=== PATIENT | female | born 1970 | race Caucasian/White ===

== ENCOUNTER 2016-09-07 08:26 | Emergency (ER) | payer OTHER ==
[~2016-09-07] VITALS: Ht 149.9 cm; Wt 113.4 kg
[~2016-09-07 08:26] MED LIST changes: -CATHETER FLUSH 10 ML SYR IV PRN; -IOHEXOL 350 MG/ML 100 ML (OMNIPAQUE 350) VIAL IV ONE; -NS 100 ML (IVPB) BAG IV ONE; -PAMI30VI8 SQ; -PANT40TA2 PO; -PROM25TA14 PO
[2016-09-07] MEDS ORDERED: INSU100V6 SQ ×2 (08:50)
[2016-09-07] MEDS ORDERED: PAMI30VI8 SQ (08:50)
[2016-09-07 09:10] LABS: MEAN CORPUSCULAR HEMOGLOBIN 30 PG (25-34); MEAN CORPUSCULAR VOLUME 89 FL (80-99); RED BLOOD COUNT 5.19 10^6/uL (4.35-5.85); WHITE BLOOD COUNT 14.3 10^3/uL (4.3-11.0)
[2016-09-07 09:11] LABS: BASOPHILS % (AUTO) 0 % (0-10); EOSINOPHILS # (AUTO) 0.2 10^3/uL (0.0-0.3); EOSINOPHILS % (AUTO) 1 % (0-10); LYMPHOCYTES # (AUTO) 3.8 X 10^3 (1.0-4.0); LYMPHOCYTES % (AUTO) 27 % (12-44); MEAN CORPUSCULAR HGB CONC 34 G/DL (32-36); MEAN PLATELET VOLUME 10.8 FL (7.4-10.4); MONOCYTES # (AUTO) 0.7 X 10^3 (0.0-1.0); MONOCYTES % (AUTO) 5 % (0-12); NEUTROPHILS # (AUTO) 9.6 X 10^3 (1.8-7.8); NEUTROPHILS % (AUTO) 67 % (42-75); PLATELET COUNT 317 10^3/uL (130-400); RED CELL DISTRIBUTION WIDTH 14.2 % (10.0-14.5)
[2016-09-07 09:12] LABS: BAND NEUTROPHILS 2 %; BASOPHILS % (MANUAL) 0 %; EOSINOPHILS % (MANUAL) 0 %; LYMPHOCYTES % (MANUAL) 24 %; NEUTROPHILS % (MANUAL) 70 %; REACTIVE LYMPHOCYTES 1 %
--- NOTE | 2016-09-07 09:23 | Diagnostic Imaging Report ---
INDICATION: Chest pain, shortness of air. Compared 05/06/2016. FINDINGS: No focal consolidation, effusion, pneumothorax, or failure pattern. IMPRESSION: No acute-appearing abnormality. Dictated by: Dictated on workstation # [id number]
[2016-09-07 09:30] LABS: ALANINE AMINOTRANSFERASE 57 U/L (0-55); ALBUMIN 3.9 G/DL (3.2-4.5); ANION GAP 13 MMOL/L (5-14); ASPARTATE AMINO TRANSFERASE 39 U/L (5-34); BILIRUBIN,TOTAL 0.6 MG/DL (0.1-1.0); BLOOD UREA NITROGEN 7 MG/DL (7-18); BUN/CREATININE RATIO 10; CALCIUM 9.2 MG/DL (8.5-10.1); CARBON DIOXIDE 24 MMOL/L (21-32); CHLORIDE 99 MMOL/L (98-107); GFR ESTIMATED > 60; GLUCOSE 300 MG/DL (70-105); SODIUM 136 MMOL/L (135-145); TOTAL PROTEIN 6.8 G/DL (6.4-8.2)
[2016-09-07 09:36] LABS: TROPONIN I < 0.30 NG/ML (<0.30)
--- NOTE | 2016-09-07 11:09 | ED Chest Pain ---
General Chief Complaint: Chest Pain Stated Complaint: CHEST PAIN Nursing Triage Note: pt reports cp starting this am after having out patient ct with contrast. Nursing Sepsis Screen: No Definite Risk Source: patient Exam Limitations: no limitations History of Present Illness Time seen by provider: 11:03 Initial Comments The patient is a 45-year-old white female patient of Dr. Vences. She had a previously scheduled abdominal CT scan this morning. We are having difficulty getting a complete report as there is a PACS problem with the Internet today. As she completed the CT scan she began to complain of central chest pain. She states there is no past history of this. She weighs 250 pounds and is short period. There is a history of diabetes as well. She smoked formerly but quit about 2 and half years ago. She still has regular menstrual periods Timing/Duration: 1-3 hours Severity/Quality: mild Location: central Prior CP/Workup: no prior chest pain Associated Symptoms: abdominal pain Allergies and Home Medications Allergies Coded Allergies: fentanyl (Verified Allergy, Intermediate, HIVES, 07/15/15) ondansetron (Verified Allergy, Intermediate, HEADACHES, 07/15/15) Sulfa (Sulfonamide Antibiotics) (Unverified Allergy, Mild, rash, 09/09/09) doxycycline (Unverified Allergy, Mild, rash, 09/09/09) Penicillins (Unverified Adverse Reaction, Intermediate, hives, 11/05/12) Home Medications Bumetanide 1 Mg Tablet, 1 MG PO DAILY, (Reported) Insulin Glargine,Hum.rec.anlog 100 Unit/1 Ml Vial, 22 UNIT SQ DAILY, (Reported) Insulin Glargine,Hum.rec.anlog 100 Unit/1 Ml Vial, 35 UNIT SQ HS, (Reported) Insulin Lispro 100 Unit/1 Ml Cartridge, 10 UNIT SQ AC, (Reported) Metoprolol Succinate 100 Mg Tab.er.24h, 100 MG PO DAILY, (Reported) Spironolactone 50 Mg Tablet, 50 MG PO BID, (Reported) Review of Systems Constitutional: see HPI EENTM: No Symptoms Reported Respiratory: No Symptoms Reported Cardiovascular: See HPI, Chest Pain Gastrointestinal: Abdominal Pain Genitourinary: No Symptoms Reported Musculoskeletal: no symptoms reported Skin: no symptoms reported Psychiatric/Neurological: No Symptoms Reported Endocrine: No Symptoms Reported Hematologic/Lymphatic: No Symptoms Reported Past Rkhwhmy-Gbuxdd-Arbvho Hx Patient Social History Alcohol Use: Rarely Uses Recreational Drug Use: No Smoking Status: Former Smoker Type Used: Cigarettes Former Smoker/When Quit: Jul 20, 2014 Recent Foreign Travel: No Contact w/Someone Who Travel: No Recent Infectious Disease Expo: No Recent Hopitalizations: No Immunizations Up To Date Tetanus Booster (TDap): Unknown Date of Pneumonia Vaccine: Mar 23, 2016 Date of Influenza Vaccine: Apr 13, 2016 Seasonal Allergies Seasonal Allergies: No Surgeries HX Surgeries: Yes (LIPOMA FROM NECK) Surgeries: Section, Gallbladder, Tonsillectomy Respiratory Hx Respiratory Disorders: Yes (USES XOPENEX IF NEEDED-HASNT USED IN LAST COUPLE YEARS) Respiratory Disorders: Asthma, Sleep Apnea Cardiovascular Hx Cardiac Disorders: Yes (HX TACHYCARDIA) Cardiac Disorders: Hypertension Neurological Hx Neurological Disorders: Yes Neurological Disorders: Neuropathy Reproductive System Hx Reproductive Disorders: Yes Sexually Transmitted Disease: No HIV/AIDS: No Female Reproductive Disorders: Polycystic Ovarian Dis Genitourinary Hx Genitourinary Disorders: Yes Genitourinary Disorders: UTI-Chronic Gastrointestinal Hx Gastrointestinal Disorders: Yes Gastrointestinal Disorders: Ulcer Musculoskeletal Hx Musculoskeletal Disorders: Yes Musculoskeletal Disorders: Arthritis Endocrine Hx Endocrine Disorders: Yes Endocrine Disorders: Diabetes, Insulin dep HEENT HX ENT Disorders: Yes (GLASSES) Loss of Vision: Bilateral Hearing Impairment: Denies Cancer Hx Cancer: No Psychosocial Hx Psychiatric Problems: No Integumentary HX Skin/Integumentary Disorder: No Blood Transfusions Hx Blood Disorders: No Adverse Reaction to a Blood Tr: No Family Medical History Significant Family History: No Pertinent Family Hx Physical Exam Vital Signs Vital Sign - Last 12Hours 09/07/16 08:43 Temp 97.6 Pulse 99 Resp 18 B/P (MAP) 116/68 Pulse Ox 96 O2 Delivery Room Air Capillary Refill : Less Than 3 Seconds General Appearance: No Apparent Distress HEENT: Normal ENT Inspection Neck: Normal Inspection Respiratory: Chest Non Tender, Lungs Clear, Normal Breath Sounds, No Accessory Muscle Use, No Respiratory Distress Cardiovascular: Regular Rate, Rhythm, No Edema, No Gallop, No JVD, No Murmur, Normal Peripheral Pulses Gastrointestinal: Tenderness Extremity: Normal Capillary Refill, Normal Inspection, Normal Range of Motion, Non Tender, No Calf Tenderness, No Pedal Edema Neurologic/Psychiatric: Alert Skin: Normal Color Lymphatic: No Adenopathy Progress/Results/Core Measures Results/Orders Lab Results Laboratory Tests Test 09/07/16 08:41 Range/Units White Blood Count 14.3 H 4.3-11.0 10^3/uL Red Blood Count 5.19 4.35-5.85 10^6/uL Hemoglobin 15.5 11.5-16.0 G/DL Hematocrit 46 35-52 % Mean Corpuscular Volume 89 80-99 FL Mean Corpuscular Hemoglobin 30 25-34 PG Mean Corpuscular Hemoglobin Concent 34 32-36 G/DL Red Cell Distribution Width 14.2 10.0-14.5 % Platelet Count 317 130-400 10^3/uL Mean Platelet Volume 10.8 H 7.4-10.4 FL Neutrophils (%) (Auto) 67 42-75 % Lymphocytes (%) (Auto) 27 12-44 % Monocytes (%) (Auto) 5 0-12 % Eosinophils (%) (Auto) 1 0-10 % Basophils (%) (Auto) 0 0-10 % Neutrophils # (Auto) 9.6 H 1.8-7.8 X 10^3 Lymphocytes # (Auto) 3.8 1.0-4.0 X 10^3 Monocytes # (Auto) 0.7 0.0-1.0 X 10^3 Eosinophils # (Auto) 0.2 0.0-0.3 10^3/uL Basophils # (Auto) 0.0 0.0-0.1 10^3/uL Neutrophils % (Manual) 70 % Lymphocytes % (Manual) 24 % Monocytes % (Manual) 3 % Eosinophils % (Manual) 0 % Basophils % (Manual) 0 % Band Neutrophils 2 % Reactive Lymphocytes 1 % Toxic Granulation 1+ Blood Morphology Comment NORMAL Sodium Level 136 135-145 MMOL/L Potassium Level 4.0 3.6-5.0 MMOL/L Chloride Level 99 98-107 MMOL/L Carbon Dioxide Level 24 21-32 MMOL/L Anion Gap 13 5-14 MMOL/L Blood Urea Nitrogen 7 7-18 MG/DL Creatinine 0.70 0.60-1.30 MG/DL Estimat Glomerular Filtration Rate > 60 BUN/Creatinine Ratio 10 Glucose Level 300 H 70-105 MG/DL Calcium Level 9.2 8.5-10.1 MG/DL Total Bilirubin 0.6 0.1-1.0 MG/DL Aspartate Amino Transf (AST/SGOT) 39 H 5-34 U/L Alanine Aminotransferase (ALT/SGPT) 57 H 0-55 U/L Alkaline Phosphatase 121 40-136 U/L Troponin I < 0.30 <0.30 NG/ML Total Protein 6.8 6.4-8.2 G/DL Albumin 3.9 3.2-4.5 G/DL My Orders Orders - SHERI MONTERO MD Ekg Tracing (09/07/16 08:57) Cbc With Automated Diff (09/07/16 08:57) Comprehensive Metabolic Panel (09/07/16 08:57) Troponin I (09/07/16 08:57) Chest 1 View, Ap/Pa Only (09/07/16 08:57) Manual Differential (09/07/16 08:41) Vital Signs/I&O Vital Sign - Last 12Hours 09/07/16 09/07/16 08:43 08:47 Temp 97.6 Pulse 99 Resp 18 B/P (MAP) 116/68 Pulse Ox 96 O2 Delivery Room Air Room Air Blood Pressure Mean: 84 Departure Communication Progress Notes EKG shows possible left atrial enlargement but is otherwise normal. Laboratory shows a minimum elevation of her transaminases. Troponin was negative. A phone report of the dictation was read to us from [place]. The patient has a previous cholecystectomy with some generalized enlargement of liver consistent with fatty liver. There was a supra umbilical hernia with some abdominal contents in the hernia sac. Impression Impression: Primary Impression: chest pain not myocardial Additional Impression: preliminary evidence of fatty liver Disposition: HOME, SELF-CARE Condition: Stable/Unchanged Departure-Patient Inst. Decision time for Depature: 11:10 Referrals: BIBIANA HINDS MD (PCP/Family) Primary Care Physician Patient Instructions: Chest Pain That Is Not Caused by the Heart (DC) Add. Discharge Instructions: All discharge instructions reviewed with patient and/or family. Voiced understanding. See your provider for full discussion of the CT findings. SHERI MONTERO MD Sep 07, 2016 11:09
[2016-09-07 11:26] VITALS: BP 123/71
--- OUTSIDE RECORDS SUMMARY | 2016-09-10 08:31 | XMS REPORT | Continuity of Care Document ---
Author Author [facility] Organization [facility] Address Unknown Phone Unavailable Care Team Providers Care Associate Spa Director Name Role Phone SELINA MICHELLE Betty RIVER PP Insurance Providers Payer Name Policy Number Subscriber Name Relationship [facility] [id number] Teresa Guan 01 Self / Same As Patient Advance Directives Directive Response Recorded Date Advance Directives N 11/28/12 10:58pm Organ Donor N 11/28/12 10:58pm Problems No Known Problems or Medical conditions. Family History History Response Recorded Date/Time Hx Family Cancer N 11/05/12 8:44pm Hx Family Cardiac Disorders Y 11/05/12 8: 44pm Social History History Response Recorded Date/Time Alcohol Use Rarely Uses 11/28/12 10:58pm Recreational Drug Use N 11/28/12 10:58pm Allergies, Adverse Reactions, Alerts Allergen Type Severity Reaction Last Updated diphenhydramine HCl Adverse Reaction Intermediate unable to breathe 11/05/12 Penicillins Adverse Reaction Intermediate hives 11/05/12 Sulfa(Sulfonamide Antibiotics) Allergy Mild rash 09/09/09 doxycycline Allergy Mild rash 09/09/09 Medications Medication Dose Units Route Sig Qty Days Hydrocodone Bit/Acetaminophen (Hydrocodon-Acetaminophen 5-325) 1 Each PO Q4H PRN 10 Acetaminophen/Hydrocodone Bitart (Vicodin 5-500 Tablet) 1 - 2 Each PO Q4HR PRN 30 Acetaminophen/Hydrocodone Bitart (Vicodin 5-500 Tablet) 1 - 2 Each PO Q4HR PRN 20 Immunizations Name Given Type Date of Pneumonia Vaccine 06/18/09 H Response Recorded Date/Time Status not known Unknown Results No Known Relevant Diagnostic Tests, Laboratory Data and/or Discharge Summary. Procedures Procedure Code Date LAPAROSCOPIC CHOLECYSTECTOMY 51.23 Encounters Encounter Location Date/Time Departed Emergency Room [facility] 10:54pm Pre-registered Emergency Room [facility] 11/28/12 7:50pm Discharged Inpatient [facility] 8:13pm
--- OUTSIDE RECORDS SUMMARY | 2016-09-10 08:31 | XMS REPORT | Continuity of Care Document ---
Author Author [facility] Address Unknown Phone Unavailable Allergies Active Description Code Type Severity Reaction Onset Reported/Identified Relationship to Patient Clinical Status Yes Claritin Drug Allergy N/A N/A 2008 Yes codeine Drug Allergy N/A N/A 2008 Yes doxycycline Drug Allergy N/A N/A 2008 Yes emycin OA N/A N/A 2008 Yes Penicillins Drug Allergy N/A N/A 2008 Yes Zyrtec Drug Allergy N/A N/A 2008 Yes Claritin Drug Allergy 2008 Yes codeine Drug Allergy 2008 Yes doxycycline Drug Allergy 2008 Yes emycin OA Yes Penicillins Drug Allergy 2008 Yes sulfa drug Drug Allergy 2008 Yes Zyrtec Drug Allergy 2008 Yes doxycycline [id number] Drug Allergy Mild rash 09/09/2009 Yes Sulfa (Sulfonamide Antibiotics) [id number] Drug Allergy Mild rash 09/09/2009 Yes diphenhydramine HCl [id number] Drug Allergy Moderate unable to breat 11/05/2012 Yes Penicillins [id number] Drug Allergy Moderate hives 11/05/2012 Yes fentanyl [id number] Drug Allergy Moderate HIVES 07/15/2015 Yes ondansetron [id number] Drug Allergy Moderate HEADACHES 07/15/2015 Medications Problems Date Dx Coded Attending Type Code Diagnosis Diagnosed By 12/31/2007 704.1 excessive facial or body hair (hirsutism) 12/31/2007 ITZ LIMA DO 704.1 excessive facial or body hair (hirsutism) 12/31/2007 704.1 excessive facial or body hair (hirsutism) 12/31/2007 704.1 excessive facial or body hair (hirsutism) 12/31/2007 704.1 excessive facial or body hair (hirsutism) 12/31/2007 704.1 excessive facial or body hair (hirsutism) 12/31/2007 704.1 excessive facial or body hair (hirsutism) 12/31/2007 ITZ LIMA DO 704.1 excessive facial or body hair (hirsutism) 02/11/2008 599.0 Urinary Tract Infection 02/11/2008 788.1 Dysuria 02/11/2008 ITZ LIMA DO 599.0 Urinary Tract Infection 02/11/2008 ITZ LIMA DO 788.1 Dysuria 02/11/2008 599.0 Urinary Tract Infection 02/11/2008 788.1 Dysuria 02/11/2008 599.0 Urinary Tract Infection 02/11/2008 788.1 Dysuria 02/11/2008 599.0 Urinary Tract Infection 02/11/2008 788.1 Dysuria 02/11/2008 599.0 Urinary Tract Infection 02/11/2008 788.1 Dysuria 02/11/2008 599.0 Urinary Tract Infection 02/11/2008 788.1 Dysuria 02/11/2008 ITZ LIMA DO 599.0 Urinary Tract Infection 02/11/2008 ITZ LIMA DO 788.1 Dysuria 2008 493.00 EXTRINSIC ASTHMA UNSPECIFIED 2008 ITZ LIMA DO 493.00 EXTRINSIC ASTHMA UNSPECIFIED 2008 493.00 EXTRINSIC ASTHMA UNSPECIFIED 2008 493.00 EXTRINSIC ASTHMA UNSPECIFIED 2008 493.00 EXTRINSIC ASTHMA UNSPECIFIED 2008 493.00 EXTRINSIC ASTHMA UNSPECIFIED 2008 493.00 EXTRINSIC ASTHMA UNSPECIFIED 2008 ITZ LIMA DO 493.00 EXTRINSIC ASTHMA UNSPECIFIED 11/02/2008 465.9 Upper Respiratory Infection 11/02/2008 ITZ LIMA DO 465.9 Upper Respiratory Infection 11/02/2008 465.9 Upper Respiratory Infection 11/02/2008 465.9 Upper Respiratory Infection 11/02/2008 465.9 Upper Respiratory Infection 11/02/2008 465.9 Upper Respiratory Infection 11/02/2008 465.9 Upper Respiratory Infection 11/02/2008 ITZ LIMA DO 465.9 Upper Respiratory Infection 12/05/2008 251.1 HYPERINSULINISM (EXOGENOUS) 12/05/2008 783.1 Recent Weight Gain (___ Lbs) [reported] 12/05/2008 ITZ LIMA DO 251.1 HYPERINSULINISM (EXOGENOUS) 12/05/2008 ITZ LIMA DO 783.1 Recent Weight Gain (___ Lbs) [reported] 12/05/2008 251.1 HYPERINSULINISM (EXOGENOUS) 12/05/2008 783.1 Recent Weight Gain (___ Lbs) [reported] 12/05/2008 251.1 HYPERINSULINISM (EXOGENOUS) 12/05/2008 783.1 Recent Weight Gain (___ Lbs) [reported] 12/05/2008 251.1 HYPERINSULINISM (EXOGENOUS) 12/05/2008 783.1 Recent Weight Gain (___ Lbs) [reported] 12/05/2008 251.1 HYPERINSULINISM (EXOGENOUS) 12/05/2008 783.1 Recent Weight Gain (___ Lbs) [reported] 12/05/2008 251.1 HYPERINSULINISM (EXOGENOUS) 12/05/2008 783.1 Recent Weight Gain (___ Lbs) [reported] 12/05/2008 ITZ LIMA DO 251.1 HYPERINSULINISM (EXOGENOUS) 12/05/2008 ITZ LIMA DO 783.1 Recent Weight Gain (___ Lbs) [reported] 02/23/2009 V03.82 Pcv7 Pcv23, Streptococcus Pneumoniae [pneumococcus] 02/23/2009 ITZ LIMA DO V03.82 Pcv7 Pcv23, Streptococcus Pneumoniae [ pneumococcus] 02/23/2009 V03.82 Pcv7 Pcv23, Streptococcus Pneumoniae [pneumococcus] 02/23/2009 V03.82 Pcv7 Pcv23, Streptococcus Pneumoniae [pneumococcus] 02/23/2009 V03.82 Pcv7 Pcv23, Streptococcus Pneumoniae [pneumococcus] 02/23/2009 V03.82 Pcv7 Pcv23, Streptococcus Pneumoniae [pneumococcus] 02/23/2009 V03.82 Pcv7 Pcv23, Streptococcus Pneumoniae [pneumococcus] 02/23/2009 ITZ LIMA DO V03.82 Pcv7 Pcv23, Streptococcus Pneumoniae [ pneumococcus] 03/02/2009 724.1 Midback Pain 03/02/2009 ITZ LIMA DO 724.1 Midback Pain 03/02/2009 724.1 Midback Pain 03/02/2009 724.1 Midback Pain 03/02/2009 724.1 Midback Pain 03/02/2009 724.1 Midback Pain 03/02/2009 724.1 Midback Pain 03/02/2009 ITZ LIMA DO 724.1 Midback Pain 05/21/2009 786.2 Cough 05/21/2009 ITZ LIMA DO 786.2 Cough 05/21/2009 786.2 Cough 05/21/2009 786.2 Cough 05/21/2009 786.2 Cough 05/21/2009 786.2 Cough 05/21/2009 786.2 Cough 05/21/2009 ITZ LIMA DO 786.2 Cough 07/23/2009 724.2 Lower Back Pain 07/23/2009 959.19 Injury, Other And Unspecified, Other Sites Of Trunk 07/23/2009 ITZ LIMA DO 724.2 Lower Back Pain 07/23/2009 ITZ LIMA DO 959.19 Injury, Other And Unspecified, Other Sites Of Trunk 07/23/2009 724.2 Lower Back Pain 07/23/2009 959.19 Injury, Other And Unspecified, Other Sites Of Trunk 07/23/2009 724.2 Lower Back Pain 07/23/2009 959.19 Injury, Other And Unspecified, Other Sites Of Trunk 07/23/2009 724.2 Lower Back Pain 07/23/2009 959.19 Injury, Other And Unspecified, Other Sites Of Trunk 07/23/2009 724.2 Lower Back Pain 07/23/2009 959.19 Injury, Other And Unspecified, Other Sites Of Trunk 07/23/2009 724.2 Lower Back Pain 07/23/2009 959.19 Injury, Other And Unspecified, Other Sites Of Trunk 07/23/2009 ITZ LIMA DO 724.2 Lower Back Pain 07/23/2009 ITZ LIMA DO 959.19 Injury, Other And Unspecified, Other Sites Of Trunk 08/26/2009 787.02 Nausea Alone 08/26/2009 ITZ LIMA DO 787.02 Nausea Alone 08/26/2009 787.02 Nausea Alone 08/26/2009 787.02 Nausea Alone 08/26/2009 787.02 Nausea Alone 08/26/2009 787.02 Nausea Alone 08/26/2009 787.02 Nausea Alone 08/26/2009 LIMA KRISTIAN MORENOA K 787.02 Nausea Alone 09/11/2009 719.46 Pain In Joint, Lower Leg 09/11/2009 959.7 Injury, Other And Unspecified, Knee, Leg, Ankle, And Foot 09/11/2009 E987.9 Falling From Unspecified Site, Undetermined Whether Accidentally Or Purposely Inflicted 09/11/2009 ITZ LIMA DO 719.46 Pain In Joint, Lower Leg 09/11/2009 LIMA DOITZ K 959.7 Injury, Other And Unspecified, Knee, Leg, Ankle, And Foot 09/11/2009 LIMA KRISTIAN MORENOA Tova E987.9 Falling From Unspecified Site, Undetermined Whether Accidentally Or Purposely Inflicted 09/11/2009 719.46 Pain In Joint, Lower Leg 09/11/2009 959.7 Injury, Other And Unspecified, Knee, Leg, Ankle, And Foot 09/11/2009 E987.9 Falling From Unspecified Site, Undetermined Whether Accidentally Or Purposely Inflicted 09/11/2009 719.46 Pain In Joint, Lower Leg 09/11/2009 959.7 Injury, Other And Unspecified, Knee, Leg, Ankle, And Foot 09/11/2009 E987.9 Falling From Unspecified Site, Undetermined Whether Accidentally Or Purposely Inflicted 09/11/2009 719.46 Pain In Joint, Lower Leg 09/11/2009 959.7 Injury, Other And Unspecified, Knee, Leg, Ankle, And Foot 09/11/2009 E987.9 Falling From Unspecified Site, Undetermined Whether Accidentally Or Purposely Inflicted 09/11/2009 719.46 Pain In Joint, Lower Leg 09/11/2009 959.7 Injury, Other And Unspecified, Knee, Leg, Ankle, And Foot 09/11/2009 E987.9 Falling From Unspecified Site, Undetermined Whether Accidentally Or Purposely Inflicted 09/11/2009 719.46 Pain In Joint, Lower Leg 09/11/2009 959.7 Injury, Other And Unspecified, Knee, Leg, Ankle, And Foot 09/11/2009 E987.9 Falling From Unspecified Site, Undetermined Whether Accidentally Or Purposely Inflicted 09/11/2009 ITZ LIMA DO 719.46 Pain In Joint, Lower Leg 09/11/2009 ITZ LIMA DO 959.7 Injury, Other And Unspecified, Knee, Leg, Ankle, And Foot 09/11/2009 ITZ LIMA DO E987.9 Falling From Unspecified Site, Undetermined Whether Accidentally Or Purposely Inflicted 10/16/2009 278.00 OBESITY, UNSPECIFIED 10/16/2009 692.9 Contact Dermatitis And Other Eczema, Unspecified Cause 10/16/2009 ITZ LIMA DO 278.00 OBESITY, UNSPECIFIED 10/16/2009 ITZ LIMA DO 692.9 Contact Dermatitis And Other Eczema, Unspecified Cause 10/16/2009 278.00 OBESITY, UNSPECIFIED 10/16/2009 692.9 Contact Dermatitis And Other Eczema, Unspecified Cause 10/16/2009 278.00 OBESITY, UNSPECIFIED 10/16/2009 692.9 Contact Dermatitis And Other Eczema, Unspecified Cause 10/16/2009 278.00 OBESITY, UNSPECIFIED 10/16/2009 692.9 Contact Dermatitis And Other Eczema, Unspecified Cause 10/16/2009 278.00 OBESITY, UNSPECIFIED 10/16/2009 692.9 Contact Dermatitis And Other Eczema, Unspecified Cause 10/16/2009 278.00 OBESITY, UNSPECIFIED 10/16/2009 692.9 Contact Dermatitis And Other Eczema, Unspecified Cause 10/16/2009 ITZ LIMA DO 278.00 OBESITY, UNSPECIFIED 10/16/2009 ITZ LIMA DO 692.9 Contact Dermatitis And Other Eczema, Unspecified Cause 04/20/2011 305.1 NONDEPENDENT TOBACCO USE DISORDER 04/20/2011 V72.31 Agency Development Manager Exam, Routine 04/20/2011 V76.2 Cervical Cancer Screening (pap Smear) 04/20/2011 ITZ LIMA DO 305.1 NONDEPENDENT TOBACCO USE DISORDER 04/20/2011 ITZ LIMA DO V72.31 Agency Development Manager Exam, Routine 04/20/2011 ITZ LIMA DO V76.2 Cervical Cancer Screening (pap Smear) 04/20/2011 305.1 NONDEPENDENT TOBACCO USE DISORDER 04/20/2011 V72.31 Agency Development Manager Exam, Routine 04/20/2011 V76.2 Cervical Cancer Screening (pap Smear) 04/20/2011 305.1 NONDEPENDENT TOBACCO USE DISORDER 04/20/2011 V72.31 Agency Development Manager Exam, Routine 04/20/2011 V76.2 Cervical Cancer Screening (pap Smear) 04/20/2011 305.1 NONDEPENDENT TOBACCO USE DISORDER 04/20/2011 V72.31 Agency Development Manager Exam, Routine 04/20/2011 V76.2 Cervical Cancer Screening (pap Smear) 04/20/2011 305.1 NONDEPENDENT TOBACCO USE DISORDER 04/20/2011 V72.31 Agency Development Manager Exam, Routine 04/20/2011 V76.2 Cervical Cancer Screening (pap Smear) 04/20/2011 305.1 NONDEPENDENT TOBACCO USE DISORDER 04/20/2011 V72.31 Agency Development Manager Exam, Routine 04/20/2011 V76.2 Cervical Cancer Screening (pap Smear) 04/20/2011 ITZ LIMA DO 305.1 NONDEPENDENT TOBACCO USE DISORDER 04/20/2011 ITZ LIMA DO V72.31 Agency Development Manager Exam, Routine 04/20/2011 ITZ LIMA DO V76.2 Cervical Cancer Screening (pap Smear) 06/05/2011 847.9 Sprain/strain Back Unspec 06/05/2011 ITZ LIMA DO 847.9 Sprain/strain Back Unspec 06/05/2011 847.9 Sprain/strain Back Unspec 06/05/2011 847.9 Sprain/strain Back Unspec 06/05/2011 847.9 Sprain/strain Back Unspec 06/05/2011 847.9 Sprain/strain Back Unspec 06/05/2011 847.9 Sprain/strain Back Unspec 06/05/2011 ITZ LIMA DO 847.9 Sprain/strain Back Unspec 07/25/2011 381.81 Eustachian Tube Dysfunction 07/25/2011 780.79 Malaise And Fatigue 07/25/2011 ITZ LIMA DO 381.81 Eustachian Tube Dysfunction 07/25/2011 ITZ LIMA DO 780.79 Malaise And Fatigue 07/25/2011 381.81 Eustachian Tube Dysfunction 07/25/2011 780.79 Malaise And Fatigue 07/25/2011 381.81 Eustachian Tube Dysfunction 07/25/2011 780.79 Malaise And Fatigue 07/25/2011 381.81 Eustachian Tube Dysfunction 07/25/2011 780.79 Malaise And Fatigue 07/25/2011 381.81 Eustachian Tube Dysfunction 07/25/2011 780.79 Malaise And Fatigue 07/25/2011 381.81 Eustachian Tube Dysfunction 07/25/2011 780.79 Malaise And Fatigue 07/25/2011 ITZ LIMA DO 381.81 Eustachian Tube Dysfunction 07/25/2011 ITZ LIMA DO 780.79 Malaise And Fatigue 08/05/2011 288.60 Leukocytosis 08/05/2011 ITZ LIMA DO 288.60 Leukocytosis 08/05/2011 288.60 Leukocytosis 08/05/2011 288.60 Leukocytosis 08/05/2011 288.60 Leukocytosis 08/05/2011 288.60 Leukocytosis 08/05/2011 288.60 Leukocytosis 08/05/2011 ITZ LIMA DO 288.60 Leukocytosis 08/18/2011 487.1 Influenza 08/18/2011 786.2 Cough 08/18/2011 ITZ LIMA DO 487.1 Influenza 08/18/2011 ITZ LIMA DO 786.2 Cough 08/18/2011 487.1 Influenza 08/18/2011 786.2 Cough 08/18/2011 487.1 Influenza 08/18/2011 786.2 Cough 08/18/2011 487.1 Influenza 08/18/2011 786.2 Cough 08/18/2011 487.1 Influenza 08/18/2011 786.2 Cough 08/18/2011 487.1 Influenza 08/18/2011 786.2 Cough 08/18/2011 ITZ LIMA DO 487.1 Influenza 08/18/2011 ITZ LIMA DO 786.2 Cough 01/11/2012 256.4 POLYCYSTIC OVARIAN SYNDROME 01/11/2012 626.8 DYSFUNCTIONAL UTERINE BLEEDING 01/11/2012 ITZ LIMA DO 256.4 POLYCYSTIC OVARIAN SYNDROME 01/11/2012 ITZ LIMA DO 626.8 DYSFUNCTIONAL UTERINE BLEEDING 01/11/2012 256.4 POLYCYSTIC OVARIAN SYNDROME 01/11/2012 626.8 DYSFUNCTIONAL UTERINE BLEEDING 01/11/2012 256.4 POLYCYSTIC OVARIAN SYNDROME 01/11/2012 626.8 DYSFUNCTIONAL UTERINE BLEEDING 01/11/2012 256.4 POLYCYSTIC OVARIAN SYNDROME 01/11/2012 626.8 DYSFUNCTIONAL UTERINE BLEEDING 01/11/2012 256.4 POLYCYSTIC OVARIAN SYNDROME 01/11/2012 626.8 DYSFUNCTIONAL UTERINE BLEEDING 01/11/2012 256.4 POLYCYSTIC OVARIAN SYNDROME 01/11/2012 626.8 DYSFUNCTIONAL UTERINE BLEEDING 01/11/2012 ITZ LIMA DO 256.4 POLYCYSTIC OVARIAN SYNDROME 01/11/2012 ITZ LIMA DO 626.8 DYSFUNCTIONAL UTERINE BLEEDING 01/29/2012 626.4 IRREGULAR MENSTRUAL CYCLE 01/29/2012 724.5 BACKACHE UNSPECIFIED 01/29/2012 783.1 recent weight gain (___ lbs) [reported] 01/29/2012 V65.3 COUNSELING - DIETARY 01/29/2012 V65.42 COUNSELING - SMOKING CESSATION 01/29/2012 ITZ LIMA DO 626.4 IRREGULAR MENSTRUAL CYCLE 01/29/2012 ITZ LIMA DO 724.5 BACKACHE UNSPECIFIED 01/29/2012 ITZ LIMA DO 783.1 recent weight gain (___ lbs) [reported] 01/29/2012 ITZ LMIA DO V65.3 COUNSELING - DIETARY 01/29/2012 ITZ LIMA DO V65.42 COUNSELING - SMOKING CESSATION 01/29/2012 626.4 IRREGULAR MENSTRUAL CYCLE 01/29/2012 724.5 BACKACHE UNSPECIFIED 01/29/2012 783.1 recent weight gain (___ lbs) [reported] 01/29/2012 V65.3 COUNSELING - DIETARY 01/29/2012 V65.42 COUNSELING - SMOKING CESSATION 01/29/2012 626.4 IRREGULAR MENSTRUAL CYCLE 01/29/2012 724.5 BACKACHE UNSPECIFIED 01/29/2012 783.1 recent weight gain (___ lbs) [reported] 01/29/2012 V65.3 COUNSELING - DIETARY 01/29/2012 V65.42 COUNSELING - SMOKING CESSATION 01/29/2012 626.4 IRREGULAR MENSTRUAL CYCLE 01/29/2012 724.5 BACKACHE UNSPECIFIED 01/29/2012 783.1 recent weight gain (___ lbs) [reported] 01/29/2012 V65.3 COUNSELING - DIETARY 01/29/2012 V65.42 COUNSELING - SMOKING CESSATION 01/29/2012 626.4 IRREGULAR MENSTRUAL CYCLE 01/29/2012 724.5 BACKACHE UNSPECIFIED 01/29/2012 783.1 recent weight gain (___ lbs) [reported] 01/29/2012 V65.3 COUNSELING - DIETARY 01/29/2012 V65.42 COUNSELING - SMOKING CESSATION 01/29/2012 626.4 IRREGULAR MENSTRUAL CYCLE 01/29/2012 724.5 BACKACHE UNSPECIFIED 01/29/2012 783.1 recent weight gain (___ lbs) [reported] 01/29/2012 V65.3 COUNSELING - DIETARY 01/29/2012 V65.42 COUNSELING - SMOKING CESSATION 01/29/2012 LIMA DO ITZ K 626.4 IRREGULAR MENSTRUAL CYCLE 01/29/2012 LIMA DO ITZ K 724.5 BACKACHE UNSPECIFIED 01/29/2012 CLARENCE MORENO ITZ K 783.1 recent weight gain (___ lbs) [reported] 01/29/2012 LIMA DO ITZ K V65.3 COUNSELING - DIETARY 01/29/2012 LIMA DO ITZ K V65.42 COUNSELING - SMOKING CESSATION 06/10/2012 ITZ LIMA DO 719.47 PAIN IN JOINT INVOLVING ANKLE AND FOOT 06/10/2012 719.47 PAIN IN JOINT INVOLVING ANKLE AND FOOT 06/10/2012 719.47 PAIN IN JOINT INVOLVING ANKLE AND FOOT 06/10/2012 719.47 PAIN IN JOINT INVOLVING ANKLE AND FOOT 06/10/2012 719.47 PAIN IN JOINT INVOLVING ANKLE AND FOOT 06/10/2012 719.47 PAIN IN JOINT INVOLVING ANKLE AND FOOT 06/10/2012 LIMA DO ITZ K 719.47 PAIN IN JOINT INVOLVING ANKLE AND FOOT 07/22/2012 466.0 BRONCHITIS, ACUTE 07/22/2012 466.0 BRONCHITIS, ACUTE 07/22/2012 466.0 BRONCHITIS, ACUTE 07/22/2012 466.0 BRONCHITIS, ACUTE 07/22/2012 466.0 BRONCHITIS, ACUTE 07/22/2012 KRISTIAN LIMA DOA K 466.0 BRONCHITIS, ACUTE 11/08/2012 TASNEEM THOMASON, NICHOLAS Duncan Ot 278.01 MORBID OBESITY 11/08/2012 NICHOLSA BOATENG MD Ot 305.1 TOBACCO USE DISORDER 11/08/2012 NICHOLAS BOATENG MD Ot 575.11 CHRONIC CHOLECYSTITIS 11/08/2012 NICHOLAS BOATENG MD Ot 575.8 DIS OF GALLBLADDER NEC 11/08/2012 NICHOLAS BOATENG MD Ot V85.42 BODY MASS INDEX 45.0-49.9, ADULT 11/12/2012 786.07 WHEEZING 11/12/2012 786.07 WHEEZING 11/12/2012 786.07 WHEEZING 11/12/2012 786.07 WHEEZING 11/12/2012 CLARENCE MORENOITZ Tova 786.07 WHEEZING 11/29/2012 PRAKASH DEMARCO Ot 789.01 ABDOMINAL PAIN, RIGHT UPPER QUADRANT 11/29/2012 PRAKASH DEMARCO Ot V45.89 POSTSURGICAL STATES NEC 12/02/2012 575.11 CHOLECYSTITIS, CHRONIC 12/02/2012 575.11 CHOLECYSTITIS, CHRONIC 12/02/2012 ITZ LIMA DO K 575.11 CHOLECYSTITIS, CHRONIC 02/01/2013 KATHARINA MENDOZA DRY HOUSE TENDER Ot 327.23 OBSTRUCTIVE SLEEP APNEA (ADULT) ( PEDIATR 02/24/2013 OBI THOMASON, WILLY Castillo Ot 530.10 ESOPHAGITIS NOS 02/24/2013 OBI THOMASON, WILLY Castillo Ot 532.90 DUODENAL ULCER NOS 02/24/2013 OBI THOMASON, WILLY Castillo Ot 535.40 OTH SPECIFIED GASTRITIS,W/O MENTION OF H 05/17/2013 ITZ LIMA DO V04.81 FLU SHOT 07/14/2015 ARTHUR CAMPOSP Ot M25.562 08/19/2015 REDD THOMASON, YAA Marie Ot I10 08/19/2015 REDD THOMASON, YAA Marie Ot M22.42 08/19/2015 REDD THOMASON, YAA Marie Ot M23.312 08/19/2015 REDD THOMASON, YAA Marie Ot Z11.2 08/19/2015 REDD THOMASON, YAA Marie Ot Z79.899 09/19/2015 Ot G47.33 OBSTRUCTIVE SLEEP APNEA (ADULT) (PEDIATR 09/19/2015 Ot G47.61 PERIODIC LIMB MOVEMENT DISORDER 09/21/2015 Ot G47.33 09/21/2015 Ot G47.61 10/05/2015 REDD THOMASON, YAA Marie Ot I10 ESSENTIAL (PRIMARY) HYPERTENSION 10/05/2015 REDD THOMASON, YAA Marie Ot M22.42 CHONDROMALACIA PATELLAE, LEFT KNEE 10/05/2015 REDD THOMASON, YAA Marie Ot M23.312 OTH MENISCUS DERANG, ANT HORN OF MEDIAL 10/05/2015 YAA RAINEY MD Ot Z11.2 ENCOUNTER FOR SCREENING FOR OTHER BACTER 10/05/2015 YAA RAINEY MD Ot Z79.899 OTHER CLINICAL NURSING INSTRUCTOR (CURRENT) DRUG THERAPY 11/22/2015 Ot 256.4 POLYCYSTIC OVARIES 11/22/2015 Ot 626.8 MENSTRUAL DISORDER NEC 11/22/2015 Ot 845.09 SPRAIN OF ANKLE NEC 11/22/2015 Ot E000.8 OTHER EXTERNAL CAUSE STATUS 11/22/2015 Ot E928.9 ACCIDENT NOS 11/22/2015 ALEXANDRO MENDOZA DO Ot 787.3 FLATUL/ERUCTAT/GAS PAIN 11/22/2015 ALEXANDRO MENDOZA DO Ot 789.01 ABDOMINAL PAIN, RIGHT UPPER QUADRANT 11/22/2015 KATHARINA MENDOZA DRY HOUSE TENDER Ot 240.9 GOITER NOS 11/22/2015 KATHARINA MENDOZA DRY HOUSE TENDER Ot 256.4 POLYCYSTIC OVARIES 11/22/2015 KATHARINA MENDOZA DRY HOUSE TENDER Ot 268.9 VITAMIN D DEFICIENCY NOS 11/22/2015 KATHARINA MENDOZA DRY HOUSE TENDER Ot 626.0 ABSENCE OF MENSTRUATION 11/22/2015 KATHARINA MENDOZA DRY HOUSE TENDER Ot 704.1 HIRSUTISM 11/22/2015 KATHARINA MENDOZA DRY HOUSE TENDER Ot 719.40 JOINT PAIN-UNSPEC 11/22/2015 KATHARINA MENDOZA DRY HOUSE TENDER Ot 780.52 INSOMNIA, UNSPECIFIED 11/22/2015 KATHARINA MENDOZA DRY HOUSE TENDER Ot 782.3 EDEMA 11/22/2015 OBI THOMASON, WILLY Castillo Ot V72.84 EXAM PRE-OPERATIVE NOS 03/02/2016 FAHAD ALARCON TRAFFIC CIRCUIT ENGINEER Ot R22.32 LOCALIZED SWELLING, MASS AND LUMP, LEFT 03/15/2016 FAHAD ALARCON TRAFFIC CIRCUIT ENGINEER Ot R22.32 LOCALIZED SWELLING, MASS AND LUMP, LEFT 05/06/2016 JUWAN THOMASON, SANDRA Medina Ot E11.65 TYPE 2 DIABETES MELLITUS WITH HYPERGLYCE 05/06/2016 JUWAN THOMASON, SANDRA Medina Ot I10 ESSENTIAL (PRIMARY) HYPERTENSION 05/06/2016 JUWAN THOMASON, SANDRA Medina Ot R00.0 TACHYCARDIA, UNSPECIFIED 05/06/2016 JUWAN THOMASON, SANDRA Medina Ot Z79.4 CLINICAL NURSING INSTRUCTOR (CURRENT) USE OF INSULIN 05/06/2016 SANDRA ECHEVERRIA MD Ot Z87.891 PERSONAL HISTORY OF NICOTINE DEPENDENCE 05/06/2016 ARTHUR CAMPOS PERICO Ot M25.562 PAIN IN LEFT KNEE 05/06/2016 YAA RAINEY MD, Ot I10 ESSENTIAL (PRIMARY) HYPERTENSION 05/06/2016 YAA RAINEY MD Ot M22.42 CHONDROMALACIA PATELLAE, LEFT KNEE 05/06/2016 YAA RAINEY MD, Ot M23.312 OTH MENISCUS DERANG, ANT HORN OF MEDIAL 05/06/2016 YAA RAINEY MD Ot Z11.2 ENCOUNTER FOR SCREENING FOR OTHER BACTER 05/06/2016 AYA RAINEY MD, Ot Z79.899 OTHER CLINICAL NURSING INSTRUCTOR (CURRENT) DRUG THERAPY 05/06/2016 YAA RAINEY MD, Ot M23.8X2 OTHER INTERNAL DERANGEMENTS OF LEFT KNEE 05/06/2016 YAA RAINEY MD, Ot Z01.818 ENCOUNTER FOR OTHER PREPROCEDURAL EXAMIN 05/06/2016 FAHAD ALARCON APRN Ot R22.32 LOCALIZED SWELLING, MASS AND LUMP, LEFT 05/08/2016 SANDRA ECHEVERRIA MD Ot E11.65 TYPE 2 DIABETES MELLITUS WITH HYPERGLYCE 05/08/2016 SANDRA ECHEVERRIA MD Ot I10 ESSENTIAL (PRIMARY) HYPERTENSION 05/08/2016 SANDRA ECHEVERRIA MD Ot R00.0 TACHYCARDIA, UNSPECIFIED 05/08/2016 SANDRA ECHEVERRIA MD Ot Z79.4 CLINICAL NURSING INSTRUCTOR (CURRENT) USE OF INSULIN 05/08/2016 SANDRA ECHEVERRIA MD Ot Z87.891 PERSONAL HISTORY OF NICOTINE DEPENDENCE Procedures Code Description [place] [address] MRI EXTREMITY JOINT, LOWER LEFT, W/O CONTRAST 06/14/2012 51.23 11/07/2012 35177 XRAY CHEST 2 VIEW 11/12/2012 63556 CMP 11/19/2012 72880 LIPID PANEL 11/19 60907 A1C (RML) 2012 33485 TSH 11/19/2012 28836 CBC 11/19/2012 01692 PULMONARY FUNCTION TEST (IN-HOUSE) 11/19/2012 Willy Brown 12/20/2012 Encounters ACCT No. Visit Date/Time Discharge Status Pt. Type Provider Facility Loc./Unit Complaint [id number] 05/17/2013 12:57:00 05/17/2013 23: 59:59 CLS Outpatient ITZ LIMA DO [id number] 07/22/2012 14:11:00 07/22/2012 23: 59:59 CLS Outpatient [id number] 06/10/2012 11:54:00 06/10/2012 23: 59:59 CLS Outpatient ITZ LIMA DO [id number] 01/29/2012 14:35:00 01/29/2012 23:59 :59 CLS Outpatient [id number] 12/16/2012 17:14:00 Document Registration [id number] 12/02/2012 16:48:00 Document Registration [id number] 11/19/2012 17:41:00 Document Registration [id number] 11/12/2012 15:43:00 Document Registration
--- OUTSIDE RECORDS SUMMARY | 2016-09-10 08:32 | XMS REPORT | Continuity of Care Document ---
Author Author [facility] Organization [facility] Address Unknown Phone Unavailable Care Team Providers Care Shredding Floor Equipment Operator Name Role Phone MICHELLE MARKS Betty RIVER PP Insurance Providers Payer Name Policy Number Subscriber Name Relationship [facility] [id number] Teresa Guan 01 Self / Same As Patient Advance Directives Directive Response Recorded Date Advance Directives N 11/05/12 8:42pm Problems No Known Problems or Medical conditions. Family History History Response Recorded Date/Time Hx Family Cancer N 11/05/12 8:44pm Social History History Response Recorded Date/Time Alcohol Use Rarely Uses 11/05/12 8:41pm Recreational Drug Use N 11/05/12 8:41pm Allergies, Adverse Reactions, Alerts Allergen Type Severity Reaction Last Updated diphenhydramine HCl Adverse Reaction Intermediate unable to breathe 11/05/12 Penicillins Adverse Reaction Intermediate hives 11/05/12 Sulfa(Sulfonamide Antibiotics) Allergy Mild rash 09/09/09 doxycycline Allergy Mild rash 09/09/09 Medications Medication Dose Units Route Sig Qty Days Acetaminophen/Hydrocodone Bitart (Vicodin 5-500 Tablet) 1 - 2 Each PO Q4HR PRN 30 Acetaminophen/Hydrocodone Bitart (Vicodin 5-500 Tablet) 1 - 2 Each PO Q4HR PRN 20 Immunizations Name Given Type Date of Pneumonia Vaccine 10/16/10 H Response Recorded Date/Time Status not known Unknown Results Test Date Result Interp. Ref. Range Activated Partial Thromboplast Time November 05, 2012 2:10pm 36 SEC H 24-35 Alanine Aminotransferase (ALT/SGPT) November 05, 2012 2:10pm 70 U/L H 30-65 Albumin November 05, 2012 2:10pm 3.6 G/DL N 3.4-5.0 Alkaline Phosphatase November 05, 2012 2:10pm 105 U/L N 50-136 Amylase Level November 05, 2012 2:10pm 29 U/ L N 25-115 Aspartate Amino Transf (AST/SGOT) November 05, 2012 2:10pm 36 U/L N 15-37 BUN/Creatinine Ratio November 05, 2012 2:10pm 13 - Band Neutrophils November 05, 2012 2:10pm 1 % - Basophils # (Auto) November 05, 2012 2:10pm 0.1 10^3/uL N 0.0-0.1 Basophils % (Manual) November 05, 2012 2:10pm 0 % - Basophils (%) (Auto) November 05, 2012 2:10pm 0 % N 0-10 Blood Urea Nitrogen November 05, 2012 2:10pm 10 MG/DL N 7-18 C-Reactive Protein November 05, 2012 2:10pm 3.2 MG/DL H 0.2-0.9 Calcium Level November 05, 2012 2:10pm 8.9 MG /DL N 8.5-10.1 Carbon Dioxide Level November 05, 2012 2:10pm 32 MMOL/L N 21-32 Chloride Level November 05, 2012 2:10pm 102 MMOL/L N 101-110 Creatine Kinase MB November 05, 2012 2:10pm 0.2 NG/ML N 0.0-3.6 Creatinine November 05, 2012 2:10pm 0.8 MG/ DL N 0.6-1.3 D-Dimer November 05, 2012 2:10pm 0.33 UG/ML N 0.00-0.49 Eosinophils # (Auto) November 05, 2012 2:10pm 0.2 10^3/uL N 0.0-0.3 Eosinophils % (Manual) November 05, 2012 2:10pm 2 % - Eosinophils (%) (Auto) November 05, 2012 2:10pm 1 % N 0-10 Glucose Level November 05, 2012 2:10pm 112 MG /DL H 74-106 Hematocrit November 05, 2012 2:10pm 44 % N 35-52 Hemoglobin November 05, 2012 2:10pm 14.7 G/ DL N 11.5-16.0 Lipase November 05, 2012 2:10pm 111 U/L N 73-393 Lymphocytes # (Auto) November 05, 2012 2:10pm 3.6 X 10^3 N 1.0-4.0 Lymphocytes % (Manual) November 05, 2012 2:10pm 13 % - Lymphocytes (%) (Auto) November 05, 2012 2:10pm 22 % N 12-44 Magnesium Level November 05, 2012 2:10pm 1.8 MG/DL N 1.8-2.4 Mean Corpuscular Hemoglobin November 05, 2012 2:10pm 31 PG N 25-34 Mean Corpuscular Hemoglobin Concent November 05, 2012 2:10pm 34 G/DL N 32-36 Mean Corpuscular Volume November 05, 2012 2:10pm 91 FL N 80-99 Mean Platelet Volume November 05, 2012 2:10pm 10.4 FL N 7.4-10.4 Monocytes # (Auto) November 05, 2012 2:10pm 0.8 X 10^3 N 0.0-1.0 Monocytes % (Manual) November 05, 2012 2:10pm 2 % - Monocytes (%) (Auto) November 05, 2012 2:10pm 5 % N 0-12 Myoglobin November 05, 2012 2:10pm 22 UG/L N 10-92 Neutrophils # (Auto) November 05, 2012 2:10pm 11.4 X 10^3 H 1.8-7.8 Neutrophils % (Manual) November 05, 2012 2:10pm 82 % - Neutrophils (%) (Auto) November 05, 2012 2:10pm 71 % N 42-75 Platelet Count November 05, 2012 2:10pm 394 10^3/uL N 130-400 Potassium Level November 05, 2012 2:10pm 3.9 MMOL/L N 3.6-5.0 Prothrombin Time November 05, 2012 2:10pm 12.6 SEC N 12.2-14.7 Red Blood Count November 05, 2012 2:10pm 4.81 10^6/uL N 4.35-5.85 Red Cell Distribution Width November 05, 2012 2:10pm 13.6 % N 10.0-14.5 Sodium Level November 05, 2012 2:10pm 136 MMOL/L N 135-145 Total Bilirubin November 05, 2012 2:10pm 0.3 MG/DL N 0.0-1.0 Total Creatine Kinase November 05, 2012 2:10pm 68 U/L N 1-159 Total Protein November 05, 2012 2:10pm 7.3 G/ DL N 6.4-8.2 Troponin I November 05, 2012 2:10pm < 0.10 NG /ML 0.00-0.10 Urine Bacteria November 05, 2012 1:35pm NEGATIVE /HPF - Urine Bilirubin November 05, 2012 1:35pm NEGATIVE - Urine Casts November 05, 2012 1:35pm NONE / LPF - Urine Clarity November 05, 2012 1:35pm CLEAR - Urine Color November 05, 2012 1:35pm YELLOW - Urine Crystals November 05, 2012 1:35pm NONE /LPF - Urine Culture Indicated November 05, 2012 1:35pm NO - Urine Glucose (UA) November 05, 2012 1:35pm NEGATIVE - Urine Ketones November 05, 2012 1:35pm NEGATIVE - Urine Leukocyte Esterase November 05, 2012 1:35pm NEGATIVE - Urine Mucus November 05, 2012 1:35pm NEGATIVE /LPF - Urine Nitrite November 05, 2012 1:35pm NEGATIVE - Urine Protein November 05, 2012 1:35pm TRACE - Urine RBC November 05, 2012 1:35pm NONE /HPF - Urine Specific [place] November 05, 2012 1:35pm 1.020 - Urine Squamous Epithelial Cells November 05, 2012 1:35pm 5-10 /HPF - Urine Urobilinogen November 05, 2012 1:35pm NORMAL MG/DL - Urine WBC November 05, 2012 1:35pm NONE /HPF - Urine pH November 05, 2012 1:35pm 6 - White Blood Count November 05, 2012 2:10pm 16.0 10^3/uL H 4.3-11.0 Pro-B-Type Natriuretic Peptide November 05, 2012 2:10pm < 10.0 PG/ML -125 Estimat Glomerular Filtration Rate November 05, 2012 2:10pm > 60 - Blood Morphology Comment November 05, 2012 2:10pm NORMAL - Urine RBC (Auto) November 05, 2012 1:35pm NEGATIVE - INR Comment November 05, 2012 2:10pm 1.0 N 0.8-1.4 Encounters Encounter Location Date/Time Discharged Inpatient [facility] 8:13pm Departed Emergency Room [facility] 11/04 8:16pm
--- OUTSIDE RECORDS SUMMARY | 2016-09-10 08:32 | XMS REPORT | Continuity of Care Document ---
Author Author [facility] Organization [facility] Address Unknown Phone Unavailable Care Team Providers Care Skin Care Instructor Name Role Phone SELINA MICHELLE Betty RIVER PP Insurance Providers Payer Name Policy Number Subscriber Name Relationship [facility] [id number] Teresa Guan 01 Self / Same As [...] LAPAROSCOPIC CHOLECYSTECTOMY 51.23 Encounters Encounter Location Date/Time Registered Emergency Room [facility] 11/28/12 10:54pm Pre-registered Emergency Room [facility] 11/28/12 7:50pm Discharged Inpatient [facility] 8:13pm Departed Emergency Room [facility] 11/04 8:16pm
--- OUTSIDE RECORDS SUMMARY | 2016-09-10 08:32 | XMS REPORT ---
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 Name Role Phone ARTHUR CAMPOS CP Unavailable Allergies, Adverse Reactions, Alerts Substance Reaction Event Type Zofran Info Not Available Drug Allergy Sulfamethoxazole-Trimethoprim Info Not Available Drug Allergy Penicillin V Potassium Info Not Available Drug Allergy Fentanyl Info Not Available Drug Allergy Doxycycline Calcium Info Not Available Drug Allergy Problems Problem Type Condition Code Onset Dates Condition Status Problem Counseling on substance use and abuse V65.42 Active Problem Unspecified backache 724.5 Active Problem Irregular menstrual cycle 626.4 Active Problem Influenza with other respiratory manifestations 487.1 Active Problem Acute bronchitis 466.0 Active Problem Cough 786.2 Active Problem Abnormal weight gain 783.1 Active Problem Dietary surveillance and counseling V65.3 Active Problem Dysfunction of Eustachian tube 381.81 Active Problem Other malaise and fatigue 780.79 Active Assessment Left knee pain M25.562 Active Problem Need for prophylactic vaccination and inoculation, Influenza V04.81 Active Problem Other disorder of menstruation and other abnormal bleeding from female genital tract 626.8 Active Problem Pain in joint, ankle and foot 719.47 Active Problem Wheezing 786.07 Active Problem Leukocytosis, unspecified 288.60 Active Problem Polycystic ovaries 256.4 Active Problem Chronic cholecystitis 575.11 Active Medications Medication Code System Code Instructions Start Date End Date Status Dosage Spironolactone [facility] [address]-03 50 MG Orally Twice a day 1 tablet Metoprolol Tartrate [facility] [address]-84 25 MG Orally Twice a day 1 tablet Cyclobenzaprine HCl [facility] [address]-91 10 MG Orally Three times a day 1 tablet Procedures Procedure Coding System Code Date Office Visit, Est Pt., Level 3 CPT-4 25935 Jun 22, 2015 Vital Signs Date/Time: Jun 22, 2015 Temperature 99.0 F Weight 256.7 lbs Height 59 in BMI 51.84 Index Blood Pressure Diastolic 76 mmHg Blood Pressure Systolic 118 mmHg Cardiac Monitoring Heart Rate 88 bpm Results No Known Results Summary Purpose eClinicalWorks Submission
--- OUTSIDE RECORDS SUMMARY | 2016-09-10 08:33 | XMS REPORT | Continuity of Care Document ---
Author Author [facility] Organization [facility] Address Unknown Phone Unavailable Care Team Providers Care Visual C Developer Name Role Phone SELINAMICHELLE PP Insurance Providers Payer Name Policy Number Subscriber Name Relationship [facility] [id number] Teresa Guan 01 Self / Same As Patient Advance Directives Directive Response Recorded Date Advance Directives N 02/24/13 9:06am Health Care Power of Jack Prizer Y 02/24/13 9:06am Organ Donor N 02/24/13 9:06am Problems No Known Problems or Medical conditions. [...] 11/05/12 Penicillins Adverse Reaction Intermediate hives 11/05/12 Sulfa (Sulfonamide Antibiotics) Allergy Mild rash 09/09/09 doxycycline Allergy Mild rash 09/09/09 Medications Medication Dose Units Route Sig Qty Days Pantoprazole Sodium (Protonix) 1 Tab PO DAILY 30 [vit D50,000 q week] Spironolactone 50 Mg PO DAILY Metformin HCl (Metformin Er 500MG) 1 Each PO DAILY WITH MEAL Magnesium Oxide (Magnesium) 400 Mg PO DAILY Hydrocodone Bit/Acetaminophen (Hydrocodon-Acetaminophen 5-325) 1 Each PO Q4H PRN 10 Acetaminophen/Hydrocodone Bitart (Vicodin 5-500 Tablet) 1 - 2 Each PO Q4HR PRN 30 Acetaminophen/Hydrocodone Bitart (Vicodin 5-500 Tablet) 1 - 2 Each PO Q4HR PRN 20 Immunizations Name Given Type Date of Pneumonia Vaccine 02/24/09 H Date of Influenza Vaccine 03/26/12 H Response Recorded Date/Time Status not known Unknown Results Test Date Result Interp. Ref. Range 17-Hydroxyprogesterone January 04, 2013 11:14am 84 NG/DL - Activated Partial Thromboplast Time November 05, 2012 2:10pm 36 SEC H 24-35 Alanine Aminotransferase (ALT/SGPT) January 04, 2013 11:14am 45 U/L N 30-65 Albumin January 04, 2013 11:14am 3.4 G/DL N 3.4-5.0 Alkaline Phosphatase January 04, 2013 11:14am 104 U/L N 50-136 Amylase Level November 28, 2012 11:50pm 29 U /L N 25-115 Aspartate Amino Transf (AST/SGOT) January 04, 2013 11:14am 21 U/L N 15-37 BUN/Creatinine Ratio January 04, 2013 11:14am 13 - Band Neutrophils November 05, 2012 2:10pm 1 % - Basophils # (Auto) November 28, 2012 11:50pm 0.0 10^3/uL N 0.0-0.1 Basophils % (Manual) November 05, 2012 2:10pm 0 % - Basophils (%) (Auto) November 28, 2012 11:50pm 0 % N 0-10 Blood Urea Nitrogen January 04, 2013 11:14am 9 MG/DL N 7-18 C-Peptide January 04, 2013 11:14am 4.21 H NG/ML - C-Reactive Protein January 04, 2013 11:14am 3.6 MG/DL H 0.2-0.9 Calcium Level January 04, 2013 11:14am 8.9 MG/DL N 8.5-10.1 Carbon Dioxide Level January 04, 2013 11:14am 24 MMOL/L N 21-32 Chloride Level January 04, 2013 11:14am 103 MMOL/L N 101-110 Cholesterol Level January 04, 2013 11:14am 173 MG/DL N -200 Creatine Kinase MB November 05, 2012 2:10pm 0.2 NG/ML N 0.0-3.6 Creatinine January 04, 2013 11:14am 0.7 MG/ DL N 0.6-1.3 D-Dimer November 05, 2012 2:10pm 0.33 UG/ML N 0.00-0.49 Dehydroepiandrosterone Sulfate January 04, 2013 11:14am 90 UG/DL - Direct Bilirubin November 05, 2012 6:30pm 0.2 MG/DL N 0.0-0.30 Eosinophils # (Auto) November 28, 2012 11:50pm 0.2 10^3/uL N 0.0-0.3 Eosinophils % (Manual) November 05, 2012 2:10pm 2 % - Eosinophils (%) (Auto) November 28, 2012 11:50pm 2 % N 0-10 Follicle Stimulating Hormone January 04, 2013 11:14am 2.2 MIU/ML - Free Testosterone January 04, 2013 11:14am 2.5 PG/ML - Free Thyroxine January 04, 2013 11:14am 0.82 NG/DL N 0.59-1.17 Glucose Level January 04, 2013 11:14am 91 MG/DL N 74-106 HDL Cholesterol January 04, 2013 11:14am 37 MG/DL N 35-60 Hematocrit November 28, 2012 11:50pm 41 % N 35-52 Hemoglobin November 28, 2012 11:50pm 13.9 G/ DL N 11.5-16.0 Hemoglobin A1c January 04, 2013 11:14am 6.3 % H 4.5-6.2 Indirect Bilirubin November 05, 2012 6:30pm 0.1 MG/DL - Insulin Level January 04, 2013 11:14am 70.0 H mU/L - LDL Cholesterol January 04, 2013 11:14am 118 MG/DL N 0-129 Lipase November 28, 2012 11:50pm 99 U/L N 73-393 Luteinizing Hormone January 04, 2013 11:14am 5.3 MIU/ML - Lymphocytes # (Auto) November 28, 2012 11:50pm 3.4 X 10^3 N 1.0-4.0 Lymphocytes % (Manual) November 05, 2012 2:10pm 13 % - Lymphocytes (%) (Auto) November 28, 2012 11:50pm 25 % N 12-44 Magnesium Level January 04, 2013 11:14am 1.8 MG/DL N 1.8-2.4 Mean Corpuscular Hemoglobin November 28, 2012 11:50pm 30 PG N 25-34 Mean Corpuscular Hemoglobin Concent November 28, 2012 11:50pm 34 G/DL N 32-36 Mean Corpuscular Volume November 28, 2012 11:50pm 90 FL N 80-99 Mean Platelet Volume November 28, 2012 11:50pm 10.1 FL N 7.4-10.4 Monocytes # (Auto) November 28, 2012 11:50pm 0.9 X 10^3 N 0.0-1.0 Monocytes % (Manual) November 05, 2012 2:10pm 2 % - Monocytes (%) (Auto) November 28, 2012 11:50pm 7 % N 0-12 Myoglobin November 05, 2012 2:10pm 22 UG/L N 10-92 Neutrophils # (Auto) November 28, 2012 11:50pm 9.3 X 10^3 H 1.8-7.8 Neutrophils % (Manual) November 05, 2012 2:10pm 82 % - Neutrophils (%) (Auto) November 28, 2012 11:50pm 67 % N 42-75 Platelet Count November 28, 2012 11:50pm 368 10^3/uL N 130-400 Potassium Level January 04, 2013 11:14am 4.0 MMOL/L N 3.6-5.0 Prolactin January 04, 2013 11:14am 9.4 NG/ ML - Prothrombin Time November 05, 2012 2:10pm 12.6 SEC N 12.2-14.7 Red Blood Count November 28, 2012 11:50pm 4.58 10^6/uL N 4.35-5.85 Red Cell Distribution Width November 28, 2012 11:50pm 13.7 % N 10.0-14.5 Serum Test, Qualitative November 06, 2012 6:45am NEGATIVE - Sex Hormone Binding Globulin January 04, 2013 11:14am 44 NMOL/L - Sodium Level January 04, 2013 11:14am 137 MMOL/L N 135-145 Somatomedin-C January 04, 2013 11:14am 137 NG/ML - Thyroid Stimulating Hormone (TSH) January 04, 2013 11:14am 2.01 UIU/ML N 0.34-5.60 Total Bilirubin January 04, 2013 11:14am 0.4 MG/DL N 0.0-1.0 Total Creatine Kinase November 05, 2012 2:10pm 68 U/L N 1-159 Total Protein January 04, 2013 11:14am 7.1 G/DL N 6.4-8.2 Total Triiodothyronine January 04, 2013 11:14am 1.7 NG/ML - Triglycerides Level January 04, 2013 11:14am 92 MG/DL N 30.0-150.0 Troponin I November 05, 2012 6:30pm < 0.10 NG /ML 0.00-0.10 Uric Acid January 04, 2013 11:14am 3.6 MG/ DL N 2.6-7.2 Urine Bacteria November 28, 2012 11:16pm NEGATIVE /HPF - Urine Bilirubin November 28, 2012 11:16pm NEGATIVE - Urine Casts November 28, 2012 11:16pm NONE / LPF - Urine Clarity November 28, 2012 11:16pm CLEAR - Urine Color November 28, 2012 11:16pm YELLOW - Urine Crystals November 28, 2012 11:16pm NONE /LPF - Urine Culture Indicated November 28, 2012 11:16pm NO - Urine Glucose (UA) November 28, 2012 11:16pm NEGATIVE - Urine Ketones November 28, 2012 11:16pm NEGATIVE - Urine Leukocyte Esterase November 28, 2012 11:16pm NEGATIVE - Urine Mucus November 28, 2012 11:16pm NEGATIVE /LPF - Urine Nitrite November 28, 2012 11:16pm NEGATIVE - Urine Protein November 28, 2012 11:16pm NEGATIVE - Urine RBC November 28, 2012 11:16pm NONE / HPF - Urine Specific [place] November 28, 2012 11:16pm 1.005 L - Urine Squamous Epithelial Cells November 28, 2012 11:16pm 5-10 /HPF - Urine Urobilinogen November 28, 2012 11:16pm NORMAL MG/DL - Urine WBC November 28, 2012 11:16pm NONE / HPF - Urine pH November 28, 2012 11:16pm 7 - VLDL Cholesterol January 04, 2013 11:14am 18 MG/DL N 5-40 Vitamin B12 Level January 04, 2013 11:14am 466 PG/ML - Vitamin D 25-Hydroxy January 04, 2013 11:14am 16 L NG/ML - White Blood Count November 28, 2012 11:50pm 13.8 10^3/uL H 4.3-11.0 Pro-B-Type Natriuretic Peptide November 05, 2012 2:10pm < 10.0 PG/ML -125 Estimat Glomerular Filtration Rate January 04, 2013 11:14am > 60 - Blood Morphology Comment November 05, 2012 2:10pm NORMAL - Testosterone Level January 04, 2013 11:14am 26 NG/DL - Urine RBC (Auto) November 28, 2012 11:16pm NEGATIVE - % Free & Weakly Bound Testosterone January 04, 2013 11:14am SEE FOOTNOTE % - INR Comment November 05, 2012 2:10pm 1.0 N 0.8-1.4 Procedures Procedure Code Date LAPAROSCOPIC CHOLECYSTECTOMY 51.23 MRSA Screen 11/07/12 Encounters Encounter Location Date/Time Departed Emergency Room [facility] 10:54pm Pre-registered Emergency Room [facility] 11/28/12 7:50pm [facility]charged [facility]patient [facility] 8:13pm
[2016-10-02] MEDS ORDERED: PANT40TA2 PO (10:41)
== END 2016-09-07 11:26 | disposition home or self-care (01) ==
LOC: EDUNIT# 08:26 → ER 08:28
DX: R07.89 Other chest pain (principal); E11.9 Type 2 diabetes mellitus without complications; I10 Essential (primary) hypertension; K76.0 Fatty (change of) liver, not elsewhere classified; E66.9 Obesity, unspecified; Z87.891 Personal history of nicotine dependence
CPT/HCPCS: 71010; 80053; 84484; 85007; 93005

== ENCOUNTER → 2016-09-07 | Outpatient (CLI) | payer OTHER ==
[~2016-09-07] MED LIST: ACHD5005 PO; BUME1TAB4 PO; CATHETER FLUSH 10 ML SYR IV PRN; HYDR1TAB PO; IBUP-1773 PO; INSU100V6 SQ; IOHEXOL 350 MG/ML 100 ML (OMNIPAQUE 350) VIAL IV ONE; MAGN400C PO; METF500T8 PO; METO-274 PO; METO-333 PO; NS 100 ML (IVPB) BAG IV ONE; PAMI30VI8 SQ; PANT40TA2 PO; PNT40TEC PO; PROM25TA14 PO; SPIR50TA2 PO; SPIR50TA27 PO; [UNRECOGNIZED DRUG - OTHER]
[2016-09-07 07:46] LABS: BASOPHILS % (AUTO) 0 % (0-10); EOSINOPHILS # (AUTO) 0.2 10^3/uL (0.0-0.3); EOSINOPHILS % (AUTO) 1 % (0-10); LYMPHOCYTES # (AUTO) 3.8 X 10^3 (1.0-4.0); LYMPHOCYTES % (AUTO) 27 % (12-44); MEAN CORPUSCULAR HEMOGLOBIN 30 PG (25-34); MEAN CORPUSCULAR HGB CONC 34 G/DL (32-36); MEAN CORPUSCULAR VOLUME 89 FL (80-99); MEAN PLATELET VOLUME 10.8 FL (7.4-10.4); MONOCYTES # (AUTO) 0.7 X 10^3 (0.0-1.0); MONOCYTES % (AUTO) 5 % (0-12); NEUTROPHILS # (AUTO) 9.6 X 10^3 (1.8-7.8); NEUTROPHILS % (AUTO) 67 % (42-75); PLATELET COUNT 317 10^3/uL (130-400); RED BLOOD COUNT 5.19 10^6/uL (4.35-5.85); RED CELL DISTRIBUTION WIDTH 14.2 % (10.0-14.5); WHITE BLOOD COUNT 14.3 10^3/uL (4.3-11.0)
[2016-09-07 08:07] LABS: ALANINE AMINOTRANSFERASE 58 U/L (0-55); ALBUMIN 3.8 G/DL (3.2-4.5); AMYLASE 24 U/L (25-125); ANION GAP 13 MMOL/L (5-14); ASPARTATE AMINO TRANSFERASE 39 U/L (5-34); BILIRUBIN,TOTAL 0.5 MG/DL (0.1-1.0); BLOOD UREA NITROGEN 7 MG/DL (7-18); BUN/CREATININE RATIO 10; CALCIUM 9.7 MG/DL (8.5-10.1); CARBON DIOXIDE 23 MMOL/L (21-32); CHLORIDE 101 MMOL/L (98-107); CREATININE SERUM 0.71 MG/DL (0.60-1.30); GFR ESTIMATED > 60; GLUCOSE 336 MG/DL (70-105); LIPASE 16 U/L (8-78); POTASSIUM 4.1 MMOL/L (3.6-5.0); SODIUM 137 MMOL/L (135-145); TOTAL PROTEIN 6.7 G/DL (6.4-8.2)
[2016-09-07 08:37] LABS: BAND NEUTROPHILS 2 %; BASOPHILS % (MANUAL) 0 %; EOSINOPHILS % (MANUAL) 0 %; LYMPHOCYTES % (MANUAL) 24 %; NEUTROPHILS % (MANUAL) 70 %
[2016-09-07 08:38] LABS: ERYTHROCYTE SEDIMENTATION RATE 7 MM/HR (0-20); REACTIVE LYMPHOCYTES 1 %
[2016-09-07 08:50] LABS: BILIRUBIN,URINE NEGATIVE (NEGATIVE); KETONES,URINE NEGATIVE (NEGATIVE); LEUKOCYTE ESTERASE ,URINE NEGATIVE (NEGATIVE); NITRITE,URINE NEGATIVE (NEGATIVE); PH,URINE 6.5 (5-9); PROTEIN,URINE 3+ (NEGATIVE); UROBILINOGEN,URINE NORMAL (NORMAL)
--- NOTE | 2016-09-07 10:38 | Diagnostic Imaging Report ---
PROCEDURE: CT abdomen and pelvis with contrast. TECHNIQUE: Multiple contiguous axial images were obtained through the abdomen and pelvis after administration of intravenous contrast. INDICATION: Abdominal pain. TECHNIQUE: 100 MLO of Omnipaque 350 is administered intravenously. FINDINGS: There is minimal atelectasis seen in the left lung base. The liver demonstrates diffuse hepatic steatosis. The liver size is moderately enlarged. The spleen, adrenal glands, and the pancreas appear unremarkable. The kidneys have symmetric enhancement and contrast excretion. There is no hydronephrosis. The gallbladder is not seen, presumably surgically removed. Correlate with past surgical history. The abdominal aorta is normal in caliber. No para-aortic significantly enlarged lymph nodes. There is mild adenopathy however along the common hepatic artery measuring 1.3 cm. The urinary bladder appears unremarkable. The uterus and adnexa appear unremarkable. There is no bowel obstruction. The osseous structures appear grossly unremarkable. There is divarication of the recti with abdominal wall laxity and superimposed tiny fat-containing umbilical hernia. IMPRESSION: 1. Enlarged liver with fatty infiltration. 2. Nonspecific mild lymphadenopathy along the common hepatic artery. 3. Diastases recti with a superimposed small fat-containing umbilical hernia. Dictated by: Dictated on workstation # [id number]
== END ==
LOC: RAD 07:24
PROVIDERS: ATTEND Nurse Practitioner Family
DX: R16.0 Hepatomegaly, not elsewhere classified (principal); K76.0 Fatty (change of) liver, not elsewhere classified; R59.0 Localized enlarged lymph nodes; K42.9 Umbilical hernia without obstruction or gangrene
CPT/HCPCS: 36415; 74177; 80053; 81000; 82150; 83690; 85007; 85027; 85652; 86141; 87088

== ENCOUNTER 2016-09-28 05:48 | Outpatient (CLI) | payer OTHER ==
[~2016-09-28] VITALS: Ht 149.9 cm; Wt 113.4 kg
[~2016-09-28 05:48] MED LIST changes: +PAMI30VI8 SQ
[2016-09-28] MEDS ORDERED: PROM25TA14 PO (14:57)
[2016-10-02] MEDS ORDERED: PANT40TA2 PO (10:41)
== END 2016-09-28 15:15 ==
LOC: PREOP 05:48
PROVIDERS: ATTEND Surgery
DX: Z01.818 Encounter for other preprocedural examination (principal); K21.9 Gastro-esophageal reflux disease without esophagitis

== ENCOUNTER → 2016-10-02 | Day surgery (SDC) | payer OTHER ==
[~2016-10-02] VITALS: Ht 149.9 cm; Wt 113.4 kg
[~2016-10-02] MED LIST changes: +FLUMAZENIL (ROMAZICON) 0.1 MG/ML 5 ML VIAL INJ PRN; +HURRICAINE EXT TUBE (BENZOCAINE) ONE; +MIDAZOLAM 2 MG/2 ML (VERSED) VIAL ONE; +NALOXONE 0.4 MG/ML 1 ML (NARCAN) VIAL IVP PRN; +NS IV 500 ML 500 ML IV ONE; +NS IV 500 ML 500 ML ONE; +PANT40TA2 PO; +PROM25TA14 PO; +fentaNYL INJECTION 100 MCG/2 ML AMP IVP PRN; +fentaNYL INJECTION 100 MCG/2 ML AMP ONE
[2016-10-02] MEDS: MIDAZOLAM 2 MG/2 ML (VERSED) VIAL IVP PRN ×3 (10:15→10:25)
--- NOTE | 2016-10-02 10:23 | Conscious Sedation/ASA ---
Conscious Sedation Pre-Proced ASA Class: 2 Airway Mallampati Classification: ([place] appropriate class) I. II. III, IV Lungs Heart ASA score ASA 1: a normal healthy patient ASA 2: a patient with a mild systemic disease (mid diabetes, controlled hypertension, obesity ASA 3: a patient with a severe systemic disease that limits activity (angina , COPD, prior Myocardial infarction) ASA 4: a patient with an incapacitating disease that is a constant threat to life (CHF, renal failure) ASA 5: a moribund patient not expected to survive 24 hrs. (ruptured aneurysm) ASA 6: a declared brain patient whose organs are being harvested. For emergent operations, add the letter E after the classification Grade 1 Sedation Plan: Discussed options with patient/fam Note The patient is an appropriate candidate to undergo the planned procedure, sedation, and anesthesia. The patient immediately re-assessed prior to indication. MIGUEL CROCKER MD Oct 02, 2016 10:23 am
--- NOTE | 2016-10-02 10:39 | Endoscopy Procedure Report ---
Endoscopy Report Date: Oct 02, 2016 Preoperative Diagnosis: epigastric pain Study Performed: Upper Endoscopy Procedure Instrument: Endoscope Endo Procedure/Findings Findings 1.: Hiatal Hernia, Gastric Ulcer Recommendations: Recommendations: 1.: Prescription for Copy Copies To 1: BIBIANA HINDS MD, XAVIER M MD Oct 02, 2016 10:39 am
--- NOTE | 2016-10-02 10:42 | Discharge Inst-Simple/Standard ---
Discharge Inst-Standard Discharge Medications New, Converted or Re-Newed RX: RX on Chart Patient Instructions/Follow Up Plan of Care/Instructions/FU: follow-up with her primary physician Activity as Tolerated: Yes Discharge Diet: No Restrictions MIGUEL CROCKER MD Oct 02, 2016 10:42 am
[2016-10-02 10:55] VITALS: BP 164/90
[2016-10-02 11:25] VITALS: BP 129/83
[2016-10-02 11:54] VITALS: BP 131/83
[2016-10-02 12:03] VITALS: BP 131/83
--- NOTE | 2016-10-02 12:44 | OPERATIVE REPORT ---
PROCEDURE PHYSICIAN: MIGUEL CROCKER DATE OF PROCEDURE: 10/02/2016 PROCEDURE: Upper GI endoscopy with antral biopsy. SURGEON: Dr. Crocker. INDICATION FOR THE PROCEDURE: This lady came in for an upper endoscopy to evaluate ongoing epigastric pain. She was found to have peptic ulcers in the past. Informed consent was obtained after reviewing the procedure in detail. DESCRIPTION OF PROCEDURE: She was placed in left lateral decubitus position and her vital signs were monitored. Conscious sedation was achieved using Versed and fentanyl. The flexible gastroscope was introduced down the esophagus, past the stomach, into the proximal duodenum. FINDINGS: ESOPHAGUS: A short hiatal hernia with grade 2 esophagitis. STOMACH: A 2 mm erosion at the antrum. Biopsy for Helicobacter pylori was taken. DUODENUM: Changes of the early duodenitis were found along the first part. She tolerated the procedure well and was taken back to the nursing area in a stable condition. IMPRESSION: 1. Epigastric pain. 2. Esophagitis and an antral erosion. 3. Helicobacter status pending. Job ID: [id number] Dictated Date: 10/02/2016 10:34:26 Marketing Forecaster Date: 10/02/2016 12:39:49 / silvina REYNOSO
== END | disposition home or self-care (01) ==
LOC: ENDO 09:35
PROVIDERS: ATTEND Surgery
DX: K20.9 Esophagitis, unspecified (principal); K25.9 Gastric ulcer, unspecified as acute or chronic, without hemorrhage or perforation
CPT/HCPCS: 82962; 84703; 88305

== ENCOUNTER 2016-11-10 10:05 | Outpatient (RCR) | payer OTHER ==
[~2016-11-10 10:05] MED LIST changes: -FLUMAZENIL (ROMAZICON) 0.1 MG/ML 5 ML VIAL INJ PRN; -HURRICAINE EXT TUBE (BENZOCAINE) ONE; -MIDAZOLAM 2 MG/2 ML (VERSED) VIAL ONE; -NALOXONE 0.4 MG/ML 1 ML (NARCAN) VIAL IVP PRN; -NS IV 500 ML 500 ML IV ONE; -NS IV 500 ML 500 ML ONE; -fentaNYL INJECTION 100 MCG/2 ML AMP IVP PRN; -fentaNYL INJECTION 100 MCG/2 ML AMP ONE
== END 2017-02-08 | disposition home or self-care (01) ==
LOC: DSME 10:05
PROVIDERS: ATTEND Nurse Practitioner Family
DX: E11.65 Type 2 diabetes mellitus with hyperglycemia (principal)

== ENCOUNTER 2016-12-14 13:55 | Outpatient (RCR) | payer OTHER ==
[2016-12-14 10:25] LABS: BASOPHILS # (AUTO) 0.1 10^3/uL (0.0-0.1); BASOPHILS % (AUTO) 0 % (0-10); EOSINOPHILS # (AUTO) 0.2 10^3/uL (0.0-0.3); EOSINOPHILS % (AUTO) 1 % (0-10); LYMPHOCYTES # (AUTO) 3.5 X 10^3 (1.0-4.0); LYMPHOCYTES % (AUTO) 21 % (12-44); MEAN CORPUSCULAR HEMOGLOBIN 30 PG (25-34); MEAN CORPUSCULAR HGB CONC 34 G/DL (32-36); MEAN CORPUSCULAR VOLUME 90 FL (80-99); MEAN PLATELET VOLUME 10.5 FL (7.4-10.4); MONOCYTES # (AUTO) 0.6 X 10^3 (0.0-1.0); MONOCYTES % (AUTO) 4 % (0-12); NEUTROPHILS # (AUTO) 12.5 X 10^3 (1.8-7.8); NEUTROPHILS % (AUTO) 74 % (42-75); PLATELET COUNT 445 10^3/uL (130-400); RED CELL DISTRIBUTION WIDTH 14.5 % (10.0-14.5); WHITE BLOOD COUNT 16.8 10^3/uL (4.3-11.0)
[2016-12-14 11:18] LABS: ALANINE AMINOTRANSFERASE 58 U/L (0-55); ALBUMIN 4.1 GM/DL (3.2-4.5); ANION GAP 11 MMOL/L (5-14); ASPARTATE AMINO TRANSFERASE 48 U/L (5-34); BILIRUBIN,TOTAL 0.7 MG/DL (0.1-1.0); BLOOD UREA NITROGEN 9 MG/DL (7-18); BUN/CREATININE RATIO 14; CALCIUM 9.5 MG/DL (8.5-10.1); CARBON DIOXIDE 24 MMOL/L (21-32); CHLORIDE 102 MMOL/L (98-107); CREATININE SERUM 0.63 MG/DL (0.60-1.30); GFR ESTIMATED > 60; GLUCOSE 167 MG/DL (70-105); LACTATE DEHYDROGENASE 195 U/L (125-220); POTASSIUM 4.2 MMOL/L (3.6-5.0); SODIUM 137 MMOL/L (135-145); TOTAL PROTEIN 7.6 GM/DL (6.4-8.2)
[2016-12-14 15:32] LABS: RETICULOCYTE % 3.02 % (0.50-2.40)
[2016-12-14 16:50] LABS: %SAT TOTAL IRON BINDING CAPIC 15 % (15-50); TIBC 371 ug/dL (280-380)
[2016-12-15 09:15] LABS: UIBC 317 ug/dL
[2016-12-15 12:44] LABS: JAK2 MUTATION Not Detected
[2017-01-15 11:51] LABS: MP RPT # MP178513
== END 2017-03-14 | disposition home or self-care (01) ==
LOC: ONC 13:55
PROVIDERS: ATTEND Internal Medicine Hematology & Oncology
DX: D72.829 Elevated white blood cell count, unspecified (principal); R74.0 Nonspecific elevation of levels of transaminase and lactic acid dehydrogenase [LDH]; I10 Essential (primary) hypertension; E11.9 Type 2 diabetes mellitus without complications; K29.70 Gastritis, unspecified, without bleeding; M15.0 Primary generalized (osteo)arthritis; E28.2 Polycystic ovarian syndrome; Z79.4 Long term (current) use of insulin; Z79.899 Other long term (current) drug therapy
CPT/HCPCS: 36415; 80053; 81270; 82728; 83540; 83615; 85025; 85045; 88184; 88185; 99214

== ENCOUNTER → 2017-01-19 | Outpatient (CLI) | payer OTHER ==
--- NOTE | 2017-01-19 14:14 | Diagnostic Imaging Report ---
INDICATION: Menometrorrhagia. COMPARISON: None. DISCUSSION: Transabdominal and transvaginal sonographic evaluation of the pelvis was performed. The uterus is normal in echotexture and size measuring 7.5 x 4.4 x 4.2 cm. Normal endometrial thickness measuring 1.2 cm. Neither ovary was visualized. There is a simple appearing cystic focus within the right adnexa which measures 1.8 x 3.5 x 1.9 cm, possible paraovarian cyst. No solid adnexal mass identified. IMPRESSION: 1. Nonvisualization of the bilateral ovaries, possibly obscured by bowel. 2. Simple appearing cystic focus within the right adnexa is indeterminate though is statistically benign and could represent a paraovarian cyst. Dictated by: Dictated on workstation # [id number]
--- NOTE | 2017-01-22 18:38 | Diagnostic Imaging Report ---
Bilateral screening mammogram 2D views with tomosynthesis. The current study was also evaluated with a Computer Aided Detection (CAD) system. INDICATION: Screening. No current complaints stated on the questionnaire. COMPARISON: None. This is a baseline exam. FINDINGS: The breasts are composed of heterogeneously dense parenchyma which may decrease mammographic sensitivity. There are loosely clustered punctate calcifications seen in the upper aspect and central region of each breast. The symmetric nature of the calcifications is in favor of benign process. No mass or architectural distortion is seen. IMPRESSION: Somewhat symmetric punctate calcifications in the breasts with no suspicious focal cluster or mass seen. Annual screening mammograms recommended. ACR BI-RADS Category 2: Benign findings. Result letter will be mailed to the patient. Note: At least 10% of breast cancer is not imaged by mammography. Dictated by: Dictated on workstation # [id number]
== END ==
LOC: RAD 12:10
PROVIDERS: ATTEND Obstetrics & Gynecology
DX: R19.09 Other intra-abdominal and pelvic swelling, mass and lump (principal); Z12.31 Encounter for screening mammogram for malignant neoplasm of breast
CPT/HCPCS: 76830; 76856; 77067

== ENCOUNTER → 2017-02-11 | Outpatient (CLI) | payer OTHER ==
[~2017-02-11] MED LIST changes: -METO-274 PO; +METO-395 PO
--- NOTE | 2017-02-11 16:11 | Diagnostic Imaging Report ---
INDICATION: Left ankle pain for the past two weeks. EXAMINATION: Three views of the left ankle were obtained. FINDINGS: No fracture, dislocation or other acute bony abnormality. There are mild degenerative changes with mild hypertrophic spurring at the tips of the medial and lateral malleoli. The ankle joint is not widened. IMPRESSION: There are mild degenerative changes present. No acute abnormality is seen. Dictated by: Dictated on workstation # [id number]
== END ==
LOC: RAD 15:06
PROVIDERS: ATTEND Nurse Practitioner Family
DX: M25.572 Pain in left ankle and joints of left foot (principal)
CPT/HCPCS: 73610

== ENCOUNTER → 2017-06-14 | Outpatient (CLI) | payer OTHER ==
--- NOTE | 2017-06-14 16:23 | Diagnostic Imaging Report ---
PROCEDURE: MR imaging left lower extremity without contrast. TECHNIQUE: Multiplanar, multisequence non contrast enhanced MR imaging of the left lower extremity was accomplished. INDICATION: Heel pain that radiates into calf. COMPARISONS: MRI of the left ankle from 06/13/2012. FINDINGS: TENDONS: Distal Achilles has moderate thickening indicative of tendinopathy. There is low-grade partial-thickness tearing of the deep fibers of the distal Achilles immediately subjacent to the dorsal aspect of the calcaneal tuberosity. There is mild underlying subcortical bone marrow edema in the calcaneal tuberosity along with inflammation in the retrocalcaneal bursa. No retroachilles bursitis. The peroneal tendons are normal. The posterior tibialis, flexor hallucis longus and flexor digitorum longus tendons are normal. Anterior tibialis, extensor digitorum longus and extensor hallucis longus tendons are all normal where visualized. LIGAMENTS: The anterior and posterior distal tibiofibular ligaments are intact. The anterior talofibular ligament is poorly defined and mildly thickened indicative of remote tear with healing via scar formation. The calcaneofibular and posterior talofibular ligaments are intact. Medial deltoid ligamentous complex intact. BONES AND CARTILAGE: No osteochondral lesion of the talar dome. No fracture or stress fracture. The articular cartilage of the tibiotalar and posterior subtalar joints are normal. SOFT TISSUES: No evidence of plantar fasciitis. No abnormal soft tissue scar/fibrosis within the tarsal canal/sinus tarsi or tarsal tunnel. No ankle joint effusion. IMPRESSION: 1. Insertional tendinopathy of the distal Achilles with associated partial-thickness tearing of the deep insertional fibers. There is associated inflammation in the retrocalcaneal bursa as well as reactive edema in the dorsal aspect of the calcaneal tuberosity. 2. Remote injury to the anterior talofibular ligament which has healed via scar formation. No acute ligamentous abnormality. Dictated by: Dictated on workstation # [id number]
== END ==
LOC: RAD 13:38
PROVIDERS: ATTEND Nurse Practitioner Family
DX: M76.62 Achilles tendinitis, left leg (principal); M66.872 Spontaneous rupture of other tendons, left ankle and foot; M71.572 Other bursitis, not elsewhere classified, left ankle and foot; M89.8X7 Other specified disorders of bone, ankle and foot

== ENCOUNTER 2017-11-07 20:09 | Emergency (ER) | payer OTHER ==
[~2017-11-07] VITALS: Ht 149.9 cm; Wt 113.4 kg
--- OUTSIDE RECORDS SUMMARY | 2017-11-07 20:16 | XMS REPORT ---
Author Author ANCELMO CRAIG Organization [facility] Address [address] [place] [address] Care Team Providers Care Health And Safety Technician Name Role Phone ANCELMO CRAIG Unavailable PROBLEMS Type Condition ICD9-CM Code MPN70-IP Code Onset Dates Condition Status SNOMED Code Problem Other disorder of menstruation and other abnormal bleeding from female genital tract 626.8 Active 706255860 Problem Chronic cholecystitis 575.11 Active 43255952 Problem Irregular menstrual cycle 626.4 Active 62134999 Problem Other chronic pain G89.29 Active 49858632 Problem Polycystic ovaries 256.4 Active 87492369 Problem Acute bronchitis 466.0 Active 76832597 Problem Influenza with other respiratory manifestations 487.1 Active 5199933 Problem Leukocytosis, unspecified 288.60 Active 560196900 Problem Dysfunction of Eustachian tube 381.81 Active 27796877 Problem Dietary surveillance and counseling V65.3 Active 440905462 Problem Need for prophylactic vaccination and inoculation, Influenza V04.81 Active 908092200 Problem Counseling on substance use and abuse V65.42 Active 846355853 Problem Abnormal weight gain 783.1 Active 659616271 Problem Other malaise and fatigue 780.79 Active 273971435 Problem Cough 786.2 Active 93213769 Problem Pain in joint, ankle and foot 719.47 Active 872867709 Problem Wheezing 786.07 Active 32925182 Problem Unspecified backache 724.5 Active 874442252 ALLERGIES No Information ENCOUNTERS Encounter Location Date Diagnosis [facility] [id number] [address] Mar, Bronchitis J40 [facility] [id number] [address] Jan, [facility] [id number] [address] Jan, Left foot pain M79.672 ; Pain in left ankle and joints of left foot M25.572 and Other chronic pain G89.29 [facility] [id number] [address] Jun, Left knee pain M25.562 [facility] [address], [place] [address] Sep, [facility] [id number] [address] Sep, [facility] [address], [place] [address] Apr, [facility] [address], [place] [address] Apr, [facility] [address], [place] [address] Dec, [facility] [address], [place] [address] Dec, [facility] [address], [place] [address] Nov, [facility] [address], [place] [address] Nov, [facility] [address], [place] [address] October, [facility] [address], [place] [address] Jul, [facility] [address], [place] [address] Jul, [facility] [address], [place] [address] Jun, [facility] [address], [place] [address] Jun, [facility] [address] [id number] [address] Jun, [facility] [address] [id number] [place] [address] May, [facility] [place] [facility] [address] [id number] [place] [address] May, [facility] [address] [id number] [place] [address] May, [facility] [address] [id number] [place] [address] May, [facility] [address] [id number] [place] [address] May, [facility] [address] [id number] [place] [address] May, [facility] [address] [id number] [place] [address] Apr, [facility] [address] [id number] [place] [address] Apr, [facility] [address] [id number] [place] [address] Jan, [facility] [address] [id number] [place] [address] Dec, [facility] [place] [facility] [address] [id number] [place] [address] Dec, [facility] [address] [id number] [place] [address] Sep, [facility] [place] [facility] [address] [id number] [place] [address] Aug, [facility] [place] [facility] [address] [id number] [place] [address] Jul, [facility] [place] [facility] [address] [id number] [place] [address] Jul, [facility] [address] [id number] [place] [address] Jul, [facility] [place] [facility] [address] [id number] [place] [address] 20 Jul, 2011 [facility] [place] [facility] [address] [id number] [place] [address] 18 Jul, 2011 [facility] [place] [facility] [address] [id number] [place] [address] 17 Jul, 2011 [facility] [place] [facility] [address] [id number] [place] [address] 08 Jul, 2011 [facility] [place] [facility] [address] [id number] [place] [address] 07 Jul, 2011 [facility] [place] [facility] [address] [id number] [place] [address] 16 Jun, 2011 [facility] [place] [facility] [address] [id number] [place] [address] Jun, [facility] [place] [facility] [address] [id number] [place] [address] Jun, [facility] [place] [facility] [address] [facility] [id number] [place] [address] Jun, [facility] [place] [facility] [address] [id number] [place] [address] May, [facility] [place] [facility] [address] [id number] [place] [address] May, [facility] [place] [facility] [address] [id number] [place] [address] May, [facility] [place] [facility] [address] [facility] [id number] [place] [address] Apr, [facility] [place] [facility] [address] [id number] [place] [address] Nov, [facility] [place] [facility] [id number] [address] Aug, [facility] [address], [place] [address] May, [facility] [address], [place] [address] Feb, [facility] [address], [place] [address] Nov, [facility] [address] [address] October, [facility] [address] [address] October, IMMUNIZATIONS No Known Immunizations SOCIAL HISTORY Never Assessed REASON FOR VISIT XRay Results PLAN OF CARE VITAL SIGNS MEDICATIONS No Known Medications RESULTS No Results PROCEDURES No Known procedures INSTRUCTIONS MEDICATIONS ADMINISTERED No Known Medications MEDICAL (GENERAL) HISTORY Type Description Date Medical History PCOS (Polycystic Ovary Syndrome) Medical History asthma Surgical History cholecystectomy Surgical History left menicus repair 07/2015
--- OUTSIDE RECORDS SUMMARY | 2017-11-07 20:16 | XMS REPORT ---
Author Author ANCELMO CRAIG Organization [facility] Address [address] [place] [address] Care Team Providers Care Rolling Attendant Name Role Phone ANCELMO CRAIG Unavailable PROBLEMS Type Condition ICD9-CM Code HHG06-HC Code Onset Dates Condition Status SNOMED Code Problem Other disorder of menstruation and other abnormal bleeding from female genital tract 626.8 Active 990325458 Problem Chronic cholecystitis 575.11 Active 42800038 Problem Irregular menstrual cycle 626.4 Active 37770365 Problem Other chronic pain G89.29 Active 12124166 Problem Polycystic ovaries 256.4 Active 04030551 Problem Acute bronchitis 466.0 Active 63886955 Problem Influenza with other respiratory manifestations 487.1 Active 8827574 Problem Leukocytosis, unspecified 288.60 Active 719574384 Problem Dysfunction of Eustachian tube 381.81 Active 63412141 Problem Dietary surveillance and counseling V65.3 Active 109143661 Problem Need for prophylactic vaccination and inoculation, Influenza V04.81 Active 668600933 Problem Counseling on substance use and abuse V65.42 Active 156505701 Problem Abnormal weight gain 783.1 Active 110040303 Problem Other malaise and fatigue 780.79 Active 618624446 Problem Cough 786.2 Active 48951475 Problem Pain in joint, ankle and foot 719.47 Active 395369386 Problem Wheezing 786.07 Active 73220889 Problem Unspecified backache 724.5 Active 016641613 ALLERGIES Substance Reaction Event Type Date Status Zofran Unknown Drug Allergy Jan, Active Sulfamethoxazole-Trimethoprim Unknown Drug Allergy Jan, Active Penicillin V Potassium Unknown Drug Allergy Jan, Active Fentanyl Unknown Drug Allergy Jan, Active Doxycycline Calcium Unknown Drug Allergy Jan, Active ENCOUNTERS Encounter Location Date Diagnosis [facility] [address] [facility] [id number], [place] [address] Mar, Bronchitis J40 [facility] [address] [facility] [id number], [place] [address] Jan, [facility] [address], [place] [address] Jan, Left foot pain M79.672 ; Pain in left ankle and joints of left foot M25.572 and Other chronic pain G89.29 [facility] [address], [place] [address] Jun, Left knee pain M25.562 [facility] [address] [facility] [id number] [place] [address] Sep, [facility] [id number] [place] [address] Sep, [facility] [address], [place] [address] Apr, [facility] [address] [id number] [address] Apr, [facility] [address], [place] [address] Dec, [facility] [address], [place] [address] Dec, [facility] [address], [place] [address] Nov, [facility] [address], [place] [address] Nov, [facility] [id number], [place] [address] October, [facility] [address], [place] [address] Jul, [facility] [id number], [place] [address] Jul, [facility] [id number] [place] [address] Jun, [facility] [address] [id number] [place] [address] Jun, [facility] [place] [facility] [address] [id number] [place] [address] Jun, [facility] [address] [id number] [place] [address] May, [facility] [place] [facility] [address] [id number] [place] [address] May, [facility] [address] [id number] [place] [address] May, [facility] [place] [facility] [address] [id number] [place] [address] May, [facility] [address] [id number] [place] [address] May, [facility] [place] [facility] [address] [id number] [place] [address] May, [facility] [place] [facility] [address] [id number] [place] [address] Apr, [facility] [address] [id number] [place] [address] Apr, [facility] [place] [facility] [address] [id number] [place] [address] Jan, [facility] [place] [facility] [address] [id number] [place] [address] Dec, [facility] [place] [facility] [address] [id number] [place] [address] Dec, [facility] [place] [facility] [address] [id number] [place] [address] Sep, [facility] [place] [facility] [address] [id number] [place] [address] Aug, [facility] [place] [facility] [address] [id number] [place] [address] Jul, [facility] [place] [facility] [address] [id number] [place] [address] Jul, [facility] [place] [facility] [address] [id number] [place] [address] Jul, [facility] [place] [facility] [address] [id number] [place] [address] Jul, [facility] [place] [facility] [address] [id number] [place] [address] 18 Jul, 2011 [facility] [place] [facility] [address] [id number] [place] [address] 17 Jul, 2011 [facility] [place] [facility] [address] [id number] [place] [address] 08 Jul, 2011 [facility] [place] [facility] [address] [id number] [place] [address]- [address] 07 Jul, 2011 [facility] [place] [facility] [address] [id number] [place] [address] 16 Jun, 2011 [facility] [place] [facility] [address] [id number] [place] [address] 16 Jun, 2011 [facility] [place] [facility] [address] [id number] [place] [address] Jun, [facility] [place] [facility] [address] [id number] [place] [address] Jun, [facility] [place] [facility] [address] [id number] [place] [address] May, [facility] [place] [facility] [address] [id number] [place] [address] May, [facility] [place] [facility] [address] [id number] [place] [address] May, [facility] [place] [facility] [id number], [place] [address] Apr, [facility] [id number], [place] [address] Nov, [facility] [id number], [place] [address] Aug, [facility] [address], [place] [address] May, [facility] [address], [place] [address] Feb, [facility] [address], [place] [address] Nov, [facility] [address], [place] [address] October, [facility] [id number], [place] [address] October, IMMUNIZATIONS No Known Immunizations SOCIAL HISTORY Never Assessed REASON FOR VISIT hurt foot hurting for a few weeks- broke it about 4 years ago- yesterday and today pain is terrible when applying pressure Leroy PLAN OF CARE Activity Details Follow Up prn Reason: VITAL SIGNS Height 59 in 2017-02-11 Weight 231.6 lbs 2017-02-11 Temperature 97.9 degrees Fahrenheit 2017-02-11 Heart Rate 84 bpm 2017-02-11 Respiratory Rate 22 2017-02-11 BMI 46.77 kg/m2 2017-02-11 Blood pressure systolic 120 mmHg 2017-02-11 Blood pressure diastolic 72 mmHg 2017-02-11 MEDICATIONS Medication Instructions Dosage Frequency Start Date End Date Duration Status Metoprolol Tartrate 25 MG Orally Twice a day 1 tablet 12h Active Ibuprofen 200 MG Orally every 6 hrs 1 tablet with food or milk as needed 6h Active Spironolactone 50 MG Orally Twice a day 1 tablet 12h Active Toujeo SoloStar 300 UNIT/ML Active RESULTS Name Result Date Reference Range Xray : Ankle, Left, 3 views (IN HOUSE) PROCEDURES Procedure Date Ordered Result Body Site X-RAY EXAM OF ANKLE Feb 11, 2017 INSTRUCTIONS MEDICATIONS ADMINISTERED No Known Medications MEDICAL (GENERAL) HISTORY Type Description Date Medical History PCOS (Polycystic Ovary Syndrome) Medical History asthma Surgical History cholecystectomy Surgical History left menicus repair 07/2015
--- NOTE | 2017-11-07 20:19 | ED Lower Extremity ---
General Chief Complaint: Lower Extremity Stated Complaint: ANKLE INJ Source: patient Exam Limitations: no limitations History of Present Illness Date Seen by Provider: November 07, 2017 Time Seen by Provider: 20:18 Initial Comments to ER with reports of left ankle pain. She was at [employer] shopping in [employer] earlier this evening. She stepped off of a curb and upon stepping down and she felt a popping sensation and a men's pain in the back of her left ankle. She was unable towalk after that. Her drove her straight here. She states the pain radiates up the posterior aspect of the left calf. She does have a history of torn Achilles tendon in the past also states she was on Levaquin for a URI about one month ago. 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 Onset: just prior to arrival Severity: severe Pain/Injury Location: left ankle Modifying Factors: Worse With Movement Allergies and Home Medications Allergies Coded Allergies: fentanyl (Verified Allergy, Intermediate, HIVES, 09/28/16) ondansetron (Verified Allergy, Intermediate, HEADACHES, 09/28/16) Sulfa (Sulfonamide Antibiotics) (Unverified Allergy, Mild, rash, 09/28/16) doxycycline (Unverified Allergy, Mild, rash, 09/28/16) morphine (Verified Allergy, Unknown, HIVES, 10/02/16) Penicillins (Unverified Adverse Reaction, Intermediate, hives, 09/28/16) Home Medications Bumetanide 1 Mg Tablet, 1 MG PO PRN, (Reported) Hydrocodone/Acetaminophen 1 Each Tablet, 1 EACH PO Q4H PRN for PAIN-MODERATE TO SEVERE Prescribed by: ELVIRA PENA on 11/07/172050 Insulin Glargine,Hum.rec.anlog 100 Unit/1 Ml Vial, 22 UNIT SQ DAILY, (Reported) Insulin Glargine,Hum.rec.anlog 100 Unit/1 Ml Vial, 38 UNIT SQ HS, (Reported) Insulin Lispro 100 Unit/1 Ml Cartridge, 10 UNIT SQ AC, (Reported) Metoprolol Succinate 100 Mg Tab.er.24h, 100 MG PO DAILY, (Reported) Pantoprazole Sodium 40 Mg Tablet.dr, 40 MG PO DAILY Prescribed by: MIGUEL CROCKER on 10/02/16 1041 Promethazine HCl 25 Mg Tablet, 25 MG PO Q6H PRN for NAUSEA/VOMITING, (Reported) Patient Home Medication List Home Medication List Reviewed: Yes Constitutional: see HPI EENTM: see HPI Respiratory: no symptoms reported Cardiovascular: no symptoms reported Genitourinary: no symptoms reported Musculoskeletal: see HPI Skin: no symptoms reported Psychiatric/Neurological: No Symptoms Reported Past Cwtovod-Itdhiw-Lqhcxk Hx Patient Social History Alcohol Use: Denies Use Recreational Drug Use: No Smoking Status: Former Smoker Type Used: Cigarettes Former Smoker, Quit: Jun 30, 2014 Recent Foreign Travel: No Contact w/Someone Who Travel: No Recent Hopitalizations: No Immunizations Up To Date Tetanus Booster (TDap): Unknown Date of Pneumonia Vaccine: Apr 17, 2016 Date of Influenza Vaccine: Mar 27, 2016 Seasonal Allergies Seasonal Allergies: Yes Past Medical History Surgeries: Yes (LIPOMA FROM NECK, MENISCUS REPAIR) Section, Gallbladder, Tonsillectomy Respiratory: Yes (USES XOPENEX IF NEEDED-USED ONCE IN LAST YEAR) Asthma, Sleep Apnea Currently Using CPAP: Yes Cardiac: Yes (HX TACHYCARDIA) Hypertension Neurological: Yes Neuropathy Reproductive Disorders: No Female Reproductive Disorders: Polycystic Ovarian Dis Sexually Transmitted Disease: No HIV/AIDS: No Neurogenic Bladder Gastrointestinal: Yes Gastroesophageal Reflux, Ulcer Musculoskeletal: Yes Arthritis Endocrine: Yes Diabetes, Insulin dep Loss of Vision: Bilateral Hearing Impairment: Denies Cancer: No Psychosocial: No Integumentary: No Blood Disorders: No Adverse Reaction/Blood Tranf: No (N/A) Family Medical History No Pertinent Family Hx Physical Exam Vital Signs Vital Signs - First Documented 11/07/17 20:13 Temp 98.7 Pulse 122 Resp 18 B/P (MAP) 152/107 (122) Pulse Ox 96 Capillary Refill : General Appearance: WD/WN, no apparent distress HEENT: PERRL/EOMI, normal ENT inspection Neck: non-tender, full range of motion Cardiovascular: regular rate, rhythm, no murmur Respiratory: normal breath sounds, no respiratory distress Hips: bilateral hip non-tender, bilateral hip normal inspection, bilateral hip normal range of motion Legs: bilateral leg non-tender, bilateral leg normal inspection, bilateral leg normal range of motion Knees: bilateral knee non-tender, bilateral knee normal inspection, bilateral knee normal range of motion Ankles: left ankle pain, left ankle soft tissue tenderness, left ankle other ( tenderness to palpation over the Achilles tendon. No ecchymosis this time. No obvious swelling. No lateral or medial ankle pain.) Feet: bilateral foot non-tender, bilateral foot normal inspection, bilateral foot normal range of motion Neurologic/Psychiatric: alert, normal mood/affect, oriented x 3 Skin: normal color, warm/dry Comments Emery test positive on the left (no plantar flexion with squeezing of the calf) Progress/Results/Core Measures Results/Orders My Orders Orders - ELVIRA PENA APRN Ankle, Left, 3 Views (11/07/17 20:18) Rx-Hydrocodone/Apap 5-325 Mg (Rx-Vicodin (11/07/17 21:00) Vital Signs/I&O 11/07/17 20:13 Temp 98.7 Pulse 122 Resp 18 B/P (MAP) 152/107 (122) Pulse Ox 96 Diagnostic Imaging Diagonstic Imaging: Xray Comments NAME: TERESA GUAN [facility] REC#: [id number] PT STATUS: REG ER : 1970 PHYSICIAN: ELVIRA PENA APRN ADMIT DATE: 11/07/17/ER Draft Date of Exam:11/07/17 ANKLE, LEFT, 3 VIEWS INDICATION: Left ankle injury, pain, fall. COMPARISON: 02/11/2017. EXAMINATION: Three views of the left ankle were obtained. FINDINGS: No acute fracture or dislocation. Articular surfaces are stable. Achilles calcifications have developed. Calcaneal osteophytosis is present. There is no foreign body. IMPRESSION: No fracture or dislocation. Dictated on workstation # [id number] Dict: 11/07/172035 Trans: 11/07/172055 [facility] [id number] Interpreted by: DYLAN JACKSON Electronically signed by: Departure Communication (Admissions) she has formerly seen Dr. Shook and Dr. Rhodes and would like to follow up with one of them.walking boot applied. [place] wrap applied. Impression Primary Impression: Achilles tendon tear Disposition: HOME, SELF-CARE Condition: Stable Departure-Patient Inst. Decision time for Depature: 20:37 Referrals: BIBIANA HINDS MD (PCP/Family) Primary Care Physician YAA SHOOK MD Patient Instructions: Achilles Tendon Rupture (DC) Add. Discharge Instructions: 1. Wear the walking boot at all times when you're upright except when showering. Call orthopedic surgeon of your choosing tomorrow morning to make an appointment to be seen for further evaluation and treatment.All discharge instructions reviewed with patient and/or family. Voiced understanding. Scripts Hydrocodone/Acetaminophen ([place] 5-325 Tablet) 1 Each Tablet 1 EACH PO Q4H PRN for PAIN-MODERATE TO SEVERE, #20 TAB Prov: ELVIRA PENA APRN 11/07/17 Copy Copies To 1: BIBIANA HINDS MD, PETER J APRN November 07, 2017 20:19
--- OUTSIDE RECORDS SUMMARY | 2017-11-07 20:22 | XMS REPORT | CCD ---
Author Author [facility] Address [address] [place] [address] Phone Care Team Providers [employer] Name Role Phone PP Unavailable CCM Unavailable Summary Purpose Interface Exchange Insurance Providers Payer name Policy type / Coverage type Covered libertarian ID Effective Begin Date Effective End Date [facility] Commercial Insurance [id number] Unknown Unknown Family history Father Diagnosis Age At Onset Hypertension Unknown Arthritis Unknown Mother Diagnosis Age At Onset Arthritis Unknown Hyperlipidemia Unknown Daughter Diagnosis Age At Onset Asthma Unknown Social History Social History Element Codes Description Effective Dates Marital status Unknown Darin 08/03/2015 Number of children Unknown 1 08/03/[address]: 0581099 Quit less than 5 years ago 08/03/2015 Number of years using tobacco Unknown 20 - 30 08/03/2015 Alcohol history Unknown occasionally drinks alcohol 08/03/2015 Allergies, Adverse Reactions, Alerts Allergies, Adverse Reactions, Alerts data not found Past Medical History Illness Codes Condition Status Onset Date Resolved Date Other obesity due to excess calories ICD-9: 278.00 ICD-10: E66.09 Active 06/12/2016 Unknown Polycystic ovarian syndrome ICD-9: 256.4 ICD-10: E28.2 Active 08/31/2015 Unknown Candidiasis of vulva and vagina ICD-9: 112.1 ICD-10: B37.3 Active 09/05/2016 Unknown Dyspnea, unspecified ICD-9: 786.09 ICD-10: R06.00 Active 06/07/2017 Unknown Localized edema ICD-9 : 782.3 ICD-10: R60.0 Active 06/07/2017 Unknown Pain in left foot ICD- 9: 729.5 ICD-10: M79.672 Active 04/24/2017 Unknown Rash and other nonspecific skin eruption ICD-9: 782.1 ICD-10: R21 Active 06/07/2017 Unknown Low back pain ICD-9: 724.2 ICD-10: M54.5 Active 04/24/2017 Unknown Sacroiliitis, not elsewhere classified ICD-9: 720.2 ICD-10: M46.1 Active 04/24/2017 Unknown VACCIN FOR INFLUENZA ICD-9: V04.81 ICD-10: Z23 Active 03/29/2016 Unknown Acute suppurative otitis media without spontaneous rupture of ear drum, right ear ICD-9: 382.00 ICD-10: H66.001 Active 01/09/2017 Unknown Other allergic rhinitis ICD-9: 477.8 ICD-10: J30.89 Active 06/15/2016 Unknown Type 2 diabetes mellitus with hyperglycemia ICD-9: 250.02 ICD-10: E11.65 Active 06/12/2016 Unknown Umbilical hernia without obstruction or gangrene ICD-9: 553.1 ICD-10: K42.9 Active 09/12/2016 Unknown Epigastric pain ICD-9 : 789.06 ICD-10: R10.13 Active 09/05/2016 Unknown Acute laryngopharyngitis ICD-9: 465.0 ICD-10: J06.0 Active 06/15/2016 Unknown Type 2 diabetes mellitus without complications ICD-9: 250.00 ICD-10: E11.9 Active 05/04/2016 Unknown Encounter for immunization ICD-9: V05.9 ICD-10: Z23 Active 04/12/2016 Unknown Pain in right shoulder ICD-9: 719.41 ICD-10: M25.511 Active 04/09/2016 Unknown Other muscle spasm ICD -9: 728.85 ICD-10: M62.838 Active 04/05/2016 Unknown Acne vulgaris ICD-9: 706.1 ICD-10: L70.0 Active 03/07/2016 Unknown Acute bronchitis due to other specified organisms ICD-9: 466.0 ICD-10: J20.8 Active 03/07/2016 Unknown Morbid (severe) obesity due to excess calories ICD-9: 278.01 ICD-10: E66.01 Active 03/07/2016 Unknown Other acute sinusitis ICD-9: 461.8 ICD-10: J01.80 Active 03/07/2016 Unknown Localized enlarged lymph nodes ICD-9: 785.6 ICD-10: R59.0 Active 02/27/2016 Unknown Encounter for gynecological examination (general) (routine ) without abnormal findings ICD-9: V72.31 ICD-10: Z01.419 Active 12/22/2015 Unknown Excessive and frequent menstruation with irregular cycle ICD-9: 626.2 ICD-10: N92.1 Active 12/22/2015 Unknown Other insomnia ICD-9: 327.09 ICD-10: G47.09 Active 10/12/2015 Unknown Acute recurrent maxillary sinusitis ICD-9: 461.0 ICD-10: J01.01 Active 10/04/2015 Unknown Allergic rhinitis due to pollen ICD-9: 477.0 ICD-10: J30.1 Active 10/04/2015 Unknown Other abnormal glucose ICD-9: 790.29 ICD-10: R73.09 Active 08/31/2015 Unknown Other skin changes ICD -9: 709.8 ICD-10: R23.8 Active 08/31/2015 Unknown Essential (primary) hypertension ICD-9: 401.9 ICD-10: I10 Active 08/19/2015 Unknown Hypertension Unknown Active 08/03/2015 Unknown Obstructive sleep apnea (adult) (pediatric) ICD-9: 327.23 ICD-10: G47.33 Active 08/02/2015 Unknown Snoring ICD-9: 786.09 ICD-10: R06.83 Active 08/02/2015 Unknown Problems Condition Codes Effective Dates Condition Status Other obesity due to excess calories ICD-9: 278.00 ICD-10: E66.09 06/12/2016 Active Polycystic ovarian syndrome ICD-9: 256.4 ICD-10: E28.2 08/31/2015 Active Candidiasis of vulva and vagina ICD-9: 112.1 ICD-10: B37.3 09/05/2016 Active Dyspnea, unspecified ICD-9: 786.09 ICD-10: R06.00 06/07/2017 Active Localized edema ICD-9 : 782.3 ICD-10: R60.0 06/07/2017 Active Pain in left foot ICD- 9: 729.5 ICD-10: M79.672 04/24/2017 Active Rash and other nonspecific skin eruption ICD-9: 782.1 ICD-10: R21 06/07/2017 Active Low back pain ICD-9: 724.2 ICD-10: M54.5 04/24/2017 Active Sacroiliitis, not elsewhere classified ICD-9: 720.2 ICD-10: M46.1 04/24/2017 Active VACCIN FOR INFLUENZA ICD-9: V04.81 ICD-10: Z23 03/29/2016 Active Acute suppurative otitis media without spontaneous rupture of ear drum, right ear ICD-9: 382.00 ICD-10: H66.001 01/09/2017 Active Other allergic rhinitis ICD-9: 477.8 ICD-10: J30.89 06/15/2016 Active Type 2 diabetes mellitus with hyperglycemia ICD-9: 250.02 ICD-10: E11.65 06/12/2016 Active Umbilical hernia without obstruction or gangrene ICD-9: 553.1 ICD-10: K42.9 09/12/2016 Active Epigastric pain ICD-9 : 789.06 ICD-10: R10.13 09/05/2016 Active Acute laryngopharyngitis ICD-9: 465.0 ICD-10: J06.0 06/15/2016 Active Type 2 diabetes mellitus without complications ICD-9: 250.00 ICD-10: E11.9 05/04/2016 Active Encounter for immunization ICD-9: V05.9 ICD-10: Z23 04/12/2016 Active Pain in right shoulder ICD-9: 719.41 ICD-10: M25.511 04/09/2016 Active Other muscle spasm ICD -9: 728.85 ICD-10: M62.838 04/05/2016 Active Acne vulgaris ICD-9: 706.1 ICD-10: L70.0 03/07/2016 Active Acute bronchitis due to other specified organisms ICD-9: 466.0 ICD-10: J20.8 03/07/2016 Active Morbid (severe) obesity due to excess calories ICD-9: 278.01 ICD-10: E66.01 03/07/2016 Active Other acute sinusitis ICD-9: 461.8 ICD-10: J01.80 03/07/2016 Active Localized enlarged lymph nodes ICD-9: 785.6 ICD-10: R59.0 02/27/2016 Active Encounter for gynecological examination (general) (routine ) without abnormal findings ICD-9: V72.31 ICD-10: Z01.419 12/22/2015 Active Excessive and frequent menstruation with irregular cycle ICD-9: 626.2 ICD-10: N92.1 12/22/2015 Active Other insomnia ICD-9: 327.09 ICD-10: G47.09 10/12/2015 Active Acute recurrent maxillary sinusitis ICD-9: 461.0 ICD-10: J01.01 10/04/2015 Active Allergic rhinitis due to pollen ICD-9: 477.0 ICD-10: J30.1 10/04/2015 Active Other abnormal glucose ICD-9: 790.29 ICD-10: R73.09 08/31/2015 Active Other skin changes ICD -9: 709.8 ICD-10: R23.8 08/31/2015 Active Essential (primary) hypertension ICD-9: 401.9 ICD-10: I10 08/19/2015 Active Hypertension Unknown 08/03/2015 Active Obstructive sleep apnea (adult) (pediatric) ICD-9: 327.23 ICD-10: G47.33 08/02/2015 Active Snoring ICD-9: 786.09 ICD-10: R06.83 08/02/2015 Active Medications Medication Codes Instructions Start Date Stop Date Status Fill Instructions ibuprofen 800 mg tablet RxNorm: 171204 1 Tablet(s) PO TID 07/2702/21/2018 Active metoprolol succinate ER 100 mg tablet,extended release 24 hr RxNorm: 063822 TAKE ONE TABLET BY MOUTH ONCE DAILY 06/20/2017 No Stop Date Active alprazolam 0.5 mg tablet RxNorm: 995219 1 Tablet(s) PO Q8 as needed 06/20/2017 07/09/2017 Inactive Zithromax Z-Rashid 250 mg tablet RxNorm: 218724 1 Tablet(s) PO UD 06/15/2017 07/25/2017 Inactive Xopenex HFA 45 mcg/actuation aerosol inhaler RxNorm: 657739 INHALE ONE PUFF INTO LUNGS NEEDED 06/13/2017 07/14/2017 Inactive Xopenex 1.25 mg/3 mL solution for nebulization RxNorm: 043284 Milliliter(s) USE ONE VIAL IN NEBULIZER THREE TIMES DAILY 06/08/2017 No Stop Date Active Flovent HFA 44 mcg/actuation aerosol inhaler RxNorm: 587290 2 Puff(s) INH BID 06/08/2017 No Stop Date Active potassium chloride ER 10 mEq tablet,extended release RxNorm: 659386 1 Tablet(s) PO daily 06/08/2017 06/10/2017 Inactive Lasix 20 mg tablet RxNorm: 097592 1 Tablet(s) PO daily 201606/10/2017 Inactive Xopenex HFA 45 mcg/actuation aerosol inhaler RxNorm: 044740 INHALE ONE PUFF INTO LUNGS NEEDED 06/08/2017 06/12/2017 Inactive triamcinolone acetonide 0.025 % topical cream RxNorm: 4205338 1 Application TOP BID 06/07/2017 No Stop Date Active ibuprofen 800 mg tablet RxNorm: 855560 1 Tablet(s) PO TID 06/0707/06/2017 Inactive Diflucan 150 mg tablet RxNorm: 652417 TAKE ONE TABLET BY MOUTH ONCE DAILY FOR 7 DAYS THEN TAKE ONE TABLET BY MOUTH ONCE A WEEK 05/28/2017 No Stop Date Active cyclobenzaprine 5 mg tablet RxNorm: 207792 1/2 Tablet(s) PO TID as needed muscle spasms 05/28/2017 06/01/2017 Inactive bumetanide 1 mg tablet RxNorm: 739320 TAKE ONE TABLET BY MOUTH TWICE DAILY 05/25/2017 No Stop Date Active meloxicam 7.5 mg tablet RxNorm: 829641 1 Tablet(s) PO daily as needed 05/25/2017 07/23/2017 Inactive Xopenex 1.25 mg/3 mL solution for nebulization RxNorm: 899537 USE ONE VIAL IN NEBULIZER THREE TIMES DAILY 05/25/2017 Inactive Protonix 40 mg tablet,delayed release RxNorm: 795851 1 Tablet(s) PO daily 05/08/2017 11/03/2017 Active Protonix 40 mg tablet,delayed release RxNorm: 428807 1 Tablet(s) PO daily 05/04/2017 05/03/2017 Inactive Protonix 40 mg tablet,delayed release RxNorm: 602519 1 Tablet(s) PO daily 05/04/2017 05/07/2017 Inactive promethazine 25 mg tablet RxNorm: 228011 TAKE ONE TABLET BY MOUTH EVERY 6 TO 8 HOURS NEEDED 04/25/2017 No Stop Date Active meloxicam 7.5 mg tablet RxNorm: 877021 1 Tablet(s) PO daily as needed 04/25/2017 04/24/2017 Inactive meloxicam 7.5 mg tablet RxNorm: 793244 1 Tablet(s) PO daily as needed 04/25/2017 05/04/2017 Inactive Kenalog 40 mg/mL suspension for injection RxNorm: 0340939 1 Milliliter(s) Inj 04/24/2017 04/24/2017 Inactive cyclobenzaprine 5 mg tablet RxNorm: 761978 1/2 Tablet(s) PO TID as needed muscle spasms 04/24/2017 04/28/2017 Inactive Xopenex HFA 45 mcg/actuation aerosol inhaler RxNorm: 384234 INHALE ONE PUFF INTO LUNGS NEEDED 03/30/2017 04/14/2017 Inactive Humalog KwikPen 200 unit/mL (3 mL) subcutaneous RxNorm: 5503279 INJECT 35 UNITS SUBCUTANEOUSLY BEFORE MEAL(S) 03/30/2017 06/05/2017 Inactive promethazine 25 mg tablet RxNorm: 620771 Tablet(s) TAKE ONE TABLET BY MOUTH EVERY 6 TO 8 HOURS NEEDED 03/12/20172016 Inactive cyclobenzaprine 10 mg tablet RxNorm: 200155 TAKE ONE TABLET BY MOUTH ONCE DAILY NEEDED 03/06/2017 03/15/2017 Inactive lidocaine 5 % topical patch RxNorm: 7177400 USE ONE PATCH TOPICALLY DAILY. 12 HOURS ON AND THEN 12 HOURS OFF. 03/06/2017 03/15/2017 Inactive Humalog KwikPen 200 unit/mL (3 mL) subcutaneous RxNorm: 7420538 INJECT 35 UNITS SUBCUTANEOUSLY BEFORE MEAL(S) 02/20/2017 03/25/2017 Inactive promethazine 25 mg tablet RxNorm: 242684 Tablet(s) TAKE ONE TABLET BY MOUTH EVERY 6 TO 8 HOURS NEEDED 02/20/20172016 Inactive Xopenex HFA 45 mcg/actuation aerosol inhaler RxNorm: 963253 INHALE ONE PUFF INTO LUNGS NEEDED 02/20/2017 03/07/2017 Inactive bumetanide 1 mg tablet RxNorm: 818880 TAKE ONE TABLET BY MOUTH TWICE DAILY 02/15/2017 05/15/2017 Inactive bumetanide 1 mg tablet RxNorm: 011037 TAKE ONE TABLET BY MOUTH TWICE DAILY 01/15/2017 02/13/2017 Inactive metoprolol succinate ER 100 mg tablet,extended release 24 hr RxNorm: 170636 TAKE ONE TABLET BY MOUTH ONCE DAILY 01/11/2017 06/19/2017 Inactive Zithromax Z-Rashid 250 mg tablet RxNorm: 137865 1 Tablet(s) PO UD 01/09/2017 03/13/2017 Inactive meclizine 25 mg tablet RxNorm: 567481 1 Tablet(s) PO TID as needed 01/09/2017 01/18/2017 Inactive Kenalog 40 mg/mL suspension for injection RxNorm: 5090873 Milliliter(s) Inj 01/09/2017 01/09/2017 Inactive promethazine 25 mg tablet RxNorm: 254224 Tablet(s) TAKE ONE TABLET BY MOUTH EVERY 6 TO 8 HOURS NEEDED 12/29/20162016 Inactive Voltaren 1 % topical gel RxNorm: 993368 APPLY TOPICALLY TO AFFECTED AREA TWICE DAILY 12/25/2016 01/13/2017 Inactive cyclobenzaprine 10 mg tablet RxNorm: 294780 TAKE ONE TABLET BY MOUTH NEEDED 12/22/2016 12/31/2016 Inactive lidocaine 5 % topical patch RxNorm: 2649528 USE ONE PATCH TOPICALLY DAILY. 12 HOURS ON AND THEN 12 HOURS OFF. 12/22/2016 12/31/2016 Inactive hydrocodone 7.5 mg-acetaminophen 325 mg tablet RxNorm: 661175 1 Tablet(s) PO Q4H as needed 12/22/2016 01/20/2017 Inactive bumetanide 1 mg tablet RxNorm: 981987 TAKE ONE TABLET BY MOUTH TWICE DAILY 12/17/2016 01/14/2017 Inactive promethazine 25 mg tablet RxNorm: 418816 Tablet(s) TAKE ONE TABLET BY MOUTH EVERY 6 TO 8 HOURS NEEDED 11/16/20162016 Inactive spironolactone 50 mg tablet RxNorm: 418774 TAKE ONE TABLET BY MOUTH TWICE DAILY 11/15/2016 05/13/2017 Inactive Basaglar KwikPen 100 unit/mL (3 mL) subcutaneous RxNorm: 7424450 Unit(s) INJECT 35 UNITS IN THE MORNING AND 50 UNITS IN THE EVENING SUBCUTANEOUSLY 11/15/2016 03/14/2017 Inactive cyclobenzaprine 10 mg tablet RxNorm: 673781 TAKE ONE TABLET BY MOUTH NEEDED 11/15/2016 12/04/2016 Inactive lidocaine 5 % topical patch RxNorm: 8143748 1 Patch TOP daily . 12 HOURS ON, 12 HOURS OFF 11/15/2016 12/04/2016 Inactive lidocaine 4 % topical patch RxNorm: 4289846 1 Patch TOP on for 12 hours and off for 12 hours 11/14/2016 11/14/2016 Inactive promethazine 25 mg tablet RxNorm: 989082 TAKE ONE TABLET BY MOUTH EVERY 6 TO 8 HOURS NEEDED 11/14/2016 11/15/2016 Inactive Basaglar KwikPen 100 unit/mL (3 mL) subcutaneous RxNorm: 3029926 INJECT 35 UNITS IN THE MORNING AND 50 UNITS IN THE EVENING SUBCUTANEOUSLY 11/14/2016 Inactive cyclobenzaprine 10 mg tablet RxNorm: 603573 TAKE ONE TABLET BY MOUTH NEEDED 11/14/2016 11/14/2016 Inactive spironolactone 50 mg tablet RxNorm: 725059 TAKE ONE TABLET BY MOUTH TWICE DAILY 11/14/2016 11/14/2016 Inactive Diflucan 150 mg tablet RxNorm: 499102 1 Tablet(s) PO as needed prophylactic after sexual intercourse 10/30/2016 No Stop Date Active hydrocodone 7.5 mg-acetaminophen 325 mg tablet RxNorm: 065838 1 Tablet(s) PO Q4H as needed 10/30/2016 11/28/2016 Inactive clotrimazole 100 mg vaginal tablet RxNorm: 312967 1 Tablet(s) VAG QW 10/30/2016 11/28/2016 Inactive Humalog KwikPen 200 unit/mL (3 mL) subcutaneous RxNorm: 2351113 35 Unit(s) SQ AC 10/30/2016 02/19/2017 Inactive QS 30 day supply Bydureon 2 mg/0.65 mL subcutaneous pen injector RxNorm: 3913770 2 Milligram(s) SQ QW 10/30/2016 11/28/2016 Inactive Basaglar KwikPen 100 unit/mL (3 mL) subcutaneous RxNorm: 8656256 Unit(s) SQ 35 units in the morning and 50 units in the evening 10/30/2016 11/13/2016 Inactive QS 30 day supply cyclobenzaprine 10 mg tablet RxNorm: 964200 TAKE ONE TABLET BY MOUTH NEEDED 10/27/2016 11/05/2016 Inactive Diflucan 150 mg tablet RxNorm: 884539 1 Tablet(s) PO daily x 7 days then once a week 10/27/2016 10/29/2016 Inactive promethazine 25 mg tablet RxNorm: 176615 TAKE ONE TABLET BY MOUTH EVERY 6 TO 8 HOURS NEEDED 10/27/2016 11/10/2016 Inactive Diflucan 150 mg tablet RxNorm: 442045 1 Tablet(s) PO daily x 7 days then once a week 10/09/2016 10/15/2016 Inactive Diflucan 150 mg tablet RxNorm: 967889 1 Tablet(s) PO daily 10/201609/26/2016 Inactive Cipro 500 mg tablet RxNorm: 949580 1 Tablet(s) PO BID 201609/21/2016 Inactive Flagyl 500 mg tablet RxNorm: 703135 1 Tablet(s) PO TID 201609/21/2016 Inactive Diflucan 150 mg tablet RxNorm: 823043 1 Tablet(s) PO daily 09/12/2016 Inactive hydrocodone 7.5 mg-acetaminophen 325 mg tablet RxNorm: 653086 1 Tablet(s) PO Q4H as needed 07/12/2016 08/10/2016 Inactive Xopenex 1.25 mg/3 mL solution for nebulization RxNorm: 228241 3 Milliliter(s) INH TID 06/16/2016 05/24/2017 Inactive cefdinir 300 mg capsule RxNorm: 018138 1 Capsule(s) PO BID 06/25/2016 Inactive Mobic 7.5 mg tablet RxNorm: 676029 1 Tablet(s) PO daily 201506/25/2016 Inactive Levaquin 500 mg tablet RxNorm: 906715 1 Tablet(s) PO daily 06/22/2016 Inactive cyclobenzaprine 10 mg tablet RxNorm: 202925 1 Tablet(s) PO PRN as needed 06/14/2016 06/23/2016 Inactive promethazine 25 mg tablet RxNorm: 328734 TAKE ONE TABLET BY MOUTH EVERY 6 TO 8 HOURS NEEDED 06/14/2016 06/28/2016 Inactive Xopenex HFA 45 mcg/actuation aerosol inhaler RxNorm: 319001 1 Puff(s) INH PRN 06/14/2016 07/15/2016 Inactive pen needle, diabetic 32 gauge x 5/16" RxNorm: 1 use Miscellaneous AC & HS 06/13/2016 No Stop Date Active QS 30 day supply Humalog KwikPen 200 unit/mL (3 mL) subcutaneous RxNorm: 6393280 10 Unit(s) SQ AC 06/13/2016 10/29/2016 Inactive QS 30 day supply Basaglar KwikPen 100 unit/mL (3 mL) subcutaneous RxNorm: 0971186 22 units in the morning and 35 in the evening. Unit(s) SQ 06/13/2016 10/29/2016 Inactive QS 30 day supply Tivorbex 20 mg capsule RxNorm: 5833592 1 Capsule(s) PO TID as needed 06/13/2016 06/13/2016 Inactive metoprolol succinate ER 100 mg tablet,extended release 24 hr RxNorm: 629321 TAKE ONE TABLET BY MOUTH ONCE DAILY 06/13/2016 10/10/2016 Inactive hydrocodone 7.5 mg-acetaminophen 325 mg tablet RxNorm: 558961 1 Tablet(s) PO Q4H as needed 06/13/2016 07/11/2016 Inactive Voltaren 1 % topical gel RxNorm: 578413 APPLY TOPICALLY TO AFFECTED AREA TWICE DAILY 05/30/2016 07/08/2016 Inactive alprazolam 0.5 mg tablet RxNorm: 284344 1 Tablet(s) PO Q8 as needed 05/19/2016 No Stop Date Active cyclobenzaprine 10 mg tablet RxNorm: 685222 1 Tablet(s) PO PRN as needed 05/19/2016 05/28/2016 Inactive bumetanide 1 mg tablet RxNorm: 712749 TAKE ONE TABLET BY MOUTH TWICE DAILY 05/19/2016 06/17/2016 Inactive Sprintec (28) 0.25 mg-35 mcg tablet RxNorm: 490166 1 Tablet(s) PO UD 05/08/2016 No Stop Date Active Lantus Solostar 100 unit/mL (3 mL) subcutaneous insulin pen RxNorm: 009624 Unit( s) SQ UD 15units qam 30 units qhs 05/08/2016 No Stop Date Active Humalog KwikPen 200 unit/mL (3 mL) subcutaneous RxNorm: 9534339 10 Unit(s) SQ AC 05/08/2016 06/12/2016 Inactive bumetanide 1 mg tablet RxNorm: 606682 TAKE ONE TABLET BY MOUTH TWICE DAILY 04/28/2016 05/18/2016 Inactive Voltaren 1 % topical gel RxNorm: 868865 1 Application TOP BID 04/28/2016 05/07/2016 Inactive cyclobenzaprine 10 mg tablet RxNorm: 092670 1 Tablet(s) PO PRN as needed 04/28/2016 05/07/2016 Inactive hydrocodone 7.5 mg-acetaminophen 325 mg tablet RxNorm: 489460 1 Tablet(s) PO Q4H as needed 04/18/2016 05/16/2016 Inactive Lantus Solostar 100 unit/mL (3 mL) subcutaneous insulin pen RxNorm: 183848 Unit( s) SQ UD 10 units QHS x5 days, if sugars are over 200 increase to 15 units x 5 days, if sugars over 200 increase to 20 units. 04/14/2016 05/07/2016 Inactive lidocaine 4 % topical patch RxNorm: 0625868 1 Patch TOP on for 12 hours and off for 12 hours 04/13/2016 11/13/2016 Inactive Voltaren 1 % topical gel RxNorm: 687715 1 Application TOP BID 04/10/2016 04/27/2016 Inactive metformin ER 500 mg 24 hr tablet,extended release RxNorm: 607084 1 Tablet(s) PO daily 04/06/2016 05/05/2016 Inactive Kenalog 40 mg/mL suspension for injection RxNorm: 8767379 1 Milliliter(s) Inj 04/06/2016 04/06/2016 Inactive cyclobenzaprine 10 mg tablet RxNorm: 083014 1 Tablet(s) PO PRN as needed 04/06/2016 04/27/2016 Inactive WelChol 3.75 gram oral powder packet RxNorm: 027961 1 packet PO daily 04/06/2016 07/04/2016 Inactive alprazolam 0.5 mg tablet RxNorm: 544018 1 Tablet(s) PO Q8 as needed 03/30/2016 06/19/2017 Inactive Levaquin 500 mg tablet RxNorm: 520063 1 Tablet(s) PO daily 04/05/2016 Inactive metoprolol succinate ER 100 mg tablet,extended release 24 hr RxNorm: 117344 TAKE ONE TABLET BY MOUTH ONCE DAILY 03/16/2016 06/12/2016 Inactive Levaquin 500 mg tablet RxNorm: 910890 1 Tablet(s) PO daily 03/14/2016 Inactive prednisone 20 mg tablet RxNorm: 760478 2 Tablet(s) PO daily 03/12/2016 Inactive Phenergan with Codeine Syrup RxNorm: 5-10 ML PO QID as needed cough 02/28/2016 No Stop Date Active Xopenex HFA 45 mcg/actuation aerosol inhaler RxNorm: 310148 1 Puff(s) INH PRN 02/28/2016 06/13/2016 Inactive Kenalog 40 mg/mL suspension for injection RxNorm: 8632352 1 Milliliter(s) Inj 02/28/2016 02/28/2016 Inactive Zithromax Z-Rashid 250 mg tablet RxNorm: 726549 1 Tablet(s) PO UD 02/28/2016 03/27/2016 Inactive alprazolam 0.5 mg tablet RxNorm: 114326 1 Tablet(s) PO Q8 as needed 02/24/2016 06/19/2017 Inactive glipizide 5 mg tablet RxNorm: 194331 1 Tablet(s) PO daily 201505/16/2016 Inactive Actos 15 mg tablet RxNorm: 697139 1 Tablet(s) PO daily 201502/16/2016 Inactive gabapentin 100 mg capsule RxNorm: 085082 1 Capsule(s) PO QHS 03/12/2016 Inactive gabapentin 100 mg capsule RxNorm: 639283 1 Capsule(s) PO QHS 01/12/2016 Inactive Bydureon 2 mg/0.65 mL subcutaneous pen injector RxNorm: 5925247 1 Milliliter(s) SQ QW 01/12/2016 01/11/2016 Inactive Bydureon 2 mg/0.65 mL subcutaneous pen injector RxNorm: 3313713 2/0.65ml Milligram (s) SQ QW 01/12/2016 05/16/2016 Inactive Bydureon 2 mg/0.65 mL subcutaneous pen injector RxNorm: 8572584 1 Milliliter(s) SQ QW 01/12/2016 01/11/2016 Inactive bumetanide 1 mg tablet RxNorm: 930696 TAKE ONE TABLET BY MOUTH TWICE DAILY 01/10/2016 04/08/2016 Inactive promethazine 25 mg tablet RxNorm: 387802 Tablet(s) Tablet(s) 1 Tablet(s) PO Q6-8H as needed 12/16/2015 04/13/2016 Inactive promethazine 25 mg tablet RxNorm: 450367 Tablet(s) 1 Tablet(s) PO Q6-8H as needed 12/10/2015 12/15/2015 Inactive Trulicity 0.75 mg/0.5 mL subcutaneous pen injector RxNorm: 7316679 INJECT ONE- HALF ML SUBCUTANEOUSLY ONCE A WEEK 12/10/2015 01/11/2016 Inactive glipizide 5 mg tablet RxNorm: 561961 1 Tablet(s) PO daily 201501/17/2016 Inactive bumetanide 1 mg tablet RxNorm: 062128 TAKE ONE TABLET BY MOUTH TWICE DAILY 12/10/2015 01/08/2016 Inactive promethazine 25 mg tablet RxNorm: 269334 Tablet(s) 1 Tablet(s) PO Q6-8H as needed 11/18/2015 12/09/2015 Inactive promethazine 25 mg tablet RxNorm: 075230 1 Tablet(s) PO Q6-8H as needed 11/16/2015 11/17/2015 Inactive glipizide 5 mg tablet RxNorm: 204178 1/2 Tablet(s) PO daily 12/15/2015 Inactive promethazine 25 mg tablet RxNorm: 962636 Tablet(s) 1 Tablet(s) PO Q6-8H as needed 11/11/2015 12/10/2015 Inactive metoprolol tartrate 50 mg tablet RxNorm: 570505 1 Tablet(s) PO BID 11/11/2015 02/08/2016 Inactive Trulicity 0.75 mg/0.5 mL subcutaneous pen injector RxNorm: 0513720 .5 Milliliter(s ) SQ QW 11/11/2015 01/11/2016 Inactive promethazine 25 mg tablet RxNorm: 291839 1 Tablet(s) PO Q6-8H as needed 10/28/2015 11/10/2015 Inactive nystatin 100,000 unit/gram topical cream RxNorm: 333639 1 Gram(s) TOP BID 10/27/2015 No Stop Date Active alprazolam 0.5 mg tablet RxNorm: 490630 1 Tablet(s) PO Q8 as needed 10/27/2015 03/29/2016 Inactive hydrocodone 7.5 mg-acetaminophen 325 mg tablet RxNorm: 124630 1 Tablet(s) PO Q4H as needed 10/27/2015 11/25/2015 Inactive Trulicity 0.75 mg/0.5 mL subcutaneous pen injector RxNorm: 7521479 .5 Milliliter(s ) SQ QW 10/27/2015 11/10/2015 Inactive glipizide 5 mg tablet RxNorm: 454564 1 Tablet(s) PO daily 201511/25/2015 Inactive hydrocodone 7.5 mg-acetaminophen 325 mg tablet RxNorm: 333129 1 Tablet(s) PO Q4H as needed 10/26/2015 10/26/2015 Inactive alprazolam 0.5 mg tablet RxNorm: 349872 1 Tablet(s) PO PRN as needed 10/26/2015 10/26/2015 Inactive promethazine 25 mg tablet RxNorm: 862729 1 Tablet(s) PO Q6-8H as needed 10/26/2015 11/15/2015 Inactive glipizide 5 mg tablet RxNorm: 134693 1/2 Tablet(s) PO daily 10/26/2015 Inactive cefdinir 300 mg capsule RxNorm: 925879 1 Capsule(s) PO BID 10/14/2015 Inactive prednisone 20 mg tablet RxNorm: 655723 2 Tablet(s) PO daily 10/09/2015 Inactive Diflucan 150 mg tablet RxNorm: 825454 1 Tablet(s) PO daily 10/11/2015 Inactive Invokamet 50 mg-500 mg tablet RxNorm: 9154255 1 Tablet(s) PO daily 10/05/2015 11/03/2015 Inactive alprazolam 0.5 mg tablet RxNorm: 700363 1 Tablet(s) PO PRN as needed 10/01/2015 02/23/2016 Inactive promethazine 25 mg tablet RxNorm: 980883 1 Tablet(s) PO Q6-8H as needed 09/30/2015 10/25/2015 Inactive bumetanide 1 mg tablet RxNorm: 861384 TAKE ONE TABLET BY MOUTH TWICE DAILY 09/30/2015 10/29/2015 Inactive bumetanide 1 mg tablet RxNorm: 897980 TAKE ONE TABLET BY MOUTH TWICE DAILY 09/20/2015 12/18/2015 Inactive bumetanide 1 mg tablet RxNorm: 254450 1 Tablet(s) PO BID 201510/19/2015 Inactive metoprolol succinate ER 100 mg tablet,extended release 24 hr RxNorm: 700787 1 Tablet(s) PO daily 09/16/2015 03/13/2016 Inactive spironolactone 50 mg tablet RxNorm: 785857 1 Tablet(s) PO BID 09/16/2015 03/13/2016 Inactive alprazolam 0.5 mg tablet RxNorm: 025910 1 Tablet(s) PO PRN as needed 09/16/2015 10/25/2015 Inactive hydrocodone 7.5 mg-acetaminophen 325 mg tablet RxNorm: 469571 1 Tablet(s) PO Q4H as needed 09/16/2015 10/25/2015 Inactive Invokamet 50 mg-1,000 mg tablet RxNorm: 5906663 1 Tablet(s) PO daily 09/06/2015 09/05/2015 Inactive Invokamet 50 mg-1,000 mg tablet RxNorm: 5724539 1 Tablet(s) PO daily 09/06/2015 12/04/2015 Inactive promethazine 25 mg tablet RxNorm: 770092 TAKE ONE TABLET BY MOUTH EVERY 6 TO 8 HOURS NEEDED 09/01/2015 09/16/2015 Inactive promethazine 25 mg tablet RxNorm: 242859 1 Tablet(s) PO Q6-8H as needed 08/27/2015 09/25/2015 Inactive metoprolol succinate ER 100 mg tablet,extended release 24 hr RxNorm: 262403 1 Tablet(s) PO daily 08/20/2015 09/15/2015 Inactive bumetanide 1 mg tablet RxNorm: 519965 1 Tablet(s) PO BID 201509/18/2015 Inactive Bumex 1 mg tablet RxNorm: 554930 1 Tablet(s) PO BID 201511/15/2015 Inactive Kenalog 40 mg/mL suspension for injection RxNorm: 9449226 Milliliter(s) Inj 08/20/2015 08/20/2015 Inactive bumetanide 1 mg tablet RxNorm: 788453 1 Tablet(s) PO BID 201508/19/2015 Inactive Levaquin 500 mg tablet RxNorm: 981389 1 Tablet(s) PO daily 09/201508/26/2015 Inactive promethazine 25 mg tablet RxNorm: 949023 1 Tablet(s) PO Q6-8H as needed 08/06/2015 08/26/2015 Inactive metformin 500 mg tablet RxNorm: 963010 Tablet(s) PO 500mg in the morning and 1000mg at night No Start Date 09/16/2015 Inactive Lantus Solostar 100 unit/mL (3 mL) subcutaneous insulin pen RxNorm: 657872 Unit( s) SQ UD 10 units QHS x 5 days, if blood sugars are above 200 increase to 15 units x 5 days, if still 200 increase to 20 units. No Start Date 04/13/2016 Inactive alprazolam 0.5 mg tablet RxNorm: 645651 1 Tablet(s) PO PRN as needed No Start Date 09/15/2015 Inactive cyclobenzaprine 10 mg tablet RxNorm: 599948 1 Tablet(s) PO PRN as needed No Start Date 04/05/2016 Inactive lidocaine 4 % topical patch RxNorm: 5366345 1 Patch TOP on for 12 hours and off for 12 hours No Start Date 04/12/2016 Inactive metoprolol tartrate 50 mg tablet RxNorm: 692884 1 Tablet(s) PO BID No Start Date 11/10/2015 Inactive spironolactone 50 mg tablet RxNorm: 413508 1 Tablet(s) PO BID No Start Date 09/15/2015 Inactive hydrocodone 7.5 mg-acetaminophen 325 mg tablet RxNorm: 635522 1 Tablet(s) PO Q4H as needed No Start Date 09/15/2015 Inactive promethazine 25 mg tablet RxNorm: 499282 1 Tablet(s) PO PRN as needed No Start Date 08/05/2015 Inactive Medication Administered Medication Codes Instructions Start Date Status Kenalog 40 mg/mL suspension for injection RxNorm: 1688451 1Milliliter 04/24/2017 No longer Active Kenalog 40 mg/mL suspension for injection RxNorm: 5791382 Milliliter 01/09/2017 No longer Active Kenalog 40 mg/mL suspension for injection RxNorm: 3675108 1Milliliter 04/06/2016 No longer Active Kenalog 40 mg/mL suspension for injection RxNorm: 7281485 1Milliliter 02/28/2016 No longer Active Kenalog 40 mg/mL suspension for injection RxNorm: 9626603 Milliliter 08/20/2015 No longer Active Immunizations Vaccine Codes Date Status Influenza CVX: 141 04/24/2017 completed Pneumococcal (Adult) CVX: 33 04/13/2016 completed Influenza CVX: 141 03/30/2016 completed Assessments Condition Codes Effective Dates Polycystic ovarian syndrome ICD-10: E28.2 ICD-9: 256.4 06/13/2017 Other obesity due to excess calories ICD-10: E66.09 ICD-9: 278.00 06/13/2017 Candidiasis of vulva and vagina ICD-10: B37.3 ICD-9: 112.1 06/07/2017 Dyspnea, unspecified ICD-10: R06.00 ICD-9: 786.09 06/07/2017 Pain in left foot ICD-10: M79.672 ICD-9: 729.5 06/07/2017 Localized edema ICD-10: R60.0 ICD-9: 782.3 06/07/2017 Rash and other nonspecific skin eruption ICD-10: R21 ICD-9: 782.1 06/07/2017 Sacroiliitis, not elsewhere classified ICD-10: M46.1 ICD-9: 720.2 04/24/2017 VACCIN FOR INFLUENZA ICD-10: Z23 ICD-9: V04.81 04/24/2017 Low back pain ICD-10: M54.5 ICD-9: 724.2 04/24/2017 Other allergic rhinitis ICD-10: J30.89 ICD-9: 477.8 01/09/2017 Acute suppurative otitis media without spontaneous rupture of ear drum, right ear ICD-10: H66.001 ICD-9: 382.00 01/09/2017 Type 2 diabetes mellitus with hyperglycemia ICD-10: E11.65 ICD-9: 250.02 10/30/2016 Umbilical hernia without obstruction or gangrene ICD-10: K42.9 ICD-9: 553.1 09/12/2016 Epigastric pain ICD-10: R10.13 ICD-9: 789.06 09/05/2016 Acute laryngopharyngitis ICD-10: J06.0 ICD-9: 465.0 06/16/2016 Type 2 diabetes mellitus without complications ICD-10: E11.9 ICD-9: 250.00 05/05/2016 Encounter for immunization ICD-10: Z23 ICD-9: V05.9 04/13/2016 Pain in right shoulder ICD-10: M25.511 ICD-9: 719.41 04/10/2016 Other muscle spasm ICD-10: M62.838 ICD-9: 728.85 04/06/2016 Acne vulgaris ICD-10: L70.0 ICD-9: 706.1 03/08/2016 Morbid (severe) obesity due to excess calories ICD-10: E66.01 ICD-9: 278.01 03/08/2016 Acute bronchitis due to other specified organisms ICD-10: J20.8 ICD-9: 466.0 03/08/2016 Other acute sinusitis ICD-10: J01.80 ICD-9: 461.8 03/08/2016 Localized enlarged lymph nodes ICD-10: R59.0 ICD-9: 785.6 02/28/2016 Encounter for gynecological examination (general) (routine) without abnormal findings ICD-10: Z01.419 ICD-9: V72.31 12/23/2015 Excessive and frequent menstruation with irregular cycle ICD -10: N92.1 ICD-9: 626.2 12/23/2015 Other insomnia ICD-10: G47.09 ICD-9: 327.09 10/13/2015 Allergic rhinitis due to pollen ICD-10: J30.1 ICD-9: 477.0 10/05/2015 Acute recurrent maxillary sinusitis ICD-10: J01.01 ICD-9: 461.0 10/05/2015 Other skin changes ICD-10: R23.8 ICD-9: 709.8 09/01/2015 Other abnormal glucose ICD-10: R73.09 ICD-9: 790.29 09/01/2015 Essential (primary) hypertension ICD-10: I10 ICD-9: 401.9 08/20/2015 Snoring ICD-10: R06.83 ICD-9: 786.09 08/03/2015 Obstructive sleep apnea (adult) (pediatric) ICD-10: G47.33 ICD-9: 327.23 08/03/2015 Reason For Visit Reason For Visit Effective Dates Notes shortness of breath 06/07/2017 rash vaccination against influenza 04/24/2017 headache 01/09/2017 vaginal discharge 10/30/2016 vaginal discharge 10/09/2016 abdominal pain 09/12/2016 flank pain 09/05/2016 sinus congestion 06/16/2016 diabetes mellitus 06/13/2016 diabetes mellitus 05/19/2016 Hospital Follow Up 05/08/2016 diabetes mellitus 05/05/2016 shoulder pain 04/10/2016 shoulder pain 04/06/2016 vaccination against influenza 03/30/2016 sinus congestion 03/08/2016 sinus congestion 02/28/2016 diabetes mellitus 01/18/2016 well woman exam (40-65 years) 12/23/2015 diabetes mellitus 12/16/2015 diabetes mellitus 11/11/2015 diabetes mellitus 10/27/2015 diabetes mellitus 10/13/2015 cough 10/05/2015 mole check 09/01/2015 cough 08/20/2015 shortness of breath 08/03/2015 Results Observation Observation Code Item Item Code Result Date Cbc With Differential Ord2 WBC 14.30 K/ul 06/13/2017 Cbc With Differential Ord2 RBC 5.06 M/ul 06/13/2017 Cbc With Differential Ord2 HGB 15.3 g/dl 06/13/2017 Cbc With Differential Ord2 Neut% 71.3 % 06/13/2017 Cbc With Differential Ord2 HCT 46.6 % 06/13/2017 Cbc With Differential Ord2 MCV 92.1 fl 06/13/2017 Cbc With Differential Ord2 Lymph% 22.4 % 06/13/2017 Cbc With Differential Ord2 MCH 30.2 pg 06/13/2017 Cbc With Differential Ord2 [place]% 4.9 % 06/13/2017 Cbc With Differential Ord2 MCHC 32.8 pg 06/13/2017 Cbc With Differential Ord2 Eos% 1.0 % 06/13/2017 Cbc With Differential Ord2 PLT 392 K/ul 06/13/2017 Cbc With Differential Ord2 Baso% 0.4 % 06/13/2017 Cbc With Differential Ord2 RDW 14.4 % 06/13/2017 Cbc With Differential Ord2 Neut ABS# 10.18 K/ul 06/13/2017 Cbc With Differential Ord2 Lymph ABS# 3.21 K/ul 06/13/2017 Cbc With Differential Ord2 [place] ABS# 0.7 K/ul 06/13/2017 Cbc With Differential Ord2 Eos ABS# 0.2 K/ul 06/13/2017 Cbc With Differential Ord2 Baso ABS# 0.1 K/ul 06/13/2017 Comp Metabolic Ynp553 NA 139 mEq/L 06/13/2017 Comp Metabolic Woq585 K 4.4 mEq/L 06/13/2017 Comp Metabolic Lad286 CL 100 mEq/L 06/13/2017 Comp Metabolic Pci516 CO2 29.0 mEq/L 06/13/2017 Comp Metabolic Kfj877 ANION GAP 14 06/13/2017 Comp Metabolic Dby173 GLUCOSE 257 mg/dL 06/13/2017 Comp Metabolic Dxx542 Creat 0.5 mg/dL 06/13/2017 Comp Metabolic Qnu809 eGFR 145 ml/min/1.73m2 06/13/2017 Comp Metabolic Igu105 BUN 13 mg/dL 06/13/2017 Comp Metabolic Wxv727 B/C Ratio 26.5 Ratio 06/13/2017 Comp Metabolic Jpg230 CALCIUM 9.7 mg/dL 06/13/2017 Comp Metabolic Mds116 ALK PHOS 98 U/L 06/13/2017 Comp Metabolic Lou707 AST(SGOT) 30 U/L 06/13/2017 Comp Metabolic Hlc603 ALT(SGPT) 43 U/L 06/13/2017 Comp Metabolic Gjk404 BILI T 0.5 mg/dL 06/13/2017 Comp Metabolic Icz149 ALBUMIN 4.0 g/dL 06/13/2017 Comp Metabolic Rgi020 TPRO 6.4 g/dL 06/13/2017 Comp Metabolic Gnp108 GLOB 2.4 g/dL 06/13/2017 Comp Metabolic Qdv706 A/G Ratio 1.7 Ratio 06/13/2017 Comp Metabolic Lgj319 Osmo 286 mOsmo 06/13/2017 Lipid Ord30 CHOL 219 mg/dL 06/13/2017 Lipid Ord30 HDL 40.0 mg/dl 06/13/2017 Lipid Ord30 TRIG 200 mg/dL 06/13/2017 Lipid Ord30 LDL 139 mg/dL 06/13/2017 Lipid Ord30 C/HDL 5.5 Ratio 06/13/2017 Tsh Ord6 hTSH II 1.50 uIU/mL 06/13/2017 %Hba1C Enb922 % HbA1c 47763-7 8.8 % 06/13/2017 %Hba1C Tdw467 Gluc Ave 206 mg/dL 06/13/2017 Comp Metabolic Rur762 NA 136 mEq/L 2016 Comp Metabolic Fns173 K 4.1 mEq/L 2016 Comp Metabolic Erg268 CL 96 mEq/L 2016 Comp Metabolic Mik338 CO2 29.0 mEq/L 2016 Comp Metabolic Txu726 ANION GAP 15 2016 Comp Metabolic Gtj864 GLUCOSE 291 mg/dL 2016 Comp Metabolic Jgm190 Creat 0.4 mg/dL 2016 Comp Metabolic Mdy252 eGFR 165 ml/min/1.73m2 2016 Comp Metabolic Osl884 BUN 11 mg/dL 2016 Comp Metabolic Jmg794 B/C Ratio 25.0 Ratio 2016 Comp Metabolic Gsv471 CALCIUM 9.4 mg/dL 2016 Comp Metabolic Spx034 ALK PHOS 111 U/L 2016 Comp Metabolic Kwb089 AST(SGOT) 46 U/L 2016 Comp Metabolic Eqb664 ALT(SGPT) 60 U/L 2016 Comp Metabolic Hdp295 BILI T 0.4 mg/dL 2016 Comp Metabolic Ugv193 ALBUMIN 4.0 g/dL 2016 Comp Metabolic Srx642 TPRO 6.5 g/dL 2016 Comp Metabolic Phu404 GLOB 2.6 g/dL 2016 Comp Metabolic Vqm832 A/G Ratio 1.5 Ratio 2016 Comp Metabolic Rxi913 Osmo 282 mOsmo 2016 %Hba1C Ufs412 % HbA1c 13709-1 11.1 % 2016 %Hba1C Wwi962 Gluc Ave 272 mg/dL 2016 C-Reactive Protein Qnt Crqnt CRP 4.7 mg/dl 2016 Cbc With Differential Ord2 WBC 14.64 K/ul 2016 Cbc With Differential Ord2 RBC 4.95 M/ul 2016 Cbc With Differential Ord2 HGB 15.1 g/dl 2016 Cbc With Differential Ord2 HCT 46.2 % 2016 Cbc With Differential Ord2 Neut% 69.6 % 2016 Cbc With Differential Ord2 Lymph% 24.1 % 2016 Cbc With Differential Ord2 MCV 93.3 fl 2016 Cbc With Differential Ord2 [place]% 4.7 % 2016 Cbc With Differential Ord2 MCH 30.5 pg 2016 Cbc With Differential Ord2 MCHC 32.7 pg 2016 Cbc With Differential Ord2 Eos% 1.1 % 2016 Cbc With Differential Ord2 PLT 357 K/ul 2016 Cbc With Differential Ord2 Baso% 0.5 % 2016 Cbc With Differential Ord2 RDW 14.2 % 2016 Cbc With Differential Ord2 Neut ABS# 10.18 K/ul 2016 Cbc With Differential Ord2 Lymph ABS# 3.53 K/ul 2016 Cbc With Differential Ord2 [place] ABS# 0.7 K/ul 2016 Cbc With Differential Ord2 Eos ABS# 0.2 K/ul 2016 Cbc With Differential Ord2 Baso ABS# 0.1 K/ul 2016 Lipid Ord30 CHOL 228 mg/dL 05/05/2016 Lipid Ord30 HDL 42.0 mg/dl 05/05/2016 Lipid Ord30 TRIG 168 mg/dL 05/05/2016 Lipid Ord30 LDL 152 mg/dL 05/05/2016 Lipid Ord30 C/HDL 5.4 Ratio 05/05/2016 Comp Metabolic Bts988 NA 135 mEq/L 05/05/2016 Comp Metabolic Fgl279 K 4.1 mEq/L 05/05/2016 Comp Metabolic Wxo292 CL 99 mEq/L 05/05/2016 Comp Metabolic Nor828 CO2 29.0 mEq/L 05/05/2016 Comp Metabolic Szw380 ANION GAP 11 05/05/2016 Comp Metabolic Ish169 GLUCOSE 229 mg/dL 05/05/2016 Comp Metabolic Qiy167 Creat 0.5 mg/dL 05/05/2016 Comp Metabolic Jwd721 eGFR 150 ml/min/1.73m2 05/05/2016 Comp Metabolic Sog864 BUN 14 mg/dL 05/05/2016 Comp Metabolic Kxm683 B/C Ratio 29.2 Ratio 05/05/2016 Comp Metabolic Van419 CALCIUM 9.1 mg/dL 05/05/2016 Comp Metabolic Wlz104 ALK PHOS 112 U/L 05/05/2016 Comp Metabolic Dvv864 AST(SGOT) 59 U/L 05/05/2016 Comp Metabolic Nnk501 ALT(SGPT) 63 U/L 05/05/2016 Comp Metabolic Wsj922 BILI T 0.7 mg/dL 05/05/2016 Comp Metabolic Dzg445 ALBUMIN 3.8 g/dL 05/05/2016 Comp Metabolic Yso592 TPRO 6.5 g/dL 05/05/2016 Comp Metabolic Cta957 GLOB 2.7 g/dL 05/05/2016 Comp Metabolic Ure389 A/G Ratio 1.4 Ratio 05/05/2016 Comp Metabolic Zoy607 Osmo 278 mOsmo 05/05/2016 Cbc With Differential Ord2 WBC 16.31 K/ul 05/05/2016 Cbc With Differential Ord2 RBC 5.03 M/ul 05/05/2016 Cbc With Differential Ord2 HGB 15.2 g/dl 05/05/2016 Cbc With Differential Ord2 Neut% 72.1 % 05/05/2016 Cbc With Differential Ord2 HCT 45.9 % 05/05/2016 Cbc With Differential Ord2 Lymph% 22.0 % 05/05/2016 Cbc With Differential Ord2 MCV 91.3 fl 05/05/2016 Cbc With Differential Ord2 [place]% 4.4 % 05/05/2016 Cbc With Differential Ord2 MCH 30.2 pg 05/05/2016 Cbc With Differential Ord2 MCHC 33.1 pg 05/05/2016 Cbc With Differential Ord2 Eos% 0.9 % 05/05/2016 Cbc With Differential Ord2 Baso% 0.6 % 05/05/2016 Cbc With Differential Ord2 PLT 387 K/ul 05/05/2016 Cbc With Differential Ord2 Neut ABS# 11.77 K/ul 05/05/2016 Cbc With Differential Ord2 RDW 14.8 % 05/05/2016 Cbc With Differential Ord2 Lymph ABS# 3.59 K/ul 05/05/2016 Cbc With Differential Ord2 [place] ABS# 0.7 K/ul 05/05/2016 Cbc With Differential Ord2 Eos ABS# 0.1 K/ul 05/05/2016 Cbc With Differential Ord2 Baso ABS# 0.1 K/ul 05/05/2016 %Hba1C Syx617 % HbA1c 73792-9 10.4 % 05/05/2016 %Hba1C Stc623 Gluc Ave 252 mg/dL 05/05/2016 Hcg Beta Subunit Qual Serum 642644 B-HCG QUALITATIVE NEGATIVE 12/27/2015 GC/CHL PRB 3875646 Chl trach DNA Negative 12/25/2015 GC/CHL PRB 9289959 GC PROBE Negative 12/25/2015 Cbc With Differential/Platelet 30156 WBC 16.67 thou/uL 2015 Cbc With Differential/Platelet 14069 RBC 5.11 mil/uL 2015 Cbc With Differential/Platelet 89475 HEMOGLOBIN 14.8 g/dL 12/17/2015 Cbc With Differential/Platelet 12041 HEMATOCRIT 48.7 % 06/2015 Cbc With Differential/Platelet 59986 MCV 95.4 fL 12/17/2015 Cbc With Differential/Platelet 29232 MCH 29.0 pg 12/17/2015 Cbc With Differential/Platelet 26721 MCHC 30.4 g/dL 2015 Cbc With Differential/Platelet 39876 RDW- CV 14.6 % 12/17/2015 Cbc With Differential/Platelet 07892 PLATELET COUNT 471 thou/uL 12/17/2015 Cbc With Differential/Platelet 01022 NEUTROPHIL % 71.3 % Cbc With Differential/Platelet 72251 LYMPHOCYTE % 22.4 % Cbc With Differential/Platelet 16650 MONOCYTE % 4.8 % 12/16 Cbc With Differential/Platelet 79802 EOS % 0.7 % 12/17/2015 Cbc With Differential/Platelet 11928 BASO % 0.7 % 2015 Cbc With Differential/Platelet 11243 NEUTROPHIL ABS # 11.89 thou/uL 12/17/2015 Cbc With Differential/Platelet 24553 LYMPH ABS # 3.73 thou/uL 12/17/2015 Cbc With Differential/Platelet 47727 MONOCYTE ABS # 0.80 thou/uL 12/17/2015 Cbc With Differential/Platelet 53308 EOS ABS # 0.12 thou/uL 06/2015 Cbc With Differential/Platelet 73624 BASO ABS # 0.12 thou/uL 12/17/2015 Comp. Metabolic Panel (14) 36168 GLUCOSE 136 mg/dL 12/17/2015 Comp. Metabolic Panel (14) 05966 BUN 9 mg/dL 12/17/2015 Comp. Metabolic Panel (14) 63043 CREATININE 0.67 mg/dL 12/17/2015 Comp. Metabolic Panel (14) 89783 SODIUM 136 mmol/L 12/17/2015 Comp. Metabolic Panel (14) 21694 POTASSIUM 4.4 mmol/L 12/17/2015 Comp. Metabolic Panel (14) 81264 CHLORIDE 95 mmol/L 06/2015 Comp. Metabolic Panel (14) 76143 CARBON DIOXIDE 28 mmol/L 06/2015 Comp. Metabolic Panel (14) 13654 CALCIUM 10.1 mg/dL 2015 Comp. Metabolic Panel (14) 99418 TOTAL PROTEIN 7.0 g/dL 12/16 Comp. Metabolic Panel (14) 11639 ALBUMIN 4.5 g/dL 12/17/2015 Comp. Metabolic Panel (14) 60897 ALKALINE PHOSPHATASE 87 U/L 12/17/2015 Comp. Metabolic Panel (14) 60145 TOTAL BILIRUBIN 0.5 mg/dL Comp. Metabolic Panel (14) 40885 SGOT ( AST) 38 U/L 2015 Comp. Metabolic Panel (14) 13372 SGPT ( ALT) 41 U/L 2015 Comp. Metabolic Panel (14) 38903 eGFR (mL /min/1.73m2) >60 06/2015 Comp. Metabolic Panel (14) 81878 12/17/2015 Cbc With Differential/Platelet WBC 17.26 thou/uL 11/13/2015 Cbc With Differential/Platelet RBC 5.43 mil/uL 11/13/2015 Cbc With Differential/Platelet HEMOGLOBIN 16.2 g/dL 11/13/2015 Cbc With Differential/Platelet HEMATOCRIT 53.4 % Cbc With Differential/Platelet MCV 98.3 fL 11/13/2015 Cbc With Differential/Platelet MCH 29.8 pg 11/13/2015 Cbc With Differential/Platelet MCHC 30.4 g/dL 11/13/2015 Cbc With Differential/Platelet RDW-CV 15.2 % 11/13/2015 Cbc With Differential/Platelet PLATELET COUNT 453 thou/uL Cbc With Differential/Platelet NEUTROPHIL % 74.1 % Cbc With Differential/Platelet LYMPHOCYTE % 19.3 % Cbc With Differential/Platelet MONOCYTE % 4.9 % 11/13/2015 Cbc With Differential/Platelet EOS % 0.7 % 11/13/2015 Cbc With Differential/Platelet BASO % 1.1 % 11/13/2015 Cbc With Differential/Platelet NEUTROPHIL ABS # 12.79 thou/uL 11/13/2015 Cbc With Differential/Platelet LYMPH ABS # 3.33 thou/uL Cbc With Differential/Platelet MONOCYTE ABS # 0.85 thou/uL Cbc With Differential/Platelet EOS ABS # 0.12 thou/uL 2015 Cbc With Differential/Platelet BASO ABS # 0.19 thou/uL 2015 Comp. Metabolic Panel (14) GLUCOSE 126 mg/dL 11/13/2015 Comp. Metabolic Panel (14) BUN 10 mg/dL 11/13/2015 Comp. Metabolic Panel (14) CREATININE 0.62 mg/dL 11/13/2015 Comp. Metabolic Panel (14) SODIUM 138 mmol/L 11/13/2015 Comp. Metabolic Panel (14) POTASSIUM 4.3 mmol/L 11/13/2015 Comp. Metabolic Panel (14) CHLORIDE 95 mmol/L 11/13/2015 Comp. Metabolic Panel (14) CARBON DIOXIDE 30 mmol/L Comp. Metabolic Panel (14) CALCIUM 10.5 mg/dL 11/13/2015 Comp. Metabolic Panel (14) TOTAL PROTEIN 7.0 g/dL 11/12 Comp. Metabolic Panel (14) ALBUMIN 4.5 g/dL 11/13/2015 Comp. Metabolic Panel (14) ALKALINE PHOSPHATASE 93 U/L Comp. Metabolic Panel (14) TOTAL BILIRUBIN 0.4 mg/dL Comp. Metabolic Panel (14) SGOT (AST) 51 U/L 11/13/2015 Comp. Metabolic Panel (14) SGPT (ALT) 52 U/L 11/13/2015 Comp. Metabolic Panel (14) eGFR (mL/min/ 1.73m2) >60 2015 Comp. Metabolic Panel (14) 11/13/2015 Hgb A1C With Eag Estimation GLYCOHEMOGLOBIN A1C 08486-5 8.1 % 11/13/2015 Hgb A1C With Eag Estimation ESTIMATED AVG GLUCOSE 186 mg/dL 11/13/2015 Comp. Metabolic Panel (14) 67523 GLUCOSE 84 mg/dL 09/11/2015 Comp. Metabolic Panel (14) 53053 BUN 11 mg/dL 09/11/2015 Comp. Metabolic Panel (14) 98587 CREATININE 0.56 mg/dL 09/11/2015 Comp. Metabolic Panel (14) 93007 SODIUM 142 mmol/L 09/11/2015 Comp. Metabolic Panel (14) 83311 POTASSIUM 4.3 mmol/L 09/11/2015 Comp. Metabolic Panel (14) 44258 CHLORIDE 98 mmol/L Comp. Metabolic Panel (14) 43637 CARBON DIOXIDE 27 mmol/L Comp. Metabolic Panel (14) 54936 CALCIUM 10.1 mg/dL 2015 Comp. Metabolic Panel (14) 75829 TOTAL PROTEIN 7.2 g/dL 09/10 Comp. Metabolic Panel (14) 44798 ALBUMIN 4.7 g/dL 09/11/2015 Comp. Metabolic Panel (14) 73075 ALKALINE PHOSPHATASE 109 U/L 09/11/2015 Comp. Metabolic Panel (14) 07414 TOTAL BILIRUBIN 0.3 mg/dL Comp. Metabolic Panel (14) 62254 SGOT ( AST) 53 U/L 2015 Comp. Metabolic Panel (14) 37628 SGPT ( ALT) 53 U/L 2015 Comp. Metabolic Panel (14) 60690 eGFR (mL /min/1.73m2) >60 Comp. Metabolic Panel (14) 17622 09/11/2015 Lipid Panel 16481 CHOLESTEROL 193 mg/dL 08/11/2015 Lipid Panel 16709 TRIGLYCERIDES 192 mg/dL 08/11/2015 Lipid Panel 47576 HDL 38 mg/dL 08/11/2015 Lipid Panel 94040 CHOLESTEROL/HDL 5.08 08/11/2015 Lipid Panel 20227 LDL (CALCULATED) 117 mg/dL 08/11/2015 Lipid Panel 42391 LDL/HDL 3.08 08/11/2015 Lipid Panel 89249 PHENOTYPE TYPE IV BORDERLINE 08/11/2015 Tsh 473331 TSH 3.220 uIU/mL 08/11/2015 Cbc With Differential/Platelet 91102 WBC 11.76 thou/uL 2015 Cbc With Differential/Platelet 82046 RBC 4.98 mil/uL 2015 Cbc With Differential/Platelet 10062 HEMOGLOBIN 14.2 g/dL 08/11/2015 Cbc With Differential/Platelet 11803 HEMATOCRIT 46.7 % Cbc With Differential/Platelet 05897 MCV 93.8 fL 08/11/2015 Cbc With Differential/Platelet 49093 MCH 28.5 pg 08/11/2015 Cbc With Differential/Platelet 89367 MCHC 30.4 g/dL 2015 Cbc With Differential/Platelet 78607 RDW- CV 14.3 % 08/11/2015 Cbc With Differential/Platelet 71810 PLATELET COUNT 382 thou/uL 08/11/2015 Cbc With Differential/Platelet 08182 NEUTROPHIL % 67.3 % Cbc With Differential/Platelet 14037 LYMPHOCYTE % 24.0 % Cbc With Differential/Platelet 29939 MONOCYTE % 6.0 % 08/11 Cbc With Differential/Platelet 70838 EOS % 1.6 % 08/11/2015 Cbc With Differential/Platelet 59925 BASO % 1.0 % 2015 Cbc With Differential/Platelet 69071 NEUTROPHIL ABS # 7.91 thou/uL 08/11/2015 Cbc With Differential/Platelet 00244 LYMPH ABS # 2.82 thou/uL 08/11/2015 Cbc With Differential/Platelet 96393 MONOCYTE ABS # 0.71 thou/uL 08/11/2015 Cbc With Differential/Platelet 36695 EOS ABS # 0.19 thou/uL Cbc With Differential/Platelet 81861 BASO ABS # 0.12 thou/uL 08/11/2015 Comp. Metabolic Panel (14) 57109 GLUCOSE 183 mg/dL 08/11/2015 Comp. Metabolic Panel (14) 19722 BUN 10 mg/dL 08/11/2015 Comp. Metabolic Panel (14) 89641 CREATININE 0.46 mg/dL 08/11/2015 Comp. Metabolic Panel (14) 09036 SODIUM 138 mmol/L 08/11/2015 Comp. Metabolic Panel (14) 95316 POTASSIUM 4.0 mmol/L 08/11/2015 Comp. Metabolic Panel (14) 27883 CHLORIDE 98 mmol/L Comp. Metabolic Panel (14) 01615 CARBON DIOXIDE 29 mmol/L Comp. Metabolic Panel (14) 39851 CALCIUM 9.4 mg/dL 08/11/2015 Comp. Metabolic Panel (14) 58393 TOTAL PROTEIN 6.8 g/dL 08/11 Comp. Metabolic Panel (14) 84840 ALBUMIN 4.4 g/dL 08/11/2015 Comp. Metabolic Panel (14) 56254 ALKALINE PHOSPHATASE 118 U/L 08/11/2015 Comp. Metabolic Panel (14) 91467 TOTAL BILIRUBIN <0.3 mg/dL 08/11/2015 Comp. Metabolic Panel (14) 99547 SGOT ( AST) 41 U/L 2015 Comp. Metabolic Panel (14) 22517 SGPT ( ALT) 55 U/L 2015 Comp. Metabolic Panel (14) 94673 eGFR (mL /min/1.73m2) >60 Comp. Metabolic Panel (14) 01403 08/11/2015 Review of Systems System Result Effective Dates Constitutional No recent illness 2016 Constitutional No chills 06/07/2017 Constitutional No diaphoresis 06/07/2017 Constitutional No fever 06/07/2017 Eyes No eye erythema 06/07/2017 Ears/Nose/Throat/Neck nasal allergies Ears/Nose/Throat/Neck nasal discharge Cardiovascular No chest pain/pressure Respiratory No cough 06/07/2017 Respiratory dyspnea on exertion 2016 Gastrointestinal No abdominal pain 2016 Musculoskeletal joint complaint 2016 Dermatologic rash 06/07/2017 Neurologic No alteration of consciousness 06/07/2017 Neurologic No mental status change 2016 Constitutional No recent illness 2016 Constitutional No chills 04/24/2017 Constitutional No fever 04/24/2017 Eyes No eye erythema 04/24/2017 Ears/Nose/Throat/Neck No nasal discharge 04/24/2017 Cardiovascular No chest pain/pressure 12/2016 Cardiovascular No dyspnea 04/24/2017 Respiratory No cough 04/24/2017 Respiratory No dyspnea 04/24/2017 Musculoskeletal joint complaint 2016 Neurologic No alteration of consciousness 04/24/2017 Neurologic No mental status change 2016 Constitutional recent illness 01/09/2017 Constitutional No chills 01/09/2017 Constitutional fatigue 01/09/2017 Constitutional No fever 01/09/2017 Eyes No eye erythema 01/09/2017 Constitutional weight loss 01/09/2017 Ears/Nose/Throat/Neck nasal discharge Ears/Nose/Throat/Neck nasal allergies Ears/Nose/Throat/Neck dizziness 2016 Ears/Nose/Throat/Neck otalgia 01/09/2017 Ears/Nose/Throat/Neck postnasal drip Ears/Nose/Throat/Neck sore throat 2016 Cardiovascular No chest pain/pressure Cardiovascular No dyspnea 01/09/2017 Respiratory cough 01/09/2017 Respiratory No dyspnea 01/09/2017 Gastrointestinal No abdominal pain 2016 Gastrointestinal No constipation 2016 Gastrointestinal No diarrhea 01/09/2017 Gastrointestinal No vomiting 01/09/2017 Gastrointestinal nausea 01/09/2017 Musculoskeletal No joint complaint 2016 Dermatologic No rash 01/09/2017 Neurologic No alteration of consciousness 01/09/2017 Neurologic No mental status change 2016 Constitutional recent illness 10/30/2016 Constitutional No chills 10/30/2016 Constitutional No diaphoresis 10/30/2016 Constitutional No fever 10/30/2016 Eyes No eye erythema 10/30/2016 Ears/Nose/Throat/Neck No nasal allergies 10/30/2016 Ears/Nose/Throat/Neck No nasal discharge 10/30/2016 Cardiovascular No chest pain/pressure Respiratory No cough 10/30/2016 Respiratory No dyspnea 10/30/2016 Gastrointestinal No abdominal pain 2016 Genitourinary/Nephrology dysuria 2016 Neurologic No alteration of consciousness 10/30/2016 Neurologic No mental status change 2016 Endocrine diabetes mellitus type 2 2016 Constitutional recent illness 10/09/2016 Constitutional No chills 10/09/2016 Constitutional No diaphoresis 10/09/2016 Constitutional No fever 10/09/2016 Eyes No eye erythema 10/09/2016 Ears/Nose/Throat/Neck No nasal allergies 10/09/2016 Ears/Nose/Throat/Neck No nasal discharge 10/09/2016 Cardiovascular No chest pain/pressure Respiratory No cough 10/09/2016 Respiratory No dyspnea 10/09/2016 Gastrointestinal No abdominal pain 2016 Genitourinary/Nephrology dysuria 2016 Neurologic No alteration of consciousness 10/09/2016 Neurologic No mental status change 2016 Endocrine diabetes mellitus type 2 2016 Constitutional recent illness 09/12/2016 Constitutional obesity 09/12/2016 Constitutional No chills 09/12/2016 Constitutional fatigue 09/12/2016 Constitutional No fever 09/12/2016 Constitutional malaise 09/12/2016 Eyes No eye erythema 09/12/2016 Ears/Nose/Throat/Neck No nasal allergies 09/12/2016 Ears/Nose/Throat/Neck No nasal discharge 09/12/2016 Cardiovascular No chest pain/pressure Respiratory No cough 09/12/2016 Respiratory No dyspnea 09/12/2016 Gastrointestinal abdominal pain 2016 Gastrointestinal No constipation 2016 Gastrointestinal No diarrhea 09/12/2016 Gastrointestinal gastroesophageal reflux 09/12/2016 Gastrointestinal No nausea 09/12/2016 Gastrointestinal No vomiting 09/12/2016 Genitourinary/Nephrology vaginal discharge 09/12/2016 Dermatologic No rash 09/12/2016 Neurologic No alteration of consciousness 09/12/2016 Neurologic No mental status change 2016 Constitutional recent illness 09/05/2016 Constitutional No fever 09/05/2016 Constitutional No chills 09/05/2016 Eyes No eye erythema 09/05/2016 Constitutional malaise 09/05/2016 Constitutional fatigue 09/05/2016 Constitutional obesity 09/05/2016 Ears/Nose/Throat/Neck No nasal allergies 09/05/2016 Ears/Nose/Throat/Neck No nasal discharge 09/05/2016 Cardiovascular No chest pain/pressure Respiratory No cough 09/05/2016 Respiratory No dyspnea 09/05/2016 Gastrointestinal abdominal pain 2016 Gastrointestinal No constipation 2016 Gastrointestinal No diarrhea 09/05/2016 Gastrointestinal No vomiting 09/05/2016 Gastrointestinal No nausea 09/05/2016 Gastrointestinal gastroesophageal reflux 09/05/2016 Genitourinary/Nephrology vaginal discharge 09/05/2016 Dermatologic No rash 09/05/2016 Neurologic No alteration of consciousness 09/05/2016 Neurologic No mental status change 2016 Constitutional recent illness 06/16/2016 Constitutional chills 06/16/2016 Constitutional No diaphoresis 06/16/2016 Constitutional fever 06/16/2016 Eyes No eye erythema 06/16/2016 Ears/Nose/Throat/Neck nasal allergies Ears/Nose/Throat/Neck nasal discharge Ears/Nose/Throat/Neck postnasal drip Ears/Nose/Throat/Neck sinus congestion Ears/Nose/Throat/Neck sore throat 2015 Cardiovascular No chest pain/pressure Cardiovascular No dyspnea 06/16/2016 Respiratory No chest congestion 2015 Respiratory cough 06/16/2016 Respiratory No dyspnea 06/16/2016 Dermatologic No rash 06/16/2016 Neurologic No alteration of consciousness 06/16/2016 Neurologic No mental status change 2015 Ears/Nose/Throat/Neck otalgia 06/16/2016 Respiratory dyspnea on exertion 2015 Constitutional No recent illness 2015 Constitutional obesity 06/13/2016 Constitutional No fever 06/13/2016 Eyes No eye erythema 06/13/2016 Ears/Nose/Throat/Neck No nasal allergies 06/13/2016 Ears/Nose/Throat/Neck No nasal discharge 06/13/2016 Cardiovascular No chest pain/pressure Respiratory No cough 06/13/2016 Neurologic No alteration of consciousness 06/13/2016 Neurologic No mental status change 2015 Constitutional No recent illness 2015 Constitutional obesity 05/19/2016 Constitutional No fever 05/19/2016 Eyes No eye erythema 05/19/2016 Ears/Nose/Throat/Neck No nasal allergies 05/19/2016 Ears/Nose/Throat/Neck No nasal discharge 05/19/2016 Cardiovascular No chest pain/pressure 07/2015 Respiratory No cough 05/19/2016 Neurologic No alteration of consciousness 05/19/2016 Neurologic No mental status change 2015 Constitutional No recent illness 2015 Constitutional obesity 05/08/2016 Constitutional No fever 05/08/2016 Eyes No eye erythema 05/08/2016 Ears/Nose/Throat/Neck No nasal allergies 05/08/2016 Ears/Nose/Throat/Neck No nasal discharge 05/08/2016 Cardiovascular No chest pain/pressure Respiratory No cough 05/08/2016 Neurologic No alteration of consciousness 05/08/2016 Neurologic No mental status change 2015 Gastrointestinal No abdominal pain 2015 Constitutional No recent illness 2015 Constitutional obesity 05/05/2016 Constitutional No fever 05/05/2016 Eyes No eye erythema 05/05/2016 Ears/Nose/Throat/Neck No nasal allergies 05/05/2016 Ears/Nose/Throat/Neck No nasal discharge 05/05/2016 Cardiovascular No chest pain/pressure Respiratory No cough 05/05/2016 Gastrointestinal No abdominal pain 2015 Neurologic No alteration of consciousness 05/05/2016 Neurologic No mental status change 2015 Constitutional No recent illness 2015 Constitutional obesity 04/10/2016 Ears/Nose/Throat/Neck No nasal allergies 04/10/2016 Ears/Nose/Throat/Neck No nasal discharge 04/10/2016 Cardiovascular No chest pain/pressure Cardiovascular No dyspnea 04/10/2016 Respiratory No cough 04/10/2016 Dermatologic No rash 04/10/2016 Dermatologic No sores 04/10/2016 Neurologic No alteration of consciousness 04/10/2016 Neurologic No mental status change 2015 Constitutional No fever 04/10/2016 Eyes No eye erythema 04/10/2016 Musculoskeletal shoulder pain 04/10/2016 Constitutional No recent illness 2015 Constitutional obesity 04/06/2016 Ears/Nose/Throat/Neck No nasal allergies 04/06/2016 Ears/Nose/Throat/Neck No nasal discharge 04/06/2016 Cardiovascular No chest pain/pressure Cardiovascular No dyspnea 04/06/2016 Respiratory No cough 04/06/2016 Dermatologic No rash 04/06/2016 Neurologic No alteration of consciousness 04/06/2016 Neurologic No mental status change 2015 Constitutional No fever 04/06/2016 Eyes No eye erythema 04/06/2016 Musculoskeletal joint complaint 2015 Constitutional recent illness 03/08/2016 Constitutional obesity 03/08/2016 Constitutional malaise 03/08/2016 Eyes No eye erythema 03/08/2016 Ears/Nose/Throat/Neck nasal allergies Ears/Nose/Throat/Neck nasal discharge Ears/Nose/Throat/Neck postnasal drip Ears/Nose/Throat/Neck sinus congestion Cardiovascular No chest pain/pressure Respiratory No chest congestion 2015 Respiratory cough 03/08/2016 Respiratory dyspnea on exertion 2015 Musculoskeletal No joint complaint 2015 Dermatologic No rash 03/08/2016 Neurologic No alteration of consciousness 03/08/2016 Neurologic No mental status change 2015 Constitutional fever 03/08/2016 Respiratory wheezing 03/08/2016 Dermatologic skin lesion 03/08/2016 Constitutional No recent illness 2015 Constitutional No diaphoresis 02/28/2016 Constitutional fever 02/28/2016 Ears/Nose/Throat/Neck nasal allergies 05/2016 Ears/Nose/Throat/Neck nasal discharge 05/2016 Ears/Nose/Throat/Neck postnasal drip 05/2016 Ears/Nose/Throat/Neck sinus congestion Cardiovascular No chest pain/pressure 05/2016 Respiratory cough 02/28/2016 Dermatologic No rash 02/28/2016 Neurologic No alteration of consciousness 02/28/2016 Constitutional obesity 02/28/2016 Constitutional chills 02/28/2016 Constitutional malaise 02/28/2016 Eyes No eye erythema 02/28/2016 Respiratory No chest congestion 2015 Respiratory dyspnea on exertion 2015 Musculoskeletal No joint complaint 2015 Neurologic No mental status change 2015 Constitutional No recent illness 2015 Constitutional obesity 01/18/2016 Constitutional No fever 01/18/2016 Eyes No eye erythema 01/18/2016 Ears/Nose/Throat/Neck No nasal allergies 01/18/2016 Ears/Nose/Throat/Neck No nasal discharge 01/18/2016 Cardiovascular No chest pain/pressure 07/2015 Respiratory No cough 01/18/2016 Gastrointestinal No constipation 2015 Gastrointestinal No diarrhea 01/18/2016 Musculoskeletal No joint complaint 2015 Dermatologic No rash 01/18/2016 Neurologic No alteration of consciousness 01/18/2016 Neurologic No mental status change 2015 Cardiovascular No dyspnea 01/18/2016 Dermatologic No sores 01/18/2016 Constitutional No recent illness 2015 Constitutional obesity 12/23/2015 Constitutional No fever 12/23/2015 Eyes No eye erythema 12/23/2015 Ears/Nose/Throat/Neck No nasal allergies 12/23/2015 Ears/Nose/Throat/Neck No nasal discharge 12/23/2015 Cardiovascular No chest pain/pressure 12/2015 Respiratory No chest congestion 2015 Respiratory No cough 12/23/2015 Gastrointestinal No constipation 2015 Gastrointestinal No diarrhea 12/23/2015 Musculoskeletal No joint complaint 2015 Dermatologic No rash 12/23/2015 Neurologic No alteration of consciousness 12/23/2015 Neurologic No mental status change 2015 Psychiatric No anxiety 12/23/2015 Psychiatric No depression 12/23/2015 Gastrointestinal No vomiting 12/23/2015 Constitutional No recent illness 2015 Constitutional obesity 12/16/2015 Constitutional No fever 12/16/2015 Eyes No eye erythema 12/16/2015 Ears/Nose/Throat/Neck No nasal allergies 12/16/2015 Ears/Nose/Throat/Neck No nasal discharge 12/16/2015 Cardiovascular No chest pain/pressure Respiratory No chest congestion 2015 Respiratory No cough 12/16/2015 Gastrointestinal No constipation 2015 Gastrointestinal No diarrhea 12/16/2015 Musculoskeletal No joint complaint 2015 Dermatologic No rash 12/16/2015 Neurologic No alteration of consciousness 12/16/2015 Neurologic No mental status change 2015 Psychiatric No anxiety 12/16/2015 Psychiatric No depression 12/16/2015 Constitutional No recent illness 2015 Constitutional obesity 11/11/2015 Constitutional No chills 11/11/2015 Constitutional No diaphoresis 11/11/2015 Constitutional No fever 11/11/2015 Eyes No eye erythema 11/11/2015 Ears/Nose/Throat/Neck No nasal allergies 11/11/2015 Ears/Nose/Throat/Neck No nasal discharge 11/11/2015 Cardiovascular No chest pain/pressure Respiratory No chest congestion 2015 Respiratory No cough 11/11/2015 Gastrointestinal No constipation 2015 Gastrointestinal No diarrhea 11/11/2015 Gastrointestinal No vomiting 11/11/2015 Musculoskeletal No joint complaint 2015 Dermatologic No rash 11/11/2015 Neurologic No alteration of consciousness 11/11/2015 Neurologic No mental status change 2015 Endocrine diabetes mellitus type 2 2015 Constitutional No malaise 11/11/2015 Ears/Nose/Throat/Neck No postnasal drip 11/11/2015 Gastrointestinal No abdominal pain 2015 Psychiatric No anxiety 11/11/2015 Psychiatric No depression 11/11/2015 Constitutional No recent illness 2015 Constitutional obesity 10/27/2015 Constitutional No chills 10/27/2015 Constitutional No diaphoresis 10/27/2015 Constitutional No fever 10/27/2015 Constitutional No insomnia 10/27/2015 Eyes No eye erythema 10/27/2015 Ears/Nose/Throat/Neck No nasal allergies 10/27/2015 Ears/Nose/Throat/Neck No nasal discharge 10/27/2015 Ears/Nose/Throat/Neck No sinus congestion 10/27/2015 Cardiovascular No chest pain/pressure 04/2016 Respiratory No productive sputum 2015 Respiratory No chest congestion 2015 Respiratory No cough 10/27/2015 Gastrointestinal No constipation 2015 Gastrointestinal No diarrhea 10/27/2015 Gastrointestinal No nausea 10/27/2015 Gastrointestinal No vomiting 10/27/2015 Genitourinary/Nephrology No dysuria 10/26 Musculoskeletal No joint complaint 2015 Dermatologic No rash 10/27/2015 Neurologic No alteration of consciousness 10/27/2015 Neurologic No mental status change 2015 Endocrine diabetes mellitus type 2 2015 Constitutional No recent illness 2015 Constitutional obesity 10/13/2015 Constitutional No chills 10/13/2015 Constitutional No diaphoresis 10/13/2015 Constitutional No fever 10/13/2015 Constitutional No insomnia 10/13/2015 Eyes No eye erythema 10/13/2015 Ears/Nose/Throat/Neck No dizziness 2015 Cardiovascular No chest pain/pressure Respiratory No productive sputum 2015 Respiratory No chest congestion 2015 Respiratory No cough 10/13/2015 Gastrointestinal No constipation 2015 Gastrointestinal No diarrhea 10/13/2015 Gastrointestinal No nausea 10/13/2015 Gastrointestinal No vomiting 10/13/2015 Genitourinary/Nephrology No dysuria 10/12 Musculoskeletal No joint complaint 2015 Dermatologic No rash 10/13/2015 Neurologic No alteration of consciousness 10/13/2015 Neurologic No mental status change 2015 Ears/Nose/Throat/Neck No nasal allergies 10/13/2015 Ears/Nose/Throat/Neck No nasal discharge 10/13/2015 Ears/Nose/Throat/Neck No sinus congestion 10/13/2015 Endocrine diabetes mellitus type 2 2015 Constitutional obesity 10/05/2015 Constitutional No chills 10/05/2015 Constitutional No diaphoresis 10/05/2015 Constitutional No fever 10/05/2015 Constitutional No insomnia 10/05/2015 Ears/Nose/Throat/Neck No dizziness 2015 Ears/Nose/Throat/Neck headache 2015 Ears/Nose/Throat/Neck nasal allergies Ears/Nose/Throat/Neck nasal discharge Ears/Nose/Throat/Neck postnasal drip Ears/Nose/Throat/Neck sinus congestion Cardiovascular No chest pain/pressure Cardiovascular dyspnea 10/05/2015 Cardiovascular No fatigue 10/05/2015 Respiratory productive sputum 10/05/2015 Respiratory chest congestion 10/05/2015 Respiratory cough 10/05/2015 Gastrointestinal No constipation 2015 Gastrointestinal No nausea 10/05/2015 Gastrointestinal No vomiting 10/05/2015 Genitourinary/Nephrology No dysuria 10/04 Dermatologic No rash 10/05/2015 Neurologic No alteration of consciousness 10/05/2015 Constitutional recent illness 10/05/2015 Eyes No eye erythema 10/05/2015 Ears/Nose/Throat/Neck sore throat 2015 Gastrointestinal No diarrhea 10/05/2015 Musculoskeletal No joint complaint 2015 Neurologic No mental status change 2015 Constitutional No night sweats 2015 Constitutional No recent illness 2015 Constitutional obesity 09/01/2015 Constitutional No chills 09/01/2015 Constitutional No diaphoresis 09/01/2015 Constitutional No fever 09/01/2015 Constitutional No insomnia 09/01/2015 Eyes No photophobia 09/01/2015 Ears/Nose/Throat/Neck No dizziness 2015 Ears/Nose/Throat/Neck No headache 2015 Ears/Nose/Throat/Neck No nasal allergies 09/01/2015 Ears/Nose/Throat/Neck No nasal discharge 09/01/2015 Ears/Nose/Throat/Neck No postnasal drip 09/01/2015 Ears/Nose/Throat/Neck No sinus congestion 09/01/2015 Cardiovascular No chest pain/pressure Cardiovascular dyspnea 09/01/2015 Cardiovascular No fatigue 09/01/2015 Respiratory No productive sputum 2015 Respiratory No chest congestion 2015 Respiratory No cough 09/01/2015 Gastrointestinal No constipation 2015 Gastrointestinal No gastroesophageal reflux 09/01/2015 Gastrointestinal No nausea 09/01/2015 Gastrointestinal No vomiting 09/01/2015 Genitourinary/Nephrology No dysuria 08/31 Musculoskeletal No stiffness 09/01/2015 Musculoskeletal No myalgias 09/01/2015 Dermatologic No rash 09/01/2015 Neurologic No alteration of consciousness 09/01/2015 Gastrointestinal diarrhea 09/01/2015 Neurologic No mental status change 2015 Constitutional fever 08/20/2015 Constitutional No night sweats 2015 Constitutional No recent illness 2015 Constitutional obesity 08/20/2015 Constitutional chills 08/20/2015 Constitutional No diaphoresis 08/20/2015 Constitutional No insomnia 08/20/2015 Eyes No photophobia 08/20/2015 Ears/Nose/Throat/Neck No dizziness 2015 Ears/Nose/Throat/Neck headache 2015 Ears/Nose/Throat/Neck nasal allergies 09/2015 Ears/Nose/Throat/Neck nasal discharge 09/2015 Ears/Nose/Throat/Neck postnasal drip 09/2015 Ears/Nose/Throat/Neck sinus congestion Cardiovascular No chest pain/pressure 09/2015 Cardiovascular dyspnea 08/20/2015 Cardiovascular No fatigue 08/20/2015 Respiratory productive sputum 08/20/2015 Respiratory chest congestion 08/20/2015 Respiratory chest tightness 08/20/2015 Respiratory cough 08/20/2015 Gastrointestinal No constipation 2015 Gastrointestinal diarrhea 08/20/2015 Gastrointestinal No gastroesophageal reflux 08/20/2015 Gastrointestinal No nausea 08/20/2015 Gastrointestinal No vomiting 08/20/2015 Genitourinary/Nephrology No dysuria 08/19 Musculoskeletal No stiffness 08/20/2015 Musculoskeletal No myalgias 08/20/2015 Dermatologic No rash 08/20/2015 Neurologic No alteration of consciousness 08/20/2015 Neurologic No dizziness 08/20/2015 Neurologic No syncope 08/20/2015 Constitutional No night sweats 2015 Constitutional No recent illness 2015 Constitutional obesity 08/03/2015 Constitutional weight gain 08/03/2015 Constitutional No chills 08/03/2015 Constitutional No diaphoresis 08/03/2015 Constitutional No fever 08/03/2015 Constitutional No insomnia 08/03/2015 Eyes No photophobia 08/03/2015 Ears/Nose/Throat/Neck No dental pain Ears/Nose/Throat/Neck No dizziness 2015 Ears/Nose/Throat/Neck No dysphagia 2015 Ears/Nose/Throat/Neck No headache 2015 Ears/Nose/Throat/Neck No hearing loss Ears/Nose/Throat/Neck No nasal allergies 08/03/2015 Ears/Nose/Throat/Neck No nasal discharge 08/03/2015 Ears/Nose/Throat/Neck No postnasal drip 08/03/2015 Ears/Nose/Throat/Neck No sinus congestion 08/03/2015 Ears/Nose/Throat/Neck No sore throat Cardiovascular No arrhythmia 08/03/2015 Cardiovascular No chest pain/pressure Cardiovascular dyspnea 08/03/2015 Cardiovascular edema 08/03/2015 Cardiovascular No fatigue 08/03/2015 Respiratory No productive sputum 2015 Respiratory No chest tightness 2015 Respiratory No cough 08/03/2015 Respiratory snoring 08/03/2015 Respiratory No wheezing 08/03/2015 Respiratory No chest congestion 2015 Gastrointestinal No hemorrhoids 2015 Gastrointestinal No abdominal pain 2015 Gastrointestinal No constipation 2015 Gastrointestinal No diarrhea 08/03/2015 Gastrointestinal No gastroesophageal reflux 08/03/2015 Gastrointestinal No melena 08/03/2015 Gastrointestinal No nausea 08/03/2015 Gastrointestinal No vomiting 08/03/2015 Genitourinary/Nephrology No dysuria 08/03 Genitourinary/Nephrology No nocturia Genitourinary/Nephrology No urinary incontinence 08/03/2015 Musculoskeletal No stiffness 08/03/2015 Musculoskeletal No muscle weakness 2015 Musculoskeletal No myalgias 08/03/2015 Dermatologic No rash 08/03/2015 Neurologic No dizziness 08/03/2015 Neurologic No headache 08/03/2015 Neurologic No neck pain 08/03/2015 Neurologic No syncope 08/03/2015 Neurologic No alteration of consciousness 08/03/2015 Physical Exam Exam Name System Name Item Name Status Result Effective Dates Notes Full Exam - Orthopedics Constitutional general appearance Overall: well nourished 06/07/2017 None Full Exam - Orthopedics Constitutional general appearance Overall: well developed 06/07/2017 None Full Exam - Orthopedics Constitutional general appearance Overall: in no acute distress 06/07/2017 None Full Exam - Orthopedics Eyes conjunctiva/ eyelids Overall: conjunctiva clear 06/07/2017 None Full Exam - Orthopedics Eyes conjunctiva/ eyelids Overall: cornea clear 06/07/2017 None Full Exam - Orthopedics Eyes conjunctiva/ eyelids Overall: eyelids normal 06/07/2017 None Full Exam - Orthopedics Ears/Nose/Throat otoscopic exam Overall: external auditory canals clear 06/07/2017 None Full Exam - Orthopedics Ears/Nose/Throat otoscopic exam Overall: tympanic membranes clear 06/07/2017 None Full Exam - Orthopedics Ears/Nose/Throat lips/teeth/gingiva Overall: benign lips 06/07/2017 None Full Exam - Orthopedics Ears/Nose/Throat oral cavity/pharynx/larynx Overall: oral mucosa clear 06/07/2017 None Full Exam - Orthopedics Ears/Nose/Throat oral cavity/pharynx/larynx Overall: oropharyngeal mucosa clear 06/07/2017 None Full Exam - Orthopedics Respiratory respiratory effort/rhythm Overall: no retractions 06/07/2017 None Full Exam - Orthopedics Respiratory respiratory effort/rhythm Overall: normal rate 06/07/2017 None Full Exam - Orthopedics Respiratory auscultation Diffuse: diminished 06/07/2017 None Full Exam - Orthopedics MS: left lower extremity insp & palp - LLE Ankle: tender 06/07/2017 None Full Exam - Orthopedics MS: left lower extremity insp & palp - LLE Rearfoot: tenderness at Achilles tendon insertion 06/07/2017 None Full Exam - Orthopedics Integument insp & palp - trunk Shoulder inspection: rash 06/07/2017 None Full Exam - Orthopedics Psychiatric orientation/consciousness Overall: oriented to person, place and time 06/07/2017 None Full Exam - Orthopedics Psychiatric mood and affect Overall: normal mood and affect 06/07/2017 None Full Exam - Orthopedics Psychiatric appearance Overall: well-groomed, good eye contact 06/07/2017 None Full Exam - Orthopedics Constitutional general appearance Overall: well nourished 04/24/2017 None Full Exam - Orthopedics Constitutional general appearance Overall: well developed 04/24/2017 None Full Exam - Orthopedics Constitutional general appearance Overall: in no acute distress 04/24/2017 None Full Exam - Orthopedics Eyes conjunctiva/ eyelids Overall: conjunctiva clear 04/24/2017 None Full Exam - Orthopedics Eyes conjunctiva/ eyelids Overall: eyelids normal 04/24/2017 None Full Exam - Orthopedics Ears/Nose/Throat lips/teeth/gingiva Overall: benign lips 04/24/2017 None Full Exam - Orthopedics Ears/Nose/Throat oral cavity/pharynx/larynx Overall: oral mucosa clear 04/24/2017 None Full Exam - Orthopedics Respiratory respiratory effort/rhythm Overall: no retractions 04/24/2017 None Full Exam - Orthopedics Respiratory respiratory effort/rhythm Overall: normal rate 04/24/2017 None Full Exam - Orthopedics Psychiatric orientation/consciousness Overall: oriented to person, place and time 04/24/2017 None Full Exam - Orthopedics Psychiatric mood and affect Overall: normal mood and affect 04/24/2017 None Full Exam - Orthopedics Psychiatric appearance Overall: well-groomed, good eye contact 04/24/2017 None Full Exam - Orthopedics MS: spine/rib/pelvis insp & palp - S/R/P Sacroiliac palpation: left sacroiliac joint tenderness 04/24/2017 None Full Exam - Orthopedics MS: spine/rib/pelvis insp & palp - S/R/P Sacroiliac palpation: right sacroiliac joint tenderness 04/24/2017 None Full Exam - Orthopedics MS: left lower extremity insp & palp - LLE Rearfoot: normal appearance 04/24/2017 None Full Exam - Orthopedics MS: left lower extremity insp & palp - LLE Rearfoot: pain on palpation 04/24/2017 None Full Exam - ENT Constitutional general appearance Overall: well nourished 01/09/2017 None Full Exam - ENT Constitutional general appearance Overall: well developed 01/09/2017 None Full Exam - ENT Constitutional general appearance Overall: in no acute distress 01/09/2017 None Full Exam - ENT Ears/Nose/Throat otoscopic exam Overall: external auditory canals normal 01/09/2017 None Full Exam - ENT Ears/Nose/Throat otoscopic exam Left tympanic membrane: erythematous 01/09/2017 mild Full Exam - ENT Ears/Nose/Throat otoscopic exam Right tympanic membrane: erythematous 01/09/2017 None Full Exam - ENT Ears/Nose/Throat lips/ teeth/gingiva Overall: benign lips 01/09/2017 None Full Exam - ENT Ears/Nose/Throat oropharynx Overall: oral mucosa clear 01/09/2017 None Full Exam - ENT Ears/Nose/Throat oropharynx Posterior Pharynx: clear post nasal drainage 01/09/2017 None Full Exam - ENT Ears/Nose/Throat oropharynx Posterior Pharynx: erythema 01/09/2017 None Full Exam - ENT Respiratory auscultation Overall: breath sounds clear bilaterally 01/09/2017 None Full Exam - ENT Respiratory auscultation Diffuse: diminished None Full Exam - ENT Respiratory inspection Overall: no retractions 01/09/2017 None Full Exam - ENT Respiratory inspection Overall: normal rate None Full Exam - ENT Cardiovascular auscultation of heart Overall: regular rate 01/09/2017 None Full Exam - ENT Cardiovascular auscultation of heart Overall: normal heart sounds 01/09/2017 None Full Exam - ENT Lymphatic palpation of lymph nodes Overall: anterior cervical chain benign 01/09/2017 None Full Exam - ENT Lymphatic palpation of lymph nodes Overall: posterior cervical chain benign 01/09/2017 None Full Exam - ENT Musculoskeletal head and neck Overall: head atraumatic 01/09/2017 None Full Exam - ENT Neurologic mood and affect Overall: normal mood 01/09/2017 None Full Exam - ENT Neurologic mood and affect Overall: normal affect 01/09/2017 None Full Exam - ENT Neurologic orientation Overall: oriented to person, place and time 01/09/2017 None Full Exam - General 1994 Constitutional general appearance Overall: well developed 10/30/2016 None Full Exam - General 1994 Constitutional general appearance Overall: in no acute distress 10/30/2016 None Full Exam - General 1994 Constitutional general appearance Overall: well nourished 10/30/2016 None Full Exam - General 1994 Eyes conjunctiva /eyelids Overall: conjunctiva clear 10/30/2016 None Full Exam - General 1994 Eyes conjunctiva /eyelids Overall: eyelids normal 10/30/2016 None Full Exam - General 1994 Respiratory auscultation Overall: breath sounds clear bilaterally 10/30/2016 None Full Exam - General 1994 Respiratory respiratory effort/rhythm Overall: no retractions 10/30/2016 None Full Exam - General 1994 Respiratory respiratory effort/rhythm Overall: normal rate 10/30/2016 None Full Exam - General 1994 Cardiovascular auscultation of heart Overall: regular rate 10/30/2016 None Full Exam - General 1994 Cardiovascular auscultation of heart Overall: normal heart sounds 10/30/2016 None Full Exam - General 1994 Neurologic cranial nerves Overall: crainial nerves 2 - 12 grossly intact 10/30/2016 None Full Exam - General 1994 Psychiatric orientation/consciousness Overall: oriented to person, place and time 10/30/2016 None Full Exam - General 1994 Psychiatric mood and affect Overall: normal mood and affect 10/30/2016 None Full Exam - General 1994 Constitutional general appearance Overall: well developed 10/09/2016 None Full Exam - General 1994 Constitutional general appearance Overall: in no acute distress 10/09/2016 None Full Exam - General 1994 Constitutional general appearance Overall: well nourished 10/09/2016 None Full Exam - General 1994 Eyes conjunctiva /eyelids Overall: conjunctiva clear 10/09/2016 None Full Exam - General 1994 Eyes conjunctiva /eyelids Overall: eyelids normal 10/09/2016 None Full Exam - General 1994 Respiratory auscultation Overall: breath sounds clear bilaterally 10/09/2016 None Full Exam - General 1994 Respiratory respiratory effort/rhythm Overall: no retractions 10/09/2016 None Full Exam - General 1994 Respiratory respiratory effort/rhythm Overall: normal rate 10/09/2016 None Full Exam - General 1994 Cardiovascular auscultation of heart Overall: regular rate 10/09/2016 None Full Exam - General 1994 Cardiovascular auscultation of heart Overall: normal heart sounds 10/09/2016 None Full Exam - General 1994 Neurologic cranial nerves Overall: crainial nerves 2 - 12 grossly intact 10/09/2016 None Full Exam - General 1994 Psychiatric orientation/consciousness Overall: oriented to person, place and time 10/09/2016 None Full Exam - General 1994 Psychiatric mood and affect Overall: normal mood and affect 10/09/2016 None Full Exam - General 1994 Constitutional general appearance Overall: well developed 09/12/2016 None Full Exam - General 1994 Constitutional general appearance Nourishment: obese 09/12/2016 None Full Exam - General 1994 Eyes conjunctiva /eyelids Overall: conjunctiva clear 09/12/2016 None Full Exam - General 1994 Ears/Nose/Throat lips/teeth/gingiva Overall: benign lips 09/12/2016 None Full Exam - General 1994 Ears/Nose/Throat oral cavity/pharynx/larynx Overall: oral mucosa clear 09/12/2016 None Full Exam - General 1994 Respiratory auscultation Overall: breath sounds clear bilaterally 09/12/2016 None Full Exam - General 1994 Respiratory auscultation Diffuse: diminished 09/12/2016 None Full Exam - General 1994 Respiratory respiratory effort/rhythm Overall: no retractions 09/12/2016 None Full Exam - General 1994 Respiratory respiratory effort/rhythm Overall: normal rate 09/12/2016 None Full Exam - General 1994 Cardiovascular auscultation of heart Overall: regular rate 09/12/2016 None Full Exam - General 1994 Cardiovascular auscultation of heart Overall: normal heart sounds 09/12/2016 None Full Exam - General 1994 Abdomen abdominal exam Overall: normal bowel sounds 09/12/2016 None Full Exam - General 1994 Abdomen abdominal exam Contour: protuberant 09/12/2016 Diastasis Recti Full Exam - General 1994 Abdomen abdominal exam Epigastric: tender to palpation 09/12/2016 None Full Exam - General 1994 Abdomen abdominal exam Epigastric: dull pain 09/12/2016 None Full Exam - General 1994 Abdomen abdominal exam Epigastric: sharp pain 09/12/2016 None Full Exam - General 1994 Abdomen abdominal exam Periumbilical: tender to palpation 09/12/2016 None Full Exam - General 1994 Abdomen abdominal exam Periumbilical: dull pain 09/12/2016 None Full Exam - General 1994 Neurologic cranial nerves Overall: crainial nerves 2 - 12 grossly intact 09/12/2016 None Full Exam - General 1994 Psychiatric orientation/consciousness Overall: oriented to person, place and time 09/12/2016 None Full Exam - General 1994 Psychiatric mood and affect Overall: normal mood and affect 09/12/2016 None Full Exam - General 1994 Psychiatric appearance Overall: well-groomed, good eye contact 09/12/2016 None Full Exam - General 1994 Constitutional general appearance Overall: well developed 09/05/2016 None Full Exam - General 1994 Constitutional general appearance Evidence of Distress: mild distress 09/05/2016 None Full Exam - General 1994 Constitutional general appearance Evidence of Distress: in distress secondary to pain 09/05/2016 None Full Exam - General 1994 Constitutional general appearance Nourishment: obese 09/05/2016 None Full Exam - General 1994 Eyes conjunctiva /eyelids Overall: conjunctiva clear 09/05/2016 None Full Exam - General 1994 Ears/Nose/Throat lips/teeth/gingiva Overall: benign lips 09/05/2016 None Full Exam - General 1994 Ears/Nose/Throat oral cavity/pharynx/larynx Overall: oral mucosa clear 09/05/2016 None Full Exam - General 1994 Respiratory auscultation Overall: breath sounds clear bilaterally 09/05/2016 None Full Exam - General 1994 Respiratory auscultation Diffuse: diminished 09/05/2016 None Full Exam - General 1994 Respiratory respiratory effort/rhythm Overall: no retractions 09/05/2016 None Full Exam - General 1994 Respiratory respiratory effort/rhythm Overall: normal rate 09/05/2016 None Full Exam - General 1994 Cardiovascular auscultation of heart Overall: regular rate 09/05/2016 None Full Exam - General 1994 Cardiovascular auscultation of heart Overall: normal heart sounds 09/05/2016 None Full Exam - General 1994 Abdomen abdominal exam Overall: normal bowel sounds 09/05/2016 None Full Exam - General 1994 Abdomen abdominal exam Epigastric: tender to palpation 09/05/2016 None Full Exam - General 1994 Abdomen abdominal exam Epigastric: sharp pain 09/05/2016 None Full Exam - General 1994 Abdomen abdominal exam Epigastric: dull pain 09/05/2016 None Full Exam - General 1994 Abdomen abdominal exam Periumbilical: tender to palpation 09/05/2016 None Full Exam - General 1994 Abdomen abdominal exam Periumbilical: dull pain 09/05/2016 None Full Exam - General 1994 Neurologic cranial nerves Overall: crainial nerves 2 - 12 grossly intact 09/05/2016 None Full Exam - General 1994 Psychiatric orientation/consciousness Overall: oriented to person, place and time 09/05/2016 None Full Exam - General 1994 Psychiatric mood and affect Overall: normal mood and affect 09/05/2016 None Full Exam - General 1994 Psychiatric mood and affect Mood: flat 09/05/2016 None Full Exam - General 1994 Psychiatric appearance Overall: well-groomed, good eye contact 09/05/2016 None Full Exam - General 1994 Abdomen abdominal exam Contour: protuberant 09/05/2016 Diastasis Recti Full Exam - ENT Constitutional general appearance Overall: well nourished 06/16/2016 None Full Exam - ENT Constitutional general appearance Overall: well developed 06/16/2016 None Full Exam - ENT Constitutional general appearance Overall: in no acute distress 06/16/2016 None Full Exam - ENT Ears/Nose/Throat otoscopic exam Overall: external auditory canals normal 06/16/2016 None Full Exam - ENT Ears/Nose/Throat otoscopic exam Right tympanic membrane: air-fluid level 06/16/2016 None Full Exam - ENT Ears/Nose/Throat lips/ teeth/gingiva Overall: benign lips 06/16/2016 None Full Exam - ENT Ears/Nose/Throat oropharynx Overall: oral mucosa clear 06/16/2016 None Full Exam - ENT Ears/Nose/Throat oropharynx Posterior Pharynx: clear post nasal drainage 06/16/2016 None Full Exam - ENT Ears/Nose/Throat oropharynx Posterior Pharynx: erythema 06/16/2016 None Full Exam - ENT Respiratory inspection Overall: no retractions 06/16/2016 None Full Exam - ENT Respiratory inspection Overall: normal rate None Full Exam - ENT Cardiovascular auscultation of heart Rate: normal rate 06/16/2016 None Full Exam - ENT Cardiovascular auscultation of heart Rhythm: regular rhythm 06/16/2016 None Full Exam - ENT Lymphatic palpation of lymph nodes Overall: anterior cervical chain benign 06/16/2016 None Full Exam - ENT Lymphatic palpation of lymph nodes Overall: posterior cervical chain benign 06/16/2016 None Full Exam - ENT Neurologic mood and affect Overall: normal mood 06/16/2016 None Full Exam - ENT Neurologic mood and affect Overall: normal affect 06/16/2016 None Full Exam - ENT Neurologic orientation Overall: oriented to person, place and time 06/16/2016 None Full Exam - ENT Ears/Nose/Throat otoscopic exam Left tympanic membrane: erythematous 06/16/2016 None Full Exam - ENT Ears/Nose/Throat otoscopic exam Left tympanic membrane: bulging 06/16/2016 None Full Exam - ENT Respiratory auscultation Diffuse: diminished None Full Exam - ENT Respiratory auscultation Right lower lung field: expiratory wheezes 06/16/2016 None Full Exam - General 1994 Constitutional general appearance Overall: well developed 06/13/2016 None Full Exam - General 1994 Constitutional general appearance Overall: in no acute distress 06/13/2016 None Full Exam - General 1994 Constitutional general appearance Overall: well nourished 06/13/2016 None Full Exam - General 1994 Eyes conjunctiva /eyelids Overall: conjunctiva clear 06/13/2016 None Full Exam - General 1994 Eyes conjunctiva /eyelids Overall: cornea clear 06/13/2016 None Full Exam - General 1994 Eyes conjunctiva /eyelids Overall: eyelids normal 06/13/2016 None Full Exam - General 1994 Ears/Nose/Throat lips/teeth/gingiva Overall: benign lips 06/13/2016 None Full Exam - General 1994 Ears/Nose/Throat lips/teeth/gingiva Overall: normal dentition 06/13/2016 None Full Exam - General 1994 Ears/Nose/Throat oral cavity/pharynx/larynx Overall: oral mucosa clear 06/13/2016 None Full Exam - General 1994 Respiratory respiratory effort/rhythm Overall: no retractions 06/13/2016 None Full Exam - General 1994 Respiratory respiratory effort/rhythm Overall: normal rate 06/13/2016 None Full Exam - General 1994 Musculoskeletal gait and station Overall: normal gait 06/13/2016 None Full Exam - General 1994 Musculoskeletal gait and station Overall: normal station 06/13/2016 None Full Exam - General 1994 Musculoskeletal head and neck Overall: head atraumatic 06/13/2016 None Full Exam - General 1994 Neurologic cranial nerves Overall: crainial nerves 2 - 12 grossly intact 06/13/2016 None Full Exam - General 1994 Psychiatric orientation/consciousness Overall: oriented to person, place and time 06/13/2016 None Full Exam - General 1994 Psychiatric mood and affect Overall: normal mood and affect 06/13/2016 None Full Exam - General 1994 Psychiatric appearance Overall: well-groomed, good eye contact 06/13/2016 None Full Exam - General 1994 Constitutional general appearance Overall: well developed 05/19/2016 None Full Exam - General 1994 Constitutional general appearance Overall: in no acute distress 05/19/2016 None Full Exam - General 1994 Constitutional general appearance Overall: well nourished 05/19/2016 None Full Exam - General 1994 Eyes conjunctiva /eyelids Overall: conjunctiva clear 05/19/2016 None Full Exam - General 1994 Eyes conjunctiva /eyelids Overall: cornea clear 05/19/2016 None Full Exam - General 1994 Eyes conjunctiva /eyelids Overall: eyelids normal 05/19/2016 None Full Exam - General 1994 Ears/Nose/Throat lips/teeth/gingiva Overall: benign lips 05/19/2016 None Full Exam - General 1994 Ears/Nose/Throat lips/teeth/gingiva Overall: normal dentition 05/19/2016 None Full Exam - General 1994 Ears/Nose/Throat oral cavity/pharynx/larynx Overall: oral mucosa clear 05/19/2016 None Full Exam - General 1994 Respiratory respiratory effort/rhythm Overall: no retractions 05/19/2016 None Full Exam - General 1994 Respiratory respiratory effort/rhythm Overall: normal rate 05/19/2016 None Full Exam - General 1994 Musculoskeletal gait and station Overall: normal gait 05/19/2016 None Full Exam - General 1994 Musculoskeletal gait and station Overall: normal station 05/19/2016 None Full Exam - General 1994 Integument inspection of skin Overall: no rash, lesions 05/19/2016 None Full Exam - General 1994 Neurologic cranial nerves Overall: crainial nerves 2 - 12 grossly intact 05/19/2016 None Full Exam - General 1994 Psychiatric orientation/consciousness Overall: oriented to person, place and time 05/19/2016 None Full Exam - General 1994 Psychiatric mood and affect Overall: normal mood and affect 05/19/2016 None Full Exam - General 1994 Psychiatric appearance Overall: well-groomed, good eye contact 05/19/2016 None Full Exam - General 1994 Musculoskeletal head and neck Overall: head atraumatic 05/19/2016 None Full Exam - General 1994 Constitutional general appearance Overall: well developed 05/08/2016 None Full Exam - General 1994 Constitutional general appearance Overall: in no acute distress 05/08/2016 None Full Exam - General 1994 Constitutional general appearance Overall: well nourished 05/08/2016 None Full Exam - General 1994 Eyes conjunctiva /eyelids Overall: conjunctiva clear 05/08/2016 None Full Exam - General 1994 Eyes conjunctiva /eyelids Overall: cornea clear 05/08/2016 None Full Exam - General 1994 Eyes conjunctiva /eyelids Overall: eyelids normal 05/08/2016 None Full Exam - General 1994 Ears/Nose/Throat lips/teeth/gingiva Overall: benign lips 05/08/2016 None Full Exam - General 1994 Ears/Nose/Throat lips/teeth/gingiva Overall: normal dentition 05/08/2016 None Full Exam - General 1994 Ears/Nose/Throat oral cavity/pharynx/larynx Overall: oral mucosa clear 05/08/2016 None Full Exam - General 1994 Respiratory respiratory effort/rhythm Overall: no retractions 05/08/2016 None Full Exam - General 1994 Respiratory respiratory effort/rhythm Overall: normal rate 05/08/2016 None Full Exam - General 1994 Musculoskeletal gait and station Overall: normal gait 05/08/2016 None Full Exam - General 1994 Musculoskeletal gait and station Overall: normal station 05/08/2016 None Full Exam - General 1994 Musculoskeletal head and neck Overall: head atraumatic 05/08/2016 None Full Exam - General 1994 Neurologic cranial nerves Overall: crainial nerves 2 - 12 grossly intact 05/08/2016 None Full Exam - General 1994 Psychiatric orientation/consciousness Overall: oriented to person, place and time 05/08/2016 None Full Exam - General 1994 Psychiatric mood and affect Overall: normal mood and affect 05/08/2016 None Full Exam - General 1994 Psychiatric appearance Overall: well-groomed, good eye contact 05/08/2016 None Full Exam - General 1994 Eyes pupils and irises Overall: pupils equal, round, reactive to light and accomodation 05/08/2016 None Full Exam - General 1994 Integument inspection of skin Overall: few scattered moles, no gross abnormalities 05/08/2016 None Full Exam - General 1994 Constitutional general appearance Overall: well developed 05/05/2016 None Full Exam - General 1994 Constitutional general appearance Overall: in no acute distress 05/05/2016 None Full Exam - General 1994 Constitutional general appearance Overall: well nourished 05/05/2016 None Full Exam - General 1994 Eyes conjunctiva /eyelids Overall: conjunctiva clear 05/05/2016 None Full Exam - General 1994 Eyes conjunctiva /eyelids Overall: eyelids normal 05/05/2016 None Full Exam - General 1994 Ears/Nose/Throat lips/teeth/gingiva Overall: benign lips 05/05/2016 None Full Exam - General 1994 Ears/Nose/Throat lips/teeth/gingiva Overall: normal dentition 05/05/2016 None Full Exam - General 1994 Ears/Nose/Throat oral cavity/pharynx/larynx Overall: oral mucosa clear 05/05/2016 None Full Exam - General 1994 Respiratory respiratory effort/rhythm Overall: no retractions 05/05/2016 None Full Exam - General 1994 Respiratory respiratory effort/rhythm Overall: normal rate 05/05/2016 None Full Exam - General 1994 Musculoskeletal gait and station Overall: normal gait 05/05/2016 None Full Exam - General 1994 Musculoskeletal gait and station Overall: normal station 05/05/2016 None Full Exam - General 1994 Musculoskeletal head and neck Overall: head atraumatic 05/05/2016 None Full Exam - General 1994 Integument inspection of skin Overall: few scattered moles, no gross abnormalities 05/05/2016 None Full Exam - General 1994 Neurologic cranial nerves Overall: crainial nerves 2 - 12 grossly intact 05/05/2016 None Full Exam - General 1994 Psychiatric orientation/consciousness Overall: oriented to person, place and time 05/05/2016 None Full Exam - General 1994 Psychiatric mood and affect Overall: normal mood and affect 05/05/2016 None Full Exam - General 1994 Psychiatric appearance Overall: well-groomed, good eye contact 05/05/2016 None Full Exam - General 1994 Neurologic gait Overall: no ataxia, no unsteadiness 05/05/2016 None Full Exam - General 1994 Constitutional general appearance Overall: well developed 04/10/2016 None Full Exam - General 1994 Constitutional general appearance Overall: in no acute distress 04/10/2016 None Full Exam - General 1994 Constitutional general appearance Overall: well nourished 04/10/2016 None Full Exam - General 1994 Eyes conjunctiva /eyelids Overall: conjunctiva clear 04/10/2016 None Full Exam - General 1994 Eyes conjunctiva /eyelids Overall: cornea clear 04/10/2016 None Full Exam - General 1994 Eyes conjunctiva /eyelids Overall: eyelids normal 04/10/2016 None Full Exam - General 1994 Ears/Nose/Throat lips/teeth/gingiva Overall: benign lips 04/10/2016 None Full Exam - General 1994 Ears/Nose/Throat lips/teeth/gingiva Overall: normal dentition 04/10/2016 None Full Exam - General 1994 Ears/Nose/Throat oral cavity/pharynx/larynx Overall: oral mucosa clear 04/10/2016 None Full Exam - General 1994 Respiratory respiratory effort/rhythm Overall: no retractions 04/10/2016 None Full Exam - General 1994 Respiratory respiratory effort/rhythm Overall: normal rate 04/10/2016 None Full Exam - General 1994 Musculoskeletal gait and station Overall: normal gait 04/10/2016 None Full Exam - General 1994 Musculoskeletal gait and station Overall: normal station 04/10/2016 None Full Exam - General 1994 Integument inspection of skin Overall: no rash, lesions 04/10/2016 None Full Exam - General 1994 Neurologic cranial nerves Overall: crainial nerves 2 - 12 grossly intact 04/10/2016 None Full Exam - General 1994 Psychiatric orientation/consciousness Overall: oriented to person, place and time 04/10/2016 None Full Exam - General 1994 Psychiatric mood and affect Overall: normal mood and affect 04/10/2016 None Full Exam - General 1994 Psychiatric appearance Overall: well-groomed, good eye contact 04/10/2016 None Full Exam - General 1994 Musculoskeletal upper extremity ROM - shoulder: pain with abduction 04/10/2016 None Full Exam - General 1994 Musculoskeletal upper extremity ROM - shoulder: pain with adduction 04/10/2016 None Full Exam - General 1994 Constitutional general appearance Overall: well developed 04/06/2016 None Full Exam - General 1994 Constitutional general appearance Overall: in no acute distress 04/06/2016 None Full Exam - General 1994 Constitutional general appearance Overall: well nourished 04/06/2016 None Full Exam - General 1994 Eyes conjunctiva /eyelids Overall: conjunctiva clear 04/06/2016 None Full Exam - General 1994 Eyes conjunctiva /eyelids Overall: eyelids normal 04/06/2016 None Full Exam - General 1994 Ears/Nose/Throat lips/teeth/gingiva Overall: benign lips 04/06/2016 None Full Exam - General 1994 Respiratory respiratory effort/rhythm Overall: no retractions 04/06/2016 None Full Exam - General 1994 Respiratory respiratory effort/rhythm Overall: normal rate 04/06/2016 None Full Exam - General 1994 Musculoskeletal gait and station Overall: normal gait 04/06/2016 None Full Exam - General 1994 Musculoskeletal gait and station Overall: normal station 04/06/2016 None Full Exam - General 1994 Neurologic cranial nerves Overall: crainial nerves 2 - 12 grossly intact 04/06/2016 None Full Exam - General 1994 Psychiatric orientation/consciousness Overall: oriented to person, place and time 04/06/2016 None Full Exam - General 1994 Psychiatric mood and affect Overall: normal mood and affect 04/06/2016 None Full Exam - General 1994 Psychiatric appearance Overall: well-groomed, good eye contact 04/06/2016 None Full Exam - General 1994 Musculoskeletal upper extremity Palpation - shoulder: tenderness @ subacromial space 04/06/2016 None Full Exam - General 1994 Musculoskeletal upper extremity Palpation - shoulder: tenderness @ bicipital groove 04/06/2016 None Full Exam - General 1994 Musculoskeletal upper extremity ROM - shoulder: pain with abduction 04/06/2016 None Full Exam - General 1994 Musculoskeletal upper extremity ROM - shoulder: pain with adduction 04/06/2016 None Full Exam - General 1994 Musculoskeletal upper extremity Muscle Strength/Tone - shoulder: spastic 04/06/2016 None Full Exam - General 1994 Constitutional general appearance Overall: well developed 03/08/2016 None Full Exam - General 1994 Constitutional general appearance Overall: in no acute distress 03/08/2016 None Full Exam - General 1994 Constitutional general appearance Overall: well nourished 03/08/2016 None Full Exam - General 1994 Eyes conjunctiva /eyelids Overall: conjunctiva clear 03/08/2016 None Full Exam - General 1994 Eyes conjunctiva /eyelids Overall: cornea clear 03/08/2016 None Full Exam - General 1994 Eyes conjunctiva /eyelids Overall: eyelids normal 03/08/2016 None Full Exam - General 1994 Ears/Nose/Throat otoscopic exam Overall: external auditory canals clear 03/08/2016 None Full Exam - General 1994 Ears/Nose/Throat otoscopic exam Tympanic membrane: air- fluid level 03/08/2016 None Full Exam - General 1994 Ears/Nose/Throat internal nose Drainage: clear 03/08/2016 None Full Exam - General 1994 Ears/Nose/Throat internal nose Sinus tenderness: left maxillary 03/08/2016 None Full Exam - General 1994 Ears/Nose/Throat internal nose Sinus tenderness: right maxillary 03/08/2016 None Full Exam - General 1994 Ears/Nose/Throat lips/teeth/gingiva Overall: benign lips 03/08/2016 None Full Exam - General 1994 Ears/Nose/Throat lips/teeth/gingiva Overall: normal dentition 03/08/2016 None Full Exam - General 1994 Ears/Nose/Throat oral cavity/pharynx/larynx Overall: oral mucosa clear 03/08/2016 None Full Exam - General 1994 Ears/Nose/Throat oral cavity/pharynx/larynx Overall: no masses 03/08/2016 None Full Exam - General 1994 Ears/Nose/Throat oral cavity/pharynx/larynx Posterior Pharynx: clear post nasal drainage 03/08/2016 None Full Exam - General 1994 Respiratory auscultation Diffuse: diminished 03/08/2016 None Full Exam - General 1994 Respiratory respiratory effort/rhythm Overall: no retractions 03/08/2016 None Full Exam - General 1994 Respiratory respiratory effort/rhythm Overall: normal rate 03/08/2016 None Full Exam - General 1994 Cardiovascular extremities Overall: no clubbing 03/08/2016 None Full Exam - General 1994 Cardiovascular auscultation of heart Overall: regular rate 03/08/2016 None Full Exam - General 1994 Cardiovascular auscultation of heart Overall: normal heart sounds 03/08/2016 None Full Exam - General 1994 Musculoskeletal gait and station Overall: normal gait 03/08/2016 None Full Exam - General 1994 Musculoskeletal gait and station Overall: normal station 03/08/2016 None Full Exam - General 1994 Neurologic cranial nerves Overall: crainial nerves 2 - 12 grossly intact 03/08/2016 None Full Exam - General 1994 Psychiatric orientation/consciousness Overall: oriented to person, place and time 03/08/2016 None Full Exam - General 1994 Psychiatric mood and affect Overall: normal mood and affect 03/08/2016 None Full Exam - General 1994 Psychiatric appearance Overall: well-groomed, good eye contact 03/08/2016 None Full Exam - General 1994 Respiratory auscultation Lower lung field: expiratory wheezes 03/08/2016 None Full Exam - General 1994 Integument inspection of skin Location: abdomen 03/08/2016 left lower abd - open comedo - removed pt tolerated well. Full Exam - General 1994 Constitutional general appearance Overall: well developed 02/28/2016 None Full Exam - General 1994 Constitutional general appearance Overall: in no acute distress 02/28/2016 None Full Exam - General 1994 Constitutional general appearance Overall: well nourished 02/28/2016 None Full Exam - General 1994 Eyes conjunctiva /eyelids Overall: conjunctiva clear 02/28/2016 None Full Exam - General 1994 Eyes conjunctiva /eyelids Overall: cornea clear 02/28/2016 None Full Exam - General 1994 Eyes conjunctiva /eyelids Overall: eyelids normal 02/28/2016 None Full Exam - General 1994 Ears/Nose/Throat otoscopic exam Overall: external auditory canals clear 02/28/2016 None Full Exam - General 1994 Ears/Nose/Throat internal nose Drainage: clear 02/28/2016 None Full Exam - General 1994 Ears/Nose/Throat internal nose Sinus tenderness: left maxillary 02/28/2016 None Full Exam - General 1994 Ears/Nose/Throat internal nose Sinus tenderness: right maxillary 02/28/2016 None Full Exam - General 1994 Ears/Nose/Throat lips/teeth/gingiva Overall: benign lips 02/28/2016 None Full Exam - General 1994 Ears/Nose/Throat lips/teeth/gingiva Overall: normal dentition 02/28/2016 None Full Exam - General 1994 Ears/Nose/Throat oral cavity/pharynx/larynx Overall: oral mucosa clear 02/28/2016 None Full Exam - General 1994 Ears/Nose/Throat oral cavity/pharynx/larynx Overall: no masses 02/28/2016 None Full Exam - General 1994 Ears/Nose/Throat oral cavity/pharynx/larynx Posterior Pharynx: clear post nasal drainage 02/28/2016 None Full Exam - General 1994 Respiratory auscultation Diffuse: diminished 02/28/2016 None Full Exam - General 1994 Respiratory respiratory effort/rhythm Overall: no retractions 02/28/2016 None Full Exam - General 1994 Respiratory respiratory effort/rhythm Overall: normal rate 02/28/2016 None Full Exam - General 1994 Cardiovascular extremities Overall: no clubbing 02/28/2016 None Full Exam - General 1994 Cardiovascular auscultation of heart Overall: regular rate 02/28/2016 None Full Exam - General 1994 Cardiovascular auscultation of heart Overall: normal heart sounds 02/28/2016 None Full Exam - General 1994 Lymphatic neck nodes Overall: anterior cervical chain benign 02/28/2016 None Full Exam - General 1994 Lymphatic neck nodes Overall: posterior cervical chain benign 02/28/2016 None Full Exam - General 1994 Musculoskeletal gait and station Overall: normal gait 02/28/2016 None Full Exam - General 1994 Musculoskeletal gait and station Overall: normal station 02/28/2016 None Full Exam - General 1994 Neurologic cranial nerves Overall: crainial nerves 2 - 12 grossly intact 02/28/2016 None Full Exam - General 1994 Psychiatric orientation/consciousness Overall: oriented to person, place and time 02/28/2016 None Full Exam - General 1994 Psychiatric mood and affect Overall: normal mood and affect 02/28/2016 None Full Exam - General 1994 Psychiatric appearance Overall: well-groomed, good eye contact 02/28/2016 None Full Exam - General 1994 Psychiatric speech Overall: normal quality, no aphasia 02/28/2016 None Full Exam - General 1994 Ears/Nose/Throat otoscopic exam Tympanic membrane: air- fluid level 02/28/2016 None Full Exam - General 1994 Lymphatic axilla /arm nodes Axillary: Left number of palpable nodes: 1 02/28/2016 in the left upper, inner arm Full Exam - General 1994 Lymphatic axilla /arm nodes Axillary: Left size (cm): 1 - 1.5cm 02/28/2016 None Full Exam - General 1994 Lymphatic axilla /arm nodes Axillary: tender 02/28/2016 None Full Exam - General 1994 Lymphatic axilla /arm nodes Axillary: firm 02/28/2016 None Full Exam - General 1994 Constitutional general appearance Overall: well developed 01/18/2016 None Full Exam - General 1994 Constitutional general appearance Overall: in no acute distress 01/18/2016 None Full Exam - General 1994 Constitutional general appearance Overall: well nourished 01/18/2016 None Full Exam - General 1994 Eyes conjunctiva /eyelids Overall: conjunctiva clear 01/18/2016 None Full Exam - General 1994 Eyes conjunctiva /eyelids Overall: cornea clear 01/18/2016 None Full Exam - General 1994 Eyes conjunctiva /eyelids Overall: eyelids normal 01/18/2016 None Full Exam - General 1994 Ears/Nose/Throat lips/teeth/gingiva Overall: benign lips 01/18/2016 None Full Exam - General 1994 Ears/Nose/Throat lips/teeth/gingiva Overall: normal dentition 01/18/2016 None Full Exam - General 1994 Ears/Nose/Throat oral cavity/pharynx/larynx Overall: oral mucosa clear 01/18/2016 None Full Exam - General 1994 Respiratory respiratory effort/rhythm Overall: no retractions 01/18/2016 None Full Exam - General 1994 Respiratory respiratory effort/rhythm Overall: normal rate 01/18/2016 None Full Exam - General 1994 Musculoskeletal gait and station Overall: normal gait 01/18/2016 None Full Exam - General 1994 Musculoskeletal gait and station Overall: normal station 01/18/2016 None Full Exam - General 1994 Integument inspection of skin Overall: no rash, lesions 01/18/2016 None Full Exam - General 1994 Neurologic cranial nerves Overall: crainial nerves 2 - 12 grossly intact 01/18/2016 None Full Exam - General 1994 Psychiatric orientation/consciousness Overall: oriented to person, place and time 01/18/2016 None Full Exam - General 1994 Psychiatric mood and affect Overall: normal mood and affect 01/18/2016 None Full Exam - General 1994 Psychiatric appearance Overall: well-groomed, good eye contact 01/18/2016 None Full Exam - General 1994 Psychiatric speech Overall: normal quality, no aphasia 01/18/2016 None Full Exam - General 1994 Psychiatric speech Overall: normal quality, quantity, rate 01/18/2016 None Full Exam - General 1994 Constitutional general appearance Overall: well developed 12/23/2015 None Full Exam - General 1994 Constitutional general appearance Overall: in no acute distress 12/23/2015 None Full Exam - General 1994 Constitutional general appearance Overall: well nourished 12/23/2015 None Full Exam - General 1994 Eyes conjunctiva /eyelids Overall: conjunctiva clear 12/23/2015 None Full Exam - General 1994 Eyes conjunctiva /eyelids Overall: cornea clear 12/23/2015 None Full Exam - General 1994 Eyes conjunctiva /eyelids Overall: eyelids normal 12/23/2015 None Full Exam - General 1994 Ears/Nose/Throat lips/teeth/gingiva Overall: benign lips 12/23/2015 None Full Exam - General 1994 Ears/Nose/Throat lips/teeth/gingiva Overall: normal dentition 12/23/2015 None Full Exam - General 1994 Ears/Nose/Throat oral cavity/pharynx/larynx Overall: oral mucosa clear 12/23/2015 None Full Exam - General 1994 Respiratory respiratory effort/rhythm Overall: no retractions 12/23/2015 None Full Exam - General 1994 Respiratory respiratory effort/rhythm Overall: normal rate 12/23/2015 None Full Exam - General 1994 Musculoskeletal gait and station Overall: normal gait 12/23/2015 None Full Exam - General 1994 Musculoskeletal gait and station Overall: normal station 12/23/2015 None Full Exam - General 1994 Integument inspection of skin Overall: no rash, lesions 12/23/2015 None Full Exam - General 1994 Neurologic cranial nerves Overall: crainial nerves 2 - 12 grossly intact 12/23/2015 None Full Exam - General 1994 Psychiatric orientation/consciousness Overall: oriented to person, place and time 12/23/2015 None Full Exam - General 1994 Psychiatric mood and affect Overall: normal mood and affect 12/23/2015 None Full Exam - General 1994 Psychiatric appearance Overall: well-groomed, good eye contact 12/23/2015 None Full Exam - General 1994 Psychiatric speech Overall: normal quality, no aphasia 12/23/2015 None Full Exam - General 1994 Psychiatric speech Overall: normal quality, quantity, rate 12/23/2015 None Full Exam - General 1994 Chest/Breast breast and axillae palpation Overall: breasts non-tender 12/23/2015 None Full Exam - General 1994 Chest/Breast breast and axillae palpation Overall: no nipple discharge 12/23/2015 None Full Exam - General 1994 Chest/Breast breast and axillae palpation Overall: axillae non-tender 12/23/2015 None Full Exam - General 1994 Chest/Breast breast/chest inspection Overall: breasts to symmetric and without lesions 12/23/2015 None Full Exam - General 1994 Chest/Breast breast/chest inspection Overall: normal chest shape 12/23/2015 None Full Exam - General 1994 Genitourinary uterus Overall: normal size 12/23/2015 None Full Exam - General 1994 Genitourinary cervix Inspection: normal os 12/23/2015 None Full Exam - General 1994 Genitourinary cervix Inspection: no lesions 12/23/2015 None Full Exam - General 1994 Genitourinary labia and vagina Overall: normal hair distribution 12/23/2015 None Full Exam - General 1994 Genitourinary labia and vagina Overall: no lesions 12/23/2015 None Full Exam - General 1994 Genitourinary adnexa/parametria Overall: no tenderness 12/23/2015 None Full Exam - General 1994 Genitourinary urethra Overall: no masses 12/23/2015 None Full Exam - General 1994 Genitourinary cervix Motion tenderness: not present 12/23/2015 None Full Exam - General 1994 Constitutional general appearance Overall: well developed 12/16/2015 None Full Exam - General 1994 Constitutional general appearance Overall: in no acute distress 12/16/2015 None Full Exam - General 1994 Constitutional general appearance Overall: well nourished 12/16/2015 None Full Exam - General 1994 Eyes conjunctiva /eyelids Overall: conjunctiva clear 12/16/2015 None Full Exam - General 1994 Eyes conjunctiva /eyelids Overall: cornea clear 12/16/2015 None Full Exam - General 1994 Eyes conjunctiva /eyelids Overall: eyelids normal 12/16/2015 None Full Exam - General 1994 Ears/Nose/Throat lips/teeth/gingiva Overall: benign lips 12/16/2015 None Full Exam - General 1994 Ears/Nose/Throat lips/teeth/gingiva Overall: normal dentition 12/16/2015 None Full Exam - General 1994 Ears/Nose/Throat oral cavity/pharynx/larynx Overall: oral mucosa clear 12/16/2015 None Full Exam - General 1994 Respiratory respiratory effort/rhythm Overall: no retractions 12/16/2015 None Full Exam - General 1994 Respiratory respiratory effort/rhythm Overall: normal rate 12/16/2015 None Full Exam - General 1994 Musculoskeletal gait and station Overall: normal gait 12/16/2015 None Full Exam - General 1994 Musculoskeletal gait and station Overall: normal station 12/16/2015 None Full Exam - General 1994 Integument inspection of skin Overall: no rash, lesions 12/16/2015 None Full Exam - General 1994 Neurologic cranial nerves Overall: crainial nerves 2 - 12 grossly intact 12/16/2015 None Full Exam - General 1994 Psychiatric orientation/consciousness Overall: oriented to person, place and time 12/16/2015 None Full Exam - General 1994 Psychiatric mood and affect Overall: normal mood and affect 12/16/2015 None Full Exam - General 1994 Psychiatric appearance Overall: well-groomed, good eye contact 12/16/2015 None Full Exam - General 1994 Psychiatric speech Overall: normal quality, no aphasia 12/16/2015 None Full Exam - General 1994 Psychiatric speech Overall: normal quality, quantity, rate 12/16/2015 None Full Exam - General 1994 Constitutional general appearance Overall: well developed 11/11/2015 None Full Exam - General 1994 Constitutional general appearance Overall: in no acute distress 11/11/2015 None Full Exam - General 1994 Constitutional general appearance Overall: well nourished 11/11/2015 None Full Exam - General 1994 Eyes conjunctiva /eyelids Overall: conjunctiva clear 11/11/2015 None Full Exam - General 1994 Eyes conjunctiva /eyelids Overall: cornea clear 11/11/2015 None Full Exam - General 1994 Eyes conjunctiva /eyelids Overall: eyelids normal 11/11/2015 None Full Exam - General 1994 Ears/Nose/Throat lips/teeth/gingiva Overall: benign lips 11/11/2015 None Full Exam - General 1994 Ears/Nose/Throat lips/teeth/gingiva Overall: normal dentition 11/11/2015 None Full Exam - General 1994 Ears/Nose/Throat oral cavity/pharynx/larynx Overall: oral mucosa clear 11/11/2015 None Full Exam - General 1994 Respiratory respiratory effort/rhythm Overall: no retractions 11/11/2015 None Full Exam - General 1994 Respiratory respiratory effort/rhythm Overall: normal rate 11/11/2015 None Full Exam - General 1994 Musculoskeletal gait and station Overall: normal gait 11/11/2015 None Full Exam - General 1994 Musculoskeletal gait and station Overall: normal station 11/11/2015 None Full Exam - General 1994 Neurologic cranial nerves Overall: crainial nerves 2 - 12 grossly intact 11/11/2015 None Full Exam - General 1994 Psychiatric orientation/consciousness Overall: oriented to person, place and time 11/11/2015 None Full Exam - General 1994 Psychiatric mood and affect Overall: normal mood and affect 11/11/2015 None Full Exam - General 1994 Psychiatric appearance Overall: well-groomed, good eye contact 11/11/2015 None Full Exam - General 1994 Integument inspection of skin Overall: no rash, lesions 11/11/2015 None Full Exam - General 1994 Psychiatric speech Overall: normal quality, no aphasia 11/11/2015 None Full Exam - General 1994 Psychiatric speech Overall: normal quality, quantity, rate 11/11/2015 None Full Exam - General 1994 Constitutional general appearance Overall: well developed 10/27/2015 None Full Exam - General 1994 Constitutional general appearance Overall: in no acute distress 10/27/2015 None Full Exam - General 1994 Constitutional general appearance Overall: well nourished 10/27/2015 None Full Exam - General 1994 Eyes conjunctiva /eyelids Overall: conjunctiva clear 10/27/2015 None Full Exam - General 1994 Eyes conjunctiva /eyelids Overall: cornea clear 10/27/2015 None Full Exam - General 1994 Eyes conjunctiva /eyelids Overall: eyelids normal 10/27/2015 None Full Exam - General 1994 Eyes pupils and irises Overall: pupils equal, round, reactive to light and accomodation 10/27/2015 None Full Exam - General 1994 Ears/Nose/Throat lips/teeth/gingiva Overall: benign lips 10/27/2015 None Full Exam - General 1994 Ears/Nose/Throat lips/teeth/gingiva Overall: normal dentition 10/27/2015 None Full Exam - General 1994 Respiratory respiratory effort/rhythm Overall: no retractions 10/27/2015 None Full Exam - General 1994 Respiratory respiratory effort/rhythm Overall: normal rate 10/27/2015 None Full Exam - General 1994 Cardiovascular extremities Overall: no clubbing 10/27/2015 None Full Exam - General 1994 Musculoskeletal gait and station Overall: normal gait 10/27/2015 None Full Exam - General 1994 Musculoskeletal gait and station Overall: normal station 10/27/2015 None Full Exam - General 1994 Neurologic cranial nerves Overall: crainial nerves 2 - 12 grossly intact 10/27/2015 None Full Exam - General 1994 Psychiatric orientation/consciousness Overall: oriented to person, place and time 10/27/2015 None Full Exam - General 1994 Psychiatric mood and affect Overall: normal mood and affect 10/27/2015 None Full Exam - General 1994 Psychiatric appearance Overall: well-groomed, good eye contact 10/27/2015 None Full Exam - General 1994 Ears/Nose/Throat oral cavity/pharynx/larynx Overall: oral mucosa clear 10/27/2015 None Full Exam - General 1994 Integument inspection of skin Overall: few scattered moles, no gross abnormalities 10/27/2015 None Full Exam - General 1994 Integument inspection of skin Location: right foot 10/27/2015 None Full Exam - General 1994 Integument inspection of skin Consistency: dry 10/27/2015 cracked Full Exam - General 1994 Constitutional general appearance Overall: well developed 10/13/2015 None Full Exam - General 1994 Constitutional general appearance Overall: in no acute distress 10/13/2015 None Full Exam - General 1994 Constitutional general appearance Overall: well nourished 10/13/2015 None Full Exam - General 1994 Eyes conjunctiva /eyelids Overall: conjunctiva clear 10/13/2015 None Full Exam - General 1994 Eyes conjunctiva /eyelids Overall: cornea clear 10/13/2015 None Full Exam - General 1994 Eyes conjunctiva /eyelids Overall: eyelids normal 10/13/2015 None Full Exam - General 1994 Eyes pupils and irises Overall: pupils equal, round, reactive to light and accomodation 10/13/2015 None Full Exam - General 1994 Ears/Nose/Throat lips/teeth/gingiva Overall: benign lips 10/13/2015 None Full Exam - General 1994 Ears/Nose/Throat lips/teeth/gingiva Overall: normal dentition 10/13/2015 None Full Exam - General 1994 Respiratory respiratory effort/rhythm Overall: no retractions 10/13/2015 None Full Exam - General 1994 Respiratory respiratory effort/rhythm Overall: normal rate 10/13/2015 None Full Exam - General 1994 Cardiovascular extremities Overall: no clubbing 10/13/2015 None Full Exam - General 1994 Musculoskeletal gait and station Overall: normal gait 10/13/2015 None Full Exam - General 1994 Musculoskeletal gait and station Overall: normal station 10/13/2015 None Full Exam - General 1994 Integument inspection of skin Overall: no rash, lesions 10/13/2015 None Full Exam - General 1994 Neurologic cranial nerves Overall: crainial nerves 2 - 12 grossly intact 10/13/2015 None Full Exam - General 1994 Psychiatric orientation/consciousness Overall: oriented to person, place and time 10/13/2015 None Full Exam - General 1994 Psychiatric mood and affect Overall: normal mood and affect 10/13/2015 None Full Exam - General 1994 Psychiatric appearance Overall: well-groomed, good eye contact 10/13/2015 None Full Exam - General 1994 Psychiatric speech Overall: normal quality, no aphasia 10/13/2015 None Full Exam - General 1994 Constitutional general appearance Overall: well developed 10/05/2015 None Full Exam - General 1994 Constitutional general appearance Overall: in no acute distress 10/05/2015 None Full Exam - General 1994 Constitutional general appearance Overall: well nourished 10/05/2015 None Full Exam - General 1994 Eyes conjunctiva /eyelids Overall: conjunctiva clear 10/05/2015 None Full Exam - General 1994 Eyes conjunctiva /eyelids Overall: cornea clear 10/05/2015 None Full Exam - General 1994 Eyes conjunctiva /eyelids Overall: eyelids normal 10/05/2015 None Full Exam - General 1994 Eyes pupils and irises Overall: pupils equal, round, reactive to light and accomodation 10/05/2015 None Full Exam - General 1994 Ears/Nose/Throat otoscopic exam Overall: external auditory canals clear 10/05/2015 None Full Exam - General 1994 Ears/Nose/Throat otoscopic exam Tympanic membrane: air- fluid level 10/05/2015 None Full Exam - General 1994 Ears/Nose/Throat internal nose Drainage: clear 10/05/2015 None Full Exam - General 1994 Ears/Nose/Throat internal nose Sinus tenderness: left maxillary 10/05/2015 None Full Exam - General 1994 Ears/Nose/Throat internal nose Sinus tenderness: right maxillary 10/05/2015 None Full Exam - General 1994 Ears/Nose/Throat lips/teeth/gingiva Overall: benign lips 10/05/2015 None Full Exam - General 1994 Ears/Nose/Throat lips/teeth/gingiva Overall: normal dentition 10/05/2015 None Full Exam - General 1994 Ears/Nose/Throat oral cavity/pharynx/larynx Overall: oral mucosa clear 10/05/2015 None Full Exam - General 1994 Ears/Nose/Throat oral cavity/pharynx/larynx Posterior Pharynx: clear post nasal drainage 10/05/2015 None Full Exam - General 1994 Respiratory auscultation Diffuse: diminished 10/05/2015 None Full Exam - General 1994 Respiratory respiratory effort/rhythm Overall: no retractions 10/05/2015 None Full Exam - General 1994 Respiratory respiratory effort/rhythm Overall: normal rate 10/05/2015 None Full Exam - General 1994 Cardiovascular extremities Overall: no clubbing 10/05/2015 None Full Exam - General 1994 Cardiovascular auscultation of heart Overall: regular rate 10/05/2015 None Full Exam - General 1994 Cardiovascular auscultation of heart Overall: normal heart sounds 10/05/2015 None Full Exam - General 1994 Lymphatic neck nodes Overall: anterior cervical chain benign 10/05/2015 None Full Exam - General 1994 Lymphatic neck nodes Overall: posterior cervical chain benign 10/05/2015 None Full Exam - General 1994 Musculoskeletal gait and station Overall: normal gait 10/05/2015 None Full Exam - General 1994 Musculoskeletal gait and station Overall: normal station 10/05/2015 None Full Exam - General 1994 Integument inspection of skin Overall: no rash, lesions 10/05/2015 None Full Exam - General 1994 Neurologic cranial nerves Overall: crainial nerves 2 - 12 grossly intact 10/05/2015 None Full Exam - General 1994 Psychiatric orientation/consciousness Overall: oriented to person, place and time 10/05/2015 None Full Exam - General 1994 Psychiatric mood and affect Overall: normal mood and affect 10/05/2015 None Full Exam - General 1994 Psychiatric appearance Overall: well-groomed, good eye contact 10/05/2015 None Full Exam - General 1994 Psychiatric speech Overall: normal quality, no aphasia 10/05/2015 None Full Exam - General 1994 Ears/Nose/Throat otoscopic exam Tympanic membrane: erythematous 10/05/2015 None Full Exam - General 1994 Constitutional general appearance Overall: well developed 09/01/2015 None Full Exam - General 1994 Constitutional general appearance Overall: in no acute distress 09/01/2015 None Full Exam - General 1994 Constitutional general appearance Overall: well nourished 09/01/2015 None Full Exam - General 1994 Eyes conjunctiva /eyelids Overall: conjunctiva clear 09/01/2015 None Full Exam - General 1994 Eyes conjunctiva /eyelids Overall: cornea clear 09/01/2015 None Full Exam - General 1994 Eyes conjunctiva /eyelids Overall: eyelids normal 09/01/2015 None Full Exam - General 1994 Eyes pupils and irises Overall: pupils equal, round, reactive to light and accomodation 09/01/2015 None Full Exam - General 1994 Ears/Nose/Throat lips/teeth/gingiva Overall: benign lips 09/01/2015 None Full Exam - General 1994 Ears/Nose/Throat lips/teeth/gingiva Overall: normal dentition 09/01/2015 None Full Exam - General 1994 Respiratory respiratory effort/rhythm Overall: no retractions 09/01/2015 None Full Exam - General 1994 Respiratory respiratory effort/rhythm Overall: normal rate 09/01/2015 None Full Exam - General 1994 Cardiovascular extremities Overall: no clubbing 09/01/2015 None Full Exam - General 1994 Cardiovascular auscultation of heart Overall: regular rate 09/01/2015 None Full Exam - General 1994 Cardiovascular auscultation of heart Overall: normal heart sounds 09/01/2015 None Full Exam - General 1994 Abdomen abdominal exam Overall: no tenderness 09/01/2015 None Full Exam - General 1994 Abdomen abdominal exam Overall: normal bowel sounds 09/01/2015 None Full Exam - General 1994 Musculoskeletal gait and station Overall: normal gait 09/01/2015 None Full Exam - General 1994 Musculoskeletal gait and station Overall: normal station 09/01/2015 None Full Exam - General 1994 Neurologic cranial nerves Overall: crainial nerves 2 - 12 grossly intact 09/01/2015 None Full Exam - General 1994 Psychiatric orientation/consciousness Overall: oriented to person, place and time 09/01/2015 None Full Exam - General 1994 Psychiatric mood and affect Overall: normal mood and affect 09/01/2015 None Full Exam - General 1994 Psychiatric appearance Overall: well-groomed, good eye contact 09/01/2015 None Full Exam - General 1994 Psychiatric speech Overall: normal quality, no aphasia 09/01/2015 None Full Exam - General 1994 Respiratory auscultation Diffuse: diminished 09/01/2015 None Full Exam - General 1994 Integument inspection of skin Location: right leg 09/01/2015 lateral thigh - dark purple area approximately 1/2 cm in size, pt states that it is getting bigger and darker. Full Exam - General 1994 Integument inspection of skin Location: left axilla 09/01/2015 Brown, rough area Full Exam - General 1994 Integument inspection of skin Location: right axilla 09/01/2015 Brown, rough area Full Exam - General 1994 Constitutional general appearance Overall: well developed 08/20/2015 None Full Exam - General 1994 Constitutional general appearance Overall: in no acute distress 08/20/2015 None Full Exam - General 1994 Constitutional general appearance Overall: well nourished 08/20/2015 None Full Exam - General 1994 Eyes conjunctiva /eyelids Overall: conjunctiva clear 08/20/2015 None Full Exam - General 1994 Eyes conjunctiva /eyelids Overall: cornea clear 08/20/2015 None Full Exam - General 1994 Eyes conjunctiva /eyelids Overall: eyelids normal 08/20/2015 None Full Exam - General 1994 Eyes pupils and irises Overall: pupils equal, round, reactive to light and accomodation 08/20/2015 None Full Exam - General 1994 Ears/Nose/Throat otoscopic exam Overall: external auditory canals clear 08/20/2015 None Full Exam - General 1994 Ears/Nose/Throat otoscopic exam Overall: tympanic membranes clear 08/20/2015 None Full Exam - General 1994 Ears/Nose/Throat lips/teeth/gingiva Overall: benign lips 08/20/2015 None Full Exam - General 1994 Ears/Nose/Throat lips/teeth/gingiva Overall: normal dentition 08/20/2015 None Full Exam - General 1994 Ears/Nose/Throat oral cavity/pharynx/larynx Overall: oral mucosa clear 08/20/2015 None Full Exam - General 1994 Ears/Nose/Throat oral cavity/pharynx/larynx Overall: no masses 08/20/2015 None Full Exam - General 1994 Respiratory respiratory effort/rhythm Overall: no retractions 08/20/2015 None Full Exam - General 1994 Respiratory respiratory effort/rhythm Overall: normal rate 08/20/2015 None Full Exam - General 1994 Cardiovascular extremities Overall: no clubbing 08/20/2015 None Full Exam - General 1994 Cardiovascular auscultation of heart Overall: regular rate 08/20/2015 None Full Exam - General 1994 Cardiovascular auscultation of heart Overall: normal heart sounds 08/20/2015 None Full Exam - General 1994 Abdomen abdominal exam Overall: no tenderness 08/20/2015 None Full Exam - General 1994 Abdomen abdominal exam Overall: normal bowel sounds 08/20/2015 None Full Exam - General 1994 Lymphatic neck nodes Overall: anterior cervical chain benign 08/20/2015 None Full Exam - General 1994 Lymphatic neck nodes Overall: posterior cervical chain benign 08/20/2015 None Full Exam - General 1994 Musculoskeletal gait and station Overall: normal gait 08/20/2015 None Full Exam - General 1994 Musculoskeletal gait and station Overall: normal station 08/20/2015 None Full Exam - General 1994 Integument inspection of skin Overall: few scattered moles, no gross abnormalities 08/20/2015 None Full Exam - General 1994 Integument inspection of skin Overall: no rash, lesions 08/20/2015 None Full Exam - General 1994 Neurologic cranial nerves Overall: crainial nerves 2 - 12 grossly intact 08/20/2015 None Full Exam - General 1994 Psychiatric orientation/consciousness Overall: oriented to person, place and time 08/20/2015 None Full Exam - General 1994 Psychiatric mood and affect Overall: normal mood and affect 08/20/2015 None Full Exam - General 1994 Psychiatric appearance Overall: well-groomed, good eye contact 08/20/2015 None Full Exam - General 1994 Psychiatric speech Overall: normal quality, no aphasia 08/20/2015 None Full Exam - General 1994 Ears/Nose/Throat internal nose Sinus tenderness: right maxillary 08/20/2015 None Full Exam - General 1994 Ears/Nose/Throat internal nose Sinus tenderness: left maxillary 08/20/2015 None Full Exam - General 1994 Ears/Nose/Throat internal nose Drainage: clear 08/20/2015 None Full Exam - General 1994 Ears/Nose/Throat otoscopic exam Tympanic membrane: air- fluid level 08/20/2015 None Full Exam - General 1994 Ears/Nose/Throat oral cavity/pharynx/larynx Posterior Pharynx: clear post nasal drainage 08/20/2015 None Full Exam - General 1994 Respiratory auscultation Diffuse: diminished 08/20/2015 None Full Exam - General 1994 Constitutional general appearance Overall: well developed 08/03/2015 None Full Exam - General 1994 Constitutional general appearance Overall: in no acute distress 08/03/2015 None Full Exam - General 1994 Constitutional general appearance Overall: well nourished 08/03/2015 None Full Exam - General 1994 Eyes pupils and irises Overall: pupils equal, round, reactive to light and accomodation 08/03/2015 None Full Exam - General 1994 Eyes conjunctiva /eyelids Overall: conjunctiva clear 08/03/2015 None Full Exam - General 1994 Eyes conjunctiva /eyelids Overall: cornea clear 08/03/2015 None Full Exam - General 1994 Eyes conjunctiva /eyelids Overall: eyelids normal 08/03/2015 None Full Exam - General 1994 Ears/Nose/Throat otoscopic exam Overall: external auditory canals clear 08/03/2015 None Full Exam - General 1994 Ears/Nose/Throat otoscopic exam Overall: tympanic membranes clear 08/03/2015 None Full Exam - General 1994 Ears/Nose/Throat lips/teeth/gingiva Overall: benign lips 08/03/2015 None Full Exam - General 1994 Ears/Nose/Throat lips/teeth/gingiva Overall: normal dentition 08/03/2015 None Full Exam - General 1994 Ears/Nose/Throat oral cavity/pharynx/larynx Overall: oral mucosa clear 08/03/2015 None Full Exam - General 1994 Ears/Nose/Throat oral cavity/pharynx/larynx Overall: oropharyngeal mucosa clear 08/03/2015 None Full Exam - General 1994 Ears/Nose/Throat oral cavity/pharynx/larynx Overall: no masses 08/03/2015 None Full Exam - General 1994 Respiratory auscultation Overall: breath sounds clear bilaterally 08/03/2015 None Full Exam - General 1994 Respiratory respiratory effort/rhythm Overall: no retractions 08/03/2015 None Full Exam - General 1994 Respiratory respiratory effort/rhythm Overall: normal rate 08/03/2015 None Full Exam - General 1994 Cardiovascular extremities Overall: no clubbing 08/03/2015 None Full Exam - General 1994 Cardiovascular auscultation of heart Overall: regular rate 08/03/2015 None Full Exam - General 1994 Cardiovascular auscultation of heart Overall: normal heart sounds 08/03/2015 None Full Exam - General 1994 Abdomen abdominal exam Overall: no tenderness 08/03/2015 None Full Exam - General 1994 Abdomen abdominal exam Overall: normal bowel sounds 08/03/2015 None Full Exam - General 1994 Lymphatic neck nodes Overall: anterior cervical chain benign 08/03/2015 None Full Exam - General 1994 Lymphatic neck nodes Overall: posterior cervical chain benign 08/03/2015 None Full Exam - General 1994 Musculoskeletal gait and station Overall: normal gait 08/03/2015 None Full Exam - General 1994 Musculoskeletal gait and station Overall: normal station 08/03/2015 None Full Exam - General 1994 Integument inspection of skin Overall: few scattered moles, no gross abnormalities 08/03/2015 None Full Exam - General 1994 Integument inspection of skin Overall: no rash, lesions 08/03/2015 None Full Exam - General 1994 Neurologic cranial nerves Overall: crainial nerves 2 - 12 grossly intact 08/03/2015 None Full Exam - General 1994 Psychiatric orientation/consciousness Overall: oriented to person, place and time 08/03/2015 None Full Exam - General 1994 Psychiatric mood and affect Overall: normal mood and affect 08/03/2015 None Full Exam - General 1994 Psychiatric appearance Overall: well-groomed, good eye contact 08/03/2015 None Full Exam - General 1994 Psychiatric speech Overall: normal quality, no aphasia 08/03/2015 None Full Exam - General 1994 Cardiovascular extremities Edema present: pitting 08/03/2015 None Full Exam - General 1994 Cardiovascular extremities Edema present: severity 1+ - 4 +: trace to 1+ 08/03/2015 None Procedures Procedure Codes Date IMMUNIZATION ADMIN CPT -4: 03251 04/24/2017 FLU VAC NO PRSV 4 PRECIOUS 3 YRS+ CPT-4: 32333 04/24/2017 DRAIN/INJECT JOINT/BURSA CPT-4: 32637 04/24/2017 TRIAMCINOLONE ACET INJ NOS CPT-4: J3301 04/24/2017 THER/PROPH/DIAG INJ SC/IM CPT-4: 46236 01/09/2017 TRIAMCINOLONE ACET INJ NOS CPT-4: J3301 01/09/2017 THER/PROPH/DIAG INJ SC/IM CPT-4: 89229 04/13/2016 Pneumococcal Polysaccharide Vaccine, 23-Valent, Ad CPT-4: 07789 04/13/2016 INJECT TRIGGER POINTS 3/> CPT-4: 33032 04/06/2016 TRIAMCINOLONE ACET INJ NOS CPT-4: J3301 04/06/2016 IMMUNIZATION ADMIN CPT -4: 66197 03/30/2016 IIV4 FLU VACC NO PRESERV ID SNOMED CT: [id number] CPT-4: 35979 03/30/2016 TRIAMCINOLONE ACET INJ NOS CPT-4: J3301 02/28/2016 THER/PROPH/DIAG INJ SC/IM CPT-4: 08389 02/28/2016 TRIAMCINOLONE ACET INJ NOS CPT-4: J3301 08/20/2015 Vital Signs Date Vital 06/07/2017 Blood Pressure 1: 132/74 Code : 8480-6 Heart Rate 1: 99 bpm Height: 4'11" SpO2: 95% 04/24/2017 Blood Pressure 1: 132/8096 Code: 8480-6 BMI: 47.7 Code: 40086-5 Heart Rate 1: 96 bpm Height: 4'11" Weight: 236 lbs 01/09/2017 Blood Pressure 1: 122/74 Code : 8480-6 BMI: 46.0 Code : 04358-4 Heart Rate 1 : 114 bpm Height: 4'11 " SpO2: 98% Temperature: 37.1 (C) / 98.7 (F) Weight: 228 lbs 10/30/2016 Blood Pressure 1: 124/78 Code : 8480-6 BMI: 49.1 Code : 72073-4 Heart Rate 1 : 90 bpm Height: 4'11" SpO2: 97% Weight: 243 lbs 10/09/2016 Blood Pressure 1: 124/80 Code : 8480-6 BMI: 49.3 Code : 98989-6 Heart Rate 1 : 91 bpm Height: 4'11" SpO2: 98% Weight: 244 lbs 09/12/2016 Blood Pressure 1: 128/80 Code : 8480-6 BMI: 49.1 Code : 98932-2 Heart Rate 1 : 94 bpm Height: 4'11" SpO2: 95% Weight: 243 lbs 09/05/2016 Blood Pressure 1: 118/74 Code : 8480-6 BMI: 49.1 Code : 76571-5 Heart Rate 1 : 100 bpm Height: 4'11 " SpO2: 97% Weight: 243 lbs 06/16/2016 Blood Pressure 1: 120/62 Code : 8480-6 BMI: 49.1 Code : 04824-0 Heart Rate 1 : 100 bpm Height: 4'11 " SpO2: 96% Temperature: 36.7 (C) / 98.0 (F) Weight: 243 lbs 06/13/2016 Blood Pressure 1: 120/70 Code : 8480-6 Heart Rate 1: 117 bpm SpO2: 97% 05/19/2016 Blood Pressure 1: 130/64 Code : 8480-6 BMI: 49.1 Code : 95891-5 Heart Rate 1 : 101 bpm Height: 4'11 " SpO2: 96% Weight: 243 lbs 05/08/2016 Blood Pressure 1: 128/76 Code : 8480-6 Heart Rate 1: 119 bpm Height: SpO2: 97% Weight: 05/05/2016 Blood Pressure 1: 124/76 Code : 8480-6 BMI: 49.1 Code : 53018-1 Heart Rate 1 : 75 bpm Height: 4'11" SpO2: 99% Weight: 243 lbs 04/10/2016 Blood Pressure 1: 140/80 Code : 8480-6 BMI: 49.7 Code : 62802-0 Heart Rate 1 : 88 bpm Height: 4'11" SpO2: 95% Weight: 246 lbs 04/06/2016 Blood Pressure 1: 134/82 Code : 8480-6 BMI: 75.1 Code : 21708-2 Heart Rate 1 : 72 bpm Height: 4' SpO2: 96% Weight: 246 lbs 03/08/2016 Blood Pressure 1: 126/72 Code : 8480-6 BMI: 49.7 Code : 76293-4 Heart Rate 1 : 89 bpm Height: 4'11" SpO2: 97% Weight: 246 lbs 02/28/2016 Blood Pressure 1: 124/68 Code : 8480-6 BMI: 49.7 Code : 63747-0 Heart Rate 1 : 89 bpm Height: 4'11" SpO2: 96% Weight: 246 lbs 01/18/2016 Blood Pressure 1: 142/78 Code : 8480-6 BMI: 48.9 Code : 66110-2 Heart Rate 1 : 97 bpm Height: 4'11" SpO2: 97% Weight: 242 lbs 12/23/2015 Blood Pressure 1: 124/74 Code : 8480-6 BMI: 48.9 Code : 65218-2 Heart Rate 1 : 106 bpm Height: 4'11 " SpO2: 96% Weight: 242 lbs 12/16/2015 Blood Pressure 1: 116/82 Code : 8480-6 BMI: 48.3 Code : 37772-3 Heart Rate 1 : 111 bpm Height: 4'11 " SpO2: 97% Weight: 239 lbs 11/11/2015 Blood Pressure 1: 130/80 Code : 8480-6 BMI: 49.7 Code : 90629-1 Heart Rate 1 : 105 bpm Height: 4'11 " SpO2: 96% Weight: 246 lbs 10/27/2015 Blood Pressure 1: 122/70 Code : 8480-6 BMI: 49.5 Code : 84441-6 Heart Rate 1 : 107 bpm Height: 4'11 " SpO2: 96% Weight: 245 lbs 10/13/2015 Blood Pressure 1: 140/82 Code : 8480-6 BMI: 50.9 Code : 36417-3 Heart Rate 1 : 111 bpm Height: 4'11 " SpO2: 96% Weight: 252 lbs 10/05/2015 Blood Pressure 1: 118/70 Code : 8480-6 BMI: 51.1 Code : 13729-1 Heart Rate 1 : 120 bpm Height: 4'11 " SpO2: 97% Weight: 253 lbs 09/01/2015 Blood Pressure 1: 132/82 Code : 8480-6 BMI: 50.1 Code : 43511-3 Heart Rate 1 : 110 bpm Height: 4'11 " SpO2: 96% Weight: 248 lbs 08/20/2015 Blood Pressure 1: 132/78 Code : 8480-6 BMI: 51.7 Code : 37981-1 Heart Rate 1 : 100 bpm Height: 4'11 " Weight: 256 lbs 08/03/2015 Blood Pressure 1: 148/92 Code : 8480-6 BMI: 52.1 Code : 55817-5 Heart Rate 1 : 100 bpm Height: 4'11 " SpO2: 97% Weight: 258 lbs Functional Status No Functional Status data History of Present Illness Symptom Name Status Result Effective Date Notes shortness of breath Quality breathlessness 06/07/2017 None shortness of breath Quality chest tightness 06/07/2017 None shortness of breath Onset and Resolution sudden in onset 06/07/2017 None shortness of breath Onset of Symptom 2 weeks ago 06/07/2017 None knee pain Location on the left 06/07/2017 None knee pain Quality constant 06/07/2017 None foot pain Onset and Resolution ongoing 06/07/2017 None rash Location-Major on the upper body 06/07/2017 None back pain Location lumbar-sacral spine 04/24/2017 None back pain Quality acute 04/24/2017 None back pain Onset and Resolution sudden in onset 04/24/2017 None back pain Onset of Symptom 2 weeks ago 04/24/2017 None back pain Limitation on Activities moderately limits activities 04/24/2017 None back pain Pertinent Findings Denies fever 04/24/2017 None back pain Pertinent Findings Denies chills 04/24/2017 None foot pain Location on the left 04/24/2017 None foot pain Location in the hindfoot region 04/24/2017 None foot pain Location achilles tendon 04/24/2017 None foot pain Location in the heel 04/24/2017 None foot pain Quality tingling 04/24/2017 None foot pain Quality tenderness 04/24/2017 None foot pain Quality acute 04/24/2017 None foot pain Quality throbbing 04/24/2017 None foot pain Quality intermittent 04/24/2017 None foot pain Pertinent Findings Denies decreased range of motion 04/24/2017 None headache Location diffusely 01/09/2017 None headache Quality constant 01/09/2017 None headache Onset and Resolution sudden in onset 01/09/2017 None headache Onset of Symptom 1 days ago 01/09/2017 None headache Alleviating Factors rest 01/09/2017 None headache Exacerbating Factors position change/leaning forward 01/09/2017 None headache Pertinent Findings blurred vision 01/09/2017 None headache Pertinent Findings lightheadedness 01/09/2017 None headache Pertinent Findings dizziness 01/09/2017 None earache Location right ear 01/09/2017 None earache Onset and Resolution sudden in onset 01/09/2017 None earache Onset of Symptom 1 days ago 01/09/2017 None vaginal discharge Quality white 10/30/2016 None vaginal discharge Quality thick 10/30/2016 None vaginal discharge Onset and Resolution sudden in onset 10/30/2016 None vaginal discharge Onset of Symptom 3 days ago 10/30/2016 None diabetes mellitus Quality chronic 10/30/2016 None diabetes mellitus Quality worsening 10/30/2016 None diabetes mellitus Test results fasting glucose >140 10/30/2016 None diabetes mellitus Blood glucose levels greater than 120 10/30/2016 None diabetes mellitus Pertinent Findings vaginitis 10/30/2016 None vaginal discharge Onset and Resolution sudden in onset 10/09/2016 None vaginal discharge Onset of Symptom 3 days ago 10/09/2016 None vaginal discharge Quality thick 10/09/2016 None vaginal discharge Quality white 10/09/2016 None abdominal pain Location in the epigastric area 09/12/2016 None abdominal pain Radiating the flank 09/12/2016 None abdominal pain Quality acute 09/12/2016 None abdominal pain Onset and Resolution ongoing 09/12/2016 None abdominal pain Pertinent Findings Denies vomiting 09/12/2016 None flank pain Location on both sides 09/05/2016 None flank pain Quality constant 09/05/2016 None flank pain Quality aching 09/05/2016 None flank pain Quality sharp 09/05/2016 None flank pain Quality stabbing 09/05/2016 None flank pain Onset of Symptom 6 weeks ago 09/05/2016 None vaginal discharge Quality foul-smelling 09/05/2016 None vaginal discharge Quality white 09/05/2016 None vaginal discharge Quality thick 09/05/2016 None vaginal discharge Onset and Resolution sudden in onset 09/05/2016 None vaginal discharge Onset of Symptom 2 weeks ago 09/05/2016 None sinus congestion Location on both sides 06/16/2016 None sinus congestion Quality fullness 06/16/2016 None sinus congestion Quality pressure 06/16/2016 None sinus congestion Quality pain 06/16/2016 None sinus congestion Onset and Resolution sudden in onset 06/16/2016 None sinus congestion Onset of Symptom 3 days ago 06/16/2016 None sinus congestion Frequency of Episodes daily 06/16/2016 None sinus congestion Pertinent Findings cough 06/16/2016 None sinus congestion Pertinent Findings hoarseness 06/16/2016 None sinus congestion Pertinent Findings fever 06/16/2016 None diabetes mellitus Test results fasting glucose >140 06/13/2016 None diabetes mellitus Blood glucose levels greater than 120 06/13/2016 None diabetes mellitus Glucose monitoring before meals 06/13/2016 None diabetes mellitus Glucose monitoring bedtime 06/13/2016 None diabetes mellitus Quality insulin dependent 05/19/2016 None diabetes mellitus Test results Pt checking blood glucose at home, see scanned readings 2015 None diabetes mellitus Glucose monitoring before meals 05/19/2016 None diabetes mellitus Glucose monitoring fasting 05/19/2016 None diabetes mellitus Glucose monitoring bedtime 05/19/2016 None Hospital Follow Up _ Other: elevated blood sugars 05/08/2016 None diabetes mellitus Quality insulin dependent 05/08/2016 None diabetes mellitus Test results fasting glucose >140 05/08/2016 None diabetes mellitus Quality insulin dependent 05/05/2016 None diabetes mellitus Test results Pt checking blood glucose at home, see scanned readings 2015 None diabetes mellitus Blood glucose levels greater than 120 05/05/2016 None diabetes mellitus Glucose monitoring twice daily 05/05/2016 None diabetes mellitus Nutrition regular diet 05/05/2016 None shoulder pain Quality aching 04/10/2016 None shoulder pain Quality constant 04/10/2016 None shoulder pain Quality sharp 04/10/2016 None shoulder pain Quality stabbing 04/10/2016 None shoulder pain Quality tenderness 04/10/2016 None shoulder pain Quality throbbing 04/10/2016 None shoulder pain Onset and Resolution sudden in onset 04/10/2016 None shoulder pain Onset of Symptom 4 days ago 04/10/2016 None shoulder pain Frequency of Episodes daily 04/10/2016 None shoulder pain Quality aching 04/06/2016 None shoulder pain Quality constant 04/06/2016 None shoulder pain Quality stabbing 04/06/2016 None shoulder pain Quality sharp 04/06/2016 None shoulder pain Quality tenderness 04/06/2016 None shoulder pain Quality throbbing 04/06/2016 None shoulder pain Onset and Resolution sudden in onset 04/06/2016 None shoulder pain Onset of Symptom 4 days ago 04/06/2016 None shoulder pain Frequency of Episodes daily 04/06/2016 None sinus congestion Location on both sides 03/08/2016 None sinus congestion Quality fullness 03/08/2016 None sinus congestion Quality pressure 03/08/2016 None sinus congestion Onset and Resolution sudden in onset 03/08/2016 None sinus congestion Onset of Symptom 3 days ago 03/08/2016 None sinus congestion Frequency of Episodes daily 03/08/2016 None sinus congestion Pertinent Findings cough 03/08/2016 None sinus congestion Pertinent Findings fever 03/08/2016 None sinus congestion Pertinent Findings hoarseness 03/08/2016 None skin lesion Quality firm 03/08/2016 None skin lesion Location left groin 03/08/2016 None sinus congestion Location on both sides 02/28/2016 None sinus congestion Quality fullness 02/28/2016 None sinus congestion Quality pressure 02/28/2016 None sinus congestion Onset and Resolution sudden in onset 02/28/2016 None sinus congestion Onset of Symptom 3 days ago 02/28/2016 None sinus congestion Frequency of Episodes daily 02/28/2016 None sinus congestion Pertinent Findings cough 02/28/2016 None sinus congestion Pertinent Findings fever 02/28/2016 None sinus congestion Pertinent Findings hoarseness 02/28/2016 None diabetes mellitus Quality non-insulin dependent 01/18/2016 None diabetes mellitus Quality chronic 01/18/2016 None diabetes mellitus Quality worsening 01/18/2016 None diabetes mellitus Severity moderate 01/18/2016 None diabetes mellitus Pertinent Findings Denies dyspnea 01/18/2016 None well woman exam (40-65 years) Pap Smear last normal performed on 2007- 12/23/2015 None well woman exam (40-65 years) Pap Smear normal results 12/23/2015 None well woman exam (40-65 years) Menstrual History irregular menses 12/23/2015 None well woman exam (40-65 years) Menstrual History last menstrual period 52-6_-__ 12/23/2015 None well woman exam (40-65 years) Menstrual History heavy flow 12/23/2015 None well woman exam (40-65 years) Control none 12/23/2015 None well woman exam (40-65 years) Nutrition and Exercise overweight 12/23/2015 None well woman exam (40-65 years) Nutrition and Exercise no exercise 12/23/2015 None well woman exam (40-65 years) Obstetrical History 1 full term 12/23/2015 None well woman exam (40-65 years) Obstetrical History 1 total pregnancies 12/23/2015 None diabetes mellitus Quality non-insulin dependent 12/16/2015 None diabetes mellitus Test results Pt checking blood glucose at home, see scanned readings 2015 None diabetes mellitus Glucose monitoring twice daily 12/16/2015 None diabetes mellitus Nutrition regular diet 12/16/2015 None diabetes mellitus Exercise minimal exercise 12/16/2015 None diabetes mellitus Quality non-insulin dependent 11/11/2015 None diabetes mellitus Quality non-insulin dependent 10/27/2015 None diabetes mellitus Glucose monitoring twice daily 10/27/2015 None diabetes mellitus Blood glucose levels greater than 120 10/27/2015 None diabetes mellitus Quality non-insulin dependent 10/13/2015 None diabetes mellitus Test results Pt checking blood glucose readings, did not bring results to clinic 10/13/2015 None diabetes mellitus Blood glucose levels greater than 120 10/13/2015 None diabetes mellitus Glucose monitoring twice daily 10/13/2015 None cough Location in the lung 10/05/2015 None cough Quality hacking 10/05/2015 None cough Quality productive 10/05/2015 None cough Onset and Resolution sudden in onset 10/05/2015 None cough Onset of Symptom 4 days ago 10/05/2015 None cough Limitation on Activities does not limit activities 10/05/2015 None cough Frequency of Episodes daily 10/05/2015 None cough Alleviating Factors inhaled medications 10/05/2015 None cough Pertinent Findings chest discomfort 10/05/2015 None cough Pertinent Findings hoarseness 10/05/2015 None cough Pertinent Findings nasal congestion 10/05/2015 None sinus congestion Onset and Resolution sudden in onset 10/05/2015 None sinus congestion Onset of Symptom 4 days ago 10/05/2015 None sinus congestion Pertinent Findings cough 10/05/2015 None sinus congestion Pertinent Findings fever 10/05/2015 None sinus congestion Pertinent Findings hoarseness 10/05/2015 None sinus congestion Location on both sides 10/05/2015 None sinus congestion Quality constant 10/05/2015 None sinus congestion Quality fullness 10/05/2015 None sinus congestion Quality pressure 10/05/2015 None sore throat Location on both sides 10/05/2015 None sore throat Quality aching 10/05/2015 None sore throat Quality dull 10/05/2015 None sore throat Quality constant 10/05/2015 None sore throat Quality scratchy 10/05/2015 None sore throat Onset and Resolution sudden in onset 10/05/2015 None sore throat Onset of Symptom 4 days ago 10/05/2015 None sore throat Limitation on Activities does not limit oral intake 10/05/2015 None sore throat Frequency of Episodes daily 10/05/2015 None sore throat Pertinent Findings cough 10/05/2015 None sore throat Pertinent Findings hoarseness 10/05/2015 None sore throat Pertinent Findings nasal congestion 10/05/2015 None earache Location both ears 10/05/2015 None earache Onset and Resolution sudden in onset 10/05/2015 None earache Onset of Symptom 4 days ago 10/05/2015 None fever Onset and Resolution sudden in onset 10/05/2015 None fever Onset of Symptom 4 days ago 10/05/2015 None fever Temperature 99 degrees 10/05/2015 None fever Frequency of Episodes daily 10/05/2015 None mole check Location-Extremities on the right leg 09/01/2015 None mole check Quality changing 09/01/2015 None mole check Color black 09/01/2015 None mole check Changing Moles changing color 09/01/2015 None mole check Onset and Resolution sudden in onset 09/01/2015 None mole check Onset of Symptom 2 days ago 09/01/2015 None mole check Pertinent Findings Denies itching 09/01/2015 None cough Location in the lung 08/20/2015 None cough Quality hacking 08/20/2015 None cough Quality productive 08/20/2015 None cough Onset and Resolution sudden in onset 08/20/2015 None cough Onset of Symptom 3 days ago 08/20/2015 None cough Frequency of Episodes daily 08/20/2015 None sinus congestion Location on both sides 08/20/2015 None sinus congestion Quality fullness 08/20/2015 None sinus congestion Quality pressure 08/20/2015 None sinus congestion Onset and Resolution sudden in onset 08/20/2015 None sore throat Location on both sides 08/20/2015 None sore throat Quality dull 08/20/2015 None sore throat Quality scratchy 08/20/2015 None sore throat Onset and Resolution sudden in onset 08/20/2015 None sore throat Onset of Symptom 3 days ago 08/20/2015 None sore throat Frequency of Episodes daily 08/20/2015 None earache Location both ears 08/20/2015 None earache Onset and Resolution gradual in onset 08/20/2015 None earache Onset of Symptom 3 days ago 08/20/2015 None chest congestion Onset and Resolution sudden in onset 08/20/2015 None chest congestion Onset of Symptom 3 days ago 08/20/2015 None shortness of breath Quality chest tightness 08/20/2015 None shortness of breath Quality breathlessness 08/20/2015 None shortness of breath Onset and Resolution sudden in onset 08/20/2015 None shortness of breath Onset of Symptom 3 days ago 08/20/2015 None shortness of breath Pertinent Findings chest discomfort 08/20/2015 None shortness of breath Pertinent Findings cough 08/20/2015 None shortness of breath Quality breathlessness 08/03/2015 None shortness of breath Quality labored breathing 08/03/2015 None shortness of breath Onset and Resolution ongoing 08/03/2015 None shortness of breath Onset of Symptom 1 years ago 08/03/2015 None shortness of breath Triggers activity 08/03/2015 None shortness of breath Triggers exercise 08/03/2015 None shortness of breath Alleviating Factors inhalers / nebulizer 08/03/2015 None shortness of breath Exacerbating Factors exertion 08/03/2015 None shortness of breath Alleviating Factors sitting down 08/03/2015 None shortness of breath Pertinent Findings chest discomfort 08/03/2015 None weight gain/obesity Location globally 08/03/2015 None weight gain/obesity Quality constant 08/03/2015 None weight gain/obesity Onset and Resolution gradual in onset 08/03/2015 None weight gain/obesity Onset of Symptom 1 years ago 08/03/2015 None weight gain/obesity Weight Status has gained 2 pounds in 3-6 weeks 08/03/2015 None weight gain/obesity Frequency of Episodes monthly 08/03/2015 None edema Onset and Resolution sudden in onset 08/03/2015 None edema Onset of Symptom 1 months ago 08/03/2015 None edema Location diffusely 08/03/2015 None edema Quality constant 08/03/2015 None edema Quality pitting 08/03/2015 None Advance Directives No Advance Directive data Encounters Encounter Performer Location Codes Date EST. PATIENT, LEVEL III Diagnosis: Pain in left foot[ICD10: M79.672] Diagnosis: Rash and other nonspecific skin eruption[ICD10: R21] Diagnosis: Candidiasis of vulva and vagina[ICD10: B37.3] Diagnosis: Localized edema[ICD10: R60.0] Diagnosis: Dyspnea, unspecified[ICD10: R06.00] Gloria Hess MD, [facility] CPT-4: 41147 06/07/2017 08110 EST. PATIENT, LEVEL III Diagnosis: Low back pain[ICD10: M54.5] Diagnosis: Sacroiliitis, not elsewhere classified[ICD10: M46.1] Diagnosis: Pain in left foot[ICD10: M79.672] Diagnosis: VACCIN FOR INFLUENZA[ICD10: Z23] Gloria Hess MD, [facility] CPT- 4: 86886 04/24/2017 62636 EST. PATIENT, LEVEL III Diagnosis: Acute suppurative otitis media without spontaneous rupture of ear drum, right ear[ICD10: H66.001] Diagnosis: Other allergic rhinitis[ICD10: J30.89] Gloria Hess MD, [facility] CPT-4: 88517 01/09/2017 70058 EST. PATIENT, LEVEL IV Diagnosis: Candidiasis of vulva and vagina[ICD10: B37.3] Diagnosis: Type 2 diabetes mellitus with hyperglycemia[ICD10: E11.65] Gloria Hess MD [facility] CPT-4: 66789 10/30/2016 50161 EST. PATIENT, LEVEL III Diagnosis: Candidiasis of vulva and vagina[ICD10: B37.3] Diagnosis: Type 2 diabetes mellitus with hyperglycemia[ICD10: E11.65] Gloria Hess MD, [facility] CPT-4: 04436 10/09/2016 97682 EST. PATIENT, LEVEL IV Diagnosis: Umbilical hernia without obstruction or gangrene[ICD10: K42.9] Gloria Hess MD [facility] CPT-4: 28701 09/12/2016 86100 EST. PATIENT, LEVEL III Diagnosis: Epigastric pain[ICD10: R10.13] Diagnosis: Candidiasis of vulva and vagina[ICD10: B37.3] Diagnosis: Type 2 diabetes mellitus with hyperglycemia[ICD10: E11.65] Gloria Hess MD, [facility] CPT-4: 95015 09/05/2016 09821 EST. PATIENT, LEVEL III Diagnosis: Acute laryngopharyngitis[ICD10: J06.0] Diagnosis: Other allergic rhinitis[ICD10: J30.89] Gloria Hess MD, [facility] CPT-4: 80978 06/16/2016 29290 EST. PATIENT, LEVEL III Diagnosis: Type 2 diabetes mellitus with hyperglycemia[ICD10: E11.65] Diagnosis: Other obesity due to excess calories[ICD10: E66.09] Gloria Hess MD, [facility] CPT-4: 23008 06/13/2016 91758 EST. PATIENT, LEVEL III Diagnosis: Type 2 diabetes mellitus with hyperglycemia[ICD10: E11.65] Diagnosis: Other obesity due to excess calories[ICD10: E66.09] Gloria Hess MD, [facility] CPT-4: 53914 05/19/2016 78430 EST. PATIENT, LEVEL III Diagnosis: Type 2 diabetes mellitus with hyperglycemia[ICD10: E11.65] Diagnosis: Other obesity due to excess calories[ICD10: E66.09] Gloria Hess MD [facility] CPT-4: 67960 05/08/2016 35334 EST. PATIENT, LEVEL III Diagnosis: Type 2 diabetes mellitus without complications[ICD10: E11.9] Gloria Hess MD [facility] CPT-4: 70379 05/05/2016 91058 EST. PATIENT, LEVEL III Diagnosis: Pain in right shoulder[ICD10: M25.511] Gloria Hess MD [facility] CPT-4: 71993 04/10/2016 78033 EST. PATIENT, LEVEL III Diagnosis: Pain in right shoulder[ICD10: M25.511] Diagnosis: Other muscle spasm[ICD10: M62.838] Diagnosis: Type 2 diabetes mellitus without complications[ICD10: E11.9] Gloria Hess MD [facility] CPT-4: 82117 04/06/2016 22774 EST. PATIENT, LEVEL IV Diagnosis: Acute bronchitis due to other specified organisms[ICD10: J20.8] Diagnosis: Other acute sinusitis[ICD10: J01.80] Diagnosis: Acne vulgaris[ICD10: L70.0] Diagnosis: Morbid (severe) obesity due to excess calories[ICD10: E66.01] Gloria Hess MD , [facility] CPT-4: 51375 03/08/2016 22639 EST. PATIENT, LEVEL IV Diagnosis: Other acute sinusitis[ICD10: J01.80] Diagnosis: Localized enlarged lymph nodes[ICD10: R59.0] Gloria Hess MD [facility] CPT-4: 09320 02/28/2016 29303 EST. PATIENT, LEVEL III Diagnosis: Type 2 diabetes mellitus without complications[ICD10: E11.9] Gloria Hess MD , [facility] CPT-4: 17943 01/18/2016 (08361) PREV VISIT EST AGE 40-64 Diagnosis: Encounter for gynecological examination (general) (routine) without abnormal findings[ICD10: Z01.419] Diagnosis: Excessive and frequent menstruation with irregular cycle[ICD10: N92.1 ] Gloria Hess MD, [facility] CPT-4: 58600 12/23/2015 00228 EST. PATIENT, LEVEL III Diagnosis: Type 2 diabetes mellitus without complications[ICD10: E11.9] Gloria Hess MD [facility] CPT-4: 44106 12/16/2015 62825 EST. PATIENT, LEVEL III Diagnosis: Type 2 diabetes mellitus without complications[ICD10: E11.9] Diagnosis: Other obesity due to excess calories[ICD10: E66.09] Gloria Hess MD, [facility] CPT-4: 25268 11/11/2015 89206 EST. PATIENT, LEVEL III Diagnosis: Type 2 diabetes mellitus without complications[ICD10: E11.9] Diagnosis: Other obesity due to excess calories[ICD10: E66.09] Gloria Hess MD, [facility] CPT-4: 63285 10/27/2015 77543 EST. PATIENT, LEVEL III Diagnosis: Type 2 diabetes mellitus without complications[ICD10: E11.9] Diagnosis: Other obesity due to excess calories[ICD10: E66.09] Diagnosis: Other insomnia[ICD10: G47.09] Gloria Hess MD, [facility] CPT-4 : 21037 10/13/2015 08306 EST. PATIENT, LEVEL IV Diagnosis: Acute recurrent maxillary sinusitis[ICD10: J01.01] Diagnosis: Allergic rhinitis due to pollen[ICD10: J30.1] Diagnosis: Other obesity due to excess calories[ICD10: E66.09] Gloria Hess MD, [facility] CPT-4: 77741 10/05/2015 23374 EST. PATIENT, LEVEL IV Diagnosis: Polycystic ovarian syndrome[ICD10: E28.2] Diagnosis: Other skin changes[ICD10: R23.8] Diagnosis: Other abnormal glucose[ICD10: R73.09] Gloria Hess MD, [facility] CPT-4: 17546 09/01/2015 41175 EST. PATIENT, LEVEL IV Diagnosis: Acute recurrent maxillary sinusitis[ICD10: J01.01] Diagnosis: Morbid (severe) obesity due to excess calories[ICD10: E66.01] Diagnosis: Essential (primary) hypertension[ICD10: I10] Diagnosis: Allergic rhinitis due to pollen[ICD10: J30.1] Gloria Hess MD, [facility] CPT-4: 42568 08/20/2015 (96631) OFFICE VISIT, NEW - LEVEL 4 Diagnosis: Essential (primary) hypertension[ICD10: I10] Diagnosis: Obstructive sleep apnea (adult) (pediatric)[ICD10: G47.33] Diagnosis: Other insomnia[ICD10: G47.09] Diagnosis: Snoring[ICD10: R06.83] Diagnosis: Morbid (severe) obesity due to excess calories[ICD10: E66.01] Gloria Hess MD , [facility] CPT-4: 99522 08/03/2015 Plan of Care Planned Activity Notes Codes Status Date Patient Education: Patient Medication Summary Completed 06/13/2017 Visit Plan: Rash - The patient was instructed to use the ointment as per RX. The patient is to call for any change in symptoms, increase in size of the lesion, increase in pain, worsening redness, warmth, discharge Edema/dyspnea - pt has been advised to elevate legs to prevent dependent edema, compression has been recommended to help to naturally decrease peripheral edema. Diuretic use has been discussed and pt has been instructed in appropriate use of such medication as necessary to further attempt to reduce peripheral edema. Left foot pain - ongoing - history of fracture - x-ray negative - will order MRI - pt is to to use RICE and NSAIDs PRN Yeast - will send RX 06/07/2017 Appointment: Gloria Scott WPtel[facility] [place] (15 min) Moderate 06/07/2017 Patient Education: Patient Medication Summary Completed 06/07/2017 Visit Plan: Low back pain- the patient was instructed in appropriate posture, need for weight loss to alleviate abdominal obesity that is worsening the patient's back pain.. The pt is to use prn antiinflammatories to manage acute pain. The patient is to call the office if the pain is worsening or does not improve. Left foot pain - pt is to use RICE - Rest, Ice, Compression, Elevation - will order MRI for ongoing foot pain. Joint Injection - Pt was given post - injection instructions. The pt has been advised to use anti-inflammatories post injection today, ice to the injected site, call if redness, warmth, or increased pain occurs at the site of injection. 04/24/2017 Appointment: Gloria Scott WPtel: [facility] [place] (30 min) Complex 04/24/2017 Patient Education: Patient Medication Summary Completed 04/24/2017 Appointment: Gloria Scott WPtel: [phone] [facility] (30 min) Complex 03/09/2017 Appointment: Gloria Scott WPtel: [phone] [facility] (30 min) Complex 02/13/2017 Visit Plan: Otitis Media - discussed the diagnosis with the patient, script sent electronically to the pharmacy for treatment of the infection. The disease course was discussed and the need to notify the clinic if symptoms do not improve or if they acutely worsen. Allergies - chronic - recommended pt to use allergy medication as prescribed. Pt has been counseled as to the appropriate use of the medication. Pt to call if allergy symptoms are not controlled with the medication. If using nasal spray, instructions as follows: Nasal spray- use twice daily, one spray per nostril twice daily, after 30 minutes, rinse out nose with saline spray.. Use opposite hand per nostril to spray in the nasal steroid allergy spray. 01/09/2017 Appointment: Gloria Scott WPtel: [phone] [facility] (10 min) Simple 01/09/2017 Patient Education: Patient Medication Summary Completed 01/09/2017 Patient Education: Obesity Completed 01/09/2017 Visit Plan: Vaginal candidiasis - will send RX - pt is to notify clinic if symptoms do not improve, if they worsen, or with any questions or concerns. Diabetes Mellitus - Uncontrolled - Will refer to sports official - I have recommended for the patient to have follow up labs prior to the next office visit. The patient has been instructed to continue with current medications as previously directed, continue with regular FSBS monitoring to assure continued control of diabetes. Pt to call for any acute concerns, complaints, or if the blood glucose readings are starting to become less controlled. I have recommended for the patient to follow more strictly to the diabetic diet as discussed in clinic to allow for greater blood glucose control. 10/30/2016 Patient Education: Patient Medication Summary Completed 10/30/2016 Patient Education: Obesity Completed 10/30/2016 Visit Plan: Vaginal candidiasis - will send RX - pt is to notify clinic if symptoms do not improve, if they worsen, or with any questions or concerns. Diabetes Mellitus - Uncontrolled - Will refer to sports official - I have recommended for the patient to have follow up labs prior to the next office visit. The patient has been instructed to continue with current medications as previously directed, continue with regular FSBS monitoring to assure continued control of diabetes. Pt to call for any acute concerns, complaints, or if the blood glucose readings are starting to become less controlled. I have recommended for the patient to follow more strictly to the diabetic diet as discussed in clinic to allow for greater blood glucose control. 10/09/2016 Appointment: Gloria Scott WPtel: [address] [facility] (30 min) Complex 10/09/2016 Patient Education: Patient Medication Summary Completed 10/09/2016 Patient Education: Obesity Completed 10/09/2016 Referral: Roni Roberts Referral Completed 09/18/2016 Care Plan: CT ABD & PELV W/CONTRAST LOINC : 56808-4 Pending 09/13/2016 Care Plan: Referral Order SNOMED-CT : 573928342 Pending 09/13/2016 Visit Plan: Ongoing abdominal pain/hernia - will send RX - will refer - pt is to notify clinic if symptoms do not improve, if they worsen, or with any questions or concerns. 09/12/2016 Appointment: Gloria Scott WPtel: [phone] [facility] (30 min) Complex 09/12/2016 Patient Education: Patient Medication Summary Completed 09/12/2016 Patient Education: Obesity Completed 09/12/2016 Care Plan: Referral Order SNOMED-CT : [id number] Pending 09/12/2016 Visit Plan: Ongoing abdominal/epigastric pain - pt states that it is getting increasingly worse - will check labs, order CT. Will refer to Dr. Roberts for possible EGD. Pt is to notify clinic if symptoms do not improve, if they worsen, or with any questions or concerns. Esophageal Reflux - the patient has been counseled against excessive intake of caffeine, spicy foods , peppermint, and cinnamon - all of which can exacerbate esophageal reflux. The patient is to take medications as prescribed and call the office if the symptoms are not improving. Vaginal yeast infection - will repeat diflucan - if symptoms do not improve, will do pelvic with wet prep. Diabetes Mellitus - Uncontrolled - per recent FSBS reports. I have recommended for the patient to have follow up labs prior to the next office visit. The patient has been instructed to continue with current medications as previously directed, continue with regular FSBS monitoring to assure continued control of diabetes. Pt to call for any acute concerns, complaints, or if the blood glucose readings are starting to become less controlled. I have recommended for the patient to follow more strictly to the diabetic diet as discussed in clinic to allow for greater blood glucose control. 09/05/2016 Appointment: Gloria Scott [facility]Ptel[facility] [phone] [facility] (30 min) Complex 09/05/2016 Patient Education: Patient Medication Summary Completed 09/05/2016 Visit Plan: URI - Pt advised to increase fluids, vitamin C. Discussed natural and expected course of this diagnosis and need to alert me if symptoms do not follow expected course, or if any worse. RX sent to patient' s pharmacy. Allergies - chronic - recommended pt to use allergy medication as prescribed. Pt has been counseled as to the appropriate use of the medication. Pt to call if allergy symptoms are not controlled with the medication. If using nasal spray, instructions as follows: Nasal spray- use twice daily, one spray per nostril twice daily, after 30 minutes, rinse out nose with saline spray.. Use opposite hand per nostril to spray in the nasal steroid allergy spray. 06/16/2016 Appointment: [facility]Ptel[facility] [phone] [facility] (10 min) Simple 06/16/2016 Patient Education: Patient Medication Summary Completed 06/16/2016 Patient Education: Obesity Completed 06/16/2016 Visit Plan: Diabetes Mellitus - Uncontrolled - per recent FSBS reports. I have recommended for the patient to have follow up labs prior to the next office visit. The patient has been instructed to continue with current medications as previously directed, continue with regular FSBS monitoring to assure continued control of diabetes. Pt to call for any acute concerns, complaints, or if the blood glucose readings are starting to become less controlled. I have recommended for the patient to follow more strictly to the diabetic diet as discussed in clinic to allow for greater blood glucose control. Obesity - chronic issue with this patient. The pt has been counseled about diet changes, calorie restriction, and need to exercise. Pt will RTC in one month for weight check. 06/13/2016 Appointment: Gloria Scott WPtel: [facility] (30 min) Complex 06/13/2016 Patient Education: Patient Medication Summary Completed 06/13/2016 Patient Education: Obesity Completed 06/13/2016 Appointment: Gloria Scott WPtel: [facility] (30 min) Complex 06/08/2016 Visit Plan: Diabetes Mellitus - Uncontrolled - per recent FSBS reports. I have recommended for the patient to have follow up labs prior to the next office visit. The patient has been instructed to continue with current medications as previously directed, continue with regular FSBS monitoring to assure continued control of diabetes. Pt to call for any acute concerns, complaints, or if the blood glucose readings are starting to become less controlled. I have recommended for the patient to follow more strictly to the diabetic diet as discussed in clinic to allow for greater blood glucose control. Obesity - chronic issue with this patient. The pt has been counseled about diet changes, calorie restriction, and need to exercise. Pt will RTC in one month for weight check. 05/19/2016 Appointment: Tamy Lugo WPtel: [phone] (30 min) Complex 05/19/2016 Patient Education: Patient Medication Summary Completed 05/19/2016 Patient Education: Obesity Completed 05/19/2016 Care Plan: BMI Above normal followup SELF-MGMT EDUC & TRAIN 1 PT Pending 2015 Visit Plan: Diabetes Mellitus - Uncontrolled - per recent FSBS reports. I have recommended for the patient to have follow up labs prior to the next office visit. The patient has been instructed to continue with current medications as previously directed, continue with regular FSBS monitoring to assure continued control of diabetes. Pt to call for any acute concerns, complaints, or if the blood glucose readings are starting to become less controlled. I have recommended for the patient to follow more strictly to the diabetic diet as discussed in clinic to allow for greater blood glucose control. Obesity - chronic issue with this patient. The pt has been counseled about diet changes, calorie restriction, and need to exercise. Pt will RTC in one month for weight check. 05/08/2016 Appointment: Gloria Scott WPtel: [facility] (15 min) Moderate 05/08/2016 Patient Education: Patient Medication Summary Completed 05/08/2016 Patient Education: Obesity Completed 05/08/2016 Visit Plan: Diabetes Mellitus - Uncontrolled - per recent FSBS reports. I have recommended for the patient to have follow up labs prior to the next office visit. The patient has been instructed to continue with current medications as previously directed, continue with regular FSBS monitoring to assure continued control of diabetes. Pt to call for any acute concerns, complaints, or if the blood glucose readings are starting to become less controlled. I have recommended for the patient to follow more strictly to the diabetic diet as discussed in clinic to allow for greater blood glucose control. Increase lantus to 25 units at night and 5 units in the morning. 05/05/2016 Appointment: Tamy Lugo WPtel: [phone] (15 min) Moderate 05/05/2016 Patient Education: Patient Medication Summary Completed 05/05/2016 Patient Education: Obesity Completed 05/05/2016 Care Plan: Comp Metabolic Pending 05/05/2016 Appointment: Jocelyn Hess WPtel: [facility] Surgical Procedure 04/17/2016 Appointment: Injection 04/13/2016 Patient Education: Patient Medication Summary Completed 04/13/2016 Visit Plan: Right shoulder pain - will refer to PT - The pt is to use prn antiinflammatories to manage acute pain. The patient is to call the office if the pain is worsening or does not improve. 04/10/2016 Appointment: Gloria Scott WPtel: [facility] (30 min) Complex 04/10/2016 Patient Education: Patient Medication Summary Completed 04/10/2016 Patient Education: Obesity Completed 04/10/2016 Visit Plan: Trigger Points - Injected trigger points today , pt given post-injection instructions, signs and symptoms for which to call the office. Pt to use heat to the muscles today, and take an anti-inflammatory today unless otherwise contraindicated by renal function or other disease process. Diabetes Mellitus - Uncontrolled - per recent FSBS reports. I have recommended for the patient to have follow up labs prior to the next office visit. The patient has been instructed to continue with current medications as previously directed, continue with regular FSBS monitoring to assure continued control of diabetes. Pt to call for any acute concerns, complaints, or if the blood glucose readings are starting to become less controlled. I have recommended for the patient to follow more strictly to the diabetic diet as discussed in clinic to allow for greater blood glucose control. 04/06/2016 Appointment: Gloria Scott WPtel: [facility] (15 min) Moderate 04/06/2016 Patient Education: Patient Medication Summary Completed 04/06/2016 Patient Education: Obesity Completed 04/06/2016 Appointment: Injection 03/30/2016 Patient Education: Patient Medication Summary Completed 03/30/2016 Visit Plan: Bronchitis - acute case of bronchitis identified. Pt has been given antibiotics, breathing treatments as appropriate, and pt has been instructed to call if symptoms are not improved, or if symptoms acutely worsen. Sinusitis - Pt has acute infection - pain in face, maxillary region, Pt informed to use decongestant, RX given to patient, sinus rinses also recommended. Call if symptoms do not show improvement. 03/08/2016 Patient Education: Patient Medication Summary Completed 03/08/2016 Patient Education: Obesity Completed 03/08/2016 Visit Plan: Sinusitis - Pt has acute infection - pain in face, maxillary region, Pt informed to use decongestant, RX given to patient, sinus rinses also recommended. Call if symptoms do not show improvement. Allergies - chronic - recommended pt to use allergy medication as prescribed. Pt has been counseled as to the appropriate use of the medication. Pt to call if allergy symptoms are not controlled with the medication. If using nasal spray , instructions as follows: Nasal spray- use twice daily, one spray per nostril twice daily, after 30 minutes, rinse out nose with saline spray.. Use opposite hand per nostril to spray in the nasal steroid allergy spray. Enlarged lymph node in the left arm - pt states it has been that way for the past 3 weeks - tender to palpation - approximately 1 - 1.5 cm to palpation - no skin changes, erythema, or edema noted - will order US 02/28/2016 [facility]ment[id number] ([facility] Complex 02/28/2016 Patient Education: Patient Medication Summary Completed 02/28/2016 Patient Education: Obesity Completed 02/28/2016 [facility]ment: [id number] ([facility] min) Moderate 01/31/2016 Visit Plan: Diabetes Mellitus - Uncontrolled - per recent FSBS reports. Pt recently switched to bydureon, states that it is not working - continue medication at this time - continue to monitor blood sugars - notify clinic if symptoms do improve or with any conerns. I have recommended for the patient to have follow up labs prior to the next office visit. The patient has been instructed to continue with current medications as previously directed, continue with regular FSBS monitoring to assure continued control of diabetes. Pt to call for any acute concerns, complaints, or if the blood glucose readings are starting to become less controlled. I have recommended for the patient to follow more strictly to the diabetic diet as discussed in clinic to allow for greater blood glucose control. 01/18/2016 Patient Education: Patient Medication Summary Completed 01/18/2016 Patient Education: Obesity Completed 01/18/2016 Care Plan: BMI Above normal followup SELF-MGMT EDUC & TRAIN 1 PT Pending 2015 Visit Plan: Well Adult Female - exam completed. Pap and gc/ chlamydia and breast exam completed. Pt will be called with results of her testing. She was advised to continue with yearly annual exams. Safe sex practices discussed during office visit today. Call if any abnormal gynecologic issues during the next year, otherwise, RTC yearly or prn. 12/23/2015 Visit Plan: Well Adult Female - exam completed. Pap and gc/ chlamydia and breast exam completed. Pt will be called with results of her testing. She was advised to continue with yearly annual exams. Safe sex practices discussed during office visit today. Call if any abnormal gynecologic issues during the next year, otherwise, RTC yearly or prn. 12/23/2015 [facility]ment: [id number] [facility] 12/23/2015 Patient Education: Patient Medication Summary Completed 12/23/2015 Care Plan: PAP Pending 12/23/2015 Visit Plan: Diabetes Mellitus - I have recommended for the patient to have follow up labs prior to the next office visit. The patient has been instructed to continue with current medications as previously directed, continue with regular FSBS monitoring to assure continued control of diabetes. Pt to call for any acute concerns, complaints, or if the blood glucose readings are starting to become less controlled. I have recommended for the patient to follow more strictly to the diabetic diet as discussed in clinic to allow for greater blood glucose control. Obesity - chronic issue with this patient. The pt has been counseled about diet changes, calorie restriction, and need to exercise. Pt will RTC in one month for weight check. 12/16/2015 Visit Plan: Diabetes Mellitus - I have recommended for the patient to have follow up labs prior to the next office visit. The patient has been instructed to continue with current medications as previously directed, continue with regular FSBS monitoring to assure continued control of diabetes. Pt to call for any acute concerns, complaints, or if the blood glucose readings are starting to become less controlled. I have recommended for the patient to follow more strictly to the diabetic diet as discussed in clinic to allow for greater blood glucose control. 12/16/2015 Patient Education: Patient Medication Summary Completed 12/16/2015 Patient Education: Obesity Completed 12/16/2015 Visit Plan: Diabetes Mellitus - Improved - The patient has been instructed to continue with current medications as previously directed, continue with regular FSBS monitoring to assure continued control of diabetes. Pt to call for any acute concerns, complaints, or if the blood glucose readings are starting to become less controlled. I have recommended for the patient to follow more strictly to the diabetic diet as discussed in clinic to allow for greater blood glucose control. Obesity - BMI 49 - The pt has been counseled about diet changes, calorie restriction, and need to exercise. Pt will RTC in one month for weight check. 11/11/2015 Patient Education: Patient Medication Summary Completed 11/11/2015 Patient Education: Obesity Completed 11/11/2015 Visit Plan: Diabetes Mellitus - Uncontrolled - I have recommended for the patient to have follow up labs prior to the next office visit. The patient has been instructed to continue with current medications as previously directed, continue with regular FSBS monitoring to assure continued control of diabetes. Pt to call for any acute concerns, complaints, or if the blood glucose readings are starting to become less controlled. I have recommended for the patient to follow more strictly to the diabetic diet as discussed in clinic to allow for greater blood glucose control. Obesity - BMI 49 - The pt has been counseled about diet changes, calorie restriction, and need to exercise. Pt will RTC in one month for weight check. 10/27/2015 Patient Education: Patient Medication Summary Completed 10/27/2015 Patient Education: Obesity Completed 10/27/2015 Care Plan: BMI Above normal followup SELF-MGMT EDUC & TRAIN 1 PT Pending 2015 Visit Plan: Diabetes Mellitus - Uncontrolled - I have recommended for the patient to have follow up labs prior to the next office visit. The patient has been instructed to continue with current medications as previously directed, continue with regular FSBS monitoring to assure continued control of diabetes. Pt to call for any acute concerns, complaints, or if the blood glucose readings are starting to become less controlled. I have recommended for the patient to follow more strictly to the diabetic diet as discussed in clinic to allow for greater blood glucose control. Insomnia - Pt has been advised to increase the light in the house during the day, and start dimming the lights during the evening hours. Pt has been advised to cut out caffeine after 5pm. Daytime napping worsens night time insomnia. Obesity - BMI 50 - The pt has been counseled about diet changes, calorie restriction, and need to exercise. Pt will RTC in one month for weight check. 10/13/2015 Patient Education: Patient Medication Summary Completed 10/13/2015 Patient Education: Obesity Completed 10/13/2015 Care Plan: BMI Above normal followup SELF-MGMT EDUC & TRAIN 1 PT Pending 2015 Care Plan: BMI Above normal followup SELF-MGMT EDUC & TRAIN 1 PT Pending 2015 Visit Plan: Sinusitis - Pt has acute infection - pain in face, maxillary region, Pt informed to use decongestant, RX given to patient, sinus rinses also recommended. Call if symptoms do not show improvement. Allergies - chronic - recommended pt to use allergy medication as prescribed. Pt has been counseled as to the appropriate use of the medication. Pt to call if allergy symptoms are not controlled with the medication. If using nasal spray , instructions as follows: Nasal spray- use twice daily, one spray per nostril twice daily, after 30 minutes, rinse out nose with saline spray.. Use opposite hand per nostril to spray in the nasal steroid allergy spray. Hypertension - well controlled - continue with current medications, continue with no added salt diet. Pt has been encouraged to exercise daily. The pt has been advised to call the office if there are any acute concerns about change in blood pressure readings at home. BMI 51 - The pt has been counseled about diet changes, calorie restriction, and need to exercise. Pt will RTC for weight check. Invokamet is causing stomach cramps and diarrhea - will decrease dose, pt is to notify clinic if symptoms do not improve, or with any concerns 10/05/2015 Patient Education: Patient Medication Summary Completed 10/05/2015 Patient Education: Obesity Completed 10/05/2015 Visit Plan: PCOS and skin changes - pt currently on Metformin, but states that it is causing some GI upset and diarrhea - will change to Invokamet, will refer to Dr. [facility]. Will have pt repeat her liver enzymes on 09/09/15. Will have pt recheck a Hgb A1C after 3 months of being on Invokamet. 09/01/2015 Appointment: (30 min) Complex 09/01/2015 Patient Education: Patient Medication Summary Completed 09/01/2015 Patient Education: Obesity Completed 09/01/2015 Visit Plan: Sinusitis - Pt has acute infection - pain in face, maxillary region, Pt informed to use decongestant, RX given to patient, sinus rinses also recommended. Call if symptoms do not show improvement. Allergies - chronic - recommended pt to use allergy medication as prescribed. Pt has been counseled as to the appropriate use of the medication. Pt to call if allergy symptoms are not controlled with the medication. If using nasal spray , instructions as follows: Nasal spray- use twice daily, one spray per nostril twice daily, after 30 minutes, rinse out nose with saline spray.. Use opposite hand per nostril to spray in the nasal steroid allergy spray. Hypertension - The patient has been counseled to cut back on salt in diet for a no added salt diet, low fat diet, start an exercise program with low weight bearing exercises and higher aerobic activity for heart health. The patient is to check blood pressure readings as an outpatient and either fax, call, or email the readings to the office next week for practitioner to review. The pt is to call for acute concerns. Obesity - chronic issue with this patient. The pt has been counseled about diet changes, calorie restriction, and need to exercise. Pt will RTC in one month for weight check. 08/20/2015 Appointment: (30 min) Complex 08/20/2015 Patient Education: Patient Medication Summary Completed 08/20/2015 Patient Education: Hypertension Completed 08/20/2015 Patient Education: Patient Medication Summary Completed 08/13/2015 Care Plan: %Hba1C ADD TO BLOOD IN THE LAB. [facility] : [id number] Pending 08/13/2015 Visit Plan: Hypertension - uncontrolled - the patient's medications have been modified as documented in the visit note. The patient has been counseled to cut back on salt in diet for a no added salt diet, low fat diet, start an exercise program with low weight bearing exercises and higher aerobic activity for heart health. The patient is to check blood pressure readings as an outpatient and either fax, call, or email the readings to the office next week for practitioner to review. The pt is to call for acute concerns. Obesity - chronic issue with this patient. The pt has been counseled about diet changes, calorie restriction, and need to exercise. Pt will RTC in one month for weight check. Sleep Apnea - will order sleep study. Edema - pt has been advised to elevate legs to prevent dependent edema, compression has been recommended to help to naturally decrease peripheral edema. Diuretic use has been discussed and pt has been instructed in appropriate use of such medication as necessary to further attempt to reduce peripheral edema. 08/03/2015 Appointment: New Patient 08/03/2015 Patient Education: Patient Medication Summary Completed 08/03/2015 Patient Education: Hypertension Completed 08/03/2015 Referral: Roni Roberts Referral Completed Referral: Roni Roberts Referral Initiated Instructions Comment . Diabetes Mellitus - Uncontrolled - per recent FSBS reports. Pt recently switched to bydureon, states that it is not working - continue medication at this time - continue to monitor blood sugars - notify clinic if symptoms do improve or with any conerns. I have recommended for the patient to have follow up labs prior to the next office visit. The patient has been instructed to continue with current medications as previously directed, continue with regular FSBS monitoring to assure continued control of diabetes. Pt to call for any acute concerns, complaints, or if the blood glucose readings are starting to become less controlled. I have recommended for the patient to follow more strictly to the diabetic diet as discussed in clinic to allow for greater blood glucose control. . URI - Pt advised to increase fluids, vitamin C. Discussed natural and expected course of this diagnosis and need to alert me if symptoms do not follow expected course, or if any worse. RX sent to patient's pharmacy. Allergies - chronic - recommended pt to use allergy medication as prescribed. Pt has been counseled as to the appropriate use of the medication. Pt to call if allergy symptoms are not controlled with the medication. If using nasal spray, instructions as follows: Nasal spray- use twice daily, one spray per nostril twice daily, after 30 minutes, rinse out nose with saline spray.. Use opposite hand per nostril to spray in the nasal steroid allergy spray. . Sinusitis - Pt has acute infection - pain in face, maxillary region, Pt informed to use decongestant, RX given to patient, sinus rinses also recommended. Call if symptoms do not show improvement. Allergies - chronic - recommended pt to use allergy medication as prescribed. Pt has been counseled as to the appropriate use of the medication. Pt to call if allergy symptoms are not controlled with the medication. If using nasal spray, instructions as follows: Nasal spray- use twice daily, one spray per nostril twice daily, after 30 minutes, rinse out nose with saline spray.. Use opposite hand per nostril to spray in the nasal steroid allergy spray. Hypertension - well controlled - continue with current medications, continue with no added salt diet. Pt has been encouraged to exercise daily. The pt has been advised to call the office if there are any acute concerns about change in blood pressure readings at home. BMI 51 - The pt has been counseled about diet changes, calorie restriction, and need to exercise. Pt will RTC for weight check. Invokamet is causing stomach cramps and diarrhea - will decrease dose, pt is to notify clinic if symptoms do not improve, or with any concerns . Sinusitis - Pt has acute infection - pain in face, maxillary region, Pt informed to use decongestant, RX given to patient, sinus rinses also recommended. Call if symptoms do not show improvement. Allergies - chronic - recommended pt to use allergy medication as prescribed. Pt has been counseled as to the appropriate use of the medication. Pt to call if allergy symptoms are not controlled with the medication. If using nasal spray, instructions as follows: Nasal spray- use twice daily, one spray per nostril twice daily, after 30 minutes, rinse out nose with saline spray.. Use opposite hand per nostril to spray in the nasal steroid allergy spray. Enlarged lymph node in the left arm - pt states it has been that way for the past 3 weeks - tender to palpation - approximately 1 - 1.5 cm to palpation - no skin changes, erythema, or edema noted - will order US . Ongoing abdominal/epigastric pain - pt states that it is getting increasingly worse - will check labs, order CT. Will refer to Dr. Roberts for possible EGD. Pt is to notify clinic if symptoms do not improve, if they worsen, or with any questions or concerns. Esophageal Reflux - the patient has been counseled against excessive intake of caffeine, spicy foods, peppermint, and cinnamon - all of which can exacerbate esophageal reflux. The patient is to take medications as prescribed and call the office if the symptoms are not improving. Vaginal yeast infection - will repeat diflucan - if symptoms do not improve, will do pelvic with wet prep. Diabetes Mellitus - Uncontrolled - per recent FSBS reports. I have recommended for the patient to have follow up labs prior to the next office visit. The patient has been instructed to continue with current medications as previously directed, continue with regular FSBS monitoring to assure continued control of diabetes. Pt to call for any acute concerns, complaints, or if the blood glucose readings are starting to become less controlled. I have recommended for the patient to follow more strictly to the diabetic diet as discussed in clinic to allow for greater blood glucose control. Pt has been advised to increase the light in the house during the day, and start dimming the lights during the evening hours. Pt has been advised to cut out caffeine after 5pm. Daytime napping worsens night time insomnia. . Diabetes Mellitus - Uncontrolled - I have recommended for the patient to have follow up labs prior to the next office visit. The patient has been instructed to continue with current medications as previously directed, continue with regular FSBS monitoring to assure continued control of diabetes. Pt to call for any acute concerns, complaints, or if the blood glucose readings are starting to become less controlled. I have recommended for the patient to follow more strictly to the diabetic diet as discussed in clinic to allow for greater blood glucose control. Insomnia - Pt has been advised to increase the light in the house during the day , and start dimming the lights during the evening hours. Pt has been advised to cut out caffeine after 5pm. Daytime napping worsens night time insomnia. Obesity - BMI 50 - The pt has been counseled about diet changes, calorie restriction, and need to exercise. Pt will RTC in one month for weight check. MRI - left foot - ongoing history of fx - raymundo if needed steroid cream rash flovent and xopenex - lungs lasix 20mg daily x 3 days and potassium 10 meq daily x 3 YURI hose Gladys over the counter . Rash - The patient was instructed to use the ointment as per RX. The patient is to call for any change in symptoms, increase in size of the lesion, increase in pain, worsening redness, warmth, discharge Edema/dyspnea - pt has been advised to elevate legs to prevent dependent edema, compression has been recommended to help to naturally decrease peripheral edema. Diuretic use has been discussed and pt has been instructed in appropriate use of such medication as necessary to further attempt to reduce peripheral edema. Left foot pain - ongoing - history of fracture - x-ray negative - will order MRI - pt is to to use RICE and NSAIDs PRN Yeast - will send RX Will check fasting labs, will send for extrended release metoprolol and bumex as needed. Will schedule sleep study. Compression stockings during the day and elevated feet while sitting. cut back on salt in diet for a no added salt diet, low fat diet, start an exercise program with low weight bearing exercises and higher aerobic activity for heart health. . Hypertension - uncontrolled - the patient's medications have been modified as documented in the visit note. The patient has been counseled to cut back on salt in diet for a no added salt diet, low fat diet, start an exercise program with low weight bearing exercises and higher aerobic activity for heart health. The patient is to check blood pressure readings as an outpatient and either fax , call, or email the readings to the office next week for practitioner to review. The pt is to call for acute concerns. Obesity - chronic issue with this patient. The pt has been counseled about diet changes, calorie restriction, and need to exercise. Pt will RTC in one month for weight check. Sleep Apnea - will order sleep study. Edema - pt has been advised to elevate legs to prevent dependent edema, compression has been recommended to help to naturally decrease peripheral edema. Diuretic use has been discussed and pt has been instructed in appropriate use of such medication as necessary to further attempt to reduce peripheral edema. . Vaginal candidiasis - will send RX - pt is to notify clinic if symptoms do not improve, if they worsen, or with any questions or concerns. Diabetes Mellitus - Uncontrolled - Will refer to sports official - I have recommended for the patient to have follow up labs prior to the next office visit. The patient has been instructed to continue with current medications as previously directed, continue with regular FSBS monitoring to assure continued control of diabetes. Pt to call for any acute concerns, complaints, or if the blood glucose readings are starting to become less controlled. I have recommended for the patient to follow more strictly to the diabetic diet as discussed in clinic to allow for greater blood glucose control. . Diabetes Mellitus - Improved - The patient has been instructed to continue with current medications as previously directed, continue with regular FSBS monitoring to assure continued control of diabetes. Pt to call for any acute concerns, complaints, or if the blood glucose readings are starting to become less controlled. I have recommended for the patient to follow more strictly to the diabetic diet as discussed in clinic to allow for greater blood glucose control. Obesity - BMI 49 - The pt has been counseled about diet changes, calorie restriction, and need to exercise. Pt will RTC in one month for weight check. . Diabetes Mellitus - I have recommended for the patient to have follow up labs prior to the next office visit. The patient has been instructed to continue with current medications as previously directed, continue with regular FSBS monitoring to assure continued control of diabetes. Pt to call for any acute concerns, complaints, or if the blood glucose readings are starting to become less controlled. I have recommended for the patient to follow more strictly to the diabetic diet as discussed in clinic to allow for greater blood glucose control. Obesity - chronic issue with this patient. The pt has been counseled about diet changes, calorie restriction, and need to exercise. Pt will RTC in one month for weight check. . Diabetes Mellitus - I have recommended for the patient to have follow up labs prior to the next office visit. The patient has been instructed to continue with current medications as previously directed, continue with regular FSBS monitoring to assure continued control of diabetes. Pt to call for any acute concerns, complaints, or if the blood glucose readings are starting to become less controlled. I have recommended for the patient to follow more strictly to the diabetic diet as discussed in clinic to allow for greater blood glucose control. . Vaginal candidiasis - will send RX - pt is to notify clinic if symptoms do not improve, if they worsen, or with any questions or concerns. Diabetes Mellitus - Uncontrolled - Will refer to sports official - I have recommended for the patient to have follow up labs prior to the next office visit. The patient has been instructed to continue with current medications as previously directed, continue with regular FSBS monitoring to assure continued control of diabetes. Pt to call for any acute concerns, complaints, or if the blood glucose readings are starting to become less controlled. I have recommended for the patient to follow more strictly to the diabetic diet as discussed in clinic to allow for greater blood glucose control. . Diabetes Mellitus - Uncontrolled - per recent FSBS reports. I have recommended for the patient to have follow up labs prior to the next office visit. The patient has been instructed to continue with current medications as previously directed, continue with regular FSBS monitoring to assure continued control of diabetes. Pt to call for any acute concerns, complaints, or if the blood glucose readings are starting to become less controlled. I have recommended for the patient to follow more strictly to the diabetic diet as discussed in clinic to allow for greater blood glucose control. Obesity - chronic issue with this patient. The pt has been counseled about diet changes, calorie restriction, and need to exercise. Pt will RTC in one month for weight check. . Sinusitis - Pt has acute infection - pain in face, maxillary region, Pt informed to use decongestant, RX given to patient, sinus rinses also recommended. Call if symptoms do not show improvement. Allergies - chronic - recommended pt to use allergy medication as prescribed. Pt has been counseled as to the appropriate use of the medication. Pt to call if allergy symptoms are not controlled with the medication. If using nasal spray, instructions as follows: Nasal spray- use twice daily, one spray per nostril twice daily, after 30 minutes, rinse out nose with saline spray.. Use opposite hand per nostril to spray in the nasal steroid allergy spray. Hypertension - The patient has been counseled to cut back on salt in diet for a no added salt diet, low fat diet, start an exercise program with low weight bearing exercises and higher aerobic activity for heart health. The patient is to check blood pressure readings as an outpatient and either fax , call, or email the readings to the office next week for practitioner to review. The pt is to call for acute concerns. Obesity - chronic issue with this patient. The pt has been counseled about diet changes, calorie restriction, and need to exercise. Pt will RTC in one month for weight check. . Right shoulder pain - will refer to PT - The pt is to use prn antiinflammatories to manage acute pain. The patient is to call the office if the pain is worsening or does not improve. . Diabetes Mellitus - Uncontrolled - per recent FSBS reports. I have recommended for the patient to have follow up labs prior to the next office visit. The patient has been instructed to continue with current medications as previously directed, continue with regular FSBS monitoring to assure continued control of diabetes. Pt to call for any acute concerns, complaints, or if the blood glucose readings are starting to become less controlled. I have recommended for the patient to follow more strictly to the diabetic diet as discussed in clinic to allow for greater blood glucose control. Obesity - chronic issue with this patient. The pt has been counseled about diet changes, calorie restriction, and need to exercise. Pt will RTC in one month for weight check. . PCOS and skin changes - pt currently on Metformin, but states that it is causing some GI upset and diarrhea - will change to Invokamet , will refer to Dr. [facility]. Will have pt repeat her liver enzymes on 09/09/15. Will have pt recheck a Hgb A1C after 3 months of being on Invokamet. . Diabetes Mellitus - Uncontrolled - per recent FSBS reports. I have recommended for the patient to have follow up labs prior to the next office visit. The patient has been instructed to continue with current medications as previously directed, continue with regular FSBS monitoring to assure continued control of diabetes. Pt to call for any acute concerns, complaints, or if the blood glucose readings are starting to become less controlled. I have recommended for the patient to follow more strictly to the diabetic diet as discussed in clinic to allow for greater blood glucose control. Increase lantus to 25 units at night and 5 units in the morning. . Diabetes Mellitus - Uncontrolled - I have recommended for the patient to have follow up labs prior to the next office visit. The patient has been instructed to continue with current medications as previously directed, continue with regular FSBS monitoring to assure continued control of diabetes. Pt to call for any acute concerns, complaints, or if the blood glucose readings are starting to become less controlled. I have recommended for the patient to follow more strictly to the diabetic diet as discussed in clinic to allow for greater blood glucose control. Obesity - BMI 49 - The pt has been counseled about diet changes, calorie restriction, and need to exercise. Pt will RTC in one month for weight check. . Diabetes Mellitus - Uncontrolled - per recent FSBS reports. I have recommended for the patient to have follow up labs prior to the next office visit. The patient has been instructed to continue with current medications as previously directed, continue with regular FSBS monitoring to assure continued control of diabetes. Pt to call for any acute concerns, complaints, or if the blood glucose readings are starting to become less controlled. I have recommended for the patient to follow more strictly to the diabetic diet as discussed in clinic to allow for greater blood glucose control. Obesity - chronic issue with this patient. The pt has been counseled about diet changes, calorie restriction, and need to exercise. Pt will RTC in one month for weight check. . Well Adult Female - exam completed. Pap and gc/ chlamydia and breast exam completed. Pt will be called with results of her testing. She was advised to continue with yearly annual exams. Safe sex practices discussed during office visit today. Call if any abnormal gynecologic issues during the next year, otherwise, RTC yearly or prn. . Well Adult Female - exam completed. Pap and gc/ chlamydia and breast exam completed. Pt will be called with results of her testing. She was advised to continue with yearly annual exams. Safe sex practices discussed during office visit today. Call if any abnormal gynecologic issues during the next year, otherwise, RTC yearly or prn. . Ongoing abdominal pain/hernia - will send RX - will refer - pt is to notify clinic if symptoms do not improve, if they worsen, or with any questions or concerns. Continue ibuprofen 600mg - 800mg 3 times a day kellie wrap to the ankle - will order MRI Shots for SI Joints today - if not improvement let me know and I will send some prednisone. . Low back pain- the patient was instructed in appropriate posture, need for weight loss to alleviate abdominal obesity that is worsening the patient's back pain.. The pt is to use prn antiinflammatories to manage acute pain. The patient is to call the office if the pain is worsening or does not improve. Left foot pain - pt is to use RICE - Rest, Ice, Compression, Elevation - will order MRI for ongoing foot pain. Joint Injection - Pt was given post - injection instructions. The pt has been advised to use anti-inflammatories post injection today, ice to the injected site, call if redness, warmth, or increased pain occurs at the site of injection. . Trigger Points - Injected trigger points today, pt given post-injection instructions, signs and symptoms for which to call the office. Pt to use heat to the muscles today, and take an anti-inflammatory today unless otherwise contraindicated by renal function or other disease process. Diabetes Mellitus - Uncontrolled - per recent FSBS reports. I have recommended for the patient to have follow up labs prior to the next office visit. The patient has been instructed to continue with current medications as previously directed, continue with regular FSBS monitoring to assure continued control of diabetes. Pt to call for any acute concerns, complaints, or if the blood glucose readings are starting to become less controlled. I have recommended for the patient to follow more strictly to the diabetic diet as discussed in clinic to allow for greater blood glucose control. . Otitis Media - discussed the diagnosis with the patient, script sent electronically to the pharmacy for treatment of the infection. The disease course was discussed and the need to notify the clinic if symptoms do not improve or if they acutely worsen. Allergies - chronic - recommended pt to use allergy medication as prescribed. Pt has been counseled as to the appropriate use of the medication. Pt to call if allergy symptoms are not controlled with the medication. If using nasal spray, instructions as follows: Nasal spray- use twice daily, one spray per nostril twice daily, after 30 minutes, rinse out nose with saline spray.. Use opposite hand per nostril to spray in the nasal steroid allergy spray. . Bronchitis - acute case of bronchitis identified. Pt has been given antibiotics, breathing treatments as appropriate, and pt has been instructed to call if symptoms are not improved, or if symptoms acutely worsen. Sinusitis - Pt has acute infection - pain in face, maxillary region, Pt informed to use decongestant, RX given to patient, sinus rinses also recommended. Call if symptoms do not show improvement.
--- OUTSIDE RECORDS SUMMARY | 2017-11-07 20:24 | XMS REPORT | Continuity of Care Document ---
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 APRN Ot K42.9 UMBILICAL HERNIA WITHOUT OBSTRUCTION OR 07/27/2017 FAHAD ALARCON APRN Ot K76.0 FATTY (CHANGE OF) LIVER, NOT ELSEWHERE C 07/27/2017 FAHAD ALARCON APRN Ot R16.0 HEPATOMEGALY, NOT ELSEWHERE CLASSIFIED 07/27/2017 FAHAD ALARCON APRN Ot R59.0 LOCALIZED ENLARGED LYMPH NODES 07/27/2017 WILLY CROCKER MD Ot K20.9 ESOPHAGITIS, UNSPECIFIED 07/27/2017 WILLY CROCKER MD, Ot K25.9 GASTRIC ULCER, UNSP ACUTE OR CHRONIC, 07/27/2017 CHIDI OROZCO DO Ot R19.09 OTHER INTRA-ABDOMINAL AND PELVIC SWELLIN 07/27/2017 CHIDI OROZCO DO Ot Z12.31 ENCNTR SCREEN MAMMOGRAM FOR MALIGNANT NE 07/27/2017 FAHAD ALARCON APRN Ot E11.65 TYPE 2 DIABETES MELLITUS WITH HYPERGLYCE 07/27/2017 ANCELMO CRAIG APRN Ot M25.572 PAIN IN LEFT ANKLE AND JOINTS OF LEFT FO 07/27/2017 CARLA GIORDANO Ot D72.829 ELEVATED WHITE BLOOD CELL COUNT, UNSPECI 07/27/2017 CARLA GIORDANO Ot E11.9 TYPE 2 DIABETES MELLITUS WITHOUT COMPLIC 07/27/2017 CARLA GIORDANO Ot E28.2 POLYCYSTIC OVARIAN SYNDROME 07/27/2017 CARLA GIORDANO Ot I10 ESSENTIAL (PRIMARY) HYPERTENSION 07/27/2017 CARLA GIORDANO Ot K29.70 GASTRITIS, UNSPECIFIED, WITHOUT BLEEDING 07/27/2017 CARLA GIORDANO Ot M15.0 PRIMARY GENERALIZED (OSTEO)ARTHRITIS 07/27/2017 CARLA GIORDANO Ot R74.0 NONSPEC ELEV OF LEVELS OF TRANSAMNS LA 07/27/2017 CARLA GIORDANO Ot Z79.4 VARITYPE OPERATOR (CURRENT) USE OF INSULIN 07/27/2017 CARLA GIORDANO Dell Ot Z79.899 OTHER VARITYPE OPERATOR (CURRENT) DRUG THERAPY 07/27/2017 FAHAD ALARCON APRN Ot M66.872 SPONTANEOUS RUPTURE OF OTHER TENDONS, LE 07/27/2017 FAHAD ALARCON APRN Ot M71.572 OTH BURSITIS, NOT ELSEWHERE CLASSIFIED, 07/27/2017 FAHAD ALARCON APRN Ot M76.62 ACHILLES TENDINITIS, LEFT LEG 07/27/2017 FAHAD ALARCON APRN Ot M89.8X7 OTHER SPECIFIED DISORDERS OF BONE, ANKLE 08/23/2017 Ot 845.09 SPRAIN OF ANKLE NEC 08/23/2017 Ot E000.8 OTHER EXTERNAL CAUSE STATUS 08/23/2017 Ot E928.9 ACCIDENT NOS 08/23/2017 ALEXANDRO MENDOZA DO Ot 787.3 FLATUL/ERUCTAT/GAS PAIN 08/23/2017 ALEXANDRO MENDOZA DO Ot 789.01 ABDOMINAL PAIN, RIGHT UPPER QUADRANT 08/23/2017 KATHARINA MENDOZA [employer] Ot 240.9 GOITER NOS 08/23/2017 KATHARINA MENDOZA [employer] Ot 256.4 POLYCYSTIC OVARIES 08/23/2017 KATHARINA MENDOZA [employer] Ot 268.9 VITAMIN D DEFICIENCY NOS 08/23/2017 KATHARINA MENDOZA [employer] Ot 626.0 ABSENCE OF MENSTRUATION 08/23/2017 KATHARINA MENDOZA [employer] Ot 704.1 HIRSUTISM 08/23/2017 KATHARINA MENDOZA [employer] Ot 719.40 JOINT PAIN-UNSPEC 08/23/2017 KATHARINA MENDOZA [employer] Ot 780.52 INSOMNIA, UNSPECIFIED 08/23/2017 KATHARINA MENDOZA [employer] Ot 782.3 EDEMA 08/23/2017 OBI THOMASON, WILLY Castillo Ot V72.84 EXAM PRE-OPERATIVE NOS Procedures Code [place] [address] MRI EXTREMITY JOINT, LOWER LEFT, W/O CONTRAST 06/14/2012 51.23 LAPAROSCOPIC CHOLECYSTECTOMY 11/07/2012 04602 XRAY CHEST 2 VIEW 11/12/2012 56771 CMP 11/19/2012 17387 LIPID PANEL 11/19/2012 52080 A1C (RML) 11/19/2012 43855 TSH 11/19/2012 87735 CBC 11/19/2012 98011 PULMONARY FUNCTION TEST (IN- HOUSE) 11/19/2012 Willy Brown 12/20/2012 Results Test Result Range Capillary blood glucose measurement by glucometer (mass/volume) - 05/06/16 14: 20 Capillary blood glucose measurement by glucometer (mass/volume) 427 mg/dL 70-110 Complete blood count (CBC) with automated white blood cell (WBC) differential - 05/06/16 14:36 Blood leukocytes automated count (number/volume) 12.2 10*3/uL 4.3-11.0 Blood erythrocytes automated count (number/volume) 4.81 10*6/uL 4.35-5.85 Venous blood hemoglobin measurement (mass/volume) 14.5 g/dL 11.5-16.0 Blood hematocrit (volume fraction) 43 % 35-52 Automated erythrocyte mean corpuscular volume 90 [foz_us] 80-99 Automated erythrocyte mean corpuscular hemoglobin (mass per erythrocyte) 30 pg 25-34 Automated erythrocyte mean corpuscular hemoglobin concentration measurement ( mass/volume) 33 g/dL 32-36 Automated erythrocyte distribution width ratio 13.9 % 10.0-14.5 Automated blood platelet count (count/volume) 322 10*3/uL 130-400 Automated blood platelet mean volume measurement 11.0 [foz_us] 7.4-10.4 Automated blood neutrophils/100 leukocytes 73 % 42-75 Automated blood lymphocytes/100 leukocytes 22 % 12-44 Blood monocytes/100 leukocytes 4 % 0-12 Automated blood eosinophils/100 leukocytes 1 % 0-10 Automated blood basophils/100 leukocytes 0 % 0-10 Blood neutrophils automated count (number/volume) 8.9 10*3 1.8-7.8 Blood lymphocytes automated count (number/volume) 2.6 10*3 1.0-4.0 Blood monocytes automated count (number/volume) 0.5 10*3 0.0-1.0 Automated eosinophil count 0.1 10*3/uL 0.0-0.3 Automated blood basophil count (count/volume) 0.0 10*3/uL 0.0-0.1 Complete urinalysis with reflex to culture - 05/06/16 14:36 Urine color determination RED NRG Urine clarity determination VERY CLOUDY NRG Urine pH measurement by test strip 6 5-9 Specific gravity of urine by test strip 1.010 1.016- 1.022 Urine protein assay by test strip, semi-quantitative 2+ NEGATIVE Urine glucose detection by automated test strip 4+ NEGATIVE Erythrocytes detection in urine sediment by light microscopy 5+ NEGATIVE Urine ketones detection by automated test strip NEGATIVE NEGATIVE Urine nitrite detection by test strip NEGATIVE NEGATIVE Urine total bilirubin detection by test strip NEGATIVE NEGATIVE Urine urobilinogen measurement by automated test strip (mass/volume) NORMAL NORMAL Urine leukocyte esterase detection by dipstick 1+ NEGATIVE Automated urine sediment erythrocyte count by microscopy (number/high power field) > [HPF] NRG Automated urine sediment leukocyte count by microscopy (number/high power field ) RARE NRG Bacteria detection in urine sediment by light microscopy NEGATIVE NRG Squamous epithelial cells detection in urine sediment by light microscopy 0-2 NRG Crystals detection in urine sediment by light microscopy NONE NRG Casts detection in urine sediment by light microscopy NONE NRG Mucus detection in urine sediment by light microscopy NEGATIVE NRG Complete urinalysis with reflex to culture NO NRG Whole blood basic metabolic panel - 05/06/16 14:36 Serum or plasma sodium measurement (moles/volume) 136 mmol/L 135-145 Serum or plasma potassium measurement (moles/volume) 3.8 mmol/L 3.6-5.0 Serum or plasma chloride measurement (moles/volume) 98 mmol/L 98-107 Carbon dioxide 25 mmol/L 21-32 Serum or plasma anion gap determination (moles/volume) 13 mmol/L 5-14 Serum or plasma urea nitrogen measurement (mass/volume) 10 mg/dL 7-18 Serum or plasma creatinine measurement (mass/volume) 0.78 mg/dL 0.60-1.30 Serum or plasma urea nitrogen/creatinine mass ratio 13 NRG Serum or plasma creatinine measurement with calculation of estimated glomerular filtration rate > NRG Serum or plasma glucose measurement (mass/volume) 521 mg/dL 70-105 Serum or plasma calcium measurement (mass/volume) 9.2 mg/dL 8.5-10.1 Capillary blood glucose measurement by glucometer (mass/volume) - 05/06/16 16: 30 Capillary blood glucose measurement by glucometer (mass/volume) 322 mg/dL 70-110 Blood CBC with ordered manual differential panel - 09/07/16 07:42 Blood leukocytes automated count (number/volume) 14.3 10*3/uL 4.3-11.0 Blood erythrocytes automated count (number/volume) 5.19 10*6/uL 4.35-5.85 Venous blood hemoglobin measurement (mass/volume) 15.5 g/dL 11.5-16.0 Blood hematocrit (volume fraction) 46 % 35-52 Automated erythrocyte mean corpuscular volume 89 [foz_us] 80-99 Automated erythrocyte mean corpuscular hemoglobin (mass per erythrocyte) 30 pg 25-34 Automated erythrocyte mean corpuscular hemoglobin concentration measurement ( mass/volume) 34 g/dL 32-36 Automated erythrocyte distribution width ratio 14.2 % 10.0-14.5 Automated blood platelet count (count/volume) 317 10*3/uL 130-400 Automated blood platelet mean volume measurement 10.8 [foz_us] 7.4-10.4 Automated blood neutrophils/100 leukocytes 67 % 42-75 Automated blood lymphocytes/100 leukocytes 27 % 12-44 Blood monocytes/100 leukocytes 3 % NRG Automated blood eosinophils/100 leukocytes 1 % 0-10 Automated blood basophils/100 leukocytes 0 % 0-10 Blood neutrophils automated count (number/volume) 9.6 10*3 1.8-7.8 Blood lymphocytes automated count (number/volume) 3.8 10*3 1.0-4.0 Blood monocytes automated count (number/volume) 0.7 10*3 0.0-1.0 Automated eosinophil count 0.2 10*3/uL 0.0-0.3 Automated blood basophil count (count/volume) 0.0 10*3/uL 0.0-0.1 Manual blood segmented neutrophils/100 leukocytes 70 % NRG Blood band neutrophils/100 leukocytes 2 % NRG Manual blood lymphocytes/100 leukocytes 24 % NRG Manual eosinophils/100 leukocytes in nose 0 % NRG Manual blood basophils/100 leukocytes 0 % NRG Blood lymphocytes variant/100 leukocytes 1 % NRG Blood toxic granules detection by light microscopy 1+ NRG Comprehensive metabolic panel - 09/07/16 07:42 Serum or plasma sodium measurement (moles/volume) 137 mmol/L 135-145 Serum or plasma potassium measurement (moles/volume) 4.1 mmol/L 3.6-5.0 Serum or plasma chloride measurement (moles/volume) 101 mmol/L 98-107 Carbon dioxide 23 mmol/L 21-32 Serum or plasma anion gap determination (moles/volume) 13 mmol/L 5-14 Serum or plasma urea nitrogen measurement (mass/volume) 7 mg/dL 7-18 Serum or plasma creatinine measurement (mass/volume) 0.71 mg/dL 0.60-1.30 Serum or plasma urea nitrogen/creatinine mass ratio 10 NRG Serum or plasma creatinine measurement with calculation of estimated glomerular filtration rate > NRG Serum or plasma glucose measurement (mass/volume) 336 mg/dL 70-105 Serum or plasma calcium measurement (mass/volume) 9.7 mg/dL 8.5-10.1 Serum or plasma total bilirubin measurement (mass/volume) 0.5 mg/dL 0.1-1.0 Serum or plasma alkaline phosphatase measurement (enzymatic activity/volume) 120 U/L 40-136 Serum or plasma aspartate aminotransferase measurement (enzymatic activity/ volume) 39 U/L 5-34 Serum or plasma alanine aminotransferase measurement (enzymatic activity/volume ) 58 U/L 0-55 Serum or plasma protein measurement (mass/volume) 6.7 g/dL 6.4-8.2 Serum or plasma albumin measurement (mass/volume) 3.8 g/dL 3.2-4.5 Serum or plasma amylase measurement (enzymatic activity/volume) - 09/07/16 07: 42 Serum or plasma amylase measurement (enzymatic activity/volume) 24 U /L 25-125 Lipase - 09/07/16 07:42 Lipase 16 U/L 8-78 Serum or plasma C reactive protein measurement (mass/volume) - 09/07/16 07:42 Serum or plasma C reactive protein measurement (mass/volume) 4.00 mg /dL 0.00-0.50 Erythrocyte sedimentation rate by westergren method - 09/07/16 07:42 Erythrocyte sedimentation rate by westergren method 7 mm 0-20 Complete blood count (CBC) with automated white blood cell (WBC) differential - 09/07/16 08:41 Blood leukocytes automated count (number/volume) 14.3 10*3/uL 4.3-11.0 Blood erythrocytes automated count (number/volume) 5.19 10*6/uL 4.35-5.85 Venous blood hemoglobin measurement (mass/volume) 15.5 g/dL 11.5-16.0 Blood hematocrit (volume fraction) 46 % 35-52 Automated erythrocyte mean corpuscular volume 89 [foz_us] 80-99 Automated erythrocyte mean corpuscular hemoglobin (mass per erythrocyte) 30 pg 25-34 Automated erythrocyte mean corpuscular hemoglobin concentration measurement ( mass/volume) 34 g/dL 32-36 Automated erythrocyte distribution width ratio 14.2 % 10.0-14.5 Automated blood platelet count (count/volume) 317 10*3/uL 130-400 Automated blood platelet mean volume measurement 10.8 [foz_us] 7.4-10.4 Automated blood neutrophils/100 leukocytes 67 % 42-75 Automated blood lymphocytes/100 leukocytes 27 % 12-44 Blood monocytes/100 leukocytes 5 % 0-12 Automated blood eosinophils/100 leukocytes 1 % 0-10 Automated blood basophils/100 leukocytes 0 % 0-10 Blood neutrophils automated count (number/volume) 9.6 10*3 1.8-7.8 Blood lymphocytes automated count (number/volume) 3.8 10*3 1.0-4.0 Blood monocytes automated count (number/volume) 0.7 10*3 0.0-1.0 Automated eosinophil count 0.2 10*3/uL 0.0-0.3 Automated blood basophil count (count/volume) 0.0 10*3/uL 0.0-0.1 Blood manual differential performed detection - 09/07/16 08:41 Blood monocytes/100 leukocytes 3 % NRG Manual blood segmented neutrophils/100 leukocytes 70 % NRG Blood band neutrophils/100 leukocytes 2 % NRG Manual blood lymphocytes/100 leukocytes 24 % NRG Manual eosinophils/100 leukocytes in nose 0 % NRG Manual blood basophils/100 leukocytes 0 % NRG Blood lymphocytes variant/100 leukocytes 1 % NRG Blood erythrocyte morphology finding identification NORMAL NRG Blood toxic granules detection by light microscopy 1+ NRG Complete urinalysis with reflex to culture - 09/07/16 08:41 Urine color determination YELLOW NRG Urine clarity determination CLEAR NRG Urine pH measurement by test strip 6.5 5-9 Specific gravity of urine by test strip 1.015 1.016- 1.022 Urine protein assay by test strip, semi-quantitative 3+ NEGATIVE Urine glucose detection by automated test strip 4+ NEGATIVE Erythrocytes detection in urine sediment by light microscopy 1+ NEGATIVE Urine ketones detection by automated test strip NEGATIVE NEGATIVE Urine nitrite detection by test strip NEGATIVE NEGATIVE Urine total bilirubin detection by test strip NEGATIVE NEGATIVE Urine urobilinogen measurement by automated test strip (mass/volume) NORMAL NORMAL Urine leukocyte esterase detection by dipstick NEGATIVE NEGATIVE Automated urine sediment erythrocyte count by microscopy (number/high power field) [HPF] NRG Automated urine sediment leukocyte count by microscopy (number/high power field ) NONE NRG Bacteria detection in urine sediment by light microscopy NEGATIVE NRG Squamous epithelial cells detection in urine sediment by light microscopy 2-5 NRG Crystals detection in urine sediment by light microscopy NONE NRG Casts detection in urine sediment by light microscopy NONE NRG Mucus detection in urine sediment by light microscopy NEGATIVE NRG Complete urinalysis with reflex to culture NO NRG Comprehensive metabolic panel - 09/07/16 08:41 Serum or plasma sodium measurement (moles/volume) 136 mmol/L 135-145 Serum or plasma potassium measurement (moles/volume) 4.0 mmol/L 3.6-5.0 Serum or plasma chloride measurement (moles/volume) 99 mmol/L 98-107 Carbon dioxide 24 mmol/L 21-32 Serum or plasma anion gap determination (moles/volume) 13 mmol/L 5-14 Serum or plasma urea nitrogen measurement (mass/volume) 7 mg/dL 7-18 Serum or plasma creatinine measurement (mass/volume) 0.70 mg/dL 0.60-1.30 Serum or plasma urea nitrogen/creatinine mass ratio 10 NRG Serum or plasma creatinine measurement with calculation of estimated glomerular filtration rate > NRG Serum or plasma glucose measurement (mass/volume) 300 mg/dL 70-105 Serum or plasma calcium measurement (mass/volume) 9.2 mg/dL 8.5-10.1 Serum or plasma total bilirubin measurement (mass/volume) 0.6 mg/dL 0.1-1.0 Serum or plasma alkaline phosphatase measurement (enzymatic activity/volume) 121 U/L 40-136 Serum or plasma aspartate aminotransferase measurement (enzymatic activity/ volume) 39 U/L 5-34 Serum or plasma alanine aminotransferase measurement (enzymatic activity/volume ) 57 U/L 0-55 Serum or plasma protein measurement (mass/volume) 6.8 g/dL 6.4-8.2 Serum or plasma albumin measurement (mass/volume) 3.9 g/dL 3.2-4.5 Serum or plasma troponin i.cardiac measurement (mass/volume) - 09/07/16 08:41 Serum or plasma troponin i.cardiac measurement (mass/volume) < ng/ mL <0.30 Bacterial urine culture - 09/07/16 08:41 Bacterial urine culture FOOTNOTE NRG Urine beta human chorionic gonadotropin (hCG) measurement - 10/02/16 09:41 Urine beta human chorionic gonadotropin (hCG) measurement NEGATIVE NEGATIVE Capillary blood glucose measurement by glucometer (mass/volume) - 10/02/16 10: 02 Capillary blood glucose measurement by glucometer (mass/volume) 245 mg/dL 70-110 Encounters ACCT No. Visit Date/Time Discharge Status Pt. Type Provider Facility Loc./Unit Complaint [id number] 05/17/2013 12:57:00 05/17/2013 23:59:59 CLS Outpatient ITZ LIMA DO [id number] 07/22/2012 14:11:00 07/22/2012 23:59:59 CLS Outpatient [id number] 06/10/2012 11:54:00 06/10/2012 23:59:59 CLS Outpatient ITZ LIMA DO [id number] 01/29/2012 14:35:00 01/29/2012 23:59:59 CLS Outpatient [id number] 12/16/2012 17:14:00 Document Registration [id number] 12/02/2012 16:48:00 Document Registration [id number] 11/19/2012 17:41:00 Document Registration [id number] 11/12/2012 15:43:00 Document Registration [id number] 05/03/2017 09:45:35 05/03/2017 23:59:59 CLS Outpatient [id number] 03/26/2017 19:20:00 03/26/2017 23:59:59 CLS Outpatient MICHELLE MARKS APRN [facility] [id number] 06/14/2017 13:38:00 06/14/2017 23:59:59 CLS Outpatient FAHAD ALARCON APRN [facility] RAD LT FOOT PAIN [id number] 03/15/2017 00:29:00 03/15/2017 23:59:59 CLS Preadmit CARLA GIORDANO [facility] ONC [id number] 12/14/2016 13:55:00 03/14/2017 00:01:00 DIS Outpatient CARLA GIORDANO [facility] ONC [id number] 02/11/2017 15:06:00 02/11/2017 23:59:59 CLS Outpatient ANCELMO CRAIG [employer] [facility] RAD M79.672 [id number] 02/09/2017 10:00:00 02/09/2017 23:59:59 CLS Preadmit FAHAD ALARCON APRN [facility] DSME DM2 [id number] 11/10/2016 10:05:00 02/08/2017 00:01:00 DIS Outpatient FAHAD ALARCON APRN [facility] DSME DM2 [id number] 01/19/2017 12:10:00 01/19/2017 23:59:59 CLS Outpatient CHIDI OROZCO DO [facility] RAD SCREENING Z12.31, MENORRHAGIA N92.0 [id number] 10/02/2016 09:35:00 10/02/2016 23:59:59 CLS Outpatient WILLY CROCKER MD [facility] ENDO HISTORY OF ULCERS/ REFLUX [id number] 09/28/2016 05:48:00 09/28/2016 15:15:00 DIS Outpatient WILLY CROCKER MD [facility] PREOP EGD [id number] 09/07/2016 07:24:00 09/07/2016 23:59:59 CLS Outpatient FAHAD ALARCON APRN [facility] RAD ABDOMINAL PAIN, EPIGASTRIC PAIN [id number] 09/07/2016 08:28:00 09/07/2016 11:26:00 DIS Emergency KYLAH THOMASON, SHERI Bernardo [facility] ER CHEST PAIN [id number] 05/06/2016 14:00:00 05/06/2016 17:02:00 DIS Emergency SANDRA ECHEVERRIA MD [facility] ER ELEVATED BLOOD SUGAR [id number] 03/04/2016 13:33:00 03/04/2016 23:59:59 CLS Outpatient JILLIANTOÑA LugoRA Kaufman [employer] [facility] QUICK COUGH [id number] 03/02/2016 13:10:00 03/02/2016 23:59:59 CLS Outpatient FAHAD ALARCON VICKI [facility] RAD L ARM NODULE [id number] 07/21/2015 06:03:00 07/21/2015 23:59:59 CLS Outpatient YAA RAINEY MD [facility] SDC LEFT TORN MEDIAL MENISCUS [id number] 07/15/2015 15:01:00 07/15/2015 23:59:59 CLS Outpatient YAA RAINEY MD [facility] PREOP LEFT TORN MEDIAL MENISCUS [id number] 06/29/2015 08:57:00 06/29/2015 23:59:59 CLS Outpatient HELENJerzy ARTHUR Bertrand [employer] [facility] RAD LEFT KNEE PAIN [id number] 05/13/2013 13:58:00 05/13/2013 23:59:59 CLS Outpatient SISSY RODRIGUEZ [employer] [facility] QUICK FEVER/SOA [id number] 02/24/2013 08:06:00 02/24/2013 11:20:00 DIS Outpatient WILLY CROCKER MD [facility] SDC UPPER GASTRIC PAIN [id number] 02/20/2013 07:13:00 02/20/2013 23:59:59 CLS Outpatient WILLY CROCKER MD [facility] PREOP UPPER GASTRIC PAIN [id number] 01/31/2013 20:10:00 02/01/2013 07:20:00 DIS Outpatient KATHARINA MENDOZAP [facility] SLEEP SNORING,CHOKING, ABN LIMB MOVEMENT,EXCESSIVE DAYTIM [id number] 01/10/2013 08:53:00 01/10/2013 23:59:59 CLS Outpatient ALEXANDRO MENDOZA DO [facility] RAD RUQ PAIN,BLOATING [id number] 01/04/2013 10:30:00 01/04/2013 23:59:59 CLS Outpatient KATHARINA MENDOZAP [facility] LAB PCOS, JOINT PAIN, INSOMNIA, VITAMIN DEFICIENCY [id number] 11/28/2012 22:54:00 11/29/2012 02:09:00 DIS Emergency PRAKASH DEMARCO [facility] ER ABD PAIN [id number] 11/28/2012 19:36:00 11/28/2012 23:59:59 CLS Emergency [id number] 11/06/2012 20:13:00 11/08/2012 11:07:00 DIS Inpatient NICHOLAS BOATENG MD [facility] SURGICAL INTRACTABLE RUQ PAIN ,LEUKOCYTOSIS [id number] 07/27/2017 08:55:00 Document Registration [id number] 07/27/2017 08:54:00 Document Registration [id number] 09/18/2015 21:54:00 Document Registration [id number] 07/15/2015 15:08:00 Document Registration [id number] 06/13/2012 14:25:00 Document Registration [id number] 01/15/2012 10:30:00 Document Registration [id number] 09/09/2009 20:16:00 Document Registration
[2017-11-07] MEDS ORDERED: HYDR-757 PO (20:51)
--- NOTE | 2017-11-07 20:56 | Diagnostic Imaging Report ---
INDICATION: Left ankle injury, pain, fall. COMPARISON: 02/11/2017. EXAMINATION: Three views of the left ankle were obtained. FINDINGS: No acute fracture or dislocation. Articular surfaces are stable. Achilles calcifications have developed. Calcaneal osteophytosis is present. There is no foreign body. IMPRESSION: No fracture or dislocation. Dictated by: Dictated on workstation # [id number]
[2017-11-07] MEDS ORDERED: RX-HYDROCODONE/APAP 5/325 MG #4 TAB PK PO PRN (21:00)
[2017-11-07 21:10] VITALS: BP 127/82
== END 2017-11-07 21:10 | disposition home or self-care (01) ==
LOC: EDUNIT# 20:09 → ER 20:10
DX: S93.402A Sprain of unspecified ligament of left ankle, initial encounter (principal); J45.909 Unspecified asthma, uncomplicated; G47.30 Sleep apnea, unspecified; I10 Essential (primary) hypertension; E11.40 Type 2 diabetes mellitus with diabetic neuropathy, unspecified; K21.9 Gastro-esophageal reflux disease without esophagitis; Z87.448 Personal history of other diseases of urinary system; Z88.8 Allergy status to other drugs, medicaments and biological substances; Z87.19 Personal history of other diseases of the digestive system; Z88.5 Allergy status to narcotic agent; Z88.0 Allergy status to penicillin; Z88.1 Allergy status to other antibiotic agents; Z79.4 Long term (current) use of insulin; Z87.59 Personal history of other complications of pregnancy, childbirth and the puerperium; Z90.89 Acquired absence of other organs; Z87.891 Personal history of nicotine dependence; Z88.2 Allergy status to sulfonamides; X50.0XXA Overexertion from strenuous movement or load, initial encounter
CPT/HCPCS: 73610

== ENCOUNTER 2017-11-09 05:33 | Outpatient (CLI) | payer OTHER ==
[~2017-11-09] VITALS: Ht 149.9 cm; Wt 113.4 kg
[~2017-11-09 05:33] MED LIST changes: +HYDR-757 PO
[2017-11-09] MEDS ORDERED: INSU300I SQ (09:27)
== END 2017-11-09 10:43 ==
LOC: PREOP 05:33
PROVIDERS: ATTEND Orthopaedic Surgery
DX: Z01.818 Encounter for other preprocedural examination (principal)

== ENCOUNTER 2017-11-14 07:58 | Day surgery (SDC) | payer OTHER ==
--- NOTE | 2017-11-08 18:35 | HISTORY AND PHYSICAL ---
DATE OF SERVICE: 11/14/2017 ADMISSION HISTORY AND PHYSICAL FOR OUTPATIENT SURGERY DATE OF ADMISSION: 11/14/2017. HISTORY OF PRESENT ILLNESS: The patient is a 47-year-old female who injured her left ankle when she stepped out of the car. Her foot caught and she sustained an eccentric plantarflexion injury. She felt and heard a pop. 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 She was felt to have an Achilles disruption. Because of this, it was recommended the patient undergo operative fixation. REVIEW OF SYSTEMS: No chest pain, no shortness of breath, no dysuria. PAST MEDICAL HISTORY: Hypertension, diabetes, sleep apnea. PAST SURGICAL HISTORY: Lipoma excision, tonsillectomy, cholecystectomy, , left knee arthroscopy. SOCIAL HISTORY: The patient denies alcohol or tobacco use. FAMILY HISTORY: Significant for hyperlipidemia. PRIMARY CARE PROVIDER: Dr. Hess. MEDICATIONS: Metoprolol and hydrocodone. ALLERGIES: DOXYCYCLINE, PENICILLIN, SULFA, ZOFRAN AND FENTANYL. PHYSICAL EXAMINATION: GENERAL: The patient is well developed, well nourished, no acute distress. HEENT: Normocephalic, atraumatic. Pupils are equal, round and reactive to light. Oropharynx is clear. NECK: Supple, no lymphadenopathy. LUNGS: Clear to auscultation bilaterally. HEART: Regular rate and rhythm. ABDOMEN: Soft, nontender, nondistended. EXTREMITIES: The left ankle demonstrates ecchymosis posteriorly. She has a palpable gap just proximal to her calcaneal tuberosity with Emery squeeze test. No plantarflexion is elicited. She has inability to plantarflex ankle actively. IMPRESSION: Avulsion, Achilles disruption, left. PLAN: Left Achilles repair. The risks, benefits, options, ramifications and recovery were discussed at length with the patient. She understands and wishes to proceed. Job ID: [id number] DocumentID: [id number] Dictated Date: 11/08/2017 13:30:00 Administrative Representative Date: 11/08/2017 14:08:23 Dictated By: YAA RAINEY MD
[~2017-11-14] VITALS: Ht 149.9 cm; Wt 113.4 kg
[~2017-11-14 07:58] MED LIST changes: +INSU300I SQ
--- OUTSIDE RECORDS SUMMARY | 2017-11-14 08:09 | XMS REPORT | Continuity of Care Document ---
Author Author [facility] Address Unknown Phone Unavailable Allergies Active Description [...] Zyrtec Drug Allergy 2008 Yes diphenhydramine HCl [id number] Drug Allergy Moderate unable to breat 11/05/2012 Yes fentanyl [id number] Drug Allergy Moderate HIVES 09/28/2016 Yes ondansetron [id number] Drug Allergy Moderate HEADACHES 09/28/2016 Yes Penicillins [id number] Drug Allergy Moderate hives 09/28/2016 Yes doxycycline [id number] Drug Allergy Mild rash 09/28/2016 Yes Sulfa (Sulfonamide Antibiotics) [id number] Drug Allergy Mild rash 2016 Yes morphine [id number] Drug Allergy Unknown HIVES 10/02/2016 Medications There [...] 305.1 NONDEPENDENT TOBACCO USE DISORDER 04/20/2011 V72.31 Oil Distributor Exam, Routine 04/20/2011 V76.2 Cervical Cancer Screening (pap Smear) 04/20/2011 ITZ LIMA DO 305.1 NONDEPENDENT TOBACCO USE DISORDER 04/20/2011 ITZ LIMA DO V72.31 Oil Distributor Exam, Routine 04/20/2011 ITZ LIMA DO V76.2 Cervical Cancer Screening (pap Smear) 04/20/2011 305.1 NONDEPENDENT TOBACCO USE DISORDER 04/20/2011 V72.31 Oil Distributor Exam, Routine 04/20/2011 V76.2 Cervical Cancer Screening (pap Smear) 04/20/2011 305.1 NONDEPENDENT TOBACCO USE DISORDER 04/20/2011 V72.31 Oil Distributor Exam, Routine 04/20/2011 V76.2 Cervical Cancer Screening (pap Smear) 04/20/2011 305.1 NONDEPENDENT TOBACCO USE DISORDER 04/20/2011 V72.31 Oil Distributor Exam, Routine 04/20/2011 V76.2 Cervical Cancer Screening (pap Smear) 04/20/2011 305.1 NONDEPENDENT TOBACCO USE DISORDER 04/20/2011 V72.31 Oil Distributor Exam, Routine 04/20/2011 V76.2 Cervical Cancer Screening (pap Smear) 04/20/2011 305.1 NONDEPENDENT TOBACCO USE DISORDER 04/20/2011 V72.31 Oil Distributor Exam, Routine 04/20/2011 V76.2 Cervical Cancer Screening (pap Smear) 04/20/2011 ITZ LIMA DO 305.1 NONDEPENDENT TOBACCO USE DISORDER 04/20/2011 ITZ LIMA DO V72.31 Oil Distributor Exam, Routine 04/20/2011 ITZ LIMA DO V76.2 [...] DO V65.42 COUNSELING - SMOKING CESSATION 06/10/2012 TIZ LIMA DO 719.47 PAIN IN JOINT INVOLVING ANKLE AND FOOT 06/10/2012 719.47 PAIN IN JOINT INVOLVING ANKLE AND FOOT 06/10/2012 719.47 PAIN IN JOINT INVOLVING ANKLE AND FOOT 06/10/2012 719.47 PAIN IN JOINT INVOLVING ANKLE AND FOOT 06/10/2012 719.47 PAIN IN JOINT INVOLVING ANKLE AND FOOT 06/10/2012 719.47 PAIN IN JOINT INVOLVING ANKLE AND FOOT 06/10/2012 ITZ LIMA DO 719.47 PAIN IN [...] DO 575.11 CHOLECYSTITIS, CHRONIC 02/01/2013 KATHARINA MENDOZA MANAGER ENVIRONMENTAL HEALTH AND SAFETY Ot 327.23 OBSTRUCTIVE SLEEP APNEA (ADULT) (PEDIATR 02/24/2013 OBI THOMASON, WILLY Castillo Ot 530.10 ESOPHAGITIS NOS 02/24/2013 OBI THOMASON, WILLY Castillo Ot 532.90 DUODENAL ULCER NOS 02/24/2013 OBI THOMASON, WILLY Castillo Ot 535.40 OTH SPECIFIED GASTRITIS,W/O MENTION OF H 05/17/2013 ITZ LIMA DO V04.81 FLU SHOT 07/14/2015 ARTHUR CAMPOS MANAGER ENVIRONMENTAL HEALTH AND SAFETY Ot M25.562 08/19/2015 REDD THOMASON, YAA Marie [...] 10/05/2015 YAA RAINEY MD Ot Z79.899 OTHER RAKE OPERATOR (CURRENT) DRUG THERAPY 11/22/2015 Ot 256.4 POLYCYSTIC OVARIES 11/22/2015 Ot 626.8 MENSTRUAL DISORDER NEC 11/22/2015 Ot 845.09 SPRAIN OF ANKLE NEC 11/22/2015 Ot E000.8 OTHER EXTERNAL CAUSE STATUS 11/22/2015 Ot E928.9 ACCIDENT NOS 11/22/2015 ALEXANDRO MENDOZA DO Ot 787.3 FLATUL/ERUCTAT/GAS PAIN 11/22/2015 ALEXANDRO MENDOZA DO Ot 789.01 ABDOMINAL PAIN, RIGHT UPPER QUADRANT 11/22/2015 KAHTARINA MENDOZA MANAGER ENVIRONMENTAL HEALTH AND SAFETY Ot 240.9 GOITER NOS 11/22/2015 KATHARINA MENDOZA MANAGER ENVIRONMENTAL HEALTH AND SAFETY Ot 256.4 POLYCYSTIC OVARIES 11/22/2015 KATHARINA MENDOZA MANAGER ENVIRONMENTAL HEALTH AND SAFETY Ot 268.9 VITAMIN D DEFICIENCY NOS 11/22/2015 KATHARINA MENDOZA MANAGER ENVIRONMENTAL HEALTH AND SAFETY Ot 626.0 ABSENCE OF MENSTRUATION 11/22/2015 KATHARINA MENDOZA MANAGER ENVIRONMENTAL HEALTH AND SAFETY Ot 704.1 HIRSUTISM 11/22/2015 KATHARINA MENDOZA MANAGER ENVIRONMENTAL HEALTH AND SAFETY Ot 719.40 JOINT PAIN-UNSPEC 11/22/2015 KATHARINA MENDOZA MANAGER ENVIRONMENTAL HEALTH AND SAFETY Ot 780.52 INSOMNIA, UNSPECIFIED 11/22/2015 KATHARINA MENDOZA MANAGER ENVIRONMENTAL HEALTH AND SAFETY Ot 782.3 EDEMA 11/22/2015 OBI THOMASON, WILLY Castillo Ot V72.84 EXAM PRE-OPERATIVE NOS 03/02/2016 FAHAD ALARCON APRN Ot R22.32 LOCALIZED SWELLING, MASS AND LUMP, LEFT 03/15/2016 FAHAD ALARCON HAND WASHER Ot R22.32 LOCALIZED SWELLING, MASS AND LUMP, LEFT 05/06/2016 SANDRA ECHEVERRIA MD Ot E11.65 TYPE 2 DIABETES MELLITUS WITH HYPERGLYCE 05/06/2016 SANDRA ECHEVERRIA MD Ot I10 ESSENTIAL (PRIMARY) HYPERTENSION 05/06/2016 SANDRA ECHEVERRIA MD Ot R00.0 TACHYCARDIA, UNSPECIFIED 05/06/2016 SANDRA ECHEVERRIA MD Ot Z79.4 ASSISTED (CURRENT) USE OF INSULIN 05/06/2016 SANDRA ECHEVERRIA MD Ot Z87.891 PERSONAL HISTORY OF NICOTINE DEPENDENCE 05/06/2016 MADARTHUR Bertrand MANAGER ENVIRONMENTAL HEALTH AND SAFETY Ot M25.562 PAIN IN LEFT KNEE 05/06/2016 YAA RAINEY MD Ot I10 ESSENTIAL (PRIMARY) HYPERTENSION 05/06/2016 YAA RAINEY MD Ot M22.42 CHONDROMALACIA PATELLAE, LEFT KNEE 05/06/2016 YAA RAINEY MD Ot M23.312 OTH MENISCUS DERANG, ANT HORN OF MEDIAL 05/06/2016 YAA RAINEY MD Ot Z11.2 ENCOUNTER FOR SCREENING FOR OTHER BACTER 05/06/2016 YAA RAINEY MD Ot Z79.899 OTHER RAKE OPERATOR (CURRENT) DRUG THERAPY 05/06/2016 YAA RAINEY MD Ot M23.8X2 OTHER INTERNAL DERANGEMENTS OF LEFT KNEE 05/06/2016 YAA RAINEY MD Ot Z01.818 ENCOUNTER FOR OTHER PREPROCEDURAL EXAMIN 05/06/2016 FAHAD ALARCON HAND WASHER Ot R22.32 LOCALIZED SWELLING, MASS AND LUMP, LEFT 05/08/2016 SANDRA ECHEVERRIA MD Ot E11.65 TYPE 2 DIABETES MELLITUS WITH HYPERGLYCE 05/08/2016 SANDRA ECHEVERRIA MD Ot I10 ESSENTIAL (PRIMARY) HYPERTENSION 05/08/2016 SANDRA ECHEVERRIA MD Ot R00.0 TACHYCARDIA, UNSPECIFIED 05/08/2016 SANDRA ECHEVERRIA MD Ot Z79.4 ASSISTED (CURRENT) USE OF INSULIN 05/08/2016 SANDRA ECHEVERRIA MD Ot Z87.891 PERSONAL HISTORY OF NICOTINE DEPENDENCE 09/07/2016 ARTHUR CAMPOS MANAGER ENVIRONMENTAL HEALTH AND SAFETY Ot M25.562 PAIN IN LEFT KNEE 09/07/2016 [...] HERNIA WITHOUT OBSTRUCTION OR 09/07/2016 FAHAD ALARCON HAND WASHER Ot K76.0 FATTY (CHANGE OF) LIVER, NOT [...] ACUTE OR CHRONIC, 11/14/2016 DORIAN, FAHAD M HAND WASHER Ot E11.65 TYPE 2 DIABETES MELLITUS WITH [...] TRANSAMNS LA 01/03/2017 CARLA GIORDANO Ot Z79.4 RAKE OPERATOR (CURRENT) USE OF INSULIN 01/03/2017 CARLA GIORDANO N Ot Z79.899 OTHER ASSISTED (CURRENT) DRUG THERAPY 02/07/2017 CHIDI OROZCO DO Ot R19.09 OTHER INTRA-ABDOMINAL AND PELVIC SWELLIN 02/07/2017 CHIDI OROZCO DO Ot Z12.31 ENCNTR SCREEN MAMMOGRAM FOR MALIGNANT NE 02/08/2017 FAHAD ALARCON HAND WASHER Ot E11.65 TYPE 2 DIABETES MELLITUS WITH HYPERGLYCE 02/12/2017 ANCELMO CRAIG HAND WASHER Ot M25.572 PAIN IN LEFT ANKLE AND JOINTS OF LEFT FO 02/28/2017 ANCELMO CRAIG HAND WASHER Ot M25.572 PAIN IN LEFT ANKLE AND [...] TRANSAMNS LA 03/14/2017 CARLA GIORDANO Ot Z79.4 RAKE OPERATOR (CURRENT) USE OF INSULIN 03/14/2017 CARLA GIORDANO Ot Z79.899 OTHER RAKE OPERATOR (CURRENT) DRUG THERAPY 06/14/2017 ARTHUR CAPMOSP Ot M25.562 PAIN IN LEFT KNEE 06/14/2017 [...] 06/14/2017 CARLA GIORDANO Dell Ot Z79.899 OTHER RAKE OPERATOR (CURRENT) DRUG THERAPY 06/27/2017 FAHAD ALARCON [...] PAIN, RIGHT UPPER QUADRANT 07/27/2017 KATHARINA MENDOZA MANAGER ENVIRONMENTAL HEALTH AND SAFETY Ot 240.9 GOITER NOS 07/27/2017 KATHARINA MENDOZA MANAGER ENVIRONMENTAL HEALTH AND SAFETY Ot 256.4 POLYCYSTIC OVARIES 07/27/2017 KATHARINA MENDOZA MANAGER ENVIRONMENTAL HEALTH AND SAFETY Ot 268.9 VITAMIN D DEFICIENCY NOS 07/27/2017 KATHARINA MENDOZA MANAGER ENVIRONMENTAL HEALTH AND SAFETY Ot 626.0 ABSENCE OF MENSTRUATION 07/27/2017 KATHARINA MENDOZA MANAGER ENVIRONMENTAL HEALTH AND SAFETY Ot 704.1 HIRSUTISM 07/27/2017 KATHARINA MENDOZA MANAGER ENVIRONMENTAL HEALTH AND SAFETY Ot 719.40 JOINT PAIN-UNSPEC 07/27/2017 KATHARINA MENDOZA MANAGER ENVIRONMENTAL HEALTH AND SAFETY Ot 780.52 INSOMNIA, UNSPECIFIED 07/27/2017 KATHARINA MENDOZA MANAGER ENVIRONMENTAL HEALTH AND SAFETY Ot 782.3 EDEMA 07/27/2017 OBI THOMASON, WILLY Castillo Ot V72.84 EXAM PRE-OPERATIVE NOS 07/27/2017 ARTHUR CAMPOS MANAGER ENVIRONMENTAL HEALTH AND SAFETY Ot M25.562 PAIN IN LEFT KNEE 07/27/2017 [...] GIORDANO Ot E28.2 POLYCYSTIC OVARIAN SYNDROME 07/27/2017 CALRA GIORDANO Ot I10 ESSENTIAL (PRIMARY) HYPERTENSION 07/27/2017 CARLA GIORDANO Ot K29.70 GASTRITIS, UNSPECIFIED, WITHOUT BLEEDING 07/27/2017 CARLA GIORDANO Ot M15.0 PRIMARY GENERALIZED (OSTEO)ARTHRITIS 07/27/2017 CARLA GIORDANO Ot R74.0 NONSPEC ELEV OF LEVELS OF TRANSAMNS LA 07/27/2017 CARLA GIORDANO Ot Z79.4 RAKE OPERATOR (CURRENT) USE OF INSULIN 07/27/2017 CARLA [...] TRANSAMNS LA 07/27/2017 CARLA GIORDANO Ot Z79.4 RAKE OPERATOR (CURRENT) USE OF INSULIN 07/27/2017 CARLA GIORDANO Dell Ot Z79.899 OTHER RAKE OPERATOR (CURRENT) DRUG THERAPY 07/27/2017 FAHAD ALARCON [...] PAIN, RIGHT UPPER QUADRANT 08/23/2017 KATHARINA MENDOZA MANAGER ENVIRONMENTAL HEALTH AND SAFETY Ot 240.9 GOITER NOS 08/23/2017 KATHARINA MENDOZA MANAGER ENVIRONMENTAL HEALTH AND SAFETY Ot 256.4 POLYCYSTIC OVARIES 08/23/2017 KATHARINA MENDOZA MANAGER ENVIRONMENTAL HEALTH AND SAFETY Ot 268.9 VITAMIN D DEFICIENCY NOS 08/23/2017 KATHARINA MENDOZA MANAGER ENVIRONMENTAL HEALTH AND SAFETY Ot 626.0 ABSENCE OF MENSTRUATION 08/23/2017 KATHARINA MENDOZA MANAGER ENVIRONMENTAL HEALTH AND SAFETY Ot 704.1 HIRSUTISM 08/23/2017 KATHARINA MENDOZA MANAGER ENVIRONMENTAL HEALTH AND SAFETY Ot 719.40 JOINT PAIN-UNSPEC 08/23/2017 KATHARINA MENDOZA MANAGER ENVIRONMENTAL HEALTH AND SAFETY Ot 780.52 INSOMNIA, UNSPECIFIED 08/23/2017 KATHARINA MENDOZA MANAGER ENVIRONMENTAL HEALTH AND SAFETY Ot 782.3 EDEMA 08/23/2017 OBI THOMASON, WILLY Castillo Ot V72.84 EXAM PRE-OPERATIVE NOS 11/07/2017 ARTHUR CAMPOS PERICO Ot M25.562 PAIN IN LEFT KNEE 11/07/2017 YAA RAINEY MD Ot I10 ESSENTIAL (PRIMARY) HYPERTENSION 11/07/2017 YAA RAINEY MD Ot M22.42 CHONDROMALACIA PATELLAE, LEFT KNEE 11/07/2017 YAA RAINEY MD Ot M23.312 OTH MENISCUS DERANG, ANT HORN OF MEDIAL 11/07/2017 YAA RAINEY MD Ot Z11.2 ENCOUNTER FOR SCREENING FOR OTHER BACTER 11/07/2017 YAA RAINEY MD Ot Z79.899 OTHER ASSISTED (CURRENT) DRUG THERAPY 11/07/2017 YAA RAINEY MD, Ot M23.8X2 OTHER INTERNAL DERANGEMENTS OF LEFT KNEE 11/07/2017 YAA RAINEY MD Ot Z01.818 ENCOUNTER FOR OTHER PREPROCEDURAL EXAMIN 11/07/2017 FAHAD ALARCON APRN Ot R22.32 LOCALIZED SWELLING, MASS AND LUMP, LEFT 11/07/2017 FAHAD ALARCON APRN Ot K42.9 UMBILICAL HERNIA WITHOUT OBSTRUCTION OR 11/07/2017 FAHAD ALARCON APRN Ot K76.0 FATTY (CHANGE OF) LIVER, NOT ELSEWHERE C 11/07/2017 FAHAD ALARCON APRN Ot R16.0 HEPATOMEGALY, NOT ELSEWHERE CLASSIFIED 11/07/2017 FAHAD ALARCON APRN Ot R59.0 LOCALIZED ENLARGED LYMPH NODES 11/07/2017 OBI THOMASON, WILLY Castillo Ot K20.9 ESOPHAGITIS, UNSPECIFIED 11/07/2017 OBI THOMASON, WILLY Castillo Ot K25.9 GASTRIC ULCER, UNSP ACUTE OR CHRONIC, 11/07/2017 CHIDI OROZCO DO Ot R19.09 OTHER INTRA-ABDOMINAL AND PELVIC SWELLIN 11/07/2017 CHIDI OROZCO DO Ot Z12.31 ENCNTR SCREEN MAMMOGRAM FOR MALIGNANT NE 11/07/2017 FAHAD ALARCON APRN Ot E11.65 TYPE 2 DIABETES MELLITUS WITH HYPERGLYCE 11/07/2017 ANCELMO CRAIG APRN Ot M25.572 PAIN IN LEFT ANKLE AND JOINTS OF LEFT FO 11/07/2017 CARLA GIORDANO Ot D72.829 ELEVATED WHITE BLOOD CELL COUNT, UNSPECI 11/07/2017 CARLA GIORDANO Ot E11.9 TYPE 2 DIABETES MELLITUS WITHOUT COMPLIC 11/07/2017 PASQUALE CARLA Sharpe Ot E28.2 POLYCYSTIC OVARIAN SYNDROME 11/07/2017 PASQUALE, CARLA Sharpe Ot I10 ESSENTIAL (PRIMARY) HYPERTENSION 11/07/2017 PASQUALE, CARLA Sharpe Ot K29.70 GASTRITIS, UNSPECIFIED, WITHOUT BLEEDING 11/07/2017 PASQUALE JUVENALNAHOMI Dell Ot M15.0 PRIMARY GENERALIZED (OSTEO)ARTHRITIS 11/07/2017 PASQUALE JUVENALNAHOMI Dell Ot R74.0 NONSPEC ELEV OF LEVELS OF TRANSAMNS LA 11/07/2017 PASQUALE JUVENALNAHOMI Dell Ot Z79.4 ASSISTED (CURRENT) USE OF INSULIN 11/07/2017 PASQUALE, CARLA Sharpe Ot Z79.899 OTHER RAKE OPERATOR (CURRENT) DRUG THERAPY 11/07/2017 FAHAD ALARCON APRN Ot M66.872 SPONTANEOUS RUPTURE OF OTHER TENDONS, LE 11/07/2017 FAHAD ALARCON APRN Ot M71.572 OTH BURSITIS, NOT ELSEWHERE CLASSIFIED, 11/07/2017 FAHAD ALARCON APRN Ot M76.62 ACHILLES TENDINITIS, LEFT LEG 11/07/2017 FAHAD ALARCON APRN Ot M89.8X7 OTHER SPECIFIED DISORDERS OF BONE, ANKLE 11/07/2017 ANDRES ARTHURBetty RIVER Ot M25.562 PAIN IN LEFT KNEE 11/07/2017 YAA RAINEY MD Ot I10 ESSENTIAL (PRIMARY) HYPERTENSION 11/07/2017 YAA RAINEY MD Ot M22.42 CHONDROMALACIA PATELLAE, LEFT KNEE 11/07/2017 YAA RAINEY MD Ot M23.312 OTH MENISCUS DERANG, ANT HORN OF MEDIAL 11/07/2017 YAA RAINEY MD Ot Z11.2 ENCOUNTER FOR SCREENING FOR OTHER BACTER 11/07/2017 YAA RAINEY MD Ot Z79.899 OTHER RAKE OPERATOR (CURRENT) DRUG THERAPY 11/07/2017 YAA RAINEY MD Ot M23.8X2 OTHER INTERNAL DERANGEMENTS OF LEFT KNEE 11/07/2017 YAA RAINEY MD Ot Z01.818 ENCOUNTER FOR OTHER PREPROCEDURAL EXAMIN 11/07/2017 FAHAD ALARCON APRN Ot R22.32 LOCALIZED SWELLING, MASS AND LUMP, LEFT 11/07/2017 FAHAD ALARCON APRN Ot K42.9 UMBILICAL HERNIA WITHOUT OBSTRUCTION OR 11/07/2017 FAHAD ALARCON APRN Ot K76.0 FATTY (CHANGE OF) LIVER, NOT ELSEWHERE C 11/07/2017 FAHAD ALARCON APRN Ot R16.0 HEPATOMEGALY, NOT ELSEWHERE CLASSIFIED 11/07/2017 FAHAD ALARCON APRN Ot R59.0 LOCALIZED ENLARGED LYMPH NODES 11/07/2017 OBI THOMASON, WILLY Castillo Ot K20.9 ESOPHAGITIS, UNSPECIFIED 11/07/2017 OBI THOMASON, WILLY Castillo Ot K25.9 GASTRIC ULCER, UNSP ACUTE OR CHRONIC, 11/07/2017 CHIDI OROZCO DO Ot R19.09 OTHER INTRA-ABDOMINAL AND PELVIC SWELLIN 11/07/2017 CHIDI OROZCO DO Ot Z12.31 ENCNTR SCREEN MAMMOGRAM FOR MALIGNANT NE 11/07/2017 FAHAD ALARCON APRN Ot E11.65 TYPE 2 DIABETES MELLITUS WITH HYPERGLYCE 11/07/2017 ANCELMO CRAIG HAND WASHER Ot M25.572 PAIN IN LEFT ANKLE AND JOINTS OF LEFT FO 11/07/2017 CARLA GIORDANO Ot D72.829 ELEVATED WHITE BLOOD CELL COUNT, UNSPECI 11/07/2017 CARLA GIORDANO Ot E11.9 TYPE 2 DIABETES MELLITUS WITHOUT COMPLIC 11/07/2017 CARLA GIORDANO Ot E28.2 POLYCYSTIC OVARIAN SYNDROME 11/07/2017 CARLA GIORDANO Ot I10 ESSENTIAL (PRIMARY) HYPERTENSION 11/07/2017 CARLA GIORDANO Ot K29.70 GASTRITIS, UNSPECIFIED, WITHOUT BLEEDING 11/07/2017 CARLA GIORDANO Ot M15.0 PRIMARY GENERALIZED (OSTEO)ARTHRITIS 11/07/2017 CARLA GIORDANO Ot R74.0 NONSPEC ELEV OF LEVELS OF TRANSAMNS LA 11/07/2017 CARLA GIORDANO Ot Z79.4 ASSISTED (CURRENT) USE OF INSULIN 11/07/2017 CARLA GIORDANO Ot Z79.899 OTHER RAKE OPERATOR (CURRENT) DRUG THERAPY 11/07/2017 FAHAD ALARCON APRN Ot M66.872 SPONTANEOUS RUPTURE OF OTHER TENDONS, LE 11/07/2017 FAHAD ALARCON APRN Ot M71.572 OTH BURSITIS, NOT ELSEWHERE CLASSIFIED, 11/07/2017 FAHAD ALARCON APRN Ot M76.62 ACHILLES TENDINITIS, LEFT LEG 11/07/2017 FAHAD ALARCON APRN Ot M89.8X7 OTHER SPECIFIED DISORDERS OF BONE, ANKLE Procedures Code Description [place] [address] MRI EXTREMITY JOINT, LOWER LEFT, W/O CONTRAST 06/14/2012 51.23 LAPAROSCOPIC CHOLECYSTECTOMY 11/07/2012 02081 XRAY CHEST 2 VIEW 11/12/2012 42786 CMP 11/19/2012 81180 LIPID PANEL 11/19/2012 52846 A1C (RML) 11/19/2012 78239 TSH 11/19/2012 84112 CBC 11/19/2012 27682 PULMONARY FUNCTION TEST (IN- HOUSE) 11/19/2012 Willy [...] Manual eosinophils/100 leukocytes in nose 0 % [facility] Manual blood basophils/100 leukocytes 0 % [facility] Blood lymphocytes variant/100 leukocytes 1 % [facility] Blood toxic granules detection by light microscopy 1+ [facility] Comprehensive metabolic panel - 09/07/16 07:42 Serum [...] Status Pt. Type Provider Facility Loc./Unit Complaint [id number] 05/17/2013 12:57:00 05/17/2013 23:59:59 CLS Outpatient ITZ LIMA DO [id number] 07/22/2012 14:11:00 07/22/2012 23:59:59 CLS Outpatient [id number] 06/10/2012 11:54:00 06/10/2012 23:59:59 CLS Outpatient ITZ LIMA DO [id number] 01/29/2012 14:35:00 01/29/2012 23:59:59 CLS Outpatient [id number] 12/16/2012 17:14:00 Document Registration [id number] 12/02/2012 16:48:00 Document Registration [id number] 11/19/2012 17:41:00 Document Registration [id number] 11/12/2012 15:43:00 Document Registration [id number] 05/03/2017 09:45:35 05/03/2017 23:59:59 CLS Outpatient [id number] 03/26/2017 19:20:00 03/26/2017 23:59:59 CLS Outpatient MICHELLE MARKS APRN [facility] [id number] 11/07/2017 20:10:00 11/07/2017 21:10:00 DIS Emergency ELVIRA PENA APRN [facility] ER ANKLE INJ [id number] 06/14/2017 13:38:00 06/14/2017 23:59:59 CLS Outpatient FAHAD ALARCON HAND WASHER [facility] RAD LT FOOT PAIN [id number] 03/15/2017 00:29:00 03/15/2017 23:59:59 CLS Preadmit CARLA GIORDANO N [facility] ONC [id number] 12/14/2016 13:55:00 03/14/2017 00:01:00 DIS Outpatient CARLA GIORDANO [facility] ONC [id number] 02/11/2017 15:06:00 02/11/2017 23:59:59 CLS Outpatient ANCELMO CRAIG HAND WASHER [facility] RAD M79.672 [id number] 02/09/2017 10:00:00 02/09/2017 23:59:59 CLS Preadmit FAHAD ALARCON HAND WASHER [facility] DSME DM2 [id number] 11/10/2016 10:05:00 02/08/2017 00:01:00 DIS Outpatient FAHAD ALARCON HAND WASHER [facility] DSME DM2 [id number] 01/19/2017 12:10:00 01/19/2017 23:59:59 CLS Outpatient CHIDI OROZCO DO [facility] RAD SCREENING Z12.31, MENORRHAGIA N92.0 [id number] 10/02/2016 09:35:00 10/02/2016 23:59:59 CLS Outpatient WILLY CROCKER MD [facility] ENDO HISTORY OF ULCERS/ REFLUX [id number] 09/28/2016 05:48:00 09/28/2016 15:15:00 DIS Outpatient WILLY CROCKER MD [facility] PREOP EGD [id number] 09/07/2016 07:24:00 09/07/2016 23:59:59 CLS Outpatient FAHAD ALARCON HAND WASHER [facility] RAD ABDOMINAL PAIN, EPIGASTRIC PAIN [id number] 09/07/2016 08:28:00 09/07/2016 11:26:00 DIS Emergency KYLAH THOMASON, SHERI Bernardo [facility] ER CHEST PAIN [id number] 05/06/2016 14:00:00 05/06/2016 17:02:00 DIS Emergency JUWAN THOMASON, SANDRA Medina [facility] ER ELEVATED BLOOD SUGAR [id number] 03/04/2016 13:33:00 03/04/2016 23:59:59 CLS Outpatient PORSCHE GARCIA MANAGER ENVIRONMENTAL HEALTH AND SAFETY [facility] QUICK COUGH [id number] 03/02/2016 13:10:00 03/02/2016 23:59:59 CLS Outpatient FAHAD ALARCON HAND WASHER [facility] RAD L ARM NODULE [id number] 07/21/2015 06:03:00 07/21/2015 23:59:59 CLS Outpatient YAA RAINEY MD [facility] SDC LEFT TORN MEDIAL MENISCUS [id number] 07/15/2015 15:01:00 07/15/2015 23:59:59 CLS Outpatient YAA RAINEY MD [facility] PREOP LEFT TORN MEDIAL MENISCUS [id number] 06/29/2015 08:57:00 06/29/2015 23:59:59 CLS Outpatient ARTHUR CAMPOS MANAGER ENVIRONMENTAL HEALTH AND SAFETY [facility] RAD LEFT KNEE PAIN [id number] 05/13/2013 13:58:00 05/13/2013 23:59:59 CLS Outpatient SISSY RODRIGUEZ MANAGER ENVIRONMENTAL HEALTH AND SAFETY [facility] QUICK FEVER/SOA [id number] 02/24/2013 08:06:00 02/24/2013 11:20:00 DIS Outpatient WILLY CROCKER MD [facility] SDC UPPER GASTRIC PAIN [id number] 02/20/2013 07:13:00 02/20/2013 23:59:59 CLS Outpatient WILLY CROCKER MD [facility] PREOP UPPER GASTRIC PAIN [id number] 01/31/2013 20:10:00 02/01/2013 07:20:00 DIS Outpatient KATHARINA MENDOZA MANAGER ENVIRONMENTAL HEALTH AND SAFETY [facility] SLEEP SNORING,CHOKING, ABN LIMB MOVEMENT,EXCESSIVE DAYTIM [id number] 01/10/2013 08:53:00 01/10/2013 23:59:59 CLS Outpatient ALEXANDRO MENDOZA DO [facility] RAD RUQ PAIN,BLOATING [id number] 01/04/2013 10:30:00 01/04/2013 23:59:59 CLS Outpatient KATHARINA MENDOZA [facility] LAB PCOS, JOINT PAIN, INSOMNIA, VITAMIN DEFICIENCY [id number] 11/28/2012 22:54:00 11/29/2012 02:09:00 DIS Emergency PRAKASH DEMARCO [facility] ER ABD PAIN [id number] 11/28/2012 19:36:00 11/28/2012 23:59:59 CLS Emergency [id number] 11/06/2012 20:13:00 11/08/2012 11:07:00 DIS Inpatient TASNEEM THOMASON, NICHOLAS Duncan [facility] SURGICAL INTRACTABLE RUQ PAIN ,LEUKOCYTOSIS [id number] 07/27/2017 08:55:00 Document Registration [id number] 07/27/2017 08:54:00 Document Registration [id number] 09/18/2015 21:54:00 Document Registration [id number] 07/15/2015 15:08:00 Document Registration [id number] 06/13/2012 14:25:00 Document Registration [id number] 01/15/2012 10:30:00 Document Registration [id number] 09/09/2009 20:16:00 Document Registration
[2017-11-14 08:20] VITALS: BP 122/68
--- NOTE | 2017-11-14 08:20 | Progress Note-Pre Operative ---
Pre-Operative Progress Note H&P Reviewed The H&P was reviewed, patient examined and no changes noted. Date Seen by Provider: November 14, 2017 Time Seen by Provider: 08:20 Date H&P Reviewed: November 14, 2017 Time H&P Reviewed: 08:20 Pre-Operative Diagnosis: left Britney's tendon tear YAA RAINEY MD November 14, 2017 08:20
--- NOTE | 2017-11-14 08:21 | Progress Note-Post Operative ---
Post-Operative Progess Note Surgeon (s)/Propellant Charge Loader (s) Surgeon YAA RAINEY MD Propellant Charge Loader: Sincere Mc Pre-Operative Diagnosis left Muse's tendon tear Post-Operative Diagnosis left Achilles tendon tear Procedure & Operative Findings Date of Procedure 11/14/17 Procedure Performed/Findings left Achilles tendon repair Anesthesia Type GETA Estimated Blood Loss Estimated blood loss (mL): minimal Specimens/Packing Specimens Removed none Packing: none YAA RAINEY MD November 14, 2017 08:21
[2017-11-14] MEDS ORDERED: BUPIVACAINE 0.5% 30 ML (SENSORCAINE) VIAL ONE (08:24)
[2017-11-14] MEDS ORDERED: oxyCODONE/APAP 5/325MG (PERCOCET 5) TABLET PO PRN (08:30)
[2017-11-14] MEDS ORDERED: CLINDAMYCIN 600 MG/50 ML IVPB 50 ML IV ONE ×2 (08:30→08:45)
[2017-11-14] MEDS ORDERED: DEXMEDETOMIDINE 200 MCG/2 ML (PRECEDEX) VIAL IV ONE (08:32)
[2017-11-14] MEDS ORDERED: MIDAZOLAM 2 MG/2 ML (VERSED) VIAL ONE (08:37)
[2017-11-14] MEDS ORDERED: inSUlin (REGULAR) HUMAN 1 UNIT/0.01 ML (CHARGE PER UNIT) IV ONE (08:45)
[2017-11-14] MEDS ORDERED: LACTATED RINGERS 1,000 ML IV PRN (08:45)
[2017-11-14] MEDS ORDERED: inSUlin (REGULAR) HUMAN 1 UNIT/0.01 ML (CHARGE PER UNIT) ONE (09:14)
[2017-11-14] MEDS ORDERED: SEVOFLURANE (ULTANE) 15 ML INHAL SOLN ONE ×5 (09:53→10:49)
[2017-11-14] MEDS ORDERED: proPOfol 200 MG/20 ML (DIPRIVAN) VIAL IV ONE (09:53)
[2017-11-14] MEDS ORDERED: ROCURONIUM 10 MG/ML 5 ML SYRINGE IV ONE (09:54)
[2017-11-14] MEDS ORDERED: GLYCOPYRROLATE 0.2 MG/ML (ROBINUL) 2 ML VIAL ONE (09:58)
[2017-11-14] MEDS ORDERED: NEOSTIGMINE 1 MG/ML 5 ML SYRINGE ONE (09:58)
[2017-11-14] MEDS ORDERED: SUFentanil CITRATE INJ 50MCG/ML 1ML AMP IV ONE (10:00)
--- NOTE | 2017-11-14 10:51 | Progress Note-Pre Operative ---
Pre-Operative Progress Note H&P Reviewed The H&P was reviewed, patient examined and no changes noted. Date Seen by Provider: November 14, 2017 Time Seen by Provider: 09:30 Date H&P Reviewed: November 14, 2017 Time H&P Reviewed: 08:20 Pre-Operative Diagnosis: left Achilles tear YAA RAINEY MD November 14, 2017 10:51
[2017-11-14] MEDS ORDERED: HYDROmorphone 1 MG/ML (DILAUDID) 1 ML SYRINGE ONE (11:11)
[2017-11-14] MEDS ORDERED: HYDROmorphone 1 MG/ML (DILAUDID) 1 ML SYRINGE IV PRN (11:15)
[2017-11-14] MEDS ORDERED: PROMETHAZINE INJ 25 MG/ML (PHENERGAN) AMP IVP PRN (11:15)
[2017-11-14] MEDS ORDERED: PHENYLEPHRINE 100 MCG/ML 10 ML (ANESTHESIA) SYR ONE (11:23)
[2017-11-14 12:00] VITALS: BP 110/60
[2017-11-14 12:30] VITALS: BP 107/62
--- NOTE | 2017-11-14 12:40 | Anesthesia-General Post-Op ---
General Patient Condition Mental Status/LOC: Same as Preop Cardiovascular: Satisfactory Nausea/Vomiting: Absent Respiratory: Satisfactory Pain: Controlled Complications: Absent Post Op Complications Complications None Follow Up Care/Instructions Patient Instructions None needed. Anesthesia/Patient Condition Patient Condition Patient is doing well, no complaints, stable vital signs, no apparent adverse anesthesia problems. No complications reported per nursing. D/C home per [facility] Criteria: Yes RUCHI ARRIOLA CRNA November 14, 2017 12:39
[2017-11-14 13:00] VITALS: BP 103/54
[2017-11-14] MEDS ORDERED: HYDROmorphone (DILAUDID) 4 MG TAB PO ONE ×2 (13:15→14:00)
--- NOTE | 2017-11-14 13:20 | Physical Therapy Ortho Eval ---
PT Orthopedic Evaluation Type of Surgery left achilles tendon repair Prior Level of Function Current Living Status: Spouse Locomotion (Upon Admit): Crutches Established Durable Medical Eq: Crutches Subjective Subjective Patient in bed pre tx, agrees to PT, has 9.5/10 pain in the left foot, nurse aware and she has given her pain meds. Entry Into Home: Stairs Without Railing Steps Into Home: 3 Motor Control Motor Control: Motor Control WNL ROM Patient has full ROM and the left knee, ankle is in a cast but she can move her toes. Strength NT Transfer Transfers (B, C, W/C) (FIM): 4 Gait Gait Assistive Device: Crutches Left Lower Extremity: Left Weight Bearing Status LLE: Touch Toe Bearing Gait (FIM): 2 Distance: 50' Gait Level of Assist: 4 Summary/Comments Patient ambulated 50' with CGA using axillary crutches. She had unsteady moments but no kvng LOB or assistance needed from therapist to maintain her balance. Patient also went up and down 1 step using crutches with CGA and cues for foot placement. Treatment Rendered Treatment: Therapeutic Exercises, Gait Train, Step Train Exercise Instruction: Quad Sets, Heel Slides LAQ Assessment/Goals Goal Time Frame: 1 Visit Plan Treatment Plan: Discharge PT/Family Agrees to Plan: Yes Time Time In: 1155 Time Out: 1210 Total Billed Treatment Time: 15 Billed Treatment Time 1 visit EVL 15' Yes PT/OT Therapy GCodes Therapy Functional Limitation: Physical Therapy Test(s)/Tool used to determine: Level of Assistance Scale Functional Limitation-Current Charge Code: MOBCUR Modifier: CI Functional Limitation-Goal Charge Code: MOBGOAL Modifier: CI Functional Limitation-D/C Charge Codes: MOBDC Modifier: CI DALY MORGAN PT November 14, 2017 13:20
[2017-11-14] MEDS ORDERED: OXYC-471 PO (13:39)
[2017-11-14 14:00] VITALS: BP 100/57
[2017-11-14 14:25] VITALS: BP 100/57
--- NOTE | 2017-11-14 17:38 | OPERATIVE REPORT ---
DATE OF SERVICE: 11/14/2017 PREOPERATIVE DIAGNOSIS: Left Achilles tendon tear. POSTOPERATIVE DIAGNOSIS: Left Achilles tendon tear. PROCEDURE: Left Achilles tendon repair. SURGEON: Yaa Shook MD ASSOCIATE PROFESSOR OF SOCIOLOGY: PERICO Rivera, who assisted throughout the procedure and closed the incisions. ANESTHESIA: General endotracheal by Dr. Meredith TOURNIQUET TIME: Approximately 48 minutes at 300 mmHg. ESTIMATED BLOOD LOSS: Minimal. DRAINS: None. COMPLICATIONS: None. POSTOPERATIVE PLAN: Protected ambulation for six to eight weeks. The patient transferred to the recovery room awake in stable condition. STATEMENT OF MEDICAL NECESSITY: The patient is a 47-year-old female who injured her left Achilles last week she was stepped out of the car and felt and heard a pop. Radiographs revealed an avulsion of the Sussy's deformity. She had a palpable defect in her distal Achilles and with a Emery squeeze test. No plantar flexion was noted. She had no active plantar flexion either. Due to the fact, this appeared to be an avulsion. It was recommended that the patient undergo operative fixation. The patient was counseled due to her comorbidities and she was at risk of wound problems. DESCRIPTION OF PROCEDURE: After risks and benefits of procedure were discussed and questions were answered and informed consent was signed and placed on chart. The operative site was confirmed in the preoperative holding area initialed by the surgeon. The patient was then transferred to the operating room and after adequate levels of general endotracheal anesthetic were obtained, a timeout was called confirming the operative site. The patient was then carefully placed in the prone position, being careful to pad all bony prominences. The left lower extremity was then prepped and draped in the usual sterile fashion. A longitudinal incision was made just lateral to the Achilles tendon and soft tissues were developed in full thickness fashion. The Achilles was avulsed from the Sussy's deformity. The Sussy's was excised with a rongeur. Bleeding bony bed was prepared and the [employer] SpeedBridge System was used. Two screws were placed proximally and two distally in standard fashion with an excellent repair obtained. No undue tension was noted at the repair site. This was reinforced with the sutures in which the tendon proximally was grabbed in simple fashion and tied down distally. The ankle was taken through a range of motion. The repair was found to be very stable with no laxity noted at the repair site. The wound was copiously irrigated. A 2-0 Vicryl was used to reapproximate subcutaneous tissue and skin was closed with 4-0 nylon vertical mattress interrupted fashion. Incision was infiltrated with plain Marcaine. A soft dressing and posterior splint were applied and the patient was transferred to the recovery room awake in stable condition. Job ID: [id number] DocumentID: [id number] Dictated Date: 11/14/2017 10:50:53 Manager [employer]itness Date: 11/14/2017 17:37:55 Dictated By: YAA SHOOK MD
== END 2017-11-14 14:25 | disposition home or self-care (01) ==
LOC: SDC 07:58
PROVIDERS: ATTEND Orthopaedic Surgery
DX: S86.012A Strain of left Achilles tendon, initial encounter (principal); V48.4XXA Person boarding or alighting a car injured in noncollision transport accident, initial encounter; I10 Essential (primary) hypertension; E11.9 Type 2 diabetes mellitus without complications; G47.30 Sleep apnea, unspecified; Z79.899 Other long term (current) drug therapy; Z88.0 Allergy status to penicillin; Z88.1 Allergy status to other antibiotic agents; Z88.2 Allergy status to sulfonamides; Z88.8 Allergy status to other drugs, medicaments and biological substances
CPT/HCPCS: 82962; 84703; 87081

== ENCOUNTER → 2017-11-26 | Outpatient (CLI) | payer OTHER ==
[~2017-11-26] MED LIST changes: +OXYC-471 PO
--- NOTE | 2017-11-26 18:28 | Diagnostic Imaging Report ---
INDICATION: Fall. Pain. COMPARISON: None. FINDINGS: Three views of the sacrum/coccyx are obtained. No acute fracture, malalignment or osseous destructive process is seen. IMPRESSION: No acute abnormalities demonstrated. Dictated by: Dictated on workstation # [id number]
== END ==
LOC: RAD 18:02
PROVIDERS: ATTEND Family Medicine
DX: M53.3 Sacrococcygeal disorders, not elsewhere classified (principal); W19.XXXA Unspecified fall, initial encounter
CPT/HCPCS: 72220

== ENCOUNTER → 2018-03-25 | Outpatient (CLI) | payer OTHER ==
[~2018-03-25] MED LIST changes: +HYDR-4226 PO; -HYDR-757 PO; -SPIR50TA2 PO; +SPIR50TA4 PO
--- NOTE | 2018-03-25 16:57 | Diagnostic Imaging Report ---
Indication: Chest pain and dyspnea PA and lateral views of the chest are obtained with comparison made study of 09/07/2016. FINDINGS: Heart size and pulmonary vascularity are within normal limits, and the lungs are clear, bilaterally. IMPRESSION: Unremarkable chest. Dictated by: Dictated on workstation # [id number]
== END ==
LOC: RAD 16:40
PROVIDERS: ATTEND Nurse Practitioner Family
DX: R05 Cough (principal); R06.00 Dyspnea, unspecified; R07.9 Chest pain, unspecified
CPT/HCPCS: 71046

== ENCOUNTER 2018-07-11 05:31 | Outpatient (CLI) | payer OTHER ==
[~2018-07-11] VITALS: Ht 149.9 cm; Wt 95.7 kg
[2018-07-11] MEDS ORDERED: PANT40TA2 PO (10:05)
[2018-07-11] MEDS ORDERED: PROM25TA14 PO (10:05)
[2018-07-11] MEDS ORDERED: METO-395 PO (10:06)
== END 2018-07-11 10:25 | disposition home or self-care (01) ==
LOC: PREOP 05:31
PROVIDERS: ATTEND Surgery
DX: Z01.818 Encounter for other preprocedural examination (principal)

== ENCOUNTER 2018-07-15 10:35 | Day surgery (SDC) | payer OTHER ==
[~2018-07-15] VITALS: Ht 149.9 cm; Wt 95.7 kg
[2018-07-15] MEDS ORDERED: BUP/EPI 0.5% 1:200,000 (SENSORCAINE) 30 ML VIAL ONE (10:43)
--- OUTSIDE RECORDS SUMMARY | 2018-07-15 10:45 | XMS REPORT | CCD ---
Author Author Gloria Scott MD, [facility] Address [address] [place] [address] Phone Care Team Providers Care Information Tech Name Role Phone PP Unavailable CCM Unavailable Summary Purpose Interface Exchange Insurance Providers Payer name Policy type / Coverage type Covered green party ID Effective Begin Date Effective End Date [facility] Commercial Insurance [id number] Unknown Unknown Family history Father Diagnosis Age At Onset Hypertension Unknown Arthritis Unknown Mother Diagnosis Age At Onset Arthritis Unknown Hyperlipidemia Unknown Daughter Diagnosis Age At Onset Asthma Unknown Social History Social History Element Codes Description Effective Dates Marital status Unknown Darin 08/03/2015 Number of children Unknown 1 08/03/[address]: 2090877 Quit less than 5 years ago 08/03/2015 Number of years using tobacco Unknown - 08/03/2015 Alcohol history Unknown occasionally drinks alcohol 08/03/2015 Allergies, Adverse Reactions, Alerts Substance Reaction Codes Entered Date Inactivated Date Status Fentanyl RxNorm: 4337 12/23/2015 No Inactive Date Active CEPHALOSPORINS Unknown 06/16/2016 No Inactive Date Active MORPHINE AND RELATED Unknown 12/23/2015 No Inactive Date Active PENICILLINS Unknown 08/03/2015 No Inactive Date Active SULFA(SULFONAMIDE ANTIBIOTICS) Unknown 08/03/2015 No Inactive Date Active TETRACYCLINE ANALOGUES Unknown 08/20/2015 No Inactive Date Active Past Medical History Illness Codes Condition Status Onset Date Resolved Date Cellulitis of right axilla ICD-9: 682.3 ICD-10: L03.111 Active 06/05/2018 Unknown Diarrhea, unspecified ICD-9: 787.91 ICD-10: R19.7 Active 06/28/2018 Unknown Type 2 diabetes mellitus with hyperglycemia ICD-9: 250.02 ICD-10: E11.65 Active 06/12/2016 Unknown Cough ICD-9: 786.2 ICD-10: R05 Active 03/07/2018 Unknown Gastro-esophageal reflux disease without esophagitis ICD-9: 530.81 ICD-10: K21.9 Active 03/26/2018 Unknown Other allergic rhinitis ICD-9: 477.8 ICD-10: J30.89 Active 06/15/2016 Unknown Diabetes Unknown Active 03/14/2018 Unknown Encounter for immunization ICD-9: V04.81 ICD-10: Z23 Active 03/29/2016 Unknown Essential (primary) hypertension ICD-9: 401.9 ICD-10: I10 Active 08/19/2015 Unknown Obstructive sleep apnea (adult) (pediatric) ICD-9: 327.23 ICD-10: G47.33 Active 08/02/2015 Unknown Other hypertrophic disorders of the skin ICD-9: 701.9 ICD-10: L91.8 Active 03/14/2018 Unknown Other obesity due to excess calories ICD-9: 278.00 ICD-10: E66.09 Active 06/12/2016 Unknown Type 2 diabetes mellitus without complications ICD-9: 250.00 ICD-10: E11.9 Active 05/04/2016 Unknown Acute bronchitis due to other specified organisms ICD-9: 466.0 ICD-10: J20.8 Active 03/07/2016 Unknown Acute laryngopharyngitis ICD-9: 465.0 ICD-10: J06.0 Active 06/15/2016 Unknown Candidiasis of vulva and vagina ICD-9: 112.1 ICD-10: B37.3 Active 09/05/2016 Unknown Rash and other nonspecific skin eruption ICD-9: 782.1 ICD-10: R21 Active 06/07/2017 Unknown Low back pain ICD-9: 724.2 ICD-10: M54.5 Active 04/24/2017 Unknown Sacrococcygeal disorders, not elsewhere classified ICD-9: 724.79 ICD-10: M53.3 Active 11/23/2017 Unknown Polycystic ovarian syndrome ICD-9: 256.4 ICD-10: E28.2 Active 08/31/2015 Unknown Dyspnea, unspecified ICD-9: 786.09 ICD-10: R06.00 Active 06/07/2017 Unknown Localized edema ICD-9 : 782.3 ICD-10: R60.0 Active 06/07/2017 Unknown Pain in left foot ICD- 9: 729.5 ICD-10: M79.672 Active 04/24/2017 Unknown Sacroiliitis, not elsewhere classified ICD-9: 720.2 ICD-10: M46.1 Active 04/24/2017 Unknown Acute suppurative otitis media without spontaneous rupture of ear drum, right ear ICD-9: 382.00 ICD-10: H66.001 Active 01/09/2017 Unknown Umbilical hernia without obstruction or gangrene ICD-9: 553.1 ICD-10: K42.9 Active 09/12/2016 Unknown Epigastric pain ICD-9 : 789.06 ICD-10: R10.13 Active 09/05/2016 Unknown Encounter for immunization ICD-9: V05.9 ICD-10: Z23 Active 04/12/2016 Unknown Pain in right shoulder ICD-9: 719.41 ICD-10: M25.511 Active 04/09/2016 Unknown Other muscle spasm ICD -9: 728.85 ICD-10: M62.838 Active 04/05/2016 Unknown Acne vulgaris ICD-9: 706.1 ICD-10: L70.0 Active 03/07/2016 Unknown Morbid (severe) obesity due [...] -9: 709.8 ICD-10: R23.8 Active 08/31/2015 Unknown Hypertension Unknown Active 08/03/2015 Unknown Snoring ICD-9: 786.09 ICD-10: R06.83 Active 08/02/2015 Unknown Problems Condition Codes Effective Dates Condition Status Cellulitis of right axilla ICD-9: 682.3 ICD-10: L03.111 06/05/2018 Active Diarrhea, unspecified ICD-9: 787.91 ICD-10: R19.7 06/28/2018 Active Type 2 diabetes mellitus with hyperglycemia ICD-9: 250.02 ICD-10: E11.65 06/12/2016 Active Cough ICD-9: 786.2 ICD-10: R05 03/07/2018 Active Gastro-esophageal reflux disease without esophagitis ICD-9: 530.81 ICD-10: K21.9 03/26/2018 Active Other allergic rhinitis ICD-9: 477.8 ICD-10: J30.89 06/15/2016 Active Diabetes Unknown 03/14/2018 Active Encounter for immunization ICD-9: V04.81 ICD-10: Z23 03/29/2016 Active Essential (primary) hypertension ICD-9: 401.9 ICD-10: I10 08/19/2015 Active Obstructive sleep apnea (adult) (pediatric) ICD-9: 327.23 ICD-10: G47.33 08/02/2015 Active Other hypertrophic disorders of the skin ICD-9: 701.9 ICD-10: L91.8 03/14/2018 Active Other obesity due to excess calories ICD-9: 278.00 ICD-10: E66.09 06/12/2016 Active Type 2 diabetes mellitus without complications ICD-9: 250.00 ICD-10: E11.9 05/04/2016 Active Acute bronchitis due to other specified organisms ICD-9: 466.0 ICD-10: J20.8 03/07/2016 Active Acute laryngopharyngitis ICD-9: 465.0 ICD-10: J06.0 06/15/2016 Active Candidiasis of vulva and vagina ICD-9: 112.1 ICD-10: B37.3 09/05/2016 Active Rash and other nonspecific skin eruption ICD-9: 782.1 ICD-10: R21 06/07/2017 Active Low back pain ICD-9: 724.2 ICD-10: M54.5 04/24/2017 Active Sacrococcygeal disorders, not elsewhere classified ICD-9: 724.79 ICD-10: M53.3 11/23/2017 Active Polycystic ovarian syndrome ICD-9: 256.4 ICD-10: E28.2 08/31/2015 Active Dyspnea, unspecified ICD-9: 786.09 ICD-10: R06.00 06/07/2017 Active Localized edema ICD-9 : 782.3 ICD-10: R60.0 06/07/2017 Active Pain in left foot ICD- 9: 729.5 ICD-10: M79.672 04/24/2017 Active Sacroiliitis, not elsewhere classified ICD-9: 720.2 ICD-10: M46.1 04/24/2017 Active Acute suppurative otitis media without spontaneous rupture of ear drum, right ear ICD-9: 382.00 ICD-10: H66.001 01/09/2017 Active Umbilical hernia without obstruction or gangrene ICD-9: 553.1 ICD-10: K42.9 09/12/2016 Active Epigastric pain ICD-9 : 789.06 ICD-10: R10.13 09/05/2016 Active Encounter for immunization ICD-9: V05.9 ICD-10: Z23 04/12/2016 Active Pain in right shoulder ICD-9: 719.41 ICD-10: M25.511 04/09/2016 Active Other muscle spasm ICD -9: 728.85 ICD-10: M62.838 04/05/2016 Active Acne vulgaris ICD-9: 706.1 ICD-10: L70.0 03/07/2016 Active Morbid (severe) obesity due to [...] ICD -9: 709.8 ICD-10: R23.8 08/31/2015 Active Hypertension Unknown 08/03/2015 Active Snoring ICD-9: 786.09 ICD-10: R06.83 08/02/2015 Active Medications Medication Codes Instructions Start Date Stop Date Status Fill Instructions promethazine 25 mg tablet RxNorm: 472422 TABLET(S) TAKE ONE TABLET BY MOUTH EVERY 6 TO 8 HOURS NEEDED 07/05/2018 No Stop Date Active hyoscyamine 0.125 mg sublingual tablet RxNorm: 8055682 1 Tablet(s) SL TID as needed diarrhea 06/28/2018 07/07/2018 Active mupirocin 2 % topical ointment RxNorm: 165810 1 Application TOP BID 06/17/2018 06/26/2018 Inactive mupirocin 2 % topical ointment RxNorm: 220592 1 Application TOP BID 06/05/2018 No Stop Date Active Keflex 500 mg capsule RxNorm: 297414 1 Capsule(s) PO TID 201706/11/2018 Inactive ceftriaxone 500 mg solution for injection RxNorm: 2549803 Inj 06/05/2018 06/05/2018 Inactive Diflucan 150 mg tablet RxNorm: 526368 1 Tablet(s) PO daily 07/02/2018 Inactive Protonix 40 mg tablet,delayed release RxNorm: 500178 1 Tablet(s) PO BID x 1 week then daily 03/26/2018 No Stop Date Active Phenergan with Codeine Syrup RxNorm: 5-10 ML PO QID as needed cough 03/19/2018 No Stop Date Active promethazine 25 mg tablet RxNorm: 935441 Tablet(s) TAKE ONE TABLET BY MOUTH EVERY 6 TO 8 HOURS NEEDED 03/15/20182018 Inactive Singulair 10 mg tablet RxNorm: 960438 1 Tablet(s) PO daily 04/12/2018 Inactive metoprolol succinate ER 100 mg tablet,extended release 24 hr RxNorm: 294223 1 Tablet(s) PO daily 03/07/2018 04/05/2018 Inactive Zithromax Z-Rashid 250 mg tablet RxNorm: 603275 1 Tablet(s) PO UD 03/07/2018 03/07/2018 Inactive prednisone 20 mg tablet RxNorm: 175868 2 Tablet(s) PO daily 03/11/2018 Inactive albuterol sulfate 2.5 mg/3 mL (0.083 %) solution for nebulization RxNorm: 377390 3 Milliliter(s) INH Q4-6H as needed dyspnea 02/19/2018 No Stop Date Active Diflucan 150 mg tablet RxNorm: 989744 Tablet(s) TAKE ONE TABLET BY MOUTH ONCE DAILY FOR 7 DAYS THEN TAKE ONE TABLET BY MOUTH ONCE A WEEK 06/04/2018 Inactive Levaquin 500 mg tablet RxNorm: 272861 1 Tablet(s) PO daily 09/201702/25/2018 Inactive prednisone 20 mg tablet RxNorm: 701726 2 Tablet(s) PO daily 09/201702/23/2018 Inactive Kenalog 40 mg/mL suspension for injection RxNorm: 0085040 15. Milliliter(s) Inj 02/19/2018 02/19/2018 Inactive hydrocodone 7.5 mg-acetaminophen 325 mg tablet RxNorm: 420566 1 Tablet(s) PO Q4H as needed 02/05/2018 03/06/2018 Inactive clindamycin HCl 300 mg capsule RxNorm: 646821 1 Capsule(s) PO TID 01/09/2018 01/15/2018 Inactive promethazine 25 mg tablet RxNorm: 102831 Tablet(s) TAKE ONE TABLET BY MOUTH EVERY 6 TO 8 HOURS NEEDED 01/08/20182017 Inactive Diflucan 150 mg tablet RxNorm: 501393 Tablet(s) TAKE ONE TABLET BY MOUTH ONCE DAILY FOR 7 DAYS THEN TAKE ONE TABLET BY MOUTH ONCE A WEEK 02/18/2018 Inactive Bactrim DS 800 mg-160 mg tablet RxNorm: 993727 1 Tablet(s) PO BID 01/08/2018 01/17/2018 Inactive prednisone 20 mg tablet RxNorm: 923863 2 Tablet(s) PO daily 01/201811/27/2017 Inactive Zithromax Z-Rashid 250 mg tablet RxNorm: 864031 1 Tablet(s) PO UD 09/05/2017 02/11/2018 Inactive Kenalog 40 mg/mL suspension for injection RxNorm: 6250931 Milliliter(s) Inj 09/05/2017 09/05/2017 Inactive prednisone 20 mg tablet RxNorm: 197502 2 Tablet(s) PO daily 09/09/2017 Inactive ibuprofen 800 mg tablet RxNorm: 706891 1 Tablet(s) PO TID 07/2702/21/2018 Inactive metoprolol succinate ER 100 mg tablet,extended release 24 hr RxNorm: 382970 TAKE ONE TABLET BY MOUTH ONCE DAILY 06/20/2017 No Stop Date Active alprazolam 0.5 mg tablet RxNorm: 338117 1 Tablet(s) PO Q8 as needed 06/20/2017 07/09/2017 Inactive Zithromax Z-Rashid 250 mg tablet RxNorm: 561925 1 Tablet(s) PO UD 06/15/2017 07/25/2017 Inactive Xopenex HFA 45 mcg/actuation aerosol inhaler RxNorm: 068883 INHALE ONE PUFF INTO LUNGS NEEDED 06/13/2017 07/14/2017 Inactive Xopenex 1.25 mg/3 mL solution for nebulization RxNorm: 703248 Milliliter(s) USE ONE VIAL IN NEBULIZER THREE TIMES DAILY 06/08/2017 No Stop Date Active Flovent HFA 44 mcg/actuation aerosol inhaler RxNorm: 733280 2 Puff(s) INH BID 06/08/2017 No Stop Date Active potassium chloride ER 10 mEq tablet,extended release RxNorm: 942598 1 Tablet(s) PO daily 06/08/2017 06/10/2017 Inactive Lasix 20 mg tablet RxNorm: 575866 1 Tablet(s) PO daily 201606/10/2017 Inactive Xopenex HFA 45 mcg/actuation aerosol inhaler RxNorm: 670326 INHALE ONE PUFF INTO LUNGS NEEDED 06/08/2017 06/12/2017 Inactive triamcinolone acetonide 0.025 % topical cream RxNorm: 9604376 1 Application TOP BID 06/07/2017 No Stop Date Active ibuprofen 800 mg tablet RxNorm: 712558 1 Tablet(s) PO TID 06/0707/06/2017 Inactive cyclobenzaprine 5 mg tablet RxNorm: 832898 1/2 Tablet(s) PO TID as needed muscle spasms 05/28/2017 06/01/2017 Inactive Diflucan 150 mg tablet RxNorm: 233279 TAKE ONE TABLET BY MOUTH ONCE DAILY FOR 7 DAYS THEN TAKE ONE TABLET BY MOUTH ONCE A WEEK 05/28/2017 01/07/2018 Inactive bumetanide 1 mg tablet RxNorm: 981781 TAKE ONE TABLET BY MOUTH TWICE DAILY 05/25/2017 No Stop Date Active meloxicam 7.5 mg tablet RxNorm: 847393 1 Tablet(s) PO daily as needed 05/25/2017 07/23/2017 Inactive Xopenex 1.25 mg/3 mL solution for nebulization RxNorm: 590455 USE ONE VIAL IN NEBULIZER THREE TIMES DAILY 05/25/2017 Inactive Protonix 40 mg tablet,delayed release RxNorm: 249007 1 Tablet(s) PO daily 05/08/2017 11/03/2017 Inactive Protonix 40 mg tablet,delayed release RxNorm: 582126 1 Tablet(s) PO daily 05/04/2017 05/03/2017 Inactive Protonix 40 mg tablet,delayed release RxNorm: 879328 1 Tablet(s) PO daily 05/04/2017 05/07/2017 Inactive meloxicam 7.5 mg tablet RxNorm: 462695 1 Tablet(s) PO daily as needed 04/25/2017 04/24/2017 Inactive meloxicam 7.5 mg tablet RxNorm: 673663 1 Tablet(s) PO daily as needed 04/25/2017 05/04/2017 Inactive promethazine 25 mg tablet RxNorm: 338156 TAKE ONE TABLET BY MOUTH EVERY 6 TO 8 HOURS NEEDED 04/25/2017 01/07/2018 Inactive Kenalog 40 mg/mL suspension for injection RxNorm: 0248850 1 Milliliter(s) Inj 04/24/2017 04/24/2017 Inactive cyclobenzaprine 5 mg tablet RxNorm: 313034 1/2 Tablet(s) PO TID as needed muscle spasms 04/24/2017 04/28/2017 Inactive Xopenex HFA 45 mcg/actuation aerosol inhaler RxNorm: 932005 INHALE ONE PUFF INTO LUNGS NEEDED 03/30/2017 04/14/2017 Inactive Humalog KwikPen 200 unit/mL (3 mL) subcutaneous RxNorm: 0766014 INJECT 35 UNITS SUBCUTANEOUSLY BEFORE MEAL(S) 03/30/2017 06/05/2017 Inactive promethazine 25 mg tablet RxNorm: 743005 Tablet(s) TAKE ONE TABLET BY MOUTH EVERY 6 TO 8 HOURS NEEDED 03/12/20172016 Inactive cyclobenzaprine 10 mg tablet RxNorm: 990783 TAKE ONE TABLET BY MOUTH ONCE DAILY NEEDED 03/06/2017 03/15/2017 Inactive lidocaine 5 % topical patch RxNorm: 9570311 USE ONE PATCH TOPICALLY DAILY. 12 HOURS ON AND THEN 12 HOURS OFF. 03/06/2017 03/15/2017 Inactive Humalog KwikPen 200 unit/mL (3 mL) subcutaneous RxNorm: 5877538 INJECT 35 UNITS SUBCUTANEOUSLY BEFORE MEAL(S) 02/20/2017 03/25/2017 Inactive promethazine 25 mg tablet RxNorm: 741395 Tablet(s) TAKE ONE TABLET BY MOUTH EVERY 6 TO 8 HOURS NEEDED 02/20/20172016 Inactive Xopenex HFA 45 mcg/actuation aerosol inhaler RxNorm: 698062 INHALE ONE PUFF INTO LUNGS NEEDED 02/20/2017 03/07/2017 Inactive bumetanide 1 mg tablet RxNorm: 140053 TAKE ONE TABLET BY MOUTH TWICE DAILY 02/15/2017 05/15/2017 Inactive bumetanide 1 mg tablet RxNorm: 839131 TAKE ONE TABLET BY MOUTH TWICE DAILY 01/15/2017 02/13/2017 Inactive metoprolol succinate ER 100 mg tablet,extended release 24 hr RxNorm: 219027 TAKE ONE TABLET BY MOUTH ONCE DAILY 01/11/2017 06/19/2017 Inactive Zithromax Z-Rashid 250 mg tablet RxNorm: 529451 1 Tablet(s) PO UD 01/09/2017 03/13/2017 Inactive meclizine 25 mg tablet RxNorm: 269628 1 Tablet(s) PO TID as needed 01/09/2017 01/18/2017 Inactive Kenalog 40 mg/mL suspension for injection RxNorm: 0923812 Milliliter(s) Inj 01/09/2017 01/09/2017 Inactive promethazine 25 mg tablet RxNorm: 347783 Tablet(s) TAKE ONE TABLET BY MOUTH EVERY 6 TO 8 HOURS NEEDED 12/29/20162016 Inactive Voltaren 1 % topical gel RxNorm: 715610 APPLY TOPICALLY TO AFFECTED AREA TWICE DAILY 12/25/2016 01/13/2017 Inactive cyclobenzaprine 10 mg tablet RxNorm: 752307 TAKE ONE TABLET BY MOUTH NEEDED 12/22/2016 12/31/2016 Inactive lidocaine 5 % topical patch RxNorm: 3090774 USE ONE PATCH TOPICALLY DAILY. 12 HOURS ON AND THEN 12 HOURS OFF. 12/22/2016 12/31/2016 Inactive hydrocodone 7.5 mg-acetaminophen 325 mg tablet RxNorm: 448711 1 Tablet(s) PO Q4H as needed 12/22/2016 01/20/2017 Inactive bumetanide 1 mg tablet RxNorm: 699551 TAKE ONE TABLET BY MOUTH TWICE DAILY 12/17/2016 01/14/2017 Inactive promethazine 25 mg tablet RxNorm: 673099 Tablet(s) TAKE ONE TABLET BY MOUTH EVERY 6 TO 8 HOURS NEEDED 11/16/20162016 Inactive spironolactone 50 mg tablet RxNorm: 780180 TAKE ONE TABLET BY MOUTH TWICE DAILY 11/15/2016 05/13/2017 Inactive Basaglar KwikPen 100 unit/mL (3 mL) subcutaneous RxNorm: 5694581 Unit(s) INJECT 35 UNITS IN THE MORNING AND 50 UNITS IN THE EVENING SUBCUTANEOUSLY 11/15/2016 03/14/2017 Inactive cyclobenzaprine 10 mg tablet RxNorm: 436478 TAKE ONE TABLET BY MOUTH NEEDED 11/15/2016 12/04/2016 Inactive lidocaine 5 % topical patch RxNorm: 3228369 1 Patch TOP daily . 12 HOURS ON, 12 HOURS OFF 11/15/2016 12/04/2016 Inactive lidocaine 4 % topical patch RxNorm: 2991034 1 Patch TOP on for 12 hours and off for 12 hours 11/14/2016 11/14/2016 Inactive promethazine 25 mg tablet RxNorm: 656255 TAKE ONE TABLET BY MOUTH EVERY 6 TO 8 HOURS NEEDED 11/14/2016 11/15/2016 Inactive Basaglar KwikPen 100 unit/mL (3 mL) subcutaneous RxNorm: 5525820 INJECT 35 UNITS IN THE MORNING AND 50 UNITS IN THE EVENING SUBCUTANEOUSLY 11/14/2016 Inactive cyclobenzaprine 10 mg tablet RxNorm: 560990 TAKE ONE TABLET BY MOUTH NEEDED 11/14/2016 11/14/2016 Inactive spironolactone 50 mg tablet RxNorm: 619665 TAKE ONE TABLET BY MOUTH TWICE DAILY 11/14/2016 11/14/2016 Inactive Diflucan 150 mg tablet RxNorm: 965331 1 Tablet(s) PO as needed prophylactic after sexual intercourse 10/30/2016 No Stop Date Active hydrocodone 7.5 mg-acetaminophen 325 mg tablet RxNorm: 330897 1 Tablet(s) PO Q4H as needed 10/30/2016 11/28/2016 Inactive clotrimazole 100 mg vaginal tablet RxNorm: 024111 1 Tablet(s) VAG QW 10/30/2016 11/28/2016 Inactive Humalog KwikPen 200 unit/mL (3 mL) subcutaneous RxNorm: 8508434 35 Unit(s) SQ AC 10/30/2016 02/19/2017 Inactive QS 30 day supply Bydureon 2 mg/0.65 mL subcutaneous pen injector RxNorm: 8290592 2 Milligram(s) SQ QW 10/30/2016 11/28/2016 Inactive Basaglar KwikPen 100 unit/mL (3 mL) subcutaneous RxNorm: 8098262 Unit(s) SQ 35 units in the morning and 50 units in the evening 10/30/2016 11/13/2016 Inactive QS 30 day supply cyclobenzaprine 10 mg tablet RxNorm: 634474 TAKE ONE TABLET BY MOUTH NEEDED 10/27/2016 11/05/2016 Inactive Diflucan 150 mg tablet RxNorm: 869204 1 Tablet(s) PO daily x 7 days then once a week 10/27/2016 10/29/2016 Inactive promethazine 25 mg tablet RxNorm: 235937 TAKE ONE TABLET BY MOUTH EVERY 6 TO 8 HOURS NEEDED 10/27/2016 11/10/2016 Inactive Diflucan 150 mg tablet RxNorm: 481359 1 Tablet(s) PO daily x 7 days then once a week 10/09/2016 10/15/2016 Inactive Diflucan 150 mg tablet RxNorm: 854715 1 Tablet(s) PO daily 10/201609/26/2016 Inactive Cipro 500 mg tablet RxNorm: 613464 1 Tablet(s) PO BID 201609/21/2016 Inactive Flagyl 500 mg tablet RxNorm: 125295 1 Tablet(s) PO TID 201609/21/2016 Inactive Diflucan 150 mg tablet RxNorm: 025121 1 Tablet(s) PO daily 09/12/2016 Inactive hydrocodone 7.5 mg-acetaminophen 325 mg tablet RxNorm: 644165 1 Tablet(s) PO Q4H as needed 07/12/2016 08/10/2016 Inactive Xopenex 1.25 mg/3 mL solution for nebulization RxNorm: 297376 3 Milliliter(s) INH TID 06/16/2016 05/24/2017 Inactive cefdinir 300 mg capsule RxNorm: 422767 1 Capsule(s) PO BID 06/25/2016 Inactive Mobic 7.5 mg tablet RxNorm: 319183 1 Tablet(s) PO daily 201506/25/2016 Inactive Levaquin 500 mg tablet RxNorm: 617865 1 Tablet(s) PO daily 06/22/2016 Inactive cyclobenzaprine 10 mg tablet RxNorm: 813555 1 Tablet(s) PO PRN as needed 06/14/2016 06/23/2016 Inactive promethazine 25 mg tablet RxNorm: 242890 TAKE ONE TABLET BY MOUTH EVERY 6 TO 8 HOURS NEEDED 06/14/2016 06/28/2016 Inactive Xopenex HFA 45 mcg/actuation aerosol inhaler RxNorm: 045146 1 Puff(s) INH PRN 06/14/2016 07/15/2016 Inactive pen needle, diabetic 32 gauge x 5/16" RxNorm: 1 use Miscellaneous AC & HS 06/13/2016 No Stop Date Active QS 30 day supply Humalog KwikPen 200 unit/mL (3 mL) subcutaneous RxNorm: 8124483 10 Unit(s) SQ AC 06/13/2016 10/29/2016 Inactive QS 30 day supply Basaglar KwikPen 100 unit/mL (3 mL) subcutaneous RxNorm: 4193736 22 units in the morning and 35 in the evening. Unit(s) SQ 06/13/2016 10/29/2016 Inactive QS 30 day supply Tivorbex 20 mg capsule RxNorm: 1255561 1 Capsule(s) PO TID as needed 06/13/2016 06/13/2016 Inactive metoprolol succinate ER 100 mg tablet,extended release 24 hr RxNorm: 799028 TAKE ONE TABLET BY MOUTH ONCE DAILY 06/13/2016 10/10/2016 Inactive hydrocodone 7.5 mg-acetaminophen 325 mg tablet RxNorm: 161305 1 Tablet(s) PO Q4H as needed 06/13/2016 07/11/2016 Inactive Voltaren 1 % topical gel RxNorm: 792600 APPLY TOPICALLY TO AFFECTED AREA TWICE DAILY 05/30/2016 07/08/2016 Inactive alprazolam 0.5 mg tablet RxNorm: 250712 1 Tablet(s) PO Q8 as needed 05/19/2016 No Stop Date Active cyclobenzaprine 10 mg tablet RxNorm: 179047 1 Tablet(s) PO PRN as needed 05/19/2016 05/28/2016 Inactive bumetanide 1 mg tablet RxNorm: 159005 TAKE ONE TABLET BY MOUTH TWICE DAILY 05/19/2016 06/17/2016 Inactive Sprintec (28) 0.25 mg-35 mcg tablet RxNorm: 895520 1 Tablet(s) PO UD 05/08/2016 No Stop Date Active Lantus Solostar 100 unit/mL (3 mL) subcutaneous insulin pen RxNorm: 972594 Unit( s) SQ UD 15units qam 30 units qhs 05/08/2016 No Stop Date Active Humalog KwikPen 200 unit/mL (3 mL) subcutaneous RxNorm: 9509331 10 Unit(s) SQ AC 05/08/2016 06/12/2016 Inactive bumetanide 1 mg tablet RxNorm: 297254 TAKE ONE TABLET BY MOUTH TWICE DAILY 04/28/2016 05/18/2016 Inactive Voltaren 1 % topical gel RxNorm: 270681 1 Application TOP BID 04/28/2016 05/07/2016 Inactive cyclobenzaprine 10 mg tablet RxNorm: 055991 1 Tablet(s) PO PRN as needed 04/28/2016 05/07/2016 Inactive hydrocodone 7.5 mg-acetaminophen 325 mg tablet RxNorm: 935591 1 Tablet(s) PO Q4H as needed 04/18/2016 05/16/2016 Inactive Lantus Solostar 100 unit/mL (3 mL) subcutaneous insulin pen RxNorm: 633474 Unit( s) SQ UD 10 units QHS x5 days, if sugars are over 200 increase to 15 units x 5 days, if sugars over 200 increase to 20 units. 04/14/2016 05/07/2016 Inactive lidocaine 4 % topical patch RxNorm: 5181461 1 Patch TOP on for 12 hours and off for 12 hours 04/13/2016 11/13/2016 Inactive Voltaren 1 % topical gel RxNorm: 832742 1 Application TOP BID 04/10/2016 04/27/2016 Inactive metformin ER 500 mg 24 hr tablet,extended release RxNorm: 827475 1 Tablet(s) PO daily 04/06/2016 05/05/2016 Inactive Kenalog 40 mg/mL suspension for injection RxNorm: 3073210 1 Milliliter(s) Inj 04/06/2016 04/06/2016 Inactive cyclobenzaprine 10 mg tablet RxNorm: 849264 1 Tablet(s) PO PRN as needed 04/06/2016 04/27/2016 Inactive WelChol 3.75 gram oral powder packet RxNorm: 395163 1 packet PO daily 04/06/2016 07/04/2016 Inactive alprazolam 0.5 mg tablet RxNorm: 729928 1 Tablet(s) PO Q8 as needed 03/30/2016 06/19/2017 Inactive Levaquin 500 mg tablet RxNorm: 736096 1 Tablet(s) PO daily 04/05/2016 Inactive metoprolol succinate ER 100 mg tablet,extended release 24 hr RxNorm: 308892 TAKE ONE TABLET BY MOUTH ONCE DAILY 03/16/2016 06/12/2016 Inactive Levaquin 500 mg tablet RxNorm: 183062 1 Tablet(s) PO daily 03/14/2016 Inactive prednisone 20 mg tablet RxNorm: 242596 2 Tablet(s) PO daily 03/12/2016 Inactive Xopenex HFA 45 mcg/actuation aerosol inhaler RxNorm: 163668 1 Puff(s) INH PRN 02/28/2016 06/13/2016 Inactive Phenergan with Codeine Syrup RxNorm: 5-10 ML PO QID as needed cough 02/28/2016 03/18/2018 Inactive Kenalog 40 mg/mL suspension for injection RxNorm: 4195468 1 Milliliter(s) Inj 02/28/2016 02/28/2016 Inactive Zithromax Z-Rashid 250 mg tablet RxNorm: 910733 1 Tablet(s) PO UD 02/28/2016 03/27/2016 Inactive alprazolam 0.5 mg tablet RxNorm: 838750 1 Tablet(s) PO Q8 as needed 02/24/2016 06/19/2017 Inactive glipizide 5 mg tablet RxNorm: 484659 1 Tablet(s) PO daily 201505/16/2016 Inactive Actos 15 mg tablet RxNorm: 876033 1 Tablet(s) PO daily 201502/16/2016 Inactive gabapentin 100 mg capsule RxNorm: 375718 1 Capsule(s) PO QHS 03/12/2016 Inactive gabapentin 100 mg capsule RxNorm: 642732 1 Capsule(s) PO QHS 01/12/2016 Inactive Bydureon 2 mg/0.65 mL subcutaneous pen injector RxNorm: 3743195 1 Milliliter(s) SQ QW 01/12/2016 01/11/2016 Inactive Bydureon 2 mg/0.65 mL subcutaneous pen injector RxNorm: 3066627 2/0.65ml Milligram (s) SQ QW 01/12/2016 05/16/2016 Inactive Bydureon 2 mg/0.65 mL subcutaneous pen injector RxNorm: 0543123 1 Milliliter(s) SQ QW 01/12/2016 01/11/2016 Inactive bumetanide 1 mg tablet RxNorm: 998589 TAKE ONE TABLET BY MOUTH TWICE DAILY 01/10/2016 04/08/2016 Inactive promethazine 25 mg tablet RxNorm: 940761 Tablet(s) Tablet(s) 1 Tablet(s) PO Q6-8H as needed 12/16/2015 04/13/2016 Inactive promethazine 25 mg tablet RxNorm: 992568 Tablet(s) 1 Tablet(s) PO Q6-8H as needed 12/10/2015 12/15/2015 Inactive Trulicity 0.75 mg/0.5 mL subcutaneous pen injector RxNorm: 3055213 INJECT ONE- HALF ML SUBCUTANEOUSLY ONCE A WEEK 12/10/2015 01/11/2016 Inactive glipizide 5 mg tablet RxNorm: 834001 1 Tablet(s) PO daily 201501/17/2016 Inactive bumetanide 1 mg tablet RxNorm: 686894 TAKE ONE TABLET BY MOUTH TWICE DAILY 12/10/2015 01/08/2016 Inactive promethazine 25 mg tablet RxNorm: 484420 Tablet(s) 1 Tablet(s) PO Q6-8H as needed 11/18/2015 12/09/2015 Inactive promethazine 25 mg tablet RxNorm: 795737 1 Tablet(s) PO Q6-8H as needed 11/16/2015 11/17/2015 Inactive glipizide 5 mg tablet RxNorm: 561174 1/2 Tablet(s) PO daily 12/15/2015 Inactive promethazine 25 mg tablet RxNorm: 417516 Tablet(s) 1 Tablet(s) PO Q6-8H as needed 11/11/2015 12/10/2015 Inactive metoprolol tartrate 50 mg tablet RxNorm: 142211 1 Tablet(s) PO BID 11/11/2015 02/08/2016 Inactive Trulicity 0.75 mg/0.5 mL subcutaneous pen injector RxNorm: 7973509 .5 Milliliter(s ) SQ QW 11/11/2015 01/11/2016 Inactive promethazine 25 mg tablet RxNorm: 396036 1 Tablet(s) PO Q6-8H as needed 10/28/2015 11/10/2015 Inactive nystatin 100,000 unit/gram topical cream RxNorm: 598954 1 Gram(s) TOP BID 10/27/2015 No Stop Date Active alprazolam 0.5 mg tablet RxNorm: 533225 1 Tablet(s) PO Q8 as needed 10/27/2015 03/29/2016 Inactive hydrocodone 7.5 mg-acetaminophen 325 mg tablet RxNorm: 797000 1 Tablet(s) PO Q4H as needed 10/27/2015 11/25/2015 Inactive Trulicity 0.75 mg/0.5 mL subcutaneous pen injector RxNorm: 9326223 .5 Milliliter(s ) SQ QW 10/27/2015 11/10/2015 Inactive glipizide 5 mg tablet RxNorm: 732573 1 Tablet(s) PO daily 201511/25/2015 Inactive hydrocodone 7.5 mg-acetaminophen 325 mg tablet RxNorm: 847639 1 Tablet(s) PO Q4H as needed 10/26/2015 10/26/2015 Inactive alprazolam 0.5 mg tablet RxNorm: 870473 1 Tablet(s) PO PRN as needed 10/26/2015 10/26/2015 Inactive promethazine 25 mg tablet RxNorm: 142803 1 Tablet(s) PO Q6-8H as needed 10/26/2015 11/15/2015 Inactive glipizide 5 mg tablet RxNorm: 234897 1/2 Tablet(s) PO daily 10/26/2015 Inactive cefdinir 300 mg capsule RxNorm: 188645 1 Capsule(s) PO BID 10/14/2015 Inactive prednisone 20 mg tablet RxNorm: 333897 2 Tablet(s) PO daily 10/09/2015 Inactive Diflucan 150 mg tablet RxNorm: 047427 1 Tablet(s) PO daily 10/11/2015 Inactive Invokamet 50 mg-500 mg tablet RxNorm: 9645592 1 Tablet(s) PO daily 10/05/2015 11/03/2015 Inactive alprazolam 0.5 mg tablet RxNorm: 183560 1 Tablet(s) PO PRN as needed 10/01/2015 02/23/2016 Inactive promethazine 25 mg tablet RxNorm: 468342 1 Tablet(s) PO Q6-8H as needed 09/30/2015 10/25/2015 Inactive bumetanide 1 mg tablet RxNorm: 512152 TAKE ONE TABLET BY MOUTH TWICE DAILY 09/30/2015 10/29/2015 Inactive bumetanide 1 mg tablet RxNorm: 089370 TAKE ONE TABLET BY MOUTH TWICE DAILY 09/20/2015 12/18/2015 Inactive bumetanide 1 mg tablet RxNorm: 053117 1 Tablet(s) PO BID 201510/19/2015 Inactive metoprolol succinate ER 100 mg tablet,extended release 24 hr RxNorm: 406401 1 Tablet(s) PO daily 09/16/2015 03/13/2016 Inactive spironolactone 50 mg tablet RxNorm: 746465 1 Tablet(s) PO BID 09/16/2015 03/13/2016 Inactive alprazolam 0.5 mg tablet RxNorm: 538232 1 Tablet(s) PO PRN as needed 09/16/2015 10/25/2015 Inactive hydrocodone 7.5 mg-acetaminophen 325 mg tablet RxNorm: 031536 1 Tablet(s) PO Q4H as needed 09/16/2015 10/25/2015 Inactive Invokamet 50 mg-1,000 mg tablet RxNorm: 3063998 1 Tablet(s) PO daily 09/06/2015 09/05/2015 Inactive Invokamet 50 mg-1,000 mg tablet RxNorm: 5451315 1 Tablet(s) PO daily 09/06/2015 12/04/2015 Inactive promethazine 25 mg tablet RxNorm: 317866 TAKE ONE TABLET BY MOUTH EVERY 6 TO 8 HOURS NEEDED 09/01/2015 09/16/2015 Inactive promethazine 25 mg tablet RxNorm: 198901 1 Tablet(s) PO Q6-8H as needed 08/27/2015 09/25/2015 Inactive metoprolol succinate ER 100 mg tablet,extended release 24 hr RxNorm: 752058 1 Tablet(s) PO daily 08/20/2015 09/15/2015 Inactive bumetanide 1 mg tablet RxNorm: 989059 1 Tablet(s) PO BID 201509/18/2015 Inactive Bumex 1 mg tablet RxNorm: 088072 1 Tablet(s) PO BID 201511/15/2015 Inactive Kenalog 40 mg/mL suspension for injection RxNorm: 2527831 Milliliter(s) Inj 08/20/2015 08/20/2015 Inactive bumetanide 1 mg tablet RxNorm: 778993 1 Tablet(s) PO BID 201508/19/2015 Inactive Levaquin 500 mg tablet RxNorm: 805285 1 Tablet(s) PO daily 09/201508/26/2015 Inactive promethazine 25 mg tablet RxNorm: 106406 1 Tablet(s) PO Q6-8H as needed 08/06/2015 08/26/2015 Inactive metformin 500 mg tablet RxNorm: 765859 Tablet(s) PO 500mg in the morning and 1000mg at night No Start Date 09/16/2015 Inactive Lantus Solostar 100 unit/mL (3 mL) subcutaneous insulin pen RxNorm: 963422 Unit( s) SQ UD 10 units QHS x 5 days, if blood sugars are above 200 increase to 15 units x 5 days, if still 200 increase to 20 units. No Start Date 04/13/2016 Inactive alprazolam 0.5 mg tablet RxNorm: 918627 1 Tablet(s) PO PRN as needed No Start Date 09/15/2015 Inactive cyclobenzaprine 10 mg tablet RxNorm: 505144 1 Tablet(s) PO PRN as needed No Start Date 04/05/2016 Inactive lidocaine 4 % topical patch RxNorm: 2011368 1 Patch TOP on for 12 hours and off for 12 hours No Start Date 04/12/2016 Inactive metoprolol tartrate 50 mg tablet RxNorm: 691919 1 Tablet(s) PO BID No Start Date 11/10/2015 Inactive spironolactone 50 mg tablet RxNorm: 594945 1 Tablet(s) PO BID No Start Date 09/15/2015 Inactive hydrocodone 7.5 mg-acetaminophen 325 mg tablet RxNorm: 332438 1 Tablet(s) PO Q4H as needed No Start Date 09/15/2015 Inactive promethazine 25 mg tablet RxNorm: 261107 1 Tablet(s) PO PRN as needed No Start Date 08/05/2015 Inactive Medication Administered Medication Codes Instructions Start Date Status ceftriaxone 500 mg solution for injection RxNorm: 3400439 06/05/2018 No longer Active Kenalog 40 mg/mL suspension for injection RxNorm: 9678737 15.Milliliter 02/19/2018 No longer Active Kenalog 40 mg/mL suspension for injection RxNorm: 3741764 Milliliter 09/05/2017 No longer Active Kenalog 40 mg/mL suspension for injection RxNorm: 1099897 1Milliliter 04/24/2017 No longer Active Kenalog 40 mg/mL suspension for injection RxNorm: 9875844 Milliliter 01/09/2017 No longer Active Kenalog 40 mg/mL suspension for injection RxNorm: 0803097 1Milliliter 04/06/2016 No longer Active Kenalog 40 mg/mL suspension for injection RxNorm: 0534400 1Milliliter 02/28/2016 No longer Active Kenalog 40 mg/mL suspension for injection RxNorm: 4189971 Milliliter 08/20/2015 No longer Active Immunizations Vaccine Codes Date Status Influenza CVX: 141 03/14/2018 completed Influenza CVX: 141 04/24/2017 completed Pneumococcal (Adult) CVX: 33 04/13/2016 completed Influenza CVX: 141 03/30/2016 completed Assessments Condition Codes Effective Dates Cellulitis of right axilla ICD-10: L03.111 ICD-9: 682.3 06/28/2018 Diarrhea, unspecified ICD-10: R19.7 ICD-9: 787.91 06/28/2018 Type 2 diabetes mellitus with hyperglycemia ICD-10: E11.65 ICD-9: 250.02 06/05/2018 Gastro-esophageal reflux disease without esophagitis ICD-10 : K21.9 ICD-9: 530.81 03/26/2018 Cough ICD-10: R05 ICD-9: 786.2 03/26/2018 Other allergic rhinitis ICD-10: J30.89 ICD-9: 477.8 03/26/2018 Other hypertrophic disorders of the skin ICD-10: L91.8 ICD-9: 701.9 03/14/2018 Encounter for immunization ICD-10: Z23 ICD-9: V04.81 03/14/2018 Acute laryngopharyngitis ICD-10: J06.0 ICD-9: 465.0 03/07/2018 Acute bronchitis due to other specified organisms ICD-10: J20.8 ICD-9: 466.0 02/19/2018 Rash and other nonspecific skin eruption ICD-10: R21 ICD-9: 782.1 01/08/2018 Candidiasis of vulva and vagina ICD-10: B37.3 ICD-9: 112.1 01/08/2018 Sacrococcygeal disorders, not elsewhere classified ICD-10: M53.3 ICD-9: 724.79 11/23/2017 Low back pain ICD-10: M54.5 ICD-9: 724.2 11/23/2017 Polycystic ovarian syndrome ICD-10: E28.2 ICD-9: 256.4 06/13/2017 Other obesity due to excess calories ICD-10: E66.09 ICD-9: 278.00 06/13/2017 Pain in left foot ICD-10: M79.672 ICD-9: 729.5 06/07/2017 Localized edema ICD-10: R60.0 ICD-9: 782.3 06/07/2017 Dyspnea, unspecified ICD-10: R06.00 ICD-9: 786.09 06/07/2017 Sacroiliitis, not elsewhere classified ICD-10: M46.1 ICD-9: 720.2 04/24/2017 Acute suppurative otitis media without spontaneous rupture of ear drum, right ear ICD-10: H66.001 ICD-9: 382.00 01/09/2017 Umbilical hernia without obstruction or gangrene ICD-10: K42.9 ICD-9: 553.1 09/12/2016 Epigastric pain ICD-10: R10.13 ICD-9: 789.06 09/05/2016 Type 2 diabetes mellitus without complications ICD-10: E11.9 ICD-9: 250.00 05/05/2016 Encounter for immunization ICD-10: Z23 ICD-9: V05.9 04/13/2016 Pain in right shoulder ICD-10: M25.511 ICD-9: 719.41 04/10/2016 Other muscle spasm ICD-10: M62.838 ICD-9: 728.85 04/06/2016 Other acute sinusitis ICD-10: J01.80 ICD-9: 461.8 03/08/2016 Acne vulgaris ICD-10: L70.0 ICD-9: 706.1 03/08/2016 Morbid (severe) obesity due to excess calories ICD-10: E66.01 ICD-9: 278.01 03/08/2016 Localized enlarged lymph nodes ICD-10: R59.0 ICD-9: 785.6 02/28/2016 Encounter for gynecological examination (general) (routine) without abnormal findings ICD-10: Z01.419 ICD-9: V72.31 12/23/2015 Excessive and frequent menstruation with irregular cycle ICD -10: N92.1 ICD-9: 626.2 12/23/2015 Other insomnia ICD-10: G47.09 ICD-9: 327.09 10/13/2015 Acute recurrent maxillary sinusitis ICD-10: J01.01 ICD-9: 461.0 10/05/2015 Allergic rhinitis due to pollen ICD-10: J30.1 ICD-9: 477.0 10/05/2015 Other abnormal glucose ICD-10: R73.09 ICD-9: 790.29 09/01/2015 Other skin changes ICD-10: R23.8 ICD-9: 709.8 09/01/2015 Essential (primary) hypertension ICD-10: I10 ICD-9: 401.9 08/20/2015 Snoring ICD-10: R06.83 ICD-9: 786.09 08/03/2015 Obstructive sleep apnea (adult) (pediatric) ICD-10: G47.33 ICD-9: 327.23 08/03/2015 Reason For Visit Reason For Visit Effective Dates Notes skin lesion 06/28/2018 skin lesion 06/17/2018 skin lesion 06/05/2018 chest congestion 03/26/2018 cough 03/14/2018 cough 03/07/2018 sinus congestion 02/19/2018 rash 01/08/2018 back pain 11/23/2017 sinus congestion 09/05/2017 shortness of breath 06/07/2017 rash vaccination against [...] Observation Code Item Item Code Result Date %Hba1C Esa415 % HbA1c 89294-4 8.4 % 06/06/2018 %Hba1C Kpt164 Gluc Ave 194 mg/dL 06/06/2018 %Hba1C Rds811 % HbA1c 68593-4 9.8 % 03/14/2018 %Hba1C Fac702 Gluc Ave 235 mg/dL 03/14/2018 Cbc With Differential Ord2 WBC 16.74 K/ul 03/14/2018 Cbc With Differential Ord2 RBC 5.27 M/ul 03/14/2018 Cbc With Differential Ord2 HGB 15.7 g/dl 03/14/2018 Cbc With Differential Ord2 Neut% 67.5 % 03/14/2018 Cbc With Differential Ord2 HCT 47.7 % 03/14/2018 Cbc With Differential Ord2 Lymph% 25.7 % 03/14/2018 Cbc With Differential Ord2 MCV 90.5 fl 03/14/2018 Cbc With Differential Ord2 [place]% 5.6 % 03/14/2018 Cbc With Differential Ord2 MCH 29.8 pg 03/14/2018 Cbc With Differential Ord2 Eos% 0.9 % 03/14/2018 Cbc With Differential Ord2 MCHC 32.9 pg 03/14/2018 Cbc With Differential Ord2 Baso% 0.3 % 03/14/2018 Cbc With Differential Ord2 PLT 479 K/ul 03/14/2018 Cbc With Differential Ord2 RDW 14.2 % 03/14/2018 Cbc With Differential Ord2 Neut ABS# 11.29 K/ul 03/14/2018 Cbc With Differential Ord2 Lymph ABS# 4.31 K/ul 03/14/2018 Cbc With Differential Ord2 [place] ABS# 0.9 K/ul 03/14/2018 Cbc With Differential Ord2 Eos ABS# 0.2 K/ul 03/14/2018 Cbc With Differential Ord2 Baso ABS# 0.1 K/ul 03/14/2018 Tsh Ord6 TSH (3rd IS) 1.09 uIU/mL 03/14/2018 Comp Metabolic Lgk153 NA 137 mEq/L 03/14/2018 Comp Metabolic Nlj945 K 4.6 mEq/L 03/14/2018 Comp Metabolic Cbn753 CL 100 mEq/L 03/14/2018 Comp Metabolic Rzo843 CO2 27.0 mEq/L 03/14/2018 Comp Metabolic Lmi959 ANION GAP 15 03/14/2018 Comp Metabolic Bkt928 GLUCOSE 144 mg/dL 03/14/2018 Comp Metabolic Ynh185 Creat 0.5 mg/dL 03/14/2018 Comp Metabolic Tjk126 eGFR 138 ml/min/1.73m2 03/14/2018 Comp Metabolic Moc711 BUN 9 mg/dL 03/14/2018 Comp Metabolic Evp848 B/C Ratio 17.6 Ratio 03/14/2018 Comp Metabolic Dwk826 CALCIUM 10.0 mg/dL 03/14/2018 Comp Metabolic Jdf670 ALK PHOS 102 U/L 03/14/2018 Comp Metabolic Fzz178 AST(SGOT) 31 U/L 03/14/2018 Comp Metabolic Exb454 ALT(SGPT) 41 U/L 03/14/2018 Comp Metabolic Sos657 BILI T 0.5 mg/dL 03/14/2018 Comp Metabolic Zun614 ALBUMIN 4.3 g/dL 03/14/2018 Comp Metabolic Cfs582 TPRO 6.8 g/dL 03/14/2018 Comp Metabolic Joh382 GLOB 2.5 g/dL 03/14/2018 Comp Metabolic Rsq469 A/G Ratio 1.8 Ratio 03/14/2018 Comp Metabolic Fvr269 Osmo 275 mOsmo 03/14/2018 Lipid Ord30 CHOL 233 mg/dL 03/14/2018 Lipid Ord30 HDL 38.0 mg/dl 03/14/2018 Lipid Ord30 TRIG 143 mg/dL 03/14/2018 Lipid Ord30 LDL 166 mg/dL 03/14/2018 Lipid Ord30 C/HDL 6.1 Ratio 03/14/2018 Comp Metabolic Qhs586 NA 139 mEq/L 06/13/2017 Comp Metabolic Rsi900 K 4.4 mEq/L 06/13/2017 Comp Metabolic Gis123 CL 100 mEq/L 06/13/2017 Comp Metabolic Hyf766 CO2 29.0 mEq/L 06/13/2017 Comp Metabolic Zwu869 ANION GAP 14 06/13/2017 Comp Metabolic Ozb664 GLUCOSE 257 mg/dL 06/13/2017 Comp Metabolic Lzo097 Creat 0.5 mg/dL 06/13/2017 Comp Metabolic Vny203 eGFR 145 ml/min/1.73m2 06/13/2017 Comp Metabolic Kik836 BUN 13 mg/dL 06/13/2017 Comp Metabolic Lek797 B/C Ratio 26.5 Ratio 06/13/2017 Comp Metabolic Ubh137 CALCIUM 9.7 mg/dL 06/13/2017 Comp Metabolic Inh072 ALK PHOS 98 U/L 06/13/2017 Comp Metabolic Wwj576 AST(SGOT) 30 U/L 06/13/2017 Comp Metabolic Pmi870 ALT(SGPT) 43 U/L 06/13/2017 Comp Metabolic Wve020 BILI T 0.5 mg/dL 06/13/2017 Comp Metabolic Qqb456 ALBUMIN 4.0 g/dL 06/13/2017 Comp Metabolic Ofj945 TPRO 6.4 g/dL 06/13/2017 Comp Metabolic Xhw611 GLOB 2.4 g/dL 06/13/2017 Comp Metabolic Std431 A/G Ratio 1.7 Ratio 06/13/2017 Comp Metabolic Gbh256 Osmo 286 mOsmo 06/13/2017 Lipid Ord30 CHOL 219 mg/dL 06/13/2017 Lipid Ord30 HDL 40.0 mg/dl 06/13/2017 Lipid Ord30 TRIG 200 mg/dL 06/13/2017 Lipid Ord30 LDL 139 mg/dL 06/13/2017 Lipid Ord30 C/HDL 5.5 Ratio 06/13/2017 Tsh Ord6 hTSH II 1.50 uIU/mL 06/13/2017 %Hba1C Lhr496 % HbA1c 88896-0 8.8 % 06/13/2017 %Hba1C Cmi356 Gluc Ave 206 mg/dL 06/13/2017 Cbc With Differential Ord2 WBC 14.30 K/ul 06/13/2017 Cbc With Differential Ord2 RBC 5.06 M/ul 06/13/2017 Cbc With Differential Ord2 HGB 15.3 g/dl 06/13/2017 Cbc With Differential Ord2 HCT 46.6 % 06/13/2017 Cbc With Differential Ord2 Neut% 71.3 % 06/13/2017 Cbc With Differential Ord2 MCV 92.1 fl 06/13/2017 Cbc With Differential Ord2 Lymph% 22.4 % 06/13/2017 Cbc With Differential Ord2 MCH 30.2 pg 06/13/2017 Cbc With Differential Ord2 [place]% 4.9 % 06/13/2017 Cbc With Differential Ord2 Eos% 1.0 % 06/13/2017 Cbc With Differential Ord2 MCHC 32.8 pg 06/13/2017 Cbc With Differential Ord2 PLT 392 K/ul 06/13/2017 Cbc With Differential Ord2 Baso% 0.4 % 06/13/2017 Cbc With Differential Ord2 Neut ABS# 10.18 K/ul 06/13/2017 Cbc With Differential Ord2 RDW 14.4 % 06/13/2017 Cbc With Differential Ord2 Lymph ABS# 3.21 K/ul 06/13/2017 Cbc With Differential Ord2 [place] ABS# 0.7 K/ul 06/13/2017 Cbc With Differential Ord2 Eos ABS# 0.2 K/ul 06/13/2017 Cbc With Differential Ord2 Baso ABS# 0.1 K/ul 06/13/2017 Cbc With Differential Ord2 WBC 14.64 K/ul 2016 Cbc With Differential Ord2 RBC 4.95 M/ul 2016 Cbc With Differential Ord2 HGB 15.1 g/dl 2016 Cbc With Differential Ord2 HCT 46.2 % 2016 Cbc With Differential Ord2 Neut% 69.6 % 2016 Cbc With Differential Ord2 Lymph% 24.1 % 2016 Cbc With Differential Ord2 MCV 93.3 fl 2016 Cbc With Differential Ord2 MCH 30.5 pg 2016 Cbc With Differential Ord2 [place]% 4.7 % 2016 Cbc With Differential Ord2 Eos% 1.1 % 2016 Cbc With Differential Ord2 MCHC 32.7 pg 2016 Cbc With Differential Ord2 Baso% 0.5 % 2016 Cbc With Differential Ord2 PLT 357 K/ul 2016 Cbc With Differential Ord2 RDW 14.2 % 2016 Cbc With Differential Ord2 Neut ABS# 10.18 K/ul 2016 Cbc With Differential Ord2 Lymph ABS# 3.53 K/ul 2016 Cbc With Differential Ord2 [place] ABS# 0.7 K/ul 2016 Cbc With Differential Ord2 Eos ABS# 0.2 K/ul 2016 Cbc With Differential Ord2 Baso ABS# 0.1 K/ul 2016 Comp Metabolic Ddl842 NA 136 mEq/L 2016 Comp Metabolic Uyi215 K 4.1 mEq/L 2016 Comp Metabolic Qvm235 CL 96 mEq/L 2016 Comp Metabolic Ycj093 CO2 29.0 mEq/L 2016 Comp Metabolic Xxo963 ANION GAP 15 2016 Comp Metabolic Bth463 GLUCOSE 291 mg/dL 2016 Comp Metabolic Kfr112 Creat 0.4 mg/dL 2016 Comp Metabolic Ixo051 eGFR 165 ml/min/1.73m2 2016 Comp Metabolic Rbu502 BUN 11 mg/dL 2016 Comp Metabolic Mla743 B/C Ratio 25.0 Ratio 2016 Comp Metabolic Hrx444 CALCIUM 9.4 mg/dL 2016 Comp Metabolic Wqq654 ALK PHOS 111 U/L 2016 Comp Metabolic Scz447 AST(SGOT) 46 U/L 2016 Comp Metabolic Arj241 ALT(SGPT) 60 U/L 2016 Comp Metabolic Euc639 BILI T 0.4 mg/dL 2016 Comp Metabolic Vyw788 ALBUMIN 4.0 g/dL 2016 Comp Metabolic Kuj712 TPRO 6.5 g/dL 2016 Comp Metabolic Vtr636 GLOB 2.6 g/dL 2016 Comp Metabolic Hlw480 A/G Ratio 1.5 Ratio 2016 Comp Metabolic Fww270 Osmo 282 mOsmo 2016 %Hba1C Sjt052 % HbA1c 35626-5 11.1 % 2016 %Hba1C Vkp295 Gluc Ave 272 mg/dL 2016 C-Reactive Protein Qnt Crqnt CRP 4.7 mg/dl 2016 Lipid Ord30 CHOL 228 mg/dL 05/05/2016 Lipid Ord30 HDL 42.0 mg/dl 05/05/2016 Lipid Ord30 TRIG 168 mg/dL 05/05/2016 Lipid Ord30 LDL 152 mg/dL 05/05/2016 Lipid Ord30 C/HDL 5.4 Ratio 05/05/2016 Comp Metabolic Zhh256 NA 135 mEq/L 05/05/2016 Comp Metabolic Ljv701 K 4.1 mEq/L 05/05/2016 Comp Metabolic Akp692 CL 99 mEq/L 05/05/2016 Comp Metabolic Dqf024 CO2 29.0 mEq/L 05/05/2016 Comp Metabolic Hsl559 ANION GAP 11 05/05/2016 Comp Metabolic Cqt242 GLUCOSE 229 mg/dL 05/05/2016 Comp Metabolic Vhh124 Creat 0.5 mg/dL 05/05/2016 Comp Metabolic Mfl031 eGFR 150 ml/min/1.73m2 05/05/2016 Comp Metabolic Gzs205 BUN 14 mg/dL 05/05/2016 Comp Metabolic Yqh699 B/C Ratio 29.2 Ratio 05/05/2016 Comp Metabolic Lfl670 CALCIUM 9.1 mg/dL 05/05/2016 Comp Metabolic Zop695 ALK PHOS 112 U/L 05/05/2016 Comp Metabolic Uih513 AST(SGOT) 59 U/L 05/05/2016 Comp Metabolic Ehm869 ALT(SGPT) 63 U/L 05/05/2016 Comp Metabolic Fmy643 BILI T 0.7 mg/dL 05/05/2016 Comp Metabolic Fjs764 ALBUMIN 3.8 g/dL 05/05/2016 Comp Metabolic Wvn223 TPRO 6.5 g/dL 05/05/2016 Comp Metabolic Nsm894 GLOB 2.7 g/dL 05/05/2016 Comp Metabolic Brt712 A/G Ratio 1.4 Ratio 05/05/2016 Comp Metabolic Ciw635 Osmo 278 mOsmo 05/05/2016 %Hba1C Mxw095 % HbA1c 67560-9 10.4 % 05/05/2016 %Hba1C Qzt218 Gluc Ave 252 mg/dL 05/05/2016 Cbc With Differential Ord2 WBC 16.31 K/ul 05/05/2016 Cbc With Differential Ord2 RBC 5.03 M/ul 05/05/2016 Cbc With Differential Ord2 HGB 15.2 g/dl 05/05/2016 Cbc With Differential Ord2 Neut% 72.1 % 05/05/2016 Cbc With Differential Ord2 HCT 45.9 % 05/05/2016 Cbc With Differential Ord2 MCV 91.3 fl 05/05/2016 Cbc With Differential Ord2 Lymph% 22.0 % 05/05/2016 Cbc With Differential Ord2 MCH 30.2 pg 05/05/2016 Cbc With Differential Ord2 [place]% 4.4 % 05/05/2016 Cbc With Differential Ord2 MCHC 33.1 pg 05/05/2016 Cbc With Differential Ord2 Eos% 0.9 % 05/05/2016 Cbc With Differential Ord2 PLT 387 K/ul 05/05/2016 Cbc With Differential Ord2 Baso% 0.6 % 05/05/2016 Cbc With Differential Ord2 Neut ABS# 11.77 K/ul 05/05/2016 Cbc With Differential Ord2 RDW 14.8 % 05/05/2016 Cbc With Differential Ord2 Lymph ABS# 3.59 K/ul 05/05/2016 Cbc With Differential Ord2 [place] ABS# 0.7 K/ul 05/05/2016 Cbc With Differential Ord2 Eos ABS# 0.1 K/ul 05/05/2016 Cbc With Differential Ord2 Baso ABS# 0.1 K/ul 05/05/2016 Hcg Beta Subunit Qual Serum 016670 B-HCG QUALITATIVE NEGATIVE 12/27/2015 GC/CHL PRB 5221243 Chl trach DNA Negative 12/25/2015 GC/CHL PRB 6591640 GC PROBE Negative 12/25/2015 Cbc With Differential/Platelet 56795 WBC 16.67 thou/uL 2015 Cbc With Differential/Platelet 20670 RBC 5.11 mil/uL 2015 Cbc With Differential/Platelet 44900 HEMOGLOBIN 14.8 g/dL 12/17/2015 Cbc With Differential/Platelet 93222 HEMATOCRIT 48.7 % 06/2015 Cbc With Differential/Platelet 41779 MCV 95.4 fL 12/17/2015 Cbc With Differential/Platelet 79848 MCH 29.0 pg 12/17/2015 Cbc With Differential/Platelet 80405 MCHC 30.4 g/dL 2015 Cbc With Differential/Platelet 18409 RDW- CV 14.6 % 12/17/2015 Cbc With Differential/Platelet 42876 PLATELET COUNT 471 thou/uL 12/17/2015 Cbc With Differential/Platelet 41649 NEUTROPHIL % 71.3 % Cbc With Differential/Platelet 80865 LYMPHOCYTE % 22.4 % Cbc With Differential/Platelet 09102 MONOCYTE % 4.8 % 12/16 Cbc With Differential/Platelet 24409 EOS % 0.7 % 12/17/2015 Cbc With Differential/Platelet 83766 BASO % 0.7 % 2015 Cbc With Differential/Platelet 15894 NEUTROPHIL ABS # 11.89 thou/uL 12/17/2015 Cbc With Differential/Platelet 30653 LYMPH ABS # 3.73 thou/uL 12/17/2015 Cbc With Differential/Platelet 23307 MONOCYTE ABS # 0.80 thou/uL 12/17/2015 Cbc With Differential/Platelet 41942 EOS ABS # 0.12 thou/uL 06/2015 Cbc With Differential/Platelet 75504 BASO ABS # 0.12 thou/uL 12/17/2015 Comp. Metabolic Panel (14) 09808 GLUCOSE 136 mg/dL 12/17/2015 Comp. Metabolic Panel (14) 38821 BUN 9 mg/dL 12/17/2015 Comp. Metabolic Panel (14) 73840 CREATININE 0.67 mg/dL 12/17/2015 Comp. Metabolic Panel (14) 05901 SODIUM 136 mmol/L 12/17/2015 Comp. Metabolic Panel (14) 37429 POTASSIUM 4.4 mmol/L 12/17/2015 Comp. Metabolic Panel (14) 26208 CHLORIDE 95 mmol/L 06/2015 Comp. Metabolic Panel (14) 71906 CARBON DIOXIDE 28 mmol/L 06/2015 Comp. Metabolic Panel (14) 80983 CALCIUM 10.1 mg/dL 2015 Comp. Metabolic Panel (14) 11906 TOTAL PROTEIN 7.0 g/dL 12/16 Comp. Metabolic Panel (14) 13359 ALBUMIN 4.5 g/dL 12/17/2015 Comp. Metabolic Panel (14) 64137 ALKALINE PHOSPHATASE 87 U/L 12/17/2015 Comp. Metabolic Panel (14) 30915 TOTAL BILIRUBIN 0.5 mg/dL Comp. Metabolic Panel (14) 37208 SGOT ( AST) 38 U/L 2015 Comp. Metabolic Panel (14) 14212 SGPT ( ALT) 41 U/L 2015 Comp. Metabolic Panel (14) 19631 eGFR (mL /min/1.73m2) >60 06/2015 Comp. Metabolic Panel (14) 04340 12/17/2015 Comp. Metabolic Panel (14) GLUCOSE 126 mg/dL [...] >60 2015 Comp. Metabolic Panel (14) 11/13/2015 Cbc With Differential/Platelet WBC 17.26 thou/uL 11/13/2015 [...] Differential/Platelet BASO ABS # 0.19 thou/uL 2015 Hgb A1C With Eag Estimation GLYCOHEMOGLOBIN A1C 90711-0 8.1 % 11/13/2015 Hgb A1C With Eag Estimation ESTIMATED AVG GLUCOSE 186 mg/dL 11/13/2015 Comp. Metabolic Panel (14) 27325 GLUCOSE 84 mg/dL 09/11/2015 Comp. Metabolic Panel (14) 07731 BUN 11 mg/dL 09/11/2015 Comp. Metabolic Panel (14) 58220 CREATININE 0.56 mg/dL 09/11/2015 Comp. Metabolic Panel (14) 46139 SODIUM 142 mmol/L 09/11/2015 Comp. Metabolic Panel (14) 29530 POTASSIUM 4.3 mmol/L 09/11/2015 Comp. Metabolic Panel (14) 93457 CHLORIDE 98 mmol/L Comp. Metabolic Panel (14) 89046 CARBON DIOXIDE 27 mmol/L Comp. Metabolic Panel (14) 95288 CALCIUM 10.1 mg/dL 2015 Comp. Metabolic Panel (14) 79993 TOTAL PROTEIN 7.2 g/dL 09/10 Comp. Metabolic Panel (14) 46471 ALBUMIN 4.7 g/dL 09/11/2015 Comp. Metabolic Panel (14) 10976 ALKALINE PHOSPHATASE 109 U/L 09/11/2015 Comp. Metabolic Panel (14) 66101 TOTAL BILIRUBIN 0.3 mg/dL Comp. Metabolic Panel (14) 58354 SGOT ( AST) 53 U/L 2015 Comp. Metabolic Panel (14) 23522 SGPT ( ALT) 53 U/L 2015 Comp. Metabolic Panel (14) 08661 eGFR (mL /min/1.73m2) >60 Comp. Metabolic Panel (14) 65449 09/11/2015 Cbc With Differential/Platelet 62713 WBC 11.76 thou/uL 2015 Cbc With Differential/Platelet 03076 RBC 4.98 mil/uL 2015 Cbc With Differential/Platelet 83941 HEMOGLOBIN 14.2 g/dL 08/11/2015 Cbc With Differential/Platelet 22113 HEMATOCRIT 46.7 % Cbc With Differential/Platelet 91104 MCV 93.8 fL 08/11/2015 Cbc With Differential/Platelet 61941 MCH 28.5 pg 08/11/2015 Cbc With Differential/Platelet 95827 MCHC 30.4 g/dL 2015 Cbc With Differential/Platelet 31006 RDW- CV 14.3 % 08/11/2015 Cbc With Differential/Platelet 11598 PLATELET COUNT 382 thou/uL 08/11/2015 Cbc With Differential/Platelet 60532 NEUTROPHIL % 67.3 % Cbc With Differential/Platelet 54930 LYMPHOCYTE % 24.0 % Cbc With Differential/Platelet 55165 MONOCYTE % 6.0 % 08/11 Cbc With Differential/Platelet 19214 EOS % 1.6 % 08/11/2015 Cbc With Differential/Platelet 60627 BASO % 1.0 % 2015 Cbc With Differential/Platelet 23751 NEUTROPHIL ABS # 7.91 thou/uL 08/11/2015 Cbc With Differential/Platelet 70362 LYMPH ABS # 2.82 thou/uL 08/11/2015 Cbc With Differential/Platelet 79715 MONOCYTE ABS # 0.71 thou/uL 08/11/2015 Cbc With Differential/Platelet 05079 EOS ABS # 0.19 thou/uL Cbc With Differential/Platelet 35831 BASO ABS # 0.12 thou/uL 08/11/2015 Tsh 539216 TSH 3.220 uIU/mL 08/11/2015 Lipid Panel 50889 CHOLESTEROL 193 mg/dL 08/11/2015 Lipid Panel 02047 TRIGLYCERIDES 192 mg/dL 08/11/2015 Lipid Panel 41543 HDL 38 mg/dL 08/11/2015 Lipid Panel 41411 CHOLESTEROL/HDL 5.08 08/11/2015 Lipid Panel 67456 LDL (CALCULATED) 117 mg/dL 08/11/2015 Lipid Panel 85839 LDL/HDL 3.08 08/11/2015 Lipid Panel 20462 PHENOTYPE TYPE IV BORDERLINE 08/11/2015 Comp. Metabolic Panel (14) 42184 GLUCOSE 183 mg/dL 08/11/2015 Comp. Metabolic Panel (14) 33772 BUN 10 mg/dL 08/11/2015 Comp. Metabolic Panel (14) 02038 CREATININE 0.46 mg/dL 08/11/2015 Comp. Metabolic Panel (14) 31560 SODIUM 138 mmol/L 08/11/2015 Comp. Metabolic Panel (14) 95240 POTASSIUM 4.0 mmol/L 08/11/2015 Comp. Metabolic Panel (14) 19770 CHLORIDE 98 mmol/L Comp. Metabolic Panel (14) 35617 CARBON DIOXIDE 29 mmol/L Comp. Metabolic Panel (14) 36630 CALCIUM 9.4 mg/dL 08/11/2015 Comp. Metabolic Panel (14) 88148 TOTAL PROTEIN 6.8 g/dL 08/11 Comp. Metabolic Panel (14) 24733 ALBUMIN 4.4 g/dL 08/11/2015 Comp. Metabolic Panel (14) 30442 ALKALINE PHOSPHATASE 118 U/L 08/11/2015 Comp. Metabolic Panel (14) 99756 TOTAL BILIRUBIN <0.3 mg/dL 08/11/2015 Comp. Metabolic Panel (14) 87077 SGOT ( AST) 41 U/L 2015 Comp. Metabolic Panel (14) 78207 SGPT ( ALT) 55 U/L 2015 Comp. Metabolic Panel (14) 35403 eGFR (mL /min/1.73m2) >60 Comp. Metabolic Panel (14) 19213 08/11/2015 Review of Systems System Result Effective Dates Constitutional No recent illness 2018 Constitutional No chills 06/28/2018 Constitutional No diaphoresis 06/28/2018 Constitutional No fever 06/28/2018 Eyes No eye erythema 06/28/2018 Ears/Nose/Throat/Neck No nasal discharge 06/28/2018 Cardiovascular No chest pain/pressure 04/2019 Respiratory No cough 06/28/2018 Gastrointestinal No abdominal pain 2018 Gastrointestinal No constipation 2018 Gastrointestinal diarrhea 06/28/2018 Gastrointestinal No vomiting 06/28/2018 Gastrointestinal No nausea 06/28/2018 Gastrointestinal No melena 06/28/2018 Gastrointestinal No hematochezia 2018 Gastrointestinal gas and bloating 2018 Musculoskeletal No joint complaint 2018 Dermatologic sores 06/28/2018 Neurologic No alteration of consciousness 06/28/2018 Neurologic No mental status change 2018 Constitutional No recent illness 2017 Constitutional No anorexia 06/17/2018 Constitutional No night sweats 2017 Constitutional No chills 06/17/2018 Constitutional No diaphoresis 06/17/2018 Constitutional fatigue 06/17/2018 Constitutional No fever 06/17/2018 Constitutional No insomnia 06/17/2018 Constitutional No malaise 06/17/2018 Constitutional No weight loss 06/17/2018 Constitutional No weight gain 06/17/2018 Constitutional No recent illness 2017 Constitutional No chills 06/05/2018 Constitutional No diaphoresis 06/05/2018 Constitutional No fever 06/05/2018 Eyes No eye erythema 06/05/2018 Ears/Nose/Throat/Neck No nasal discharge 06/05/2018 Cardiovascular No chest pain/pressure Respiratory No cough 06/05/2018 Neurologic No alteration of consciousness 06/05/2018 Neurologic No mental status change 2017 Dermatologic cyst 06/05/2018 Constitutional recent illness 03/26/2018 Constitutional No chills 03/26/2018 Constitutional No diaphoresis 03/26/2018 Constitutional No fever 03/26/2018 Eyes No eye erythema 03/26/2018 Ears/Nose/Throat/Neck nasal allergies 02/2018 Ears/Nose/Throat/Neck nasal discharge 02/2018 Ears/Nose/Throat/Neck No sore throat 02/2018 Ears/Nose/Throat/Neck No sinus congestion 03/26/2018 Ears/Nose/Throat/Neck postnasal drip 02/2018 Cardiovascular No chest pain/pressure 02/2018 Cardiovascular No dyspnea 03/26/2018 Respiratory cough 03/26/2018 Respiratory No chest congestion 2017 Gastrointestinal No abdominal pain 2017 Gastrointestinal No constipation 2017 Gastrointestinal No diarrhea 03/26/2018 Gastrointestinal gastroesophageal reflux 03/26/2018 Gastrointestinal No vomiting 03/26/2018 Gastrointestinal No nausea 03/26/2018 Gastrointestinal No melena 03/26/2018 Gastrointestinal No hematochezia 2017 Dermatologic No rash 03/26/2018 Neurologic No alteration of consciousness 03/26/2018 Neurologic No mental status change 2017 Constitutional recent illness 03/14/2018 Constitutional No chills 03/14/2018 Constitutional No diaphoresis 03/14/2018 Constitutional No fever 03/14/2018 Eyes No eye erythema 03/14/2018 Ears/Nose/Throat/Neck nasal discharge Ears/Nose/Throat/Neck nasal allergies Ears/Nose/Throat/Neck No sore throat Ears/Nose/Throat/Neck No sinus congestion 03/14/2018 Cardiovascular No chest pain/pressure Cardiovascular No dyspnea 03/14/2018 Respiratory cough 03/14/2018 Respiratory No chest congestion 2017 Respiratory No dyspnea 03/14/2018 Dermatologic acrochordon (skin tags) Neurologic No alteration of consciousness 03/14/2018 Neurologic No mental status change 2017 Constitutional recent illness 03/07/2018 Eyes No eye erythema 03/07/2018 Ears/Nose/Throat/Neck nasal allergies Ears/Nose/Throat/Neck nasal discharge Ears/Nose/Throat/Neck postnasal drip Ears/Nose/Throat/Neck sinus congestion Cardiovascular No chest pain/pressure Respiratory cough 03/07/2018 Respiratory dyspnea on exertion 2017 Respiratory No dyspnea 03/07/2018 Respiratory wheezing 03/07/2018 Gastrointestinal No abdominal pain 2017 Musculoskeletal No joint complaint 2017 Dermatologic No rash 03/07/2018 Neurologic No alteration of consciousness 03/07/2018 Neurologic No mental status change 2017 Constitutional No diaphoresis 03/07/2018 Constitutional No chills 03/07/2018 Constitutional No fever 03/07/2018 Respiratory No chest congestion 2017 Respiratory No productive sputum 2017 Constitutional recent illness 02/19/2018 Constitutional chills 02/19/2018 Constitutional fever 02/19/2018 Eyes No eye erythema 02/19/2018 Ears/Nose/Throat/Neck nasal allergies 09/2017 Ears/Nose/Throat/Neck nasal discharge 09/2017 Ears/Nose/Throat/Neck postnasal drip 09/2017 Ears/Nose/Throat/Neck sinus congestion Cardiovascular No chest pain/pressure 09/2017 Respiratory productive sputum 02/19/2018 Respiratory cough 02/19/2018 Respiratory wheezing 02/19/2018 Gastrointestinal No abdominal pain 2017 Musculoskeletal No joint complaint 2017 Dermatologic No rash 02/19/2018 Neurologic No alteration of consciousness 02/19/2018 Neurologic No mental status change 2017 Respiratory chest congestion 02/19/2018 Respiratory No dyspnea 02/19/2018 Respiratory dyspnea on exertion 2017 Constitutional No recent illness 2017 Constitutional No chills 01/08/2018 Constitutional No diaphoresis 01/08/2018 Constitutional No fever 01/08/2018 Eyes No eye erythema 01/08/2018 Ears/Nose/Throat/Neck No nasal discharge 01/08/2018 Ears/Nose/Throat/Neck No nasal allergies 01/08/2018 Cardiovascular No chest pain/pressure Respiratory No cough 01/08/2018 Respiratory No chest congestion 2017 Gastrointestinal No abdominal pain 2017 Genitourinary/Nephrology dysuria 2017 Genitourinary/Nephrology vaginal discharge 01/08/2018 Dermatologic rash 01/08/2018 Neurologic No alteration of consciousness 01/08/2018 Neurologic No mental status change 2017 Constitutional No recent illness 2017 Constitutional No chills 11/23/2017 Constitutional No fever 11/23/2017 Eyes No eye erythema 11/23/2017 Ears/Nose/Throat/Neck No nasal discharge 11/23/2017 Cardiovascular No chest pain/pressure 01/2018 Cardiovascular No dyspnea 11/23/2017 Respiratory No cough 11/23/2017 Respiratory No dyspnea 11/23/2017 Musculoskeletal joint complaint 2017 Neurologic No alteration of consciousness 11/23/2017 Neurologic No mental status change 2017 Constitutional recent illness 09/05/2017 Constitutional chills 09/05/2017 Constitutional No diaphoresis 09/05/2017 Constitutional fever 09/05/2017 Eyes No eye erythema 09/05/2017 Ears/Nose/Throat/Neck nasal allergies Ears/Nose/Throat/Neck nasal discharge Ears/Nose/Throat/Neck otalgia 09/05/2017 Ears/Nose/Throat/Neck postnasal drip Ears/Nose/Throat/Neck sinus congestion Ears/Nose/Throat/Neck sore throat 2017 Cardiovascular No chest pain/pressure Respiratory chest congestion 09/05/2017 Respiratory cough 09/05/2017 Respiratory dyspnea on exertion 2017 Respiratory No dyspnea 09/05/2017 Dermatologic No rash 09/05/2017 Neurologic No alteration of consciousness 09/05/2017 Neurologic No mental status change 2017 Constitutional No recent illness 2016 Constitutional No [...] Result Effective Dates Notes Full Exam - Dermatology Constitutional general appearance Overall: well nourished 06/28/2018 None Full Exam - Dermatology Constitutional general appearance Overall: well developed 06/28/2018 None Full Exam - Dermatology Constitutional general appearance Overall: in no acute distress 06/28/2018 None Full Exam - Dermatology Eyes conjunctiva/ eyelids Overall: clear conjunctiva bilaterally 06/28/2018 None Full Exam - Dermatology Eyes conjunctiva/ eyelids Overall: clear corneas 06/28/2018 None Full Exam - Dermatology Eyes conjunctiva/ eyelids Overall: normal eyelids 06/28/2018 None Full Exam - Dermatology Ears/Nose/Throat lips/teeth/gingiva Overall: benign lips 06/28/2018 None Full Exam - Dermatology Ears/Nose/Throat oropharynx Overall: clear oral mucosa 06/28/2018 None Full Exam - Dermatology Respiratory respiratory effort/rhythm Overall: no retractions 06/28/2018 None Full Exam - Dermatology Respiratory respiratory effort/rhythm Overall: normal rate 06/28/2018 None Full Exam - Dermatology Musculoskeletal head and neck Overall: head atraumatic 06/28/2018 None Full Exam - Dermatology Integument insp & palp - chest/axillae Lesion: cyst 06/28/2018 draining - minimal purulent drainage Full Exam - Dermatology Integument insp & palp - chest/axillae Location: on the right axilla 06/28/2018 None Full Exam - Dermatology Integument insp & palp - chest/axillae Color: erythematous 06/28/2018 None Full Exam - Dermatology Psychiatric orientation Overall: oriented to person, place and time 06/28/2018 None Full Exam - Dermatology Psychiatric mood and affect Overall: normal mood and affect 06/28/2018 None Full Exam - Dermatology Abdomen liver and spleen exam Overall: normal active bowel sounds 06/28/2018 None Full Exam - Dermatology Abdomen liver and spleen exam Overall: soft 06/28/2018 None Full Exam - Dermatology Constitutional general appearance Overall: well nourished 06/17/2018 None Full Exam - Dermatology Constitutional general appearance Overall: well developed 06/17/2018 None Full Exam - Dermatology Constitutional general appearance Overall: in no acute distress 06/17/2018 None Full Exam - Dermatology Eyes conjunctiva/ eyelids Overall: clear conjunctiva bilaterally 06/17/2018 None Full Exam - Dermatology Eyes conjunctiva/ eyelids Overall: clear corneas 06/17/2018 None Full Exam - Dermatology Eyes conjunctiva/ eyelids Overall: normal eyelids 06/17/2018 None Full Exam - Dermatology Ears/Nose/Throat lips/teeth/gingiva Overall: benign lips 06/17/2018 None Full Exam - Dermatology Ears/Nose/Throat oropharynx Overall: clear oral mucosa 06/17/2018 None Full Exam - Dermatology Respiratory respiratory effort/rhythm Overall: no retractions 06/17/2018 None Full Exam - Dermatology Respiratory respiratory effort/rhythm Overall: normal rate 06/17/2018 None Full Exam - Dermatology Musculoskeletal head and neck Overall: head atraumatic 06/17/2018 None Full Exam - Dermatology Integument insp & palp - chest/axillae Lesion: cyst 06/17/2018 draining - minimal purulent drainage --Improved and drainage has resolved Full Exam - Dermatology Integument insp & palp - chest/axillae Location: on the right axilla 06/17/2018 --Improved Full Exam - Dermatology Integument insp & palp - chest/axillae Color: erythematous 06/17/2018 --Improved Full Exam - Dermatology Psychiatric orientation Overall: oriented to person, place and time 06/17/2018 None Full Exam - Dermatology Psychiatric mood and affect Overall: normal mood and affect 06/17/2018 None Full Exam - Dermatology Constitutional general appearance Overall: well nourished 06/05/2018 None Full Exam - Dermatology Constitutional general appearance Overall: well developed 06/05/2018 None Full Exam - Dermatology Constitutional general appearance Overall: in no acute distress 06/05/2018 None Full Exam - Dermatology Eyes conjunctiva/ eyelids Overall: clear conjunctiva bilaterally 06/05/2018 None Full Exam - Dermatology Eyes conjunctiva/ eyelids Overall: clear corneas 06/05/2018 None Full Exam - Dermatology Eyes conjunctiva/ eyelids Overall: normal eyelids 06/05/2018 None Full Exam - Dermatology Ears/Nose/Throat lips/teeth/gingiva Overall: benign lips 06/05/2018 None Full Exam - Dermatology Ears/Nose/Throat oropharynx Overall: clear oral mucosa 06/05/2018 None Full Exam - Dermatology Respiratory respiratory effort/rhythm Overall: no retractions 06/05/2018 None Full Exam - Dermatology Respiratory respiratory effort/rhythm Overall: normal rate 06/05/2018 None Full Exam - Dermatology Musculoskeletal head and neck Overall: head atraumatic 06/05/2018 None Full Exam - Dermatology Psychiatric orientation Overall: oriented to person, place and time 06/05/2018 None Full Exam - Dermatology Psychiatric mood and affect Overall: normal mood and affect 06/05/2018 None Full Exam - Dermatology Integument insp & palp - chest/axillae Lesion: cyst 06/05/2018 draining - minimal purulent drainage Full Exam - Dermatology Integument insp & palp - chest/axillae Location: on the right axilla 06/05/2018 None Full Exam - Dermatology Integument insp & palp - chest/axillae Color: erythematous 06/05/2018 None Full Exam - General 1994 Constitutional general appearance Overall: well developed 03/26/2018 None Full Exam - General 1994 Constitutional general appearance Overall: in no acute distress 03/26/2018 None Full Exam - General 1994 Constitutional general appearance Overall: well nourished 03/26/2018 None Full Exam - General 1994 Eyes conjunctiva /eyelids Overall: conjunctiva clear 03/26/2018 None Full Exam - General 1994 Eyes conjunctiva /eyelids Overall: cornea clear 03/26/2018 None Full Exam - General 1994 Eyes conjunctiva /eyelids Overall: eyelids normal 03/26/2018 None Full Exam - General 1994 Ears/Nose/Throat otoscopic exam Overall: tympanic membranes clear 03/26/2018 None Full Exam - General 1994 Ears/Nose/Throat otoscopic exam Overall: external auditory canals clear 03/26/2018 None Full Exam - General 1994 Ears/Nose/Throat lips/teeth/gingiva Overall: benign lips 03/26/2018 None Full Exam - General 1994 Ears/Nose/Throat oral cavity/pharynx/larynx Overall: oral mucosa clear 03/26/2018 None Full Exam - General 1994 Respiratory respiratory effort/rhythm Overall: normal rate 03/26/2018 None Full Exam - General 1994 Respiratory respiratory effort/rhythm Overall: no retractions 03/26/2018 None Full Exam - General 1994 Respiratory auscultation Overall: breath sounds clear bilaterally 03/26/2018 None Full Exam - General 1994 Cardiovascular auscultation of heart Rate: tachycardia 03/26/2018 None Full Exam - General 1994 Cardiovascular auscultation of heart Rhythm: regular rhythm 03/26/2018 None Full Exam - General 1994 Abdomen abdominal exam Overall: normal bowel sounds 03/26/2018 None Full Exam - General 1994 Abdomen abdominal exam Epigastric: tender to palpation 03/26/2018 None Full Exam - General 1994 Abdomen abdominal exam Epigastric: dull pain 03/26/2018 None Full Exam - General 1994 Abdomen abdominal exam Epigastric: no guarding 03/26/2018 None Full Exam - General 1994 Abdomen abdominal exam Epigastric: no rebound tenderness 03/26/2018 None Full Exam - General 1994 Abdomen abdominal exam Epigastric: soft 03/26/2018 None Full Exam - General 1994 Musculoskeletal head and neck Overall: head atraumatic 03/26/2018 None Full Exam - General 1994 Musculoskeletal gait and station Overall: normal station 03/26/2018 None Full Exam - General 1994 Musculoskeletal gait and station Overall: normal gait 03/26/2018 None Full Exam - General 1994 Neurologic cranial nerves Overall: crainial nerves 2 - 12 grossly intact 03/26/2018 None Full Exam - General 1994 Psychiatric orientation/consciousness Overall: oriented to person, place and time 03/26/2018 None Full Exam - General 1994 Psychiatric mood and affect Overall: normal mood and affect 03/26/2018 None Full Exam - General 1994 Psychiatric appearance Overall: well-groomed, good eye contact 03/26/2018 None Full Exam - Dermatology Constitutional general appearance Overall: well nourished 03/14/2018 None Full Exam - Dermatology Constitutional general appearance Overall: well developed 03/14/2018 None Full Exam - Dermatology Constitutional general appearance Overall: in no acute distress 03/14/2018 None Full Exam - Dermatology Eyes conjunctiva/ eyelids Overall: normal eyelids 03/14/2018 None Full Exam - Dermatology Eyes conjunctiva/ eyelids Overall: clear corneas 03/14/2018 None Full Exam - Dermatology Eyes conjunctiva/ eyelids Overall: clear conjunctiva bilaterally 03/14/2018 None Full Exam - Dermatology Ears/Nose/Throat lips/teeth/gingiva Overall: benign lips 03/14/2018 None Full Exam - Dermatology Ears/Nose/Throat oropharynx Overall: clear oral mucosa 03/14/2018 None Full Exam - Dermatology Respiratory respiratory effort/rhythm Overall: normal rate 03/14/2018 None Full Exam - Dermatology Respiratory respiratory effort/rhythm Overall: no retractions 03/14/2018 None Full Exam - Dermatology Respiratory auscultation Diffuse: diminished 03/14/2018 None Full Exam - Dermatology Respiratory auscultation Overall: breath sounds clear bilaterally 03/14/2018 None Full Exam - Dermatology Musculoskeletal head and neck Overall: head atraumatic 03/14/2018 None Full Exam - Dermatology Musculoskeletal gait and station Overall: normal gait 03/14/2018 None Full Exam - Dermatology Musculoskeletal gait and station Overall: normal station 03/14/2018 None Full Exam - Dermatology Musculoskeletal spine, ribs and pelvis Overall: good posture 03/14/2018 None Full Exam - Dermatology Integument insp & palp - back Location: on the right lower back 03/14/2018 None Full Exam - Dermatology Integument insp & palp - back Lesion: papule 03/14/2018 skin tag Full Exam - Dermatology Integument insp & palp - left lower extremity Location: on the thigh 03/14/2018 None Full Exam - Dermatology Integument insp & palp - left lower extremity Lesion: papule 03/14/2018 skin tag Full Exam - Dermatology Integument insp & palp - left upper extremity Lesion: papule 03/14/2018 skin tag Full Exam - Dermatology Psychiatric orientation Overall: oriented to person, place and time 03/14/2018 None Full Exam - Dermatology Psychiatric mood and affect Overall: normal mood and affect 03/14/2018 None Full Exam - General 1994 Constitutional general appearance Overall: well developed 03/07/2018 None Full Exam - General 1994 Constitutional general appearance Overall: in no acute distress 03/07/2018 None Full Exam - General 1994 Constitutional general appearance Overall: well nourished 03/07/2018 None Full Exam - General 1994 Eyes conjunctiva /eyelids Overall: conjunctiva clear 03/07/2018 None Full Exam - General 1994 Eyes conjunctiva /eyelids Overall: eyelids normal 03/07/2018 None Full Exam - General 1994 Ears/Nose/Throat otoscopic exam Overall: external auditory canals clear 03/07/2018 None Full Exam - General 1994 Ears/Nose/Throat lips/teeth/gingiva Overall: benign lips 03/07/2018 None Full Exam - General 1994 Ears/Nose/Throat oral cavity/pharynx/larynx Overall: oral mucosa clear 03/07/2018 None Full Exam - General 1994 Ears/Nose/Throat oral cavity/pharynx/larynx Posterior Pharynx: clear post nasal drainage 03/07/2018 None Full Exam - General 1994 Respiratory auscultation Diffuse: diminished 03/07/2018 None Full Exam - General 1994 Respiratory auscultation Lower lung field: expiratory wheezes 03/07/2018 faint Full Exam - General 1994 Respiratory respiratory effort/rhythm Overall: no retractions 03/07/2018 None Full Exam - General 1994 Respiratory respiratory effort/rhythm Overall: normal rate 03/07/2018 None Full Exam - General 1994 Cardiovascular auscultation of heart Overall: normal heart sounds 03/07/2018 None Full Exam - General 1994 Lymphatic neck nodes Overall: anterior cervical chain benign 03/07/2018 None Full Exam - General 1994 Lymphatic neck nodes Overall: posterior cervical chain benign 03/07/2018 None Full Exam - General 1994 Neurologic cranial nerves Overall: crainial nerves 2 - 12 grossly intact 03/07/2018 None Full Exam - General 1994 Psychiatric orientation/consciousness Overall: oriented to person, place and time 03/07/2018 None Full Exam - General 1994 Psychiatric mood and affect Overall: normal mood and affect 03/07/2018 None Full Exam - General 1994 Eyes conjunctiva /eyelids Overall: cornea clear 03/07/2018 None Full Exam - General 1994 Ears/Nose/Throat otoscopic exam Overall: tympanic membranes clear 03/07/2018 None Full Exam - General 1994 Cardiovascular auscultation of heart Rate: tachycardia 03/07/2018 None Full Exam - General 1994 Constitutional general appearance Overall: well developed 02/19/2018 None Full Exam - General 1994 Constitutional general appearance Overall: in no acute distress 02/19/2018 None Full Exam - General 1994 Constitutional general appearance Overall: well nourished 02/19/2018 None Full Exam - General 1994 Eyes conjunctiva /eyelids Overall: conjunctiva clear 02/19/2018 None Full Exam - General 1994 Eyes conjunctiva /eyelids Overall: eyelids normal 02/19/2018 None Full Exam - General 1994 Ears/Nose/Throat otoscopic exam Overall: external auditory canals clear 02/19/2018 None Full Exam - General 1994 Ears/Nose/Throat otoscopic exam Tympanic membrane: air- fluid level 02/19/2018 None Full Exam - General 1995 Ears/Nose/Throat lips/teeth/gingiva Overall: benign lips 02/19/2018 None Full Exam - General 1995 Ears/Nose/Throat oral cavity/pharynx/larynx Overall: oral mucosa clear 02/19/2018 None Full Exam - General 1995 Ears/Nose/Throat oral cavity/pharynx/larynx Posterior Pharynx: clear post nasal drainage 02/19/2018 None Full Exam - General 1994 Respiratory auscultation Diffuse: diminished 02/19/2018 None Full Exam - General 1994 Respiratory auscultation Lower lung field: expiratory wheezes 02/19/2018 faint Full Exam - General 1994 Respiratory respiratory effort/rhythm Overall: no retractions 02/19/2018 None Full Exam - General 1994 Respiratory respiratory effort/rhythm Overall: normal rate 02/19/2018 None Full Exam - General 1994 Cardiovascular auscultation of heart Overall: regular rate 02/19/2018 None Full Exam - General 1994 Cardiovascular auscultation of heart Overall: normal heart sounds 02/19/2018 None Full Exam - General 1994 Lymphatic neck nodes Overall: anterior cervical chain benign 02/19/2018 None Full Exam - General 1994 Lymphatic neck nodes Overall: posterior cervical chain benign 02/19/2018 None Full Exam - General 1994 Integument inspection of skin Overall: few scattered moles, no gross abnormalities 02/19/2018 None Full Exam - General 1994 Neurologic cranial nerves Overall: crainial nerves 2 - 12 grossly intact 02/19/2018 None Full Exam - General 1994 Psychiatric orientation/consciousness Overall: oriented to person, place and time 02/19/2018 None Full Exam - General 1994 Psychiatric mood and affect Overall: normal mood and affect 02/19/2018 None Full Exam - General 1994 Constitutional general appearance Overall: well developed 01/08/2018 None Full Exam - General 1994 Constitutional general appearance Overall: in no acute distress 01/08/2018 None Full Exam - General 1994 Constitutional general appearance Overall: well nourished 01/08/2018 None Full Exam - General 1994 Eyes conjunctiva /eyelids Overall: conjunctiva clear 01/08/2018 None Full Exam - General 1994 Eyes conjunctiva /eyelids Overall: cornea clear 01/08/2018 None Full Exam - General 1994 Eyes conjunctiva /eyelids Overall: eyelids normal 01/08/2018 None Full Exam - General 1994 Ears/Nose/Throat lips/teeth/gingiva Overall: benign lips 01/08/2018 None Full Exam - General 1994 Ears/Nose/Throat oral cavity/pharynx/larynx Overall: oral mucosa clear 01/08/2018 None Full Exam - General 1994 Respiratory respiratory effort/rhythm Overall: normal rate 01/08/2018 None Full Exam - General 1994 Respiratory respiratory effort/rhythm Overall: no retractions 01/08/2018 None Full Exam - General 1994 Respiratory auscultation Overall: breath sounds clear bilaterally 01/08/2018 None Full Exam - General 1994 Cardiovascular auscultation of heart Overall: regular rate 01/08/2018 None Full Exam - General 1994 Cardiovascular auscultation of heart Overall: normal heart sounds 01/08/2018 None Full Exam - General 1994 Respiratory auscultation Diffuse: diminished 01/08/2018 None Full Exam - General 1994 Musculoskeletal head and neck Overall: head atraumatic 01/08/2018 None Full Exam - General 1994 Neurologic cranial nerves Overall: crainial nerves 2 - 12 grossly intact 01/08/2018 None Full Exam - General 1994 Psychiatric orientation/consciousness Overall: oriented to person, place and time 01/08/2018 None Full Exam - General 1994 Psychiatric mood and affect Overall: normal mood and affect 01/08/2018 None Full Exam - General 1994 Psychiatric appearance Overall: well-groomed, good eye contact 01/08/2018 None Full Exam - General 1994 Integument inspection of skin Location: left axilla 01/08/2018 None Full Exam - General 1994 Integument inspection of skin Location: right leg 01/08/2018 None Full Exam - General 1994 Integument inspection of skin Location: right axilla 01/08/2018 None Full Exam - General 1994 Integument inspection of skin Rash/Lesions: papule 01/08/2018 None Full Exam - General 1994 Integument inspection of skin Pigmentation: erythematous 01/08/2018 None Full Exam - Orthopedics Constitutional general appearance Overall: well nourished 11/23/2017 None Full Exam - Orthopedics Constitutional general appearance Overall: well developed 11/23/2017 None Full Exam - Orthopedics Constitutional general appearance Overall: in no acute distress 11/23/2017 None Full Exam - Orthopedics Eyes conjunctiva/ eyelids Overall: conjunctiva clear 11/23/2017 None Full Exam - Orthopedics Eyes conjunctiva/ eyelids Overall: eyelids normal 11/23/2017 None Full Exam - Orthopedics Ears/Nose/Throat lips/teeth/gingiva Overall: benign lips 11/23/2017 None Full Exam - Orthopedics Ears/Nose/Throat oral cavity/pharynx/larynx Overall: oral mucosa clear 11/23/2017 None Full Exam - Orthopedics Respiratory respiratory effort/rhythm Overall: no retractions 11/23/2017 None Full Exam - Orthopedics Respiratory respiratory effort/rhythm Overall: normal rate 11/23/2017 None Full Exam - Orthopedics Psychiatric orientation/consciousness Overall: oriented to person, place and time 11/23/2017 None Full Exam - Orthopedics Psychiatric mood and affect Overall: normal mood and affect 11/23/2017 None Full Exam - Orthopedics Psychiatric appearance Overall: well-groomed, good eye contact 11/23/2017 None Full Exam - Orthopedics MS: spine/rib/pelvis insp & palp - S/R/P Lumbar spine palpation: tender lumbar spinous processes 11/23/2017 None Full Exam - Orthopedics MS: left lower extremity insp & palp - LLE Lower leg: deformity 11/23/[address] Full Exam - ENT Constitutional general appearance Overall: well nourished 09/05/2017 None Full Exam - ENT Constitutional general appearance Overall: well developed 09/05/2017 None Full Exam - ENT Constitutional general appearance Overall: in no acute distress 09/05/2017 None Full Exam - ENT Ears/Nose/Throat otoscopic exam Overall: external auditory canals normal 09/05/2017 None Full Exam - ENT Ears/Nose/Throat otoscopic exam Left tympanic membrane: erythematous 09/05/2017 None Full Exam - ENT Ears/Nose/Throat otoscopic exam Right tympanic membrane: air-fluid level 09/05/2017 None Full Exam - ENT Ears/Nose/Throat lips/ teeth/gingiva Overall: benign lips 09/05/2017 None Full Exam - ENT Ears/Nose/Throat oropharynx Overall: oral mucosa clear 09/05/2017 None Full Exam - ENT Ears/Nose/Throat oropharynx Posterior Pharynx: clear post nasal drainage 09/05/2017 None Full Exam - ENT Ears/Nose/Throat oropharynx Posterior Pharynx: erythema 09/05/2017 None Full Exam - ENT Respiratory inspection Overall: no retractions 09/05/2017 None Full Exam - ENT Respiratory inspection Overall: normal rate None Full Exam - ENT Respiratory auscultation Diffuse: diminished None Full Exam - ENT Respiratory auscultation Right lower lung field: expiratory wheezes 09/05/2017 None Full Exam - ENT Cardiovascular auscultation of heart Rate: normal rate 09/05/2017 None Full Exam - ENT Cardiovascular auscultation of heart Rhythm: regular rhythm 09/05/2017 None Full Exam - ENT Lymphatic palpation of lymph nodes Overall: anterior cervical chain benign 09/05/2017 None Full Exam - ENT Lymphatic palpation of lymph nodes Overall: posterior cervical chain benign 09/05/2017 None Full Exam - ENT Neurologic mood and affect Overall: normal mood 09/05/2017 None Full Exam - ENT Neurologic mood and affect Overall: normal affect 09/05/2017 None Full Exam - ENT Neurologic orientation Overall: oriented to person, place and time 09/05/2017 None Full Exam - ENT Ears/Nose/Throat otoscopic exam Left tympanic membrane: air -fluid level 09/05/2017 None Full Exam - ENT Ears/Nose/Throat otoscopic exam Right tympanic membrane: erythematous 09/05/2017 mild Full Exam - ENT Musculoskeletal head and neck Overall: head atraumatic 09/05/2017 None Full Exam - Orthopedics Constitutional general [...] 1+ 08/03/2015 None Procedures Procedure Codes Date THER/PROPH/DIAG INJ SC/IM CPT-4: 52523 06/05/2018 ROCEPHIN, PER 250 MG CPT-4: J0696 06/05/2018 REMOVAL OF SKIN TAGS <W/15 CPT-4: 57460 03/14/2018 FLU VAC NO PRSV 4 PRECIOUS 3 YRS+ CPT-4: 06843 03/14/2018 IMMUNIZATION ADMIN CPT -4: 59894 03/14/2018 TRIAMCINOLONE ACET INJ NOS CPT-4: J3301 02/19/2018 THER/PROPH/DIAG INJ SC/IM CPT-4: 47299 02/19/2018 THER/PROPH/DIAG INJ SC/IM CPT-4: 36476 09/05/2017 TRIAMCINOLONE ACET INJ NOS CPT-4: J3301 09/05/2017 IMMUNIZATION ADMIN CPT -4: 31248 04/24/2017 FLU VAC NO PRSV 4 PRECIOUS 3 YRS+ CPT-4: 78171 04/24/2017 DRAIN/INJECT JOINT/BURSA CPT-4: 72614 04/24/2017 TRIAMCINOLONE ACET INJ NOS CPT-4: J3301 04/24/2017 THER/PROPH/DIAG INJ SC/IM CPT-4: 37270 01/09/2017 TRIAMCINOLONE ACET INJ NOS CPT-4: J3301 01/09/2017 THER/PROPH/DIAG INJ SC/IM CPT-4: 88205 04/13/2016 Pneumococcal Polysaccharide Vaccine, 23-Valent, Ad CPT-4: 13927 04/13/2016 INJECT TRIGGER POINTS 3/> CPT-4: 08815 04/06/2016 TRIAMCINOLONE ACET INJ NOS CPT-4: J3301 04/06/2016 IMMUNIZATION ADMIN CPT -4: 45208 03/30/2016 IIV4 FLU VACC NO PRESERV ID SNOMED CT: [id number] CPT-4: 66031 03/30/2016 TRIAMCINOLONE ACET INJ NOS CPT-4: J3301 02/28/2016 THER/PROPH/DIAG INJ SC/IM CPT-4: 14440 02/28/2016 TRIAMCINOLONE ACET INJ NOS CPT-4: J3301 08/20/2015 Vital Signs Date Vital 06/28/2018 Blood Pressure 1: 122/76 Code : 8480-6 Heart Rate 1: 107 bpm SpO2: 95% Weight: 214 lbs 06/17/2018 Blood Pressure 1: 128/74 Code : 8480-6 Heart Rate 1: 112 bpm Height: 4'11" SpO2: 97% Temperature: 36.9 (C) / 98.4 (F) Weight: 06/05/2018 Blood Pressure 1: 127/74 Code : 8480-6 BMI: 42.4 Code : 89448-4 Heart Rate 1 : 78 bpm Height: 4'11" SpO2: 97% Weight: 210 lbs 03/26/2018 Blood Pressure 1: 128/74 Code : 8480-6 BMI: 43.0 Code : 00642-2 Heart Rate 1 : 120 bpm Height: 4'11 " SpO2: 97% Weight: 213 lbs 03/14/2018 Blood Pressure 1: 120/74 Code : 8480-6 BMI: 43.0 Code : 16469-9 Heart Rate 1 : 114 bpm Height: 4'11 " SpO2: 95% Weight: 213 lbs 03/07/2018 Blood Pressure 1: 132/74 Code : 8480-6 BMI: 43.8 Code : 09115-3 Heart Rate 1 : 123 bpm Height: 4'11 " SpO2: 94% Weight: 217 lbs 02/19/2018 Blood Pressure 1: 140/76 Code : 8480-6 Heart Rate 1: 109 bpm Height: 4'11" SpO2: 94% Temperature: 36.9 (C) / 98.4 (F) Weight: 01/08/2018 Blood Pressure 1: 134/80 Code : 8480-6 Heart Rate 1: 107 bpm Height: SpO2: 98% Weight: 11/23/2017 Blood Pressure 1: 130/78 Code : 8480-6 Heart Rate 1: 90 bpm Height: SpO2: 98% Weight: 09/05/2017 Blood Pressure 1: 134/86 Code : 8480-6 BMI: 45.4 Code : 64093-9 Heart Rate 1 : 108 bpm Height: 4'11 " SpO2: 95% Weight: 225 lbs 06/07/2017 Blood Pressure 1: 13274 Code : 8480-6 Heart Rate 1: 99 bpm Height: 4'11" SpO2: 95% 04/24/2017 Blood Pressure 1: 132/8096 Code: 8480-6 BMI: 47.7 Code: 20923-4 Heart Rate 1: 96 bpm Height: 4'11" Weight: 236 lbs 01/09/2017 Blood Pressure 1: 12274 Code : 8480-6 BMI: 46.0 Code : 31304-3 Heart Rate 1 : 114 bpm Height: 4'11 " SpO2: 98% Temperature: 37.1 (C) / 98.7 (F) Weight: 228 lbs 10/30/2016 Blood Pressure 1: 124 Code : 8480-6 BMI: 49.1 Code : 12329-4 Heart Rate 1 : 90 bpm Height: 4'11" SpO2: 97% Weight: 243 lbs 10/09/2016 Blood Pressure 1: 12480 Code : 8480-6 BMI: 49.3 Code : 15894-2 Heart Rate 1 : 91 bpm Height: 4'11" SpO2: 98% Weight: 244 lbs 09/12/2016 Blood Pressure 1: 128/80 Code : 8480-6 BMI: 49.1 Code : 88406-6 Heart Rate 1 : 94 bpm Height: 4'11" SpO2: 95% Weight: 243 lbs 09/05/2016 Blood Pressure 1: 11874 Code : 8480-6 BMI: 49.1 Code : 64411-9 Heart Rate 1 : 100 bpm Height: 4'11 " SpO2: 97% Weight: 243 lbs 06/16/2016 Blood Pressure 1: 120/62 Code : 8480-6 BMI: 49.1 Code : 86470-4 Heart Rate 1 : 100 bpm Height: 4'11 " SpO2: 96% Temperature: 36.7 (C) / 98.0 (F) Weight: 243 lbs 06/13/2016 Blood Pressure 1: 120/70 Code : 8480-6 Heart Rate 1: 117 bpm SpO2: 97% 05/19/2016 Blood Pressure 1: 130/64 Code : 8480-6 BMI: 49.1 Code : 26433-4 Heart Rate 1 : 101 bpm Height: 4'11 " SpO2: 96% Weight: 243 lbs 05/08/2016 Blood Pressure 1: 128/76 Code : 8480-6 Heart Rate 1: 119 bpm Height: SpO2: 97% Weight: 05/05/2016 Blood Pressure 1: 124/76 Code : 8480-6 BMI: 49.1 Code : 34679-0 Heart Rate 1 : 75 bpm Height: 4'11" SpO2: 99% Weight: 243 lbs 04/10/2016 Blood Pressure 1: 140/80 Code : 8480-6 BMI: 49.7 Code : 47338-4 Heart Rate 1 : 88 bpm Height: 4'11" SpO2: 95% Weight: 246 lbs 04/06/2016 Blood Pressure 1: 134/82 Code : 8480-6 BMI: 75.1 Code : 33225-2 Heart Rate 1 : 72 bpm Height: 4' SpO2: 96% Weight: 246 lbs 03/08/2016 Blood Pressure 1: 126/72 Code : 8480-6 BMI: 49.7 Code : 88113-4 Heart Rate 1 : 89 bpm Height: 4'11" SpO2: 97% Weight: 246 lbs 02/28/2016 Blood Pressure 1: 124/68 Code : 8480-6 BMI: 49.7 Code : 09610-9 Heart Rate 1 : 89 bpm Height: 4'11" SpO2: 96% Weight: 246 lbs 01/18/2016 Blood Pressure 1: 142/78 Code : 8480-6 BMI: 48.9 Code : 08696-7 Heart Rate 1 : 97 bpm Height: 4'11" SpO2: 97% Weight: 242 lbs 12/23/2015 Blood Pressure 1: 124/74 Code : 8480-6 BMI: 48.9 Code : 36031-4 Heart Rate 1 : 106 bpm Height: 4'11 " SpO2: 96% Weight: 242 lbs 12/16/2015 Blood Pressure 1: 116/82 Code : 8480-6 BMI: 48.3 Code : 35979-9 Heart Rate 1 : 111 bpm Height: 4'11 " SpO2: 97% Weight: 239 lbs 11/11/2015 Blood Pressure 1: 130/80 Code : 8480-6 BMI: 49.7 Code : 50337-2 Heart Rate 1 : 105 bpm Height: 4'11 " SpO2: 96% Weight: 246 lbs 10/27/2015 Blood Pressure 1: 122/70 Code : 8480-6 BMI: 49.5 Code : 31632-1 Heart Rate 1 : 107 bpm Height: 4'11 " SpO2: 96% Weight: 245 lbs 10/13/2015 Blood Pressure 1: 140/82 Code : 8480-6 BMI: 50.9 Code : 56663-1 Heart Rate 1 : 111 bpm Height: 4'11 " SpO2: 96% Weight: 252 lbs 10/05/2015 Blood Pressure 1: 118/70 Code : 8480-6 BMI: 51.1 Code : 66310-7 Heart Rate 1 : 120 bpm Height: 4'11 " SpO2: 97% Weight: 253 lbs 09/01/2015 Blood Pressure 1: 132/82 Code : 8480-6 BMI: 50.1 Code : 99833-8 Heart Rate 1 : 110 bpm Height: 4'11 " SpO2: 96% Weight: 248 lbs 08/20/2015 Blood Pressure 1: 132/78 Code : 8480-6 BMI: 51.7 Code : 36458-3 Heart Rate 1 : 100 bpm Height: 4'11 " Weight: 256 lbs 08/03/2015 Blood Pressure 1: 148/92 Code : 8480-6 BMI: 52.1 Code : 60014-4 Heart Rate 1 : 100 bpm Height: 4'11 " SpO2: 97% Weight: 258 lbs Functional Status No Functional Status data History of Present Illness Symptom Name Status Result Effective Date Notes Quality acute 2018 None Quality improving 04/2019 None Location axilla 06/28 right Pertinent Findings fever 06/28/2018 None Onset and Resolution ongoing 06/28/2018 None Quality Denies chronic 06/28/2018 None Quality Denies intermittent 06/28/2018 None Quality Denies worsening 06/28/2018 None Onset and Resolution ongoing 06/28/2018 None Pertinent Findings Denies fever 06/28/2018 None Pertinent Findings weight loss 06/28/2018 None Pertinent Findings Denies dyspnea 06/28/2018 None Onset and Resolution sudden in onset 06/17/2018 None Onset of Symptom 2.5 weeks ago 06/17/2018 None Location axilla 06/17 right Quality acute 2017 None Quality improving None Pertinent Findings fever 06/17/2018 None Onset and Resolution sudden in onset 06/05/2018 None Onset of Symptom 1 weeks ago 06/05/2018 None Location axilla 06/05 right chest congestion Quality constant 03/26/2018 None chest congestion Quality thick secretions 03/26/2018 None chest congestion Onset and Resolution ongoing 03/26/2018 None chest congestion Pertinent Findings cough 03/26/2018 None chest congestion Pertinent Findings decreased energy 03/26/2018 None chest congestion Pertinent Findings sputum production 03/26/2018 None cough Location in the throat 03/14/2018 None cough Quality constant 03/14/2018 None cough Quality dry None cough Onset and Resolution ongoing 03/14/2018 None cough Frequency of Episodes daily 03/14/2018 None acrochordon (skin tags) Location in the left axilla 03/14/2018 None acrochordon (skin tags) Location on the left leg 03/14/2018 None acrochordon (skin tags) Location on the trunk 03/14/2018 None acrochordon (skin tags) Onset and Resolution ongoing 03/14/2018 None cough Quality constant 03/07/2018 None cough Quality dry None cough Onset and Resolution ongoing 03/07/2018 None cough Location in the throat 03/07/2018 None cough Onset of Symptom 3 weeks ago 03/07/2018 None cough Frequency of Episodes daily 03/07/2018 None sinus congestion Quality constant 02/19/2018 None sinus congestion Quality pressure 02/19/2018 None sinus congestion Quality fullness 02/19/2018 None sinus congestion Onset and Resolution sudden in onset 02/19/2018 None sinus congestion Onset of Symptom 4 days ago 02/19/2018 None sinus congestion Frequency of Episodes daily 02/19/2018 None sore throat Location diffusely 02/19/2018 None sore throat Quality aching 02/19/2018 None sore throat Quality constant 02/19/2018 None sore throat Quality burning 02/19/2018 None sore throat Onset and Resolution sudden in onset 02/19/2018 None sore throat Onset of Symptom 4 days ago 02/19/2018 None sore throat Frequency of Episodes daily 02/19/2018 None rash Location-Extremities in the left axilla 01/08/2018 None rash Location-Extremities in the right axilla 01/08/2018 None rash Location-Extremities on the right lower leg 01/08/2018 None rash Quality acute None rash Color erythematous 01/08/2018 None rash Pertinent Findings Denies pain 01/08/2018 None dysuria Quality acute 01/08/2018 None dysuria Onset and Resolution sudden in onset 01/08/2018 None dysuria Pertinent Findings Denies fever 01/08/2018 None back pain Location lumbar-sacral spine 11/23/2017 None back pain Quality acute 11/23/2017 None back pain Onset and Resolution ongoing 11/23/2017 None back pain Pertinent Findings Denies fever 11/23/2017 None back pain Pertinent Findings sleep disturbance 11/23/2017 None sinus congestion Location frontal sinuses 09/05/2017 None sinus congestion Quality constant 09/05/2017 None sinus congestion Quality fullness 09/05/2017 None sinus congestion Onset and Resolution sudden in onset 09/05/2017 None sinus congestion Onset of Symptom 4 days ago 09/05/2017 None sinus congestion Frequency of Episodes daily 09/05/2017 None sore throat Location diffusely 09/05/2017 None sore throat Quality aching 09/05/2017 None sore throat Quality constant 09/05/2017 None sore throat Quality scratchy 09/05/2017 None sore throat Onset and Resolution sudden in onset 09/05/2017 None sore throat Onset of Symptom 4 days ago 09/05/2017 None sore throat Frequency of Episodes daily 09/05/2017 None shortness of breath Quality breathlessness 06/07/2017 None [...] Codes Date EST. PATIENT, LEVEL III Diagnosis: Cellulitis of right axilla[ICD10: L03.111] Diagnosis: Diarrhea, unspecified[ICD10: R19.7] Gloria Hess MD, [facility] CPT-4: 05481 06/28/2018 03521) 23288 EST. PATIENT, LEVEL II Diagnosis: Cellulitis of right axilla[ICD10: L03.111] Tamy Hess MD, [facility] CPT-4: 85651 06/17/2018 35100 EST. PATIENT, LEVEL III Diagnosis: Cellulitis of right axilla[ICD10: L03.111] Diagnosis: Type 2 diabetes mellitus with hyperglycemia[ICD10: E11.65] Gloria Hess MD, [facility] CPT-4: 62724 06/05/2018 66184 EST. PATIENT, LEVEL III Diagnosis: Gastro-esophageal reflux disease without esophagitis[ICD10: K21.9] Diagnosis: Other allergic rhinitis[ICD10: J30.89] Diagnosis: Cough[ICD10: R05] Gloria Hess MD, [facility] CPT-4: 29023 03/26/2018 ([id number]) 06129 EST. PATIENT, LEVEL III Diagnosis: Cough[ICD10: R05] Gloria Hess MD, [facility] CPT-4: 87053 03/14/2018 92604 EST. PATIENT, LEVEL IV Diagnosis: Acute laryngopharyngitis[ICD10: J06.0] Diagnosis: Other allergic rhinitis[ICD10: J30.89] Diagnosis: Cough[ICD10: R05] Gloria Hess MD, [facility] CPT-4: 56520 03/07/2018 58935 EST. PATIENT, LEVEL IV Diagnosis: Acute bronchitis due to other specified organisms[ICD10: J20.8] Diagnosis: Acute laryngopharyngitis[ICD10: J06.0] Gloria Hess MD, [facility] CPT-4: 66625 02/19/2018 30082 EST. PATIENT, LEVEL IV Diagnosis: Candidiasis of vulva and vagina[ICD10: B37.3] Diagnosis: Rash and other nonspecific skin eruption[ICD10: R21] Gloria Hess MD, [facility] CPT-4: 74684 01/08/2018 43765 EST. PATIENT, LEVEL III Diagnosis: Sacrococcygeal disorders, not elsewhere classified[ICD10: M53.3] Diagnosis: Low back pain[ICD10: M54.5] Gloria Hess MD, [facility] CPT-4 : 22837 11/23/2017 94922 EST. PATIENT, LEVEL III Diagnosis: Acute laryngopharyngitis[ICD10: J06.0] Diagnosis: Other allergic rhinitis[ICD10: J30.89] Diagnosis: Acute bronchitis due to other specified organisms[ICD10: J20.8] Gloria Hess MD, [facility] CPT-4: 20254 09/05/2017 60679 EST. PATIENT, LEVEL III Diagnosis: Pain in left foot[ICD10: M79.672] Diagnosis: Rash and other nonspecific skin eruption[ICD10: R21] Diagnosis: Candidiasis of vulva and vagina[ICD10: B37.3] Diagnosis: Localized edema[ICD10: R60.0] Diagnosis: Dyspnea, unspecified[ICD10: R06.00] Gloria Hess MD, [facility] CPT-4: 35730 06/07/2017 43592 EST. PATIENT, LEVEL III Diagnosis: Low back pain[ICD10: M54.5] Diagnosis: Sacroiliitis, not elsewhere classified[ICD10: M46.1] Diagnosis: Pain in left foot[ICD10: M79.672] Diagnosis: VACCIN FOR INFLUENZA[ICD10: Z23] Gloria Hess MD, [facility] CPT- 4: 39103 04/24/2017 64563 EST. PATIENT, LEVEL III Diagnosis: Acute suppurative otitis media without spontaneous rupture of ear drum, right ear[ICD10: H66.001] Diagnosis: Other allergic rhinitis[ICD10: J30.89] Gloria Hess MD, [facility] CPT-4: 79478 01/09/2017 22860 EST. PATIENT, LEVEL IV Diagnosis: Candidiasis of vulva and vagina[ICD10: B37.3] Diagnosis: Type 2 diabetes mellitus with hyperglycemia[ICD10: E11.65] Gloria Hess MD, [facility] CPT-4: 18773 10/30/2016 36116 EST. PATIENT, LEVEL III Diagnosis: Candidiasis of vulva and vagina[ICD10: B37.3] Diagnosis: Type 2 diabetes mellitus with hyperglycemia[ICD10: E11.65] Gloria Hess MD, [facility] CPT-4: 00833 10/09/2016 71661 EST. PATIENT, LEVEL IV Diagnosis: Umbilical hernia without obstruction or gangrene[ICD10: K42.9] Gloria Hess MD, [facility] CPT-4: 77683 09/12/2016 14905 EST. PATIENT, LEVEL III Diagnosis: Epigastric pain[ICD10: R10.13] Diagnosis: Candidiasis of vulva and vagina[ICD10: B37.3] Diagnosis: Type 2 diabetes mellitus with hyperglycemia[ICD10: E11.65] Gloria Hess MD, [facility] CPT-4: 91021 09/05/2016 53140 EST. PATIENT, LEVEL III Diagnosis: Acute laryngopharyngitis[ICD10: J06.0] Diagnosis: Other allergic rhinitis[ICD10: J30.89] Gloria Hess MD, [facility] CPT-4: 64859 06/16/2016 67943 EST. PATIENT, LEVEL III Diagnosis: Type 2 diabetes mellitus with hyperglycemia[ICD10: E11.65] Diagnosis: Other obesity due to excess calories[ICD10: E66.09] Gloria Hess MD, [facility] CPT-4: 07971 06/13/2016 90323 EST. PATIENT, LEVEL III Diagnosis: Type 2 diabetes mellitus with hyperglycemia[ICD10: E11.65] Diagnosis: Other obesity due to excess calories[ICD10: E66.09] Gloria Hess MD, [facility] CPT-4: 42501 05/19/2016 44822 EST. PATIENT, LEVEL III Diagnosis: Type 2 diabetes mellitus with hyperglycemia[ICD10: E11.65] Diagnosis: Other obesity due to excess calories[ICD10: E66.09] Gloria Hess MD, [facility] CPT-4: 20325 05/08/2016 08091 EST. PATIENT, LEVEL III Diagnosis: Type 2 diabetes mellitus without complications[ICD10: E11.9] Gloria Hess MD , [facility] CPT-4: 20553 05/05/2016 65813 EST. PATIENT, LEVEL III Diagnosis: Pain in right shoulder[ICD10: M25.511] Gloria Hess MD, [facility] CPT-4: 44348 04/10/2016 24947 EST. PATIENT, LEVEL III Diagnosis: Pain in right shoulder[ICD10: M25.511] Diagnosis: Other muscle spasm[ICD10: M62.838] Diagnosis: Type 2 diabetes mellitus without complications[ICD10: E11.9] Gloria Hess MD , [facility] CPT-4: 22241 04/06/2016 45112 EST. PATIENT, LEVEL IV Diagnosis: Acute bronchitis due to other specified organisms[ICD10: J20.8] Diagnosis: Other acute sinusitis[ICD10: J01.80] Diagnosis: Acne vulgaris[ICD10: L70.0] Diagnosis: Morbid (severe) obesity due to excess calories[ICD10: E66.01] Gloria Hess MD , [facility] CPT-4: 22087 03/08/2016 29909 EST. PATIENT, LEVEL IV Diagnosis: Other acute sinusitis[ICD10: J01.80] Diagnosis: Localized enlarged lymph nodes[ICD10: R59.0] Gloria Hess MD, [facility] CPT-4: 64010 02/28/2016 21360 EST. PATIENT, LEVEL III Diagnosis: Type 2 diabetes mellitus without complications[ICD10: E11.9] Gloria Hess MD , [facility] CPT-4: 38429 01/18/2016 ([id number]) PREV VISIT EST AGE 40-64 Diagnosis: Encounter for gynecological examination (general) (routine) without abnormal findings[ICD10: Z01.419] Diagnosis: Excessive and frequent menstruation with irregular cycle[ICD10: N92.1 ] Gloria Hess MD, [facility] CPT-4: 30967 12/23/2015 39892 EST. PATIENT, LEVEL III Diagnosis: Type 2 diabetes mellitus without complications[ICD10: E11.9] Gloria Hess MD , [facility] CPT-4: 91993 12/16/2015 45673 EST. PATIENT, LEVEL III Diagnosis: Type 2 diabetes mellitus without complications[ICD10: E11.9] Diagnosis: Other obesity due to excess calories[ICD10: E66.09] Gloria Hess MD, [facility] CPT-4: 51665 11/11/2015 30901 EST. PATIENT, LEVEL III Diagnosis: Type 2 diabetes mellitus without complications[ICD10: E11.9] Diagnosis: Other obesity due to excess calories[ICD10: E66.09] Gloria Hess MD, [facility] CPT-4: 44219 10/27/2015 79445 EST. PATIENT, LEVEL III Diagnosis: Type 2 diabetes mellitus without complications[ICD10: E11.9] Diagnosis: Other obesity due to excess calories[ICD10: E66.09] Diagnosis: Other insomnia[ICD10: G47.09] Gloria Hess MD, [facility] CPT-4 : 94107 10/13/2015 89868 EST. PATIENT, LEVEL IV Diagnosis: Acute recurrent maxillary sinusitis[ICD10: J01.01] Diagnosis: Allergic rhinitis due to pollen[ICD10: J30.1] Diagnosis: Other obesity due to excess calories[ICD10: E66.09] Gloria Hess MD, [facility] CPT-4: 36980 10/05/2015 54891 EST. PATIENT, LEVEL IV Diagnosis: Polycystic ovarian syndrome[ICD10: E28.2] Diagnosis: Other skin changes[ICD10: R23.8] Diagnosis: Other abnormal glucose[ICD10: R73.09] Gloria Hess MD, [facility] CPT-4: 32416 09/01/2015 47634 EST. PATIENT, LEVEL IV Diagnosis: Acute recurrent maxillary sinusitis[ICD10: J01.01] Diagnosis: Morbid (severe) obesity due to excess calories[ICD10: E66.01] Diagnosis: Essential (primary) hypertension[ICD10: I10] Diagnosis: Allergic rhinitis due to pollen[ICD10: J30.1] [facility] CPT-4: 02966 08/20/2015 ([id number]) OFFICE VISIT, NEW - LEVEL 4 Diagnosis: Essential (primary) hypertension[ICD10: I10] Diagnosis: Obstructive sleep apnea (adult) (pediatric)[ICD10: G47.33] Diagnosis: Other insomnia[ICD10: G47.09] Diagnosis: Snoring[ICD10: R06.83] Diagnosis: Morbid (severe) obesity due to excess calories[ICD10: E66.01] Gloria Hess MD , [facility] CPT-4: 05705 08/03/2015 Plan of Care Planned Activity Notes Codes Status Date Referral: Roni Roberts pt will be notified by there office to schedule Initiated 07/03/2018 Care Plan: Referral Order SNOMED-CT : [id number] Pending 07/01/2018 Visit Plan: Abscess/Cellulitis - The patient was instructed in appropriate wound care. The patient was instructed to use the antibiotic ointment as per RX. The patient is to call for any change in symptoms , increase in size of the lesion, increase in pain, worsening redness, warmth, discharge. Diarrhea - Will send RX and refer for colonoscopy - recommended bland diet, low fat diet, start on probiotic, and rehydrate with gatorade-like product. Pt to call if feeling worse, diarrhea becomes bloody, or does not improve with above recommendations. Pt to call for acute worsening of stomach upset or stomach pain. 06/28/2018 Appointment: [phone] ([facility] Complex 06/28/2018 Patient Education: Patient Medication Summary Completed 06/28/2018 Visit Plan: Cellulitis-right cgbzrg-yxhdigkt-jzt bactroban ointment until healed completely-call with any concerns 06/17/2018 Appointment: Tamy Lugo WPtel: [phone] [place] (15 min) Moderate 06/17/2018 Patient Education: Patient Medication Summary Completed 06/17/2018 Visit Plan: Abscess/Cellulitis - The patient was instructed in appropriate wound care. The patient was instructed to use the antibiotic ointment as per RX. The patient is to call for any change in symptoms , increase in size of the lesion, increase in pain, worsening redness, warmth, discharge. 06/05/2018 Appointment: Gloria Scott WPtel: [address] [place], [place] [id number] (30 min) Complex 06/05/2018 Patient Education: Patient Medication Summary Completed 06/05/2018 Patient Education: Diabetes Completed 06/05/2018 Referral: Wilner [address] Referral Initiated 04/19/2018 Care Plan: Referral Order SNOMED-CT : [id number] Pending 03/27/2018 Visit Plan: Esophageal Reflux - the patient has been counseled against excessive intake of caffeine, spicy foods, peppermint, and cinnamon - all of which can exacerbate esophageal reflux. The patient is to take medications as prescribed and call the office if the symptoms are not improving. Allergies - chronic - recommended pt to [...] spray in the nasal steroid allergy spray. 03/26/2018 Appointment: Gloria Scott WPtel: [facility] [place] (15 min) Moderate 03/26/2018 Patient Education: Patient Medication Summary Completed 03/26/2018 Appointment: Gloria Scott WPtel: [address] [place], [place] [id number] [place] (15 min) Moderate 03/25/2018 Visit Plan: Skin tag removal - irritated skin tags identified - Consent signed and on the chart. Patient placed in appropriate position for lesion removal. The areas were prepped and draped. The lesions were infiltrated with 1% lidocaine WITH epinephrine. 1 ml of anesthetic agent utilized. 11 blade scalpel utilized to remove skin tags x 3 - Patient tolerated procedure well, minimal blood loss. Areas dressed wtih neosporin and bandaids. 03/14/2018 Visit Plan: Skin tag removal - irritated skin tags identified - Consent signed and on the chart. Patient placed in appropriate position for lesion removal. The areas were prepped and draped. The lesions were infiltrated with 1% lidocaine WITH epinephrine. 1 ml of anesthetic agent utilized. 11 blade scalpel utilized to remove skin tags x 3 - Patient tolerated procedure well, minimal blood loss. Areas dressed wtih neosporin and bandaids. 03/14/2018 Visit Plan: Cough - continue with singulair. Skin tag removal - irritated skin tags identified - Consent signed and on the chart. Patient placed in appropriate position for lesion removal. The areas were prepped and draped. The lesions were infiltrated with 1% lidocaine WITH epinephrine. 1 ml of anesthetic agent utilized. 11 blade scalpel utilized to remove skin tags x 3 - Patient tolerated procedure well, minimal blood loss. Areas dressed wtih neosporin and bandaids. 03/14/2018 Visit Plan: Skin tag removal - irritated skin tags identified - Consent signed and on the chart. Patient placed in appropriate position for lesion removal. The areas were prepped and draped. The lesions were infiltrated with 1% lidocaine WITH epinephrine. 1 ml of anesthetic agent utilized. 11 blade scalpel utilized to remove skin tags x 3 - Patient tolerated procedure well, minimal blood loss. Areas dressed wtih neosporin and bandaids. 03/14/2018 Appointment: Gloria Scott WPtel: [address] [place], [place] [id number] (15 min) Moderate 03/14/2018 Patient Education: Patient Medication Summary Completed 03/14/2018 Visit Plan: Allergies - chronic - recommended pt to [...] spray in the nasal steroid allergy spray. URI - Pt advised to increase fluids, vitamin C. Discussed natural and expected course of this diagnosis and need to alert me if symptoms do not follow expected course, or if any worse. RX sent to patient's pharmacy. tachycardia - pt has not been consistently taking her metoprolol - pt is to take her medication as directed and notify clinic if symptoms do not improve 03/07/2018 Appointment: Gloria Scott WPtel: [address] (15 min) Moderate 03/07/2018 Patient Education: Patient Medication Summary Completed 03/07/2018 Visit Plan: URI - Pt advised to increase fluids, vitamin C. Discussed natural and expected course of this diagnosis and need to alert me if symptoms do not follow expected course, or if any worse. RX sent to patient' s pharmacy. Bronchitis - acute case of bronchitis identified. Pt has been given antibiotics, breathing treatments as appropriate, and pt has been instructed to call if symptoms are not improved, or if symptoms acutely worsen. 02/19/2018 Appointment: Gloria Scott WPtel: [address] (15 min) Moderate 02/19/2018 Patient Education: Patient Medication Summary Completed 02/19/2018 Visit Plan: Vaginal candidiasis - will send RX - pt is to notify clinic if symptoms do not improve, if they worsen, or with any questions or concerns. Rash - will send for culture - The patient was instructed to use the antibiotic as per RX. The patient is to call for any change in symptoms, increase in size of the lesion, increase in pain, worsening redness, warmth, discharge. 01/08/2018 Appointment: Gloria Scott WPtel: 1015 [facility] (30 min) Complex 01/08/2018 Patient Education: Patient Medication Summary Completed 01/08/2018 Visit Plan: Low back pain - the patient was instructed in appropriate posture, need for weight loss to alleviate abdominal obesity that is worsening the patient's back pain.. The pt is to use prn antiinflammatories to manage acute pain. The patient is to call the office if the pain is worsening or does not improve. 11/23/2017 Patient Education: Patient Medication Summary Completed 11/23/2017 Visit Plan: URI - Pt advised to [...] spray in the nasal steroid allergy spray. Bronchitis - acute case of bronchitis identified. Pt has been given antibiotics , steroids as appropriate, and pt has been instructed to call if symptoms are not improved, or if symptoms acutely worsen. 09/05/2017 Appointment: Gloria Scott WPtel: 1015 [facility] (15 min) Moderate 09/05/2017 Patient Education: Patient Medication Summary Completed 09/05/2017 Patient Education: Patient Medication Summary Completed 06/13/2017 [...] send RX 06/07/2017 Appointment: Gloria Scott WPtel: [phone] [facility] (15 min) Moderate 06/07/2017 Patient Education: Patient [...] of injection. 04/24/2017 Appointment: Gloria Scott WPtel: [facility] [address] (30 min) Complex 04/24/2017 Patient Education: Patient Medication Summary Completed 04/24/2017 Appointment: Gloria Scott WPtel: [facility] [address] (30 min) Complex 03/09/2017 Appointment: Gloria Scott WPtel: [address] [place] [address] (30 min) Complex 02/13/2017 Visit Plan: Otitis [...] allergy spray. 01/09/2017 Appointment: Gloria Scott WPtel: [facility]6 [facility] (10 min) Simple 01/09/2017 Patient Education: Patient Medication Summary Completed 01/09/2017 Patient Education: Obesity Completed 01/09/2017 Visit Plan: Vaginal candidiasis - will send RX - pt is to notify clinic if symptoms do not improve, if they worsen, or with any questions or concerns. Diabetes Mellitus - Uncontrolled - Will refer to outboard system operator - I have recommended for the patient [...] Mellitus - Uncontrolled - Will refer to outboard system operator - I have recommended for the patient [...] glucose control. 10/09/2016 Appointment: Gloria Scott WPtel: [facility] ([facility] 10/09/2016 Patient Education: Patient Medication Summary Completed 10/09/2016 Patient Education: Obesity Completed 10/09/2016 Referral: Roni Roberts Referral Completed 09/18/2016 Care Plan: CT ABD & PELV W/CONTRAST LOINC : 30834-6 Pending 09/13/2016 Care Plan: Referral Order SNOMED-CT : [id number] Pending 09/13/2016 Visit Plan: Ongoing abdominal pain/hernia - will send RX - will refer - pt is to notify clinic if symptoms do not improve, if they worsen, or with any questions or concerns. 09/12/2016 Appointment: Gloria Scott [facility]Ptel[phone] [place] (30 min) Complex 09/12/2016 Patient Education: Patient Medication Summary Completed 09/12/2016 Patient Education: Obesity Completed 09/12/2016 Care Plan: Referral Order SNOMED-CT : [id number] Pending 09/12/2016 Visit Plan: Ongoing abdominal/epigastric pain [...] glucose control. 09/05/2016 Appointment: Gloria Scott WPtel: [address] [place], [place] [id number] (30 min) Complex 09/05/2016 Patient Education: Patient [...] allergy spray. 06/16/2016 Appointment: Gloria Scott WPtel: [facility] (10 min) Simple 06/16/2016 Patient Education: [...] weight check. 06/13/2016 Appointment: [facility]el[phone] ([facility] min) Complex 06/13/2016 Patient Education: Patient Medication Summary Completed 06/13/2016 Patient Education: Obesity Completed 06/13/2016 Appointment: [facility]Ptel[facility] [place] (30 min) Complex 06/08/2016 Visit Plan: Diabetes [...] weight check. 05/19/2016 Appointment: Tamy Lugo [facility]Ptel[id number] [place] (30 min) Complex 05/19/2016 Patient Education: Patient [...] weight check. 05/08/2016 Appointment: Gloria Scott WPtel: [phone] [facility] (15 min) Moderate 05/08/2016 Patient Education: Patient [...] the morning. 05/05/2016 Appointment: Tamy Lugo [facility]Ptel[phone] [place] (15 min) Moderate 05/05/2016 Patient Education: Patient Medication Summary Completed 05/05/2016 Patient Education: Obesity Completed 05/05/2016 Care Plan: Comp Metabolic Pending 05/05/2016 [facility]ment[phone] [place] [facility] 04/17/2016 Appointment: Injection 04/13/2016 Patient Education: Patient Medication Summary Completed 04/13/2016 Visit Plan: Right shoulder pain - will refer to PT - The pt is to use prn antiinflammatories to manage acute pain. The patient is to call the office if the pain is worsening or does not improve. 04/10/2016 Appointment: Gloria Scott WPtel: 1013 [facility] (30 min) Complex 04/10/2016 Patient Education: Patient [...] glucose control. 04/06/2016 Appointment: Gloria Scott WPtel: [phone] [facility] (15 min) Moderate 04/06/2016 Patient Education: Patient [...] order US 02/28/2016 Appointment: Gloria Scott [facility]Ptel[phone] (30 min) Complex 02/28/2016 Patient Education: Patient Medication Summary Completed 02/28/2016 Patient Education: Obesity Completed 02/28/2016 Appointment: Gloria Scott [facility]Ptel: [facility] [place] (15 min) Moderate 01/31/2016 Visit Plan: Diabetes [...] prn. 12/23/2015 Appointment: Gloria Scott [facility]Ptel[phone] [facility] 12/23/2015 Patient Education: Patient [...] %Hba1C ADD TO BLOOD IN THE LAB. [facility] : 27330-2 Pending 08/13/2015 Visit Plan: Hypertension - uncontrolled [...] 08/03/2015 Referral: Roni Roberts Referral Completed [facility] [place] Referral Initiated Referral: Roni Roberts Referral Initiated Referral: Roni Roberts Referral Initiated Instructions Comment . Vaginal candidiasis - will send RX - pt is to notify clinic if symptoms do not improve, if they worsen, or with any questions or concerns. Diabetes Mellitus - Uncontrolled - Will refer to outboard system operator - I have recommended for the patient [...] in the nasal steroid allergy spray. . Vaginal candidiasis - will send RX - pt is to notify clinic if symptoms do not improve, if they worsen, or with any questions or concerns. Diabetes Mellitus - Uncontrolled - Will refer to outboard system operator - I have recommended for the patient [...] RTC in one month for weight check. Rocephin shot today keflex to start tomorrow diflucan for 14 days will send damaso for a shot if needed will call cough syrup let me know if it is not getting better. Abscess/Cellulitis - The patient was instructed in appropriate wound care. The patient was instructed to use the antibiotic ointment as per RX. The patient is to call for any change in symptoms, increase in size of the lesion, increase in pain, worsening redness, warmth, discharge. . Esophageal Reflux - the patient has been counseled against excessive intake of caffeine, spicy foods, peppermint, and cinnamon - all of which can exacerbate esophageal reflux. The patient is to take medications as prescribed and call the office if the symptoms are not improving. Allergies - chronic - recommended pt to [...] in the nasal steroid allergy spray. . Diabetes Mellitus - Uncontrolled - per [...] in one month for weight check. . Otitis Media - discussed the diagnosis [...] in the nasal steroid allergy spray. . Abscess/Cellulitis - The patient was instructed in appropriate wound care. The patient was instructed to use the antibiotic ointment as per RX. The patient is to call for any change in symptoms, increase in size of the lesion, increase in pain, worsening redness, warmth, discharge. Diarrhea - Will send RX and refer for colonoscopy - recommended bland diet, low fat diet, start on probiotic, and rehydrate with gatorade-like product. Pt to call if feeling worse, diarrhea becomes bloody, or does not improve with above recommendations. Pt to call for acute worsening of stomach upset or stomach pain. . Diabetes Mellitus - Uncontrolled - per [...] worsen, or with any questions or concerns. Rash - will send for culture - The patient was instructed to use the antibiotic as per RX. The patient is to call for any change in symptoms, increase in size of the lesion, increase in pain, worsening redness, warmth, discharge. . PCOS and skin changes - pt currently on Metformin, but states that it is causing some GI upset and diarrhea - will change to Invokamet , will refer to Dr. [facility]. Will have pt repeat her liver enzymes on 09/09/15. Will have pt recheck a Hgb A1C after 3 months of being on Invokamet. . Bronchitis - acute case of bronchitis [...] Call if symptoms do not show improvement. . Diabetes Mellitus - Uncontrolled - per [...] in one month for weight check. . URI - Pt advised to increase [...] spray in the nasal steroid allergy spray. Bronchitis - acute case of bronchitis identified. Pt has been given antibiotics , steroids as appropriate, and pt has been instructed to call if symptoms are not improved, or if symptoms acutely worsen. . Diabetes Mellitus - Uncontrolled - per [...] RTC in one month for weight check. Will check fasting labs, will send for [...] further attempt to reduce peripheral edema. . Allergies - chronic - recommended pt to [...] spray in the nasal steroid allergy spray. URI - Pt advised to increase fluids, vitamin C. Discussed natural and expected course of this diagnosis and need to alert me if symptoms do not follow expected course, or if any worse. RX sent to patient's pharmacy. tachycardia - pt has not been consistently taking her metoprolol - pt is to take her medication as directed and notify clinic if symptoms do not improve MRI - left foot - ongoing history [...] NSAIDs PRN Yeast - will send RX Pt has been advised to increase the [...] in one month for weight check. . Ongoing abdominal pain/hernia - will send RX - will refer - pt is to notify clinic if symptoms do not improve, if they worsen, or with any questions or concerns. . Cellulitis-right kwqvgu-wtmuuzaa-qkz bactroban ointment until healed completely-call with any concerns . Sinusitis - Pt [...] edema noted - will order US . Sinusitis - Pt has acute infection [...] not improve, or with any concerns . Right shoulder pain - will refer to PT - The pt is to use prn antiinflammatories to manage acute pain. The patient is to call the office if the pain is worsening or does not improve. . Well Adult Female - exam completed. [...] otherwise, RTC yearly or prn. . Ongoing abdominal/epigastric pain - pt states [...] allow for greater blood glucose control. . Low back pain - the patient was instructed in appropriate posture, need for weight loss to alleviate abdominal obesity that is worsening the patient's back pain.. The pt is to use prn antiinflammatories to manage acute pain. The patient is to call the office if the pain is worsening or does not improve. Continue ibuprofen 600mg - 800mg 3 times [...] pain occurs at the site of injection. levaquin start today Kenalog shot today albuterol breathing treatments 3 times a day x 3 days, then twice a day x 3 days , then daily x 3 days. steroid taper to start tomorrow if you need it diflucan cough syrup as needed let me know if you are not getting better and will order a chest x-ray. . URI - Pt advised to increase fluids, vitamin C. Discussed natural and expected course of this diagnosis and need to alert me if symptoms do not follow expected course, or if any worse. RX sent to patient's pharmacy. Bronchitis - acute case of bronchitis identified. Pt has been given antibiotics , breathing treatments as appropriate, and pt has been instructed to call if symptoms are not improved, or if symptoms acutely worsen. . Skin tag removal - irritated skin tags identified - Consent signed and on the chart. Patient placed in appropriate position for lesion removal. The areas were prepped and draped. The lesions were infiltrated with 1% lidocaine WITH epinephrine. 1 ml of anesthetic agent utilized. 11 blade scalpel utilized to remove skin tags x 3 - Patient tolerated procedure well, minimal blood loss. Areas dressed wtih neosporin and bandaids. . Skin tag removal - irritated skin tags identified - Consent signed and on the chart. Patient placed in appropriate position for lesion removal. The areas were prepped and draped. The lesions were infiltrated with 1% lidocaine WITH epinephrine. 1 ml of anesthetic agent utilized. 11 blade scalpel utilized to remove skin tags x 3 - Patient tolerated procedure well, minimal blood loss. Areas dressed wtih neosporin and bandaids. . Cough - continue with singulair. Skin tag removal - irritated skin tags identified - Consent signed and on the chart. Patient placed in appropriate position for lesion removal. The areas were prepped and draped. The lesions were infiltrated with 1% lidocaine WITH epinephrine. 1 ml of anesthetic agent utilized. 11 blade scalpel utilized to remove skin tags x 3 - Patient tolerated procedure well, minimal blood loss. Areas dressed wtih neosporin and bandaids. . Trigger Points - Injected trigger points [...] allow for greater blood glucose control. . Skin tag removal - irritated skin tags identified - Consent signed and on the chart. Patient placed in appropriate position for lesion removal. The areas were prepped and draped. The lesions were infiltrated with 1% lidocaine WITH epinephrine. 1 ml of anesthetic agent utilized. 11 blade scalpel utilized to remove skin tags x 3 - Patient tolerated procedure well, minimal blood loss. Areas dressed wtih neosporin and bandaids.
--- OUTSIDE RECORDS SUMMARY | 2018-07-15 10:49 | XMS REPORT | CCD ---
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 Name Role Phone PP Unavailable CCM Unavailable Summary Purpose Interface Exchange Insurance Providers Payer name Policy type / Coverage type Covered green party ID Effective Begin Date Effective End Date [facility] Commercial Insurance [id number] Unknown Unknown Family history Father Diagnosis Age At Onset Hypertension Unknown Arthritis Unknown Mother Diagnosis Age At Onset Arthritis Unknown Hyperlipidemia Unknown Daughter Diagnosis Age At Onset Asthma Unknown Social History Social History Element Codes Description Effective Dates Marital status Unknown Darin 08/03/2015 Number of children Unknown 1 08/03/[address]: 5435369 Quit less than 5 years ago 08/03/2015 [...] Start Date Stop Date Status Fill Instructions hyoscyamine 0.125 mg sublingual tablet RxNorm: 2336757 1 Tablet(s) SL TID as needed diarrhea 06/28/2018 07/07/2018 Active mupirocin 2 % topical ointment RxNorm: 024081 1 Application TOP BID 06/17/2018 06/26/2018 Inactive Diflucan 150 mg tablet RxNorm: 179456 1 Tablet(s) PO daily 07/02/2018 Active mupirocin 2 % topical ointment RxNorm: 802993 1 Application TOP BID 06/05/2018 No Stop Date Active Keflex 500 mg capsule RxNorm: 317025 1 Capsule(s) PO TID 201706/11/2018 Inactive ceftriaxone 500 mg solution for injection RxNorm: 6121294 Inj 06/05/2018 06/05/2018 Inactive Protonix 40 mg tablet,delayed release RxNorm: 760014 1 Tablet(s) PO BID x 1 week then daily 03/26/2018 No Stop Date Active Phenergan with Codeine Syrup RxNorm: 5-10 ML PO QID as needed cough 03/19/2018 No Stop Date Active promethazine 25 mg tablet RxNorm: 438797 Tablet(s) TAKE ONE TABLET BY MOUTH EVERY 6 TO 8 HOURS NEEDED 03/15/2018 No Stop Date Active Singulair 10 mg tablet RxNorm: 793198 1 Tablet(s) PO daily 04/12/2018 Inactive metoprolol succinate ER 100 mg tablet,extended release 24 hr RxNorm: 020177 1 Tablet(s) PO daily 03/07/2018 04/05/2018 Inactive Zithromax Z-Rashid 250 mg tablet RxNorm: 400681 1 Tablet(s) PO UD 03/07/2018 03/07/2018 Inactive prednisone 20 mg tablet RxNorm: 038760 2 Tablet(s) PO daily 03/11/2018 Inactive albuterol sulfate 2.5 mg/3 mL (0.083 %) solution for nebulization RxNorm: 700383 3 Milliliter(s) INH Q4-6H as needed dyspnea 02/19/2018 No Stop Date Active Diflucan 150 mg tablet RxNorm: 485024 Tablet(s) TAKE ONE TABLET BY MOUTH ONCE DAILY FOR 7 DAYS THEN TAKE ONE TABLET BY MOUTH ONCE A WEEK 06/04/2018 Inactive Levaquin 500 mg tablet RxNorm: 725406 1 Tablet(s) PO daily 09/201702/25/2018 Inactive prednisone 20 mg tablet RxNorm: 491482 2 Tablet(s) PO daily 09/201702/23/2018 Inactive Kenalog 40 mg/mL suspension for injection RxNorm: 5730842 15. Milliliter(s) Inj 02/19/2018 02/19/2018 Inactive hydrocodone 7.5 mg-acetaminophen 325 mg tablet RxNorm: 515986 1 Tablet(s) PO Q4H as needed 02/05/2018 03/06/2018 Inactive clindamycin HCl 300 mg capsule RxNorm: 811338 1 Capsule(s) PO TID 01/09/2018 01/15/2018 Inactive promethazine 25 mg tablet RxNorm: 770971 Tablet(s) TAKE ONE TABLET BY MOUTH EVERY 6 TO 8 HOURS NEEDED 01/08/20182017 Inactive Diflucan 150 mg tablet RxNorm: 885179 Tablet(s) TAKE ONE TABLET BY MOUTH ONCE DAILY FOR 7 DAYS THEN TAKE ONE TABLET BY MOUTH ONCE A WEEK 02/18/2018 Inactive Bactrim DS 800 mg-160 mg tablet RxNorm: 316386 1 Tablet(s) PO BID 01/08/2018 01/17/2018 Inactive prednisone 20 mg tablet RxNorm: 432038 2 Tablet(s) PO daily 01/201811/27/2017 Inactive Zithromax Z-Rashid 250 mg tablet RxNorm: 205327 1 Tablet(s) PO UD 09/05/2017 02/11/2018 Inactive Kenalog 40 mg/mL suspension for injection RxNorm: 9102252 Milliliter(s) Inj 09/05/2017 09/05/2017 Inactive prednisone 20 mg tablet RxNorm: 335658 2 Tablet(s) PO daily 09/09/2017 Inactive ibuprofen 800 mg tablet RxNorm: 761501 1 Tablet(s) PO TID 07/2702/21/2018 Inactive metoprolol succinate ER 100 mg tablet,extended release 24 hr RxNorm: 274713 TAKE ONE TABLET BY MOUTH ONCE DAILY 06/20/2017 No Stop Date Active alprazolam 0.5 mg tablet RxNorm: 201395 1 Tablet(s) PO Q8 as needed 06/20/2017 07/09/2017 Inactive Zithromax Z-Rashid 250 mg tablet RxNorm: 480762 1 Tablet(s) PO UD 06/15/2017 07/25/2017 Inactive Xopenex HFA 45 mcg/actuation aerosol inhaler RxNorm: 615240 INHALE ONE PUFF INTO LUNGS NEEDED 06/13/2017 07/14/2017 Inactive Xopenex 1.25 mg/3 mL solution for nebulization RxNorm: 414961 Milliliter(s) USE ONE VIAL IN NEBULIZER THREE TIMES DAILY 06/08/2017 No Stop Date Active Flovent HFA 44 mcg/actuation aerosol inhaler RxNorm: 523765 2 Puff(s) INH BID 06/08/2017 No Stop Date Active potassium chloride ER 10 mEq tablet,extended release RxNorm: 902920 1 Tablet(s) PO daily 06/08/2017 06/10/2017 Inactive Lasix 20 mg tablet RxNorm: 765958 1 Tablet(s) PO daily 201606/10/2017 Inactive Xopenex HFA 45 mcg/actuation aerosol inhaler RxNorm: 752750 INHALE ONE PUFF INTO LUNGS NEEDED 06/08/2017 06/12/2017 Inactive triamcinolone acetonide 0.025 % topical cream RxNorm: 6161257 1 Application TOP BID 06/07/2017 No Stop Date Active ibuprofen 800 mg tablet RxNorm: 941930 1 Tablet(s) PO TID 06/0707/06/2017 Inactive cyclobenzaprine 5 mg tablet RxNorm: 974899 1/2 Tablet(s) PO TID as needed muscle spasms 05/28/2017 06/01/2017 Inactive Diflucan 150 mg tablet RxNorm: 094704 TAKE ONE TABLET BY MOUTH ONCE DAILY FOR 7 DAYS THEN TAKE ONE TABLET BY MOUTH ONCE A WEEK 05/28/2017 01/07/2018 Inactive bumetanide 1 mg tablet RxNorm: 454824 TAKE ONE TABLET BY MOUTH TWICE DAILY 05/25/2017 No Stop Date Active meloxicam 7.5 mg tablet RxNorm: 093360 1 Tablet(s) PO daily as needed 05/25/2017 07/23/2017 Inactive Xopenex 1.25 mg/3 mL solution for nebulization RxNorm: 372806 USE ONE VIAL IN NEBULIZER THREE TIMES DAILY 05/25/2017 Inactive Protonix 40 mg tablet,delayed release RxNorm: 641509 1 Tablet(s) PO daily 05/08/2017 11/03/2017 Inactive Protonix 40 mg tablet,delayed release RxNorm: 698739 1 Tablet(s) PO daily 05/04/2017 05/03/2017 Inactive Protonix 40 mg tablet,delayed release RxNorm: 756350 1 Tablet(s) PO daily 05/04/2017 05/07/2017 Inactive meloxicam 7.5 mg tablet RxNorm: 964377 1 Tablet(s) PO daily as needed 04/25/2017 04/24/2017 Inactive meloxicam 7.5 mg tablet RxNorm: 486188 1 Tablet(s) PO daily as needed 04/25/2017 05/04/2017 Inactive promethazine 25 mg tablet RxNorm: 819897 TAKE ONE TABLET BY MOUTH EVERY 6 TO 8 HOURS NEEDED 04/25/2017 01/07/2018 Inactive Kenalog 40 mg/mL suspension for injection RxNorm: 4857955 1 Milliliter(s) Inj 04/24/2017 04/24/2017 Inactive cyclobenzaprine 5 mg tablet RxNorm: 855084 1/2 Tablet(s) PO TID as needed muscle spasms 04/24/2017 04/28/2017 Inactive Xopenex HFA 45 mcg/actuation aerosol inhaler RxNorm: 065791 INHALE ONE PUFF INTO LUNGS NEEDED 03/30/2017 04/14/2017 Inactive Humalog KwikPen 200 unit/mL (3 mL) subcutaneous RxNorm: 4616190 INJECT 35 UNITS SUBCUTANEOUSLY BEFORE MEAL(S) 03/30/2017 06/05/2017 Inactive promethazine 25 mg tablet RxNorm: 463021 Tablet(s) TAKE ONE TABLET BY MOUTH EVERY 6 TO 8 HOURS NEEDED 03/12/20172016 Inactive cyclobenzaprine 10 mg tablet RxNorm: 238210 TAKE ONE TABLET BY MOUTH ONCE DAILY NEEDED 03/06/2017 03/15/2017 Inactive lidocaine 5 % topical patch RxNorm: 5850655 USE ONE PATCH TOPICALLY DAILY. 12 HOURS ON AND THEN 12 HOURS OFF. 03/06/2017 03/15/2017 Inactive Humalog KwikPen 200 unit/mL (3 mL) subcutaneous RxNorm: 6576759 INJECT 35 UNITS SUBCUTANEOUSLY BEFORE MEAL(S) 02/20/2017 03/25/2017 Inactive promethazine 25 mg tablet RxNorm: 215049 Tablet(s) TAKE ONE TABLET BY MOUTH EVERY 6 TO 8 HOURS NEEDED 02/20/20172016 Inactive Xopenex HFA 45 mcg/actuation aerosol inhaler RxNorm: 366546 INHALE ONE PUFF INTO LUNGS NEEDED 02/20/2017 03/07/2017 Inactive bumetanide 1 mg tablet RxNorm: 131572 TAKE ONE TABLET BY MOUTH TWICE DAILY 02/15/2017 05/15/2017 Inactive bumetanide 1 mg tablet RxNorm: 467419 TAKE ONE TABLET BY MOUTH TWICE DAILY 01/15/2017 02/13/2017 Inactive metoprolol succinate ER 100 mg tablet,extended release 24 hr RxNorm: 388781 TAKE ONE TABLET BY MOUTH ONCE DAILY 01/11/2017 06/19/2017 Inactive Zithromax Z-Rashid 250 mg tablet RxNorm: 172801 1 Tablet(s) PO UD 01/09/2017 03/13/2017 Inactive meclizine 25 mg tablet RxNorm: 785314 1 Tablet(s) PO TID as needed 01/09/2017 01/18/2017 Inactive Kenalog 40 mg/mL suspension for injection RxNorm: 9277744 Milliliter(s) Inj 01/09/2017 01/09/2017 Inactive promethazine 25 mg tablet RxNorm: 403836 Tablet(s) TAKE ONE TABLET BY MOUTH EVERY 6 TO 8 HOURS NEEDED 12/29/20162016 Inactive Voltaren 1 % topical gel RxNorm: 017474 APPLY TOPICALLY TO AFFECTED AREA TWICE DAILY 12/25/2016 01/13/2017 Inactive cyclobenzaprine 10 mg tablet RxNorm: 049156 TAKE ONE TABLET BY MOUTH NEEDED 12/22/2016 12/31/2016 Inactive lidocaine 5 % topical patch RxNorm: 9723744 USE ONE PATCH TOPICALLY DAILY. 12 HOURS ON AND THEN 12 HOURS OFF. 12/22/2016 12/31/2016 Inactive hydrocodone 7.5 mg-acetaminophen 325 mg tablet RxNorm: 224999 1 Tablet(s) PO Q4H as needed 12/22/2016 01/20/2017 Inactive bumetanide 1 mg tablet RxNorm: 857539 TAKE ONE TABLET BY MOUTH TWICE DAILY 12/17/2016 01/14/2017 Inactive promethazine 25 mg tablet RxNorm: 324584 Tablet(s) TAKE ONE TABLET BY MOUTH EVERY 6 TO 8 HOURS NEEDED 11/16/20162016 Inactive spironolactone 50 mg tablet RxNorm: 705330 TAKE ONE TABLET BY MOUTH TWICE DAILY 11/15/2016 05/13/2017 Inactive Basaglar KwikPen 100 unit/mL (3 mL) subcutaneous RxNorm: 9350390 Unit(s) INJECT 35 UNITS IN THE MORNING AND 50 UNITS IN THE EVENING SUBCUTANEOUSLY 11/15/2016 03/14/2017 Inactive cyclobenzaprine 10 mg tablet RxNorm: 561086 TAKE ONE TABLET BY MOUTH NEEDED 11/15/2016 12/04/2016 Inactive lidocaine 5 % topical patch RxNorm: 0007324 1 Patch TOP daily . 12 HOURS ON, 12 HOURS OFF 11/15/2016 12/04/2016 Inactive lidocaine 4 % topical patch RxNorm: 4188437 1 Patch TOP on for 12 hours and off for 12 hours 11/14/2016 11/14/2016 Inactive promethazine 25 mg tablet RxNorm: 882393 TAKE ONE TABLET BY MOUTH EVERY 6 TO 8 HOURS NEEDED 11/14/2016 11/15/2016 Inactive Basaglar KwikPen 100 unit/mL (3 mL) subcutaneous RxNorm: 8493473 INJECT 35 UNITS IN THE MORNING AND 50 UNITS IN THE EVENING SUBCUTANEOUSLY 11/14/2016 Inactive cyclobenzaprine 10 mg tablet RxNorm: 370184 TAKE ONE TABLET BY MOUTH NEEDED 11/14/2016 11/14/2016 Inactive spironolactone 50 mg tablet RxNorm: 898315 TAKE ONE TABLET BY MOUTH TWICE DAILY 11/14/2016 11/14/2016 Inactive Diflucan 150 mg tablet RxNorm: 823739 1 Tablet(s) PO as needed prophylactic after sexual intercourse 10/30/2016 No Stop Date Active hydrocodone 7.5 mg-acetaminophen 325 mg tablet RxNorm: 171547 1 Tablet(s) PO Q4H as needed 10/30/2016 11/28/2016 Inactive clotrimazole 100 mg vaginal tablet RxNorm: 484336 1 Tablet(s) VAG QW 10/30/2016 11/28/2016 Inactive Humalog KwikPen 200 unit/mL (3 mL) subcutaneous RxNorm: 4895258 35 Unit(s) SQ AC 10/30/2016 02/19/2017 Inactive QS 30 day supply Bydureon 2 mg/0.65 mL subcutaneous pen injector RxNorm: 3367028 2 Milligram(s) SQ QW 10/30/2016 11/28/2016 Inactive Basaglar KwikPen 100 unit/mL (3 mL) subcutaneous RxNorm: 2312451 Unit(s) SQ 35 units in the morning and 50 units in the evening 10/30/2016 11/13/2016 Inactive QS 30 day supply cyclobenzaprine 10 mg tablet RxNorm: 301254 TAKE ONE TABLET BY MOUTH NEEDED 10/27/2016 11/05/2016 Inactive Diflucan 150 mg tablet RxNorm: 800334 1 Tablet(s) PO daily x 7 days then once a week 10/27/2016 10/29/2016 Inactive promethazine 25 mg tablet RxNorm: 099101 TAKE ONE TABLET BY MOUTH EVERY 6 TO 8 HOURS NEEDED 10/27/2016 11/10/2016 Inactive Diflucan 150 mg tablet RxNorm: 171595 1 Tablet(s) PO daily x 7 days then once a week 10/09/2016 10/15/2016 Inactive Diflucan 150 mg tablet RxNorm: 201257 1 Tablet(s) PO daily 10/201609/26/2016 Inactive Cipro 500 mg tablet RxNorm: 856841 1 Tablet(s) PO BID 201609/21/2016 Inactive Flagyl 500 mg tablet RxNorm: 121678 1 Tablet(s) PO TID 201609/21/2016 Inactive Diflucan 150 mg tablet RxNorm: 392735 1 Tablet(s) PO daily 09/12/2016 Inactive hydrocodone 7.5 mg-acetaminophen 325 mg tablet RxNorm: 215485 1 Tablet(s) PO Q4H as needed 07/12/2016 08/10/2016 Inactive Xopenex 1.25 mg/3 mL solution for nebulization RxNorm: 102311 3 Milliliter(s) INH TID 06/16/2016 05/24/2017 Inactive cefdinir 300 mg capsule RxNorm: 447867 1 Capsule(s) PO BID 06/25/2016 Inactive Mobic 7.5 mg tablet RxNorm: 177608 1 Tablet(s) PO daily 201506/25/2016 Inactive Levaquin 500 mg tablet RxNorm: 700207 1 Tablet(s) PO daily 06/22/2016 Inactive cyclobenzaprine 10 mg tablet RxNorm: 651746 1 Tablet(s) PO PRN as needed 06/14/2016 06/23/2016 Inactive promethazine 25 mg tablet RxNorm: 690038 TAKE ONE TABLET BY MOUTH EVERY 6 TO 8 HOURS NEEDED 06/14/2016 06/28/2016 Inactive Xopenex HFA 45 mcg/actuation aerosol inhaler RxNorm: 873518 1 Puff(s) INH PRN 06/14/2016 07/15/2016 Inactive pen needle, diabetic 32 gauge x 5/16" RxNorm: 1 use Miscellaneous AC & HS 06/13/2016 No Stop Date Active QS 30 day supply Humalog KwikPen 200 unit/mL (3 mL) subcutaneous RxNorm: 4754456 10 Unit(s) SQ AC 06/13/2016 10/29/2016 Inactive QS 30 day supply Basaglar KwikPen 100 unit/mL (3 mL) subcutaneous RxNorm: 4924276 22 units in the morning and 35 in the evening. Unit(s) SQ 06/13/2016 10/29/2016 Inactive QS 30 day supply Tivorbex 20 mg capsule RxNorm: 8242406 1 Capsule(s) PO TID as needed 06/13/2016 06/13/2016 Inactive metoprolol succinate ER 100 mg tablet,extended release 24 hr RxNorm: 669800 TAKE ONE TABLET BY MOUTH ONCE DAILY 06/13/2016 10/10/2016 Inactive hydrocodone 7.5 mg-acetaminophen 325 mg tablet RxNorm: 658833 1 Tablet(s) PO Q4H as needed 06/13/2016 07/11/2016 Inactive Voltaren 1 % topical gel RxNorm: 098461 APPLY TOPICALLY TO AFFECTED AREA TWICE DAILY 05/30/2016 07/08/2016 Inactive alprazolam 0.5 mg tablet RxNorm: 364054 1 Tablet(s) PO Q8 as needed 05/19/2016 No Stop Date Active cyclobenzaprine 10 mg tablet RxNorm: 000497 1 Tablet(s) PO PRN as needed 05/19/2016 05/28/2016 Inactive bumetanide 1 mg tablet RxNorm: 287537 TAKE ONE TABLET BY MOUTH TWICE DAILY 05/19/2016 06/17/2016 Inactive Sprintec (28) 0.25 mg-35 mcg tablet RxNorm: 068592 1 Tablet(s) PO UD 05/08/2016 No Stop Date Active Lantus Solostar 100 unit/mL (3 mL) subcutaneous insulin pen RxNorm: 716543 Unit( s) SQ UD 15units qam 30 units qhs 05/08/2016 No Stop Date Active Humalog KwikPen 200 unit/mL (3 mL) subcutaneous RxNorm: 5507187 10 Unit(s) SQ AC 05/08/2016 06/12/2016 Inactive bumetanide 1 mg tablet RxNorm: 296920 TAKE ONE TABLET BY MOUTH TWICE DAILY 04/28/2016 05/18/2016 Inactive Voltaren 1 % topical gel RxNorm: 743718 1 Application TOP BID 04/28/2016 05/07/2016 Inactive cyclobenzaprine 10 mg tablet RxNorm: 669535 1 Tablet(s) PO PRN as needed 04/28/2016 05/07/2016 Inactive hydrocodone 7.5 mg-acetaminophen 325 mg tablet RxNorm: 998960 1 Tablet(s) PO Q4H as needed 04/18/2016 05/16/2016 Inactive Lantus Solostar 100 unit/mL (3 mL) subcutaneous insulin pen RxNorm: 582451 Unit( s) SQ UD 10 units QHS x5 days, if sugars are over 200 increase to 15 units x 5 days, if sugars over 200 increase to 20 units. 04/14/2016 05/07/2016 Inactive lidocaine 4 % topical patch RxNorm: 9797449 1 Patch TOP on for 12 hours and off for 12 hours 04/13/2016 11/13/2016 Inactive Voltaren 1 % topical gel RxNorm: 623806 1 Application TOP BID 04/10/2016 04/27/2016 Inactive metformin ER 500 mg 24 hr tablet,extended release RxNorm: 650632 1 Tablet(s) PO daily 04/06/2016 05/05/2016 Inactive Kenalog 40 mg/mL suspension for injection RxNorm: 3112815 1 Milliliter(s) Inj 04/06/2016 04/06/2016 Inactive cyclobenzaprine 10 mg tablet RxNorm: 849513 1 Tablet(s) PO PRN as needed 04/06/2016 04/27/2016 Inactive WelChol 3.75 gram oral powder packet RxNorm: 106714 1 packet PO daily 04/06/2016 07/04/2016 Inactive alprazolam 0.5 mg tablet RxNorm: 290927 1 Tablet(s) PO Q8 as needed 03/30/2016 06/19/2017 Inactive Levaquin 500 mg tablet RxNorm: 007579 1 Tablet(s) PO daily 04/05/2016 Inactive metoprolol succinate ER 100 mg tablet,extended release 24 hr RxNorm: 014788 TAKE ONE TABLET BY MOUTH ONCE DAILY 03/16/2016 06/12/2016 Inactive Levaquin 500 mg tablet RxNorm: 404481 1 Tablet(s) PO daily 03/14/2016 Inactive prednisone 20 mg tablet RxNorm: 143572 2 Tablet(s) PO daily 03/12/2016 Inactive Xopenex HFA 45 mcg/actuation aerosol inhaler RxNorm: 857382 1 Puff(s) INH PRN 02/28/2016 06/13/2016 Inactive Phenergan with Codeine Syrup RxNorm: 5-10 ML PO QID as needed cough 02/28/2016 03/18/2018 Inactive Kenalog 40 mg/mL suspension for injection RxNorm: 6695540 1 Milliliter(s) Inj 02/28/2016 02/28/2016 Inactive Zithromax Z-Rashid 250 mg tablet RxNorm: 526739 1 Tablet(s) PO UD 02/28/2016 03/27/2016 Inactive alprazolam 0.5 mg tablet RxNorm: 991244 1 Tablet(s) PO Q8 as needed 02/24/2016 06/19/2017 Inactive glipizide 5 mg tablet RxNorm: 107430 1 Tablet(s) PO daily 201505/16/2016 Inactive Actos 15 mg tablet RxNorm: 101763 1 Tablet(s) PO daily 201502/16/2016 Inactive gabapentin 100 mg capsule RxNorm: 374889 1 Capsule(s) PO QHS 03/12/2016 Inactive gabapentin 100 mg capsule RxNorm: 685298 1 Capsule(s) PO QHS 01/12/2016 Inactive Bydureon 2 mg/0.65 mL subcutaneous pen injector RxNorm: 3503020 1 Milliliter(s) SQ QW 01/12/2016 01/11/2016 Inactive Bydureon 2 mg/0.65 mL subcutaneous pen injector RxNorm: 8199571 2/0.65ml Milligram (s) SQ QW 01/12/2016 05/16/2016 Inactive Bydureon 2 mg/0.65 mL subcutaneous pen injector RxNorm: 0303345 1 Milliliter(s) SQ QW 01/12/2016 01/11/2016 Inactive bumetanide 1 mg tablet RxNorm: 806860 TAKE ONE TABLET BY MOUTH TWICE DAILY 01/10/2016 04/08/2016 Inactive promethazine 25 mg tablet RxNorm: 882985 Tablet(s) Tablet(s) 1 Tablet(s) PO Q6-8H as needed 12/16/2015 04/13/2016 Inactive promethazine 25 mg tablet RxNorm: 419670 Tablet(s) 1 Tablet(s) PO Q6-8H as needed 12/10/2015 12/15/2015 Inactive Trulicity 0.75 mg/0.5 mL subcutaneous pen injector RxNorm: 6862638 INJECT ONE- HALF ML SUBCUTANEOUSLY ONCE A WEEK 12/10/2015 01/11/2016 Inactive glipizide 5 mg tablet RxNorm: 725404 1 Tablet(s) PO daily 201501/17/2016 Inactive bumetanide 1 mg tablet RxNorm: 600136 TAKE ONE TABLET BY MOUTH TWICE DAILY 12/10/2015 01/08/2016 Inactive promethazine 25 mg tablet RxNorm: 469770 Tablet(s) 1 Tablet(s) PO Q6-8H as needed 11/18/2015 12/09/2015 Inactive promethazine 25 mg tablet RxNorm: 680294 1 Tablet(s) PO Q6-8H as needed 11/16/2015 11/17/2015 Inactive glipizide 5 mg tablet RxNorm: 017352 1/2 Tablet(s) PO daily 12/15/2015 Inactive promethazine 25 mg tablet RxNorm: 446044 Tablet(s) 1 Tablet(s) PO Q6-8H as needed 11/11/2015 12/10/2015 Inactive metoprolol tartrate 50 mg tablet RxNorm: 647456 1 Tablet(s) PO BID 11/11/2015 02/08/2016 Inactive Trulicity 0.75 mg/0.5 mL subcutaneous pen injector RxNorm: 8976132 .5 Milliliter(s ) SQ QW 11/11/2015 01/11/2016 Inactive promethazine 25 mg tablet RxNorm: 437227 1 Tablet(s) PO Q6-8H as needed 10/28/2015 11/10/2015 Inactive nystatin 100,000 unit/gram topical cream RxNorm: 335452 1 Gram(s) TOP BID 10/27/2015 No Stop Date Active alprazolam 0.5 mg tablet RxNorm: 363440 1 Tablet(s) PO Q8 as needed 10/27/2015 03/29/2016 Inactive hydrocodone 7.5 mg-acetaminophen 325 mg tablet RxNorm: 729309 1 Tablet(s) PO Q4H as needed 10/27/2015 11/25/2015 Inactive Trulicity 0.75 mg/0.5 mL subcutaneous pen injector RxNorm: 6097858 .5 Milliliter(s ) SQ QW 10/27/2015 11/10/2015 Inactive glipizide 5 mg tablet RxNorm: 764934 1 Tablet(s) PO daily 201511/25/2015 Inactive hydrocodone 7.5 mg-acetaminophen 325 mg tablet RxNorm: 706629 1 Tablet(s) PO Q4H as needed 10/26/2015 10/26/2015 Inactive alprazolam 0.5 mg tablet RxNorm: 585250 1 Tablet(s) PO PRN as needed 10/26/2015 10/26/2015 Inactive promethazine 25 mg tablet RxNorm: 801448 1 Tablet(s) PO Q6-8H as needed 10/26/2015 11/15/2015 Inactive glipizide 5 mg tablet RxNorm: 431401 1/2 Tablet(s) PO daily 10/26/2015 Inactive cefdinir 300 mg capsule RxNorm: 967733 1 Capsule(s) PO BID 10/14/2015 Inactive prednisone 20 mg tablet RxNorm: 535947 2 Tablet(s) PO daily 10/09/2015 Inactive Diflucan 150 mg tablet RxNorm: 116363 1 Tablet(s) PO daily 10/11/2015 Inactive Invokamet 50 mg-500 mg tablet RxNorm: 1054520 1 Tablet(s) PO daily 10/05/2015 11/03/2015 Inactive alprazolam 0.5 mg tablet RxNorm: 641902 1 Tablet(s) PO PRN as needed 10/01/2015 02/23/2016 Inactive promethazine 25 mg tablet RxNorm: 070105 1 Tablet(s) PO Q6-8H as needed 09/30/2015 10/25/2015 Inactive bumetanide 1 mg tablet RxNorm: 473235 TAKE ONE TABLET BY MOUTH TWICE DAILY 09/30/2015 10/29/2015 Inactive bumetanide 1 mg tablet RxNorm: 775998 TAKE ONE TABLET BY MOUTH TWICE DAILY 09/20/2015 12/18/2015 Inactive bumetanide 1 mg tablet RxNorm: 740464 1 Tablet(s) PO BID 201510/19/2015 Inactive metoprolol succinate ER 100 mg tablet,extended release 24 hr RxNorm: 678434 1 Tablet(s) PO daily 09/16/2015 03/13/2016 Inactive spironolactone 50 mg tablet RxNorm: 472697 1 Tablet(s) PO BID 09/16/2015 03/13/2016 Inactive alprazolam 0.5 mg tablet RxNorm: 868210 1 Tablet(s) PO PRN as needed 09/16/2015 10/25/2015 Inactive hydrocodone 7.5 mg-acetaminophen 325 mg tablet RxNorm: 086913 1 Tablet(s) PO Q4H as needed 09/16/2015 10/25/2015 Inactive Invokamet 50 mg-1,000 mg tablet RxNorm: 3383001 1 Tablet(s) PO daily 09/06/2015 09/05/2015 Inactive Invokamet 50 mg-1,000 mg tablet RxNorm: 3332221 1 Tablet(s) PO daily 09/06/2015 12/04/2015 Inactive promethazine 25 mg tablet RxNorm: 547955 TAKE ONE TABLET BY MOUTH EVERY 6 TO 8 HOURS NEEDED 09/01/2015 09/16/2015 Inactive promethazine 25 mg tablet RxNorm: 659521 1 Tablet(s) PO Q6-8H as needed 08/27/2015 09/25/2015 Inactive metoprolol succinate ER 100 mg tablet,extended release 24 hr RxNorm: 931009 1 Tablet(s) PO daily 08/20/2015 09/15/2015 Inactive bumetanide 1 mg tablet RxNorm: 775201 1 Tablet(s) PO BID 201509/18/2015 Inactive Bumex 1 mg tablet RxNorm: 141629 1 Tablet(s) PO BID 201511/15/2015 Inactive Kenalog 40 mg/mL suspension for injection RxNorm: 5054173 Milliliter(s) Inj 08/20/2015 08/20/2015 Inactive bumetanide 1 mg tablet RxNorm: 453609 1 Tablet(s) PO BID 201508/19/2015 Inactive Levaquin 500 mg tablet RxNorm: 606969 1 Tablet(s) PO daily 09/201508/26/2015 Inactive promethazine 25 mg tablet RxNorm: 745183 1 Tablet(s) PO Q6-8H as needed 08/06/2015 08/26/2015 Inactive metformin 500 mg tablet RxNorm: 778055 Tablet(s) PO 500mg in the morning and 1000mg at night No Start Date 09/16/2015 Inactive Lantus Solostar 100 unit/mL (3 mL) subcutaneous insulin pen RxNorm: 580239 Unit( s) SQ UD 10 units QHS x 5 days, if blood sugars are above 200 increase to 15 units x 5 days, if still 200 increase to 20 units. No Start Date 04/13/2016 Inactive alprazolam 0.5 mg tablet RxNorm: 368767 1 Tablet(s) PO PRN as needed No Start Date 09/15/2015 Inactive cyclobenzaprine 10 mg tablet RxNorm: 082795 1 Tablet(s) PO PRN as needed No Start Date 04/05/2016 Inactive lidocaine 4 % topical patch RxNorm: 7816420 1 Patch TOP on for 12 hours and off for 12 hours No Start Date 04/12/2016 Inactive metoprolol tartrate 50 mg tablet RxNorm: 532976 1 Tablet(s) PO BID No Start Date 11/10/2015 Inactive spironolactone 50 mg tablet RxNorm: 827614 1 Tablet(s) PO BID No Start Date 09/15/2015 Inactive hydrocodone 7.5 mg-acetaminophen 325 mg tablet RxNorm: 933771 1 Tablet(s) PO Q4H as needed No Start Date 09/15/2015 Inactive promethazine 25 mg tablet RxNorm: 022862 1 Tablet(s) PO PRN as needed No Start Date 08/05/2015 Inactive Medication Administered Medication Codes Instructions Start Date Status ceftriaxone 500 mg solution for injection RxNorm: 6814917 06/05/2018 No longer Active Kenalog 40 mg/mL suspension for injection RxNorm: 1873241 15.Milliliter 02/19/2018 No longer Active Kenalog 40 mg/mL suspension for injection RxNorm: 7876418 Milliliter 09/05/2017 No longer Active Kenalog 40 mg/mL suspension for injection RxNorm: 0631831 1Milliliter 04/24/2017 No longer Active Kenalog 40 mg/mL suspension for injection RxNorm: 6438652 Milliliter 01/09/2017 No longer Active Kenalog 40 mg/mL suspension for injection RxNorm: 6214431 1Milliliter 04/06/2016 No longer Active Kenalog 40 mg/mL suspension for injection RxNorm: 0959206 1Milliliter 02/28/2016 No longer Active Kenalog 40 mg/mL suspension for injection RxNorm: 5249123 Milliliter 08/20/2015 No longer Active Immunizations Vaccine [...] Code Item Item Code Result Date %Hba1C Qbh313 % HbA1c 24923-6 8.4 % 06/06/2018 %Hba1C Jgg533 Gluc Ave 194 mg/dL 06/06/2018 Lipid Ord30 CHOL 233 mg/dL 03/14/2018 Lipid Ord30 HDL 38.0 mg/dl 03/14/2018 Lipid Ord30 TRIG 143 mg/dL 03/14/2018 Lipid Ord30 LDL 166 mg/dL 03/14/2018 Lipid Ord30 C/HDL 6.1 Ratio 03/14/2018 %Hba1C Tua725 % HbA1c 52461-9 9.8 % 03/14/2018 %Hba1C Hej977 Gluc Ave 235 mg/dL 03/14/2018 Tsh Ord6 TSH (3rd IS) 1.09 uIU/mL 03/14/2018 Comp Metabolic Cyk651 NA 137 mEq/L 03/14/2018 Comp Metabolic Wsm236 K 4.6 mEq/L 03/14/2018 Comp Metabolic Axp691 CL 100 mEq/L 03/14/2018 Comp Metabolic Akw979 CO2 27.0 mEq/L 03/14/2018 Comp Metabolic Fte585 ANION GAP 15 03/14/2018 Comp Metabolic Twp056 GLUCOSE 144 mg/dL 03/14/2018 Comp Metabolic Fyt383 Creat 0.5 mg/dL 03/14/2018 Comp Metabolic Bfu395 eGFR 138 ml/min/1.73m2 03/14/2018 Comp Metabolic Vbh303 BUN 9 mg/dL 03/14/2018 Comp Metabolic Rin958 B/C Ratio 17.6 Ratio 03/14/2018 Comp Metabolic Btc680 CALCIUM 10.0 mg/dL 03/14/2018 Comp Metabolic Bqn598 ALK PHOS 102 U/L 03/14/2018 Comp Metabolic Hpz125 AST(SGOT) 31 U/L 03/14/2018 Comp Metabolic Ydz375 ALT(SGPT) 41 U/L 03/14/2018 Comp Metabolic Ona613 BILI T 0.5 mg/dL 03/14/2018 Comp Metabolic Ssi883 ALBUMIN 4.3 g/dL 03/14/2018 Comp Metabolic Mpm367 TPRO 6.8 g/dL 03/14/2018 Comp Metabolic Kim239 GLOB 2.5 g/dL 03/14/2018 Comp Metabolic Uzn681 A/G Ratio 1.8 Ratio 03/14/2018 Comp Metabolic Mof696 Osmo 275 mOsmo 03/14/2018 Cbc With Differential Ord2 WBC 16.74 K/ul 03/14/2018 Cbc With Differential Ord2 RBC 5.27 M/ul 03/14/2018 Cbc With Differential Ord2 HGB 15.7 g/dl 03/14/2018 Cbc With Differential Ord2 Neut% 67.5 % 03/14/2018 Cbc With Differential Ord2 HCT 47.7 % 03/14/2018 Cbc With Differential Ord2 Lymph% 25.7 % 03/14/2018 Cbc With Differential Ord2 MCV 90.5 fl 03/14/2018 Cbc With Differential Ord2 Dickinson% 5.6 % 03/14/2018 Cbc With Differential Ord2 MCH 29.8 pg 03/14/2018 Cbc With Differential Ord2 MCHC 32.9 pg 03/14/2018 Cbc With Differential Ord2 Eos% 0.9 % 03/14/2018 Cbc With Differential Ord2 Baso% 0.3 % 03/14/2018 Cbc With Differential Ord2 PLT 479 K/ul 03/14/2018 Cbc With Differential Ord2 Neut ABS# 11.29 K/ul 03/14/2018 Cbc With Differential Ord2 RDW 14.2 % 03/14/2018 Cbc With Differential Ord2 Lymph ABS# 4.31 K/ul 03/14/2018 Cbc With Differential Ord2 Dickinson ABS# 0.9 K/ul 03/14/2018 Cbc With Differential Ord2 Eos ABS# 0.2 K/ul 03/14/2018 Cbc With Differential Ord2 Baso ABS# 0.1 K/ul 03/14/2018 %Hba1C Vju108 % HbA1c 75099-0 8.8 % 06/13/2017 %Hba1C Lnw635 Gluc Ave 206 mg/dL 06/13/2017 Tsh Ord6 hTSH II 1.50 uIU/mL 06/13/2017 Cbc With Differential Ord2 WBC 14.30 K/ul 06/13/2017 Cbc With Differential Ord2 RBC 5.06 M/ul 06/13/2017 Cbc With Differential Ord2 HGB 15.3 g/dl 06/13/2017 Cbc With Differential Ord2 Neut% 71.3 % 06/13/2017 Cbc With Differential Ord2 HCT 46.6 % 06/13/2017 Cbc With Differential Ord2 Lymph% 22.4 % 06/13/2017 Cbc With Differential Ord2 MCV 92.1 fl 06/13/2017 Cbc With Differential Ord2 MCH 30.2 pg 06/13/2017 Cbc With Differential Ord2 Dickinson% 4.9 % 06/13/2017 Cbc With Differential Ord2 MCHC 32.8 pg 06/13/2017 Cbc With Differential Ord2 Eos% 1.0 % 06/13/2017 Cbc With Differential Ord2 Baso% 0.4 % 06/13/2017 Cbc With Differential Ord2 PLT 392 K/ul 06/13/2017 Cbc With Differential Ord2 RDW 14.4 % 06/13/2017 Cbc With Differential Ord2 Neut ABS# 10.18 K/ul 06/13/2017 Cbc With Differential Ord2 Lymph ABS# 3.21 K/ul 06/13/2017 Cbc With Differential Ord2 Dickinson ABS# 0.7 K/ul 06/13/2017 Cbc With Differential Ord2 Eos ABS# 0.2 K/ul 06/13/2017 Cbc With Differential Ord2 Baso ABS# 0.1 K/ul 06/13/2017 Lipid Ord30 CHOL 219 mg/dL 06/13/2017 Lipid Ord30 HDL 40.0 mg/dl 06/13/2017 Lipid Ord30 TRIG 200 mg/dL 06/13/2017 Lipid Ord30 LDL 139 mg/dL 06/13/2017 Lipid Ord30 C/HDL 5.5 Ratio 06/13/2017 Comp Metabolic Wdg710 NA 139 mEq/L 06/13/2017 Comp Metabolic Uog814 K 4.4 mEq/L 06/13/2017 Comp Metabolic Dwv382 CL 100 mEq/L 06/13/2017 Comp Metabolic Hyx033 CO2 29.0 mEq/L 06/13/2017 Comp Metabolic Ogg625 ANION GAP 14 06/13/2017 Comp Metabolic Tsd374 GLUCOSE 257 mg/dL 06/13/2017 Comp Metabolic Jvk046 Creat 0.5 mg/dL 06/13/2017 Comp Metabolic Chn084 eGFR 145 ml/min/1.73m2 06/13/2017 Comp Metabolic Mym101 BUN 13 mg/dL 06/13/2017 Comp Metabolic Boe690 B/C Ratio 26.5 Ratio 06/13/2017 Comp Metabolic Jqe297 CALCIUM 9.7 mg/dL 06/13/2017 Comp Metabolic Wdc444 ALK PHOS 98 U/L 06/13/2017 Comp Metabolic Zov447 AST(SGOT) 30 U/L 06/13/2017 Comp Metabolic Qch877 ALT(SGPT) 43 U/L 06/13/2017 Comp Metabolic Frn009 BILI T 0.5 mg/dL 06/13/2017 Comp Metabolic Pbu382 ALBUMIN 4.0 g/dL 06/13/2017 Comp Metabolic Rca697 TPRO 6.4 g/dL 06/13/2017 Comp Metabolic Lqm371 GLOB 2.4 g/dL 06/13/2017 Comp Metabolic Vqq804 A/G Ratio 1.7 Ratio 06/13/2017 Comp Metabolic Wzb079 Osmo 286 mOsmo 06/13/2017 %Hba1C Voa273 % HbA1c 94828-7 11.1 % 2016 %Hba1C Xrr897 Gluc Ave 272 mg/dL 2016 C-Reactive Protein Qnt Crqnt CRP 4.7 mg/dl 2016 Comp Metabolic Zil940 NA 136 mEq/L 2016 Comp Metabolic Occ530 K 4.1 mEq/L 2016 Comp Metabolic Bct359 CL 96 mEq/L 2016 Comp Metabolic Pnk252 CO2 29.0 mEq/L 2016 Comp Metabolic Hrj214 ANION GAP 15 2016 Comp Metabolic Zge784 GLUCOSE 291 mg/dL 2016 Comp Metabolic Ywj277 Creat 0.4 mg/dL 2016 Comp Metabolic Qgc809 eGFR 165 ml/min/1.73m2 2016 Comp Metabolic Sgl535 BUN 11 mg/dL 2016 Comp Metabolic Eja092 B/C Ratio 25.0 Ratio 2016 Comp Metabolic Qjj462 CALCIUM 9.4 mg/dL 2016 Comp Metabolic Gxg890 ALK PHOS 111 U/L 2016 Comp Metabolic Nfd762 AST(SGOT) 46 U/L 2016 Comp Metabolic Tlz005 ALT(SGPT) 60 U/L 2016 Comp Metabolic Xyu185 BILI T 0.4 mg/dL 2016 Comp Metabolic Cck749 ALBUMIN 4.0 g/dL 2016 Comp Metabolic Dib652 TPRO 6.5 g/dL 2016 Comp Metabolic Wgc301 GLOB 2.6 g/dL 2016 Comp Metabolic Wzz887 A/G Ratio 1.5 Ratio 2016 Comp Metabolic Eno905 Osmo 282 mOsmo 2016 Cbc With Differential Ord2 WBC 14.64 [...] 30.5 pg 2016 Cbc With Differential Ord2 Dickinson% 4.7 % 2016 Cbc With Differential Ord2 [...] 3.53 K/ul 2016 Cbc With Differential Ord2 Dickinson ABS# 0.7 K/ul 2016 Cbc With Differential Ord2 Eos ABS# 0.2 K/ul 2016 Cbc With Differential Ord2 Baso ABS# 0.1 K/ul 2016 Lipid Ord30 CHOL 228 mg/dL 05/05/2016 Lipid Ord30 HDL 42.0 mg/dl 05/05/2016 Lipid Ord30 TRIG 168 mg/dL 05/05/2016 Lipid Ord30 LDL 152 mg/dL 05/05/2016 Lipid Ord30 C/HDL 5.4 Ratio 05/05/2016 Comp Metabolic Rxj523 NA 135 mEq/L 05/05/2016 Comp Metabolic Yam976 K 4.1 mEq/L 05/05/2016 Comp Metabolic Scq516 CL 99 mEq/L 05/05/2016 Comp Metabolic Anm386 CO2 29.0 mEq/L 05/05/2016 Comp Metabolic Beu920 ANION GAP 11 05/05/2016 Comp Metabolic Dis062 GLUCOSE 229 mg/dL 05/05/2016 Comp Metabolic Lrb987 Creat 0.5 mg/dL 05/05/2016 Comp Metabolic Ftn609 eGFR 150 ml/min/1.73m2 05/05/2016 Comp Metabolic Mst493 BUN 14 mg/dL 05/05/2016 Comp Metabolic Rfm677 B/C Ratio 29.2 Ratio 05/05/2016 Comp Metabolic Fnf210 CALCIUM 9.1 mg/dL 05/05/2016 Comp Metabolic Xiu000 ALK PHOS 112 U/L 05/05/2016 Comp Metabolic Xyy366 AST(SGOT) 59 U/L 05/05/2016 Comp Metabolic Gph555 ALT(SGPT) 63 U/L 05/05/2016 Comp Metabolic Ruh407 BILI T 0.7 mg/dL 05/05/2016 Comp Metabolic Iau153 ALBUMIN 3.8 g/dL 05/05/2016 Comp Metabolic Tes407 TPRO 6.5 g/dL 05/05/2016 Comp Metabolic Zdg166 GLOB 2.7 g/dL 05/05/2016 Comp Metabolic Hzr207 A/G Ratio 1.4 Ratio 05/05/2016 Comp Metabolic Doz759 Osmo 278 mOsmo 05/05/2016 Cbc With Differential [...] 30.2 pg 05/05/2016 Cbc With Differential Ord2 Dickinson% 4.4 % 05/05/2016 Cbc With Differential Ord2 [...] 3.59 K/ul 05/05/2016 Cbc With Differential Ord2 Dickinson ABS# 0.7 K/ul 05/05/2016 Cbc With Differential Ord2 Eos ABS# 0.1 K/ul 05/05/2016 Cbc With Differential Ord2 Baso ABS# 0.1 K/ul 05/05/2016 %Hba1C Yjg035 % HbA1c 58428-7 10.4 % 05/05/2016 %Hba1C Rhz088 Gluc Ave 252 mg/dL 05/05/2016 Hcg Beta Subunit Qual Serum 141585 B-HCG QUALITATIVE NEGATIVE 12/27/2015 GC/CHL PRB 1690605 Chl trach DNA Negative 12/25/2015 GC/CHL PRB 7892229 GC PROBE Negative 12/25/2015 Comp. Metabolic Panel (14) 82792 GLUCOSE 136 mg/dL 12/17/2015 Comp. Metabolic Panel (14) 85596 BUN 9 mg/dL 12/17/2015 Comp. Metabolic Panel (14) 47607 CREATININE 0.67 mg/dL 12/17/2015 Comp. Metabolic Panel (14) 70716 SODIUM 136 mmol/L 12/17/2015 Comp. Metabolic Panel (14) 41040 POTASSIUM 4.4 mmol/L 12/17/2015 Comp. Metabolic Panel (14) 83931 CHLORIDE 95 mmol/L 06/2015 Comp. Metabolic Panel (14) 85747 CARBON DIOXIDE 28 mmol/L 06/2015 Comp. Metabolic Panel (14) 90863 CALCIUM 10.1 mg/dL 2015 Comp. Metabolic Panel (14) 66073 TOTAL PROTEIN 7.0 g/dL 12/16 Comp. Metabolic Panel (14) 14271 ALBUMIN 4.5 g/dL 12/17/2015 Comp. Metabolic Panel (14) 53463 ALKALINE PHOSPHATASE 87 U/L 12/17/2015 Comp. Metabolic Panel (14) 66642 TOTAL BILIRUBIN 0.5 mg/dL Comp. Metabolic Panel (14) 09128 SGOT ( AST) 38 U/L 2015 Comp. Metabolic Panel (14) 29658 SGPT ( ALT) 41 U/L 2015 Comp. Metabolic Panel (14) 69293 eGFR (mL /min/1.73m2) >60 06/2015 Comp. Metabolic Panel (14) 91732 12/17/2015 Cbc With Differential/Platelet 91228 WBC 16.67 thou/uL 2015 Cbc With Differential/Platelet 03520 RBC 5.11 mil/uL 2015 Cbc With Differential/Platelet 50360 HEMOGLOBIN 14.8 g/dL 12/17/2015 Cbc With Differential/Platelet 63097 HEMATOCRIT 48.7 % 06/2015 Cbc With Differential/Platelet 83873 MCV 95.4 fL 12/17/2015 Cbc With Differential/Platelet 89712 MCH 29.0 pg 12/17/2015 Cbc With Differential/Platelet 16507 MCHC 30.4 g/dL 2015 Cbc With Differential/Platelet 49330 RDW- CV 14.6 % 12/17/2015 Cbc With Differential/Platelet 02300 PLATELET COUNT 471 thou/uL 12/17/2015 Cbc With Differential/Platelet 29093 NEUTROPHIL % 71.3 % Cbc With Differential/Platelet 75902 LYMPHOCYTE % 22.4 % Cbc With Differential/Platelet 48820 MONOCYTE % 4.8 % 12/16 Cbc With Differential/Platelet 70017 EOS % 0.7 % 12/17/2015 Cbc With Differential/Platelet 24051 BASO % 0.7 % 2015 Cbc With Differential/Platelet 59924 NEUTROPHIL ABS # 11.89 thou/uL 12/17/2015 Cbc With Differential/Platelet 98457 LYMPH ABS # 3.73 thou/uL 12/17/2015 Cbc With Differential/Platelet 26070 MONOCYTE ABS # 0.80 thou/uL 12/17/2015 Cbc With Differential/Platelet 99061 EOS ABS # 0.12 thou/uL 06/2015 Cbc With Differential/Platelet 96248 BASO ABS # 0.12 thou/uL 12/17/2015 Comp. Metabolic Panel (14) GLUCOSE 126 [...] Hgb A1C With Eag Estimation GLYCOHEMOGLOBIN A1C 48527-3 8.1 % 11/13/2015 Hgb A1C With Eag Estimation ESTIMATED AVG GLUCOSE 186 mg/dL 11/13/2015 Comp. Metabolic Panel (14) 02860 GLUCOSE 84 mg/dL 09/11/2015 Comp. Metabolic Panel (14) 49371 BUN 11 mg/dL 09/11/2015 Comp. Metabolic Panel (14) 70939 CREATININE 0.56 mg/dL 09/11/2015 Comp. Metabolic Panel (14) 67683 SODIUM 142 mmol/L 09/11/2015 Comp. Metabolic Panel (14) 66430 POTASSIUM 4.3 mmol/L 09/11/2015 Comp. Metabolic Panel (14) 70876 CHLORIDE 98 mmol/L Comp. Metabolic Panel (14) 88867 CARBON DIOXIDE 27 mmol/L Comp. Metabolic Panel (14) 34256 CALCIUM 10.1 mg/dL 2015 Comp. Metabolic Panel (14) 10459 TOTAL PROTEIN 7.2 g/dL 09/10 Comp. Metabolic Panel (14) 92290 ALBUMIN 4.7 g/dL 09/11/2015 Comp. Metabolic Panel (14) 54498 ALKALINE PHOSPHATASE 109 U/L 09/11/2015 Comp. Metabolic Panel (14) 31338 TOTAL BILIRUBIN 0.3 mg/dL Comp. Metabolic Panel (14) 76827 SGOT ( AST) 53 U/L 2015 Comp. Metabolic Panel (14) 27662 SGPT ( ALT) 53 U/L 2015 Comp. Metabolic Panel (14) 12277 eGFR (mL /min/1.73m2) >60 Comp. Metabolic Panel (14) 58092 09/11/2015 Comp. Metabolic Panel (14) 92879 GLUCOSE 183 mg/dL 08/11/2015 Comp. Metabolic Panel (14) 33192 BUN 10 mg/dL 08/11/2015 Comp. Metabolic Panel (14) 95509 CREATININE 0.46 mg/dL 08/11/2015 Comp. Metabolic Panel (14) 67102 SODIUM 138 mmol/L 08/11/2015 Comp. Metabolic Panel (14) 66732 POTASSIUM 4.0 mmol/L 08/11/2015 Comp. Metabolic Panel (14) 32878 CHLORIDE 98 mmol/L Comp. Metabolic Panel (14) 95652 CARBON DIOXIDE 29 mmol/L Comp. Metabolic Panel (14) 14888 CALCIUM 9.4 mg/dL 08/11/2015 Comp. Metabolic Panel (14) 01962 TOTAL PROTEIN 6.8 g/dL 08/11 Comp. Metabolic Panel (14) 42780 ALBUMIN 4.4 g/dL 08/11/2015 Comp. Metabolic Panel (14) 34794 ALKALINE PHOSPHATASE 118 U/L 08/11/2015 Comp. Metabolic Panel (14) 27415 TOTAL BILIRUBIN <0.3 mg/dL 08/11/2015 Comp. Metabolic Panel (14) 92650 SGOT ( AST) 41 U/L 2015 Comp. Metabolic Panel (14) 55948 SGPT ( ALT) 55 U/L 2015 Comp. Metabolic Panel (14) 93086 eGFR (mL /min/1.73m2) >60 Comp. Metabolic Panel (14) 76982 08/11/2015 Cbc With Differential/Platelet 73101 WBC 11.76 thou/uL 2015 Cbc With Differential/Platelet 32670 RBC 4.98 mil/uL 2015 Cbc With Differential/Platelet 89746 HEMOGLOBIN 14.2 g/dL 08/11/2015 Cbc With Differential/Platelet 06989 HEMATOCRIT 46.7 % Cbc With Differential/Platelet 51384 MCV 93.8 fL 08/11/2015 Cbc With Differential/Platelet 92882 MCH 28.5 pg 08/11/2015 Cbc With Differential/Platelet 61062 MCHC 30.4 g/dL 2015 Cbc With Differential/Platelet 30439 RDW- CV 14.3 % 08/11/2015 Cbc With Differential/Platelet 70102 PLATELET COUNT 382 thou/uL 08/11/2015 Cbc With Differential/Platelet 64394 NEUTROPHIL % 67.3 % Cbc With Differential/Platelet 31181 LYMPHOCYTE % 24.0 % Cbc With Differential/Platelet 31783 MONOCYTE % 6.0 % 08/11 Cbc With Differential/Platelet 42355 EOS % 1.6 % 08/11/2015 Cbc With Differential/Platelet 52304 BASO % 1.0 % 2015 Cbc With Differential/Platelet 14388 NEUTROPHIL ABS # 7.91 thou/uL 08/11/2015 Cbc With Differential/Platelet 15485 LYMPH ABS # 2.82 thou/uL 08/11/2015 Cbc With Differential/Platelet 68308 MONOCYTE ABS # 0.71 thou/uL 08/11/2015 Cbc With Differential/Platelet 61612 EOS ABS # 0.19 thou/uL Cbc With Differential/Platelet 96492 BASO ABS # 0.12 thou/uL 08/11/2015 Tsh 548929 TSH 3.220 uIU/mL 08/11/2015 Lipid Panel 73563 CHOLESTEROL 193 mg/dL 08/11/2015 Lipid Panel 89318 TRIGLYCERIDES 192 mg/dL 08/11/2015 Lipid Panel 02500 HDL 38 mg/dL 08/11/2015 Lipid Panel 56130 CHOLESTEROL/HDL 5.08 08/11/2015 Lipid Panel 28781 LDL (CALCULATED) 117 mg/dL 08/11/2015 Lipid Panel 02006 LDL/HDL 3.08 08/11/2015 Lipid Panel 01462 PHENOTYPE TYPE IV BORDERLINE 08/11/2015 Review of Systems System Result Effective [...] level 02/19/2018 None Full Exam - General 1994 Ears/Nose/Throat lips/teeth/gingiva Overall: benign lips 02/19/2018 None Full Exam - General 1994 [...] Procedure Codes Date THER/PROPH/DIAG INJ SC/IM CPT-4: 82915 06/05/2018 ROCEPHIN, PER 250 MG CPT-4: J0696 06/05/2018 REMOVAL OF SKIN TAGS <W/15 CPT-4: 11313 03/14/2018 FLU VAC NO PRSV 4 PRECIOUS 3 YRS+ CPT-4: 57171 03/14/2018 IMMUNIZATION ADMIN CPT -4: 13575 03/14/2018 TRIAMCINOLONE ACET INJ NOS CPT-4: J3301 02/19/2018 THER/PROPH/DIAG INJ SC/IM CPT-4: 71973 02/19/2018 THER/PROPH/DIAG INJ SC/IM CPT-4: 57240 09/05/2017 TRIAMCINOLONE ACET INJ NOS CPT-4: J3301 09/05/2017 IMMUNIZATION ADMIN CPT -4: 99459 04/24/2017 FLU VAC NO PRSV 4 PRECIOUS 3 YRS+ CPT-4: 48494 04/24/2017 DRAIN/INJECT JOINT/BURSA CPT-4: 03346 04/24/2017 TRIAMCINOLONE ACET INJ NOS CPT-4: J3301 04/24/2017 THER/PROPH/DIAG INJ SC/IM CPT-4: 08140 01/09/2017 TRIAMCINOLONE ACET INJ NOS CPT-4: J3301 01/09/2017 THER/PROPH/DIAG INJ SC/IM CPT-4: 34116 04/13/2016 Pneumococcal Polysaccharide Vaccine, 23-Valent, Ad CPT-4: 74742 04/13/2016 INJECT TRIGGER POINTS 3/> CPT-4: 60120 04/06/2016 TRIAMCINOLONE ACET INJ NOS CPT-4: J3301 04/06/2016 IMMUNIZATION ADMIN CPT -4: 88415 03/30/2016 IIV4 FLU VACC NO PRESERV ID SNOMED CT: [id number] CPT-4: 05928 03/30/2016 TRIAMCINOLONE ACET INJ NOS CPT-4: J3301 02/28/2016 THER/PROPH/DIAG INJ SC/IM CPT-4: 48812 02/28/2016 TRIAMCINOLONE ACET INJ NOS CPT-4: J3301 [...] Code : 8480-6 BMI: 42.4 Code : 16984-3 Heart Rate 1 : 78 bpm Height: 4'11" SpO2: 97% Weight: 210 lbs 03/26/2018 Blood Pressure 1: 128/74 Code : 8480-6 BMI: 43.0 Code : 61593-4 Heart Rate 1 : 120 bpm Height: 4'11 " SpO2: 97% Weight: 213 lbs 03/14/2018 Blood Pressure 1: 120/74 Code : 8480-6 BMI: 43.0 Code : 58644-6 Heart Rate 1 : 114 bpm Height: 4'11 " SpO2: 95% Weight: 213 lbs 03/07/2018 Blood Pressure 1: 132/74 Code : 8480-6 BMI: 43.8 Code : 47607-4 Heart Rate 1 : 123 bpm Height: [...] Code : 8480-6 BMI: 45.4 Code : 49476-6 Heart Rate 1 : 108 bpm Height: 4'11 " SpO2: 95% Weight: 225 lbs 06/07/2017 Blood Pressure 1: 13274 Code : 8480-6 Heart Rate 1: 99 bpm Height: 4'11" SpO2: 95% 04/24/2017 Blood Pressure 1: 132/8096 Code: 8480-6 BMI: 47.7 Code: 89085-3 Heart Rate 1: 96 bpm Height: 4'11" Weight: 236 lbs 01/09/2017 Blood Pressure 1: 122/74 Code : 8480-6 BMI: 46.0 Code : 67384-3 Heart Rate 1 : 114 bpm Height: 4'11 " SpO2: 98% Temperature: 37.1 (C) / 98.7 (F) Weight: 228 lbs 10/30/2016 Blood Pressure 1: 124/78 Code : 8480-6 BMI: 49.1 Code : 82779-5 Heart Rate 1 : 90 bpm Height: 4'11" SpO2: 97% Weight: 243 lbs 10/09/2016 Blood Pressure 1: 12480 Code : 8480-6 BMI: 49.3 Code : 31887-2 Heart Rate 1 : 91 bpm Height: 4'11" SpO2: 98% Weight: 244 lbs 09/12/2016 Blood Pressure 1: 128/80 Code : 8480-6 BMI: 49.1 Code : 99763-3 Heart Rate 1 : 94 bpm Height: 4'11" SpO2: 95% Weight: 243 lbs 09/05/2016 Blood Pressure 1: 118/74 Code : 8480-6 BMI: 49.1 Code : 59204-6 Heart Rate 1 : 100 bpm Height: 4'11 " SpO2: 97% Weight: 243 lbs 06/16/2016 Blood Pressure 1: 120/62 Code : 8480-6 BMI: 49.1 Code : 75299-0 Heart Rate 1 : 100 bpm Height: 4'11 " SpO2: 96% Temperature: 36.7 (C) / 98.0 (F) Weight: 243 lbs 06/13/2016 Blood Pressure 1: 120/70 Code : 8480-6 Heart Rate 1: 117 bpm SpO2: 97% 05/19/2016 Blood Pressure 1: 130/64 Code : 8480-6 BMI: 49.1 Code : 17007-8 Heart Rate 1 : 101 bpm Height: 4'11 " SpO2: 96% Weight: 243 lbs 05/08/2016 Blood Pressure 1: 12876 Code : 8480-6 Heart Rate 1: 119 bpm Height: SpO2: 97% Weight: 05/05/2016 Blood Pressure 1: 12476 Code : 8480-6 BMI: 49.1 Code : 54519-0 Heart Rate 1 : 75 bpm Height: 4'11" SpO2: 99% Weight: 243 lbs 04/10/2016 Blood Pressure 1: 140/80 Code : 8480-6 BMI: 49.7 Code : 73895-1 Heart Rate 1 : 88 bpm Height: 4'11" SpO2: 95% Weight: 246 lbs 04/06/2016 Blood Pressure 1: 134/82 Code : 8480-6 BMI: 75.1 Code : 73558-1 Heart Rate 1 : 72 bpm Height: 4' SpO2: 96% Weight: 246 lbs 03/08/2016 Blood Pressure 1: 126/72 Code : 8480-6 BMI: 49.7 Code : 03310-8 Heart Rate 1 : 89 bpm Height: 4'11" SpO2: 97% Weight: 246 lbs 02/28/2016 Blood Pressure 1: 124/68 Code : 8480-6 BMI: 49.7 Code : 49038-1 Heart Rate 1 : 89 bpm Height: 4'11" SpO2: 96% Weight: 246 lbs 01/18/2016 Blood Pressure 1: 142/78 Code : 8480-6 BMI: 48.9 Code : 82585-9 Heart Rate 1 : 97 bpm Height: 4'11" SpO2: 97% Weight: 242 lbs 12/23/2015 Blood Pressure 1: 124/74 Code : 8480-6 BMI: 48.9 Code : 76697-2 Heart Rate 1 : 106 bpm Height: 4'11 " SpO2: 96% Weight: 242 lbs 12/16/2015 Blood Pressure 1: 116/82 Code : 8480-6 BMI: 48.3 Code : 41998-9 Heart Rate 1 : 111 bpm Height: 4'11 " SpO2: 97% Weight: 239 lbs 11/11/2015 Blood Pressure 1: 130/80 Code : 8480-6 BMI: 49.7 Code : 10922-1 Heart Rate 1 : 105 bpm Height: 4'11 " SpO2: 96% Weight: 246 lbs 10/27/2015 Blood Pressure 1: 122/70 Code : 8480-6 BMI: 49.5 Code : 64227-2 Heart Rate 1 : 107 bpm Height: 4'11 " SpO2: 96% Weight: 245 lbs 10/13/2015 Blood Pressure 1: 140/82 Code : 8480-6 BMI: 50.9 Code : 75566-7 Heart Rate 1 : 111 bpm Height: 4'11 " SpO2: 96% Weight: 252 lbs 10/05/2015 Blood Pressure 1: 118/70 Code : 8480-6 BMI: 51.1 Code : 47431-3 Heart Rate 1 : 120 bpm Height: 4'11 " SpO2: 97% Weight: 253 lbs 09/01/2015 Blood Pressure 1: 132/82 Code : 8480-6 BMI: 50.1 Code : 77906-7 Heart Rate 1 : 110 bpm Height: 4'11 " SpO2: 96% Weight: 248 lbs 08/20/2015 Blood Pressure 1: 132/78 Code : 8480-6 BMI: 51.7 Code : 20669-2 Heart Rate 1 : 100 bpm Height: 4'11 " Weight: 256 lbs 08/03/2015 Blood Pressure 1: 148/92 Code : 8480-6 BMI: 52.1 Code : 45923-1 Heart Rate 1 : 100 bpm Height: [...] Diagnosis: Diarrhea, unspecified[ICD10: R19.7] Gloria Hess MD, [facility] CPT-4: 88870 06/28/2018 ([id number]) 12655 EST. PATIENT, LEVEL II Diagnosis: Cellulitis of right axilla[ICD10: L03.111] Tamy Hess MD, [facility] CPT-4: 83828 06/17/2018 [id number] EST. PATIENT, LEVEL III Diagnosis: Cellulitis of right axilla[ICD10: L03.111] Diagnosis: Type 2 diabetes mellitus with hyperglycemia[ICD10: E11.65] Gloria Hess MD, [facility] CPT-4: 16044 06/05/2018 [id number] EST. PATIENT, LEVEL III Diagnosis: Gastro-esophageal reflux disease without esophagitis[ICD10: K21.9] Diagnosis: Other allergic rhinitis[ICD10: J30.89] Diagnosis: Cough[ICD10: R05] Gloria Hess MD, [facility] CPT-4: 61078 03/26/2018 ([id number]) 77317 EST. PATIENT, LEVEL III Diagnosis: Cough[ICD10: R05] Gloria Hess MD, [facility] CPT-4: 42091 03/14/2018 [id number] EST. PATIENT, LEVEL IV Diagnosis: Acute laryngopharyngitis[ICD10: J06.0] Diagnosis: Other allergic rhinitis[ICD10: J30.89] Diagnosis: Cough[ICD10: R05] Gloria Hess MD, [facility] CPT-4: 45331 03/07/2018 12483 EST. PATIENT, LEVEL IV Diagnosis: Acute bronchitis due to other specified organisms[ICD10: J20.8] Diagnosis: Acute laryngopharyngitis[ICD10: J06.0] Gloria Hess MD, [facility] CPT-4: 43653 02/19/2018 40030 EST. PATIENT, LEVEL IV Diagnosis: Candidiasis of vulva and vagina[ICD10: B37.3] Diagnosis: Rash and other nonspecific skin eruption[ICD10: R21] Gloria Hess MD, [facility] CPT-4: 23121 01/08/2018 91393 EST. PATIENT, LEVEL III Diagnosis: Sacrococcygeal disorders, not elsewhere classified[ICD10: M53.3] Diagnosis: Low back pain[ICD10: M54.5] Gloria Hess MD, [facility] CPT-4 : 33831 11/23/2017 52783 EST. PATIENT, LEVEL III Diagnosis: Acute laryngopharyngitis[ICD10: J06.0] Diagnosis: Other allergic rhinitis[ICD10: J30.89] Diagnosis: Acute bronchitis due to other specified organisms[ICD10: J20.8] Gloria Hess MD, [facility] CPT-4: 42413 09/05/2017 77553 EST. PATIENT, LEVEL III Diagnosis: Pain in left foot[ICD10: M79.672] Diagnosis: Rash and other nonspecific skin eruption[ICD10: R21] Diagnosis: Candidiasis of vulva and vagina[ICD10: B37.3] Diagnosis: Localized edema[ICD10: R60.0] Diagnosis: Dyspnea, unspecified[ICD10: R06.00] Gloria Hess MD, [facility] CPT-4: 52371 06/07/2017 11552 EST. PATIENT, LEVEL III Diagnosis: Low back pain[ICD10: M54.5] Diagnosis: Sacroiliitis, not elsewhere classified[ICD10: M46.1] Diagnosis: Pain in left foot[ICD10: M79.672] Diagnosis: VACCIN FOR INFLUENZA[ICD10: Z23] Gloria Hess MD, [facility] CPT- 4: 59195 04/24/2017 86411 EST. PATIENT, LEVEL III Diagnosis: Acute suppurative otitis media without spontaneous rupture of ear drum, right ear[ICD10: H66.001] Diagnosis: Other allergic rhinitis[ICD10: J30.89] Gloria Hess MD, [facility] CPT-4: 36040 01/09/2017 79387 EST. PATIENT, LEVEL IV Diagnosis: Candidiasis of vulva and vagina[ICD10: B37.3] Diagnosis: Type 2 diabetes mellitus with hyperglycemia[ICD10: E11.65] Gloria Hess MD, [facility] CPT-4: 31891 10/30/2016 23454 EST. PATIENT, LEVEL III Diagnosis: Candidiasis of vulva and vagina[ICD10: B37.3] Diagnosis: Type 2 diabetes mellitus with hyperglycemia[ICD10: E11.65] Gloria Hess MD, [facility] CPT-4: 98792 10/09/2016 80849 EST. PATIENT, LEVEL IV Diagnosis: Umbilical hernia without obstruction or gangrene[ICD10: K42.9] Gloria Hess MD, [facility] CPT-4: 49037 09/12/2016 25358 EST. PATIENT, LEVEL III Diagnosis: Epigastric pain[ICD10: R10.13] Diagnosis: Candidiasis of vulva and vagina[ICD10: B37.3] Diagnosis: Type 2 diabetes mellitus with hyperglycemia[ICD10: E11.65] Gloria Hess MD, [facility] CPT-4: 32940 09/05/2016 47494 EST. PATIENT, LEVEL III Diagnosis: Acute laryngopharyngitis[ICD10: J06.0] Diagnosis: Other allergic rhinitis[ICD10: J30.89] Gloria Hess MD, [facility] CPT-4: 33640 06/16/2016 53324 EST. PATIENT, LEVEL III Diagnosis: Type 2 diabetes mellitus with hyperglycemia[ICD10: E11.65] Diagnosis: Other obesity due to excess calories[ICD10: E66.09] Gloria Hess MD, [facility] CPT-4: 98994 06/13/2016 55420 EST. PATIENT, LEVEL III Diagnosis: Type 2 diabetes mellitus with hyperglycemia[ICD10: E11.65] Diagnosis: Other obesity due to excess calories[ICD10: E66.09] Gloria Hess MD, [facility] CPT-4: 29300 05/19/2016 90801 EST. PATIENT, LEVEL III Diagnosis: Type 2 diabetes mellitus with hyperglycemia[ICD10: E11.65] Diagnosis: Other obesity due to excess calories[ICD10: E66.09] Gloria Hess MD [facility] CPT-4: 44539 05/08/2016 11709 EST. PATIENT, LEVEL III Diagnosis: Type 2 diabetes mellitus without complications[ICD10: E11.9] Gloria Hess MD [facility] CPT-4: 84471 05/05/2016 98539 EST. PATIENT, LEVEL III Diagnosis: Pain in right shoulder[ICD10: M25.511] Gloria Hess MD [facility] CPT-4: 17170 04/10/2016 11381 EST. PATIENT, LEVEL III Diagnosis: Pain in right shoulder[ICD10: M25.511] Diagnosis: Other muscle spasm[ICD10: M62.838] Diagnosis: Type 2 diabetes mellitus without complications[ICD10: E11.9] Gloria Hess MD , [facility] CPT-4: 08865 04/06/2016 56539 EST. PATIENT, LEVEL IV Diagnosis: Acute bronchitis due to other specified organisms[ICD10: J20.8] Diagnosis: Other acute sinusitis[ICD10: J01.80] Diagnosis: Acne vulgaris[ICD10: L70.0] Diagnosis: Morbid (severe) obesity due to excess calories[ICD10: E66.01] Gloria Hess MD [facility] CPT-4: 21963 03/08/2016 02568 EST. PATIENT, LEVEL IV Diagnosis: Other acute sinusitis[ICD10: J01.80] Diagnosis: Localized enlarged lymph nodes[ICD10: R59.0] Gloria Hess MD, [facility] CPT-4: 01659 02/28/2016 38637 EST. PATIENT, LEVEL III Diagnosis: Type 2 diabetes mellitus without complications[ICD10: E11.9] Gloria Hess MD , [facility] CPT-4: 18234 01/18/2016 (24663) PREV VISIT EST AGE 40-64 Diagnosis: Encounter for gynecological examination (general) (routine) without abnormal findings[ICD10: Z01.419] Diagnosis: Excessive and frequent menstruation with irregular cycle[ICD10: N92.1 ] Gloria Hess MD, [facility] CPT-4: 53736 12/23/2015 42226 EST. PATIENT, LEVEL III Diagnosis: Type 2 diabetes mellitus without complications[ICD10: E11.9] Gloria Hess MD , [facility] CPT-4: 40244 12/16/2015 67745 EST. PATIENT, LEVEL III Diagnosis: Type 2 diabetes mellitus without complications[ICD10: E11.9] Diagnosis: Other obesity due to excess calories[ICD10: E66.09] Gloria Hess MD, [facility] CPT-4: 08172 11/11/2015 32083 EST. PATIENT, LEVEL III Diagnosis: Type 2 diabetes mellitus without complications[ICD10: E11.9] Diagnosis: Other obesity due to excess calories[ICD10: E66.09] Gloria Hess MD, [facility] CPT-4: 55846 10/27/2015 49086 EST. PATIENT, LEVEL III Diagnosis: Type 2 diabetes mellitus without complications[ICD10: E11.9] Diagnosis: Other obesity due to excess calories[ICD10: E66.09] Diagnosis: Other insomnia[ICD10: G47.09] Gloria Hess MD, [facility] CPT-4 : 23305 10/13/2015 16229 EST. PATIENT, LEVEL IV Diagnosis: Acute recurrent maxillary sinusitis[ICD10: J01.01] Diagnosis: Allergic rhinitis due to pollen[ICD10: J30.1] Diagnosis: Other obesity due to excess calories[ICD10: E66.09] Gloria Hess MD, [facility] CPT-4: 82456 10/05/2015 34421 EST. PATIENT, LEVEL IV Diagnosis: Polycystic ovarian syndrome[ICD10: E28.2] Diagnosis: Other skin changes[ICD10: R23.8] Diagnosis: Other abnormal glucose[ICD10: R73.09] Gloria Hess MD, [facility] CPT-4: 56004 09/01/2015 88628 EST. PATIENT, LEVEL IV Diagnosis: Acute recurrent maxillary sinusitis[ICD10: J01.01] Diagnosis: Morbid (severe) obesity due to excess calories[ICD10: E66.01] Diagnosis: Essential (primary) hypertension[ICD10: I10] Diagnosis: Allergic rhinitis due to pollen[ICD10: J30.1] [facility] CPT-4: 73880 08/20/2015 (25945) OFFICE VISIT, NEW - LEVEL 4 Diagnosis: Essential (primary) hypertension[ICD10: I10] Diagnosis: Obstructive sleep apnea (adult) (pediatric)[ICD10: G47.33] Diagnosis: Other insomnia[ICD10: G47.09] Diagnosis: Snoring[ICD10: R06.83] Diagnosis: Morbid (severe) obesity due to excess calories[ICD10: E66.01] [facility] CPT-4: 94036 08/03/2015 Plan of Care Planned Activity Notes Codes Status Date Care Plan: Referral Order SNOMED-CT : 921716846 Pending 07/01/2018 Visit Plan: Abscess/Cellulitis - The [...] stomach pain. 06/28/2018 Appointment: Gloria Scott WPtel[facility] ([facility] Complex 06/28/2018 Patient Education: Patient Medication Summary Completed 06/28/2018 Visit Plan: Cellulitis-right frpwkr-lehepant-esx bactroban ointment until healed completely-call with any concerns 06/17/2018 Appointment: Tamy Lugo WPtel: [phone] (15 min) Moderate 06/17/2018 Patient Education: Patient [...] warmth, discharge. 06/05/2018 Appointment: Gloria Scott WPtel: [address] [place], [place] [phone] (30 min) Complex 06/05/2018 Patient Education: Patient Medication Summary Completed 06/05/2018 Patient Education: Diabetes Completed 06/05/2018 Referral: [facility] [address] Referral Initiated 04/19/2018 Care Plan: Referral Order SNOMED-CT : [id number] Pending 03/27/2018 Visit Plan: Esophageal Reflux - [...] allergy spray. 03/26/2018 Appointment: Gloria Scott WPtel: [address] [place], [place] [phone] (15 min) Moderate 03/26/2018 Patient Education: Patient Medication Summary Completed 03/26/2018 Appointment: Gloria Scott WPtel: [address] [place], [place] [phone] (15 min) Moderate 03/25/2018 Visit Plan: Skin [...] and bandaids. 03/14/2018 Appointment: Gloria Scott WPtel: [address] [place], [place] [phone] (15 min) Moderate 03/14/2018 Patient Education: Patient [...] not improve 03/07/2018 Appointment: Gloria Scott WPtel: [facility] (15 min) Moderate 03/07/2018 Patient Education: [...] acutely worsen. 02/19/2018 Appointment: Gloria Scott WPtel: [facility] (15 min) Moderate 02/19/2018 Patient Education: [...] warmth, discharge. 01/08/2018 Appointment: Gloria Scott WPtel: [facility] (30 min) Complex 01/08/2018 Patient Education: Patient [...] acutely worsen. 09/05/2017 Appointment: Gloria Scott WPtel: [facility] (15 min) Moderate 09/05/2017 Patient Education: Patient [...] send RX 06/07/2017 Appointment: Gloria Scott WPtel: [facility]5 [facility] (15 min) Moderate 06/07/2017 Patient Education: [...] of injection. 04/24/2017 Appointment: Gloria Scott WPtel: [facility]5 [facility] (30 min) Complex 04/24/2017 Patient Education: Patient Medication Summary Completed 04/24/2017 Appointment: Gloria Scott WPtel: [address] [place], [place] [phone] (30 min) Complex 03/09/2017 Appointment: Gloria Scott WPtel: [facility]3 [facility] (30 min) Complex 02/13/2017 Visit Plan: Otitis [...] allergy spray. 01/09/2017 Appointment: Gloria Scott WPtel: [facility] (10 min) Simple 01/09/2017 Patient Education: Patient Medication Summary Completed 01/09/2017 Patient Education: Obesity Completed 01/09/2017 Visit Plan: Vaginal candidiasis - will send RX - pt is to notify clinic if symptoms do not improve, if they worsen, or with any questions or concerns. Diabetes Mellitus - Uncontrolled - Will refer to digital media representative - I have recommended for the patient [...] Mellitus - Uncontrolled - Will refer to digital media representative - I have recommended for the patient [...] control. 10/09/2016 Appointment: Gloria Scott [facility]Ptel[facility] [phone] [facility] (30 min) Complex 10/09/2016 Patient Education: Patient Medication Summary Completed 10/09/2016 Patient Education: Obesity Completed 10/09/2016 Referral: Roni Roberts Referral Completed 09/18/2016 Care Plan: CT ABD & PELV W/CONTRAST LOINC : 37015-4 Pending 09/13/2016 Care Plan: Referral Order SNOMED-CT : [id number] Pending 09/13/2016 Visit Plan: Ongoing abdominal pain/hernia - will send RX - will refer - pt is to notify clinic if symptoms do not improve, if they worsen, or with any questions or concerns. 09/12/2016 Appointment: Gloria Scott [facility]Ptel[facility] [phone] [facility] (30 min) Complex 09/12/2016 Patient Education: Patient Medication Summary Completed 09/12/2016 Patient Education: Obesity Completed 09/12/2016 Care Plan: Referral Order SNOMED-CT : [id number] Pending 09/12/2016 Visit Plan: Ongoing abdominal/epigastric pain [...] control. 09/05/2016 Appointment: Gloria Scott [facility]Ptel[facility] [phone] [facility] (30 min) Complex 09/05/2016 Patient Education: [...] spray. 06/16/2016 Appointment: Gloria [facility]Ptel[facility] [phone] [facility] (10 min) Simple 06/16/2016 Patient Education: [...] weight check. 06/13/2016 Appointment: Gloria Scott WPtel: [phone] [facility] [place] (30 min) Complex 06/13/2016 Patient Education: Patient Medication Summary Completed 06/13/2016 Patient Education: Obesity Completed 06/13/2016 Appointment: Gloria Scott WPtel: [phone] [facility] [place] (30 min) Complex 06/08/2016 Visit Plan: [...] weight check. 05/19/2016 Appointment: Tamy Lugo [facility]Ptel[facility] [phone] [phone] [place] (30 min) Complex 05/19/2016 Patient [...] weight check. 05/08/2016 Appointment: Gloria Scott WPtel: [facility]5 [facility]66[facility] (15 min) Moderate 05/08/2016 Patient Education: [...] the morning. 05/05/2016 Appointment: Tamy Lugo WPtel: [facility]5 [phone] [place] (15 min) Moderate 05/05/2016 Patient Education: Patient Medication Summary Completed 05/05/2016 Patient Education: Obesity Completed 05/05/2016 Care Plan: Comp Metabolic Pending 05/05/2016 Appointment: Jocelyn Hess WPtel: [facility] Surgical Procedure 04/17/2016 Appointment: Injection 04/13/2016 Patient Education: Patient Medication Summary Completed 04/13/2016 Visit Plan: Right shoulder pain - will refer to PT - The pt is to use prn antiinflammatories to manage acute pain. The patient is to call the office if the pain is worsening or does not improve. 04/10/2016 Appointment: Gloria Scott WPtel: [phone] [facility] (30 min) Complex 04/10/2016 Patient Education: Patient [...] control. 04/06/2016 Appointment: Gloria Scott WPtel[facility] [phone] [facility] (15 min) Moderate 04/06/2016 Patient Education: [...] [place] 02/28/2016 Appointment: Gloria Scott WPtel: [phone] [facility] [place] (30 min) Complex 02/28/2016 Patient Education: Patient Medication Summary Completed 02/28/2016 Patient Education: Obesity Completed 02/28/2016 Appointment: Gloria Scott WPtel: [phone] [facility] [place] (15 min) Moderate 01/31/2016 Visit [...] otherwise, RTC yearly or prn. 12/23/2015 Appointment: Tyler Gloria WPtel[facility] [phone] [facility] [facility] 12/23/2015 Patient Education: Patient [...] %Hba1C ADD TO BLOOD IN THE LAB. [facility] : 92723-8 Pending 08/13/2015 Visit Plan: Hypertension - uncontrolled [...] 08/03/2015 Referral: Roni Roberts Referral Com[facility] Ref[facility] Initiated Referral: Roni Roberts Referral Initiated Referral: Roni Roberts Referral Initiated Instructions Comment . Abscess/Cellulitis - The patient was instructed [...] worsening of stomach upset or stomach pain. Will check fasting labs, will send for [...] further attempt to reduce peripheral edema. . Diabetes Mellitus - Improved - The [...] in one month for weight check. . Esophageal Reflux - the patient has [...] in the nasal steroid allergy spray. . Cellulitis-right ozoxcd-pqscwype-wcj bactroban ointment until healed completely-call with any concerns . Right shoulder pain [...] in one month for weight check. . Vaginal candidiasis - will send RX - pt is to notify clinic if symptoms do not improve, if they worsen, or with any questions or concerns. Diabetes Mellitus - Uncontrolled - Will refer to digital media representative - I have recommended for the patient [...] allow for greater blood glucose control. . Allergies - chronic - recommended pt [...] NSAIDs PRN Yeast - will send RX . Diabetes Mellitus - I have recommended [...] in one month for weight check. . Vaginal candidiasis - will send RX - pt is to notify clinic if symptoms do not improve, if they worsen, or with any questions or concerns. Diabetes Mellitus - Uncontrolled - Will refer to digital media representative - I have recommended for the patient [...] allow for greater blood glucose control. . Ongoing abdominal pain/hernia - will send RX - will refer - pt is to notify clinic if symptoms do not improve, if they worsen, or with any questions or concerns. . Sinusitis - Pt has acute infection [...] not improve, or with any concerns . Well Adult Female - exam completed. [...] year, otherwise, RTC yearly or prn. . Diabetes Mellitus - Uncontrolled - per [...] allow for greater blood glucose control. . Ongoing abdominal/epigastric pain - pt states [...] loss. Areas dressed wtih neosporin and bandaids. Rocephin shot today keflex to start tomorrow diflucan for 14 days will send damaso for a shot if needed will call cough rogers let me know if it is not getting better. Abscess/Cellulitis - The patient was instructed in appropriate wound care. The patient was instructed to use the antibiotic ointment as per RX. The patient is to call for any change in symptoms, increase in size of the lesion, increase in pain, worsening redness, warmth, discharge. . Skin tag removal - irritated skin [...]
--- OUTSIDE RECORDS SUMMARY | 2018-07-15 10:54 | XMS REPORT | CCD ---
Author Author Gloria Scott MD, [facility] Address [address] [place] [address] Phone Care Team Providers Care Senior Manager Name Role Phone PP Unavailable CCM Unavailable Summary Purpose Interface Exchange Insurance Providers Payer name Policy type / Coverage type Covered libertarian ID Effective Begin Date Effective End Date [facility] Commercial Insurance [id number] Unknown Unknown Family history Father Diagnosis Age At Onset Hypertension Unknown Arthritis Unknown Mother Diagnosis Age At Onset Arthritis Unknown Hyperlipidemia Unknown Daughter Diagnosis Age At Onset Asthma Unknown Social History Social History Element Codes Description Effective Dates Marital status Unknown Darin 08/03/2015 Number of children Unknown 1 08/03/[address]: 8941729 Quit less than 5 years ago 08/03/2015 [...] ICD-9: 682.3 ICD-10: L03.111 Active 06/05/2018 Unknown Type 2 diabetes mellitus with hyperglycemia [...] axilla ICD-9: 682.3 ICD-10: L03.111 06/05/2018 Active Type 2 diabetes mellitus with hyperglycemia [...] Start Date Stop Date Status Fill Instructions mupirocin 2 % topical ointment RxNorm: 954381 1 Application TOP BID 06/17/2018 06/26/2018 Active Diflucan 150 mg tablet RxNorm: 498913 1 Tablet(s) PO daily 07/02/2018 Active mupirocin 2 % topical ointment RxNorm: 361907 1 Application TOP BID 06/05/2018 No Stop Date Active Keflex 500 mg capsule RxNorm: 328426 1 Capsule(s) PO TID 201706/11/2018 Inactive ceftriaxone 500 mg solution for injection RxNorm: 8719466 Inj 06/05/2018 06/05/2018 Inactive Protonix 40 mg tablet,delayed release RxNorm: 369407 1 Tablet(s) PO BID x 1 week then daily 03/26/2018 No Stop Date Active Phenergan with Codeine Syrup RxNorm: 5-10 ML PO QID as needed cough 03/19/2018 No Stop Date Active promethazine 25 mg tablet RxNorm: 367614 Tablet(s) TAKE ONE TABLET BY MOUTH EVERY 6 TO 8 HOURS NEEDED 03/15/2018 No Stop Date Active Singulair 10 mg tablet RxNorm: 232241 1 Tablet(s) PO daily 04/12/2018 Inactive metoprolol succinate ER 100 mg tablet,extended release 24 hr RxNorm: 675233 1 Tablet(s) PO daily 03/07/2018 04/05/2018 Inactive Zithromax Z-Rashid 250 mg tablet RxNorm: 546807 1 Tablet(s) PO UD 03/07/2018 03/07/2018 Inactive prednisone 20 mg tablet RxNorm: 640940 2 Tablet(s) PO daily 03/11/2018 Inactive albuterol sulfate 2.5 mg/3 mL (0.083 %) solution for nebulization RxNorm: 817203 3 Milliliter(s) INH Q4-6H as needed dyspnea 02/19/2018 No Stop Date Active Diflucan 150 mg tablet RxNorm: 953385 Tablet(s) TAKE ONE TABLET BY MOUTH ONCE DAILY FOR 7 DAYS THEN TAKE ONE TABLET BY MOUTH ONCE A WEEK 06/04/2018 Inactive Levaquin 500 mg tablet RxNorm: 270555 1 Tablet(s) PO daily 09/201702/25/2018 Inactive prednisone 20 mg tablet RxNorm: 418837 2 Tablet(s) PO daily 09/201702/23/2018 Inactive Kenalog 40 mg/mL suspension for injection RxNorm: 5663227 15. Milliliter(s) Inj 02/19/2018 02/19/2018 Inactive hydrocodone 7.5 mg-acetaminophen 325 mg tablet RxNorm: 940438 1 Tablet(s) PO Q4H as needed 02/05/2018 03/06/2018 Inactive clindamycin HCl 300 mg capsule RxNorm: 304245 1 Capsule(s) PO TID 01/09/2018 01/15/2018 Inactive promethazine 25 mg tablet RxNorm: 446380 Tablet(s) TAKE ONE TABLET BY MOUTH EVERY 6 TO 8 HOURS NEEDED 01/08/20182017 Inactive Diflucan 150 mg tablet RxNorm: 253285 Tablet(s) TAKE ONE TABLET BY MOUTH ONCE DAILY FOR 7 DAYS THEN TAKE ONE TABLET BY MOUTH ONCE A WEEK 02/18/2018 Inactive Bactrim DS 800 mg-160 mg tablet RxNorm: 344173 1 Tablet(s) PO BID 01/08/2018 01/17/2018 Inactive prednisone 20 mg tablet RxNorm: 917057 2 Tablet(s) PO daily 01/201811/27/2017 Inactive Zithromax Z-Rashid 250 mg tablet RxNorm: 993765 1 Tablet(s) PO UD 09/05/2017 02/11/2018 Inactive Kenalog 40 mg/mL suspension for injection RxNorm: 8628571 Milliliter(s) Inj 09/05/2017 09/05/2017 Inactive prednisone 20 mg tablet RxNorm: 843585 2 Tablet(s) PO daily 09/09/2017 Inactive ibuprofen 800 mg tablet RxNorm: 567365 1 Tablet(s) PO TID 07/2702/21/2018 Inactive metoprolol succinate ER 100 mg tablet,extended release 24 hr RxNorm: 604775 TAKE ONE TABLET BY MOUTH ONCE DAILY 06/20/2017 No Stop Date Active alprazolam 0.5 mg tablet RxNorm: 672802 1 Tablet(s) PO Q8 as needed 06/20/2017 07/09/2017 Inactive Zithromax Z-Rashid 250 mg tablet RxNorm: 340291 1 Tablet(s) PO UD 06/15/2017 07/25/2017 Inactive Xopenex HFA 45 mcg/actuation aerosol inhaler RxNorm: 660065 INHALE ONE PUFF INTO LUNGS NEEDED 06/13/2017 07/14/2017 Inactive Xopenex 1.25 mg/3 mL solution for nebulization RxNorm: 510063 Milliliter(s) USE ONE VIAL IN NEBULIZER THREE TIMES DAILY 06/08/2017 No Stop Date Active Flovent HFA 44 mcg/actuation aerosol inhaler RxNorm: 299948 2 Puff(s) INH BID 06/08/2017 No Stop Date Active potassium chloride ER 10 mEq tablet,extended release RxNorm: 392905 1 Tablet(s) PO daily 06/08/2017 06/10/2017 Inactive Lasix 20 mg tablet RxNorm: 141440 1 Tablet(s) PO daily 201606/10/2017 Inactive Xopenex HFA 45 mcg/actuation aerosol inhaler RxNorm: 082282 INHALE ONE PUFF INTO LUNGS NEEDED 06/08/2017 06/12/2017 Inactive triamcinolone acetonide 0.025 % topical cream RxNorm: 8631795 1 Application TOP BID 06/07/2017 No Stop Date Active ibuprofen 800 mg tablet RxNorm: 430388 1 Tablet(s) PO TID 06/0707/06/2017 Inactive cyclobenzaprine 5 mg tablet RxNorm: 223505 1/2 Tablet(s) PO TID as needed muscle spasms 05/28/2017 06/01/2017 Inactive Diflucan 150 mg tablet RxNorm: 113858 TAKE ONE TABLET BY MOUTH ONCE DAILY FOR 7 DAYS THEN TAKE ONE TABLET BY MOUTH ONCE A WEEK 05/28/2017 01/07/2018 Inactive bumetanide 1 mg tablet RxNorm: 532298 TAKE ONE TABLET BY MOUTH TWICE DAILY 05/25/2017 No Stop Date Active meloxicam 7.5 mg tablet RxNorm: 905870 1 Tablet(s) PO daily as needed 05/25/2017 07/23/2017 Inactive Xopenex 1.25 mg/3 mL solution for nebulization RxNorm: 535336 USE ONE VIAL IN NEBULIZER THREE TIMES DAILY 05/25/2017 Inactive Protonix 40 mg tablet,delayed release RxNorm: 510132 1 Tablet(s) PO daily 05/08/2017 11/03/2017 Inactive Protonix 40 mg tablet,delayed release RxNorm: 141417 1 Tablet(s) PO daily 05/04/2017 05/03/2017 Inactive Protonix 40 mg tablet,delayed release RxNorm: 681384 1 Tablet(s) PO daily 05/04/2017 05/07/2017 Inactive meloxicam 7.5 mg tablet RxNorm: 617860 1 Tablet(s) PO daily as needed 04/25/2017 04/24/2017 Inactive meloxicam 7.5 mg tablet RxNorm: 724639 1 Tablet(s) PO daily as needed 04/25/2017 05/04/2017 Inactive promethazine 25 mg tablet RxNorm: 910834 TAKE ONE TABLET BY MOUTH EVERY 6 TO 8 HOURS NEEDED 04/25/2017 01/07/2018 Inactive Kenalog 40 mg/mL suspension for injection RxNorm: 8999842 1 Milliliter(s) Inj 04/24/2017 04/24/2017 Inactive cyclobenzaprine 5 mg tablet RxNorm: 889608 1/2 Tablet(s) PO TID as needed muscle spasms 04/24/2017 04/28/2017 Inactive Xopenex HFA 45 mcg/actuation aerosol inhaler RxNorm: 094813 INHALE ONE PUFF INTO LUNGS NEEDED 03/30/2017 04/14/2017 Inactive Humalog KwikPen 200 unit/mL (3 mL) subcutaneous RxNorm: 4138950 INJECT 35 UNITS SUBCUTANEOUSLY BEFORE MEAL(S) 03/30/2017 06/05/2017 Inactive promethazine 25 mg tablet RxNorm: 780045 Tablet(s) TAKE ONE TABLET BY MOUTH EVERY 6 TO 8 HOURS NEEDED 03/12/20172016 Inactive cyclobenzaprine 10 mg tablet RxNorm: 426327 TAKE ONE TABLET BY MOUTH ONCE DAILY NEEDED 03/06/2017 03/15/2017 Inactive lidocaine 5 % topical patch RxNorm: 7265796 USE ONE PATCH TOPICALLY DAILY. 12 HOURS ON AND THEN 12 HOURS OFF. 03/06/2017 03/15/2017 Inactive Humalog KwikPen 200 unit/mL (3 mL) subcutaneous RxNorm: 1608007 INJECT 35 UNITS SUBCUTANEOUSLY BEFORE MEAL(S) 02/20/2017 03/25/2017 Inactive promethazine 25 mg tablet RxNorm: 482844 Tablet(s) TAKE ONE TABLET BY MOUTH EVERY 6 TO 8 HOURS NEEDED 02/20/20172016 Inactive Xopenex HFA 45 mcg/actuation aerosol inhaler RxNorm: 337850 INHALE ONE PUFF INTO LUNGS NEEDED 02/20/2017 03/07/2017 Inactive bumetanide 1 mg tablet RxNorm: 708004 TAKE ONE TABLET BY MOUTH TWICE DAILY 02/15/2017 05/15/2017 Inactive bumetanide 1 mg tablet RxNorm: 472348 TAKE ONE TABLET BY MOUTH TWICE DAILY 01/15/2017 02/13/2017 Inactive metoprolol succinate ER 100 mg tablet,extended release 24 hr RxNorm: 796626 TAKE ONE TABLET BY MOUTH ONCE DAILY 01/11/2017 06/19/2017 Inactive Zithromax Z-Rashid 250 mg tablet RxNorm: 325470 1 Tablet(s) PO UD 01/09/2017 03/13/2017 Inactive meclizine 25 mg tablet RxNorm: 468662 1 Tablet(s) PO TID as needed 01/09/2017 01/18/2017 Inactive Kenalog 40 mg/mL suspension for injection RxNorm: 9514988 Milliliter(s) Inj 01/09/2017 01/09/2017 Inactive promethazine 25 mg tablet RxNorm: 052696 Tablet(s) TAKE ONE TABLET BY MOUTH EVERY 6 TO 8 HOURS NEEDED 12/29/20162016 Inactive Voltaren 1 % topical gel RxNorm: 376464 APPLY TOPICALLY TO AFFECTED AREA TWICE DAILY 12/25/2016 01/13/2017 Inactive cyclobenzaprine 10 mg tablet RxNorm: 258338 TAKE ONE TABLET BY MOUTH NEEDED 12/22/2016 12/31/2016 Inactive lidocaine 5 % topical patch RxNorm: 1644807 USE ONE PATCH TOPICALLY DAILY. 12 HOURS ON AND THEN 12 HOURS OFF. 12/22/2016 12/31/2016 Inactive hydrocodone 7.5 mg-acetaminophen 325 mg tablet RxNorm: 242524 1 Tablet(s) PO Q4H as needed 12/22/2016 01/20/2017 Inactive bumetanide 1 mg tablet RxNorm: 569811 TAKE ONE TABLET BY MOUTH TWICE DAILY 12/17/2016 01/14/2017 Inactive promethazine 25 mg tablet RxNorm: 767994 Tablet(s) TAKE ONE TABLET BY MOUTH EVERY 6 TO 8 HOURS NEEDED 11/16/20162016 Inactive spironolactone 50 mg tablet RxNorm: 855785 TAKE ONE TABLET BY MOUTH TWICE DAILY 11/15/2016 05/13/2017 Inactive Basaglar KwikPen 100 unit/mL (3 mL) subcutaneous RxNorm: 8379061 Unit(s) INJECT 35 UNITS IN THE MORNING AND 50 UNITS IN THE EVENING SUBCUTANEOUSLY 11/15/2016 03/14/2017 Inactive cyclobenzaprine 10 mg tablet RxNorm: 513022 TAKE ONE TABLET BY MOUTH NEEDED 11/15/2016 12/04/2016 Inactive lidocaine 5 % topical patch RxNorm: 8182328 1 Patch TOP daily . 12 HOURS ON, 12 HOURS OFF 11/15/2016 12/04/2016 Inactive lidocaine 4 % topical patch RxNorm: 8725157 1 Patch TOP on for 12 hours and off for 12 hours 11/14/2016 11/14/2016 Inactive promethazine 25 mg tablet RxNorm: 599713 TAKE ONE TABLET BY MOUTH EVERY 6 TO 8 HOURS NEEDED 11/14/2016 11/15/2016 Inactive Basaglar KwikPen 100 unit/mL (3 mL) subcutaneous RxNorm: 2044292 INJECT 35 UNITS IN THE MORNING AND 50 UNITS IN THE EVENING SUBCUTANEOUSLY 11/14/2016 Inactive cyclobenzaprine 10 mg tablet RxNorm: 499338 TAKE ONE TABLET BY MOUTH NEEDED 11/14/2016 11/14/2016 Inactive spironolactone 50 mg tablet RxNorm: 963323 TAKE ONE TABLET BY MOUTH TWICE DAILY 11/14/2016 11/14/2016 Inactive Diflucan 150 mg tablet RxNorm: 582431 1 Tablet(s) PO as needed prophylactic after sexual intercourse 10/30/2016 No Stop Date Active hydrocodone 7.5 mg-acetaminophen 325 mg tablet RxNorm: 520343 1 Tablet(s) PO Q4H as needed 10/30/2016 11/28/2016 Inactive clotrimazole 100 mg vaginal tablet RxNorm: 811536 1 Tablet(s) VAG QW 10/30/2016 11/28/2016 Inactive Humalog KwikPen 200 unit/mL (3 mL) subcutaneous RxNorm: 6532154 35 Unit(s) SQ AC 10/30/2016 02/19/2017 Inactive QS 30 day supply Bydureon 2 mg/0.65 mL subcutaneous pen injector RxNorm: 4089213 2 Milligram(s) SQ QW 10/30/2016 11/28/2016 Inactive Basaglar KwikPen 100 unit/mL (3 mL) subcutaneous RxNorm: 0870846 Unit(s) SQ 35 units in the morning and 50 units in the evening 10/30/2016 11/13/2016 Inactive QS 30 day supply cyclobenzaprine 10 mg tablet RxNorm: 271958 TAKE ONE TABLET BY MOUTH NEEDED 10/27/2016 11/05/2016 Inactive Diflucan 150 mg tablet RxNorm: 027265 1 Tablet(s) PO daily x 7 days then once a week 10/27/2016 10/29/2016 Inactive promethazine 25 mg tablet RxNorm: 448582 TAKE ONE TABLET BY MOUTH EVERY 6 TO 8 HOURS NEEDED 10/27/2016 11/10/2016 Inactive Diflucan 150 mg tablet RxNorm: 081808 1 Tablet(s) PO daily x 7 days then once a week 10/09/2016 10/15/2016 Inactive Diflucan 150 mg tablet RxNorm: 324615 1 Tablet(s) PO daily 10/201609/26/2016 Inactive Cipro 500 mg tablet RxNorm: 819458 1 Tablet(s) PO BID 201609/21/2016 Inactive Flagyl 500 mg tablet RxNorm: 365828 1 Tablet(s) PO TID 201609/21/2016 Inactive Diflucan 150 mg tablet RxNorm: 005666 1 Tablet(s) PO daily 09/12/2016 Inactive hydrocodone 7.5 mg-acetaminophen 325 mg tablet RxNorm: 028594 1 Tablet(s) PO Q4H as needed 07/12/2016 08/10/2016 Inactive Xopenex 1.25 mg/3 mL solution for nebulization RxNorm: 408710 3 Milliliter(s) INH TID 06/16/2016 05/24/2017 Inactive cefdinir 300 mg capsule RxNorm: 208195 1 Capsule(s) PO BID 06/25/2016 Inactive Mobic 7.5 mg tablet RxNorm: 627577 1 Tablet(s) PO daily 201506/25/2016 Inactive Levaquin 500 mg tablet RxNorm: 722308 1 Tablet(s) PO daily 06/22/2016 Inactive cyclobenzaprine 10 mg tablet RxNorm: 744286 1 Tablet(s) PO PRN as needed 06/14/2016 06/23/2016 Inactive promethazine 25 mg tablet RxNorm: 102809 TAKE ONE TABLET BY MOUTH EVERY 6 TO 8 HOURS NEEDED 06/14/2016 06/28/2016 Inactive Xopenex HFA 45 mcg/actuation aerosol inhaler RxNorm: 188705 1 Puff(s) INH PRN 06/14/2016 07/15/2016 Inactive pen needle, diabetic 32 gauge x 5/16" RxNorm: 1 use Miscellaneous AC & HS 06/13/2016 No Stop Date Active QS 30 day supply Humalog KwikPen 200 unit/mL (3 mL) subcutaneous RxNorm: 0500329 10 Unit(s) SQ AC 06/13/2016 10/29/2016 Inactive QS 30 day supply Basaglar KwikPen 100 unit/mL (3 mL) subcutaneous RxNorm: 1298337 22 units in the morning and 35 in the evening. Unit(s) SQ 06/13/2016 10/29/2016 Inactive QS 30 day supply Tivorbex 20 mg capsule RxNorm: 6539963 1 Capsule(s) PO TID as needed 06/13/2016 06/13/2016 Inactive metoprolol succinate ER 100 mg tablet,extended release 24 hr RxNorm: 587287 TAKE ONE TABLET BY MOUTH ONCE DAILY 06/13/2016 10/10/2016 Inactive hydrocodone 7.5 mg-acetaminophen 325 mg tablet RxNorm: 667113 1 Tablet(s) PO Q4H as needed 06/13/2016 07/11/2016 Inactive Voltaren 1 % topical gel RxNorm: 773005 APPLY TOPICALLY TO AFFECTED AREA TWICE DAILY 05/30/2016 07/08/2016 Inactive alprazolam 0.5 mg tablet RxNorm: 106722 1 Tablet(s) PO Q8 as needed 05/19/2016 No Stop Date Active cyclobenzaprine 10 mg tablet RxNorm: 121219 1 Tablet(s) PO PRN as needed 05/19/2016 05/28/2016 Inactive bumetanide 1 mg tablet RxNorm: 174144 TAKE ONE TABLET BY MOUTH TWICE DAILY 05/19/2016 06/17/2016 Inactive Sprintec (28) 0.25 mg-35 mcg tablet RxNorm: 996815 1 Tablet(s) PO UD 05/08/2016 No Stop Date Active Lantus Solostar 100 unit/mL (3 mL) subcutaneous insulin pen RxNorm: 229623 Unit( s) SQ UD 15units qam 30 units qhs 05/08/2016 No Stop Date Active Humalog KwikPen 200 unit/mL (3 mL) subcutaneous RxNorm: 4537047 10 Unit(s) SQ AC 05/08/2016 06/12/2016 Inactive bumetanide 1 mg tablet RxNorm: 612273 TAKE ONE TABLET BY MOUTH TWICE DAILY 04/28/2016 05/18/2016 Inactive Voltaren 1 % topical gel RxNorm: 816824 1 Application TOP BID 04/28/2016 05/07/2016 Inactive cyclobenzaprine 10 mg tablet RxNorm: 010217 1 Tablet(s) PO PRN as needed 04/28/2016 05/07/2016 Inactive hydrocodone 7.5 mg-acetaminophen 325 mg tablet RxNorm: 236729 1 Tablet(s) PO Q4H as needed 04/18/2016 05/16/2016 Inactive Lantus Solostar 100 unit/mL (3 mL) subcutaneous insulin pen RxNorm: 707899 Unit( s) SQ UD 10 units QHS x5 days, if sugars are over 200 increase to 15 units x 5 days, if sugars over 200 increase to 20 units. 04/14/2016 05/07/2016 Inactive lidocaine 4 % topical patch RxNorm: 0532582 1 Patch TOP on for 12 hours and off for 12 hours 04/13/2016 11/13/2016 Inactive Voltaren 1 % topical gel RxNorm: 736610 1 Application TOP BID 04/10/2016 04/27/2016 Inactive metformin ER 500 mg 24 hr tablet,extended release RxNorm: 544556 1 Tablet(s) PO daily 04/06/2016 05/05/2016 Inactive Kenalog 40 mg/mL suspension for injection RxNorm: 9148731 1 Milliliter(s) Inj 04/06/2016 04/06/2016 Inactive cyclobenzaprine 10 mg tablet RxNorm: 134088 1 Tablet(s) PO PRN as needed 04/06/2016 04/27/2016 Inactive WelChol 3.75 gram oral powder packet RxNorm: 141584 1 packet PO daily 04/06/2016 07/04/2016 Inactive alprazolam 0.5 mg tablet RxNorm: 036978 1 Tablet(s) PO Q8 as needed 03/30/2016 06/19/2017 Inactive Levaquin 500 mg tablet RxNorm: 750433 1 Tablet(s) PO daily 04/05/2016 Inactive metoprolol succinate ER 100 mg tablet,extended release 24 hr RxNorm: 269519 TAKE ONE TABLET BY MOUTH ONCE DAILY 03/16/2016 06/12/2016 Inactive Levaquin 500 mg tablet RxNorm: 934447 1 Tablet(s) PO daily 03/14/2016 Inactive prednisone 20 mg tablet RxNorm: 124545 2 Tablet(s) PO daily 03/12/2016 Inactive Xopenex HFA 45 mcg/actuation aerosol inhaler RxNorm: 457517 1 Puff(s) INH PRN 02/28/2016 06/13/2016 Inactive Phenergan with Codeine Syrup RxNorm: 5-10 ML PO QID as needed cough 02/28/2016 03/18/2018 Inactive Kenalog 40 mg/mL suspension for injection RxNorm: 7810381 1 Milliliter(s) Inj 02/28/2016 02/28/2016 Inactive Zithromax Z-Rashid 250 mg tablet RxNorm: 458145 1 Tablet(s) PO UD 02/28/2016 03/27/2016 Inactive alprazolam 0.5 mg tablet RxNorm: 476646 1 Tablet(s) PO Q8 as needed 02/24/2016 06/19/2017 Inactive glipizide 5 mg tablet RxNorm: 785120 1 Tablet(s) PO daily 201505/16/2016 Inactive Actos 15 mg tablet RxNorm: 487547 1 Tablet(s) PO daily 201502/16/2016 Inactive gabapentin 100 mg capsule RxNorm: 872984 1 Capsule(s) PO QHS 03/12/2016 Inactive gabapentin 100 mg capsule RxNorm: 460547 1 Capsule(s) PO QHS 01/12/2016 Inactive Bydureon 2 mg/0.65 mL subcutaneous pen injector RxNorm: 2071973 1 Milliliter(s) SQ QW 01/12/2016 01/11/2016 Inactive Bydureon 2 mg/0.65 mL subcutaneous pen injector RxNorm: 4378685 2/0.65ml Milligram (s) SQ QW 01/12/2016 05/16/2016 Inactive Bydureon 2 mg/0.65 mL subcutaneous pen injector RxNorm: 1149281 1 Milliliter(s) SQ QW 01/12/2016 01/11/2016 Inactive bumetanide 1 mg tablet RxNorm: 446265 TAKE ONE TABLET BY MOUTH TWICE DAILY 01/10/2016 04/08/2016 Inactive promethazine 25 mg tablet RxNorm: 389698 Tablet(s) Tablet(s) 1 Tablet(s) PO Q6-8H as needed 12/16/2015 04/13/2016 Inactive promethazine 25 mg tablet RxNorm: 291133 Tablet(s) 1 Tablet(s) PO Q6-8H as needed 12/10/2015 12/15/2015 Inactive Trulicity 0.75 mg/0.5 mL subcutaneous pen injector RxNorm: 7517549 INJECT ONE- HALF ML SUBCUTANEOUSLY ONCE A WEEK 12/10/2015 01/11/2016 Inactive glipizide 5 mg tablet RxNorm: 663398 1 Tablet(s) PO daily 201501/17/2016 Inactive bumetanide 1 mg tablet RxNorm: 629103 TAKE ONE TABLET BY MOUTH TWICE DAILY 12/10/2015 01/08/2016 Inactive promethazine 25 mg tablet RxNorm: 721102 Tablet(s) 1 Tablet(s) PO Q6-8H as needed 11/18/2015 12/09/2015 Inactive promethazine 25 mg tablet RxNorm: 986315 1 Tablet(s) PO Q6-8H as needed 11/16/2015 11/17/2015 Inactive glipizide 5 mg tablet RxNorm: 049210 1/2 Tablet(s) PO daily 12/15/2015 Inactive promethazine 25 mg tablet RxNorm: 745189 Tablet(s) 1 Tablet(s) PO Q6-8H as needed 11/11/2015 12/10/2015 Inactive metoprolol tartrate 50 mg tablet RxNorm: 996848 1 Tablet(s) PO BID 11/11/2015 02/08/2016 Inactive Trulicity 0.75 mg/0.5 mL subcutaneous pen injector RxNorm: 0092127 .5 Milliliter(s ) SQ QW 11/11/2015 01/11/2016 Inactive promethazine 25 mg tablet RxNorm: 186871 1 Tablet(s) PO Q6-8H as needed 10/28/2015 11/10/2015 Inactive nystatin 100,000 unit/gram topical cream RxNorm: 691520 1 Gram(s) TOP BID 10/27/2015 No Stop Date Active alprazolam 0.5 mg tablet RxNorm: 827297 1 Tablet(s) PO Q8 as needed 10/27/2015 03/29/2016 Inactive hydrocodone 7.5 mg-acetaminophen 325 mg tablet RxNorm: 368934 1 Tablet(s) PO Q4H as needed 10/27/2015 11/25/2015 Inactive Trulicity 0.75 mg/0.5 mL subcutaneous pen injector RxNorm: 3118208 .5 Milliliter(s ) SQ QW 10/27/2015 11/10/2015 Inactive glipizide 5 mg tablet RxNorm: 651751 1 Tablet(s) PO daily 201511/25/2015 Inactive hydrocodone 7.5 mg-acetaminophen 325 mg tablet RxNorm: 464817 1 Tablet(s) PO Q4H as needed 10/26/2015 10/26/2015 Inactive alprazolam 0.5 mg tablet RxNorm: 006758 1 Tablet(s) PO PRN as needed 10/26/2015 10/26/2015 Inactive promethazine 25 mg tablet RxNorm: 696072 1 Tablet(s) PO Q6-8H as needed 10/26/2015 11/15/2015 Inactive glipizide 5 mg tablet RxNorm: 542271 1/2 Tablet(s) PO daily 10/26/2015 Inactive cefdinir 300 mg capsule RxNorm: 478270 1 Capsule(s) PO BID 10/14/2015 Inactive prednisone 20 mg tablet RxNorm: 217633 2 Tablet(s) PO daily 10/09/2015 Inactive Diflucan 150 mg tablet RxNorm: 340345 1 Tablet(s) PO daily 10/11/2015 Inactive Invokamet 50 mg-500 mg tablet RxNorm: 0060005 1 Tablet(s) PO daily 10/05/2015 11/03/2015 Inactive alprazolam 0.5 mg tablet RxNorm: 519520 1 Tablet(s) PO PRN as needed 10/01/2015 02/23/2016 Inactive promethazine 25 mg tablet RxNorm: 817728 1 Tablet(s) PO Q6-8H as needed 09/30/2015 10/25/2015 Inactive bumetanide 1 mg tablet RxNorm: 864184 TAKE ONE TABLET BY MOUTH TWICE DAILY 09/30/2015 10/29/2015 Inactive bumetanide 1 mg tablet RxNorm: 919592 TAKE ONE TABLET BY MOUTH TWICE DAILY 09/20/2015 12/18/2015 Inactive bumetanide 1 mg tablet RxNorm: 322965 1 Tablet(s) PO BID 201510/19/2015 Inactive metoprolol succinate ER 100 mg tablet,extended release 24 hr RxNorm: 944320 1 Tablet(s) PO daily 09/16/2015 03/13/2016 Inactive spironolactone 50 mg tablet RxNorm: 950650 1 Tablet(s) PO BID 09/16/2015 03/13/2016 Inactive alprazolam 0.5 mg tablet RxNorm: 819574 1 Tablet(s) PO PRN as needed 09/16/2015 10/25/2015 Inactive hydrocodone 7.5 mg-acetaminophen 325 mg tablet RxNorm: 851997 1 Tablet(s) PO Q4H as needed 09/16/2015 10/25/2015 Inactive Invokamet 50 mg-1,000 mg tablet RxNorm: 8157993 1 Tablet(s) PO daily 09/06/2015 09/05/2015 Inactive Invokamet 50 mg-1,000 mg tablet RxNorm: 9048574 1 Tablet(s) PO daily 09/06/2015 12/04/2015 Inactive promethazine 25 mg tablet RxNorm: 555264 TAKE ONE TABLET BY MOUTH EVERY 6 TO 8 HOURS NEEDED 09/01/2015 09/16/2015 Inactive promethazine 25 mg tablet RxNorm: 741314 1 Tablet(s) PO Q6-8H as needed 08/27/2015 09/25/2015 Inactive metoprolol succinate ER 100 mg tablet,extended release 24 hr RxNorm: 568088 1 Tablet(s) PO daily 08/20/2015 09/15/2015 Inactive bumetanide 1 mg tablet RxNorm: 777796 1 Tablet(s) PO BID 201509/18/2015 Inactive Bumex 1 mg tablet RxNorm: 942169 1 Tablet(s) PO BID 201511/15/2015 Inactive Kenalog 40 mg/mL suspension for injection RxNorm: 1054414 Milliliter(s) Inj 08/20/2015 08/20/2015 Inactive bumetanide 1 mg tablet RxNorm: 315420 1 Tablet(s) PO BID 201508/19/2015 Inactive Levaquin 500 mg tablet RxNorm: 728263 1 Tablet(s) PO daily 09/201508/26/2015 Inactive promethazine 25 mg tablet RxNorm: 775055 1 Tablet(s) PO Q6-8H as needed 08/06/2015 08/26/2015 Inactive metformin 500 mg tablet RxNorm: 083022 Tablet(s) PO 500mg in the morning and 1000mg at night No Start Date 09/16/2015 Inactive Lantus Solostar 100 unit/mL (3 mL) subcutaneous insulin pen RxNorm: 151902 Unit( s) SQ UD 10 units QHS x 5 days, if blood sugars are above 200 increase to 15 units x 5 days, if still 200 increase to 20 units. No Start Date 04/13/2016 Inactive alprazolam 0.5 mg tablet RxNorm: 881419 1 Tablet(s) PO PRN as needed No Start Date 09/15/2015 Inactive cyclobenzaprine 10 mg tablet RxNorm: 295679 1 Tablet(s) PO PRN as needed No Start Date 04/05/2016 Inactive lidocaine 4 % topical patch RxNorm: 6667929 1 Patch TOP on for 12 hours and off for 12 hours No Start Date 04/12/2016 Inactive metoprolol tartrate 50 mg tablet RxNorm: 664004 1 Tablet(s) PO BID No Start Date 11/10/2015 Inactive spironolactone 50 mg tablet RxNorm: 935182 1 Tablet(s) PO BID No Start Date 09/15/2015 Inactive hydrocodone 7.5 mg-acetaminophen 325 mg tablet RxNorm: 068218 1 Tablet(s) PO Q4H as needed No Start Date 09/15/2015 Inactive promethazine 25 mg tablet RxNorm: 030205 1 Tablet(s) PO PRN as needed No Start Date 08/05/2015 Inactive Medication Administered Medication Codes Instructions Start Date Status ceftriaxone 500 mg solution for injection RxNorm: 4895016 06/05/2018 No longer Active Kenalog 40 mg/mL suspension for injection RxNorm: 6190074 15.Milliliter 02/19/2018 No longer Active Kenalog 40 mg/mL suspension for injection RxNorm: 1408992 Milliliter 09/05/2017 No longer Active Kenalog 40 mg/mL suspension for injection RxNorm: 6931903 1Milliliter 04/24/2017 No longer Active Kenalog 40 mg/mL suspension for injection RxNorm: 3524009 Milliliter 01/09/2017 No longer Active Kenalog 40 mg/mL suspension for injection RxNorm: 7982483 1Milliliter 04/06/2016 No longer Active Kenalog 40 mg/mL suspension for injection RxNorm: 4378378 1Milliliter 02/28/2016 No longer Active Kenalog 40 mg/mL suspension for injection RxNorm: 0314312 Milliliter 08/20/2015 No longer Active Immunizations Vaccine Codes Date Status Influenza CVX: 141 03/14/2018 completed Influenza CVX: 141 04/24/2017 completed Pneumococcal (Adult) CVX: 33 04/13/2016 completed Influenza CVX: 141 03/30/2016 completed Assessments Condition Codes Effective Dates Cellulitis of right axilla ICD-10: L03.111 ICD-9: 682.3 06/17/2018 Type 2 diabetes mellitus with hyperglycemia ICD-10: [...] For Visit Effective Dates Notes skin lesion 06/17/2018 skin lesion 06/05/2018 chest [...] Code Item Item Code Result Date %Hba1C Krk653 % HbA1c 87003-2 8.4 % 06/06/2018 %Hba1C Qss209 Gluc Ave 194 mg/dL 06/06/2018 Lipid Ord30 CHOL 233 mg/dL 03/14/2018 Lipid Ord30 HDL 38.0 mg/dl 03/14/2018 Lipid Ord30 TRIG 143 mg/dL 03/14/2018 Lipid Ord30 LDL 166 mg/dL 03/14/2018 Lipid Ord30 C/HDL 6.1 Ratio 03/14/2018 %Hba1C Ank110 % HbA1c 17741-7 9.8 % 03/14/2018 %Hba1C Nea944 Gluc Ave 235 mg/dL 03/14/2018 Tsh Ord6 TSH (3rd IS) 1.09 uIU/mL 03/14/2018 Comp Metabolic Keq325 NA 137 mEq/L 03/14/2018 Comp Metabolic Drw804 K 4.6 mEq/L 03/14/2018 Comp Metabolic Bry898 CL 100 mEq/L 03/14/2018 Comp Metabolic Xaa989 CO2 27.0 mEq/L 03/14/2018 Comp Metabolic Mik198 ANION GAP 15 03/14/2018 Comp Metabolic Oex966 GLUCOSE 144 mg/dL 03/14/2018 Comp Metabolic Jeg893 Creat 0.5 mg/dL 03/14/2018 Comp Metabolic Rny768 eGFR 138 ml/min/1.73m2 03/14/2018 Comp Metabolic Eyy661 BUN 9 mg/dL 03/14/2018 Comp Metabolic Snq988 B/C Ratio 17.6 Ratio 03/14/2018 Comp Metabolic Jgx897 CALCIUM 10.0 mg/dL 03/14/2018 Comp Metabolic Wms489 ALK PHOS 102 U/L 03/14/2018 Comp Metabolic Kxb852 AST(SGOT) 31 U/L 03/14/2018 Comp Metabolic Rjd128 ALT(SGPT) 41 U/L 03/14/2018 Comp Metabolic Xrb019 BILI T 0.5 mg/dL 03/14/2018 Comp Metabolic Swa393 ALBUMIN 4.3 g/dL 03/14/2018 Comp Metabolic Gqz188 TPRO 6.8 g/dL 03/14/2018 Comp Metabolic Xjv105 GLOB 2.5 g/dL 03/14/2018 Comp Metabolic Irt826 A/G Ratio 1.8 Ratio 03/14/2018 Comp Metabolic Omz300 Osmo 275 mOsmo 03/14/2018 Cbc With Differential [...] 90.5 fl 03/14/2018 Cbc With Differential Ord2 Mcminn% 5.6 % 03/14/2018 Cbc With Differential Ord2 [...] 4.31 K/ul 03/14/2018 Cbc With Differential Ord2 Mcminn ABS# 0.9 K/ul 03/14/2018 Cbc With Differential Ord2 Eos ABS# 0.2 K/ul 03/14/2018 Cbc With Differential Ord2 Baso ABS# 0.1 K/ul 03/14/2018 %Hba1C Gqe158 % HbA1c 71485-0 8.8 % 06/13/2017 %Hba1C Zjc651 Gluc Ave 206 mg/dL 06/13/2017 Tsh Ord6 [...] 30.2 pg 06/13/2017 Cbc With Differential Ord2 Mcminn% 4.9 % 06/13/2017 Cbc With Differential Ord2 [...] 3.21 K/ul 06/13/2017 Cbc With Differential Ord2 Mcminn ABS# 0.7 K/ul 06/13/2017 Cbc With Differential Ord2 Eos ABS# 0.2 K/ul 06/13/2017 Cbc With Differential Ord2 Baso ABS# 0.1 K/ul 06/13/2017 Lipid Ord30 CHOL 219 mg/dL 06/13/2017 Lipid Ord30 HDL 40.0 mg/dl 06/13/2017 Lipid Ord30 TRIG 200 mg/dL 06/13/2017 Lipid Ord30 LDL 139 mg/dL 06/13/2017 Lipid Ord30 C/HDL 5.5 Ratio 06/13/2017 Comp Metabolic Wrq668 NA 139 mEq/L 06/13/2017 Comp Metabolic Bff414 K 4.4 mEq/L 06/13/2017 Comp Metabolic Pep600 CL 100 mEq/L 06/13/2017 Comp Metabolic Zvv359 CO2 29.0 mEq/L 06/13/2017 Comp Metabolic Wkz211 ANION GAP 14 06/13/2017 Comp Metabolic Rkc625 GLUCOSE 257 mg/dL 06/13/2017 Comp Metabolic Rvv118 Creat 0.5 mg/dL 06/13/2017 Comp Metabolic Bqm056 eGFR 145 ml/min/1.73m2 06/13/2017 Comp Metabolic Dol507 BUN 13 mg/dL 06/13/2017 Comp Metabolic Bmc066 B/C Ratio 26.5 Ratio 06/13/2017 Comp Metabolic Uxk645 CALCIUM 9.7 mg/dL 06/13/2017 Comp Metabolic Ysh995 ALK PHOS 98 U/L 06/13/2017 Comp Metabolic Iqj029 AST(SGOT) 30 U/L 06/13/2017 Comp Metabolic Rzl046 ALT(SGPT) 43 U/L 06/13/2017 Comp Metabolic Xct453 BILI T 0.5 mg/dL 06/13/2017 Comp Metabolic Ksi274 ALBUMIN 4.0 g/dL 06/13/2017 Comp Metabolic Utj380 TPRO 6.4 g/dL 06/13/2017 Comp Metabolic Ecz600 GLOB 2.4 g/dL 06/13/2017 Comp Metabolic Svk565 A/G Ratio 1.7 Ratio 06/13/2017 Comp Metabolic Epl327 Osmo 286 mOsmo 06/13/2017 %Hba1C Txa536 % HbA1c 70807-1 11.1 % 2016 %Hba1C Knb673 Gluc Ave 272 mg/dL 2016 C-Reactive Protein Qnt Crqnt CRP 4.7 mg/dl 2016 Comp Metabolic Czv253 NA 136 mEq/L 2016 Comp Metabolic Obj119 K 4.1 mEq/L 2016 Comp Metabolic Toh286 CL 96 mEq/L 2016 Comp Metabolic Psd423 CO2 29.0 mEq/L 2016 Comp Metabolic Wio475 ANION GAP 15 2016 Comp Metabolic Tej563 GLUCOSE 291 mg/dL 2016 Comp Metabolic Phw981 Creat 0.4 mg/dL 2016 Comp Metabolic Hua905 eGFR 165 ml/min/1.73m2 2016 Comp Metabolic Git827 BUN 11 mg/dL 2016 Comp Metabolic Gsf203 B/C Ratio 25.0 Ratio 2016 Comp Metabolic Ncx729 CALCIUM 9.4 mg/dL 2016 Comp Metabolic Zvl052 ALK PHOS 111 U/L 2016 Comp Metabolic Atb006 AST(SGOT) 46 U/L 2016 Comp Metabolic Rpc517 ALT(SGPT) 60 U/L 2016 Comp Metabolic Ajz233 BILI T 0.4 mg/dL 2016 Comp Metabolic Jkb791 ALBUMIN 4.0 g/dL 2016 Comp Metabolic Azx759 TPRO 6.5 g/dL 2016 Comp Metabolic Glt259 GLOB 2.6 g/dL 2016 Comp Metabolic Qam197 A/G Ratio 1.5 Ratio 2016 Comp Metabolic Coi430 Osmo 282 mOsmo 2016 Cbc With Differential [...] 30.5 pg 2016 Cbc With Differential Ord2 Mcminn% 4.7 % 2016 Cbc With Differential Ord2 [...] 3.53 K/ul 2016 Cbc With Differential Ord2 Mcminn ABS# 0.7 K/ul 2016 Cbc With Differential Ord2 Eos ABS# 0.2 K/ul 2016 Cbc With Differential Ord2 Baso ABS# 0.1 K/ul 2016 Lipid Ord30 CHOL 228 mg/dL 05/05/2016 Lipid Ord30 HDL 42.0 mg/dl 05/05/2016 Lipid Ord30 TRIG 168 mg/dL 05/05/2016 Lipid Ord30 LDL 152 mg/dL 05/05/2016 Lipid Ord30 C/HDL 5.4 Ratio 05/05/2016 Comp Metabolic Afa239 NA 135 mEq/L 05/05/2016 Comp Metabolic Vcw779 K 4.1 mEq/L 05/05/2016 Comp Metabolic Igi239 CL 99 mEq/L 05/05/2016 Comp Metabolic Xks464 CO2 29.0 mEq/L 05/05/2016 Comp Metabolic Gnk633 ANION GAP 11 05/05/2016 Comp Metabolic Zgw015 GLUCOSE 229 mg/dL 05/05/2016 Comp Metabolic Pgn869 Creat 0.5 mg/dL 05/05/2016 Comp Metabolic Fkr812 eGFR 150 ml/min/1.73m2 05/05/2016 Comp Metabolic Bwh096 BUN 14 mg/dL 05/05/2016 Comp Metabolic Cby241 B/C Ratio 29.2 Ratio 05/05/2016 Comp Metabolic Dig940 CALCIUM 9.1 mg/dL 05/05/2016 Comp Metabolic Fvp056 ALK PHOS 112 U/L 05/05/2016 Comp Metabolic Cuz854 AST(SGOT) 59 U/L 05/05/2016 Comp Metabolic Vnc914 ALT(SGPT) 63 U/L 05/05/2016 Comp Metabolic Aod205 BILI T 0.7 mg/dL 05/05/2016 Comp Metabolic Tla228 ALBUMIN 3.8 g/dL 05/05/2016 Comp Metabolic Lhm476 TPRO 6.5 g/dL 05/05/2016 Comp Metabolic Nqr347 GLOB 2.7 g/dL 05/05/2016 Comp Metabolic Feb822 A/G Ratio 1.4 Ratio 05/05/2016 Comp Metabolic Mws762 Osmo 278 mOsmo 05/05/2016 Cbc With Differential [...] 30.2 pg 05/05/2016 Cbc With Differential Ord2 Mcminn% 4.4 % 05/05/2016 Cbc With Differential Ord2 [...] 3.59 K/ul 05/05/2016 Cbc With Differential Ord2 Mcminn ABS# 0.7 K/ul 05/05/2016 Cbc With Differential Ord2 Eos ABS# 0.1 K/ul 05/05/2016 Cbc With Differential Ord2 Baso ABS# 0.1 K/ul 05/05/2016 %Hba1C Kdf743 % HbA1c 22969-1 10.4 % 05/05/2016 %Hba1C Rqu747 Gluc Ave 252 mg/dL 05/05/2016 Hcg Beta Subunit Qual Serum 664897 B-HCG QUALITATIVE NEGATIVE 12/27/2015 GC/CHL PRB 4185688 Chl trach DNA Negative 12/25/2015 GC/CHL PRB [id number] GC PROBE Negative 12/25/2015 Comp. Metabolic Panel (14) 26109 GLUCOSE 136 mg/dL 12/17/2015 Comp. Metabolic Panel (14) 27026 BUN 9 mg/dL 12/17/2015 Comp. Metabolic Panel (14) 99465 CREATININE 0.67 mg/dL 12/17/2015 Comp. Metabolic Panel (14) 51491 SODIUM 136 mmol/L 12/17/2015 Comp. Metabolic Panel (14) 25443 POTASSIUM 4.4 mmol/L 12/17/2015 Comp. Metabolic Panel (14) 71654 CHLORIDE 95 mmol/L 06/2015 Comp. Metabolic Panel (14) 90362 CARBON DIOXIDE 28 mmol/L 06/2015 Comp. Metabolic Panel (14) 94568 CALCIUM 10.1 mg/dL 2015 Comp. Metabolic Panel (14) 18991 TOTAL PROTEIN 7.0 g/dL 12/16 Comp. Metabolic Panel (14) 84899 ALBUMIN 4.5 g/dL 12/17/2015 Comp. Metabolic Panel (14) 22557 ALKALINE PHOSPHATASE 87 U/L 12/17/2015 Comp. Metabolic Panel (14) 78178 TOTAL BILIRUBIN 0.5 mg/dL Comp. Metabolic Panel (14) 21940 SGOT ( AST) 38 U/L 2015 Comp. Metabolic Panel (14) 82659 SGPT ( ALT) 41 U/L 2015 Comp. Metabolic Panel (14) 86374 eGFR (mL /min/1.73m2) >60 06/2015 Comp. Metabolic Panel (14) 29867 12/17/2015 Cbc With Differential/Platelet 97952 WBC 16.67 thou/uL 2015 Cbc With Differential/Platelet 33765 RBC 5.11 mil/uL 2015 Cbc With Differential/Platelet 68441 HEMOGLOBIN 14.8 g/dL 12/17/2015 Cbc With Differential/Platelet 88404 HEMATOCRIT 48.7 % 06/2015 Cbc With Differential/Platelet 72879 MCV 95.4 fL 12/17/2015 Cbc With Differential/Platelet 88862 MCH 29.0 pg 12/17/2015 Cbc With Differential/Platelet 32980 MCHC 30.4 g/dL 2015 Cbc With Differential/Platelet 03642 RDW- CV 14.6 % 12/17/2015 Cbc With Differential/Platelet 20269 PLATELET COUNT 471 thou/uL 12/17/2015 Cbc With Differential/Platelet 34837 NEUTROPHIL % 71.3 % Cbc With Differential/Platelet 72708 LYMPHOCYTE % 22.4 % Cbc With Differential/Platelet 76710 MONOCYTE % 4.8 % 12/16 Cbc With Differential/Platelet 92635 EOS % 0.7 % 12/17/2015 Cbc With Differential/Platelet 71844 BASO % 0.7 % 2015 Cbc With Differential/Platelet 54122 NEUTROPHIL ABS # 11.89 thou/uL 12/17/2015 Cbc With Differential/Platelet 04801 LYMPH ABS # 3.73 thou/uL 12/17/2015 Cbc With Differential/Platelet 35643 MONOCYTE ABS # 0.80 thou/uL 12/17/2015 Cbc With Differential/Platelet 36983 EOS ABS # 0.12 thou/uL 06/2015 Cbc With Differential/Platelet 28957 BASO ABS # 0.12 thou/uL 12/17/2015 Comp. [...] Hgb A1C With Eag Estimation GLYCOHEMOGLOBIN A1C 76928-0 8.1 % 11/13/2015 Hgb A1C With Eag Estimation ESTIMATED AVG GLUCOSE 186 mg/dL 11/13/2015 Comp. Metabolic Panel (14) 13376 GLUCOSE 84 mg/dL 09/11/2015 Comp. Metabolic Panel (14) 19630 BUN 11 mg/dL 09/11/2015 Comp. Metabolic Panel (14) 09458 CREATININE 0.56 mg/dL 09/11/2015 Comp. Metabolic Panel (14) 26610 SODIUM 142 mmol/L 09/11/2015 Comp. Metabolic Panel (14) 16831 POTASSIUM 4.3 mmol/L 09/11/2015 Comp. Metabolic Panel (14) 87269 CHLORIDE 98 mmol/L Comp. Metabolic Panel (14) 19634 CARBON DIOXIDE 27 mmol/L Comp. Metabolic Panel (14) 35581 CALCIUM 10.1 mg/dL 2015 Comp. Metabolic Panel (14) 00958 TOTAL PROTEIN 7.2 g/dL 09/10 Comp. Metabolic Panel (14) 28614 ALBUMIN 4.7 g/dL 09/11/2015 Comp. Metabolic Panel (14) 48776 ALKALINE PHOSPHATASE 109 U/L 09/11/2015 Comp. Metabolic Panel (14) 48544 TOTAL BILIRUBIN 0.3 mg/dL Comp. Metabolic Panel (14) 54863 SGOT ( AST) 53 U/L 2015 Comp. Metabolic Panel (14) 60203 SGPT ( ALT) 53 U/L 2015 Comp. Metabolic Panel (14) 73853 eGFR (mL /min/1.73m2) >60 Comp. Metabolic Panel (14) 93440 09/11/2015 Comp. Metabolic Panel (14) 67518 GLUCOSE 183 mg/dL 08/11/2015 Comp. Metabolic Panel (14) 51745 BUN 10 mg/dL 08/11/2015 Comp. Metabolic Panel (14) 81545 CREATININE 0.46 mg/dL 08/11/2015 Comp. Metabolic Panel (14) 10232 SODIUM 138 mmol/L 08/11/2015 Comp. Metabolic Panel (14) 05440 POTASSIUM 4.0 mmol/L 08/11/2015 Comp. Metabolic Panel (14) 52610 CHLORIDE 98 mmol/L Comp. Metabolic Panel (14) 57595 CARBON DIOXIDE 29 mmol/L Comp. Metabolic Panel (14) 78553 CALCIUM 9.4 mg/dL 08/11/2015 Comp. Metabolic Panel (14) 53659 TOTAL PROTEIN 6.8 g/dL 08/11 Comp. Metabolic Panel (14) 49857 ALBUMIN 4.4 g/dL 08/11/2015 Comp. Metabolic Panel (14) 64466 ALKALINE PHOSPHATASE 118 U/L 08/11/2015 Comp. Metabolic Panel (14) 66608 TOTAL BILIRUBIN <0.3 mg/dL 08/11/2015 Comp. Metabolic Panel (14) 47530 SGOT ( AST) 41 U/L 2015 Comp. Metabolic Panel (14) 16720 SGPT ( ALT) 55 U/L 2015 Comp. Metabolic Panel (14) 98249 eGFR (mL /min/1.73m2) >60 Comp. Metabolic Panel (14) 91751 08/11/2015 Cbc With Differential/Platelet 45127 WBC 11.76 thou/uL 2015 Cbc With Differential/Platelet 96040 RBC 4.98 mil/uL 2015 Cbc With Differential/Platelet 75927 HEMOGLOBIN 14.2 g/dL 08/11/2015 Cbc With Differential/Platelet 27685 HEMATOCRIT 46.7 % Cbc With Differential/Platelet 36959 MCV 93.8 fL 08/11/2015 Cbc With Differential/Platelet 66279 MCH 28.5 pg 08/11/2015 Cbc With Differential/Platelet 88061 MCHC 30.4 g/dL 2015 Cbc With Differential/Platelet 29072 RDW- CV 14.3 % 08/11/2015 Cbc With Differential/Platelet 22857 PLATELET COUNT 382 thou/uL 08/11/2015 Cbc With Differential/Platelet 10273 NEUTROPHIL % 67.3 % Cbc With Differential/Platelet 83520 LYMPHOCYTE % 24.0 % Cbc With Differential/Platelet 22724 MONOCYTE % 6.0 % 08/11 Cbc With Differential/Platelet 20444 EOS % 1.6 % 08/11/2015 Cbc With Differential/Platelet 19382 BASO % 1.0 % 2015 Cbc With Differential/Platelet 90168 NEUTROPHIL ABS # 7.91 thou/uL 08/11/2015 Cbc With Differential/Platelet 80456 LYMPH ABS # 2.82 thou/uL 08/11/2015 Cbc With Differential/Platelet 92771 MONOCYTE ABS # 0.71 thou/uL 08/11/2015 Cbc With Differential/Platelet 05227 EOS ABS # 0.19 thou/uL Cbc With Differential/Platelet 83229 BASO ABS # 0.12 thou/uL 08/11/2015 Tsh 744447 TSH 3.220 uIU/mL 08/11/2015 Lipid Panel 85723 CHOLESTEROL 193 mg/dL 08/11/2015 Lipid Panel 92720 TRIGLYCERIDES 192 mg/dL 08/11/2015 Lipid Panel 88186 HDL 38 mg/dL 08/11/2015 Lipid Panel 79853 CHOLESTEROL/HDL 5.08 08/11/2015 Lipid Panel 52535 LDL (CALCULATED) 117 mg/dL 08/11/2015 Lipid Panel 41809 LDL/HDL 3.08 08/11/2015 Lipid Panel 23486 PHENOTYPE TYPE IV BORDERLINE 08/11/2015 Review of Systems System Result Effective Dates Constitutional No recent illness 2017 Constitutional No [...] erythematous 06/05/2018 None Full Exam - General 1995 Constitutional general appearance Overall: well developed 03/26/2018 [...] clear 03/07/2018 None Full Exam - General 1995 Ears/Nose/Throat [...] clear 03/07/2018 None Full Exam - General 1995 Ears/Nose/Throat otoscopic exam Overall: tympanic membranes clear [...] normal 02/19/2018 None Full Exam - General 1995 Ears/Nose/Throat otoscopic exam Overall: external auditory canals [...] Procedure Codes Date THER/PROPH/DIAG INJ SC/IM CPT-4: 91783 06/05/2018 ROCEPHIN, PER 250 MG CPT-4: J0696 06/05/2018 REMOVAL OF SKIN TAGS <W/15 CPT-4: 45650 03/14/2018 FLU VAC NO PRSV 4 PRECIOUS 3 YRS+ CPT-4: 19743 03/14/2018 IMMUNIZATION ADMIN CPT -4: 15904 03/14/2018 TRIAMCINOLONE ACET INJ NOS CPT-4: J3301 02/19/2018 THER/PROPH/DIAG INJ SC/IM CPT-4: 21123 02/19/2018 THER/PROPH/DIAG INJ SC/IM CPT-4: 93335 09/05/2017 TRIAMCINOLONE ACET INJ NOS CPT-4: J3301 09/05/2017 IMMUNIZATION ADMIN CPT -4: 58704 04/24/2017 FLU VAC NO PRSV 4 PRECIOUS 3 YRS+ CPT-4: 73970 04/24/2017 DRAIN/INJECT JOINT/BURSA CPT-4: 72617 04/24/2017 TRIAMCINOLONE ACET INJ NOS CPT-4: J3301 04/24/2017 THER/PROPH/DIAG INJ SC/IM CPT-4: 03005 01/09/2017 TRIAMCINOLONE ACET INJ NOS CPT-4: J3301 01/09/2017 THER/PROPH/DIAG INJ SC/IM CPT-4: 88833 04/13/2016 Pneumococcal Polysaccharide Vaccine, 23-Valent, Ad CPT-4: 01585 04/13/2016 INJECT TRIGGER POINTS 3/> CPT-4: 79253 04/06/2016 TRIAMCINOLONE ACET INJ NOS CPT-4: J3301 04/06/2016 IMMUNIZATION ADMIN CPT -4: 33747 03/30/2016 IIV4 FLU VACC NO PRESERV ID SNOMED CT: [id number] CPT-4: 16386 03/30/2016 TRIAMCINOLONE ACET INJ NOS CPT-4: J3301 02/28/2016 THER/PROPH/DIAG INJ SC/IM CPT-4: 78954 02/28/2016 TRIAMCINOLONE ACET INJ NOS CPT-4: J3301 08/20/2015 Vital Signs Date Vital 06/17/2018 Blood Pressure 1: 128/74 Code : 8480-6 Heart Rate 1: 112 bpm Height: 4'11" SpO2: 97% Temperature: 36.9 (C) / 98.4 (F) Weight: 06/05/2018 Blood Pressure 1: 127 Code : 8480-6 BMI: 42.4 Code : 33862-6 Heart Rate 1 : 78 bpm Height: 4'11" SpO2: 97% Weight: 210 lbs 03/26/2018 Blood Pressure 1: 128 Code : 8480-6 BMI: 43.0 Code : 02781-9 Heart Rate 1 : 120 bpm Height: 4'11 " SpO2: 97% Weight: 213 lbs 03/14/2018 Blood Pressure 1: 120 Code : 8480-6 BMI: 43.0 Code : 84727-6 Heart Rate 1 : 114 bpm Height: 4'11 " SpO2: 95% Weight: 213 lbs 03/07/2018 Blood Pressure 1: 132 Code : 8480-6 BMI: 43.8 Code : 73495-0 Heart Rate 1 : 123 bpm Height: [...] Code : 8480-6 BMI: 45.4 Code : 79613-2 Heart Rate 1 : 108 bpm Height: 4'11 " SpO2: 95% Weight: 225 lbs 06/07/2017 Blood Pressure 1: 13274 Code : 8480-6 Heart Rate 1: 99 bpm Height: 4'11" SpO2: 95% 04/24/2017 Blood Pressure 1: 132/8096 Code: 8480-6 BMI: 47.7 Code: 81752-2 Heart Rate 1: 96 bpm Height: 4'11" Weight: 236 lbs 01/09/2017 Blood Pressure 1: 122/74 Code : 8480-6 BMI: 46.0 Code : 93996-5 Heart Rate 1 : 114 bpm Height: 4'11 " SpO2: 98% Temperature: 37.1 (C) / 98.7 (F) Weight: 228 lbs 10/30/2016 Blood Pressure 1: 124/ Code : 8480-6 BMI: 49.1 Code : 92587-0 Heart Rate 1 : 90 bpm Height: 4'11" SpO2: 97% Weight: 243 lbs 10/09/2016 Blood Pressure 1: 124 Code : 8480-6 BMI: 49.3 Code : 84804-5 Heart Rate 1 : 91 bpm Height: 4'11" SpO2: 98% Weight: 244 lbs 09/12/2016 Blood Pressure 1: 12880 Code : 8480-6 BMI: 49.1 Code : 21891-3 Heart Rate 1 : 94 bpm Height: 4'11" SpO2: 95% Weight: 243 lbs 09/05/2016 Blood Pressure 1: 11874 Code : 8480-6 BMI: 49.1 Code : 52871-1 Heart Rate 1 : 100 bpm Height: 4'11 " SpO2: 97% Weight: 243 lbs 06/16/2016 Blood Pressure 1: 120/62 Code : 8480-6 BMI: 49.1 Code : 16313-1 Heart Rate 1 : 100 bpm Height: 4'11 " SpO2: 96% Temperature: 36.7 (C) / 98.0 (F) Weight: 243 lbs 06/13/2016 Blood Pressure 1: 120/70 Code : 8480-6 Heart Rate 1: 117 bpm SpO2: 97% 05/19/2016 Blood Pressure 1: 130/64 Code : 8480-6 BMI: 49.1 Code : 70069-7 Heart Rate 1 : 101 bpm Height: 4'11 " SpO2: 96% Weight: 243 lbs 05/08/2016 Blood Pressure 1: 12876 Code : 8480-6 Heart Rate 1: 119 bpm Height: SpO2: 97% Weight: 05/05/2016 Blood Pressure 1: 124/76 Code : 8480-6 BMI: 49.1 Code : 25965-3 Heart Rate 1 : 75 bpm Height: 4'11" SpO2: 99% Weight: 243 lbs 04/10/2016 Blood Pressure 1: 140/80 Code : 8480-6 BMI: 49.7 Code : 32287-4 Heart Rate 1 : 88 bpm Height: 4'11" SpO2: 95% Weight: 246 lbs 04/06/2016 Blood Pressure 1: 134/82 Code : 8480-6 BMI: 75.1 Code : 58842-3 Heart Rate 1 : 72 bpm Height: 4' SpO2: 96% Weight: 246 lbs 03/08/2016 Blood Pressure 1: 126/72 Code : 8480-6 BMI: 49.7 Code : 55251-8 Heart Rate 1 : 89 bpm Height: 4'11" SpO2: 97% Weight: 246 lbs 02/28/2016 Blood Pressure 1: 124/68 Code : 8480-6 BMI: 49.7 Code : 56335-7 Heart Rate 1 : 89 bpm Height: 4'11" SpO2: 96% Weight: 246 lbs 01/18/2016 Blood Pressure 1: 142/78 Code : 8480-6 BMI: 48.9 Code : 20549-0 Heart Rate 1 : 97 bpm Height: 4'11" SpO2: 97% Weight: 242 lbs 12/23/2015 Blood Pressure 1: 124/74 Code : 8480-6 BMI: 48.9 Code : 59072-5 Heart Rate 1 : 106 bpm Height: 4'11 " SpO2: 96% Weight: 242 lbs 12/16/2015 Blood Pressure 1: 116/82 Code : 8480-6 BMI: 48.3 Code : 79890-5 Heart Rate 1 : 111 bpm Height: 4'11 " SpO2: 97% Weight: 239 lbs 11/11/2015 Blood Pressure 1: 130/80 Code : 8480-6 BMI: 49.7 Code : 20896-3 Heart Rate 1 : 105 bpm Height: 4'11 " SpO2: 96% Weight: 246 lbs 10/27/2015 Blood Pressure 1: 122/70 Code : 8480-6 BMI: 49.5 Code : 49161-4 Heart Rate 1 : 107 bpm Height: 4'11 " SpO2: 96% Weight: 245 lbs 10/13/2015 Blood Pressure 1: 140/82 Code : 8480-6 BMI: 50.9 Code : 38537-8 Heart Rate 1 : 111 bpm Height: 4'11 " SpO2: 96% Weight: 252 lbs 10/05/2015 Blood Pressure 1: 118/70 Code : 8480-6 BMI: 51.1 Code : 09863-4 Heart Rate 1 : 120 bpm Height: 4'11 " SpO2: 97% Weight: 253 lbs 09/01/2015 Blood Pressure 1: 132/82 Code : 8480-6 BMI: 50.1 Code : 14033-1 Heart Rate 1 : 110 bpm Height: 4'11 " SpO2: 96% Weight: 248 lbs 08/20/2015 Blood Pressure 1: 132/78 Code : 8480-6 BMI: 51.7 Code : 17921-8 Heart Rate 1 : 100 bpm Height: 4'11 " Weight: 256 lbs 08/03/2015 Blood Pressure 1: 148/92 Code : 8480-6 BMI: 52.1 Code : 93122-4 Heart Rate 1 : 100 bpm Height: 4'11 " SpO2: 97% Weight: 258 lbs Functional Status No Functional Status data History of Present Illness Symptom Name Status Result Effective Date Notes Onset and Resolution sudden in onset 06/17/2018 [...] data Encounters Encounter Performer Location Codes Date () 57049 EST. PATIENT, LEVEL II Diagnosis: Cellulitis of right axilla[ICD10: L03.111] Tamy Hess MD, [facility] CPT-4: 81819 06/17/2018 67637 EST. PATIENT, LEVEL III Diagnosis: Cellulitis of right axilla[ICD10: L03.111] Diagnosis: Type 2 diabetes mellitus with hyperglycemia[ICD10: E11.65] Gloria Hess MD, [facility] CPT-4: 37105 06/05/2018 [id number] EST. PATIENT, LEVEL III Diagnosis: Gastro-esophageal reflux disease without esophagitis[ICD10: K21.9] Diagnosis: Other allergic rhinitis[ICD10: J30.89] Diagnosis: Cough[ICD10: R05] Gloria Hess MD, [facility] CPT-4: 55624 03/26/2018 (15600) 05258 EST. PATIENT, LEVEL III Diagnosis: Cough[ICD10: R05] Gloria Hess MD, [facility] CPT-4: 41252 03/14/2018 [id number] EST. PATIENT, LEVEL IV Diagnosis: Acute laryngopharyngitis[ICD10: J06.0] Diagnosis: Other allergic rhinitis[ICD10: J30.89] Diagnosis: Cough[ICD10: R05] Gloria Hess MD, [facility] CPT-4: 60700 03/07/2018 [id number] EST. PATIENT, LEVEL IV Diagnosis: Acute bronchitis due to other specified organisms[ICD10: J20.8] Diagnosis: Acute laryngopharyngitis[ICD10: J06.0] Gloria Hess MD, [facility] CPT-4: 13872 02/19/2018 83877 EST. PATIENT, LEVEL IV Diagnosis: Candidiasis of vulva and vagina[ICD10: B37.3] Diagnosis: Rash and other nonspecific skin eruption[ICD10: R21] Gloria Hess MD, [facility] CPT-4: 75737 01/08/2018 64961 EST. PATIENT, LEVEL III Diagnosis: Sacrococcygeal disorders, not elsewhere classified[ICD10: M53.3] Diagnosis: Low back pain[ICD10: M54.5] Gloria Hess MD, [facility] CPT-4 : 33057 11/23/2017 82215 EST. PATIENT, LEVEL III Diagnosis: Acute laryngopharyngitis[ICD10: J06.0] Diagnosis: Other allergic rhinitis[ICD10: J30.89] Diagnosis: Acute bronchitis due to other specified organisms[ICD10: J20.8] Gloria Hess MD, [facility] CPT-4: 71750 09/05/2017 62219 EST. PATIENT, LEVEL III Diagnosis: Pain in left foot[ICD10: M79.672] Diagnosis: Rash and other nonspecific skin eruption[ICD10: R21] Diagnosis: Candidiasis of vulva and vagina[ICD10: B37.3] Diagnosis: Localized edema[ICD10: R60.0] Diagnosis: Dyspnea, unspecified[ICD10: R06.00] Gloria Hess MD, [facility] CPT-4: 30270 06/07/2017 72727 EST. PATIENT, LEVEL III Diagnosis: Low back pain[ICD10: M54.5] Diagnosis: Sacroiliitis, not elsewhere classified[ICD10: M46.1] Diagnosis: Pain in left foot[ICD10: M79.672] Diagnosis: VACCIN FOR INFLUENZA[ICD10: Z23] Gloria Hess MD, [facility] CPT- 4: 19534 04/24/2017 78923 EST. PATIENT, LEVEL III Diagnosis: Acute suppurative otitis media without spontaneous rupture of ear drum, right ear[ICD10: H66.001] Diagnosis: Other allergic rhinitis[ICD10: J30.89] Gloria Hess MD, [facility] CPT-4: 96773 01/09/2017 25204 EST. PATIENT, LEVEL IV Diagnosis: Candidiasis of vulva and vagina[ICD10: B37.3] Diagnosis: Type 2 diabetes mellitus with hyperglycemia[ICD10: E11.65] Gloria Hess MD, [facility] CPT-4: 03091 10/30/2016 06670 EST. PATIENT, LEVEL III Diagnosis: Candidiasis of vulva and vagina[ICD10: B37.3] Diagnosis: Type 2 diabetes mellitus with hyperglycemia[ICD10: E11.65] Gloria Hess MD, [facility] CPT-4: 40893 10/09/2016 50682 EST. PATIENT, LEVEL IV Diagnosis: Umbilical hernia without obstruction or gangrene[ICD10: K42.9] Gloria Hess MD, [facility] CPT-4: 06986 09/12/2016 36055 EST. PATIENT, LEVEL III Diagnosis: Epigastric pain[ICD10: R10.13] Diagnosis: Candidiasis of vulva and vagina[ICD10: B37.3] Diagnosis: Type 2 diabetes mellitus with hyperglycemia[ICD10: E11.65] Gloria Hess MD, [facility] CPT-4: 65594 09/05/2016 71742 EST. PATIENT, LEVEL III Diagnosis: Acute laryngopharyngitis[ICD10: J06.0] Diagnosis: Other allergic rhinitis[ICD10: J30.89] Gloria Hess MD, [facility] CPT-4: 76349 06/16/2016 70340 EST. PATIENT, LEVEL III Diagnosis: Type 2 diabetes mellitus with hyperglycemia[ICD10: E11.65] Diagnosis: Other obesity due to excess calories[ICD10: E66.09] Gloria Hess MD, [facility] CPT-4: 07650 06/13/2016 11445 EST. PATIENT, LEVEL III Diagnosis: Type 2 diabetes mellitus with hyperglycemia[ICD10: E11.65] Diagnosis: Other obesity due to excess calories[ICD10: E66.09] Gloria Hess MD, [facility] CPT-4: 84498 05/19/2016 86910 EST. PATIENT, LEVEL III Diagnosis: Type 2 diabetes mellitus with hyperglycemia[ICD10: E11.65] Diagnosis: Other obesity due to excess calories[ICD10: E66.09] Gloria Hess MD, [facility] CPT-4: 64436 05/08/2016 11278 EST. PATIENT, LEVEL III Diagnosis: Type 2 diabetes mellitus without complications[ICD10: E11.9] Gloria Hess MD , [facility] CPT-4: 36437 05/05/2016 87537 EST. PATIENT, LEVEL III Diagnosis: Pain in right shoulder[ICD10: M25.511] Gloria Hess MD, [facility] CPT-4: 71785 04/10/2016 82779 EST. PATIENT, LEVEL III Diagnosis: Pain in right shoulder[ICD10: M25.511] Diagnosis: Other muscle spasm[ICD10: M62.838] Diagnosis: Type 2 diabetes mellitus without complications[ICD10: E11.9] Gloria Hess MD , [facility] CPT-4: 21402 04/06/2016 [address]24 EST. PATIENT, LEVEL IV Diagnosis: Acute bronchitis due to other specified organisms[ICD10: J20.8] Diagnosis: Other acute sinusitis[ICD10: J01.80] Diagnosis: Acne vulgaris[ICD10: L70.0] Diagnosis: Morbid (severe) obesity due to excess calories[ICD10: E66.01] Gloria Hess MD , [facility] CPT-4: 97714 03/08/2016 02819 EST. PATIENT, LEVEL IV Diagnosis: Other acute sinusitis[ICD10: J01.80] Diagnosis: Localized enlarged lymph nodes[ICD10: R59.0] Gloria Hess MD, [facility] CPT-4: 53800 02/28/2016 07474 EST. PATIENT, LEVEL III Diagnosis: Type 2 diabetes mellitus without complications[ICD10: E11.9] Gloria Hess MD , [facility] CPT-4: 39201 01/18/2016 (25944) PREV VISIT EST AGE 40-64 Diagnosis: Encounter for gynecological examination (general) (routine) without abnormal findings[ICD10: Z01.419] Diagnosis: Excessive and frequent menstruation with irregular cycle[ICD10: N92.1 ] Gloria Hess MD, [facility] CPT-4: 00958 12/23/2015 46700 EST. PATIENT, LEVEL III Diagnosis: Type 2 diabetes mellitus without complications[ICD10: E11.9] Gloria Hess MD , [facility] CPT-4: 50129 12/16/2015 08760 EST. PATIENT, LEVEL III Diagnosis: Type 2 diabetes mellitus without complications[ICD10: E11.9] Diagnosis: Other obesity due to excess calories[ICD10: E66.09] Gloria Hess MD, [facility] CPT-4: 27996 11/11/2015 38151 EST. PATIENT, LEVEL III Diagnosis: Type 2 diabetes mellitus without complications[ICD10: E11.9] Diagnosis: Other obesity due to excess calories[ICD10: E66.09] Gloria Hess MD, [facility] CPT-4: 86744 10/27/2015 02460 EST. PATIENT, LEVEL III Diagnosis: Type 2 diabetes mellitus without complications[ICD10: E11.9] Diagnosis: Other obesity due to excess calories[ICD10: E66.09] Diagnosis: Other insomnia[ICD10: G47.09] Gloria Hess MD, [facility] CPT-4 : 51842 10/13/2015 96347 EST. PATIENT, LEVEL IV Diagnosis: Acute recurrent maxillary sinusitis[ICD10: J01.01] Diagnosis: Allergic rhinitis due to pollen[ICD10: J30.1] Diagnosis: Other obesity due to excess calories[ICD10: E66.09] Gloria Hess MD, [facility] CPT-4: 01354 10/05/2015 65060 EST. PATIENT, LEVEL IV Diagnosis: Polycystic ovarian syndrome[ICD10: E28.2] Diagnosis: Other skin changes[ICD10: R23.8] Diagnosis: Other abnormal glucose[ICD10: R73.09] Gloria Hess MD, [facility] CPT-4: 16434 09/01/2015 67334 EST. PATIENT, LEVEL IV Diagnosis: Acute recurrent maxillary sinusitis[ICD10: J01.01] Diagnosis: Morbid (severe) obesity due to excess calories[ICD10: E66.01] Diagnosis: Essential (primary) hypertension[ICD10: I10] Diagnosis: Allergic rhinitis due to pollen[ICD10: J30.1] [facility] CPT-4: 96490 08/20/2015 (35873) OFFICE VISIT, NEW - LEVEL 4 Diagnosis: Essential (primary) hypertension[ICD10: I10] Diagnosis: Obstructive sleep apnea (adult) (pediatric)[ICD10: G47.33] Diagnosis: Other insomnia[ICD10: G47.09] Diagnosis: Snoring[ICD10: R06.83] Diagnosis: Morbid (severe) obesity due to excess calories[ICD10: E66.01] Gloria Hess MD , [facility] CPT-4: 51773 08/03/2015 Plan of Care Planned Activity Notes Codes Status Date Visit Plan: Cellulitis-right pbztli-dwsncdtc-rec bactroban ointment until healed completely-call with any concerns 06/17/2018 Patient Education: Patient Medication Summary Completed 06/17/2018 Visit Plan: Abscess/Cellulitis - The patient was instructed in appropriate wound care. The patient was instructed to use the antibiotic ointment as per RX. The patient is to call for any change in symptoms , increase in size of the lesion, increase in pain, worsening redness, warmth, discharge. 06/05/2018 Appointment: Gloria Scott WPtel: [address] [place], [place] [phone] (30 min) [facility] 06/05/2018 Patient Education: Patient Medication Summary Completed 06/05/2018 Patient Education: Diabetes Completed 06/05/2018 [facility] [place] [facility] Referral Initiated 04/19/2018 Care Plan: Referral Order SNOMED-CT : [id number] Pending 03/27/2018 Visit Plan: Esophageal Reflux - [...] allergy spray. 03/26/2018 Appointment: Gloria Scott WPtel: [facility] (15 min) Moderate 03/26/2018 Patient Education: Patient Medication Summary Completed 03/26/2018 Appointment: Gloria Scott WPtel: [facility] [place] (15 min) Moderate 03/25/2018 Visit Plan: Skin [...] and bandaids. 03/14/2018 Appointment: Gloria Scott WPtel: [address] [place] [address] (15 min) Moderate 03/14/2018 Patient Education: Patient [...] not improve 03/07/2018 Appointment: Gloria Scott WPtel: [facility] (15 min) Moderate 03/07/2018 Patient Education: Patient [...] worsen. 02/19/2018 Appointment: Gloria Scott WPtel: [phone] [facility] [place] (15 min) Moderate 02/19/2018 Patient Education: Patient [...] discharge. 01/08/2018 Appointment: [facility] Scott [facility]el[facility] [phone] [facility] [place] (30 min) Complex 01/08/2018 Patient Education: Patient [...] worsen. 09/05/2017 Appointment: [facility] Scott [facility]Ptel[facility] [phone] [facility] [place] (15 min) Moderate 09/05/2017 Patient Education: Patient [...] send RX 06/07/2017 Appointment: Gloria Scott WPtel: [address] [place], [place] [phone] (15 min) Moderate 06/07/2017 Patient Education: Patient [...] of injection. 04/24/2017 Appointment: Gloria Scott WPtel: [facility] [place] [place] (30 min) Complex 04/24/2017 Patient Education: Patient Medication Summary Completed 04/24/2017 Appointment: Gloria Scott WPtel: [address] [place], [place] [id number] (30 min) Complex 03/09/2017 Appointment: Gloria Scott WPtel: [address] [place], [place] [phone] (30 min) Complex 02/13/2017 Visit Plan: Otitis [...] allergy spray. 01/09/2017 Appointment: Gloria Scott WPtel: [address] [place], [place] [id number] (10 min) Simple 01/09/2017 Patient Education: Patient Medication Summary Completed 01/09/2017 Patient Education: Obesity Completed 01/09/2017 Visit Plan: Vaginal candidiasis - will send RX - pt is to notify clinic if symptoms do not improve, if they worsen, or with any questions or concerns. Diabetes Mellitus - Uncontrolled - Will refer to radio dispatcher - I have recommended for the patient [...] Mellitus - Uncontrolled - Will refer to radio dispatcher - I have recommended for the patient [...] control. 10/09/2016 Appointment: Gloria Scott WPtel: [phone] [facility] (30 min) Complex 10/09/2016 Patient Education: Patient Medication Summary Completed 10/09/2016 Patient Education: Obesity Completed 10/09/2016 Referral: Roni Roberts Referral Completed 09/18/2016 Care Plan: CT ABD & PELV W/CONTRAST LOINC : 98083-0 Pending 09/13/2016 Care Plan: Referral Order SNOMED-CT : [id number] Pending 09/13/2016 Visit Plan: Ongoing abdominal pain/hernia - will send RX - will refer - pt is to notify clinic if symptoms do not improve, if they worsen, or with any questions or concerns. 09/12/2016 Appointment: Gloria Scott WPtel: [phone] [facility] (30 min) Complex 09/12/2016 Patient Education: Patient Medication Summary Completed 09/12/2016 Patient Education: Obesity Completed 09/12/2016 Care Plan: Referral Order SNOMED-CT : [id number] Pending 09/12/2016 Visit Plan: Ongoing abdominal/epigastric pain [...] control. 09/05/2016 Appointment: Gloria Scott WPtel: [phone] [facility] (30 min) Complex 09/05/2016 Patient Education: Patient [...] spray. 06/16/2016 Appointment: Gloria Scott WPtel: [phone] [facility] (10 min) Simple 06/16/2016 Patient Education: Patient [...] check. 06/13/2016 Appointment: Gloria Scott WPtel: [phone] [facility] (30 min) Complex 06/13/2016 Patient Education: Patient Medication Summary Completed 06/13/2016 Patient Education: Obesity Completed 06/13/2016 Appointment: Gloria Scott WPtel: [phone] [facility] [place] (30 min) Complex 06/08/2016 Visit Plan: [...] weight check. 05/19/2016 Appointment: Tamy Lugo WPtel: [phone] [phone] [place] (30 min) Complex 05/19/2016 Patient Education: [...] weight check. 05/08/2016 Appointment: Gloria Scott WPtel: [phone] [facility] [place] (15 min) Moderate 05/08/2016 Patient Education: Patient [...] the morning. 05/05/2016 Appointment: Tamy Lugo WPtel: [phone] [phone] [place] (15 min) Moderate 05/05/2016 Patient Education: Patient Medication Summary Completed 05/05/2016 Patient Education: Obesity Completed 05/05/2016 Care Plan: Comp Metabolic Pending 05/05/2016 Appointment: Jocelyn Hess WPtel: [facility] Surgical Procedure 04/17/2016 Appointment: Injection 04/13/2016 Patient Education: Patient Medication Summary Completed 04/13/2016 Visit Plan: Right shoulder pain - will refer to PT - The pt is to use prn antiinflammatories to manage acute pain. The patient is to call the office if the pain is worsening or does not improve. 04/10/2016 Appointment: Gloria Scott [facility]Ptel: [phone] [facility] [place] [place] (30 min) Complex 04/10/2016 Patient Education: Patient [...] control. 04/06/2016 Appointment: Gloria Scott [facility]Ptel: [phone] [facility] [place] (15 min) Moderate 04/06/2016 Patient Education: Patient [...] order [place] 02/28/2016 Appointment: Gloria Scott WPtel: [phone] [facility] [place] (30 min) Complex 02/28/2016 Patient Education: Patient Medication Summary Completed 02/28/2016 Patient Education: Obesity Completed 02/28/2016 Appointment: Gloria Scott WPtel: [phone] [facility] [place] (15 min) Moderate 01/31/2016 Visit Plan: Diabetes [...] or prn. 12/23/2015 Appointment: Gloria Scott WPtel: [phone] [facility] [place] [facility] 12/23/2015 Patient Education: Patient Medication [...] allow for greater blood glucose control. 12/16/2015 Visit Plan: Diabetes Mellitus - I [...] in one month for weight check. 12/16/2015 Patient Education: Patient Medication Summary Completed [...] ADD TO BLOOD IN THE LAB. [facility] : 85623-5 Pending 08/13/2015 Visit Plan: Hypertension - uncontrolled [...] Referral: Roni Roberts Referral Completed [facility] Referral Initiated Referral: Roni Roberts Referral Initiated [...] worsen. . Diabetes Mellitus - Uncontrolled - I [...] and 5 units in the morning. . Bronchitis - acute case of bronchitis [...] if symptoms do not show improvement. . PCOS and skin changes - pt currently on Metformin, but states that it is causing some GI upset and diarrhea - will change to Invokamet , will refer to Dr. [facility]. Will have pt repeat her liver enzymes on 3/24/16. Will have pt recheck a Hgb A1C after 3 months of being on Invokamet. . Vaginal candidiasis - will send RX [...] in pain, worsening redness, warmth, discharge. . Diabetes Mellitus - Uncontrolled - per [...] is worsening or does not improve. . Esophageal Reflux - the patient has [...] spray in the nasal steroid allergy spray. Rocephin shot today keflex to start tomorrow diflucan for 14 days will send kenalog for a shot if needed will call [...] in pain, worsening redness, warmth, discharge. . Sinusitis - Pt has acute infection [...] Mellitus - Uncontrolled - Will refer to radio dispatcher - I have recommended for the patient [...] steroid allergy spray. . Diabetes Mellitus - I have recommended [...] blood glucose control. . Diabetes Mellitus - I have recommended [...] for weight check. . Diabetes Mellitus - Improved - The [...] Mellitus - Uncontrolled - Will refer to radio dispatcher - I have recommended for the patient [...] to allow for greater blood glucose control. Will check fasting labs, will send for [...] with any questions or concerns. . Cellulitis-right dtsexd-phknrwss-jnz bactroban ointment until healed completely-call with any [...]
[2018-07-15 11:00] VITALS: BP 103/61
--- OUTSIDE RECORDS SUMMARY | 2018-07-15 11:00 | XMS REPORT | CCD ---
Author Author Gloria Scott MD, [facility] Address [address] [place] [address] Phone Care Team Providers Care Technology Infusion Specialist Name Role Phone PP Unavailable CCM Unavailable Summary Purpose Interface Exchange Insurance Providers Payer name Policy type / Coverage type Covered libertarian ID Effective Begin Date Effective End Date [facility] Commercial Insurance [id number] Unknown Unknown Family history Father Diagnosis Age At Onset Hypertension Unknown Arthritis Unknown Mother Diagnosis Age At Onset Arthritis Unknown Hyperlipidemia Unknown Daughter Diagnosis Age At Onset Asthma Unknown Social History Social History Element Codes Description Effective Dates Marital status Unknown Darin 08/03/2015 Number of children Unknown 1 08/03/[address]: 5077536 Quit less than 5 years ago 08/03/2015 [...] Start Date Stop Date Status Fill Instructions Keflex 500 mg capsule RxNorm: 863738 1 Capsule(s) PO TID 201706/11/2018 Active Diflucan 150 mg tablet RxNorm: 870469 1 Tablet(s) PO daily 07/02/2018 Active mupirocin 2 % topical ointment RxNorm: 758158 1 Application TOP BID 06/05/2018 No Stop Date Active ceftriaxone 500 mg solution for injection RxNorm: 0966160 Inj 06/05/2018 06/05/2018 Inactive Protonix 40 mg tablet,delayed release RxNorm: 263778 1 Tablet(s) PO BID x 1 week then daily 03/26/2018 No Stop Date Active Phenergan with Codeine Syrup RxNorm: 5-10 ML PO QID as needed cough 03/19/2018 No Stop Date Active promethazine 25 mg tablet RxNorm: 066154 Tablet(s) TAKE ONE TABLET BY MOUTH EVERY 6 TO 8 HOURS NEEDED 03/15/2018 No Stop Date Active Singulair 10 mg tablet RxNorm: 541608 1 Tablet(s) PO daily 04/12/2018 Inactive metoprolol succinate ER 100 mg tablet,extended release 24 hr RxNorm: 609611 1 Tablet(s) PO daily 03/07/2018 04/05/2018 Inactive Zithromax Z-Rashid 250 mg tablet RxNorm: 142440 1 Tablet(s) PO UD 03/07/2018 03/07/2018 Inactive prednisone 20 mg tablet RxNorm: 208349 2 Tablet(s) PO daily 03/11/2018 Inactive albuterol sulfate 2.5 mg/3 mL (0.083 %) solution for nebulization RxNorm: 941342 3 Milliliter(s) INH Q4-6H as needed dyspnea 02/19/2018 No Stop Date Active Diflucan 150 mg tablet RxNorm: 810632 Tablet(s) TAKE ONE TABLET BY MOUTH ONCE DAILY FOR 7 DAYS THEN TAKE ONE TABLET BY MOUTH ONCE A WEEK 06/04/2018 Inactive Levaquin 500 mg tablet RxNorm: 796977 1 Tablet(s) PO daily 09/201702/25/2018 Inactive prednisone 20 mg tablet RxNorm: 204884 2 Tablet(s) PO daily 09/201702/23/2018 Inactive Kenalog 40 mg/mL suspension for injection RxNorm: 5200160 15. Milliliter(s) Inj 02/19/2018 02/19/2018 Inactive hydrocodone 7.5 mg-acetaminophen 325 mg tablet RxNorm: 173864 1 Tablet(s) PO Q4H as needed 02/05/2018 03/06/2018 Inactive clindamycin HCl 300 mg capsule RxNorm: 466483 1 Capsule(s) PO TID 01/09/2018 01/15/2018 Inactive promethazine 25 mg tablet RxNorm: 315524 Tablet(s) TAKE ONE TABLET BY MOUTH EVERY 6 TO 8 HOURS NEEDED 01/08/20182017 Inactive Diflucan 150 mg tablet RxNorm: 117467 Tablet(s) TAKE ONE TABLET BY MOUTH ONCE DAILY FOR 7 DAYS THEN TAKE ONE TABLET BY MOUTH ONCE A WEEK 02/18/2018 Inactive Bactrim DS 800 mg-160 mg tablet RxNorm: 842493 1 Tablet(s) PO BID 01/08/2018 01/17/2018 Inactive prednisone 20 mg tablet RxNorm: 587210 2 Tablet(s) PO daily 01/201811/27/2017 Inactive Zithromax Z-Rashid 250 mg tablet RxNorm: 344936 1 Tablet(s) PO UD 09/05/2017 02/11/2018 Inactive Kenalog 40 mg/mL suspension for injection RxNorm: 7792129 Milliliter(s) Inj 09/05/2017 09/05/2017 Inactive prednisone 20 mg tablet RxNorm: 565034 2 Tablet(s) PO daily 09/09/2017 Inactive ibuprofen 800 mg tablet RxNorm: 240611 1 Tablet(s) PO TID 07/2702/21/2018 Inactive metoprolol succinate ER 100 mg tablet,extended release 24 hr RxNorm: 900847 TAKE ONE TABLET BY MOUTH ONCE DAILY 06/20/2017 No Stop Date Active alprazolam 0.5 mg tablet RxNorm: 878682 1 Tablet(s) PO Q8 as needed 06/20/2017 07/09/2017 Inactive Zithromax Z-Rashid 250 mg tablet RxNorm: 835448 1 Tablet(s) PO UD 06/15/2017 07/25/2017 Inactive Xopenex HFA 45 mcg/actuation aerosol inhaler RxNorm: 391347 INHALE ONE PUFF INTO LUNGS NEEDED 06/13/2017 07/14/2017 Inactive Xopenex 1.25 mg/3 mL solution for nebulization RxNorm: 772834 Milliliter(s) USE ONE VIAL IN NEBULIZER THREE TIMES DAILY 06/08/2017 No Stop Date Active Flovent HFA 44 mcg/actuation aerosol inhaler RxNorm: 968193 2 Puff(s) INH BID 06/08/2017 No Stop Date Active potassium chloride ER 10 mEq tablet,extended release RxNorm: 675148 1 Tablet(s) PO daily 06/08/2017 06/10/2017 Inactive Lasix 20 mg tablet RxNorm: 072583 1 Tablet(s) PO daily 201606/10/2017 Inactive Xopenex HFA 45 mcg/actuation aerosol inhaler RxNorm: 883909 INHALE ONE PUFF INTO LUNGS NEEDED 06/08/2017 06/12/2017 Inactive triamcinolone acetonide 0.025 % topical cream RxNorm: 9686144 1 Application TOP BID 06/07/2017 No Stop Date Active ibuprofen 800 mg tablet RxNorm: 143568 1 Tablet(s) PO TID 06/0707/06/2017 Inactive cyclobenzaprine 5 mg tablet RxNorm: 446573 1/2 Tablet(s) PO TID as needed muscle spasms 05/28/2017 06/01/2017 Inactive Diflucan 150 mg tablet RxNorm: 065437 TAKE ONE TABLET BY MOUTH ONCE DAILY FOR 7 DAYS THEN TAKE ONE TABLET BY MOUTH ONCE A WEEK 05/28/2017 01/07/2018 Inactive bumetanide 1 mg tablet RxNorm: 338153 TAKE ONE TABLET BY MOUTH TWICE DAILY 05/25/2017 No Stop Date Active meloxicam 7.5 mg tablet RxNorm: 139355 1 Tablet(s) PO daily as needed 05/25/2017 07/23/2017 Inactive Xopenex 1.25 mg/3 mL solution for nebulization RxNorm: 459087 USE ONE VIAL IN NEBULIZER THREE TIMES DAILY 05/25/2017 Inactive Protonix 40 mg tablet,delayed release RxNorm: 648975 1 Tablet(s) PO daily 05/08/2017 11/03/2017 Inactive Protonix 40 mg tablet,delayed release RxNorm: 749747 1 Tablet(s) PO daily 05/04/2017 05/03/2017 Inactive Protonix 40 mg tablet,delayed release RxNorm: 427586 1 Tablet(s) PO daily 05/04/2017 05/07/2017 Inactive meloxicam 7.5 mg tablet RxNorm: 420511 1 Tablet(s) PO daily as needed 04/25/2017 04/24/2017 Inactive meloxicam 7.5 mg tablet RxNorm: 438779 1 Tablet(s) PO daily as needed 04/25/2017 05/04/2017 Inactive promethazine 25 mg tablet RxNorm: 270525 TAKE ONE TABLET BY MOUTH EVERY 6 TO 8 HOURS NEEDED 04/25/2017 01/07/2018 Inactive Kenalog 40 mg/mL suspension for injection RxNorm: 4517862 1 Milliliter(s) Inj 04/24/2017 04/24/2017 Inactive cyclobenzaprine 5 mg tablet RxNorm: 543112 1/2 Tablet(s) PO TID as needed muscle spasms 04/24/2017 04/28/2017 Inactive Xopenex HFA 45 mcg/actuation aerosol inhaler RxNorm: 492443 INHALE ONE PUFF INTO LUNGS NEEDED 03/30/2017 04/14/2017 Inactive Humalog KwikPen 200 unit/mL (3 mL) subcutaneous RxNorm: 4638223 INJECT 35 UNITS SUBCUTANEOUSLY BEFORE MEAL(S) 03/30/2017 06/05/2017 Inactive promethazine 25 mg tablet RxNorm: 041009 Tablet(s) TAKE ONE TABLET BY MOUTH EVERY 6 TO 8 HOURS NEEDED 03/12/20172016 Inactive cyclobenzaprine 10 mg tablet RxNorm: 969996 TAKE ONE TABLET BY MOUTH ONCE DAILY NEEDED 03/06/2017 03/15/2017 Inactive lidocaine 5 % topical patch RxNorm: 8081857 USE ONE PATCH TOPICALLY DAILY. 12 HOURS ON AND THEN 12 HOURS OFF. 03/06/2017 03/15/2017 Inactive Humalog KwikPen 200 unit/mL (3 mL) subcutaneous RxNorm: 6061118 INJECT 35 UNITS SUBCUTANEOUSLY BEFORE MEAL(S) 02/20/2017 03/25/2017 Inactive promethazine 25 mg tablet RxNorm: 549341 Tablet(s) TAKE ONE TABLET BY MOUTH EVERY 6 TO 8 HOURS NEEDED 02/20/20172016 Inactive Xopenex HFA 45 mcg/actuation aerosol inhaler RxNorm: 906524 INHALE ONE PUFF INTO LUNGS NEEDED 02/20/2017 03/07/2017 Inactive bumetanide 1 mg tablet RxNorm: 708082 TAKE ONE TABLET BY MOUTH TWICE DAILY 02/15/2017 05/15/2017 Inactive bumetanide 1 mg tablet RxNorm: 821072 TAKE ONE TABLET BY MOUTH TWICE DAILY 01/15/2017 02/13/2017 Inactive metoprolol succinate ER 100 mg tablet,extended release 24 hr RxNorm: 588574 TAKE ONE TABLET BY MOUTH ONCE DAILY 01/11/2017 06/19/2017 Inactive Zithromax Z-Rashid 250 mg tablet RxNorm: 642383 1 Tablet(s) PO UD 01/09/2017 03/13/2017 Inactive meclizine 25 mg tablet RxNorm: 961136 1 Tablet(s) PO TID as needed 01/09/2017 01/18/2017 Inactive Kenalog 40 mg/mL suspension for injection RxNorm: 1852823 Milliliter(s) Inj 01/09/2017 01/09/2017 Inactive promethazine 25 mg tablet RxNorm: 703894 Tablet(s) TAKE ONE TABLET BY MOUTH EVERY 6 TO 8 HOURS NEEDED 12/29/20162016 Inactive Voltaren 1 % topical gel RxNorm: 353479 APPLY TOPICALLY TO AFFECTED AREA TWICE DAILY 12/25/2016 01/13/2017 Inactive cyclobenzaprine 10 mg tablet RxNorm: 195457 TAKE ONE TABLET BY MOUTH NEEDED 12/22/2016 12/31/2016 Inactive lidocaine 5 % topical patch RxNorm: 7335041 USE ONE PATCH TOPICALLY DAILY. 12 HOURS ON AND THEN 12 HOURS OFF. 12/22/2016 12/31/2016 Inactive hydrocodone 7.5 mg-acetaminophen 325 mg tablet RxNorm: 297160 1 Tablet(s) PO Q4H as needed 12/22/2016 01/20/2017 Inactive bumetanide 1 mg tablet RxNorm: 414387 TAKE ONE TABLET BY MOUTH TWICE DAILY 12/17/2016 01/14/2017 Inactive promethazine 25 mg tablet RxNorm: 222120 Tablet(s) TAKE ONE TABLET BY MOUTH EVERY 6 TO 8 HOURS NEEDED 11/16/20162016 Inactive spironolactone 50 mg tablet RxNorm: 079292 TAKE ONE TABLET BY MOUTH TWICE DAILY 11/15/2016 05/13/2017 Inactive Basaglar KwikPen 100 unit/mL (3 mL) subcutaneous RxNorm: 9892257 Unit(s) INJECT 35 UNITS IN THE MORNING AND 50 UNITS IN THE EVENING SUBCUTANEOUSLY 11/15/2016 03/14/2017 Inactive cyclobenzaprine 10 mg tablet RxNorm: 315557 TAKE ONE TABLET BY MOUTH NEEDED 11/15/2016 12/04/2016 Inactive lidocaine 5 % topical patch RxNorm: 9246106 1 Patch TOP daily . 12 HOURS ON, 12 HOURS OFF 11/15/2016 12/04/2016 Inactive lidocaine 4 % topical patch RxNorm: 9579421 1 Patch TOP on for 12 hours and off for 12 hours 11/14/2016 11/14/2016 Inactive promethazine 25 mg tablet RxNorm: 256878 TAKE ONE TABLET BY MOUTH EVERY 6 TO 8 HOURS NEEDED 11/14/2016 11/15/2016 Inactive Basaglar KwikPen 100 unit/mL (3 mL) subcutaneous RxNorm: 2858521 INJECT 35 UNITS IN THE MORNING AND 50 UNITS IN THE EVENING SUBCUTANEOUSLY 11/14/2016 Inactive cyclobenzaprine 10 mg tablet RxNorm: 007396 TAKE ONE TABLET BY MOUTH NEEDED 11/14/2016 11/14/2016 Inactive spironolactone 50 mg tablet RxNorm: 570197 TAKE ONE TABLET BY MOUTH TWICE DAILY 11/14/2016 11/14/2016 Inactive Diflucan 150 mg tablet RxNorm: 191566 1 Tablet(s) PO as needed prophylactic after sexual intercourse 10/30/2016 No Stop Date Active hydrocodone 7.5 mg-acetaminophen 325 mg tablet RxNorm: 641075 1 Tablet(s) PO Q4H as needed 10/30/2016 11/28/2016 Inactive clotrimazole 100 mg vaginal tablet RxNorm: 531244 1 Tablet(s) VAG QW 10/30/2016 11/28/2016 Inactive Humalog KwikPen 200 unit/mL (3 mL) subcutaneous RxNorm: 7831679 35 Unit(s) SQ AC 10/30/2016 02/19/2017 Inactive QS 30 day supply Bydureon 2 mg/0.65 mL subcutaneous pen injector RxNorm: 2424258 2 Milligram(s) SQ QW 10/30/2016 11/28/2016 Inactive Basaglar KwikPen 100 unit/mL (3 mL) subcutaneous RxNorm: 1909109 Unit(s) SQ 35 units in the morning and 50 units in the evening 10/30/2016 11/13/2016 Inactive QS 30 day supply cyclobenzaprine 10 mg tablet RxNorm: 240656 TAKE ONE TABLET BY MOUTH NEEDED 10/27/2016 11/05/2016 Inactive Diflucan 150 mg tablet RxNorm: 292095 1 Tablet(s) PO daily x 7 days then once a week 10/27/2016 10/29/2016 Inactive promethazine 25 mg tablet RxNorm: 384210 TAKE ONE TABLET BY MOUTH EVERY 6 TO 8 HOURS NEEDED 10/27/2016 11/10/2016 Inactive Diflucan 150 mg tablet RxNorm: 186893 1 Tablet(s) PO daily x 7 days then once a week 10/09/2016 10/15/2016 Inactive Diflucan 150 mg tablet RxNorm: 268470 1 Tablet(s) PO daily 10/201609/26/2016 Inactive Cipro 500 mg tablet RxNorm: 347447 1 Tablet(s) PO BID 201609/21/2016 Inactive Flagyl 500 mg tablet RxNorm: 796162 1 Tablet(s) PO TID 201609/21/2016 Inactive Diflucan 150 mg tablet RxNorm: 319792 1 Tablet(s) PO daily 09/12/2016 Inactive hydrocodone 7.5 mg-acetaminophen 325 mg tablet RxNorm: 275969 1 Tablet(s) PO Q4H as needed 07/12/2016 08/10/2016 Inactive Xopenex 1.25 mg/3 mL solution for nebulization RxNorm: 026925 3 Milliliter(s) INH TID 06/16/2016 05/24/2017 Inactive cefdinir 300 mg capsule RxNorm: 515602 1 Capsule(s) PO BID 06/25/2016 Inactive Mobic 7.5 mg tablet RxNorm: 063801 1 Tablet(s) PO daily 201506/25/2016 Inactive Levaquin 500 mg tablet RxNorm: 860861 1 Tablet(s) PO daily 06/22/2016 Inactive cyclobenzaprine 10 mg tablet RxNorm: 637517 1 Tablet(s) PO PRN as needed 06/14/2016 06/23/2016 Inactive promethazine 25 mg tablet RxNorm: 757913 TAKE ONE TABLET BY MOUTH EVERY 6 TO 8 HOURS NEEDED 06/14/2016 06/28/2016 Inactive Xopenex HFA 45 mcg/actuation aerosol inhaler RxNorm: 026874 1 Puff(s) INH PRN 06/14/2016 07/15/2016 Inactive pen needle, diabetic 32 gauge x 5/16" RxNorm: 1 use Miscellaneous AC & HS 06/13/2016 No Stop Date Active QS 30 day supply Humalog KwikPen 200 unit/mL (3 mL) subcutaneous RxNorm: 4761374 10 Unit(s) SQ AC 06/13/2016 10/29/2016 Inactive QS 30 day supply Basaglar KwikPen 100 unit/mL (3 mL) subcutaneous RxNorm: 7034553 22 units in the morning and 35 in the evening. Unit(s) SQ 06/13/2016 10/29/2016 Inactive QS 30 day supply Tivorbex 20 mg capsule RxNorm: 7103044 1 Capsule(s) PO TID as needed 06/13/2016 06/13/2016 Inactive metoprolol succinate ER 100 mg tablet,extended release 24 hr RxNorm: 306386 TAKE ONE TABLET BY MOUTH ONCE DAILY 06/13/2016 10/10/2016 Inactive hydrocodone 7.5 mg-acetaminophen 325 mg tablet RxNorm: 352329 1 Tablet(s) PO Q4H as needed 06/13/2016 07/11/2016 Inactive Voltaren 1 % topical gel RxNorm: 792810 APPLY TOPICALLY TO AFFECTED AREA TWICE DAILY 05/30/2016 07/08/2016 Inactive alprazolam 0.5 mg tablet RxNorm: 821223 1 Tablet(s) PO Q8 as needed 05/19/2016 No Stop Date Active cyclobenzaprine 10 mg tablet RxNorm: 840519 1 Tablet(s) PO PRN as needed 05/19/2016 05/28/2016 Inactive bumetanide 1 mg tablet RxNorm: 494134 TAKE ONE TABLET BY MOUTH TWICE DAILY 05/19/2016 06/17/2016 Inactive Sprintec (28) 0.25 mg-35 mcg tablet RxNorm: 603391 1 Tablet(s) PO UD 05/08/2016 No Stop Date Active Lantus Solostar 100 unit/mL (3 mL) subcutaneous insulin pen RxNorm: 564492 Unit( s) SQ UD 15units qam 30 units qhs 05/08/2016 No Stop Date Active Humalog KwikPen 200 unit/mL (3 mL) subcutaneous RxNorm: 7055809 10 Unit(s) SQ AC 05/08/2016 06/12/2016 Inactive bumetanide 1 mg tablet RxNorm: 275165 TAKE ONE TABLET BY MOUTH TWICE DAILY 04/28/2016 05/18/2016 Inactive Voltaren 1 % topical gel RxNorm: 349342 1 Application TOP BID 04/28/2016 05/07/2016 Inactive cyclobenzaprine 10 mg tablet RxNorm: 097864 1 Tablet(s) PO PRN as needed 04/28/2016 05/07/2016 Inactive hydrocodone 7.5 mg-acetaminophen 325 mg tablet RxNorm: 101459 1 Tablet(s) PO Q4H as needed 04/18/2016 05/16/2016 Inactive Lantus Solostar 100 unit/mL (3 mL) subcutaneous insulin pen RxNorm: 851740 Unit( s) SQ UD 10 units QHS x5 days, if sugars are over 200 increase to 15 units x 5 days, if sugars over 200 increase to 20 units. 04/14/2016 05/07/2016 Inactive lidocaine 4 % topical patch RxNorm: 0048411 1 Patch TOP on for 12 hours and off for 12 hours 04/13/2016 11/13/2016 Inactive Voltaren 1 % topical gel RxNorm: 161415 1 Application TOP BID 04/10/2016 04/27/2016 Inactive metformin ER 500 mg 24 hr tablet,extended release RxNorm: 652890 1 Tablet(s) PO daily 04/06/2016 05/05/2016 Inactive Kenalog 40 mg/mL suspension for injection RxNorm: 1602506 1 Milliliter(s) Inj 04/06/2016 04/06/2016 Inactive cyclobenzaprine 10 mg tablet RxNorm: 604954 1 Tablet(s) PO PRN as needed 04/06/2016 04/27/2016 Inactive WelChol 3.75 gram oral powder packet RxNorm: 697761 1 packet PO daily 04/06/2016 07/04/2016 Inactive alprazolam 0.5 mg tablet RxNorm: 375720 1 Tablet(s) PO Q8 as needed 03/30/2016 06/19/2017 Inactive Levaquin 500 mg tablet RxNorm: 187170 1 Tablet(s) PO daily 04/05/2016 Inactive metoprolol succinate ER 100 mg tablet,extended release 24 hr RxNorm: 114989 TAKE ONE TABLET BY MOUTH ONCE DAILY 03/16/2016 06/12/2016 Inactive Levaquin 500 mg tablet RxNorm: 913350 1 Tablet(s) PO daily 03/14/2016 Inactive prednisone 20 mg tablet RxNorm: 831957 2 Tablet(s) PO daily 03/12/2016 Inactive Xopenex HFA 45 mcg/actuation aerosol inhaler RxNorm: 567552 1 Puff(s) INH PRN 02/28/2016 06/13/2016 Inactive Phenergan with Codeine Syrup RxNorm: 5-10 ML PO QID as needed cough 02/28/2016 03/18/2018 Inactive Kenalog 40 mg/mL suspension for injection RxNorm: 3993042 1 Milliliter(s) Inj 02/28/2016 02/28/2016 Inactive Zithromax Z-Rashid 250 mg tablet RxNorm: 248004 1 Tablet(s) PO UD 02/28/2016 03/27/2016 Inactive alprazolam 0.5 mg tablet RxNorm: 907772 1 Tablet(s) PO Q8 as needed 02/24/2016 06/19/2017 Inactive glipizide 5 mg tablet RxNorm: 991073 1 Tablet(s) PO daily 201505/16/2016 Inactive Actos 15 mg tablet RxNorm: 132042 1 Tablet(s) PO daily 201502/16/2016 Inactive gabapentin 100 mg capsule RxNorm: 106143 1 Capsule(s) PO QHS 03/12/2016 Inactive gabapentin 100 mg capsule RxNorm: 574393 1 Capsule(s) PO QHS 01/12/2016 Inactive Bydureon 2 mg/0.65 mL subcutaneous pen injector RxNorm: 1322763 1 Milliliter(s) SQ QW 01/12/2016 01/11/2016 Inactive Bydureon 2 mg/0.65 mL subcutaneous pen injector RxNorm: 1077705 2/0.65ml Milligram (s) SQ QW 01/12/2016 05/16/2016 Inactive Bydureon 2 mg/0.65 mL subcutaneous pen injector RxNorm: 4274045 1 Milliliter(s) SQ QW 01/12/2016 01/11/2016 Inactive bumetanide 1 mg tablet RxNorm: 659586 TAKE ONE TABLET BY MOUTH TWICE DAILY 01/10/2016 04/08/2016 Inactive promethazine 25 mg tablet RxNorm: 228465 Tablet(s) Tablet(s) 1 Tablet(s) PO Q6-8H as needed 12/16/2015 04/13/2016 Inactive promethazine 25 mg tablet RxNorm: 199614 Tablet(s) 1 Tablet(s) PO Q6-8H as needed 12/10/2015 12/15/2015 Inactive Trulicity 0.75 mg/0.5 mL subcutaneous pen injector RxNorm: 4425058 INJECT ONE- HALF ML SUBCUTANEOUSLY ONCE A WEEK 12/10/2015 01/11/2016 Inactive glipizide 5 mg tablet RxNorm: 731342 1 Tablet(s) PO daily 201501/17/2016 Inactive bumetanide 1 mg tablet RxNorm: 429817 TAKE ONE TABLET BY MOUTH TWICE DAILY 12/10/2015 01/08/2016 Inactive promethazine 25 mg tablet RxNorm: 284812 Tablet(s) 1 Tablet(s) PO Q6-8H as needed 11/18/2015 12/09/2015 Inactive promethazine 25 mg tablet RxNorm: 528527 1 Tablet(s) PO Q6-8H as needed 11/16/2015 11/17/2015 Inactive glipizide 5 mg tablet RxNorm: 068988 1/2 Tablet(s) PO daily 12/15/2015 Inactive promethazine 25 mg tablet RxNorm: 284066 Tablet(s) 1 Tablet(s) PO Q6-8H as needed 11/11/2015 12/10/2015 Inactive metoprolol tartrate 50 mg tablet RxNorm: 208729 1 Tablet(s) PO BID 11/11/2015 02/08/2016 Inactive Trulicity 0.75 mg/0.5 mL subcutaneous pen injector RxNorm: 6904967 .5 Milliliter(s ) SQ QW 11/11/2015 01/11/2016 Inactive promethazine 25 mg tablet RxNorm: 632423 1 Tablet(s) PO Q6-8H as needed 10/28/2015 11/10/2015 Inactive nystatin 100,000 unit/gram topical cream RxNorm: 010019 1 Gram(s) TOP BID 10/27/2015 No Stop Date Active alprazolam 0.5 mg tablet RxNorm: 246636 1 Tablet(s) PO Q8 as needed 10/27/2015 03/29/2016 Inactive hydrocodone 7.5 mg-acetaminophen 325 mg tablet RxNorm: 083081 1 Tablet(s) PO Q4H as needed 10/27/2015 11/25/2015 Inactive Trulicity 0.75 mg/0.5 mL subcutaneous pen injector RxNorm: 8338427 .5 Milliliter(s ) SQ QW 10/27/2015 11/10/2015 Inactive glipizide 5 mg tablet RxNorm: 430905 1 Tablet(s) PO daily 201511/25/2015 Inactive hydrocodone 7.5 mg-acetaminophen 325 mg tablet RxNorm: 696512 1 Tablet(s) PO Q4H as needed 10/26/2015 10/26/2015 Inactive alprazolam 0.5 mg tablet RxNorm: 673766 1 Tablet(s) PO PRN as needed 10/26/2015 10/26/2015 Inactive promethazine 25 mg tablet RxNorm: 439739 1 Tablet(s) PO Q6-8H as needed 10/26/2015 11/15/2015 Inactive glipizide 5 mg tablet RxNorm: 540820 1/2 Tablet(s) PO daily 10/26/2015 Inactive cefdinir 300 mg capsule RxNorm: 762652 1 Capsule(s) PO BID 10/14/2015 Inactive prednisone 20 mg tablet RxNorm: 745809 2 Tablet(s) PO daily 10/09/2015 Inactive Diflucan 150 mg tablet RxNorm: 100186 1 Tablet(s) PO daily 10/11/2015 Inactive Invokamet 50 mg-500 mg tablet RxNorm: 5983868 1 Tablet(s) PO daily 10/05/2015 11/03/2015 Inactive alprazolam 0.5 mg tablet RxNorm: 653492 1 Tablet(s) PO PRN as needed 10/01/2015 02/23/2016 Inactive promethazine 25 mg tablet RxNorm: 820389 1 Tablet(s) PO Q6-8H as needed 09/30/2015 10/25/2015 Inactive bumetanide 1 mg tablet RxNorm: 918088 TAKE ONE TABLET BY MOUTH TWICE DAILY 09/30/2015 10/29/2015 Inactive bumetanide 1 mg tablet RxNorm: 450254 TAKE ONE TABLET BY MOUTH TWICE DAILY 09/20/2015 12/18/2015 Inactive bumetanide 1 mg tablet RxNorm: 180344 1 Tablet(s) PO BID 201510/19/2015 Inactive metoprolol succinate ER 100 mg tablet,extended release 24 hr RxNorm: 224271 1 Tablet(s) PO daily 09/16/2015 03/13/2016 Inactive spironolactone 50 mg tablet RxNorm: 001327 1 Tablet(s) PO BID 09/16/2015 03/13/2016 Inactive alprazolam 0.5 mg tablet RxNorm: 887407 1 Tablet(s) PO PRN as needed 09/16/2015 10/25/2015 Inactive hydrocodone 7.5 mg-acetaminophen 325 mg tablet RxNorm: 021579 1 Tablet(s) PO Q4H as needed 09/16/2015 10/25/2015 Inactive Invokamet 50 mg-1,000 mg tablet RxNorm: 5076826 1 Tablet(s) PO daily 09/06/2015 09/05/2015 Inactive Invokamet 50 mg-1,000 mg tablet RxNorm: 5036589 1 Tablet(s) PO daily 09/06/2015 12/04/2015 Inactive promethazine 25 mg tablet RxNorm: 002716 TAKE ONE TABLET BY MOUTH EVERY 6 TO 8 HOURS NEEDED 09/01/2015 09/16/2015 Inactive promethazine 25 mg tablet RxNorm: 851452 1 Tablet(s) PO Q6-8H as needed 08/27/2015 09/25/2015 Inactive metoprolol succinate ER 100 mg tablet,extended release 24 hr RxNorm: 749261 1 Tablet(s) PO daily 08/20/2015 09/15/2015 Inactive bumetanide 1 mg tablet RxNorm: 807727 1 Tablet(s) PO BID 201509/18/2015 Inactive Bumex 1 mg tablet RxNorm: 573614 1 Tablet(s) PO BID 201511/15/2015 Inactive Kenalog 40 mg/mL suspension for injection RxNorm: 9433219 Milliliter(s) Inj 08/20/2015 08/20/2015 Inactive bumetanide 1 mg tablet RxNorm: 348344 1 Tablet(s) PO BID 201508/19/2015 Inactive Levaquin 500 mg tablet RxNorm: 742792 1 Tablet(s) PO daily 09/201508/26/2015 Inactive promethazine 25 mg tablet RxNorm: 948923 1 Tablet(s) PO Q6-8H as needed 08/06/2015 08/26/2015 Inactive metformin 500 mg tablet RxNorm: 891020 Tablet(s) PO 500mg in the morning and 1000mg at night No Start Date 09/16/2015 Inactive Lantus Solostar 100 unit/mL (3 mL) subcutaneous insulin pen RxNorm: 819159 Unit( s) SQ UD 10 units QHS x 5 days, if blood sugars are above 200 increase to 15 units x 5 days, if still 200 increase to 20 units. No Start Date 04/13/2016 Inactive alprazolam 0.5 mg tablet RxNorm: 721034 1 Tablet(s) PO PRN as needed No Start Date 09/15/2015 Inactive cyclobenzaprine 10 mg tablet RxNorm: 475674 1 Tablet(s) PO PRN as needed No Start Date 04/05/2016 Inactive lidocaine 4 % topical patch RxNorm: 3089887 1 Patch TOP on for 12 hours and off for 12 hours No Start Date 04/12/2016 Inactive metoprolol tartrate 50 mg tablet RxNorm: 466067 1 Tablet(s) PO BID No Start Date 11/10/2015 Inactive spironolactone 50 mg tablet RxNorm: 311217 1 Tablet(s) PO BID No Start Date 09/15/2015 Inactive hydrocodone 7.5 mg-acetaminophen 325 mg tablet RxNorm: 399586 1 Tablet(s) PO Q4H as needed No Start Date 09/15/2015 Inactive promethazine 25 mg tablet RxNorm: 574205 1 Tablet(s) PO PRN as needed No Start Date 08/05/2015 Inactive Medication Administered Medication Codes Instructions Start Date Status ceftriaxone 500 mg solution for injection RxNorm: 8173319 06/05/2018 No longer Active Kenalog 40 mg/mL suspension for injection RxNorm: 1600980 15.Milliliter 02/19/2018 No longer Active Kenalog 40 mg/mL suspension for injection RxNorm: 7860496 Milliliter 09/05/2017 No longer Active Kenalog 40 mg/mL suspension for injection RxNorm: 5506943 1Milliliter 04/24/2017 No longer Active Kenalog 40 mg/mL suspension for injection RxNorm: 6261045 Milliliter 01/09/2017 No longer Active Kenalog 40 mg/mL suspension for injection RxNorm: 2772447 1Milliliter 04/06/2016 No longer Active Kenalog 40 mg/mL suspension for injection RxNorm: 8249327 1Milliliter 02/28/2016 No longer Active Kenalog 40 mg/mL suspension for injection RxNorm: 8744464 Milliliter 08/20/2015 No longer Active Immunizations Vaccine Codes Date Status Influenza CVX: 141 03/14/2018 completed Influenza CVX: 141 04/24/2017 completed Pneumococcal (Adult) CVX: 33 04/13/2016 completed Influenza CVX: 141 03/30/2016 completed Assessments Condition Codes Effective Dates Cellulitis of right axilla ICD-10: L03.111 ICD-9: 682.3 06/05/2018 Type 2 diabetes mellitus with hyperglycemia ICD-10: [...] For Visit Effective Dates Notes skin lesion 06/05/2018 chest congestion 03/26/2018 cough [...] Code Item Item Code Result Date %Hba1C Xpa574 % HbA1c 91630-5 8.4 % 06/06/2018 %Hba1C Gmy718 Gluc Ave 194 mg/dL 06/06/2018 Lipid Ord30 CHOL 233 mg/dL 03/14/2018 Lipid Ord30 HDL 38.0 mg/dl 03/14/2018 Lipid Ord30 TRIG 143 mg/dL 03/14/2018 Lipid Ord30 LDL 166 mg/dL 03/14/2018 Lipid Ord30 C/HDL 6.1 Ratio 03/14/2018 %Hba1C Fei133 % HbA1c 16096-1 9.8 % 03/14/2018 %Hba1C Izq589 Gluc Ave 235 mg/dL 03/14/2018 Tsh Ord6 TSH (3rd IS) 1.09 uIU/mL 03/14/2018 Comp Metabolic Qmm633 NA 137 mEq/L 03/14/2018 Comp Metabolic Sjd385 K 4.6 mEq/L 03/14/2018 Comp Metabolic Wge600 CL 100 mEq/L 03/14/2018 Comp Metabolic Dgy989 CO2 27.0 mEq/L 03/14/2018 Comp Metabolic Qry074 ANION GAP 15 03/14/2018 Comp Metabolic Qdf800 GLUCOSE 144 mg/dL 03/14/2018 Comp Metabolic Zle335 Creat 0.5 mg/dL 03/14/2018 Comp Metabolic Nkk699 eGFR 138 ml/min/1.73m2 03/14/2018 Comp Metabolic Lat299 BUN 9 mg/dL 03/14/2018 Comp Metabolic Jvl906 B/C Ratio 17.6 Ratio 03/14/2018 Comp Metabolic Mbg221 CALCIUM 10.0 mg/dL 03/14/2018 Comp Metabolic Aek204 ALK PHOS 102 U/L 03/14/2018 Comp Metabolic Tit876 AST(SGOT) 31 U/L 03/14/2018 Comp Metabolic Tcg990 ALT(SGPT) 41 U/L 03/14/2018 Comp Metabolic Uaw627 BILI T 0.5 mg/dL 03/14/2018 Comp Metabolic Wmf841 ALBUMIN 4.3 g/dL 03/14/2018 Comp Metabolic Bqh257 TPRO 6.8 g/dL 03/14/2018 Comp Metabolic Tcd273 GLOB 2.5 g/dL 03/14/2018 Comp Metabolic Vmi140 A/G Ratio 1.8 Ratio 03/14/2018 Comp Metabolic Dyb298 Osmo 275 mOsmo 03/14/2018 Cbc With Differential [...] 90.5 fl 03/14/2018 Cbc With Differential Ord2 [place]% 5.6 % 03/14/2018 Cbc With Differential Ord2 [...] 4.31 K/ul 03/14/2018 Cbc With Differential Ord2 [place] ABS# 0.9 K/ul 03/14/2018 Cbc With Differential Ord2 Eos ABS# 0.2 K/ul 03/14/2018 Cbc With Differential Ord2 Baso ABS# 0.1 K/ul 03/14/2018 %Hba1C Hhp054 % HbA1c 92118-4 8.8 % 06/13/2017 %Hba1C Flh862 Gluc Ave 206 mg/dL 06/13/2017 Tsh Ord6 [...] 30.2 pg 06/13/2017 Cbc With Differential Ord2 [place]% 4.9 % 06/13/2017 Cbc With Differential Ord2 [...] 3.21 K/ul 06/13/2017 Cbc With Differential Ord2 [place] ABS# 0.7 K/ul 06/13/2017 Cbc With Differential Ord2 Eos ABS# 0.2 K/ul 06/13/2017 Cbc With Differential Ord2 Baso ABS# 0.1 K/ul 06/13/2017 Lipid Ord30 CHOL 219 mg/dL 06/13/2017 Lipid Ord30 HDL 40.0 mg/dl 06/13/2017 Lipid Ord30 TRIG 200 mg/dL 06/13/2017 Lipid Ord30 LDL 139 mg/dL 06/13/2017 Lipid Ord30 C/HDL 5.5 Ratio 06/13/2017 Comp Metabolic Efa439 NA 139 mEq/L 06/13/2017 Comp Metabolic Rkw975 K 4.4 mEq/L 06/13/2017 Comp Metabolic Vis481 CL 100 mEq/L 06/13/2017 Comp Metabolic Zrj199 CO2 29.0 mEq/L 06/13/2017 Comp Metabolic Djg132 ANION GAP 14 06/13/2017 Comp Metabolic Baw620 GLUCOSE 257 mg/dL 06/13/2017 Comp Metabolic Bma597 Creat 0.5 mg/dL 06/13/2017 Comp Metabolic Ank673 eGFR 145 ml/min/1.73m2 06/13/2017 Comp Metabolic Lxu923 BUN 13 mg/dL 06/13/2017 Comp Metabolic Uhz788 B/C Ratio 26.5 Ratio 06/13/2017 Comp Metabolic Ohj610 CALCIUM 9.7 mg/dL 06/13/2017 Comp Metabolic Vzg067 ALK PHOS 98 U/L 06/13/2017 Comp Metabolic Ouv537 AST(SGOT) 30 U/L 06/13/2017 Comp Metabolic Czw750 ALT(SGPT) 43 U/L 06/13/2017 Comp Metabolic Fnv584 BILI T 0.5 mg/dL 06/13/2017 Comp Metabolic Tyg027 ALBUMIN 4.0 g/dL 06/13/2017 Comp Metabolic Hjw796 TPRO 6.4 g/dL 06/13/2017 Comp Metabolic Zyw249 GLOB 2.4 g/dL 06/13/2017 Comp Metabolic Hsy693 A/G Ratio 1.7 Ratio 06/13/2017 Comp Metabolic Tri754 Osmo 286 mOsmo 06/13/2017 %Hba1C Uvs799 % HbA1c 62350-3 11.1 % 2016 %Hba1C Inz510 Gluc Ave 272 mg/dL 2016 C-Reactive Protein Qnt Crqnt CRP 4.7 mg/dl 2016 Comp Metabolic Sai557 NA 136 mEq/L 2016 Comp Metabolic Bhb305 K 4.1 mEq/L 2016 Comp Metabolic Lqe191 CL 96 mEq/L 2016 Comp Metabolic Abh258 CO2 29.0 mEq/L 2016 Comp Metabolic Pkf798 ANION GAP 15 2016 Comp Metabolic Hic921 GLUCOSE 291 mg/dL 2016 Comp Metabolic Urh012 Creat 0.4 mg/dL 2016 Comp Metabolic Gcx008 eGFR 165 ml/min/1.73m2 2016 Comp Metabolic Iql082 BUN 11 mg/dL 2016 Comp Metabolic Gnl934 B/C Ratio 25.0 Ratio 2016 Comp Metabolic Pzr365 CALCIUM 9.4 mg/dL 2016 Comp Metabolic Cws751 ALK PHOS 111 U/L 2016 Comp Metabolic Ora393 AST(SGOT) 46 U/L 2016 Comp Metabolic Rwa250 ALT(SGPT) 60 U/L 2016 Comp Metabolic Tub651 BILI T 0.4 mg/dL 2016 Comp Metabolic Wgo954 ALBUMIN 4.0 g/dL 2016 Comp Metabolic Tuv108 TPRO 6.5 g/dL 2016 Comp Metabolic Tum826 GLOB 2.6 g/dL 2016 Comp Metabolic Olt109 A/G Ratio 1.5 Ratio 2016 Comp Metabolic Jxc977 Osmo 282 mOsmo 2016 Cbc With Differential [...] 30.5 pg 2016 Cbc With Differential Ord2 [place]% 4.7 % 2016 Cbc With Differential Ord2 [...] 3.53 K/ul 2016 Cbc With Differential Ord2 [place] ABS# 0.7 K/ul 2016 Cbc With Differential Ord2 Eos ABS# 0.2 K/ul 2016 Cbc With Differential Ord2 Baso ABS# 0.1 K/ul 2016 Lipid Ord30 CHOL 228 mg/dL 05/05/2016 Lipid Ord30 HDL 42.0 mg/dl 05/05/2016 Lipid Ord30 TRIG 168 mg/dL 05/05/2016 Lipid Ord30 LDL 152 mg/dL 05/05/2016 Lipid Ord30 C/HDL 5.4 Ratio 05/05/2016 Comp Metabolic Qwi895 NA 135 mEq/L 05/05/2016 Comp Metabolic Xdy362 K 4.1 mEq/L 05/05/2016 Comp Metabolic Xqs022 CL 99 mEq/L 05/05/2016 Comp Metabolic Bbz054 CO2 29.0 mEq/L 05/05/2016 Comp Metabolic Dun176 ANION GAP 11 05/05/2016 Comp Metabolic Fqx596 GLUCOSE 229 mg/dL 05/05/2016 Comp Metabolic Gkq256 Creat 0.5 mg/dL 05/05/2016 Comp Metabolic Pbg418 eGFR 150 ml/min/1.73m2 05/05/2016 Comp Metabolic Juv734 BUN 14 mg/dL 05/05/2016 Comp Metabolic Ncq110 B/C Ratio 29.2 Ratio 05/05/2016 Comp Metabolic Vye989 CALCIUM 9.1 mg/dL 05/05/2016 Comp Metabolic Obd740 ALK PHOS 112 U/L 05/05/2016 Comp Metabolic Tso554 AST(SGOT) 59 U/L 05/05/2016 Comp Metabolic Bri584 ALT(SGPT) 63 U/L 05/05/2016 Comp Metabolic Nwa243 BILI T 0.7 mg/dL 05/05/2016 Comp Metabolic Fei740 ALBUMIN 3.8 g/dL 05/05/2016 Comp Metabolic Qlq070 TPRO 6.5 g/dL 05/05/2016 Comp Metabolic Mtk817 GLOB 2.7 g/dL 05/05/2016 Comp Metabolic Eju372 A/G Ratio 1.4 Ratio 05/05/2016 Comp Metabolic Uoc017 Osmo 278 mOsmo 05/05/2016 Cbc With Differential [...] 30.2 pg 05/05/2016 Cbc With Differential Ord2 [place]% 4.4 % 05/05/2016 Cbc With Differential Ord2 [...] 3.59 K/ul 05/05/2016 Cbc With Differential Ord2 [place] ABS# 0.7 K/ul 05/05/2016 Cbc With Differential Ord2 Eos ABS# 0.1 K/ul 05/05/2016 Cbc With Differential Ord2 Baso ABS# 0.1 K/ul 05/05/2016 %Hba1C Jeb438 % HbA1c 34828-3 10.4 % 05/05/2016 %Hba1C Ecg022 Gluc Ave 252 mg/dL 05/05/2016 Hcg Beta Subunit Qual Serum 198980 B-HCG QUALITATIVE NEGATIVE 12/27/2015 GC/CHL PRB 0533150 Chl trach DNA Negative 12/25/2015 GC/CHL PRB 1247401 GC PROBE Negative 12/25/2015 Comp. Metabolic Panel (14) 34522 GLUCOSE 136 mg/dL 12/17/2015 Comp. Metabolic Panel (14) 34376 BUN 9 mg/dL 12/17/2015 Comp. Metabolic Panel (14) 52664 CREATININE 0.67 mg/dL 12/17/2015 Comp. Metabolic Panel (14) 39984 SODIUM 136 mmol/L 12/17/2015 Comp. Metabolic Panel (14) 59481 POTASSIUM 4.4 mmol/L 12/17/2015 Comp. Metabolic Panel (14) 32280 CHLORIDE 95 mmol/L 06/2015 Comp. Metabolic Panel (14) 93817 CARBON DIOXIDE 28 mmol/L 06/2015 Comp. Metabolic Panel (14) 15947 CALCIUM 10.1 mg/dL 2015 Comp. Metabolic Panel (14) 14916 TOTAL PROTEIN 7.0 g/dL 12/16 Comp. Metabolic Panel (14) 62176 ALBUMIN 4.5 g/dL 12/17/2015 Comp. Metabolic Panel (14) 96218 ALKALINE PHOSPHATASE 87 U/L 12/17/2015 Comp. Metabolic Panel (14) 16010 TOTAL BILIRUBIN 0.5 mg/dL Comp. Metabolic Panel (14) 73326 SGOT ( AST) 38 U/L 2015 Comp. Metabolic Panel (14) 08697 SGPT ( ALT) 41 U/L 2015 Comp. Metabolic Panel (14) 79918 eGFR (mL /min/1.73m2) >60 06/2015 Comp. Metabolic Panel (14) 09658 12/17/2015 Cbc With Differential/Platelet 81139 WBC 16.67 thou/uL 2015 Cbc With Differential/Platelet 09381 RBC 5.11 mil/uL 2015 Cbc With Differential/Platelet 40854 HEMOGLOBIN 14.8 g/dL 12/17/2015 Cbc With Differential/Platelet 04012 HEMATOCRIT 48.7 % 06/2015 Cbc With Differential/Platelet 81320 MCV 95.4 fL 12/17/2015 Cbc With Differential/Platelet 90838 MCH 29.0 pg 12/17/2015 Cbc With Differential/Platelet 00143 MCHC 30.4 g/dL 2015 Cbc With Differential/Platelet 32863 RDW- CV 14.6 % 12/17/2015 Cbc With Differential/Platelet 21760 PLATELET COUNT 471 thou/uL 12/17/2015 Cbc With Differential/Platelet 65562 NEUTROPHIL % 71.3 % Cbc With Differential/Platelet 39228 LYMPHOCYTE % 22.4 % Cbc With Differential/Platelet 56687 MONOCYTE % 4.8 % 12/16 Cbc With Differential/Platelet 96510 EOS % 0.7 % 12/17/2015 Cbc With Differential/Platelet 89180 BASO % 0.7 % 2015 Cbc With Differential/Platelet 43423 NEUTROPHIL ABS # 11.89 thou/uL 12/17/2015 Cbc With Differential/Platelet 85073 LYMPH ABS # 3.73 thou/uL 12/17/2015 Cbc With Differential/Platelet 05789 MONOCYTE ABS # 0.80 thou/uL 12/17/2015 Cbc With Differential/Platelet 77114 EOS ABS # 0.12 thou/uL 06/2015 Cbc With Differential/Platelet 68629 BASO ABS # 0.12 thou/uL 12/17/2015 Comp. [...] Hgb A1C With Eag Estimation GLYCOHEMOGLOBIN A1C 59812-6 8.1 % 11/13/2015 Hgb A1C With Eag Estimation ESTIMATED AVG GLUCOSE 186 mg/dL 11/13/2015 Comp. Metabolic Panel (14) 25715 GLUCOSE 84 mg/dL 09/11/2015 Comp. Metabolic Panel (14) 84389 BUN 11 mg/dL 09/11/2015 Comp. Metabolic Panel (14) 77357 CREATININE 0.56 mg/dL 09/11/2015 Comp. Metabolic Panel (14) 96398 SODIUM 142 mmol/L 09/11/2015 Comp. Metabolic Panel (14) 88463 POTASSIUM 4.3 mmol/L 09/11/2015 Comp. Metabolic Panel (14) 01401 CHLORIDE 98 mmol/L Comp. Metabolic Panel (14) 48744 CARBON DIOXIDE 27 mmol/L Comp. Metabolic Panel (14) 64835 CALCIUM 10.1 mg/dL 2015 Comp. Metabolic Panel (14) 42814 TOTAL PROTEIN 7.2 g/dL 09/10 Comp. Metabolic Panel (14) 42035 ALBUMIN 4.7 g/dL 09/11/2015 Comp. Metabolic Panel (14) 27033 ALKALINE PHOSPHATASE 109 U/L 09/11/2015 Comp. Metabolic Panel (14) 66565 TOTAL BILIRUBIN 0.3 mg/dL Comp. Metabolic Panel (14) 63317 SGOT ( AST) 53 U/L 2015 Comp. Metabolic Panel (14) 38357 SGPT ( ALT) 53 U/L 2015 Comp. Metabolic Panel (14) 28896 eGFR (mL /min/1.73m2) >60 Comp. Metabolic Panel (14) 42331 09/11/2015 Comp. Metabolic Panel (14) 62796 GLUCOSE 183 mg/dL 08/11/2015 Comp. Metabolic Panel (14) 38160 BUN 10 mg/dL 08/11/2015 Comp. Metabolic Panel (14) 64495 CREATININE 0.46 mg/dL 08/11/2015 Comp. Metabolic Panel (14) 22779 SODIUM 138 mmol/L 08/11/2015 Comp. Metabolic Panel (14) 83581 POTASSIUM 4.0 mmol/L 08/11/2015 Comp. Metabolic Panel (14) 72809 CHLORIDE 98 mmol/L Comp. Metabolic Panel (14) 94612 CARBON DIOXIDE 29 mmol/L Comp. Metabolic Panel (14) 74753 CALCIUM 9.4 mg/dL 08/11/2015 Comp. Metabolic Panel (14) 27180 TOTAL PROTEIN 6.8 g/dL 08/11 Comp. Metabolic Panel (14) 13662 ALBUMIN 4.4 g/dL 08/11/2015 Comp. Metabolic Panel (14) 68550 ALKALINE PHOSPHATASE 118 U/L 08/11/2015 Comp. Metabolic Panel (14) 47801 TOTAL BILIRUBIN <0.3 mg/dL 08/11/2015 Comp. Metabolic Panel (14) 93651 SGOT ( AST) 41 U/L 2015 Comp. Metabolic Panel (14) 21108 SGPT ( ALT) 55 U/L 2015 Comp. Metabolic Panel (14) 23489 eGFR (mL /min/1.73m2) >60 Comp. Metabolic Panel (14) 64265 08/11/2015 Cbc With Differential/Platelet 38355 WBC 11.76 thou/uL 2015 Cbc With Differential/Platelet 83176 RBC 4.98 mil/uL 2015 Cbc With Differential/Platelet 85754 HEMOGLOBIN 14.2 g/dL 08/11/2015 Cbc With Differential/Platelet 39388 HEMATOCRIT 46.7 % Cbc With Differential/Platelet 96476 MCV 93.8 fL 08/11/2015 Cbc With Differential/Platelet 58218 MCH 28.5 pg 08/11/2015 Cbc With Differential/Platelet 83212 MCHC 30.4 g/dL 2015 Cbc With Differential/Platelet 51811 RDW- CV 14.3 % 08/11/2015 Cbc With Differential/Platelet 57796 PLATELET COUNT 382 thou/uL 08/11/2015 Cbc With Differential/Platelet 00245 NEUTROPHIL % 67.3 % Cbc With Differential/Platelet 72094 LYMPHOCYTE % 24.0 % Cbc With Differential/Platelet 27074 MONOCYTE % 6.0 % 08/11 Cbc With Differential/Platelet 47505 EOS % 1.6 % 08/11/2015 Cbc With Differential/Platelet 10270 BASO % 1.0 % 2015 Cbc With Differential/Platelet 25371 NEUTROPHIL ABS # 7.91 thou/uL 08/11/2015 Cbc With Differential/Platelet 82620 LYMPH ABS # 2.82 thou/uL 08/11/2015 Cbc With Differential/Platelet 54870 MONOCYTE ABS # 0.71 thou/uL 08/11/2015 Cbc With Differential/Platelet 95408 EOS ABS # 0.19 thou/uL Cbc With Differential/Platelet 04482 BASO ABS # 0.12 thou/uL 08/11/2015 Tsh 238877 TSH 3.220 uIU/mL 08/11/2015 Lipid Panel 53617 CHOLESTEROL 193 mg/dL 08/11/2015 Lipid Panel 77334 TRIGLYCERIDES 192 mg/dL 08/11/2015 Lipid Panel 04145 HDL 38 mg/dL 08/11/2015 Lipid Panel 21534 CHOLESTEROL/HDL 5.08 08/11/2015 Lipid Panel 25216 LDL (CALCULATED) 117 mg/dL 08/11/2015 Lipid Panel 36884 LDL/HDL 3.08 08/11/2015 Lipid Panel 25572 PHENOTYPE TYPE IV BORDERLINE 08/11/2015 Review of [...] distress 03/07/2018 None Full Exam - General 1995 Constitutional general appearance Overall: well nourished 03/07/2018 [...] Procedure Codes Date THER/PROPH/DIAG INJ SC/IM CPT-4: 72271 06/05/2018 ROCEPHIN, PER 250 MG CPT-4: J0696 06/05/2018 REMOVAL OF SKIN TAGS <W/15 CPT-4: 09047 03/14/2018 FLU VAC NO PRSV 4 PRECIOUS 3 YRS+ CPT-4: 67708 03/14/2018 IMMUNIZATION ADMIN CPT -4: 13109 03/14/2018 TRIAMCINOLONE ACET INJ NOS CPT-4: J3301 02/19/2018 THER/PROPH/DIAG INJ SC/IM CPT-4: 69927 02/19/2018 THER/PROPH/DIAG INJ SC/IM CPT-4: 94085 09/05/2017 TRIAMCINOLONE ACET INJ NOS CPT-4: J3301 09/05/2017 IMMUNIZATION ADMIN CPT -4: 60861 04/24/2017 FLU VAC NO PRSV 4 PRECIOUS 3 YRS+ CPT-4: 28288 04/24/2017 DRAIN/INJECT JOINT/BURSA CPT-4: 16465 04/24/2017 TRIAMCINOLONE ACET INJ NOS CPT-4: J3301 04/24/2017 THER/PROPH/DIAG INJ SC/IM CPT-4: 50230 01/09/2017 TRIAMCINOLONE ACET INJ NOS CPT-4: J3301 01/09/2017 THER/PROPH/DIAG INJ SC/IM CPT-4: 27142 04/13/2016 Pneumococcal Polysaccharide Vaccine, 23-Valent, Ad CPT-4: 42285 04/13/2016 INJECT TRIGGER POINTS 3/> CPT-4: 02027 04/06/2016 TRIAMCINOLONE ACET INJ NOS CPT-4: J3301 04/06/2016 IMMUNIZATION ADMIN CPT -4: 67424 03/30/2016 IIV4 FLU VACC NO PRESERV ID SNOMED CT: [id number] CPT-4: 55336 03/30/2016 TRIAMCINOLONE ACET INJ NOS CPT-4: J3301 02/28/2016 THER/PROPH/DIAG INJ SC/IM CPT-4: 00341 02/28/2016 TRIAMCINOLONE ACET INJ NOS CPT-4: J3301 08/20/2015 Vital Signs Date Vital 06/05/2018 Blood Pressure 1: 127/74 Code : 8480-6 BMI: 42.4 Code : 47197-5 Heart Rate 1 : 78 bpm Height: 4'11" SpO2: 97% Weight: 210 lbs 03/26/2018 Blood Pressure 1: 128/74 Code : 8480-6 BMI: 43.0 Code : 24304-9 Heart Rate 1 : 120 bpm Height: 4'11 " SpO2: 97% Weight: 213 lbs 03/14/2018 Blood Pressure 1: 12074 Code : 8480-6 BMI: 43.0 Code : 50723-3 Heart Rate 1 : 114 bpm Height: 4'11 " SpO2: 95% Weight: 213 lbs 03/07/2018 Blood Pressure 1: 13274 Code : 8480-6 BMI: 43.8 Code : 58392-5 Heart Rate 1 : 123 bpm Height: [...] Code : 8480-6 BMI: 45.4 Code : 98858-1 Heart Rate 1 : 108 bpm Height: 4'11 " SpO2: 95% Weight: 225 lbs 06/07/2017 Blood Pressure 1: 13274 Code : 8480-6 Heart Rate 1: 99 bpm Height: 4'11" SpO2: 95% 04/24/2017 Blood Pressure 1: 132/8096 Code: 8480-6 BMI: 47.7 Code: 69829-5 Heart Rate 1: 96 bpm Height: 4'11" Weight: 236 lbs 01/09/2017 Blood Pressure 1: 122/74 Code : 8480-6 BMI: 46.0 Code : 26007-0 Heart Rate 1 : 114 bpm Height: 4'11 " SpO2: 98% Temperature: 37.1 (C) / 98.7 (F) Weight: 228 lbs 10/30/2016 Blood Pressure 1: 124/78 Code : 8480-6 BMI: 49.1 Code : 30560-0 Heart Rate 1 : 90 bpm Height: 4'11" SpO2: 97% Weight: 243 lbs 10/09/2016 Blood Pressure 1: 124/80 Code : 8480-6 BMI: 49.3 Code : 45449-5 Heart Rate 1 : 91 bpm Height: 4'11" SpO2: 98% Weight: 244 lbs 09/12/2016 Blood Pressure 1: 128/80 Code : 8480-6 BMI: 49.1 Code : 47693-1 Heart Rate 1 : 94 bpm Height: 4'11" SpO2: 95% Weight: 243 lbs 09/05/2016 Blood Pressure 1: 118/74 Code : 8480-6 BMI: 49.1 Code : 88729-9 Heart Rate 1 : 100 bpm Height: 4'11 " SpO2: 97% Weight: 243 lbs 06/16/2016 Blood Pressure 1: 120/62 Code : 8480-6 BMI: 49.1 Code : 91647-9 Heart Rate 1 : 100 bpm Height: 4'11 " SpO2: 96% Temperature: 36.7 (C) / 98.0 (F) Weight: 243 lbs 06/13/2016 Blood Pressure 1: 120/70 Code : 8480-6 Heart Rate 1: 117 bpm SpO2: 97% 05/19/2016 Blood Pressure 1: 130/64 Code : 8480-6 BMI: 49.1 Code : 43872-2 Heart Rate 1 : 101 bpm Height: 4'11 " SpO2: 96% Weight: 243 lbs 05/08/2016 Blood Pressure 1: 128/76 Code : 8480-6 Heart Rate 1: 119 bpm Height: SpO2: 97% Weight: 05/05/2016 Blood Pressure 1: 124/76 Code : 8480-6 BMI: 49.1 Code : 94553-2 Heart Rate 1 : 75 bpm Height: 4'11" SpO2: 99% Weight: 243 lbs 04/10/2016 Blood Pressure 1: 140/80 Code : 8480-6 BMI: 49.7 Code : 82303-1 Heart Rate 1 : 88 bpm Height: 4'11" SpO2: 95% Weight: 246 lbs 04/06/2016 Blood Pressure 1: 134/82 Code : 8480-6 BMI: 75.1 Code : 25270-6 Heart Rate 1 : 72 bpm Height: 4' SpO2: 96% Weight: 246 lbs 03/08/2016 Blood Pressure 1: 126/72 Code : 8480-6 BMI: 49.7 Code : 08978-1 Heart Rate 1 : 89 bpm Height: 4'11" SpO2: 97% Weight: 246 lbs 02/28/2016 Blood Pressure 1: 124/68 Code : 8480-6 BMI: 49.7 Code : 05696-5 Heart Rate 1 : 89 bpm Height: 4'11" SpO2: 96% Weight: 246 lbs 01/18/2016 Blood Pressure 1: 142/78 Code : 8480-6 BMI: 48.9 Code : 26620-0 Heart Rate 1 : 97 bpm Height: 4'11" SpO2: 97% Weight: 242 lbs 12/23/2015 Blood Pressure 1: 124/74 Code : 8480-6 BMI: 48.9 Code : 16076-4 Heart Rate 1 : 106 bpm Height: 4'11 " SpO2: 96% Weight: 242 lbs 12/16/2015 Blood Pressure 1: 116/82 Code : 8480-6 BMI: 48.3 Code : 98842-6 Heart Rate 1 : 111 bpm Height: 4'11 " SpO2: 97% Weight: 239 lbs 11/11/2015 Blood Pressure 1: 130/80 Code : 8480-6 BMI: 49.7 Code : 70856-5 Heart Rate 1 : 105 bpm Height: 4'11 " SpO2: 96% Weight: 246 lbs 10/27/2015 Blood Pressure 1: 122/70 Code : 8480-6 BMI: 49.5 Code : 93223-2 Heart Rate 1 : 107 bpm Height: 4'11 " SpO2: 96% Weight: 245 lbs 10/13/2015 Blood Pressure 1: 140/82 Code : 8480-6 BMI: 50.9 Code : 63668-3 Heart Rate 1 : 111 bpm Height: 4'11 " SpO2: 96% Weight: 252 lbs 10/05/2015 Blood Pressure 1: 118/70 Code : 8480-6 BMI: 51.1 Code : 83938-1 Heart Rate 1 : 120 bpm Height: 4'11 " SpO2: 97% Weight: 253 lbs 09/01/2015 Blood Pressure 1: 132/82 Code : 8480-6 BMI: 50.1 Code : 03350-7 Heart Rate 1 : 110 bpm Height: 4'11 " SpO2: 96% Weight: 248 lbs 08/20/2015 Blood Pressure 1: 132/78 Code : 8480-6 BMI: 51.7 Code : 93694-6 Heart Rate 1 : 100 bpm Height: 4'11 " Weight: 256 lbs 08/03/2015 Blood Pressure 1: 148/92 Code : 8480-6 BMI: 52.1 Code : 58704-7 Heart Rate 1 : 100 bpm Height: 4'11 " SpO2: 97% Weight: 258 lbs Functional Status No Functional Status data History of Present Illness Symptom Name Status Result Effective Date Notes Onset and Resolution sudden in onset 06/05/2018 [...] mellitus with hyperglycemia[ICD10: E11.65] Gloria Hess MD, [facility] CPT-4: 38188 06/05/2018 [id number] EST. PATIENT, LEVEL III Diagnosis: Gastro-esophageal reflux disease without esophagitis[ICD10: K21.9] Diagnosis: Other allergic rhinitis[ICD10: J30.89] Diagnosis: Cough[ICD10: R05] Gloria Hess MD, [facility] CPT-4: 36745 03/26/2018 [id number]) [id number] EST. PATIENT, LEVEL III Diagnosis: Cough[ICD10: R05] Gloria Hess MD, [facility] CPT-4: 02516 03/14/2018 [id number] EST. PATIENT, LEVEL IV Diagnosis: Acute laryngopharyngitis[ICD10: J06.0] Diagnosis: Other allergic rhinitis[ICD10: J30.89] Diagnosis: Cough[ICD10: R05] Gloria Hess MD, [facility] CPT-4: 04570 03/07/2018 [id number] EST. PATIENT, LEVEL IV Diagnosis: Acute bronchitis due to other specified organisms[ICD10: J20.8] Diagnosis: Acute laryngopharyngitis[ICD10: J06.0] Gloria Hess MD, [facility] CPT-4: 86611 02/19/2018 [id number] EST. PATIENT, LEVEL IV Diagnosis: Candidiasis of vulva and vagina[ICD10: B37.3] Diagnosis: Rash and other nonspecific skin eruption[ICD10: R21] Gloria Hess MD, [facility] CPT-4: 71032 01/08/2018 [id number] EST. PATIENT, LEVEL III Diagnosis: Sacrococcygeal disorders, not elsewhere classified[ICD10: M53.3] Diagnosis: Low back pain[ICD10: M54.5] Gloria Hess MD, [facility] CPT-4 : 68011 11/23/2017 [id number] EST. PATIENT, LEVEL III Diagnosis: Acute laryngopharyngitis[ICD10: J06.0] Diagnosis: Other allergic rhinitis[ICD10: J30.89] Diagnosis: Acute bronchitis due to other specified organisms[ICD10: J20.8] Gloria Hess MD, [facility] CPT-4: 07361 09/05/2017 [id number] EST. PATIENT, LEVEL III Diagnosis: Pain in left foot[ICD10: M79.672] Diagnosis: Rash and other nonspecific skin eruption[ICD10: R21] Diagnosis: Candidiasis of vulva and vagina[ICD10: B37.3] Diagnosis: Localized edema[ICD10: R60.0] Diagnosis: Dyspnea, unspecified[ICD10: R06.00] Gloria Hess MD, [facility] CPT-4: 27863 06/07/2017 [id number] EST. PATIENT, LEVEL III Diagnosis: Low back pain[ICD10: M54.5] Diagnosis: Sacroiliitis, not elsewhere classified[ICD10: M46.1] Diagnosis: Pain in left foot[ICD10: M79.672] Diagnosis: VACCIN FOR INFLUENZA[ICD10: Z23] Gloria Hess MD, [facility] CPT- 4: 02156 04/24/2017 74478 EST. PATIENT, LEVEL III Diagnosis: Acute suppurative otitis media without spontaneous rupture of ear drum, right ear[ICD10: H66.001] Diagnosis: Other allergic rhinitis[ICD10: J30.89] Gloria Hess MD, [facility] CPT-4: 06225 01/09/2017 [id number] EST. PATIENT, LEVEL IV Diagnosis: Candidiasis of vulva and vagina[ICD10: B37.3] Diagnosis: Type 2 diabetes mellitus with hyperglycemia[ICD10: E11.65] Gloria Hess MD, [facility] CPT-4: 15612 10/30/2016 [id number] EST. PATIENT, LEVEL III Diagnosis: Candidiasis of vulva and vagina[ICD10: B37.3] Diagnosis: Type 2 diabetes mellitus with hyperglycemia[ICD10: E11.65] Gloria Hess MD, [facility] CPT-4: 24826 10/09/2016 26481 EST. PATIENT, LEVEL IV Diagnosis: Umbilical hernia without obstruction or gangrene[ICD10: K42.9] Gloria Hess MD, [facility] CPT-4: 82806 09/12/2016 25859 EST. PATIENT, LEVEL III Diagnosis: Epigastric pain[ICD10: R10.13] Diagnosis: Candidiasis of vulva and vagina[ICD10: B37.3] Diagnosis: Type 2 diabetes mellitus with hyperglycemia[ICD10: E11.65] Gloria Hess MD, [facility] CPT-4: 82343 09/05/2016 63763 EST. PATIENT, LEVEL III Diagnosis: Acute laryngopharyngitis[ICD10: J06.0] Diagnosis: Other allergic rhinitis[ICD10: J30.89] Gloria Hess MD, [facility] CPT-4: 81263 06/16/2016 28949 EST. PATIENT, LEVEL III Diagnosis: Type 2 diabetes mellitus with hyperglycemia[ICD10: E11.65] Diagnosis: Other obesity due to excess calories[ICD10: E66.09] Gloria Hess MD, [facility] CPT-4: 99523 06/13/2016 76466 EST. PATIENT, LEVEL III Diagnosis: Type 2 diabetes mellitus with hyperglycemia[ICD10: E11.65] Diagnosis: Other obesity due to excess calories[ICD10: E66.09] Gloria Hess MD, [facility] CPT-4: 47825 05/19/2016 90369 EST. PATIENT, LEVEL III Diagnosis: Type 2 diabetes mellitus with hyperglycemia[ICD10: E11.65] Diagnosis: Other obesity due to excess calories[ICD10: E66.09] Gloria Hess MD, [facility] CPT-4: 37812 05/08/2016 76657 EST. PATIENT, LEVEL III Diagnosis: Type 2 diabetes mellitus without complications[ICD10: E11.9] Gloria Hess MD [facility] CPT-4: 07087 05/05/2016 97660 EST. PATIENT, LEVEL III Diagnosis: Pain in right shoulder[ICD10: M25.511] Gloria Hess MD [facility] CPT-4: 95855 04/10/2016 58734 EST. PATIENT, LEVEL III Diagnosis: Pain in right shoulder[ICD10: M25.511] Diagnosis: Other muscle spasm[ICD10: M62.838] Diagnosis: Type 2 diabetes mellitus without complications[ICD10: E11.9] Gloria Hess MD [facility] CPT-4: 77522 04/06/2016 12102 EST. PATIENT, LEVEL IV Diagnosis: Acute bronchitis due to other specified organisms[ICD10: J20.8] Diagnosis: Other acute sinusitis[ICD10: J01.80] Diagnosis: Acne vulgaris[ICD10: L70.0] Diagnosis: Morbid (severe) obesity due to excess calories[ICD10: E66.01] Gloria Hess MD , [facility] CPT-4: 24952 03/08/2016 62919 EST. PATIENT, LEVEL IV Diagnosis: Other acute sinusitis[ICD10: J01.80] Diagnosis: Localized enlarged lymph nodes[ICD10: R59.0] Gloria Hess MD, [facility] CPT-4: 15448 02/28/2016 65069 EST. PATIENT, LEVEL III Diagnosis: Type 2 diabetes mellitus without complications[ICD10: E11.9] Gloria Hess MD [facility] CPT-4: 75092 01/18/2016 ([id number]) PREV VISIT EST AGE 40-64 Diagnosis: Encounter for gynecological examination (general) (routine) without abnormal findings[ICD10: Z01.419] Diagnosis: Excessive and frequent menstruation with irregular cycle[ICD10: N92.1 ] Gloria Hess MD, [facility] CPT-4: 44946 12/23/2015 46167 EST. PATIENT, LEVEL III Diagnosis: Type 2 diabetes mellitus without complications[ICD10: E11.9] Gloria Hess MD [facility] CPT-4: 43087 12/16/2015 84251 EST. PATIENT, LEVEL III Diagnosis: Type 2 diabetes mellitus without complications[ICD10: E11.9] Diagnosis: Other obesity due to excess calories[ICD10: E66.09] Gloria Hess MD, [facility] CPT-4: 03849 11/11/2015 85674 EST. PATIENT, LEVEL III Diagnosis: Type 2 diabetes mellitus without complications[ICD10: E11.9] Diagnosis: Other obesity due to excess calories[ICD10: E66.09] Gloria Hess MD, [facility] CPT-4: 82487 10/27/2015 07810 EST. PATIENT, LEVEL III Diagnosis: Type 2 diabetes mellitus without complications[ICD10: E11.9] Diagnosis: Other obesity due to excess calories[ICD10: E66.09] Diagnosis: Other insomnia[ICD10: G47.09] Gloria Hess MD, [facility] CPT-4 : 09705 10/13/2015 65489 EST. PATIENT, LEVEL IV Diagnosis: Acute recurrent maxillary sinusitis[ICD10: J01.01] Diagnosis: Allergic rhinitis due to pollen[ICD10: J30.1] Diagnosis: Other obesity due to excess calories[ICD10: E66.09] Gloria Hess MD, [facility] CPT-4: 77122 10/05/2015 58387 EST. PATIENT, LEVEL IV Diagnosis: Polycystic ovarian syndrome[ICD10: E28.2] Diagnosis: Other skin changes[ICD10: R23.8] Diagnosis: Other abnormal glucose[ICD10: R73.09] Gloria Hess MD, [facility] CPT-4: 47434 09/01/2015 95843 EST. PATIENT, LEVEL IV Diagnosis: Acute recurrent maxillary sinusitis[ICD10: J01.01] Diagnosis: Morbid (severe) obesity due to excess calories[ICD10: E66.01] Diagnosis: Essential (primary) hypertension[ICD10: I10] Diagnosis: Allergic rhinitis due to pollen[ICD10: J30.1] Gloria Hess MD, [facility] CPT-4: 10876 08/20/2015 (06500) OFFICE VISIT, NEW - LEVEL 4 Diagnosis: Essential (primary) hypertension[ICD10: I10] Diagnosis: Obstructive sleep apnea (adult) (pediatric)[ICD10: G47.33] Diagnosis: Other insomnia[ICD10: G47.09] Diagnosis: Snoring[ICD10: R06.83] Diagnosis: Morbid (severe) obesity due to excess calories[ICD10: E66.01] Gloria Hess MD , [facility] CPT-4: 03250 08/03/2015 Plan of Care Planned Activity Notes Codes Status Date Visit Plan: Abscess/Cellulitis - The patient was instructed in appropriate wound care. The patient was instructed to use the antibiotic ointment as per RX. The patient is to call for any change in symptoms , increase in size of the lesion, increase in pain, worsening redness, warmth, discharge. 06/05/2018 Appointment: Gloria Scott WPtel: [address] [place], [place] [phone] (30 min) Complex 06/05/2018 Patient Education: Patient Medication Summary Completed 06/05/2018 Patient Education: Diabetes Completed 06/05/2018 Referral: Wilner [address] Referral Initiated 04/19/2018 Care Plan: Referral Order SNOMED-CT : [id number] Pending 03/27/2018 Visit Plan: Esophageal Reflux - [...] allergy spray. 03/26/2018 Appointment: Gloria Scott WPtel: [address] [place], [place] [phone] (15 min) Moderate 03/26/2018 Patient Education: Patient Medication Summary Completed 03/26/2018 Appointment: Gloria Scott WPtel: [address] [place], [place] [phone] (15 min) Moderate 03/25/2018 Visit Plan: Skin [...] and bandaids. 03/14/2018 Appointment: Gloria Scott WPtel: [address] [place], [place] [address] (15 min) Moderate 03/14/2018 Patient Education: Patient [...] improve 03/07/2018 Appointment: Gloria Scott WPtel: [phone] [facility]66[facility] (15 min) Moderate 03/07/2018 Patient [...] worsen. 02/19/2018 Appointment: Gloria Scott WPtel: [phone] [facility] (15 min) Moderate 02/19/2018 Patient Education: Patient [...] discharge. 01/08/2018 Appointment: Gloria Scott WPtel: [phone] [facility] (30 min) Complex 01/08/2018 Patient Education: [...] acutely worsen. 09/05/2017 Appointment: Gloria Scott WPtel: [facility]0 [facility]66[facility] (15 min) Moderate 09/05/2017 Patient Education: Patient [...] RX 06/07/2017 Appointment: Gloria Scott WPtel: [phone] [facility] [place] (15 min) Moderate 06/07/2017 Patient Education: [...] of injection. 04/24/2017 Appointment: Gloria Scott WPtel: [facility]9 [facility] (30 min) Complex 04/24/2017 Patient Education: Patient Medication Summary Completed 04/24/2017 Appointment: Gloria Scott WPtel: [facility]6 [facility] (30 min) Complex 03/09/2017 Appointment: Gloria Scott WPtel: [facility]2 [facility] (30 min) Complex 02/13/2017 Visit Plan: [...] allergy spray. 01/09/2017 Appointment: Gloria Scott WPtel: [facility]2 [facility] (10 min) Simple 01/09/2017 Patient Education: Patient Medication Summary Completed 01/09/2017 Patient Education: Obesity Completed 01/09/2017 Visit Plan: Vaginal candidiasis - will send RX - pt is to notify clinic if symptoms do not improve, if they worsen, or with any questions or concerns. Diabetes Mellitus - Uncontrolled - Will refer to batch analyst - I have recommended for the patient [...] Mellitus - Uncontrolled - Will refer to batch analyst - I have recommended for the patient [...] glucose control. 10/09/2016 Appointment: Gloria Scott WPtel: [facility] (30 min) Complex 10/09/2016 Patient Education: Patient Medication Summary Completed 10/09/2016 Patient Education: Obesity Completed 10/09/2016 Referral: Roni Roberts Referral Completed 09/18/2016 Care Plan: CT ABD & PELV W/CONTRAST LOINC : 54105-9 Pending 09/13/2016 Care Plan: Referral Order SNOMED-CT : [id number] Pending 09/13/2016 Visit Plan: Ongoing abdominal pain/hernia - will send RX - will refer - pt is to notify clinic if symptoms do not improve, if they worsen, or with any questions or concerns. 09/12/2016 Appointment: Gloria Scott [facility]Ptel: [phone] (30 min) Complex 09/12/2016 Patient Education: Patient Medication Summary Completed 09/12/2016 Patient Education: Obesity Completed 09/12/2016 Care Plan: Referral Order SNOMED-CT : [id number] Pending 09/12/2016 Visit Plan: Ongoing abdominal/epigastric pain [...] glucose control. 09/05/2016 Appointment: Gloria Scott WPtel: [address] [place], [place] [address] (30 min) Complex 09/05/2016 Patient Education: Patient [...] spray. 06/16/2016 Appointment: Gloria Scott WPtel: [phone] [facility] [place] (10 min) Simple 06/16/2016 Patient Education: Patient [...] check. 06/13/2016 Appointment: Gloria Scott WPtel: [phone] [facility] (30 min) Complex 06/13/2016 Patient Education: Patient Medication Summary Completed 06/13/2016 Patient Education: Obesity Completed 06/13/2016 Appointment: Gloria Scott WPtel: [phone] [facility] [place] (30 min) Complex 06/08/2016 Visit [...] check. 05/19/2016 Appointment: Tamy Lugo WPtel: [phone] [phone] [place] (30 min) Complex 05/19/2016 Patient Education: [...] weight check. 05/08/2016 Appointment: Gloria Scott WPtel: [facility] [place] (15 min) Moderate 05/08/2016 Patient Education: [...] the morning. 05/05/2016 Appointment: Tamy Lugo WPtel: [phone] [phone] [place] (15 min) Moderate 05/05/2016 Patient Education: Patient Medication Summary Completed 05/05/2016 Patient Education: Obesity Completed 05/05/2016 Care Plan: Comp Metabolic Pending 05/05/2016 Appointment: Jocelyn Hess WPtel: [facility]5 [facility] Surgical Procedure 04/17/2016 Appointment: Injection 04/13/2016 Patient Education: Patient Medication Summary Completed 04/13/2016 Visit Plan: Right shoulder pain - will refer to PT - The pt is to use prn antiinflammatories to manage acute pain. The patient is to call the office if the pain is worsening or does not improve. 04/10/2016 Appointment: Gloria Scott WPtel: [phone] [facility] (30 min) Complex 04/10/2016 Patient Education: [...] control. 04/06/2016 Appointment: [facility] Scott [facility]Ptel: [phone] (15 min) Moderate 04/06/2016 Patient Education: Patient [...] [place] 02/28/2016 Appointment: Gloria Scott WPtel: [phone] [facility] (30 min) Complex 02/28/2016 Patient Education: Patient Medication Summary Completed 02/28/2016 Patient Education: Obesity Completed 02/28/2016 Appointment: Gloria Scott WPtel: [phone] [facility] (15 min) Moderate 01/31/2016 Visit Plan: Diabetes [...] prn. 12/23/2015 Appointment: Gloria Scott WPtel: [phone] [facility] [facility] 12/23/2015 Patient Education: Patient Medication [...] %Hba1C ADD TO BLOOD IN THE LAB. [facility] : 47089-5 Pending 08/13/2015 Visit Plan: Hypertension - uncontrolled [...] Referral: Roni Roberts Referral Completed [facility] [place] Referral Initiated Referral: Roni Roberts Referral [...] check. . Diabetes Mellitus - Uncontrolled - I [...] tomorrow diflucan for 14 days will send [facility] for a shot if needed will call [...] Mellitus - Uncontrolled - Will refer to batch analyst - I have recommended for the patient [...] Mellitus - Uncontrolled - Will refer to batch analyst - I have recommended for the patient [...]
[2018-07-15] MEDS ORDERED: NS (IVPB) 250 ML ONE (11:01)
[2018-07-15] MEDS ORDERED: VANCOMYCIN 1000 MG/VIAL ONE (11:01)
--- OUTSIDE RECORDS SUMMARY | 2018-07-15 11:06 | XMS REPORT | CCD ---
Author Author Gloria Scott MD, [facility] Address [address] [place] [address] Phone Care Team Providers Care Dairy Specialist Name Role Phone PP Unavailable CCM Unavailable Summary Purpose Interface Exchange Insurance Providers Payer name Policy type / Coverage type Covered green party ID Effective Begin Date Effective End Date [facility] Commercial Insurance [id number] Unknown Unknown Family history Father Diagnosis Age At Onset Hypertension Unknown Arthritis Unknown Mother Diagnosis Age At Onset Arthritis Unknown Hyperlipidemia Unknown Daughter Diagnosis Age At Onset Asthma Unknown Social History Social History Element Codes Description Effective Dates Marital status Unknown Darin 08/03/2015 Number of children Unknown 1 08/03/[address]: 4800795 Quit less than 5 years ago 08/03/2015 [...] Fill Instructions Keflex 500 mg capsule RxNorm: 522504 1 Capsule(s) PO TID 201706/11/2018 Active Diflucan 150 mg tablet RxNorm: 422884 1 Tablet(s) PO daily 07/02/2018 Active mupirocin 2 % topical ointment RxNorm: 842466 1 Application TOP BID 06/05/2018 No Stop Date Active ceftriaxone 500 mg solution for injection RxNorm: 5803576 Inj 06/05/2018 06/05/2018 Inactive Protonix 40 mg tablet,delayed release RxNorm: 683606 1 Tablet(s) PO BID x 1 week then daily 03/26/2018 No Stop Date Active Phenergan with Codeine Syrup RxNorm: 5-10 ML PO QID as needed cough 03/19/2018 No Stop Date Active promethazine 25 mg tablet RxNorm: 729062 Tablet(s) TAKE ONE TABLET BY MOUTH EVERY 6 TO 8 HOURS NEEDED 03/15/2018 No Stop Date Active Singulair 10 mg tablet RxNorm: 673443 1 Tablet(s) PO daily 04/12/2018 Inactive metoprolol succinate ER 100 mg tablet,extended release 24 hr RxNorm: 309533 1 Tablet(s) PO daily 03/07/2018 04/05/2018 Inactive Zithromax Z-Rashid 250 mg tablet RxNorm: 195921 1 Tablet(s) PO UD 03/07/2018 03/07/2018 Inactive prednisone 20 mg tablet RxNorm: 652661 2 Tablet(s) PO daily 03/11/2018 Inactive albuterol sulfate 2.5 mg/3 mL (0.083 %) solution for nebulization RxNorm: 746621 3 Milliliter(s) INH Q4-6H as needed dyspnea 02/19/2018 No Stop Date Active Diflucan 150 mg tablet RxNorm: 308006 Tablet(s) TAKE ONE TABLET BY MOUTH ONCE DAILY FOR 7 DAYS THEN TAKE ONE TABLET BY MOUTH ONCE A WEEK 06/04/2018 Inactive Levaquin 500 mg tablet RxNorm: 489748 1 Tablet(s) PO daily 09/201702/25/2018 Inactive prednisone 20 mg tablet RxNorm: 015963 2 Tablet(s) PO daily 09/201702/23/2018 Inactive Kenalog 40 mg/mL suspension for injection RxNorm: 5879817 15. Milliliter(s) Inj 02/19/2018 02/19/2018 Inactive hydrocodone 7.5 mg-acetaminophen 325 mg tablet RxNorm: 614618 1 Tablet(s) PO Q4H as needed 02/05/2018 03/06/2018 Inactive clindamycin HCl 300 mg capsule RxNorm: 492086 1 Capsule(s) PO TID 01/09/2018 01/15/2018 Inactive promethazine 25 mg tablet RxNorm: 349838 Tablet(s) TAKE ONE TABLET BY MOUTH EVERY 6 TO 8 HOURS NEEDED 01/08/20182017 Inactive Diflucan 150 mg tablet RxNorm: 654237 Tablet(s) TAKE ONE TABLET BY MOUTH ONCE DAILY FOR 7 DAYS THEN TAKE ONE TABLET BY MOUTH ONCE A WEEK 02/18/2018 Inactive Bactrim DS 800 mg-160 mg tablet RxNorm: 167890 1 Tablet(s) PO BID 01/08/2018 01/17/2018 Inactive prednisone 20 mg tablet RxNorm: 689508 2 Tablet(s) PO daily 01/201811/27/2017 Inactive Zithromax Z-Rashid 250 mg tablet RxNorm: 899163 1 Tablet(s) PO UD 09/05/2017 02/11/2018 Inactive Kenalog 40 mg/mL suspension for injection RxNorm: 1322473 Milliliter(s) Inj 09/05/2017 09/05/2017 Inactive prednisone 20 mg tablet RxNorm: 835715 2 Tablet(s) PO daily 09/09/2017 Inactive ibuprofen 800 mg tablet RxNorm: 050630 1 Tablet(s) PO TID 07/2702/21/2018 Inactive metoprolol succinate ER 100 mg tablet,extended release 24 hr RxNorm: 327533 TAKE ONE TABLET BY MOUTH ONCE DAILY 06/20/2017 No Stop Date Active alprazolam 0.5 mg tablet RxNorm: 107488 1 Tablet(s) PO Q8 as needed 06/20/2017 07/09/2017 Inactive Zithromax Z-Rashid 250 mg tablet RxNorm: 127618 1 Tablet(s) PO UD 06/15/2017 07/25/2017 Inactive Xopenex HFA 45 mcg/actuation aerosol inhaler RxNorm: 120374 INHALE ONE PUFF INTO LUNGS NEEDED 06/13/2017 07/14/2017 Inactive Xopenex 1.25 mg/3 mL solution for nebulization RxNorm: 169618 Milliliter(s) USE ONE VIAL IN NEBULIZER THREE TIMES DAILY 06/08/2017 No Stop Date Active Flovent HFA 44 mcg/actuation aerosol inhaler RxNorm: 608719 2 Puff(s) INH BID 06/08/2017 No Stop Date Active potassium chloride ER 10 mEq tablet,extended release RxNorm: 516540 1 Tablet(s) PO daily 06/08/2017 06/10/2017 Inactive Lasix 20 mg tablet RxNorm: 391658 1 Tablet(s) PO daily 201606/10/2017 Inactive Xopenex HFA 45 mcg/actuation aerosol inhaler RxNorm: 049711 INHALE ONE PUFF INTO LUNGS NEEDED 06/08/2017 06/12/2017 Inactive triamcinolone acetonide 0.025 % topical cream RxNorm: 0499418 1 Application TOP BID 06/07/2017 No Stop Date Active ibuprofen 800 mg tablet RxNorm: 253526 1 Tablet(s) PO TID 06/0707/06/2017 Inactive cyclobenzaprine 5 mg tablet RxNorm: 992752 1/2 Tablet(s) PO TID as needed muscle spasms 05/28/2017 06/01/2017 Inactive Diflucan 150 mg tablet RxNorm: 091708 TAKE ONE TABLET BY MOUTH ONCE DAILY FOR 7 DAYS THEN TAKE ONE TABLET BY MOUTH ONCE A WEEK 05/28/2017 01/07/2018 Inactive bumetanide 1 mg tablet RxNorm: 315334 TAKE ONE TABLET BY MOUTH TWICE DAILY 05/25/2017 No Stop Date Active meloxicam 7.5 mg tablet RxNorm: 650036 1 Tablet(s) PO daily as needed 05/25/2017 07/23/2017 Inactive Xopenex 1.25 mg/3 mL solution for nebulization RxNorm: 292320 USE ONE VIAL IN NEBULIZER THREE TIMES DAILY 05/25/2017 Inactive Protonix 40 mg tablet,delayed release RxNorm: 574094 1 Tablet(s) PO daily 05/08/2017 11/03/2017 Inactive Protonix 40 mg tablet,delayed release RxNorm: 659810 1 Tablet(s) PO daily 05/04/2017 05/03/2017 Inactive Protonix 40 mg tablet,delayed release RxNorm: 652658 1 Tablet(s) PO daily 05/04/2017 05/07/2017 Inactive meloxicam 7.5 mg tablet RxNorm: 501653 1 Tablet(s) PO daily as needed 04/25/2017 04/24/2017 Inactive meloxicam 7.5 mg tablet RxNorm: 617608 1 Tablet(s) PO daily as needed 04/25/2017 05/04/2017 Inactive promethazine 25 mg tablet RxNorm: 636451 TAKE ONE TABLET BY MOUTH EVERY 6 TO 8 HOURS NEEDED 04/25/2017 01/07/2018 Inactive Kenalog 40 mg/mL suspension for injection RxNorm: 0618327 1 Milliliter(s) Inj 04/24/2017 04/24/2017 Inactive cyclobenzaprine 5 mg tablet RxNorm: 672435 1/2 Tablet(s) PO TID as needed muscle spasms 04/24/2017 04/28/2017 Inactive Xopenex HFA 45 mcg/actuation aerosol inhaler RxNorm: 664049 INHALE ONE PUFF INTO LUNGS NEEDED 03/30/2017 04/14/2017 Inactive Humalog KwikPen 200 unit/mL (3 mL) subcutaneous RxNorm: 6912389 INJECT 35 UNITS SUBCUTANEOUSLY BEFORE MEAL(S) 03/30/2017 06/05/2017 Inactive promethazine 25 mg tablet RxNorm: 047316 Tablet(s) TAKE ONE TABLET BY MOUTH EVERY 6 TO 8 HOURS NEEDED 03/12/20172016 Inactive cyclobenzaprine 10 mg tablet RxNorm: 768104 TAKE ONE TABLET BY MOUTH ONCE DAILY NEEDED 03/06/2017 03/15/2017 Inactive lidocaine 5 % topical patch RxNorm: 0278713 USE ONE PATCH TOPICALLY DAILY. 12 HOURS ON AND THEN 12 HOURS OFF. 03/06/2017 03/15/2017 Inactive Humalog KwikPen 200 unit/mL (3 mL) subcutaneous RxNorm: 9418428 INJECT 35 UNITS SUBCUTANEOUSLY BEFORE MEAL(S) 02/20/2017 03/25/2017 Inactive promethazine 25 mg tablet RxNorm: 299614 Tablet(s) TAKE ONE TABLET BY MOUTH EVERY 6 TO 8 HOURS NEEDED 02/20/20172016 Inactive Xopenex HFA 45 mcg/actuation aerosol inhaler RxNorm: 513370 INHALE ONE PUFF INTO LUNGS NEEDED 02/20/2017 03/07/2017 Inactive bumetanide 1 mg tablet RxNorm: 725641 TAKE ONE TABLET BY MOUTH TWICE DAILY 02/15/2017 05/15/2017 Inactive bumetanide 1 mg tablet RxNorm: 060461 TAKE ONE TABLET BY MOUTH TWICE DAILY 01/15/2017 02/13/2017 Inactive metoprolol succinate ER 100 mg tablet,extended release 24 hr RxNorm: 332568 TAKE ONE TABLET BY MOUTH ONCE DAILY 01/11/2017 06/19/2017 Inactive Zithromax Z-Rashid 250 mg tablet RxNorm: 525798 1 Tablet(s) PO UD 01/09/2017 03/13/2017 Inactive meclizine 25 mg tablet RxNorm: 800953 1 Tablet(s) PO TID as needed 01/09/2017 01/18/2017 Inactive Kenalog 40 mg/mL suspension for injection RxNorm: 4769487 Milliliter(s) Inj 01/09/2017 01/09/2017 Inactive promethazine 25 mg tablet RxNorm: 450411 Tablet(s) TAKE ONE TABLET BY MOUTH EVERY 6 TO 8 HOURS NEEDED 12/29/20162016 Inactive Voltaren 1 % topical gel RxNorm: 591458 APPLY TOPICALLY TO AFFECTED AREA TWICE DAILY 12/25/2016 01/13/2017 Inactive cyclobenzaprine 10 mg tablet RxNorm: 263743 TAKE ONE TABLET BY MOUTH NEEDED 12/22/2016 12/31/2016 Inactive lidocaine 5 % topical patch RxNorm: 0319907 USE ONE PATCH TOPICALLY DAILY. 12 HOURS ON AND THEN 12 HOURS OFF. 12/22/2016 12/31/2016 Inactive hydrocodone 7.5 mg-acetaminophen 325 mg tablet RxNorm: 298810 1 Tablet(s) PO Q4H as needed 12/22/2016 01/20/2017 Inactive bumetanide 1 mg tablet RxNorm: 697677 TAKE ONE TABLET BY MOUTH TWICE DAILY 12/17/2016 01/14/2017 Inactive promethazine 25 mg tablet RxNorm: 710203 Tablet(s) TAKE ONE TABLET BY MOUTH EVERY 6 TO 8 HOURS NEEDED 11/16/20162016 Inactive spironolactone 50 mg tablet RxNorm: 735539 TAKE ONE TABLET BY MOUTH TWICE DAILY 11/15/2016 05/13/2017 Inactive Basaglar KwikPen 100 unit/mL (3 mL) subcutaneous RxNorm: 4840753 Unit(s) INJECT 35 UNITS IN THE MORNING AND 50 UNITS IN THE EVENING SUBCUTANEOUSLY 11/15/2016 03/14/2017 Inactive cyclobenzaprine 10 mg tablet RxNorm: 318215 TAKE ONE TABLET BY MOUTH NEEDED 11/15/2016 12/04/2016 Inactive lidocaine 5 % topical patch RxNorm: 5378428 1 Patch TOP daily . 12 HOURS ON, 12 HOURS OFF 11/15/2016 12/04/2016 Inactive lidocaine 4 % topical patch RxNorm: 1570992 1 Patch TOP on for 12 hours and off for 12 hours 11/14/2016 11/14/2016 Inactive promethazine 25 mg tablet RxNorm: 034600 TAKE ONE TABLET BY MOUTH EVERY 6 TO 8 HOURS NEEDED 11/14/2016 11/15/2016 Inactive Basaglar KwikPen 100 unit/mL (3 mL) subcutaneous RxNorm: 0422994 INJECT 35 UNITS IN THE MORNING AND 50 UNITS IN THE EVENING SUBCUTANEOUSLY 11/14/2016 Inactive cyclobenzaprine 10 mg tablet RxNorm: 923758 TAKE ONE TABLET BY MOUTH NEEDED 11/14/2016 11/14/2016 Inactive spironolactone 50 mg tablet RxNorm: 404954 TAKE ONE TABLET BY MOUTH TWICE DAILY 11/14/2016 11/14/2016 Inactive Diflucan 150 mg tablet RxNorm: 343482 1 Tablet(s) PO as needed prophylactic after sexual intercourse 10/30/2016 No Stop Date Active hydrocodone 7.5 mg-acetaminophen 325 mg tablet RxNorm: 044563 1 Tablet(s) PO Q4H as needed 10/30/2016 11/28/2016 Inactive clotrimazole 100 mg vaginal tablet RxNorm: 296072 1 Tablet(s) VAG QW 10/30/2016 11/28/2016 Inactive Humalog KwikPen 200 unit/mL (3 mL) subcutaneous RxNorm: 9028667 35 Unit(s) SQ AC 10/30/2016 02/19/2017 Inactive QS 30 day supply Bydureon 2 mg/0.65 mL subcutaneous pen injector RxNorm: 8577756 2 Milligram(s) SQ QW 10/30/2016 11/28/2016 Inactive Basaglar KwikPen 100 unit/mL (3 mL) subcutaneous RxNorm: 8065074 Unit(s) SQ 35 units in the morning and 50 units in the evening 10/30/2016 11/13/2016 Inactive QS 30 day supply cyclobenzaprine 10 mg tablet RxNorm: 930417 TAKE ONE TABLET BY MOUTH NEEDED 10/27/2016 11/05/2016 Inactive Diflucan 150 mg tablet RxNorm: 121348 1 Tablet(s) PO daily x 7 days then once a week 10/27/2016 10/29/2016 Inactive promethazine 25 mg tablet RxNorm: 785535 TAKE ONE TABLET BY MOUTH EVERY 6 TO 8 HOURS NEEDED 10/27/2016 11/10/2016 Inactive Diflucan 150 mg tablet RxNorm: 098426 1 Tablet(s) PO daily x 7 days then once a week 10/09/2016 10/15/2016 Inactive Diflucan 150 mg tablet RxNorm: 686278 1 Tablet(s) PO daily 10/201609/26/2016 Inactive Cipro 500 mg tablet RxNorm: 254883 1 Tablet(s) PO BID 201609/21/2016 Inactive Flagyl 500 mg tablet RxNorm: 891976 1 Tablet(s) PO TID 201609/21/2016 Inactive Diflucan 150 mg tablet RxNorm: 558378 1 Tablet(s) PO daily 09/12/2016 Inactive hydrocodone 7.5 mg-acetaminophen 325 mg tablet RxNorm: 809253 1 Tablet(s) PO Q4H as needed 07/12/2016 08/10/2016 Inactive Xopenex 1.25 mg/3 mL solution for nebulization RxNorm: 303184 3 Milliliter(s) INH TID 06/16/2016 05/24/2017 Inactive cefdinir 300 mg capsule RxNorm: 130898 1 Capsule(s) PO BID 06/25/2016 Inactive Mobic 7.5 mg tablet RxNorm: 936610 1 Tablet(s) PO daily 201506/25/2016 Inactive Levaquin 500 mg tablet RxNorm: 691618 1 Tablet(s) PO daily 06/22/2016 Inactive cyclobenzaprine 10 mg tablet RxNorm: 275400 1 Tablet(s) PO PRN as needed 06/14/2016 06/23/2016 Inactive promethazine 25 mg tablet RxNorm: 447230 TAKE ONE TABLET BY MOUTH EVERY 6 TO 8 HOURS NEEDED 06/14/2016 06/28/2016 Inactive Xopenex HFA 45 mcg/actuation aerosol inhaler RxNorm: 976394 1 Puff(s) INH PRN 06/14/2016 07/15/2016 Inactive pen needle, diabetic 32 gauge x 5/16" RxNorm: 1 use Miscellaneous AC & HS 06/13/2016 No Stop Date Active QS 30 day supply Humalog KwikPen 200 unit/mL (3 mL) subcutaneous RxNorm: 2398902 10 Unit(s) SQ AC 06/13/2016 10/29/2016 Inactive QS 30 day supply Basaglar KwikPen 100 unit/mL (3 mL) subcutaneous RxNorm: 6765131 22 units in the morning and 35 in the evening. Unit(s) SQ 06/13/2016 10/29/2016 Inactive QS 30 day supply Tivorbex 20 mg capsule RxNorm: 1760832 1 Capsule(s) PO TID as needed 06/13/2016 06/13/2016 Inactive metoprolol succinate ER 100 mg tablet,extended release 24 hr RxNorm: 159530 TAKE ONE TABLET BY MOUTH ONCE DAILY 06/13/2016 10/10/2016 Inactive hydrocodone 7.5 mg-acetaminophen 325 mg tablet RxNorm: 452905 1 Tablet(s) PO Q4H as needed 06/13/2016 07/11/2016 Inactive Voltaren 1 % topical gel RxNorm: 940529 APPLY TOPICALLY TO AFFECTED AREA TWICE DAILY 05/30/2016 07/08/2016 Inactive alprazolam 0.5 mg tablet RxNorm: 233271 1 Tablet(s) PO Q8 as needed 05/19/2016 No Stop Date Active cyclobenzaprine 10 mg tablet RxNorm: 616215 1 Tablet(s) PO PRN as needed 05/19/2016 05/28/2016 Inactive bumetanide 1 mg tablet RxNorm: 563507 TAKE ONE TABLET BY MOUTH TWICE DAILY 05/19/2016 06/17/2016 Inactive Sprintec (28) 0.25 mg-35 mcg tablet RxNorm: 367616 1 Tablet(s) PO UD 05/08/2016 No Stop Date Active Lantus Solostar 100 unit/mL (3 mL) subcutaneous insulin pen RxNorm: 522270 Unit( s) SQ UD 15units qam 30 units qhs 05/08/2016 No Stop Date Active Humalog KwikPen 200 unit/mL (3 mL) subcutaneous RxNorm: 6056985 10 Unit(s) SQ AC 05/08/2016 06/12/2016 Inactive bumetanide 1 mg tablet RxNorm: 576288 TAKE ONE TABLET BY MOUTH TWICE DAILY 04/28/2016 05/18/2016 Inactive Voltaren 1 % topical gel RxNorm: 606748 1 Application TOP BID 04/28/2016 05/07/2016 Inactive cyclobenzaprine 10 mg tablet RxNorm: 888526 1 Tablet(s) PO PRN as needed 04/28/2016 05/07/2016 Inactive hydrocodone 7.5 mg-acetaminophen 325 mg tablet RxNorm: 045261 1 Tablet(s) PO Q4H as needed 04/18/2016 05/16/2016 Inactive Lantus Solostar 100 unit/mL (3 mL) subcutaneous insulin pen RxNorm: 750389 Unit( s) SQ UD 10 units QHS x5 days, if sugars are over 200 increase to 15 units x 5 days, if sugars over 200 increase to 20 units. 04/14/2016 05/07/2016 Inactive lidocaine 4 % topical patch RxNorm: 6082663 1 Patch TOP on for 12 hours and off for 12 hours 04/13/2016 11/13/2016 Inactive Voltaren 1 % topical gel RxNorm: 236244 1 Application TOP BID 04/10/2016 04/27/2016 Inactive metformin ER 500 mg 24 hr tablet,extended release RxNorm: 482485 1 Tablet(s) PO daily 04/06/2016 05/05/2016 Inactive Kenalog 40 mg/mL suspension for injection RxNorm: 3862593 1 Milliliter(s) Inj 04/06/2016 04/06/2016 Inactive cyclobenzaprine 10 mg tablet RxNorm: 258842 1 Tablet(s) PO PRN as needed 04/06/2016 04/27/2016 Inactive WelChol 3.75 gram oral powder packet RxNorm: 244557 1 packet PO daily 04/06/2016 07/04/2016 Inactive alprazolam 0.5 mg tablet RxNorm: 367905 1 Tablet(s) PO Q8 as needed 03/30/2016 06/19/2017 Inactive Levaquin 500 mg tablet RxNorm: 448279 1 Tablet(s) PO daily 04/05/2016 Inactive metoprolol succinate ER 100 mg tablet,extended release 24 hr RxNorm: 979097 TAKE ONE TABLET BY MOUTH ONCE DAILY 03/16/2016 06/12/2016 Inactive Levaquin 500 mg tablet RxNorm: 263202 1 Tablet(s) PO daily 03/14/2016 Inactive prednisone 20 mg tablet RxNorm: 892340 2 Tablet(s) PO daily 03/12/2016 Inactive Xopenex HFA 45 mcg/actuation aerosol inhaler RxNorm: 057516 1 Puff(s) INH PRN 02/28/2016 06/13/2016 Inactive Phenergan with Codeine Syrup RxNorm: 5-10 ML PO QID as needed cough 02/28/2016 03/18/2018 Inactive Kenalog 40 mg/mL suspension for injection RxNorm: 3320626 1 Milliliter(s) Inj 02/28/2016 02/28/2016 Inactive Zithromax Z-Rashid 250 mg tablet RxNorm: 929240 1 Tablet(s) PO UD 02/28/2016 03/27/2016 Inactive alprazolam 0.5 mg tablet RxNorm: 644342 1 Tablet(s) PO Q8 as needed 02/24/2016 06/19/2017 Inactive glipizide 5 mg tablet RxNorm: 980872 1 Tablet(s) PO daily 201505/16/2016 Inactive Actos 15 mg tablet RxNorm: 941519 1 Tablet(s) PO daily 201502/16/2016 Inactive gabapentin 100 mg capsule RxNorm: 148207 1 Capsule(s) PO QHS 03/12/2016 Inactive gabapentin 100 mg capsule RxNorm: 952576 1 Capsule(s) PO QHS 01/12/2016 Inactive Bydureon 2 mg/0.65 mL subcutaneous pen injector RxNorm: 8003601 1 Milliliter(s) SQ QW 01/12/2016 01/11/2016 Inactive Bydureon 2 mg/0.65 mL subcutaneous pen injector RxNorm: 3781075 2/0.65ml Milligram (s) SQ QW 01/12/2016 05/16/2016 Inactive Bydureon 2 mg/0.65 mL subcutaneous pen injector RxNorm: 2329562 1 Milliliter(s) SQ QW 01/12/2016 01/11/2016 Inactive bumetanide 1 mg tablet RxNorm: 935411 TAKE ONE TABLET BY MOUTH TWICE DAILY 01/10/2016 04/08/2016 Inactive promethazine 25 mg tablet RxNorm: 996737 Tablet(s) Tablet(s) 1 Tablet(s) PO Q6-8H as needed 12/16/2015 04/13/2016 Inactive promethazine 25 mg tablet RxNorm: 197716 Tablet(s) 1 Tablet(s) PO Q6-8H as needed 12/10/2015 12/15/2015 Inactive Trulicity 0.75 mg/0.5 mL subcutaneous pen injector RxNorm: 9058496 INJECT ONE- HALF ML SUBCUTANEOUSLY ONCE A WEEK 12/10/2015 01/11/2016 Inactive glipizide 5 mg tablet RxNorm: 358087 1 Tablet(s) PO daily 201501/17/2016 Inactive bumetanide 1 mg tablet RxNorm: 748922 TAKE ONE TABLET BY MOUTH TWICE DAILY 12/10/2015 01/08/2016 Inactive promethazine 25 mg tablet RxNorm: 648272 Tablet(s) 1 Tablet(s) PO Q6-8H as needed 11/18/2015 12/09/2015 Inactive promethazine 25 mg tablet RxNorm: 931886 1 Tablet(s) PO Q6-8H as needed 11/16/2015 11/17/2015 Inactive glipizide 5 mg tablet RxNorm: 403748 1/2 Tablet(s) PO daily 12/15/2015 Inactive promethazine 25 mg tablet RxNorm: 316155 Tablet(s) 1 Tablet(s) PO Q6-8H as needed 11/11/2015 12/10/2015 Inactive metoprolol tartrate 50 mg tablet RxNorm: 515550 1 Tablet(s) PO BID 11/11/2015 02/08/2016 Inactive Trulicity 0.75 mg/0.5 mL subcutaneous pen injector RxNorm: 2130540 .5 Milliliter(s ) SQ QW 11/11/2015 01/11/2016 Inactive promethazine 25 mg tablet RxNorm: 901312 1 Tablet(s) PO Q6-8H as needed 10/28/2015 11/10/2015 Inactive nystatin 100,000 unit/gram topical cream RxNorm: 228100 1 Gram(s) TOP BID 10/27/2015 No Stop Date Active alprazolam 0.5 mg tablet RxNorm: 753215 1 Tablet(s) PO Q8 as needed 10/27/2015 03/29/2016 Inactive hydrocodone 7.5 mg-acetaminophen 325 mg tablet RxNorm: 508574 1 Tablet(s) PO Q4H as needed 10/27/2015 11/25/2015 Inactive Trulicity 0.75 mg/0.5 mL subcutaneous pen injector RxNorm: 1544129 .5 Milliliter(s ) SQ QW 10/27/2015 11/10/2015 Inactive glipizide 5 mg tablet RxNorm: 815949 1 Tablet(s) PO daily 201511/25/2015 Inactive hydrocodone 7.5 mg-acetaminophen 325 mg tablet RxNorm: 276598 1 Tablet(s) PO Q4H as needed 10/26/2015 10/26/2015 Inactive alprazolam 0.5 mg tablet RxNorm: 835697 1 Tablet(s) PO PRN as needed 10/26/2015 10/26/2015 Inactive promethazine 25 mg tablet RxNorm: 750444 1 Tablet(s) PO Q6-8H as needed 10/26/2015 11/15/2015 Inactive glipizide 5 mg tablet RxNorm: 203348 1/2 Tablet(s) PO daily 10/26/2015 Inactive cefdinir 300 mg capsule RxNorm: 075841 1 Capsule(s) PO BID 10/14/2015 Inactive prednisone 20 mg tablet RxNorm: 606825 2 Tablet(s) PO daily 10/09/2015 Inactive Diflucan 150 mg tablet RxNorm: 487684 1 Tablet(s) PO daily 10/11/2015 Inactive Invokamet 50 mg-500 mg tablet RxNorm: 2906410 1 Tablet(s) PO daily 10/05/2015 11/03/2015 Inactive alprazolam 0.5 mg tablet RxNorm: 960386 1 Tablet(s) PO PRN as needed 10/01/2015 02/23/2016 Inactive promethazine 25 mg tablet RxNorm: 419630 1 Tablet(s) PO Q6-8H as needed 09/30/2015 10/25/2015 Inactive bumetanide 1 mg tablet RxNorm: 955288 TAKE ONE TABLET BY MOUTH TWICE DAILY 09/30/2015 10/29/2015 Inactive bumetanide 1 mg tablet RxNorm: 690543 TAKE ONE TABLET BY MOUTH TWICE DAILY 09/20/2015 12/18/2015 Inactive bumetanide 1 mg tablet RxNorm: 980990 1 Tablet(s) PO BID 201510/19/2015 Inactive metoprolol succinate ER 100 mg tablet,extended release 24 hr RxNorm: 377214 1 Tablet(s) PO daily 09/16/2015 03/13/2016 Inactive spironolactone 50 mg tablet RxNorm: 963158 1 Tablet(s) PO BID 09/16/2015 03/13/2016 Inactive alprazolam 0.5 mg tablet RxNorm: 157256 1 Tablet(s) PO PRN as needed 09/16/2015 10/25/2015 Inactive hydrocodone 7.5 mg-acetaminophen 325 mg tablet RxNorm: 702629 1 Tablet(s) PO Q4H as needed 09/16/2015 10/25/2015 Inactive Invokamet 50 mg-1,000 mg tablet RxNorm: 5227382 1 Tablet(s) PO daily 09/06/2015 09/05/2015 Inactive Invokamet 50 mg-1,000 mg tablet RxNorm: 6953600 1 Tablet(s) PO daily 09/06/2015 12/04/2015 Inactive promethazine 25 mg tablet RxNorm: 230813 TAKE ONE TABLET BY MOUTH EVERY 6 TO 8 HOURS NEEDED 09/01/2015 09/16/2015 Inactive promethazine 25 mg tablet RxNorm: 892909 1 Tablet(s) PO Q6-8H as needed 08/27/2015 09/25/2015 Inactive metoprolol succinate ER 100 mg tablet,extended release 24 hr RxNorm: 467002 1 Tablet(s) PO daily 08/20/2015 09/15/2015 Inactive bumetanide 1 mg tablet RxNorm: 408344 1 Tablet(s) PO BID 201509/18/2015 Inactive Bumex 1 mg tablet RxNorm: 866092 1 Tablet(s) PO BID 201511/15/2015 Inactive Kenalog 40 mg/mL suspension for injection RxNorm: 0052071 Milliliter(s) Inj 08/20/2015 08/20/2015 Inactive bumetanide 1 mg tablet RxNorm: 562467 1 Tablet(s) PO BID 201508/19/2015 Inactive Levaquin 500 mg tablet RxNorm: 249143 1 Tablet(s) PO daily 09/201508/26/2015 Inactive promethazine 25 mg tablet RxNorm: 701221 1 Tablet(s) PO Q6-8H as needed 08/06/2015 08/26/2015 Inactive metformin 500 mg tablet RxNorm: 517760 Tablet(s) PO 500mg in the morning and 1000mg at night No Start Date 09/16/2015 Inactive Lantus Solostar 100 unit/mL (3 mL) subcutaneous insulin pen RxNorm: 402567 Unit( s) SQ UD 10 units QHS x 5 days, if blood sugars are above 200 increase to 15 units x 5 days, if still 200 increase to 20 units. No Start Date 04/13/2016 Inactive alprazolam 0.5 mg tablet RxNorm: 542998 1 Tablet(s) PO PRN as needed No Start Date 09/15/2015 Inactive cyclobenzaprine 10 mg tablet RxNorm: 727712 1 Tablet(s) PO PRN as needed No Start Date 04/05/2016 Inactive lidocaine 4 % topical patch RxNorm: 5302741 1 Patch TOP on for 12 hours and off for 12 hours No Start Date 04/12/2016 Inactive metoprolol tartrate 50 mg tablet RxNorm: 877458 1 Tablet(s) PO BID No Start Date 11/10/2015 Inactive spironolactone 50 mg tablet RxNorm: 084436 1 Tablet(s) PO BID No Start Date 09/15/2015 Inactive hydrocodone 7.5 mg-acetaminophen 325 mg tablet RxNorm: 965968 1 Tablet(s) PO Q4H as needed No Start Date 09/15/2015 Inactive promethazine 25 mg tablet RxNorm: 729040 1 Tablet(s) PO PRN as needed No Start Date 08/05/2015 Inactive Medication Administered Medication Codes Instructions Start Date Status ceftriaxone 500 mg solution for injection RxNorm: 2549962 06/05/2018 No longer Active Kenalog 40 mg/mL suspension for injection RxNorm: 6377770 15.Milliliter 02/19/2018 No longer Active Kenalog 40 mg/mL suspension for injection RxNorm: 3290176 Milliliter 09/05/2017 No longer Active Kenalog 40 mg/mL suspension for injection RxNorm: 5103901 1Milliliter 04/24/2017 No longer Active Kenalog 40 mg/mL suspension for injection RxNorm: 8301758 Milliliter 01/09/2017 No longer Active Kenalog 40 mg/mL suspension for injection RxNorm: 5612438 1Milliliter 04/06/2016 No longer Active Kenalog 40 mg/mL suspension for injection RxNorm: 2443707 1Milliliter 02/28/2016 No longer Active Kenalog 40 mg/mL suspension for injection RxNorm: 6836135 Milliliter 08/20/2015 No longer Active Immunizations Vaccine [...] Code Item Item Code Result Date %Hba1C Fcj846 % HbA1c 35859-4 8.4 % 06/06/2018 %Hba1C [id number] Gluc Ave 194 mg/dL 06/06/2018 Lipid Ord30 CHOL 233 mg/dL 03/14/2018 Lipid Ord30 HDL 38.0 mg/dl 03/14/2018 Lipid Ord30 TRIG 143 mg/dL 03/14/2018 Lipid Ord30 LDL 166 mg/dL 03/14/2018 Lipid Ord30 C/HDL 6.1 Ratio 03/14/2018 %Hba1C Lzc057 % HbA1c 56449-8 9.8 % 03/14/2018 %Hba1C Qij489 Gluc Ave 235 mg/dL 03/14/2018 Tsh Ord6 TSH (3rd IS) 1.09 uIU/mL 03/14/2018 Comp Metabolic Pqe691 NA 137 mEq/L 03/14/2018 Comp Metabolic Nbg477 K 4.6 mEq/L 03/14/2018 Comp Metabolic Pxa634 CL 100 mEq/L 03/14/2018 Comp Metabolic Slp989 CO2 27.0 mEq/L 03/14/2018 Comp Metabolic Fol543 ANION GAP 15 03/14/2018 Comp Metabolic Tgw013 GLUCOSE 144 mg/dL 03/14/2018 Comp Metabolic Ipb544 Creat 0.5 mg/dL 03/14/2018 Comp Metabolic Mfy897 eGFR 138 ml/min/1.73m2 03/14/2018 Comp Metabolic Etn823 BUN 9 mg/dL 03/14/2018 Comp Metabolic Bec832 B/C Ratio 17.6 Ratio 03/14/2018 Comp Metabolic Qcf067 CALCIUM 10.0 mg/dL 03/14/2018 Comp Metabolic Ede732 ALK PHOS 102 U/L 03/14/2018 Comp Metabolic Nod977 AST(SGOT) 31 U/L 03/14/2018 Comp Metabolic Lxi624 ALT(SGPT) 41 U/L 03/14/2018 Comp Metabolic Nkf630 BILI T 0.5 mg/dL 03/14/2018 Comp Metabolic Grc795 ALBUMIN 4.3 g/dL 03/14/2018 Comp Metabolic Sqp607 TPRO 6.8 g/dL 03/14/2018 Comp Metabolic Jpv182 GLOB 2.5 g/dL 03/14/2018 Comp Metabolic Ygd710 A/G Ratio 1.8 Ratio 03/14/2018 Comp Metabolic Kbk043 Osmo 275 mOsmo 03/14/2018 Cbc With Differential [...] 90.5 fl 03/14/2018 Cbc With Differential Ord2 [place]% 5.6 % 03/14/2018 Cbc With Differential Ord2 [...] 4.31 K/ul 03/14/2018 Cbc With Differential Ord2 [place] ABS# 0.9 K/ul 03/14/2018 Cbc With Differential Ord2 E[place] ABS# 0.2 K/ul 03/14/2018 Cbc With Differential Ord2 Baso ABS# 0.1 K/ul 03/14/2018 %Hba1C Oon602 % HbA1c 41313-4 8.8 % 06/13/2017 %Hba1C Gao324 Gluc Ave 206 mg/dL 06/13/2017 Tsh Ord6 [...] 30.2 pg 06/13/2017 Cbc With Differential Ord2 [place]% 4.9 % 06/13/2017 Cbc With Differential Ord2 [...] 3.21 K/ul 06/13/2017 Cbc With Differential Ord2 [place] ABS# 0.7 K/ul 06/13/2017 Cbc With Differential Ord2 Eos ABS# 0.2 K/ul 06/13/2017 Cbc With Differential Ord2 Baso ABS# 0.1 K/ul 06/13/2017 Lipid Ord30 CHOL 219 mg/dL 06/13/2017 Lipid Ord30 HDL 40.0 mg/dl 06/13/2017 Lipid Ord30 TRIG 200 mg/dL 06/13/2017 Lipid Ord30 LDL 139 mg/dL 06/13/2017 Lipid Ord30 C/HDL 5.5 Ratio 06/13/2017 Comp Metabolic Okb642 NA 139 mEq/L 06/13/2017 Comp Metabolic Zyg045 K 4.4 mEq/L 06/13/2017 Comp Metabolic Kuk212 CL 100 mEq/L 06/13/2017 Comp Metabolic Zhx815 CO2 29.0 mEq/L 06/13/2017 Comp Metabolic Oyq716 ANION GAP 14 06/13/2017 Comp Metabolic Jbc149 GLUCOSE 257 mg/dL 06/13/2017 Comp Metabolic Zmf618 Creat 0.5 mg/dL 06/13/2017 Comp Metabolic Udm286 eGFR 145 ml/min/1.73m2 06/13/2017 Comp Metabolic Frz341 BUN 13 mg/dL 06/13/2017 Comp Metabolic Pdj061 B/C Ratio 26.5 Ratio 06/13/2017 Comp Metabolic Qfv381 CALCIUM 9.7 mg/dL 06/13/2017 Comp Metabolic Xnn695 ALK PHOS 98 U/L 06/13/2017 Comp Metabolic Npj756 AST(SGOT) 30 U/L 06/13/2017 Comp Metabolic Cmh933 ALT(SGPT) 43 U/L 06/13/2017 Comp Metabolic Crs124 BILI T 0.5 mg/dL 06/13/2017 Comp Metabolic Yov761 ALBUMIN 4.0 g/dL 06/13/2017 Comp Metabolic Eyw382 TPRO 6.4 g/dL 06/13/2017 Comp Metabolic Rnh602 GLOB 2.4 g/dL 06/13/2017 Comp Metabolic Uwu248 A/G Ratio 1.7 Ratio 06/13/2017 Comp Metabolic Gkg414 Osmo 286 mOsmo 06/13/2017 %Hba1C Oma193 % HbA1c 88948-1 11.1 % 2016 %Hba1C Otn683 Gluc Ave 272 mg/dL 2016 C-Reactive Protein Qnt Crqnt CRP 4.7 mg/dl 2016 Comp Metabolic Etd487 NA 136 mEq/L 2016 Comp Metabolic Ixw882 K 4.1 mEq/L 2016 Comp Metabolic Kie516 CL 96 mEq/L 2016 Comp Metabolic Ttj719 CO2 29.0 mEq/L 2016 Comp Metabolic Gcb383 ANION GAP 15 2016 Comp Metabolic Lev526 GLUCOSE 291 mg/dL 2016 Comp Metabolic Vke502 Creat 0.4 mg/dL 2016 Comp Metabolic Rzo076 eGFR 165 ml/min/1.73m2 2016 Comp Metabolic Tlv863 BUN 11 mg/dL 2016 Comp Metabolic Gfs742 B/C Ratio 25.0 Ratio 2016 Comp Metabolic Fvk075 CALCIUM 9.4 mg/dL 2016 Comp Metabolic Sxm160 ALK PHOS 111 U/L 2016 Comp Metabolic Mmd847 AST(SGOT) 46 U/L 2016 Comp Metabolic Wjf120 ALT(SGPT) 60 U/L 2016 Comp Metabolic Efy259 BILI T 0.4 mg/dL 2016 Comp Metabolic Shi848 ALBUMIN 4.0 g/dL 2016 Comp Metabolic Tzn709 TPRO 6.5 g/dL 2016 Comp Metabolic Lpp703 GLOB 2.6 g/dL 2016 Comp Metabolic Ftn841 A/G Ratio 1.5 Ratio 2016 Comp Metabolic Igy615 Osmo 282 mOsmo 2016 Cbc With Differential [...] 30.5 pg 2016 Cbc With Differential Ord2 [place]% 4.7 % 2016 Cbc With Differential Ord2 [...] 3.53 K/ul 2016 Cbc With Differential Ord2 [place] ABS# 0.7 K/ul 2016 Cbc With Differential Ord2 Eos ABS# 0.2 K/ul 2016 Cbc With Differential Ord2 Baso ABS# 0.1 K/ul 2016 Lipid Ord30 CHOL 228 mg/dL 05/05/2016 Lipid Ord30 HDL 42.0 mg/dl 05/05/2016 Lipid Ord30 TRIG 168 mg/dL 05/05/2016 Lipid Ord30 LDL 152 mg/dL 05/05/2016 Lipid Ord30 C/HDL 5.4 Ratio 05/05/2016 Comp Metabolic Udd196 NA 135 mEq/L 05/05/2016 Comp Metabolic Fxc458 K 4.1 mEq/L 05/05/2016 Comp Metabolic Osl800 CL 99 mEq/L 05/05/2016 Comp Metabolic Jut853 CO2 29.0 mEq/L 05/05/2016 Comp Metabolic Fpz088 ANION GAP 11 05/05/2016 Comp Metabolic Hte687 GLUCOSE 229 mg/dL 05/05/2016 Comp Metabolic Sml610 Creat 0.5 mg/dL 05/05/2016 Comp Metabolic Bvl032 eGFR 150 ml/min/1.73m2 05/05/2016 Comp Metabolic Vib672 BUN 14 mg/dL 05/05/2016 Comp Metabolic Olz911 B/C Ratio 29.2 Ratio 05/05/2016 Comp Metabolic Zfq032 CALCIUM 9.1 mg/dL 05/05/2016 Comp Metabolic Thd290 ALK PHOS 112 U/L 05/05/2016 Comp Metabolic Uhx847 AST(SGOT) 59 U/L 05/05/2016 Comp Metabolic Twi684 ALT(SGPT) 63 U/L 05/05/2016 Comp Metabolic Ojv612 BILI T 0.7 mg/dL 05/05/2016 Comp Metabolic Jab245 ALBUMIN 3.8 g/dL 05/05/2016 Comp Metabolic Rmc986 TPRO 6.5 g/dL 05/05/2016 Comp Metabolic Chl426 GLOB 2.7 g/dL 05/05/2016 Comp Metabolic Fwd429 A/G Ratio 1.4 Ratio 05/05/2016 Comp Metabolic Pff816 Osmo 278 mOsmo 05/05/2016 Cbc With Differential [...] 30.2 pg 05/05/2016 Cbc With Differential Ord2 [place]% 4.4 % 05/05/2016 Cbc With Differential Ord2 [...] 3.59 K/ul 05/05/2016 Cbc With Differential Ord2 [place] ABS# 0.7 K/ul 05/05/2016 Cbc With Differential Ord2 E[place] ABS# 0.1 K/ul 05/05/2016 Cbc With Differential Ord2 Baso ABS# 0.1 K/ul 05/05/2016 %Hba1C Rre921 % HbA1c 87810-5 10.4 % 05/05/2016 %Hba1C Nus119 Gluc Ave 252 mg/dL 05/05/2016 Hcg Beta Subunit Qual Serum 012134 B-HCG QUALITATIVE NEGATIVE 12/27/2015 GC/CHL PRB 7587751 Chl trach DNA Negative 12/25/2015 GC/CHL PRB 2207597 GC PROBE Negative 12/25/2015 Comp. Metabolic Panel (14) 97686 GLUCOSE 136 mg/dL 12/17/2015 Comp. Metabolic Panel (14) 86710 BUN 9 mg/dL 12/17/2015 Comp. Metabolic Panel (14) 97506 CREATININE 0.67 mg/dL 12/17/2015 Comp. Metabolic Panel (14) 09956 SODIUM 136 mmol/L 12/17/2015 Comp. Metabolic Panel (14) 26100 POTASSIUM 4.4 mmol/L 12/17/2015 Comp. Metabolic Panel (14) 81405 CHLORIDE 95 mmol/L 06/2015 Comp. Metabolic Panel (14) 80053 CARBON DIOXIDE 28 mmol/L 06/2015 Comp. Metabolic Panel (14) 36430 CALCIUM 10.1 mg/dL 2015 Comp. Metabolic Panel (14) 73559 TOTAL PROTEIN 7.0 g/dL 12/16 Comp. Metabolic Panel (14) 79353 ALBUMIN 4.5 g/dL 12/17/2015 Comp. Metabolic Panel (14) 64377 ALKALINE PHOSPHATASE 87 U/L 12/17/2015 Comp. Metabolic Panel (14) 78094 TOTAL BILIRUBIN 0.5 mg/dL Comp. Metabolic Panel (14) 08413 SGOT ( AST) 38 U/L 2015 Comp. Metabolic Panel (14) 81510 SGPT ( ALT) 41 U/L 2015 Comp. Metabolic Panel (14) 75151 eGFR (mL /min/1.73m2) >60 06/2015 Comp. Metabolic Panel (14) 00479 12/17/2015 Cbc With Differential/Platelet 44131 WBC 16.67 thou/uL 2015 Cbc With Differential/Platelet 50231 RBC 5.11 mil/uL 2015 Cbc With Differential/Platelet 45695 HEMOGLOBIN 14.8 g/dL 12/17/2015 Cbc With Differential/Platelet 94858 HEMATOCRIT 48.7 % 06/2015 Cbc With Differential/Platelet 95093 MCV 95.4 fL 12/17/2015 Cbc With Differential/Platelet 21778 MCH 29.0 pg 12/17/2015 Cbc With Differential/Platelet 04073 MCHC 30.4 g/dL 2015 Cbc With Differential/Platelet 54757 RDW- CV 14.6 % 12/17/2015 Cbc With Differential/Platelet 88586 PLATELET COUNT 471 thou/uL 12/17/2015 Cbc With Differential/Platelet 10501 NEUTROPHIL % 71.3 % Cbc With Differential/Platelet 32736 LYMPHOCYTE % 22.4 % Cbc With Differential/Platelet 89964 MONOCYTE % 4.8 % 12/16 Cbc With Differential/Platelet 49382 EOS % 0.7 % 12/17/2015 Cbc With Differential/Platelet 00733 BASO % 0.7 % 2015 Cbc With Differential/Platelet 04539 NEUTROPHIL ABS # 11.89 thou/uL 12/17/2015 Cbc With Differential/Platelet 46724 LYMPH ABS # 3.73 thou/uL 12/17/2015 Cbc With Differential/Platelet 50090 MONOCYTE ABS # 0.80 thou/uL 12/17/2015 Cbc With Differential/Platelet 03546 EOS ABS # 0.12 thou/uL 06/2015 Cbc With Differential/Platelet 88874 BASO ABS # 0.12 thou/uL 12/17/2015 Comp. [...] Hgb A1C With Eag Estimation GLYCOHEMOGLOBIN A1C 03265-6 8.1 % 11/13/2015 Hgb A1C With Eag Estimation ESTIMATED AVG GLUCOSE 186 mg/dL 11/13/2015 Comp. Metabolic Panel (14) 95249 GLUCOSE 84 mg/dL 09/11/2015 Comp. Metabolic Panel (14) 86153 BUN 11 mg/dL 09/11/2015 Comp. Metabolic Panel (14) 44844 CREATININE 0.56 mg/dL 09/11/2015 Comp. Metabolic Panel (14) 89402 SODIUM 142 mmol/L 09/11/2015 Comp. Metabolic Panel (14) 72310 POTASSIUM 4.3 mmol/L 09/11/2015 Comp. Metabolic Panel (14) 49645 CHLORIDE 98 mmol/L Comp. Metabolic Panel (14) 83810 CARBON DIOXIDE 27 mmol/L Comp. Metabolic Panel (14) 98673 CALCIUM 10.1 mg/dL 2015 Comp. Metabolic Panel (14) 84993 TOTAL PROTEIN 7.2 g/dL 09/10 Comp. Metabolic Panel (14) 95261 ALBUMIN 4.7 g/dL 09/11/2015 Comp. Metabolic Panel (14) 78136 ALKALINE PHOSPHATASE 109 U/L 09/11/2015 Comp. Metabolic Panel (14) 76746 TOTAL BILIRUBIN 0.3 mg/dL Comp. Metabolic Panel (14) 99039 SGOT ( AST) 53 U/L 2015 Comp. Metabolic Panel (14) 26919 SGPT ( ALT) 53 U/L 2015 Comp. Metabolic Panel (14) 21939 eGFR (mL /min/1.73m2) >60 Comp. Metabolic Panel (14) 61193 09/11/2015 Comp. Metabolic Panel (14) 73593 GLUCOSE 183 mg/dL 08/11/2015 Comp. Metabolic Panel (14) 73695 BUN 10 mg/dL 08/11/2015 Comp. Metabolic Panel (14) 68959 CREATININE 0.46 mg/dL 08/11/2015 Comp. Metabolic Panel (14) 58709 SODIUM 138 mmol/L 08/11/2015 Comp. Metabolic Panel (14) 27579 POTASSIUM 4.0 mmol/L 08/11/2015 Comp. Metabolic Panel (14) 27927 CHLORIDE 98 mmol/L Comp. Metabolic Panel (14) 12464 CARBON DIOXIDE 29 mmol/L Comp. Metabolic Panel (14) 89348 CALCIUM 9.4 mg/dL 08/11/2015 Comp. Metabolic Panel (14) 55161 TOTAL PROTEIN 6.8 g/dL 08/11 Comp. Metabolic Panel (14) 44658 ALBUMIN 4.4 g/dL 08/11/2015 Comp. Metabolic Panel (14) 07624 ALKALINE PHOSPHATASE 118 U/L 08/11/2015 Comp. Metabolic Panel (14) 43929 TOTAL BILIRUBIN <0.3 mg/dL 08/11/2015 Comp. Metabolic Panel (14) 33521 SGOT ( AST) 41 U/L 2015 Comp. Metabolic Panel (14) 35503 SGPT ( ALT) 55 U/L 2015 Comp. Metabolic Panel (14) 49907 eGFR (mL /min/1.73m2) >60 Comp. Metabolic Panel (14) 14493 08/11/2015 Cbc With Differential/Platelet 63436 WBC 11.76 thou/uL 2015 Cbc With Differential/Platelet 86567 RBC 4.98 mil/uL 2015 Cbc With Differential/Platelet 25257 HEMOGLOBIN 14.2 g/dL 08/11/2015 Cbc With Differential/Platelet 34380 HEMATOCRIT 46.7 % Cbc With Differential/Platelet 54563 MCV 93.8 fL 08/11/2015 Cbc With Differential/Platelet 39381 MCH 28.5 pg 08/11/2015 Cbc With Differential/Platelet 13474 MCHC 30.4 g/dL 2015 Cbc With Differential/Platelet 36614 RDW- CV 14.3 % 08/11/2015 Cbc With Differential/Platelet 63536 PLATELET COUNT 382 thou/uL 08/11/2015 Cbc With Differential/Platelet 25177 NEUTROPHIL % 67.3 % Cbc With Differential/Platelet 73106 LYMPHOCYTE % 24.0 % Cbc With Differential/Platelet 58322 MONOCYTE % 6.0 % 08/11 Cbc With Differential/Platelet 72682 EOS % 1.6 % 08/11/2015 Cbc With Differential/Platelet 52360 BASO % 1.0 % 2015 Cbc With Differential/Platelet 42713 NEUTROPHIL ABS # 7.91 thou/uL 08/11/2015 Cbc With Differential/Platelet 10826 LYMPH ABS # 2.82 thou/uL 08/11/2015 Cbc With Differential/Platelet 56640 MONOCYTE ABS # 0.71 thou/uL 08/11/2015 Cbc With Differential/Platelet 57181 EOS ABS # 0.19 thou/uL Cbc With Differential/Platelet 42677 BASO ABS # 0.12 thou/uL 08/11/2015 Tsh 694277 TSH 3.220 uIU/mL 08/11/2015 Lipid Panel 57490 CHOLESTEROL 193 mg/dL 08/11/2015 Lipid Panel 47146 TRIGLYCERIDES 192 mg/dL 08/11/2015 Lipid Panel 56824 HDL 38 mg/dL 08/11/2015 Lipid Panel 01988 CHOLESTEROL/HDL 5.08 08/11/2015 Lipid Panel 71285 LDL (CALCULATED) 117 mg/dL 08/11/2015 Lipid Panel 85422 LDL/HDL 3.08 08/11/2015 Lipid Panel 12165 PHENOTYPE TYPE IV BORDERLINE 08/11/2015 Review of [...] Procedure Codes Date THER/PROPH/DIAG INJ SC/IM CPT-4: 85307 06/05/2018 ROCEPHIN, PER 250 MG CPT-4: J0696 06/05/2018 REMOVAL OF SKIN TAGS <W/15 CPT-4: 55192 03/14/2018 FLU VAC NO PRSV 4 PRECIOUS 3 YRS+ CPT-4: 63951 03/14/2018 IMMUNIZATION ADMIN CPT -4: 93576 03/14/2018 TRIAMCINOLONE ACET INJ NOS CPT-4: J3301 02/19/2018 THER/PROPH/DIAG INJ SC/IM CPT-4: 91710 02/19/2018 THER/PROPH/DIAG INJ SC/IM CPT-4: 59697 09/05/2017 TRIAMCINOLONE ACET INJ NOS CPT-4: J3301 09/05/2017 IMMUNIZATION ADMIN CPT -4: 69440 04/24/2017 FLU VAC NO PRSV 4 PRECIOUS 3 YRS+ CPT-4: 16222 04/24/2017 DRAIN/INJECT JOINT/BURSA CPT-4: 62974 04/24/2017 TRIAMCINOLONE ACET INJ NOS CPT-4: J3301 04/24/2017 THER/PROPH/DIAG INJ SC/IM CPT-4: 41496 01/09/2017 TRIAMCINOLONE ACET INJ NOS CPT-4: J3301 01/09/2017 THER/PROPH/DIAG INJ SC/IM CPT-4: 63814 04/13/2016 Pneumococcal Polysaccharide Vaccine, 23-Valent, Ad CPT-4: 58991 04/13/2016 INJECT TRIGGER POINTS 3/> CPT-4: 53320 04/06/2016 TRIAMCINOLONE ACET INJ NOS CPT-4: J3301 04/06/2016 IMMUNIZATION ADMIN CPT -4: 29907 03/30/2016 IIV4 FLU VACC NO PRESERV ID SNOMED CT: [id number] CPT-4: 78875 03/30/2016 TRIAMCINOLONE ACET INJ NOS CPT-4: J3301 02/28/2016 THER/PROPH/DIAG INJ SC/IM CPT-4: 37317 02/28/2016 TRIAMCINOLONE ACET INJ NOS CPT-4: J3301 08/20/2015 Vital Signs Date Vital 06/05/2018 Blood Pressure 1: 127/74 Code : 8480-6 BMI: 42.4 Code : 06324-1 Heart Rate 1 : 78 bpm Height: 4'11" SpO2: 97% Weight: 210 lbs 03/26/2018 Blood Pressure 1: 128/74 Code : 8480-6 BMI: 43.0 Code : 32155-9 Heart Rate 1 : 120 bpm Height: 4'11 " SpO2: 97% Weight: 213 lbs 03/14/2018 Blood Pressure 1: 12074 Code : 8480-6 BMI: 43.0 Code : 29125-7 Heart Rate 1 : 114 bpm Height: 4'11 " SpO2: 95% Weight: 213 lbs 03/07/2018 Blood Pressure 1: 13274 Code : 8480-6 BMI: 43.8 Code : 90778-7 Heart Rate 1 : 123 bpm Height: [...] Code : 8480-6 BMI: 45.4 Code : 88014-4 Heart Rate 1 : 108 bpm Height: 4'11 " SpO2: 95% Weight: 225 lbs 06/07/2017 Blood Pressure 1: 13274 Code : 8480-6 Heart Rate 1: 99 bpm Height: 4'11" SpO2: 95% 04/24/2017 Blood Pressure 1: 132/8096 Code: 8480-6 BMI: 47.7 Code: 33219-4 Heart Rate 1: 96 bpm Height: 4'11" Weight: 236 lbs 01/09/2017 Blood Pressure 1: 122/74 Code : 8480-6 BMI: 46.0 Code : 91615-7 Heart Rate 1 : 114 bpm Height: 4'11 " SpO2: 98% Temperature: 37.1 (C) / 98.7 (F) Weight: 228 lbs 10/30/2016 Blood Pressure 1: 124/78 Code : 8480-6 BMI: 49.1 Code : 53023-7 Heart Rate 1 : 90 bpm Height: 4'11" SpO2: 97% Weight: 243 lbs 10/09/2016 Blood Pressure 1: 124/80 Code : 8480-6 BMI: 49.3 Code : 64970-3 Heart Rate 1 : 91 bpm Height: 4'11" SpO2: 98% Weight: 244 lbs 09/12/2016 Blood Pressure 1: 128/80 Code : 8480-6 BMI: 49.1 Code : 28352-1 Heart Rate 1 : 94 bpm Height: 4'11" SpO2: 95% Weight: 243 lbs 09/05/2016 Blood Pressure 1: 118/74 Code : 8480-6 BMI: 49.1 Code : 93062-0 Heart Rate 1 : 100 bpm Height: 4'11 " SpO2: 97% Weight: 243 lbs 06/16/2016 Blood Pressure 1: 120/62 Code : 8480-6 BMI: 49.1 Code : 42508-6 Heart Rate 1 : 100 bpm Height: 4'11 " SpO2: 96% Temperature: 36.7 (C) / 98.0 (F) Weight: 243 lbs 06/13/2016 Blood Pressure 1: 120/70 Code : 8480-6 Heart Rate 1: 117 bpm SpO2: 97% 05/19/2016 Blood Pressure 1: 130/64 Code : 8480-6 BMI: 49.1 Code : 55260-8 Heart Rate 1 : 101 bpm Height: 4'11 " SpO2: 96% Weight: 243 lbs 05/08/2016 Blood Pressure 1: 128/76 Code : 8480-6 Heart Rate 1: 119 bpm Height: SpO2: 97% Weight: 05/05/2016 Blood Pressure 1: 124/76 Code : 8480-6 BMI: 49.1 Code : 48861-8 Heart Rate 1 : 75 bpm Height: 4'11" SpO2: 99% Weight: 243 lbs 04/10/2016 Blood Pressure 1: 140/80 Code : 8480-6 BMI: 49.7 Code : 99530-0 Heart Rate 1 : 88 bpm Height: 4'11" SpO2: 95% Weight: 246 lbs 04/06/2016 Blood Pressure 1: 134/82 Code : 8480-6 BMI: 75.1 Code : 47647-7 Heart Rate 1 : 72 bpm Height: 4' SpO2: 96% Weight: 246 lbs 03/08/2016 Blood Pressure 1: 126/72 Code : 8480-6 BMI: 49.7 Code : 39348-7 Heart Rate 1 : 89 bpm Height: 4'11" SpO2: 97% Weight: 246 lbs 02/28/2016 Blood Pressure 1: 124/68 Code : 8480-6 BMI: 49.7 Code : 09402-3 Heart Rate 1 : 89 bpm Height: 4'11" SpO2: 96% Weight: 246 lbs 01/18/2016 Blood Pressure 1: 142/78 Code : 8480-6 BMI: 48.9 Code : 03060-0 Heart Rate 1 : 97 bpm Height: 4'11" SpO2: 97% Weight: 242 lbs 12/23/2015 Blood Pressure 1: 124/74 Code : 8480-6 BMI: 48.9 Code : 46262-9 Heart Rate 1 : 106 bpm Height: 4'11 " SpO2: 96% Weight: 242 lbs 12/16/2015 Blood Pressure 1: 116/82 Code : 8480-6 BMI: 48.3 Code : 96031-5 Heart Rate 1 : 111 bpm Height: 4'11 " SpO2: 97% Weight: 239 lbs 11/11/2015 Blood Pressure 1: 130/80 Code : 8480-6 BMI: 49.7 Code : 81649-8 Heart Rate 1 : 105 bpm Height: 4'11 " SpO2: 96% Weight: 246 lbs 10/27/2015 Blood Pressure 1: 122/70 Code : 8480-6 BMI: 49.5 Code : 75038-0 Heart Rate 1 : 107 bpm Height: 4'11 " SpO2: 96% Weight: 245 lbs 10/13/2015 Blood Pressure 1: 140/82 Code : 8480-6 BMI: 50.9 Code : 53947-9 Heart Rate 1 : 111 bpm Height: 4'11 " SpO2: 96% Weight: 252 lbs 10/05/2015 Blood Pressure 1: 118/70 Code : 8480-6 BMI: 51.1 Code : 75966-1 Heart Rate 1 : 120 bpm Height: 4'11 " SpO2: 97% Weight: 253 lbs 09/01/2015 Blood Pressure 1: 132/82 Code : 8480-6 BMI: 50.1 Code : 11391-0 Heart Rate 1 : 110 bpm Height: 4'11 " SpO2: 96% Weight: 248 lbs 08/20/2015 Blood Pressure 1: 132/78 Code : 8480-6 BMI: 51.7 Code : 50210-4 Heart Rate 1 : 100 bpm Height: 4'11 " Weight: 256 lbs 08/03/2015 Blood Pressure 1: 148/92 Code : 8480-6 BMI: 52.1 Code : 54563-3 Heart Rate 1 : 100 bpm Height: [...] mellitus with hyperglycemia[ICD10: E11.65] Gloria Hess MD, [facility] CPT-4: 72405 06/05/2018 99560 EST. PATIENT, LEVEL III Diagnosis: Gastro-esophageal reflux disease without esophagitis[ICD10: K21.9] Diagnosis: Other allergic rhinitis[ICD10: J30.89] Diagnosis: Cough[ICD10: R05] Gloria Hess MD, [facility] CPT-4: 77167 03/26/2018 ([id number]) 20251 EST. PATIENT, LEVEL III Diagnosis: Cough[ICD10: R05] Gloria Hess MD, [facility] CPT-4: 61592 03/14/2018 23207 EST. PATIENT, LEVEL IV Diagnosis: Acute laryngopharyngitis[ICD10: J06.0] Diagnosis: Other allergic rhinitis[ICD10: J30.89] Diagnosis: Cough[ICD10: R05] Gloria Hess MD, [facility] CPT-4: 65183 03/07/2018 51109 EST. PATIENT, LEVEL IV Diagnosis: Acute bronchitis due to other specified organisms[ICD10: J20.8] Diagnosis: Acute laryngopharyngitis[ICD10: J06.0] Gloria Hess MD, [facility] CPT-4: 82553 02/19/2018 92766 EST. PATIENT, LEVEL IV Diagnosis: Candidiasis of vulva and vagina[ICD10: B37.3] Diagnosis: Rash and other nonspecific skin eruption[ICD10: R21] Gloria Hess MD, [facility] CPT-4: 29195 01/08/2018 79129 EST. PATIENT, LEVEL III Diagnosis: Sacrococcygeal disorders, not elsewhere classified[ICD10: M53.3] Diagnosis: Low back pain[ICD10: M54.5] Gloria Hess MD, [facility] CPT-4 : 69470 11/23/2017 29972 EST. PATIENT, LEVEL III Diagnosis: Acute laryngopharyngitis[ICD10: J06.0] Diagnosis: Other allergic rhinitis[ICD10: J30.89] Diagnosis: Acute bronchitis due to other specified organisms[ICD10: J20.8] Gloria Hess MD, [facility] CPT-4: 94908 09/05/2017 23115 EST. PATIENT, LEVEL III Diagnosis: Pain in left foot[ICD10: M79.672] Diagnosis: Rash and other nonspecific skin eruption[ICD10: R21] Diagnosis: Candidiasis of vulva and vagina[ICD10: B37.3] Diagnosis: Localized edema[ICD10: R60.0] Diagnosis: Dyspnea, unspecified[ICD10: R06.00] Gloria Hess MD, [facility] CPT-4: 37626 06/07/2017 06877 EST. PATIENT, LEVEL III Diagnosis: Low back pain[ICD10: M54.5] Diagnosis: Sacroiliitis, not elsewhere classified[ICD10: M46.1] Diagnosis: Pain in left foot[ICD10: M79.672] Diagnosis: VACCIN FOR INFLUENZA[ICD10: Z23] Gloria Hess MD, [facility] CPT- 4: 87554 04/24/2017 68624 EST. PATIENT, LEVEL III Diagnosis: Acute suppurative otitis media without spontaneous rupture of ear drum, right ear[ICD10: H66.001] Diagnosis: Other allergic rhinitis[ICD10: J30.89] Gloria Hess MD, [facility] CPT-4: 50391 01/09/2017 66678 EST. PATIENT, LEVEL IV Diagnosis: Candidiasis of vulva and vagina[ICD10: B37.3] Diagnosis: Type 2 diabetes mellitus with hyperglycemia[ICD10: E11.65] Gloria Hess MD, [facility] CPT-4: 15762 10/30/2016 61182 EST. PATIENT, LEVEL III Diagnosis: Candidiasis of vulva and vagina[ICD10: B37.3] Diagnosis: Type 2 diabetes mellitus with hyperglycemia[ICD10: E11.65] Gloria Hess MD, [facility] CPT-4: 47283 10/09/2016 03330 EST. PATIENT, LEVEL IV Diagnosis: Umbilical hernia without obstruction or gangrene[ICD10: K42.9] Gloria Hess MD, [facility] CPT-4: 20178 09/12/2016 58547 EST. PATIENT, LEVEL III Diagnosis: Epigastric pain[ICD10: R10.13] Diagnosis: Candidiasis of vulva and vagina[ICD10: B37.3] Diagnosis: Type 2 diabetes mellitus with hyperglycemia[ICD10: E11.65] Gloria Hess MD, [facility] CPT-4: 43920 09/05/2016 92936 EST. PATIENT, LEVEL III Diagnosis: Acute laryngopharyngitis[ICD10: J06.0] Diagnosis: Other allergic rhinitis[ICD10: J30.89] Gloria Hess MD, [facility] CPT-4: 88682 06/16/2016 78076 EST. PATIENT, LEVEL III Diagnosis: Type 2 diabetes mellitus with hyperglycemia[ICD10: E11.65] Diagnosis: Other obesity due to excess calories[ICD10: E66.09] Gloria Hess MD, [facility] CPT-4: 81533 06/13/2016 84190 EST. PATIENT, LEVEL III Diagnosis: Type 2 diabetes mellitus with hyperglycemia[ICD10: E11.65] Diagnosis: Other obesity due to excess calories[ICD10: E66.09] Gloria Hess MD, [facility] CPT-4: 62491 05/19/2016 20203 EST. PATIENT, LEVEL III Diagnosis: Type 2 diabetes mellitus with hyperglycemia[ICD10: E11.65] Diagnosis: Other obesity due to excess calories[ICD10: E66.09] Gloria Hess MD, [facility] CPT-4: 13090 05/08/2016 50061 EST. PATIENT, LEVEL III Diagnosis: Type 2 diabetes mellitus without complications[ICD10: E11.9] Gloria Hess MD [facility] CPT-4: 36447 05/05/2016 83301 EST. PATIENT, LEVEL III Diagnosis: Pain in right shoulder[ICD10: M25.511] Gloria Hess MD [facility] CPT-4: 58048 04/10/2016 44337 EST. PATIENT, LEVEL III Diagnosis: Pain in right shoulder[ICD10: M25.511] Diagnosis: Other muscle spasm[ICD10: M62.838] Diagnosis: Type 2 diabetes mellitus without complications[ICD10: E11.9] Gloria Hess MD [facility] CPT-4: 95514 04/06/2016 84691 EST. PATIENT, LEVEL IV Diagnosis: Acute bronchitis due to other specified organisms[ICD10: J20.8] Diagnosis: Other acute sinusitis[ICD10: J01.80] Diagnosis: Acne vulgaris[ICD10: L70.0] Diagnosis: Morbid (severe) obesity due to excess calories[ICD10: E66.01] Gloria Hess MD , [facility] CPT-4: 70147 03/08/2016 16956 EST. PATIENT, LEVEL IV Diagnosis: Other acute sinusitis[ICD10: J01.80] Diagnosis: Localized enlarged lymph nodes[ICD10: R59.0] Gloria Hess MD, [facility] CPT-4: 05455 02/28/2016 32354 EST. PATIENT, LEVEL III Diagnosis: Type 2 diabetes mellitus without complications[ICD10: E11.9] Gloria Hess MD [facility] CPT-4: 98378 01/18/2016 (08625) PREV VISIT EST AGE 40-64 Diagnosis: Encounter for gynecological examination (general) (routine) without abnormal findings[ICD10: Z01.419] Diagnosis: Excessive and frequent menstruation with irregular cycle[ICD10: N92.1 ] Gloria Hess MD, [facility] CPT-4: 86620 12/23/2015 66411 EST. PATIENT, LEVEL III Diagnosis: Type 2 diabetes mellitus without complications[ICD10: E11.9] Gloria Hess MD [facility] CPT-4: 90960 12/16/2015 18363 EST. PATIENT, LEVEL III Diagnosis: Type 2 diabetes mellitus without complications[ICD10: E11.9] Diagnosis: Other obesity due to excess calories[ICD10: E66.09] Gloria Hess MD, [facility] CPT-4: 69705 11/11/2015 40379 EST. PATIENT, LEVEL III Diagnosis: Type 2 diabetes mellitus without complications[ICD10: E11.9] Diagnosis: Other obesity due to excess calories[ICD10: E66.09] Gloria Hess MD, [facility] CPT-4: 94456 10/27/2015 [id number] EST. PATIENT, LEVEL III Diagnosis: Type 2 diabetes mellitus without complications[ICD10: E11.9] Diagnosis: Other obesity due to excess calories[ICD10: E66.09] Diagnosis: Other insomnia[ICD10: G47.09] Gloria Hess MD, [facility] CPT-4 : 10639 10/13/2015 05925 EST. PATIENT, LEVEL IV Diagnosis: Acute recurrent maxillary sinusitis[ICD10: J01.01] Diagnosis: Allergic rhinitis due to pollen[ICD10: J30.1] Diagnosis: Other obesity due to excess calories[ICD10: E66.09] Gloria Hess MD, [facility] CPT-4: 30964 10/05/2015 60997 EST. PATIENT, LEVEL IV Diagnosis: Polycystic ovarian syndrome[ICD10: E28.2] Diagnosis: Other skin changes[ICD10: R23.8] Diagnosis: Other abnormal glucose[ICD10: R73.09] Gloria Hess MD, [facility] CPT-4: 48646 09/01/2015 18259 EST. PATIENT, LEVEL IV Diagnosis: Acute recurrent maxillary sinusitis[ICD10: J01.01] Diagnosis: Morbid (severe) obesity due to excess calories[ICD10: E66.01] Diagnosis: Essential (primary) hypertension[ICD10: I10] Diagnosis: Allergic rhinitis due to pollen[ICD10: J30.1] Gloria Hess MD, [facility] CPT-4: 19352 08/20/2015 ([id number]) OFFICE VISIT, NEW - LEVEL 4 Diagnosis: Essential (primary) hypertension[ICD10: I10] Diagnosis: Obstructive sleep apnea (adult) (pediatric)[ICD10: G47.33] Diagnosis: Other insomnia[ICD10: G47.09] Diagnosis: Snoring[ICD10: R06.83] Diagnosis: Morbid (severe) obesity due to excess calories[ICD10: E66.01] Gloria Hess MD , [facility] CPT-4: 06008 08/03/2015 Plan of Care Planned Activity Notes Codes Status Date Visit Plan: Abscess/Cellulitis - The patient was instructed in appropriate wound care. The patient was instructed to use the antibiotic ointment as per RX. The patient is to call for any change in symptoms , increase in size of the lesion, increase in pain, worsening redness, warmth, discharge. 06/05/2018 Appointment: Gloria Scott WPtel: [address] [place], [place] [phone] (30 min) Complex 06/05/2018 Patient Education: Patient Medication Summary Completed 06/05/2018 Patient Education: Diabetes Completed 06/05/2018 Referral: Wilner [address] Referral Initiated 04/19/2018 Care Plan: Referral Order SNOMED-CT : [id number] Pending 03/27/2018 Visit Plan: Esophageal Reflux - [...] allergy spray. 03/26/2018 Appointment: Gloria Scott WPtel: [address] [place], [place] [phone] (15 min) Moderate 03/26/2018 Patient Education: Patient Medication Summary Completed 03/26/2018 Appointment: Gloria Scott WPtel: [address] [place], [place] [phone] (15 min) Moderate 03/25/2018 Visit Plan: Skin [...] and bandaids. 03/14/2018 Appointment: Gloria Scott WPtel: [address] [place], [place] [id number] (15 min) Moderate 03/14/2018 Patient Education: Patient [...] improve 03/07/2018 Appointment: Gloria Scott WPtel: [phone] [facility]66[facility] (15 min) Moderate 03/07/2018 Patient Education: Patient [...] worsen. 02/19/2018 Appointment: Gloria Scott WPtel: [phone] [facility] (15 min) Moderate 02/19/2018 Patient Education: Patient [...] discharge. 01/08/2018 Appointment: Gloria Scott WPtel: [phone] [facility] (30 min) Complex 01/08/2018 Patient Education: Patient [...] acutely worsen. 09/05/2017 Appointment: Gloria Scott WPtel: [facility]66[facility] (15 min) Moderate 09/05/2017 Patient Education: [...] RX 06/07/2017 Appointment: Gloria Scott WPtel: [phone] [facility] [place] (15 min) Moderate 06/07/2017 Patient [...] of injection. 04/24/2017 Appointment: Gloria Scott WPtel: [facility]6 [facility] (30 min) Complex 04/24/2017 Patient Education: Patient Medication Summary Completed 04/24/2017 Appointment: Gloria Scott WPtel: [facility]4 [facility] (30 min) Complex 03/09/2017 Appointment: Gloria Scott WPtel: [facility] (30 min) Complex 02/13/2017 Visit Plan: [...] allergy spray. 01/09/2017 Appointment: Gloria Scott WPtel: [facility] (10 min) Simple 01/09/2017 Patient Education: Patient Medication Summary Completed 01/09/2017 Patient Education: Obesity Completed 01/09/2017 Visit Plan: Vaginal candidiasis - will send RX - pt is to notify clinic if symptoms do not improve, if they worsen, or with any questions or concerns. 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 10/09/2016 Appointment: Gloria Scott WPtel: [facility] (30 min) Complex 10/09/2016 Patient Education: Patient Medication Summary Completed 10/09/2016 Patient Education: Obesity Completed 10/09/2016 Referral: Roni Roberts Referral Completed 09/18/2016 Care Plan: CT ABD & PELV W/CONTRAST LOINC : 91629-5 Pending 09/13/2016 Care Plan: Referral Order SNOMED-CT : [id number] Pending 09/13/2016 Visit Plan: Ongoing abdominal pain/hernia - will send RX - will refer - pt is to notify clinic if symptoms do not improve, if they worsen, or with any questions or concerns. 09/12/2016 Appointment: Gloria Scott WPtel: [phone] [facility] (30 min) Complex 09/12/2016 Patient Education: Patient Medication Summary Completed 09/12/2016 Patient Education: Obesity Completed 09/12/2016 Care Plan: Referral Order SNOMED-CT : [id number] Pending 09/12/2016 Visit Plan: Ongoing abdominal/epigastric pain [...] glucose control. 09/05/2016 Appointment: Gloria Scott WPtel: [address] [place], [place] [phone] (30 min) Complex 09/05/2016 Patient Education: Patient [...] spray. 06/16/2016 Appointment: Gloria Scott WPtel: [phone] [facility] [place] (10 min) Simple 06/16/2016 Patient [...] check. 06/13/2016 Appointment: Gloria Scott WPtel: [phone] [facility] (30 min) Complex 06/13/2016 Patient Education: Patient Medication Summary Completed 06/13/2016 Patient Education: Obesity Completed 06/13/2016 Appointment: Gloria Scott WPtel: [phone] [facility] [place] (30 min) Complex 06/08/2016 Visit [...] check. 05/19/2016 Appointment: Tamy Lugo WPtel: [phone] [phone] [place] (30 min) Complex 05/19/2016 Patient [...] weight check. 05/08/2016 Appointment: Gloria Scott WPtel: [facility] [place] (15 min) Moderate 05/08/2016 Patient Education: [...] morning. 05/05/2016 Appointment: Tamy Lugo WPtel: [phone] [phone] [place] (15 min) Moderate 05/05/2016 Patient Education: Patient Medication Summary Completed 05/05/2016 Patient Education: Obesity Completed 05/05/2016 Care Plan: Comp Metabolic Pending 05/05/2016 Appointment: Jocelyn Hess WPtel: [facility]5 [facility] Surgical Procedure 04/17/2016 Appointment: Injection 04/13/2016 Patient Education: Patient Medication Summary Completed 04/13/2016 Visit Plan: Right shoulder pain - will refer to PT - The pt is to use prn antiinflammatories to manage acute pain. The patient is to call the office if the pain is worsening or does not improve. 04/10/2016 Appointment: Gloria Scott WPtel: [phone] [facility] (30 min) Complex 04/10/2016 Patient Education: [...] control. 04/06/2016 Appointment: Gloria Scott WPtel: [phone] [facility] (15 min) Moderate 04/06/2016 Patient Education: Patient [...] [place] 02/28/2016 Appointment: Gloria Scott WPtel: [phone] [facility] (30 min) Complex 02/28/2016 Patient Education: Patient Medication Summary Completed 02/28/2016 Patient Education: Obesity Completed 02/28/2016 Appointment: Gloria Scott WPtel: [phone] [facility] (15 min) Moderate 01/31/2016 Visit Plan: Diabetes [...] prn. 12/23/2015 Appointment: Gloria Scott WPtel: [phone] [facility] [facility] 12/23/2015 Patient Education: Patient Medication [...] %Hba1C ADD TO BLOOD IN THE LAB. [facility] : 68791-8 Pending 08/13/2015 Visit Plan: Hypertension - uncontrolled [...] Roni Roberts Referral Completed [facility] [place] Referral Initiated Referral: Roni Roberts Referral Initiated Instructions Comment . URI - Pt advised to increase [...] not improved, or if symptoms acutely worsen. Rocephin shot today keflex to start tomorrow [...] in pain, worsening redness, warmth, discharge. . Vaginal candidiasis - will send RX - pt is to notify clinic if symptoms do not improve, if they worsen, or with any questions or concerns. 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 Pt has been advised to increase the [...] PRN Yeast - will send RX . Allergies - chronic - recommended pt [...] notify clinic if symptoms do not improve Will check fasting labs, will send for [...] reduce peripheral edema. . Diabetes Mellitus - I have recommended [...] or with any questions or concerns. . 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 . Sinusitis - Pt has acute infection [...] not improve, or with any concerns . Esophageal Reflux - the patient has [...] in the nasal steroid allergy spray. . Well Adult Female - exam completed. [...] Areas dressed wtih neosporin and bandaids. . Bronchitis - acute case of bronchitis [...] if symptoms do not show improvement. . Skin tag removal - irritated skin [...]
[2018-07-15] MEDS ORDERED: LIDOCAINE PF 2% 5 ML (XYLOCAINE) VIAL ONE (11:10)
[2018-07-15] MEDS ORDERED: fentaNYL INJECTION 100 MCG/2 ML AMP ONE (11:10)
[2018-07-15] MEDS ORDERED: ONDANSETRON 4 MG/2 ML (SDV) Z0FRAN ONE (11:10)
[2018-07-15] MEDS ORDERED: MIDAZOLAM 2 MG/2 ML (VERSED) VIAL ONE (11:10)
[2018-07-15] MEDS ORDERED: proPOfol 200 MG/20 ML (DIPRIVAN) VIAL IV ONE (11:10)
[2018-07-15] MEDS ORDERED: SEVOFLURANE (ULTANE) 15 ML INHAL SOLN ONE (11:10)
--- OUTSIDE RECORDS SUMMARY | 2018-07-15 11:11 | XMS REPORT | CCD ---
Author Author [facility] Address [address] [place] [address] Phone Care Team Providers Care Relationship Counselor Name Role Phone PP Unavailable CCM Unavailable Summary Purpose Interface Exchange Insurance Providers Payer name Policy type / Coverage type Covered alliance party ID Effective Begin Date Effective End Date [facility] Commercial Insurance [id number] Unknown Unknown Family history Father Diagnosis Age At Onset Hypertension Unknown Arthritis Unknown Mother Diagnosis Age At Onset Arthritis Unknown Hyperlipidemia Unknown Daughter Diagnosis Age At Onset Asthma Unknown Social History Social History Element Codes Description Effective Dates Marital status Unknown Darin 08/03/2015 Number of children Unknown 1 08/03/[address]: 0696979 Quit less than 5 years ago 08/03/2015 [...] Codes Condition Status Onset Date Resolved Date Candidiasis of vulva and vagina ICD-9: 112.1 ICD-10: B37.3 Active 09/05/2016 Unknown Rash and other nonspecific skin eruption ICD-9: 782.1 ICD-10: R21 Active 06/07/2017 Unknown Low back pain ICD-9: 724.2 ICD-10: M54.5 Active 04/24/2017 Unknown Sacrococcygeal disorders, not elsewhere classified ICD-9: 724.79 ICD-10: M53.3 Active 11/23/2017 Unknown Acute bronchitis due to other specified organisms ICD-9: 466.0 ICD-10: J20.8 Active 03/07/2016 Unknown Acute laryngopharyngitis ICD-9: 465.0 ICD-10: J06.0 Active 06/15/2016 Unknown Other allergic rhinitis ICD-9: 477.8 ICD-10: J30.89 Active 06/15/2016 Unknown Other obesity due to excess calories [...] ICD-9: 382.00 ICD-10: H66.001 Active 01/09/2017 Unknown Type 2 diabetes mellitus with hyperglycemia ICD-9: 250.02 ICD-10: E11.65 Active 06/12/2016 Unknown Umbilical hernia without obstruction or gangrene ICD-9: 553.1 ICD-10: K42.9 Active 09/12/2016 Unknown Epigastric pain ICD-9 : 789.06 ICD-10: R10.13 Active 09/05/2016 Unknown Type 2 diabetes mellitus without complications [...] Problems Condition Codes Effective Dates Condition Status Candidiasis of vulva and vagina ICD-9: 112.1 ICD-10: B37.3 09/05/2016 Active Rash and other nonspecific skin eruption ICD-9: 782.1 ICD-10: R21 06/07/2017 Active Low back pain ICD-9: 724.2 ICD-10: M54.5 04/24/2017 Active Sacrococcygeal disorders, not elsewhere classified ICD-9: 724.79 ICD-10: M53.3 11/23/2017 Active Acute bronchitis due to other specified organisms ICD-9: 466.0 ICD-10: J20.8 03/07/2016 Active Acute laryngopharyngitis ICD-9: 465.0 ICD-10: J06.0 06/15/2016 Active Other allergic rhinitis ICD-9: 477.8 ICD-10: J30.89 06/15/2016 Active Other obesity due to excess calories [...] ear ICD-9: 382.00 ICD-10: H66.001 01/09/2017 Active Type 2 diabetes mellitus with hyperglycemia ICD-9: 250.02 ICD-10: E11.65 06/12/2016 Active Umbilical hernia without obstruction or gangrene ICD-9: 553.1 ICD-10: K42.9 09/12/2016 Active Epigastric pain ICD-9 : 789.06 ICD-10: R10.13 09/05/2016 Active Type 2 diabetes mellitus without complications [...] Start Date Stop Date Status Fill Instructions hydrocodone 7.5 mg-acetaminophen 325 mg tablet RxNorm: 586076 1 Tablet(s) PO Q4H as needed 02/05/2018 03/06/2018 Active clindamycin HCl 300 mg capsule RxNorm: 061296 1 Capsule(s) PO TID 01/09/2018 01/15/2018 Inactive promethazine 25 mg tablet RxNorm: 723688 Tablet(s) TAKE ONE TABLET BY MOUTH EVERY 6 TO 8 HOURS NEEDED 01/08/2018 No Stop Date Active Diflucan 150 mg tablet RxNorm: 878019 Tablet(s) TAKE ONE TABLET BY MOUTH ONCE DAILY FOR 7 DAYS THEN TAKE ONE TABLET BY MOUTH ONCE A WEEK No Stop Date Active Bactrim DS 800 mg-160 mg tablet RxNorm: 252562 1 Tablet(s) PO BID 01/08/2018 01/17/2018 Inactive prednisone 20 mg tablet RxNorm: 123055 2 Tablet(s) PO daily 01/201811/27/2017 Inactive Zithromax Z-Rashid 250 mg tablet RxNorm: 455669 1 Tablet(s) PO UD 09/05/2017 No Stop Date Active Kenalog 40 mg/mL suspension for injection RxNorm: 2570976 Milliliter(s) Inj 09/05/2017 09/05/2017 Inactive prednisone 20 mg tablet RxNorm: 404519 2 Tablet(s) PO daily 09/09/2017 Inactive ibuprofen 800 mg tablet RxNorm: 636210 1 Tablet(s) PO TID 07/2702/21/2018 Active metoprolol succinate ER 100 mg tablet,extended release 24 hr RxNorm: 697322 TAKE ONE TABLET BY MOUTH ONCE DAILY 06/20/2017 No Stop Date Active alprazolam 0.5 mg tablet RxNorm: 292145 1 Tablet(s) PO Q8 as needed 06/20/2017 07/09/2017 Inactive Zithromax Z-Rashid 250 mg tablet RxNorm: 306511 1 Tablet(s) PO UD 06/15/2017 07/25/2017 Inactive Xopenex HFA 45 mcg/actuation aerosol inhaler RxNorm: 078988 INHALE ONE PUFF INTO LUNGS NEEDED 06/13/2017 07/14/2017 Inactive Xopenex 1.25 mg/3 mL solution for nebulization RxNorm: 141988 Milliliter(s) USE ONE VIAL IN NEBULIZER THREE TIMES DAILY 06/08/2017 No Stop Date Active Flovent HFA 44 mcg/actuation aerosol inhaler RxNorm: 148203 2 Puff(s) INH BID 06/08/2017 No Stop Date Active potassium chloride ER 10 mEq tablet,extended release RxNorm: 235766 1 Tablet(s) PO daily 06/08/2017 06/10/2017 Inactive Lasix 20 mg tablet RxNorm: 048103 1 Tablet(s) PO daily 201606/10/2017 Inactive Xopenex HFA 45 mcg/actuation aerosol inhaler RxNorm: 189886 INHALE ONE PUFF INTO LUNGS NEEDED 06/08/2017 06/12/2017 Inactive triamcinolone acetonide 0.025 % topical cream RxNorm: 9785734 1 Application TOP BID 06/07/2017 No Stop Date Active ibuprofen 800 mg tablet RxNorm: 441402 1 Tablet(s) PO TID 06/0707/06/2017 Inactive cyclobenzaprine 5 mg tablet RxNorm: 827914 1/2 Tablet(s) PO TID as needed muscle spasms 05/28/2017 06/01/2017 Inactive Diflucan 150 mg tablet RxNorm: 542482 TAKE ONE TABLET BY MOUTH ONCE DAILY FOR 7 DAYS THEN TAKE ONE TABLET BY MOUTH ONCE A WEEK 05/28/2017 01/07/2018 Inactive bumetanide 1 mg tablet RxNorm: 864303 TAKE ONE TABLET BY MOUTH TWICE DAILY 05/25/2017 No Stop Date Active meloxicam 7.5 mg tablet RxNorm: 645725 1 Tablet(s) PO daily as needed 05/25/2017 07/23/2017 Inactive Xopenex 1.25 mg/3 mL solution for nebulization RxNorm: 195790 USE ONE VIAL IN NEBULIZER THREE TIMES DAILY 05/25/2017 Inactive Protonix 40 mg tablet,delayed release RxNorm: 284176 1 Tablet(s) PO daily 05/08/2017 11/03/2017 Inactive Protonix 40 mg tablet,delayed release RxNorm: 343556 1 Tablet(s) PO daily 05/04/2017 05/03/2017 Inactive Protonix 40 mg tablet,delayed release RxNorm: 174018 1 Tablet(s) PO daily 05/04/2017 05/07/2017 Inactive meloxicam 7.5 mg tablet RxNorm: 994909 1 Tablet(s) PO daily as needed 04/25/2017 04/24/2017 Inactive meloxicam 7.5 mg tablet RxNorm: 951884 1 Tablet(s) PO daily as needed 04/25/2017 05/04/2017 Inactive promethazine 25 mg tablet RxNorm: 773467 TAKE ONE TABLET BY MOUTH EVERY 6 TO 8 HOURS NEEDED 04/25/2017 01/07/2018 Inactive Kenalog 40 mg/mL suspension for injection RxNorm: 3914211 1 Milliliter(s) Inj 04/24/2017 04/24/2017 Inactive cyclobenzaprine 5 mg tablet RxNorm: 844083 1/2 Tablet(s) PO TID as needed muscle spasms 04/24/2017 04/28/2017 Inactive Xopenex HFA 45 mcg/actuation aerosol inhaler RxNorm: 892916 INHALE ONE PUFF INTO LUNGS NEEDED 03/30/2017 04/14/2017 Inactive Humalog KwikPen 200 unit/mL (3 mL) subcutaneous RxNorm: 2702234 INJECT 35 UNITS SUBCUTANEOUSLY BEFORE MEAL(S) 03/30/2017 06/05/2017 Inactive promethazine 25 mg tablet RxNorm: 751160 Tablet(s) TAKE ONE TABLET BY MOUTH EVERY 6 TO 8 HOURS NEEDED 03/12/20172016 Inactive cyclobenzaprine 10 mg tablet RxNorm: 097171 TAKE ONE TABLET BY MOUTH ONCE DAILY NEEDED 03/06/2017 03/15/2017 Inactive lidocaine 5 % topical patch RxNorm: 2212539 USE ONE PATCH TOPICALLY DAILY. 12 HOURS ON AND THEN 12 HOURS OFF. 03/06/2017 03/15/2017 Inactive Humalog KwikPen 200 unit/mL (3 mL) subcutaneous RxNorm: 4154679 INJECT 35 UNITS SUBCUTANEOUSLY BEFORE MEAL(S) 02/20/2017 03/25/2017 Inactive promethazine 25 mg tablet RxNorm: 649107 Tablet(s) TAKE ONE TABLET BY MOUTH EVERY 6 TO 8 HOURS NEEDED 02/20/20172016 Inactive Xopenex HFA 45 mcg/actuation aerosol inhaler RxNorm: 209010 INHALE ONE PUFF INTO LUNGS NEEDED 02/20/2017 03/07/2017 Inactive bumetanide 1 mg tablet RxNorm: 734409 TAKE ONE TABLET BY MOUTH TWICE DAILY 02/15/2017 05/15/2017 Inactive bumetanide 1 mg tablet RxNorm: 224766 TAKE ONE TABLET BY MOUTH TWICE DAILY 01/15/2017 02/13/2017 Inactive metoprolol succinate ER 100 mg tablet,extended release 24 hr RxNorm: 436579 TAKE ONE TABLET BY MOUTH ONCE DAILY 01/11/2017 06/19/2017 Inactive Zithromax Z-Rashid 250 mg tablet RxNorm: 637577 1 Tablet(s) PO UD 01/09/2017 03/13/2017 Inactive meclizine 25 mg tablet RxNorm: 432624 1 Tablet(s) PO TID as needed 01/09/2017 01/18/2017 Inactive Kenalog 40 mg/mL suspension for injection RxNorm: 7176942 Milliliter(s) Inj 01/09/2017 01/09/2017 Inactive promethazine 25 mg tablet RxNorm: 790427 Tablet(s) TAKE ONE TABLET BY MOUTH EVERY 6 TO 8 HOURS NEEDED 12/29/20162016 Inactive Voltaren 1 % topical gel RxNorm: 992150 APPLY TOPICALLY TO AFFECTED AREA TWICE DAILY 12/25/2016 01/13/2017 Inactive cyclobenzaprine 10 mg tablet RxNorm: 687225 TAKE ONE TABLET BY MOUTH NEEDED 12/22/2016 12/31/2016 Inactive lidocaine 5 % topical patch RxNorm: 6568606 USE ONE PATCH TOPICALLY DAILY. 12 HOURS ON AND THEN 12 HOURS OFF. 12/22/2016 12/31/2016 Inactive hydrocodone 7.5 mg-acetaminophen 325 mg tablet RxNorm: 442910 1 Tablet(s) PO Q4H as needed 12/22/2016 01/20/2017 Inactive bumetanide 1 mg tablet RxNorm: 795058 TAKE ONE TABLET BY MOUTH TWICE DAILY 12/17/2016 01/14/2017 Inactive promethazine 25 mg tablet RxNorm: 481741 Tablet(s) TAKE ONE TABLET BY MOUTH EVERY 6 TO 8 HOURS NEEDED 11/16/20162016 Inactive spironolactone 50 mg tablet RxNorm: 169895 TAKE ONE TABLET BY MOUTH TWICE DAILY 11/15/2016 05/13/2017 Inactive Basaglar KwikPen 100 unit/mL (3 mL) subcutaneous RxNorm: 7080091 Unit(s) INJECT 35 UNITS IN THE MORNING AND 50 UNITS IN THE EVENING SUBCUTANEOUSLY 11/15/2016 03/14/2017 Inactive cyclobenzaprine 10 mg tablet RxNorm: 837145 TAKE ONE TABLET BY MOUTH NEEDED 11/15/2016 12/04/2016 Inactive lidocaine 5 % topical patch RxNorm: 9035571 1 Patch TOP daily . 12 HOURS ON, 12 HOURS OFF 11/15/2016 12/04/2016 Inactive lidocaine 4 % topical patch RxNorm: 7675137 1 Patch TOP on for 12 hours and off for 12 hours 11/14/2016 11/14/2016 Inactive promethazine 25 mg tablet RxNorm: 341256 TAKE ONE TABLET BY MOUTH EVERY 6 TO 8 HOURS NEEDED 11/14/2016 11/15/2016 Inactive Basaglar KwikPen 100 unit/mL (3 mL) subcutaneous RxNorm: 1180868 INJECT 35 UNITS IN THE MORNING AND 50 UNITS IN THE EVENING SUBCUTANEOUSLY 11/14/2016 Inactive cyclobenzaprine 10 mg tablet RxNorm: 645827 TAKE ONE TABLET BY MOUTH NEEDED 11/14/2016 11/14/2016 Inactive spironolactone 50 mg tablet RxNorm: 015868 TAKE ONE TABLET BY MOUTH TWICE DAILY 11/14/2016 11/14/2016 Inactive Diflucan 150 mg tablet RxNorm: 061851 1 Tablet(s) PO as needed prophylactic after sexual intercourse 10/30/2016 No Stop Date Active hydrocodone 7.5 mg-acetaminophen 325 mg tablet RxNorm: 044262 1 Tablet(s) PO Q4H as needed 10/30/2016 11/28/2016 Inactive clotrimazole 100 mg vaginal tablet RxNorm: 560754 1 Tablet(s) VAG QW 10/30/2016 11/28/2016 Inactive Humalog KwikPen 200 unit/mL (3 mL) subcutaneous RxNorm: 5294774 35 Unit(s) SQ AC 10/30/2016 02/19/2017 Inactive QS 30 day supply Bydureon 2 mg/0.65 mL subcutaneous pen injector RxNorm: 1824643 2 Milligram(s) SQ QW 10/30/2016 11/28/2016 Inactive Basaglar KwikPen 100 unit/mL (3 mL) subcutaneous RxNorm: 8795459 Unit(s) SQ 35 units in the morning and 50 units in the evening 10/30/2016 11/13/2016 Inactive QS 30 day supply cyclobenzaprine 10 mg tablet RxNorm: 566795 TAKE ONE TABLET BY MOUTH NEEDED 10/27/2016 11/05/2016 Inactive Diflucan 150 mg tablet RxNorm: 254254 1 Tablet(s) PO daily x 7 days then once a week 10/27/2016 10/29/2016 Inactive promethazine 25 mg tablet RxNorm: 090581 TAKE ONE TABLET BY MOUTH EVERY 6 TO 8 HOURS NEEDED 10/27/2016 11/10/2016 Inactive Diflucan 150 mg tablet RxNorm: 825630 1 Tablet(s) PO daily x 7 days then once a week 10/09/2016 10/15/2016 Inactive Diflucan 150 mg tablet RxNorm: 655198 1 Tablet(s) PO daily 10/201609/26/2016 Inactive Cipro 500 mg tablet RxNorm: 083575 1 Tablet(s) PO BID 201609/21/2016 Inactive Flagyl 500 mg tablet RxNorm: 081013 1 Tablet(s) PO TID 201609/21/2016 Inactive Diflucan 150 mg tablet RxNorm: 975933 1 Tablet(s) PO daily 09/12/2016 Inactive hydrocodone 7.5 mg-acetaminophen 325 mg tablet RxNorm: 813130 1 Tablet(s) PO Q4H as needed 07/12/2016 08/10/2016 Inactive Xopenex 1.25 mg/3 mL solution for nebulization RxNorm: 044233 3 Milliliter(s) INH TID 06/16/2016 05/24/2017 Inactive cefdinir 300 mg capsule RxNorm: 616808 1 Capsule(s) PO BID 06/25/2016 Inactive Mobic 7.5 mg tablet RxNorm: 653961 1 Tablet(s) PO daily 201506/25/2016 Inactive Levaquin 500 mg tablet RxNorm: 466804 1 Tablet(s) PO daily 06/22/2016 Inactive cyclobenzaprine 10 mg tablet RxNorm: 209435 1 Tablet(s) PO PRN as needed 06/14/2016 06/23/2016 Inactive promethazine 25 mg tablet RxNorm: 418594 TAKE ONE TABLET BY MOUTH EVERY 6 TO 8 HOURS NEEDED 06/14/2016 06/28/2016 Inactive Xopenex HFA 45 mcg/actuation aerosol inhaler RxNorm: 479399 1 Puff(s) INH PRN 06/14/2016 07/15/2016 Inactive pen needle, diabetic 32 gauge x 5/16" RxNorm: 1 use Miscellaneous AC & HS 06/13/2016 No Stop Date Active QS 30 day supply Humalog KwikPen 200 unit/mL (3 mL) subcutaneous RxNorm: 5861174 10 Unit(s) SQ AC 06/13/2016 10/29/2016 Inactive QS 30 day supply Basaglar KwikPen 100 unit/mL (3 mL) subcutaneous RxNorm: 4630248 22 units in the morning and 35 in the evening. Unit(s) SQ 06/13/2016 10/29/2016 Inactive QS 30 day supply Tivorbex 20 mg capsule RxNorm: 3250625 1 Capsule(s) PO TID as needed 06/13/2016 06/13/2016 Inactive metoprolol succinate ER 100 mg tablet,extended release 24 hr RxNorm: 984132 TAKE ONE TABLET BY MOUTH ONCE DAILY 06/13/2016 10/10/2016 Inactive hydrocodone 7.5 mg-acetaminophen 325 mg tablet RxNorm: 542365 1 Tablet(s) PO Q4H as needed 06/13/2016 07/11/2016 Inactive Voltaren 1 % topical gel RxNorm: 466239 APPLY TOPICALLY TO AFFECTED AREA TWICE DAILY 05/30/2016 07/08/2016 Inactive alprazolam 0.5 mg tablet RxNorm: 708069 1 Tablet(s) PO Q8 as needed 05/19/2016 No Stop Date Active cyclobenzaprine 10 mg tablet RxNorm: 327787 1 Tablet(s) PO PRN as needed 05/19/2016 05/28/2016 Inactive bumetanide 1 mg tablet RxNorm: 779691 TAKE ONE TABLET BY MOUTH TWICE DAILY 05/19/2016 06/17/2016 Inactive Sprintec (28) 0.25 mg-35 mcg tablet RxNorm: 374930 1 Tablet(s) PO UD 05/08/2016 No Stop Date Active Lantus Solostar 100 unit/mL (3 mL) subcutaneous insulin pen RxNorm: 877224 Unit( s) SQ UD 15units qam 30 units qhs 05/08/2016 No Stop Date Active Humalog KwikPen 200 unit/mL (3 mL) subcutaneous RxNorm: 7363083 10 Unit(s) SQ AC 05/08/2016 06/12/2016 Inactive bumetanide 1 mg tablet RxNorm: 415747 TAKE ONE TABLET BY MOUTH TWICE DAILY 04/28/2016 05/18/2016 Inactive Voltaren 1 % topical gel RxNorm: 120012 1 Application TOP BID 04/28/2016 05/07/2016 Inactive cyclobenzaprine 10 mg tablet RxNorm: 992742 1 Tablet(s) PO PRN as needed 04/28/2016 05/07/2016 Inactive hydrocodone 7.5 mg-acetaminophen 325 mg tablet RxNorm: 324282 1 Tablet(s) PO Q4H as needed 04/18/2016 05/16/2016 Inactive Lantus Solostar 100 unit/mL (3 mL) subcutaneous insulin pen RxNorm: 993022 Unit( s) SQ UD 10 units QHS x5 days, if sugars are over 200 increase to 15 units x 5 days, if sugars over 200 increase to 20 units. 04/14/2016 05/07/2016 Inactive lidocaine 4 % topical patch RxNorm: 1293260 1 Patch TOP on for 12 hours and off for 12 hours 04/13/2016 11/13/2016 Inactive Voltaren 1 % topical gel RxNorm: 441784 1 Application TOP BID 04/10/2016 04/27/2016 Inactive metformin ER 500 mg 24 hr tablet,extended release RxNorm: 266983 1 Tablet(s) PO daily 04/06/2016 05/05/2016 Inactive Kenalog 40 mg/mL suspension for injection RxNorm: 9647541 1 Milliliter(s) Inj 04/06/2016 04/06/2016 Inactive cyclobenzaprine 10 mg tablet RxNorm: 465238 1 Tablet(s) PO PRN as needed 04/06/2016 04/27/2016 Inactive WelChol 3.75 gram oral powder packet RxNorm: 264505 1 packet PO daily 04/06/2016 07/04/2016 Inactive alprazolam 0.5 mg tablet RxNorm: 830305 1 Tablet(s) PO Q8 as needed 03/30/2016 06/19/2017 Inactive Levaquin 500 mg tablet RxNorm: 189232 1 Tablet(s) PO daily 04/05/2016 Inactive metoprolol succinate ER 100 mg tablet,extended release 24 hr RxNorm: 807661 TAKE ONE TABLET BY MOUTH ONCE DAILY 03/16/2016 06/12/2016 Inactive Levaquin 500 mg tablet RxNorm: 151643 1 Tablet(s) PO daily 03/14/2016 Inactive prednisone 20 mg tablet RxNorm: 929135 2 Tablet(s) PO daily 03/12/2016 Inactive Phenergan with Codeine Syrup RxNorm: 5-10 ML PO QID as needed cough 02/28/2016 No Stop Date Active Xopenex HFA 45 mcg/actuation aerosol inhaler RxNorm: 304222 1 Puff(s) INH PRN 02/28/2016 06/13/2016 Inactive Kenalog 40 mg/mL suspension for injection RxNorm: 5549662 1 Milliliter(s) Inj 02/28/2016 02/28/2016 Inactive Zithromax Z-Rashid 250 mg tablet RxNorm: 817587 1 Tablet(s) PO UD 02/28/2016 03/27/2016 Inactive alprazolam 0.5 mg tablet RxNorm: 430626 1 Tablet(s) PO Q8 as needed 02/24/2016 06/19/2017 Inactive glipizide 5 mg tablet RxNorm: 580262 1 Tablet(s) PO daily 201505/16/2016 Inactive Actos 15 mg tablet RxNorm: 973332 1 Tablet(s) PO daily 201502/16/2016 Inactive gabapentin 100 mg capsule RxNorm: 106874 1 Capsule(s) PO QHS 03/12/2016 Inactive gabapentin 100 mg capsule RxNorm: 719576 1 Capsule(s) PO QHS 01/12/2016 Inactive Bydureon 2 mg/0.65 mL subcutaneous pen injector RxNorm: 3275120 1 Milliliter(s) SQ QW 01/12/2016 01/11/2016 Inactive Bydureon 2 mg/0.65 mL subcutaneous pen injector RxNorm: 7231825 2/0.65ml Milligram (s) SQ QW 01/12/2016 05/16/2016 Inactive Bydureon 2 mg/0.65 mL subcutaneous pen injector RxNorm: 3407282 1 Milliliter(s) SQ QW 01/12/2016 01/11/2016 Inactive bumetanide 1 mg tablet RxNorm: 517468 TAKE ONE TABLET BY MOUTH TWICE DAILY 01/10/2016 04/08/2016 Inactive promethazine 25 mg tablet RxNorm: 848337 Tablet(s) Tablet(s) 1 Tablet(s) PO Q6-8H as needed 12/16/2015 04/13/2016 Inactive promethazine 25 mg tablet RxNorm: 978988 Tablet(s) 1 Tablet(s) PO Q6-8H as needed 12/10/2015 12/15/2015 Inactive Trulicity 0.75 mg/0.5 mL subcutaneous pen injector RxNorm: 8020827 INJECT ONE- HALF ML SUBCUTANEOUSLY ONCE A WEEK 12/10/2015 01/11/2016 Inactive glipizide 5 mg tablet RxNorm: 807571 1 Tablet(s) PO daily 201501/17/2016 Inactive bumetanide 1 mg tablet RxNorm: 834193 TAKE ONE TABLET BY MOUTH TWICE DAILY 12/10/2015 01/08/2016 Inactive promethazine 25 mg tablet RxNorm: 286394 Tablet(s) 1 Tablet(s) PO Q6-8H as needed 11/18/2015 12/09/2015 Inactive promethazine 25 mg tablet RxNorm: 586128 1 Tablet(s) PO Q6-8H as needed 11/16/2015 11/17/2015 Inactive glipizide 5 mg tablet RxNorm: 115624 1/2 Tablet(s) PO daily 12/15/2015 Inactive promethazine 25 mg tablet RxNorm: 259063 Tablet(s) 1 Tablet(s) PO Q6-8H as needed 11/11/2015 12/10/2015 Inactive metoprolol tartrate 50 mg tablet RxNorm: 410035 1 Tablet(s) PO BID 11/11/2015 02/08/2016 Inactive Trulicity 0.75 mg/0.5 mL subcutaneous pen injector RxNorm: 7280066 .5 Milliliter(s ) SQ QW 11/11/2015 01/11/2016 Inactive promethazine 25 mg tablet RxNorm: 637010 1 Tablet(s) PO Q6-8H as needed 10/28/2015 11/10/2015 Inactive nystatin 100,000 unit/gram topical cream RxNorm: 790757 1 Gram(s) TOP BID 10/27/2015 No Stop Date Active alprazolam 0.5 mg tablet RxNorm: 328268 1 Tablet(s) PO Q8 as needed 10/27/2015 03/29/2016 Inactive hydrocodone 7.5 mg-acetaminophen 325 mg tablet RxNorm: 997766 1 Tablet(s) PO Q4H as needed 10/27/2015 11/25/2015 Inactive Trulicity 0.75 mg/0.5 mL subcutaneous pen injector RxNorm: 8982738 .5 Milliliter(s ) SQ QW 10/27/2015 11/10/2015 Inactive glipizide 5 mg tablet RxNorm: 229921 1 Tablet(s) PO daily 201511/25/2015 Inactive hydrocodone 7.5 mg-acetaminophen 325 mg tablet RxNorm: 826354 1 Tablet(s) PO Q4H as needed 10/26/2015 10/26/2015 Inactive alprazolam 0.5 mg tablet RxNorm: 309182 1 Tablet(s) PO PRN as needed 10/26/2015 10/26/2015 Inactive promethazine 25 mg tablet RxNorm: 927825 1 Tablet(s) PO Q6-8H as needed 10/26/2015 11/15/2015 Inactive glipizide 5 mg tablet RxNorm: 385456 1/2 Tablet(s) PO daily 10/26/2015 Inactive cefdinir 300 mg capsule RxNorm: 841634 1 Capsule(s) PO BID 10/14/2015 Inactive prednisone 20 mg tablet RxNorm: 718299 2 Tablet(s) PO daily 10/09/2015 Inactive Diflucan 150 mg tablet RxNorm: 732671 1 Tablet(s) PO daily 10/11/2015 Inactive Invokamet 50 mg-500 mg tablet RxNorm: 4201679 1 Tablet(s) PO daily 10/05/2015 11/03/2015 Inactive alprazolam 0.5 mg tablet RxNorm: 426561 1 Tablet(s) PO PRN as needed 10/01/2015 02/23/2016 Inactive promethazine 25 mg tablet RxNorm: 699518 1 Tablet(s) PO Q6-8H as needed 09/30/2015 10/25/2015 Inactive bumetanide 1 mg tablet RxNorm: 177444 TAKE ONE TABLET BY MOUTH TWICE DAILY 09/30/2015 10/29/2015 Inactive bumetanide 1 mg tablet RxNorm: 706757 TAKE ONE TABLET BY MOUTH TWICE DAILY 09/20/2015 12/18/2015 Inactive bumetanide 1 mg tablet RxNorm: 103353 1 Tablet(s) PO BID 201510/19/2015 Inactive metoprolol succinate ER 100 mg tablet,extended release 24 hr RxNorm: 388756 1 Tablet(s) PO daily 09/16/2015 03/13/2016 Inactive spironolactone 50 mg tablet RxNorm: 712341 1 Tablet(s) PO BID 09/16/2015 03/13/2016 Inactive alprazolam 0.5 mg tablet RxNorm: 305996 1 Tablet(s) PO PRN as needed 09/16/2015 10/25/2015 Inactive hydrocodone 7.5 mg-acetaminophen 325 mg tablet RxNorm: 855085 1 Tablet(s) PO Q4H as needed 09/16/2015 10/25/2015 Inactive Invokamet 50 mg-1,000 mg tablet RxNorm: 3840600 1 Tablet(s) PO daily 09/06/2015 09/05/2015 Inactive Invokamet 50 mg-1,000 mg tablet RxNorm: 6906048 1 Tablet(s) PO daily 09/06/2015 12/04/2015 Inactive promethazine 25 mg tablet RxNorm: 106852 TAKE ONE TABLET BY MOUTH EVERY 6 TO 8 HOURS NEEDED 09/01/2015 09/16/2015 Inactive promethazine 25 mg tablet RxNorm: 001435 1 Tablet(s) PO Q6-8H as needed 08/27/2015 09/25/2015 Inactive metoprolol succinate ER 100 mg tablet,extended release 24 hr RxNorm: 850498 1 Tablet(s) PO daily 08/20/2015 09/15/2015 Inactive bumetanide 1 mg tablet RxNorm: 623211 1 Tablet(s) PO BID 201509/18/2015 Inactive Bumex 1 mg tablet RxNorm: 678407 1 Tablet(s) PO BID 201511/15/2015 Inactive Kenalog 40 mg/mL suspension for injection RxNorm: 2651923 Milliliter(s) Inj 08/20/2015 08/20/2015 Inactive bumetanide 1 mg tablet RxNorm: 460661 1 Tablet(s) PO BID 201508/19/2015 Inactive Levaquin 500 mg tablet RxNorm: 118881 1 Tablet(s) PO daily 09/201508/26/2015 Inactive promethazine 25 mg tablet RxNorm: 146490 1 Tablet(s) PO Q6-8H as needed 08/06/2015 08/26/2015 Inactive metformin 500 mg tablet RxNorm: 131315 Tablet(s) PO 500mg in the morning and 1000mg at night No Start Date 09/16/2015 Inactive Lantus Solostar 100 unit/mL (3 mL) subcutaneous insulin pen RxNorm: 190930 Unit( s) SQ UD 10 units QHS x 5 days, if blood sugars are above 200 increase to 15 units x 5 days, if still 200 increase to 20 units. No Start Date 04/13/2016 Inactive alprazolam 0.5 mg tablet RxNorm: 149350 1 Tablet(s) PO PRN as needed No Start Date 09/15/2015 Inactive cyclobenzaprine 10 mg tablet RxNorm: 162209 1 Tablet(s) PO PRN as needed No Start Date 04/05/2016 Inactive lidocaine 4 % topical patch RxNorm: 5041909 1 Patch TOP on for 12 hours and off for 12 hours No Start Date 04/12/2016 Inactive metoprolol tartrate 50 mg tablet RxNorm: 980816 1 Tablet(s) PO BID No Start Date 11/10/2015 Inactive spironolactone 50 mg tablet RxNorm: 894280 1 Tablet(s) PO BID No Start Date 09/15/2015 Inactive hydrocodone 7.5 mg-acetaminophen 325 mg tablet RxNorm: 102509 1 Tablet(s) PO Q4H as needed No Start Date 09/15/2015 Inactive promethazine 25 mg tablet RxNorm: 881793 1 Tablet(s) PO PRN as needed No Start Date 08/05/2015 Inactive Medication Administered Medication Codes Instructions Start Date Status Kenalog 40 mg/mL suspension for injection RxNorm: 8234905 Milliliter 09/05/2017 No longer Active Kenalog 40 mg/mL suspension for injection RxNorm: 5388121 1Milliliter 04/24/2017 No longer Active Kenalog 40 mg/mL suspension for injection RxNorm: 7988588 Milliliter 01/09/2017 No longer Active Kenalog 40 mg/mL suspension for injection RxNorm: 1231409 1Milliliter 04/06/2016 No longer Active Kenalog 40 mg/mL suspension for injection RxNorm: 9269339 1Milliliter 02/28/2016 No longer Active Kenalog 40 mg/mL suspension for injection RxNorm: 5715572 Milliliter 08/20/2015 No longer Active Immunizations Vaccine Codes Date Status Influenza CVX: 141 04/24/2017 completed Pneumococcal (Adult) CVX: 33 04/13/2016 completed Influenza CVX: 141 03/30/2016 completed Assessments Condition Codes Effective Dates Rash and other nonspecific skin eruption ICD-10: R21 ICD-9: 782.1 01/08/2018 Candidiasis of vulva and vagina ICD-10: B37.3 ICD-9: 112.1 01/08/2018 Sacrococcygeal disorders, not elsewhere classified ICD-10: M53.3 ICD-9: 724.79 11/23/2017 Low back pain ICD-10: M54.5 ICD-9: 724.2 11/23/2017 Other allergic rhinitis ICD-10: J30.89 ICD-9: 477.8 09/05/2017 Acute bronchitis due to other specified organisms ICD-10: J20.8 ICD-9: 466.0 09/05/2017 Acute laryngopharyngitis ICD-10: J06.0 ICD-9: 465.0 09/05/2017 Polycystic ovarian syndrome ICD-10: E28.2 ICD-9: 256.4 06/13/2017 Other obesity due to excess calories ICD-10: E66.09 ICD-9: 278.00 06/13/2017 Pain in left foot ICD-10: M79.672 ICD-9: 729.5 06/07/2017 Localized edema ICD-10: R60.0 ICD-9: 782.3 06/07/2017 Dyspnea, unspecified ICD-10: R06.00 ICD-9: 786.09 06/07/2017 Sacroiliitis, not elsewhere classified ICD-10: M46.1 ICD-9: 720.2 04/24/2017 VACCIN FOR INFLUENZA ICD-10: Z23 ICD-9: V04.81 04/24/2017 Acute suppurative otitis media without spontaneous [...] Visit Reason For Visit Effective Dates Notes rash 01/08/2018 back pain 11/23/2017 sinus congestion [...] Code Item Item Code Result Date %Hba1C Zxu385 % HbA1c 43217-5 8.8 % 06/13/2017 %Hba1C Zfv367 Gluc Ave 206 mg/dL 06/13/2017 Tsh Ord6 [...] 30.2 pg 06/13/2017 Cbc With Differential Ord2 Lander% 4.9 % 06/13/2017 Cbc With Differential Ord2 [...] 3.21 K/ul 06/13/2017 Cbc With Differential Ord2 [place] ABS# 0.7 K/ul 06/13/2017 Cbc With Differential Ord2 Eos ABS# 0.2 K/ul 06/13/2017 Cbc With Differential Ord2 Baso ABS# 0.1 K/ul 06/13/2017 Lipid Ord30 CHOL 219 mg/dL 06/13/2017 Lipid Ord30 HDL 40.0 mg/dl 06/13/2017 Lipid Ord30 TRIG 200 mg/dL 06/13/2017 Lipid Ord30 LDL 139 mg/dL 06/13/2017 Lipid Ord30 C/HDL 5.5 Ratio 06/13/2017 Comp Metabolic Npq957 NA 139 mEq/L 06/13/2017 Comp Metabolic Imx258 K 4.4 mEq/L 06/13/2017 Comp Metabolic Pug471 CL 100 mEq/L 06/13/2017 Comp Metabolic Yki151 CO2 29.0 mEq/L 06/13/2017 Comp Metabolic Fnf735 ANION GAP 14 06/13/2017 Comp Metabolic Nrm032 GLUCOSE 257 mg/dL 06/13/2017 Comp Metabolic Zjo110 Creat 0.5 mg/dL 06/13/2017 Comp Metabolic Xjp863 eGFR 145 ml/min/1.73m2 06/13/2017 Comp Metabolic Rij333 BUN 13 mg/dL 06/13/2017 Comp Metabolic Iuj288 B/C Ratio 26.5 Ratio 06/13/2017 Comp Metabolic Hfg903 CALCIUM 9.7 mg/dL 06/13/2017 Comp Metabolic Iaj194 ALK PHOS 98 U/L 06/13/2017 Comp Metabolic Tjb037 AST(SGOT) 30 U/L 06/13/2017 Comp Metabolic Uco721 ALT(SGPT) 43 U/L 06/13/2017 Comp Metabolic Zxt676 BILI T 0.5 mg/dL 06/13/2017 Comp Metabolic Ncm963 ALBUMIN 4.0 g/dL 06/13/2017 Comp Metabolic Idn256 TPRO 6.4 g/dL 06/13/2017 Comp Metabolic Evm104 GLOB 2.4 g/dL 06/13/2017 Comp Metabolic Lmm966 A/G Ratio 1.7 Ratio 06/13/2017 Comp Metabolic Uyg005 Osmo 286 mOsmo 06/13/2017 %Hba1C Sbw164 % HbA1c 58622-7 11.1 % 2016 %Hba1C Qhs133 Gluc Ave 272 mg/dL 2016 C-Reactive Protein Qnt Crqnt CRP 4.7 mg/dl 2016 Comp Metabolic Njg676 NA 136 mEq/L 2016 Comp Metabolic Pwc031 K 4.1 mEq/L 2016 Comp Metabolic Ull378 CL 96 mEq/L 2016 Comp Metabolic Irl537 CO2 29.0 mEq/L 2016 Comp Metabolic Yks727 ANION GAP 15 2016 Comp Metabolic Fus037 GLUCOSE 291 mg/dL 2016 Comp Metabolic Mma258 Creat 0.4 mg/dL 2016 Comp Metabolic Mdc929 eGFR 165 ml/min/1.73m2 2016 Comp Metabolic Hrg628 BUN 11 mg/dL 2016 Comp Metabolic Wsf474 B/C Ratio 25.0 Ratio 2016 Comp Metabolic Eim162 CALCIUM 9.4 mg/dL 2016 Comp Metabolic Cix082 ALK PHOS 111 U/L 2016 Comp Metabolic Kko052 AST(SGOT) 46 U/L 2016 Comp Metabolic Dxk767 ALT(SGPT) 60 U/L 2016 Comp Metabolic Els960 BILI T 0.4 mg/dL 2016 Comp Metabolic Bos106 ALBUMIN 4.0 g/dL 2016 Comp Metabolic Gmw520 TPRO 6.5 g/dL 2016 Comp Metabolic Awg076 GLOB 2.6 g/dL 2016 Comp Metabolic Vqm131 A/G Ratio 1.5 Ratio 2016 Comp Metabolic Aqc457 Osmo 282 mOsmo 2016 Cbc With Differential [...] 30.5 pg 2016 Cbc With Differential Ord2 Lander% 4.7 % 2016 Cbc With Differential Ord2 Eos% 1.1 % 2016 Cbc With Differential Ord2 MCHC 32.7 pg 2016 Cbc With Differential Ord2 PLT 357 K/ul 2016 Cbc With Differential Ord2 Baso% 0.5 % 2016 Cbc With Differential Ord2 RDW 14.2 % 2016 Cbc With Differential Ord2 Neut ABS# 10.18 K/ul 2016 Cbc With Differential Ord2 Lymph ABS# 3.53 K/ul 2016 Cbc With Differential Ord2 Lander ABS# 0.7 K/ul 2016 Cbc With Differential Ord2 Eos ABS# 0.2 K/ul 2016 Cbc With Differential Ord2 Baso ABS# 0.1 K/ul 2016 Lipid Ord30 CHOL 228 mg/dL 05/05/2016 Lipid Ord30 HDL 42.0 mg/dl 05/05/2016 Lipid Ord30 TRIG 168 mg/dL 05/05/2016 Lipid Ord30 LDL 152 mg/dL 05/05/2016 Lipid Ord30 C/HDL 5.4 Ratio 05/05/2016 Comp Metabolic Iro900 NA 135 mEq/L 05/05/2016 Comp Metabolic Jzk547 K 4.1 mEq/L 05/05/2016 Comp Metabolic Zjx782 CL 99 mEq/L 05/05/2016 Comp Metabolic Iaj832 CO2 29.0 mEq/L 05/05/2016 Comp Metabolic Uvu887 ANION GAP 11 05/05/2016 Comp Metabolic Sru297 GLUCOSE 229 mg/dL 05/05/2016 Comp Metabolic Ror557 Creat 0.5 mg/dL 05/05/2016 Comp Metabolic Yjl312 eGFR 150 ml/min/1.73m2 05/05/2016 Comp Metabolic Fxe563 BUN 14 mg/dL 05/05/2016 Comp Metabolic Uky656 B/C Ratio 29.2 Ratio 05/05/2016 Comp Metabolic Xpw843 CALCIUM 9.1 mg/dL 05/05/2016 Comp Metabolic Krt613 ALK PHOS 112 U/L 05/05/2016 Comp Metabolic Kgg490 AST(SGOT) 59 U/L 05/05/2016 Comp Metabolic Fqv717 ALT(SGPT) 63 U/L 05/05/2016 Comp Metabolic Hpt998 BILI T 0.7 mg/dL 05/05/2016 Comp Metabolic Cqa573 ALBUMIN 3.8 g/dL 05/05/2016 Comp Metabolic Sjm998 TPRO 6.5 g/dL 05/05/2016 Comp Metabolic Mbd347 GLOB 2.7 g/dL 05/05/2016 Comp Metabolic Xqx565 A/G Ratio 1.4 Ratio 05/05/2016 Comp Metabolic Bah539 Osmo 278 mOsmo 05/05/2016 Cbc With Differential [...] 91.3 fl 05/05/2016 Cbc With Differential Ord2 Lander% 4.4 % 05/05/2016 Cbc With Differential Ord2 MCH 30.2 pg 05/05/2016 Cbc With Differential Ord2 Eos% 0.9 % 05/05/2016 Cbc With Differential Ord2 MCHC 33.1 pg 05/05/2016 Cbc With Differential Ord2 PLT 387 K/ul 05/05/2016 Cbc With Differential Ord2 Baso% 0.6 % 05/05/2016 Cbc With Differential Ord2 RDW 14.8 % 05/05/2016 Cbc With Differential Ord2 Neut ABS# 11.77 K/ul 05/05/2016 Cbc With Differential Ord2 Lymph ABS# 3.59 K/ul 05/05/2016 Cbc With Differential Ord2 Lander ABS# 0.7 K/ul 05/05/2016 Cbc With Differential Ord2 Eos ABS# 0.1 K/ul 05/05/2016 Cbc With Differential Ord2 Baso ABS# 0.1 K/ul 05/05/2016 %Hba1C Rxw869 % HbA1c 95625-4 10.4 % 05/05/2016 %Hba1C Uyk223 Gluc Ave 252 mg/dL 05/05/2016 Hcg Beta Subunit Qual Serum 216917 B-HCG QUALITATIVE NEGATIVE 12/27/2015 GC/CHL PRB 5983745 Chl trach DNA Negative 12/25/2015 GC/CHL PRB 2289215 GC PROBE Negative 12/25/2015 Comp. Metabolic Panel (14) 46097 GLUCOSE 136 mg/dL 12/17/2015 Comp. Metabolic Panel (14) 06302 BUN 9 mg/dL 12/17/2015 Comp. Metabolic Panel (14) 80528 CREATININE 0.67 mg/dL 12/17/2015 Comp. Metabolic Panel (14) 91651 SODIUM 136 mmol/L 12/17/2015 Comp. Metabolic Panel (14) 30729 POTASSIUM 4.4 mmol/L 12/17/2015 Comp. Metabolic Panel (14) 30230 CHLORIDE 95 mmol/L 06/2015 Comp. Metabolic Panel (14) 85901 CARBON DIOXIDE 28 mmol/L 06/2015 Comp. Metabolic Panel (14) 51255 CALCIUM 10.1 mg/dL 2015 Comp. Metabolic Panel (14) 98527 TOTAL PROTEIN 7.0 g/dL 12/16 Comp. Metabolic Panel (14) 48160 ALBUMIN 4.5 g/dL 12/17/2015 Comp. Metabolic Panel (14) 12830 ALKALINE PHOSPHATASE 87 U/L 12/17/2015 Comp. Metabolic Panel (14) 85441 TOTAL BILIRUBIN 0.5 mg/dL Comp. Metabolic Panel (14) 38201 SGOT ( AST) 38 U/L 2015 Comp. Metabolic Panel (14) 89223 SGPT ( ALT) 41 U/L 2015 Comp. Metabolic Panel (14) 04240 eGFR (mL /min/1.73m2) >60 06/2015 Comp. Metabolic Panel (14) 53641 12/17/2015 Cbc With Differential/Platelet 90236 WBC 16.67 thou/uL 2015 Cbc With Differential/Platelet 96307 RBC 5.11 mil/uL 2015 Cbc With Differential/Platelet 51555 HEMOGLOBIN 14.8 g/dL 12/17/2015 Cbc With Differential/Platelet 90332 HEMATOCRIT 48.7 % 06/2015 Cbc With Differential/Platelet 07144 MCV 95.4 fL 12/17/2015 Cbc With Differential/Platelet 55889 MCH 29.0 pg 12/17/2015 Cbc With Differential/Platelet 02172 MCHC 30.4 g/dL 2015 Cbc With Differential/Platelet 98376 RDW- CV 14.6 % 12/17/2015 Cbc With Differential/Platelet 97490 PLATELET COUNT 471 thou/uL 12/17/2015 Cbc With Differential/Platelet 87543 NEUTROPHIL % 71.3 % Cbc With Differential/Platelet 61277 LYMPHOCYTE % 22.4 % Cbc With Differential/Platelet 66562 MONOCYTE % 4.8 % 12/16 Cbc With Differential/Platelet 94969 EOS % 0.7 % 12/17/2015 Cbc With Differential/Platelet 33644 BASO % 0.7 % 2015 Cbc With Differential/Platelet 52984 NEUTROPHIL ABS # 11.89 thou/uL 12/17/2015 Cbc With Differential/Platelet 18035 LYMPH ABS # 3.73 thou/uL 12/17/2015 Cbc With Differential/Platelet 70078 MONOCYTE ABS # 0.80 thou/uL 12/17/2015 Cbc With Differential/Platelet 65363 EOS ABS # 0.12 thou/uL 06/2015 Cbc With Differential/Platelet 39989 BASO ABS # 0.12 thou/uL 12/17/2015 Comp. [...] Hgb A1C With Eag Estimation GLYCOHEMOGLOBIN A1C 01710-9 8.1 % 11/13/2015 Hgb A1C With Eag Estimation ESTIMATED AVG GLUCOSE 186 mg/dL 11/13/2015 Comp. Metabolic Panel (14) 41361 GLUCOSE 84 mg/dL 09/11/2015 Comp. Metabolic Panel (14) 20679 BUN 11 mg/dL 09/11/2015 Comp. Metabolic Panel (14) 57088 CREATININE 0.56 mg/dL 09/11/2015 Comp. Metabolic Panel (14) 93022 SODIUM 142 mmol/L 09/11/2015 Comp. Metabolic Panel (14) 56153 POTASSIUM 4.3 mmol/L 09/11/2015 Comp. Metabolic Panel (14) 65858 CHLORIDE 98 mmol/L Comp. Metabolic Panel (14) 53577 CARBON DIOXIDE 27 mmol/L Comp. Metabolic Panel (14) 67650 CALCIUM 10.1 mg/dL 2015 Comp. Metabolic Panel (14) 57028 TOTAL PROTEIN 7.2 g/dL 09/10 Comp. Metabolic Panel (14) 79795 ALBUMIN 4.7 g/dL 09/11/2015 Comp. Metabolic Panel (14) 16305 ALKALINE PHOSPHATASE 109 U/L 09/11/2015 Comp. Metabolic Panel (14) 34729 TOTAL BILIRUBIN 0.3 mg/dL Comp. Metabolic Panel (14) 38873 SGOT ( AST) 53 U/L 2015 Comp. Metabolic Panel (14) 35257 SGPT ( ALT) 53 U/L 2015 Comp. Metabolic Panel (14) 67894 eGFR (mL /min/1.73m2) >60 Comp. Metabolic Panel (14) 69034 09/11/2015 Comp. Metabolic Panel (14) 29371 GLUCOSE 183 mg/dL 08/11/2015 Comp. Metabolic Panel (14) 55549 BUN 10 mg/dL 08/11/2015 Comp. Metabolic Panel (14) 09218 CREATININE 0.46 mg/dL 08/11/2015 Comp. Metabolic Panel (14) 80685 SODIUM 138 mmol/L 08/11/2015 Comp. Metabolic Panel (14) 33564 POTASSIUM 4.0 mmol/L 08/11/2015 Comp. Metabolic Panel (14) 25695 CHLORIDE 98 mmol/L Comp. Metabolic Panel (14) 82856 CARBON DIOXIDE 29 mmol/L Comp. Metabolic Panel (14) 83421 CALCIUM 9.4 mg/dL 08/11/2015 Comp. Metabolic Panel (14) 93458 TOTAL PROTEIN 6.8 g/dL 08/11 Comp. Metabolic Panel (14) 56331 ALBUMIN 4.4 g/dL 08/11/2015 Comp. Metabolic Panel (14) 70204 ALKALINE PHOSPHATASE 118 U/L 08/11/2015 Comp. Metabolic Panel (14) 44795 TOTAL BILIRUBIN <0.3 mg/dL 08/11/2015 Comp. Metabolic Panel (14) 00748 SGOT ( AST) 41 U/L 2015 Comp. Metabolic Panel (14) 33041 SGPT ( ALT) 55 U/L 2015 Comp. Metabolic Panel (14) 25791 eGFR (mL /min/1.73m2) >60 Comp. Metabolic Panel (14) 09802 08/11/2015 Cbc With Differential/Platelet 15087 WBC 11.76 thou/uL 2015 Cbc With Differential/Platelet 46455 RBC 4.98 mil/uL 2015 Cbc With Differential/Platelet 69888 HEMOGLOBIN 14.2 g/dL 08/11/2015 Cbc With Differential/Platelet 12745 HEMATOCRIT 46.7 % Cbc With Differential/Platelet 79656 MCV 93.8 fL 08/11/2015 Cbc With Differential/Platelet 02010 MCH 28.5 pg 08/11/2015 Cbc With Differential/Platelet 63485 MCHC 30.4 g/dL 2015 Cbc With Differential/Platelet 79973 RDW- CV 14.3 % 08/11/2015 Cbc With Differential/Platelet 92265 PLATELET COUNT 382 thou/uL 08/11/2015 Cbc With Differential/Platelet 38716 NEUTROPHIL % 67.3 % Cbc With Differential/Platelet 90008 LYMPHOCYTE % 24.0 % Cbc With Differential/Platelet 77600 MONOCYTE % 6.0 % 08/11 Cbc With Differential/Platelet 11393 EOS % 1.6 % 08/11/2015 Cbc With Differential/Platelet 52184 BASO % 1.0 % 2015 Cbc With Differential/Platelet 59255 NEUTROPHIL ABS # 7.91 thou/uL 08/11/2015 Cbc With Differential/Platelet 35842 LYMPH ABS # 2.82 thou/uL 08/11/2015 Cbc With Differential/Platelet 31403 MONOCYTE ABS # 0.71 thou/uL 08/11/2015 Cbc With Differential/Platelet 63773 EOS ABS # 0.19 thou/uL Cbc With Differential/Platelet 39738 BASO ABS # 0.12 thou/uL 08/11/2015 Tsh 834847 TSH 3.220 uIU/mL 08/11/2015 Lipid Panel 25258 CHOLESTEROL 193 mg/dL 08/11/2015 Lipid Panel 71613 TRIGLYCERIDES 192 mg/dL 08/11/2015 Lipid Panel 05899 HDL 38 mg/dL 08/11/2015 Lipid Panel 13739 CHOLESTEROL/HDL 5.08 08/11/2015 Lipid Panel 53692 LDL (CALCULATED) 117 mg/dL 08/11/2015 Lipid Panel 61336 LDL/HDL 3.08 08/11/2015 Lipid Panel 22076 PHENOTYPE TYPE IV BORDERLINE 08/11/2015 Review of [...] Result Effective Dates Notes Full Exam - General 1994 Constitutional general [...] Procedure Codes Date THER/PROPH/DIAG INJ SC/IM CPT-4: 66481 09/05/2017 TRIAMCINOLONE ACET INJ NOS CPT-4: J3301 09/05/2017 IMMUNIZATION ADMIN CPT -4: 35814 04/24/2017 FLU VAC NO PRSV 4 PRECIOUS 3 YRS+ CPT-4: 43274 04/24/2017 DRAIN/INJECT JOINT/BURSA CPT-4: 53660 04/24/2017 TRIAMCINOLONE ACET INJ NOS CPT-4: J3301 04/24/2017 THER/PROPH/DIAG INJ SC/IM CPT-4: 42769 01/09/2017 TRIAMCINOLONE ACET INJ NOS CPT-4: J3301 01/09/2017 THER/PROPH/DIAG INJ SC/IM CPT-4: 42497 04/13/2016 Pneumococcal Polysaccharide Vaccine, 23-Valent, Ad CPT-4: 31554 04/13/2016 INJECT TRIGGER POINTS 3/> CPT-4: 06952 04/06/2016 TRIAMCINOLONE ACET INJ NOS CPT-4: J3301 04/06/2016 IMMUNIZATION ADMIN CPT -4: 59091 03/30/2016 IIV4 FLU VACC NO PRESERV ID SNOMED CT: [id number] CPT-4: 57006 03/30/2016 TRIAMCINOLONE ACET INJ NOS CPT-4: J3301 02/28/2016 THER/PROPH/DIAG INJ SC/IM CPT-4: 49132 02/28/2016 TRIAMCINOLONE ACET INJ NOS CPT-4: J3301 08/20/2015 Vital Signs Date Vital 01/08/2018 Blood Pressure 1: 134/80 Code : 8480-6 Heart Rate 1: 107 bpm Height: SpO2: 98% Weight: 11/23/2017 Blood Pressure 1: 130/78 Code : 8480-6 Heart Rate 1: 90 bpm Height: SpO2: 98% Weight: 09/05/2017 Blood Pressure 1: 134/86 Code : 8480-6 BMI: 45.4 Code : 59614-8 Heart Rate 1 : 108 bpm Height: 4'11 " SpO2: 95% Weight: 225 lbs 06/07/2017 Blood Pressure 1: 132/74 Code : 8480-6 Heart Rate 1: 99 bpm Height: 4'11" SpO2: 95% 04/24/2017 Blood Pressure 1: 132/8096 Code: 8480-6 BMI: 47.7 Code: 05316-8 Heart Rate 1: 96 bpm Height: 4'11" Weight: 236 lbs 01/09/2017 Blood Pressure 1: 122/74 Code : 8480-6 BMI: 46.0 Code : 91598-0 Heart Rate 1 : 114 bpm Height: 4'11 " SpO2: 98% Temperature: 37.1 (C) / 98.7 (F) Weight: 228 lbs 10/30/2016 Blood Pressure 1: 124/78 Code : 8480-6 BMI: 49.1 Code : 43267-6 Heart Rate 1 : 90 bpm Height: 4'11" SpO2: 97% Weight: 243 lbs 10/09/2016 Blood Pressure 1: 124/80 Code : 8480-6 BMI: 49.3 Code : 78681-5 Heart Rate 1 : 91 bpm Height: 4'11" SpO2: 98% Weight: 244 lbs 09/12/2016 Blood Pressure 1: 128/80 Code : 8480-6 BMI: 49.1 Code : 10113-7 Heart Rate 1 : 94 bpm Height: 4'11" SpO2: 95% Weight: 243 lbs 09/05/2016 Blood Pressure 1: 118/74 Code : 8480-6 BMI: 49.1 Code : 96179-3 Heart Rate 1 : 100 bpm Height: 4'11 " SpO2: 97% Weight: 243 lbs 06/16/2016 Blood Pressure 1: 120/62 Code : 8480-6 BMI: 49.1 Code : 70057-8 Heart Rate 1 : 100 bpm Height: 4'11 " SpO2: 96% Temperature: 36.7 (C) / 98.0 (F) Weight: 243 lbs 06/13/2016 Blood Pressure 1: 120/70 Code : 8480-6 Heart Rate 1: 117 bpm SpO2: 97% 05/19/2016 Blood Pressure 1: 130/64 Code : 8480-6 BMI: 49.1 Code : 68373-2 Heart Rate 1 : 101 bpm Height: 4'11 " SpO2: 96% Weight: 243 lbs 05/08/2016 Blood Pressure 1: 128/76 Code : 8480-6 Heart Rate 1: 119 bpm Height: SpO2: 97% Weight: 05/05/2016 Blood Pressure 1: 124/76 Code : 8480-6 BMI: 49.1 Code : 45438-8 Heart Rate 1 : 75 bpm Height: 4'11" SpO2: 99% Weight: 243 lbs 04/10/2016 Blood Pressure 1: 140/80 Code : 8480-6 BMI: 49.7 Code : 24602-5 Heart Rate 1 : 88 bpm Height: 4'11" SpO2: 95% Weight: 246 lbs 04/06/2016 Blood Pressure 1: 134/82 Code : 8480-6 BMI: 75.1 Code : 92647-1 Heart Rate 1 : 72 bpm Height: 4' SpO2: 96% Weight: 246 lbs 03/08/2016 Blood Pressure 1: 126/72 Code : 8480-6 BMI: 49.7 Code : 59152-2 Heart Rate 1 : 89 bpm Height: 4'11" SpO2: 97% Weight: 246 lbs 02/28/2016 Blood Pressure 1: 124/68 Code : 8480-6 BMI: 49.7 Code : 39274-3 Heart Rate 1 : 89 bpm Height: 4'11" SpO2: 96% Weight: 246 lbs 01/18/2016 Blood Pressure 1: 142/78 Code : 8480-6 BMI: 48.9 Code : 52041-5 Heart Rate 1 : 97 bpm Height: 4'11" SpO2: 97% Weight: 242 lbs 12/23/2015 Blood Pressure 1: 124/74 Code : 8480-6 BMI: 48.9 Code : 23908-3 Heart Rate 1 : 106 bpm Height: 4'11 " SpO2: 96% Weight: 242 lbs 12/16/2015 Blood Pressure 1: 116/82 Code : 8480-6 BMI: 48.3 Code : 48108-9 Heart Rate 1 : 111 bpm Height: 4'11 " SpO2: 97% Weight: 239 lbs 11/11/2015 Blood Pressure 1: 130/80 Code : 8480-6 BMI: 49.7 Code : 62845-2 Heart Rate 1 : 105 bpm Height: 4'11 " SpO2: 96% Weight: 246 lbs 10/27/2015 Blood Pressure 1: 122/70 Code : 8480-6 BMI: 49.5 Code : 56220-1 Heart Rate 1 : 107 bpm Height: 4'11 " SpO2: 96% Weight: 245 lbs 10/13/2015 Blood Pressure 1: 140/82 Code : 8480-6 BMI: 50.9 Code : 18584-2 Heart Rate 1 : 111 bpm Height: 4'11 " SpO2: 96% Weight: 252 lbs 10/05/2015 Blood Pressure 1: 118/70 Code : 8480-6 BMI: 51.1 Code : 17421-8 Heart Rate 1 : 120 bpm Height: 4'11 " SpO2: 97% Weight: 253 lbs 09/01/2015 Blood Pressure 1: 132/82 Code : 8480-6 BMI: 50.1 Code : 76354-3 Heart Rate 1 : 110 bpm Height: 4'11 " SpO2: 96% Weight: 248 lbs 08/20/2015 Blood Pressure 1: 132/78 Code : 8480-6 BMI: 51.7 Code : 15078-9 Heart Rate 1 : 100 bpm Height: 4'11 " Weight: 256 lbs 08/03/2015 Blood Pressure 1: 148/92 Code : 8480-6 BMI: 52.1 Code : 52033-1 Heart Rate 1 : 100 bpm Height: 4'11 " SpO2: 97% Weight: 258 lbs Functional Status No Functional Status data History of Present Illness Symptom Name Status Result Effective Date Notes rash Location-Extremities in the left axilla 01/08/2018 [...] data Encounters Encounter Performer Location Codes Date 21499 EST. PATIENT, LEVEL IV Diagnosis: Candidiasis of vulva and vagina[ICD10: B37.3] Diagnosis: Rash and other nonspecific skin eruption[ICD10: R21] Gloria Hess MD, [facility] CPT-4: 14080 01/08/2018 98576 EST. PATIENT, LEVEL III Diagnosis: Sacrococcygeal disorders, not elsewhere classified[ICD10: M53.3] Diagnosis: Low back pain[ICD10: M54.5] Gloria Hess MD, [facility] CPT-4 : 65480 11/23/2017 62232 EST. PATIENT, LEVEL III Diagnosis: Acute laryngopharyngitis[ICD10: J06.0] Diagnosis: Other allergic rhinitis[ICD10: J30.89] Diagnosis: Acute bronchitis due to other specified organisms[ICD10: J20.8] Gloria Hess MD, [facility] CPT-4: 85926 09/05/2017 17796 EST. PATIENT, LEVEL III Diagnosis: Pain in left foot[ICD10: M79.672] Diagnosis: Rash and other nonspecific skin eruption[ICD10: R21] Diagnosis: Candidiasis of vulva and vagina[ICD10: B37.3] Diagnosis: Localized edema[ICD10: R60.0] Diagnosis: Dyspnea, unspecified[ICD10: R06.00] Gloria Hess MD, [facility] CPT-4: 82854 06/07/2017 31071 EST. PATIENT, LEVEL III Diagnosis: Low back pain[ICD10: M54.5] Diagnosis: Sacroiliitis, not elsewhere classified[ICD10: M46.1] Diagnosis: Pain in left foot[ICD10: M79.672] Diagnosis: VACCIN FOR INFLUENZA[ICD10: Z23] Gloria Hess MD, [facility] CPT- 4: 87782 04/24/2017 45031 EST. PATIENT, LEVEL III Diagnosis: Acute suppurative otitis media without spontaneous rupture of ear drum, right ear[ICD10: H66.001] Diagnosis: Other allergic rhinitis[ICD10: J30.89] Gloria Hess MD, [facility] CPT-4: 90397 01/09/2017 72713 EST. PATIENT, LEVEL IV Diagnosis: Candidiasis of vulva and vagina[ICD10: B37.3] Diagnosis: Type 2 diabetes mellitus with hyperglycemia[ICD10: E11.65] Gloria Hess MD, [facility] CPT-4: 25269 10/30/2016 63883 EST. PATIENT, LEVEL III Diagnosis: Candidiasis of vulva and vagina[ICD10: B37.3] Diagnosis: Type 2 diabetes mellitus with hyperglycemia[ICD10: E11.65] Gloria Hess MD, [facility] CPT-4: 08628 10/09/2016 23466 EST. PATIENT, LEVEL IV Diagnosis: Umbilical hernia without obstruction or gangrene[ICD10: K42.9] Gloria Hess MD, [facility] CPT-4: 69236 09/12/2016 50297 EST. PATIENT, LEVEL III Diagnosis: Epigastric pain[ICD10: R10.13] Diagnosis: Candidiasis of vulva and vagina[ICD10: B37.3] Diagnosis: Type 2 diabetes mellitus with hyperglycemia[ICD10: E11.65] Gloria Hess MD, [facility] CPT-4: 98513 09/05/2016 77724 EST. PATIENT, LEVEL III Diagnosis: Acute laryngopharyngitis[ICD10: J06.0] Diagnosis: Other allergic rhinitis[ICD10: J30.89] Gloria Hess MD, [facility] CPT-4: 67049 06/16/2016 33914 EST. PATIENT, LEVEL III Diagnosis: Type 2 diabetes mellitus with hyperglycemia[ICD10: E11.65] Diagnosis: Other obesity due to excess calories[ICD10: E66.09] Gloria Hess MD, [facility] CPT-4: 12939 06/13/2016 74363 EST. PATIENT, LEVEL III Diagnosis: Type 2 diabetes mellitus with hyperglycemia[ICD10: E11.65] Diagnosis: Other obesity due to excess calories[ICD10: E66.09] Gloria Hess MD, [facility] CPT-4: 22549 05/19/2016 47714 EST. PATIENT, LEVEL III Diagnosis: Type 2 diabetes mellitus with hyperglycemia[ICD10: E11.65] Diagnosis: Other obesity due to excess calories[ICD10: E66.09] Gloria Hess MD, [facility] CPT-4: 38059 05/08/2016 36252 EST. PATIENT, LEVEL III Diagnosis: Type 2 diabetes mellitus without complications[ICD10: E11.9] Gloria Hess MD , [facility] CPT-4: 86640 05/05/2016 30129 EST. PATIENT, LEVEL III Diagnosis: Pain in right shoulder[ICD10: M25.511] Gloria Hess MD, [facility] CPT-4: 44878 04/10/2016 11617 EST. PATIENT, LEVEL III Diagnosis: Pain in right shoulder[ICD10: M25.511] Diagnosis: Other muscle spasm[ICD10: M62.838] Diagnosis: Type 2 diabetes mellitus without complications[ICD10: E11.9] Gloria Hess MD , [facility] CPT-4: 72520 04/06/2016 69500 EST. PATIENT, LEVEL IV Diagnosis: Acute bronchitis due to other specified organisms[ICD10: J20.8] Diagnosis: Other acute sinusitis[ICD10: J01.80] Diagnosis: Acne vulgaris[ICD10: L70.0] Diagnosis: Morbid (severe) obesity due to excess calories[ICD10: E66.01] Gloria Hess MD , [facility] CPT-4: 20167 03/08/2016 97543 EST. PATIENT, LEVEL IV Diagnosis: Other acute sinusitis[ICD10: J01.80] Diagnosis: Localized enlarged lymph nodes[ICD10: R59.0] Gloria Hess MD, [facility] CPT-4: 51910 02/28/2016 [id number] EST. PATIENT, LEVEL III Diagnosis: Type 2 diabetes mellitus without complications[ICD10: E11.9] Gloria Hess MD , [facility] CPT-4: 80018 01/18/2016 ([id number]) PREV VISIT EST AGE 40-64 Diagnosis: Encounter for gynecological examination (general) (routine) without abnormal findings[ICD10: Z01.419] Diagnosis: Excessive and frequent menstruation with irregular cycle[ICD10: N92.1 ] Gloria Hess MD, [facility] CPT-4: 33223 12/23/2015 03466 EST. PATIENT, LEVEL III Diagnosis: Type 2 diabetes mellitus without complications[ICD10: E11.9] Gloria Hess MD , [facility] CPT-4: 95579 12/16/2015 95111 EST. PATIENT, LEVEL III Diagnosis: Type 2 diabetes mellitus without complications[ICD10: E11.9] Diagnosis: Other obesity due to excess calories[ICD10: E66.09] Gloria Hess MD, [facility] CPT-4: 10162 11/11/2015 [id number] EST. PATIENT, LEVEL III Diagnosis: Type 2 diabetes mellitus without complications[ICD10: E11.9] Diagnosis: Other obesity due to excess calories[ICD10: E66.09] Gloria Hess MD, [facility] CPT-4: 52247 10/27/2015 [id number] EST. PATIENT, LEVEL III Diagnosis: Type 2 diabetes mellitus without complications[ICD10: E11.9] Diagnosis: Other obesity due to excess calories[ICD10: E66.09] Diagnosis: Other insomnia[ICD10: G47.09] Gloria Hess MD, [facility] CPT-4 : 47468 10/13/2015 64495 EST. PATIENT, LEVEL IV Diagnosis: Acute recurrent maxillary sinusitis[ICD10: J01.01] Diagnosis: Allergic rhinitis due to pollen[ICD10: J30.1] Diagnosis: Other obesity due to excess calories[ICD10: E66.09] Gloria Hess MD, [facility] CPT-4: 53805 10/05/2015 [id number] EST. PATIENT, LEVEL IV Diagnosis: Polycystic ovarian syndrome[ICD10: E28.2] Diagnosis: Other skin changes[ICD10: R23.8] Diagnosis: Other abnormal glucose[ICD10: R73.09] Gloria Hess MD, [facility] CPT-4: 21690 09/01/2015 [id number] EST. PATIENT, LEVEL IV Diagnosis: Acute recurrent maxillary sinusitis[ICD10: J01.01] Diagnosis: Morbid (severe) obesity due to excess calories[ICD10: E66.01] Diagnosis: Essential (primary) hypertension[ICD10: I10] Diagnosis: Allergic rhinitis due to pollen[ICD10: J30.1] [facility] CPT-4: 93144 08/20/2015 ([id number]) OFFICE VISIT, NEW - LEVEL 4 Diagnosis: Essential (primary) hypertension[ICD10: I10] Diagnosis: Obstructive sleep apnea (adult) (pediatric)[ICD10: G47.33] Diagnosis: Other insomnia[ICD10: G47.09] Diagnosis: Snoring[ICD10: R06.83] Diagnosis: Morbid (severe) obesity due to excess calories[ICD10: E66.01] [facility] CPT-4: 08615 08/03/2015 Plan of Care Planned Activity Notes Codes Status Date Visit Plan: Vaginal candidiasis - will send [...] warmth, discharge. 01/08/2018 Appointment: Gloria Scott WPtel: [address] [place], [place] [id number] (30 min) Complex 01/08/2018 Patient Education: Patient [...] acutely worsen. 09/05/2017 Appointment: Gloria Scott WPtel: [facility]5 [facility] (15 min) [...] send RX 06/07/2017 Appointment: Gloria Scott WPtel: [facility]5 [facility] (15 min) Moderate 06/07/2017 Patient Education: [...] of injection. 04/24/2017 Appointment: Gloria Scott WPtel: [address] [place], [place] [phone] (30 min) Complex 04/24/2017 Patient Education: Patient Medication Summary Completed 04/24/2017 Appointment: Gloria Scott WPtel: [address] [place], [place] [phone] (30 min) Complex 03/09/2017 Appointment: Gloria Scott WPtel: [phone] [facility] (30 min) Complex 02/13/2017 Visit [...] allergy spray. 01/09/2017 Appointment: Gloria Scott WPtel: [facility]3 [facility] (10 min) Simple 01/09/2017 Patient Education: Patient Medication Summary Completed 01/09/2017 Patient Education: Obesity Completed 01/09/2017 Visit Plan: Vaginal candidiasis - will send RX - pt is to notify clinic if symptoms do not improve, if they worsen, or with any questions or concerns. Diabetes Mellitus - Uncontrolled - Will refer to policy intern - I have recommended for the patient [...] Mellitus - Uncontrolled - Will refer to policy intern - I have recommended for the patient [...] glucose control. 10/09/2016 Appointment: Gloria Scott WPtel: [phone] [facility] (30 min) Complex 10/09/2016 Patient Education: Patient Medication Summary Completed 10/09/2016 Patient Education: Obesity Completed 10/09/2016 Referral: Roni Roberts Referral Completed 09/18/2016 Care Plan: CT ABD & PELV W/CONTRAST LOINC : 77320-7 Pending 09/13/2016 Care Plan: Referral Order SNOMED-CT : [id number] Pending 09/13/2016 Visit Plan: Ongoing abdominal pain/hernia - will send RX - will refer - pt is to notify clinic if symptoms do not improve, if they worsen, or with any questions or concerns. 09/12/2016 Appointment: Gloria Scott WPtel: [phone] [facility] [place] (30 min) Complex 09/12/2016 Patient Education: Patient Medication Summary Completed 09/12/2016 Patient Education: Obesity Completed 09/12/2016 Care Plan: Referral Order SNOMED-CT : [id number] Pending 09/12/2016 Visit Plan: Ongoing abdominal/epigastric pain [...] control. 09/05/2016 [phone] ([facility] 09/05/2016 Patient Education: [...] spray. 06/16/2016 [phone] [place] (10 min) Simple 06/16/2016 Patient Education: [...] weight check. 06/13/2016 Appointment: Gloria Scott WPtel: [phone] [facility] (30 min) Complex 06/13/2016 Patient Education: Patient Medication Summary Completed 06/13/2016 Patient Education: Obesity Completed 06/13/2016 Appointment: Gloria Scott WPtel: [address] [facility] (30 min) Complex 06/08/2016 Visit Plan: Diabetes [...] check. 05/19/2016 [phone] [place] (30 min) Complex 05/19/2016 Patient [...] weight check. 05/08/2016 Appointment: Gloria Scott WPtel: [facility]8 [facility] (15 min) Moderate 05/08/2016 Patient Education: [...] the morning. 05/05/2016 Appointment: Tamy Lugo WPtel: [phone] (15 min) Moderate 05/05/2016 Patient Education: Patient Medication Summary Completed 05/05/2016 Patient Education: Obesity Completed 05/05/2016 Care Plan: Comp Metabolic Pending 05/05/2016 Appointment: Jocelyn Hess WPtel: [phone] [phone] Surgical Procedure 04/17/2016 Appointment: Injection 04/13/2016 Patient Education: Patient Medication Summary Completed 04/13/2016 Visit Plan: Right shoulder pain - will refer to PT - The pt is to use prn antiinflammatories to manage acute pain. The patient is to call the office if the pain is worsening or does not improve. 04/10/2016 Appointment: Gloria Scott WPtel: [facility]9 [facility] (30 min) Complex 04/10/2016 Patient Education: [...] glucose control. 04/06/2016 [facility]ment[phone] ([facility] min) Moderate 04/06/2016 Patient Education: [...] [place] 02/28/2016 [facility]ment: [phone] ([facility] min) Complex 02/28/2016 Patient Education: Patient Medication Summary Completed 02/28/2016 Patient Education: Obesity Completed 02/28/2016 [facility]ment: [phone] (15 min) Moderate 01/31/2016 Visit Plan: [...] or prn. 12/23/2015 [facility]ment: [phone] [facility] 12/23/2015 Patient Education: Patient [...] %Hba1C ADD TO BLOOD IN THE LAB. [facility] : 42016-2 Pending 08/13/2015 Visit Plan: Hypertension - uncontrolled [...] Referral: Roni Roberts Referral Initiated Instructions Comment MRI - left foot - ongoing history [...] Mellitus - Uncontrolled - Will refer to policy intern - I have recommended for the patient [...] and 5 units in the morning. . URI - Pt advised to increase [...] Mellitus - Uncontrolled - Will refer to policy intern - I have recommended for the patient [...] control. . Diabetes Mellitus - Uncontrolled - I [...]
[2018-07-15] MEDS ORDERED: MEPERIDINE (DEMEROL) INJ 50 MG/ML ONE (11:13)
--- NOTE | 2018-07-15 11:13 | Progress Note-Pre Operative ---
Pre-Operative Progress Note H&P Reviewed The H&P was reviewed, patient examined and no changes noted. Date Seen by Provider: Jul 09, 2018 Time Seen by Provider: 11:20 Date H&P Reviewed: Jul 15, 2018 Time H&P Reviewed: 11:12 Pre-Operative Diagnosis: sebaceous cyst right axilla. Nausea and weight loss. Chronic diarrhea MIGUEL CROCKER MD Jul 15, 2018 11:13
[2018-07-15] MEDS ORDERED: LACTATED RINGERS 1,000 ML IV PRN (11:17)
[2018-07-15] MEDS ORDERED: FAMOTIDINE 20MG/2ML IV (PEPCID) ONE (11:17)
--- OUTSIDE RECORDS SUMMARY | 2018-07-15 11:24 | XMS REPORT | Continuity of Care Document ---
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 RESTAURANT AREA MANAGER Ot R05 COUGH 04/10/2018 FAHAD ALARCON RESTAURANT AREA MANAGER Ot R06.00 DYSPNEA, UNSPECIFIED 04/10/2018 FAHAD ALARCON RESTAURANT AREA MANAGER Ot R07.9 CHEST PAIN, UNSPECIFIED 07/11/2018 FAHAD ALARCON RESTAURANT AREA MANAGER Ot E11.65 TYPE 2 DIABETES MELLITUS WITH HYPERGLYCE 07/11/2018 CARLA GIORDANO Ot D72.829 ELEVATED WHITE BLOOD CELL COUNT, UNSPECI 07/11/2018 CARLA GIORDANO Ot E11.9 TYPE 2 DIABETES MELLITUS WITHOUT COMPLIC 07/11/2018 CARLA GIORDANO Ot E28.2 POLYCYSTIC OVARIAN SYNDROME 07/11/2018 CARLA GIORDANO Ot I10 ESSENTIAL (PRIMARY) HYPERTENSION 07/11/2018 CARLA GIORDANO Ot K29.70 GASTRITIS, UNSPECIFIED, WITHOUT BLEEDING 07/11/2018 CARLA GIORDANO Ot M15.0 PRIMARY GENERALIZED (OSTEO)ARTHRITIS 07/11/2018 CARLA GIORDANO Ot R74.0 NONSPEC ELEV OF LEVELS OF TRANSAMNS LA 07/11/2018 PASQUALEJUVENAL JAMESNAHOMI Sharpe Ot Z79.4 HEAD OF RESEARCH & INSIGHTS (CURRENT) USE OF INSULIN 07/11/2018 CARLA GIORDANO Ot Z79.899 OTHER NURSING HOME (CURRENT) DRUG THERAPY 07/11/2018 OBI THOMASON, WILLY Castillo Ot Z01.818 ENCOUNTER FOR OTHER PREPROCEDURAL EXAMIN Procedures Code [place] [address] MRI EXTREMITY JOINT, LOWER LEFT, W/O CONTRAST 06/14/2012 51.23 LAPAROSCOPIC CHOLECYSTECTOMY 11/07/2012 84499 XRAY CHEST 2 VIEW 11/12/2012 24646 CMP 11/19/2012 74713 LIPID PANEL 11/19/2012 55375 A1C (RML) 11/19/2012 59300 TSH 11/19/2012 53988 CBC 11/19/2012 62145 PULMONARY FUNCTION TEST (IN- HOUSE) 11/19/2012 Willy [...] measurement by glucometer (mass/volume) 245 mg/dL 70-110 Urine beta human chorionic gonadotropin (hCG) measurement - 11/14/17 08:09 Urine beta human chorionic gonadotropin (hCG) measurement NEGATIVE NEGATIVE Methicillin resistant Staphylococcus aureus (MRSA) screening culture - 08:09 Methicillin resistant Staphylococcus aureus (MRSA) screening culture NEG NRG Capillary blood glucose measurement by glucometer (mass/volume) - 11/14/17 08: 24 Capillary blood glucose measurement by glucometer (mass/volume) 308 mg/dL 70-110 Capillary blood glucose measurement by glucometer (mass/volume) - 11/14/17 11: 13 Capillary blood glucose measurement by glucometer (mass/volume) 132 mg/dL 70-110 Encounters ACCT No. Visit Date/Time Discharge Status Pt. Type Provider Facility Loc./Unit Complaint [id number] 05/17/2013 12:57:00 05/17/2013 23:59:59 [facility] Outpatient ITZ LIMA DO [id number] 07/22/2012 14:11:00 07/22/2012 23:59:59 [facility] Outpatient [id number] 06/10/2012 11:54:00 06/10/2012 23:59:59 CLS Outpatient ITZ LIMA DO [id number] 01/29/2012 14:35:00 01/29/2012 23:59:59 CLS Outpatient [id number] 12/16/2012 17:14:00 Document Registration [id number] 12/02/2012 16:48:00 Document Registration [id number] 11/19/2012 17:41:00 Document Registration [id number] 11/12/2012 15:43:00 Document Registration [id number] 05/03/2017 09:45:35 05/03/2017 23:59:59 CLS Outpatient [id number] 03/26/2017 19:20:00 03/26/2017 23:59:59 CLS Outpatient MICHELLE MARKS APRN [facility] [id number] 07/11/2018 05:31:00 07/11/2018 10:25:00 DIS Outpatient WILLY CROCKER MD [facility] PREOP EXC. RT AXILLA CYST /EGD/COLO [id number] 03/25/2018 16:40:00 03/25/2018 23:59:59 CLS Outpatient FAHAD ALARCON APRN [facility] RAD COUGH [id number] 11/26/2017 18:02:00 11/26/2017 23:59:59 CLS Outpatient BIBIANA HINDS MD [facility] RAD TAILBONE PAIN;FALL [id number] 11/14/2017 07:58:00 11/14/2017 14:25:00 DIS Outpatient YAA RAINEY MD [facility] SDC LEFT TORN ACHILLES TENDON [id number] 11/09/2017 05:33:00 11/09/2017 10:43:00 DIS Outpatient YAA RAINEY MD [facility] PREOP LEFT ACHILLES TENDON REPAIR - PRONE [id number] 11/07/2017 20:10:00 11/07/2017 21:10:00 DIS Emergency ELVIRA PENA APRN [facility] ER ANKLE INJ [id number] 06/14/2017 13:38:00 06/14/2017 23:59:59 CLS Outpatient FAHAD ALARCON APRN [facility] RAD LT FOOT PAIN [id number] 03/15/2017 00:29:00 03/15/2017 23:59:59 CLS Preadmit CARLA GIORDANO [facility] ONC [id number] 12/14/2016 13:55:00 03/14/2017 00:01:00 DIS Outpatient CARLA GIORDANO [facility] ONC [id number] 02/11/2017 15:06:00 02/11/2017 23:59:59 CLS Outpatient ANCELMO CRAIG [employer]ANT ARE[employer] MANAGER [facility] RAD M79.672 [id number] 02/09/2017 10:00:00 02/09/2017 23:59:59 CLS Preadmit FAHAD ALARCON APRN [facility] DSME DM2 [id number] 11/10/2016 10:05:00 02/08/2017 00:01:00 DIS Outpatient FAHAD ALARCON APRN [facility] DSME DM2 [id number] 01/19/2017 12:10:00 01/19/2017 23:59:59 CLS Outpatient CHIDI OROZCO DO [facility] RAD SCREENING Z12.31, MENORRHAGIA N92.0 [id number] 10/02/2016 09:35:00 10/02/2016 23:59:59 CLS Outpatient WILLY CROCKER MD [facility] ENDO HISTORY OF ULCERS/ REFLUX [id number] 09/28/2016 05:48:00 09/28/2016 15:15:00 DIS Outpatient WILLY CROCKER MD [facility] PREOP EGD [id number] 09/07/2016 07:24:00 09/07/2016 23:59:59 CLS Outpatient FAHAD ALARCON APRN [facility] RAD ABDOMINAL PAIN, EPIGASTRIC PAIN [id number] 09/07/2016 08:28:00 09/07/2016 11:26:00 DIS Emergency KYLAH THOMASON, SHERI Bernardo [facility] ER CHEST PAIN [id number] 05/06/2016 14:00:00 05/06/2016 17:02:00 DIS Emergency JUWAN THOMASON, SANDRA Medina [facility] ER ELEVATED BLOOD SUGAR [id number] 03/04/2016 13:33:00 03/04/2016 23:59:59 CLS Outpatient PORSCHE GARCIA INSTRUCTIONAL TECHNOLOGIST [facility] QUICK COUGH [id number] 03/02/2016 13:10:00 03/02/2016 23:59:59 CLS Outpatient FAHAD ALARCON [employer] ARE[employer] MANAGER [facility] RAD L ARM NODULE [id number] 07/21/2015 06:03:00 07/21/2015 23:59:59 CLS Outpatient YAA RAINEY MD [facility] SDC LEFT TORN MEDIAL MENISCUS [id number] 07/15/2015 15:01:00 07/15/2015 23:59:59 CLS Outpatient YAA RAINEY MD [facility] PREOP LEFT TORN MEDIAL MENISCUS [id number] 06/29/2015 08:57:00 06/29/2015 23:59:59 CLS Outpatient ARTHUR CAMPOSP [facility] RAD LEFT KNEE PAIN [id number] 05/13/2013 13:58:00 05/13/2013 23:59:59 CLS Outpatient JENNIFERJOSEDI INSTRUCTIONAL TECHNOLOGIST [facility] QUICK FEVER/SOA [id number] 02/24/2013 08:06:00 02/24/2013 11:20:00 DIS Outpatient WILLY CROCKER MD [facility] SDC UPPER GASTRIC PAIN [id number] 02/20/2013 07:13:00 02/20/2013 23:59:59 CLS Outpatient WILLY CROCKER MD [facility] PREOP UPPER GASTRIC PAIN [id number] 01/31/2013 20:10:00 02/01/2013 07:20:00 DIS Outpatient KATHARINA MENDOZAP [facility] SLEEP SNORING,CHOKING, ABN LIMB MOVEMENT,EXCESSIVE DAYTIM [id number] 01/10/2013 08:53:00 01/10/2013 23:59:59 CLS Outpatient ALEXANDRO MENDOZA DO [facility] RAD RUQ PAIN,BLOATING [id number] 01/04/2013 10:30:00 01/04/2013 23:59:59 CLS Outpatient KATHARINA MENDOZAP [facility] LAB PCOS, JOINT PAIN, INSOMNIA, VITAMIN DEFICIENCY [id number] 11/28/2012 22:54:00 11/29/2012 02:09:00 DIS Emergency PRAKASH DEMARCO [facility] ER ABD PAIN [id number] 11/28/2012 19:36:00 11/28/2012 23:59:59 CLS Emergency [id number] 11/06/2012 20:13:00 11/08/2012 11:07:00 DIS Inpatient TASNEEM THOMASON, NICHOLAS Duncan [facility] SURGICAL INTRACTABLE RUQ PAIN ,LEUKOCYTOSIS [id number] 07/15/2018 12:00:00 PEN Yinka CROCKER MD, [facility] LOSS/NAUSEA/CHRONIC DIARRHEA/CYST [id number] 07/27/2017 08:55:00 Document Registration [id number] 07/27/2017 08:54:00 Document Registration [id number] 09/18/2015 21:54:00 Document Registration [id number] 07/15/2015 15:08:00 Document Registration [id number] 06/13/2012 14:25:00 Document Registration [id number] 01/15/2012 10:30:00 Document Registration [id number] 09/09/2009 20:16:00 Document Registration
[2018-07-15] MEDS ORDERED: VANCOMYCIN INJECTION 1,000 MG in NS (IVPB) 250 ML IV ONE (11:30)
[2018-07-15] MEDS ORDERED: FAMOTIDINE 20MG/2ML IV (PEPCID) IV ONE (12:45)
--- NOTE | 2018-07-15 12:45 | Operative Report ---
Operative Report Date of Procedure/Surgery Jul 15, 2018 Surgeon (s) MIGUEL CROCKER MD Account Representative (s): N/A Post-Operative Diagnosis hydradenitis right axilla Normal stomach and duodenum 4 mm polyp at the cecum Procedure Performed excision of hydradenitis right axilla Upper endoscopy with antral biopsy for H. pylori Colonoscopy to cecum Snare polypectomy Description of Procedure Anesthesia Type: General Estimated blood loss (mL): minimal Specimen(s) collected/removed hydradenitis right axilla. Antral mucosa for H. pylori. Cecal polyp Description of the Procedure Indication for the procedures: This lady presented with what appeared to be a sebaceous cyst involving the right axilla. She was offered excision under general anesthetic. During the same visit, she was offered an upper endoscopy regarding nausea and a previous history of peptic ulcers, along with colonoscopy , to investigate chronic diarrhea. She also reported a family history of colon cancer. Informed consent was obtained after reviewing the procedures in detail. Description of the procedures: Excision of hydradenitis right axilla: She was placed supine on the operative table and general anesthesia induced. Antibiotics were administered intravenously as prophylaxis against wound infection. Right axilla was prepared and draped in the usual sterile manner. Preemptive analgesia was established using 0.5 percent Marcaine with epinephrine. An elliptical incision about 3 cm in length by 1.5 cm in width was made and the area excised. It had an appearance of hydradenitis and sent for histologic examination. Hemostasis was achieved using cautery and the incision closed using 3-0 Vicryl for the subcutaneous tissue and a 4-0 Vicryl for skin, in a subcuticular fashion. Steri-Strips and a nonadherent dressing with applied. Upper endoscopy/antral biopsy: The flexible gastroscope was introduced down the esophagus, past the stomach, into the proximal duodenum. Findings: Esophagus: Normal Stomach and duodenum were normal as well. Due to previous gastric erosions, antral biopsy was repeated Colonoscopy/polypectomy: Digital rectal examination was unremarkable. The colonoscope was then introduced into the rectum and advanced all the way up to the cecum. The quality of bowel preparation was excellent. The scope was then withdrawn slowly and the mucosa examined in a systematic fashion. Finding on a 4 mm polyp at the cecum, that was snared and retrieved. She tolerated the procedure well and was taken back to the nursing area in a stable condition. Impression: Chronic diarrhea. Positive family history of colon cancer. 4 mm cecal polyp excised. Recommend repeating 2 years. Findings of the Procedure See op report Allergies and Home Medications Allergies Coded Allergies: fentanyl (Verified Allergy, Intermediate, HIVES, 07/11/18) ondansetron (Verified Allergy, Intermediate, HEADACHES, 07/11/18) Sulfa (Sulfonamide Antibiotics) (Unverified Allergy, Mild, rash, 07/11/18) doxycycline (Unverified Allergy, Mild, rash, 07/11/18) morphine (Verified Allergy, Unknown, HIVES, Pt has received Hydrocodone & Hydromorphone, 07/11/18) Penicillins (Unverified Adverse Reaction, Intermediate, hives, 07/11/18) Home Medications Metoprolol Succinate 100 Mg Tab.er.24h, 100 MG PO DAILY, (Reported) Pantoprazole Sodium 40 Mg Tablet.dr, 40 MG PO DAILY, (Reported) Promethazine HCl 25 Mg Tablet, 25 MG PO Q6H PRN for NAUSEA/VOMITING, (Reported) Patient Home Medication List Home Medication List Reviewed: Yes Copy Copies To 1: BIBIANA HINDS MD, XAVIER M MD Jul 15, 2018 12:45
[2018-07-15] MEDS ORDERED: TRAM50TA2 PO (12:47)
--- NOTE | 2018-07-15 12:48 | Discharge Inst-Simple/Standard ---
Discharge Inst-Standard Discharge Medications New, Converted or Re-Newed RX: RX on Chart Patient Instructions/Follow Up Plan of Care/Instructions/FU: dressings off in 48 hours. Repeat colonoscopy in 2 years. Follow up with her primary regarding management of diarrhea Activity as Tolerated: Yes Discharge Diet: No Restrictions MIGUEL CROCKER MD Jul 15, 2018 12:48
[2018-07-15] MEDS ORDERED: MEPERIDINE (DEMEROL) INJ 50 MG/ML IVP ONE (13:00)
--- NOTE | 2018-07-15 13:26 | Anesthesia-General Post-Op ---
General Patient Condition Mental Status/LOC: Same as Preop Cardiovascular: Satisfactory Nausea/Vomiting: Absent Respiratory: Satisfactory Pain: Controlled Complications: Absent Post Op Complications Complications None Follow Up Care/Instructions Patient Instructions None needed. Anesthesia/Patient Condition Patient Condition Patient is doing well, no complaints, stable vital signs, no apparent adverse anesthesia problems. No complications reported per nursing. D/C home per [facility] Criteria: Yes RUCHI ARRIOLA CRNA Jul 15, 2018 13:26
[2018-07-15] MEDS ORDERED: PROMETHAZINE INJ 25 MG/ML (PHENERGAN) AMP ONE (13:34)
[2018-07-15] MEDS ORDERED: PROMETHAZINE INJ 25 MG/ML (PHENERGAN) AMP IVP ONE (13:38)
[2018-07-15 13:55] VITALS: BP 121/77
[2018-07-15 14:25] VITALS: BP 120/69
== END 2018-07-15 14:48 | disposition home or self-care (01) ==
LOC: SDC 10:35
PROVIDERS: ATTEND Surgery
DX: L73.2 Hidradenitis suppurativa (principal); D12.0 Benign neoplasm of cecum; K52.9 Noninfective gastroenteritis and colitis, unspecified; K31.9 Disease of stomach and duodenum, unspecified; Z80.0 Family history of malignant neoplasm of digestive organs; Z88.5 Allergy status to narcotic agent; Z88.2 Allergy status to sulfonamides; Z88.0 Allergy status to penicillin; Z79.899 Other long term (current) drug therapy; Z87.11 Personal history of peptic ulcer disease; E11.9 Type 2 diabetes mellitus without complications; Z79.4 Long term (current) use of insulin; E28.2 Polycystic ovarian syndrome; Z87.891 Personal history of nicotine dependence; I10 Essential (primary) hypertension; J45.909 Unspecified asthma, uncomplicated; E66.01 Morbid (severe) obesity due to excess calories; K21.9 Gastro-esophageal reflux disease without esophagitis; Z68.41 Body mass index [BMI] 40.0-44.9, adult
CPT/HCPCS: 82962; 84703; 87081

== ENCOUNTER 2018-12-16 19:58 | Observation (INO) | payer OTHER ==
[~2018-12-16] VITALS: Ht 149.9 cm; Wt 94.6 kg
[~2018-12-16 19:58] MED LIST changes: +TRAM50TA2 PO
[2018-12-16] MEDS ORDERED: NS IV 1000 ML 1,000 ML IV SCH ×2 (20:23→21:22)
[2018-12-16 20:25] LABS: BILIRUBIN,URINE 3+ (NEGATIVE); CLARITY,URINE SL CLOUDY; COLOR,URINE DARK YELLOW; GLUCOSE, URINE (UA) NEGATIVE (NEGATIVE); KETONES,URINE 1+ (NEGATIVE); LEUKOCYTE ESTERASE ,URINE 3+ (NEGATIVE); NITRITE,URINE POSITIVE (NEGATIVE); PH,URINE 6.5 (5-9); PROTEIN,URINE 4+ (NEGATIVE); UROBILINOGEN,URINE 8 MG/DL (NORMAL)
[2018-12-16 20:27] LABS: BACTERIA,URINE TRACE /HPF; RBC,URINE >100 /HPF
[2018-12-16] MEDS ORDERED: KETOROLAC 30 MG/ML VIAL IVP STA (20:35)
[2018-12-16 20:43] LABS: BASOPHILS # (AUTO) 0.1 10^3/uL (0.0-0.1); BASOPHILS % (AUTO) 0 % (0-10); EOSINOPHILS # (AUTO) 0.1 10^3/uL (0.0-0.3); EOSINOPHILS % (AUTO) 1 % (0-10); HEMATOCRIT 45 % (35-52); HEMOGLOBIN 15.3 G/DL (11.5-16.0); LYMPHOCYTES # (AUTO) 3.8 X 10^3 (1.0-4.0); LYMPHOCYTES % (AUTO) 18 % (12-44); MEAN CORPUSCULAR HEMOGLOBIN 29 PG (25-34); MEAN CORPUSCULAR HGB CONC 34 G/DL (32-36); MEAN CORPUSCULAR VOLUME 86 FL (80-99); MEAN PLATELET VOLUME 10.3 FL (7.4-10.4); MONOCYTES # (AUTO) 0.9 X 10^3 (0.0-1.0); MONOCYTES % (AUTO) 4 % (0-12); NEUTROPHILS # (AUTO) 16.9 X 10^3 (1.8-7.8); NEUTROPHILS % (AUTO) 78 % (42-75); PLATELET COUNT 458 10^3/uL (130-400); WHITE BLOOD COUNT 21.9 10^3/uL (4.3-11.0)
[2018-12-16 20:54] LABS: ANISOCYTOSIS SLIGHT; BAND NEUTROPHILS 1 %; BASOPHILS % (MANUAL) 0 %; EOSINOPHILS % (MANUAL) 0 %; LYMPHOCYTES % (MANUAL) 11 %; MONOCYTES % (MANUAL) 1 %; NEUTROPHILS % (MANUAL) 82 %; REACTIVE LYMPHOCYTES 5 %
[2018-12-16 21:04] LABS: ALANINE AMINOTRANSFERASE 39 U/L (0-55); ALBUMIN 4.2 GM/DL (3.2-4.5); ALKALINE PHOSPHATASE 99 U/L (40-136); BILIRUBIN,TOTAL 0.7 MG/DL (0.1-1.0); BUN/CREATININE RATIO 10; CALCIUM 9.9 MG/DL (8.5-10.1); CARBON DIOXIDE 23 MMOL/L (21-32); CHLORIDE 101 MMOL/L (98-107); CREATININE SERUM 0.69 MG/DL (0.60-1.30); GFR ESTIMATED > 60; GLUCOSE 194 MG/DL (70-105); POTASSIUM 3.9 MMOL/L (3.6-5.0); SODIUM 138 MMOL/L (135-145); TOTAL PROTEIN 7.3 GM/DL (6.4-8.2)
--- NOTE | 2018-12-16 21:33 | ED GU-Female ---
General Chief Complaint: - Urinary Stated Complaint: ABD PAIN Nursing Triage Note: PT ARRIVES WITH C/O FREQUENCY, URGENCY OF URINE SINCE SUNDAY. PT STATES SUNDAY SHE BEGAN TAKING PYRIDIUM AND HAD DECREASE IN EATING AND DRINKING. PT DENIES N/V/D/FEVER. PT DENIES FLANK PAIN. PT STATES TODAY SHE WAS STARTED ON LEVAQUIN, MYRBETRIA AND "SOMETHING FOR BLADDER SPASMS" Nursing Sepsis Screen: No Definite Risk History of Present Illness Date Seen by Provider: Dec 16, 2018 Time Seen by Provider: 20:20 Initial Comments 48-year-old female presents for UTI symptoms. She was seen earlier today by VICKI Gonzalez Dr[facility]s office, started on Levaquin. She took the first dose at 1800. She has been taking Pyridum for 2 days and started on Myrbetria today. Is having significant bladder spasms and frequency with urination. She denies a recent UTI. Timing/Duration: getting worse Severity/Quality: moderate, burning, cramping Location: suprapubic Radiation: right flank, left flank Activities at Onset: none Associated Symptoms: abdominal pain, dysuria; No fever/chills, No loss of b ladder control, No lower back pain, No nausea/vomiting; polyuria, urinary frequency Allergies and Home Medications Allergies Coded Allergies: fentanyl (Verified Allergy, Intermediate, HIVES, 07/11/18) ondansetron (Verified Allergy, Intermediate, HEADACHES, 07/11/18) Sulfa (Sulfonamide Antibiotics) (Unverified Allergy, Mild, rash, 07/11/18) doxycycline (Unverified Allergy, Mild, rash, 07/11/18) morphine (Verified Allergy, Unknown, HIVES, Pt has received Hydrocodone & Hydromorphone, 07/11/18) Penicillins (Unverified Adverse Reaction, Intermediate, hives, 07/11/18) Home Medications Metoprolol Succinate 100 Mg Tab.er.24h, 100 MG PO DAILY, (Reported) Pantoprazole Sodium 40 Mg Tablet.dr, 40 MG PO DAILY, (Reported) Promethazine HCl 25 Mg Tablet, 25 MG PO Q6H PRN for NAUSEA/VOMITING, (Reported) Tramadol HCl 50 Mg Tablet, 50 MG PO Q12H Prescribed by: MIGUEL CROCKER on 07/15/18 1247 Patient Home Medication List Home Medication List Reviewed: Yes Review of Systems Review of Systems Constitutional: no symptoms reported Genitourinary: see HPI, burning, dysuria, frequency, flank pain, hematuria, pain, urgency All Other Systemes Reviewed Negative Unless Noted: Yes Past Vdmzdmy-Ucdfli-Gzlazv Hx Past Med/Social Hx: Reviewed Nursing Past Med/Soc Hx Patient Social History Alcohol Use: Denies Use Recreational Drug Use: No Smoking Status: Former Smoker Type Used: Cigarettes Former Smoker, Quit: Jun 30, 2014 Recent Foreign Travel: No Contact w/Someone Who Travel: No Recent Infectious Disease Expo: No Recent Hopitalizations: No Physical Abuse: No Sexual Abuse: No Mistreated: No Fear: No Immunizations Up To Date Tetanus Booster (TDap): Unknown Date of Pneumonia Vaccine: Apr 17, 2016 Date of Influenza Vaccine: Mar 25, 2018 Seasonal Allergies Seasonal Allergies: Yes Past Medical History Surgeries: Yes (LIPOMA FROM NECK, MENISCUS REPAIR, ACHILES TENDON) Section, Gallbladder, Tonsillectomy Respiratory: Yes (USES XOPENEX IF NEEDED-USED ONCE IN LAST YEAR) Asthma Currently Using CPAP: No Currently Using BIPAP: No Cardiac: Yes (HX TACHYCARDIA) Hypertension Neurological: No Neuropathy Reproductive Disorders: No Female Reproductive Disorders: Polycystic Ovarian Dis Sexually Transmitted Disease: No HIV/AIDS: No Genitourinary: No Neurogenic Bladder Gastrointestinal: Yes Gastroesophageal Reflux, Chronic Diarrhea, Ulcer Musculoskeletal: Yes Arthritis Endocrine: Yes (DIET CONTOLLED) Diabetes, Insulin dep HEENT: Yes (GLASSES) Loss of Vision: Bilateral Hearing Impairment: Denies Cancer: No Psychosocial: No Integumentary: No Blood Disorders: No Adverse Reaction/Blood Tranf: No (N/A) Family Medical History No Pertinent Family Hx Physical Exam Vital Signs Vital Signs - First Documented 12/16/18 20:19 Temp 97.7 Pulse 90 Resp 18 B/P (MAP) 157/108 (124) Capillary Refill : Less Than 3 Seconds Height, Weight, BMI Height: 4'11.00" Weight: 211lbs. 0.0oz. 95.440951ur; 42.6 BMI Method:Stated General Appearance: WD/WN, mild distress (secondary to pain) HEENT: PERRL/EOMI, normal ENT inspection, TMs normal, pharynx normal Neck: non-tender, full range of motion, supple, normal inspection Cardiovascular: normal peripheral pulses, regular rate, rhythm Respiratory: chest non-tender, lungs clear, normal breath sounds Gastrointestinal: normal bowel sounds, soft, no organomegaly, distended; No guarding, No rebound; tenderness (suprapubic) Back: normal inspection, no vertebral tenderness, CVA tenderness (R), CVA tenderness (L) Extremities: normal range of motion, non-tender, normal inspection, no pedal edema, no calf tenderness, normal capillary refill Neurologic/Psychiatric: no motor/sensory deficits, alert, normal mood/affect, oriented x 3 Skin: normal color, warm/dry Lymphatic: no adenopathy Focused Exam Lactate Level 12/16/18 21:22: Lactic Acid Level 1.53 Lactic Acid Level Laboratory Tests Test 12/16/18 21:22 Lactic Acid Level 1.53 MMOL/L (0.50-2.00) Progress/Results/Core Measures Suspected Sepsis Recent Fever Within 48 Hours: No Infection Criteria Present: Documented Infection New/Unexplained Altered Menta: Yes Sepsis Screen: No Definite Risk SIRS Temperature:97.7 Pulse: 90 Respiratory Rate: 18 Laboratory Tests 12/16/18 20:37: White Blood Count 21.9H Blood Pressure 157 /108 Mean: 124 12/16/18 21:22: Lactic Acid Level 1.53 Laboratory Tests 12/16/18 20:37: Creatinine 0.69, Platelet Count 458H, Total Bilirubin 0.7 Results/Orders Lab Results Laboratory Tests Test 12/16/18 20:12 12/16/18 20:37 12/16/18 21:22 Range/Units Urine Color DARK YELLOW Urine Clarity SL CLOUDY Urine pH 6.5 5-9 Urine Specific [place] 1.015 L 1.016-1.022 Urine Protein 4+ NEGATIVE Urine Glucose (UA) NEGATIVE NEGATIVE Urine Ketones 1+ H NEGATIVE Urine Nitrite POSITIVE H NEGATIVE Urine Bilirubin 3+ H NEGATIVE Urine Urobilinogen 8 H NORMAL MG/DL Urine Leukocyte Esterase 3+ H NEGATIVE Urine RBC (Auto) 5+ H NEGATIVE Urine RBC >100 H /HPF Urine WBC 5-10 H /HPF Urine Squamous Epithelial Cells 5-10 /HPF Urine Crystals NONE /LPF Urine Bacteria TRACE /HPF Urine Casts NONE /LPF Urine Mucus NEGATIVE /LPF Urine Culture Indicated YES White Blood Count 21.9 H 4.3-11.0 10^3/uL Red Blood Count 5.29 4.35-5.85 10^6/uL Hemoglobin 15.3 11.5-16.0 G/DL Hematocrit 45 35-52 % Mean Corpuscular Volume 86 80-99 FL Mean Corpuscular Hemoglobin 29 25-34 PG Mean Corpuscular Hemoglobin Concent 34 32-36 G/DL Red Cell Distribution Width 14.0 10.0-14.5 % Platelet Count 458 H 130-400 10^3/uL Mean Platelet Volume 10.3 7.4-10.4 FL Neutrophils (%) (Auto) 78 H 42-75 % Lymphocytes (%) (Auto) 18 12-44 % Monocytes (%) (Auto) 4 0-12 % Eosinophils (%) (Auto) 1 0-10 % Basophils (%) (Auto) 0 0-10 % Neutrophils # (Auto) 16.9 H 1.8-7.8 X 10^3 Lymphocytes # (Auto) 3.8 1.0-4.0 X 10^3 Monocytes # (Auto) 0.9 0.0-1.0 X 10^3 Eosinophils # (Auto) 0.1 0.0-0.3 10^3/uL Basophils # (Auto) 0.1 0.0-0.1 10^3/uL Neutrophils % (Manual) 82 % Lymphocytes % (Manual) 11 % Monocytes % (Manual) 1 % Eosinophils % (Manual) 0 % Basophils % (Manual) 0 % Band Neutrophils 1 % Reactive Lymphocytes 5 % Anisocytosis SLIGHT Sodium Level 138 135-145 MMOL/L Potassium Level 3.9 3.6-5.0 MMOL/L Chloride Level 101 98-107 MMOL/L Carbon Dioxide Level 23 21-32 MMOL/L Anion Gap 14 5-14 MMOL/L Blood Urea Nitrogen 7 7-18 MG/DL Creatinine 0.69 0.60-1.30 MG/DL Estimat Glomerular Filtration Rate > 60 BUN/Creatinine Ratio 10 Glucose Level 194 H 70-105 MG/DL Calcium Level 9.9 8.5-10.1 MG/DL Corrected Calcium 9.7 8.5-10.1 MG/DL Total Bilirubin 0.7 0.1-1.0 MG/DL Aspartate Amino Transf (AST/SGOT) 24 5-34 U/L Alanine Aminotransferase (ALT/SGPT) 39 0-55 U/L Alkaline Phosphatase 99 40-136 U/L Total Protein 7.3 6.4-8.2 GM/DL Albumin 4.2 3.2-4.5 GM/DL Lactic Acid Level 1.53 0.50-2.00 MMOL/L My Orders Orders - CASHANGEL Ua Culture If Indicated (12/16/18 20:02) Ed Iv/Invasive Line Start (12/16/18 20:23) Ns Iv 1000 Ml (Sodium Chloride 0.9%) (12/16/18 20:23) Cbc With Automated Diff (12/16/18 20:24) Comprehensive Metabolic Panel (12/16/18 20:25) Urine Culture (12/16/18 20:12) Ketorolac Injection (Toradol Injection) (12/16/18 20:35) Manual Differential (12/16/18 20:37) Blood Culture (12/16/18 21:11) Lactic Acid Analyzer (12/16/18 21:11) Ct Abd/Pelvis Wo(Kidney Stone) (12/16/18 21:18) Ed Iv/Invasive Line Start (12/16/18 21:22) Ns Iv 1000 Ml (Sodium Chloride 0.9%) (12/16/18 21:22) Vital Signs/I&O 12/16/18 20:19 Temp 97.7 Pulse 90 Resp 18 B/P (MAP) 157/108 (124) Capillary Refill : Less Than 3 Seconds Blood Pressure Mean: 124 Progress Note : Time: 20:20 Progress Note Patient seen and evaluated, will obtain UA, CBC and CMP. She does not meet sepsis criteria (hypertensive, afebrile, pulse 70s), will hydrate with 1 L normal saline IV. Toradol 30 mg IV for pain. 2100 WBC 21.9 significant UTI her UA. Patient reports her pain has improved, will obtain CT abdomen and pelvis. [address] HINDS per phone, agreed with admission for observation 2144 patient agreed with plans for admission, significant improvement since her Toradol and IV fluids. Labs and CT results reviewed with her. All questions answered. She is taking ice chips and water with no nausea or vomiting. Temperature 97.1. She has remained normotensive and pulse 70-90. Diagnostic Imaging Diagonstic Imaging: CT Plain Films/CT/US/NM/MRI: abdomen, pelvis Comments NAME: TERESA GUAN Jerzy [facility] REC#: [id number] PT STATUS: ADM Isidra : 1970 PHYSICIAN: ANGEL CASTREJON ADMIT DATE: 12/16/18/4TH Draft Date of Exam:12/16/18 CT ABD/PELVIS WO(KIDNEY STONE) PROCEDURE: CT urinary tract, rule out kidney stone. TECHNIQUE: Multiple contiguous axial images were obtained through the abdomen and pelvis without the use of intravenous contrast. Auto Exposure Controls were utilized during the CT exam to meet ALARA standards for radiation dose reduction. INDICATION: Bilateral abdominal pain. Correlation is made with prior CT from 09/07/2016. The lung bases are clear. The liver demonstrates diffuse low density consistent with hepatic steatosis. The liver is enlarged measuring 19.2 cm. No discrete liver mass is identified. Gallbladder appears to be surgically absent. There is no biliary duct dilatation. The pancreas and spleen are unremarkable. No adrenal mass is identified. No renal calculi or hydronephrosis is identified. No definite ureteral calculi are seen. Aorta is nonaneurysmal. Bowel loops are normal in caliber. There is no obstruction. No inflammatory changes are seen. There is no free fluid. The bladder and uterus are unremarkable. IMPRESSION: 1. Hepatomegaly and hepatic steatosis. 2. No evidence of urinary tract calculi or obstruction. No acute feature in the abdomen or pelvis is seen. Dictated on workstation # [id number] Dict: 12/16/182132 Trans: 12/16/182139 [facility] [id number] Interpreted by: GEENA ALY MD Electronically signed by: Reviewed: Reviewed by Me Departure Impression Primary Impression: UTI (urinary tract infection) Qualified Codes: N30.01 - Acute cystitis with hematuria Additional Impression: Pyelonephritis Disposition: ADMITTED INPATIENT Condition: Stable Admissions Decision to Admit Reason: Admit from ER (General) Decision to Admit/Date: Dec 16, 2018 Time/Decision to Admit Time: 21:30 Departure-Patient Inst. Referrals: BIBIANA HINDS MD (PCP) Primary Care Physician FAHAD ALARCON APRN (Family) Primary Care Physician Copy Copies To 1: BIBIANA HINDS MD, AMY ARNP Dec 16, 2018 21:33
--- NOTE | 2018-12-16 21:41 | Diagnostic Imaging Report ---
PROCEDURE: CT urinary tract, rule out kidney stone. TECHNIQUE: Multiple contiguous axial images were obtained through the abdomen and pelvis without the use of intravenous contrast. Auto Exposure Controls were utilized during the CT exam to meet ALARA standards for radiation dose reduction. INDICATION: Bilateral abdominal pain. Correlation is made with prior CT from 09/07/2016. The lung bases are clear. The liver demonstrates diffuse low density consistent with hepatic steatosis. The liver is enlarged measuring 19.2 cm. No discrete liver mass is identified. Gallbladder appears to be surgically absent. There is no biliary duct dilatation. The pancreas and spleen are unremarkable. No adrenal mass is identified. No renal calculi or hydronephrosis is identified. No definite ureteral calculi are seen. Aorta is nonaneurysmal. Bowel loops are normal in caliber. There is no obstruction. No inflammatory changes are seen. There is no free fluid. The bladder and uterus are unremarkable. IMPRESSION: 1. Hepatomegaly and hepatic steatosis. 2. No evidence of urinary tract calculi or obstruction. No acute feature in the abdomen or pelvis is seen. Dictated by: Dictated on workstation # [id number]
[2018-12-16 22:20] VITALS: BP 139/76
--- NOTE | 2018-12-16 22:20 | NUR ---
TERESA GUAN admitted to room 422-1, with an admitting diagnosis of uti, pylenophritis, on 12/16/18 from ER via , accompanied by ER Staff. TERESA GUAN introduced to surroundings, call light, bed controls, phone, TV, temperature control, lights, meal times, smoking policy, visitor policy, side rail policy, bathrooms and showers. Patient Rights given to patient in the handbook. TERESA GUAN verbalizes understanding that [facility] is not responsible for the loss or damage to any personal effects or valuables that are kept in the patients possession during their hospitalization.
[2018-12-16] MEDS ORDERED: ACETAMINOPHEN 325 MG TABLET PO PRN (23:15)
[2018-12-16] MEDS ORDERED: PROMETHAZINE INJ 25 MG/ML (PHENERGAN) AMP IV PRN (23:15)
[2018-12-16] MEDS ORDERED: PHENAZOPYRIDINE 100 MG (PYRIDIUM) TABLET PO PRN (23:15)
[2018-12-16] MEDS: NS IV 1000 ML 1,000 ML IV SCH (23:48)
[2018-12-17] VITALS: BP 131/82
--- OUTSIDE RECORDS SUMMARY | 2018-12-17 02:06 | XMS REPORT | Encounter Summary ---
Author [facility] Address Unknown Phone Unavailable Care Team Providers Care Publication Designer Name Role Phone Gloria Scott NP PCP Unavailable Reason for Visit * Reason Comments Skin Problem * Consult, Test & Treat (Routine) Referred By Contact Referred To Contact Status Reason Specialty Diagnoses / Procedures Jocelyn Hess MD [address] [place] [address] [facility] [address] [place] [id number] Authorized Dermatology Diagnoses hidrindenitis supperativa_[facility]-re cords P rocedures consult Encounter Details Care Team Description Date Type Department Anastasia Saeed MD [address] [place] [address] Tinea corporis (Primary Dx); Hidradenitis suppurativa; Inflamed epidermoid cyst of skin; Multiple benign nevi 10/09/2018 Office Visit [facility] [address] [id number] Social History Date Tobacco Use Types Packs/Day Years Used Former Smoker Smokeless Tobacco: Never Used Drinks/Week oz/Week Comments Alcohol Use Yes Sex Assigned at Date Recorded Not on file Industry Job Start Date Occupation Not on file Not on file Not on file Travel End Travel History Travel Start No recent travel history available. documented as of this encounter Last Filed Vital Signs Reading Time Taken Comments Vital Sign - - Blood Pressure - - Pulse - - Temperature - - Respiratory Rate - - Oxygen Saturation - - Inhaled Oxygen Concentration 92.5 kg (204 lb) 10/09/2018 11:34 AM CDT Weight 149.9 cm (4' 11") 10/09/2018 11:34 AM CDT Height 41.2 10/09/2018 11:34 AM CDT Body Mass Index documented in this encounter Patient Instructions * Patient Instructions* Anastasia Saeed MD - 10/09/2018 11:30 AM CDT Start Terbinafine 250mg daily for 2 weeks. You can stop after 1 week if cleared. Monitor extremely closely for low heart rate and low blood pressure. You can apply ketoconazole cream twice daily to small areas documented in this encounter Progress Notes * Jorge Boswell MD - 10/09/2018 11:30 AM CDT ATTESTATION I personally performed the gregory portions of the E/M visit, discussed case with re sident and concur with resident documentation of history, physical exam, assessm ent, and treatment plan unless otherwise noted. Staff name: Jorge Boswell MD Date: 10/09/2018 * Anastasia Saeed MD - 10/09/2018 11:30 AM CDT Date of Service: 10/09/2018 Subjective: Aleksandra Daniel is a 47 y.o. female. History of Present Illness New pt. Referred by Dr. Jocelyn Hess 1. Reported hx of hidradenitis with one "cyst" in R axilla - never had other red painful bumps on face, chest, armpits, breasts, groin, mahogany vate area in her entire life - Developed cyst in R axilla around - Cyst recurred a month later and PCP recommend that patient get cyst surgically removed - Surgeon told patient that it was HS - Not treating - History of tobacco use; has quit and restarted several times - most recently q uit 2 months ago 2. Dermatitis - Ongoing since fall 2017 - Worse around axilla, back and chest - Heat exacerbates rash - Has not been treating 3. Brown lesions on the head, trunk, arms and legs. - these have been present for many years. - No known exacerbating factor - none are itching, bleeding, or painful. - uses sunscreen of at least SPF 30 - there is history of blistering sunburns; no history of tanning bed use. 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 Negative for appetite change , fatigue and unexpected weight change. HENT: Positive for congestion. Negative for mouth sores and sore throat. Eyes: Positive for redness and itching. Negative for pain and visual disturbance . Respiratory: Positive for cough. Negative for shortness of breath. Cardiovascular: Positive for palpitations. Negative for leg swelling. Gastrointestinal: Positive for abdominal pain, diarrhea, nausea and vomiting. Ne gative for blood in stool. Endocrine: Negative. Genitourinary: Negative. Negative for difficulty urinating and hematuria. Musculoskeletal: Positive for arthralgias and myalgias. Skin: Positive for color change and rash. Negative for pallor and wound. Allergic/Immunologic: Negative. Neurological: Negative. Negative for dizziness and seizures. Hematological: Negative. Does not bruise/bleed easily. Psychiatric/Behavioral: Negative. Negative for confusion and dysphoric mood. Th e patient is not nervous/anxious. All other systems reviewed and are negative. Objective: ALPRAZolam (XANAX) 0.25 mg tablet TK 1 T PO D PRN HYDROcodone/acetaminophen (NORCO) 7.5/325 mg tablet ibuprofen (MOTRIN) 800 mg tablet metoprolol XL (TOPROL XL) 100 mg extended release tablet TK 1 T PO D pantoprazole DR (PROTONIX) 40 mg tablet promethazine (PHENERGAN) 25 mg tablet TK 1 T PO Q 6 TO 8 H PRN Vitals: 10/09/18 1134 Weight: 92.5 kg (204 lb) Height: 149.9 cm (59") Body mass index is 41.2 kg/m. Physical Exam Areas Examined (all normal unless noted below): Head/Face Neck Chest/breasts/axillae Back Abdomen R upper ext L upper ext Declined FBSE Pertinent findings include: Thick linear scar noted in R axilla Brown velvety plaques in bilateral axilla > neck Erythematous annular patches with peripheral scale around both axilla, upper marla k > chest and abdomen Multiple brown and valencia evenly pigmented macules are distributed over the head, n max, trunk, arms. All have symmetric similar dermascopic findings with primaril y pebbled and reticular patterns. Assessment and Plan: 1. Infected cyst/abscess > HS, R axilla - no e/o recurrence - Reviewed diagnosis and treatment options - Since patient had isolated lesion surgically excised, reviewed that this is li zoie curative treatment - If patient develops any new lesions, will treat accordingly 2. Tinea corporis - Positive RAIGNI scraping for hyphae done in clinic - Discussed that most effective treatment would be terbinafine, but patient is o n metoprolol which interacts with terbinafine (would increase concentration of m etoprolol) - Discussed options of trying topical therapy vs taking terbinafine with extreme ly close monitoring of heart rate and blood pressure while lowering dose of meto prolol vs discussing with grease maker head if they can decrease her metoprolol dose - Patient would like to try the terbinafine She just increased the dose of metroprolol XL from 50 to 100 mg PO daily for t ighter control of BP. - Reviewed that taking the terbinafine with metoprolol can cause low blood press ure, slowed heart rate, worsening fatigue; patient counseled that she needs to c losely monitor her blood pressure and heart rate while on this medication; rossyirais nt states that she understand risks and would like to proceed with lamisil - Start Rx terbinafine 250 mg daily for 2 weeks. Counseled that she can stop if cleared after a week Decrease metroprolol XL from 100 mg to 50 mg daily while on lamisil - Also given Rx ketoconazole 2% cream to use on small areas w/ recurrence - discussed dx, etiology, potential contagious nature and recurrence. 3. Multiple melanocytic nevi: -will cont to monitor. RTC in a few years or sooner prn documented in this encounter Miscellaneous Notes * Addendum Note - Jorge Boswell MD - 10/09/2018 11:30 AM CDT Addended by: JORGE BOSWELL on: 10/09/2018 12:45 PM Modules accepted: Level of Service documented in this encounter Plan of Treatment Not on filedocumented as of this encounter Visit Diagnoses Diagnosis Tinea corporis - Primary Dermatophytosis of the body Hidradenitis suppurativa Hidradenitis Inflamed epidermoid cyst of skin Sebaceous cyst Multiple benign nevi Benign neoplasm of skin, site unspecified documented in this encounter
--- OUTSIDE RECORDS SUMMARY | 2018-12-17 02:06 | XMS REPORT | Clinical Summary ---
Author Author [facility] Organization [facility] Address Unknown Phone Unavailable Care Team Providers Care Machine Package Sealer Name Role Phone Gloria Scott NP PCP Unavailable Source Comments Some departments are not documenting in the electronic medical record. If you d o not see the information that you expected, contact Release of Information in [facility] [place] Information Management department at [phone] for further assistan ce in locating additional records.[facility] Allergies Comments Active Allergy Reactions Severity Noted Date Loratadine COUGH Low 10/09/2018 Metformin DIARRHEA Low 10/09/2018 Penicillins HIVES, NAUSEA Medium 10/09/2018 ONLY Tetracycline ANAPHYLAXIS High 10/09/2018 Ondansetron HEADACHE Low 10/09/2018 Cetirizine COUGH Low 10/09/2018 Medications End Date Status Medication Sig Dispensed Refills Start Date Active ALPRAZolam (XANAX) 0.25 TK 1 T PO D 3 mg tablet PRN 9 Active promethazine (PHENERGAN) TK 1 T PO Q 6 0 25 mg tablet TO 8 H PRN [address] 0 (PROTONIX) 40 mg tablet 9 Active metoprolol XL (TOPROL XL) TK 1 T PO D 5 100 mg extended release 9 tablet Active ibuprofen (MOTRIN) 800 mg 0 tablet 9 Active HYDROcodone/acetaminophen 0 (NORCO) 7.5/325 mg tablet 9 Active ketoconazole (NIZORAL) 2 Apply 60 g 3 % topical topically to 9 creamIndications: Tinea affected area corporis twice daily. Active Problems Not on file Encounters Care Team Description Date Type Specialty Anastasia Saeed MD Tinea corporis (Primary Dx); Hidradenitis suppurativa; Inflamed epidermoid cyst of skin; Multiple benign nevi 10/09/2018 Office Visit Dermatology from Last 3 Months Family History Relation Name Status Comments Father Alive Mother Alive Social History Date Tobacco Use Types Packs/Day Years Used Former Smoker Smokeless Tobacco: Never Used Drinks/Week oz/Week Comments Alcohol Use Yes Sex Assigned at Date Recorded Not on file Industry Job Start Date Occupation Not on file Not on file Not on file Travel End Travel History Travel Start No recent travel history available. Last Filed Vital Signs Reading Time Taken Comments Vital Sign - - Blood Pressure - - Pulse - - Temperature - - Respiratory Rate - - Oxygen Saturation - - Inhaled Oxygen Concentration 92.5 kg (204 lb) 10/09/2018 11:34 AM CDT Weight 149.9 cm (4' 11") 10/09/2018 11:34 AM CDT Height 41.2 10/09/2018 11:34 AM CDT Body Mass Index Plan of Treatment Health Maintenance Due Date Last Done Comments PHYSICAL (COMPREHENSIVE) 11/01/1979 EXAM HIV SCREENING 11/01/1987 DTAP/TDAP VACCINES ( - 1990 Tdap) CERVICAL CANCER SCREENING 2002 BREAST CANCER SCREENING 2012 INFLUENZA VACCINE 03/18/2019 Results Not on filefrom Last 3 Months Insurance Type Payer Benefit Subscriber ID Effective Phone Address Plan / Dates Group Indemnity [facility] xxxxxxxxx 2017-P CHOICE/CHO resent ICE PLUS Advance Directives 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
--- OUTSIDE RECORDS SUMMARY | 2018-12-17 02:12 | XMS REPORT | CCD ---
Author [facility] Address [address] [place] [address] Phone Care Team Providers Care Program Officer Name Role Phone PP Unavailable CCM Unavailable Summary Purpose Interface Exchange Insurance Providers Payer name Policy type / Coverage type Covered republican ID Effective Begin Date Effective End Date [facility] Commercial Insurance [id number] Unknown Unknown Family history Father Diagnosis Age At Onset Hypertension Unknown Arthritis Unknown Mother Diagnosis Age At Onset Arthritis Unknown Hyperlipidemia Unknown Daughter Diagnosis Age At Onset Asthma Unknown Social History Social History Element Codes Description Effective Dates Marital status Unknown Darin 08/03/2015 Number of children Unknown 1 08/03/[address]: 5880387 Quit less than 5 years ago 08/03/2015 [...] Codes Condition Status Onset Date Resolved Date Dysuria ICD-9: 788.1 ICD-10: R30.0 Active 12/16/2018 Unknown Acute laryngopharyngitis ICD-9: 465.0 ICD-10: J06.0 Active 06/15/2016 Unknown Other allergic rhinitis ICD-9: 477.8 ICD-10: J30.89 Active 06/15/2016 Unknown Simple chronic bronchitis ICD-9: 491.0 ICD-10: J41.0 Active 11/18/2018 Unknown Essential (primary) hypertension ICD-9: 401.1 ICD-10: I10 Active 08/06/2018 Unknown Other fatigue ICD-9: 780.79 ICD-10: R53.83 Active 11/01/2018 Unknown Type 2 diabetes mellitus with hyperglycemia ICD-9: 250.02 ICD-10: E11.65 Active 06/12/2016 Unknown Hidradenitis suppurativa ICD-9: 705.83 ICD-10: L73.2 Active 07/22/2018 Unknown Encounter for other specified surgical aftercare ICD-9: V58.49 ICD-10: Z48.89 Active 07/18/2018 Unknown Cellulitis of right axilla ICD-9: 682.3 ICD-10: L03.111 Active 06/05/2018 Unknown Diarrhea, unspecified ICD- 9: 787.91 ICD-10: R19.7 Active 06/28/2018 Unknown Cough ICD-9: 786.2 ICD-10: R05 Active 03/07/2018 Unknown Gastro-esophageal reflux disease without esophagitis ICD-9: 530.81 ICD-10: K21.9 Active 03/26/2018 Unknown Diabetes Unknown Active 03/14/2018 Unknown Encounter [...] ICD-9: 466.0 ICD-10: J20.8 Active 03/07/2016 Unknown Candidiasis of vulva and vagina ICD-9: 112.1 ICD-10: B37.3 Active 09/05/2016 Unknown Rash and other nonspecific skin eruption ICD-9: 782.1 ICD-10: R21 Active 06/07/2017 Unknown Low back pain ICD-9: 724.2 ICD-10: M54.5 Active 04/24/2017 Unknown Sacrococcygeal disorders, not elsewhere classified ICD-9: 724.79 ICD-10: M53.3 Active 11/23/2017 Unknown Polycystic ovarian syndrome ICD-9: 256.4 ICD-10: E28.2 Active 08/31/2015 Unknown Dyspnea, unspecified ICD- 9: 786.09 ICD-10: R06.00 Active 06/07/2017 Unknown Localized edema ICD-9: 782.3 ICD-10: R60.0 Active 06/07/2017 Unknown Pain in left foot ICD-9: 729.5 ICD-10: M79.672 Active 04/24/2017 Unknown Sacroiliitis, not elsewhere classified ICD-9: 720.2 ICD-10: M46.1 Active 04/24/2017 Unknown Acute suppurative otitis media without spontaneous rupture of ear drum, right ear ICD-9: 382.00 ICD-10: H66.001 Active 01/09/2017 Unknown Umbilical hernia without obstruction or gangrene ICD-9: 553.1 ICD-10: K42.9 Active 09/12/2016 Unknown Epigastric pain ICD-9: 789.06 ICD-10: R10.13 Active 09/05/2016 Unknown Encounter for immunization ICD-9: V05.9 ICD-10: Z23 Active 04/12/2016 Unknown Pain in right shoulder ICD-9: 719.41 ICD-10: M25.511 Active 04/09/2016 Unknown Other muscle spasm ICD- 9: 728.85 ICD-10: M62.838 Active 04/05/2016 Unknown Acne vulgaris ICD-9: 706.1 ICD-10: L70.0 Active 03/07/2016 Unknown Morbid (severe) obesity due to excess calories ICD-9: 278.01 ICD-10: E66.01 Active 03/07/2016 Unknown Other acute sinusitis ICD- 9: 461.8 ICD-10: J01.80 Active 03/07/2016 Unknown Localized enlarged lymph nodes ICD-9: 785.6 ICD-10: R59.0 Active 02/27/2016 Unknown Encounter for gynecological examination (general) (routine) without abnormal findings ICD-9: V72.31 ICD-10: Z01.419 [...] R73.09 Active 08/31/2015 Unknown Other skin changes ICD- 9: 709.8 ICD-10: R23.8 Active 08/31/2015 Unknown Hypertension Unknown Active 08/03/2015 Unknown Snoring ICD-9: 786.09 ICD-10: R06.83 Active 08/02/2015 Unknown Problems Condition Codes Effective Dates Condition Status Dysuria ICD-9: 788.1 ICD-10: R30.0 12/16/2018 Active Acute laryngopharyngitis ICD-9: 465.0 ICD-10: J06.0 06/15/2016 Active Other allergic rhinitis ICD-9: 477.8 ICD-10: J30.89 06/15/2016 Active Simple chronic bronchitis ICD-9: 491.0 ICD-10: J41.0 11/18/2018 Active Essential (primary) hypertension ICD-9: 401.1 ICD-10: I10 08/06/2018 Active Other fatigue ICD-9: 780.79 ICD-10: R53.83 11/01/2018 Active Type 2 diabetes mellitus with hyperglycemia ICD-9: 250.02 ICD-10: E11.65 06/12/2016 Active Hidradenitis suppurativa ICD-9: 705.83 ICD-10: L73.2 07/22/2018 Active Encounter for other specified surgical aftercare ICD-9: V58.49 ICD-10: Z48.89 07/18/2018 Active Cellulitis of right axilla ICD-9: 682.3 ICD-10: L03.111 06/05/2018 Active Diarrhea, unspecified ICD- 9: 787.91 ICD-10: R19.7 06/28/2018 Active Cough ICD-9: 786.2 ICD-10: R05 03/07/2018 Active Gastro-esophageal reflux disease without esophagitis ICD-9: 530.81 ICD-10: K21.9 03/26/2018 Active Diabetes Unknown 03/14/2018 Active Encounter for [...] organisms ICD-9: 466.0 ICD-10: J20.8 03/07/2016 Active Candidiasis of vulva and vagina ICD-9: 112.1 ICD-10: B37.3 09/05/2016 Active Rash and other nonspecific skin eruption ICD-9: 782.1 ICD-10: R21 06/07/2017 Active Low back pain ICD-9: 724.2 ICD-10: M54.5 04/24/2017 Active Sacrococcygeal disorders, not elsewhere classified ICD-9: 724.79 ICD-10: M53.3 11/23/2017 Active Polycystic ovarian syndrome ICD-9: 256.4 ICD-10: E28.2 08/31/2015 Active Dyspnea, unspecified ICD- 9: 786.09 ICD-10: R06.00 06/07/2017 Active Localized edema ICD-9: 782.3 ICD-10: R60.0 06/07/2017 Active Pain in left foot ICD-9: 729.5 ICD-10: M79.672 04/24/2017 Active Sacroiliitis, not elsewhere classified ICD-9: 720.2 ICD-10: M46.1 04/24/2017 Active Acute suppurative otitis media without spontaneous rupture of ear drum, right ear ICD-9: 382.00 ICD-10: H66.001 01/09/2017 Active Umbilical hernia without obstruction or gangrene ICD-9: 553.1 ICD-10: K42.9 09/12/2016 Active Epigastric pain ICD-9: 789.06 ICD-10: R10.13 09/05/2016 Active Encounter for immunization ICD-9: V05.9 ICD-10: Z23 04/12/2016 Active Pain in right shoulder ICD-9: 719.41 ICD-10: M25.511 04/09/2016 Active Other muscle spasm ICD- 9: 728.85 ICD-10: M62.838 04/05/2016 Active Acne vulgaris ICD-9: 706.1 ICD-10: L70.0 03/07/2016 Active Morbid (severe) obesity due to excess calories ICD-9: 278.01 ICD-10: E66.01 03/07/2016 Active Other acute sinusitis ICD- 9: 461.8 ICD-10: J01.80 03/07/2016 Active Localized enlarged lymph nodes ICD-9: 785.6 ICD-10: R59.0 02/27/2016 Active Encounter for gynecological examination (general) (routine) without abnormal findings ICD-9: V72.31 ICD-10: Z01.419 12/22/2015 Active Excessive and frequent menstruation with irregular cycle ICD-9: 626.2 ICD-10: N92.1 12/22/2015 Active Other insomnia ICD-9: 327.09 ICD-10: G47.09 10/12/2015 Active Acute recurrent maxillary sinusitis ICD-9: 461.0 ICD-10: J01.01 10/04/2015 Active Allergic rhinitis due to pollen ICD-9: 477.0 ICD-10: J30.1 10/04/2015 Active Other abnormal glucose ICD-9: 790.29 ICD-10: R73.09 08/31/2015 Active Other skin changes ICD- 9: 709.8 ICD-10: R23.8 08/31/2015 Active Hypertension Unknown 08/03/2015 Active Snoring ICD-9: 786.09 ICD-10: R06.83 08/02/2015 Active Medications Medication Codes Instructions Start Date Stop Date Status Fill Instructions Levaquin 500 mg tablet RxNorm: 573467 1 Tablet(s) PO daily 12/16/2018 12/22/2018 Active Mucinex 600 mg tablet, extended release RxNorm: 888252 1 Tablet(s) PO BID 11/18/2018 12/17/2018 Active ibuprofen 800 mg tablet RxNorm: 187767 1 Tablet(s) PO TID as needed for pain 11/18/2018 12/17/2018 Active albuterol sulfate 2.5 mg/3 mL (0.083 %) solution for nebulization RxNorm: 049749 3 Milliliter(s) INH Q4-6H as needed dyspnea 11/18/2018 No Stop Date Active Xopenex 1.25 mg/3 mL solution for nebulization RxNorm: 475002 Milliliter(s) USE ONE VIAL IN NEBULIZER THREE TIMES DAILY 11/18/2018 No Stop Date Active Zithromax Z-Rashid 250 mg tablet RxNorm: 850472 1 Tablet(s) PO UD 11/01/2018 No Stop Date Active promethazine 25 mg tablet RxNorm: 131679 Tablet(s) TABLET(S) TAKE ONE TABLET BY MOUTH EVERY 6 TO 8 HOURS NEEDED 11/01/2018 No Stop Date Active Kenalog 40 mg/mL suspension for injection RxNorm: 6647800 Milliliter(s) Inj 11/01/2018 11/01/2018 Inactive prednisone 20 mg tablet RxNorm: 549514 2 Tablet(s) PO daily 11/01/2018 11/05/2018 Inactive ibuprofen 800 mg tablet RxNorm: 114198 1 Tablet(s) PO TID as needed for pain 09/05/2018 09/14/2018 Inactive Phenergan with Codeine Syrup RxNorm: 5-10 ML PO QID as needed cough 08/08/2018 No Stop Date Active alprazolam 0.25 mg tablet RxNorm: 980793 1 Tablet(s) PO daily as needed anxiety 08/08/2018 No Stop Date Active metoprolol succinate ER 100 mg tablet,extended release 24 hr RxNorm: 411782 Tablet(s) TAKE ONE TABLET BY MOUTH ONCE DAILY 08/06/2018 No Stop Date Active ibuprofen 800 mg tablet RxNorm: 743895 1 Tablet(s) PO TID as needed for pain 08/06/2018 08/15/2018 Inactive Zithromax Z-Rashid 250 mg tablet RxNorm: 458436 1 Tablet(s) PO UD 08/06/2018 09/04/2018 Inactive metoprolol succinate ER 50 mg tablet,extended release 24 hr RxNorm: 381880 1 Tablet(s) PO daily 08/06/2018 09/04/2018 Inactive Lyrica 100 mg capsule RxNorm: 782099 1 Capsule(s) PO TID 07/25/2018 10/16/2018 Inactive Lyrica 100 mg capsule RxNorm: 912544 1 Capsule(s) PO TID 07/25/2018 07/24/2018 Inactive mupirocin 2 % topical ointment RxNorm: 359509 1 Application TOP daily 07/22/2018 07/28/2018 Inactive ibuprofen 800 mg tablet RxNorm: 264047 1 Tablet(s) PO TID as needed for pain 07/22/2018 07/31/2018 Inactive hydrocodone 7.5 mg-acetaminophen 325 mg tablet RxNorm: 548717 1 Tablet(s) PO Q4H as needed 07/18/2018 08/16/2018 Inactive promethazine 25 mg tablet RxNorm: 469850 TABLET(S) TAKE ONE TABLET BY MOUTH EVERY 6 TO 8 HOURS NEEDED 07/05/2018 2018 Inactive hyoscyamine 0.125 mg sublingual tablet RxNorm: 8407216 1 Tablet(s) SL TID as needed diarrhea 06/28/2018 07/07/2018 Inactive mupirocin 2 % topical ointment RxNorm: 101391 1 Application TOP BID 06/17/2018 06/26/2018 Inactive mupirocin 2 % topical ointment RxNorm: 771490 1 Application TOP BID 06/05/2018 No Stop Date Active Keflex 500 mg capsule RxNorm: 431417 1 Capsule(s) PO TID 06/05/2018 06/11/2018 Inactive ceftriaxone 500 mg solution for injection RxNorm: 4737472 Inj 06/05/2018 06/05/2018 Inactive Diflucan 150 mg tablet RxNorm: 317444 1 Tablet(s) PO daily 06/05/2018 07/02/2018 Inactive Protonix 40 mg tablet,delayed release RxNorm: 628776 1 Tablet(s) PO BID x 1 week then daily 03/26/2018 No Stop Date Active Phenergan with Codeine Syrup RxNorm: 5-10 ML PO QID as needed cough 03/19/2018 08/07/2018 Inactive promethazine 25 mg tablet RxNorm: 196407 Tablet(s) TAKE ONE TABLET BY MOUTH EVERY 6 TO 8 HOURS NEEDED 03/15/2018 07/04/2018 Inactive Singulair 10 mg tablet RxNorm: 562101 1 Tablet(s) PO daily 03/14/2018 04/12/2018 Inactive metoprolol succinate ER 100 mg tablet,extended release 24 hr RxNorm: 344717 1 Tablet(s) PO daily 03/07/2018 04/05/2018 Inactive Zithromax Z-Rashid 250 mg tablet RxNorm: 661883 1 Tablet(s) PO UD 03/07/2018 03/07/2018 Inactive prednisone 20 mg tablet RxNorm: 374869 2 Tablet(s) PO daily 03/07/2018 03/11/2018 Inactive Diflucan 150 mg tablet RxNorm: 740293 Tablet(s) TAKE ONE TABLET BY MOUTH ONCE DAILY FOR 7 DAYS THEN TAKE ONE TABLET BY MOUTH ONCE A WEEK 02/19/2018 06/04/2018 Inactive Levaquin 500 mg tablet RxNorm: 392030 1 Tablet(s) PO daily 02/19/2018 02/25/2018 Inactive prednisone 20 mg tablet RxNorm: 519974 2 Tablet(s) PO daily 02/19/2018 02/23/2018 Inactive albuterol sulfate 2.5 mg/3 mL (0.083 %) solution for nebulization RxNorm: 747556 3 Milliliter(s) INH Q4-6H as needed dyspnea 02/19/2018 11/17/2018 Inactive Kenalog 40 mg/mL suspension for injection RxNorm: 8227333 15. Milliliter(s) Inj 02/19/2018 02/19/2018 Inactive hydrocodone 7.5 mg-acetaminophen 325 mg tablet RxNorm: 744376 1 Tablet(s) PO Q4H as needed 02/05/2018 03/06/2018 Inactive clindamycin HCl 300 mg capsule RxNorm: 123789 1 Capsule(s) PO TID 01/09/2018 01/15/2018 Inactive promethazine 25 mg tablet RxNorm: 927283 Tablet(s) TAKE ONE TABLET BY MOUTH EVERY 6 TO 8 HOURS NEEDED 01/08/2018 03/14/2018 Inactive Diflucan 150 mg tablet RxNorm: 399150 Tablet(s) TAKE ONE TABLET BY MOUTH ONCE DAILY FOR 7 DAYS THEN TAKE ONE TABLET BY MOUTH ONCE A WEEK 01/08/2018 02/18/2018 Inactive Bactrim DS 800 mg-160 mg tablet RxNorm: 214781 1 Tablet(s) PO BID 01/08/2018 01/17/2018 Inactive prednisone 20 mg tablet RxNorm: 335488 2 Tablet(s) PO daily 11/23/2017 11/27/2017 Inactive Zithromax Z-Rashid 250 mg tablet RxNorm: 624917 1 Tablet(s) PO UD 09/05/2017 02/11/2018 Inactive Kenalog 40 mg/mL suspension for injection RxNorm: 6089877 Milliliter(s) Inj 09/05/2017 09/05/2017 Inactive prednisone 20 mg tablet RxNorm: 319419 2 Tablet(s) PO daily 09/05/2017 09/09/2017 Inactive ibuprofen 800 mg tablet RxNorm: 906562 1 Tablet(s) PO TID 07/27/2017 02/21/2018 Inactive alprazolam 0.5 mg tablet RxNorm: 510911 1 Tablet(s) PO Q8 as needed 06/20/2017 07/09/2017 Inactive metoprolol succinate ER 100 mg tablet,extended release 24 hr RxNorm: 607852 TAKE ONE TABLET BY MOUTH ONCE DAILY 06/20/2017 08/05/2018 Inactive Zithromax Z-Rashid 250 mg tablet RxNorm: 400218 1 Tablet(s) PO UD 06/15/2017 07/25/2017 Inactive Xopenex HFA 45 mcg/actuation aerosol inhaler RxNorm: 613391 INHALE ONE PUFF INTO LUNGS NEEDED 06/13/2017 07/14/2017 Inactive Flovent HFA 44 mcg/actuation aerosol inhaler RxNorm: 515188 2 Puff(s) INH BID 06/08/2017 No Stop Date Active Xopenex 1.25 mg/3 mL solution for nebulization RxNorm: 827282 Milliliter(s) USE ONE VIAL IN NEBULIZER THREE TIMES DAILY 06/08/2017 11/17/2018 Inactive potassium chloride ER 10 mEq tablet,extended release RxNorm: 473231 1 Tablet(s) PO daily 06/08/2017 06/10/2017 Inactive Lasix 20 mg tablet RxNorm: 794647 1 Tablet(s) PO daily 06/08/2017 06/10/2017 Inactive Xopenex HFA 45 mcg/actuation aerosol inhaler RxNorm: 435193 INHALE ONE PUFF INTO LUNGS NEEDED 06/08/2017 06/12/2017 Inactive triamcinolone acetonide 0.025 % topical cream RxNorm: 8240246 1 Application TOP BID 06/07/2017 No Stop Date Active ibuprofen 800 mg tablet RxNorm: 842452 1 Tablet(s) PO TID 06/07/2017 07/06/2017 Inactive cyclobenzaprine 5 mg tablet RxNorm: 002116 1/2 Tablet(s) PO TID as needed muscle spasms 05/28/2017 06/01/2017 Inactive Diflucan 150 mg tablet RxNorm: 090264 TAKE ONE TABLET BY MOUTH ONCE DAILY FOR 7 DAYS THEN TAKE ONE TABLET BY MOUTH ONCE A WEEK 05/28/2017 01/07/2018 Inactive bumetanide 1 mg tablet RxNorm: 833779 TAKE ONE TABLET BY MOUTH TWICE DAILY 05/25/2017 No Stop Date Active meloxicam 7.5 mg tablet RxNorm: 115874 1 Tablet(s) PO daily as needed 05/25/2017 07/23/2017 Inactive Xopenex 1.25 mg/3 mL solution for nebulization RxNorm: 829622 USE ONE VIAL IN NEBULIZER THREE TIMES DAILY 05/25/2017 06/07/2017 Inactive Protonix 40 mg tablet,delayed release RxNorm: 718106 1 Tablet(s) PO daily 05/08/2017 11/03/2017 Inactive Protonix 40 mg tablet,delayed release RxNorm: 599682 1 Tablet(s) PO daily 05/04/2017 05/03/2017 Inactive Protonix 40 mg tablet,delayed release RxNorm: 486535 1 Tablet(s) PO daily 05/04/2017 05/07/2017 Inactive meloxicam 7.5 mg tablet RxNorm: 896706 1 Tablet(s) PO daily as needed 04/25/2017 04/24/2017 Inactive meloxicam 7.5 mg tablet RxNorm: 680341 1 Tablet(s) PO daily as needed 04/25/2017 05/04/2017 Inactive promethazine 25 mg tablet RxNorm: 238239 TAKE ONE TABLET BY MOUTH EVERY 6 TO 8 HOURS NEEDED 04/25/2017 01/07/2018 Inactive Kenalog 40 mg/mL suspension for injection RxNorm: 6172929 1 Milliliter(s) Inj 04/24/2017 04/24/2017 Inactive cyclobenzaprine 5 mg tablet RxNorm: 032138 1/2 Tablet(s) PO TID as needed muscle spasms 04/24/2017 04/28/2017 Inactive Xopenex HFA 45 mcg/actuation aerosol inhaler RxNorm: 634542 INHALE ONE PUFF INTO LUNGS NEEDED 03/30/2017 04/14/2017 Inactive Humalog KwikPen 200 unit/mL (3 mL) subcutaneous RxNorm: 8780197 INJECT 35 UNITS SUBCUTANEOUSLY BEFORE MEAL(S) 03/30/2017 06/05/2017 Inactive promethazine 25 mg tablet RxNorm: 566448 Tablet(s) TAKE ONE TABLET BY MOUTH EVERY 6 TO 8 HOURS NEEDED 03/12/2017 03/26/2017 Inactive cyclobenzaprine 10 mg tablet RxNorm: 033399 TAKE ONE TABLET BY MOUTH ONCE DAILY NEEDED 03/06/2017 03/15/2017 Inactive lidocaine 5 % topical patch RxNorm: 4047255 USE ONE PATCH TOPICALLY DAILY. 12 HOURS ON AND THEN 12 HOURS OFF. 03/06/2017 03/15/2017 Inactive Humalog KwikPen 200 unit/mL (3 mL) subcutaneous RxNorm: 4110085 INJECT 35 UNITS SUBCUTANEOUSLY BEFORE MEAL(S) 02/20/2017 03/25/2017 Inactive promethazine 25 mg tablet RxNorm: 430952 Tablet(s) TAKE ONE TABLET BY MOUTH EVERY 6 TO 8 HOURS NEEDED 02/20/2017 03/06/2017 Inactive Xopenex HFA 45 mcg/actuation aerosol inhaler RxNorm: 872656 INHALE ONE PUFF INTO LUNGS NEEDED 02/20/2017 03/07/2017 Inactive bumetanide 1 mg tablet RxNorm: 929708 TAKE ONE TABLET BY MOUTH TWICE DAILY 02/15/2017 05/15/2017 Inactive bumetanide 1 mg tablet RxNorm: 028209 TAKE ONE TABLET BY MOUTH TWICE DAILY 01/15/2017 02/13/2017 Inactive metoprolol succinate ER 100 mg tablet,extended release 24 hr RxNorm: 953142 TAKE ONE TABLET BY MOUTH ONCE DAILY 01/11/2017 06/19/2017 Inactive Zithromax Z-Rashid 250 mg tablet RxNorm: 508044 1 Tablet(s) PO UD 01/09/2017 03/13/2017 Inactive meclizine 25 mg tablet RxNorm: 320769 1 Tablet(s) PO TID as needed 01/09/2017 01/18/2017 Inactive Kenalog 40 mg/mL suspension for injection RxNorm: 8997886 Milliliter(s) Inj 01/09/2017 01/09/2017 Inactive promethazine 25 mg tablet RxNorm: 188584 Tablet(s) TAKE ONE TABLET BY MOUTH EVERY 6 TO 8 HOURS NEEDED 12/29/2016 01/12/2017 Inactive Voltaren 1 % topical gel RxNorm: 870400 APPLY TOPICALLY TO AFFECTED AREA TWICE DAILY 12/25/2016 01/13/2017 Inactive cyclobenzaprine 10 mg tablet RxNorm: 027194 TAKE ONE TABLET BY MOUTH NEEDED 12/22/2016 12/31/2016 Inactive lidocaine 5 % topical patch RxNorm: 8241118 USE ONE PATCH TOPICALLY DAILY. 12 HOURS ON AND THEN 12 HOURS OFF. 12/22/2016 12/31/2016 Inactive hydrocodone 7.5 mg-acetaminophen 325 mg tablet RxNorm: 830686 1 Tablet(s) PO Q4H as needed 12/22/2016 01/20/2017 Inactive bumetanide 1 mg tablet RxNorm: 669578 TAKE ONE TABLET BY MOUTH TWICE DAILY 12/17/2016 01/14/2017 Inactive promethazine 25 mg tablet RxNorm: 719328 Tablet(s) TAKE ONE TABLET BY MOUTH EVERY 6 TO 8 HOURS NEEDED 11/16/2016 12/15/2016 Inactive spironolactone 50 mg tablet RxNorm: 522012 TAKE ONE TABLET BY MOUTH TWICE DAILY 11/15/2016 05/13/2017 Inactive Basaglar KwikPen 100 unit/mL (3 mL) subcutaneous RxNorm: 8631463 Unit(s) INJECT 35 UNITS IN THE MORNING AND 50 UNITS IN THE EVENING SUBCUTANEOUSLY 11/15/2016 03/14/2017 Inactive cyclobenzaprine 10 mg tablet RxNorm: 509580 TAKE ONE TABLET BY MOUTH NEEDED 11/15/2016 12/04/2016 Inactive lidocaine 5 % topical patch RxNorm: 6420184 1 Patch TOP daily . 12 HOURS ON, 12 HOURS OFF 11/15/2016 12/04/2016 Inactive lidocaine 4 % topical patch RxNorm: 1428362 1 Patch TOP on for 12 hours and off for 12 hours 11/14/2016 11/14/2016 Inactive promethazine 25 mg tablet RxNorm: 311934 TAKE ONE TABLET BY MOUTH EVERY 6 TO 8 HOURS NEEDED 11/14/2016 11/15/2016 Inactive Basaglar KwikPen 100 unit/mL (3 mL) subcutaneous RxNorm: 9845138 INJECT 35 UNITS IN THE MORNING AND 50 UNITS IN THE EVENING SUBCUTANEOUSLY 11/14/2016 11/14/2016 Inactive cyclobenzaprine 10 mg tablet RxNorm: 941186 TAKE ONE TABLET BY MOUTH NEEDED 11/14/2016 11/14/2016 Inactive spironolactone 50 mg tablet RxNorm: 858045 TAKE ONE TABLET BY MOUTH TWICE DAILY 11/14/2016 11/14/2016 Inactive Diflucan 150 mg tablet RxNorm: 859881 1 Tablet(s) PO as needed prophylactic after sexual intercourse 10/30/2016 No Stop Date Active hydrocodone 7.5 mg-acetaminophen 325 mg tablet RxNorm: 627328 1 Tablet(s) PO Q4H as needed 10/30/2016 11/28/2016 Inactive clotrimazole 100 mg vaginal tablet RxNorm: 704366 1 Tablet(s) VAG QW 10/30/2016 11/28/2016 Inactive Humalog KwikPen 200 unit/mL (3 mL) subcutaneous RxNorm: 7101311 35 Unit(s) SQ AC 10/30/2016 02/19/2017 Inactive QS 30 day supply Bydureon 2 mg/0.65 mL subcutaneous pen injector RxNorm: 3678029 2 Milligram(s) SQ QW 10/30/2016 11/28/2016 Inactive Basaglar KwikPen 100 unit/mL (3 mL) subcutaneous RxNorm: 4956081 Unit(s) SQ 35 units in the morning and 50 units in the evening 10/30/2016 11/13/2016 Inactive QS 30 day supply cyclobenzaprine 10 mg tablet RxNorm: 678411 TAKE ONE TABLET BY MOUTH NEEDED 10/27/2016 11/05/2016 Inactive Diflucan 150 mg tablet RxNorm: 661662 1 Tablet(s) PO daily x 7 days then once a week 10/27/2016 10/29/2016 Inactive promethazine 25 mg tablet RxNorm: 776698 TAKE ONE TABLET BY MOUTH EVERY 6 TO 8 HOURS NEEDED 10/27/2016 11/10/2016 Inactive Diflucan 150 mg tablet RxNorm: 660048 1 Tablet(s) PO daily x 7 days then once a week 10/09/2016 10/15/2016 Inactive Diflucan 150 mg tablet RxNorm: 402684 1 Tablet(s) PO daily 09/20/2016 09/26/2016 Inactive Cipro 500 mg tablet RxNorm: 440664 1 Tablet(s) PO BID 09/12/2016 09/21/2016 Inactive Flagyl 500 mg tablet RxNorm: 260607 1 Tablet(s) PO TID 09/12/2016 09/21/2016 Inactive Diflucan 150 mg tablet RxNorm: 067031 1 Tablet(s) PO daily 09/06/2016 09/12/2016 Inactive hydrocodone 7.5 mg-acetaminophen 325 mg tablet RxNorm: 368638 1 Tablet(s) PO Q4H as needed 07/12/2016 08/10/2016 Inactive Xopenex 1.25 mg/3 mL solution for nebulization RxNorm: 426069 3 Milliliter(s) INH TID 06/16/2016 05/24/2017 Inactive cefdinir 300 mg capsule RxNorm: 916250 1 Capsule(s) PO BID 06/16/2016 06/25/2016 Inactive Mobic 7.5 mg tablet RxNorm: 162604 1 Tablet(s) PO daily 06/16/2016 06/25/2016 Inactive Levaquin 500 mg tablet RxNorm: 151348 1 Tablet(s) PO daily 06/16/2016 06/22/2016 Inactive cyclobenzaprine 10 mg tablet RxNorm: 054813 1 Tablet(s) PO PRN as needed 06/14/2016 06/23/2016 Inactive promethazine 25 mg tablet RxNorm: 202474 TAKE ONE TABLET BY MOUTH EVERY 6 TO 8 HOURS NEEDED 06/14/2016 06/28/2016 Inactive Xopenex HFA 45 mcg/actuation aerosol inhaler RxNorm: 495658 1 Puff(s) INH PRN 06/14/2016 07/15/2016 Inactive pen needle, diabetic 32 gauge x 5/16" RxNorm: 1 use Miscellaneous AC & HS 06/13/2016 No Stop Date Active QS 30 day supply Humalog KwikPen 200 unit/mL (3 mL) subcutaneous RxNorm: 4332339 10 Unit(s) SQ AC 06/13/2016 10/29/2016 Inactive QS 30 day supply Basaglar KwikPen 100 unit/mL (3 mL) subcutaneous RxNorm: 3796399 22 units in the morning and 35 in the evening. Unit(s) SQ 06/13/2016 10/29/2016 Inactive QS 30 day supply Tivorbex 20 mg capsule RxNorm: 4240608 1 Capsule(s) PO TID as needed 06/13/2016 06/13/2016 Inactive metoprolol succinate ER 100 mg tablet,extended release 24 hr RxNorm: 984250 TAKE ONE TABLET BY MOUTH ONCE DAILY 06/13/2016 10/10/2016 Inactive hydrocodone 7.5 mg-acetaminophen 325 mg tablet RxNorm: 861248 1 Tablet(s) PO Q4H as needed 06/13/2016 07/11/2016 Inactive Voltaren 1 % topical gel RxNorm: 940726 APPLY TOPICALLY TO AFFECTED AREA TWICE DAILY 05/30/2016 07/08/2016 Inactive cyclobenzaprine 10 mg tablet RxNorm: 410284 1 Tablet(s) PO PRN as needed 05/19/2016 05/28/2016 Inactive alprazolam 0.5 mg tablet RxNorm: 195700 1 Tablet(s) PO Q8 as needed 05/19/2016 07/23/2018 Inactive bumetanide 1 mg tablet RxNorm: 755227 TAKE ONE TABLET BY MOUTH TWICE DAILY 05/19/2016 06/17/2016 Inactive Sprintec (28) 0.25 mg-35 mcg tablet RxNorm: 485988 1 Tablet(s) PO UD 05/08/2016 No Stop Date Active Lantus Solostar 100 unit/mL (3 mL) subcutaneous insulin pen RxNorm: 901423 Unit(s) SQ UD 15units qam 30 units qhs 05/08/2016 No Stop Date Active Humalog KwikPen 200 unit/mL (3 mL) subcutaneous RxNorm: 0779115 10 Unit(s) SQ AC 05/08/2016 06/12/2016 Inactive bumetanide 1 mg tablet RxNorm: 973993 TAKE ONE TABLET BY MOUTH TWICE DAILY 04/28/2016 05/18/2016 Inactive Voltaren 1 % topical gel RxNorm: 417894 1 Application TOP BID 04/28/2016 05/07/2016 Inactive cyclobenzaprine 10 mg tablet RxNorm: 366904 1 Tablet(s) PO PRN as needed 04/28/2016 05/07/2016 Inactive hydrocodone 7.5 mg-acetaminophen 325 mg tablet RxNorm: 451669 1 Tablet(s) PO Q4H as needed 04/18/2016 05/16/2016 Inactive Lantus Solostar 100 unit/mL (3 mL) subcutaneous insulin pen RxNorm: 016641 Unit(s) SQ UD 10 units QHS x5 days, if sugars are over 200 increase to 15 units x 5 days, if sugars over 200 increase to 20 units. 04/14/2016 05/07/2016 Inactive lidocaine 4 % topical patch RxNorm: 8633290 1 Patch TOP on for 12 hours and off for 12 hours 04/13/2016 11/13/2016 Inactive Voltaren 1 % topical gel RxNorm: 990556 1 Application TOP BID 04/10/2016 04/27/2016 Inactive metformin ER 500 mg 24 hr tablet,extended release RxNorm: 483391 1 Tablet(s) PO daily 04/06/2016 05/05/2016 Inactive Kenalog 40 mg/mL suspension for injection RxNorm: 5144481 1 Milliliter(s) Inj 04/06/2016 04/06/2016 Inactive cyclobenzaprine 10 mg tablet RxNorm: 384146 1 Tablet(s) PO PRN as needed 04/06/2016 04/27/2016 Inactive WelChol 3.75 gram oral powder packet RxNorm: 936341 1 packet PO daily 04/06/2016 07/04/2016 Inactive alprazolam 0.5 mg tablet RxNorm: 116512 1 Tablet(s) PO Q8 as needed 03/30/2016 06/19/2017 Inactive Levaquin 500 mg tablet RxNorm: 850995 1 Tablet(s) PO daily 03/30/2016 04/05/2016 Inactive metoprolol succinate ER 100 mg tablet,extended release 24 hr RxNorm: 897683 TAKE ONE TABLET BY MOUTH ONCE DAILY 03/16/2016 06/12/2016 Inactive Levaquin 500 mg tablet RxNorm: 312365 1 Tablet(s) PO daily 03/08/2016 03/14/2016 Inactive prednisone 20 mg tablet RxNorm: 587804 2 Tablet(s) PO daily 03/08/2016 03/12/2016 Inactive Xopenex HFA 45 mcg/actuation aerosol inhaler RxNorm: 453392 1 Puff(s) INH PRN 02/28/2016 06/13/2016 Inactive Phenergan with Codeine Syrup RxNorm: 5-10 ML PO QID as needed cough 02/28/2016 03/18/2018 Inactive Kenalog 40 mg/mL suspension for injection RxNorm: 1502401 1 Milliliter(s) Inj 02/28/2016 02/28/2016 Inactive Zithromax Z-Rashid 250 mg tablet RxNorm: 892443 1 Tablet(s) PO UD 02/28/2016 03/27/2016 Inactive alprazolam 0.5 mg tablet RxNorm: 568561 1 Tablet(s) PO Q8 as needed 02/24/2016 06/19/2017 Inactive glipizide 5 mg tablet RxNorm: 161711 1 Tablet(s) PO daily 01/18/2016 05/16/2016 Inactive Actos 15 mg tablet RxNorm: 925087 1 Tablet(s) PO daily 01/18/2016 02/16/2016 Inactive gabapentin 100 mg capsule RxNorm: 541785 1 Capsule(s) PO QHS 01/13/2016 03/12/2016 Inactive gabapentin 100 mg capsule RxNorm: 080600 1 Capsule(s) PO QHS 01/13/2016 01/12/2016 Inactive Bydureon 2 mg/0.65 mL subcutaneous pen injector RxNorm: 3051753 1 Milliliter(s) SQ QW 01/12/2016 01/11/2016 Inactive Bydureon 2 mg/0.65 mL subcutaneous pen injector RxNorm: 1855997 2/0.65ml Milligram(s) SQ QW 01/12/2016 05/16/2016 Inactive Bydureon 2 mg/0.65 mL subcutaneous pen injector RxNorm: 7660371 1 Milliliter(s) SQ QW 01/12/2016 01/11/2016 Inactive bumetanide 1 mg tablet RxNorm: 055242 TAKE ONE TABLET BY MOUTH TWICE DAILY 01/10/2016 04/08/2016 Inactive promethazine 25 mg tablet RxNorm: 806156 Tablet(s) Tablet(s) 1 Tablet(s) PO Q6-8H as needed 12/16/2015 04/13/2016 Inactive promethazine 25 mg tablet RxNorm: 675922 Tablet(s) 1 Tablet(s) PO Q6-8H as needed 12/10/2015 12/15/2015 Inactive Trulicity 0.75 mg/0.5 mL subcutaneous pen injector RxNorm: 0161378 INJECT ONE-HALF ML SUBCUTANEOUSLY ONCE A WEEK 12/10/2015 01/11/2016 Inactive glipizide 5 mg tablet RxNorm: 754302 1 Tablet(s) PO daily 12/10/2015 01/17/2016 Inactive bumetanide 1 mg tablet RxNorm: 370817 TAKE ONE TABLET BY MOUTH TWICE DAILY 12/10/2015 01/08/2016 Inactive promethazine 25 mg tablet RxNorm: 929781 Tablet(s) 1 Tablet(s) PO Q6-8H as needed 11/18/2015 12/09/2015 Inactive promethazine 25 mg tablet RxNorm: 607873 1 Tablet(s) PO Q6-8H as needed 11/16/2015 11/17/2015 Inactive glipizide 5 mg tablet RxNorm: 847708 1/2 Tablet(s) PO daily 11/16/2015 12/15/2015 Inactive promethazine 25 mg tablet RxNorm: 067159 Tablet(s) 1 Tablet(s) PO Q6-8H as needed 11/11/2015 12/10/2015 Inactive Trulicity 0.75 mg/0.5 mL subcutaneous pen injector RxNorm: 9952762 .5 Milliliter(s) SQ QW 11/11/2015 01/11/2016 Inactive metoprolol tartrate 50 mg tablet RxNorm: 270718 1 Tablet(s) PO BID 11/11/2015 07/29/2018 Inactive promethazine 25 mg tablet RxNorm: 045242 1 Tablet(s) PO Q6-8H as needed 10/28/2015 11/10/2015 Inactive nystatin 100,000 unit/gram topical cream RxNorm: 847889 1 Gram(s) TOP BID 10/27/2015 No Stop Date Active alprazolam 0.5 mg tablet RxNorm: 935488 1 Tablet(s) PO Q8 as needed 10/27/2015 03/29/2016 Inactive hydrocodone 7.5 mg-acetaminophen 325 mg tablet RxNorm: 613822 1 Tablet(s) PO Q4H as needed 10/27/2015 11/25/2015 Inactive Trulicity 0.75 mg/0.5 mL subcutaneous pen injector RxNorm: 2047914 .5 Milliliter(s) SQ QW 10/27/2015 11/10/2015 Inactive glipizide 5 mg tablet RxNorm: 561725 1 Tablet(s) PO daily 10/27/2015 11/25/2015 Inactive hydrocodone 7.5 mg-acetaminophen 325 mg tablet RxNorm: 615594 1 Tablet(s) PO Q4H as needed 10/26/2015 10/26/2015 Inactive alprazolam 0.5 mg tablet RxNorm: 707352 1 Tablet(s) PO PRN as needed 10/26/2015 10/26/2015 Inactive promethazine 25 mg tablet RxNorm: 426645 1 Tablet(s) PO Q6-8H as needed 10/26/2015 11/15/2015 Inactive glipizide 5 mg tablet RxNorm: 091898 1/2 Tablet(s) PO daily 10/13/2015 10/26/2015 Inactive cefdinir 300 mg capsule RxNorm: 434942 1 Capsule(s) PO BID 10/05/2015 10/14/2015 Inactive prednisone 20 mg tablet RxNorm: 162999 2 Tablet(s) PO daily 10/05/2015 10/09/2015 Inactive Diflucan 150 mg tablet RxNorm: 463768 1 Tablet(s) PO daily 10/05/2015 10/11/2015 Inactive Invokamet 50 mg-500 mg tablet RxNorm: 2624440 1 Tablet(s) PO daily 10/05/2015 11/03/2015 Inactive alprazolam 0.5 mg tablet RxNorm: 867675 1 Tablet(s) PO PRN as needed 10/01/2015 02/23/2016 Inactive promethazine 25 mg tablet RxNorm: 222466 1 Tablet(s) PO Q6-8H as needed 09/30/2015 10/25/2015 Inactive bumetanide 1 mg tablet RxNorm: 150352 TAKE ONE TABLET BY MOUTH TWICE DAILY 09/30/2015 10/29/2015 Inactive bumetanide 1 mg tablet RxNorm: 009900 TAKE ONE TABLET BY MOUTH TWICE DAILY 09/20/2015 12/18/2015 Inactive bumetanide 1 mg tablet RxNorm: 524263 1 Tablet(s) PO BID 09/20/2015 10/19/2015 Inactive metoprolol succinate ER 100 mg tablet,extended release 24 hr RxNorm: 313509 1 Tablet(s) PO daily 09/16/2015 03/13/2016 Inactive spironolactone 50 mg tablet RxNorm: 112927 1 Tablet(s) PO BID 09/16/2015 03/13/2016 Inactive alprazolam 0.5 mg tablet RxNorm: 714110 1 Tablet(s) PO PRN as needed 09/16/2015 10/25/2015 Inactive hydrocodone 7.5 mg-acetaminophen 325 mg tablet RxNorm: 265119 1 Tablet(s) PO Q4H as needed 09/16/2015 10/25/2015 Inactive Invokamet 50 mg-1,000 mg tablet RxNorm: 5125908 1 Tablet(s) PO daily 09/06/2015 09/05/2015 Inactive Invokamet 50 mg-1,000 mg tablet RxNorm: 7886593 1 Tablet(s) PO daily 09/06/2015 12/04/2015 Inactive promethazine 25 mg tablet RxNorm: 664441 TAKE ONE TABLET BY MOUTH EVERY 6 TO 8 HOURS NEEDED 09/01/2015 09/16/2015 Inactive promethazine 25 mg tablet RxNorm: 156757 1 Tablet(s) PO Q6-8H as needed 08/27/2015 09/25/2015 Inactive metoprolol succinate ER 100 mg tablet,extended release 24 hr RxNorm: 586675 1 Tablet(s) PO daily 08/20/2015 09/15/2015 Inactive bumetanide 1 mg tablet RxNorm: 016761 1 Tablet(s) PO BID 08/20/2015 09/18/2015 Inactive Bumex 1 mg tablet RxNorm: 375764 1 Tablet(s) PO BID 08/20/2015 11/15/2015 Inactive Kenalog 40 mg/mL suspension for injection RxNorm: 8385317 Milliliter(s) Inj 08/20/2015 08/20/2015 Inactive bumetanide 1 mg tablet RxNorm: 203482 1 Tablet(s) PO BID 08/20/2015 08/19/2015 Inactive Levaquin 500 mg tablet RxNorm: 599808 1 Tablet(s) PO daily 08/20/2015 08/26/2015 Inactive promethazine 25 mg tablet RxNorm: 471740 1 Tablet(s) PO Q6-8H as needed 08/06/2015 08/26/2015 Inactive metformin 500 mg tablet RxNorm: 671445 Tablet(s) PO 500mg in the morning and 1000mg at night No Start Date 09/16/2015 Inactive alprazolam 0.25 mg tablet RxNorm: 541622 1 Tablet(s) PO daily as needed anxiety No Start Date 08/07/2018 Inactive Lantus Solostar 100 unit/mL (3 mL) subcutaneous insulin pen RxNorm: 007791 Unit(s) SQ UD 10 units QHS x 5 days, if blood sugars are above 200 increase to 15 units x 5 days, if still 200 increase to 20 units. No Start Date 04/13/2016 Inactive alprazolam 0.5 mg tablet RxNorm: 051948 1 Tablet(s) PO PRN as needed No Start Date 09/15/2015 Inactive cyclobenzaprine 10 mg tablet RxNorm: 140696 1 Tablet(s) PO PRN as needed No Start Date 04/05/2016 Inactive lidocaine 4 % topical patch RxNorm: 9749705 1 Patch TOP on for 12 hours and off for 12 hours No Start Date 04/12/2016 Inactive metoprolol tartrate 50 mg tablet RxNorm: 100315 1 Tablet(s) PO BID No Start Date 11/10/2015 Inactive spironolactone 50 mg tablet RxNorm: 281718 1 Tablet(s) PO BID No Start Date 09/15/2015 Inactive hydrocodone 7.5 mg-acetaminophen 325 mg tablet RxNorm: 221456 1 Tablet(s) PO Q4H as needed No Start Date 09/15/2015 Inactive promethazine 25 mg tablet RxNorm: 789473 1 Tablet(s) PO PRN as needed No Start Date 08/05/2015 Inactive Medication Administered Medication Codes Instructions Start Date Status Kenalog 40 mg/mL suspension for injection RxNorm: 2278017 Milliliter 11/01/2018 No longer Active ceftriaxone 500 mg solution for injection RxNorm: 3453314 06/05/2018 No longer Active Kenalog 40 mg/mL suspension for injection RxNorm: 0768257 15.Milliliter 02/19/2018 No longer Active Kenalog 40 mg/mL suspension for injection RxNorm: 0511865 Milliliter 09/05/2017 No longer Active Kenalog 40 mg/mL suspension for injection RxNorm: 6952591 1Milliliter 04/24/2017 No longer Active Kenalog 40 mg/mL suspension for injection RxNorm: 6330597 Milliliter 01/09/2017 No longer Active Kenalog 40 mg/mL suspension for injection RxNorm: 8422082 1Milliliter 04/06/2016 No longer Active Kenalog 40 mg/mL suspension for injection RxNorm: 8092944 1Milliliter 02/28/2016 No longer Active Kenalog 40 mg/mL suspension for injection RxNorm: 5603543 Milliliter 08/20/2015 No longer Active Immunizations Vaccine Codes Date Status Influenza CVX: 141 03/14/2018 completed Influenza CVX: 141 04/24/2017 completed Pneumococcal (Adult) CVX: 33 04/13/2016 completed Influenza CVX: 141 03/30/2016 completed Assessments Condition Codes Effective Dates Dysuria ICD-10: R30.0 ICD-9: 788.1 12/16/2018 Other allergic rhinitis ICD-10: J30.89 ICD-9: 477.8 11/18/2018 Simple chronic bronchitis ICD-10: J41.0 ICD-9: 491.0 11/18/2018 Acute laryngopharyngitis ICD-10: J06.0 ICD-9: 465.0 11/01/2018 Essential (primary) hypertension ICD-10: I10 ICD-9: 401.1 08/06/2018 Hidradenitis suppurativa ICD-10: L73.2 ICD-9: 705.83 07/22/2018 Encounter for other specified surgical aftercare ICD-10: Z48.89 ICD-9: V58.49 07/18/2018 Cellulitis of right axilla ICD-10: L03.111 ICD-9: 682.3 06/28/2018 Diarrhea, unspecified ICD-10: R19.7 ICD-9: 787.91 06/28/2018 Type 2 diabetes mellitus with hyperglycemia ICD-10: E11.65 ICD-9: 250.02 06/05/2018 Gastro-esophageal reflux disease without esophagitis ICD-10: K21.9 ICD-9: 530.81 03/26/2018 Cough ICD-10: R05 ICD-9: 786.2 03/26/2018 Other hypertrophic disorders of the skin ICD-10: L91.8 ICD-9: 701.9 03/14/2018 Encounter for immunization ICD-10: Z23 ICD-9: V04.81 03/14/2018 Acute bronchitis due to other specified organisms [...] Excessive and frequent menstruation with irregular cycle ICD- 10: N92.1 ICD-9: 626.2 12/23/2015 Other insomnia ICD-10: [...] Visit Reason For Visit Effective Dates Notes dysuria 12/16/2018 cough 11/18/2018 cough 11/01/2018 hypertension 08/06/2018 wound follow up 07/22/2018 Post-op wound 07/18/2018 skin lesion 06/28/2018 skin lesion 06/17/2018 skin [...] Code Item Item Code Result Date %Hba1C Kqn925 % HbA1c 47479- 6 8.4 % 06/06/2018 %Hba1C Mnv695 Gluc Ave 194 mg/dL 06/06/2018 Lipid Ord30 CHOL 233 mg/dL 03/14/2018 Lipid Ord30 HDL 38.0 mg/dl 03/14/2018 Lipid Ord30 TRIG 143 mg/dL 03/14/2018 Lipid Ord30 LDL 166 mg/dL 03/14/2018 Lipid Ord30 C/HDL 6.1 Ratio 03/14/2018 %Hba1C Owy635 % HbA1c 81333- 6 9.8 % 03/14/2018 %Hba1C Zsp580 Gluc Ave 235 mg/dL 03/14/2018 Tsh Ord6 TSH (3rd IS) 1.09 uIU/mL 03/14/2018 Comp Metabolic Mgl226 NA 137 mEq/L 03/14/2018 Comp Metabolic Okl558 K 4.6 mEq/L 03/14/2018 Comp Metabolic Lhv377 CL 100 mEq/L 03/14/2018 Comp Metabolic Fbh741 CO2 27.0 mEq/L 03/14/2018 Comp Metabolic Rdi620 ANION GAP 15 03/14/2018 Comp Metabolic Rvm063 GLUCOSE 144 mg/dL 03/14/2018 Comp Metabolic Ept755 Creat 0.5 mg/dL 03/14/2018 Comp Metabolic Vwg496 eGFR 138 ml/min/1.73m2 03/14/2018 Comp Metabolic Xgq300 BUN 9 mg/dL 03/14/2018 Comp Metabolic Qft446 B/C Ratio 17.6 Ratio 03/14/2018 Comp Metabolic Aap154 CALCIUM 10.0 mg/dL 03/14/2018 Comp Metabolic Its441 ALK PHOS 102 U/L 03/14/2018 Comp Metabolic Jrg332 AST(SGOT) 31 U/L 03/14/2018 Comp Metabolic Ejv969 ALT(SGPT) 41 U/L 03/14/2018 Comp Metabolic Zjm876 BILI T 0.5 mg/dL 03/14/2018 Comp Metabolic Xvr511 ALBUMIN 4.3 g/dL 03/14/2018 Comp Metabolic Kqv498 TPRO 6.8 g/dL 03/14/2018 Comp Metabolic Kng100 GLOB 2.5 g/dL 03/14/2018 Comp Metabolic Qpz164 A/G Ratio 1.8 Ratio 03/14/2018 Comp Metabolic Fna955 Osmo 275 mOsmo 03/14/2018 Cbc With Differential Ord2 WBC 16.74 K/ul 03/14/2018 Cbc With Differential Ord2 RBC 5.27 M/ul 03/14/2018 Cbc With Differential Ord2 HGB 15.7 g/dl 03/14/2018 Cbc With Differential Ord2 HCT 47.7 % 03/14/2018 Cbc With Differential Ord2 Neut% 67.5 % 03/14/2018 Cbc With Differential Ord2 MCV 90.5 fl 03/14/2018 Cbc With Differential Ord2 Lymph% 25.7 % 03/14/2018 Cbc With Differential Ord2 MCH 29.8 pg 03/14/2018 Cbc With Differential Ord2 Pershing% 5.6 % 03/14/2018 Cbc With Differential Ord2 MCHC 32.9 pg 03/14/2018 Cbc With Differential Ord2 Eos% 0.9 % 03/14/2018 Cbc With Differential Ord2 PLT 479 K/ul 03/14/2018 Cbc With Differential Ord2 Baso% 0.3 % 03/14/2018 Cbc With Differential Ord2 RDW 14.2 % 03/14/2018 Cbc With Differential Ord2 Neut ABS# 11.29 K/ul 03/14/2018 Cbc With Differential Ord2 Lymph ABS# 4.31 K/ul 03/14/2018 Cbc With Differential Ord2 [place] ABS# 0.9 K/ul 03/14/2018 Cbc With Differential Ord2 Eos ABS# 0.2 K/ul 03/14/2018 Cbc With Differential Ord2 Baso ABS# 0.1 K/ul 03/14/2018 %Hba1C Mhl891 % HbA1c 80834- 6 8.8 % 06/13/2017 %Hba1C Uzr444 Gluc Ave 206 mg/dL 06/13/2017 Tsh Ord6 [...] 30.2 pg 06/13/2017 Cbc With Differential Ord2 [place]% 4.9 % 06/13/2017 Cbc With Differential Ord2 [...] 3.21 K/ul 06/13/2017 Cbc With Differential Ord2 [place] ABS# 0.7 K/ul 06/13/2017 Cbc With Differential Ord2 Eos ABS# 0.2 K/ul 06/13/2017 Cbc With Differential Ord2 Baso ABS# 0.1 K/ul 06/13/2017 Lipid Ord30 CHOL 219 mg/dL 06/13/2017 Lipid Ord30 HDL 40.0 mg/dl 06/13/2017 Lipid Ord30 TRIG 200 mg/dL 06/13/2017 Lipid Ord30 LDL 139 mg/dL 06/13/2017 Lipid Ord30 C/HDL 5.5 Ratio 06/13/2017 Comp Metabolic Oyb351 NA 139 mEq/L 06/13/2017 Comp Metabolic Cke692 K 4.4 mEq/L 06/13/2017 Comp Metabolic Rgt077 CL 100 mEq/L 06/13/2017 Comp Metabolic Wzo477 CO2 29.0 mEq/L 06/13/2017 Comp Metabolic Yyr526 ANION GAP 14 06/13/2017 Comp Metabolic Ljd095 GLUCOSE 257 mg/dL 06/13/2017 Comp Metabolic Vkm595 Creat 0.5 mg/dL 06/13/2017 Comp Metabolic Sfz682 eGFR 145 ml/min/1.73m2 06/13/2017 Comp Metabolic Qug555 BUN 13 mg/dL 06/13/2017 Comp Metabolic Mrb680 B/C Ratio 26.5 Ratio 06/13/2017 Comp Metabolic Fgx150 CALCIUM 9.7 mg/dL 06/13/2017 Comp Metabolic Ayi077 ALK PHOS 98 U/L 06/13/2017 Comp Metabolic Elj460 AST(SGOT) 30 U/L 06/13/2017 Comp Metabolic Eqz092 ALT(SGPT) 43 U/L 06/13/2017 Comp Metabolic Nrv216 BILI T 0.5 mg/dL 06/13/2017 Comp Metabolic Zsb048 ALBUMIN 4.0 g/dL 06/13/2017 Comp Metabolic Rsl566 TPRO 6.4 g/dL 06/13/2017 Comp Metabolic Wio651 GLOB 2.4 g/dL 06/13/2017 Comp Metabolic Lla598 A/G Ratio 1.7 Ratio 06/13/2017 Comp Metabolic Xfq262 Osmo 286 mOsmo 06/13/2017 %Hba1C Kvs190 % HbA1c 06953- 6 11.1 % 2016 %Hba1C Qzv540 Gluc Ave 272 mg/dL 2016 C-Reactive Protein Qnt Crqnt CRP 4.7 mg/dl 2016 Comp Metabolic Qqs423 NA 136 mEq/L 2016 Comp Metabolic Uyq876 K 4.1 mEq/L 2016 Comp Metabolic Xsb052 CL 96 mEq/L 2016 Comp Metabolic Ncc972 CO2 29.0 mEq/L 2016 Comp Metabolic Txj264 ANION GAP 15 2016 Comp Metabolic Pwt398 GLUCOSE 291 mg/dL 2016 Comp Metabolic Whk304 Creat 0.4 mg/dL 2016 Comp Metabolic Ydq811 eGFR 165 ml/min/1.73m2 2016 Comp Metabolic Mhw461 BUN 11 mg/dL 2016 Comp Metabolic Xch581 B/C Ratio 25.0 Ratio 2016 Comp Metabolic Ehk252 CALCIUM 9.4 mg/dL 2016 Comp Metabolic Jgj613 ALK PHOS 111 U/L 2016 Comp Metabolic Mny264 AST(SGOT) 46 U/L 2016 Comp Metabolic Baz283 ALT(SGPT) 60 U/L 2016 Comp Metabolic Kaj279 BILI T 0.4 mg/dL 2016 Comp Metabolic Zxt648 ALBUMIN 4.0 g/dL 2016 Comp Metabolic Zff551 TPRO 6.5 g/dL 2016 Comp Metabolic Lfv165 GLOB 2.6 g/dL 2016 Comp Metabolic Whv834 A/G Ratio 1.5 Ratio 2016 Comp Metabolic Wha884 Osmo 282 mOsmo 2016 Cbc With Differential Ord2 WBC 14.64 K/ul 2016 Cbc With Differential Ord2 RBC 4.95 M/ul 2016 Cbc With Differential Ord2 HGB 15.1 g/dl 2016 Cbc With Differential Ord2 HCT 46.2 % 2016 Cbc With Differential Ord2 Neut% 69.6 % 2016 Cbc With Differential Ord2 MCV 93.3 fl 2016 Cbc With Differential Ord2 Lymph% 24.1 % 2016 Cbc With Differential Ord2 MCH 30.5 pg 2016 Cbc With Differential Ord2 Pershing% 4.7 % 2016 Cbc With Differential Ord2 MCHC [...] 3.53 K/ul 2016 Cbc With Differential Ord2 [place] ABS# 0.7 K/ul 2016 Cbc With Differential Ord2 Eos ABS# 0.2 K/ul 2016 Cbc With Differential Ord2 Baso ABS# 0.1 K/ul 2016 Lipid Ord30 CHOL 228 mg/dL 05/05/2016 Lipid Ord30 HDL 42.0 mg/dl 05/05/2016 Lipid Ord30 TRIG 168 mg/dL 05/05/2016 Lipid Ord30 LDL 152 mg/dL 05/05/2016 Lipid Ord30 C/HDL 5.4 Ratio 05/05/2016 Comp Metabolic Wnr374 NA 135 mEq/L 05/05/2016 Comp Metabolic Vvo536 K 4.1 mEq/L 05/05/2016 Comp Metabolic Rnf576 CL 99 mEq/L 05/05/2016 Comp Metabolic Gtv542 CO2 29.0 mEq/L 05/05/2016 Comp Metabolic Meo452 ANION GAP 11 05/05/2016 Comp Metabolic Okz199 GLUCOSE 229 mg/dL 05/05/2016 Comp Metabolic Vto203 Creat 0.5 mg/dL 05/05/2016 Comp Metabolic Ray981 eGFR 150 ml/min/1.73m2 05/05/2016 Comp Metabolic Awr940 BUN 14 mg/dL 05/05/2016 Comp Metabolic Mpe799 B/C Ratio 29.2 Ratio 05/05/2016 Comp Metabolic Gct473 CALCIUM 9.1 mg/dL 05/05/2016 Comp Metabolic Fxs561 ALK PHOS 112 U/L 05/05/2016 Comp Metabolic Ydv346 AST(SGOT) 59 U/L 05/05/2016 Comp Metabolic Zhq282 ALT(SGPT) 63 U/L 05/05/2016 Comp Metabolic Dnb176 BILI T 0.7 mg/dL 05/05/2016 Comp Metabolic Rpe612 ALBUMIN 3.8 g/dL 05/05/2016 Comp Metabolic Bov487 TPRO 6.5 g/dL 05/05/2016 Comp Metabolic Sxi546 GLOB 2.7 g/dL 05/05/2016 Comp Metabolic Hat241 A/G Ratio 1.4 Ratio 05/05/2016 Comp Metabolic Rzt285 Osmo 278 mOsmo 05/05/2016 Cbc With Differential Ord2 WBC 16.31 K/ul 05/05/2016 Cbc With Differential Ord2 RBC 5.03 M/ul 05/05/2016 Cbc With Differential Ord2 HGB 15.2 g/dl 05/05/2016 Cbc With Differential Ord2 HCT 45.9 % 05/05/2016 Cbc With Differential Ord2 Neut% 72.1 % 05/05/2016 Cbc With Differential Ord2 MCV 91.3 fl 05/05/2016 Cbc With Differential Ord2 Lymph% 22.0 % 05/05/2016 Cbc With Differential Ord2 MCH 30.2 pg 05/05/2016 Cbc With Differential Ord2 Pershing% 4.4 % 05/05/2016 Cbc With Differential Ord2 [...] 3.59 K/ul 05/05/2016 Cbc With Differential Ord2 [place] ABS# 0.7 K/ul 05/05/2016 Cbc With Differential Ord2 Eos ABS# 0.1 K/ul 05/05/2016 Cbc With Differential Ord2 Baso ABS# 0.1 K/ul 05/05/2016 %Hba1C Jwu403 % HbA1c 53471- 6 10.4 % 05/05/2016 %Hba1C Xnn719 Gluc Ave 252 mg/dL 05/05/2016 Hcg Beta Subunit Qual Serum 559736 B-HCG QUALITATIVE NEGATIVE 12/27/2015 GC/CHL PRB 2729110 Chl trach DNA Negative 12/25/2015 GC/CHL PRB 1535633 GC PROBE Negative 12/25/2015 Comp. Metabolic Panel (14) 07299 GLUCOSE 136 mg/dL 12/17/2015 Comp. Metabolic Panel (14) 58559 BUN 9 mg/dL 12/17/2015 Comp. Metabolic Panel (14) 36435 CREATININE 0.67 mg/dL 12/17/2015 Comp. Metabolic Panel (14) 51352 SODIUM 136 mmol/L 12/17/2015 Comp. Metabolic Panel (14) 59112 POTASSIUM 4.4 mmol/L 12/17/2015 Comp. Metabolic Panel (14) 91282 CHLORIDE 95 mmol/L 12/17/2015 Comp. Metabolic Panel (14) 73087 CARBON DIOXIDE 28 mmol/L 12/17/2015 Comp. Metabolic Panel (14) 63035 CALCIUM 10.1 mg/dL 12/17/2015 Comp. Metabolic Panel (14) 91683 TOTAL PROTEIN 7.0 g/dL 12/17/2015 Comp. Metabolic Panel (14) 01533 ALBUMIN 4.5 g/dL 12/17/2015 Comp. Metabolic Panel (14) 26798 ALKALINE PHOSPHATASE 87 U/L 12/17/2015 Comp. Metabolic Panel (14) 90375 TOTAL BILIRUBIN 0.5 mg/dL 12/17/2015 Comp. Metabolic Panel (14) 62706 SGOT (AST) 38 U/L 12/17/2015 Comp. Metabolic Panel (14) 00671 SGPT (ALT) 41 U/L 12/17/2015 Comp. Metabolic Panel (14) 44617 eGFR (mL/min/1.73m2) >60 12/17/2015 Comp. Metabolic Panel (14) 96915 12/17/2015 Cbc With Differential/Platelet 26015 WBC 16.67 thou/uL 12/17/2015 Cbc With Differential/Platelet 93536 RBC 5.11 mil/uL 12/17/2015 Cbc With Differential/Platelet 03018 HEMOGLOBIN 14.8 g/dL 12/17/2015 Cbc With Differential/Platelet 23739 HEMATOCRIT 48.7 % 12/17/2015 Cbc With Differential/Platelet 47410 MCV 95.4 fL 12/17/2015 Cbc With Differential/Platelet 88639 MCH 29.0 pg 12/17/2015 Cbc With Differential/Platelet 31746 MCHC 30.4 g/dL 12/17/2015 Cbc With Differential/Platelet 19384 RDW-CV 14.6 % 12/17/2015 Cbc With Differential/Platelet 09129 PLATELET COUNT 471 thou/uL 12/17/2015 Cbc With Differential/Platelet 56822 NEUTROPHIL % 71.3 % 12/17/2015 Cbc With Differential/Platelet 05554 LYMPHOCYTE % 22.4 % 12/17/2015 Cbc With Differential/Platelet 85680 MONOCYTE % 4.8 % 12/17/2015 Cbc With Differential/Platelet 21799 EOS % 0.7 % 12/17/2015 Cbc With Differential/Platelet 25717 BASO % 0.7 % 12/17/2015 Cbc With Differential/Platelet 01627 NEUTROPHIL ABS # 11.89 thou/uL 12/17/2015 Cbc With Differential/Platelet 58304 LYMPH ABS # 3.73 thou/uL 12/17/2015 Cbc With Differential/Platelet 79092 MONOCYTE ABS # 0.80 thou/uL 12/17/2015 Cbc With Differential/Platelet 69449 EOS ABS # 0.12 thou/uL 12/17/2015 Cbc With Differential/Platelet 96816 BASO ABS # 0.12 thou/uL 12/17/2015 Comp. Metabolic Panel (14) GLUCOSE 126 mg/dL 11/13/2015 Comp. Metabolic Panel (14) BUN 10 mg/dL 11/13/2015 Comp. Metabolic Panel (14) CREATININE 0.62 mg/dL 11/13/2015 Comp. Metabolic Panel (14) SODIUM 138 mmol/L 11/13/2015 Comp. Metabolic Panel (14) POTASSIUM 4.3 mmol/L 11/13/2015 Comp. Metabolic Panel (14) CHLORIDE 95 mmol/L 11/13/2015 Comp. Metabolic Panel (14) CARBON DIOXIDE 30 mmol/L 11/13/2015 Comp. Metabolic Panel (14) CALCIUM 10.5 mg/dL 11/13/2015 Comp. Metabolic Panel (14) TOTAL PROTEIN 7.0 g/dL 11/13/2015 Comp. Metabolic Panel (14) ALBUMIN 4.5 g/dL 11/13/2015 Comp. Metabolic Panel (14) ALKALINE PHOSPHATASE 93 U/L 11/13/2015 Comp. Metabolic Panel (14) TOTAL BILIRUBIN 0.4 mg/dL 11/13/2015 Comp. Metabolic Panel (14) SGOT (AST) 51 U/L 11/13/2015 Comp. Metabolic Panel (14) SGPT (ALT) 52 U/L 11/13/2015 Comp. Metabolic Panel (14) eGFR (mL/min/1.73m2) >60 11/13/2015 Comp. Metabolic Panel (14) 11/13/2015 Cbc With Differential/Platelet WBC 17.26 thou/uL 11/13/2015 Cbc With Differential/Platelet RBC 5.43 mil/uL 11/13/2015 Cbc With Differential/Platelet HEMOGLOBIN 16.2 g/dL 11/13/2015 Cbc With Differential/Platelet HEMATOCRIT 53.4 % 11/13/2015 Cbc With Differential/Platelet MCV 98.3 fL 11/13/2015 Cbc With Differential/Platelet MCH 29.8 pg 11/13/2015 Cbc With Differential/Platelet MCHC 30.4 g/dL 11/13/2015 Cbc With Differential/Platelet RDW-CV 15.2 % 11/13/2015 Cbc With Differential/Platelet PLATELET COUNT 453 thou/uL 11/13/2015 Cbc With Differential/Platelet NEUTROPHIL % 74.1 % 11/13/2015 Cbc With Differential/Platelet LYMPHOCYTE % 19.3 % 11/13/2015 Cbc With Differential/Platelet MONOCYTE % 4.9 % 11/13/2015 Cbc With Differential/Platelet EOS % 0.7 % 11/13/2015 Cbc With Differential/Platelet BASO % 1.1 % 11/13/2015 Cbc With Differential/Platelet NEUTROPHIL ABS # 12.79 thou/uL 11/13/2015 Cbc With Differential/Platelet LYMPH ABS # 3.33 thou/uL 11/13/2015 Cbc With Differential/Platelet MONOCYTE ABS # 0.85 thou/uL 11/13/2015 Cbc With Differential/Platelet EOS ABS # 0.12 thou/uL 11/13/2015 Cbc With Differential/Platelet BASO ABS # 0.19 thou/uL 11/13/2015 Hgb A1C With Eag Estimation GLYCOHEMOGLOBIN A1C 53632-9 8.1 % 11/13/2015 Hgb A1C With Eag Estimation ESTIMATED AVG GLUCOSE 186 mg/dL 11/13/2015 Comp. Metabolic Panel (14) 10513 GLUCOSE 84 mg/dL 09/11/2015 Comp. Metabolic Panel (14) 71723 BUN 11 mg/dL 09/11/2015 Comp. Metabolic Panel (14) 22260 CREATININE 0.56 mg/dL 09/11/2015 Comp. Metabolic Panel (14) 52558 SODIUM 142 mmol/L 09/11/2015 Comp. Metabolic Panel (14) 66532 POTASSIUM 4.3 mmol/L 09/11/2015 Comp. Metabolic Panel (14) 29547 CHLORIDE 98 mmol/L 09/11/2015 Comp. Metabolic Panel (14) 71647 CARBON DIOXIDE 27 mmol/L 09/11/2015 Comp. Metabolic Panel (14) 86176 CALCIUM 10.1 mg/dL 09/11/2015 Comp. Metabolic Panel (14) 03865 TOTAL PROTEIN 7.2 g/dL 09/11/2015 Comp. Metabolic Panel (14) 06499 ALBUMIN 4.7 g/dL 09/11/2015 Comp. Metabolic Panel (14) 91613 ALKALINE PHOSPHATASE 109 U/L 09/11/2015 Comp. Metabolic Panel (14) 67518 TOTAL BILIRUBIN 0.3 mg/dL 09/11/2015 Comp. Metabolic Panel (14) 94186 SGOT (AST) 53 U/L 09/11/2015 Comp. Metabolic Panel (14) 13120 SGPT (ALT) 53 U/L 09/11/2015 Comp. Metabolic Panel (14) 59013 eGFR (mL/min/1.73m2) >60 09/11/2015 Comp. Metabolic Panel (14) 32150 09/11/2015 Comp. Metabolic Panel (14) 34666 GLUCOSE 183 mg/dL 08/11/2015 Comp. Metabolic Panel (14) 68998 BUN 10 mg/dL 08/11/2015 Comp. Metabolic Panel (14) 49441 CREATININE 0.46 mg/dL 08/11/2015 Comp. Metabolic Panel (14) 37869 SODIUM 138 mmol/L 08/11/2015 Comp. Metabolic Panel (14) 23012 POTASSIUM 4.0 mmol/L 08/11/2015 Comp. Metabolic Panel (14) 92396 CHLORIDE 98 mmol/L 08/11/2015 Comp. Metabolic Panel (14) 09444 CARBON DIOXIDE 29 mmol/L 08/11/2015 Comp. Metabolic Panel (14) 16032 CALCIUM 9.4 mg/dL 08/11/2015 Comp. Metabolic Panel (14) 88157 TOTAL PROTEIN 6.8 g/dL 08/11/2015 Comp. Metabolic Panel (14) 69878 ALBUMIN 4.4 g/dL 08/11/2015 Comp. Metabolic Panel (14) 85453 ALKALINE PHOSPHATASE 118 U/L 08/11/2015 Comp. Metabolic Panel (14) 66045 TOTAL BILIRUBIN <0.3 mg/dL 08/11/2015 Comp. Metabolic Panel (14) 91965 SGOT (AST) 41 U/L 08/11/2015 Comp. Metabolic Panel (14) 98121 SGPT (ALT) 55 U/L 08/11/2015 Comp. Metabolic Panel (14) 16387 eGFR (mL/min/1.73m2) >60 08/11/2015 Comp. Metabolic Panel (14) 30150 08/11/2015 Cbc With Differential/Platelet 60980 WBC 11.76 thou/uL 08/11/2015 Cbc With Differential/Platelet 58816 RBC 4.98 mil/uL 08/11/2015 Cbc With Differential/Platelet 09772 HEMOGLOBIN 14.2 g/dL 08/11/2015 Cbc With Differential/Platelet 64362 HEMATOCRIT 46.7 % 08/11/2015 Cbc With Differential/Platelet 13326 MCV 93.8 fL 08/11/2015 Cbc With Differential/Platelet 98291 MCH 28.5 pg 08/11/2015 Cbc With Differential/Platelet 24037 MCHC 30.4 g/dL 08/11/2015 Cbc With Differential/Platelet 52463 RDW-CV 14.3 % 08/11/2015 Cbc With Differential/Platelet 25584 PLATELET COUNT 382 thou/uL 08/11/2015 Cbc With Differential/Platelet 07569 NEUTROPHIL % 67.3 % 08/11/2015 Cbc With Differential/Platelet 53827 LYMPHOCYTE % 24.0 % 08/11/2015 Cbc With Differential/Platelet 67055 MONOCYTE % 6.0 % 08/11/2015 Cbc With Differential/Platelet 34211 EOS % 1.6 % 08/11/2015 Cbc With Differential/Platelet 37096 BASO % 1.0 % 08/11/2015 Cbc With Differential/Platelet 22161 NEUTROPHIL ABS # 7.91 thou/uL 08/11/2015 Cbc With Differential/Platelet 30109 LYMPH ABS # 2.82 thou/uL 08/11/2015 Cbc With Differential/Platelet 79313 MONOCYTE ABS # 0.71 thou/uL 08/11/2015 Cbc With Differential/Platelet 73579 EOS ABS # 0.19 thou/uL 08/11/2015 Cbc With Differential/Platelet 11844 BASO ABS # 0.12 thou/uL 08/11/2015 Tsh [id number] TSH 3.220 uIU/mL 08/11/2015 Lipid Panel 60727 CHOLESTEROL 193 mg/dL 08/11/2015 Lipid Panel 17755 TRIGLYCERIDES 192 mg/dL 08/11/2015 Lipid Panel 92361 HDL 38 mg/dL 08/11/2015 Lipid Panel 15420 CHOLESTEROL/HDL 5.08 08/11/2015 Lipid Panel 12707 LDL (CALCULATED) 117 mg/dL 08/11/2015 Lipid Panel 12987 LDL/HDL 3.08 08/11/2015 Lipid Panel 49227 PHENOTYPE TYPE IV BORDERLINE 08/11/2015 Review of Systems System Result Effective Dates Constitutional No recent illness 12/16/2018 Constitutional No chills 12/16/2018 Constitutional No diaphoresis 12/16/2018 Constitutional No fever 12/16/2018 Eyes No eye erythema 12/16/2018 Ears/Nose/Throat/Neck No nasal discharge 12/16/2018 Cardiovascular No chest pain/pressure 12/16/2018 Respiratory No cough 12/16/2018 Gastrointestinal No abdominal pain 12/16/2018 Genitourinary/Nephrology dysuria 12/16/2018 Genitourinary/Nephrology urinary urgency 12/16/2018 Genitourinary/Nephrology urinary frequency 12/16/2018 Neurologic No alteration of consciousness 12/16/2018 Neurologic No mental status change 12/16/2018 Constitutional recent illness 11/18/2018 Constitutional No chills 11/18/2018 Constitutional No diaphoresis 11/18/2018 Constitutional No fever 11/18/2018 Eyes No eye erythema 11/18/2018 Ears/Nose/Throat/Neck nasal allergies 11/18/2018 Ears/Nose/Throat/Neck nasal discharge 11/18/2018 Ears/Nose/Throat/Neck postnasal drip 11/18/2018 Ears/Nose/Throat/Neck sinus congestion 11/18/2018 Ears/Nose/Throat/Neck sore throat 11/18/2018 Cardiovascular No chest pain/pressure 11/18/2018 Cardiovascular No dyspnea 11/18/2018 Respiratory No chest congestion 11/18/2018 Respiratory cough 11/18/2018 Respiratory No dyspnea 11/18/2018 Gastrointestinal No constipation 11/18/2018 Gastrointestinal No diarrhea 11/18/2018 Gastrointestinal No nausea 11/18/2018 Gastrointestinal No vomiting 11/18/2018 Dermatologic No rash 11/18/2018 Neurologic No alteration of consciousness 11/18/2018 Neurologic No mental status change 11/18/2018 Constitutional recent illness 11/01/2018 Constitutional No chills 11/01/2018 Constitutional No diaphoresis 11/01/2018 Constitutional No fever 11/01/2018 Eyes No eye erythema 11/01/2018 Ears/Nose/Throat/Neck nasal allergies 11/01/2018 Ears/Nose/Throat/Neck nasal discharge 11/01/2018 Ears/Nose/Throat/Neck postnasal drip 11/01/2018 Ears/Nose/Throat/Neck sinus congestion 11/01/2018 Ears/Nose/Throat/Neck sore throat 11/01/2018 Cardiovascular No chest pain/pressure 11/01/2018 Cardiovascular No dyspnea 11/01/2018 Respiratory No chest congestion 11/01/2018 Respiratory cough 11/01/2018 Respiratory No dyspnea 11/01/2018 Gastrointestinal No constipation 11/01/2018 Gastrointestinal No diarrhea 11/01/2018 Gastrointestinal No nausea 11/01/2018 Gastrointestinal No vomiting 11/01/2018 Dermatologic No rash 11/01/2018 Neurologic No alteration of consciousness 11/01/2018 Neurologic No mental status change 11/01/2018 Constitutional No recent illness 08/06/2018 Constitutional No chills 08/06/2018 Constitutional No diaphoresis 08/06/2018 Constitutional No fever 08/06/2018 Eyes No eye erythema 08/06/2018 Ears/Nose/Throat/Neck No nasal discharge 08/06/2018 Cardiovascular No chest pain/pressure 08/06/2018 Cardiovascular No dyspnea 08/06/2018 Respiratory No chest congestion 08/06/2018 Respiratory No cough 08/06/2018 Gastrointestinal No abdominal pain 08/06/2018 Neurologic No alteration of consciousness 08/06/2018 Neurologic No mental status change 08/06/2018 Cardiovascular hypertension 08/06/2018 Cardiovascular No palpitations 08/06/2018 Constitutional No recent illness 07/22/2018 Constitutional No chills 07/22/2018 Constitutional No diaphoresis 07/22/2018 Constitutional No fever 07/22/2018 Eyes No eye erythema 07/22/2018 Ears/Nose/Throat/Neck No nasal discharge 07/22/2018 Cardiovascular No chest pain/pressure 07/22/2018 Respiratory No cough 07/22/2018 Dermatologic sores 07/22/2018 Neurologic No alteration of consciousness 07/22/2018 Neurologic No mental status change 07/22/2018 Constitutional No recent illness 07/18/2018 Constitutional No chills 07/18/2018 Constitutional No diaphoresis 07/18/2018 Constitutional No fever 07/18/2018 Eyes No eye erythema 07/18/2018 Ears/Nose/Throat/Neck No nasal discharge 07/18/2018 Cardiovascular No chest pain/pressure 07/18/2018 Respiratory No cough 07/18/2018 Neurologic No alteration of consciousness 07/18/2018 Neurologic No mental status change 07/18/2018 Dermatologic sores 07/18/2018 Constitutional No recent illness 06/28/2018 Constitutional No chills 06/28/2018 Constitutional No diaphoresis 06/28/2018 Constitutional No fever 06/28/2018 Eyes No eye erythema 06/28/2018 Ears/Nose/Throat/Neck No nasal discharge 06/28/2018 Cardiovascular No chest pain/pressure 06/28/2018 Respiratory No cough 06/28/2018 Gastrointestinal No abdominal pain 06/28/2018 Gastrointestinal No constipation 06/28/2018 Gastrointestinal diarrhea 06/28/2018 Gastrointestinal No vomiting 06/28/2018 Gastrointestinal No nausea 06/28/2018 Gastrointestinal No melena 06/28/2018 Gastrointestinal No hematochezia 06/28/2018 Gastrointestinal gas and bloating 06/28/2018 Musculoskeletal No joint complaint 06/28/2018 Dermatologic sores 06/28/2018 Neurologic No alteration of consciousness 06/28/2018 Neurologic No mental status change 06/28/2018 Constitutional No recent illness 06/17/2018 Constitutional No anorexia 06/17/2018 Constitutional No night sweats 06/17/2018 Constitutional No chills 06/17/2018 Constitutional No diaphoresis 06/17/2018 Constitutional fatigue 06/17/2018 Constitutional No fever 06/17/2018 Constitutional No insomnia 06/17/2018 Constitutional No malaise 06/17/2018 Constitutional No weight loss 06/17/2018 Constitutional No weight gain 06/17/2018 Constitutional No recent illness 06/05/2018 Constitutional No chills 06/05/2018 Constitutional No diaphoresis 06/05/2018 Constitutional No fever 06/05/2018 Eyes No eye erythema 06/05/2018 Ears/Nose/Throat/Neck No nasal discharge 06/05/2018 Cardiovascular No chest pain/pressure 06/05/2018 Respiratory No cough 06/05/2018 Neurologic No alteration of consciousness 06/05/2018 Neurologic No mental status change 06/05/2018 Dermatologic cyst 06/05/2018 Constitutional recent illness 03/26/2018 Constitutional No chills 03/26/2018 Constitutional No diaphoresis 03/26/2018 Constitutional No fever 03/26/2018 Eyes No eye erythema 03/26/2018 Ears/Nose/Throat/Neck nasal allergies 03/26/2018 Ears/Nose/Throat/Neck nasal discharge 03/26/2018 Ears/Nose/Throat/Neck No sore throat 03/26/2018 Ears/Nose/Throat/Neck No sinus congestion 03/26/2018 Ears/Nose/Throat/Neck postnasal drip 03/26/2018 Cardiovascular No chest pain/pressure 03/26/2018 Cardiovascular No dyspnea 03/26/2018 Respiratory cough 03/26/2018 Respiratory No chest congestion 03/26/2018 Gastrointestinal No abdominal pain 03/26/2018 Gastrointestinal No constipation 03/26/2018 Gastrointestinal No diarrhea 03/26/2018 Gastrointestinal gastroesophageal reflux 03/26/2018 Gastrointestinal No vomiting 03/26/2018 Gastrointestinal No nausea 03/26/2018 Gastrointestinal No melena 03/26/2018 Gastrointestinal No hematochezia 03/26/2018 Dermatologic No rash 03/26/2018 Neurologic No alteration of consciousness 03/26/2018 Neurologic No mental status change 03/26/2018 Constitutional recent illness 03/14/2018 Constitutional No chills 03/14/2018 Constitutional No diaphoresis 03/14/2018 Constitutional No fever 03/14/2018 Eyes No eye erythema 03/14/2018 Ears/Nose/Throat/Neck nasal discharge 03/14/2018 Ears/Nose/Throat/Neck nasal allergies 03/14/2018 Ears/Nose/Throat/Neck No sore throat 03/14/2018 Ears/Nose/Throat/Neck No sinus congestion 03/14/2018 Cardiovascular No chest pain/pressure 03/14/2018 Cardiovascular No dyspnea 03/14/2018 Respiratory cough 03/14/2018 Respiratory No chest congestion 03/14/2018 Respiratory No dyspnea 03/14/2018 Dermatologic acrochordon (skin tags) 03/14/2018 Neurologic No alteration of consciousness 03/14/2018 Neurologic No mental status change 03/14/2018 Constitutional recent illness 03/07/2018 Eyes No eye erythema 03/07/2018 Ears/Nose/Throat/Neck nasal allergies 03/07/2018 Ears/Nose/Throat/Neck nasal discharge 03/07/2018 Ears/Nose/Throat/Neck postnasal drip 03/07/2018 Ears/Nose/Throat/Neck sinus congestion 03/07/2018 Cardiovascular No chest pain/pressure 03/07/2018 Respiratory cough 03/07/2018 Respiratory dyspnea on exertion 03/07/2018 Respiratory No dyspnea 03/07/2018 Respiratory wheezing 03/07/2018 Gastrointestinal No abdominal pain 03/07/2018 Musculoskeletal No joint complaint 03/07/2018 Dermatologic No rash 03/07/2018 Neurologic No alteration of consciousness 03/07/2018 Neurologic No mental status change 03/07/2018 Constitutional No diaphoresis 03/07/2018 Constitutional No chills 03/07/2018 Constitutional No fever 03/07/2018 Respiratory No chest congestion 03/07/2018 Respiratory No productive sputum 03/07/2018 Constitutional recent illness 02/19/2018 Constitutional chills 02/19/2018 Constitutional fever 02/19/2018 Eyes No eye erythema 02/19/2018 Ears/Nose/Throat/Neck nasal allergies 02/19/2018 Ears/Nose/Throat/Neck nasal discharge 02/19/2018 Ears/Nose/Throat/Neck postnasal drip 02/19/2018 Ears/Nose/Throat/Neck sinus congestion 02/19/2018 Cardiovascular No chest pain/pressure 02/19/2018 Respiratory productive sputum 02/19/2018 Respiratory cough 02/19/2018 Respiratory wheezing 02/19/2018 Gastrointestinal No abdominal pain 02/19/2018 Musculoskeletal No joint complaint 02/19/2018 Dermatologic No rash 02/19/2018 Neurologic No alteration of consciousness 02/19/2018 Neurologic No mental status change 02/19/2018 Respiratory chest congestion 02/19/2018 Respiratory No dyspnea 02/19/2018 Respiratory dyspnea on exertion 02/19/2018 Constitutional No recent illness 01/08/2018 Constitutional No chills 01/08/2018 Constitutional No diaphoresis 01/08/2018 Constitutional No fever 01/08/2018 Eyes No eye erythema 01/08/2018 Ears/Nose/Throat/Neck No nasal discharge 01/08/2018 Ears/Nose/Throat/Neck No nasal allergies 01/08/2018 Cardiovascular No chest pain/pressure 01/08/2018 Respiratory No cough 01/08/2018 Respiratory No chest congestion 01/08/2018 Gastrointestinal No abdominal pain 01/08/2018 Genitourinary/Nephrology dysuria 01/08/2018 Genitourinary/Nephrology vaginal discharge 01/08/2018 Dermatologic rash 01/08/2018 Neurologic No alteration of consciousness 01/08/2018 Neurologic No mental status change 01/08/2018 Constitutional No recent illness 11/23/2017 Constitutional No chills 11/23/2017 Constitutional No fever 11/23/2017 Eyes No eye erythema 11/23/2017 Ears/Nose/Throat/Neck No nasal discharge 11/23/2017 Cardiovascular No chest pain/pressure 11/23/2017 Cardiovascular No dyspnea 11/23/2017 Respiratory No cough 11/23/2017 Respiratory No dyspnea 11/23/2017 Musculoskeletal joint complaint 11/23/2017 Neurologic No alteration of consciousness 11/23/2017 Neurologic No mental status change 11/23/2017 Constitutional recent illness 09/05/2017 Constitutional chills 09/05/2017 Constitutional No diaphoresis 09/05/2017 Constitutional fever 09/05/2017 Eyes No eye erythema 09/05/2017 Ears/Nose/Throat/Neck nasal allergies 09/05/2017 Ears/Nose/Throat/Neck nasal discharge 09/05/2017 Ears/Nose/Throat/Neck otalgia 09/05/2017 Ears/Nose/Throat/Neck postnasal drip 09/05/2017 Ears/Nose/Throat/Neck sinus congestion 09/05/2017 Ears/Nose/Throat/Neck sore throat 09/05/2017 Cardiovascular No chest pain/pressure 09/05/2017 Respiratory chest congestion 09/05/2017 Respiratory cough 09/05/2017 Respiratory dyspnea on exertion 09/05/2017 Respiratory No dyspnea 09/05/2017 Dermatologic No rash 09/05/2017 Neurologic No alteration of consciousness 09/05/2017 Neurologic No mental status change 09/05/2017 Constitutional No recent illness 06/07/2017 Constitutional No chills 06/07/2017 Constitutional No diaphoresis 06/07/2017 Constitutional No fever 06/07/2017 Eyes No eye erythema 06/07/2017 Ears/Nose/Throat/Neck nasal allergies 06/07/2017 Ears/Nose/Throat/Neck nasal discharge 06/07/2017 Cardiovascular No chest pain/pressure 06/07/2017 Respiratory No cough 06/07/2017 Respiratory dyspnea on exertion 06/07/2017 Gastrointestinal No abdominal pain 06/07/2017 Musculoskeletal joint complaint 06/07/2017 Dermatologic rash 06/07/2017 Neurologic No alteration of consciousness 06/07/2017 Neurologic No mental status change 06/07/2017 Constitutional No recent illness 04/24/2017 Constitutional No chills 04/24/2017 Constitutional No fever 04/24/2017 Eyes No eye erythema 04/24/2017 Ears/Nose/Throat/Neck No nasal discharge 04/24/2017 Cardiovascular No chest pain/pressure 04/24/2017 Cardiovascular No dyspnea 04/24/2017 Respiratory No cough 04/24/2017 Respiratory No dyspnea 04/24/2017 Musculoskeletal joint complaint 04/24/2017 Neurologic No alteration of consciousness 04/24/2017 Neurologic No mental status change 04/24/2017 Constitutional recent illness 01/09/2017 Constitutional No chills 01/09/2017 Constitutional fatigue 01/09/2017 Constitutional No fever 01/09/2017 Eyes No eye erythema 01/09/2017 Constitutional weight loss 01/09/2017 Ears/Nose/Throat/Neck nasal discharge 01/09/2017 Ears/Nose/Throat/Neck nasal allergies 01/09/2017 Ears/Nose/Throat/Neck dizziness 01/09/2017 Ears/Nose/Throat/Neck otalgia 01/09/2017 Ears/Nose/Throat/Neck postnasal drip 01/09/2017 Ears/Nose/Throat/Neck sore throat 01/09/2017 Cardiovascular No chest pain/pressure 01/09/2017 Cardiovascular No dyspnea 01/09/2017 Respiratory cough 01/09/2017 Respiratory No dyspnea 01/09/2017 Gastrointestinal No abdominal pain 01/09/2017 Gastrointestinal No constipation 01/09/2017 Gastrointestinal No diarrhea 01/09/2017 Gastrointestinal No vomiting 01/09/2017 Gastrointestinal nausea 01/09/2017 Musculoskeletal No joint complaint 01/09/2017 Dermatologic No rash 01/09/2017 Neurologic No alteration of consciousness 01/09/2017 Neurologic No mental status change 01/09/2017 Constitutional recent illness 10/30/2016 Constitutional No chills 10/30/2016 Constitutional No diaphoresis 10/30/2016 Constitutional No fever 10/30/2016 Eyes No eye erythema 10/30/2016 Ears/Nose/Throat/Neck No nasal allergies 10/30/2016 Ears/Nose/Throat/Neck No nasal discharge 10/30/2016 Cardiovascular No chest pain/pressure 10/30/2016 Respiratory No cough 10/30/2016 Respiratory No dyspnea 10/30/2016 Gastrointestinal No abdominal pain 10/30/2016 Genitourinary/Nephrology dysuria 10/30/2016 Neurologic No alteration of consciousness 10/30/2016 Neurologic No mental status change 10/30/2016 Endocrine diabetes mellitus type 2 10/30/2016 Constitutional recent illness 10/09/2016 Constitutional No chills 10/09/2016 Constitutional No diaphoresis 10/09/2016 Constitutional No fever 10/09/2016 Eyes No eye erythema 10/09/2016 Ears/Nose/Throat/Neck No nasal allergies 10/09/2016 Ears/Nose/Throat/Neck No nasal discharge 10/09/2016 Cardiovascular No chest pain/pressure 10/09/2016 Respiratory No cough 10/09/2016 Respiratory No dyspnea 10/09/2016 Gastrointestinal No abdominal pain 10/09/2016 Genitourinary/Nephrology dysuria 10/09/2016 Neurologic No alteration of consciousness 10/09/2016 Neurologic No mental status change 10/09/2016 Endocrine diabetes mellitus type 2 10/09/2016 Constitutional recent illness 09/12/2016 Constitutional obesity 09/12/2016 Constitutional No chills 09/12/2016 Constitutional fatigue 09/12/2016 Constitutional No fever 09/12/2016 Constitutional malaise 09/12/2016 Eyes No eye erythema 09/12/2016 Ears/Nose/Throat/Neck No nasal allergies 09/12/2016 Ears/Nose/Throat/Neck No nasal discharge 09/12/2016 Cardiovascular No chest pain/pressure 09/12/2016 Respiratory No cough 09/12/2016 Respiratory No dyspnea 09/12/2016 Gastrointestinal abdominal pain 09/12/2016 Gastrointestinal No constipation 09/12/2016 Gastrointestinal No diarrhea 09/12/2016 Gastrointestinal gastroesophageal reflux 09/12/2016 Gastrointestinal No nausea 09/12/2016 Gastrointestinal No vomiting 09/12/2016 Genitourinary/Nephrology vaginal discharge 09/12/2016 Dermatologic No rash 09/12/2016 Neurologic No alteration of consciousness 09/12/2016 Neurologic No mental status change 09/12/2016 Constitutional recent illness 09/05/2016 Constitutional No fever 09/05/2016 Constitutional No chills 09/05/2016 Eyes No eye erythema 09/05/2016 Constitutional malaise 09/05/2016 Constitutional fatigue 09/05/2016 Constitutional obesity 09/05/2016 Ears/Nose/Throat/Neck No nasal allergies 09/05/2016 Ears/Nose/Throat/Neck No nasal discharge 09/05/2016 Cardiovascular No chest pain/pressure 09/05/2016 Respiratory No cough 09/05/2016 Respiratory No dyspnea 09/05/2016 Gastrointestinal abdominal pain 09/05/2016 Gastrointestinal No constipation 09/05/2016 Gastrointestinal No diarrhea 09/05/2016 Gastrointestinal No vomiting 09/05/2016 Gastrointestinal No nausea 09/05/2016 Gastrointestinal gastroesophageal reflux 09/05/2016 Genitourinary/Nephrology vaginal discharge 09/05/2016 Dermatologic No rash 09/05/2016 Neurologic No alteration of consciousness 09/05/2016 Neurologic No mental status change 09/05/2016 Constitutional recent illness 06/16/2016 Constitutional chills 06/16/2016 Constitutional No diaphoresis 06/16/2016 Constitutional fever 06/16/2016 Eyes No eye erythema 06/16/2016 Ears/Nose/Throat/Neck nasal allergies 06/16/2016 Ears/Nose/Throat/Neck nasal discharge 06/16/2016 Ears/Nose/Throat/Neck postnasal drip 06/16/2016 Ears/Nose/Throat/Neck sinus congestion 06/16/2016 Ears/Nose/Throat/Neck sore throat 06/16/2016 Cardiovascular No chest pain/pressure 06/16/2016 Cardiovascular No dyspnea 06/16/2016 Respiratory No chest congestion 06/16/2016 Respiratory cough 06/16/2016 Respiratory No dyspnea 06/16/2016 Dermatologic No rash 06/16/2016 Neurologic No alteration of consciousness 06/16/2016 Neurologic No mental status change 06/16/2016 Ears/Nose/Throat/Neck otalgia 06/16/2016 Respiratory dyspnea on exertion 06/16/2016 Constitutional No recent illness 06/13/2016 Constitutional obesity 06/13/2016 Constitutional No fever 06/13/2016 Eyes No eye erythema 06/13/2016 Ears/Nose/Throat/Neck No nasal allergies 06/13/2016 Ears/Nose/Throat/Neck No nasal discharge 06/13/2016 Cardiovascular No chest pain/pressure 06/13/2016 Respiratory No cough 06/13/2016 Neurologic No alteration of consciousness 06/13/2016 Neurologic No mental status change 06/13/2016 Constitutional No recent illness 05/19/2016 Constitutional obesity 05/19/2016 Constitutional No fever 05/19/2016 Eyes No eye erythema 05/19/2016 Ears/Nose/Throat/Neck No nasal allergies 05/19/2016 Ears/Nose/Throat/Neck No nasal discharge 05/19/2016 Cardiovascular No chest pain/pressure 05/19/2016 Respiratory No cough 05/19/2016 Neurologic No alteration of consciousness 05/19/2016 Neurologic No mental status change 05/19/2016 Constitutional No recent illness 05/08/2016 Constitutional obesity 05/08/2016 Constitutional No fever 05/08/2016 Eyes No eye erythema 05/08/2016 Ears/Nose/Throat/Neck No nasal allergies 05/08/2016 Ears/Nose/Throat/Neck No nasal discharge 05/08/2016 Cardiovascular No chest pain/pressure 05/08/2016 Respiratory No cough 05/08/2016 Neurologic No alteration of consciousness 05/08/2016 Neurologic No mental status change 05/08/2016 Gastrointestinal No abdominal pain 05/08/2016 Constitutional No recent illness 05/05/2016 Constitutional obesity 05/05/2016 Constitutional No fever 05/05/2016 Eyes No eye erythema 05/05/2016 Ears/Nose/Throat/Neck No nasal allergies 05/05/2016 Ears/Nose/Throat/Neck No nasal discharge 05/05/2016 Cardiovascular No chest pain/pressure 05/05/2016 Respiratory No cough 05/05/2016 Gastrointestinal No abdominal pain 05/05/2016 Neurologic No alteration of consciousness 05/05/2016 Neurologic No mental status change 05/05/2016 Constitutional No recent illness 04/10/2016 Constitutional obesity 04/10/2016 Ears/Nose/Throat/Neck No nasal allergies 04/10/2016 Ears/Nose/Throat/Neck No nasal discharge 04/10/2016 Cardiovascular No chest pain/pressure 04/10/2016 Cardiovascular No dyspnea 04/10/2016 Respiratory No cough 04/10/2016 Dermatologic No rash 04/10/2016 Dermatologic No sores 04/10/2016 Neurologic No alteration of consciousness 04/10/2016 Neurologic No mental status change 04/10/2016 Constitutional No fever 04/10/2016 Eyes No eye erythema 04/10/2016 Musculoskeletal shoulder pain 04/10/2016 Constitutional No recent illness 04/06/2016 Constitutional obesity 04/06/2016 Ears/Nose/Throat/Neck No nasal allergies 04/06/2016 Ears/Nose/Throat/Neck No nasal discharge 04/06/2016 Cardiovascular No chest pain/pressure 04/06/2016 Cardiovascular No dyspnea 04/06/2016 Respiratory No cough 04/06/2016 Dermatologic No rash 04/06/2016 Neurologic No alteration of consciousness 04/06/2016 Neurologic No mental status change 04/06/2016 Constitutional No fever 04/06/2016 Eyes No eye erythema 04/06/2016 Musculoskeletal joint complaint 04/06/2016 Constitutional recent illness 03/08/2016 Constitutional obesity 03/08/2016 Constitutional malaise 03/08/2016 Eyes No eye erythema 03/08/2016 Ears/Nose/Throat/Neck nasal allergies 03/08/2016 Ears/Nose/Throat/Neck nasal discharge 03/08/2016 Ears/Nose/Throat/Neck postnasal drip 03/08/2016 Ears/Nose/Throat/Neck sinus congestion 03/08/2016 Cardiovascular No chest pain/pressure 03/08/2016 Respiratory No chest congestion 03/08/2016 Respiratory cough 03/08/2016 Respiratory dyspnea on exertion 03/08/2016 Musculoskeletal No joint complaint 03/08/2016 Dermatologic No rash 03/08/2016 Neurologic No alteration of consciousness 03/08/2016 Neurologic No mental status change 03/08/2016 Constitutional fever 03/08/2016 Respiratory wheezing 03/08/2016 Dermatologic skin lesion 03/08/2016 Constitutional No recent illness 02/28/2016 Constitutional No diaphoresis 02/28/2016 Constitutional fever 02/28/2016 Ears/Nose/Throat/Neck nasal allergies 02/28/2016 Ears/Nose/Throat/Neck nasal discharge 02/28/2016 Ears/Nose/Throat/Neck postnasal drip 02/28/2016 Ears/Nose/Throat/Neck sinus congestion 02/28/2016 Cardiovascular No chest pain/pressure 02/28/2016 Respiratory cough 02/28/2016 Dermatologic No rash 02/28/2016 Neurologic No alteration of consciousness 02/28/2016 Constitutional obesity 02/28/2016 Constitutional chills 02/28/2016 Constitutional malaise 02/28/2016 Eyes No eye erythema 02/28/2016 Respiratory No chest congestion 02/28/2016 Respiratory dyspnea on exertion 02/28/2016 Musculoskeletal No joint complaint 02/28/2016 Neurologic No mental status change 02/28/2016 Constitutional No recent illness 01/18/2016 Constitutional obesity 01/18/2016 Constitutional No fever 01/18/2016 Eyes No eye erythema 01/18/2016 Ears/Nose/Throat/Neck No nasal allergies 01/18/2016 Ears/Nose/Throat/Neck No nasal discharge 01/18/2016 Cardiovascular No chest pain/pressure 01/18/2016 Respiratory No cough 01/18/2016 Gastrointestinal No constipation 01/18/2016 Gastrointestinal No diarrhea 01/18/2016 Musculoskeletal No joint complaint 01/18/2016 Dermatologic No rash 01/18/2016 Neurologic No alteration of consciousness 01/18/2016 Neurologic No mental status change 01/18/2016 Cardiovascular No dyspnea 01/18/2016 Dermatologic No sores 01/18/2016 Constitutional No recent illness 12/23/2015 Constitutional obesity 12/23/2015 Constitutional No fever 12/23/2015 Eyes No eye erythema 12/23/2015 Ears/Nose/Throat/Neck No nasal allergies 12/23/2015 Ears/Nose/Throat/Neck No nasal discharge 12/23/2015 Cardiovascular No chest pain/pressure 12/23/2015 Respiratory No chest congestion 12/23/2015 Respiratory No cough 12/23/2015 Gastrointestinal No constipation 12/23/2015 Gastrointestinal No diarrhea 12/23/2015 Musculoskeletal No joint complaint 12/23/2015 Dermatologic No rash 12/23/2015 Neurologic No alteration of consciousness 12/23/2015 Neurologic No mental status change 12/23/2015 Psychiatric No anxiety 12/23/2015 Psychiatric No depression 12/23/2015 Gastrointestinal No vomiting 12/23/2015 Constitutional No recent illness 12/16/2015 Constitutional obesity 12/16/2015 Constitutional No fever 12/16/2015 Eyes No eye erythema 12/16/2015 Ears/Nose/Throat/Neck No nasal allergies 12/16/2015 Ears/Nose/Throat/Neck No nasal discharge 12/16/2015 Cardiovascular No chest pain/pressure 12/16/2015 Respiratory No chest congestion 12/16/2015 Respiratory No cough 12/16/2015 Gastrointestinal No constipation 12/16/2015 Gastrointestinal No diarrhea 12/16/2015 Musculoskeletal No joint complaint 12/16/2015 Dermatologic No rash 12/16/2015 Neurologic No alteration of consciousness 12/16/2015 Neurologic No mental status change 12/16/2015 Psychiatric No anxiety 12/16/2015 Psychiatric No depression 12/16/2015 Constitutional No recent illness 11/11/2015 Constitutional obesity 11/11/2015 Constitutional No chills 11/11/2015 Constitutional No diaphoresis 11/11/2015 Constitutional No fever 11/11/2015 Eyes No eye erythema 11/11/2015 Ears/Nose/Throat/Neck No nasal allergies 11/11/2015 Ears/Nose/Throat/Neck No nasal discharge 11/11/2015 Cardiovascular No chest pain/pressure 11/11/2015 Respiratory No chest congestion 11/11/2015 Respiratory No cough 11/11/2015 Gastrointestinal No constipation 11/11/2015 Gastrointestinal No diarrhea 11/11/2015 Gastrointestinal No vomiting 11/11/2015 Musculoskeletal No joint complaint 11/11/2015 Dermatologic No rash 11/11/2015 Neurologic No alteration of consciousness 11/11/2015 Neurologic No mental status change 11/11/2015 Endocrine diabetes mellitus type 2 11/11/2015 Constitutional No malaise 11/11/2015 Ears/Nose/Throat/Neck No postnasal drip 11/11/2015 Gastrointestinal No abdominal pain 11/11/2015 Psychiatric No anxiety 11/11/2015 Psychiatric No depression 11/11/2015 Constitutional No recent illness 10/27/2015 Constitutional obesity 10/27/2015 Constitutional No chills 10/27/2015 Constitutional No diaphoresis 10/27/2015 Constitutional No fever 10/27/2015 Constitutional No insomnia 10/27/2015 Eyes No eye erythema 10/27/2015 Ears/Nose/Throat/Neck No nasal allergies 10/27/2015 Ears/Nose/Throat/Neck No nasal discharge 10/27/2015 Ears/Nose/Throat/Neck No sinus congestion 10/27/2015 Cardiovascular No chest pain/pressure 10/27/2015 Respiratory No productive sputum 10/27/2015 Respiratory No chest congestion 10/27/2015 Respiratory No cough 10/27/2015 Gastrointestinal No constipation 10/27/2015 Gastrointestinal No diarrhea 10/27/2015 Gastrointestinal No nausea 10/27/2015 Gastrointestinal No vomiting 10/27/2015 Genitourinary/Nephrology No dysuria 10/27/2015 Musculoskeletal No joint complaint 10/27/2015 Dermatologic No rash 10/27/2015 Neurologic No alteration of consciousness 10/27/2015 Neurologic No mental status change 10/27/2015 Endocrine diabetes mellitus type 2 10/27/2015 Constitutional No recent illness 10/13/2015 Constitutional obesity 10/13/2015 Constitutional No chills 10/13/2015 Constitutional No diaphoresis 10/13/2015 Constitutional No fever 10/13/2015 Constitutional No insomnia 10/13/2015 Eyes No eye erythema 10/13/2015 Ears/Nose/Throat/Neck No dizziness 10/13/2015 Cardiovascular No chest pain/pressure 10/13/2015 Respiratory No productive sputum 10/13/2015 Respiratory No chest congestion 10/13/2015 Respiratory No cough 10/13/2015 Gastrointestinal No constipation 10/13/2015 Gastrointestinal No diarrhea 10/13/2015 Gastrointestinal No nausea 10/13/2015 Gastrointestinal No vomiting 10/13/2015 Genitourinary/Nephrology No dysuria 10/13/2015 Musculoskeletal No joint complaint 10/13/2015 Dermatologic No rash 10/13/2015 Neurologic No alteration of consciousness 10/13/2015 Neurologic No mental status change 10/13/2015 Ears/Nose/Throat/Neck No nasal allergies 10/13/2015 Ears/Nose/Throat/Neck No nasal discharge 10/13/2015 Ears/Nose/Throat/Neck No sinus congestion 10/13/2015 Endocrine diabetes mellitus type 2 10/13/2015 Constitutional obesity 10/05/2015 Constitutional No chills 10/05/2015 Constitutional No diaphoresis 10/05/2015 Constitutional No fever 10/05/2015 Constitutional No insomnia 10/05/2015 Ears/Nose/Throat/Neck No dizziness 10/05/2015 Ears/Nose/Throat/Neck headache 10/05/2015 Ears/Nose/Throat/Neck nasal allergies 10/05/2015 Ears/Nose/Throat/Neck nasal discharge 10/05/2015 Ears/Nose/Throat/Neck postnasal drip 10/05/2015 Ears/Nose/Throat/Neck sinus congestion 10/05/2015 Cardiovascular No chest pain/pressure 10/05/2015 Cardiovascular dyspnea 10/05/2015 Cardiovascular No fatigue 10/05/2015 Respiratory productive sputum 10/05/2015 Respiratory chest congestion 10/05/2015 Respiratory cough 10/05/2015 Gastrointestinal No constipation 10/05/2015 Gastrointestinal No nausea 10/05/2015 Gastrointestinal No vomiting 10/05/2015 Genitourinary/Nephrology No dysuria 10/05/2015 Dermatologic No rash 10/05/2015 Neurologic No alteration of consciousness 10/05/2015 Constitutional recent illness 10/05/2015 Eyes No eye erythema 10/05/2015 Ears/Nose/Throat/Neck sore throat 10/05/2015 Gastrointestinal No diarrhea 10/05/2015 Musculoskeletal No joint complaint 10/05/2015 Neurologic No mental status change 10/05/2015 Constitutional No night sweats 09/01/2015 Constitutional No recent illness 09/01/2015 Constitutional obesity 09/01/2015 Constitutional No chills 09/01/2015 Constitutional No diaphoresis 09/01/2015 Constitutional No fever 09/01/2015 Constitutional No insomnia 09/01/2015 Eyes No photophobia 09/01/2015 Ears/Nose/Throat/Neck No dizziness 09/01/2015 Ears/Nose/Throat/Neck No headache 09/01/2015 Ears/Nose/Throat/Neck No nasal allergies 09/01/2015 Ears/Nose/Throat/Neck No nasal discharge 09/01/2015 Ears/Nose/Throat/Neck No postnasal drip 09/01/2015 Ears/Nose/Throat/Neck No sinus congestion 09/01/2015 Cardiovascular No chest pain/pressure 09/01/2015 Cardiovascular dyspnea 09/01/2015 Cardiovascular No fatigue 09/01/2015 Respiratory No productive sputum 09/01/2015 Respiratory No chest congestion 09/01/2015 Respiratory No cough 09/01/2015 Gastrointestinal No constipation 09/01/2015 Gastrointestinal No gastroesophageal reflux 09/01/2015 Gastrointestinal No nausea 09/01/2015 Gastrointestinal No vomiting 09/01/2015 Genitourinary/Nephrology No dysuria 09/01/2015 Musculoskeletal No stiffness 09/01/2015 Musculoskeletal No myalgias 09/01/2015 Dermatologic No rash 09/01/2015 Neurologic No alteration of consciousness 09/01/2015 Gastrointestinal diarrhea 09/01/2015 Neurologic No mental status change 09/01/2015 Constitutional fever 08/20/2015 Constitutional No night sweats 08/20/2015 Constitutional No recent illness 08/20/2015 Constitutional obesity 08/20/2015 Constitutional chills 08/20/2015 Constitutional No diaphoresis 08/20/2015 Constitutional No insomnia 08/20/2015 Eyes No photophobia 08/20/2015 Ears/Nose/Throat/Neck No dizziness 08/20/2015 Ears/Nose/Throat/Neck headache 08/20/2015 Ears/Nose/Throat/Neck nasal allergies 08/20/2015 Ears/Nose/Throat/Neck nasal discharge 08/20/2015 Ears/Nose/Throat/Neck postnasal drip 08/20/2015 Ears/Nose/Throat/Neck sinus congestion 08/20/2015 Cardiovascular No chest pain/pressure 08/20/2015 Cardiovascular dyspnea 08/20/2015 Cardiovascular No fatigue 08/20/2015 Respiratory productive sputum 08/20/2015 Respiratory chest congestion 08/20/2015 Respiratory chest tightness 08/20/2015 Respiratory cough 08/20/2015 Gastrointestinal No constipation 08/20/2015 Gastrointestinal diarrhea 08/20/2015 Gastrointestinal No gastroesophageal reflux 08/20/2015 Gastrointestinal No nausea 08/20/2015 Gastrointestinal No vomiting 08/20/2015 Genitourinary/Nephrology No dysuria 08/20/2015 Musculoskeletal No stiffness 08/20/2015 Musculoskeletal No myalgias 08/20/2015 Dermatologic No rash 08/20/2015 Neurologic No alteration of consciousness 08/20/2015 Neurologic No dizziness 08/20/2015 Neurologic No syncope 08/20/2015 Constitutional No night sweats 08/03/2015 Constitutional No recent illness 08/03/2015 Constitutional obesity 08/03/2015 Constitutional weight gain 08/03/2015 Constitutional No chills 08/03/2015 Constitutional No diaphoresis 08/03/2015 Constitutional No fever 08/03/2015 Constitutional No insomnia 08/03/2015 Eyes No photophobia 08/03/2015 Ears/Nose/Throat/Neck No dental pain 08/03/2015 Ears/Nose/Throat/Neck No dizziness 08/03/2015 Ears/Nose/Throat/Neck No dysphagia 08/03/2015 Ears/Nose/Throat/Neck No headache 08/03/2015 Ears/Nose/Throat/Neck No hearing loss 08/03/2015 Ears/Nose/Throat/Neck No nasal allergies 08/03/2015 Ears/Nose/Throat/Neck No nasal discharge 08/03/2015 Ears/Nose/Throat/Neck No postnasal drip 08/03/2015 Ears/Nose/Throat/Neck No sinus congestion 08/03/2015 Ears/Nose/Throat/Neck No sore throat 08/03/2015 Cardiovascular No arrhythmia 08/03/2015 Cardiovascular No chest pain/pressure 08/03/2015 Cardiovascular dyspnea 08/03/2015 Cardiovascular edema 08/03/2015 Cardiovascular No fatigue 08/03/2015 Respiratory No productive sputum 08/03/2015 Respiratory No chest tightness 08/03/2015 Respiratory No cough 08/03/2015 Respiratory snoring 08/03/2015 Respiratory No wheezing 08/03/2015 Respiratory No chest congestion 08/03/2015 Gastrointestinal No hemorrhoids 08/03/2015 Gastrointestinal No abdominal pain 08/03/2015 Gastrointestinal No constipation 08/03/2015 Gastrointestinal No diarrhea 08/03/2015 Gastrointestinal No gastroesophageal reflux 08/03/2015 Gastrointestinal No melena 08/03/2015 Gastrointestinal No nausea 08/03/2015 Gastrointestinal No vomiting 08/03/2015 Genitourinary/Nephrology No dysuria 08/03/2015 Genitourinary/Nephrology No nocturia 08/03/2015 Genitourinary/Nephrology No urinary incontinence 08/03/2015 Musculoskeletal No stiffness 08/03/2015 Musculoskeletal No muscle weakness 08/03/2015 Musculoskeletal No myalgias 08/03/2015 Dermatologic No rash 08/03/2015 Neurologic No dizziness 08/03/2015 Neurologic No headache 08/03/2015 Neurologic No neck pain 08/03/2015 Neurologic No syncope 08/03/2015 Neurologic No alteration of consciousness 08/03/2015 Physical Exam Exam Name System Name Item Name Status Result Effective Dates Notes Full Exam - General 1994 Constitutional general appearance Overall: well developed 12/16/2018 None Full Exam - General 1994 Constitutional general appearance Overall: in no acute distress 12/16/2018 None Full Exam - General 1994 Constitutional general appearance Overall: well nourished 12/16/2018 None Full Exam - General 1994 Eyes conjunctiva/eyelids Overall: conjunctiva clear 12/16/2018 None Full Exam - General 1994 Eyes conjunctiva/eyelids Overall: cornea clear 12/16/2018 None Full Exam - General 1994 Eyes conjunctiva/eyelids Overall: eyelids normal 12/16/2018 None Full Exam - General 1994 Ears/Nose/Throat lips/teeth/gingiva Overall: benign lips 12/16/2018 None Full Exam - General 1994 Ears/Nose/Throat oral cavity/pharynx/larynx Overall: oral mucosa clear 12/16/2018 None Full Exam - General 1994 Respiratory respiratory effort/rhythm Overall: no retractions 12/16/2018 None Full Exam - General 1994 Respiratory respiratory effort/rhythm Overall: normal rate 12/16/2018 None Full Exam - General 1994 Cardiovascular auscultation of heart Overall: regular rate 12/16/2018 None Full Exam - General 1994 Cardiovascular auscultation of heart Overall: normal heart sounds 12/16/2018 None Full Exam - General 1994 Musculoskeletal head and neck Overall: head atraumatic 12/16/2018 None Full Exam - General 1994 Neurologic cranial nerves Overall: crainial nerves 2 - 12 grossly intact 12/16/2018 None Full Exam - General 1994 Psychiatric orientation/consciousness Overall: oriented to person, place and time 12/16/2018 None Full Exam - General 1994 Psychiatric mood and affect Overall: normal mood and affect 12/16/2018 None Full Exam - ENT Constitutional general appearance Overall: well nourished 11/18/2018 None Full Exam - ENT Constitutional general appearance Overall: well developed 11/18/2018 None Full Exam - ENT Constitutional general appearance Overall: in no acute distress 11/18/2018 None Full Exam - ENT Ears/Nose/Throat otoscopic exam Overall: external auditory canals normal 11/18/2018 None Full Exam - ENT Ears/Nose/Throat otoscopic exam Left tympanic membrane: air-fluid level 11/18/2018 None Full Exam - ENT Ears/Nose/Throat otoscopic exam Right tympanic membrane: air-fluid level 11/18/2018 None Full Exam - ENT Ears/Nose/Throat lips/teeth/gingiva Overall: benign lips 11/18/2018 None Full Exam - ENT Ears/Nose/Throat oropharynx Overall: oral mucosa clear 11/18/2018 None Full Exam - ENT Ears/Nose/Throat oropharynx Posterior Pharynx: clear post nasal drainage 11/18/2018 None Full Exam - ENT Ears/Nose/Throat oropharynx Posterior Pharynx: erythema 11/18/2018 None Full Exam - ENT Respiratory inspection Overall: no retractions 11/18/2018 None Full Exam - ENT Respiratory inspection Overall: normal rate 11/18/2018 None Full Exam - ENT Respiratory auscultation Overall: breath sounds clear bilaterally 11/18/2018 None Full Exam - ENT Cardiovascular auscultation of heart Rate: normal rate 11/18/2018 None Full Exam - ENT Cardiovascular auscultation of heart Rhythm: regular rhythm 11/18/2018 None Full Exam - ENT Lymphatic palpation of lymph nodes Overall: anterior cervical chain benign 11/18/2018 None Full Exam - ENT Lymphatic palpation of lymph nodes Overall: posterior cervical chain benign 11/18/2018 None Full Exam - ENT Neurologic mood and affect Overall: normal mood 11/18/2018 None Full Exam - ENT Neurologic mood and affect Overall: normal affect 11/18/2018 None Full Exam - ENT Neurologic orientation Overall: oriented to person, place and time 11/18/2018 None Full Exam - ENT Constitutional general appearance Overall: well nourished 11/01/2018 None Full Exam - ENT Constitutional general appearance Overall: well developed 11/01/2018 None Full Exam - ENT Constitutional general appearance Overall: in no acute distress 11/01/2018 None Full Exam - ENT Ears/Nose/Throat otoscopic exam Overall: external auditory canals normal 11/01/2018 None Full Exam - ENT Ears/Nose/Throat otoscopic exam Left tympanic membrane: air-fluid level 11/01/2018 None Full Exam - ENT Ears/Nose/Throat otoscopic exam Right tympanic membrane: air-fluid level 11/01/2018 None Full Exam - ENT Ears/Nose/Throat lips/teeth/gingiva Overall: benign lips 11/01/2018 None Full Exam - ENT Ears/Nose/Throat oropharynx Overall: oral mucosa clear 11/01/2018 None Full Exam - ENT Ears/Nose/Throat oropharynx Posterior Pharynx: clear post nasal drainage 11/01/2018 None Full Exam - ENT Ears/Nose/Throat oropharynx Posterior Pharynx: erythema 11/01/2018 None Full Exam - ENT Respiratory inspection Overall: no retractions 11/01/2018 None Full Exam - ENT Respiratory inspection Overall: normal rate 11/01/2018 None Full Exam - ENT Respiratory auscultation Overall: breath sounds clear bilaterally 11/01/2018 None Full Exam - ENT Cardiovascular auscultation of heart Rate: normal rate 11/01/2018 None Full Exam - ENT Cardiovascular auscultation of heart Rhythm: regular rhythm 11/01/2018 None Full Exam - ENT Lymphatic palpation of lymph nodes Overall: anterior cervical chain benign 11/01/2018 None Full Exam - ENT Lymphatic palpation of lymph nodes Overall: posterior cervical chain benign 11/01/2018 None Full Exam - ENT Neurologic mood and affect Overall: normal mood 11/01/2018 None Full Exam - ENT Neurologic mood and affect Overall: normal affect 11/01/2018 None Full Exam - ENT Neurologic orientation Overall: oriented to person, place and time 11/01/2018 None Full Exam - General 1995 Constitutional general appearance Overall: well developed 08/06/2018 None Full Exam - General 1995 Constitutional general appearance Overall: in no acute distress 08/06/2018 None Full Exam - General 1994 Constitutional general appearance Overall: well nourished 08/06/2018 None Full Exam - General 1994 Eyes conjunctiva/eyelids Overall: conjunctiva clear 08/06/2018 None Full Exam - General 1994 Eyes conjunctiva/eyelids Overall: cornea clear 08/06/2018 None Full Exam - General 1994 Eyes conjunctiva/eyelids Overall: eyelids normal 08/06/2018 None Full Exam - General 1994 Ears/Nose/Throat lips/teeth/gingiva Overall: benign lips 08/06/2018 None Full Exam - General 1994 Ears/Nose/Throat oral cavity/pharynx/larynx Overall: oral mucosa clear 08/06/2018 None Full Exam - General 1995 Ears/Nose/Throat oral cavity/pharynx/larynx Overall: oropharyngeal mucosa clear 08/06/2018 None Full Exam - General 1994 Respiratory auscultation Overall: breath sounds clear bilaterally 08/06/2018 None Full Exam - General 1994 Respiratory respiratory effort/rhythm Overall: no retractions 08/06/2018 None Full Exam - General 1994 Respiratory respiratory effort/rhythm Overall: normal rate 08/06/2018 None Full Exam - General 1994 Cardiovascular auscultation of heart Overall: regular rate 08/06/2018 None Full Exam - General 1994 Cardiovascular auscultation of heart Overall: normal heart sounds 08/06/2018 None Full Exam - General 1994 Musculoskeletal head and neck Overall: head atraumatic 08/06/2018 None Full Exam - General 1994 Neurologic cranial nerves Overall: crainial nerves 2 - 12 grossly intact 08/06/2018 None Full Exam - General 1994 Psychiatric orientation/consciousness Overall: oriented to person, place and time 08/06/2018 None Full Exam - General 1994 Psychiatric mood and affect Overall: normal mood and affect 08/06/2018 None Full Exam - General 1994 Psychiatric appearance Overall: well-groomed, good eye contact 08/06/2018 None Full Exam - General 1994 Integument inspection of skin Location: right axilla 08/06/2018 healing surgical site Full Exam - Dermatology Constitutional general appearance Overall: well nourished 07/22/2018 None Full Exam - Dermatology Constitutional general appearance Overall: well developed 07/22/2018 None Full Exam - Dermatology Constitutional general appearance Overall: in no acute distress 07/22/2018 None Full Exam - Dermatology Eyes conjunctiva/eyelids Overall: clear conjunctiva bilaterally 07/22/2018 None Full Exam - Dermatology Eyes conjunctiva/eyelids Overall: clear corneas 07/22/2018 None Full Exam - Dermatology Eyes conjunctiva/eyelids Overall: normal eyelids 07/22/2018 None Full Exam - Dermatology Ears/Nose/Throat lips/teeth/gingiva Overall: benign lips 07/22/2018 None Full Exam - Dermatology Ears/Nose/Throat oropharynx Overall: clear oral mucosa 07/22/2018 None Full Exam - Dermatology Respiratory respiratory effort/rhythm Overall: no retractions 07/22/2018 None Full Exam - Dermatology Respiratory respiratory effort/rhythm Overall: normal rate 07/22/2018 None Full Exam - Dermatology Musculoskeletal head and neck Overall: head atraumatic 07/22/2018 None Full Exam - Dermatology Integument insp & palp - chest/axillae Location: on the right axilla 07/22/2018 incision - edges approximated, minimal drainage noted, no erythema or warmth Full Exam - Dermatology Psychiatric orientation Overall: oriented to person, place and time 07/22/2018 None Full Exam - Dermatology Psychiatric mood and affect Overall: normal mood and affect 07/22/2018 None Full Exam - Dermatology Constitutional general appearance Overall: well nourished 07/18/2018 None Full Exam - Dermatology Constitutional general appearance Overall: well developed 07/18/2018 None Full Exam - Dermatology Constitutional general appearance Overall: in no acute distress 07/18/2018 None Full Exam - Dermatology Eyes conjunctiva/eyelids Overall: clear conjunctiva bilaterally 07/18/2018 None Full Exam - Dermatology Eyes conjunctiva/eyelids Overall: clear corneas 07/18/2018 None Full Exam - Dermatology Eyes conjunctiva/eyelids Overall: normal eyelids 07/18/2018 None Full Exam - Dermatology Ears/Nose/Throat lips/teeth/gingiva Overall: benign lips 07/18/2018 None Full Exam - Dermatology Ears/Nose/Throat oropharynx Overall: clear oral mucosa 07/18/2018 None Full Exam - Dermatology Respiratory respiratory effort/rhythm Overall: no retractions 07/18/2018 None Full Exam - Dermatology Respiratory respiratory effort/rhythm Overall: normal rate 07/18/2018 None Full Exam - Dermatology Musculoskeletal head and neck Overall: head atraumatic 07/18/2018 None Full Exam - Dermatology Psychiatric orientation Overall: oriented to person, place and time 07/18/2018 None Full Exam - Dermatology Psychiatric mood and affect Overall: normal mood and affect 07/18/2018 None Full Exam - Dermatology Integument insp & palp - chest/axillae Location: on the right axilla 07/18/2018 incision - edges approximated, minimal drainage noted, no erythema or warmth Full Exam - Dermatology Constitutional general appearance Overall: well nourished 06/28/2018 None Full Exam - Dermatology Constitutional general appearance Overall: well developed 06/28/2018 None Full Exam - Dermatology Constitutional general appearance Overall: in no acute distress 06/28/2018 None Full Exam - Dermatology Eyes conjunctiva/eyelids Overall: clear conjunctiva bilaterally 06/28/2018 None Full Exam - Dermatology Eyes conjunctiva/eyelids Overall: clear corneas 06/28/2018 None Full Exam - Dermatology Eyes conjunctiva/eyelids Overall: normal eyelids 06/28/2018 None Full Exam [...] 06/17/2018 None Full Exam - Dermatology Eyes conjunctiva/eyelids Overall: clear conjunctiva bilaterally 06/17/2018 None Full Exam - Dermatology Eyes conjunctiva/eyelids Overall: clear corneas 06/17/2018 None Full Exam - Dermatology Eyes conjunctiva/eyelids Overall: normal eyelids 06/17/2018 None Full Exam [...] 06/05/2018 None Full Exam - Dermatology Eyes conjunctiva/eyelids Overall: clear conjunctiva bilaterally 06/05/2018 None Full Exam - Dermatology Eyes conjunctiva/eyelids Overall: clear corneas 06/05/2018 None Full Exam - Dermatology Eyes conjunctiva/eyelids Overall: normal eyelids 06/05/2018 None Full Exam [...] None Full Exam - General 1994 Eyes conjunctiva/eyelids Overall: conjunctiva clear 03/26/2018 None Full Exam - General 1994 Eyes conjunctiva/eyelids Overall: cornea clear 03/26/2018 None Full Exam - General 1994 Eyes conjunctiva/eyelids Overall: eyelids normal 03/26/2018 None Full Exam [...] 03/14/2018 None Full Exam - Dermatology Eyes conjunctiva/eyelids Overall: normal eyelids 03/14/2018 None Full Exam - Dermatology Eyes conjunctiva/eyelids Overall: clear corneas 03/14/2018 None Full Exam - Dermatology Eyes conjunctiva/eyelids Overall: clear conjunctiva bilaterally 03/14/2018 None Full [...] None Full Exam - General 1994 Eyes conjunctiva/eyelids Overall: conjunctiva clear 03/07/2018 None Full Exam - General 1994 Eyes conjunctiva/eyelids Overall: eyelids normal 03/07/2018 None Full Exam - General 1994 Ears/Nose/Throat otoscopic exam Overall: external auditory canals clear 03/07/2018 None Full Exam - General 1994 Ears/Nose/Throat lips/teeth/gingiva Overall: benign lips 03/07/2018 None Full Exam - General 1995 [...] None Full Exam - General 1994 Eyes conjunctiva/eyelids Overall: cornea clear 03/07/2018 None Full Exam [...] None Full Exam - General 1994 Eyes conjunctiva/eyelids Overall: conjunctiva clear 02/19/2018 None Full Exam - General 1994 Eyes conjunctiva/eyelids Overall: eyelids normal 02/19/2018 None Full Exam - General 1994 Ears/Nose/Throat otoscopic exam Overall: external auditory canals clear 02/19/2018 None Full Exam - General 1994 Ears/Nose/Throat otoscopic exam Tympanic membrane: air-fluid level 02/19/2018 None Full Exam - General [...] None Full Exam - General 1994 Eyes conjunctiva/eyelids Overall: conjunctiva clear 01/08/2018 None Full Exam - General 1994 Eyes conjunctiva/eyelids Overall: cornea clear 01/08/2018 None Full Exam - General 1994 Eyes conjunctiva/eyelids Overall: eyelids normal 01/08/2018 None Full Exam [...] 11/23/2017 None Full Exam - Orthopedics Eyes conjunctiva/eyelids Overall: conjunctiva clear 11/23/2017 None Full Exam - Orthopedics Eyes conjunctiva/eyelids Overall: eyelids normal 11/23/2017 None Full Exam [...] 09/05/2017 None Full Exam - ENT Ears/Nose/Throat lips/teeth/gingiva Overall: benign lips 09/05/2017 None Full Exam - ENT Ears/Nose/Throat oropharynx Overall: oral mucosa clear 09/05/2017 None Full Exam - ENT Ears/Nose/Throat oropharynx Posterior Pharynx: clear post nasal drainage 09/05/2017 None Full Exam - ENT Ears/Nose/Throat oropharynx Posterior Pharynx: erythema 09/05/2017 None Full Exam - ENT Respiratory inspection Overall: no retractions 09/05/2017 None Full Exam - ENT Respiratory inspection Overall: normal rate 09/05/2017 None Full Exam - ENT Respiratory auscultation Diffuse: diminished 09/05/2017 None Full Exam - ENT Respiratory auscultation [...] ENT Ears/Nose/Throat otoscopic exam Left tympanic membrane: air-fluid level 09/05/2017 None Full [...] 06/07/2017 None Full Exam - Orthopedics Eyes conjunctiva/eyelids Overall: conjunctiva clear 06/07/2017 None Full Exam - Orthopedics Eyes conjunctiva/eyelids Overall: cornea clear 06/07/2017 None Full Exam - Orthopedics Eyes conjunctiva/eyelids Overall: eyelids normal 06/07/2017 None Full Exam [...] 04/24/2017 None Full Exam - Orthopedics Eyes conjunctiva/eyelids Overall: conjunctiva clear 04/24/2017 None Full Exam - Orthopedics Eyes conjunctiva/eyelids Overall: eyelids normal 04/24/2017 None Full Exam [...] 01/09/2017 None Full Exam - ENT Ears/Nose/Throat lips/teeth/gingiva Overall: benign lips 01/09/2017 None Full Exam - ENT Ears/Nose/Throat oropharynx Overall: oral mucosa clear 01/09/2017 None Full Exam - ENT Ears/Nose/Throat oropharynx Posterior Pharynx: clear post nasal drainage 01/09/2017 None Full Exam - ENT Ears/Nose/Throat oropharynx Posterior Pharynx: erythema 01/09/2017 None Full Exam - ENT Respiratory auscultation Overall: breath sounds clear bilaterally 01/09/2017 None Full Exam - ENT Respiratory auscultation Diffuse: diminished 01/09/2017 None Full Exam - ENT Respiratory inspection Overall: no retractions 01/09/2017 None Full Exam - ENT Respiratory inspection Overall: normal rate 01/09/2017 None Full Exam - ENT [...] None Full Exam - General 1994 Eyes conjunctiva/eyelids Overall: conjunctiva clear 10/30/2016 None Full Exam - General 1994 Eyes conjunctiva/eyelids Overall: eyelids normal 10/30/2016 None Full Exam [...] None Full Exam - General 1994 Eyes conjunctiva/eyelids Overall: conjunctiva clear 10/09/2016 None Full Exam - General 1994 Eyes conjunctiva/eyelids Overall: eyelids normal 10/09/2016 None Full Exam [...] None Full Exam - General 1994 Eyes conjunctiva/eyelids Overall: conjunctiva clear 09/12/2016 None Full Exam [...] None Full Exam - General 1994 Eyes conjunctiva/eyelids Overall: conjunctiva clear 09/05/2016 None Full Exam [...] 06/16/2016 None Full Exam - ENT Ears/Nose/Throat lips/teeth/gingiva Overall: benign lips 06/16/2016 None Full Exam - ENT Ears/Nose/Throat oropharynx Overall: oral mucosa clear 06/16/2016 None Full Exam - ENT Ears/Nose/Throat oropharynx Posterior Pharynx: clear post nasal drainage 06/16/2016 None Full Exam - ENT Ears/Nose/Throat oropharynx Posterior Pharynx: erythema 06/16/2016 None Full Exam - ENT Respiratory inspection Overall: no retractions 06/16/2016 None Full Exam - ENT Respiratory inspection Overall: normal rate 06/16/2016 None Full Exam - [...] Exam - ENT Respiratory auscultation Diffuse: diminished 06/16/2016 None Full Exam - ENT Respiratory auscultation Right lower lung field: expiratory wheezes 06/16/2016 None Full Exam - General 1994 Constitutional general appearance Overall: well developed 06/13/2016 None Full Exam - General 1994 Constitutional general appearance Overall: in no acute distress 06/13/2016 None Full Exam - General 1994 Constitutional general appearance Overall: well nourished 06/13/2016 None Full Exam - General 1994 Eyes conjunctiva/eyelids Overall: conjunctiva clear 06/13/2016 None Full Exam - General 1994 Eyes conjunctiva/eyelids Overall: cornea clear 06/13/2016 None Full Exam - General 1994 Eyes conjunctiva/eyelids Overall: eyelids normal 06/13/2016 None Full Exam [...] None Full Exam - General 1994 Eyes conjunctiva/eyelids Overall: conjunctiva clear 05/19/2016 None Full Exam - General 1994 Eyes conjunctiva/eyelids Overall: cornea clear 05/19/2016 None Full Exam - General 1994 Eyes conjunctiva/eyelids Overall: eyelids normal 05/19/2016 None Full Exam [...] None Full Exam - General 1994 Eyes conjunctiva/eyelids Overall: conjunctiva clear 05/08/2016 None Full Exam - General 1994 Eyes conjunctiva/eyelids Overall: cornea clear 05/08/2016 None Full Exam - General 1994 Eyes conjunctiva/eyelids Overall: eyelids normal 05/08/2016 None Full Exam [...] None Full Exam - General 1994 Eyes conjunctiva/eyelids Overall: conjunctiva clear 05/05/2016 None Full Exam - General 1994 Eyes conjunctiva/eyelids Overall: eyelids normal 05/05/2016 None Full Exam [...] None Full Exam - General 1994 Eyes conjunctiva/eyelids Overall: conjunctiva clear 04/10/2016 None Full Exam - General 1994 Eyes conjunctiva/eyelids Overall: cornea clear 04/10/2016 None Full Exam - General 1994 Eyes conjunctiva/eyelids Overall: eyelids normal 04/10/2016 None Full Exam [...] None Full Exam - General 1994 Eyes conjunctiva/eyelids Overall: conjunctiva clear 04/06/2016 None Full Exam - General 1994 Eyes conjunctiva/eyelids Overall: eyelids normal 04/06/2016 None Full Exam [...] None Full Exam - General 1994 Eyes conjunctiva/eyelids Overall: conjunctiva clear 03/08/2016 None Full Exam - General 1994 Eyes conjunctiva/eyelids Overall: cornea clear 03/08/2016 None Full Exam - General 1994 Eyes conjunctiva/eyelids Overall: eyelids normal 03/08/2016 None Full Exam - General 1994 Ears/Nose/Throat otoscopic exam Overall: external auditory canals clear 03/08/2016 None Full Exam - General 1994 Ears/Nose/Throat otoscopic exam Tympanic membrane: air-fluid level 03/08/2016 None Full Exam - General [...] None Full Exam - General 1994 Eyes conjunctiva/eyelids Overall: conjunctiva clear 02/28/2016 None Full Exam - General 1994 Eyes conjunctiva/eyelids Overall: cornea clear 02/28/2016 None Full Exam - General 1994 Eyes conjunctiva/eyelids Overall: eyelids normal 02/28/2016 None Full Exam [...] General 1994 Ears/Nose/Throat otoscopic exam Tympanic membrane: air-fluid level 02/28/2016 None Full Exam - General 1994 Lymphatic axilla/arm nodes Axillary: Left number of palpable nodes: 1 02/28/2016 in the left upper, inner arm Full Exam - General 1994 Lymphatic axilla/arm nodes Axillary: Left size (cm): 1 - 1.5cm 02/28/2016 None Full Exam - General 1994 Lymphatic axilla/arm nodes Axillary: tender 02/28/2016 None Full Exam - General 1994 Lymphatic axilla/arm nodes Axillary: firm 02/28/2016 None Full Exam - General 1994 Constitutional general appearance Overall: well developed 01/18/2016 None Full Exam - General 1994 Constitutional general appearance Overall: in no acute distress 01/18/2016 None Full Exam - General 1994 Constitutional general appearance Overall: well nourished 01/18/2016 None Full Exam - General 1994 Eyes conjunctiva/eyelids Overall: conjunctiva clear 01/18/2016 None Full Exam - General 1994 Eyes conjunctiva/eyelids Overall: cornea clear 01/18/2016 None Full Exam - General 1994 Eyes conjunctiva/eyelids Overall: eyelids normal 01/18/2016 None Full Exam [...] None Full Exam - General 1994 Eyes conjunctiva/eyelids Overall: conjunctiva clear 12/23/2015 None Full Exam - General 1994 Eyes conjunctiva/eyelids Overall: cornea clear 12/23/2015 None Full Exam - General 1994 Eyes conjunctiva/eyelids Overall: eyelids normal 12/23/2015 None Full Exam [...] Chest/Breast breast and axillae palpation Overall: breasts non- tender 12/23/2015 None Full Exam - General 1994 Chest/Breast breast and axillae palpation Overall: no nipple discharge 12/23/2015 None Full Exam - General 1994 Chest/Breast breast and axillae palpation Overall: axillae non- tender 12/23/2015 None Full Exam - General 1994 [...] None Full Exam - General 1994 Eyes conjunctiva/eyelids Overall: conjunctiva clear 12/16/2015 None Full Exam - General 1994 Eyes conjunctiva/eyelids Overall: cornea clear 12/16/2015 None Full Exam - General 1994 Eyes conjunctiva/eyelids Overall: eyelids normal 12/16/2015 None Full Exam [...] None Full Exam - General 1994 Eyes conjunctiva/eyelids Overall: conjunctiva clear 11/11/2015 None Full Exam - General 1994 Eyes conjunctiva/eyelids Overall: cornea clear 11/11/2015 None Full Exam - General 1994 Eyes conjunctiva/eyelids Overall: eyelids normal 11/11/2015 None Full Exam [...] None Full Exam - General 1994 Eyes conjunctiva/eyelids Overall: conjunctiva clear 10/27/2015 None Full Exam - General 1994 Eyes conjunctiva/eyelids Overall: cornea clear 10/27/2015 None Full Exam - General 1994 Eyes conjunctiva/eyelids Overall: eyelids normal 10/27/2015 None Full Exam [...] None Full Exam - General 1994 Eyes conjunctiva/eyelids Overall: conjunctiva clear 10/13/2015 None Full Exam - General 1994 Eyes conjunctiva/eyelids Overall: cornea clear 10/13/2015 None Full Exam - General 1994 Eyes conjunctiva/eyelids Overall: eyelids normal 10/13/2015 None Full Exam [...] None Full Exam - General 1994 Eyes conjunctiva/eyelids Overall: conjunctiva clear 10/05/2015 None Full Exam - General 1994 Eyes conjunctiva/eyelids Overall: cornea clear 10/05/2015 None Full Exam - General 1994 Eyes conjunctiva/eyelids Overall: eyelids normal 10/05/2015 None Full Exam - General 1994 Eyes pupils and irises Overall: pupils equal, round, reactive to light and accomodation 10/05/2015 None Full Exam - General 1994 Ears/Nose/Throat otoscopic exam Overall: external auditory canals clear 10/05/2015 None Full Exam - General 1994 Ears/Nose/Throat otoscopic exam Tympanic membrane: air-fluid level 10/05/2015 None Full Exam - General [...] None Full Exam - General 1994 Eyes conjunctiva/eyelids Overall: conjunctiva clear 09/01/2015 None Full Exam - General 1994 Eyes conjunctiva/eyelids Overall: cornea clear 09/01/2015 None Full Exam - General 1994 Eyes conjunctiva/eyelids Overall: eyelids normal 09/01/2015 None Full Exam [...] None Full Exam - General 1994 Eyes conjunctiva/eyelids Overall: conjunctiva clear 08/20/2015 None Full Exam - General 1994 Eyes conjunctiva/eyelids Overall: cornea clear 08/20/2015 None Full Exam - General 1994 Eyes conjunctiva/eyelids Overall: eyelids normal 08/20/2015 None Full Exam [...] General 1994 Ears/Nose/Throat otoscopic exam Tympanic membrane: air-fluid level 08/20/2015 None Full Exam - General [...] None Full Exam - General 1994 Eyes conjunctiva/eyelids Overall: conjunctiva clear 08/03/2015 None Full Exam - General 1994 Eyes conjunctiva/eyelids Overall: cornea clear 08/03/2015 None Full Exam - General 1994 Eyes conjunctiva/eyelids Overall: eyelids normal 08/03/2015 None Full Exam [...] Cardiovascular extremities Edema present: severity 1+ - 4+: trace to 1+ 08/03/2015 None Procedures Procedure Codes Date THER/PROPH/DIAG INJ SC/IM CPT-4: 12629 11/01/2018 TRIAMCINOLONE ACET INJ NOS CPT-4: J3301 11/01/2018 THER/PROPH/DIAG INJ SC/IM CPT-4: 73042 06/05/2018 ROCEPHIN, PER 250 MG CPT- 4: J0696 06/05/2018 REMOVAL OF SKIN TAGS <W/15 CPT-4: 80385 03/14/2018 FLU VAC NO PRSV 4 PRECIOUS 3 YRS+ CPT-4: 63060 03/14/2018 IMMUNIZATION ADMIN CPT- 4: 89157 03/14/2018 TRIAMCINOLONE ACET INJ NOS CPT-4: J3301 02/19/2018 THER/PROPH/DIAG INJ SC/IM CPT-4: 91960 02/19/2018 THER/PROPH/DIAG INJ SC/IM CPT-4: 03168 09/05/2017 TRIAMCINOLONE ACET INJ NOS CPT-4: J3301 09/05/2017 IMMUNIZATION ADMIN CPT- 4: 69749 04/24/2017 FLU VAC NO PRSV 4 PRECIOUS 3 YRS+ CPT-4: 53174 04/24/2017 DRAIN/INJECT JOINT/BURSA CPT-4: 27263 04/24/2017 TRIAMCINOLONE ACET INJ NOS CPT-4: J3301 04/24/2017 THER/PROPH/DIAG INJ SC/IM CPT-4: 92163 01/09/2017 TRIAMCINOLONE ACET INJ NOS CPT-4: J3301 01/09/2017 THER/PROPH/DIAG INJ SC/IM CPT-4: 93107 04/13/2016 Pneumococcal Polysaccharide Vaccine, 23-Valent, Ad CPT-4: 26972 04/13/2016 INJECT TRIGGER POINTS 3/> CPT-4: 96182 04/06/2016 TRIAMCINOLONE ACET INJ NOS CPT-4: J3301 04/06/2016 IMMUNIZATION ADMIN CPT- 4: 07007 03/30/2016 IIV4 FLU VACC NO PRESERV ID SNOMED CT: [id number] CPT-4: 43253 03/30/2016 TRIAMCINOLONE ACET INJ NOS CPT-4: J3301 02/28/2016 THER/PROPH/DIAG INJ SC/IM CPT-4: 49574 02/28/2016 TRIAMCINOLONE ACET INJ NOS CPT-4: J3301 08/20/2015 Vital Signs Date Vital 12/16/2018 Blood Pressure 1: 136/74 Code: 8480-6 BMI: 41.4 Code: 07264-5 Heart Rate 1: 102 bpm Height: 4'11" SpO2: 95% Weight: 205 lbs 11/18/2018 Blood Pressure 1: 120/72 Code: 8480-6 BMI: 41.6 Code: 61381-0 Heart Rate 1: 97 bpm Height: 4'11" SpO2: 96% Weight: 206 lbs 11/01/2018 Blood Pressure 1: 134/70 Code: 8480-6 BMI: 43.0 Code: 11669-0 Heart Rate 1: 110 bpm Height: 4'11" SpO2: 97% Temperature: 37.3 (C) / 99.1 (F) Weight: 213 lbs 08/06/2018 Blood Pressure 1: 130/80 Code: 8480-6 BMI: 42.8 Code: 41369-0 Heart Rate 1: 110 bpm Height: 4'11" SpO2: 98% Weight: 212 lbs 07/22/2018 Blood Pressure 1: 140/78 Code: 8480-6 Heart Rate 1: 120 bpm Height: SpO2: 98% Weight: 07/18/2018 Blood Pressure 1: 136/74 Code: 8480-6 Heart Rate 1: 90 bpm Height: 4'11" SpO2: 98% Weight: 06/28/2018 Blood Pressure 1: 122/76 Code: 8480-6 Heart Rate 1: 107 bpm SpO2: 95% Weight: 214 lbs 06/17/2018 Blood Pressure 1: 12874 Code: 8480-6 Heart Rate 1: 112 bpm Height: 4'11" SpO2: 97% Temperature: 36.9 (C) / 98.4 (F) Weight: 06/05/2018 Blood Pressure 1: 12774 Code: 8480-6 BMI: 42.4 Code: 99611-6 Heart Rate 1: 78 bpm Height: 4'11" SpO2: 97% Weight: 210 lbs 03/26/2018 Blood Pressure 1: 128/74 Code: 8480-6 BMI: 43.0 Code: 60470-9 Heart Rate 1: 120 bpm Height: 4'11" SpO2: 97% Weight: 213 lbs 03/14/2018 Blood Pressure 1: 120/74 Code: 8480-6 BMI: 43.0 Code: 15810-1 Heart Rate 1: 114 bpm Height: 4'11" SpO2: 95% Weight: 213 lbs 03/07/2018 Blood Pressure 1: 132/74 Code: 8480-6 BMI: 43.8 Code: 78508-4 Heart Rate 1: 123 bpm Height: 4'11" SpO2: 94% Weight: 217 lbs 02/19/2018 Blood Pressure 1: 140/76 Code: 8480-6 Heart Rate 1: 109 bpm Height: 4'11" SpO2: 94% Temperature: 36.9 (C) / 98.4 (F) Weight: 01/08/2018 Blood Pressure 1: 134/80 Code: 8480-6 Heart Rate 1: 107 bpm Height: SpO2: 98% Weight: 11/23/2017 Blood Pressure 1: 130/78 Code: 8480-6 Heart Rate 1: 90 bpm Height: SpO2: 98% Weight: 09/05/2017 Blood Pressure 1: 134/86 Code: 8480-6 BMI: 45.4 Code: 76539-2 Heart Rate 1: 108 bpm Height: 4'11" SpO2: 95% Weight: 225 lbs 06/07/2017 Blood Pressure 1: 132/74 Code: 8480-6 Heart Rate 1: 99 bpm Height: 4'11" SpO2: 95% 04/24/2017 Blood Pressure 1: 1328096 Code: 8480-6 BMI: 47.7 Code: 68625-1 Heart Rate 1: 96 bpm Height: 4'11" Weight: 236 lbs 01/09/2017 Blood Pressure 1: 122/74 Code: 8480-6 BMI: 46.0 Code: 22063-4 Heart Rate 1: 114 bpm Height: 4'11" SpO2: 98% Temperature: 37.1 (C) / 98.7 (F) Weight: 228 lbs 10/30/2016 Blood Pressure 1: 124/78 Code: 8480-6 BMI: 49.1 Code: 51707-8 Heart Rate 1: 90 bpm Height: 4'11" SpO2: 97% Weight: 243 lbs 10/09/2016 Blood Pressure 1: 124/80 Code: 8480-6 BMI: 49.3 Code: 87710-8 Heart Rate 1: 91 bpm Height: 4'11" SpO2: 98% Weight: 244 lbs 09/12/2016 Blood Pressure 1: 128/80 Code: 8480-6 BMI: 49.1 Code: 96352-8 Heart Rate 1: 94 bpm Height: 4'11" SpO2: 95% Weight: 243 lbs 09/05/2016 Blood Pressure 1: 118/74 Code: 8480-6 BMI: 49.1 Code: 62237-0 Heart Rate 1: 100 bpm Height: 4'11" SpO2: 97% Weight: 243 lbs 06/16/2016 Blood Pressure 1: 120/62 Code: 8480-6 BMI: 49.1 Code: 54003-5 Heart Rate 1: 100 bpm Height: 4'11" SpO2: 96% Temperature: 36.7 (C) / 98.0 (F) Weight: 243 lbs 06/13/2016 Blood Pressure 1: 120/70 Code: 8480-6 Heart Rate 1: 117 bpm SpO2: 97% 05/19/2016 Blood Pressure 1: 130/64 Code: 8480-6 BMI: 49.1 Code: 39287-9 Heart Rate 1: 101 bpm Height: 4'11" SpO2: 96% Weight: 243 lbs 05/08/2016 Blood Pressure 1: 128/76 Code: 8480-6 Heart Rate 1: 119 bpm Height: SpO2: 97% Weight: 05/05/2016 Blood Pressure 1: 12476 Code: 8480-6 BMI: 49.1 Code: 48436-7 Heart Rate 1: 75 bpm Height: 4'11" SpO2: 99% Weight: 243 lbs 04/10/2016 Blood Pressure 1: 140/80 Code: 8480-6 BMI: 49.7 Code: 22676-2 Heart Rate 1: 88 bpm Height: 4'11" SpO2: 95% Weight: 246 lbs 04/06/2016 Blood Pressure 1: 134/82 Code: 8480-6 BMI: 75.1 Code: 81897-6 Heart Rate 1: 72 bpm Height: 4' SpO2: 96% Weight: 246 lbs 03/08/2016 Blood Pressure 1: 126/72 Code: 8480-6 BMI: 49.7 Code: 02044-5 Heart Rate 1: 89 bpm Height: 4'11" SpO2: 97% Weight: 246 lbs 02/28/2016 Blood Pressure 1: 124/68 Code: 8480-6 BMI: 49.7 Code: 52418-3 Heart Rate 1: 89 bpm Height: 4'11" SpO2: 96% Weight: 246 lbs 01/18/2016 Blood Pressure 1: 142/78 Code: 8480-6 BMI: 48.9 Code: 81344-2 Heart Rate 1: 97 bpm Height: 4'11" SpO2: 97% Weight: 242 lbs 12/23/2015 Blood Pressure 1: 124/74 Code: 8480-6 BMI: 48.9 Code: 24365-2 Heart Rate 1: 106 bpm Height: 4'11" SpO2: 96% Weight: 242 lbs 12/16/2015 Blood Pressure 1: 116/82 Code: 8480-6 BMI: 48.3 Code: 28922-0 Heart Rate 1: 111 bpm Height: 4'11" SpO2: 97% Weight: 239 lbs 11/11/2015 Blood Pressure 1: 130/80 Code: 8480-6 BMI: 49.7 Code: 76929-4 Heart Rate 1: 105 bpm Height: 4'11" SpO2: 96% Weight: 246 lbs 10/27/2015 Blood Pressure 1: 122/70 Code: 8480-6 BMI: 49.5 Code: 19189-2 Heart Rate 1: 107 bpm Height: 4'11" SpO2: 96% Weight: 245 lbs 10/13/2015 Blood Pressure 1: 140/82 Code: 8480-6 BMI: 50.9 Code: 69880-4 Heart Rate 1: 111 bpm Height: 4'11" SpO2: 96% Weight: 252 lbs 10/05/2015 Blood Pressure 1: 118/70 Code: 8480-6 BMI: 51.1 Code: 47665-5 Heart Rate 1: 120 bpm Height: 4'11" SpO2: 97% Weight: 253 lbs 09/01/2015 Blood Pressure 1: 132/82 Code: 8480-6 BMI: 50.1 Code: 32572-6 Heart Rate 1: 110 bpm Height: 4'11" SpO2: 96% Weight: 248 lbs 08/20/2015 Blood Pressure 1: 132/78 Code: 8480-6 BMI: 51.7 Code: 93319-9 Heart Rate 1: 100 bpm Height: 4'11" Weight: 256 lbs 08/03/2015 Blood Pressure 1: 148/92 Code: 8480-6 BMI: 52.1 Code: 69875-2 Heart Rate 1: 100 bpm Height: 4'11" SpO2: 97% Weight: 258 lbs Functional Status No Functional Status data History of Present Illness Symptom Name Status Result Effective Date Notes Quality burning 12/16/2018 None Quality aching 12/16/2018 None Quality constant 12/16/2018 None Onset and Resolution sudden in onset 12/16/2018 None Onset of Symptom 4 days ago 12/16/2018 None Location in the throat 11/18/2018 None Quality constant 11/18/2018 None Quality dry 11/18/2018 None Onset and Resolution gradual in onset 11/18/2018 None Onset of Symptom 2 weeks ago 11/18/2018 None Frequency of Episodes daily 11/18/2018 None Location diffusely 11/18/2018 None Quality aching 11/18/2018 None Quality constant 11/18/2018 None Onset and Resolution gradual in onset 11/18/2018 None Onset of Symptom 2 weeks ago 11/18/2018 None Frequency of Episodes daily 11/18/2018 None Location in the throat 11/01/2018 None Quality constant 11/01/2018 None Quality dry 11/01/2018 None Onset and Resolution gradual in onset 11/01/2018 None Onset of Symptom 2 weeks ago 11/01/2018 None Frequency of Episodes daily 11/01/2018 None Location diffusely 11/01/2018 None Quality aching 11/01/2018 None Quality constant 11/01/2018 None Onset and Resolution gradual in onset 11/01/2018 None Onset of Symptom 2 weeks ago 11/01/2018 None Frequency of Episodes daily 11/01/2018 None Quality acute 08/06/2018 None Quality intermittent 08/06/2018 None Onset and Resolution gradual in onset 08/06/2018 None Onset and Resolution ongoing 08/06/2018 None Pertinent Findings Denies dyspnea 08/06/2018 None Procedure Performed an excision of cyst 07/22/2018 None General Recovery well 07/22/2018 None Pertinent Findings pain 07/22/2018 None Pertinent Findings Denies fever 07/22/2018 None Pertinent Findings Denies hematoma 07/22/2018 None Pertinent Findings Denies excess swelling 07/22/2018 None Pertinent Findings Denies redness around the incision site 07/22/2018 None Procedure Performed an excision of _ 07/18/2018 cyst - right axilla General Recovery well 07/18/2018 None Pertinent Findings Denies fever 07/18/2018 None Pertinent Findings pain 07/18/2018 None Quality acute 06/28/2018 None Quality improving 06/28/2018 None Location axilla 06/28/2018 right Pertinent Findings fever 06/28/2018 None Onset [...] 2.5 weeks ago 06/17/2018 None Location axilla 06/17/2018 right Quality acute 06/17/2018 None Quality improving 06/17/2018 None Pertinent Findings fever 06/17/2018 None Onset and Resolution sudden in onset 06/05/2018 None Onset of Symptom 1 weeks ago 06/05/2018 None Location axilla 06/05/2018 right chest congestion Quality constant 03/26/2018 None chest congestion Quality thick secretions 03/26/2018 None chest congestion Onset and Resolution ongoing 03/26/2018 None chest congestion Pertinent Findings cough 03/26/2018 None chest congestion Pertinent Findings decreased energy 03/26/2018 None chest congestion Pertinent Findings sputum production 03/26/2018 None cough Location in the throat 03/14/2018 None cough Quality constant 03/14/2018 None cough Quality dry 03/14/2018 None cough Onset and Resolution ongoing 03/14/2018 None cough Frequency of Episodes daily 03/14/2018 None acrochordon (skin tags) Location in the left axilla 03/14/2018 None acrochordon (skin tags) Location on the left leg 03/14/2018 None acrochordon (skin tags) Location on the trunk 03/14/2018 None acrochordon (skin tags) Onset and Resolution ongoing 03/14/2018 None cough Quality constant 03/07/2018 None cough Quality dry 03/07/2018 None cough Onset and Resolution ongoing 03/07/2018 [...] lower leg 01/08/2018 None rash Quality acute 01/08/2018 None rash Color erythematous 01/08/2018 None rash [...] blood glucose at home, see scanned readings 05/19/2016 None diabetes mellitus Glucose monitoring before meals [...] blood glucose at home, see scanned readings 05/05/2016 None diabetes mellitus Blood glucose levels greater [...] blood glucose at home, see scanned readings 12/16/2015 None diabetes mellitus Glucose monitoring twice daily [...] Codes Date EST. PATIENT, LEVEL III Diagnosis: Dysuria[ICD10: R30.0] Gloria Hess MD, [facility] CPT-4: 80441 12/16/2018 92548 EST. PATIENT, LEVEL III Diagnosis: Other allergic rhinitis[ICD10: J30.89] Diagnosis: Simple chronic bronchitis[ICD10: J41.0] Gloria Hess MD, [facility] CPT-4: 62544 11/18/2018 13390 EST. PATIENT, LEVEL III Diagnosis: Acute laryngopharyngitis[ICD10: J06.0] Diagnosis: Other allergic rhinitis[ICD10: J30.89] Gloria Hess MD, [facility] CPT- 4: 00101 11/01/2018 30036 EST. PATIENT, LEVEL III Diagnosis: Essential (primary) hypertension[ICD10: I10] Gloria Hess MD, [facility] CPT-4: 92434 08/06/2018 80357 EST. PATIENT, LEVEL III Diagnosis: Hidradenitis suppurativa[ICD10: L73.2] Gloria Hess MD, [facility] CPT- 4: 45935 07/22/2018 [id number] EST. PATIENT, LEVEL III Diagnosis: Hidradenitis suppurativa[ICD10: L73.2] Diagnosis: Encounter for other specified surgical aftercare[ICD10: Z48.89] Gloria Hess MD, [facility] CPT-4: 31216 07/18/2018 60422 EST. PATIENT, LEVEL III Diagnosis: Cellulitis of right axilla[ICD10: L03.111] Diagnosis: Diarrhea, unspecified[ICD10: R19.7] Gloria Hess MD, [facility] CPT- 4: 65159 06/28/2018 ([id number]) 75295 EST. PATIENT, LEVEL II Diagnosis: Cellulitis of right axilla[ICD10: L03.111] Tamy Hess MD, [facility] CPT-4: 55760 06/17/2018 92843 EST. PATIENT, LEVEL III Diagnosis: Cellulitis of right axilla[ICD10: L03.111] Diagnosis: Type 2 diabetes mellitus with hyperglycemia[ICD10: E11.65] Gloria Hess MD, [facility] CPT-4: 90869 06/05/2018 42574 EST. PATIENT, LEVEL III Diagnosis: Gastro-esophageal reflux disease without esophagitis[ICD10: K21.9] Diagnosis: Other allergic rhinitis[ICD10: J30.89] Diagnosis: Cough[ICD10: R05] Gloria Hess MD, [facility] CPT-4: 32148 03/26/2018 ([id number]) 30130 EST. PATIENT, LEVEL III Diagnosis: Cough[ICD10: R05] Gloria Hess MD, [facility] CPT-4: 15112 03/14/2018 94096 EST. PATIENT, LEVEL IV Diagnosis: Acute laryngopharyngitis[ICD10: J06.0] Diagnosis: Other allergic rhinitis[ICD10: J30.89] Diagnosis: Cough[ICD10: R05] Gloria Hess MD, [facility] CPT-4: 77897 03/07/2018 35749 EST. PATIENT, LEVEL IV Diagnosis: Acute bronchitis due to other specified organisms[ICD10: J20.8] Diagnosis: Acute laryngopharyngitis[ICD10: J06.0] Gloria Hess MD, [facility] CPT- 4: 25865 02/19/2018 27564 EST. PATIENT, LEVEL IV Diagnosis: Candidiasis of vulva and vagina[ICD10: B37.3] Diagnosis: Rash and other nonspecific skin eruption[ICD10: R21] Gloria Hess MD, [facility] CPT-4: 30481 01/08/2018 45119 EST. PATIENT, LEVEL III Diagnosis: Sacrococcygeal disorders, not elsewhere classified[ICD10: M53.3] Diagnosis: Low back pain[ICD10: M54.5] Gloria Hess MD, [facility] CPT-4: 18788 11/23/2017 13167 EST. PATIENT, LEVEL III Diagnosis: Acute laryngopharyngitis[ICD10: J06.0] Diagnosis: Other allergic rhinitis[ICD10: J30.89] Diagnosis: Acute bronchitis due to other specified organisms[ICD10: J20.8] Gloria Hess MD, [facility] CPT-4: 14701 09/05/2017 33470 EST. PATIENT, LEVEL III Diagnosis: Pain in left foot[ICD10: M79.672] Diagnosis: Rash and other nonspecific skin eruption[ICD10: R21] Diagnosis: Candidiasis of vulva and vagina[ICD10: B37.3] Diagnosis: Localized edema[ICD10: R60.0] Diagnosis: Dyspnea, unspecified[ICD10: R06.00] Gloria Hess MD, [facility] CPT- 4: 40698 06/07/2017 22214 EST. PATIENT, LEVEL III Diagnosis: Low back pain[ICD10: M54.5] Diagnosis: Sacroiliitis, not elsewhere classified[ICD10: M46.1] Diagnosis: Pain in left foot[ICD10: M79.672] Diagnosis: VACCIN FOR INFLUENZA[ICD10: Z23] Gloria Hess MD, [facility] CPT-4: 97484 04/24/2017 31370 EST. PATIENT, LEVEL III Diagnosis: Acute suppurative otitis media without spontaneous rupture of ear drum, right ear[ICD10: H66.001] Diagnosis: Other allergic rhinitis[ICD10: J30.89] Gloria Hess MD, [facility] CPT- 4: 69878 01/09/2017 11459 EST. PATIENT, LEVEL IV Diagnosis: Candidiasis of vulva and vagina[ICD10: B37.3] Diagnosis: Type 2 diabetes mellitus with hyperglycemia[ICD10: E11.65] Gloria Hess MD [facility] CPT-4: 83546 10/30/2016 33148 EST. PATIENT, LEVEL III Diagnosis: Candidiasis of vulva and vagina[ICD10: B37.3] Diagnosis: Type 2 diabetes mellitus with hyperglycemia[ICD10: E11.65] Gloria Hess MD, [facility] CPT-4: 72168 10/09/2016 08474 EST. PATIENT, LEVEL IV Diagnosis: Umbilical hernia without obstruction or gangrene[ICD10: K42.9] Gloria Hess MD [facility] CPT-4: 60049 09/12/2016 21223 EST. PATIENT, LEVEL III Diagnosis: Epigastric pain[ICD10: R10.13] Diagnosis: Candidiasis of vulva and vagina[ICD10: B37.3] Diagnosis: Type 2 diabetes mellitus with hyperglycemia[ICD10: E11.65] Gloria Hess MD, [facility] CPT-4: 50714 09/05/2016 53382 EST. PATIENT, LEVEL III Diagnosis: Acute laryngopharyngitis[ICD10: J06.0] Diagnosis: Other allergic rhinitis[ICD10: J30.89] Gloria Hess MD, [facility] CPT- 4: 87508 06/16/2016 16334 EST. PATIENT, LEVEL III Diagnosis: Type 2 diabetes mellitus with hyperglycemia[ICD10: E11.65] Diagnosis: Other obesity due to excess calories[ICD10: E66.09] Gloria Hess MD, [facility] CPT-4: 70959 06/13/2016 13653 EST. PATIENT, LEVEL III Diagnosis: Type 2 diabetes mellitus with hyperglycemia[ICD10: E11.65] Diagnosis: Other obesity due to excess calories[ICD10: E66.09] Gloria Hess MD, [facility] CPT-4: 73978 05/19/2016 09264 EST. PATIENT, LEVEL III Diagnosis: Type 2 diabetes mellitus with hyperglycemia[ICD10: E11.65] Diagnosis: Other obesity due to excess calories[ICD10: E66.09] Gloria Hess MD, [facility] CPT-4: 67795 05/08/2016 32836 EST. PATIENT, LEVEL III Diagnosis: Type 2 diabetes mellitus without complications[ICD10: E11.9] Gloria Hess MD, [facility] CPT-4: 47204 05/05/2016 55724 EST. PATIENT, LEVEL III Diagnosis: Pain in right shoulder[ICD10: M25.511] Gloria Hess MD, [facility] CPT- 4: 40224 04/10/2016 17268 EST. PATIENT, LEVEL III Diagnosis: Pain in right shoulder[ICD10: M25.511] Diagnosis: Other muscle spasm[ICD10: M62.838] Diagnosis: Type 2 diabetes mellitus without complications[ICD10: E11.9] Gloria Hess MD, [facility] CPT-4: 06707 04/06/2016 11244 EST. PATIENT, LEVEL IV Diagnosis: Acute bronchitis due to other specified organisms[ICD10: J20.8] Diagnosis: Other acute sinusitis[ICD10: J01.80] Diagnosis: Acne vulgaris[ICD10: L70.0] Diagnosis: Morbid (severe) obesity due to excess calories[ICD10: E66.01] Gloria Hess MD, [facility] CPT-4: 13532 03/08/2016 82210 EST. PATIENT, LEVEL IV Diagnosis: Other acute sinusitis[ICD10: J01.80] Diagnosis: Localized enlarged lymph nodes[ICD10: R59.0] Gloria Hess MD, [facility] CPT-4: 83308 02/28/2016 39317 EST. PATIENT, LEVEL III Diagnosis: Type 2 diabetes mellitus without complications[ICD10: E11.9] Gloria Hess MD, [facility] CPT-4: 27491 01/18/2016 ([id number]) PREV VISIT EST AGE 40-64 Diagnosis: Encounter for gynecological examination (general) (routine) without abnormal findings[ICD10: Z01.419] Diagnosis: Excessive and frequent menstruation with irregular cycle[ICD10: N92.1] Gloria Hess MD, [facility] CPT-4: 27978 12/23/2015 08189 EST. PATIENT, LEVEL III Diagnosis: Type 2 diabetes mellitus without complications[ICD10: E11.9] Gloria Hess MD, [facility] CPT-4: 39535 12/16/2015 71662 EST. PATIENT, LEVEL III Diagnosis: Type 2 diabetes mellitus without complications[ICD10: E11.9] Diagnosis: Other obesity due to excess calories[ICD10: E66.09] Gloria Hess MD, [facility] CPT-4: 40179 11/11/2015 91490 EST. PATIENT, LEVEL III Diagnosis: Type 2 diabetes mellitus without complications[ICD10: E11.9] Diagnosis: Other obesity due to excess calories[ICD10: E66.09] Gloria Hess MD, [facility] CPT-4: 37082 10/27/2015 35913 EST. PATIENT, LEVEL III Diagnosis: Type 2 diabetes mellitus without complications[ICD10: E11.9] Diagnosis: Other obesity due to excess calories[ICD10: E66.09] Diagnosis: Other insomnia[ICD10: G47.09] Gloria Hess MD, [facility] CPT-4: 52457 10/13/2015 91632 EST. PATIENT, LEVEL IV Diagnosis: Acute recurrent maxillary sinusitis[ICD10: J01.01] Diagnosis: Allergic rhinitis due to pollen[ICD10: J30.1] Diagnosis: Other obesity due to excess calories[ICD10: E66.09] Gloria Hess MD, [facility] CPT-4: 85386 10/05/2015 97530 EST. PATIENT, LEVEL IV Diagnosis: Polycystic ovarian syndrome[ICD10: E28.2] Diagnosis: Other skin changes[ICD10: R23.8] Diagnosis: Other abnormal glucose[ICD10: R73.09] Gloria Hess MD, [facility] CPT- 4: 45634 09/01/2015 09220 EST. PATIENT, LEVEL IV Diagnosis: Acute recurrent maxillary sinusitis[ICD10: J01.01] Diagnosis: Morbid (severe) obesity due to excess calories[ICD10: E66.01] Diagnosis: Essential (primary) hypertension[ICD10: I10] Diagnosis: Allergic rhinitis due to pollen[ICD10: J30.1] Gloria Hess MD, [facility] CPT-4: 82404 08/20/2015 ([id number]) OFFICE VISIT, NEW - LEVEL 4 Diagnosis: Essential (primary) hypertension[ICD10: I10] Diagnosis: Obstructive sleep apnea (adult) (pediatric)[ICD10: G47.33] Diagnosis: Other insomnia[ICD10: G47.09] Diagnosis: Snoring[ICD10: R06.83] Diagnosis: Morbid (severe) obesity due to excess calories[ICD10: E66.01] Gloria Hess MD, [facility] CPT-4: 87492 08/03/2015 Plan of Care Planned Activity Notes Codes Status Date Visit Plan: UTI - pt with positive urinalysis - culture sent if appropriate. Antibiotic electronically prescribed to pt's pharmacy of choice. Pt to call if symptoms do not improve. 12/16/2018 Patient Education: Patient Medication Summary Completed 12/16/2018 Care Plan: Urine Culture Pending 12/16/2018 Visit Plan: URI - Pt advised to [...] spray in the nasal steroid allergy spray. 11/18/2018 Appointment[phone] [facility] ([facility] Complex 11/18/2018 Patient Education: Patient Medication Summary Completed 11/18/2018 Visit Plan: URI - Pt advised to [...] spray in the nasal steroid allergy spray. 11/01/2018 Appointment: Gloria Scott WPtel: [facility] ([facility] min) Complex 11/01/2018 Patient Education: Patient Medication Summary Completed 11/01/2018 Patient Education: Diabetes Completed 11/01/2018 Care Plan: Comp Metabolic Pending 11/01/2018 Care Plan: Cbc With Differential Pending 11/01/2018 Care Plan: %Hba1C LOINC : 07543-1 Pending 11/01/2018 Care Plan: Tsh Pending 11/01/2018 Visit Plan: Hypertension - uncontrolled - the [...] pt is to call for acute concerns. 08/06/2018 Appointment: [facility]el[facility] [phone] [facility] ([facility] min) Complex 08/06/2018 Patient Education: Patient Medication Summary Completed 08/06/2018 Visit Plan: incision - healing well - Wound Instructions - Pt was instructed to keep the wound clean, wash with antibacterial soap, use triple antibiotic ointment, call if redness, pustular drainage, or any other a cute concerns. Hidradenitis suppurativa - will refer to dermatology. 07/22/2018 Appointment: [facility]el[facility] [phone] [facility] ([facility] min) Complex 07/22/2018 Patient Education: Patient Medication Summary Completed 07/22/2018 Visit Plan: Hidradenitis suppurativa - post incision - wound healing well - continue to monitor Wound Instructions - Pt was instructed to keep the wound clean, wash with antibacterial soap, use triple antibiotic oi ntment, call if redness, pustular drainage, or any other acute concerns. 07/18/2018 Appointment: [facility]el[facility] [phone] [facility] ([facility] min) Complex 07/18/2018 Patient Education: Patient Medication Summary Completed 07/18/2018 Referral: Roni Roberts pt will be notified by there office to schedule Initiated 07/03/2018 Care Plan: Referral Order SNOMED-CT : [id number] Pending 07/01/2018 Visit Plan: Abscess/Cellulitis - The [...] stomach pain. 06/28/2018 Appointment: Gloria Scott WPtel: [address] [place] [address] (30 min) Complex 06/28/2018 Patient Education: Patient Medication Summary Completed 06/28/2018 Visit Plan: Cellulitis-right bswchz-sndcplmk-tyz bactroban ointment until healed completely-call with any concerns 06/17/2018 Appointment: Tamy Lugo WPtel: [facility]3 [phone] (15 min) Moderate 06/17/2018 Patient Education: Patient Medication Summary Completed 06/17/2018 Visit Plan: Abscess/Cellulitis - The patient was instructed in appropriate wound care. The patient was instructed to use the antibiotic ointment as per RX. The patient is to call for any change in symptoms, increase in size of the lesion, increase in pain, worsening redness, warmth, discharge. 06/05/2018 Appointment: Gloria Scott WPtel: [address] [place], [place] [id number] (30 min) Complex 06/05/2018 Patient Education: Patient Medication Summary Completed 06/05/2018 Patient Education: Diabetes Completed 06/05/2018 Referral: [facility] Referral Initiated 04/19/2018 Care Plan: Referral Order SNOMED-CT : [id number] Pending 03/27/2018 Visit Plan: Esophageal Reflux - the patient has been counseled against excessive intake of caffeine, spicy foods, peppermint, and cinnamon - all of which can exacerbate esophageal reflux. The patient is to take med ications as prescribed and call the office if [...] allergy spray. 03/26/2018 Appointment: [facility]el[facility] [phone] [facility] [place] (15 min) Moderate 03/26/2018 Patient Education: Patient Medication Summary Completed 03/26/2018 Appointment: [facility]el[facility] [phone] [facility] [place] (15 min) Moderate 03/25/2018 Visit Plan: [...] and bandaids. 03/14/2018 Appointment: Gloria Scott WPtel: [facility]5 [facility] (15 min) Moderate 03/14/2018 Patient Education: Patient [...] symptoms do not improve 03/07/2018 Appointment: Gloria Scotttel: [facility]5 [place] [id number] (15 min) Moderate 03/07/2018 Patient Education: [...] acutely worsen. 02/19/2018 Appointment: Gloria Scott WPtel: [facility]5 [facility] (15 min) Moderate 02/19/2018 Patient Education: Patient [...] worsening redness, warmth, discharge. 01/08/2018 Appointment: [facility] Scottl[facility] [address] [facility] (30 min) Complex 01/08/2018 Patient Education: Patient [...] bronchitis identified. Pt has been given antibiotics, steroids as appropriate, and pt has been instructed to call if symptoms are not improved, or if symptoms acutely worsen. 09/05/2017 Appointment: [facility]Ptel[facility] [phone] [facility] (15 min) Moderate 09/05/2017 Patient Education: Patient [...] send RX 06/07/2017 Appointment: Gloria Scott WPtel: [address] [place], [place] [phone] (15 min) Moderate 06/07/2017 Patient Education: Patient [...] The pt has been advised to use anti- inflammatories post injection today, ice to the injected site, call if redness, warmth, or increased pain occurs at the site of injection. 04/24/2017 Appointment: Gloria Scott WPtel: [address] [place], [place] [phone] (30 min) Complex 04/24/2017 Patient Education: Patient Medication Summary Completed 04/24/2017 Appointment: Gloria Scotttel: [address] [place], [place] [phone] (30 min) Complex 03/09/2017 Appointment: Gloria Scott WPtel: [address] [place], [place] [phone] (30 min) Complex 02/13/2017 Visit Plan: Otitis [...] allergy spray. 01/09/2017 Appointment: [facility]Ptel[facility] [phone] [facility] [place] (10 min) Simple 01/09/2017 Patient Education: Patient Medication Summary Completed 01/09/2017 Patient Education: Obesity Completed 01/09/2017 Visit Plan: Vaginal candidiasis - will send RX - pt is to notify clinic if symptoms do not improve, if they worsen, or with any questions or concerns. Diabetes Mellitus - Uncontrolled - Will refer to tax manager cpa - I have recommended for the patient [...] starting to become less controlled. I have recommend ed for the patient to follow more strictly [...] Mellitus - Uncontrolled - Will refer to tax manager cpa - I have recommended for the patient [...] starting to become less controlled. I have recommend ed for the patient to follow more strictly to the diabetic diet as discussed in clinic to allow for greater blood glucose control. 10/09/2016 Appointment: [facility]Ptel[facility] [phone] [facility] [place] (30 min) Complex 10/09/2016 Patient Education: Patient Medication Summary Completed 10/09/2016 Patient Education: Obesity Completed 10/09/2016 Referral: Roni Roberts Referral Completed 09/18/2016 Care Plan: CT ABD & PELV W/CONTRAST LOINC : 81521-1 Pending 09/13/2016 Care Plan: Referral Order SNOMED-CT : [id number] Pending 09/13/2016 Visit Plan: Ongoing abdominal pain/hernia - will send RX - will refer - pt is to notify clinic if symptoms do not improve, if they worsen, or with any questions or concerns. 09/12/2016 Appointment: Gloria Scott WPtel: [phone] [facility] (30 min) Complex 09/12/2016 Patient Education: Patient Medication Summary Completed 09/12/2016 Patient Education: Obesity Completed 09/12/2016 Care Plan: Referral Order SNOMED-CT : [id number] Pending 09/12/2016 Visit Plan: Ongoing abdominal/epigastric pain [...] control. 09/05/2016 Appointment: [facility]Ptel[facility] [phone] [facility] (30 min) Complex 09/05/2016 Patient Education: Patient [...] spray. 06/16/2016 Appointment: Gloria Scott WPtel: [phone] [facility] (10 min) Simple 06/16/2016 Patient Education: Patient [...] weight check. 06/13/2016 Appointment: Gloria Scott WPtel: [phone] [facility] (30 min) Complex 06/13/2016 Patient Education: Patient Medication Summary Completed 06/13/2016 Patient Education: Obesity Completed 06/13/2016 Appointment: Gloria Scott WPtel: [phone] [facility] (30 min) Complex 06/08/2016 Visit Plan: [...] check. 05/19/2016 Appointment: [facility]Ptel[facility] [phone] [phone] (30 min) Complex 05/19/2016 Patient Education: Patient Medication Summary Completed 05/19/2016 Patient Education: Obesity Completed 05/19/2016 Care Plan: BMI Above normal followup SELF-MGMT EDUC & TRAIN 1 PT Pending 05/19/2016 Visit Plan: Diabetes Mellitus - Uncontrolled - [...] check. 05/08/2016 Appointment: [facility]Ptel[facility] [phone] [facility] [place] (15 min) Moderate 05/08/2016 Patient Education: [...] morning. 05/05/2016 Appointment: Tamy Lugo WPtel: [phone] [phone] [place] (15 min) Moderate 05/05/2016 Patient Education: Patient Medication Summary Completed 05/05/2016 Patient Education: Obesity Completed 05/05/2016 Care Plan: Comp Metabolic Pending 05/05/2016 Appointment: Jocelyn Hess WPtel: [phone] [facility] Surgical Procedure 04/17/2016 Appointment: Injection 04/13/2016 Patient Education: Patient Medication Summary Completed 04/13/2016 Visit Plan: Right shoulder pain - will refer to PT - The pt is to use prn antiinflammatories to manage acute pain. The patient is to call the office if the pain is worsening or does not improve. 04/10/2016 Appointment: Gloria Scott WPtel: [phone] [facility] (30 min) Complex 04/10/2016 Patient Education: Patient Medication Summary Completed 04/10/2016 Patient Education: Obesity Completed 04/10/2016 Visit Plan: Trigger Points - Injected trigger points today, [...] control. 04/06/2016 Appointment: Gloria Scott WPtel: [phone] [facility] [place] (15 min) Moderate 04/06/2016 Patient Education: Patient [...] [place] 02/28/2016 Appointment: [facility]Ptel[phone] [facility] (30 min) Complex 02/28/2016 Patient Education: Patient Medication Summary Completed 02/28/2016 Patient Education: Obesity Completed 02/28/2016 Appointment: [facility]Ptel[facility] [phone] [facility] (15 min) Moderate 01/31/2016 Visit Plan: Diabetes [...] SELF-MGMT EDUC & TRAIN 1 PT Pending 01/09/2016 Visit Plan: Well Adult Female - exam completed. Pap and gc/chlamydia and breast exam completed. Pt will be called with results of her testing. She was advised to continue with yearly annual exams. Safe sex practices discussed during office visit today. Call if any abnormal gynecologic issues during the next year, otherwise, RTC yearly or prn. 12/23/2015 Visit Plan: Well Adult Female - exam completed. Pap and gc/chlamydia and breast exam completed. Pt will be called with results of her testing. She was advised to continue with yearly annual exams. Safe sex practices discussed during office visit today. Call if any abnormal gynecologic issues during the next year, otherwise, RTC yearly or prn. 12/23/2015 Appointment: Gloria Scott WPtel: [address] [place] [address] Well Woman 12/23/2015 Patient Education: Patient Medication [...] issue with this patient. The pt has bee n counseled about diet changes, calorie restriction, and [...] SELF-MGMT EDUC & TRAIN 1 PT Pending 10/27/2015 Visit Plan: Diabetes Mellitus - Uncontrolled - [...] SELF-MGMT EDUC & TRAIN 1 PT Pending 10/13/2015 Care Plan: BMI Above normal followup SELF-MGMT EDUC & TRAIN 1 PT Pending 10/06/2015 Visit Plan: Sinusitis - Pt has acute [...] ADD TO BLOOD IN THE LAB. [facility] : 42611-4 Pending 08/13/2015 Visit Plan: Hypertension - uncontrolled [...] Referral: Roni Roberts Referral Com[facility] [place] Ref[facility] Initiated Referral: Roni Roberts Referral [...] bronchitis identified. Pt has been given antibiotics, steroids as appropriate, and pt has been [...] to allow for greater blood glucose control. steroid shot today zpack prednisone 40mg daily x 5 days - start only if needed refill cough syrup - tell them to check the voicemail if no improvement will refill phenergan. URI - Pt advised to increase fluids, [...] of stomach upset or stomach pain. . Otitis Media - discussed the diagnosis [...] in the nasal steroid allergy spray. . Hypertension - uncontrolled - the patient's [...] pt is to call for acute concerns. . Diabetes Mellitus - Uncontrolled - per [...] for a shot if needed will call logan mccloud let me know if it is not [...] Mellitus - Uncontrolled - Will refer to tax manager cpa - I have recommended for the patient [...] Mellitus - Uncontrolled - Will refer to tax manager cpa - I have recommended for the patient [...] with any questions or concerns. . Cellulitis-right rspdst-tdhadend-wcd bactroban ointment until healed completely-call with any [...] Adult Female - exam completed. Pap and gc/chlamydia and breast exam completed. Pt will be called with results of her testing. She was advised to continue with yearly annual exams. Safe sex practices discussed during office visit today. Call if any abnormal gynecologic issues during the next year, otherwise, RTC yearly or prn. . Well Adult Female - exam completed. Pap and gc/chlamydia and breast exam completed. Pt will be called with results of her testing. She was advised to continue with yearly annual exams. Safe sex practices discussed during office visit today. Call if any abnormal gynecologic issues during the next year, otherwise, RTC yearly or prn. . UTI - pt with positive urinalysis - culture sent if appropriate. Antibiotic electronically prescribed to pt's pharmacy of choice. Pt to call if symptoms do not improve. . Ongoing abdominal/epigastric pain - pt states [...] days, then twice a day x 3 days, then daily x 3 days. steroid taper [...] improved, or if symptoms acutely worsen. . URI - Pt advised to increase [...] spray in the nasal steroid allergy spray. will send bactroban ointment - once a day, change dressing daily will send ibuprofen 800mg three times a day as needed for pain lyrica at night x 3 days will refer you to dermatology for hidradenitis suppurativa . incision - healing well - Wound Instructions - Pt was instructed to keep the wound clean, wash with antibacterial soap, use triple antibiotic ointment, call if redness, pustular drainage, or any other acute concerns. Hidradenitis suppurativa - will refer to dermatology. . Skin tag removal - irritated skin [...] - Injected trigger points today, pt given post- injection instructions, signs and symptoms for which to [...] allow for greater blood glucose control. . Hidradenitis suppurativa - post incision - wound healing well - continue to monitor Wound Instructions - Pt was instructed to keep the wound clean, wash with antibacterial soap, use triple antibiotic ointment, call if redness, pustular drainage, or any other acute concerns.
--- OUTSIDE RECORDS SUMMARY | 2018-12-17 02:23 | XMS REPORT | CCD ---
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 Name Role Phone PP Unavailable CCM Unavailable Summary Purpose Interface Exchange Insurance Providers Payer name Policy type / Coverage type Covered alliance party ID Effective Begin Date Effective End Date [facility] Commercial Insurance [id number] Unknown Unknown Family history Father Diagnosis Age At Onset Hypertension Unknown Arthritis Unknown Mother Diagnosis Age At Onset Arthritis Unknown Hyperlipidemia Unknown Daughter Diagnosis Age At Onset Asthma Unknown Social History Social History Element Codes Description Effective Dates Marital status Unknown Darin 08/03/2015 Number of children Unknown 1 08/03/[address]: 8135492 Quit less than 5 years ago 08/03/2015 [...] Codes Condition Status Onset Date Resolved Date Acute laryngopharyngitis ICD-9: 465.0 ICD-10: J06.0 Active [...] Problems Condition Codes Effective Dates Condition Status Acute laryngopharyngitis ICD-9: 465.0 ICD-10: J06.0 06/15/2016 [...] Start Date Stop Date Status Fill Instructions Mucinex 600 mg tablet, extended release RxNorm: 259825 1 Tablet(s) PO BID 11/18/2018 12/17/2018 Active ibuprofen 800 mg tablet RxNorm: 509005 1 Tablet(s) PO TID as needed for pain 11/18/2018 12/17/2018 Active albuterol sulfate 2.5 mg/3 mL (0.083 %) solution for nebulization RxNorm: 178510 3 Milliliter(s) INH Q4-6H as needed dyspnea 11/18/2018 No Stop Date Active Xopenex 1.25 mg/3 mL solution for nebulization RxNorm: 576065 Milliliter(s) USE ONE VIAL IN NEBULIZER THREE TIMES DAILY 11/18/2018 No Stop Date Active Zithromax Z-Rashid 250 mg tablet RxNorm: 334767 1 Tablet(s) PO UD 11/01/2018 No Stop Date Active promethazine 25 mg tablet RxNorm: 305515 Tablet(s) TABLET(S) TAKE ONE TABLET BY MOUTH EVERY 6 TO 8 HOURS NEEDED 11/01/2018 No Stop Date Active Kenalog 40 mg/mL suspension for injection RxNorm: 6573539 Milliliter(s) Inj 11/01/2018 11/01/2018 Inactive prednisone 20 mg tablet RxNorm: 829179 2 Tablet(s) PO daily 11/01/2018 11/05/2018 Inactive ibuprofen 800 mg tablet RxNorm: 533467 1 Tablet(s) PO TID as needed for pain 09/05/2018 09/14/2018 Inactive Phenergan with Codeine Syrup RxNorm: 5-10 ML PO QID as needed cough 08/08/2018 No Stop Date Active alprazolam 0.25 mg tablet RxNorm: 245819 1 Tablet(s) PO daily as needed anxiety 08/08/2018 No Stop Date Active metoprolol succinate ER 100 mg tablet,extended release 24 hr RxNorm: 555749 Tablet(s) TAKE ONE TABLET BY MOUTH ONCE DAILY 08/06/2018 No Stop Date Active ibuprofen 800 mg tablet RxNorm: 253588 1 Tablet(s) PO TID as needed for pain 08/06/2018 08/15/2018 Inactive Zithromax Z-Rashid 250 mg tablet RxNorm: 446797 1 Tablet(s) PO UD 08/06/2018 09/04/2018 Inactive metoprolol succinate ER 50 mg tablet,extended release 24 hr RxNorm: 598373 1 Tablet(s) PO daily 08/06/2018 09/04/2018 Inactive Lyrica 100 mg capsule RxNorm: 232572 1 Capsule(s) PO TID 07/25/2018 10/16/2018 Inactive Lyrica 100 mg capsule RxNorm: 799548 1 Capsule(s) PO TID 07/25/2018 07/24/2018 Inactive mupirocin 2 % topical ointment RxNorm: 693117 1 Application TOP daily 07/22/2018 07/28/2018 Inactive ibuprofen 800 mg tablet RxNorm: 222367 1 Tablet(s) PO TID as needed for pain 07/22/2018 07/31/2018 Inactive hydrocodone 7.5 mg-acetaminophen 325 mg tablet RxNorm: 055773 1 Tablet(s) PO Q4H as needed 07/18/2018 08/16/2018 Inactive promethazine 25 mg tablet RxNorm: 791074 TABLET(S) TAKE ONE TABLET BY MOUTH EVERY 6 TO 8 HOURS NEEDED 07/05/2018 2018 Inactive hyoscyamine 0.125 mg sublingual tablet RxNorm: 7785184 1 Tablet(s) SL TID as needed diarrhea 06/28/2018 07/07/2018 Inactive mupirocin 2 % topical ointment RxNorm: 685695 1 Application TOP BID 06/17/2018 06/26/2018 Inactive mupirocin 2 % topical ointment RxNorm: 228748 1 Application TOP BID 06/05/2018 No Stop Date Active Keflex 500 mg capsule RxNorm: 688707 1 Capsule(s) PO TID 06/05/2018 06/11/2018 Inactive ceftriaxone 500 mg solution for injection RxNorm: 0582829 Inj 06/05/2018 06/05/2018 Inactive Diflucan 150 mg tablet RxNorm: 940369 1 Tablet(s) PO daily 06/05/2018 07/02/2018 Inactive Protonix 40 mg tablet,delayed release RxNorm: 753877 1 Tablet(s) PO BID x 1 week then daily 03/26/2018 No Stop Date Active Phenergan with Codeine Syrup RxNorm: 5-10 ML PO QID as needed cough 03/19/2018 08/07/2018 Inactive promethazine 25 mg tablet RxNorm: 726526 Tablet(s) TAKE ONE TABLET BY MOUTH EVERY 6 TO 8 HOURS NEEDED 03/15/2018 07/04/2018 Inactive Singulair 10 mg tablet RxNorm: 357367 1 Tablet(s) PO daily 03/14/2018 04/12/2018 Inactive metoprolol succinate ER 100 mg tablet,extended release 24 hr RxNorm: 155647 1 Tablet(s) PO daily 03/07/2018 04/05/2018 Inactive Zithromax Z-Rashid 250 mg tablet RxNorm: 813823 1 Tablet(s) PO UD 03/07/2018 03/07/2018 Inactive prednisone 20 mg tablet RxNorm: 135997 2 Tablet(s) PO daily 03/07/2018 03/11/2018 Inactive Diflucan 150 mg tablet RxNorm: 670156 Tablet(s) TAKE ONE TABLET BY MOUTH ONCE DAILY FOR 7 DAYS THEN TAKE ONE TABLET BY MOUTH ONCE A WEEK 02/19/2018 06/04/2018 Inactive Levaquin 500 mg tablet RxNorm: 729522 1 Tablet(s) PO daily 02/19/2018 02/25/2018 Inactive prednisone 20 mg tablet RxNorm: 853314 2 Tablet(s) PO daily 02/19/2018 02/23/2018 Inactive albuterol sulfate 2.5 mg/3 mL (0.083 %) solution for nebulization RxNorm: 524344 3 Milliliter(s) INH Q4-6H as needed dyspnea 02/19/2018 11/17/2018 Inactive Kenalog 40 mg/mL suspension for injection RxNorm: 1666493 15. Milliliter(s) Inj 02/19/2018 02/19/2018 Inactive hydrocodone 7.5 mg-acetaminophen 325 mg tablet RxNorm: 815474 1 Tablet(s) PO Q4H as needed 02/05/2018 03/06/2018 Inactive clindamycin HCl 300 mg capsule RxNorm: 567297 1 Capsule(s) PO TID 01/09/2018 01/15/2018 Inactive promethazine 25 mg tablet RxNorm: 654158 Tablet(s) TAKE ONE TABLET BY MOUTH EVERY 6 TO 8 HOURS NEEDED 01/08/2018 03/14/2018 Inactive Diflucan 150 mg tablet RxNorm: 453691 Tablet(s) TAKE ONE TABLET BY MOUTH ONCE DAILY FOR 7 DAYS THEN TAKE ONE TABLET BY MOUTH ONCE A WEEK 01/08/2018 02/18/2018 Inactive Bactrim DS 800 mg-160 mg tablet RxNorm: 878010 1 Tablet(s) PO BID 01/08/2018 01/17/2018 Inactive prednisone 20 mg tablet RxNorm: 333784 2 Tablet(s) PO daily 11/23/2017 11/27/2017 Inactive Zithromax Z-Rashid 250 mg tablet RxNorm: 149935 1 Tablet(s) PO UD 09/05/2017 02/11/2018 Inactive Kenalog 40 mg/mL suspension for injection RxNorm: 1330611 Milliliter(s) Inj 09/05/2017 09/05/2017 Inactive prednisone 20 mg tablet RxNorm: 047810 2 Tablet(s) PO daily 09/05/2017 09/09/2017 Inactive ibuprofen 800 mg tablet RxNorm: 766803 1 Tablet(s) PO TID 07/27/2017 02/21/2018 Inactive alprazolam 0.5 mg tablet RxNorm: 496185 1 Tablet(s) PO Q8 as needed 06/20/2017 07/09/2017 Inactive metoprolol succinate ER 100 mg tablet,extended release 24 hr RxNorm: 577495 TAKE ONE TABLET BY MOUTH ONCE DAILY 06/20/2017 08/05/2018 Inactive Zithromax Z-Rashid 250 mg tablet RxNorm: 767202 1 Tablet(s) PO UD 06/15/2017 07/25/2017 Inactive Xopenex HFA 45 mcg/actuation aerosol inhaler RxNorm: 761547 INHALE ONE PUFF INTO LUNGS NEEDED 06/13/2017 07/14/2017 Inactive Flovent HFA 44 mcg/actuation aerosol inhaler RxNorm: 339706 2 Puff(s) INH BID 06/08/2017 No Stop Date Active Xopenex 1.25 mg/3 mL solution for nebulization RxNorm: 435134 Milliliter(s) USE ONE VIAL IN NEBULIZER THREE TIMES DAILY 06/08/2017 11/17/2018 Inactive potassium chloride ER 10 mEq tablet,extended release RxNorm: 494438 1 Tablet(s) PO daily 06/08/2017 06/10/2017 Inactive Lasix 20 mg tablet RxNorm: 576143 1 Tablet(s) PO daily 06/08/2017 06/10/2017 Inactive Xopenex HFA 45 mcg/actuation aerosol inhaler RxNorm: 104226 INHALE ONE PUFF INTO LUNGS NEEDED 06/08/2017 06/12/2017 Inactive triamcinolone acetonide 0.025 % topical cream RxNorm: 2046909 1 Application TOP BID 06/07/2017 No Stop Date Active ibuprofen 800 mg tablet RxNorm: 869238 1 Tablet(s) PO TID 06/07/2017 07/06/2017 Inactive cyclobenzaprine 5 mg tablet RxNorm: 723331 1/2 Tablet(s) PO TID as needed muscle spasms 05/28/2017 06/01/2017 Inactive Diflucan 150 mg tablet RxNorm: 862402 TAKE ONE TABLET BY MOUTH ONCE DAILY FOR 7 DAYS THEN TAKE ONE TABLET BY MOUTH ONCE A WEEK 05/28/2017 01/07/2018 Inactive bumetanide 1 mg tablet RxNorm: 541171 TAKE ONE TABLET BY MOUTH TWICE DAILY 05/25/2017 No Stop Date Active meloxicam 7.5 mg tablet RxNorm: 058457 1 Tablet(s) PO daily as needed 05/25/2017 07/23/2017 Inactive Xopenex 1.25 mg/3 mL solution for nebulization RxNorm: 656230 USE ONE VIAL IN NEBULIZER THREE TIMES DAILY 05/25/2017 06/07/2017 Inactive Protonix 40 mg tablet,delayed release RxNorm: 411428 1 Tablet(s) PO daily 05/08/2017 11/03/2017 Inactive Protonix 40 mg tablet,delayed release RxNorm: 827325 1 Tablet(s) PO daily 05/04/2017 05/03/2017 Inactive Protonix 40 mg tablet,delayed release RxNorm: 139974 1 Tablet(s) PO daily 05/04/2017 05/07/2017 Inactive meloxicam 7.5 mg tablet RxNorm: 375329 1 Tablet(s) PO daily as needed 04/25/2017 04/24/2017 Inactive meloxicam 7.5 mg tablet RxNorm: 240298 1 Tablet(s) PO daily as needed 04/25/2017 05/04/2017 Inactive promethazine 25 mg tablet RxNorm: 019707 TAKE ONE TABLET BY MOUTH EVERY 6 TO 8 HOURS NEEDED 04/25/2017 01/07/2018 Inactive Kenalog 40 mg/mL suspension for injection RxNorm: 9965241 1 Milliliter(s) Inj 04/24/2017 04/24/2017 Inactive cyclobenzaprine 5 mg tablet RxNorm: 470744 1/2 Tablet(s) PO TID as needed muscle spasms 04/24/2017 04/28/2017 Inactive Xopenex HFA 45 mcg/actuation aerosol inhaler RxNorm: 803316 INHALE ONE PUFF INTO LUNGS NEEDED 03/30/2017 04/14/2017 Inactive Humalog KwikPen 200 unit/mL (3 mL) subcutaneous RxNorm: 4825104 INJECT 35 UNITS SUBCUTANEOUSLY BEFORE MEAL(S) 03/30/2017 06/05/2017 Inactive promethazine 25 mg tablet RxNorm: 771970 Tablet(s) TAKE ONE TABLET BY MOUTH EVERY 6 TO 8 HOURS NEEDED 03/12/2017 03/26/2017 Inactive cyclobenzaprine 10 mg tablet RxNorm: 549477 TAKE ONE TABLET BY MOUTH ONCE DAILY NEEDED 03/06/2017 03/15/2017 Inactive lidocaine 5 % topical patch RxNorm: 4642125 USE ONE PATCH TOPICALLY DAILY. 12 HOURS ON AND THEN 12 HOURS OFF. 03/06/2017 03/15/2017 Inactive Humalog KwikPen 200 unit/mL (3 mL) subcutaneous RxNorm: 1835514 INJECT 35 UNITS SUBCUTANEOUSLY BEFORE MEAL(S) 02/20/2017 03/25/2017 Inactive promethazine 25 mg tablet RxNorm: 598052 Tablet(s) TAKE ONE TABLET BY MOUTH EVERY 6 TO 8 HOURS NEEDED 02/20/2017 03/06/2017 Inactive Xopenex HFA 45 mcg/actuation aerosol inhaler RxNorm: 412017 INHALE ONE PUFF INTO LUNGS NEEDED 02/20/2017 03/07/2017 Inactive bumetanide 1 mg tablet RxNorm: 519820 TAKE ONE TABLET BY MOUTH TWICE DAILY 02/15/2017 05/15/2017 Inactive bumetanide 1 mg tablet RxNorm: 428935 TAKE ONE TABLET BY MOUTH TWICE DAILY 01/15/2017 02/13/2017 Inactive metoprolol succinate ER 100 mg tablet,extended release 24 hr RxNorm: 702749 TAKE ONE TABLET BY MOUTH ONCE DAILY 01/11/2017 06/19/2017 Inactive Zithromax Z-Rashid 250 mg tablet RxNorm: 408008 1 Tablet(s) PO UD 01/09/2017 03/13/2017 Inactive meclizine 25 mg tablet RxNorm: 050664 1 Tablet(s) PO TID as needed 01/09/2017 01/18/2017 Inactive Kenalog 40 mg/mL suspension for injection RxNorm: 6874252 Milliliter(s) Inj 01/09/2017 01/09/2017 Inactive promethazine 25 mg tablet RxNorm: 409246 Tablet(s) TAKE ONE TABLET BY MOUTH EVERY 6 TO 8 HOURS NEEDED 12/29/2016 01/12/2017 Inactive Voltaren 1 % topical gel RxNorm: 882167 APPLY TOPICALLY TO AFFECTED AREA TWICE DAILY 12/25/2016 01/13/2017 Inactive cyclobenzaprine 10 mg tablet RxNorm: 432468 TAKE ONE TABLET BY MOUTH NEEDED 12/22/2016 12/31/2016 Inactive lidocaine 5 % topical patch RxNorm: 4807139 USE ONE PATCH TOPICALLY DAILY. 12 HOURS ON AND THEN 12 HOURS OFF. 12/22/2016 12/31/2016 Inactive hydrocodone 7.5 mg-acetaminophen 325 mg tablet RxNorm: 005854 1 Tablet(s) PO Q4H as needed 12/22/2016 01/20/2017 Inactive bumetanide 1 mg tablet RxNorm: 939770 TAKE ONE TABLET BY MOUTH TWICE DAILY 12/17/2016 01/14/2017 Inactive promethazine 25 mg tablet RxNorm: 589768 Tablet(s) TAKE ONE TABLET BY MOUTH EVERY 6 TO 8 HOURS NEEDED 11/16/2016 12/15/2016 Inactive spironolactone 50 mg tablet RxNorm: 796699 TAKE ONE TABLET BY MOUTH TWICE DAILY 11/15/2016 05/13/2017 Inactive Basaglar KwikPen 100 unit/mL (3 mL) subcutaneous RxNorm: 2492521 Unit(s) INJECT 35 UNITS IN THE MORNING AND 50 UNITS IN THE EVENING SUBCUTANEOUSLY 11/15/2016 03/14/2017 Inactive cyclobenzaprine 10 mg tablet RxNorm: 460338 TAKE ONE TABLET BY MOUTH NEEDED 11/15/2016 12/04/2016 Inactive lidocaine 5 % topical patch RxNorm: 3558820 1 Patch TOP daily . 12 HOURS ON, 12 HOURS OFF 11/15/2016 12/04/2016 Inactive lidocaine 4 % topical patch RxNorm: 9607636 1 Patch TOP on for 12 hours and off for 12 hours 11/14/2016 11/14/2016 Inactive promethazine 25 mg tablet RxNorm: 533108 TAKE ONE TABLET BY MOUTH EVERY 6 TO 8 HOURS NEEDED 11/14/2016 11/15/2016 Inactive Basaglar KwikPen 100 unit/mL (3 mL) subcutaneous RxNorm: 5915710 INJECT 35 UNITS IN THE MORNING AND 50 UNITS IN THE EVENING SUBCUTANEOUSLY 11/14/2016 11/14/2016 Inactive cyclobenzaprine 10 mg tablet RxNorm: 448645 TAKE ONE TABLET BY MOUTH NEEDED 11/14/2016 11/14/2016 Inactive spironolactone 50 mg tablet RxNorm: 861123 TAKE ONE TABLET BY MOUTH TWICE DAILY 11/14/2016 11/14/2016 Inactive Diflucan 150 mg tablet RxNorm: 827131 1 Tablet(s) PO as needed prophylactic after sexual intercourse 10/30/2016 No Stop Date Active hydrocodone 7.5 mg-acetaminophen 325 mg tablet RxNorm: 809674 1 Tablet(s) PO Q4H as needed 10/30/2016 11/28/2016 Inactive clotrimazole 100 mg vaginal tablet RxNorm: 767942 1 Tablet(s) VAG QW 10/30/2016 11/28/2016 Inactive Humalog KwikPen 200 unit/mL (3 mL) subcutaneous RxNorm: 5078443 35 Unit(s) SQ AC 10/30/2016 02/19/2017 Inactive QS 30 day supply Bydureon 2 mg/0.65 mL subcutaneous pen injector RxNorm: 4557124 2 Milligram(s) SQ QW 10/30/2016 11/28/2016 Inactive Basaglar KwikPen 100 unit/mL (3 mL) subcutaneous RxNorm: 5183589 Unit(s) SQ 35 units in the morning and 50 units in the evening 10/30/2016 11/13/2016 Inactive QS 30 day supply cyclobenzaprine 10 mg tablet RxNorm: 462820 TAKE ONE TABLET BY MOUTH NEEDED 10/27/2016 11/05/2016 Inactive Diflucan 150 mg tablet RxNorm: 527921 1 Tablet(s) PO daily x 7 days then once a week 10/27/2016 10/29/2016 Inactive promethazine 25 mg tablet RxNorm: 318316 TAKE ONE TABLET BY MOUTH EVERY 6 TO 8 HOURS NEEDED 10/27/2016 11/10/2016 Inactive Diflucan 150 mg tablet RxNorm: 638529 1 Tablet(s) PO daily x 7 days then once a week 10/09/2016 10/15/2016 Inactive Diflucan 150 mg tablet RxNorm: 844311 1 Tablet(s) PO daily 09/20/2016 09/26/2016 Inactive Cipro 500 mg tablet RxNorm: 596280 1 Tablet(s) PO BID 09/12/2016 09/21/2016 Inactive Flagyl 500 mg tablet RxNorm: 323990 1 Tablet(s) PO TID 09/12/2016 09/21/2016 Inactive Diflucan 150 mg tablet RxNorm: 811992 1 Tablet(s) PO daily 09/06/2016 09/12/2016 Inactive hydrocodone 7.5 mg-acetaminophen 325 mg tablet RxNorm: 030187 1 Tablet(s) PO Q4H as needed 07/12/2016 08/10/2016 Inactive Xopenex 1.25 mg/3 mL solution for nebulization RxNorm: 075674 3 Milliliter(s) INH TID 06/16/2016 05/24/2017 Inactive cefdinir 300 mg capsule RxNorm: 250945 1 Capsule(s) PO BID 06/16/2016 06/25/2016 Inactive Mobic 7.5 mg tablet RxNorm: 747490 1 Tablet(s) PO daily 06/16/2016 06/25/2016 Inactive Levaquin 500 mg tablet RxNorm: 860503 1 Tablet(s) PO daily 06/16/2016 06/22/2016 Inactive cyclobenzaprine 10 mg tablet RxNorm: 852718 1 Tablet(s) PO PRN as needed 06/14/2016 06/23/2016 Inactive promethazine 25 mg tablet RxNorm: 670279 TAKE ONE TABLET BY MOUTH EVERY 6 TO 8 HOURS NEEDED 06/14/2016 06/28/2016 Inactive Xopenex HFA 45 mcg/actuation aerosol inhaler RxNorm: 916172 1 Puff(s) INH PRN 06/14/2016 07/15/2016 Inactive pen needle, diabetic 32 gauge x 5/16" RxNorm: 1 use Miscellaneous AC & HS 06/13/2016 No Stop Date Active QS 30 day supply Humalog KwikPen 200 unit/mL (3 mL) subcutaneous RxNorm: 6694494 10 Unit(s) SQ AC 06/13/2016 10/29/2016 Inactive QS 30 day supply Basaglar KwikPen 100 unit/mL (3 mL) subcutaneous RxNorm: 7183770 22 units in the morning and 35 in the evening. Unit(s) SQ 06/13/2016 10/29/2016 Inactive QS 30 day supply Tivorbex 20 mg capsule RxNorm: 8981006 1 Capsule(s) PO TID as needed 06/13/2016 06/13/2016 Inactive metoprolol succinate ER 100 mg tablet,extended release 24 hr RxNorm: 546856 TAKE ONE TABLET BY MOUTH ONCE DAILY 06/13/2016 10/10/2016 Inactive hydrocodone 7.5 mg-acetaminophen 325 mg tablet RxNorm: 072826 1 Tablet(s) PO Q4H as needed 06/13/2016 07/11/2016 Inactive Voltaren 1 % topical gel RxNorm: 629454 APPLY TOPICALLY TO AFFECTED AREA TWICE DAILY 05/30/2016 07/08/2016 Inactive cyclobenzaprine 10 mg tablet RxNorm: 178147 1 Tablet(s) PO PRN as needed 05/19/2016 05/28/2016 Inactive alprazolam 0.5 mg tablet RxNorm: 886597 1 Tablet(s) PO Q8 as needed 05/19/2016 07/23/2018 Inactive bumetanide 1 mg tablet RxNorm: 874787 TAKE ONE TABLET BY MOUTH TWICE DAILY 05/19/2016 06/17/2016 Inactive Sprintec (28) 0.25 mg-35 mcg tablet RxNorm: 489557 1 Tablet(s) PO UD 05/08/2016 No Stop Date Active Lantus Solostar 100 unit/mL (3 mL) subcutaneous insulin pen RxNorm: 200325 Unit(s) SQ UD 15units qam 30 units qhs 05/08/2016 No Stop Date Active Humalog KwikPen 200 unit/mL (3 mL) subcutaneous RxNorm: 8955521 10 Unit(s) SQ AC 05/08/2016 06/12/2016 Inactive bumetanide 1 mg tablet RxNorm: 268748 TAKE ONE TABLET BY MOUTH TWICE DAILY 04/28/2016 05/18/2016 Inactive Voltaren 1 % topical gel RxNorm: 650873 1 Application TOP BID 04/28/2016 05/07/2016 Inactive cyclobenzaprine 10 mg tablet RxNorm: 391601 1 Tablet(s) PO PRN as needed 04/28/2016 05/07/2016 Inactive hydrocodone 7.5 mg-acetaminophen 325 mg tablet RxNorm: 377865 1 Tablet(s) PO Q4H as needed 04/18/2016 05/16/2016 Inactive Lantus Solostar 100 unit/mL (3 mL) subcutaneous insulin pen RxNorm: 574303 Unit(s) SQ UD 10 units QHS x5 days, if sugars are over 200 increase to 15 units x 5 days, if sugars over 200 increase to 20 units. 04/14/2016 05/07/2016 Inactive lidocaine 4 % topical patch RxNorm: 2072936 1 Patch TOP on for 12 hours and off for 12 hours 04/13/2016 11/13/2016 Inactive Voltaren 1 % topical gel RxNorm: 580237 1 Application TOP BID 04/10/2016 04/27/2016 Inactive metformin ER 500 mg 24 hr tablet,extended release RxNorm: 310428 1 Tablet(s) PO daily 04/06/2016 05/05/2016 Inactive Kenalog 40 mg/mL suspension for injection RxNorm: 7434626 1 Milliliter(s) Inj 04/06/2016 04/06/2016 Inactive cyclobenzaprine 10 mg tablet RxNorm: 309083 1 Tablet(s) PO PRN as needed 04/06/2016 04/27/2016 Inactive WelChol 3.75 gram oral powder packet RxNorm: 829249 1 packet PO daily 04/06/2016 07/04/2016 Inactive alprazolam 0.5 mg tablet RxNorm: 058474 1 Tablet(s) PO Q8 as needed 03/30/2016 06/19/2017 Inactive Levaquin 500 mg tablet RxNorm: 611397 1 Tablet(s) PO daily 03/30/2016 04/05/2016 Inactive metoprolol succinate ER 100 mg tablet,extended release 24 hr RxNorm: 694048 TAKE ONE TABLET BY MOUTH ONCE DAILY 03/16/2016 06/12/2016 Inactive Levaquin 500 mg tablet RxNorm: 186414 1 Tablet(s) PO daily 03/08/2016 03/14/2016 Inactive prednisone 20 mg tablet RxNorm: 050073 2 Tablet(s) PO daily 03/08/2016 03/12/2016 Inactive Xopenex HFA 45 mcg/actuation aerosol inhaler RxNorm: 505752 1 Puff(s) INH PRN 02/28/2016 06/13/2016 Inactive Phenergan with Codeine Syrup RxNorm: 5-10 ML PO QID as needed cough 02/28/2016 03/18/2018 Inactive Kenalog 40 mg/mL suspension for injection RxNorm: 8065211 1 Milliliter(s) Inj 02/28/2016 02/28/2016 Inactive Zithromax Z-Rashid 250 mg tablet RxNorm: 008154 1 Tablet(s) PO UD 02/28/2016 03/27/2016 Inactive alprazolam 0.5 mg tablet RxNorm: 277507 1 Tablet(s) PO Q8 as needed 02/24/2016 06/19/2017 Inactive glipizide 5 mg tablet RxNorm: 400917 1 Tablet(s) PO daily 01/18/2016 05/16/2016 Inactive Actos 15 mg tablet RxNorm: 146518 1 Tablet(s) PO daily 01/18/2016 02/16/2016 Inactive gabapentin 100 mg capsule RxNorm: 046891 1 Capsule(s) PO QHS 01/13/2016 03/12/2016 Inactive gabapentin 100 mg capsule RxNorm: 672285 1 Capsule(s) PO QHS 01/13/2016 01/12/2016 Inactive Bydureon 2 mg/0.65 mL subcutaneous pen injector RxNorm: 3388439 1 Milliliter(s) SQ QW 01/12/2016 01/11/2016 Inactive Bydureon 2 mg/0.65 mL subcutaneous pen injector RxNorm: 4352604 2/0.65ml Milligram(s) SQ QW 01/12/2016 05/16/2016 Inactive Bydureon 2 mg/0.65 mL subcutaneous pen injector RxNorm: 1239370 1 Milliliter(s) SQ QW 01/12/2016 01/11/2016 Inactive bumetanide 1 mg tablet RxNorm: 465577 TAKE ONE TABLET BY MOUTH TWICE DAILY 01/10/2016 04/08/2016 Inactive promethazine 25 mg tablet RxNorm: 740977 Tablet(s) Tablet(s) 1 Tablet(s) PO Q6-8H as needed 12/16/2015 04/13/2016 Inactive promethazine 25 mg tablet RxNorm: 107427 Tablet(s) 1 Tablet(s) PO Q6-8H as needed 12/10/2015 12/15/2015 Inactive Trulicity 0.75 mg/0.5 mL subcutaneous pen injector RxNorm: 1078389 INJECT ONE-HALF ML SUBCUTANEOUSLY ONCE A WEEK 12/10/2015 01/11/2016 Inactive glipizide 5 mg tablet RxNorm: 375478 1 Tablet(s) PO daily 12/10/2015 01/17/2016 Inactive bumetanide 1 mg tablet RxNorm: 931493 TAKE ONE TABLET BY MOUTH TWICE DAILY 12/10/2015 01/08/2016 Inactive promethazine 25 mg tablet RxNorm: 032586 Tablet(s) 1 Tablet(s) PO Q6-8H as needed 11/18/2015 12/09/2015 Inactive promethazine 25 mg tablet RxNorm: 054906 1 Tablet(s) PO Q6-8H as needed 11/16/2015 11/17/2015 Inactive glipizide 5 mg tablet RxNorm: 279615 1/2 Tablet(s) PO daily 11/16/2015 12/15/2015 Inactive promethazine 25 mg tablet RxNorm: 653035 Tablet(s) 1 Tablet(s) PO Q6-8H as needed 11/11/2015 12/10/2015 Inactive Trulicity 0.75 mg/0.5 mL subcutaneous pen injector RxNorm: 2235589 .5 Milliliter(s) SQ QW 11/11/2015 01/11/2016 Inactive metoprolol tartrate 50 mg tablet RxNorm: 024490 1 Tablet(s) PO BID 11/11/2015 07/29/2018 Inactive promethazine 25 mg tablet RxNorm: 213470 1 Tablet(s) PO Q6-8H as needed 10/28/2015 11/10/2015 Inactive nystatin 100,000 unit/gram topical cream RxNorm: 433358 1 Gram(s) TOP BID 10/27/2015 No Stop Date Active alprazolam 0.5 mg tablet RxNorm: 562969 1 Tablet(s) PO Q8 as needed 10/27/2015 03/29/2016 Inactive hydrocodone 7.5 mg-acetaminophen 325 mg tablet RxNorm: 285434 1 Tablet(s) PO Q4H as needed 10/27/2015 11/25/2015 Inactive Trulicity 0.75 mg/0.5 mL subcutaneous pen injector RxNorm: 7732692 .5 Milliliter(s) SQ QW 10/27/2015 11/10/2015 Inactive glipizide 5 mg tablet RxNorm: 259105 1 Tablet(s) PO daily 10/27/2015 11/25/2015 Inactive hydrocodone 7.5 mg-acetaminophen 325 mg tablet RxNorm: 218551 1 Tablet(s) PO Q4H as needed 10/26/2015 10/26/2015 Inactive alprazolam 0.5 mg tablet RxNorm: 750019 1 Tablet(s) PO PRN as needed 10/26/2015 10/26/2015 Inactive promethazine 25 mg tablet RxNorm: 701326 1 Tablet(s) PO Q6-8H as needed 10/26/2015 11/15/2015 Inactive glipizide 5 mg tablet RxNorm: 126178 1/2 Tablet(s) PO daily 10/13/2015 10/26/2015 Inactive cefdinir 300 mg capsule RxNorm: 609833 1 Capsule(s) PO BID 10/05/2015 10/14/2015 Inactive prednisone 20 mg tablet RxNorm: 390580 2 Tablet(s) PO daily 10/05/2015 10/09/2015 Inactive Diflucan 150 mg tablet RxNorm: 121926 1 Tablet(s) PO daily 10/05/2015 10/11/2015 Inactive Invokamet 50 mg-500 mg tablet RxNorm: 3327304 1 Tablet(s) PO daily 10/05/2015 11/03/2015 Inactive alprazolam 0.5 mg tablet RxNorm: 238114 1 Tablet(s) PO PRN as needed 10/01/2015 02/23/2016 Inactive promethazine 25 mg tablet RxNorm: 127564 1 Tablet(s) PO Q6-8H as needed 09/30/2015 10/25/2015 Inactive bumetanide 1 mg tablet RxNorm: 331125 TAKE ONE TABLET BY MOUTH TWICE DAILY 09/30/2015 10/29/2015 Inactive bumetanide 1 mg tablet RxNorm: 840665 TAKE ONE TABLET BY MOUTH TWICE DAILY 09/20/2015 12/18/2015 Inactive bumetanide 1 mg tablet RxNorm: 116572 1 Tablet(s) PO BID 09/20/2015 10/19/2015 Inactive metoprolol succinate ER 100 mg tablet,extended release 24 hr RxNorm: 069036 1 Tablet(s) PO daily 09/16/2015 03/13/2016 Inactive spironolactone 50 mg tablet RxNorm: 563304 1 Tablet(s) PO BID 09/16/2015 03/13/2016 Inactive alprazolam 0.5 mg tablet RxNorm: 618417 1 Tablet(s) PO PRN as needed 09/16/2015 10/25/2015 Inactive hydrocodone 7.5 mg-acetaminophen 325 mg tablet RxNorm: 726317 1 Tablet(s) PO Q4H as needed 09/16/2015 10/25/2015 Inactive Invokamet 50 mg-1,000 mg tablet RxNorm: 4930700 1 Tablet(s) PO daily 09/06/2015 09/05/2015 Inactive Invokamet 50 mg-1,000 mg tablet RxNorm: 4829947 1 Tablet(s) PO daily 09/06/2015 12/04/2015 Inactive promethazine 25 mg tablet RxNorm: 492075 TAKE ONE TABLET BY MOUTH EVERY 6 TO 8 HOURS NEEDED 09/01/2015 09/16/2015 Inactive promethazine 25 mg tablet RxNorm: 163024 1 Tablet(s) PO Q6-8H as needed 08/27/2015 09/25/2015 Inactive metoprolol succinate ER 100 mg tablet,extended release 24 hr RxNorm: 809403 1 Tablet(s) PO daily 08/20/2015 09/15/2015 Inactive bumetanide 1 mg tablet RxNorm: 880341 1 Tablet(s) PO BID 08/20/2015 09/18/2015 Inactive Bumex 1 mg tablet RxNorm: 759914 1 Tablet(s) PO BID 08/20/2015 11/15/2015 Inactive Kenalog 40 mg/mL suspension for injection RxNorm: 5508335 Milliliter(s) Inj 08/20/2015 08/20/2015 Inactive bumetanide 1 mg tablet RxNorm: 179341 1 Tablet(s) PO BID 08/20/2015 08/19/2015 Inactive Levaquin 500 mg tablet RxNorm: 334062 1 Tablet(s) PO daily 08/20/2015 08/26/2015 Inactive promethazine 25 mg tablet RxNorm: 424767 1 Tablet(s) PO Q6-8H as needed 08/06/2015 08/26/2015 Inactive metformin 500 mg tablet RxNorm: 494708 Tablet(s) PO 500mg in the morning and 1000mg at night No Start Date 09/16/2015 Inactive alprazolam 0.25 mg tablet RxNorm: 575529 1 Tablet(s) PO daily as needed anxiety No Start Date 08/07/2018 Inactive Lantus Solostar 100 unit/mL (3 mL) subcutaneous insulin pen RxNorm: 331133 Unit(s) SQ UD 10 units QHS x 5 days, if blood sugars are above 200 increase to 15 units x 5 days, if still 200 increase to 20 units. No Start Date 04/13/2016 Inactive alprazolam 0.5 mg tablet RxNorm: 885885 1 Tablet(s) PO PRN as needed No Start Date 09/15/2015 Inactive cyclobenzaprine 10 mg tablet RxNorm: 356554 1 Tablet(s) PO PRN as needed No Start Date 04/05/2016 Inactive lidocaine 4 % topical patch RxNorm: 4447752 1 Patch TOP on for 12 hours and off for 12 hours No Start Date 04/12/2016 Inactive metoprolol tartrate 50 mg tablet RxNorm: 551406 1 Tablet(s) PO BID No Start Date 11/10/2015 Inactive spironolactone 50 mg tablet RxNorm: 682696 1 Tablet(s) PO BID No Start Date 09/15/2015 Inactive hydrocodone 7.5 mg-acetaminophen 325 mg tablet RxNorm: 651144 1 Tablet(s) PO Q4H as needed No Start Date 09/15/2015 Inactive promethazine 25 mg tablet RxNorm: 681895 1 Tablet(s) PO PRN as needed No Start Date 08/05/2015 Inactive Medication Administered Medication Codes Instructions Start Date Status Kenalog 40 mg/mL suspension for injection RxNorm: 7247769 Milliliter 11/01/2018 No longer Active ceftriaxone 500 mg solution for injection RxNorm: 4212975 06/05/2018 No longer Active Kenalog 40 mg/mL suspension for injection RxNorm: 7158329 15.Milliliter 02/19/2018 No longer Active Kenalog 40 mg/mL suspension for injection RxNorm: 2368008 Milliliter 09/05/2017 No longer Active Kenalog 40 mg/mL suspension for injection RxNorm: 4678885 1Milliliter 04/24/2017 No longer Active Kenalog 40 mg/mL suspension for injection RxNorm: 9652176 Milliliter 01/09/2017 No longer Active Kenalog 40 mg/mL suspension for injection RxNorm: 1373735 1Milliliter 04/06/2016 No longer Active Kenalog 40 mg/mL suspension for injection RxNorm: 4121542 1Milliliter 02/28/2016 No longer Active Kenalog 40 mg/mL suspension for injection RxNorm: 7505238 Milliliter 08/20/2015 No longer Active Immunizations Vaccine Codes Date Status Influenza CVX: 141 03/14/2018 completed Influenza CVX: 141 04/24/2017 completed Pneumococcal (Adult) CVX: 33 04/13/2016 completed Influenza CVX: 141 03/30/2016 completed Assessments Condition Codes Effective Dates Other allergic rhinitis ICD-10: J30.89 ICD-9: 477.8 [...] Visit Reason For Visit Effective Dates Notes cough 11/18/2018 cough 11/01/2018 hypertension 08/06/2018 wound [...] Code Item Item Code Result Date %Hba1C Utt404 % HbA1c 47894- 6 8.4 % 06/06/2018 %Hba1C Jvl870 Gluc Ave 194 mg/dL 06/06/2018 Lipid Ord30 CHOL 233 mg/dL 03/14/2018 Lipid Ord30 HDL 38.0 mg/dl 03/14/2018 Lipid Ord30 TRIG 143 mg/dL 03/14/2018 Lipid Ord30 LDL 166 mg/dL 03/14/2018 Lipid Ord30 C/HDL 6.1 Ratio 03/14/2018 %Hba1C Wja740 % HbA1c 07332- 6 9.8 % 03/14/2018 %Hba1C Lbc820 Gluc Ave 235 mg/dL 03/14/2018 Tsh Ord6 TSH (3rd IS) 1.09 uIU/mL 03/14/2018 Comp Metabolic Qtr249 NA 137 mEq/L 03/14/2018 Comp Metabolic Xvi297 K 4.6 mEq/L 03/14/2018 Comp Metabolic Wxc389 CL 100 mEq/L 03/14/2018 Comp Metabolic Qan286 CO2 27.0 mEq/L 03/14/2018 Comp Metabolic Uoq120 ANION GAP 15 03/14/2018 Comp Metabolic Jge223 GLUCOSE 144 mg/dL 03/14/2018 Comp Metabolic Nxa631 Creat 0.5 mg/dL 03/14/2018 Comp Metabolic Qci456 eGFR 138 ml/min/1.73m2 03/14/2018 Comp Metabolic Zbg792 BUN 9 mg/dL 03/14/2018 Comp Metabolic Are258 B/C Ratio 17.6 Ratio 03/14/2018 Comp Metabolic Tkd407 CALCIUM 10.0 mg/dL 03/14/2018 Comp Metabolic Rwu431 ALK PHOS 102 U/L 03/14/2018 Comp Metabolic Djl962 AST(SGOT) 31 U/L 03/14/2018 Comp Metabolic Ure714 ALT(SGPT) 41 U/L 03/14/2018 Comp Metabolic Xtq795 BILI T 0.5 mg/dL 03/14/2018 Comp Metabolic Xui682 ALBUMIN 4.3 g/dL 03/14/2018 Comp Metabolic Grk524 TPRO 6.8 g/dL 03/14/2018 Comp Metabolic Htp543 GLOB 2.5 g/dL 03/14/2018 Comp Metabolic Knm389 A/G Ratio 1.8 Ratio 03/14/2018 Comp Metabolic Pay515 Osmo 275 mOsmo 03/14/2018 Cbc With Differential [...] 29.8 pg 03/14/2018 Cbc With Differential Ord2 [place]% 5.6 % 03/14/2018 Cbc With Differential Ord2 [...] 4.31 K/ul 03/14/2018 Cbc With Differential Ord2 [place] ABS# 0.9 K/ul 03/14/2018 Cbc With Differential Ord2 Eos ABS# 0.2 K/ul 03/14/2018 Cbc With Differential Ord2 Baso ABS# 0.1 K/ul 03/14/2018 %Hba1C Rai108 % HbA1c 01934- 6 8.8 % 06/13/2017 %Hba1C Lec869 Gluc Ave 206 mg/dL 06/13/2017 Tsh Ord6 [...] 30.2 pg 06/13/2017 Cbc With Differential Ord2 [place]% 4.9 % 06/13/2017 Cbc With Differential Ord2 [...] 3.21 K/ul 06/13/2017 Cbc With Differential Ord2 [place] ABS# 0.7 K/ul 06/13/2017 Cbc With Differential Ord2 Eos ABS# 0.2 K/ul 06/13/2017 Cbc With Differential Ord2 Baso ABS# 0.1 K/ul 06/13/2017 Lipid Ord30 CHOL 219 mg/dL 06/13/2017 Lipid Ord30 HDL 40.0 mg/dl 06/13/2017 Lipid Ord30 TRIG 200 mg/dL 06/13/2017 Lipid Ord30 LDL 139 mg/dL 06/13/2017 Lipid Ord30 C/HDL 5.5 Ratio 06/13/2017 Comp Metabolic Fdb924 NA 139 mEq/L 06/13/2017 Comp Metabolic Ttc908 K 4.4 mEq/L 06/13/2017 Comp Metabolic Yjw167 CL 100 mEq/L 06/13/2017 Comp Metabolic Wjk964 CO2 29.0 mEq/L 06/13/2017 Comp Metabolic Fxf580 ANION GAP 14 06/13/2017 Comp Metabolic Rzf255 GLUCOSE 257 mg/dL 06/13/2017 Comp Metabolic Ryd736 Creat 0.5 mg/dL 06/13/2017 Comp Metabolic Yef695 eGFR 145 ml/min/1.73m2 06/13/2017 Comp Metabolic Mrv599 BUN 13 mg/dL 06/13/2017 Comp Metabolic Dsl064 B/C Ratio 26.5 Ratio 06/13/2017 Comp Metabolic Gzn597 CALCIUM 9.7 mg/dL 06/13/2017 Comp Metabolic Pcw455 ALK PHOS 98 U/L 06/13/2017 Comp Metabolic Fuy904 AST(SGOT) 30 U/L 06/13/2017 Comp Metabolic Vml211 ALT(SGPT) 43 U/L 06/13/2017 Comp Metabolic Org707 BILI T 0.5 mg/dL 06/13/2017 Comp Metabolic Hre995 ALBUMIN 4.0 g/dL 06/13/2017 Comp Metabolic Vxc806 TPRO 6.4 g/dL 06/13/2017 Comp Metabolic Moc130 GLOB 2.4 g/dL 06/13/2017 Comp Metabolic Vor738 A/G Ratio 1.7 Ratio 06/13/2017 Comp Metabolic Nwp187 Osmo 286 mOsmo 06/13/2017 %Hba1C Qhh852 % HbA1c 19700- 6 11.1 % 2016 %Hba1C Gza782 Gluc Ave 272 mg/dL 2016 C-Reactive Protein Qnt Crqnt CRP 4.7 mg/dl 2016 Comp Metabolic Fvo420 NA 136 mEq/L 2016 Comp Metabolic Wmr996 K 4.1 mEq/L 2016 Comp Metabolic Ujm013 CL 96 mEq/L 2016 Comp Metabolic Xte976 CO2 29.0 mEq/L 2016 Comp Metabolic Ick111 ANION GAP 15 2016 Comp Metabolic Gvk962 GLUCOSE 291 mg/dL 2016 Comp Metabolic Cui974 Creat 0.4 mg/dL 2016 Comp Metabolic Kra915 eGFR 165 ml/min/1.73m2 2016 Comp Metabolic Gbh571 BUN 11 mg/dL 2016 Comp Metabolic Nwr548 B/C Ratio 25.0 Ratio 2016 Comp Metabolic Rdy136 CALCIUM 9.4 mg/dL 2016 Comp Metabolic Afk032 ALK PHOS 111 U/L 2016 Comp Metabolic Xrp353 AST(SGOT) 46 U/L 2016 Comp Metabolic Xlx668 ALT(SGPT) 60 U/L 2016 Comp Metabolic Rch111 BILI T 0.4 mg/dL 2016 Comp Metabolic Dsv798 ALBUMIN 4.0 g/dL 2016 Comp Metabolic Bdw757 TPRO 6.5 g/dL 2016 Comp Metabolic Ycn336 GLOB 2.6 g/dL 2016 Comp Metabolic Rxd409 A/G Ratio 1.5 Ratio 2016 Comp Metabolic Ggh199 Osmo 282 mOsmo 2016 Cbc With Differential [...] 30.5 pg 2016 Cbc With Differential Ord2 [place]% 4.7 % 2016 Cbc With Differential Ord2 [...] 3.53 K/ul 2016 Cbc With Differential Ord2 [place] ABS# 0.7 K/ul 2016 Cbc With Differential Ord2 Eos ABS# 0.2 K/ul 2016 Cbc With Differential Ord2 Baso ABS# 0.1 K/ul 2016 Lipid Ord30 CHOL 228 mg/dL 05/05/2016 Lipid Ord30 HDL 42.0 mg/dl 05/05/2016 Lipid Ord30 TRIG 168 mg/dL 05/05/2016 Lipid Ord30 LDL 152 mg/dL 05/05/2016 Lipid Ord30 C/HDL 5.4 Ratio 05/05/2016 Comp Metabolic Wpp596 NA 135 mEq/L 05/05/2016 Comp Metabolic Nhg027 K 4.1 mEq/L 05/05/2016 Comp Metabolic Rpw822 CL 99 mEq/L 05/05/2016 Comp Metabolic Hlp741 CO2 29.0 mEq/L 05/05/2016 Comp Metabolic Bjz510 ANION GAP 11 05/05/2016 Comp Metabolic Fqa099 GLUCOSE 229 mg/dL 05/05/2016 Comp Metabolic Saf328 Creat 0.5 mg/dL 05/05/2016 Comp Metabolic Jmk785 eGFR 150 ml/min/1.73m2 05/05/2016 Comp Metabolic Vai421 BUN 14 mg/dL 05/05/2016 Comp Metabolic Vwf474 B/C Ratio 29.2 Ratio 05/05/2016 Comp Metabolic Wlh470 CALCIUM 9.1 mg/dL 05/05/2016 Comp Metabolic Cno398 ALK PHOS 112 U/L 05/05/2016 Comp Metabolic Jsq458 AST(SGOT) 59 U/L 05/05/2016 Comp Metabolic Juj634 ALT(SGPT) 63 U/L 05/05/2016 Comp Metabolic Goj472 BILI T 0.7 mg/dL 05/05/2016 Comp Metabolic Paz564 ALBUMIN 3.8 g/dL 05/05/2016 Comp Metabolic Vhs985 TPRO 6.5 g/dL 05/05/2016 Comp Metabolic Gxx125 GLOB 2.7 g/dL 05/05/2016 Comp Metabolic Yji999 A/G Ratio 1.4 Ratio 05/05/2016 Comp Metabolic Ttb051 Osmo 278 mOsmo 05/05/2016 Cbc With Differential [...] 30.2 pg 05/05/2016 Cbc With Differential Ord2 [place]% 4.4 % 05/05/2016 Cbc With Differential Ord2 [...] 3.59 K/ul 05/05/2016 Cbc With Differential Ord2 [place] ABS# 0.7 K/ul 05/05/2016 Cbc With Differential Ord2 Eos ABS# 0.1 K/ul 05/05/2016 Cbc With Differential Ord2 Baso ABS# 0.1 K/ul 05/05/2016 %Hba1C Tfe956 % HbA1c 36086- 6 10.4 % 05/05/2016 %Hba1C Rvm198 Gluc Ave 252 mg/dL 05/05/2016 Hcg Beta Subunit Qual Serum 504517 B-HCG QUALITATIVE NEGATIVE 12/27/2015 GC/CHL PRB 9805332 Chl trach DNA Negative 12/25/2015 GC/CHL PRB 2990272 GC PROBE Negative 12/25/2015 Comp. Metabolic Panel (14) 48228 GLUCOSE 136 mg/dL 12/17/2015 Comp. Metabolic Panel (14) 50582 BUN 9 mg/dL 12/17/2015 Comp. Metabolic Panel (14) 03889 CREATININE 0.67 mg/dL 12/17/2015 Comp. Metabolic Panel (14) 23596 SODIUM 136 mmol/L 12/17/2015 Comp. Metabolic Panel (14) 95710 POTASSIUM 4.4 mmol/L 12/17/2015 Comp. Metabolic Panel (14) 04401 CHLORIDE 95 mmol/L 12/17/2015 Comp. Metabolic Panel (14) 41446 CARBON DIOXIDE 28 mmol/L 12/17/2015 Comp. Metabolic Panel (14) 22178 CALCIUM 10.1 mg/dL 12/17/2015 Comp. Metabolic Panel (14) 91095 TOTAL PROTEIN 7.0 g/dL 12/17/2015 Comp. Metabolic Panel (14) 58538 ALBUMIN 4.5 g/dL 12/17/2015 Comp. Metabolic Panel (14) 47137 ALKALINE PHOSPHATASE 87 U/L 12/17/2015 Comp. Metabolic Panel (14) 73241 TOTAL BILIRUBIN 0.5 mg/dL 12/17/2015 Comp. Metabolic Panel (14) 51222 SGOT (AST) 38 U/L 12/17/2015 Comp. Metabolic Panel (14) 64757 SGPT (ALT) 41 U/L 12/17/2015 Comp. Metabolic Panel (14) 07377 eGFR (mL/min/1.73m2) >60 12/17/2015 Comp. Metabolic Panel (14) 65996 12/17/2015 Cbc With Differential/Platelet 10190 WBC 16.67 thou/uL 12/17/2015 Cbc With Differential/Platelet 93895 RBC 5.11 mil/uL 12/17/2015 Cbc With Differential/Platelet 34493 HEMOGLOBIN 14.8 g/dL 12/17/2015 Cbc With Differential/Platelet 39640 HEMATOCRIT 48.7 % 12/17/2015 Cbc With Differential/Platelet 72824 MCV 95.4 fL 12/17/2015 Cbc With Differential/Platelet 38446 MCH 29.0 pg 12/17/2015 Cbc With Differential/Platelet 16413 MCHC 30.4 g/dL 12/17/2015 Cbc With Differential/Platelet 39382 RDW-CV 14.6 % 12/17/2015 Cbc With Differential/Platelet 22824 PLATELET COUNT 471 thou/uL 12/17/2015 Cbc With Differential/Platelet 94170 NEUTROPHIL % 71.3 % 12/17/2015 Cbc With Differential/Platelet 60031 LYMPHOCYTE % 22.4 % 12/17/2015 Cbc With Differential/Platelet 32308 MONOCYTE % 4.8 % 12/17/2015 Cbc With Differential/Platelet 57368 EOS % 0.7 % 12/17/2015 Cbc With Differential/Platelet 81087 BASO % 0.7 % 12/17/2015 Cbc With Differential/Platelet 01393 NEUTROPHIL ABS # 11.89 thou/uL 12/17/2015 Cbc With Differential/Platelet 85409 LYMPH ABS # 3.73 thou/uL 12/17/2015 Cbc With Differential/Platelet 12653 MONOCYTE ABS # 0.80 thou/uL 12/17/2015 Cbc With Differential/Platelet 02924 EOS ABS # 0.12 thou/uL 12/17/2015 Cbc With Differential/Platelet 81789 BASO ABS # 0.12 thou/uL 12/17/2015 Comp. [...] Hgb A1C With Eag Estimation GLYCOHEMOGLOBIN A1C 10327-4 8.1 % 11/13/2015 Hgb A1C With Eag Estimation ESTIMATED AVG GLUCOSE 186 mg/dL 11/13/2015 Comp. Metabolic Panel (14) 15561 GLUCOSE 84 mg/dL 09/11/2015 Comp. Metabolic Panel (14) 95972 BUN 11 mg/dL 09/11/2015 Comp. Metabolic Panel (14) 17378 CREATININE 0.56 mg/dL 09/11/2015 Comp. Metabolic Panel (14) 71999 SODIUM 142 mmol/L 09/11/2015 Comp. Metabolic Panel (14) 18238 POTASSIUM 4.3 mmol/L 09/11/2015 Comp. Metabolic Panel (14) 91114 CHLORIDE 98 mmol/L 09/11/2015 Comp. Metabolic Panel (14) 26620 CARBON DIOXIDE 27 mmol/L 09/11/2015 Comp. Metabolic Panel (14) 42575 CALCIUM 10.1 mg/dL 09/11/2015 Comp. Metabolic Panel (14) 76304 TOTAL PROTEIN 7.2 g/dL 09/11/2015 Comp. Metabolic Panel (14) 00840 ALBUMIN 4.7 g/dL 09/11/2015 Comp. Metabolic Panel (14) 85981 ALKALINE PHOSPHATASE 109 U/L 09/11/2015 Comp. Metabolic Panel (14) 65340 TOTAL BILIRUBIN 0.3 mg/dL 09/11/2015 Comp. Metabolic Panel (14) 45104 SGOT (AST) 53 U/L 09/11/2015 Comp. Metabolic Panel (14) 23545 SGPT (ALT) 53 U/L 09/11/2015 Comp. Metabolic Panel (14) 02295 eGFR (mL/min/1.73m2) >60 09/11/2015 Comp. Metabolic Panel (14) 13419 09/11/2015 Comp. Metabolic Panel (14) 42117 GLUCOSE 183 mg/dL 08/11/2015 Comp. Metabolic Panel (14) 54284 BUN 10 mg/dL 08/11/2015 Comp. Metabolic Panel (14) 70889 CREATININE 0.46 mg/dL 08/11/2015 Comp. Metabolic Panel (14) 74020 SODIUM 138 mmol/L 08/11/2015 Comp. Metabolic Panel (14) 68793 POTASSIUM 4.0 mmol/L 08/11/2015 Comp. Metabolic Panel (14) 90670 CHLORIDE 98 mmol/L 08/11/2015 Comp. Metabolic Panel (14) 83234 CARBON DIOXIDE 29 mmol/L 08/11/2015 Comp. Metabolic Panel (14) 03999 CALCIUM 9.4 mg/dL 08/11/2015 Comp. Metabolic Panel (14) 19676 TOTAL PROTEIN 6.8 g/dL 08/11/2015 Comp. Metabolic Panel (14) 29215 ALBUMIN 4.4 g/dL 08/11/2015 Comp. Metabolic Panel (14) 69984 ALKALINE PHOSPHATASE 118 U/L 08/11/2015 Comp. Metabolic Panel (14) 07225 TOTAL BILIRUBIN <0.3 mg/dL 08/11/2015 Comp. Metabolic Panel (14) 89722 SGOT (AST) 41 U/L 08/11/2015 Comp. Metabolic Panel (14) 46926 SGPT (ALT) 55 U/L 08/11/2015 Comp. Metabolic Panel (14) 68407 eGFR (mL/min/1.73m2) >60 08/11/2015 Comp. Metabolic Panel (14) 19594 08/11/2015 Cbc With Differential/Platelet 74709 WBC 11.76 thou/uL 08/11/2015 Cbc With Differential/Platelet 23408 RBC 4.98 mil/uL 08/11/2015 Cbc With Differential/Platelet 30331 HEMOGLOBIN 14.2 g/dL 08/11/2015 Cbc With Differential/Platelet 41849 HEMATOCRIT 46.7 % 08/11/2015 Cbc With Differential/Platelet 01433 MCV 93.8 fL 08/11/2015 Cbc With Differential/Platelet 49062 MCH 28.5 pg 08/11/2015 Cbc With Differential/Platelet 51053 MCHC 30.4 g/dL 08/11/2015 Cbc With Differential/Platelet 53510 RDW-CV 14.3 % 08/11/2015 Cbc With Differential/Platelet 52267 PLATELET COUNT 382 thou/uL 08/11/2015 Cbc With Differential/Platelet 83274 NEUTROPHIL % 67.3 % 08/11/2015 Cbc With Differential/Platelet 84247 LYMPHOCYTE % 24.0 % 08/11/2015 Cbc With Differential/Platelet 73726 MONOCYTE % 6.0 % 08/11/2015 Cbc With Differential/Platelet 35946 EOS % 1.6 % 08/11/2015 Cbc With Differential/Platelet 00537 BASO % 1.0 % 08/11/2015 Cbc With Differential/Platelet 01941 NEUTROPHIL ABS # 7.91 thou/uL 08/11/2015 Cbc With Differential/Platelet 03490 LYMPH ABS # 2.82 thou/uL 08/11/2015 Cbc With Differential/Platelet 85425 MONOCYTE ABS # 0.71 thou/uL 08/11/2015 Cbc With Differential/Platelet 73762 EOS ABS # 0.19 thou/uL 08/11/2015 Cbc With Differential/Platelet 61758 BASO ABS # 0.12 thou/uL 08/11/2015 Tsh 983722 TSH 3.220 uIU/mL 08/11/2015 Lipid Panel 58244 CHOLESTEROL 193 mg/dL 08/11/2015 Lipid Panel 39671 TRIGLYCERIDES 192 mg/dL 08/11/2015 Lipid Panel 89416 HDL 38 mg/dL 08/11/2015 Lipid Panel 95531 CHOLESTEROL/HDL 5.08 08/11/2015 Lipid Panel 50524 LDL (CALCULATED) 117 mg/dL 08/11/2015 Lipid Panel 87882 LDL/HDL 3.08 08/11/2015 Lipid Panel 84261 PHENOTYPE TYPE IV BORDERLINE 08/11/2015 Review of Systems System Result Effective Dates Constitutional recent illness 11/18/2018 Constitutional No chills [...] Result Effective Dates Notes Full Exam - ENT Constitutional general appearance [...] developed 08/06/2018 None Full Exam - General 1994 Constitutional general appearance Overall: in no acute distress 08/06/2018 None Full Exam - General 1994 Constitutional general appearance Overall: well nourished 08/06/2018 None Full Exam - General 1995 Eyes conjunctiva/eyelids Overall: conjunctiva clear 08/06/2018 None Full Exam - General 1995 Eyes conjunctiva/eyelids Overall: cornea clear 08/06/2018 None Full Exam - General 1994 Eyes conjunctiva/eyelids Overall: eyelids normal 08/06/2018 None Full Exam - General 1995 Ears/Nose/Throat lips/teeth/gingiva Overall: benign lips 08/06/2018 None Full Exam - General 1995 [...] Procedure Codes Date THER/PROPH/DIAG INJ SC/IM CPT-4: 06330 11/01/2018 TRIAMCINOLONE ACET INJ NOS CPT-4: J3301 11/01/2018 THER/PROPH/DIAG INJ SC/IM CPT-4: 39564 06/05/2018 ROCEPHIN, PER 250 MG CPT- 4: J0696 06/05/2018 REMOVAL OF SKIN TAGS <W/15 CPT-4: 60598 03/14/2018 FLU VAC NO PRSV 4 PRECIOUS 3 YRS+ CPT-4: 50391 03/14/2018 IMMUNIZATION ADMIN CPT- 4: 99394 03/14/2018 TRIAMCINOLONE ACET INJ NOS CPT-4: J3301 02/19/2018 THER/PROPH/DIAG INJ SC/IM CPT-4: 12631 02/19/2018 THER/PROPH/DIAG INJ SC/IM CPT-4: 66574 09/05/2017 TRIAMCINOLONE ACET INJ NOS CPT-4: J3301 09/05/2017 IMMUNIZATION ADMIN CPT- 4: 62224 04/24/2017 FLU VAC NO PRSV 4 PRECIOUS 3 YRS+ CPT-4: 47187 04/24/2017 DRAIN/INJECT JOINT/BURSA CPT-4: 58055 04/24/2017 TRIAMCINOLONE ACET INJ NOS CPT-4: J3301 04/24/2017 THER/PROPH/DIAG INJ SC/IM CPT-4: 06075 01/09/2017 TRIAMCINOLONE ACET INJ NOS CPT-4: J3301 01/09/2017 THER/PROPH/DIAG INJ SC/IM CPT-4: 47665 04/13/2016 Pneumococcal Polysaccharide Vaccine, 23-Valent, Ad CPT-4: 12953 04/13/2016 INJECT TRIGGER POINTS 3/> CPT-4: 31162 04/06/2016 TRIAMCINOLONE ACET INJ NOS CPT-4: J3301 04/06/2016 IMMUNIZATION ADMIN CPT- 4: 32912 03/30/2016 IIV4 FLU VACC NO PRESERV ID SNOMED CT: 35121162 CPT-4: 91536 03/30/2016 TRIAMCINOLONE ACET INJ NOS CPT-4: J3301 02/28/2016 THER/PROPH/DIAG INJ SC/IM CPT-4: 49888 02/28/2016 TRIAMCINOLONE ACET INJ NOS CPT-4: J3301 08/20/2015 Vital Signs Date Vital 11/18/2018 Blood Pressure 1: 120/72 Code: 8480-6 BMI: 41.6 Code: 23638-7 Heart Rate 1: 97 bpm Height: 4'11" SpO2: 96% Weight: 206 lbs 11/01/2018 Blood Pressure 1: 134/70 Code: 8480-6 BMI: 43.0 Code: 06522-0 Heart Rate 1: 110 bpm Height: 4'11" SpO2: 97% Temperature: 37.3 (C) / 99.1 (F) Weight: 213 lbs 08/06/2018 Blood Pressure 1: 130/80 Code: 8480-6 BMI: 42.8 Code: 25513-5 Heart Rate 1: 110 bpm Height: 4'11" [...] 214 lbs 06/17/2018 Blood Pressure 1: 128/74 Code: 8480-6 Heart Rate 1: 112 bpm Height: 4'11" SpO2: 97% Temperature: 36.9 (C) / 98.4 (F) Weight: 06/05/2018 Blood Pressure 1: 127 Code: 8480-6 BMI: 42.4 Code: 31530-5 Heart Rate 1: 78 bpm Height: 4'11" SpO2: 97% Weight: 210 lbs 03/26/2018 Blood Pressure 1: 128 Code: 8480-6 BMI: 43.0 Code: 81685-7 Heart Rate 1: 120 bpm Height: 4'11" SpO2: 97% Weight: 213 lbs 03/14/2018 Blood Pressure 1: 120 Code: 8480-6 BMI: 43.0 Code: 94786-7 Heart Rate 1: 114 bpm Height: 4'11" SpO2: 95% Weight: 213 lbs 03/07/2018 Blood Pressure 1: 132 Code: 8480-6 BMI: 43.8 Code: 48581-6 Heart Rate 1: 123 bpm Height: 4'11" [...] 1: 134/86 Code: 8480-6 BMI: 45.4 Code: 14567-8 Heart Rate 1: 108 bpm Height: 4'11" SpO2: 95% Weight: 225 lbs 06/07/2017 Blood Pressure 1: 13274 Code: 8480-6 Heart Rate 1: 99 bpm Height: 4'11" SpO2: 95% 04/24/2017 Blood Pressure 1: 132/8096 Code: 8480-6 BMI: 47.7 Code: 50232-6 Heart Rate 1: 96 bpm Height: 4'11" Weight: 236 lbs 01/09/2017 Blood Pressure 1: 122/74 Code: 8480-6 BMI: 46.0 Code: 03818-4 Heart Rate 1: 114 bpm Height: 4'11" SpO2: 98% Temperature: 37.1 (C) / 98.7 (F) Weight: 228 lbs 10/30/2016 Blood Pressure 1: 124 Code: 8480-6 BMI: 49.1 Code: 19405-5 Heart Rate 1: 90 bpm Height: 4'11" SpO2: 97% Weight: 243 lbs 10/09/2016 Blood Pressure 1: 124 Code: 8480-6 BMI: 49.3 Code: 58298-6 Heart Rate 1: 91 bpm Height: 4'11" SpO2: 98% Weight: 244 lbs 09/12/2016 Blood Pressure 1: 12880 Code: 8480-6 BMI: 49.1 Code: 73964-1 Heart Rate 1: 94 bpm Height: 4'11" SpO2: 95% Weight: 243 lbs 09/05/2016 Blood Pressure 1: 11874 Code: 8480-6 BMI: 49.1 Code: 33183-6 Heart Rate 1: 100 bpm Height: 4'11" SpO2: 97% Weight: 243 lbs 06/16/2016 Blood Pressure 1: 120/62 Code: 8480-6 BMI: 49.1 Code: 41923-1 Heart Rate 1: 100 bpm Height: 4'11" SpO2: 96% Temperature: 36.7 (C) / 98.0 (F) Weight: 243 lbs 06/13/2016 Blood Pressure 1: 120/70 Code: 8480-6 Heart Rate 1: 117 bpm SpO2: 97% 05/19/2016 Blood Pressure 1: 130/64 Code: 8480-6 BMI: 49.1 Code: 33169-6 Heart Rate 1: 101 bpm Height: 4'11" SpO2: 96% Weight: 243 lbs 05/08/2016 Blood Pressure 1: 128/76 Code: 8480-6 Heart Rate 1: 119 bpm Height: SpO2: 97% Weight: 05/05/2016 Blood Pressure 1: 124/76 Code: 8480-6 BMI: 49.1 Code: 92825-3 Heart Rate 1: 75 bpm Height: 4'11" SpO2: 99% Weight: 243 lbs 04/10/2016 Blood Pressure 1: 140/80 Code: 8480-6 BMI: 49.7 Code: 62684-5 Heart Rate 1: 88 bpm Height: 4'11" SpO2: 95% Weight: 246 lbs 04/06/2016 Blood Pressure 1: 134/82 Code: 8480-6 BMI: 75.1 Code: 13682-2 Heart Rate 1: 72 bpm Height: 4' SpO2: 96% Weight: 246 lbs 03/08/2016 Blood Pressure 1: 126/72 Code: 8480-6 BMI: 49.7 Code: 16157-1 Heart Rate 1: 89 bpm Height: 4'11" SpO2: 97% Weight: 246 lbs 02/28/2016 Blood Pressure 1: 124/68 Code: 8480-6 BMI: 49.7 Code: 41794-4 Heart Rate 1: 89 bpm Height: 4'11" SpO2: 96% Weight: 246 lbs 01/18/2016 Blood Pressure 1: 142/78 Code: 8480-6 BMI: 48.9 Code: 00214-4 Heart Rate 1: 97 bpm Height: 4'11" SpO2: 97% Weight: 242 lbs 12/23/2015 Blood Pressure 1: 124/74 Code: 8480-6 BMI: 48.9 Code: 95608-3 Heart Rate 1: 106 bpm Height: 4'11" SpO2: 96% Weight: 242 lbs 12/16/2015 Blood Pressure 1: 116/82 Code: 8480-6 BMI: 48.3 Code: 39893-9 Heart Rate 1: 111 bpm Height: 4'11" SpO2: 97% Weight: 239 lbs 11/11/2015 Blood Pressure 1: 130/80 Code: 8480-6 BMI: 49.7 Code: 28382-0 Heart Rate 1: 105 bpm Height: 4'11" SpO2: 96% Weight: 246 lbs 10/27/2015 Blood Pressure 1: 122/70 Code: 8480-6 BMI: 49.5 Code: 52007-6 Heart Rate 1: 107 bpm Height: 4'11" SpO2: 96% Weight: 245 lbs 10/13/2015 Blood Pressure 1: 140/82 Code: 8480-6 BMI: 50.9 Code: 03163-1 Heart Rate 1: 111 bpm Height: 4'11" SpO2: 96% Weight: 252 lbs 10/05/2015 Blood Pressure 1: 118/70 Code: 8480-6 BMI: 51.1 Code: 00131-9 Heart Rate 1: 120 bpm Height: 4'11" SpO2: 97% Weight: 253 lbs 09/01/2015 Blood Pressure 1: 132/82 Code: 8480-6 BMI: 50.1 Code: 15945-4 Heart Rate 1: 110 bpm Height: 4'11" SpO2: 96% Weight: 248 lbs 08/20/2015 Blood Pressure 1: 132/78 Code: 8480-6 BMI: 51.7 Code: 65953-8 Heart Rate 1: 100 bpm Height: 4'11" Weight: 256 lbs 08/03/2015 Blood Pressure 1: 148/92 Code: 8480-6 BMI: 52.1 Code: 40600-4 Heart Rate 1: 100 bpm Height: 4'11" SpO2: 97% Weight: 258 lbs Functional Status No Functional Status data History of Present Illness Symptom Name Status Result Effective Date Notes Location in the throat 11/18/2018 None Quality [...] Codes Date EST. PATIENT, LEVEL III Diagnosis: Other allergic rhinitis[ICD10: J30.89] Diagnosis: Simple chronic bronchitis[ICD10: J41.0] [facility] CPT-4: 79774 11/18/2018 [id number] EST. PATIENT, LEVEL III Diagnosis: Acute laryngopharyngitis[ICD10: J06.0] Diagnosis: Other allergic rhinitis[ICD10: J30.89] [facility] CPT- 4: 34479 11/01/2018 [id number] EST. PATIENT, LEVEL III Diagnosis: Essential (primary) hypertension[ICD10: I10] [facility] CPT-4: 36573 08/06/2018 26741 EST. PATIENT, LEVEL III Diagnosis: Hidradenitis suppurativa[ICD10: L73.2] [facility], [facility] CPT- 4: 83414 07/22/2018 [id number] EST. PATIENT, LEVEL III Diagnosis: Hidradenitis suppurativa[ICD10: L73.2] Diagnosis: Encounter for other specified surgical aftercare[ICD10: Z48.89] [facility] MD, [facility] CPT-4: 13896 07/18/2018 42929 EST. PATIENT, LEVEL III Diagnosis: Cellulitis of right axilla[ICD10: L03.111] Diagnosis: Diarrhea, unspecified[ICD10: R19.7] Gloria Hess MD, [facility] CPT- 4: 94177 06/28/2018 ([id number]) 22407 EST. PATIENT, LEVEL II Diagnosis: Cellulitis of right axilla[ICD10: L03.111] Tamy Hess MD, [facility] CPT-4: 28613 06/17/2018 15725 EST. PATIENT, LEVEL III Diagnosis: Cellulitis of right axilla[ICD10: L03.111] Diagnosis: Type 2 diabetes mellitus with hyperglycemia[ICD10: E11.65] Gloria Hess MD, [facility] CPT-4: 71088 06/05/2018 46266 EST. PATIENT, LEVEL III Diagnosis: Gastro-esophageal reflux disease without esophagitis[ICD10: K21.9] Diagnosis: Other allergic rhinitis[ICD10: J30.89] Diagnosis: Cough[ICD10: R05] Gloria Hess MD, [facility] CPT-4: 90150 03/26/2018 ([id number]) 96498 EST. PATIENT, LEVEL III Diagnosis: Cough[ICD10: R05] Gloria Hess MD, [facility] CPT-4: 85815 03/14/2018 59698 EST. PATIENT, LEVEL IV Diagnosis: Acute laryngopharyngitis[ICD10: J06.0] Diagnosis: Other allergic rhinitis[ICD10: J30.89] Diagnosis: Cough[ICD10: R05] Gloria Hess MD, [facility] CPT-4: 11642 03/07/2018 79427 EST. PATIENT, LEVEL IV Diagnosis: Acute bronchitis due to other specified organisms[ICD10: J20.8] Diagnosis: Acute laryngopharyngitis[ICD10: J06.0] Gloria Hess MD, [facility] CPT- 4: 88240 02/19/2018 50755 EST. PATIENT, LEVEL IV Diagnosis: Candidiasis of vulva and vagina[ICD10: B37.3] Diagnosis: Rash and other nonspecific skin eruption[ICD10: R21] Gloria Hess MD, [facility] CPT-4: 45467 01/08/2018 50674 EST. PATIENT, LEVEL III Diagnosis: Sacrococcygeal disorders, not elsewhere classified[ICD10: M53.3] Diagnosis: Low back pain[ICD10: M54.5] Gloria Hess MD, [facility] CPT-4: 91642 11/23/2017 91431 EST. PATIENT, LEVEL III Diagnosis: Acute laryngopharyngitis[ICD10: J06.0] Diagnosis: Other allergic rhinitis[ICD10: J30.89] Diagnosis: Acute bronchitis due to other specified organisms[ICD10: J20.8] Gloria Hess MD, [facility] CPT-4: 62441 09/05/2017 91254 EST. PATIENT, LEVEL III Diagnosis: Pain in left foot[ICD10: M79.672] Diagnosis: Rash and other nonspecific skin eruption[ICD10: R21] Diagnosis: Candidiasis of vulva and vagina[ICD10: B37.3] Diagnosis: Localized edema[ICD10: R60.0] Diagnosis: Dyspnea, unspecified[ICD10: R06.00] Gloria Hess MD, [facility] CPT- 4: 03582 06/07/2017 22010 EST. PATIENT, LEVEL III Diagnosis: Low back pain[ICD10: M54.5] Diagnosis: Sacroiliitis, not elsewhere classified[ICD10: M46.1] Diagnosis: Pain in left foot[ICD10: M79.672] Diagnosis: VACCIN FOR INFLUENZA[ICD10: Z23] Gloria Hess MD, [facility] CPT-4: 25798 04/24/2017 07803 EST. PATIENT, LEVEL III Diagnosis: Acute suppurative otitis media without spontaneous rupture of ear drum, right ear[ICD10: H66.001] Diagnosis: Other allergic rhinitis[ICD10: J30.89] Gloria Hess MD, [facility] CPT- 4: 71626 01/09/2017 15085 EST. PATIENT, LEVEL IV Diagnosis: Candidiasis of vulva and vagina[ICD10: B37.3] Diagnosis: Type 2 diabetes mellitus with hyperglycemia[ICD10: E11.65] Gloria Hess MD, [facility] CPT-4: 47827 10/30/2016 31016 EST. PATIENT, LEVEL III Diagnosis: Candidiasis of vulva and vagina[ICD10: B37.3] Diagnosis: Type 2 diabetes mellitus with hyperglycemia[ICD10: E11.65] Gloria Hess MD, [facility] CPT-4: 56693 10/09/2016 53691 EST. PATIENT, LEVEL IV Diagnosis: Umbilical hernia without obstruction or gangrene[ICD10: K42.9] Gloria Hess MD, [facility] CPT-4: 20223 09/12/2016 49685 EST. PATIENT, LEVEL III Diagnosis: Epigastric pain[ICD10: R10.13] Diagnosis: Candidiasis of vulva and vagina[ICD10: B37.3] Diagnosis: Type 2 diabetes mellitus with hyperglycemia[ICD10: E11.65] Gloria Hess MD, [facility] CPT-4: 03991 09/05/2016 17914 EST. PATIENT, LEVEL III Diagnosis: Acute laryngopharyngitis[ICD10: J06.0] Diagnosis: Other allergic rhinitis[ICD10: J30.89] Gloria Hess MD, [facility] CPT- 4: 43754 06/16/2016 59004 EST. PATIENT, LEVEL III Diagnosis: Type 2 diabetes mellitus with hyperglycemia[ICD10: E11.65] Diagnosis: Other obesity due to excess calories[ICD10: E66.09] Gloria Hess MD, [facility] CPT-4: 13524 06/13/2016 42868 EST. PATIENT, LEVEL III Diagnosis: Type 2 diabetes mellitus with hyperglycemia[ICD10: E11.65] Diagnosis: Other obesity due to excess calories[ICD10: E66.09] Gloria Hess MD, [facility] CPT-4: 47531 05/19/2016 01424 EST. PATIENT, LEVEL III Diagnosis: Type 2 diabetes mellitus with hyperglycemia[ICD10: E11.65] Diagnosis: Other obesity due to excess calories[ICD10: E66.09] Gloria Hess MD [facility] CPT-4: 17130 05/08/2016 03812 EST. PATIENT, LEVEL III Diagnosis: Type 2 diabetes mellitus without complications[ICD10: E11.9] Gloria Hess MD [facility] CPT-4: 94384 05/05/2016 56823 EST. PATIENT, LEVEL III Diagnosis: Pain in right shoulder[ICD10: M25.511] Gloria Hess MD [facility] CPT- 4: 48333 04/10/2016 96646 EST. PATIENT, LEVEL III Diagnosis: Pain in right shoulder[ICD10: M25.511] Diagnosis: Other muscle spasm[ICD10: M62.838] Diagnosis: Type 2 diabetes mellitus without complications[ICD10: E11.9] Gloria Hess MD [facility] CPT-4: 15526 04/06/2016 65430 EST. PATIENT, LEVEL IV Diagnosis: Acute bronchitis due to other specified organisms[ICD10: J20.8] Diagnosis: Other acute sinusitis[ICD10: J01.80] Diagnosis: Acne vulgaris[ICD10: L70.0] Diagnosis: Morbid (severe) obesity due to excess calories[ICD10: E66.01] Gloria Hess MD [facility] CPT-4: 21557 03/08/2016 60389 EST. PATIENT, LEVEL IV Diagnosis: Other acute sinusitis[ICD10: J01.80] Diagnosis: Localized enlarged lymph nodes[ICD10: R59.0] Gloria Hess MD [facility] CPT-4: 55291 02/28/2016 89035 EST. PATIENT, LEVEL III Diagnosis: Type 2 diabetes mellitus without complications[ICD10: E11.9] Gloria Hess MD [facility] CPT-4: 60210 01/18/2016 ([id number]) PREV VISIT EST AGE 40-64 Diagnosis: Encounter for gynecological examination (general) (routine) without abnormal findings[ICD10: Z01.419] Diagnosis: Excessive and frequent menstruation with irregular cycle[ICD10: N92.1] Gloria Hess MD [facility] CPT-4: 68994 12/23/2015 02217 EST. PATIENT, LEVEL III Diagnosis: Type 2 diabetes mellitus without complications[ICD10: E11.9] Gloria Hess MD, [facility] CPT-4: 48693 12/16/2015 18605 EST. PATIENT, LEVEL III Diagnosis: Type 2 diabetes mellitus without complications[ICD10: E11.9] Diagnosis: Other obesity due to excess calories[ICD10: E66.09] Gloria Hess MD, [facility] CPT-4: 51505 11/11/2015 30306 EST. PATIENT, LEVEL III Diagnosis: Type 2 diabetes mellitus without complications[ICD10: E11.9] Diagnosis: Other obesity due to excess calories[ICD10: E66.09] Gloria Hess MD, [facility] CPT-4: 46201 10/27/2015 86297 EST. PATIENT, LEVEL III Diagnosis: Type 2 diabetes mellitus without complications[ICD10: E11.9] Diagnosis: Other obesity due to excess calories[ICD10: E66.09] Diagnosis: Other insomnia[ICD10: G47.09] Gloria Hess MD, [facility] CPT-4: 75725 10/13/2015 58482 EST. PATIENT, LEVEL IV Diagnosis: Acute recurrent maxillary sinusitis[ICD10: J01.01] Diagnosis: Allergic rhinitis due to pollen[ICD10: J30.1] Diagnosis: Other obesity due to excess calories[ICD10: E66.09] Gloria Hess MD, [facility] CPT-4: 69666 10/05/2015 00348 EST. PATIENT, LEVEL IV Diagnosis: Polycystic ovarian syndrome[ICD10: E28.2] Diagnosis: Other skin changes[ICD10: R23.8] Diagnosis: Other abnormal glucose[ICD10: R73.09] Gloria Hess MD, [facility] CPT- 4: 37803 09/01/2015 69353 EST. PATIENT, LEVEL IV Diagnosis: Acute recurrent maxillary sinusitis[ICD10: J01.01] Diagnosis: Morbid (severe) obesity due to excess calories[ICD10: E66.01] Diagnosis: Essential (primary) hypertension[ICD10: I10] Diagnosis: Allergic rhinitis due to pollen[ICD10: J30.1] Gloria Hess MD, [facility] CPT-4: 09568 08/20/2015 ([id number]) OFFICE VISIT, NEW - LEVEL 4 Diagnosis: Essential (primary) hypertension[ICD10: I10] Diagnosis: Obstructive sleep apnea (adult) (pediatric)[ICD10: G47.33] Diagnosis: Other insomnia[ICD10: G47.09] Diagnosis: Snoring[ICD10: R06.83] Diagnosis: Morbid (severe) obesity due to excess calories[ICD10: E66.01] Gloria Hess MD, [facility] CPT-4: 29312 08/03/2015 Plan of Care Planned Activity Notes Codes Status Date Visit Plan: URI - Pt advised to [...] nasal steroid allergy spray. 11/18/2018 Appointment: Gloria Scott WPtel: [address] [place], [place] [phone] (30 min) [facility] 11/18/2018 Patient Education: Patient Medication Summary Completed [...] allergy spray. 11/01/2018 Appointment: Gloria Scott WPtel: [address] [place], [place] [phone] (30 min) Complex 11/01/2018 Patient Education: Patient Medication Summary Completed 11/01/2018 Patient Education: Diabetes Completed 11/01/2018 Care Plan: Comp Metabolic Pending 11/01/2018 Care Plan: Cbc With Differential Pending 11/01/2018 Care Plan: %Hba1C LOINC : 38684-4 Pending 11/01/2018 Care Plan: Tsh Pending 11/01/2018 [...] concerns. 08/06/2018 Appointment: [phone] [facility] (30 min) Complex 08/06/2018 Patient Education: Patient Medication Summary Completed 08/06/2018 Visit Plan: incision - healing well - Wound Instructions - Pt was instructed to keep the wound clean, wash with antibacterial soap, use triple antibiotic ointment, call if redness, pustular drainage, or any other a cute concerns. Hidradenitis suppurativa - will refer to dermatology. 07/22/2018 Appointment: Gloria Scott WPtel: [facility] [place] (30 min) Complex 07/22/2018 Patient Education: Patient Medication Summary Completed 07/22/2018 Visit Plan: Hidradenitis suppurativa - post incision - wound healing well - continue to monitor Wound Instructions - Pt was instructed to keep the wound clean, wash with antibacterial soap, use triple antibiotic oi ntment, call if redness, pustular drainage, or any other acute concerns. 07/18/2018 Appointment: Gloria Scott [facility]Ptel: [phone] [facility] (30 min) Complex 07/18/2018 Patient Education: Patient Medication Summary Completed 07/18/2018 Referral: Roni Roberts pt will be notified by there office to schedule Initiated 07/03/2018 Care Plan: Referral Order SNOMED-CT : [id number] Pending 07/01/2018 Visit Plan: Abscess/Cellulitis - The [...] stomach pain. 06/28/2018 Appointment: Gloria Scott WPtel: [facility] [place] [address] (30 min) Complex 06/28/2018 Patient Education: Patient Medication Summary Completed 06/28/2018 Visit Plan: Cellulitis-right sarwpj-kksttjqi-iqa bactroban ointment until healed completely-call with any concerns 06/17/2018 Appointment: Tamy Lugo WPtel: [address] [place] [phone] (15 min) Moderate 06/17/2018 Patient Education: Patient Medication Summary Completed 06/17/2018 Visit Plan: Abscess/Cellulitis - The patient was instructed in appropriate wound care. The patient was instructed to use the antibiotic ointment as per RX. The patient is to call for any change in symptoms, increase in size of the lesion, increase in pain, worsening redness, warmth, discharge. 06/05/2018 Appointment: Gloria Scott WPtel: [facility] [place] (30 min) Complex 06/05/2018 Patient Education: Patient Medication Summary Completed 06/05/2018 Patient Education: Diabetes Completed 06/05/2018 [facility] Referral Initiated 04/19/2018 Care Plan: Referral Order SNOMED-CT : [id number] Pending 03/27/2018 Visit Plan: Esophageal Reflux - [...] allergy spray. 03/26/2018 Appointment: Gloria Scott WPtel: [address] [place], [place] [phone] (15 min) Moderate 03/26/2018 Patient Education: Patient Medication Summary Completed 03/26/2018 Appointment: Gloria Scott WPtel: [address] [place], [place] [phone] (15 min) Moderate 03/25/2018 Visit Plan: Skin [...] and bandaids. 03/14/2018 Appointment: Gloria Scott WPtel: [facility] [place] (15 min) Moderate 03/14/2018 Patient Education: Patient [...] not improve 03/07/2018 Appointment: Gloria Scott WPtel: [phone] [facility] (15 min) Moderate 03/07/2018 Patient Education: Patient [...] worsen. 02/19/2018 Appointment: Gloria Scott WPtel: [phone] [facility] (15 min) Moderate 02/19/2018 Patient Education: Patient [...] discharge. 01/08/2018 Appointment: Gloria Scott WPtel: [phone] [facility] (30 min) Complex 01/08/2018 Patient Education: Patient [...] worsen. 09/05/2017 Appointment: Gloria Scott WPtel: [phone] [facility] [place] (15 min) Moderate 09/05/2017 Patient Education: Patient [...] send RX 06/07/2017 Appointment: Gloria Scott WPtel: [phone] [facility] [place] (15 min) Moderate 06/07/2017 Patient Education: [...] of injection. 04/24/2017 Appointment: Gloria Scott WPtel: [facility] [place] [place] (30 min) Complex 04/24/2017 Patient Education: Patient Medication Summary Completed 04/24/2017 Appointment: Gloria Scott WPtel: [facility] [place] (30 min) Complex 03/09/2017 Appointment: Gloria Scott WPtel: [phone] [facility] (30 min) Complex 02/13/2017 Visit Plan: Otitis [...] allergy spray. 01/09/2017 Appointment: Gloria Scott WPtel: [phone] [facility] (10 min) Simple 01/09/2017 Patient Education: Patient Medication Summary Completed 01/09/2017 Patient Education: Obesity Completed 01/09/2017 Visit Plan: Vaginal candidiasis - will send RX - pt is to notify clinic if symptoms do not improve, if they worsen, or with any questions or concerns. Diabetes Mellitus - Uncontrolled - Will refer to head of music - I have recommended for the patient [...] Mellitus - Uncontrolled - Will refer to head of music - I have recommended for the patient [...] control. 10/09/2016 Appointment: Gloria Scott WPtel: [phone] [facility] (30 min) Complex 10/09/2016 Patient Education: Patient Medication Summary Completed 10/09/2016 Patient Education: Obesity Completed 10/09/2016 Referral: Roni Roberts Referral Completed 09/18/2016 Care Plan: CT ABD & PELV W/CONTRAST LOINC : 50218-1 Pending 09/13/2016 Care Plan: Referral Order SNOMED-CT : [id number] Pending 09/13/2016 Visit Plan: Ongoing abdominal pain/hernia - will send RX - will refer - pt is to notify clinic if symptoms do not improve, if they worsen, or with any questions or concerns. 09/12/2016 Appointment: Gloria Scott WPtel: [phone] [facility] (30 min) Complex 09/12/2016 Patient Education: Patient Medication Summary Completed 09/12/2016 Patient Education: Obesity Completed 09/12/2016 Care Plan: Referral Order SNOMED-CT : [id number] Pending 09/12/2016 Visit Plan: Ongoing abdominal/epigastric pain [...] control. 09/05/2016 Appointment: Gloria Scott WPtel: [phone] (30 min) Complex 09/05/2016 Patient Education: Patient [...] spray. 06/16/2016 Appointment: Gloria Scott WPtel: [phone] (10 min) Simple 06/16/2016 Patient Education: Patient [...] check. 06/13/2016 Appointment: Gloria Scott WPtel: [phone] (30 min) Complex 06/13/2016 Patient Education: Patient Medication Summary Completed 06/13/2016 Patient Education: Obesity Completed 06/13/2016 Appointment: Gloria Scott WPtel: [phone] [facility] (30 min) Complex 06/08/2016 Visit Plan: Diabetes [...] weight check. 05/19/2016 Appointment: Tamy Lugo WPtel: [phone] [phone] [place] (30 min) Complex 05/19/2016 Patient Education: [...] check. 05/08/2016 Appointment: Gloria Scott WPtel: [phone] [facility] [place] (15 min) Moderate 05/08/2016 Patient Education: [...] the morning. 05/05/2016 Appointment: Tamy Lugo WPtel: [facility] [phone] [place] (15 min) Moderate 05/05/2016 Patient Education: Patient Medication Summary Completed 05/05/2016 Patient Education: Obesity Completed 05/05/2016 Care Plan: Comp Metabolic Pending 05/05/2016 Appointment: Jocelyn Hess WPtel: [facility] [place] Surgical Procedure 04/17/2016 Appointment: Injection 04/13/2016 Patient Education: Patient Medication Summary Completed 04/13/2016 Visit Plan: Right shoulder pain - will refer to PT - The pt is to use prn antiinflammatories to manage acute pain. The patient is to call the office if the pain is worsening or does not improve. 04/10/2016 Appointment: Gloria Scott WPtel: [facility] [place] [place] (30 min) Complex 04/10/2016 Patient Education: [...] glucose control. 04/06/2016 Appointment: Gloria Scott WPtel: [phone] [facility] [place] (15 min) Moderate 04/06/2016 Patient Education: [...] order [place] 02/28/2016 Appointment: Gloria Scott WPtel: [phone] [facility] [place] (30 min) Complex 02/28/2016 Patient Education: Patient Medication Summary Completed 02/28/2016 Patient Education: Obesity Completed 02/28/2016 Appointment: Gloria Scott WPtel: [phone] [facility] (15 min) Moderate 01/31/2016 Visit Plan: Diabetes [...] prn. 12/23/2015 Appointment: Gloria Scott [facility]Ptel: [phone] [facility] 12/23/2015 Patient Education: Patient Medication [...] %Hba1C ADD TO BLOOD IN THE LAB. [facility] : 54631-9 Pending 08/13/2015 Visit Plan: Hypertension - uncontrolled [...] Referral: Roni Roberts Referral Completed [facility] Referral Initiated Referral: Roni Roberts Referral Initiated Referral: Roni Roberts Referral Initiated Instructions Comment . Esophageal Reflux - the patient has [...] in the nasal steroid allergy spray. . Right shoulder pain - will refer to PT - The pt is to use prn antiinflammatories to manage acute pain. The patient is to call the office if the pain is worsening or does not improve. . Vaginal candidiasis - will send RX - pt is to notify clinic if symptoms do not improve, if they worsen, or with any questions or concerns. Diabetes Mellitus - Uncontrolled - Will refer to head of music - I have recommended for the patient [...] in one month for weight check. . Hypertension - uncontrolled - the patient's [...] is to call for acute concerns. . Allergies - chronic - recommended pt [...] PRN Yeast - will send RX . Otitis Media - discussed the diagnosis [...] worsening of stomach upset or stomach pain. steroid shot today madelyn prednisone 40mg daily x 5 days - [...] in pain, worsening redness, warmth, discharge. . Well Adult Female - exam completed. Pap and gc/chlamydia and breast exam completed. Pt will be called with results of her testing. She was advised to continue with yearly annual exams. Safe sex practices discussed during office visit today. Call if any abnormal gynecologic issues during the next year, otherwise, RTC yearly or prn. . PCOS and skin changes - pt currently on Metformin, but states that it is causing some GI upset and diarrhea - will change to Invokamet, will refer to Dr. Con[facility]. Will have pt repeat her liver enzymes on 09/09/15. Will have pt recheck a Hgb A1C after 3 months of being on Invokamet. . Ongoing abdominal/epigastric pain - pt states [...] allow for greater blood glucose control. . Bronchitis - acute case of bronchitis [...] suppurativa - will refer to dermatology. . Diabetes Mellitus - Uncontrolled - I [...] in one month for weight check. . Hidradenitis suppurativa - post incision - wound healing well - continue to monitor Wound Instructions - Pt was instructed to keep the wound clean, wash with antibacterial soap, use triple antibiotic ointment, call if redness, pustular drainage, or any other acute concerns. . Diabetes Mellitus - I have recommended [...] Mellitus - Uncontrolled - Will refer to head of music - I have recommended for the patient [...] a shot if needed will call cough dianup let me know if it is not getting better. Abscess/Cellulitis - The patient was instructed in appropriate wound care. The patient was instructed to use the antibiotic ointment as per RX. The patient is to call for any change in symptoms, increase in size of the lesion, increase in pain, worsening redness, warmth, discharge. Will check fasting labs, will send for [...] to further attempt to reduce peripheral edema. Pt has been advised to increase the [...] with any questions or concerns. . Cellulitis-right mnprgd-wuxhftgv-oeh bactroban ointment until healed completely-call with any [...] year, otherwise, RTC yearly or prn. . Low back pain - the patient [...]
--- OUTSIDE RECORDS SUMMARY | 2018-12-17 02:29 | XMS REPORT | CCD ---
Author Author [facility] Address [address] [place] [address] Phone Care Team Providers Care Hansard Reporter Name Role Phone PP Unavailable CCM Unavailable Summary Purpose Interface Exchange Insurance Providers Payer name Policy type / Coverage type Covered alliance party ID Effective Begin Date Effective End Date [facility] Commercial Insurance [id number] Unknown Unknown Family history Father Diagnosis Age At Onset Hypertension Unknown Arthritis Unknown Mother Diagnosis Age At Onset Arthritis Unknown Hyperlipidemia Unknown Daughter Diagnosis Age At Onset Asthma Unknown Social History Social History Element Codes Description Effective Dates Marital status Unknown Darin 08/03/2015 Number of children Unknown 1 08/03/[address]: 9802661 Quit less than 5 years ago 08/03/2015 [...] Mucinex 600 mg tablet, extended release RxNorm: 268838 1 Tablet(s) PO BID 11/18/2018 12/17/2018 Active ibuprofen 800 mg tablet RxNorm: 423744 1 Tablet(s) PO TID as needed for pain 11/18/2018 12/17/2018 Active albuterol sulfate 2.5 mg/3 mL (0.083 %) solution for nebulization RxNorm: 377431 3 Milliliter(s) INH Q4-6H as needed dyspnea 11/18/2018 No Stop Date Active Xopenex 1.25 mg/3 mL solution for nebulization RxNorm: 404269 Milliliter(s) USE ONE VIAL IN NEBULIZER THREE TIMES DAILY 11/18/2018 No Stop Date Active Zithromax Z-Rashid 250 mg tablet RxNorm: 776954 1 Tablet(s) PO UD 11/01/2018 No Stop Date Active promethazine 25 mg tablet RxNorm: 738717 Tablet(s) TABLET(S) TAKE ONE TABLET BY MOUTH EVERY 6 TO 8 HOURS NEEDED 11/01/2018 No Stop Date Active Kenalog 40 mg/mL suspension for injection RxNorm: 5084556 Milliliter(s) Inj 11/01/2018 11/01/2018 Inactive prednisone 20 mg tablet RxNorm: 860898 2 Tablet(s) PO daily 11/01/2018 11/05/2018 Inactive ibuprofen 800 mg tablet RxNorm: 569354 1 Tablet(s) PO TID as needed for pain 09/05/2018 09/14/2018 Inactive Phenergan with Codeine Syrup RxNorm: 5-10 ML PO QID as needed cough 08/08/2018 No Stop Date Active alprazolam 0.25 mg tablet RxNorm: 064157 1 Tablet(s) PO daily as needed anxiety 08/08/2018 No Stop Date Active metoprolol succinate ER 100 mg tablet,extended release 24 hr RxNorm: 183981 Tablet(s) TAKE ONE TABLET BY MOUTH ONCE DAILY 08/06/2018 No Stop Date Active ibuprofen 800 mg tablet RxNorm: 073114 1 Tablet(s) PO TID as needed for pain 08/06/2018 08/15/2018 Inactive Zithromax Z-Rashid 250 mg tablet RxNorm: 317512 1 Tablet(s) PO UD 08/06/2018 09/04/2018 Inactive metoprolol succinate ER 50 mg tablet,extended release 24 hr RxNorm: 409065 1 Tablet(s) PO daily 08/06/2018 09/04/2018 Inactive Lyrica 100 mg capsule RxNorm: 474038 1 Capsule(s) PO TID 07/25/2018 10/16/2018 Inactive Lyrica 100 mg capsule RxNorm: 257565 1 Capsule(s) PO TID 07/25/2018 07/24/2018 Inactive mupirocin 2 % topical ointment RxNorm: 088736 1 Application TOP daily 07/22/2018 07/28/2018 Inactive ibuprofen 800 mg tablet RxNorm: 616617 1 Tablet(s) PO TID as needed for pain 07/22/2018 07/31/2018 Inactive hydrocodone 7.5 mg-acetaminophen 325 mg tablet RxNorm: 877659 1 Tablet(s) PO Q4H as needed 07/18/2018 08/16/2018 Inactive promethazine 25 mg tablet RxNorm: 461551 TABLET(S) TAKE ONE TABLET BY MOUTH EVERY 6 TO 8 HOURS NEEDED 07/05/2018 2018 Inactive hyoscyamine 0.125 mg sublingual tablet RxNorm: 8033498 1 Tablet(s) SL TID as needed diarrhea 06/28/2018 07/07/2018 Inactive mupirocin 2 % topical ointment RxNorm: 286174 1 Application TOP BID 06/17/2018 06/26/2018 Inactive mupirocin 2 % topical ointment RxNorm: 081251 1 Application TOP BID 06/05/2018 No Stop Date Active Keflex 500 mg capsule RxNorm: 477357 1 Capsule(s) PO TID 06/05/2018 06/11/2018 Inactive ceftriaxone 500 mg solution for injection RxNorm: 9586071 Inj 06/05/2018 06/05/2018 Inactive Diflucan 150 mg tablet RxNorm: 429080 1 Tablet(s) PO daily 06/05/2018 07/02/2018 Inactive Protonix 40 mg tablet,delayed release RxNorm: 629749 1 Tablet(s) PO BID x 1 week then daily 03/26/2018 No Stop Date Active Phenergan with Codeine Syrup RxNorm: 5-10 ML PO QID as needed cough 03/19/2018 08/07/2018 Inactive promethazine 25 mg tablet RxNorm: 324552 Tablet(s) TAKE ONE TABLET BY MOUTH EVERY 6 TO 8 HOURS NEEDED 03/15/2018 07/04/2018 Inactive Singulair 10 mg tablet RxNorm: 799022 1 Tablet(s) PO daily 03/14/2018 04/12/2018 Inactive metoprolol succinate ER 100 mg tablet,extended release 24 hr RxNorm: 355549 1 Tablet(s) PO daily 03/07/2018 04/05/2018 Inactive Zithromax Z-Rashid 250 mg tablet RxNorm: 479016 1 Tablet(s) PO UD 03/07/2018 03/07/2018 Inactive prednisone 20 mg tablet RxNorm: 247498 2 Tablet(s) PO daily 03/07/2018 03/11/2018 Inactive Diflucan 150 mg tablet RxNorm: 894573 Tablet(s) TAKE ONE TABLET BY MOUTH ONCE DAILY FOR 7 DAYS THEN TAKE ONE TABLET BY MOUTH ONCE A WEEK 02/19/2018 06/04/2018 Inactive Levaquin 500 mg tablet RxNorm: 358006 1 Tablet(s) PO daily 02/19/2018 02/25/2018 Inactive prednisone 20 mg tablet RxNorm: 578703 2 Tablet(s) PO daily 02/19/2018 02/23/2018 Inactive albuterol sulfate 2.5 mg/3 mL (0.083 %) solution for nebulization RxNorm: 339791 3 Milliliter(s) INH Q4-6H as needed dyspnea 02/19/2018 11/17/2018 Inactive Kenalog 40 mg/mL suspension for injection RxNorm: 2312062 15. Milliliter(s) Inj 02/19/2018 02/19/2018 Inactive hydrocodone 7.5 mg-acetaminophen 325 mg tablet RxNorm: 758092 1 Tablet(s) PO Q4H as needed 02/05/2018 03/06/2018 Inactive clindamycin HCl 300 mg capsule RxNorm: 274510 1 Capsule(s) PO TID 01/09/2018 01/15/2018 Inactive promethazine 25 mg tablet RxNorm: 927461 Tablet(s) TAKE ONE TABLET BY MOUTH EVERY 6 TO 8 HOURS NEEDED 01/08/2018 03/14/2018 Inactive Diflucan 150 mg tablet RxNorm: 958588 Tablet(s) TAKE ONE TABLET BY MOUTH ONCE DAILY FOR 7 DAYS THEN TAKE ONE TABLET BY MOUTH ONCE A WEEK 01/08/2018 02/18/2018 Inactive Bactrim DS 800 mg-160 mg tablet RxNorm: 616354 1 Tablet(s) PO BID 01/08/2018 01/17/2018 Inactive prednisone 20 mg tablet RxNorm: 203390 2 Tablet(s) PO daily 11/23/2017 11/27/2017 Inactive Zithromax Z-Rashid 250 mg tablet RxNorm: 510572 1 Tablet(s) PO UD 09/05/2017 02/11/2018 Inactive Kenalog 40 mg/mL suspension for injection RxNorm: 1921160 Milliliter(s) Inj 09/05/2017 09/05/2017 Inactive prednisone 20 mg tablet RxNorm: 347523 2 Tablet(s) PO daily 09/05/2017 09/09/2017 Inactive ibuprofen 800 mg tablet RxNorm: 483000 1 Tablet(s) PO TID 07/27/2017 02/21/2018 Inactive alprazolam 0.5 mg tablet RxNorm: 107499 1 Tablet(s) PO Q8 as needed 06/20/2017 07/09/2017 Inactive metoprolol succinate ER 100 mg tablet,extended release 24 hr RxNorm: 576001 TAKE ONE TABLET BY MOUTH ONCE DAILY 06/20/2017 08/05/2018 Inactive Zithromax Z-Rashid 250 mg tablet RxNorm: 876244 1 Tablet(s) PO UD 06/15/2017 07/25/2017 Inactive Xopenex HFA 45 mcg/actuation aerosol inhaler RxNorm: 375239 INHALE ONE PUFF INTO LUNGS NEEDED 06/13/2017 07/14/2017 Inactive Flovent HFA 44 mcg/actuation aerosol inhaler RxNorm: 915465 2 Puff(s) INH BID 06/08/2017 No Stop Date Active Xopenex 1.25 mg/3 mL solution for nebulization RxNorm: 294330 Milliliter(s) USE ONE VIAL IN NEBULIZER THREE TIMES DAILY 06/08/2017 11/17/2018 Inactive potassium chloride ER 10 mEq tablet,extended release RxNorm: 247518 1 Tablet(s) PO daily 06/08/2017 06/10/2017 Inactive Lasix 20 mg tablet RxNorm: 760716 1 Tablet(s) PO daily 06/08/2017 06/10/2017 Inactive Xopenex HFA 45 mcg/actuation aerosol inhaler RxNorm: 116315 INHALE ONE PUFF INTO LUNGS NEEDED 06/08/2017 06/12/2017 Inactive triamcinolone acetonide 0.025 % topical cream RxNorm: 9400080 1 Application TOP BID 06/07/2017 No Stop Date Active ibuprofen 800 mg tablet RxNorm: 728428 1 Tablet(s) PO TID 06/07/2017 07/06/2017 Inactive cyclobenzaprine 5 mg tablet RxNorm: 400222 1/2 Tablet(s) PO TID as needed muscle spasms 05/28/2017 06/01/2017 Inactive Diflucan 150 mg tablet RxNorm: 194346 TAKE ONE TABLET BY MOUTH ONCE DAILY FOR 7 DAYS THEN TAKE ONE TABLET BY MOUTH ONCE A WEEK 05/28/2017 01/07/2018 Inactive bumetanide 1 mg tablet RxNorm: 785323 TAKE ONE TABLET BY MOUTH TWICE DAILY 05/25/2017 No Stop Date Active meloxicam 7.5 mg tablet RxNorm: 889604 1 Tablet(s) PO daily as needed 05/25/2017 07/23/2017 Inactive Xopenex 1.25 mg/3 mL solution for nebulization RxNorm: 979319 USE ONE VIAL IN NEBULIZER THREE TIMES DAILY 05/25/2017 06/07/2017 Inactive Protonix 40 mg tablet,delayed release RxNorm: 054059 1 Tablet(s) PO daily 05/08/2017 11/03/2017 Inactive Protonix 40 mg tablet,delayed release RxNorm: 119971 1 Tablet(s) PO daily 05/04/2017 05/03/2017 Inactive Protonix 40 mg tablet,delayed release RxNorm: 932394 1 Tablet(s) PO daily 05/04/2017 05/07/2017 Inactive meloxicam 7.5 mg tablet RxNorm: 830494 1 Tablet(s) PO daily as needed 04/25/2017 04/24/2017 Inactive meloxicam 7.5 mg tablet RxNorm: 832904 1 Tablet(s) PO daily as needed 04/25/2017 05/04/2017 Inactive promethazine 25 mg tablet RxNorm: 502355 TAKE ONE TABLET BY MOUTH EVERY 6 TO 8 HOURS NEEDED 04/25/2017 01/07/2018 Inactive Kenalog 40 mg/mL suspension for injection RxNorm: 1788439 1 Milliliter(s) Inj 04/24/2017 04/24/2017 Inactive cyclobenzaprine 5 mg tablet RxNorm: 293589 1/2 Tablet(s) PO TID as needed muscle spasms 04/24/2017 04/28/2017 Inactive Xopenex HFA 45 mcg/actuation aerosol inhaler RxNorm: 287206 INHALE ONE PUFF INTO LUNGS NEEDED 03/30/2017 04/14/2017 Inactive Humalog KwikPen 200 unit/mL (3 mL) subcutaneous RxNorm: 1905080 INJECT 35 UNITS SUBCUTANEOUSLY BEFORE MEAL(S) 03/30/2017 06/05/2017 Inactive promethazine 25 mg tablet RxNorm: 669606 Tablet(s) TAKE ONE TABLET BY MOUTH EVERY 6 TO 8 HOURS NEEDED 03/12/2017 03/26/2017 Inactive cyclobenzaprine 10 mg tablet RxNorm: 592544 TAKE ONE TABLET BY MOUTH ONCE DAILY NEEDED 03/06/2017 03/15/2017 Inactive lidocaine 5 % topical patch RxNorm: 8872920 USE ONE PATCH TOPICALLY DAILY. 12 HOURS ON AND THEN 12 HOURS OFF. 03/06/2017 03/15/2017 Inactive Humalog KwikPen 200 unit/mL (3 mL) subcutaneous RxNorm: 6509119 INJECT 35 UNITS SUBCUTANEOUSLY BEFORE MEAL(S) 02/20/2017 03/25/2017 Inactive promethazine 25 mg tablet RxNorm: 170826 Tablet(s) TAKE ONE TABLET BY MOUTH EVERY 6 TO 8 HOURS NEEDED 02/20/2017 03/06/2017 Inactive Xopenex HFA 45 mcg/actuation aerosol inhaler RxNorm: 216153 INHALE ONE PUFF INTO LUNGS NEEDED 02/20/2017 03/07/2017 Inactive bumetanide 1 mg tablet RxNorm: 887776 TAKE ONE TABLET BY MOUTH TWICE DAILY 02/15/2017 05/15/2017 Inactive bumetanide 1 mg tablet RxNorm: 036682 TAKE ONE TABLET BY MOUTH TWICE DAILY 01/15/2017 02/13/2017 Inactive metoprolol succinate ER 100 mg tablet,extended release 24 hr RxNorm: 359687 TAKE ONE TABLET BY MOUTH ONCE DAILY 01/11/2017 06/19/2017 Inactive Zithromax Z-Rashid 250 mg tablet RxNorm: 941558 1 Tablet(s) PO UD 01/09/2017 03/13/2017 Inactive meclizine 25 mg tablet RxNorm: 334223 1 Tablet(s) PO TID as needed 01/09/2017 01/18/2017 Inactive Kenalog 40 mg/mL suspension for injection RxNorm: 1079336 Milliliter(s) Inj 01/09/2017 01/09/2017 Inactive promethazine 25 mg tablet RxNorm: 818398 Tablet(s) TAKE ONE TABLET BY MOUTH EVERY 6 TO 8 HOURS NEEDED 12/29/2016 01/12/2017 Inactive Voltaren 1 % topical gel RxNorm: 409064 APPLY TOPICALLY TO AFFECTED AREA TWICE DAILY 12/25/2016 01/13/2017 Inactive cyclobenzaprine 10 mg tablet RxNorm: 109069 TAKE ONE TABLET BY MOUTH NEEDED 12/22/2016 12/31/2016 Inactive lidocaine 5 % topical patch RxNorm: 5251640 USE ONE PATCH TOPICALLY DAILY. 12 HOURS ON AND THEN 12 HOURS OFF. 12/22/2016 12/31/2016 Inactive hydrocodone 7.5 mg-acetaminophen 325 mg tablet RxNorm: 940834 1 Tablet(s) PO Q4H as needed 12/22/2016 01/20/2017 Inactive bumetanide 1 mg tablet RxNorm: 662941 TAKE ONE TABLET BY MOUTH TWICE DAILY 12/17/2016 01/14/2017 Inactive promethazine 25 mg tablet RxNorm: 552369 Tablet(s) TAKE ONE TABLET BY MOUTH EVERY 6 TO 8 HOURS NEEDED 11/16/2016 12/15/2016 Inactive spironolactone 50 mg tablet RxNorm: 238684 TAKE ONE TABLET BY MOUTH TWICE DAILY 11/15/2016 05/13/2017 Inactive Basaglar KwikPen 100 unit/mL (3 mL) subcutaneous RxNorm: 6695027 Unit(s) INJECT 35 UNITS IN THE MORNING AND 50 UNITS IN THE EVENING SUBCUTANEOUSLY 11/15/2016 03/14/2017 Inactive cyclobenzaprine 10 mg tablet RxNorm: 151494 TAKE ONE TABLET BY MOUTH NEEDED 11/15/2016 12/04/2016 Inactive lidocaine 5 % topical patch RxNorm: 5297484 1 Patch TOP daily . 12 HOURS ON, 12 HOURS OFF 11/15/2016 12/04/2016 Inactive lidocaine 4 % topical patch RxNorm: 6867376 1 Patch TOP on for 12 hours and off for 12 hours 11/14/2016 11/14/2016 Inactive promethazine 25 mg tablet RxNorm: 304807 TAKE ONE TABLET BY MOUTH EVERY 6 TO 8 HOURS NEEDED 11/14/2016 11/15/2016 Inactive Basaglar KwikPen 100 unit/mL (3 mL) subcutaneous RxNorm: 2373205 INJECT 35 UNITS IN THE MORNING AND 50 UNITS IN THE EVENING SUBCUTANEOUSLY 11/14/2016 11/14/2016 Inactive cyclobenzaprine 10 mg tablet RxNorm: 578713 TAKE ONE TABLET BY MOUTH NEEDED 11/14/2016 11/14/2016 Inactive spironolactone 50 mg tablet RxNorm: 555360 TAKE ONE TABLET BY MOUTH TWICE DAILY 11/14/2016 11/14/2016 Inactive Diflucan 150 mg tablet RxNorm: 145368 1 Tablet(s) PO as needed prophylactic after sexual intercourse 10/30/2016 No Stop Date Active hydrocodone 7.5 mg-acetaminophen 325 mg tablet RxNorm: 457015 1 Tablet(s) PO Q4H as needed 10/30/2016 11/28/2016 Inactive clotrimazole 100 mg vaginal tablet RxNorm: 169399 1 Tablet(s) VAG QW 10/30/2016 11/28/2016 Inactive Humalog KwikPen 200 unit/mL (3 mL) subcutaneous RxNorm: 6934242 35 Unit(s) SQ AC 10/30/2016 02/19/2017 Inactive QS 30 day supply Bydureon 2 mg/0.65 mL subcutaneous pen injector RxNorm: 4754490 2 Milligram(s) SQ QW 10/30/2016 11/28/2016 Inactive Basaglar KwikPen 100 unit/mL (3 mL) subcutaneous RxNorm: 2907487 Unit(s) SQ 35 units in the morning and 50 units in the evening 10/30/2016 11/13/2016 Inactive QS 30 day supply cyclobenzaprine 10 mg tablet RxNorm: 474850 TAKE ONE TABLET BY MOUTH NEEDED 10/27/2016 11/05/2016 Inactive Diflucan 150 mg tablet RxNorm: 259991 1 Tablet(s) PO daily x 7 days then once a week 10/27/2016 10/29/2016 Inactive promethazine 25 mg tablet RxNorm: 909318 TAKE ONE TABLET BY MOUTH EVERY 6 TO 8 HOURS NEEDED 10/27/2016 11/10/2016 Inactive Diflucan 150 mg tablet RxNorm: 015242 1 Tablet(s) PO daily x 7 days then once a week 10/09/2016 10/15/2016 Inactive Diflucan 150 mg tablet RxNorm: 339699 1 Tablet(s) PO daily 09/20/2016 09/26/2016 Inactive Cipro 500 mg tablet RxNorm: 158857 1 Tablet(s) PO BID 09/12/2016 09/21/2016 Inactive Flagyl 500 mg tablet RxNorm: 882291 1 Tablet(s) PO TID 09/12/2016 09/21/2016 Inactive Diflucan 150 mg tablet RxNorm: 392328 1 Tablet(s) PO daily 09/06/2016 09/12/2016 Inactive hydrocodone 7.5 mg-acetaminophen 325 mg tablet RxNorm: 540324 1 Tablet(s) PO Q4H as needed 07/12/2016 08/10/2016 Inactive Xopenex 1.25 mg/3 mL solution for nebulization RxNorm: 229540 3 Milliliter(s) INH TID 06/16/2016 05/24/2017 Inactive cefdinir 300 mg capsule RxNorm: 839090 1 Capsule(s) PO BID 06/16/2016 06/25/2016 Inactive Mobic 7.5 mg tablet RxNorm: 492441 1 Tablet(s) PO daily 06/16/2016 06/25/2016 Inactive Levaquin 500 mg tablet RxNorm: 406007 1 Tablet(s) PO daily 06/16/2016 06/22/2016 Inactive cyclobenzaprine 10 mg tablet RxNorm: 596894 1 Tablet(s) PO PRN as needed 06/14/2016 06/23/2016 Inactive promethazine 25 mg tablet RxNorm: 207135 TAKE ONE TABLET BY MOUTH EVERY 6 TO 8 HOURS NEEDED 06/14/2016 06/28/2016 Inactive Xopenex HFA 45 mcg/actuation aerosol inhaler RxNorm: 852649 1 Puff(s) INH PRN 06/14/2016 07/15/2016 Inactive pen needle, diabetic 32 gauge x 5/16" RxNorm: 1 use Miscellaneous AC & HS 06/13/2016 No Stop Date Active QS 30 day supply Humalog KwikPen 200 unit/mL (3 mL) subcutaneous RxNorm: 0129054 10 Unit(s) SQ AC 06/13/2016 10/29/2016 Inactive QS 30 day supply Basaglar KwikPen 100 unit/mL (3 mL) subcutaneous RxNorm: 8077059 22 units in the morning and 35 in the evening. Unit(s) SQ 06/13/2016 10/29/2016 Inactive QS 30 day supply Tivorbex 20 mg capsule RxNorm: 9843269 1 Capsule(s) PO TID as needed 06/13/2016 06/13/2016 Inactive metoprolol succinate ER 100 mg tablet,extended release 24 hr RxNorm: 533354 TAKE ONE TABLET BY MOUTH ONCE DAILY 06/13/2016 10/10/2016 Inactive hydrocodone 7.5 mg-acetaminophen 325 mg tablet RxNorm: 645974 1 Tablet(s) PO Q4H as needed 06/13/2016 07/11/2016 Inactive Voltaren 1 % topical gel RxNorm: 107557 APPLY TOPICALLY TO AFFECTED AREA TWICE DAILY 05/30/2016 07/08/2016 Inactive cyclobenzaprine 10 mg tablet RxNorm: 541799 1 Tablet(s) PO PRN as needed 05/19/2016 05/28/2016 Inactive alprazolam 0.5 mg tablet RxNorm: 779233 1 Tablet(s) PO Q8 as needed 05/19/2016 07/23/2018 Inactive bumetanide 1 mg tablet RxNorm: 629374 TAKE ONE TABLET BY MOUTH TWICE DAILY 05/19/2016 06/17/2016 Inactive Sprintec (28) 0.25 mg-35 mcg tablet RxNorm: 988115 1 Tablet(s) PO UD 05/08/2016 No Stop Date Active Lantus Solostar 100 unit/mL (3 mL) subcutaneous insulin pen RxNorm: 333995 Unit(s) SQ UD 15units qam 30 units qhs 05/08/2016 No Stop Date Active Humalog KwikPen 200 unit/mL (3 mL) subcutaneous RxNorm: 3876294 10 Unit(s) SQ AC 05/08/2016 06/12/2016 Inactive bumetanide 1 mg tablet RxNorm: 090765 TAKE ONE TABLET BY MOUTH TWICE DAILY 04/28/2016 05/18/2016 Inactive Voltaren 1 % topical gel RxNorm: 337201 1 Application TOP BID 04/28/2016 05/07/2016 Inactive cyclobenzaprine 10 mg tablet RxNorm: 688935 1 Tablet(s) PO PRN as needed 04/28/2016 05/07/2016 Inactive hydrocodone 7.5 mg-acetaminophen 325 mg tablet RxNorm: 727996 1 Tablet(s) PO Q4H as needed 04/18/2016 05/16/2016 Inactive Lantus Solostar 100 unit/mL (3 mL) subcutaneous insulin pen RxNorm: 510002 Unit(s) SQ UD 10 units QHS x5 days, if sugars are over 200 increase to 15 units x 5 days, if sugars over 200 increase to 20 units. 04/14/2016 05/07/2016 Inactive lidocaine 4 % topical patch RxNorm: 9069668 1 Patch TOP on for 12 hours and off for 12 hours 04/13/2016 11/13/2016 Inactive Voltaren 1 % topical gel RxNorm: 825609 1 Application TOP BID 04/10/2016 04/27/2016 Inactive metformin ER 500 mg 24 hr tablet,extended release RxNorm: 304439 1 Tablet(s) PO daily 04/06/2016 05/05/2016 Inactive Kenalog 40 mg/mL suspension for injection RxNorm: 3825993 1 Milliliter(s) Inj 04/06/2016 04/06/2016 Inactive cyclobenzaprine 10 mg tablet RxNorm: 762931 1 Tablet(s) PO PRN as needed 04/06/2016 04/27/2016 Inactive WelChol 3.75 gram oral powder packet RxNorm: 276905 1 packet PO daily 04/06/2016 07/04/2016 Inactive alprazolam 0.5 mg tablet RxNorm: 631954 1 Tablet(s) PO Q8 as needed 03/30/2016 06/19/2017 Inactive Levaquin 500 mg tablet RxNorm: 626797 1 Tablet(s) PO daily 03/30/2016 04/05/2016 Inactive metoprolol succinate ER 100 mg tablet,extended release 24 hr RxNorm: 293994 TAKE ONE TABLET BY MOUTH ONCE DAILY 03/16/2016 06/12/2016 Inactive Levaquin 500 mg tablet RxNorm: 040726 1 Tablet(s) PO daily 03/08/2016 03/14/2016 Inactive prednisone 20 mg tablet RxNorm: 176314 2 Tablet(s) PO daily 03/08/2016 03/12/2016 Inactive Xopenex HFA 45 mcg/actuation aerosol inhaler RxNorm: 024747 1 Puff(s) INH PRN 02/28/2016 06/13/2016 Inactive Phenergan with Codeine Syrup RxNorm: 5-10 ML PO QID as needed cough 02/28/2016 03/18/2018 Inactive Kenalog 40 mg/mL suspension for injection RxNorm: 0249912 1 Milliliter(s) Inj 02/28/2016 02/28/2016 Inactive Zithromax Z-Rashid 250 mg tablet RxNorm: 298846 1 Tablet(s) PO UD 02/28/2016 03/27/2016 Inactive alprazolam 0.5 mg tablet RxNorm: 422210 1 Tablet(s) PO Q8 as needed 02/24/2016 06/19/2017 Inactive glipizide 5 mg tablet RxNorm: 279193 1 Tablet(s) PO daily 01/18/2016 05/16/2016 Inactive Actos 15 mg tablet RxNorm: 073471 1 Tablet(s) PO daily 01/18/2016 02/16/2016 Inactive gabapentin 100 mg capsule RxNorm: 024037 1 Capsule(s) PO QHS 01/13/2016 03/12/2016 Inactive gabapentin 100 mg capsule RxNorm: 823820 1 Capsule(s) PO QHS 01/13/2016 01/12/2016 Inactive Bydureon 2 mg/0.65 mL subcutaneous pen injector RxNorm: 7992860 1 Milliliter(s) SQ QW 01/12/2016 01/11/2016 Inactive Bydureon 2 mg/0.65 mL subcutaneous pen injector RxNorm: 1581200 2/0.65ml Milligram(s) SQ QW 01/12/2016 05/16/2016 Inactive Bydureon 2 mg/0.65 mL subcutaneous pen injector RxNorm: 4087218 1 Milliliter(s) SQ QW 01/12/2016 01/11/2016 Inactive bumetanide 1 mg tablet RxNorm: 719790 TAKE ONE TABLET BY MOUTH TWICE DAILY 01/10/2016 04/08/2016 Inactive promethazine 25 mg tablet RxNorm: 503810 Tablet(s) Tablet(s) 1 Tablet(s) PO Q6-8H as needed 12/16/2015 04/13/2016 Inactive promethazine 25 mg tablet RxNorm: 105446 Tablet(s) 1 Tablet(s) PO Q6-8H as needed 12/10/2015 12/15/2015 Inactive Trulicity 0.75 mg/0.5 mL subcutaneous pen injector RxNorm: 5453274 INJECT ONE-HALF ML SUBCUTANEOUSLY ONCE A WEEK 12/10/2015 01/11/2016 Inactive glipizide 5 mg tablet RxNorm: 313130 1 Tablet(s) PO daily 12/10/2015 01/17/2016 Inactive bumetanide 1 mg tablet RxNorm: 334947 TAKE ONE TABLET BY MOUTH TWICE DAILY 12/10/2015 01/08/2016 Inactive promethazine 25 mg tablet RxNorm: 340365 Tablet(s) 1 Tablet(s) PO Q6-8H as needed 11/18/2015 12/09/2015 Inactive promethazine 25 mg tablet RxNorm: 466815 1 Tablet(s) PO Q6-8H as needed 11/16/2015 11/17/2015 Inactive glipizide 5 mg tablet RxNorm: 521410 1/2 Tablet(s) PO daily 11/16/2015 12/15/2015 Inactive promethazine 25 mg tablet RxNorm: 205931 Tablet(s) 1 Tablet(s) PO Q6-8H as needed 11/11/2015 12/10/2015 Inactive Trulicity 0.75 mg/0.5 mL subcutaneous pen injector RxNorm: 1895796 .5 Milliliter(s) SQ QW 11/11/2015 01/11/2016 Inactive metoprolol tartrate 50 mg tablet RxNorm: 005401 1 Tablet(s) PO BID 11/11/2015 07/29/2018 Inactive promethazine 25 mg tablet RxNorm: 201804 1 Tablet(s) PO Q6-8H as needed 10/28/2015 11/10/2015 Inactive nystatin 100,000 unit/gram topical cream RxNorm: 939449 1 Gram(s) TOP BID 10/27/2015 No Stop Date Active alprazolam 0.5 mg tablet RxNorm: 872849 1 Tablet(s) PO Q8 as needed 10/27/2015 03/29/2016 Inactive hydrocodone 7.5 mg-acetaminophen 325 mg tablet RxNorm: 981212 1 Tablet(s) PO Q4H as needed 10/27/2015 11/25/2015 Inactive Trulicity 0.75 mg/0.5 mL subcutaneous pen injector RxNorm: 8578219 .5 Milliliter(s) SQ QW 10/27/2015 11/10/2015 Inactive glipizide 5 mg tablet RxNorm: 917405 1 Tablet(s) PO daily 10/27/2015 11/25/2015 Inactive hydrocodone 7.5 mg-acetaminophen 325 mg tablet RxNorm: 064812 1 Tablet(s) PO Q4H as needed 10/26/2015 10/26/2015 Inactive alprazolam 0.5 mg tablet RxNorm: 903218 1 Tablet(s) PO PRN as needed 10/26/2015 10/26/2015 Inactive promethazine 25 mg tablet RxNorm: 405896 1 Tablet(s) PO Q6-8H as needed 10/26/2015 11/15/2015 Inactive glipizide 5 mg tablet RxNorm: 412070 1/2 Tablet(s) PO daily 10/13/2015 10/26/2015 Inactive cefdinir 300 mg capsule RxNorm: 926205 1 Capsule(s) PO BID 10/05/2015 10/14/2015 Inactive prednisone 20 mg tablet RxNorm: 823712 2 Tablet(s) PO daily 10/05/2015 10/09/2015 Inactive Diflucan 150 mg tablet RxNorm: 530155 1 Tablet(s) PO daily 10/05/2015 10/11/2015 Inactive Invokamet 50 mg-500 mg tablet RxNorm: 6844897 1 Tablet(s) PO daily 10/05/2015 11/03/2015 Inactive alprazolam 0.5 mg tablet RxNorm: 361855 1 Tablet(s) PO PRN as needed 10/01/2015 02/23/2016 Inactive promethazine 25 mg tablet RxNorm: 824935 1 Tablet(s) PO Q6-8H as needed 09/30/2015 10/25/2015 Inactive bumetanide 1 mg tablet RxNorm: 375239 TAKE ONE TABLET BY MOUTH TWICE DAILY 09/30/2015 10/29/2015 Inactive bumetanide 1 mg tablet RxNorm: 406111 TAKE ONE TABLET BY MOUTH TWICE DAILY 09/20/2015 12/18/2015 Inactive bumetanide 1 mg tablet RxNorm: 301653 1 Tablet(s) PO BID 09/20/2015 10/19/2015 Inactive metoprolol succinate ER 100 mg tablet,extended release 24 hr RxNorm: 646450 1 Tablet(s) PO daily 09/16/2015 03/13/2016 Inactive spironolactone 50 mg tablet RxNorm: 440767 1 Tablet(s) PO BID 09/16/2015 03/13/2016 Inactive alprazolam 0.5 mg tablet RxNorm: 235201 1 Tablet(s) PO PRN as needed 09/16/2015 10/25/2015 Inactive hydrocodone 7.5 mg-acetaminophen 325 mg tablet RxNorm: 972592 1 Tablet(s) PO Q4H as needed 09/16/2015 10/25/2015 Inactive Invokamet 50 mg-1,000 mg tablet RxNorm: 6369603 1 Tablet(s) PO daily 09/06/2015 09/05/2015 Inactive Invokamet 50 mg-1,000 mg tablet RxNorm: 4683614 1 Tablet(s) PO daily 09/06/2015 12/04/2015 Inactive promethazine 25 mg tablet RxNorm: 787902 TAKE ONE TABLET BY MOUTH EVERY 6 TO 8 HOURS NEEDED 09/01/2015 09/16/2015 Inactive promethazine 25 mg tablet RxNorm: 579757 1 Tablet(s) PO Q6-8H as needed 08/27/2015 09/25/2015 Inactive metoprolol succinate ER 100 mg tablet,extended release 24 hr RxNorm: 330656 1 Tablet(s) PO daily 08/20/2015 09/15/2015 Inactive bumetanide 1 mg tablet RxNorm: 139116 1 Tablet(s) PO BID 08/20/2015 09/18/2015 Inactive Bumex 1 mg tablet RxNorm: 973655 1 Tablet(s) PO BID 08/20/2015 11/15/2015 Inactive Kenalog 40 mg/mL suspension for injection RxNorm: 3483336 Milliliter(s) Inj 08/20/2015 08/20/2015 Inactive bumetanide 1 mg tablet RxNorm: 593363 1 Tablet(s) PO BID 08/20/2015 08/19/2015 Inactive Levaquin 500 mg tablet RxNorm: 828681 1 Tablet(s) PO daily 08/20/2015 08/26/2015 Inactive promethazine 25 mg tablet RxNorm: 423771 1 Tablet(s) PO Q6-8H as needed 08/06/2015 08/26/2015 Inactive metformin 500 mg tablet RxNorm: 116644 Tablet(s) PO 500mg in the morning and 1000mg at night No Start Date 09/16/2015 Inactive alprazolam 0.25 mg tablet RxNorm: 484771 1 Tablet(s) PO daily as needed anxiety No Start Date 08/07/2018 Inactive Lantus Solostar 100 unit/mL (3 mL) subcutaneous insulin pen RxNorm: 514710 Unit(s) SQ UD 10 units QHS x 5 days, if blood sugars are above 200 increase to 15 units x 5 days, if still 200 increase to 20 units. No Start Date 04/13/2016 Inactive alprazolam 0.5 mg tablet RxNorm: 400352 1 Tablet(s) PO PRN as needed No Start Date 09/15/2015 Inactive cyclobenzaprine 10 mg tablet RxNorm: 272148 1 Tablet(s) PO PRN as needed No Start Date 04/05/2016 Inactive lidocaine 4 % topical patch RxNorm: 4380362 1 Patch TOP on for 12 hours and off for 12 hours No Start Date 04/12/2016 Inactive metoprolol tartrate 50 mg tablet RxNorm: 672941 1 Tablet(s) PO BID No Start Date 11/10/2015 Inactive spironolactone 50 mg tablet RxNorm: 573809 1 Tablet(s) PO BID No Start Date 09/15/2015 Inactive hydrocodone 7.5 mg-acetaminophen 325 mg tablet RxNorm: 679566 1 Tablet(s) PO Q4H as needed No Start Date 09/15/2015 Inactive promethazine 25 mg tablet RxNorm: 887965 1 Tablet(s) PO PRN as needed No Start Date 08/05/2015 Inactive Medication Administered Medication Codes Instructions Start Date Status Kenalog 40 mg/mL suspension for injection RxNorm: 3982718 Milliliter 11/01/2018 No longer Active ceftriaxone 500 mg solution for injection RxNorm: 6993833 06/05/2018 No longer Active Kenalog 40 mg/mL suspension for injection RxNorm: 2984031 15.Milliliter 02/19/2018 No longer Active Kenalog 40 mg/mL suspension for injection RxNorm: 1442225 Milliliter 09/05/2017 No longer Active Kenalog 40 mg/mL suspension for injection RxNorm: 6528756 1Milliliter 04/24/2017 No longer Active Kenalog 40 mg/mL suspension for injection RxNorm: 9670474 Milliliter 01/09/2017 No longer Active Kenalog 40 mg/mL suspension for injection RxNorm: 5310603 1Milliliter 04/06/2016 No longer Active Kenalog 40 mg/mL suspension for injection RxNorm: 5048769 1Milliliter 02/28/2016 No longer Active Kenalog 40 mg/mL suspension for injection RxNorm: 7051329 Milliliter 08/20/2015 No longer Active Immunizations Vaccine [...] Code Item Item Code Result Date %Hba1C Nrv788 % HbA1c 84855- 6 8.4 % 06/06/2018 %Hba1C Swg587 Gluc Ave 194 mg/dL 06/06/2018 Lipid Ord30 CHOL 233 mg/dL 03/14/2018 Lipid Ord30 HDL 38.0 mg/dl 03/14/2018 Lipid Ord30 TRIG 143 mg/dL 03/14/2018 Lipid Ord30 LDL 166 mg/dL 03/14/2018 Lipid Ord30 C/HDL 6.1 Ratio 03/14/2018 %Hba1C Lwb768 % HbA1c 94803- 6 9.8 % 03/14/2018 %Hba1C Sxv517 Gluc Ave 235 mg/dL 03/14/2018 Tsh Ord6 TSH (3rd IS) 1.09 uIU/mL 03/14/2018 Comp Metabolic Kqp822 NA 137 mEq/L 03/14/2018 Comp Metabolic Ebb828 K 4.6 mEq/L 03/14/2018 Comp Metabolic May977 CL 100 mEq/L 03/14/2018 Comp Metabolic Eha361 CO2 27.0 mEq/L 03/14/2018 Comp Metabolic Tiw640 ANION GAP 15 03/14/2018 Comp Metabolic Amf790 GLUCOSE 144 mg/dL 03/14/2018 Comp Metabolic Jbc927 Creat 0.5 mg/dL 03/14/2018 Comp Metabolic Euk705 eGFR 138 ml/min/1.73m2 03/14/2018 Comp Metabolic Fei495 BUN 9 mg/dL 03/14/2018 Comp Metabolic Ogk265 B/C Ratio 17.6 Ratio 03/14/2018 Comp Metabolic Ble754 CALCIUM 10.0 mg/dL 03/14/2018 Comp Metabolic Eez866 ALK PHOS 102 U/L 03/14/2018 Comp Metabolic Rbq665 AST(SGOT) 31 U/L 03/14/2018 Comp Metabolic Dvz380 ALT(SGPT) 41 U/L 03/14/2018 Comp Metabolic Qtn066 BILI T 0.5 mg/dL 03/14/2018 Comp Metabolic Jgp438 ALBUMIN 4.3 g/dL 03/14/2018 Comp Metabolic Yip620 TPRO 6.8 g/dL 03/14/2018 Comp Metabolic Rtc904 GLOB 2.5 g/dL 03/14/2018 Comp Metabolic Vky828 A/G Ratio 1.8 Ratio 03/14/2018 Comp Metabolic Wss671 Osmo 275 mOsmo 03/14/2018 Cbc With Differential [...] 29.8 pg 03/14/2018 Cbc With Differential Ord2 [place]% 5.6 % 03/14/2018 Cbc With Differential Ord2 [...] 4.31 K/ul 03/14/2018 Cbc With Differential Ord2 [place] ABS# 0.9 K/ul 03/14/2018 Cbc With Differential Ord2 Eos ABS# 0.2 K/ul 03/14/2018 Cbc With Differential Ord2 Baso ABS# 0.1 K/ul 03/14/2018 %Hba1C Akx230 % HbA1c 63867- 6 8.8 % 06/13/2017 %Hba1C Aya485 Gluc Ave 206 mg/dL 06/13/2017 Tsh Ord6 [...] 30.2 pg 06/13/2017 Cbc With Differential Ord2 [place]% 4.9 % 06/13/2017 Cbc With Differential Ord2 [...] 3.21 K/ul 06/13/2017 Cbc With Differential Ord2 [place] ABS# 0.7 K/ul 06/13/2017 Cbc With Differential Ord2 Eos ABS# 0.2 K/ul 06/13/2017 Cbc With Differential Ord2 Baso ABS# 0.1 K/ul 06/13/2017 Lipid Ord30 CHOL 219 mg/dL 06/13/2017 Lipid Ord30 HDL 40.0 mg/dl 06/13/2017 Lipid Ord30 TRIG 200 mg/dL 06/13/2017 Lipid Ord30 LDL 139 mg/dL 06/13/2017 Lipid Ord30 C/HDL 5.5 Ratio 06/13/2017 Comp Metabolic Iti573 NA 139 mEq/L 06/13/2017 Comp Metabolic Hsu177 K 4.4 mEq/L 06/13/2017 Comp Metabolic Xvt930 CL 100 mEq/L 06/13/2017 Comp Metabolic Xgv742 CO2 29.0 mEq/L 06/13/2017 Comp Metabolic Esw455 ANION GAP 14 06/13/2017 Comp Metabolic Axf120 GLUCOSE 257 mg/dL 06/13/2017 Comp Metabolic Cpu112 Creat 0.5 mg/dL 06/13/2017 Comp Metabolic Kbo405 eGFR 145 ml/min/1.73m2 06/13/2017 Comp Metabolic Haw113 BUN 13 mg/dL 06/13/2017 Comp Metabolic Hkk397 B/C Ratio 26.5 Ratio 06/13/2017 Comp Metabolic Xyi604 CALCIUM 9.7 mg/dL 06/13/2017 Comp Metabolic Eit866 ALK PHOS 98 U/L 06/13/2017 Comp Metabolic Hdl573 AST(SGOT) 30 U/L 06/13/2017 Comp Metabolic Kki857 ALT(SGPT) 43 U/L 06/13/2017 Comp Metabolic Esf093 BILI T 0.5 mg/dL 06/13/2017 Comp Metabolic Lry507 ALBUMIN 4.0 g/dL 06/13/2017 Comp Metabolic Etv402 TPRO 6.4 g/dL 06/13/2017 Comp Metabolic Roq242 GLOB 2.4 g/dL 06/13/2017 Comp Metabolic Klw989 A/G Ratio 1.7 Ratio 06/13/2017 Comp Metabolic Eyl222 Osmo 286 mOsmo 06/13/2017 %Hba1C Fie622 % HbA1c 02410- 6 11.1 % 2016 %Hba1C Kgm813 Gluc Ave 272 mg/dL 2016 C-Reactive Protein Qnt Crqnt CRP 4.7 mg/dl 2016 Comp Metabolic Kzv035 NA 136 mEq/L 2016 Comp Metabolic Two248 K 4.1 mEq/L 2016 Comp Metabolic Azw955 CL 96 mEq/L 2016 Comp Metabolic Dip483 CO2 29.0 mEq/L 2016 Comp Metabolic Jkb569 ANION GAP 15 2016 Comp Metabolic Wva742 GLUCOSE 291 mg/dL 2016 Comp Metabolic Ryi430 Creat 0.4 mg/dL 2016 Comp Metabolic Xge375 eGFR 165 ml/min/1.73m2 2016 Comp Metabolic Unp992 BUN 11 mg/dL 2016 Comp Metabolic Nat621 B/C Ratio 25.0 Ratio 2016 Comp Metabolic Pzr195 CALCIUM 9.4 mg/dL 2016 Comp Metabolic Fsp919 ALK PHOS 111 U/L 2016 Comp Metabolic Une073 AST(SGOT) 46 U/L 2016 Comp Metabolic Bek058 ALT(SGPT) 60 U/L 2016 Comp Metabolic Bdd637 BILI T 0.4 mg/dL 2016 Comp Metabolic Avq426 ALBUMIN 4.0 g/dL 2016 Comp Metabolic Cml635 TPRO 6.5 g/dL 2016 Comp Metabolic Pey169 GLOB 2.6 g/dL 2016 Comp Metabolic Eyq876 A/G Ratio 1.5 Ratio 2016 Comp Metabolic Zwk243 Osmo 282 mOsmo 2016 Cbc With Differential [...] 30.5 pg 2016 Cbc With Differential Ord2 [place]% 4.7 % 2016 Cbc With Differential Ord2 [...] 3.53 K/ul 2016 Cbc With Differential Ord2 [place] ABS# 0.7 K/ul 2016 Cbc With Differential Ord2 Eos ABS# 0.2 K/ul 2016 Cbc With Differential Ord2 Baso ABS# 0.1 K/ul 2016 Lipid Ord30 CHOL 228 mg/dL 05/05/2016 Lipid Ord30 HDL 42.0 mg/dl 05/05/2016 Lipid Ord30 TRIG 168 mg/dL 05/05/2016 Lipid Ord30 LDL 152 mg/dL 05/05/2016 Lipid Ord30 C/HDL 5.4 Ratio 05/05/2016 Comp Metabolic Vzs702 NA 135 mEq/L 05/05/2016 Comp Metabolic Dae380 K 4.1 mEq/L 05/05/2016 Comp Metabolic Xjl881 CL 99 mEq/L 05/05/2016 Comp Metabolic Nod570 CO2 29.0 mEq/L 05/05/2016 Comp Metabolic Sgw977 ANION GAP 11 05/05/2016 Comp Metabolic Zkd578 GLUCOSE 229 mg/dL 05/05/2016 Comp Metabolic Mjb406 Creat 0.5 mg/dL 05/05/2016 Comp Metabolic Wth226 eGFR 150 ml/min/1.73m2 05/05/2016 Comp Metabolic Nvz679 BUN 14 mg/dL 05/05/2016 Comp Metabolic Nds618 B/C Ratio 29.2 Ratio 05/05/2016 Comp Metabolic Fqv056 CALCIUM 9.1 mg/dL 05/05/2016 Comp Metabolic Yge064 ALK PHOS 112 U/L 05/05/2016 Comp Metabolic Tyo181 AST(SGOT) 59 U/L 05/05/2016 Comp Metabolic Kir426 ALT(SGPT) 63 U/L 05/05/2016 Comp Metabolic Nly784 BILI T 0.7 mg/dL 05/05/2016 Comp Metabolic Cbw350 ALBUMIN 3.8 g/dL 05/05/2016 Comp Metabolic Ovb890 TPRO 6.5 g/dL 05/05/2016 Comp Metabolic Inn773 GLOB 2.7 g/dL 05/05/2016 Comp Metabolic Qsm971 A/G Ratio 1.4 Ratio 05/05/2016 Comp Metabolic Ggn059 Osmo 278 mOsmo 05/05/2016 Cbc With Differential [...] 30.2 pg 05/05/2016 Cbc With Differential Ord2 [place]% 4.4 % 05/05/2016 Cbc With Differential Ord2 [...] 3.59 K/ul 05/05/2016 Cbc With Differential Ord2 [place] ABS# 0.7 K/ul 05/05/2016 Cbc With Differential Ord2 Eos ABS# 0.1 K/ul 05/05/2016 Cbc With Differential Ord2 Baso ABS# 0.1 K/ul 05/05/2016 %Hba1C Dif605 % HbA1c 78100- 6 10.4 % 05/05/2016 %Hba1C Qdk463 Gluc Ave 252 mg/dL 05/05/2016 Hcg Beta Subunit Qual Serum 266444 B-HCG QUALITATIVE NEGATIVE 12/27/2015 GC/CHL PRB 6196954 Chl trach DNA Negative 12/25/2015 GC/CHL PRB 1638819 GC PROBE Negative 12/25/2015 Comp. Metabolic Panel (14) 44249 GLUCOSE 136 mg/dL 12/17/2015 Comp. Metabolic Panel (14) 19826 BUN 9 mg/dL 12/17/2015 Comp. Metabolic Panel (14) 56583 CREATININE 0.67 mg/dL 12/17/2015 Comp. Metabolic Panel (14) 19722 SODIUM 136 mmol/L 12/17/2015 Comp. Metabolic Panel (14) 42343 POTASSIUM 4.4 mmol/L 12/17/2015 Comp. Metabolic Panel (14) 44913 CHLORIDE 95 mmol/L 12/17/2015 Comp. Metabolic Panel (14) 27881 CARBON DIOXIDE 28 mmol/L 12/17/2015 Comp. Metabolic Panel (14) 84276 CALCIUM 10.1 mg/dL 12/17/2015 Comp. Metabolic Panel (14) 13302 TOTAL PROTEIN 7.0 g/dL 12/17/2015 Comp. Metabolic Panel (14) 89675 ALBUMIN 4.5 g/dL 12/17/2015 Comp. Metabolic Panel (14) 81405 ALKALINE PHOSPHATASE 87 U/L 12/17/2015 Comp. Metabolic Panel (14) 69410 TOTAL BILIRUBIN 0.5 mg/dL 12/17/2015 Comp. Metabolic Panel (14) 47511 SGOT (AST) 38 U/L 12/17/2015 Comp. Metabolic Panel (14) 04305 SGPT (ALT) 41 U/L 12/17/2015 Comp. Metabolic Panel (14) 89779 eGFR (mL/min/1.73m2) >60 12/17/2015 Comp. Metabolic Panel (14) 06123 12/17/2015 Cbc With Differential/Platelet 52917 WBC 16.67 thou/uL 12/17/2015 Cbc With Differential/Platelet 71982 RBC 5.11 mil/uL 12/17/2015 Cbc With Differential/Platelet 88369 HEMOGLOBIN 14.8 g/dL 12/17/2015 Cbc With Differential/Platelet 95833 HEMATOCRIT 48.7 % 12/17/2015 Cbc With Differential/Platelet 13419 MCV 95.4 fL 12/17/2015 Cbc With Differential/Platelet 05547 MCH 29.0 pg 12/17/2015 Cbc With Differential/Platelet 97190 MCHC 30.4 g/dL 12/17/2015 Cbc With Differential/Platelet 33122 RDW-CV 14.6 % 12/17/2015 Cbc With Differential/Platelet 49342 PLATELET COUNT 471 thou/uL 12/17/2015 Cbc With Differential/Platelet 15692 NEUTROPHIL % 71.3 % 12/17/2015 Cbc With Differential/Platelet 46329 LYMPHOCYTE % 22.4 % 12/17/2015 Cbc With Differential/Platelet 16903 MONOCYTE % 4.8 % 12/17/2015 Cbc With Differential/Platelet 67698 EOS % 0.7 % 12/17/2015 Cbc With Differential/Platelet 36872 BASO % 0.7 % 12/17/2015 Cbc With Differential/Platelet 70446 NEUTROPHIL ABS # 11.89 thou/uL 12/17/2015 Cbc With Differential/Platelet 85018 LYMPH ABS # 3.73 thou/uL 12/17/2015 Cbc With Differential/Platelet 96529 MONOCYTE ABS # 0.80 thou/uL 12/17/2015 Cbc With Differential/Platelet 65910 EOS ABS # 0.12 thou/uL 12/17/2015 Cbc With Differential/Platelet 47246 BASO ABS # 0.12 thou/uL 12/17/2015 Comp. [...] Hgb A1C With Eag Estimation GLYCOHEMOGLOBIN A1C 10202-2 8.1 % 11/13/2015 Hgb A1C With Eag Estimation ESTIMATED AVG GLUCOSE 186 mg/dL 11/13/2015 Comp. Metabolic Panel (14) 97088 GLUCOSE 84 mg/dL 09/11/2015 Comp. Metabolic Panel (14) 78814 BUN 11 mg/dL 09/11/2015 Comp. Metabolic Panel (14) 87403 CREATININE 0.56 mg/dL 09/11/2015 Comp. Metabolic Panel (14) 72629 SODIUM 142 mmol/L 09/11/2015 Comp. Metabolic Panel (14) 70117 POTASSIUM 4.3 mmol/L 09/11/2015 Comp. Metabolic Panel (14) 46911 CHLORIDE 98 mmol/L 09/11/2015 Comp. Metabolic Panel (14) 85151 CARBON DIOXIDE 27 mmol/L 09/11/2015 Comp. Metabolic Panel (14) 84622 CALCIUM 10.1 mg/dL 09/11/2015 Comp. Metabolic Panel (14) 97439 TOTAL PROTEIN 7.2 g/dL 09/11/2015 Comp. Metabolic Panel (14) 14184 ALBUMIN 4.7 g/dL 09/11/2015 Comp. Metabolic Panel (14) 30732 ALKALINE PHOSPHATASE 109 U/L 09/11/2015 Comp. Metabolic Panel (14) 59757 TOTAL BILIRUBIN 0.3 mg/dL 09/11/2015 Comp. Metabolic Panel (14) 94330 SGOT (AST) 53 U/L 09/11/2015 Comp. Metabolic Panel (14) 82516 SGPT (ALT) 53 U/L 09/11/2015 Comp. Metabolic Panel (14) 59160 eGFR (mL/min/1.73m2) >60 09/11/2015 Comp. Metabolic Panel (14) 44797 09/11/2015 Comp. Metabolic Panel (14) 86117 GLUCOSE 183 mg/dL 08/11/2015 Comp. Metabolic Panel (14) 36753 BUN 10 mg/dL 08/11/2015 Comp. Metabolic Panel (14) 76154 CREATININE 0.46 mg/dL 08/11/2015 Comp. Metabolic Panel (14) 37507 SODIUM 138 mmol/L 08/11/2015 Comp. Metabolic Panel (14) 81392 POTASSIUM 4.0 mmol/L 08/11/2015 Comp. Metabolic Panel (14) 03020 CHLORIDE 98 mmol/L 08/11/2015 Comp. Metabolic Panel (14) 44920 CARBON DIOXIDE 29 mmol/L 08/11/2015 Comp. Metabolic Panel (14) 20054 CALCIUM 9.4 mg/dL 08/11/2015 Comp. Metabolic Panel (14) 97705 TOTAL PROTEIN 6.8 g/dL 08/11/2015 Comp. Metabolic Panel (14) 37700 ALBUMIN 4.4 g/dL 08/11/2015 Comp. Metabolic Panel (14) 89229 ALKALINE PHOSPHATASE 118 U/L 08/11/2015 Comp. Metabolic Panel (14) 49339 TOTAL BILIRUBIN <0.3 mg/dL 08/11/2015 Comp. Metabolic Panel (14) 73163 SGOT (AST) 41 U/L 08/11/2015 Comp. Metabolic Panel (14) 72761 SGPT (ALT) 55 U/L 08/11/2015 Comp. Metabolic Panel (14) 49490 eGFR (mL/min/1.73m2) >60 08/11/2015 Comp. Metabolic Panel (14) 17819 08/11/2015 Cbc With Differential/Platelet 44839 WBC 11.76 thou/uL 08/11/2015 Cbc With Differential/Platelet 78816 RBC 4.98 mil/uL 08/11/2015 Cbc With Differential/Platelet 33952 HEMOGLOBIN 14.2 g/dL 08/11/2015 Cbc With Differential/Platelet 50162 HEMATOCRIT 46.7 % 08/11/2015 Cbc With Differential/Platelet 46440 MCV 93.8 fL 08/11/2015 Cbc With Differential/Platelet 39592 MCH 28.5 pg 08/11/2015 Cbc With Differential/Platelet 44240 MCHC 30.4 g/dL 08/11/2015 Cbc With Differential/Platelet 97434 RDW-CV 14.3 % 08/11/2015 Cbc With Differential/Platelet 87032 PLATELET COUNT 382 thou/uL 08/11/2015 Cbc With Differential/Platelet 72045 NEUTROPHIL % 67.3 % 08/11/2015 Cbc With Differential/Platelet 18616 LYMPHOCYTE % 24.0 % 08/11/2015 Cbc With Differential/Platelet 08378 MONOCYTE % 6.0 % 08/11/2015 Cbc With Differential/Platelet 30178 EOS % 1.6 % 08/11/2015 Cbc With Differential/Platelet 10284 BASO % 1.0 % 08/11/2015 Cbc With Differential/Platelet 31217 NEUTROPHIL ABS # 7.91 thou/uL 08/11/2015 Cbc With Differential/Platelet 20372 LYMPH ABS # 2.82 thou/uL 08/11/2015 Cbc With Differential/Platelet 79209 MONOCYTE ABS # 0.71 thou/uL 08/11/2015 Cbc With Differential/Platelet 70585 EOS ABS # 0.19 thou/uL 08/11/2015 Cbc With Differential/Platelet 73804 BASO ABS # 0.12 thou/uL 08/11/2015 Tsh 857120 TSH 3.220 uIU/mL 08/11/2015 Lipid Panel 59842 CHOLESTEROL 193 mg/dL 08/11/2015 Lipid Panel 58569 TRIGLYCERIDES 192 mg/dL 08/11/2015 Lipid Panel 93164 HDL 38 mg/dL 08/11/2015 Lipid Panel 69645 CHOLESTEROL/HDL 5.08 08/11/2015 Lipid Panel 81316 LDL (CALCULATED) 117 mg/dL 08/11/2015 Lipid Panel 76418 LDL/HDL 3.08 08/11/2015 Lipid Panel 56898 PHENOTYPE TYPE IV BORDERLINE 08/11/2015 Review of [...] Procedure Codes Date THER/PROPH/DIAG INJ SC/IM CPT-4: 24760 11/01/2018 TRIAMCINOLONE ACET INJ NOS CPT-4: J3301 11/01/2018 THER/PROPH/DIAG INJ SC/IM CPT-4: 97148 06/05/2018 ROCEPHIN, PER 250 MG CPT- 4: J0696 06/05/2018 REMOVAL OF SKIN TAGS <W/15 CPT-4: 96173 03/14/2018 FLU VAC NO PRSV 4 PREICOUS 3 YRS+ CPT-4: 11262 03/14/2018 IMMUNIZATION ADMIN CPT- 4: 89469 03/14/2018 TRIAMCINOLONE ACET INJ NOS CPT-4: J3301 02/19/2018 THER/PROPH/DIAG INJ SC/IM CPT-4: 24325 02/19/2018 THER/PROPH/DIAG INJ SC/IM CPT-4: 90220 09/05/2017 TRIAMCINOLONE ACET INJ NOS CPT-4: J3301 09/05/2017 IMMUNIZATION ADMIN CPT- 4: 76214 04/24/2017 FLU VAC NO PRSV 4 PRECIOUS 3 YRS+ CPT-4: 72715 04/24/2017 DRAIN/INJECT JOINT/BURSA CPT-4: 30883 04/24/2017 TRIAMCINOLONE ACET INJ NOS CPT-4: J3301 04/24/2017 THER/PROPH/DIAG INJ SC/IM CPT-4: 41040 01/09/2017 TRIAMCINOLONE ACET INJ NOS CPT-4: J3301 01/09/2017 THER/PROPH/DIAG INJ SC/IM CPT-4: 51492 04/13/2016 Pneumococcal Polysaccharide Vaccine, 23-Valent, Ad CPT-4: 03115 04/13/2016 INJECT TRIGGER POINTS 3/> CPT-4: 96281 04/06/2016 TRIAMCINOLONE ACET INJ NOS CPT-4: J3301 04/06/2016 IMMUNIZATION ADMIN CPT- 4: 85369 03/30/2016 IIV4 FLU VACC NO PRESERV ID SNOMED CT: [id number] CPT-4: 06450 03/30/2016 TRIAMCINOLONE ACET INJ NOS CPT-4: J3301 02/28/2016 THER/PROPH/DIAG INJ SC/IM CPT-4: 49323 02/28/2016 TRIAMCINOLONE ACET INJ NOS CPT-4: J3301 08/20/2015 Vital Signs Date Vital 11/18/2018 Blood Pressure 1: 120/72 Code: 8480-6 BMI: 41.6 Code: 55340-2 Heart Rate 1: 97 bpm Height: 4'11" SpO2: 96% Weight: 206 lbs 11/01/2018 Blood Pressure 1: 134/70 Code: 8480-6 BMI: 43.0 Code: 81216-6 Heart Rate 1: 110 bpm Height: 4'11" SpO2: 97% Temperature: 37.3 (C) / 99.1 (F) Weight: 213 lbs 08/06/2018 Blood Pressure 1: 130/80 Code: 8480-6 BMI: 42.8 Code: 88733-0 Heart Rate 1: 110 bpm Height: 4'11" [...] 1: 127 Code: 8480-6 BMI: 42.4 Code: 82426-4 Heart Rate 1: 78 bpm Height: 4'11" SpO2: 97% Weight: 210 lbs 03/26/2018 Blood Pressure 1: 128 Code: 8480-6 BMI: 43.0 Code: 57194-3 Heart Rate 1: 120 bpm Height: 4'11" SpO2: 97% Weight: 213 lbs 03/14/2018 Blood Pressure 1: 120 Code: 8480-6 BMI: 43.0 Code: 16332-1 Heart Rate 1: 114 bpm Height: 4'11" SpO2: 95% Weight: 213 lbs 03/07/2018 Blood Pressure 1: 132 Code: 8480-6 BMI: 43.8 Code: 46387-1 Heart Rate 1: 123 bpm Height: 4'11" [...] 1: 134/86 Code: 8480-6 BMI: 45.4 Code: 88464-6 Heart Rate 1: 108 bpm Height: 4'11" SpO2: 95% Weight: 225 lbs 06/07/2017 Blood Pressure 1: 13274 Code: 8480-6 Heart Rate 1: 99 bpm Height: 4'11" SpO2: 95% 04/24/2017 Blood Pressure 1: 132/8096 Code: 8480-6 BMI: 47.7 Code: 51121-4 Heart Rate 1: 96 bpm Height: 4'11" Weight: 236 lbs 01/09/2017 Blood Pressure 1: 122/74 Code: 8480-6 BMI: 46.0 Code: 89807-2 Heart Rate 1: 114 bpm Height: 4'11" SpO2: 98% Temperature: 37.1 (C) / 98.7 (F) Weight: 228 lbs 10/30/2016 Blood Pressure 1: 124 Code: 8480-6 BMI: 49.1 Code: 23003-1 Heart Rate 1: 90 bpm Height: 4'11" SpO2: 97% Weight: 243 lbs 10/09/2016 Blood Pressure 1: 124 Code: 8480-6 BMI: 49.3 Code: 90004-6 Heart Rate 1: 91 bpm Height: 4'11" SpO2: 98% Weight: 244 lbs 09/12/2016 Blood Pressure 1: 12880 Code: 8480-6 BMI: 49.1 Code: 67874-8 Heart Rate 1: 94 bpm Height: 4'11" SpO2: 95% Weight: 243 lbs 09/05/2016 Blood Pressure 1: 11874 Code: 8480-6 BMI: 49.1 Code: 52093-6 Heart Rate 1: 100 bpm Height: 4'11" SpO2: 97% Weight: 243 lbs 06/16/2016 Blood Pressure 1: 120/62 Code: 8480-6 BMI: 49.1 Code: 93835-2 Heart Rate 1: 100 bpm Height: 4'11" SpO2: 96% Temperature: 36.7 (C) / 98.0 (F) Weight: 243 lbs 06/13/2016 Blood Pressure 1: 120/70 Code: 8480-6 Heart Rate 1: 117 bpm SpO2: 97% 05/19/2016 Blood Pressure 1: 130/64 Code: 8480-6 BMI: 49.1 Code: 34391-8 Heart Rate 1: 101 bpm Height: 4'11" SpO2: 96% Weight: 243 lbs 05/08/2016 Blood Pressure 1: 128/76 Code: 8480-6 Heart Rate 1: 119 bpm Height: SpO2: 97% Weight: 05/05/2016 Blood Pressure 1: 124/76 Code: 8480-6 BMI: 49.1 Code: 76704-5 Heart Rate 1: 75 bpm Height: 4'11" SpO2: 99% Weight: 243 lbs 04/10/2016 Blood Pressure 1: 140/80 Code: 8480-6 BMI: 49.7 Code: 15592-8 Heart Rate 1: 88 bpm Height: 4'11" SpO2: 95% Weight: 246 lbs 04/06/2016 Blood Pressure 1: 134/82 Code: 8480-6 BMI: 75.1 Code: 39270-5 Heart Rate 1: 72 bpm Height: 4' SpO2: 96% Weight: 246 lbs 03/08/2016 Blood Pressure 1: 126/72 Code: 8480-6 BMI: 49.7 Code: 81567-6 Heart Rate 1: 89 bpm Height: 4'11" SpO2: 97% Weight: 246 lbs 02/28/2016 Blood Pressure 1: 124/68 Code: 8480-6 BMI: 49.7 Code: 50788-2 Heart Rate 1: 89 bpm Height: 4'11" SpO2: 96% Weight: 246 lbs 01/18/2016 Blood Pressure 1: 142/78 Code: 8480-6 BMI: 48.9 Code: 24913-3 Heart Rate 1: 97 bpm Height: 4'11" SpO2: 97% Weight: 242 lbs 12/23/2015 Blood Pressure 1: 124/74 Code: 8480-6 BMI: 48.9 Code: 46403-9 Heart Rate 1: 106 bpm Height: 4'11" SpO2: 96% Weight: 242 lbs 12/16/2015 Blood Pressure 1: 116/82 Code: 8480-6 BMI: 48.3 Code: 27207-8 Heart Rate 1: 111 bpm Height: 4'11" SpO2: 97% Weight: 239 lbs 11/11/2015 Blood Pressure 1: 130/80 Code: 8480-6 BMI: 49.7 Code: 36362-2 Heart Rate 1: 105 bpm Height: 4'11" SpO2: 96% Weight: 246 lbs 10/27/2015 Blood Pressure 1: 122/70 Code: 8480-6 BMI: 49.5 Code: 15858-8 Heart Rate 1: 107 bpm Height: 4'11" SpO2: 96% Weight: 245 lbs 10/13/2015 Blood Pressure 1: 140/82 Code: 8480-6 BMI: 50.9 Code: 63429-7 Heart Rate 1: 111 bpm Height: 4'11" SpO2: 96% Weight: 252 lbs 10/05/2015 Blood Pressure 1: 118/70 Code: 8480-6 BMI: 51.1 Code: 46919-8 Heart Rate 1: 120 bpm Height: 4'11" SpO2: 97% Weight: 253 lbs 09/01/2015 Blood Pressure 1: 132/82 Code: 8480-6 BMI: 50.1 Code: 56653-5 Heart Rate 1: 110 bpm Height: 4'11" SpO2: 96% Weight: 248 lbs 08/20/2015 Blood Pressure 1: 132/78 Code: 8480-6 BMI: 51.7 Code: 02168-3 Heart Rate 1: 100 bpm Height: 4'11" Weight: 256 lbs 08/03/2015 Blood Pressure 1: 148/92 Code: 8480-6 BMI: 52.1 Code: 98392-4 Heart Rate 1: 100 bpm Height: 4'11" [...] bronchitis[ICD10: J41.0] [facility] CPT-4: 08915 11/18/2018 [id number] EST. PATIENT, LEVEL III Diagnosis: Acute laryngopharyngitis[ICD10: J06.0] Diagnosis: Other allergic rhinitis[ICD10: J30.89] [facility] CPT- 4: 14823 11/01/2018 [id number] EST. PATIENT, LEVEL III Diagnosis: Essential (primary) hypertension[ICD10: I10] [facility] CPT-4: 54239 08/06/2018 55671 EST. PATIENT, LEVEL III Diagnosis: Hidradenitis suppurativa[ICD10: L73.2] Gloria Hess MD, [facility] CPT- 4: 05532 07/22/2018 71489 EST. PATIENT, LEVEL III Diagnosis: Hidradenitis suppurativa[ICD10: L73.2] Diagnosis: Encounter for other specified surgical aftercare[ICD10: Z48.89] Gloria Hess MD, [facility] CPT-4: 03887 07/18/2018 03527 EST. PATIENT, LEVEL III Diagnosis: Cellulitis of right axilla[ICD10: L03.111] Diagnosis: Diarrhea, unspecified[ICD10: R19.7] Gloria Hess MD, [facility] CPT- 4: 47191 06/28/2018 ([id number]) 80908 EST. PATIENT, LEVEL II Diagnosis: Cellulitis of right axilla[ICD10: L03.111] Tamy Hess MD, [facility] CPT-4: 89268 06/17/2018 84991 EST. PATIENT, LEVEL III Diagnosis: Cellulitis of right axilla[ICD10: L03.111] Diagnosis: Type 2 diabetes mellitus with hyperglycemia[ICD10: E11.65] Gloria Hess MD, [facility] CPT-4: 91254 06/05/2018 98231 EST. PATIENT, LEVEL III Diagnosis: Gastro-esophageal reflux disease without esophagitis[ICD10: K21.9] Diagnosis: Other allergic rhinitis[ICD10: J30.89] Diagnosis: Cough[ICD10: R05] Gloria Hess MD, [facility] CPT-4: 67238 03/26/2018 ([id number]) 99495 EST. PATIENT, LEVEL III Diagnosis: Cough[ICD10: R05] Gloria Hess MD, [facility] CPT-4: 43983 03/14/2018 69399 EST. PATIENT, LEVEL IV Diagnosis: Acute laryngopharyngitis[ICD10: J06.0] Diagnosis: Other allergic rhinitis[ICD10: J30.89] Diagnosis: Cough[ICD10: R05] Gloria Hess MD, [facility] CPT-4: 06940 03/07/2018 81426 EST. PATIENT, LEVEL IV Diagnosis: Acute bronchitis due to other specified organisms[ICD10: J20.8] Diagnosis: Acute laryngopharyngitis[ICD10: J06.0] Gloria Hess MD, [facility] CPT- 4: 72128 02/19/2018 06702 EST. PATIENT, LEVEL IV Diagnosis: Candidiasis of vulva and vagina[ICD10: B37.3] Diagnosis: Rash and other nonspecific skin eruption[ICD10: R21] Gloria Hess MD, [facility] CPT-4: 84590 01/08/2018 19639 EST. PATIENT, LEVEL III Diagnosis: Sacrococcygeal disorders, not elsewhere classified[ICD10: M53.3] Diagnosis: Low back pain[ICD10: M54.5] Gloria Hess MD, [facility] CPT-4: 97481 11/23/2017 16638 EST. PATIENT, LEVEL III Diagnosis: Acute laryngopharyngitis[ICD10: J06.0] Diagnosis: Other allergic rhinitis[ICD10: J30.89] Diagnosis: Acute bronchitis due to other specified organisms[ICD10: J20.8] Gloria Hess MD, [facility] CPT-4: 39169 09/05/2017 99854 EST. PATIENT, LEVEL III Diagnosis: Pain in left foot[ICD10: M79.672] Diagnosis: Rash and other nonspecific skin eruption[ICD10: R21] Diagnosis: Candidiasis of vulva and vagina[ICD10: B37.3] Diagnosis: Localized edema[ICD10: R60.0] Diagnosis: Dyspnea, unspecified[ICD10: R06.00] Gloria Hess MD, [facility] CPT- 4: 00258 06/07/2017 34867 EST. PATIENT, LEVEL III Diagnosis: Low back pain[ICD10: M54.5] Diagnosis: Sacroiliitis, not elsewhere classified[ICD10: M46.1] Diagnosis: Pain in left foot[ICD10: M79.672] Diagnosis: VACCIN FOR INFLUENZA[ICD10: Z23] Gloria Hess MD, [facility] CPT-4: 97790 04/24/2017 27437 EST. PATIENT, LEVEL III Diagnosis: Acute suppurative otitis media without spontaneous rupture of ear drum, right ear[ICD10: H66.001] Diagnosis: Other allergic rhinitis[ICD10: J30.89] Gloria Hess MD, [facility] CPT- 4: 27782 01/09/2017 27941 EST. PATIENT, LEVEL IV Diagnosis: Candidiasis of vulva and vagina[ICD10: B37.3] Diagnosis: Type 2 diabetes mellitus with hyperglycemia[ICD10: E11.65] Gloria Hess MD, [facility] CPT-4: 69754 10/30/2016 57698 EST. PATIENT, LEVEL III Diagnosis: Candidiasis of vulva and vagina[ICD10: B37.3] Diagnosis: Type 2 diabetes mellitus with hyperglycemia[ICD10: E11.65] Gloria Hess MD, [facility] CPT-4: 54722 10/09/2016 22007 EST. PATIENT, LEVEL IV Diagnosis: Umbilical hernia without obstruction or gangrene[ICD10: K42.9] Gloria Hess MD, [facility] CPT-4: 17670 09/12/2016 01680 EST. PATIENT, LEVEL III Diagnosis: Epigastric pain[ICD10: R10.13] Diagnosis: Candidiasis of vulva and vagina[ICD10: B37.3] Diagnosis: Type 2 diabetes mellitus with hyperglycemia[ICD10: E11.65] Gloria Hess MD, [facility] CPT-4: 26256 09/05/2016 80936 EST. PATIENT, LEVEL III Diagnosis: Acute laryngopharyngitis[ICD10: J06.0] Diagnosis: Other allergic rhinitis[ICD10: J30.89] Gloria Hess MD, [facility] CPT- 4: 56225 06/16/2016 05177 EST. PATIENT, LEVEL III Diagnosis: Type 2 diabetes mellitus with hyperglycemia[ICD10: E11.65] Diagnosis: Other obesity due to excess calories[ICD10: E66.09] Gloria Hess MD, [facility] CPT-4: 84784 06/13/2016 22497 EST. PATIENT, LEVEL III Diagnosis: Type 2 diabetes mellitus with hyperglycemia[ICD10: E11.65] Diagnosis: Other obesity due to excess calories[ICD10: E66.09] Gloria Hess MD, [facility] CPT-4: 93005 05/19/2016 94255 EST. PATIENT, LEVEL III Diagnosis: Type 2 diabetes mellitus with hyperglycemia[ICD10: E11.65] Diagnosis: Other obesity due to excess calories[ICD10: E66.09] Gloria Hess MD [facility] CPT-4: 52316 05/08/2016 26151 EST. PATIENT, LEVEL III Diagnosis: Type 2 diabetes mellitus without complications[ICD10: E11.9] Gloria Hess MD [facility] CPT-4: 43207 05/05/2016 05055 EST. PATIENT, LEVEL III Diagnosis: Pain in right shoulder[ICD10: M25.511] Gloria Hess MD [facility] CPT- 4: 24140 04/10/2016 68744 EST. PATIENT, LEVEL III Diagnosis: Pain in right shoulder[ICD10: M25.511] Diagnosis: Other muscle spasm[ICD10: M62.838] Diagnosis: Type 2 diabetes mellitus without complications[ICD10: E11.9] Gloria Hess MD [facility] CPT-4: 26622 04/06/2016 65628 EST. PATIENT, LEVEL IV Diagnosis: Acute bronchitis due to other specified organisms[ICD10: J20.8] Diagnosis: Other acute sinusitis[ICD10: J01.80] Diagnosis: Acne vulgaris[ICD10: L70.0] Diagnosis: Morbid (severe) obesity due to excess calories[ICD10: E66.01] Gloria Hess MD [facility] CPT-4: 48958 03/08/2016 46949 EST. PATIENT, LEVEL IV Diagnosis: Other acute sinusitis[ICD10: J01.80] Diagnosis: Localized enlarged lymph nodes[ICD10: R59.0] Gloria Hess MD [facility] CPT-4: 93217 02/28/2016 00423 EST. PATIENT, LEVEL III Diagnosis: Type 2 diabetes mellitus without complications[ICD10: E11.9] Gloria Hess MD [facility] CPT-4: 20844 01/18/2016 (18937) PREV VISIT EST AGE 40-64 Diagnosis: Encounter for gynecological examination (general) (routine) without abnormal findings[ICD10: Z01.419] Diagnosis: Excessive and frequent menstruation with irregular cycle[ICD10: N92.1] Gloria Hess MD [facility] CPT-4: 42245 12/23/2015 15988 EST. PATIENT, LEVEL III Diagnosis: Type 2 diabetes mellitus without complications[ICD10: E11.9] Gloria Hess MD, [facility] CPT-4: 56453 12/16/2015 92638 EST. PATIENT, LEVEL III Diagnosis: Type 2 diabetes mellitus without complications[ICD10: E11.9] Diagnosis: Other obesity due to excess calories[ICD10: E66.09] Gloria Hess MD, [facility] CPT-4: 27221 11/11/2015 67995 EST. PATIENT, LEVEL III Diagnosis: Type 2 diabetes mellitus without complications[ICD10: E11.9] Diagnosis: Other obesity due to excess calories[ICD10: E66.09] Gloria Hess MD, [facility] CPT-4: 46447 10/27/2015 45842 EST. PATIENT, LEVEL III Diagnosis: Type 2 diabetes mellitus without complications[ICD10: E11.9] Diagnosis: Other obesity due to excess calories[ICD10: E66.09] Diagnosis: Other insomnia[ICD10: G47.09] Gloria Hess MD, [facility] CPT-4: 63112 10/13/2015 86252 EST. PATIENT, LEVEL IV Diagnosis: Acute recurrent maxillary sinusitis[ICD10: J01.01] Diagnosis: Allergic rhinitis due to pollen[ICD10: J30.1] Diagnosis: Other obesity due to excess calories[ICD10: E66.09] Gloria Hess MD, [facility] CPT-4: 80697 10/05/2015 83606 EST. PATIENT, LEVEL IV Diagnosis: Polycystic ovarian syndrome[ICD10: E28.2] Diagnosis: Other skin changes[ICD10: R23.8] Diagnosis: Other abnormal glucose[ICD10: R73.09] Gloria Hess MD, [facility] CPT- 4: 52769 09/01/2015 18289 EST. PATIENT, LEVEL IV Diagnosis: Acute recurrent maxillary sinusitis[ICD10: J01.01] Diagnosis: Morbid (severe) obesity due to excess calories[ICD10: E66.01] Diagnosis: Essential (primary) hypertension[ICD10: I10] Diagnosis: Allergic rhinitis due to pollen[ICD10: J30.1] Gloria Hess MD, [facility] CPT-4: 62670 08/20/2015 (48968) OFFICE VISIT, NEW - LEVEL 4 Diagnosis: Essential (primary) hypertension[ICD10: I10] Diagnosis: Obstructive sleep apnea (adult) (pediatric)[ICD10: G47.33] Diagnosis: Other insomnia[ICD10: G47.09] Diagnosis: Snoring[ICD10: R06.83] Diagnosis: Morbid (severe) obesity due to excess calories[ICD10: E66.01] Gloria Hess MD, [facility] CPT-4: 79208 08/03/2015 Plan of Care Planned Activity Notes [...] allergy spray. 11/18/2018 Appointment: Gloria Scott WPtel: [address] [place], [place] [phone] (30 min) [facility] 11/18/2018 Patient Education: Patient Medication Summary Completed [...] allergy spray. 11/01/2018 Appointment: Gloria Scott WPtel: [address] [place], [place] [phone] (30 min) Complex 11/01/2018 Patient Education: Patient Medication Summary Completed 11/01/2018 Patient Education: Diabetes Completed 11/01/2018 Care Plan: Comp Metabolic Pending 11/01/2018 Care Plan: Cbc With Differential Pending 11/01/2018 Care Plan: %Hba1C LOINC : 59302-6 Pending 11/01/2018 Care Plan: Tsh Pending 11/01/2018 [...] concerns. 08/06/2018 [facility]ment: [facility] [phone] [facility] ([facility]) Complex 08/06/2018 Patient Education: Patient Medication Summary Completed 08/06/2018 Visit Plan: incision - healing well - Wound Instructions - Pt was instructed to keep the wound clean, wash with antibacterial soap, use triple antibiotic ointment, call if redness, pustular drainage, or any other a cute concerns. Hidradenitis suppurativa - will refer to dermatology. 07/22/2018 Appointment: Gloria Scott WPtel: [facility] ([facility] [place]) Complex 07/22/2018 Patient Education: Patient Medication Summary Completed 07/22/2018 Visit Plan: Hidradenitis suppurativa - post incision - wound healing well - continue to monitor Wound Instructions - Pt was instructed to keep the wound clean, wash with antibacterial soap, use triple antibiotic oi ntment, call if redness, pustular drainage, or any other acute concerns. 07/18/2018 Appointment: [facility] [phone] [facility] ([facility] min) Complex 07/18/2018 Patient Education: Patient Medication Summary Completed 07/18/2018 Referral: Roni Roberts pt will be notified by there office to schedule Initiated 07/03/2018 Care Plan: Referral Order SNOMED-CT : [id number] Pending 07/01/2018 Visit Plan: Abscess/Cellulitis - The [...] stomach pain. 06/28/2018 Appointment: Gloria Scott WPtel: [facility] (30 min) Complex 06/28/2018 Patient Education: Patient Medication Summary Completed 06/28/2018 Visit Plan: Cellulitis-right wvelxk-mqyepgtp-ftm bactroban ointment until healed completely-call with any concerns 06/17/2018 Appointment: Tamy Lugo WPtel: [address] [place] [phone] (15 min) Moderate 06/17/2018 Patient Education: Patient Medication Summary Completed 06/17/2018 Visit Plan: Abscess/Cellulitis - The patient was instructed in appropriate wound care. The patient was instructed to use the antibiotic ointment as per RX. The patient is to call for any change in symptoms, increase in size of the lesion, increase in pain, worsening redness, warmth, discharge. 06/05/2018 Appointment: Gloria Scott WPtel: [facility] (30 min) Complex 06/05/2018 Patient Education: Patient Medication Summary Completed 06/05/2018 Patient Education: Diabetes Completed 06/05/2018 [facility] Ref[facility] Initiated 04/19/2018 Care Plan: Referral Order SNOMED-CT : [id number] Pending 03/27/2018 Visit Plan: Esophageal Reflux - [...] allergy spray. 03/26/2018 Appointment: Gloria Scott WPtel: [address] [place], [place] [phone] (15 min) Moderate 03/26/2018 Patient Education: Patient Medication Summary Completed 03/26/2018 Appointment: Gloria Scott WPtel: [address] [place], [place] [phone] (15 min) Moderate 03/25/2018 Visit Plan: Skin [...] and bandaids. 03/14/2018 Appointment: Gloria Scott WPtel[facility] (15 min) Moderate 03/14/2018 Patient Education: Patient [...] improve 03/07/2018 Appointment: [facility] [phone] [facility] (15 min) Moderate 03/07/2018 Patient Education: Patient [...] worsen. 02/19/2018 Appointment: Gloria Scott WPtel: [phone] [facility] (15 min) Moderate 02/19/2018 Patient Education: Patient [...] discharge. 01/08/2018 Appointment: Gloria Scott WPtel: [phone] [facility] (30 min) Complex 01/08/2018 Patient Education: Patient [...] worsen. 09/05/2017 Appointment: [facility] [phone] [facility] [place] (15 min) Moderate 09/05/2017 Patient Education: [...] send RX 06/07/2017 Appointment: [facility]Pt[facility] [phone] [facility] [place] (15 min) Moderate 06/07/2017 Patient Education: [...] of injection. 04/24/2017 Appointment: Gloria Scott WPtel: [facility] [place] (30 min) Complex 04/24/2017 Patient Education: Patient Medication Summary Completed 04/24/2017 Appointment: Gloria Scott WPtel: [facility] (30 min) Complex 03/09/2017 Appointment: [facility]Ptel[facility] [phone] [facility] (30 min) Complex 02/13/2017 Visit Plan: Otitis [...] allergy spray. 01/09/2017 Appointment: [facility] [phone] [facility] (10 min) Simple 01/09/2017 Patient Education: Patient Medication Summary Completed 01/09/2017 Patient Education: Obesity Completed 01/09/2017 Visit Plan: Vaginal candidiasis - will send RX - pt is to notify clinic if symptoms do not improve, if they worsen, or with any questions or concerns. Diabetes Mellitus - Uncontrolled - Will refer to manager student services - I have recommended for the patient [...] Mellitus - Uncontrolled - Will refer to manager student services - I have recommended for the patient [...] control. 10/09/2016 Appointment: Gloria Scott WPtel: [phone] [facility] (30 min) Complex 10/09/2016 Patient Education: Patient Medication Summary Completed 10/09/2016 Patient Education: Obesity Completed 10/09/2016 Referral: Roni Roberts Referral Completed 09/18/2016 Care Plan: CT ABD & PELV W/CONTRAST LOINC : 75660-3 Pending 09/13/2016 Care Plan: Referral Order SNOMED-CT : [id number] Pending 09/13/2016 Visit Plan: Ongoing abdominal pain/hernia - will send RX - will refer - pt is to notify clinic if symptoms do not improve, if they worsen, or with any questions or concerns. 09/12/2016 Appointment: Gloria Scott WPtel: [phone] [facility] (30 min) Complex 09/12/2016 Patient Education: Patient Medication Summary Completed 09/12/2016 Patient Education: Obesity Completed 09/12/2016 Care Plan: Referral Order SNOMED-CT : [id number] Pending 09/12/2016 Visit Plan: Ongoing abdominal/epigastric pain [...] control. 09/05/2016 Appointment: Gloria Scott WPtel: [phone] (30 min) Complex 09/05/2016 Patient Education: [...] spray. 06/16/2016 Appointment: Gloria Scott WPtel: [address] (10 min) Simple 06/16/2016 Patient Education: [...] check. 06/13/2016 Appointment: Gloria Scott WPtel: [phone] (30 min) Complex 06/13/2016 Patient Education: Patient Medication Summary Completed 06/13/2016 Patient Education: Obesity Completed 06/13/2016 Appointment: Gloria Scott WPtel: [phone] [facility] (30 min) Complex 06/08/2016 Visit Plan: Diabetes [...] weight check. 05/19/2016 Appointment: Tamy Lugo WPtel: [phone] [phone] [place] (30 min) Complex 05/19/2016 Patient Education: [...] check. 05/08/2016 Appointment: Gloria Scott WPtel: [phone] [facility] [place] (15 min) Moderate 05/08/2016 Patient Education: [...] the morning. 05/05/2016 Appointment: Tamy Lugo WPtel: [phone] [place] (15 min) Moderate 05/05/2016 Patient Education: Patient Medication Summary Completed 05/05/2016 Patient Education: Obesity Completed 05/05/2016 Care Plan: Comp Metabolic Pending 05/05/2016 Appointment: Jocelyn Hess WPtel: [facility]5 [facility] Surgical Procedure 04/17/2016 Appointment: Injection 04/13/2016 Patient Education: Patient Medication Summary Completed 04/13/2016 Visit Plan: Right shoulder pain - will refer to PT - The pt is to use prn antiinflammatories to manage acute pain. The patient is to call the office if the pain is worsening or does not improve. 04/10/2016 Appointment: Gloria Scott WPtel: [facility] [place] (30 min) Complex 04/10/2016 Patient Education: [...] glucose control. 04/06/2016 Appointment: [facility]Ptel: [phone] [facility] [place] (15 min) Moderate 04/06/2016 Patient Education: [...] order [place] 02/28/2016 Appointment: [facility]Ptel[facility] [phone] [facility] [place] (30 min) Complex 02/28/2016 Patient Education: Patient Medication Summary Completed 02/28/2016 Patient Education: Obesity Completed 02/28/2016 Appointment: Gloria Scott WPtel: [phone] [facility] (15 min) Moderate 01/31/2016 Visit Plan: Diabetes [...] prn. 12/23/2015 Appointment: [facility]el[facility] [phone] [facility] [facility] 12/23/2015 Patient Education: Patient Medication [...] ADD TO BLOOD IN THE LAB. [facility] : 98552-5 Pending 08/13/2015 Visit Plan: Hypertension - uncontrolled [...] Referral: Roni Roberts Referral Com[id number] Ref[facility] Initiated Referral: Roni Roberts Referral Initiated Referral: Roni Roberts Referral Initiated Instructions Comment . Diabetes Mellitus - I have recommended [...] Mellitus - Uncontrolled - Will refer to manager student services - I have recommended for the patient [...] Mellitus - Uncontrolled - Will refer to manager student services - I have recommended for the patient [...] is to call for acute concerns. . Otitis Media - discussed the diagnosis [...] allow for greater blood glucose control. . Abscess/Cellulitis - The patient was instructed [...] x 3 days will refer you to [facility] for hidradenitis suppurativa . incision - healing well - Wound Instructions - Pt was instructed to keep the wound clean, wash with antibacterial soap, use triple antibiotic ointment, call if redness, pustular drainage, or any other acute concerns. Hidradenitis suppurativa - will refer to [facility]. . Vaginal candidiasis - will send RX [...] and 5 units in the morning. . Hidradenitis suppurativa - post incision - wound healing well - continue to monitor Wound Instructions - Pt was instructed to keep the wound clean, wash with antibacterial soap, use triple antibiotic ointment, call if redness, pustular drainage, or any other acute concerns. . Diabetes Mellitus - Uncontrolled - I [...] with any questions or concerns. . Cellulitis-right mujvtr-mdcybhna-vdw bactroban ointment until healed completely-call with any [...]
--- OUTSIDE RECORDS SUMMARY | 2018-12-17 02:34 | XMS REPORT | CCD ---
Author [facility] Address [address] [place] [address] Phone Care Team Providers Care Biomedical Equipment Specialist Name Role Phone PP Unavailable CCM Unavailable Summary Purpose Interface Exchange Insurance Providers Payer name Policy type / Coverage type Covered republican ID Effective Begin Date Effective End Date [facility] Commercial Insurance [id number] Unknown Unknown Family history Father Diagnosis Age At Onset Hypertension Unknown Arthritis Unknown Mother Diagnosis Age At Onset Arthritis Unknown Hyperlipidemia Unknown Daughter Diagnosis Age At Onset Asthma Unknown Social History Social History Element Codes Description Effective Dates Marital status Unknown Darin 08/03/2015 Number of children Unknown 1 08/03/[address]: 9434787 Quit less than 5 years ago 08/03/2015 [...] ICD-9: 465.0 ICD-10: J06.0 Active 06/15/2016 Unknown Essential (primary) hypertension ICD-9: 401.1 ICD-10: I10 Active 08/06/2018 Unknown Other allergic rhinitis ICD-9: 477.8 ICD-10: J30.89 Active 06/15/2016 Unknown Other fatigue ICD-9: 780.79 ICD-10: R53.83 [...] laryngopharyngitis ICD-9: 465.0 ICD-10: J06.0 06/15/2016 Active Essential (primary) hypertension ICD-9: 401.1 ICD-10: I10 08/06/2018 Active Other allergic rhinitis ICD-9: 477.8 ICD-10: J30.89 06/15/2016 Active Other fatigue ICD-9: 780.79 ICD-10: R53.83 [...] Start Date Stop Date Status Fill Instructions Zithromax Z-Rashid 250 mg tablet RxNorm: 106668 1 Tablet(s) PO UD 11/01/2018 No Stop Date Active promethazine 25 mg tablet RxNorm: 167524 Tablet(s) TABLET(S) TAKE ONE TABLET BY MOUTH EVERY 6 TO 8 HOURS NEEDED 11/01/2018 No Stop Date Active Kenalog 40 mg/mL suspension for injection RxNorm: 2558883 Milliliter(s) Inj 11/01/2018 11/01/2018 Inactive prednisone 20 mg tablet RxNorm: 965426 2 Tablet(s) PO daily 11/01/2018 11/05/2018 Inactive ibuprofen 800 mg tablet RxNorm: 971192 1 Tablet(s) PO TID as needed for pain 09/05/2018 09/14/2018 Inactive Phenergan with Codeine Syrup RxNorm: 5-10 ML PO QID as needed cough 08/08/2018 No Stop Date Active alprazolam 0.25 mg tablet RxNorm: 099795 1 Tablet(s) PO daily as needed anxiety 08/08/2018 No Stop Date Active metoprolol succinate ER 100 mg tablet,extended release 24 hr RxNorm: 776226 Tablet(s) TAKE ONE TABLET BY MOUTH ONCE DAILY 08/06/2018 No Stop Date Active ibuprofen 800 mg tablet RxNorm: 638748 1 Tablet(s) PO TID as needed for pain 08/06/2018 08/15/2018 Inactive Zithromax Z-Rashid 250 mg tablet RxNorm: 463780 1 Tablet(s) PO UD 08/06/2018 09/04/2018 Inactive metoprolol succinate ER 50 mg tablet,extended release 24 hr RxNorm: 119341 1 Tablet(s) PO daily 08/06/2018 09/04/2018 Inactive Lyrica 100 mg capsule RxNorm: 151457 1 Capsule(s) PO TID 07/25/2018 10/16/2018 Inactive Lyrica 100 mg capsule RxNorm: 153507 1 Capsule(s) PO TID 07/25/2018 07/24/2018 Inactive mupirocin 2 % topical ointment RxNorm: 295900 1 Application TOP daily 07/22/2018 07/28/2018 Inactive ibuprofen 800 mg tablet RxNorm: 217249 1 Tablet(s) PO TID as needed for pain 07/22/2018 07/31/2018 Inactive hydrocodone 7.5 mg-acetaminophen 325 mg tablet RxNorm: 817296 1 Tablet(s) PO Q4H as needed 07/18/2018 08/16/2018 Inactive promethazine 25 mg tablet RxNorm: 616402 TABLET(S) TAKE ONE TABLET BY MOUTH EVERY 6 TO 8 HOURS NEEDED 07/05/2018 2018 Inactive hyoscyamine 0.125 mg sublingual tablet RxNorm: 1214333 1 Tablet(s) SL TID as needed diarrhea 06/28/2018 07/07/2018 Inactive mupirocin 2 % topical ointment RxNorm: 884246 1 Application TOP BID 06/17/2018 06/26/2018 Inactive mupirocin 2 % topical ointment RxNorm: 978889 1 Application TOP BID 06/05/2018 No Stop Date Active Keflex 500 mg capsule RxNorm: 888858 1 Capsule(s) PO TID 06/05/2018 06/11/2018 Inactive ceftriaxone 500 mg solution for injection RxNorm: 3455037 Inj 06/05/2018 06/05/2018 Inactive Diflucan 150 mg tablet RxNorm: 322134 1 Tablet(s) PO daily 06/05/2018 07/02/2018 Inactive Protonix 40 mg tablet,delayed release RxNorm: 808183 1 Tablet(s) PO BID x 1 week then daily 03/26/2018 No Stop Date Active Phenergan with Codeine Syrup RxNorm: 5-10 ML PO QID as needed cough 03/19/2018 08/07/2018 Inactive promethazine 25 mg tablet RxNorm: 850751 Tablet(s) TAKE ONE TABLET BY MOUTH EVERY 6 TO 8 HOURS NEEDED 03/15/2018 07/04/2018 Inactive Singulair 10 mg tablet RxNorm: 956088 1 Tablet(s) PO daily 03/14/2018 04/12/2018 Inactive metoprolol succinate ER 100 mg tablet,extended release 24 hr RxNorm: 678332 1 Tablet(s) PO daily 03/07/2018 04/05/2018 Inactive Zithromax Z-Rashid 250 mg tablet RxNorm: 182206 1 Tablet(s) PO UD 03/07/2018 03/07/2018 Inactive prednisone 20 mg tablet RxNorm: 886180 2 Tablet(s) PO daily 03/07/2018 03/11/2018 Inactive albuterol sulfate 2.5 mg/3 mL (0.083 %) solution for nebulization RxNorm: 819340 3 Milliliter(s) INH Q4-6H as needed dyspnea 02/19/2018 No Stop Date Active Diflucan 150 mg tablet RxNorm: 019022 Tablet(s) TAKE ONE TABLET BY MOUTH ONCE DAILY FOR 7 DAYS THEN TAKE ONE TABLET BY MOUTH ONCE A WEEK 02/19/2018 06/04/2018 Inactive Levaquin 500 mg tablet RxNorm: 407856 1 Tablet(s) PO daily 02/19/2018 02/25/2018 Inactive prednisone 20 mg tablet RxNorm: 485006 2 Tablet(s) PO daily 02/19/2018 02/23/2018 Inactive Kenalog 40 mg/mL suspension for injection RxNorm: 4918044 15. Milliliter(s) Inj 02/19/2018 02/19/2018 Inactive hydrocodone 7.5 mg-acetaminophen 325 mg tablet RxNorm: 579798 1 Tablet(s) PO Q4H as needed 02/05/2018 03/06/2018 Inactive clindamycin HCl 300 mg capsule RxNorm: 429557 1 Capsule(s) PO TID 01/09/2018 01/15/2018 Inactive promethazine 25 mg tablet RxNorm: 140952 Tablet(s) TAKE ONE TABLET BY MOUTH EVERY 6 TO 8 HOURS NEEDED 01/08/2018 03/14/2018 Inactive Diflucan 150 mg tablet RxNorm: 810411 Tablet(s) TAKE ONE TABLET BY MOUTH ONCE DAILY FOR 7 DAYS THEN TAKE ONE TABLET BY MOUTH ONCE A WEEK 01/08/2018 02/18/2018 Inactive Bactrim DS 800 mg-160 mg tablet RxNorm: 794572 1 Tablet(s) PO BID 01/08/2018 01/17/2018 Inactive prednisone 20 mg tablet RxNorm: 087934 2 Tablet(s) PO daily 11/23/2017 11/27/2017 Inactive Zithromax Z-Rashid 250 mg tablet RxNorm: 448456 1 Tablet(s) PO UD 09/05/2017 02/11/2018 Inactive Kenalog 40 mg/mL suspension for injection RxNorm: 8535234 Milliliter(s) Inj 09/05/2017 09/05/2017 Inactive prednisone 20 mg tablet RxNorm: 063690 2 Tablet(s) PO daily 09/05/2017 09/09/2017 Inactive ibuprofen 800 mg tablet RxNorm: 028849 1 Tablet(s) PO TID 07/27/2017 02/21/2018 Inactive alprazolam 0.5 mg tablet RxNorm: 278448 1 Tablet(s) PO Q8 as needed 06/20/2017 07/09/2017 Inactive metoprolol succinate ER 100 mg tablet,extended release 24 hr RxNorm: 225192 TAKE ONE TABLET BY MOUTH ONCE DAILY 06/20/2017 08/05/2018 Inactive Zithromax Z-Rashid 250 mg tablet RxNorm: 460105 1 Tablet(s) PO UD 06/15/2017 07/25/2017 Inactive Xopenex HFA 45 mcg/actuation aerosol inhaler RxNorm: 689675 INHALE ONE PUFF INTO LUNGS NEEDED 06/13/2017 07/14/2017 Inactive Xopenex 1.25 mg/3 mL solution for nebulization RxNorm: 455598 Milliliter(s) USE ONE VIAL IN NEBULIZER THREE TIMES DAILY 06/08/2017 No Stop Date Active Flovent HFA 44 mcg/actuation aerosol inhaler RxNorm: 138889 2 Puff(s) INH BID 06/08/2017 No Stop Date Active potassium chloride ER 10 mEq tablet,extended release RxNorm: 445371 1 Tablet(s) PO daily 06/08/2017 06/10/2017 Inactive Lasix 20 mg tablet RxNorm: 821250 1 Tablet(s) PO daily 06/08/2017 06/10/2017 Inactive Xopenex HFA 45 mcg/actuation aerosol inhaler RxNorm: 160113 INHALE ONE PUFF INTO LUNGS NEEDED 06/08/2017 06/12/2017 Inactive triamcinolone acetonide 0.025 % topical cream RxNorm: 4815528 1 Application TOP BID 06/07/2017 No Stop Date Active ibuprofen 800 mg tablet RxNorm: 586945 1 Tablet(s) PO TID 06/07/2017 07/06/2017 Inactive cyclobenzaprine 5 mg tablet RxNorm: 838476 1/2 Tablet(s) PO TID as needed muscle spasms 05/28/2017 06/01/2017 Inactive Diflucan 150 mg tablet RxNorm: 382818 TAKE ONE TABLET BY MOUTH ONCE DAILY FOR 7 DAYS THEN TAKE ONE TABLET BY MOUTH ONCE A WEEK 05/28/2017 01/07/2018 Inactive bumetanide 1 mg tablet RxNorm: 441128 TAKE ONE TABLET BY MOUTH TWICE DAILY 05/25/2017 No Stop Date Active meloxicam 7.5 mg tablet RxNorm: 990146 1 Tablet(s) PO daily as needed 05/25/2017 07/23/2017 Inactive Xopenex 1.25 mg/3 mL solution for nebulization RxNorm: 276081 USE ONE VIAL IN NEBULIZER THREE TIMES DAILY 05/25/2017 06/07/2017 Inactive Protonix 40 mg tablet,delayed release RxNorm: 119436 1 Tablet(s) PO daily 05/08/2017 11/03/2017 Inactive Protonix 40 mg tablet,delayed release RxNorm: 972026 1 Tablet(s) PO daily 05/04/2017 05/03/2017 Inactive Protonix 40 mg tablet,delayed release RxNorm: 371589 1 Tablet(s) PO daily 05/04/2017 05/07/2017 Inactive meloxicam 7.5 mg tablet RxNorm: 890352 1 Tablet(s) PO daily as needed 04/25/2017 04/24/2017 Inactive meloxicam 7.5 mg tablet RxNorm: 171727 1 Tablet(s) PO daily as needed 04/25/2017 05/04/2017 Inactive promethazine 25 mg tablet RxNorm: 986305 TAKE ONE TABLET BY MOUTH EVERY 6 TO 8 HOURS NEEDED 04/25/2017 01/07/2018 Inactive Kenalog 40 mg/mL suspension for injection RxNorm: 8868673 1 Milliliter(s) Inj 04/24/2017 04/24/2017 Inactive cyclobenzaprine 5 mg tablet RxNorm: 549489 1/2 Tablet(s) PO TID as needed muscle spasms 04/24/2017 04/28/2017 Inactive Xopenex HFA 45 mcg/actuation aerosol inhaler RxNorm: 341143 INHALE ONE PUFF INTO LUNGS NEEDED 03/30/2017 04/14/2017 Inactive Humalog KwikPen 200 unit/mL (3 mL) subcutaneous RxNorm: 8646517 INJECT 35 UNITS SUBCUTANEOUSLY BEFORE MEAL(S) 03/30/2017 06/05/2017 Inactive promethazine 25 mg tablet RxNorm: 271720 Tablet(s) TAKE ONE TABLET BY MOUTH EVERY 6 TO 8 HOURS NEEDED 03/12/2017 03/26/2017 Inactive cyclobenzaprine 10 mg tablet RxNorm: 980190 TAKE ONE TABLET BY MOUTH ONCE DAILY NEEDED 03/06/2017 03/15/2017 Inactive lidocaine 5 % topical patch RxNorm: 4200308 USE ONE PATCH TOPICALLY DAILY. 12 HOURS ON AND THEN 12 HOURS OFF. 03/06/2017 03/15/2017 Inactive Humalog KwikPen 200 unit/mL (3 mL) subcutaneous RxNorm: 2058062 INJECT 35 UNITS SUBCUTANEOUSLY BEFORE MEAL(S) 02/20/2017 03/25/2017 Inactive promethazine 25 mg tablet RxNorm: 888970 Tablet(s) TAKE ONE TABLET BY MOUTH EVERY 6 TO 8 HOURS NEEDED 02/20/2017 03/06/2017 Inactive Xopenex HFA 45 mcg/actuation aerosol inhaler RxNorm: 089143 INHALE ONE PUFF INTO LUNGS NEEDED 02/20/2017 03/07/2017 Inactive bumetanide 1 mg tablet RxNorm: 406839 TAKE ONE TABLET BY MOUTH TWICE DAILY 02/15/2017 05/15/2017 Inactive bumetanide 1 mg tablet RxNorm: 248436 TAKE ONE TABLET BY MOUTH TWICE DAILY 01/15/2017 02/13/2017 Inactive metoprolol succinate ER 100 mg tablet,extended release 24 hr RxNorm: 978414 TAKE ONE TABLET BY MOUTH ONCE DAILY 01/11/2017 06/19/2017 Inactive Zithromax Z-Rashid 250 mg tablet RxNorm: 397354 1 Tablet(s) PO UD 01/09/2017 03/13/2017 Inactive meclizine 25 mg tablet RxNorm: 785171 1 Tablet(s) PO TID as needed 01/09/2017 01/18/2017 Inactive Kenalog 40 mg/mL suspension for injection RxNorm: 3022282 Milliliter(s) Inj 01/09/2017 01/09/2017 Inactive promethazine 25 mg tablet RxNorm: 834496 Tablet(s) TAKE ONE TABLET BY MOUTH EVERY 6 TO 8 HOURS NEEDED 12/29/2016 01/12/2017 Inactive Voltaren 1 % topical gel RxNorm: 444456 APPLY TOPICALLY TO AFFECTED AREA TWICE DAILY 12/25/2016 01/13/2017 Inactive cyclobenzaprine 10 mg tablet RxNorm: 376940 TAKE ONE TABLET BY MOUTH NEEDED 12/22/2016 12/31/2016 Inactive lidocaine 5 % topical patch RxNorm: 3581585 USE ONE PATCH TOPICALLY DAILY. 12 HOURS ON AND THEN 12 HOURS OFF. 12/22/2016 12/31/2016 Inactive hydrocodone 7.5 mg-acetaminophen 325 mg tablet RxNorm: 071032 1 Tablet(s) PO Q4H as needed 12/22/2016 01/20/2017 Inactive bumetanide 1 mg tablet RxNorm: 075103 TAKE ONE TABLET BY MOUTH TWICE DAILY 12/17/2016 01/14/2017 Inactive promethazine 25 mg tablet RxNorm: 371224 Tablet(s) TAKE ONE TABLET BY MOUTH EVERY 6 TO 8 HOURS NEEDED 11/16/2016 12/15/2016 Inactive spironolactone 50 mg tablet RxNorm: 364735 TAKE ONE TABLET BY MOUTH TWICE DAILY 11/15/2016 05/13/2017 Inactive Basaglar KwikPen 100 unit/mL (3 mL) subcutaneous RxNorm: 1590524 Unit(s) INJECT 35 UNITS IN THE MORNING AND 50 UNITS IN THE EVENING SUBCUTANEOUSLY 11/15/2016 03/14/2017 Inactive cyclobenzaprine 10 mg tablet RxNorm: 143765 TAKE ONE TABLET BY MOUTH NEEDED 11/15/2016 12/04/2016 Inactive lidocaine 5 % topical patch RxNorm: 9271007 1 Patch TOP daily . 12 HOURS ON, 12 HOURS OFF 11/15/2016 12/04/2016 Inactive lidocaine 4 % topical patch RxNorm: 4222687 1 Patch TOP on for 12 hours and off for 12 hours 11/14/2016 11/14/2016 Inactive promethazine 25 mg tablet RxNorm: 035326 TAKE ONE TABLET BY MOUTH EVERY 6 TO 8 HOURS NEEDED 11/14/2016 11/15/2016 Inactive Basaglar KwikPen 100 unit/mL (3 mL) subcutaneous RxNorm: 4570837 INJECT 35 UNITS IN THE MORNING AND 50 UNITS IN THE EVENING SUBCUTANEOUSLY 11/14/2016 11/14/2016 Inactive cyclobenzaprine 10 mg tablet RxNorm: 069603 TAKE ONE TABLET BY MOUTH NEEDED 11/14/2016 11/14/2016 Inactive spironolactone 50 mg tablet RxNorm: 220136 TAKE ONE TABLET BY MOUTH TWICE DAILY 11/14/2016 11/14/2016 Inactive Diflucan 150 mg tablet RxNorm: 270827 1 Tablet(s) PO as needed prophylactic after sexual intercourse 10/30/2016 No Stop Date Active hydrocodone 7.5 mg-acetaminophen 325 mg tablet RxNorm: 086594 1 Tablet(s) PO Q4H as needed 10/30/2016 11/28/2016 Inactive clotrimazole 100 mg vaginal tablet RxNorm: 339664 1 Tablet(s) VAG QW 10/30/2016 11/28/2016 Inactive Humalog KwikPen 200 unit/mL (3 mL) subcutaneous RxNorm: 1260969 35 Unit(s) SQ AC 10/30/2016 02/19/2017 Inactive QS 30 day supply Bydureon 2 mg/0.65 mL subcutaneous pen injector RxNorm: 4251240 2 Milligram(s) SQ QW 10/30/2016 11/28/2016 Inactive Basaglar KwikPen 100 unit/mL (3 mL) subcutaneous RxNorm: 4054903 Unit(s) SQ 35 units in the morning and 50 units in the evening 10/30/2016 11/13/2016 Inactive QS 30 day supply cyclobenzaprine 10 mg tablet RxNorm: 993511 TAKE ONE TABLET BY MOUTH NEEDED 10/27/2016 11/05/2016 Inactive Diflucan 150 mg tablet RxNorm: 151483 1 Tablet(s) PO daily x 7 days then once a week 10/27/2016 10/29/2016 Inactive promethazine 25 mg tablet RxNorm: 739197 TAKE ONE TABLET BY MOUTH EVERY 6 TO 8 HOURS NEEDED 10/27/2016 11/10/2016 Inactive Diflucan 150 mg tablet RxNorm: 635594 1 Tablet(s) PO daily x 7 days then once a week 10/09/2016 10/15/2016 Inactive Diflucan 150 mg tablet RxNorm: 629165 1 Tablet(s) PO daily 09/20/2016 09/26/2016 Inactive Cipro 500 mg tablet RxNorm: 763668 1 Tablet(s) PO BID 09/12/2016 09/21/2016 Inactive Flagyl 500 mg tablet RxNorm: 730575 1 Tablet(s) PO TID 09/12/2016 09/21/2016 Inactive Diflucan 150 mg tablet RxNorm: 366873 1 Tablet(s) PO daily 09/06/2016 09/12/2016 Inactive hydrocodone 7.5 mg-acetaminophen 325 mg tablet RxNorm: 632055 1 Tablet(s) PO Q4H as needed 07/12/2016 08/10/2016 Inactive Xopenex 1.25 mg/3 mL solution for nebulization RxNorm: 264746 3 Milliliter(s) INH TID 06/16/2016 05/24/2017 Inactive cefdinir 300 mg capsule RxNorm: 207803 1 Capsule(s) PO BID 06/16/2016 06/25/2016 Inactive Mobic 7.5 mg tablet RxNorm: 982692 1 Tablet(s) PO daily 06/16/2016 06/25/2016 Inactive Levaquin 500 mg tablet RxNorm: 574211 1 Tablet(s) PO daily 06/16/2016 06/22/2016 Inactive cyclobenzaprine 10 mg tablet RxNorm: 119376 1 Tablet(s) PO PRN as needed 06/14/2016 06/23/2016 Inactive promethazine 25 mg tablet RxNorm: 934768 TAKE ONE TABLET BY MOUTH EVERY 6 TO 8 HOURS NEEDED 06/14/2016 06/28/2016 Inactive Xopenex HFA 45 mcg/actuation aerosol inhaler RxNorm: 631210 1 Puff(s) INH PRN 06/14/2016 07/15/2016 Inactive pen needle, diabetic 32 gauge x 5/16" RxNorm: 1 use Miscellaneous AC & HS 06/13/2016 No Stop Date Active QS 30 day supply Humalog KwikPen 200 unit/mL (3 mL) subcutaneous RxNorm: 7607986 10 Unit(s) SQ AC 06/13/2016 10/29/2016 Inactive QS 30 day supply Basaglar KwikPen 100 unit/mL (3 mL) subcutaneous RxNorm: 0362497 22 units in the morning and 35 in the evening. Unit(s) SQ 06/13/2016 10/29/2016 Inactive QS 30 day supply Tivorbex 20 mg capsule RxNorm: 1227692 1 Capsule(s) PO TID as needed 06/13/2016 06/13/2016 Inactive metoprolol succinate ER 100 mg tablet,extended release 24 hr RxNorm: 029130 TAKE ONE TABLET BY MOUTH ONCE DAILY 06/13/2016 10/10/2016 Inactive hydrocodone 7.5 mg-acetaminophen 325 mg tablet RxNorm: 194682 1 Tablet(s) PO Q4H as needed 06/13/2016 07/11/2016 Inactive Voltaren 1 % topical gel RxNorm: 205991 APPLY TOPICALLY TO AFFECTED AREA TWICE DAILY 05/30/2016 07/08/2016 Inactive cyclobenzaprine 10 mg tablet RxNorm: 854304 1 Tablet(s) PO PRN as needed 05/19/2016 05/28/2016 Inactive alprazolam 0.5 mg tablet RxNorm: 218943 1 Tablet(s) PO Q8 as needed 05/19/2016 07/23/2018 Inactive bumetanide 1 mg tablet RxNorm: 816213 TAKE ONE TABLET BY MOUTH TWICE DAILY 05/19/2016 06/17/2016 Inactive Sprintec (28) 0.25 mg-35 mcg tablet RxNorm: 778546 1 Tablet(s) PO UD 05/08/2016 No Stop Date Active Lantus Solostar 100 unit/mL (3 mL) subcutaneous insulin pen RxNorm: 019196 Unit(s) SQ UD 15units qam 30 units qhs 05/08/2016 No Stop Date Active Humalog KwikPen 200 unit/mL (3 mL) subcutaneous RxNorm: 0805486 10 Unit(s) SQ AC 05/08/2016 06/12/2016 Inactive bumetanide 1 mg tablet RxNorm: 915717 TAKE ONE TABLET BY MOUTH TWICE DAILY 04/28/2016 05/18/2016 Inactive Voltaren 1 % topical gel RxNorm: 981364 1 Application TOP BID 04/28/2016 05/07/2016 Inactive cyclobenzaprine 10 mg tablet RxNorm: 310705 1 Tablet(s) PO PRN as needed 04/28/2016 05/07/2016 Inactive hydrocodone 7.5 mg-acetaminophen 325 mg tablet RxNorm: 854564 1 Tablet(s) PO Q4H as needed 04/18/2016 05/16/2016 Inactive Lantus Solostar 100 unit/mL (3 mL) subcutaneous insulin pen RxNorm: 648481 Unit(s) SQ UD 10 units QHS x5 days, if sugars are over 200 increase to 15 units x 5 days, if sugars over 200 increase to 20 units. 04/14/2016 05/07/2016 Inactive lidocaine 4 % topical patch RxNorm: 6856920 1 Patch TOP on for 12 hours and off for 12 hours 04/13/2016 11/13/2016 Inactive Voltaren 1 % topical gel RxNorm: 285633 1 Application TOP BID 04/10/2016 04/27/2016 Inactive metformin ER 500 mg 24 hr tablet,extended release RxNorm: 866431 1 Tablet(s) PO daily 04/06/2016 05/05/2016 Inactive Kenalog 40 mg/mL suspension for injection RxNorm: 0236319 1 Milliliter(s) Inj 04/06/2016 04/06/2016 Inactive cyclobenzaprine 10 mg tablet RxNorm: 231032 1 Tablet(s) PO PRN as needed 04/06/2016 04/27/2016 Inactive WelChol 3.75 gram oral powder packet RxNorm: 954125 1 packet PO daily 04/06/2016 07/04/2016 Inactive alprazolam 0.5 mg tablet RxNorm: 167600 1 Tablet(s) PO Q8 as needed 03/30/2016 06/19/2017 Inactive Levaquin 500 mg tablet RxNorm: 307973 1 Tablet(s) PO daily 03/30/2016 04/05/2016 Inactive metoprolol succinate ER 100 mg tablet,extended release 24 hr RxNorm: 303822 TAKE ONE TABLET BY MOUTH ONCE DAILY 03/16/2016 06/12/2016 Inactive Levaquin 500 mg tablet RxNorm: 639437 1 Tablet(s) PO daily 03/08/2016 03/14/2016 Inactive prednisone 20 mg tablet RxNorm: 222764 2 Tablet(s) PO daily 03/08/2016 03/12/2016 Inactive Xopenex HFA 45 mcg/actuation aerosol inhaler RxNorm: 979491 1 Puff(s) INH PRN 02/28/2016 06/13/2016 Inactive Phenergan with Codeine Syrup RxNorm: 5-10 ML PO QID as needed cough 02/28/2016 03/18/2018 Inactive Kenalog 40 mg/mL suspension for injection RxNorm: 6889657 1 Milliliter(s) Inj 02/28/2016 02/28/2016 Inactive Zithromax Z-Rashid 250 mg tablet RxNorm: 427199 1 Tablet(s) PO UD 02/28/2016 03/27/2016 Inactive alprazolam 0.5 mg tablet RxNorm: 725386 1 Tablet(s) PO Q8 as needed 02/24/2016 06/19/2017 Inactive glipizide 5 mg tablet RxNorm: 141763 1 Tablet(s) PO daily 01/18/2016 05/16/2016 Inactive Actos 15 mg tablet RxNorm: 809735 1 Tablet(s) PO daily 01/18/2016 02/16/2016 Inactive gabapentin 100 mg capsule RxNorm: 457762 1 Capsule(s) PO QHS 01/13/2016 03/12/2016 Inactive gabapentin 100 mg capsule RxNorm: 594845 1 Capsule(s) PO QHS 01/13/2016 01/12/2016 Inactive Bydureon 2 mg/0.65 mL subcutaneous pen injector RxNorm: 8660794 1 Milliliter(s) SQ QW 01/12/2016 01/11/2016 Inactive Bydureon 2 mg/0.65 mL subcutaneous pen injector RxNorm: 9226698 2/0.65ml Milligram(s) SQ QW 01/12/2016 05/16/2016 Inactive Bydureon 2 mg/0.65 mL subcutaneous pen injector RxNorm: 9012094 1 Milliliter(s) SQ QW 01/12/2016 01/11/2016 Inactive bumetanide 1 mg tablet RxNorm: 920065 TAKE ONE TABLET BY MOUTH TWICE DAILY 01/10/2016 04/08/2016 Inactive promethazine 25 mg tablet RxNorm: 350372 Tablet(s) Tablet(s) 1 Tablet(s) PO Q6-8H as needed 12/16/2015 04/13/2016 Inactive promethazine 25 mg tablet RxNorm: 743781 Tablet(s) 1 Tablet(s) PO Q6-8H as needed 12/10/2015 12/15/2015 Inactive Trulicity 0.75 mg/0.5 mL subcutaneous pen injector RxNorm: 7927642 INJECT ONE-HALF ML SUBCUTANEOUSLY ONCE A WEEK 12/10/2015 01/11/2016 Inactive glipizide 5 mg tablet RxNorm: 064444 1 Tablet(s) PO daily 12/10/2015 01/17/2016 Inactive bumetanide 1 mg tablet RxNorm: 847117 TAKE ONE TABLET BY MOUTH TWICE DAILY 12/10/2015 01/08/2016 Inactive promethazine 25 mg tablet RxNorm: 037632 Tablet(s) 1 Tablet(s) PO Q6-8H as needed 11/18/2015 12/09/2015 Inactive promethazine 25 mg tablet RxNorm: 228293 1 Tablet(s) PO Q6-8H as needed 11/16/2015 11/17/2015 Inactive glipizide 5 mg tablet RxNorm: 861862 1/2 Tablet(s) PO daily 11/16/2015 12/15/2015 Inactive promethazine 25 mg tablet RxNorm: 239115 Tablet(s) 1 Tablet(s) PO Q6-8H as needed 11/11/2015 12/10/2015 Inactive Trulicity 0.75 mg/0.5 mL subcutaneous pen injector RxNorm: 9568947 .5 Milliliter(s) SQ QW 11/11/2015 01/11/2016 Inactive metoprolol tartrate 50 mg tablet RxNorm: 476569 1 Tablet(s) PO BID 11/11/2015 07/29/2018 Inactive promethazine 25 mg tablet RxNorm: 107787 1 Tablet(s) PO Q6-8H as needed 10/28/2015 11/10/2015 Inactive nystatin 100,000 unit/gram topical cream RxNorm: 713795 1 Gram(s) TOP BID 10/27/2015 No Stop Date Active alprazolam 0.5 mg tablet RxNorm: 827642 1 Tablet(s) PO Q8 as needed 10/27/2015 03/29/2016 Inactive hydrocodone 7.5 mg-acetaminophen 325 mg tablet RxNorm: 288200 1 Tablet(s) PO Q4H as needed 10/27/2015 11/25/2015 Inactive Trulicity 0.75 mg/0.5 mL subcutaneous pen injector RxNorm: 5757315 .5 Milliliter(s) SQ QW 10/27/2015 11/10/2015 Inactive glipizide 5 mg tablet RxNorm: 804335 1 Tablet(s) PO daily 10/27/2015 11/25/2015 Inactive hydrocodone 7.5 mg-acetaminophen 325 mg tablet RxNorm: 958340 1 Tablet(s) PO Q4H as needed 10/26/2015 10/26/2015 Inactive alprazolam 0.5 mg tablet RxNorm: 297230 1 Tablet(s) PO PRN as needed 10/26/2015 10/26/2015 Inactive promethazine 25 mg tablet RxNorm: 754927 1 Tablet(s) PO Q6-8H as needed 10/26/2015 11/15/2015 Inactive glipizide 5 mg tablet RxNorm: 332876 1/2 Tablet(s) PO daily 10/13/2015 10/26/2015 Inactive cefdinir 300 mg capsule RxNorm: 258145 1 Capsule(s) PO BID 10/05/2015 10/14/2015 Inactive prednisone 20 mg tablet RxNorm: 294556 2 Tablet(s) PO daily 10/05/2015 10/09/2015 Inactive Diflucan 150 mg tablet RxNorm: 111555 1 Tablet(s) PO daily 10/05/2015 10/11/2015 Inactive Invokamet 50 mg-500 mg tablet RxNorm: 1719746 1 Tablet(s) PO daily 10/05/2015 11/03/2015 Inactive alprazolam 0.5 mg tablet RxNorm: 277239 1 Tablet(s) PO PRN as needed 10/01/2015 02/23/2016 Inactive promethazine 25 mg tablet RxNorm: 270054 1 Tablet(s) PO Q6-8H as needed 09/30/2015 10/25/2015 Inactive bumetanide 1 mg tablet RxNorm: 617592 TAKE ONE TABLET BY MOUTH TWICE DAILY 09/30/2015 10/29/2015 Inactive bumetanide 1 mg tablet RxNorm: 915000 TAKE ONE TABLET BY MOUTH TWICE DAILY 09/20/2015 12/18/2015 Inactive bumetanide 1 mg tablet RxNorm: 793311 1 Tablet(s) PO BID 09/20/2015 10/19/2015 Inactive metoprolol succinate ER 100 mg tablet,extended release 24 hr RxNorm: 718625 1 Tablet(s) PO daily 09/16/2015 03/13/2016 Inactive spironolactone 50 mg tablet RxNorm: 825990 1 Tablet(s) PO BID 09/16/2015 03/13/2016 Inactive alprazolam 0.5 mg tablet RxNorm: 423420 1 Tablet(s) PO PRN as needed 09/16/2015 10/25/2015 Inactive hydrocodone 7.5 mg-acetaminophen 325 mg tablet RxNorm: 225117 1 Tablet(s) PO Q4H as needed 09/16/2015 10/25/2015 Inactive Invokamet 50 mg-1,000 mg tablet RxNorm: 5174491 1 Tablet(s) PO daily 09/06/2015 09/05/2015 Inactive Invokamet 50 mg-1,000 mg tablet RxNorm: 8942469 1 Tablet(s) PO daily 09/06/2015 12/04/2015 Inactive promethazine 25 mg tablet RxNorm: 325432 TAKE ONE TABLET BY MOUTH EVERY 6 TO 8 HOURS NEEDED 09/01/2015 09/16/2015 Inactive promethazine 25 mg tablet RxNorm: 742181 1 Tablet(s) PO Q6-8H as needed 08/27/2015 09/25/2015 Inactive metoprolol succinate ER 100 mg tablet,extended release 24 hr RxNorm: 785100 1 Tablet(s) PO daily 08/20/2015 09/15/2015 Inactive bumetanide 1 mg tablet RxNorm: 289264 1 Tablet(s) PO BID 08/20/2015 09/18/2015 Inactive Bumex 1 mg tablet RxNorm: 251577 1 Tablet(s) PO BID 08/20/2015 11/15/2015 Inactive Kenalog 40 mg/mL suspension for injection RxNorm: 4469523 Milliliter(s) Inj 08/20/2015 08/20/2015 Inactive bumetanide 1 mg tablet RxNorm: 989759 1 Tablet(s) PO BID 08/20/2015 08/19/2015 Inactive Levaquin 500 mg tablet RxNorm: 024602 1 Tablet(s) PO daily 08/20/2015 08/26/2015 Inactive promethazine 25 mg tablet RxNorm: 548187 1 Tablet(s) PO Q6-8H as needed 08/06/2015 08/26/2015 Inactive metformin 500 mg tablet RxNorm: 948117 Tablet(s) PO 500mg in the morning and 1000mg at night No Start Date 09/16/2015 Inactive alprazolam 0.25 mg tablet RxNorm: 449936 1 Tablet(s) PO daily as needed anxiety No Start Date 08/07/2018 Inactive Lantus Solostar 100 unit/mL (3 mL) subcutaneous insulin pen RxNorm: 285671 Unit(s) SQ UD 10 units QHS x 5 days, if blood sugars are above 200 increase to 15 units x 5 days, if still 200 increase to 20 units. No Start Date 04/13/2016 Inactive alprazolam 0.5 mg tablet RxNorm: 660596 1 Tablet(s) PO PRN as needed No Start Date 09/15/2015 Inactive cyclobenzaprine 10 mg tablet RxNorm: 556091 1 Tablet(s) PO PRN as needed No Start Date 04/05/2016 Inactive lidocaine 4 % topical patch RxNorm: 4514426 1 Patch TOP on for 12 hours and off for 12 hours No Start Date 04/12/2016 Inactive metoprolol tartrate 50 mg tablet RxNorm: 305154 1 Tablet(s) PO BID No Start Date 11/10/2015 Inactive spironolactone 50 mg tablet RxNorm: 328236 1 Tablet(s) PO BID No Start Date 09/15/2015 Inactive hydrocodone 7.5 mg-acetaminophen 325 mg tablet RxNorm: 744503 1 Tablet(s) PO Q4H as needed No Start Date 09/15/2015 Inactive promethazine 25 mg tablet RxNorm: 394301 1 Tablet(s) PO PRN as needed No Start Date 08/05/2015 Inactive Medication Administered Medication Codes Instructions Start Date Status Kenalog 40 mg/mL suspension for injection RxNorm: 4353705 Milliliter 11/01/2018 No longer Active ceftriaxone 500 mg solution for injection RxNorm: 4167015 06/05/2018 No longer Active Kenalog 40 mg/mL suspension for injection RxNorm: 5390163 15.Milliliter 02/19/2018 No longer Active Kenalog 40 mg/mL suspension for injection RxNorm: 0269612 Milliliter 09/05/2017 No longer Active Kenalog 40 mg/mL suspension for injection RxNorm: 7907275 1Milliliter 04/24/2017 No longer Active Kenalog 40 mg/mL suspension for injection RxNorm: 5402193 Milliliter 01/09/2017 No longer Active Kenalog 40 mg/mL suspension for injection RxNorm: 0007773 1Milliliter 04/06/2016 No longer Active Kenalog 40 mg/mL suspension for injection RxNorm: 3816101 1Milliliter 02/28/2016 No longer Active Kenalog 40 mg/mL suspension for injection RxNorm: 2394497 Milliliter 08/20/2015 No longer Active Immunizations Vaccine Codes Date Status Influenza CVX: 141 03/14/2018 completed Influenza CVX: 141 04/24/2017 completed Pneumococcal (Adult) CVX: 33 04/13/2016 completed Influenza CVX: 141 03/30/2016 completed Assessments Condition Codes Effective Dates Other allergic rhinitis ICD-10: J30.89 ICD-9: 477.8 11/01/2018 Acute laryngopharyngitis ICD-10: J06.0 ICD-9: 465.0 11/01/2018 [...] Reason For Visit Effective Dates Notes cough 11/01/2018 hypertension 08/06/2018 wound follow up [...] Code Item Item Code Result Date %Hba1C Jif225 % HbA1c 32940- 6 8.4 % 06/06/2018 %Hba1C Jbo525 Gluc Ave 194 mg/dL 06/06/2018 Lipid Ord30 CHOL 233 mg/dL 03/14/2018 Lipid Ord30 HDL 38.0 mg/dl 03/14/2018 Lipid Ord30 TRIG 143 mg/dL 03/14/2018 Lipid Ord30 LDL 166 mg/dL 03/14/2018 Lipid Ord30 C/HDL 6.1 Ratio 03/14/2018 %Hba1C Wzc397 % HbA1c 01652- 6 9.8 % 03/14/2018 %Hba1C Ltp229 Gluc Ave 235 mg/dL 03/14/2018 Tsh Ord6 TSH (3rd IS) 1.09 uIU/mL 03/14/2018 Comp Metabolic Qug167 NA 137 mEq/L 03/14/2018 Comp Metabolic Luk791 K 4.6 mEq/L 03/14/2018 Comp Metabolic Rms081 CL 100 mEq/L 03/14/2018 Comp Metabolic Cke499 CO2 27.0 mEq/L 03/14/2018 Comp Metabolic Qsx200 ANION GAP 15 03/14/2018 Comp Metabolic Wur225 GLUCOSE 144 mg/dL 03/14/2018 Comp Metabolic Qnz124 Creat 0.5 mg/dL 03/14/2018 Comp Metabolic Dtv337 eGFR 138 ml/min/1.73m2 03/14/2018 Comp Metabolic Qkw979 BUN 9 mg/dL 03/14/2018 Comp Metabolic Bgg174 B/C Ratio 17.6 Ratio 03/14/2018 Comp Metabolic Xws610 CALCIUM 10.0 mg/dL 03/14/2018 Comp Metabolic Vhy225 ALK PHOS 102 U/L 03/14/2018 Comp Metabolic Dkp998 AST(SGOT) 31 U/L 03/14/2018 Comp Metabolic Joa731 ALT(SGPT) 41 U/L 03/14/2018 Comp Metabolic Xeo210 BILI T 0.5 mg/dL 03/14/2018 Comp Metabolic Exq241 ALBUMIN 4.3 g/dL 03/14/2018 Comp Metabolic Lay946 TPRO 6.8 g/dL 03/14/2018 Comp Metabolic Wcb663 GLOB 2.5 g/dL 03/14/2018 Comp Metabolic Peq056 A/G Ratio 1.8 Ratio 03/14/2018 Comp Metabolic Wiw201 Osmo 275 mOsmo 03/14/2018 Cbc With Differential [...] 29.8 pg 03/14/2018 Cbc With Differential Ord2 [place]% 5.6 % 03/14/2018 Cbc With Differential Ord2 [...] 4.31 K/ul 03/14/2018 Cbc With Differential Ord2 [place] ABS# 0.9 K/ul 03/14/2018 Cbc With Differential Ord2 Eos ABS# 0.2 K/ul 03/14/2018 Cbc With Differential Ord2 Baso ABS# 0.1 K/ul 03/14/2018 %Hba1C Pmv032 % HbA1c 67220- 6 8.8 % 06/13/2017 %Hba1C Miu307 Gluc Ave 206 mg/dL 06/13/2017 Tsh Ord6 [...] 30.2 pg 06/13/2017 Cbc With Differential Ord2 [place]% 4.9 % 06/13/2017 Cbc With Differential Ord2 [...] 3.21 K/ul 06/13/2017 Cbc With Differential Ord2 [place] ABS# 0.7 K/ul 06/13/2017 Cbc With Differential Ord2 Eos ABS# 0.2 K/ul 06/13/2017 Cbc With Differential Ord2 Baso ABS# 0.1 K/ul 06/13/2017 Lipid Ord30 CHOL 219 mg/dL 06/13/2017 Lipid Ord30 HDL 40.0 mg/dl 06/13/2017 Lipid Ord30 TRIG 200 mg/dL 06/13/2017 Lipid Ord30 LDL 139 mg/dL 06/13/2017 Lipid Ord30 C/HDL 5.5 Ratio 06/13/2017 Comp Metabolic Dkm210 NA 139 mEq/L 06/13/2017 Comp Metabolic Anc420 K 4.4 mEq/L 06/13/2017 Comp Metabolic Usf826 CL 100 mEq/L 06/13/2017 Comp Metabolic Tyx901 CO2 29.0 mEq/L 06/13/2017 Comp Metabolic Hft050 ANION GAP 14 06/13/2017 Comp Metabolic Itk125 GLUCOSE 257 mg/dL 06/13/2017 Comp Metabolic Pmd602 Creat 0.5 mg/dL 06/13/2017 Comp Metabolic Hcn994 eGFR 145 ml/min/1.73m2 06/13/2017 Comp Metabolic Hlm936 BUN 13 mg/dL 06/13/2017 Comp Metabolic Abz727 B/C Ratio 26.5 Ratio 06/13/2017 Comp Metabolic Pwp271 CALCIUM 9.7 mg/dL 06/13/2017 Comp Metabolic Ywy578 ALK PHOS 98 U/L 06/13/2017 Comp Metabolic Xor196 AST(SGOT) 30 U/L 06/13/2017 Comp Metabolic Jdt513 ALT(SGPT) 43 U/L 06/13/2017 Comp Metabolic Mjf421 BILI T 0.5 mg/dL 06/13/2017 Comp Metabolic Rrl158 ALBUMIN 4.0 g/dL 06/13/2017 Comp Metabolic Xdd332 TPRO 6.4 g/dL 06/13/2017 Comp Metabolic Chx890 GLOB 2.4 g/dL 06/13/2017 Comp Metabolic Qcd130 A/G Ratio 1.7 Ratio 06/13/2017 Comp Metabolic Gcm307 Osmo 286 mOsmo 06/13/2017 %Hba1C Cgm737 % HbA1c 71274- 6 11.1 % 2016 %Hba1C Utg114 Gluc Ave 272 mg/dL 2016 C-Reactive Protein Qnt Crqnt CRP 4.7 mg/dl 2016 Comp Metabolic Abs108 NA 136 mEq/L 2016 Comp Metabolic Jwi718 K 4.1 mEq/L 2016 Comp Metabolic Adj689 CL 96 mEq/L 2016 Comp Metabolic Rvj964 CO2 29.0 mEq/L 2016 Comp Metabolic Nzz705 ANION GAP 15 2016 Comp Metabolic Ctk322 GLUCOSE 291 mg/dL 2016 Comp Metabolic Bqv447 Creat 0.4 mg/dL 2016 Comp Metabolic Lmo117 eGFR 165 ml/min/1.73m2 2016 Comp Metabolic Vba895 BUN 11 mg/dL 2016 Comp Metabolic Plj210 B/C Ratio 25.0 Ratio 2016 Comp Metabolic Uoe286 CALCIUM 9.4 mg/dL 2016 Comp Metabolic Sle894 ALK PHOS 111 U/L 2016 Comp Metabolic Ols295 AST(SGOT) 46 U/L 2016 Comp Metabolic Wcv982 ALT(SGPT) 60 U/L 2016 Comp Metabolic Mcl333 BILI T 0.4 mg/dL 2016 Comp Metabolic Qcy268 ALBUMIN 4.0 g/dL 2016 Comp Metabolic Yoa078 TPRO 6.5 g/dL 2016 Comp Metabolic Osb457 GLOB 2.6 g/dL 2016 Comp Metabolic Vwx331 A/G Ratio 1.5 Ratio 2016 Comp Metabolic Ytp871 Osmo 282 mOsmo 2016 Cbc With Differential [...] 30.5 pg 2016 Cbc With Differential Ord2 [place]% 4.7 % 2016 Cbc With Differential Ord2 [...] 3.53 K/ul 2016 Cbc With Differential Ord2 [place] ABS# 0.7 K/ul 2016 Cbc With Differential Ord2 Eos ABS# 0.2 K/ul 2016 Cbc With Differential Ord2 Baso ABS# 0.1 K/ul 2016 Lipid Ord30 CHOL 228 mg/dL 05/05/2016 Lipid Ord30 HDL 42.0 mg/dl 05/05/2016 Lipid Ord30 TRIG 168 mg/dL 05/05/2016 Lipid Ord30 LDL 152 mg/dL 05/05/2016 Lipid Ord30 C/HDL 5.4 Ratio 05/05/2016 Comp Metabolic Jzv690 NA 135 mEq/L 05/05/2016 Comp Metabolic Bbd484 K 4.1 mEq/L 05/05/2016 Comp Metabolic Vgw928 CL 99 mEq/L 05/05/2016 Comp Metabolic Mut718 CO2 29.0 mEq/L 05/05/2016 Comp Metabolic Luk117 ANION GAP 11 05/05/2016 Comp Metabolic Aef847 GLUCOSE 229 mg/dL 05/05/2016 Comp Metabolic Qhi391 Creat 0.5 mg/dL 05/05/2016 Comp Metabolic Ruu897 eGFR 150 ml/min/1.73m2 05/05/2016 Comp Metabolic Twq060 BUN 14 mg/dL 05/05/2016 Comp Metabolic Sxr553 B/C Ratio 29.2 Ratio 05/05/2016 Comp Metabolic Tvr740 CALCIUM 9.1 mg/dL 05/05/2016 Comp Metabolic Jal054 ALK PHOS 112 U/L 05/05/2016 Comp Metabolic Zqn718 AST(SGOT) 59 U/L 05/05/2016 Comp Metabolic Pzm398 ALT(SGPT) 63 U/L 05/05/2016 Comp Metabolic Cbo878 BILI T 0.7 mg/dL 05/05/2016 Comp Metabolic Czu172 ALBUMIN 3.8 g/dL 05/05/2016 Comp Metabolic Btx523 TPRO 6.5 g/dL 05/05/2016 Comp Metabolic Kif941 GLOB 2.7 g/dL 05/05/2016 Comp Metabolic Vdz121 A/G Ratio 1.4 Ratio 05/05/2016 Comp Metabolic Rqp187 Osmo 278 mOsmo 05/05/2016 Cbc With Differential [...] 30.2 pg 05/05/2016 Cbc With Differential Ord2 [place]% 4.4 % 05/05/2016 Cbc With Differential Ord2 [...] 3.59 K/ul 05/05/2016 Cbc With Differential Ord2 [place] ABS# 0.7 K/ul 05/05/2016 Cbc With Differential Ord2 Eos ABS# 0.1 K/ul 05/05/2016 Cbc With Differential Ord2 Baso ABS# 0.1 K/ul 05/05/2016 %Hba1C Uqp227 % HbA1c 11179- 6 10.4 % 05/05/2016 %Hba1C Bmc722 Gluc Ave 252 mg/dL 05/05/2016 Hcg Beta Subunit Qual Serum 792230 B-HCG QUALITATIVE NEGATIVE 12/27/2015 GC/CHL PRB 1104335 Chl trach DNA Negative 12/25/2015 GC/CHL PRB 4089306 GC PROBE Negative 12/25/2015 Comp. Metabolic Panel (14) 33061 GLUCOSE 136 mg/dL 12/17/2015 Comp. Metabolic Panel (14) 96759 BUN 9 mg/dL 12/17/2015 Comp. Metabolic Panel (14) 47967 CREATININE 0.67 mg/dL 12/17/2015 Comp. Metabolic Panel (14) 16836 SODIUM 136 mmol/L 12/17/2015 Comp. Metabolic Panel (14) 18176 POTASSIUM 4.4 mmol/L 12/17/2015 Comp. Metabolic Panel (14) 03891 CHLORIDE 95 mmol/L 12/17/2015 Comp. Metabolic Panel (14) 24477 CARBON DIOXIDE 28 mmol/L 12/17/2015 Comp. Metabolic Panel (14) 81125 CALCIUM 10.1 mg/dL 12/17/2015 Comp. Metabolic Panel (14) 99556 TOTAL PROTEIN 7.0 g/dL 12/17/2015 Comp. Metabolic Panel (14) 56042 ALBUMIN 4.5 g/dL 12/17/2015 Comp. Metabolic Panel (14) 79432 ALKALINE PHOSPHATASE 87 U/L 12/17/2015 Comp. Metabolic Panel (14) 35169 TOTAL BILIRUBIN 0.5 mg/dL 12/17/2015 Comp. Metabolic Panel (14) 49622 SGOT (AST) 38 U/L 12/17/2015 Comp. Metabolic Panel (14) 07865 SGPT (ALT) 41 U/L 12/17/2015 Comp. Metabolic Panel (14) 65361 eGFR (mL/min/1.73m2) >60 12/17/2015 Comp. Metabolic Panel (14) 29065 12/17/2015 Cbc With Differential/Platelet 66181 WBC 16.67 thou/uL 12/17/2015 Cbc With Differential/Platelet 70972 RBC 5.11 mil/uL 12/17/2015 Cbc With Differential/Platelet 72866 HEMOGLOBIN 14.8 g/dL 12/17/2015 Cbc With Differential/Platelet 93767 HEMATOCRIT 48.7 % 12/17/2015 Cbc With Differential/Platelet 87829 MCV 95.4 fL 12/17/2015 Cbc With Differential/Platelet 64536 MCH 29.0 pg 12/17/2015 Cbc With Differential/Platelet 97975 MCHC 30.4 g/dL 12/17/2015 Cbc With Differential/Platelet 66526 RDW-CV 14.6 % 12/17/2015 Cbc With Differential/Platelet 58290 PLATELET COUNT 471 thou/uL 12/17/2015 Cbc With Differential/Platelet 34684 NEUTROPHIL % 71.3 % 12/17/2015 Cbc With Differential/Platelet 15412 LYMPHOCYTE % 22.4 % 12/17/2015 Cbc With Differential/Platelet 21188 MONOCYTE % 4.8 % 12/17/2015 Cbc With Differential/Platelet 19973 EOS % 0.7 % 12/17/2015 Cbc With Differential/Platelet 24150 BASO % 0.7 % 12/17/2015 Cbc With Differential/Platelet 08360 NEUTROPHIL ABS # 11.89 thou/uL 12/17/2015 Cbc With Differential/Platelet 58574 LYMPH ABS # 3.73 thou/uL 12/17/2015 Cbc With Differential/Platelet 67700 MONOCYTE ABS # 0.80 thou/uL 12/17/2015 Cbc With Differential/Platelet 00463 EOS ABS # 0.12 thou/uL 12/17/2015 Cbc With Differential/Platelet 38273 BASO ABS # 0.12 thou/uL 12/17/2015 Comp. [...] Hgb A1C With Eag Estimation GLYCOHEMOGLOBIN A1C 42239-5 8.1 % 11/13/2015 Hgb A1C With Eag Estimation ESTIMATED AVG GLUCOSE 186 mg/dL 11/13/2015 Comp. Metabolic Panel (14) 86041 GLUCOSE 84 mg/dL 09/11/2015 Comp. Metabolic Panel (14) 76777 BUN 11 mg/dL 09/11/2015 Comp. Metabolic Panel (14) 96971 CREATININE 0.56 mg/dL 09/11/2015 Comp. Metabolic Panel (14) 63719 SODIUM 142 mmol/L 09/11/2015 Comp. Metabolic Panel (14) 56715 POTASSIUM 4.3 mmol/L 09/11/2015 Comp. Metabolic Panel (14) 30223 CHLORIDE 98 mmol/L 09/11/2015 Comp. Metabolic Panel (14) 95140 CARBON DIOXIDE 27 mmol/L 09/11/2015 Comp. Metabolic Panel (14) 57595 CALCIUM 10.1 mg/dL 09/11/2015 Comp. Metabolic Panel (14) 25863 TOTAL PROTEIN 7.2 g/dL 09/11/2015 Comp. Metabolic Panel (14) 32091 ALBUMIN 4.7 g/dL 09/11/2015 Comp. Metabolic Panel (14) 25073 ALKALINE PHOSPHATASE 109 U/L 09/11/2015 Comp. Metabolic Panel (14) 12713 TOTAL BILIRUBIN 0.3 mg/dL 09/11/2015 Comp. Metabolic Panel (14) 44905 SGOT (AST) 53 U/L 09/11/2015 Comp. Metabolic Panel (14) 75704 SGPT (ALT) 53 U/L 09/11/2015 Comp. Metabolic Panel (14) 19141 eGFR (mL/min/1.73m2) >60 09/11/2015 Comp. Metabolic Panel (14) 10765 09/11/2015 Comp. Metabolic Panel (14) 77134 GLUCOSE 183 mg/dL 08/11/2015 Comp. Metabolic Panel (14) 10495 BUN 10 mg/dL 08/11/2015 Comp. Metabolic Panel (14) 28113 CREATININE 0.46 mg/dL 08/11/2015 Comp. Metabolic Panel (14) 13505 SODIUM 138 mmol/L 08/11/2015 Comp. Metabolic Panel (14) 00486 POTASSIUM 4.0 mmol/L 08/11/2015 Comp. Metabolic Panel (14) 41676 CHLORIDE 98 mmol/L 08/11/2015 Comp. Metabolic Panel (14) 95166 CARBON DIOXIDE 29 mmol/L 08/11/2015 Comp. Metabolic Panel (14) 29650 CALCIUM 9.4 mg/dL 08/11/2015 Comp. Metabolic Panel (14) 12968 TOTAL PROTEIN 6.8 g/dL 08/11/2015 Comp. Metabolic Panel (14) 41932 ALBUMIN 4.4 g/dL 08/11/2015 Comp. Metabolic Panel (14) 19572 ALKALINE PHOSPHATASE 118 U/L 08/11/2015 Comp. Metabolic Panel (14) 31990 TOTAL BILIRUBIN <0.3 mg/dL 08/11/2015 Comp. Metabolic Panel (14) 65286 SGOT (AST) 41 U/L 08/11/2015 Comp. Metabolic Panel (14) 67523 SGPT (ALT) 55 U/L 08/11/2015 Comp. Metabolic Panel (14) 03350 eGFR (mL/min/1.73m2) >60 08/11/2015 Comp. Metabolic Panel (14) 37271 08/11/2015 Cbc With Differential/Platelet 45445 WBC 11.76 thou/uL 08/11/2015 Cbc With Differential/Platelet 10409 RBC 4.98 mil/uL 08/11/2015 Cbc With Differential/Platelet 74784 HEMOGLOBIN 14.2 g/dL 08/11/2015 Cbc With Differential/Platelet 80695 HEMATOCRIT 46.7 % 08/11/2015 Cbc With Differential/Platelet 33833 MCV 93.8 fL 08/11/2015 Cbc With Differential/Platelet 13435 MCH 28.5 pg 08/11/2015 Cbc With Differential/Platelet 18603 MCHC 30.4 g/dL 08/11/2015 Cbc With Differential/Platelet 35481 RDW-CV 14.3 % 08/11/2015 Cbc With Differential/Platelet 15704 PLATELET COUNT 382 thou/uL 08/11/2015 Cbc With Differential/Platelet 41933 NEUTROPHIL % 67.3 % 08/11/2015 Cbc With Differential/Platelet 22963 LYMPHOCYTE % 24.0 % 08/11/2015 Cbc With Differential/Platelet 90532 MONOCYTE % 6.0 % 08/11/2015 Cbc With Differential/Platelet 42051 EOS % 1.6 % 08/11/2015 Cbc With Differential/Platelet 51281 BASO % 1.0 % 08/11/2015 Cbc With Differential/Platelet 38306 NEUTROPHIL ABS # 7.91 thou/uL 08/11/2015 Cbc With Differential/Platelet 22636 LYMPH ABS # 2.82 thou/uL 08/11/2015 Cbc With Differential/Platelet 46673 MONOCYTE ABS # 0.71 thou/uL 08/11/2015 Cbc With Differential/Platelet 29421 EOS ABS # 0.19 thou/uL 08/11/2015 Cbc With Differential/Platelet 46764 BASO ABS # 0.12 thou/uL 08/11/2015 Tsh 324841 TSH 3.220 uIU/mL 08/11/2015 Lipid Panel 06594 CHOLESTEROL 193 mg/dL 08/11/2015 Lipid Panel 22154 TRIGLYCERIDES 192 mg/dL 08/11/2015 Lipid Panel 10193 HDL 38 mg/dL 08/11/2015 Lipid Panel 77249 CHOLESTEROL/HDL 5.08 08/11/2015 Lipid Panel 42544 LDL (CALCULATED) 117 mg/dL 08/11/2015 Lipid Panel 92857 LDL/HDL 3.08 08/11/2015 Lipid Panel 35273 PHENOTYPE TYPE IV BORDERLINE 08/11/2015 Review of Systems System Result Effective Dates Constitutional recent illness 11/01/2018 Constitutional No chills [...] distress 08/06/2018 None Full Exam - General 1995 Constitutional general appearance Overall: well nourished 08/06/2018 [...] Procedure Codes Date THER/PROPH/DIAG INJ SC/IM CPT-4: 87136 11/01/2018 TRIAMCINOLONE ACET INJ NOS CPT-4: J3301 11/01/2018 THER/PROPH/DIAG INJ SC/IM CPT-4: 02135 06/05/2018 ROCEPHIN, PER 250 MG CPT- 4: J0696 06/05/2018 REMOVAL OF SKIN TAGS <W/15 CPT-4: 72773 03/14/2018 FLU VAC NO PRSV 4 PRECIOUS 3 YRS+ CPT-4: 24880 03/14/2018 IMMUNIZATION ADMIN CPT- 4: 16429 03/14/2018 TRIAMCINOLONE ACET INJ NOS CPT-4: J3301 02/19/2018 THER/PROPH/DIAG INJ SC/IM CPT-4: 64000 02/19/2018 THER/PROPH/DIAG INJ SC/IM CPT-4: 01329 09/05/2017 TRIAMCINOLONE ACET INJ NOS CPT-4: J3301 09/05/2017 IMMUNIZATION ADMIN CPT- 4: 18468 04/24/2017 FLU VAC NO PRSV 4 PRECIOUS 3 YRS+ CPT-4: 23839 04/24/2017 DRAIN/INJECT JOINT/BURSA CPT-4: 65046 04/24/2017 TRIAMCINOLONE ACET INJ NOS CPT-4: J3301 04/24/2017 THER/PROPH/DIAG INJ SC/IM CPT-4: 16063 01/09/2017 TRIAMCINOLONE ACET INJ NOS CPT-4: J3301 01/09/2017 THER/PROPH/DIAG INJ SC/IM CPT-4: 13223 04/13/2016 Pneumococcal Polysaccharide Vaccine, 23-Valent, Ad CPT-4: 54895 04/13/2016 INJECT TRIGGER POINTS 3/> CPT-4: 39200 04/06/2016 TRIAMCINOLONE ACET INJ NOS CPT-4: J3301 04/06/2016 IMMUNIZATION ADMIN CPT- 4: 16074 03/30/2016 IIV4 FLU VACC NO PRESERV ID SNOMED CT: [id number] CPT-4: 73365 03/30/2016 TRIAMCINOLONE ACET INJ NOS CPT-4: J3301 02/28/2016 THER/PROPH/DIAG INJ SC/IM CPT-4: 64031 02/28/2016 TRIAMCINOLONE ACET INJ NOS CPT-4: J3301 08/20/2015 Vital Signs Date Vital 11/01/2018 Blood Pressure 1: 134/70 Code: 8480-6 BMI: 43.0 Code: 87511-7 Heart Rate 1: 110 bpm Height: 4'11" SpO2: 97% Temperature: 37.3 (C) / 99.1 (F) Weight: 213 lbs 08/06/2018 Blood Pressure 1: 130/80 Code: 8480-6 BMI: 42.8 Code: 65098-7 Heart Rate 1: 110 bpm Height: 4'11" [...] 1: 127 Code: 8480-6 BMI: 42.4 Code: 45369-5 Heart Rate 1: 78 bpm Height: 4'11" SpO2: 97% Weight: 210 lbs 03/26/2018 Blood Pressure 1: 128 Code: 8480-6 BMI: 43.0 Code: 16363-8 Heart Rate 1: 120 bpm Height: 4'11" SpO2: 97% Weight: 213 lbs 03/14/2018 Blood Pressure 1: 12074 Code: 8480-6 BMI: 43.0 Code: 78822-0 Heart Rate 1: 114 bpm Height: 4'11" SpO2: 95% Weight: 213 lbs 03/07/2018 Blood Pressure 1: 13274 Code: 8480-6 BMI: 43.8 Code: 22719-5 Heart Rate 1: 123 bpm Height: 4'11" [...] 1: 134/86 Code: 8480-6 BMI: 45.4 Code: 94887-2 Heart Rate 1: 108 bpm Height: 4'11" SpO2: 95% Weight: 225 lbs 06/07/2017 Blood Pressure 1: 132/74 Code: 8480-6 Heart Rate 1: 99 bpm Height: 4'11" SpO2: 95% 04/24/2017 Blood Pressure 1: 132/8096 Code: 8480-6 BMI: 47.7 Code: 72486-4 Heart Rate 1: 96 bpm Height: 4'11" Weight: 236 lbs 01/09/2017 Blood Pressure 1: 122/74 Code: 8480-6 BMI: 46.0 Code: 70659-7 Heart Rate 1: 114 bpm Height: 4'11" SpO2: 98% Temperature: 37.1 (C) / 98.7 (F) Weight: 228 lbs 10/30/2016 Blood Pressure 1: 124 Code: 8480-6 BMI: 49.1 Code: 07293-5 Heart Rate 1: 90 bpm Height: 4'11" SpO2: 97% Weight: 243 lbs 10/09/2016 Blood Pressure 1: 124 Code: 8480-6 BMI: 49.3 Code: 22206-1 Heart Rate 1: 91 bpm Height: 4'11" SpO2: 98% Weight: 244 lbs 09/12/2016 Blood Pressure 1: 12880 Code: 8480-6 BMI: 49.1 Code: 24764-9 Heart Rate 1: 94 bpm Height: 4'11" SpO2: 95% Weight: 243 lbs 09/05/2016 Blood Pressure 1: 11874 Code: 8480-6 BMI: 49.1 Code: 38617-7 Heart Rate 1: 100 bpm Height: 4'11" SpO2: 97% Weight: 243 lbs 06/16/2016 Blood Pressure 1: 120/62 Code: 8480-6 BMI: 49.1 Code: 67094-9 Heart Rate 1: 100 bpm Height: 4'11" SpO2: 96% Temperature: 36.7 (C) / 98.0 (F) Weight: 243 lbs 06/13/2016 Blood Pressure 1: 120/70 Code: 8480-6 Heart Rate 1: 117 bpm SpO2: 97% 05/19/2016 Blood Pressure 1: 130/64 Code: 8480-6 BMI: 49.1 Code: 49781-2 Heart Rate 1: 101 bpm Height: 4'11" SpO2: 96% Weight: 243 lbs 05/08/2016 Blood Pressure 1: 128/76 Code: 8480-6 Heart Rate 1: 119 bpm Height: SpO2: 97% Weight: 05/05/2016 Blood Pressure 1: 124 Code: 8480-6 BMI: 49.1 Code: 94344-8 Heart Rate 1: 75 bpm Height: 4'11" SpO2: 99% Weight: 243 lbs 04/10/2016 Blood Pressure 1: 140/80 Code: 8480-6 BMI: 49.7 Code: 90996-1 Heart Rate 1: 88 bpm Height: 4'11" SpO2: 95% Weight: 246 lbs 04/06/2016 Blood Pressure 1: 134/82 Code: 8480-6 BMI: 75.1 Code: 09719-9 Heart Rate 1: 72 bpm Height: 4' SpO2: 96% Weight: 246 lbs 03/08/2016 Blood Pressure 1: 126/72 Code: 8480-6 BMI: 49.7 Code: 81286-6 Heart Rate 1: 89 bpm Height: 4'11" SpO2: 97% Weight: 246 lbs 02/28/2016 Blood Pressure 1: 124/68 Code: 8480-6 BMI: 49.7 Code: 19305-1 Heart Rate 1: 89 bpm Height: 4'11" SpO2: 96% Weight: 246 lbs 01/18/2016 Blood Pressure 1: 142/78 Code: 8480-6 BMI: 48.9 Code: 95906-7 Heart Rate 1: 97 bpm Height: 4'11" SpO2: 97% Weight: 242 lbs 12/23/2015 Blood Pressure 1: 124/74 Code: 8480-6 BMI: 48.9 Code: 37590-1 Heart Rate 1: 106 bpm Height: 4'11" SpO2: 96% Weight: 242 lbs 12/16/2015 Blood Pressure 1: 116/82 Code: 8480-6 BMI: 48.3 Code: 18993-3 Heart Rate 1: 111 bpm Height: 4'11" SpO2: 97% Weight: 239 lbs 11/11/2015 Blood Pressure 1: 130/80 Code: 8480-6 BMI: 49.7 Code: 16376-7 Heart Rate 1: 105 bpm Height: 4'11" SpO2: 96% Weight: 246 lbs 10/27/2015 Blood Pressure 1: 122/70 Code: 8480-6 BMI: 49.5 Code: 29689-6 Heart Rate 1: 107 bpm Height: 4'11" SpO2: 96% Weight: 245 lbs 10/13/2015 Blood Pressure 1: 140/82 Code: 8480-6 BMI: 50.9 Code: 50343-6 Heart Rate 1: 111 bpm Height: 4'11" SpO2: 96% Weight: 252 lbs 10/05/2015 Blood Pressure 1: 118/70 Code: 8480-6 BMI: 51.1 Code: 99908-0 Heart Rate 1: 120 bpm Height: 4'11" SpO2: 97% Weight: 253 lbs 09/01/2015 Blood Pressure 1: 132/82 Code: 8480-6 BMI: 50.1 Code: 08978-8 Heart Rate 1: 110 bpm Height: 4'11" SpO2: 96% Weight: 248 lbs 08/20/2015 Blood Pressure 1: 132/78 Code: 8480-6 BMI: 51.7 Code: 00316-9 Heart Rate 1: 100 bpm Height: 4'11" Weight: 256 lbs 08/03/2015 Blood Pressure 1: 148/92 Code: 8480-6 BMI: 52.1 Code: 54480-1 Heart Rate 1: 100 bpm Height: 4'11" SpO2: 97% Weight: 258 lbs Functional Status No Functional Status data History of Present Illness Symptom Name Status Result Effective Date Notes Location in the throat 11/01/2018 None Quality [...] Codes Date EST. PATIENT, LEVEL III Diagnosis: Acute laryngopharyngitis[ICD10: J06.0] Diagnosis: Other allergic rhinitis[ICD10: J30.89] Gloria Hess MD, [facility] CPT- 4: 92835 11/01/2018 [id number] EST. PATIENT, LEVEL III Diagnosis: Essential (primary) hypertension[ICD10: I10] Gloria Hess MD, [facility] CPT-4: 09847 08/06/2018 [id number] EST. PATIENT, LEVEL III Diagnosis: Hidradenitis suppurativa[ICD10: L73.2] Gloria Hess MD, [facility] CPT- 4: 24861 07/22/2018 [id number] EST. PATIENT, LEVEL III Diagnosis: Hidradenitis suppurativa[ICD10: L73.2] Diagnosis: Encounter for other specified surgical aftercare[ICD10: Z48.89] Gloria Hess MD, [facility] CPT-4: 65699 07/18/2018 [id number] EST. PATIENT, LEVEL III Diagnosis: Cellulitis of right axilla[ICD10: L03.111] Diagnosis: Diarrhea, unspecified[ICD10: R19.7] Gloria Hess MD, [facility] CPT- 4: 60501 06/28/2018 ([id number]) [id number] EST. PATIENT, LEVEL II Diagnosis: Cellulitis of right axilla[ICD10: L03.111] Tamy Hess MD, [facility] CPT-4: 22958 06/17/2018 [id number] EST. PATIENT, LEVEL III Diagnosis: Cellulitis of right axilla[ICD10: L03.111] Diagnosis: Type 2 diabetes mellitus with hyperglycemia[ICD10: E11.65] Gloria Hess MD, [facility] CPT-4: 96757 06/05/2018 [id number] EST. PATIENT, LEVEL III Diagnosis: Gastro-esophageal reflux disease without esophagitis[ICD10: K21.9] Diagnosis: Other allergic rhinitis[ICD10: J30.89] Diagnosis: Cough[ICD10: R05] Gloria Hess MD, [facility] CPT-4: 64443 03/26/2018 ([id number]) [id number] EST. PATIENT, LEVEL III Diagnosis: Cough[ICD10: R05] Gloria Hess MD, [facility] CPT-4: 21266 03/14/2018 [id number] EST. PATIENT, LEVEL IV Diagnosis: Acute laryngopharyngitis[ICD10: J06.0] Diagnosis: Other allergic rhinitis[ICD10: J30.89] Diagnosis: Cough[ICD10: R05] Gloria Hess MD, [facility] CPT-4: 25782 03/07/2018 [id number] EST. PATIENT, LEVEL IV Diagnosis: Acute bronchitis due to other specified organisms[ICD10: J20.8] Diagnosis: Acute laryngopharyngitis[ICD10: J06.0] Gloria Hess MD, [facility] CPT- 4: 38459 02/19/2018 57919 EST. PATIENT, LEVEL IV Diagnosis: Candidiasis of vulva and vagina[ICD10: B37.3] Diagnosis: Rash and other nonspecific skin eruption[ICD10: R21] Gloria Hess MD, [facility] CPT-4: 91884 01/08/2018 61181 EST. PATIENT, LEVEL III Diagnosis: Sacrococcygeal disorders, not elsewhere classified[ICD10: M53.3] Diagnosis: Low back pain[ICD10: M54.5] Gloria Hess MD, [facility] CPT-4: 42934 11/23/2017 01140 EST. PATIENT, LEVEL III Diagnosis: Acute laryngopharyngitis[ICD10: J06.0] Diagnosis: Other allergic rhinitis[ICD10: J30.89] Diagnosis: Acute bronchitis due to other specified organisms[ICD10: J20.8] Gloria Hess MD, [facility] CPT-4: 75774 09/05/2017 59498 EST. PATIENT, LEVEL III Diagnosis: Pain in left foot[ICD10: M79.672] Diagnosis: Rash and other nonspecific skin eruption[ICD10: R21] Diagnosis: Candidiasis of vulva and vagina[ICD10: B37.3] Diagnosis: Localized edema[ICD10: R60.0] Diagnosis: Dyspnea, unspecified[ICD10: R06.00] Gloria Hess MD, [facility] CPT- 4: 83414 06/07/2017 26527 EST. PATIENT, LEVEL III Diagnosis: Low back pain[ICD10: M54.5] Diagnosis: Sacroiliitis, not elsewhere classified[ICD10: M46.1] Diagnosis: Pain in left foot[ICD10: M79.672] Diagnosis: VACCIN FOR INFLUENZA[ICD10: Z23] Gloria Hess MD, [facility] CPT-4: 54455 04/24/2017 03948 EST. PATIENT, LEVEL III Diagnosis: Acute suppurative otitis media without spontaneous rupture of ear drum, right ear[ICD10: H66.001] Diagnosis: Other allergic rhinitis[ICD10: J30.89] Gloria Hess MD, [facility] CPT- 4: 83953 01/09/2017 76650 EST. PATIENT, LEVEL IV Diagnosis: Candidiasis of vulva and vagina[ICD10: B37.3] Diagnosis: Type 2 diabetes mellitus with hyperglycemia[ICD10: E11.65] Gloria Hess MD, [facility] CPT-4: 80565 10/30/2016 67205 EST. PATIENT, LEVEL III Diagnosis: Candidiasis of vulva and vagina[ICD10: B37.3] Diagnosis: Type 2 diabetes mellitus with hyperglycemia[ICD10: E11.65] Gloria Hess MD, [facility] CPT-4: 08493 10/09/2016 93307 EST. PATIENT, LEVEL IV Diagnosis: Umbilical hernia without obstruction or gangrene[ICD10: K42.9] Gloria Hess MD, [facility] CPT-4: 82258 09/12/2016 79827 EST. PATIENT, LEVEL III Diagnosis: Epigastric pain[ICD10: R10.13] Diagnosis: Candidiasis of vulva and vagina[ICD10: B37.3] Diagnosis: Type 2 diabetes mellitus with hyperglycemia[ICD10: E11.65] Gloria Hess MD, [facility] CPT-4: 79815 09/05/2016 21620 EST. PATIENT, LEVEL III Diagnosis: Acute laryngopharyngitis[ICD10: J06.0] Diagnosis: Other allergic rhinitis[ICD10: J30.89] Gloria Hess MD, [facility] CPT- 4: 45347 06/16/2016 12884 EST. PATIENT, LEVEL III Diagnosis: Type 2 diabetes mellitus with hyperglycemia[ICD10: E11.65] Diagnosis: Other obesity due to excess calories[ICD10: E66.09] Gloria Hess MD, [facility] CPT-4: 27981 06/13/2016 84404 EST. PATIENT, LEVEL III Diagnosis: Type 2 diabetes mellitus with hyperglycemia[ICD10: E11.65] Diagnosis: Other obesity due to excess calories[ICD10: E66.09] Gloria Hess MD, [facility] CPT-4: 60854 05/19/2016 58030 EST. PATIENT, LEVEL III Diagnosis: Type 2 diabetes mellitus with hyperglycemia[ICD10: E11.65] Diagnosis: Other obesity due to excess calories[ICD10: E66.09] Gloria Hess MD, [facility] CPT-4: 83441 05/08/2016 33497 EST. PATIENT, LEVEL III Diagnosis: Type 2 diabetes mellitus without complications[ICD10: E11.9] Gloria Hess MD, [facility] CPT-4: 47623 05/05/2016 56276 EST. PATIENT, LEVEL III Diagnosis: Pain in right shoulder[ICD10: M25.511] Gloria Hess MD [facility] CPT- 4: 08860 04/10/2016 44567 EST. PATIENT, LEVEL III Diagnosis: Pain in right shoulder[ICD10: M25.511] Diagnosis: Other muscle spasm[ICD10: M62.838] Diagnosis: Type 2 diabetes mellitus without complications[ICD10: E11.9] Gloria Hess MD [facility] CPT-4: 77578 04/06/2016 71611 EST. PATIENT, LEVEL IV Diagnosis: Acute bronchitis due to other specified organisms[ICD10: J20.8] Diagnosis: Other acute sinusitis[ICD10: J01.80] Diagnosis: Acne vulgaris[ICD10: L70.0] Diagnosis: Morbid (severe) obesity due to excess calories[ICD10: E66.01] Gloria Hess MD [facility] CPT-4: 30980 03/08/2016 82469 EST. PATIENT, LEVEL IV Diagnosis: Other acute sinusitis[ICD10: J01.80] Diagnosis: Localized enlarged lymph nodes[ICD10: R59.0] Gloria Hess MD, [facility] CPT-4: 84987 02/28/2016 87157 EST. PATIENT, LEVEL III Diagnosis: Type 2 diabetes mellitus without complications[ICD10: E11.9] Gloria Hess MD [facility] CPT-4: 07796 01/18/2016 (21446) PREV VISIT EST AGE 40-64 Diagnosis: Encounter for gynecological examination (general) (routine) without abnormal findings[ICD10: Z01.419] Diagnosis: Excessive and frequent menstruation with irregular cycle[ICD10: N92.1] Gloria Hess MD [facility] CPT-4: 85175 12/23/2015 86648 EST. PATIENT, LEVEL III Diagnosis: Type 2 diabetes mellitus without complications[ICD10: E11.9] Gloria Hess MD [facility] CPT-4: 86584 12/16/2015 20175 EST. PATIENT, LEVEL III Diagnosis: Type 2 diabetes mellitus without complications[ICD10: E11.9] Diagnosis: Other obesity due to excess calories[ICD10: E66.09] Gloria Hess MD [facility] CPT-4: 05269 11/11/2015 51986 EST. PATIENT, LEVEL III Diagnosis: Type 2 diabetes mellitus without complications[ICD10: E11.9] Diagnosis: Other obesity due to excess calories[ICD10: E66.09] Gloria Hess MD, [facility] CPT-4: 72310 10/27/2015 73799 EST. PATIENT, LEVEL III Diagnosis: Type 2 diabetes mellitus without complications[ICD10: E11.9] Diagnosis: Other obesity due to excess calories[ICD10: E66.09] Diagnosis: Other insomnia[ICD10: G47.09] Gloria Hess MD, [facility] CPT-4: 43658 10/13/2015 74464 EST. PATIENT, LEVEL IV Diagnosis: Acute recurrent maxillary sinusitis[ICD10: J01.01] Diagnosis: Allergic rhinitis due to pollen[ICD10: J30.1] Diagnosis: Other obesity due to excess calories[ICD10: E66.09] Gloria Hess MD, [facility] CPT-4: 71911 10/05/2015 21901 EST. PATIENT, LEVEL IV Diagnosis: Polycystic ovarian syndrome[ICD10: E28.2] Diagnosis: Other skin changes[ICD10: R23.8] Diagnosis: Other abnormal glucose[ICD10: R73.09] Gloria Hess MD, [facility] CPT- 4: 03565 09/01/2015 08391 EST. PATIENT, LEVEL IV Diagnosis: Acute recurrent maxillary sinusitis[ICD10: J01.01] Diagnosis: Morbid (severe) obesity due to excess calories[ICD10: E66.01] Diagnosis: Essential (primary) hypertension[ICD10: I10] Diagnosis: Allergic rhinitis due to pollen[ICD10: J30.1] Gloria Hess MD, [facility] CPT-4: 27514 08/20/2015 (50289) OFFICE VISIT, NEW - LEVEL 4 Diagnosis: Essential (primary) hypertension[ICD10: I10] Diagnosis: Obstructive sleep apnea (adult) (pediatric)[ICD10: G47.33] Diagnosis: Other insomnia[ICD10: G47.09] Diagnosis: Snoring[ICD10: R06.83] Diagnosis: Morbid (severe) obesity due to excess calories[ICD10: E66.01] Gloria Hess MD, [facility] CPT-4: 42013 08/03/2015 Plan of Care Planned Activity Notes [...] allergy spray. 11/01/2018 Appointment: Gloria Scott WPtel: [phone] [facility] (30 min) Complex 11/01/2018 Patient Education: Patient Medication Summary Completed 11/01/2018 Patient Education: Diabetes Completed 11/01/2018 Care Plan: Comp Metabolic Pending 11/01/2018 Care Plan: Cbc With Differential Pending 11/01/2018 Care Plan: %Hba1C LOINC : 35071-3 Pending 11/01/2018 Care Plan: Tsh Pending 11/01/2018 [...] acute concerns. 08/06/2018 Appointment: [phone] ([facility] 08/06/2018 Patient Education: Patient Medication Summary Completed 08/06/2018 Visit Plan: incision - healing well - Wound Instructions - Pt was instructed to keep the wound clean, wash with antibacterial soap, use triple antibiotic ointment, call if redness, pustular drainage, or any other a cute concerns. Hidradenitis suppurativa - will refer to dermatology. 07/22/2018 Appointment: Gloria Scott [facility]Ptel: [facility] [place] (30 min) Complex 07/22/2018 Patient Education: Patient Medication Summary Completed 07/22/2018 Visit Plan: Hidradenitis suppurativa - post incision - wound healing well - continue to monitor Wound Instructions - Pt was instructed to keep the wound clean, wash with antibacterial soap, use triple antibiotic oi ntment, call if redness, pustular drainage, or any other acute concerns. 07/18/2018 Appointment: Gloria Scott WPtel: [facility] ([facility]) Complex 07/18/2018 Patient Education: Patient Medication Summary Completed 07/18/2018 Referral: Roni Roberts pt will be notified by there office to schedule Initiated 07/03/2018 Care Plan: Referral Order SNOMED-CT : [id number] Pending 07/01/2018 Visit Plan: Abscess/Cellulitis - The [...] stomach pain. 06/28/2018 Appointment: Gloria Scott [facility]: [facility] [place] (30 min) Complex 06/28/2018 Patient Education: Patient Medication Summary Completed 06/28/2018 Visit Plan: Cellulitis-right htjkcr-xemhcgom-okr bactroban ointment until healed completely-call with any concerns 06/17/2018 Appointment: Tamy Lugo WPtel: [phone] [place] (15 min) Moderate 06/17/2018 Patient Education: [...] warmth, discharge. 06/05/2018 Appointment: Gloria Scott WPtel: [facility] (30 min) Complex 06/05/2018 Patient Education: Patient Medication Summary Completed 06/05/2018 Patient Education: Diabetes Completed 06/05/2018 Referral: Wilner Jesus [facility] Referral Initiated 04/19/2018 Care Plan: Referral Order SNOMED-CT : [id number] Pending 03/27/2018 Visit Plan: Esophageal Reflux - [...] allergy spray. 03/26/2018 Appointment: Gloria Scott WPtel: [address] [place], [place] [phone] (15 min) Moderate 03/26/2018 Patient Education: Patient Medication Summary Completed 03/26/2018 Appointment: Gloria Scott WPtel: [address] [place], [place] [phone] (15 min) Moderate 03/25/2018 Visit Plan: Skin [...] and bandaids. 03/14/2018 Appointment: Gloria Scott WPtel: [address] [place], [place] [address] (15 min) Moderate 03/14/2018 Patient Education: Patient [...] improve 03/07/2018 Appointment: Gloria Scott WPtel: [phone] [facility] (15 min) Moderate 03/07/2018 Patient Education: [...] worsen. 02/19/2018 Appointment: Gloria Scott WPtel: [phone] [facility] (15 min) Moderate 02/19/2018 Patient Education: [...] warmth, discharge. 01/08/2018 Appointment: Gloria Scott WPtel: [phone] [facility] (30 min) Complex 01/08/2018 Patient Education: [...] worsen. 09/05/2017 Appointment: Gloria Scott WPtel: [phone] [facility] (15 min) Moderate 09/05/2017 Patient [...] send RX 06/07/2017 Appointment: Gloria Scott WPtel: [facility] (15 min) Moderate 06/07/2017 Patient Education: Patient [...] of injection. 04/24/2017 Appointment: Gloria Scott WPtel: [phone] [facility] (30 min) Complex 04/24/2017 Patient Education: Patient Medication Summary Completed 04/24/2017 Appointment: Gloria Scott WPtel: [facility] [place] [address] [place] (30 min) Complex 03/09/2017 Appointment: Gloria Scott WPtel: [facility] [place] [address] (30 min) Complex 02/13/2017 Visit [...] allergy spray. 01/09/2017 Appointment: Gloria Scott WPtel: [facility] [place] (10 min) Simple 01/09/2017 Patient Education: Patient Medication Summary Completed 01/09/2017 Patient Education: Obesity Completed 01/09/2017 Visit Plan: Vaginal candidiasis - will send RX - pt is to notify clinic if symptoms do not improve, if they worsen, or with any questions or concerns. Diabetes Mellitus - Uncontrolled - Will refer to spiral runner - I have recommended for the patient [...] Mellitus - Uncontrolled - Will refer to spiral runner - I have recommended for the patient [...] control. 10/09/2016 Appointment: [phone] ([facility]) Complex 10/09/2016 Patient Education: Patient Medication Summary Completed 10/09/2016 Patient Education: Obesity Completed 10/09/2016 Referral: Roni Roberts Referral Completed 09/18/2016 Care Plan: CT ABD & PELV W/CONTRAST LOINC : 58976-0 Pending 09/13/2016 Care Plan: Referral Order SNOMED-CT : [id number] Pending 09/13/2016 Visit Plan: Ongoing abdominal pain/hernia - will send RX - will refer - pt is to notify clinic if symptoms do not improve, if they worsen, or with any questions or concerns. 09/12/2016 Appointment: [phone] (30 min) Complex 09/12/2016 Patient Education: Patient Medication Summary Completed 09/12/2016 Patient Education: Obesity Completed 09/12/2016 Care Plan: Referral Order SNOMED-CT : [id number] Pending 09/12/2016 Visit Plan: Ongoing abdominal/epigastric pain [...] control. 09/05/2016 Appointment: [facility]: [phone] [facility] ([facility] min) Complex 09/05/2016 Patient Education: Patient [...] spray. 06/16/2016 Appointment: [facility]Ptel: [phone] [facility] (10 min) Simple 06/16/2016 Patient Education: Patient [...] weight check. 06/13/2016 Appointment: Gloria Scott WPtel: [facility] (30 min) Complex 06/13/2016 Patient Education: Patient Medication Summary Completed 06/13/2016 Patient Education: Obesity Completed 06/13/2016 Appointment: Gloria Scott [facility]Ptel: [facility] ([facility] min) Complex 06/08/2016 Visit Plan: Diabetes [...] weight check. 05/19/2016 Appointment: Tamy Lugo WPtel: [phone] [place] (30 min) Complex 05/19/2016 Patient Education: [...] weight check. 05/08/2016 Appointment: Gloria Scott WPtel: [facility] (15 min) Moderate 05/08/2016 Patient Education: [...] the morning. 05/05/2016 Appointment: Tamy Lugo WPtel: [phone] (15 min) Moderate 05/05/2016 Patient Education: Patient Medication Summary Completed 05/05/2016 Patient Education: Obesity Completed 05/05/2016 Care Plan: Comp Metabolic Pending 05/05/2016 Appointment: Jocelyn Hess WPtel: [phone] [facility] Surgical Procedure 04/17/2016 Appointment: Injection 04/13/2016 Patient Education: Patient Medication Summary Completed 04/13/2016 Visit Plan: Right shoulder pain - will refer to PT - The pt is to use prn antiinflammatories to manage acute pain. The patient is to call the office if the pain is worsening or does not improve. 04/10/2016 Appointment: Gloria Scott [facility]Ptel: [phone] (30 min) Complex 04/10/2016 Patient Education: Patient [...] control. 04/06/2016 Appointment: Gloria Scott [facility]Ptel: [phone] (15 min) Moderate 04/06/2016 Patient Education: Patient [...] [place] 02/28/2016 Appointment: Gloria Scott [facility]Ptel: [phone] (30 min) Complex 02/28/2016 Patient Education: Patient Medication Summary Completed 02/28/2016 Patient Education: Obesity Completed 02/28/2016 Appointment: Gloria Scott WPtel: [phone] [facility] (15 min) Moderate 01/31/2016 Visit Plan: Diabetes [...] prn. 12/23/2015 Appointment: [facility] Scott [facility]Ptel: [phone] [facility] 12/23/2015 Patient Education: Patient Medication [...] %Hba1C ADD TO BLOOD IN THE LAB. [facility] : 90387-2 Pending 08/13/2015 Visit Plan: Hypertension - uncontrolled [...] Referral: Roni Roberts Referral Com[facility] Ref[facility] Initiated Referral: Roni Roberts Referral Initiated Referral: Roni Roberts Referral Initiated Instructions Comment steroid shot today madelyn prednisone 40mg daily [...] steroid allergy spray. . Diabetes Mellitus - Improved - The [...] in pain, worsening redness, warmth, discharge. . Bronchitis - acute case of bronchitis [...] Mellitus - Uncontrolled - Will refer to spiral runner - I have recommended for the patient [...] Mellitus - Uncontrolled - Will refer to spiral runner - I have recommended for the patient [...] further attempt to reduce peripheral edema. . Sinusitis - Pt has acute infection [...] is worsening or does not improve. . Hypertension - uncontrolled - the patient's [...] or with any questions or concerns. . PCOS and skin changes - pt currently on Metformin, but states that it is causing some GI upset and diarrhea - will change to Invokamet, will refer to Dr. Con[facility]. Will have pt repeat her liver enzymes on 09/09/15. Will have pt recheck a Hgb A1C after 3 months of being on Invokamet. . Cellulitis-right sdfzao-fbezyfte-zls bactroban ointment until healed completely-call with any [...] next year, otherwise, RTC yearly or prn. Continue ibuprofen 600mg - 800mg 3 times [...] not improved, or if symptoms acutely worsen. will send bactroban ointment - once a [...] drainage, or any other acute concerns. . Ongoing abdominal/epigastric pain - pt states [...]
--- OUTSIDE RECORDS SUMMARY | 2018-12-17 02:40 | XMS REPORT | CCD ---
Author [facility] Address [address] [place] [address] Phone Care Team Providers Care [employer] Name Role Phone PP Unavailable CCM Unavailable Summary Purpose Interface Exchange Insurance Providers Payer name Policy type / Coverage type Covered republican ID Effective Begin Date Effective End Date [facility] Commercial Insurance [id number] Unknown Unknown Family history Father Diagnosis Age At Onset Hypertension Unknown Arthritis Unknown Mother Diagnosis Age At Onset Arthritis Unknown Hyperlipidemia Unknown Daughter Diagnosis Age At Onset Asthma Unknown Social History Social History Element Codes Description Effective Dates Marital status Unknown Darin 08/03/2015 Number of children Unknown 1 08/03/[address]: 8443976 Quit less than 5 years ago 08/03/2015 Number of years using tobacco Unknown 20 - 08/03/2015 Alcohol history Unknown occasionally drinks [...] Instructions Zithromax Z-Rashid 250 mg tablet RxNorm: 135958 1 Tablet(s) PO UD 11/01/2018 No Stop Date Active promethazine 25 mg tablet RxNorm: 928191 Tablet(s) TABLET(S) TAKE ONE TABLET BY MOUTH EVERY 6 TO 8 HOURS NEEDED 11/01/2018 No Stop Date Active prednisone 20 mg tablet RxNorm: 267745 2 Tablet(s) PO daily 11/01/2018 11/05/2018 Active Kenalog 40 mg/mL suspension for injection RxNorm: 1981651 Milliliter(s) Inj 11/01/2018 11/01/2018 Inactive ibuprofen 800 mg tablet RxNorm: 259185 1 Tablet(s) PO TID as needed for pain 09/05/2018 09/14/2018 Inactive Phenergan with Codeine Syrup RxNorm: 5-10 ML PO QID as needed cough 08/08/2018 No Stop Date Active alprazolam 0.25 mg tablet RxNorm: 271140 1 Tablet(s) PO daily as needed anxiety 08/08/2018 No Stop Date Active metoprolol succinate ER 100 mg tablet,extended release 24 hr RxNorm: 875614 Tablet(s) TAKE ONE TABLET BY MOUTH ONCE DAILY 08/06/2018 No Stop Date Active ibuprofen 800 mg tablet RxNorm: 378474 1 Tablet(s) PO TID as needed for pain 08/06/2018 08/15/2018 Inactive Zithromax Z-Rashid 250 mg tablet RxNorm: 794649 1 Tablet(s) PO UD 08/06/2018 09/04/2018 Inactive metoprolol succinate ER 50 mg tablet,extended release 24 hr RxNorm: 213318 1 Tablet(s) PO daily 08/06/2018 09/04/2018 Inactive Lyrica 100 mg capsule RxNorm: 220785 1 Capsule(s) PO TID 07/25/2018 10/16/2018 Inactive Lyrica 100 mg capsule RxNorm: 173375 1 Capsule(s) PO TID 07/25/2018 07/24/2018 Inactive mupirocin 2 % topical ointment RxNorm: 511910 1 Application TOP daily 07/22/2018 07/28/2018 Inactive ibuprofen 800 mg tablet RxNorm: 951783 1 Tablet(s) PO TID as needed for pain 07/22/2018 07/31/2018 Inactive hydrocodone 7.5 mg-acetaminophen 325 mg tablet RxNorm: 405126 1 Tablet(s) PO Q4H as needed 07/18/2018 08/16/2018 Inactive promethazine 25 mg tablet RxNorm: 670635 TABLET(S) TAKE ONE TABLET BY MOUTH EVERY 6 TO 8 HOURS NEEDED 07/05/2018 2018 Inactive hyoscyamine 0.125 mg sublingual tablet RxNorm: 2559634 1 Tablet(s) SL TID as needed diarrhea 06/28/2018 07/07/2018 Inactive mupirocin 2 % topical ointment RxNorm: 957013 1 Application TOP BID 06/17/2018 06/26/2018 Inactive mupirocin 2 % topical ointment RxNorm: 020941 1 Application TOP BID 06/05/2018 No Stop Date Active Keflex 500 mg capsule RxNorm: 522993 1 Capsule(s) PO TID 06/05/2018 06/11/2018 Inactive ceftriaxone 500 mg solution for injection RxNorm: 8408173 Inj 06/05/2018 06/05/2018 Inactive Diflucan 150 mg tablet RxNorm: 937420 1 Tablet(s) PO daily 06/05/2018 07/02/2018 Inactive Protonix 40 mg tablet,delayed release RxNorm: 690765 1 Tablet(s) PO BID x 1 week then daily 03/26/2018 No Stop Date Active Phenergan with Codeine Syrup RxNorm: 5-10 ML PO QID as needed cough 03/19/2018 08/07/2018 Inactive promethazine 25 mg tablet RxNorm: 164949 Tablet(s) TAKE ONE TABLET BY MOUTH EVERY 6 TO 8 HOURS NEEDED 03/15/2018 07/04/2018 Inactive Singulair 10 mg tablet RxNorm: 247434 1 Tablet(s) PO daily 03/14/2018 04/12/2018 Inactive metoprolol succinate ER 100 mg tablet,extended release 24 hr RxNorm: 457074 1 Tablet(s) PO daily 03/07/2018 04/05/2018 Inactive Zithromax Z-Rashid 250 mg tablet RxNorm: 523138 1 Tablet(s) PO UD 03/07/2018 03/07/2018 Inactive prednisone 20 mg tablet RxNorm: 209026 2 Tablet(s) PO daily 03/07/2018 03/11/2018 Inactive albuterol sulfate 2.5 mg/3 mL (0.083 %) solution for nebulization RxNorm: 647963 3 Milliliter(s) INH Q4-6H as needed dyspnea 02/19/2018 No Stop Date Active Diflucan 150 mg tablet RxNorm: 952950 Tablet(s) TAKE ONE TABLET BY MOUTH ONCE DAILY FOR 7 DAYS THEN TAKE ONE TABLET BY MOUTH ONCE A WEEK 02/19/2018 06/04/2018 Inactive Levaquin 500 mg tablet RxNorm: 954023 1 Tablet(s) PO daily 02/19/2018 02/25/2018 Inactive prednisone 20 mg tablet RxNorm: 051508 2 Tablet(s) PO daily 02/19/2018 02/23/2018 Inactive Kenalog 40 mg/mL suspension for injection RxNorm: 8070426 15. Milliliter(s) Inj 02/19/2018 02/19/2018 Inactive hydrocodone 7.5 mg-acetaminophen 325 mg tablet RxNorm: 487567 1 Tablet(s) PO Q4H as needed 02/05/2018 03/06/2018 Inactive clindamycin HCl 300 mg capsule RxNorm: 339636 1 Capsule(s) PO TID 01/09/2018 01/15/2018 Inactive promethazine 25 mg tablet RxNorm: 165386 Tablet(s) TAKE ONE TABLET BY MOUTH EVERY 6 TO 8 HOURS NEEDED 01/08/2018 03/14/2018 Inactive Diflucan 150 mg tablet RxNorm: 065728 Tablet(s) TAKE ONE TABLET BY MOUTH ONCE DAILY FOR 7 DAYS THEN TAKE ONE TABLET BY MOUTH ONCE A WEEK 01/08/2018 02/18/2018 Inactive Bactrim DS 800 mg-160 mg tablet RxNorm: 134328 1 Tablet(s) PO BID 01/08/2018 01/17/2018 Inactive prednisone 20 mg tablet RxNorm: 419959 2 Tablet(s) PO daily 11/23/2017 11/27/2017 Inactive Zithromax Z-Rashid 250 mg tablet RxNorm: 378456 1 Tablet(s) PO UD 09/05/2017 02/11/2018 Inactive Kenalog 40 mg/mL suspension for injection RxNorm: 1323860 Milliliter(s) Inj 09/05/2017 09/05/2017 Inactive prednisone 20 mg tablet RxNorm: 715603 2 Tablet(s) PO daily 09/05/2017 09/09/2017 Inactive ibuprofen 800 mg tablet RxNorm: 966064 1 Tablet(s) PO TID 07/27/2017 02/21/2018 Inactive alprazolam 0.5 mg tablet RxNorm: 623151 1 Tablet(s) PO Q8 as needed 06/20/2017 07/09/2017 Inactive metoprolol succinate ER 100 mg tablet,extended release 24 hr RxNorm: 369717 TAKE ONE TABLET BY MOUTH ONCE DAILY 06/20/2017 08/05/2018 Inactive Zithromax Z-Rashid 250 mg tablet RxNorm: 333946 1 Tablet(s) PO UD 06/15/2017 07/25/2017 Inactive Xopenex HFA 45 mcg/actuation aerosol inhaler RxNorm: 611450 INHALE ONE PUFF INTO LUNGS NEEDED 06/13/2017 07/14/2017 Inactive Xopenex 1.25 mg/3 mL solution for nebulization RxNorm: 685375 Milliliter(s) USE ONE VIAL IN NEBULIZER THREE TIMES DAILY 06/08/2017 No Stop Date Active Flovent HFA 44 mcg/actuation aerosol inhaler RxNorm: 837229 2 Puff(s) INH BID 06/08/2017 No Stop Date Active potassium chloride ER 10 mEq tablet,extended release RxNorm: 111264 1 Tablet(s) PO daily 06/08/2017 06/10/2017 Inactive Lasix 20 mg tablet RxNorm: 449820 1 Tablet(s) PO daily 06/08/2017 06/10/2017 Inactive Xopenex HFA 45 mcg/actuation aerosol inhaler RxNorm: 767424 INHALE ONE PUFF INTO LUNGS NEEDED 06/08/2017 06/12/2017 Inactive triamcinolone acetonide 0.025 % topical cream RxNorm: 1444828 1 Application TOP BID 06/07/2017 No Stop Date Active ibuprofen 800 mg tablet RxNorm: 243599 1 Tablet(s) PO TID 06/07/2017 07/06/2017 Inactive cyclobenzaprine 5 mg tablet RxNorm: 711833 1/2 Tablet(s) PO TID as needed muscle spasms 05/28/2017 06/01/2017 Inactive Diflucan 150 mg tablet RxNorm: 242478 TAKE ONE TABLET BY MOUTH ONCE DAILY FOR 7 DAYS THEN TAKE ONE TABLET BY MOUTH ONCE A WEEK 05/28/2017 01/07/2018 Inactive bumetanide 1 mg tablet RxNorm: 876644 TAKE ONE TABLET BY MOUTH TWICE DAILY 05/25/2017 No Stop Date Active meloxicam 7.5 mg tablet RxNorm: 438497 1 Tablet(s) PO daily as needed 05/25/2017 07/23/2017 Inactive Xopenex 1.25 mg/3 mL solution for nebulization RxNorm: 332998 USE ONE VIAL IN NEBULIZER THREE TIMES DAILY 05/25/2017 06/07/2017 Inactive Protonix 40 mg tablet,delayed release RxNorm: 005481 1 Tablet(s) PO daily 05/08/2017 11/03/2017 Inactive Protonix 40 mg tablet,delayed release RxNorm: 992012 1 Tablet(s) PO daily 05/04/2017 05/03/2017 Inactive Protonix 40 mg tablet,delayed release RxNorm: 873251 1 Tablet(s) PO daily 05/04/2017 05/07/2017 Inactive meloxicam 7.5 mg tablet RxNorm: 439994 1 Tablet(s) PO daily as needed 04/25/2017 04/24/2017 Inactive meloxicam 7.5 mg tablet RxNorm: 772915 1 Tablet(s) PO daily as needed 04/25/2017 05/04/2017 Inactive promethazine 25 mg tablet RxNorm: 158048 TAKE ONE TABLET BY MOUTH EVERY 6 TO 8 HOURS NEEDED 04/25/2017 01/07/2018 Inactive Kenalog 40 mg/mL suspension for injection RxNorm: 0178977 1 Milliliter(s) Inj 04/24/2017 04/24/2017 Inactive cyclobenzaprine 5 mg tablet RxNorm: 043124 1/2 Tablet(s) PO TID as needed muscle spasms 04/24/2017 04/28/2017 Inactive Xopenex HFA 45 mcg/actuation aerosol inhaler RxNorm: 323616 INHALE ONE PUFF INTO LUNGS NEEDED 03/30/2017 04/14/2017 Inactive Humalog KwikPen 200 unit/mL (3 mL) subcutaneous RxNorm: 5780329 INJECT 35 UNITS SUBCUTANEOUSLY BEFORE MEAL(S) 03/30/2017 06/05/2017 Inactive promethazine 25 mg tablet RxNorm: 954342 Tablet(s) TAKE ONE TABLET BY MOUTH EVERY 6 TO 8 HOURS NEEDED 03/12/2017 03/26/2017 Inactive cyclobenzaprine 10 mg tablet RxNorm: 771227 TAKE ONE TABLET BY MOUTH ONCE DAILY NEEDED 03/06/2017 03/15/2017 Inactive lidocaine 5 % topical patch RxNorm: 6235378 USE ONE PATCH TOPICALLY DAILY. 12 HOURS ON AND THEN 12 HOURS OFF. 03/06/2017 03/15/2017 Inactive Humalog KwikPen 200 unit/mL (3 mL) subcutaneous RxNorm: 6461095 INJECT 35 UNITS SUBCUTANEOUSLY BEFORE MEAL(S) 02/20/2017 03/25/2017 Inactive promethazine 25 mg tablet RxNorm: 024054 Tablet(s) TAKE ONE TABLET BY MOUTH EVERY 6 TO 8 HOURS NEEDED 02/20/2017 03/06/2017 Inactive Xopenex HFA 45 mcg/actuation aerosol inhaler RxNorm: 147588 INHALE ONE PUFF INTO LUNGS NEEDED 02/20/2017 03/07/2017 Inactive bumetanide 1 mg tablet RxNorm: 865758 TAKE ONE TABLET BY MOUTH TWICE DAILY 02/15/2017 05/15/2017 Inactive bumetanide 1 mg tablet RxNorm: 057688 TAKE ONE TABLET BY MOUTH TWICE DAILY 01/15/2017 02/13/2017 Inactive metoprolol succinate ER 100 mg tablet,extended release 24 hr RxNorm: 554505 TAKE ONE TABLET BY MOUTH ONCE DAILY 01/11/2017 06/19/2017 Inactive Zithromax Z-Rashid 250 mg tablet RxNorm: 216126 1 Tablet(s) PO UD 01/09/2017 03/13/2017 Inactive meclizine 25 mg tablet RxNorm: 469656 1 Tablet(s) PO TID as needed 01/09/2017 01/18/2017 Inactive Kenalog 40 mg/mL suspension for injection RxNorm: 7024263 Milliliter(s) Inj 01/09/2017 01/09/2017 Inactive promethazine 25 mg tablet RxNorm: 984364 Tablet(s) TAKE ONE TABLET BY MOUTH EVERY 6 TO 8 HOURS NEEDED 12/29/2016 01/12/2017 Inactive Voltaren 1 % topical gel RxNorm: 180725 APPLY TOPICALLY TO AFFECTED AREA TWICE DAILY 12/25/2016 01/13/2017 Inactive cyclobenzaprine 10 mg tablet RxNorm: 929219 TAKE ONE TABLET BY MOUTH NEEDED 12/22/2016 12/31/2016 Inactive lidocaine 5 % topical patch RxNorm: 9365533 USE ONE PATCH TOPICALLY DAILY. 12 HOURS ON AND THEN 12 HOURS OFF. 12/22/2016 12/31/2016 Inactive hydrocodone 7.5 mg-acetaminophen 325 mg tablet RxNorm: 649475 1 Tablet(s) PO Q4H as needed 12/22/2016 01/20/2017 Inactive bumetanide 1 mg tablet RxNorm: 626717 TAKE ONE TABLET BY MOUTH TWICE DAILY 12/17/2016 01/14/2017 Inactive promethazine 25 mg tablet RxNorm: 555892 Tablet(s) TAKE ONE TABLET BY MOUTH EVERY 6 TO 8 HOURS NEEDED 11/16/2016 12/15/2016 Inactive spironolactone 50 mg tablet RxNorm: 375912 TAKE ONE TABLET BY MOUTH TWICE DAILY 11/15/2016 05/13/2017 Inactive Basaglar KwikPen 100 unit/mL (3 mL) subcutaneous RxNorm: 8348020 Unit(s) INJECT 35 UNITS IN THE MORNING AND 50 UNITS IN THE EVENING SUBCUTANEOUSLY 11/15/2016 03/14/2017 Inactive cyclobenzaprine 10 mg tablet RxNorm: 078379 TAKE ONE TABLET BY MOUTH NEEDED 11/15/2016 12/04/2016 Inactive lidocaine 5 % topical patch RxNorm: 0553581 1 Patch TOP daily . 12 HOURS ON, 12 HOURS OFF 11/15/2016 12/04/2016 Inactive lidocaine 4 % topical patch RxNorm: 5229133 1 Patch TOP on for 12 hours and off for 12 hours 11/14/2016 11/14/2016 Inactive promethazine 25 mg tablet RxNorm: 943846 TAKE ONE TABLET BY MOUTH EVERY 6 TO 8 HOURS NEEDED 11/14/2016 11/15/2016 Inactive Basaglar KwikPen 100 unit/mL (3 mL) subcutaneous RxNorm: 4556663 INJECT 35 UNITS IN THE MORNING AND 50 UNITS IN THE EVENING SUBCUTANEOUSLY 11/14/2016 11/14/2016 Inactive cyclobenzaprine 10 mg tablet RxNorm: 175289 TAKE ONE TABLET BY MOUTH NEEDED 11/14/2016 11/14/2016 Inactive spironolactone 50 mg tablet RxNorm: 507206 TAKE ONE TABLET BY MOUTH TWICE DAILY 11/14/2016 11/14/2016 Inactive Diflucan 150 mg tablet RxNorm: 714537 1 Tablet(s) PO as needed prophylactic after sexual intercourse 10/30/2016 No Stop Date Active hydrocodone 7.5 mg-acetaminophen 325 mg tablet RxNorm: 118035 1 Tablet(s) PO Q4H as needed 10/30/2016 11/28/2016 Inactive clotrimazole 100 mg vaginal tablet RxNorm: 196337 1 Tablet(s) VAG QW 10/30/2016 11/28/2016 Inactive Humalog KwikPen 200 unit/mL (3 mL) subcutaneous RxNorm: 8330282 35 Unit(s) SQ AC 10/30/2016 02/19/2017 Inactive QS 30 day supply Bydureon 2 mg/0.65 mL subcutaneous pen injector RxNorm: 1231333 2 Milligram(s) SQ QW 10/30/2016 11/28/2016 Inactive Basaglar KwikPen 100 unit/mL (3 mL) subcutaneous RxNorm: 7059705 Unit(s) SQ 35 units in the morning and 50 units in the evening 10/30/2016 11/13/2016 Inactive QS 30 day supply cyclobenzaprine 10 mg tablet RxNorm: 753740 TAKE ONE TABLET BY MOUTH NEEDED 10/27/2016 11/05/2016 Inactive Diflucan 150 mg tablet RxNorm: 658923 1 Tablet(s) PO daily x 7 days then once a week 10/27/2016 10/29/2016 Inactive promethazine 25 mg tablet RxNorm: 408363 TAKE ONE TABLET BY MOUTH EVERY 6 TO 8 HOURS NEEDED 10/27/2016 11/10/2016 Inactive Diflucan 150 mg tablet RxNorm: 527326 1 Tablet(s) PO daily x 7 days then once a week 10/09/2016 10/15/2016 Inactive Diflucan 150 mg tablet RxNorm: 177018 1 Tablet(s) PO daily 09/20/2016 09/26/2016 Inactive Cipro 500 mg tablet RxNorm: 686352 1 Tablet(s) PO BID 09/12/2016 09/21/2016 Inactive Flagyl 500 mg tablet RxNorm: 877177 1 Tablet(s) PO TID 09/12/2016 09/21/2016 Inactive Diflucan 150 mg tablet RxNorm: 392112 1 Tablet(s) PO daily 09/06/2016 09/12/2016 Inactive hydrocodone 7.5 mg-acetaminophen 325 mg tablet RxNorm: 253953 1 Tablet(s) PO Q4H as needed 07/12/2016 08/10/2016 Inactive Xopenex 1.25 mg/3 mL solution for nebulization RxNorm: 514852 3 Milliliter(s) INH TID 06/16/2016 05/24/2017 Inactive cefdinir 300 mg capsule RxNorm: 819629 1 Capsule(s) PO BID 06/16/2016 06/25/2016 Inactive Mobic 7.5 mg tablet RxNorm: 008009 1 Tablet(s) PO daily 06/16/2016 06/25/2016 Inactive Levaquin 500 mg tablet RxNorm: 174846 1 Tablet(s) PO daily 06/16/2016 06/22/2016 Inactive cyclobenzaprine 10 mg tablet RxNorm: 411840 1 Tablet(s) PO PRN as needed 06/14/2016 06/23/2016 Inactive promethazine 25 mg tablet RxNorm: 178472 TAKE ONE TABLET BY MOUTH EVERY 6 TO 8 HOURS NEEDED 06/14/2016 06/28/2016 Inactive Xopenex HFA 45 mcg/actuation aerosol inhaler RxNorm: 499404 1 Puff(s) INH PRN 06/14/2016 07/15/2016 Inactive pen needle, diabetic 32 gauge x 5/16" RxNorm: 1 use Miscellaneous AC & HS 06/13/2016 No Stop Date Active QS 30 day supply Humalog KwikPen 200 unit/mL (3 mL) subcutaneous RxNorm: 7849648 10 Unit(s) SQ AC 06/13/2016 10/29/2016 Inactive QS 30 day supply Basaglar KwikPen 100 unit/mL (3 mL) subcutaneous RxNorm: 2091732 22 units in the morning and 35 in the evening. Unit(s) SQ 06/13/2016 10/29/2016 Inactive QS 30 day supply Tivorbex 20 mg capsule RxNorm: 2808623 1 Capsule(s) PO TID as needed 06/13/2016 06/13/2016 Inactive metoprolol succinate ER 100 mg tablet,extended release 24 hr RxNorm: 727909 TAKE ONE TABLET BY MOUTH ONCE DAILY 06/13/2016 10/10/2016 Inactive hydrocodone 7.5 mg-acetaminophen 325 mg tablet RxNorm: 565872 1 Tablet(s) PO Q4H as needed 06/13/2016 07/11/2016 Inactive Voltaren 1 % topical gel RxNorm: 375367 APPLY TOPICALLY TO AFFECTED AREA TWICE DAILY 05/30/2016 07/08/2016 Inactive cyclobenzaprine 10 mg tablet RxNorm: 032661 1 Tablet(s) PO PRN as needed 05/19/2016 05/28/2016 Inactive alprazolam 0.5 mg tablet RxNorm: 466217 1 Tablet(s) PO Q8 as needed 05/19/2016 07/23/2018 Inactive bumetanide 1 mg tablet RxNorm: 502069 TAKE ONE TABLET BY MOUTH TWICE DAILY 05/19/2016 06/17/2016 Inactive Sprintec (28) 0.25 mg-35 mcg tablet RxNorm: 301972 1 Tablet(s) PO UD 05/08/2016 No Stop Date Active Lantus Solostar 100 unit/mL (3 mL) subcutaneous insulin pen RxNorm: 855211 Unit(s) SQ UD 15units qam 30 units qhs 05/08/2016 No Stop Date Active Humalog KwikPen 200 unit/mL (3 mL) subcutaneous RxNorm: 4845060 10 Unit(s) SQ AC 05/08/2016 06/12/2016 Inactive bumetanide 1 mg tablet RxNorm: 248388 TAKE ONE TABLET BY MOUTH TWICE DAILY 04/28/2016 05/18/2016 Inactive Voltaren 1 % topical gel RxNorm: 042988 1 Application TOP BID 04/28/2016 05/07/2016 Inactive cyclobenzaprine 10 mg tablet RxNorm: 312212 1 Tablet(s) PO PRN as needed 04/28/2016 05/07/2016 Inactive hydrocodone 7.5 mg-acetaminophen 325 mg tablet RxNorm: 884471 1 Tablet(s) PO Q4H as needed 04/18/2016 05/16/2016 Inactive Lantus Solostar 100 unit/mL (3 mL) subcutaneous insulin pen RxNorm: 613936 Unit(s) SQ UD 10 units QHS x5 days, if sugars are over 200 increase to 15 units x 5 days, if sugars over 200 increase to 20 units. 04/14/2016 05/07/2016 Inactive lidocaine 4 % topical patch RxNorm: 5591520 1 Patch TOP on for 12 hours and off for 12 hours 04/13/2016 11/13/2016 Inactive Voltaren 1 % topical gel RxNorm: 597817 1 Application TOP BID 04/10/2016 04/27/2016 Inactive metformin ER 500 mg 24 hr tablet,extended release RxNorm: 130764 1 Tablet(s) PO daily 04/06/2016 05/05/2016 Inactive Kenalog 40 mg/mL suspension for injection RxNorm: 0101641 1 Milliliter(s) Inj 04/06/2016 04/06/2016 Inactive cyclobenzaprine 10 mg tablet RxNorm: 711033 1 Tablet(s) PO PRN as needed 04/06/2016 04/27/2016 Inactive WelChol 3.75 gram oral powder packet RxNorm: 373801 1 packet PO daily 04/06/2016 07/04/2016 Inactive alprazolam 0.5 mg tablet RxNorm: 087782 1 Tablet(s) PO Q8 as needed 03/30/2016 06/19/2017 Inactive Levaquin 500 mg tablet RxNorm: 870415 1 Tablet(s) PO daily 03/30/2016 04/05/2016 Inactive metoprolol succinate ER 100 mg tablet,extended release 24 hr RxNorm: 048053 TAKE ONE TABLET BY MOUTH ONCE DAILY 03/16/2016 06/12/2016 Inactive Levaquin 500 mg tablet RxNorm: 133771 1 Tablet(s) PO daily 03/08/2016 03/14/2016 Inactive prednisone 20 mg tablet RxNorm: 001260 2 Tablet(s) PO daily 03/08/2016 03/12/2016 Inactive Xopenex HFA 45 mcg/actuation aerosol inhaler RxNorm: 692471 1 Puff(s) INH PRN 02/28/2016 06/13/2016 Inactive Phenergan with Codeine Syrup RxNorm: 5-10 ML PO QID as needed cough 02/28/2016 03/18/2018 Inactive Kenalog 40 mg/mL suspension for injection RxNorm: 1295105 1 Milliliter(s) Inj 02/28/2016 02/28/2016 Inactive Zithromax Z-Rashid 250 mg tablet RxNorm: 558024 1 Tablet(s) PO UD 02/28/2016 03/27/2016 Inactive alprazolam 0.5 mg tablet RxNorm: 901187 1 Tablet(s) PO Q8 as needed 02/24/2016 06/19/2017 Inactive glipizide 5 mg tablet RxNorm: 833036 1 Tablet(s) PO daily 01/18/2016 05/16/2016 Inactive Actos 15 mg tablet RxNorm: 411107 1 Tablet(s) PO daily 01/18/2016 02/16/2016 Inactive gabapentin 100 mg capsule RxNorm: 057462 1 Capsule(s) PO QHS 01/13/2016 03/12/2016 Inactive gabapentin 100 mg capsule RxNorm: 837752 1 Capsule(s) PO QHS 01/13/2016 01/12/2016 Inactive Bydureon 2 mg/0.65 mL subcutaneous pen injector RxNorm: 4809394 1 Milliliter(s) SQ QW 01/12/2016 01/11/2016 Inactive Bydureon 2 mg/0.65 mL subcutaneous pen injector RxNorm: 7748886 2/0.65ml Milligram(s) SQ QW 01/12/2016 05/16/2016 Inactive Bydureon 2 mg/0.65 mL subcutaneous pen injector RxNorm: 0014449 1 Milliliter(s) SQ QW 01/12/2016 01/11/2016 Inactive bumetanide 1 mg tablet RxNorm: 579053 TAKE ONE TABLET BY MOUTH TWICE DAILY 01/10/2016 04/08/2016 Inactive promethazine 25 mg tablet RxNorm: 620096 Tablet(s) Tablet(s) 1 Tablet(s) PO Q6-8H as needed 12/16/2015 04/13/2016 Inactive promethazine 25 mg tablet RxNorm: 454814 Tablet(s) 1 Tablet(s) PO Q6-8H as needed 12/10/2015 12/15/2015 Inactive Trulicity 0.75 mg/0.5 mL subcutaneous pen injector RxNorm: 0812375 INJECT ONE-HALF ML SUBCUTANEOUSLY ONCE A WEEK 12/10/2015 01/11/2016 Inactive glipizide 5 mg tablet RxNorm: 999005 1 Tablet(s) PO daily 12/10/2015 01/17/2016 Inactive bumetanide 1 mg tablet RxNorm: 896320 TAKE ONE TABLET BY MOUTH TWICE DAILY 12/10/2015 01/08/2016 Inactive promethazine 25 mg tablet RxNorm: 225447 Tablet(s) 1 Tablet(s) PO Q6-8H as needed 11/18/2015 12/09/2015 Inactive promethazine 25 mg tablet RxNorm: 161462 1 Tablet(s) PO Q6-8H as needed 11/16/2015 11/17/2015 Inactive glipizide 5 mg tablet RxNorm: 802768 1/2 Tablet(s) PO daily 11/16/2015 12/15/2015 Inactive promethazine 25 mg tablet RxNorm: 087873 Tablet(s) 1 Tablet(s) PO Q6-8H as needed 11/11/2015 12/10/2015 Inactive Trulicity 0.75 mg/0.5 mL subcutaneous pen injector RxNorm: 2007217 .5 Milliliter(s) SQ QW 11/11/2015 01/11/2016 Inactive metoprolol tartrate 50 mg tablet RxNorm: 103256 1 Tablet(s) PO BID 11/11/2015 07/29/2018 Inactive promethazine 25 mg tablet RxNorm: 823046 1 Tablet(s) PO Q6-8H as needed 10/28/2015 11/10/2015 Inactive nystatin 100,000 unit/gram topical cream RxNorm: 845186 1 Gram(s) TOP BID 10/27/2015 No Stop Date Active alprazolam 0.5 mg tablet RxNorm: 917620 1 Tablet(s) PO Q8 as needed 10/27/2015 03/29/2016 Inactive hydrocodone 7.5 mg-acetaminophen 325 mg tablet RxNorm: 026243 1 Tablet(s) PO Q4H as needed 10/27/2015 11/25/2015 Inactive Trulicity 0.75 mg/0.5 mL subcutaneous pen injector RxNorm: 7915382 .5 Milliliter(s) SQ QW 10/27/2015 11/10/2015 Inactive glipizide 5 mg tablet RxNorm: 892849 1 Tablet(s) PO daily 10/27/2015 11/25/2015 Inactive hydrocodone 7.5 mg-acetaminophen 325 mg tablet RxNorm: 787790 1 Tablet(s) PO Q4H as needed 10/26/2015 10/26/2015 Inactive alprazolam 0.5 mg tablet RxNorm: 846142 1 Tablet(s) PO PRN as needed 10/26/2015 10/26/2015 Inactive promethazine 25 mg tablet RxNorm: 450948 1 Tablet(s) PO Q6-8H as needed 10/26/2015 11/15/2015 Inactive glipizide 5 mg tablet RxNorm: 244935 1/2 Tablet(s) PO daily 10/13/2015 10/26/2015 Inactive cefdinir 300 mg capsule RxNorm: 641352 1 Capsule(s) PO BID 10/05/2015 10/14/2015 Inactive prednisone 20 mg tablet RxNorm: 817612 2 Tablet(s) PO daily 10/05/2015 10/09/2015 Inactive Diflucan 150 mg tablet RxNorm: 586909 1 Tablet(s) PO daily 10/05/2015 10/11/2015 Inactive Invokamet 50 mg-500 mg tablet RxNorm: 9587540 1 Tablet(s) PO daily 10/05/2015 11/03/2015 Inactive alprazolam 0.5 mg tablet RxNorm: 285363 1 Tablet(s) PO PRN as needed 10/01/2015 02/23/2016 Inactive promethazine 25 mg tablet RxNorm: 965399 1 Tablet(s) PO Q6-8H as needed 09/30/2015 10/25/2015 Inactive bumetanide 1 mg tablet RxNorm: 211587 TAKE ONE TABLET BY MOUTH TWICE DAILY 09/30/2015 10/29/2015 Inactive bumetanide 1 mg tablet RxNorm: 746052 TAKE ONE TABLET BY MOUTH TWICE DAILY 09/20/2015 12/18/2015 Inactive bumetanide 1 mg tablet RxNorm: 860654 1 Tablet(s) PO BID 09/20/2015 10/19/2015 Inactive metoprolol succinate ER 100 mg tablet,extended release 24 hr RxNorm: 176240 1 Tablet(s) PO daily 09/16/2015 03/13/2016 Inactive spironolactone 50 mg tablet RxNorm: 248035 1 Tablet(s) PO BID 09/16/2015 03/13/2016 Inactive alprazolam 0.5 mg tablet RxNorm: 354264 1 Tablet(s) PO PRN as needed 09/16/2015 10/25/2015 Inactive hydrocodone 7.5 mg-acetaminophen 325 mg tablet RxNorm: 651483 1 Tablet(s) PO Q4H as needed 09/16/2015 10/25/2015 Inactive Invokamet 50 mg-1,000 mg tablet RxNorm: 5933327 1 Tablet(s) PO daily 09/06/2015 09/05/2015 Inactive Invokamet 50 mg-1,000 mg tablet RxNorm: 1945235 1 Tablet(s) PO daily 09/06/2015 12/04/2015 Inactive promethazine 25 mg tablet RxNorm: 295067 TAKE ONE TABLET BY MOUTH EVERY 6 TO 8 HOURS NEEDED 09/01/2015 09/16/2015 Inactive promethazine 25 mg tablet RxNorm: 401365 1 Tablet(s) PO Q6-8H as needed 08/27/2015 09/25/2015 Inactive metoprolol succinate ER 100 mg tablet,extended release 24 hr RxNorm: 350733 1 Tablet(s) PO daily 08/20/2015 09/15/2015 Inactive bumetanide 1 mg tablet RxNorm: 911040 1 Tablet(s) PO BID 08/20/2015 09/18/2015 Inactive Bumex 1 mg tablet RxNorm: 051205 1 Tablet(s) PO BID 08/20/2015 11/15/2015 Inactive Kenalog 40 mg/mL suspension for injection RxNorm: 7177179 Milliliter(s) Inj 08/20/2015 08/20/2015 Inactive bumetanide 1 mg tablet RxNorm: 430444 1 Tablet(s) PO BID 08/20/2015 08/19/2015 Inactive Levaquin 500 mg tablet RxNorm: 165338 1 Tablet(s) PO daily 08/20/2015 08/26/2015 Inactive promethazine 25 mg tablet RxNorm: 272884 1 Tablet(s) PO Q6-8H as needed 08/06/2015 08/26/2015 Inactive metformin 500 mg tablet RxNorm: 082853 Tablet(s) PO 500mg in the morning and 1000mg at night No Start Date 09/16/2015 Inactive alprazolam 0.25 mg tablet RxNorm: 348683 1 Tablet(s) PO daily as needed anxiety No Start Date 08/07/2018 Inactive Lantus Solostar 100 unit/mL (3 mL) subcutaneous insulin pen RxNorm: 478540 Unit(s) SQ UD 10 units QHS x 5 days, if blood sugars are above 200 increase to 15 units x 5 days, if still 200 increase to 20 units. No Start Date 04/13/2016 Inactive alprazolam 0.5 mg tablet RxNorm: 558632 1 Tablet(s) PO PRN as needed No Start Date 09/15/2015 Inactive cyclobenzaprine 10 mg tablet RxNorm: 889772 1 Tablet(s) PO PRN as needed No Start Date 04/05/2016 Inactive lidocaine 4 % topical patch RxNorm: 9306757 1 Patch TOP on for 12 hours and off for 12 hours No Start Date 04/12/2016 Inactive metoprolol tartrate 50 mg tablet RxNorm: 747636 1 Tablet(s) PO BID No Start Date 11/10/2015 Inactive spironolactone 50 mg tablet RxNorm: 703636 1 Tablet(s) PO BID No Start Date 09/15/2015 Inactive hydrocodone 7.5 mg-acetaminophen 325 mg tablet RxNorm: 288149 1 Tablet(s) PO Q4H as needed No Start Date 09/15/2015 Inactive promethazine 25 mg tablet RxNorm: 667885 1 Tablet(s) PO PRN as needed No Start Date 08/05/2015 Inactive Medication Administered Medication Codes Instructions Start Date Status Kenalog 40 mg/mL suspension for injection RxNorm: 3358771 Milliliter 11/01/2018 No longer Active ceftriaxone 500 mg solution for injection RxNorm: 7163410 06/05/2018 No longer Active Kenalog 40 mg/mL suspension for injection RxNorm: 9528669 15.Milliliter 02/19/2018 No longer Active Kenalog 40 mg/mL suspension for injection RxNorm: 9992051 Milliliter 09/05/2017 No longer Active Kenalog 40 mg/mL suspension for injection RxNorm: 9538664 1Milliliter 04/24/2017 No longer Active Kenalog 40 mg/mL suspension for injection RxNorm: 3736747 Milliliter 01/09/2017 No longer Active Kenalog 40 mg/mL suspension for injection RxNorm: 5090971 1Milliliter 04/06/2016 No longer Active Kenalog 40 mg/mL suspension for injection RxNorm: 3339547 1Milliliter 02/28/2016 No longer Active Kenalog 40 mg/mL suspension for injection RxNorm: 4435391 Milliliter 08/20/2015 No longer Active Immunizations Vaccine [...] Code Item Item Code Result Date %Hba1C Aqs257 % HbA1c 24981- 6 8.4 % 06/06/2018 %Hba1C Vlz682 Gluc Ave 194 mg/dL 06/06/2018 Lipid Ord30 CHOL 233 mg/dL 03/14/2018 Lipid Ord30 HDL 38.0 mg/dl 03/14/2018 Lipid Ord30 TRIG 143 mg/dL 03/14/2018 Lipid Ord30 LDL 166 mg/dL 03/14/2018 Lipid Ord30 C/HDL 6.1 Ratio 03/14/2018 %Hba1C Pbn477 % HbA1c 22352- 6 9.8 % 03/14/2018 %Hba1C Dtj441 Gluc Ave 235 mg/dL 03/14/2018 Tsh Ord6 TSH (3rd IS) 1.09 uIU/mL 03/14/2018 Comp Metabolic Kog991 NA 137 mEq/L 03/14/2018 Comp Metabolic Rby807 K 4.6 mEq/L 03/14/2018 Comp Metabolic Lwb603 CL 100 mEq/L 03/14/2018 Comp Metabolic Boz723 CO2 27.0 mEq/L 03/14/2018 Comp Metabolic Bhx948 ANION GAP 15 03/14/2018 Comp Metabolic Jna840 GLUCOSE 144 mg/dL 03/14/2018 Comp Metabolic Mit678 Creat 0.5 mg/dL 03/14/2018 Comp Metabolic Lje541 eGFR 138 ml/min/1.73m2 03/14/2018 Comp Metabolic Qad711 BUN 9 mg/dL 03/14/2018 Comp Metabolic Wfq373 B/C Ratio 17.6 Ratio 03/14/2018 Comp Metabolic Vhd809 CALCIUM 10.0 mg/dL 03/14/2018 Comp Metabolic Nje179 ALK PHOS 102 U/L 03/14/2018 Comp Metabolic Auq468 AST(SGOT) 31 U/L 03/14/2018 Comp Metabolic Bmu814 ALT(SGPT) 41 U/L 03/14/2018 Comp Metabolic Tya879 BILI T 0.5 mg/dL 03/14/2018 Comp Metabolic Eof931 ALBUMIN 4.3 g/dL 03/14/2018 Comp Metabolic Vfk395 TPRO 6.8 g/dL 03/14/2018 Comp Metabolic Eod043 GLOB 2.5 g/dL 03/14/2018 Comp Metabolic Odh158 A/G Ratio 1.8 Ratio 03/14/2018 Comp Metabolic Nza893 Osmo 275 mOsmo 03/14/2018 Cbc With Differential [...] 29.8 pg 03/14/2018 Cbc With Differential Ord2 Collier% 5.6 % 03/14/2018 Cbc With Differential Ord2 [...] 4.31 K/ul 03/14/2018 Cbc With Differential Ord2 Collier ABS# 0.9 K/ul 03/14/2018 Cbc With Differential Ord2 Eos ABS# 0.2 K/ul 03/14/2018 Cbc With Differential Ord2 Baso ABS# 0.1 K/ul 03/14/2018 %Hba1C Mcq166 % HbA1c 60382- 6 8.8 % 06/13/2017 %Hba1C Npd924 Gluc Ave 206 mg/dL 06/13/2017 Tsh Ord6 [...] 30.2 pg 06/13/2017 Cbc With Differential Ord2 Collier% 4.9 % 06/13/2017 Cbc With Differential Ord2 [...] 3.21 K/ul 06/13/2017 Cbc With Differential Ord2 Collier ABS# 0.7 K/ul 06/13/2017 Cbc With Differential Ord2 Eos ABS# 0.2 K/ul 06/13/2017 Cbc With Differential Ord2 Baso ABS# 0.1 K/ul 06/13/2017 Lipid Ord30 CHOL 219 mg/dL 06/13/2017 Lipid Ord30 HDL 40.0 mg/dl 06/13/2017 Lipid Ord30 TRIG 200 mg/dL 06/13/2017 Lipid Ord30 LDL 139 mg/dL 06/13/2017 Lipid Ord30 C/HDL 5.5 Ratio 06/13/2017 Comp Metabolic Kjj061 NA 139 mEq/L 06/13/2017 Comp Metabolic Hvh590 K 4.4 mEq/L 06/13/2017 Comp Metabolic Cto111 CL 100 mEq/L 06/13/2017 Comp Metabolic Ald686 CO2 29.0 mEq/L 06/13/2017 Comp Metabolic Mkm171 ANION GAP 14 06/13/2017 Comp Metabolic Svo886 GLUCOSE 257 mg/dL 06/13/2017 Comp Metabolic Ynj241 Creat 0.5 mg/dL 06/13/2017 Comp Metabolic Zgg421 eGFR 145 ml/min/1.73m2 06/13/2017 Comp Metabolic Gqf558 BUN 13 mg/dL 06/13/2017 Comp Metabolic Grw071 B/C Ratio 26.5 Ratio 06/13/2017 Comp Metabolic Wav138 CALCIUM 9.7 mg/dL 06/13/2017 Comp Metabolic Kcr456 ALK PHOS 98 U/L 06/13/2017 Comp Metabolic Enq358 AST(SGOT) 30 U/L 06/13/2017 Comp Metabolic Nyd682 ALT(SGPT) 43 U/L 06/13/2017 Comp Metabolic Xnj018 BILI T 0.5 mg/dL 06/13/2017 Comp Metabolic Seq989 ALBUMIN 4.0 g/dL 06/13/2017 Comp Metabolic Mio977 TPRO 6.4 g/dL 06/13/2017 Comp Metabolic Idv838 GLOB 2.4 g/dL 06/13/2017 Comp Metabolic Lwv141 A/G Ratio 1.7 Ratio 06/13/2017 Comp Metabolic Jmn085 Osmo 286 mOsmo 06/13/2017 %Hba1C Mla646 % HbA1c 48867- 6 11.1 % 2016 %Hba1C Dqx168 Gluc Ave 272 mg/dL 2016 C-Reactive Protein Qnt Crqnt CRP 4.7 mg/dl 2016 Comp Metabolic Xtg730 NA 136 mEq/L 2016 Comp Metabolic Xev226 K 4.1 mEq/L 2016 Comp Metabolic Mgf535 CL 96 mEq/L 2016 Comp Metabolic Vgt295 CO2 29.0 mEq/L 2016 Comp Metabolic Quh885 ANION GAP 15 2016 Comp Metabolic Xkw964 GLUCOSE 291 mg/dL 2016 Comp Metabolic Mwt054 Creat 0.4 mg/dL 2016 Comp Metabolic Vuq505 eGFR 165 ml/min/1.73m2 2016 Comp Metabolic Tbw430 BUN 11 mg/dL 2016 Comp Metabolic Ehu404 B/C Ratio 25.0 Ratio 2016 Comp Metabolic Xmv994 CALCIUM 9.4 mg/dL 2016 Comp Metabolic Exa572 ALK PHOS 111 U/L 2016 Comp Metabolic Hfx766 AST(SGOT) 46 U/L 2016 Comp Metabolic Aqo654 ALT(SGPT) 60 U/L 2016 Comp Metabolic Nmf528 BILI T 0.4 mg/dL 2016 Comp Metabolic Rrv759 ALBUMIN 4.0 g/dL 2016 Comp Metabolic Djr223 TPRO 6.5 g/dL 2016 Comp Metabolic Bff898 GLOB 2.6 g/dL 2016 Comp Metabolic Acp446 A/G Ratio 1.5 Ratio 2016 Comp Metabolic Qiy516 Osmo 282 mOsmo 2016 Cbc With Differential [...] 30.5 pg 2016 Cbc With Differential Ord2 Collier% 4.7 % 2016 Cbc With Differential Ord2 [...] 3.53 K/ul 2016 Cbc With Differential Ord2 [place]lier ABS# 0.7 K/ul 2016 Cbc With Differential Ord2 Eos ABS# 0.2 K/ul 2016 Cbc With Differential Ord2 Baso ABS# 0.1 K/ul 2016 Lipid Ord30 CHOL 228 mg/dL 05/05/2016 Lipid Ord30 HDL 42.0 mg/dl 05/05/2016 Lipid Ord30 TRIG 168 mg/dL 05/05/2016 Lipid Ord30 LDL 152 mg/dL 05/05/2016 Lipid Ord30 C/HDL 5.4 Ratio 05/05/2016 Comp Metabolic Lsy383 NA 135 mEq/L 05/05/2016 Comp Metabolic Ngq694 K 4.1 mEq/L 05/05/2016 Comp Metabolic Ajh505 CL 99 mEq/L 05/05/2016 Comp Metabolic Rce089 CO2 29.0 mEq/L 05/05/2016 Comp Metabolic Ake888 ANION GAP 11 05/05/2016 Comp Metabolic Dun582 GLUCOSE 229 mg/dL 05/05/2016 Comp Metabolic Lpc709 Creat 0.5 mg/dL 05/05/2016 Comp Metabolic Uax588 eGFR 150 ml/min/1.73m2 05/05/2016 Comp Metabolic Zit431 BUN 14 mg/dL 05/05/2016 Comp Metabolic Oqs839 B/C Ratio 29.2 Ratio 05/05/2016 Comp Metabolic Prf012 CALCIUM 9.1 mg/dL 05/05/2016 Comp Metabolic Hof770 ALK PHOS 112 U/L 05/05/2016 Comp Metabolic Qno436 AST(SGOT) 59 U/L 05/05/2016 Comp Metabolic Hfb608 ALT(SGPT) 63 U/L 05/05/2016 Comp Metabolic Dvo233 BILI T 0.7 mg/dL 05/05/2016 Comp Metabolic Cia477 ALBUMIN 3.8 g/dL 05/05/2016 Comp Metabolic Wyt914 TPRO 6.5 g/dL 05/05/2016 Comp Metabolic Wfe775 GLOB 2.7 g/dL 05/05/2016 Comp Metabolic Wcd872 A/G Ratio 1.4 Ratio 05/05/2016 Comp Metabolic Amx740 Osmo 278 mOsmo 05/05/2016 Cbc With Differential [...] 30.2 pg 05/05/2016 Cbc With Differential Ord2 Collier% 4.4 % 05/05/2016 Cbc With Differential Ord2 [...] 3.59 K/ul 05/05/2016 Cbc With Differential Ord2 Collier ABS# 0.7 K/ul 05/05/2016 Cbc With Differential Ord2 Eos ABS# 0.1 K/ul 05/05/2016 Cbc With Differential Ord2 Baso ABS# 0.1 K/ul 05/05/2016 %Hba1C Swo315 % HbA1c 29004- 6 10.4 % 05/05/2016 %Hba1C Fyt036 Gluc Ave 252 mg/dL 05/05/2016 Hcg Beta Subunit Qual Serum 185578 B-HCG QUALITATIVE NEGATIVE 12/27/2015 GC/CHL PRB 9977164 Chl trach DNA Negative 12/25/2015 GC/CHL PRB 2448333 GC PROBE Negative 12/25/2015 Comp. Metabolic Panel (14) 83895 GLUCOSE 136 mg/dL 12/17/2015 Comp. Metabolic Panel (14) 05067 BUN 9 mg/dL 12/17/2015 Comp. Metabolic Panel (14) 02960 CREATININE 0.67 mg/dL 12/17/2015 Comp. Metabolic Panel (14) 53547 SODIUM 136 mmol/L 12/17/2015 Comp. Metabolic Panel (14) 02696 POTASSIUM 4.4 mmol/L 12/17/2015 Comp. Metabolic Panel (14) 13846 CHLORIDE 95 mmol/L 12/17/2015 Comp. Metabolic Panel (14) 80616 CARBON DIOXIDE 28 mmol/L 12/17/2015 Comp. Metabolic Panel (14) 28042 CALCIUM 10.1 mg/dL 12/17/2015 Comp. Metabolic Panel (14) 40664 TOTAL PROTEIN 7.0 g/dL 12/17/2015 Comp. Metabolic Panel (14) 40793 ALBUMIN 4.5 g/dL 12/17/2015 Comp. Metabolic Panel (14) 34197 ALKALINE PHOSPHATASE 87 U/L 12/17/2015 Comp. Metabolic Panel (14) 72962 TOTAL BILIRUBIN 0.5 mg/dL 12/17/2015 Comp. Metabolic Panel (14) 16797 SGOT (AST) 38 U/L 12/17/2015 Comp. Metabolic Panel (14) 83747 SGPT (ALT) 41 U/L 12/17/2015 Comp. Metabolic Panel (14) 37565 eGFR (mL/min/1.73m2) >60 12/17/2015 Comp. Metabolic Panel (14) 30697 12/17/2015 Cbc With Differential/Platelet 42869 WBC 16.67 thou/uL 12/17/2015 Cbc With Differential/Platelet 56057 RBC 5.11 mil/uL 12/17/2015 Cbc With Differential/Platelet 19809 HEMOGLOBIN 14.8 g/dL 12/17/2015 Cbc With Differential/Platelet 13792 HEMATOCRIT 48.7 % 12/17/2015 Cbc With Differential/Platelet 93018 MCV 95.4 fL 12/17/2015 Cbc With Differential/Platelet 14002 MCH 29.0 pg 12/17/2015 Cbc With Differential/Platelet 53804 MCHC 30.4 g/dL 12/17/2015 Cbc With Differential/Platelet 63083 RDW-CV 14.6 % 12/17/2015 Cbc With Differential/Platelet 97335 PLATELET COUNT 471 thou/uL 12/17/2015 Cbc With Differential/Platelet 60938 NEUTROPHIL % 71.3 % 12/17/2015 Cbc With Differential/Platelet 53495 LYMPHOCYTE % 22.4 % 12/17/2015 Cbc With Differential/Platelet 17499 MONOCYTE % 4.8 % 12/17/2015 Cbc With Differential/Platelet 01220 EOS % 0.7 % 12/17/2015 Cbc With Differential/Platelet 87784 BASO % 0.7 % 12/17/2015 Cbc With Differential/Platelet 79702 NEUTROPHIL ABS # 11.89 thou/uL 12/17/2015 Cbc With Differential/Platelet 25298 LYMPH ABS # 3.73 thou/uL 12/17/2015 Cbc With Differential/Platelet 12408 MONOCYTE ABS # 0.80 thou/uL 12/17/2015 Cbc With Differential/Platelet 74078 EOS ABS # 0.12 thou/uL 12/17/2015 Cbc With Differential/Platelet 94467 BASO ABS # 0.12 thou/uL 12/17/2015 Comp. [...] Hgb A1C With Eag Estimation GLYCOHEMOGLOBIN A1C 63259-3 8.1 % 11/13/2015 Hgb A1C With Eag Estimation ESTIMATED AVG GLUCOSE 186 mg/dL 11/13/2015 Comp. Metabolic Panel (14) 38908 GLUCOSE 84 mg/dL 09/11/2015 Comp. Metabolic Panel (14) 98217 BUN 11 mg/dL 09/11/2015 Comp. Metabolic Panel (14) 79067 CREATININE 0.56 mg/dL 09/11/2015 Comp. Metabolic Panel (14) 87703 SODIUM 142 mmol/L 09/11/2015 Comp. Metabolic Panel (14) 44239 POTASSIUM 4.3 mmol/L 09/11/2015 Comp. Metabolic Panel (14) 14988 CHLORIDE 98 mmol/L 09/11/2015 Comp. Metabolic Panel (14) 62424 CARBON DIOXIDE 27 mmol/L 09/11/2015 Comp. Metabolic Panel (14) 92845 CALCIUM 10.1 mg/dL 09/11/2015 Comp. Metabolic Panel (14) 68922 TOTAL PROTEIN 7.2 g/dL 09/11/2015 Comp. Metabolic Panel (14) 77955 ALBUMIN 4.7 g/dL 09/11/2015 Comp. Metabolic Panel (14) 53428 ALKALINE PHOSPHATASE 109 U/L 09/11/2015 Comp. Metabolic Panel (14) 73097 TOTAL BILIRUBIN 0.3 mg/dL 09/11/2015 Comp. Metabolic Panel (14) 43204 SGOT (AST) 53 U/L 09/11/2015 Comp. Metabolic Panel (14) 29781 SGPT (ALT) 53 U/L 09/11/2015 Comp. Metabolic Panel (14) 45385 eGFR (mL/min/1.73m2) >60 09/11/2015 Comp. Metabolic Panel (14) 28145 09/11/2015 Comp. Metabolic Panel (14) 71014 GLUCOSE 183 mg/dL 08/11/2015 Comp. Metabolic Panel (14) 78889 BUN 10 mg/dL 08/11/2015 Comp. Metabolic Panel (14) 40628 CREATININE 0.46 mg/dL 08/11/2015 Comp. Metabolic Panel (14) 97475 SODIUM 138 mmol/L 08/11/2015 Comp. Metabolic Panel (14) 73231 POTASSIUM 4.0 mmol/L 08/11/2015 Comp. Metabolic Panel (14) 67798 CHLORIDE 98 mmol/L 08/11/2015 Comp. Metabolic Panel (14) 87690 CARBON DIOXIDE 29 mmol/L 08/11/2015 Comp. Metabolic Panel (14) 69715 CALCIUM 9.4 mg/dL 08/11/2015 Comp. Metabolic Panel (14) 95091 TOTAL PROTEIN 6.8 g/dL 08/11/2015 Comp. Metabolic Panel (14) 19194 ALBUMIN 4.4 g/dL 08/11/2015 Comp. Metabolic Panel (14) 73273 ALKALINE PHOSPHATASE 118 U/L 08/11/2015 Comp. Metabolic Panel (14) 61323 TOTAL BILIRUBIN <0.3 mg/dL 08/11/2015 Comp. Metabolic Panel (14) 23239 SGOT (AST) 41 U/L 08/11/2015 Comp. Metabolic Panel (14) 97702 SGPT (ALT) 55 U/L 08/11/2015 Comp. Metabolic Panel (14) 25891 eGFR (mL/min/1.73m2) >60 08/11/2015 Comp. Metabolic Panel (14) 95205 08/11/2015 Cbc With Differential/Platelet 86050 WBC 11.76 thou/uL 08/11/2015 Cbc With Differential/Platelet 54468 RBC 4.98 mil/uL 08/11/2015 Cbc With Differential/Platelet 10558 HEMOGLOBIN 14.2 g/dL 08/11/2015 Cbc With Differential/Platelet 27658 HEMATOCRIT 46.7 % 08/11/2015 Cbc With Differential/Platelet 51903 MCV 93.8 fL 08/11/2015 Cbc With Differential/Platelet 88503 MCH 28.5 pg 08/11/2015 Cbc With Differential/Platelet 14192 MCHC 30.4 g/dL 08/11/2015 Cbc With Differential/Platelet 37015 RDW-CV 14.3 % 08/11/2015 Cbc With Differential/Platelet 60658 PLATELET COUNT 382 thou/uL 08/11/2015 Cbc With Differential/Platelet 28497 NEUTROPHIL % 67.3 % 08/11/2015 Cbc With Differential/Platelet 11224 LYMPHOCYTE % 24.0 % 08/11/2015 Cbc With Differential/Platelet 69433 MONOCYTE % 6.0 % 08/11/2015 Cbc With Differential/Platelet 18925 EOS % 1.6 % 08/11/2015 Cbc With Differential/Platelet 44793 BASO % 1.0 % 08/11/2015 Cbc With Differential/Platelet 92592 NEUTROPHIL ABS # 7.91 thou/uL 08/11/2015 Cbc With Differential/Platelet 55104 LYMPH ABS # 2.82 thou/uL 08/11/2015 Cbc With Differential/Platelet 44383 MONOCYTE ABS # 0.71 thou/uL 08/11/2015 Cbc With Differential/Platelet 78388 EOS ABS # 0.19 thou/uL 08/11/2015 Cbc With Differential/Platelet 25963 BASO ABS # 0.12 thou/uL 08/11/2015 Tsh 844320 TSH 3.220 uIU/mL 08/11/2015 Lipid Panel 00724 CHOLESTEROL 193 mg/dL 08/11/2015 Lipid Panel 87972 TRIGLYCERIDES 192 mg/dL 08/11/2015 Lipid Panel 98412 HDL 38 mg/dL 08/11/2015 Lipid Panel 77280 CHOLESTEROL/HDL 5.08 08/11/2015 Lipid Panel 91710 LDL (CALCULATED) 117 mg/dL 08/11/2015 Lipid Panel 67906 LDL/HDL 3.08 08/11/2015 Lipid Panel 05600 PHENOTYPE TYPE IV BORDERLINE 08/11/2015 Review of [...] Procedure Codes Date THER/PROPH/DIAG INJ SC/IM CPT-4: 58188 11/01/2018 TRIAMCINOLONE ACET INJ NOS CPT-4: J3301 11/01/2018 THER/PROPH/DIAG INJ SC/IM CPT-4: 69911 06/05/2018 ROCEPHIN, PER 250 MG CPT- 4: J0696 06/05/2018 REMOVAL OF SKIN TAGS <W/15 CPT-4: 21664 03/14/2018 FLU VAC NO PRSV 4 PRECIOUS 3 YRS+ CPT-4: 61912 03/14/2018 IMMUNIZATION ADMIN CPT- 4: 96229 03/14/2018 TRIAMCINOLONE ACET INJ NOS CPT-4: J3301 02/19/2018 THER/PROPH/DIAG INJ SC/IM CPT-4: 95821 02/19/2018 THER/PROPH/DIAG INJ SC/IM CPT-4: 59300 09/05/2017 TRIAMCINOLONE ACET INJ NOS CPT-4: J3301 09/05/2017 IMMUNIZATION ADMIN CPT- 4: 23850 04/24/2017 FLU VAC NO PRSV 4 PRECIOUS 3 YRS+ CPT-4: 80313 04/24/2017 DRAIN/INJECT JOINT/BURSA CPT-4: 01589 04/24/2017 TRIAMCINOLONE ACET INJ NOS CPT-4: J3301 04/24/2017 THER/PROPH/DIAG INJ SC/IM CPT-4: 39268 01/09/2017 TRIAMCINOLONE ACET INJ NOS CPT-4: J3301 01/09/2017 THER/PROPH/DIAG INJ SC/IM CPT-4: 49653 04/13/2016 Pneumococcal Polysaccharide Vaccine, 23-Valent, Ad CPT-4: 24113 04/13/2016 INJECT TRIGGER POINTS 3/> CPT-4: 52242 04/06/2016 TRIAMCINOLONE ACET INJ NOS CPT-4: J3301 04/06/2016 IMMUNIZATION ADMIN CPT- 4: 76446 03/30/2016 IIV4 FLU VACC NO PRESERV ID SNOMED CT: [id number] CPT-4: 75978 03/30/2016 TRIAMCINOLONE ACET INJ NOS CPT-4: J3301 02/28/2016 THER/PROPH/DIAG INJ SC/IM CPT-4: 37004 02/28/2016 TRIAMCINOLONE ACET INJ NOS CPT-4: J3301 08/20/2015 Vital Signs Date Vital 11/01/2018 Blood Pressure 1: 134/70 Code: 8480-6 BMI: 43.0 Code: 47000-8 Heart Rate 1: 110 bpm Height: 4'11" SpO2: 97% Temperature: 37.3 (C) / 99.1 (F) Weight: 213 lbs 08/06/2018 Blood Pressure 1: 130/80 Code: 8480-6 BMI: 42.8 Code: 58043-4 Heart Rate 1: 110 bpm Height: 4'11" [...] 1: 127 Code: 8480-6 BMI: 42.4 Code: 63992-9 Heart Rate 1: 78 bpm Height: 4'11" SpO2: 97% Weight: 210 lbs 03/26/2018 Blood Pressure 1: 128 Code: 8480-6 BMI: 43.0 Code: 15694-6 Heart Rate 1: 120 bpm Height: 4'11" SpO2: 97% Weight: 213 lbs 03/14/2018 Blood Pressure 1: 12074 Code: 8480-6 BMI: 43.0 Code: 56547-1 Heart Rate 1: 114 bpm Height: 4'11" SpO2: 95% Weight: 213 lbs 03/07/2018 Blood Pressure 1: 13274 Code: 8480-6 BMI: 43.8 Code: 28671-3 Heart Rate 1: 123 bpm Height: 4'11" [...] 1: 134/86 Code: 8480-6 BMI: 45.4 Code: 95516-9 Heart Rate 1: 108 bpm Height: 4'11" SpO2: 95% Weight: 225 lbs 06/07/2017 Blood Pressure 1: 132/74 Code: 8480-6 Heart Rate 1: 99 bpm Height: 4'11" SpO2: 95% 04/24/2017 Blood Pressure 1: 132/8096 Code: 8480-6 BMI: 47.7 Code: 98803-0 Heart Rate 1: 96 bpm Height: 4'11" Weight: 236 lbs 01/09/2017 Blood Pressure 1: 122/74 Code: 8480-6 BMI: 46.0 Code: 68513-7 Heart Rate 1: 114 bpm Height: 4'11" SpO2: 98% Temperature: 37.1 (C) / 98.7 (F) Weight: 228 lbs 10/30/2016 Blood Pressure 1: 124 Code: 8480-6 BMI: 49.1 Code: 91795-7 Heart Rate 1: 90 bpm Height: 4'11" SpO2: 97% Weight: 243 lbs 10/09/2016 Blood Pressure 1: 124 Code: 8480-6 BMI: 49.3 Code: 84123-0 Heart Rate 1: 91 bpm Height: 4'11" SpO2: 98% Weight: 244 lbs 09/12/2016 Blood Pressure 1: 12880 Code: 8480-6 BMI: 49.1 Code: 23426-7 Heart Rate 1: 94 bpm Height: 4'11" SpO2: 95% Weight: 243 lbs 09/05/2016 Blood Pressure 1: 11874 Code: 8480-6 BMI: 49.1 Code: 87924-2 Heart Rate 1: 100 bpm Height: 4'11" SpO2: 97% Weight: 243 lbs 06/16/2016 Blood Pressure 1: 120/62 Code: 8480-6 BMI: 49.1 Code: 03865-8 Heart Rate 1: 100 bpm Height: 4'11" SpO2: 96% Temperature: 36.7 (C) / 98.0 (F) Weight: 243 lbs 06/13/2016 Blood Pressure 1: 120/70 Code: 8480-6 Heart Rate 1: 117 bpm SpO2: 97% 05/19/2016 Blood Pressure 1: 130/64 Code: 8480-6 BMI: 49.1 Code: 15440-3 Heart Rate 1: 101 bpm Height: 4'11" SpO2: 96% Weight: 243 lbs 05/08/2016 Blood Pressure 1: 128/76 Code: 8480-6 Heart Rate 1: 119 bpm Height: SpO2: 97% Weight: 05/05/2016 Blood Pressure 1: 124 Code: 8480-6 BMI: 49.1 Code: 50357-9 Heart Rate 1: 75 bpm Height: 4'11" SpO2: 99% Weight: 243 lbs 04/10/2016 Blood Pressure 1: 140/80 Code: 8480-6 BMI: 49.7 Code: 06533-5 Heart Rate 1: 88 bpm Height: 4'11" SpO2: 95% Weight: 246 lbs 04/06/2016 Blood Pressure 1: 134/82 Code: 8480-6 BMI: 75.1 Code: 19171-6 Heart Rate 1: 72 bpm Height: 4' SpO2: 96% Weight: 246 lbs 03/08/2016 Blood Pressure 1: 126/72 Code: 8480-6 BMI: 49.7 Code: 70090-7 Heart Rate 1: 89 bpm Height: 4'11" SpO2: 97% Weight: 246 lbs 02/28/2016 Blood Pressure 1: 124/68 Code: 8480-6 BMI: 49.7 Code: 52549-9 Heart Rate 1: 89 bpm Height: 4'11" SpO2: 96% Weight: 246 lbs 01/18/2016 Blood Pressure 1: 142/78 Code: 8480-6 BMI: 48.9 Code: 86517-3 Heart Rate 1: 97 bpm Height: 4'11" SpO2: 97% Weight: 242 lbs 12/23/2015 Blood Pressure 1: 124/74 Code: 8480-6 BMI: 48.9 Code: 28220-2 Heart Rate 1: 106 bpm Height: 4'11" SpO2: 96% Weight: 242 lbs 12/16/2015 Blood Pressure 1: 116/82 Code: 8480-6 BMI: 48.3 Code: 63834-4 Heart Rate 1: 111 bpm Height: 4'11" SpO2: 97% Weight: 239 lbs 11/11/2015 Blood Pressure 1: 130/80 Code: 8480-6 BMI: 49.7 Code: 45920-6 Heart Rate 1: 105 bpm Height: 4'11" SpO2: 96% Weight: 246 lbs 10/27/2015 Blood Pressure 1: 122/70 Code: 8480-6 BMI: 49.5 Code: 36171-8 Heart Rate 1: 107 bpm Height: 4'11" SpO2: 96% Weight: 245 lbs 10/13/2015 Blood Pressure 1: 140/82 Code: 8480-6 BMI: 50.9 Code: 94108-3 Heart Rate 1: 111 bpm Height: 4'11" SpO2: 96% Weight: 252 lbs 10/05/2015 Blood Pressure 1: 118/70 Code: 8480-6 BMI: 51.1 Code: 51180-5 Heart Rate 1: 120 bpm Height: 4'11" SpO2: 97% Weight: 253 lbs 09/01/2015 Blood Pressure 1: 132/82 Code: 8480-6 BMI: 50.1 Code: 48364-0 Heart Rate 1: 110 bpm Height: 4'11" SpO2: 96% Weight: 248 lbs 08/20/2015 Blood Pressure 1: 132/78 Code: 8480-6 BMI: 51.7 Code: 79091-1 Heart Rate 1: 100 bpm Height: 4'11" Weight: 256 lbs 08/03/2015 Blood Pressure 1: 148/92 Code: 8480-6 BMI: 52.1 Code: 47910-5 Heart Rate 1: 100 bpm Height: 4'11" [...] allergic rhinitis[ICD10: J30.89] Gloria Hess MD, [facility] CPT- 4: 38747 11/01/2018 [id number] EST. PATIENT, LEVEL III Diagnosis: Essential (primary) hypertension[ICD10: I10] Gloria Hess MD, [facility] CPT-4: 83268 08/06/2018 [id number] EST. PATIENT, LEVEL III Diagnosis: Hidradenitis suppurativa[ICD10: L73.2] Gloria Hess MD, [facility] CPT- 4: 38850 07/22/2018 [id number] EST. PATIENT, LEVEL III Diagnosis: Hidradenitis suppurativa[ICD10: L73.2] Diagnosis: Encounter for other specified surgical aftercare[ICD10: Z48.89] Gloria Hess MD, [facility] CPT-4: 16795 07/18/2018 [id number] EST. PATIENT, LEVEL III Diagnosis: Cellulitis of right axilla[ICD10: L03.111] Diagnosis: Diarrhea, unspecified[ICD10: R19.7] Gloria Hess MD, [facility] CPT- 4: 04627 06/28/2018 ([id number]) [id number] EST. PATIENT, LEVEL II Diagnosis: Cellulitis of right axilla[ICD10: L03.111] Tamy Hess MD, [facility] CPT-4: 53951 06/17/2018 52692 EST. PATIENT, LEVEL III Diagnosis: Cellulitis of right axilla[ICD10: L03.111] Diagnosis: Type 2 diabetes mellitus with hyperglycemia[ICD10: E11.65] Gloria Hess MD, [facility] CPT-4: 09816 06/05/2018 31318 EST. PATIENT, LEVEL III Diagnosis: Gastro-esophageal reflux disease without esophagitis[ICD10: K21.9] Diagnosis: Other allergic rhinitis[ICD10: J30.89] Diagnosis: Cough[ICD10: R05] Gloria Hess MD, [facility] CPT-4: 97234 03/26/2018 ([id number]) 04942 EST. PATIENT, LEVEL III Diagnosis: Cough[ICD10: R05] Gloria Hess MD, [facility] CPT-4: 31333 03/14/2018 19738 EST. PATIENT, LEVEL IV Diagnosis: Acute laryngopharyngitis[ICD10: J06.0] Diagnosis: Other allergic rhinitis[ICD10: J30.89] Diagnosis: Cough[ICD10: R05] Gloria Hess MD, [facility] CPT-4: 87416 03/07/2018 38810 EST. PATIENT, LEVEL IV Diagnosis: Acute bronchitis due to other specified organisms[ICD10: J20.8] Diagnosis: Acute laryngopharyngitis[ICD10: J06.0] Gloria Hess MD, [facility] CPT- 4: 35345 02/19/2018 14132 EST. PATIENT, LEVEL IV Diagnosis: Candidiasis of vulva and vagina[ICD10: B37.3] Diagnosis: Rash and other nonspecific skin eruption[ICD10: R21] Gloria Hess MD, [facility] CPT-4: 97365 01/08/2018 82807 EST. PATIENT, LEVEL III Diagnosis: Sacrococcygeal disorders, not elsewhere classified[ICD10: M53.3] Diagnosis: Low back pain[ICD10: M54.5] Gloria Hess MD, [facility] CPT-4: 11065 11/23/2017 02027 EST. PATIENT, LEVEL III Diagnosis: Acute laryngopharyngitis[ICD10: J06.0] Diagnosis: Other allergic rhinitis[ICD10: J30.89] Diagnosis: Acute bronchitis due to other specified organisms[ICD10: J20.8] Gloria Hess MD, [facility] CPT-4: 96422 09/05/2017 02785 EST. PATIENT, LEVEL III Diagnosis: Pain in left foot[ICD10: M79.672] Diagnosis: Rash and other nonspecific skin eruption[ICD10: R21] Diagnosis: Candidiasis of vulva and vagina[ICD10: B37.3] Diagnosis: Localized edema[ICD10: R60.0] Diagnosis: Dyspnea, unspecified[ICD10: R06.00] Gloria Hess MD, [facility] CPT- 4: 32609 06/07/2017 44933 EST. PATIENT, LEVEL III Diagnosis: Low back pain[ICD10: M54.5] Diagnosis: Sacroiliitis, not elsewhere classified[ICD10: M46.1] Diagnosis: Pain in left foot[ICD10: M79.672] Diagnosis: VACCIN FOR INFLUENZA[ICD10: Z23] Gloria Hess MD, [facility] CPT-4: 47199 04/24/2017 83315 EST. PATIENT, LEVEL III Diagnosis: Acute suppurative otitis media without spontaneous rupture of ear drum, right ear[ICD10: H66.001] Diagnosis: Other allergic rhinitis[ICD10: J30.89] Gloria Hess MD, [facility] CPT- 4: 69623 01/09/2017 33344 EST. PATIENT, LEVEL IV Diagnosis: Candidiasis of vulva and vagina[ICD10: B37.3] Diagnosis: Type 2 diabetes mellitus with hyperglycemia[ICD10: E11.65] Gloria Hess MD, [facility] CPT-4: 58384 10/30/2016 83953 EST. PATIENT, LEVEL III Diagnosis: Candidiasis of vulva and vagina[ICD10: B37.3] Diagnosis: Type 2 diabetes mellitus with hyperglycemia[ICD10: E11.65] Gloria Hess MD, [facility] CPT-4: 97880 10/09/2016 85115 EST. PATIENT, LEVEL IV Diagnosis: Umbilical hernia without obstruction or gangrene[ICD10: K42.9] Gloria Hess MD, [facility] CPT-4: 88464 09/12/2016 84714 EST. PATIENT, LEVEL III Diagnosis: Epigastric pain[ICD10: R10.13] Diagnosis: Candidiasis of vulva and vagina[ICD10: B37.3] Diagnosis: Type 2 diabetes mellitus with hyperglycemia[ICD10: E11.65] Gloria Hess MD, [facility] CPT-4: 12450 09/05/2016 51342 EST. PATIENT, LEVEL III Diagnosis: Acute laryngopharyngitis[ICD10: J06.0] Diagnosis: Other allergic rhinitis[ICD10: J30.89] Gloria Hess MD, [facility] CPT- 4: 45568 06/16/2016 79888 EST. PATIENT, LEVEL III Diagnosis: Type 2 diabetes mellitus with hyperglycemia[ICD10: E11.65] Diagnosis: Other obesity due to excess calories[ICD10: E66.09] Gloria Hess MD, [facility] CPT-4: 11131 06/13/2016 64958 EST. PATIENT, LEVEL III Diagnosis: Type 2 diabetes mellitus with hyperglycemia[ICD10: E11.65] Diagnosis: Other obesity due to excess calories[ICD10: E66.09] Gloria Hess MD, [facility] CPT-4: 67715 05/19/2016 28806 EST. PATIENT, LEVEL III Diagnosis: Type 2 diabetes mellitus with hyperglycemia[ICD10: E11.65] Diagnosis: Other obesity due to excess calories[ICD10: E66.09] Gloria Hess MD, [facility] CPT-4: 67312 05/08/2016 42836 EST. PATIENT, LEVEL III Diagnosis: Type 2 diabetes mellitus without complications[ICD10: E11.9] Gloria Hess MD, [facility] CPT-4: 77848 05/05/2016 89454 EST. PATIENT, LEVEL III Diagnosis: Pain in right shoulder[ICD10: M25.511] Gloria Hess MD [facility] CPT- 4: 14507 04/10/2016 05717 EST. PATIENT, LEVEL III Diagnosis: Pain in right shoulder[ICD10: M25.511] Diagnosis: Other muscle spasm[ICD10: M62.838] Diagnosis: Type 2 diabetes mellitus without complications[ICD10: E11.9] Gloria Hess MD [facility] CPT-4: 97894 04/06/2016 65212 EST. PATIENT, LEVEL IV Diagnosis: Acute bronchitis due to other specified organisms[ICD10: J20.8] Diagnosis: Other acute sinusitis[ICD10: J01.80] Diagnosis: Acne vulgaris[ICD10: L70.0] Diagnosis: Morbid (severe) obesity due to excess calories[ICD10: E66.01] Gloria Hess MD [facility] CPT-4: 66787 03/08/2016 73285 EST. PATIENT, LEVEL IV Diagnosis: Other acute sinusitis[ICD10: J01.80] Diagnosis: Localized enlarged lymph nodes[ICD10: R59.0] Gloria Hess MD, [facility] CPT-4: 86607 02/28/2016 26029 EST. PATIENT, LEVEL III Diagnosis: Type 2 diabetes mellitus without complications[ICD10: E11.9] Gloria Hess MD [facility] CPT-4: 92683 01/18/2016 (05690) PREV VISIT EST AGE 40-64 Diagnosis: Encounter for gynecological examination (general) (routine) without abnormal findings[ICD10: Z01.419] Diagnosis: Excessive and frequent menstruation with irregular cycle[ICD10: N92.1] Gloria Hess MD [facility] CPT-4: 07304 12/23/2015 82201 EST. PATIENT, LEVEL III Diagnosis: Type 2 diabetes mellitus without complications[ICD10: E11.9] Gloria Hess MD [facility] CPT-4: 94746 12/16/2015 43538 EST. PATIENT, LEVEL III Diagnosis: Type 2 diabetes mellitus without complications[ICD10: E11.9] Diagnosis: Other obesity due to excess calories[ICD10: E66.09] Gloria Hess MD [facility] CPT-4: 41983 11/11/2015 64608 EST. PATIENT, LEVEL III Diagnosis: Type 2 diabetes mellitus without complications[ICD10: E11.9] Diagnosis: Other obesity due to excess calories[ICD10: E66.09] Gloria Hess MD, [facility] CPT-4: 56814 10/27/2015 75461 EST. PATIENT, LEVEL III Diagnosis: Type 2 diabetes mellitus without complications[ICD10: E11.9] Diagnosis: Other obesity due to excess calories[ICD10: E66.09] Diagnosis: Other insomnia[ICD10: G47.09] Gloria Hess MD, [facility] CPT-4: 72531 10/13/2015 90155 EST. PATIENT, LEVEL IV Diagnosis: Acute recurrent maxillary sinusitis[ICD10: J01.01] Diagnosis: Allergic rhinitis due to pollen[ICD10: J30.1] Diagnosis: Other obesity due to excess calories[ICD10: E66.09] Gloria Hess MD, [facility] CPT-4: 00296 10/05/2015 06764 EST. PATIENT, LEVEL IV Diagnosis: Polycystic ovarian syndrome[ICD10: E28.2] Diagnosis: Other skin changes[ICD10: R23.8] Diagnosis: Other abnormal glucose[ICD10: R73.09] Gloria Hess MD, [facility] CPT- 4: 56680 09/01/2015 41193 EST. PATIENT, LEVEL IV Diagnosis: Acute recurrent maxillary sinusitis[ICD10: J01.01] Diagnosis: Morbid (severe) obesity due to excess calories[ICD10: E66.01] Diagnosis: Essential (primary) hypertension[ICD10: I10] Diagnosis: Allergic rhinitis due to pollen[ICD10: J30.1] Gloria Hess MD, [facility] CPT-4: 67875 08/20/2015 (32191) OFFICE VISIT, NEW - LEVEL 4 Diagnosis: Essential (primary) hypertension[ICD10: I10] Diagnosis: Obstructive sleep apnea (adult) (pediatric)[ICD10: G47.33] Diagnosis: Other insomnia[ICD10: G47.09] Diagnosis: Snoring[ICD10: R06.83] Diagnosis: Morbid (severe) obesity due to excess calories[ICD10: E66.01] Gloria Hess MD, [facility] CPT-4: 53397 08/03/2015 Plan of Care Planned Activity Notes [...] spray. 11/01/2018 Appointment: Gloria Scott WPtel: [phone] [facility] (30 min) Complex 11/01/2018 Patient Education: Patient Medication Summary Completed 11/01/2018 Patient Education: Diabetes Completed 11/01/2018 Care Plan: Comp Metabolic Pending 11/01/2018 Care Plan: Cbc With Differential Pending 11/01/2018 Care Plan: %Hba1C LOINC : 50522-4 Pending 11/01/2018 Care Plan: Tsh Pending 11/01/2018 [...] acute concerns. 08/06/2018 App[facility]ment: [phone] ([facility] 08/06/2018 Patient Education: Patient Medication Summary Completed 08/06/2018 Visit Plan: incision - healing well - Wound Instructions - Pt was instructed to keep the wound clean, wash with antibacterial soap, use triple antibiotic ointment, call if redness, pustular drainage, or any other a cute concerns. Hidradenitis suppurativa - will refer to dermatology. 07/22/2018 Appointment: Gloria Scott WPtel: [facility] [place] (30 min) Complex 07/22/2018 Patient Education: Patient Medication Summary Completed 07/22/2018 Visit Plan: Hidradenitis suppurativa - post incision - wound healing well - continue to monitor Wound Instructions - Pt was instructed to keep the wound clean, wash with antibacterial soap, use triple antibiotic oi ntment, call if redness, pustular drainage, or any other acute concerns. 07/18/2018 Appointment: Gloria Scott WPtel: [facility] (30 min) Complex 07/18/2018 Patient Education: Patient Medication Summary Completed 07/18/2018 Referral: Roni Roberts pt will be notified by there office to schedule Initiated 07/03/2018 Care Plan: Referral Order SNOMED-CT : 470783261 Pending 07/01/2018 Visit Plan: Abscess/Cellulitis - The [...] stomach pain. 06/28/2018 Appointment: Gloria Scott WPtel: [facility] [place] (30 min) Complex 06/28/2018 Patient Education: Patient Medication Summary Completed 06/28/2018 Visit Plan: Cellulitis-right qdtfme-zlaqocyc-qdb bactroban ointment until healed completely-call with any concerns 06/17/2018 Appointment: Tamy Lugo WPtel: [phone] [place] (15 min) Moderate 06/17/2018 Patient Education: [...] warmth, discharge. 06/05/2018 Appointment: Gloria Scott WPtel: [facility]5 [facility] (30 min) Complex 06/05/2018 Patient Education: Patient Medication Summary Completed 06/05/2018 Patient Education: Diabetes Completed 06/05/2018 Referral: Wilner Jesus [facility] Referral Initiated 04/19/2018 Care Plan: Referral Order SNOMED-CT : [id number] Pending 03/27/2018 Visit Plan: Esophageal Reflux - [...] allergy spray. 03/26/2018 Appointment: Gloria Scott WPtel: [address] [place], [place] [phone] (15 min) Moderate 03/26/2018 Patient Education: Patient Medication Summary Completed 03/26/2018 Appointment: Gloria Scott WPtel: [address] [place], [place] [phone] (15 min) Moderate 03/25/2018 Visit Plan: Skin [...] and bandaids. 03/14/2018 Appointment: Gloria Scott WPtel: [address] [place], [place] [address] (15 min) Moderate 03/14/2018 Patient Education: Patient [...] not improve 03/07/2018 Appointment: Gloria Scott WPtel: [phone] [facility] (15 min) Moderate 03/07/2018 Patient [...] worsen. 02/19/2018 Appointment: Gloria Scott WPtel: [phone] [facility] (15 min) Moderate 02/19/2018 Patient [...] warmth, discharge. 01/08/2018 Appointment: Gloria Scott WPtel: [phone] [phone] (30 min) Complex 01/08/2018 Patient Education: Patient [...] worsen. 09/05/2017 Appointment: Gloria Scott WPtel: [phone] [facility] (15 min) Moderate 09/05/2017 Patient [...] send RX 06/07/2017 Appointment: Gloria Scott WPtel: [facility]3 [facility] (15 min) Moderate 06/07/2017 Patient [...] injection. 04/24/2017 Appointment: Gloria Scott WPtel: [phone] [facility] (30 min) Complex 04/24/2017 Patient Education: Patient Medication Summary Completed 04/24/2017 Appointment: Gloria Scott WPtel: [facility]3 [place] [address] [place] (30 min) Complex 03/09/2017 Appointment: Gloria Scott WPtel: [facility]6 [place] [phone] (30 min) Complex 02/13/2017 Visit [...] spray. 01/09/2017 Appointment: Gloria Scott WPtel: [facility]8 [facility] [place] (10 min) Simple 01/09/2017 Patient Education: Patient Medication Summary Completed 01/09/2017 Patient Education: Obesity Completed 01/09/2017 Visit Plan: Vaginal candidiasis - will send RX - pt is to notify clinic if symptoms do not improve, if they worsen, or with any questions or concerns. Diabetes Mellitus - Uncontrolled - Will refer to fiber optics technician - I have recommended for the patient [...] Mellitus - Uncontrolled - Will refer to fiber optics technician - I have recommended for the patient [...] control. 10/09/2016 Appointment: [facility]el[phone] ([facility] min) Complex 10/09/2016 Patient Education: Patient Medication Summary Completed 10/09/2016 Patient Education: Obesity Completed 10/09/2016 Referral: Roni Roberts Referral Completed 09/18/2016 Care Plan: CT ABD & PELV W/CONTRAST LOINC : 21487-6 Pending 09/13/2016 Care Plan: Referral Order SNOMED-CT : [id number] Pending 09/13/2016 Visit Plan: Ongoing abdominal pain/hernia - will send RX - will refer - pt is to notify clinic if symptoms do not improve, if they worsen, or with any questions or concerns. 09/12/2016 Appointment: Gloria Scott [facility]Ptel: [phone] (30 min) Complex 09/12/2016 Patient Education: Patient Medication Summary Completed 09/12/2016 Patient Education: Obesity Completed 09/12/2016 Care Plan: Referral Order SNOMED-CT : [id number] Pending 09/12/2016 Visit Plan: Ongoing abdominal/epigastric pain [...] control. 09/05/2016 Appointment: Gloria Scott [facility]Ptel: [phone] (30 min) Complex 09/05/2016 Patient [...] spray. 06/16/2016 Appointment: Gloria Scott WPtel: [phone] (10 min) Simple 06/16/2016 Patient Education: Patient [...] weight check. 06/13/2016 Appointment: Gloria Scott WPtel: [facility] (30 min) Complex 06/13/2016 Patient Education: Patient Medication Summary Completed 06/13/2016 Patient Education: Obesity Completed 06/13/2016 Appointment: Gloria Scott WPtel: [facility] (30 min) Complex 06/08/2016 Visit Plan: Diabetes [...] weight check. 05/19/2016 Appointment: Tamy Lugo WPtel: [phone] [place] (30 min) Complex 05/19/2016 Patient Education: [...] weight check. 05/08/2016 Appointment: Gloria Scott WPtel: [facility]5 [facility] (15 min) Moderate 05/08/2016 Patient [...] the morning. 05/05/2016 Appointment: Tamy Lugo WPtel: [facility]5 [phone] (15 min) Moderate 05/05/2016 Patient Education: Patient Medication Summary Completed 05/05/2016 Patient Education: Obesity Completed 05/05/2016 Care Plan: Comp Metabolic Pending 05/05/2016 Appointment: Jocelyn Hess WPtel: [phone] [facility] Surgical Procedure 04/17/2016 Appointment: Injection 04/13/2016 Patient Education: Patient Medication Summary Completed 04/13/2016 Visit Plan: Right shoulder pain - will refer to PT - The pt is to use prn antiinflammatories to manage acute pain. The patient is to call the office if the pain is worsening or does not improve. 04/10/2016 Appointment: Gloria Scott WPtel: [phone] (30 min) Complex 04/10/2016 Patient Education: Patient [...] control. 04/06/2016 Appointment: Gloria Scott WPtel: [phone] (15 min) Moderate 04/06/2016 Patient Education: Patient [...] [place] 02/28/2016 Appointment: Gloria Scott WPtel: [phone] [facility] (30 min) Complex 02/28/2016 Patient Education: Patient Medication Summary Completed 02/28/2016 Patient Education: Obesity Completed 02/28/2016 Appointment: Gloria Scott WPtel: [phone] [facility] (15 min) Moderate 01/31/2016 Visit [...] prn. 12/23/2015 Appointment: Gloria Scott WPtel: [phone] [facility] 12/23/2015 Patient Education: Patient Medication [...] %Hba1C ADD TO BLOOD IN THE LAB. [facility] : 63977-0 Pending 08/13/2015 Visit Plan: Hypertension - uncontrolled [...] Referral: Roni Roberts Referral Completed [facility] Ref[facility] Initiated Referral: Roni Roberts Referral [...] greater blood glucose control. steroid shot today anniack prednisone 40mg daily x 5 days - [...] of stomach upset or stomach pain. . Vaginal candidiasis - will send RX - pt is to notify clinic if symptoms do not improve, if they worsen, or with any questions or concerns. Diabetes Mellitus - Uncontrolled - Will refer to fiber optics technician - I have recommended for the patient [...] to allow for greater blood glucose control. MRI - left foot - ongoing history [...] notify clinic if symptoms do not improve . Diabetes Mellitus - Improved - The [...] Mellitus - Uncontrolled - Will refer to fiber optics technician - I have recommended for the patient [...] year, otherwise, RTC yearly or prn. . Sinusitis - Pt has acute infection [...] edema noted - will order US . Cellulitis-right yshlrq-njfqqpfe-kei bactroban ointment until healed completely-call with any concerns . Ongoing abdominal pain/hernia - will send RX - will refer - pt is to notify clinic if symptoms do not improve, if they worsen, or with any questions or concerns. Pt has been advised to increase the [...] pain is worsening or does not improve. Will check fasting labs, will send for [...] to further attempt to reduce peripheral edema. Continue ibuprofen 600mg - 800mg 3 times [...]
--- OUTSIDE RECORDS SUMMARY | 2018-12-17 02:54 | XMS REPORT | CCD ---
Author Author [facility] Address [address] [place] [address] Phone Care Team Providers [facility] Name Role Phone PP Unavailable CCM Unavailable Summary Purpose Interface Exchange Insurance Providers Payer name Policy type / Coverage type Covered libertarian ID Effective Begin Date Effective End Date [facility] Commercial Insurance [id number] Unknown Unknown Family history Father Diagnosis Age At Onset Hypertension Unknown Arthritis Unknown Mother Diagnosis Age At Onset Arthritis Unknown Hyperlipidemia Unknown Daughter Diagnosis Age At Onset Asthma Unknown Social History Social History Element Codes Description Effective Dates Marital status Unknown Darin 08/03/2015 Number of children Unknown 1 08/03/[address]: 5274092 Quit less than 5 years ago 08/03/2015 Number of years using tobacco Unknown 20 - 30 08/03/2015 Alcohol history Unknown occasionally drinks alcohol 08/03/2015 Allergies, Adverse Reactions, Alerts Allergies, Adverse Reactions, Alerts data not found Past Medical History Illness Codes Condition Status Onset Date Resolved Date Candidiasis of vulva and vagina ICD-9: 112.1 ICD-10: B37.3 Active 09/05/2016 Unknown Type 2 diabetes mellitus with hyperglycemia ICD-9: 250.02 ICD-10: E11.65 Active 06/12/2016 Unknown Umbilical hernia without obstruction or gangrene ICD-9: 553.1 ICD-10: K42.9 Active 09/12/2016 Unknown Epigastric pain ICD-9: 789.06 ICD-10: R10.13 Active 09/05/2016 Unknown Acute [...] 9: 728.85 ICD-10: M62.838 Active 04/05/2016 Unknown VACCIN FOR INFLUENZA ICD- 9: V04.81 ICD-10: Z23 Active 03/29/2016 Unknown Acne vulgaris ICD-9: 706.1 ICD-10: L70.0 [...] 9: 709.8 ICD-10: R23.8 Active 08/31/2015 Unknown Polycystic ovarian syndrome ICD-9: 256.4 ICD-10: E28.2 Active 08/31/2015 Unknown Essential (primary) hypertension ICD-9: 401.9 ICD-10: I10 Active 08/19/2015 Unknown Hypertension Unknown Active 08/03/2015 Unknown Obstructive sleep apnea (adult) (pediatric) ICD-9: 327.23 ICD-10: G47.33 Active 08/02/2015 Unknown Snoring ICD-9: 786.09 ICD-10: R06.83 Active 08/02/2015 Unknown Problems Condition Codes Effective Dates Condition Status Candidiasis of vulva and vagina ICD-9: 112.1 ICD-10: B37.3 09/05/2016 Active Type 2 diabetes mellitus with hyperglycemia ICD-9: 250.02 ICD-10: E11.65 06/12/2016 Active Umbilical hernia without obstruction or gangrene ICD-9: 553.1 ICD-10: K42.9 09/12/2016 Active Epigastric pain ICD-9: 789.06 ICD-10: R10.13 09/05/2016 Active Acute laryngopharyngitis [...] ICD- 9: 728.85 ICD-10: M62.838 04/05/2016 Active VACCIN FOR INFLUENZA ICD- 9: V04.81 ICD-10: Z23 03/29/2016 Active Acne vulgaris ICD-9: 706.1 ICD-10: L70.0 [...] ICD- 9: 709.8 ICD-10: R23.8 08/31/2015 Active Polycystic ovarian syndrome ICD-9: 256.4 ICD-10: E28.2 08/31/2015 Active Essential (primary) hypertension ICD-9: 401.9 ICD-10: I10 08/19/2015 Active Hypertension Unknown 08/03/2015 Active Obstructive sleep apnea (adult) (pediatric) ICD-9: 327.23 ICD-10: G47.33 08/02/2015 Active Snoring ICD-9: 786.09 ICD-10: R06.83 08/02/2015 Active Medications Medication Codes Instructions Start Date Stop Date Status Fill Instructions promethazine 25 mg tablet RxNorm: 534765 Tablet(s) TAKE ONE TABLET BY MOUTH EVERY 6 TO 8 HOURS NEEDED 12/29/2016 01/12/2017 Active Voltaren 1 % topical gel RxNorm: 968691 APPLY TOPICALLY TO AFFECTED AREA TWICE DAILY 12/25/2016 01/13/2017 Active cyclobenzaprine 10 mg tablet RxNorm: 211431 TAKE ONE TABLET BY MOUTH NEEDED 12/22/2016 12/31/2016 Active lidocaine 5 % topical patch RxNorm: 1841785 USE ONE PATCH TOPICALLY DAILY. 12 HOURS ON AND THEN 12 HOURS OFF. 12/22/2016 12/31/2016 Active hydrocodone 7.5 mg-acetaminophen 325 mg tablet RxNorm: 182264 1 Tablet(s) PO Q4H as needed 12/22/2016 01/20/2017 Active bumetanide 1 mg tablet RxNorm: 742120 TAKE ONE TABLET BY MOUTH TWICE DAILY 12/17/2016 01/15/2017 Active promethazine 25 mg tablet RxNorm: 071831 Tablet(s) TAKE ONE TABLET BY MOUTH EVERY 6 TO 8 HOURS NEEDED 11/16/2016 12/15/2016 Inactive spironolactone 50 mg tablet RxNorm: 950517 TAKE ONE TABLET BY MOUTH TWICE DAILY 11/15/2016 05/13/2017 Active Basaglar KwikPen 100 unit/mL (3 mL) subcutaneous RxNorm: 4723454 Unit(s) INJECT 35 UNITS IN THE MORNING AND 50 UNITS IN THE EVENING SUBCUTANEOUSLY 11/15/2016 03/14/2017 Active cyclobenzaprine 10 mg tablet RxNorm: 677553 TAKE ONE TABLET BY MOUTH NEEDED 11/15/2016 12/04/2016 Inactive lidocaine 5 % topical patch RxNorm: 1120306 1 Patch TOP daily . 12 HOURS ON, 12 HOURS OFF 11/15/2016 12/04/2016 Inactive lidocaine 4 % topical patch RxNorm: 3758733 1 Patch TOP on for 12 hours and off for 12 hours 11/14/2016 11/14/2016 Inactive promethazine 25 mg tablet RxNorm: 658356 TAKE ONE TABLET BY MOUTH EVERY 6 TO 8 HOURS NEEDED 11/14/2016 11/15/2016 Inactive Basaglar KwikPen 100 unit/mL (3 mL) subcutaneous RxNorm: 2464285 INJECT 35 UNITS IN THE MORNING AND 50 UNITS IN THE EVENING SUBCUTANEOUSLY 11/14/2016 11/14/2016 Inactive cyclobenzaprine 10 mg tablet RxNorm: 281805 TAKE ONE TABLET BY MOUTH NEEDED 11/14/2016 11/14/2016 Inactive spironolactone 50 mg tablet RxNorm: 827811 TAKE ONE TABLET BY MOUTH TWICE DAILY 11/14/2016 11/14/2016 Inactive Humalog KwikPen 200 unit/mL (3 mL) subcutaneous RxNorm: 7290880 35 Unit(s) SQ AC 10/30/2016 No Stop Date Active QS 30 day supply Diflucan 150 mg tablet RxNorm: 564373 1 Tablet(s) PO as needed prophylactic after sexual intercourse 10/30/2016 No Stop Date Active hydrocodone 7.5 mg-acetaminophen 325 mg tablet RxNorm: 255959 1 Tablet(s) PO Q4H as needed 10/30/2016 11/28/2016 Inactive clotrimazole 100 mg vaginal tablet RxNorm: 058909 1 Tablet(s) VAG QW 10/30/2016 11/28/2016 Inactive Bydureon 2 mg/0.65 mL subcutaneous pen injector RxNorm: 9701687 2 Milligram(s) SQ QW 10/30/2016 11/28/2016 Inactive Basaglar KwikPen 100 unit/mL (3 mL) subcutaneous RxNorm: 2517238 Unit(s) SQ 35 units in the morning and 50 units in the evening 10/30/2016 11/13/2016 Inactive QS 30 day supply cyclobenzaprine 10 mg tablet RxNorm: 848257 TAKE ONE TABLET BY MOUTH NEEDED 10/27/2016 11/05/2016 Inactive Diflucan 150 mg tablet RxNorm: 148400 1 Tablet(s) PO daily x 7 days then once a week 10/27/2016 10/29/2016 Inactive promethazine 25 mg tablet RxNorm: 366432 TAKE ONE TABLET BY MOUTH EVERY 6 TO 8 HOURS NEEDED 10/27/2016 11/10/2016 Inactive Diflucan 150 mg tablet RxNorm: 202946 1 Tablet(s) PO daily x 7 days then once a week 10/09/2016 10/15/2016 Inactive Diflucan 150 mg tablet RxNorm: 516154 1 Tablet(s) PO daily 09/20/2016 09/26/2016 Inactive Cipro 500 mg tablet RxNorm: 135227 1 Tablet(s) PO BID 09/12/2016 09/21/2016 Inactive Flagyl 500 mg tablet RxNorm: 544699 1 Tablet(s) PO TID 09/12/2016 09/21/2016 Inactive Diflucan 150 mg tablet RxNorm: 438447 1 Tablet(s) PO daily 09/06/2016 09/12/2016 Inactive hydrocodone 7.5 mg-acetaminophen 325 mg tablet RxNorm: 458446 1 Tablet(s) PO Q4H as needed 07/12/2016 08/10/2016 Inactive Xopenex 1.25 mg/3 mL solution for nebulization RxNorm: 992616 3 Milliliter(s) INH TID 06/16/2016 No Stop Date Active cefdinir 300 mg capsule RxNorm: 485882 1 Capsule(s) PO BID 06/16/2016 06/25/2016 Inactive Mobic 7.5 mg tablet RxNorm: 314814 1 Tablet(s) PO daily 06/16/2016 06/25/2016 Inactive Levaquin 500 mg tablet RxNorm: 729835 1 Tablet(s) PO daily 06/16/2016 06/22/2016 Inactive cyclobenzaprine 10 mg tablet RxNorm: 164137 1 Tablet(s) PO PRN as needed 06/14/2016 06/23/2016 Inactive promethazine 25 mg tablet RxNorm: 090166 TAKE ONE TABLET BY MOUTH EVERY 6 TO 8 HOURS NEEDED 06/14/2016 06/28/2016 Inactive Xopenex HFA 45 mcg/actuation aerosol inhaler RxNorm: 442985 1 Puff(s) INH PRN 06/14/2016 07/15/2016 Inactive pen needle, diabetic 32 gauge x 5/16" RxNorm: 1 use Miscellaneous AC & HS 06/13/2016 No Stop Date Active QS 30 day supply Humalog KwikPen 200 unit/mL (3 mL) subcutaneous RxNorm: 8538426 10 Unit(s) SQ AC 06/13/2016 10/29/2016 Inactive QS 30 day supply Basaglar KwikPen 100 unit/mL (3 mL) subcutaneous RxNorm: 6085446 22 units in the morning and 35 in the evening. Unit(s) SQ 06/13/2016 10/29/2016 Inactive QS 30 day supply Tivorbex 20 mg capsule RxNorm: 7629520 1 Capsule(s) PO TID as needed 06/13/2016 06/13/2016 Inactive metoprolol succinate ER 100 mg tablet,extended release 24 hr RxNorm: 058527 TAKE ONE TABLET BY MOUTH ONCE DAILY 06/13/2016 10/10/2016 Inactive hydrocodone 7.5 mg-acetaminophen 325 mg tablet RxNorm: 558401 1 Tablet(s) PO Q4H as needed 06/13/2016 07/11/2016 Inactive Voltaren 1 % topical gel RxNorm: 092167 APPLY TOPICALLY TO AFFECTED AREA TWICE DAILY 05/30/2016 07/08/2016 Inactive alprazolam 0.5 mg tablet RxNorm: 299330 1 Tablet(s) PO Q8 as needed 05/19/2016 No Stop Date Active cyclobenzaprine 10 mg tablet RxNorm: 656216 1 Tablet(s) PO PRN as needed 05/19/2016 05/28/2016 Inactive bumetanide 1 mg tablet RxNorm: 215128 TAKE ONE TABLET BY MOUTH TWICE DAILY 05/19/2016 06/17/2016 Inactive Sprintec (28) 0.25 mg-35 mcg tablet RxNorm: 045314 1 Tablet(s) PO UD 05/08/2016 No Stop Date Active Lantus Solostar 100 unit/mL (3 mL) subcutaneous insulin pen RxNorm: 527809 Unit(s) SQ UD 15units qam 30 units qhs 05/08/2016 No Stop Date Active Humalog KwikPen 200 unit/mL (3 mL) subcutaneous RxNorm: 5610328 10 Unit(s) SQ AC 05/08/2016 06/12/2016 Inactive bumetanide 1 mg tablet RxNorm: 116773 TAKE ONE TABLET BY MOUTH TWICE DAILY 04/28/2016 05/18/2016 Inactive Voltaren 1 % topical gel RxNorm: 281482 1 Application TOP BID 04/28/2016 05/07/2016 Inactive cyclobenzaprine 10 mg tablet RxNorm: 327725 1 Tablet(s) PO PRN as needed 04/28/2016 05/07/2016 Inactive hydrocodone 7.5 mg-acetaminophen 325 mg tablet RxNorm: 323760 1 Tablet(s) PO Q4H as needed 04/18/2016 05/16/2016 Inactive Lantus Solostar 100 unit/mL (3 mL) subcutaneous insulin pen RxNorm: 633602 Unit(s) SQ UD 10 units QHS x5 days, if sugars are over 200 increase to 15 units x 5 days, if sugars over 200 increase to 20 units. 04/14/2016 05/07/2016 Inactive lidocaine 4 % topical patch RxNorm: 3203592 1 Patch TOP on for 12 hours and off for 12 hours 04/13/2016 11/13/2016 Inactive Voltaren 1 % topical gel RxNorm: 511722 1 Application TOP BID 04/10/2016 04/27/2016 Inactive metformin ER 500 mg 24 hr tablet,extended release RxNorm: 388688 1 Tablet(s) PO daily 04/06/2016 05/05/2016 Inactive Kenalog 40 mg/mL suspension for injection RxNorm: 1479396 1 Milliliter(s) Inj 04/06/2016 04/06/2016 Inactive cyclobenzaprine 10 mg tablet RxNorm: 229671 1 Tablet(s) PO PRN as needed 04/06/2016 04/27/2016 Inactive WelChol 3.75 gram oral powder packet RxNorm: 263669 1 packet PO daily 04/06/2016 07/04/2016 Inactive alprazolam 0.5 mg tablet RxNorm: 137048 1 Tablet(s) PO Q8 as needed 03/30/2016 No Stop Date Active Levaquin 500 mg tablet RxNorm: 329580 1 Tablet(s) PO daily 03/30/2016 04/05/2016 Inactive metoprolol succinate ER 100 mg tablet,extended release 24 hr RxNorm: 593784 TAKE ONE TABLET BY MOUTH ONCE DAILY 03/16/2016 06/12/2016 Inactive Levaquin 500 mg tablet RxNorm: 952319 1 Tablet(s) PO daily 03/08/2016 03/14/2016 Inactive prednisone 20 mg tablet RxNorm: 732921 2 Tablet(s) PO daily 03/08/2016 03/12/2016 Inactive Phenergan with Codeine Syrup RxNorm: 5-10 ML PO QID as needed cough 02/28/2016 No Stop Date Active Xopenex HFA 45 mcg/actuation aerosol inhaler RxNorm: 191807 1 Puff(s) INH PRN 02/28/2016 06/13/2016 Inactive Kenalog 40 mg/mL suspension for injection RxNorm: 6247038 1 Milliliter(s) Inj 02/28/2016 02/28/2016 Inactive Zithromax Z-Rashid 250 mg tablet RxNorm: 886769 1 Tablet(s) PO UD 02/28/2016 03/27/2016 Inactive alprazolam 0.5 mg tablet RxNorm: 945045 1 Tablet(s) PO Q8 as needed 02/24/2016 03/21/2016 Inactive glipizide 5 mg tablet RxNorm: 217840 1 Tablet(s) PO daily 01/18/2016 05/16/2016 Inactive Actos 15 mg tablet RxNorm: 408290 1 Tablet(s) PO daily 01/18/2016 02/16/2016 Inactive gabapentin 100 mg capsule RxNorm: 772088 1 Capsule(s) PO QHS 01/13/2016 03/12/2016 Inactive gabapentin 100 mg capsule RxNorm: 870319 1 Capsule(s) PO QHS 01/13/2016 01/12/2016 Inactive Bydureon 2 mg/0.65 mL subcutaneous pen injector RxNorm: 4978313 1 Milliliter(s) SQ QW 01/12/2016 01/11/2016 Inactive Bydureon 2 mg/0.65 mL subcutaneous pen injector RxNorm: 0543510 2/0.65ml Milligram(s) SQ QW 01/12/2016 05/16/2016 Inactive Bydureon 2 mg/0.65 mL subcutaneous pen injector RxNorm: 6261108 1 Milliliter(s) SQ QW 01/12/2016 01/11/2016 Inactive bumetanide 1 mg tablet RxNorm: 459349 TAKE ONE TABLET BY MOUTH TWICE DAILY 01/10/2016 04/08/2016 Inactive promethazine 25 mg tablet RxNorm: 994363 Tablet(s) Tablet(s) 1 Tablet(s) PO Q6-8H as needed 12/16/2015 04/13/2016 Inactive promethazine 25 mg tablet RxNorm: 364317 Tablet(s) 1 Tablet(s) PO Q6-8H as needed 12/10/2015 12/15/2015 Inactive Trulicity 0.75 mg/0.5 mL subcutaneous pen injector RxNorm: 0114346 INJECT ONE-HALF ML SUBCUTANEOUSLY ONCE A WEEK 12/10/2015 01/11/2016 Inactive glipizide 5 mg tablet RxNorm: 048751 1 Tablet(s) PO daily 12/10/2015 01/17/2016 Inactive bumetanide 1 mg tablet RxNorm: 606218 TAKE ONE TABLET BY MOUTH TWICE DAILY 12/10/2015 01/08/2016 Inactive promethazine 25 mg tablet RxNorm: 944456 Tablet(s) 1 Tablet(s) PO Q6-8H as needed 11/18/2015 12/09/2015 Inactive promethazine 25 mg tablet RxNorm: 802633 1 Tablet(s) PO Q6-8H as needed 11/16/2015 11/17/2015 Inactive glipizide 5 mg tablet RxNorm: 271674 1/2 Tablet(s) PO daily 11/16/2015 12/15/2015 Inactive promethazine 25 mg tablet RxNorm: 065029 Tablet(s) 1 Tablet(s) PO Q6-8H as needed 11/11/2015 12/10/2015 Inactive metoprolol tartrate 50 mg tablet RxNorm: 679704 1 Tablet(s) PO BID 11/11/2015 02/08/2016 Inactive Trulicity 0.75 mg/0.5 mL subcutaneous pen injector RxNorm: 3804580 .5 Milliliter(s) SQ QW 11/11/2015 01/11/2016 Inactive promethazine 25 mg tablet RxNorm: 443090 1 Tablet(s) PO Q6-8H as needed 10/28/2015 11/10/2015 Inactive nystatin 100,000 unit/gram topical cream RxNorm: 738764 1 Gram(s) TOP BID 10/27/2015 No Stop Date Active alprazolam 0.5 mg tablet RxNorm: 897179 1 Tablet(s) PO Q8 as needed 10/27/2015 03/29/2016 Inactive hydrocodone 7.5 mg-acetaminophen 325 mg tablet RxNorm: 401230 1 Tablet(s) PO Q4H as needed 10/27/2015 11/25/2015 Inactive Trulicity 0.75 mg/0.5 mL subcutaneous pen injector RxNorm: 7501440 .5 Milliliter(s) SQ QW 10/27/2015 11/10/2015 Inactive glipizide 5 mg tablet RxNorm: 777889 1 Tablet(s) PO daily 10/27/2015 11/25/2015 Inactive hydrocodone 7.5 mg-acetaminophen 325 mg tablet RxNorm: 712442 1 Tablet(s) PO Q4H as needed 10/26/2015 10/26/2015 Inactive alprazolam 0.5 mg tablet RxNorm: 565743 1 Tablet(s) PO PRN as needed 10/26/2015 10/26/2015 Inactive promethazine 25 mg tablet RxNorm: 281572 1 Tablet(s) PO Q6-8H as needed 10/26/2015 11/15/2015 Inactive glipizide 5 mg tablet RxNorm: 016804 1/2 Tablet(s) PO daily 10/13/2015 10/26/2015 Inactive cefdinir 300 mg capsule RxNorm: 068270 1 Capsule(s) PO BID 10/05/2015 10/14/2015 Inactive prednisone 20 mg tablet RxNorm: 971710 2 Tablet(s) PO daily 10/05/2015 10/09/2015 Inactive Diflucan 150 mg tablet RxNorm: 083992 1 Tablet(s) PO daily 10/05/2015 10/11/2015 Inactive Invokamet 50 mg-500 mg tablet RxNorm: 4682583 1 Tablet(s) PO daily 10/05/2015 11/03/2015 Inactive alprazolam 0.5 mg tablet RxNorm: 685991 1 Tablet(s) PO PRN as needed 10/01/2015 02/23/2016 Inactive promethazine 25 mg tablet RxNorm: 060519 1 Tablet(s) PO Q6-8H as needed 09/30/2015 10/25/2015 Inactive bumetanide 1 mg tablet RxNorm: 150093 TAKE ONE TABLET BY MOUTH TWICE DAILY 09/30/2015 10/29/2015 Inactive bumetanide 1 mg tablet RxNorm: 650834 TAKE ONE TABLET BY MOUTH TWICE DAILY 09/20/2015 12/18/2015 Inactive bumetanide 1 mg tablet RxNorm: 712173 1 Tablet(s) PO BID 09/20/2015 10/19/2015 Inactive metoprolol succinate ER 100 mg tablet,extended release 24 hr RxNorm: 810604 1 Tablet(s) PO daily 09/16/2015 03/13/2016 Inactive spironolactone 50 mg tablet RxNorm: 413259 1 Tablet(s) PO BID 09/16/2015 03/13/2016 Inactive alprazolam 0.5 mg tablet RxNorm: 033558 1 Tablet(s) PO PRN as needed 09/16/2015 10/25/2015 Inactive hydrocodone 7.5 mg-acetaminophen 325 mg tablet RxNorm: 028185 1 Tablet(s) PO Q4H as needed 09/16/2015 10/25/2015 Inactive Invokamet 50 mg-1,000 mg tablet RxNorm: 0868621 1 Tablet(s) PO daily 09/06/2015 09/05/2015 Inactive Invokamet 50 mg-1,000 mg tablet RxNorm: 3838359 1 Tablet(s) PO daily 09/06/2015 12/04/2015 Inactive promethazine 25 mg tablet RxNorm: 649939 TAKE ONE TABLET BY MOUTH EVERY 6 TO 8 HOURS NEEDED 09/01/2015 09/16/2015 Inactive promethazine 25 mg tablet RxNorm: 618656 1 Tablet(s) PO Q6-8H as needed 08/27/2015 09/25/2015 Inactive metoprolol succinate ER 100 mg tablet,extended release 24 hr RxNorm: 465198 1 Tablet(s) PO daily 08/20/2015 09/15/2015 Inactive bumetanide 1 mg tablet RxNorm: 435263 1 Tablet(s) PO BID 08/20/2015 09/18/2015 Inactive Bumex 1 mg tablet RxNorm: 026029 1 Tablet(s) PO BID 08/20/2015 11/15/2015 Inactive Kenalog 40 mg/mL suspension for injection RxNorm: 8033538 Milliliter(s) Inj 08/20/2015 08/20/2015 Inactive bumetanide 1 mg tablet RxNorm: 646003 1 Tablet(s) PO BID 08/20/2015 08/19/2015 Inactive Levaquin 500 mg tablet RxNorm: 134994 1 Tablet(s) PO daily 08/20/2015 08/26/2015 Inactive promethazine 25 mg tablet RxNorm: 734970 1 Tablet(s) PO Q6-8H as needed 08/06/2015 08/26/2015 Inactive metformin 500 mg tablet RxNorm: 318356 Tablet(s) PO 500mg in the morning and 1000mg at night No Start Date 09/16/2015 Inactive Lantus Solostar 100 unit/mL (3 mL) subcutaneous insulin pen RxNorm: 657892 Unit(s) SQ UD 10 units QHS x 5 days, if blood sugars are above 200 increase to 15 units x 5 days, if still 200 increase to 20 units. No Start Date 04/13/2016 Inactive alprazolam 0.5 mg tablet RxNorm: 606573 1 Tablet(s) PO PRN as needed No Start Date 09/15/2015 Inactive cyclobenzaprine 10 mg tablet RxNorm: 034774 1 Tablet(s) PO PRN as needed No Start Date 04/05/2016 Inactive lidocaine 4 % topical patch RxNorm: 0308663 1 Patch TOP on for 12 hours and off for 12 hours No Start Date 04/12/2016 Inactive metoprolol tartrate 50 mg tablet RxNorm: 247877 1 Tablet(s) PO BID No Start Date 11/10/2015 Inactive spironolactone 50 mg tablet RxNorm: 675977 1 Tablet(s) PO BID No Start Date 09/15/2015 Inactive hydrocodone 7.5 mg-acetaminophen 325 mg tablet RxNorm: 748134 1 Tablet(s) PO Q4H as needed No Start Date 09/15/2015 Inactive promethazine 25 mg tablet RxNorm: 486885 1 Tablet(s) PO PRN as needed No Start Date 08/05/2015 Inactive Medication Administered Medication Codes Instructions Start Date Status Kenalog 40 mg/mL suspension for injection RxNorm: 1023373 1Milliliter 04/06/2016 No longer Active Kenalog 40 mg/mL suspension for injection RxNorm: 4446940 1Milliliter 02/28/2016 No longer Active Kenalog 40 mg/mL suspension for injection RxNorm: 9463182 Milliliter 08/20/2015 No longer Active Immunizations Vaccine Codes Date Status Pneumococcal (Adult) CVX: 33 04/13/2016 completed Influenza CVX: 141 03/30/2016 completed Assessments Condition Codes Effective Dates Type 2 diabetes mellitus with hyperglycemia ICD-10: E11.65 ICD-9: 250.02 10/30/2016 Candidiasis of vulva and vagina ICD-10: B37.3 ICD-9: 112.1 10/30/2016 Umbilical hernia without obstruction or gangrene ICD-10: K42.9 ICD-9: 553.1 09/12/2016 Epigastric pain ICD-10: R10.13 ICD-9: 789.06 09/05/2016 Acute laryngopharyngitis ICD-10: J06.0 ICD-9: 465.0 06/16/2016 Other allergic rhinitis ICD-10: J30.89 ICD-9: 477.8 06/16/2016 Other obesity due to excess calories ICD-10: E66.09 ICD-9: 278.00 06/13/2016 Type 2 diabetes mellitus without complications ICD-10: E11.9 ICD-9: 250.00 05/05/2016 Encounter for immunization ICD-10: Z23 ICD-9: V05.9 04/13/2016 Pain in right shoulder ICD-10: M25.511 ICD-9: 719.41 04/10/2016 Other muscle spasm ICD-10: M62.838 ICD-9: 728.85 04/06/2016 VACCIN FOR INFLUENZA ICD-10: Z23 ICD-9: V04.81 03/30/2016 Other acute sinusitis ICD-10: J01.80 ICD-9: 461.8 03/08/2016 Acute bronchitis due to other specified organisms ICD-10: J20.8 ICD-9: 466.0 03/08/2016 Acne vulgaris ICD-10: L70.0 ICD-9: 706.1 [...] skin changes ICD-10: R23.8 ICD-9: 709.8 09/01/2015 Polycystic ovarian syndrome ICD-10: E28.2 ICD-9: 256.4 09/01/2015 Essential (primary) hypertension ICD-10: I10 ICD-9: 401.9 08/20/2015 Snoring ICD-10: R06.83 ICD-9: 786.09 08/03/2015 Obstructive sleep apnea (adult) (pediatric) ICD-10: G47.33 ICD-9: 327.23 08/03/2015 Reason For Visit Reason For Visit Effective Dates Notes vaginal discharge 10/30/2016 vaginal discharge 10/09/2016 abdominal [...] Code Item Item Code Result Date %Hba1C Tys326 % HbA1c 72660- 6 11.1 % 2016 %Hba1C Vsp820 Gluc Ave 272 mg/dL 2016 C-Reactive Protein Qnt Crqnt CRP 4.7 mg/dl 2016 Comp Metabolic Jwp615 NA 136 mEq/L 2016 Comp Metabolic Ufy501 K 4.1 mEq/L 2016 Comp Metabolic Pnc451 CL 96 mEq/L 2016 Comp Metabolic Jko618 CO2 29.0 mEq/L 2016 Comp Metabolic Rrp377 ANION GAP 15 2016 Comp Metabolic Sqv917 GLUCOSE 291 mg/dL 2016 Comp Metabolic Onj165 Creat 0.4 mg/dL 2016 Comp Metabolic Yzv039 eGFR 165 ml/min/1.73m2 2016 Comp Metabolic Bqm454 BUN 11 mg/dL 2016 Comp Metabolic Qvc124 B/C Ratio 25.0 Ratio 2016 Comp Metabolic Syt962 CALCIUM 9.4 mg/dL 2016 Comp Metabolic Gol655 ALK PHOS 111 U/L 2016 Comp Metabolic Khn080 AST(SGOT) 46 U/L 2016 Comp Metabolic Rbw503 ALT(SGPT) 60 U/L 2016 Comp Metabolic Pwa724 BILI T 0.4 mg/dL 2016 Comp Metabolic Mff518 ALBUMIN 4.0 g/dL 2016 Comp Metabolic Vna433 TPRO 6.5 g/dL 2016 Comp Metabolic Cdk433 GLOB 2.6 g/dL 2016 Comp Metabolic Ovm638 A/G Ratio 1.5 Ratio 2016 Comp Metabolic Ozc416 Osmo 282 mOsmo 2016 Cbc With Differential [...] 30.5 pg 2016 Cbc With Differential Ord2 Gila% 4.7 % 2016 Cbc With Differential Ord2 [...] 3.53 K/ul 2016 Cbc With Differential Ord2 Gila ABS# 0.7 K/ul 2016 Cbc With Differential Ord2 Eos ABS# 0.2 K/ul 2016 Cbc With Differential Ord2 Baso ABS# 0.1 K/ul 2016 Lipid Ord30 CHOL 228 mg/dL 05/05/2016 Lipid Ord30 HDL 42.0 mg/dl 05/05/2016 Lipid Ord30 TRIG 168 mg/dL 05/05/2016 Lipid Ord30 LDL 152 mg/dL 05/05/2016 Lipid Ord30 C/HDL 5.4 Ratio 05/05/2016 Comp Metabolic Yhh883 NA 135 mEq/L 05/05/2016 Comp Metabolic Yps252 K 4.1 mEq/L 05/05/2016 Comp Metabolic Ynu230 CL 99 mEq/L 05/05/2016 Comp Metabolic Zrz635 CO2 29.0 mEq/L 05/05/2016 Comp Metabolic Opj220 ANION GAP 11 05/05/2016 Comp Metabolic Qfg480 GLUCOSE 229 mg/dL 05/05/2016 Comp Metabolic Xhp696 Creat 0.5 mg/dL 05/05/2016 Comp Metabolic Xtn179 eGFR 150 ml/min/1.73m2 05/05/2016 Comp Metabolic Ibh990 BUN 14 mg/dL 05/05/2016 Comp Metabolic Gps833 B/C Ratio 29.2 Ratio 05/05/2016 Comp Metabolic Eub925 CALCIUM 9.1 mg/dL 05/05/2016 Comp Metabolic Ckd090 ALK PHOS 112 U/L 05/05/2016 Comp Metabolic Iiy365 AST(SGOT) 59 U/L 05/05/2016 Comp Metabolic Ebx874 ALT(SGPT) 63 U/L 05/05/2016 Comp Metabolic Hvt825 BILI T 0.7 mg/dL 05/05/2016 Comp Metabolic Gye974 ALBUMIN 3.8 g/dL 05/05/2016 Comp Metabolic Xup375 TPRO 6.5 g/dL 05/05/2016 Comp Metabolic Wtf239 GLOB 2.7 g/dL 05/05/2016 Comp Metabolic Xrv148 A/G Ratio 1.4 Ratio 05/05/2016 Comp Metabolic Cvp252 Osmo 278 mOsmo 05/05/2016 Cbc With Differential [...] 91.3 fl 05/05/2016 Cbc With Differential Ord2 Gila% 4.4 % 05/05/2016 Cbc With Differential Ord2 [...] 3.59 K/ul 05/05/2016 Cbc With Differential Ord2 Gila ABS# 0.7 K/ul 05/05/2016 Cbc With Differential Ord2 Eos ABS# 0.1 K/ul 05/05/2016 Cbc With Differential Ord2 Baso ABS# 0.1 K/ul 05/05/2016 %Hba1C Bgg025 % HbA1c 04436- 6 10.4 % 05/05/2016 %Hba1C Que300 Gluc Ave 252 mg/dL 05/05/2016 Hcg Beta Subunit Qual Serum 221963 B-HCG QUALITATIVE NEGATIVE 12/27/2015 GC/CHL PRB 1969600 Chl trach DNA Negative 12/25/2015 GC/CHL PRB 4545357 GC PROBE Negative 12/25/2015 Comp. Metabolic Panel (14) 96698 GLUCOSE 136 mg/dL 12/17/2015 Comp. Metabolic Panel (14) 69570 BUN 9 mg/dL 12/17/2015 Comp. Metabolic Panel (14) 22087 CREATININE 0.67 mg/dL 12/17/2015 Comp. Metabolic Panel (14) 80328 SODIUM 136 mmol/L 12/17/2015 Comp. Metabolic Panel (14) 98234 POTASSIUM 4.4 mmol/L 12/17/2015 Comp. Metabolic Panel (14) 53998 CHLORIDE 95 mmol/L 12/17/2015 Comp. Metabolic Panel (14) 87171 CARBON DIOXIDE 28 mmol/L 12/17/2015 Comp. Metabolic Panel (14) 49537 CALCIUM 10.1 mg/dL 12/17/2015 Comp. Metabolic Panel (14) 08911 TOTAL PROTEIN 7.0 g/dL 12/17/2015 Comp. Metabolic Panel (14) 10986 ALBUMIN 4.5 g/dL 12/17/2015 Comp. Metabolic Panel (14) 17136 ALKALINE PHOSPHATASE 87 U/L 12/17/2015 Comp. Metabolic Panel (14) 78131 TOTAL BILIRUBIN 0.5 mg/dL 12/17/2015 Comp. Metabolic Panel (14) 47515 SGOT (AST) 38 U/L 12/17/2015 Comp. Metabolic Panel (14) 82227 SGPT (ALT) 41 U/L 12/17/2015 Comp. Metabolic Panel (14) 17908 eGFR (mL/min/1.73m2) >60 12/17/2015 Comp. Metabolic Panel (14) 96583 12/17/2015 Cbc With Differential/Platelet 55140 WBC 16.67 thou/uL 12/17/2015 Cbc With Differential/Platelet 13439 RBC 5.11 mil/uL 12/17/2015 Cbc With Differential/Platelet 01288 HEMOGLOBIN 14.8 g/dL 12/17/2015 Cbc With Differential/Platelet 88465 HEMATOCRIT 48.7 % 12/17/2015 Cbc With Differential/Platelet 72623 MCV 95.4 fL 12/17/2015 Cbc With Differential/Platelet 34342 MCH 29.0 pg 12/17/2015 Cbc With Differential/Platelet 78888 MCHC 30.4 g/dL 12/17/2015 Cbc With Differential/Platelet 50859 RDW-CV 14.6 % 12/17/2015 Cbc With Differential/Platelet 98755 PLATELET COUNT 471 thou/uL 12/17/2015 Cbc With Differential/Platelet 84528 NEUTROPHIL % 71.3 % 12/17/2015 Cbc With Differential/Platelet 72944 LYMPHOCYTE % 22.4 % 12/17/2015 Cbc With Differential/Platelet 17015 MONOCYTE % 4.8 % 12/17/2015 Cbc With Differential/Platelet 10525 EOS % 0.7 % 12/17/2015 Cbc With Differential/Platelet 30579 BASO % 0.7 % 12/17/2015 Cbc With Differential/Platelet 14900 NEUTROPHIL ABS # 11.89 thou/uL 12/17/2015 Cbc With Differential/Platelet 90403 LYMPH ABS # 3.73 thou/uL 12/17/2015 Cbc With Differential/Platelet 49828 MONOCYTE ABS # 0.80 thou/uL 12/17/2015 Cbc With Differential/Platelet 44295 EOS ABS # 0.12 thou/uL 12/17/2015 Cbc With Differential/Platelet 31780 BASO ABS # 0.12 thou/uL 12/17/2015 Comp. [...] Hgb A1C With Eag Estimation GLYCOHEMOGLOBIN A1C 58739-8 8.1 % 11/13/2015 Hgb A1C With Eag Estimation ESTIMATED AVG GLUCOSE 186 mg/dL 11/13/2015 Comp. Metabolic Panel (14) 60353 GLUCOSE 84 mg/dL 09/11/2015 Comp. Metabolic Panel (14) 67465 BUN 11 mg/dL 09/11/2015 Comp. Metabolic Panel (14) 25189 CREATININE 0.56 mg/dL 09/11/2015 Comp. Metabolic Panel (14) 13072 SODIUM 142 mmol/L 09/11/2015 Comp. Metabolic Panel (14) 77171 POTASSIUM 4.3 mmol/L 09/11/2015 Comp. Metabolic Panel (14) 53776 CHLORIDE 98 mmol/L 09/11/2015 Comp. Metabolic Panel (14) 91906 CARBON DIOXIDE 27 mmol/L 09/11/2015 Comp. Metabolic Panel (14) 42024 CALCIUM 10.1 mg/dL 09/11/2015 Comp. Metabolic Panel (14) 94676 TOTAL PROTEIN 7.2 g/dL 09/11/2015 Comp. Metabolic Panel (14) 89141 ALBUMIN 4.7 g/dL 09/11/2015 Comp. Metabolic Panel (14) 98446 ALKALINE PHOSPHATASE 109 U/L 09/11/2015 Comp. Metabolic Panel (14) 32760 TOTAL BILIRUBIN 0.3 mg/dL 09/11/2015 Comp. Metabolic Panel (14) 99151 SGOT (AST) 53 U/L 09/11/2015 Comp. Metabolic Panel (14) 89624 SGPT (ALT) 53 U/L 09/11/2015 Comp. Metabolic Panel (14) 79222 eGFR (mL/min/1.73m2) >60 09/11/2015 Comp. Metabolic Panel (14) 90562 09/11/2015 Comp. Metabolic Panel (14) 38641 GLUCOSE 183 mg/dL 08/11/2015 Comp. Metabolic Panel (14) 38611 BUN 10 mg/dL 08/11/2015 Comp. Metabolic Panel (14) 89527 CREATININE 0.46 mg/dL 08/11/2015 Comp. Metabolic Panel (14) 14787 SODIUM 138 mmol/L 08/11/2015 Comp. Metabolic Panel (14) 75649 POTASSIUM 4.0 mmol/L 08/11/2015 Comp. Metabolic Panel (14) 24693 CHLORIDE 98 mmol/L 08/11/2015 Comp. Metabolic Panel (14) 66094 CARBON DIOXIDE 29 mmol/L 08/11/2015 Comp. Metabolic Panel (14) 29022 CALCIUM 9.4 mg/dL 08/11/2015 Comp. Metabolic Panel (14) 49903 TOTAL PROTEIN 6.8 g/dL 08/11/2015 Comp. Metabolic Panel (14) 73680 ALBUMIN 4.4 g/dL 08/11/2015 Comp. Metabolic Panel (14) 05212 ALKALINE PHOSPHATASE 118 U/L 08/11/2015 Comp. Metabolic Panel (14) 62236 TOTAL BILIRUBIN <0.3 mg/dL 08/11/2015 Comp. Metabolic Panel (14) 17424 SGOT (AST) 41 U/L 08/11/2015 Comp. Metabolic Panel (14) 81055 SGPT (ALT) 55 U/L 08/11/2015 Comp. Metabolic Panel (14) 42545 eGFR (mL/min/1.73m2) >60 08/11/2015 Comp. Metabolic Panel (14) 68387 08/11/2015 Cbc With Differential/Platelet 74752 WBC 11.76 thou/uL 08/11/2015 Cbc With Differential/Platelet 37097 RBC 4.98 mil/uL 08/11/2015 Cbc With Differential/Platelet 90888 HEMOGLOBIN 14.2 g/dL 08/11/2015 Cbc With Differential/Platelet 08149 HEMATOCRIT 46.7 % 08/11/2015 Cbc With Differential/Platelet 02623 MCV 93.8 fL 08/11/2015 Cbc With Differential/Platelet 56081 MCH 28.5 pg 08/11/2015 Cbc With Differential/Platelet 30406 MCHC 30.4 g/dL 08/11/2015 Cbc With Differential/Platelet 70901 RDW-CV 14.3 % 08/11/2015 Cbc With Differential/Platelet 06422 PLATELET COUNT 382 thou/uL 08/11/2015 Cbc With Differential/Platelet 59220 NEUTROPHIL % 67.3 % 08/11/2015 Cbc With Differential/Platelet 77888 LYMPHOCYTE % 24.0 % 08/11/2015 Cbc With Differential/Platelet 98719 MONOCYTE % 6.0 % 08/11/2015 Cbc With Differential/Platelet 45553 EOS % 1.6 % 08/11/2015 Cbc With Differential/Platelet 93987 BASO % 1.0 % 08/11/2015 Cbc With Differential/Platelet 10157 NEUTROPHIL ABS # 7.91 thou/uL 08/11/2015 Cbc With Differential/Platelet 33297 LYMPH ABS # 2.82 thou/uL 08/11/2015 Cbc With Differential/Platelet 33189 MONOCYTE ABS # 0.71 thou/uL 08/11/2015 Cbc With Differential/Platelet 45815 EOS ABS # 0.19 thou/uL 08/11/2015 Cbc With Differential/Platelet 55637 BASO ABS # 0.12 thou/uL 08/11/2015 Tsh 290386 TSH 3.220 uIU/mL 08/11/2015 Lipid Panel 55498 CHOLESTEROL 193 mg/dL 08/11/2015 Lipid Panel 83303 TRIGLYCERIDES 192 mg/dL 08/11/2015 Lipid Panel 92130 HDL 38 mg/dL 08/11/2015 Lipid Panel 93275 CHOLESTEROL/HDL 5.08 08/11/2015 Lipid Panel 21508 LDL (CALCULATED) 117 mg/dL 08/11/2015 Lipid Panel 07174 LDL/HDL 3.08 08/11/2015 Lipid Panel 79167 PHENOTYPE TYPE IV BORDERLINE 08/11/2015 Review of Systems System Result Effective Dates Constitutional recent illness 10/30/2016 Constitutional No chills [...] Effective Dates Notes Full Exam - General 1995 Constitutional general appearance Overall: well developed 10/30/2016 [...] Procedure Codes Date THER/PROPH/DIAG INJ SC/IM CPT-4: 79130Tvupnbx 04/13/2016 Pneumococcal Polysaccharide Vaccine, 23-Valent, Ad CPT-4: 22694Qvbtvid 04/13/2016 INJECT TRIGGER POINTS 3/> CPT-4: 82576Idjudmg 04/06/2016 TRIAMCINOLONE ACET INJ NOS CPT-4: U8950Kbzagjm 04/06/2016 IMMUNIZATION ADMIN CPT-4: 16303Dtthdqg 03/30/2016 IIV4 FLU VACC NO PRESERV ID SNOMED CT: [id number] CPT-4: 03837Ggqnrio 03/30/2016 TRIAMCINOLONE ACET INJ NOS CPT-4: N7954Hesxwwo 02/28/2016 THER/PROPH/DIAG INJ SC/IM CPT-4: 87127Ysskzdc 02/28/2016 TRIAMCINOLONE ACET INJ NOS CPT-4: R1783Luwcqjz 08/20/2015 Vital Signs Date Vital 10/30/2016 Blood Pressure 1: 124/78 Code: 8480-6 BMI: 49.1 Code: 28781-4 Heart Rate 1: 90 bpm Height: 4'11" SpO2: 97% Weight: 243 lbs 10/09/2016 Blood Pressure 1: 124/80 Code: 8480-6 BMI: 49.3 Code: 69520-8 Heart Rate 1: 91 bpm Height: 4'11" SpO2: 98% Weight: 244 lbs 09/12/2016 Blood Pressure 1: 128/80 Code: 8480-6 BMI: 49.1 Code: 60694-9 Heart Rate 1: 94 bpm Height: 4'11" SpO2: 95% Weight: 243 lbs 09/05/2016 Blood Pressure 1: 118/74 Code: 8480-6 BMI: 49.1 Code: 45477-7 Heart Rate 1: 100 bpm Height: 4'11" SpO2: 97% Weight: 243 lbs 06/16/2016 Blood Pressure 1: 120/62 Code: 8480-6 BMI: 49.1 Code: 71342-5 Heart Rate 1: 100 bpm Height: 4'11" SpO2: 96% Temperature: 36.7 (C) / 98.0 (F) Weight: 243 lbs 06/13/2016 Blood Pressure 1: 120/70 Code: 8480-6 Heart Rate 1: 117 bpm SpO2: 97% 05/19/2016 Blood Pressure 1: 130/64 Code: 8480-6 BMI: 49.1 Code: 92948-7 Heart Rate 1: 101 bpm Height: 4'11" SpO2: 96% Weight: 243 lbs 05/08/2016 Blood Pressure 1: 128/76 Code: 8480-6 Heart Rate 1: 119 bpm Height: SpO2: 97% Weight: 05/05/2016 Blood Pressure 1: 124/76 Code: 8480-6 BMI: 49.1 Code: 32599-1 Heart Rate 1: 75 bpm Height: 4'11" SpO2: 99% Weight: 243 lbs 04/10/2016 Blood Pressure 1: 140/80 Code: 8480-6 BMI: 49.7 Code: 15190-8 Heart Rate 1: 88 bpm Height: 4'11" SpO2: 95% Weight: 246 lbs 04/06/2016 Blood Pressure 1: 134/82 Code: 8480-6 BMI: 75.1 Code: 29090-6 Heart Rate 1: 72 bpm Height: 4' SpO2: 96% Weight: 246 lbs 03/08/2016 Blood Pressure 1: 126/72 Code: 8480-6 BMI: 49.7 Code: 22552-8 Heart Rate 1: 89 bpm Height: 4'11" SpO2: 97% Weight: 246 lbs 02/28/2016 Blood Pressure 1: 124/68 Code: 8480-6 BMI: 49.7 Code: 73687-6 Heart Rate 1: 89 bpm Height: 4'11" SpO2: 96% Weight: 246 lbs 01/18/2016 Blood Pressure 1: 142/78 Code: 8480-6 BMI: 48.9 Code: 93270-7 Heart Rate 1: 97 bpm Height: 4'11" SpO2: 97% Weight: 242 lbs 12/23/2015 Blood Pressure 1: 124/74 Code: 8480-6 BMI: 48.9 Code: 68815-0 Heart Rate 1: 106 bpm Height: 4'11" SpO2: 96% Weight: 242 lbs 12/16/2015 Blood Pressure 1: 116/82 Code: 8480-6 BMI: 48.3 Code: 19001-1 Heart Rate 1: 111 bpm Height: 4'11" SpO2: 97% Weight: 239 lbs 11/11/2015 Blood Pressure 1: 130/80 Code: 8480-6 BMI: 49.7 Code: 16856-0 Heart Rate 1: 105 bpm Height: 4'11" SpO2: 96% Weight: 246 lbs 10/27/2015 Blood Pressure 1: 122/70 Code: 8480-6 BMI: 49.5 Code: 14829-5 Heart Rate 1: 107 bpm Height: 4'11" SpO2: 96% Weight: 245 lbs 10/13/2015 Blood Pressure 1: 140/82 Code: 8480-6 BMI: 50.9 Code: 97134-0 Heart Rate 1: 111 bpm Height: 4'11" SpO2: 96% Weight: 252 lbs 10/05/2015 Blood Pressure 1: 118/70 Code: 8480-6 BMI: 51.1 Code: 78251-2 Heart Rate 1: 120 bpm Height: 4'11" SpO2: 97% Weight: 253 lbs 09/01/2015 Blood Pressure 1: 132/82 Code: 8480-6 BMI: 50.1 Code: 31836-2 Heart Rate 1: 110 bpm Height: 4'11" SpO2: 96% Weight: 248 lbs 08/20/2015 Blood Pressure 1: 132/78 Code: 8480-6 BMI: 51.7 Code: 77868-0 Heart Rate 1: 100 bpm Height: 4'11" Weight: 256 lbs 08/03/2015 Blood Pressure 1: 148/92 Code: 8480-6 BMI: 52.1 Code: 70420-3 Heart Rate 1: 100 bpm Height: 4'11" SpO2: 97% Weight: 258 lbs Functional Status No Functional Status data History of Present Illness Symptom Name Status Result Effective Date Notes vaginal discharge Quality white 10/30/2016 None vaginal [...] Performer Location Codes Date EST. PATIENT, LEVEL IV Diagnosis: Candidiasis of vulva and vagina[ICD10: B37.3] Diagnosis: Type 2 diabetes mellitus with hyperglycemia[ICD10: E11.65] [facility] CPT-4: 17634 10/30/2016 93276 EST. PATIENT, LEVEL III Diagnosis: Candidiasis of vulva and vagina[ICD10: B37.3] Diagnosis: Type 2 diabetes mellitus with hyperglycemia[ICD10: E11.65] [facility] CPT-4: 21463 10/09/2016 87925 EST. PATIENT, LEVEL IV Diagnosis: Umbilical hernia without obstruction or gangrene[ICD10: K42.9] Gloria Hess MD, [facility] CPT-4: 95692 09/12/2016 04526 EST. PATIENT, LEVEL III Diagnosis: Epigastric pain[ICD10: R10.13] Diagnosis: Candidiasis of vulva and vagina[ICD10: B37.3] Diagnosis: Type 2 diabetes mellitus with hyperglycemia[ICD10: E11.65] [facility] Hess MD, [facility] CPT-4: 75225 09/05/2016 12290 EST. PATIENT, LEVEL III Diagnosis: Acute laryngopharyngitis[ICD10: J06.0] Diagnosis: Other allergic rhinitis[ICD10: J30.89] [facility] MD, [facility] CPT- 4: 96596 06/16/2016 11892 EST. PATIENT, LEVEL III Diagnosis: Type 2 diabetes mellitus with hyperglycemia[ICD10: E11.65] Diagnosis: Other obesity due to excess calories[ICD10: E66.09] [facility] MD, [facility] CPT-4: 08463 06/13/2016 83308 EST. PATIENT, LEVEL III Diagnosis: Type 2 diabetes mellitus with hyperglycemia[ICD10: E11.65] Diagnosis: Other obesity due to excess calories[ICD10: E66.09] [facility] MD, [facility] CPT-4: 27244 05/19/2016 17197 EST. PATIENT, LEVEL III Diagnosis: Type 2 diabetes mellitus with hyperglycemia[ICD10: E11.65] Diagnosis: Other obesity due to excess calories[ICD10: E66.09] [facility] MD, [facility] CPT-4: 76451 05/08/2016 36060 EST. PATIENT, LEVEL III Diagnosis: Type 2 diabetes mellitus without complications[ICD10: E11.9] [facility] MD, [facility] CPT-4: 71228 05/05/2016 03595 EST. PATIENT, LEVEL III Diagnosis: Pain in right shoulder[ICD10: M25.511] [facility] MD, [facility] CPT- 4: 38736 04/10/2016 97365 EST. PATIENT, LEVEL III Diagnosis: Pain in right shoulder[ICD10: M25.511] Diagnosis: Other muscle spasm[ICD10: M62.838] Diagnosis: Type 2 diabetes mellitus without complications[ICD10: E11.9] Gloria Hess MD [facility] CPT-4: 27987 04/06/2016 54769 EST. PATIENT, LEVEL IV Diagnosis: Acute bronchitis due to other specified organisms[ICD10: J20.8] Diagnosis: Other acute sinusitis[ICD10: J01.80] Diagnosis: Acne vulgaris[ICD10: L70.0] Diagnosis: Morbid (severe) obesity due to excess calories[ICD10: E66.01] Gloria [facility] MD [facility] CPT-4: 26316 03/08/2016 77701 EST. PATIENT, LEVEL IV Diagnosis: Other acute sinusitis[ICD10: J01.80] Diagnosis: Localized enlarged lymph nodes[ICD10: R59.0] Gloria [facility] MD [facility] CPT-4: 77513 02/28/2016 93098 EST. PATIENT, LEVEL III Diagnosis: Type 2 diabetes mellitus without complications[ICD10: E11.9] Gloria Hess MD [facility] CPT-4: 11270 01/18/2016 (83571) PREV VISIT EST AGE 40-64 Diagnosis: Encounter for gynecological examination (general) (routine) without abnormal findings[ICD10: Z01.419] Diagnosis: Excessive and frequent menstruation with irregular cycle[ICD10: N92.1] Gloria Hess MD, [facility] CPT-4: 70032 12/23/2015 23286 EST. PATIENT, LEVEL III Diagnosis: Type 2 diabetes mellitus without complications[ICD10: E11.9] Gloria Hess MD [facility] CPT-4: 78515 12/16/2015 71065 EST. PATIENT, LEVEL III Diagnosis: Type 2 diabetes mellitus without complications[ICD10: E11.9] Diagnosis: Other obesity due to excess calories[ICD10: E66.09] Gloria [facility] MD [facility] CPT-4: 93004 11/11/2015 85318 EST. PATIENT, LEVEL III Diagnosis: Type 2 diabetes mellitus without complications[ICD10: E11.9] Diagnosis: Other obesity due to excess calories[ICD10: E66.09] Gloria Hess MD [facility] CPT-4: 73810 10/27/2015 16856 EST. PATIENT, LEVEL III Diagnosis: Type 2 diabetes mellitus without complications[ICD10: E11.9] Diagnosis: Other obesity due to excess calories[ICD10: E66.09] Diagnosis: Other insomnia[ICD10: G47.09] Gloria Hess MD, [facility] CPT-4: 01670 10/13/2015 04949 EST. PATIENT, LEVEL IV Diagnosis: Acute recurrent maxillary sinusitis[ICD10: J01.01] Diagnosis: Allergic rhinitis due to pollen[ICD10: J30.1] Diagnosis: Other obesity due to excess calories[ICD10: E66.09] Gloria Hess MD, [facility] CPT-4: 37669 10/05/2015 31427 EST. PATIENT, LEVEL IV Diagnosis: Polycystic ovarian syndrome[ICD10: E28.2] Diagnosis: Other skin changes[ICD10: R23.8] Diagnosis: Other abnormal glucose[ICD10: R73.09] Gloria Hess MD, [facility] CPT- 4: 76455 09/01/2015 90382 EST. PATIENT, LEVEL IV Diagnosis: Acute recurrent maxillary sinusitis[ICD10: J01.01] Diagnosis: Morbid (severe) obesity due to excess calories[ICD10: E66.01] Diagnosis: Essential (primary) hypertension[ICD10: I10] Diagnosis: Allergic rhinitis due to pollen[ICD10: J30.1] Gloria Hess MD, [facility] CPT-4: 69183 08/20/2015 (04990) OFFICE VISIT, NEW - LEVEL 4 Diagnosis: Essential (primary) hypertension[ICD10: I10] Diagnosis: Obstructive sleep apnea (adult) (pediatric)[ICD10: G47.33] Diagnosis: Other insomnia[ICD10: G47.09] Diagnosis: Snoring[ICD10: R06.83] Diagnosis: Morbid (severe) obesity due to excess calories[ICD10: E66.01] Gloria Hess MD, [facility] CPT-4: 39879 08/03/2015 Plan of Care Planned Activity Notes Codes Status Date Visit Plan: Vaginal candidiasis - will send RX - pt is to notify clinic if symptoms do not improve, if they worsen, or with any questions or concerns. 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 The patient has been instructed to continue with current medications as previously directed, continue with regular FSBS monitoring to assure continued control of diabetes. 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 The patient has been instructed to continue with current medications as previously directed, continue with regular FSBS monitoring to assure continued control of diabetes. Pt to call for any acute concerns, complaints, or if the blood glucose readings are starting to become less controlled.I have recommended for the patient to follow more strictly to the diabetic diet as discussed in clinic to allow for greater blood glucose control. 10/09/2016 [facility]ment[phone] [facility] [place] ([facility] min) Complex 10/09/2016 Patient Education: Patient Medication Summary Completed 10/09/2016 Patient Education: Obesity Completed 10/09/2016 Referral: Roni Roberts Referral Completed 09/18/2016 Care Plan: CT ABD & PELV W/CONTRAST LOINC : 63074-1 Pending 09/13/2016 Care Plan: Referral Order SNOMED-CT : [id number] Pending 09/13/2016 Visit Plan: Ongoing abdominal pain/hernia - will send RX - will refer - pt is to notify clinic if symptoms do not improve, if they worsen, or with any questions or concerns. 09/12/2016 [facility]ment: [phone] [facility] [place] (30 min) Complex 09/12/2016 Patient Education: Patient Medication Summary Completed 09/12/2016 Patient Education: Obesity Completed 09/12/2016 Care Plan: Referral Order SNOMED-CT : [id number] Pending 09/12/2016 Visit Plan: Ongoing abdominal/epigastric pain [...] caffeine, spicy foods, peppermint, and cinnamon - al l of which can exacerbate esophageal reflux.The patient is to take medications as prescribed and call the office if the symptoms are not improving.Vaginal yeast infection - will repeat diflucan - [...] glucose readings are starting to become less controlled.I have recommended for the patient to follow more strictly to the diabetic diet as discussed in clinic to allow for greater blood glucose control. 09/05/2016 App[facility]ment: [facility] [phone] [facility] (30 min) Complex 09/05/2016 Patient Education: Patient Medication Summary Completed 09/05/2016 Visit Plan: URI - Pt advised to increase fluids, vitamin C. Discussed natural and expected course of this diagnosis and need to alert me if symptoms do not follow expected course, or if any worse. RX sent to patient's pharmacy.Allergies - chronic - recommended pt to use allergy medication as prescribed. Pt has been counseled as to the appropriate use of the medication. Pt to call if allergy symptoms are not controlled with the medication.If using nasal spray, instructions as follows: Nasal spray- use twice daily, one spray per nostril twice daily, after 30 minutes, rinse out nose with saline spray.. Use opposite hand per nostril to spray in the nasal steroid allergy spray. 06/16/2016 Appointment: [facility] [phone] [facility] (10 min) Simple 06/16/2016 Patient Education: [...] glucose readings are starting to become less controlled.I have recommended for the patient to follow more strictly to the diabetic diet as discussed in clinic to allow for greater blood glucose control.Obesity - chronic issue with this patient. The pt has been counseled about diet changes, calorie restriction, and need to exercise. Pt will RTC in one month for weight check. 06/13/2016 Appointment: Gloria Scott WPtel: [phone] [facility] (30 min) Complex 06/13/2016 Patient Education: Patient Medication Summary Completed 06/13/2016 Patient Education: Obesity Completed 06/13/2016 Appointment: Gloria Scott WPtel: [phone] [facility] (30 min) Complex 06/08/2016 Visit Plan: Diabetes [...] glucose readings are starting to become less controlled.I have recommended for the patient to follow more strictly to the diabetic diet as discussed in clinic to allow for greater blood glucose control.Obesity - chronic issue with this patient. The pt has been counseled about diet changes, calorie restriction, and need to exercise. Pt will RTC in one month for weight check. 05/19/2016 Appointment: [facility] [phone] [phone] [place] (30 min) Complex 05/19/2016 Patient [...] glucose readings are starting to become less controlled.I have recommended for the patient to follow more strictly to the diabetic diet as discussed in clinic to allow for greater blood glucose control.Obesity - chronic issue with this patient. The pt has been counseled about diet changes, calorie restriction, and need to exercise. Pt will RTC in one month for weight check. 05/08/2016 Appointment: Gloria Scott WPtel: [facility] (15 min) Moderate 05/08/2016 Patient Education: Patient [...] glucose readings are starting to become less controlled.I have recommended for the patient to follow more strictly to the diabetic diet as discussed in clinic to allow for greater blood glucose control.Increase lantus to 25 units at night and 5 units in the morning. 05/05/2016 Appointment: Tamy Lugo WPtel: [facility] [phone] [place] (15 min) Moderate 05/05/2016 Patient Education: Patient Medication Summary Completed 05/05/2016 Patient Education: Obesity Completed 05/05/2016 Care Plan: Comp Metabolic Pending 05/05/2016 Appointment: Jocelyn Hess WPtel: [facility] [place] Surgical Procedure 04/17/2016 Appointment: Injection 04/13/2016 Patient Education: Patient Medication Summary Completed 04/13/2016 Visit Plan: Right shoulder pain - will refer to PT - The pt is to use prn antiinflammatories to manage acute pain. The patient is to call the office if the pain is worsening or does not improve. 04/10/2016 Appointment: [facility] [phone] [facility] (30 min) Complex 04/10/2016 Patient Education: Patient Medication Summary Completed 04/10/2016 Patient Education: Obesity Completed 04/10/2016 Visit Plan: Trigger Points - Injected trigger points today, pt given post-injection instructions, signs and symptoms for which to call the office. Pt to use heat to the muscles today, and take an anti-inflammatory today unless otherwise contraindicated by renal function or other disease process.Diabetes Mellitus - Uncontrolled - per recent FSBS [...] glucose readings are starting to become less controlled.I have recommended for the patient to follow more strictly to the diabetic diet as discussed in clinic to allow for greater blood glucose control. 04/06/2016 Appointment: [facility] [phone] [facility] (15 min) Moderate 04/06/2016 Patient Education: Patient Medication Summary Completed 04/06/2016 Patient Education: Obesity Completed 04/06/2016 Appointment: Injection 03/30/2016 Patient Education: Patient Medication Summary Completed 03/30/2016 Visit Plan: Bronchitis - acute case of bronchitis identified. Pt has been given antibiotics, breathing treatments as appropriate, and pt has been instructed to call if symptoms are not improved, or if symptoms acutely worsen.Sinusitis - Pt has acute infection - pain [...] recommended. Call if symptoms do not show improvement.Allergies - chronic - recommended pt to use allergy medication as prescribed. Pt has been counseled as to the appropriate use of the medication. Pt to call if allergy symptoms are not controlled with the medication.If using nasal spray, instructions as follows: Nasal spray- use twice daily, one spray per nostril twice daily, after 30 minutes, rinse out nose with saline spray.. Use opposite hand per nostril to spray in the nasal steroid allergy spray.Enlarged lymph node in the left arm - pt states it has been that way for the past 3 weeks - tender to palpation - approximately 1 - 1.5 cm to palpation - no skin changes, erythema, or edema noted - will order US 02/28/2016 Appointment: [facility] [phone] [facility] (30 min) Complex 02/28/2016 Patient Education: Patient Medication Summary Completed 02/28/2016 Patient Education: Obesity Completed 02/28/2016 Appointment: [facility] [phone] [facility] (15 min) Moderate 01/31/2016 Visit Plan: [...] glucose readings are starting to become less controlled.I have recommended for the patient to follow [...] prn. 12/23/2015 Appointment: [facility] [phone] [facility] [facility] 12/23/2015 Patient Education: Patient [...] glucose readings are starting to become less controlled.I have recommended for the patient to follow [...] glucose readings are starting to become less controlled.I have recommended for the patient to follow more strictly to the diabetic diet as discussed in clinic to allow for greater blood glucose control.Obesity - chronic issue with this patient. The [...] glucose readings are starting to become less controlled.I have recommended for the patient to follow more strictly to the diabetic diet as discussed in clinic to allow for greater blood glucose control.Obesity - BMI 49 - The pt has [...] glucose readings are starting to become less controlled.I have recommended for the patient to follow more strictly to the diabetic diet as discussed in clinic to allow for greater blood glucose control.Obesity - BMI 49 - The pt has [...] glucose readings are starting to become less controlled.I have recommended for the patient to follow more strictly to the diabetic diet as discussed in clinic to allow for greater blood glucose control.Insomnia - Pt has been advised to increase the light in the house during the day, and start dimming the lights during the evening hours.Pt has been advised to cut out caffeine after 5pm.Daytime napping worsens night time insomnia.Obesity - BMI 50 - The pt has [...] recommended. Call if symptoms do not show improvement.Allergies - chronic - recommended pt to use allergy medication as prescribed. Pt has been counseled as to the appropriate use of the medication. Pt to call if allergy symptoms are not controlled with the medication.If using nasal spray, instructions as follows: Nasal spray- use twice daily, one spray per nostril twice daily, after 30 minutes, rinse out nose with saline spray.. Use opposite hand per nostril to spray in the nasal steroid allergy spray.Hypertension - well controlled - continue with current medications, continue with no added salt diet. Pt has been encouraged to exercise daily.The pt has been advised to call the office if there are any acute concerns about change in blood pressure readings at home.BMI 51 - The pt has been counseled about diet changes, calorie restriction, and need to exercise. Pt will RTC for weight check.Invokamet is causing stomach cramps and diarrhea - [...] recommended. Call if symptoms do not show improvement.Allergies - chronic - recommended pt to use allergy medication as prescribed. Pt has been counseled as to the appropriate use of the medication. Pt to call if allergy symptoms are not controlled with the medication.If using nasal spray, instructions as follows: Nasal spray- use twice daily, one spray per nostril twice daily, after 30 minutes, rinse out nose with saline spray.. Use opposite hand per nostril to spray in the nasal steroid allergy spray.Hypertension - The patient has been counseled to [...] the office next week for practitioner to review.The pt is to call for acute concerns.Obesity - chronic issue with this patient. The [...] THE LAB. [facility] : 46134-2 Pending 08/13/2015 Visit Plan: Hypertension - uncontrolled [...] the office next week for practitioner to review.The pt is to call for acute concerns.Obesity - chronic issue with this patient. The pt has been counseled about diet changes, calorie restriction, and need to exercise. Pt will RTC in one month for weight check.Sleep Apnea - will order sleep study.Edema - pt has been advised to elevate [...] is worsening or does not improve. . 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 . Trigger Points - Injected trigger points [...]
--- OUTSIDE RECORDS SUMMARY | 2018-12-17 02:57 | XMS REPORT | CCD ---
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 Name Role Phone PP Unavailable CCM Unavailable Summary Purpose Interface Exchange Insurance Providers Payer name Policy type / Coverage type Covered democrat ID Effective Begin Date Effective End Date [facility] Commercial Insurance [id number] Unknown Unknown Family history Father Diagnosis Age At Onset Hypertension Unknown Arthritis Unknown Mother Diagnosis Age At Onset Arthritis Unknown Hyperlipidemia Unknown Daughter Diagnosis Age At Onset Asthma Unknown Social History Social History Element Codes Description Effective Dates Marital status Unknown Darin 08/03/2015 Number of children Unknown 1 08/03/[address]: 6476903 Quit less than 5 years ago 08/03/2015 [...] Start Date Stop Date Status Fill Instructions Voltaren 1 % topical gel RxNorm: 251464 APPLY TOPICALLY TO AFFECTED AREA TWICE DAILY 12/25/2016 01/13/2017 Active cyclobenzaprine 10 mg tablet RxNorm: 919606 TAKE ONE TABLET BY MOUTH NEEDED 12/22/2016 12/31/2016 Active lidocaine 5 % topical patch RxNorm: 3883294 USE ONE PATCH TOPICALLY DAILY. 12 HOURS ON AND THEN 12 HOURS OFF. 12/22/2016 12/31/2016 Active hydrocodone 7.5 mg-acetaminophen 325 mg tablet RxNorm: 826244 1 Tablet(s) PO Q4H as needed 12/22/2016 01/20/2017 Active bumetanide 1 mg tablet RxNorm: 291080 TAKE ONE TABLET BY MOUTH TWICE DAILY 12/17/2016 01/15/2017 Active promethazine 25 mg tablet RxNorm: 902647 Tablet(s) TAKE ONE TABLET BY MOUTH EVERY 6 TO 8 HOURS NEEDED 11/16/2016 12/15/2016 Inactive spironolactone 50 mg tablet RxNorm: 397184 TAKE ONE TABLET BY MOUTH TWICE DAILY 11/15/2016 05/13/2017 Active Basaglar KwikPen 100 unit/mL (3 mL) subcutaneous RxNorm: 1543673 Unit(s) INJECT 35 UNITS IN THE MORNING AND 50 UNITS IN THE EVENING SUBCUTANEOUSLY 11/15/2016 03/14/2017 Active cyclobenzaprine 10 mg tablet RxNorm: 116613 TAKE ONE TABLET BY MOUTH NEEDED 11/15/2016 12/04/2016 Inactive lidocaine 5 % topical patch RxNorm: 5185219 1 Patch TOP daily . 12 HOURS ON, 12 HOURS OFF 11/15/2016 12/04/2016 Inactive lidocaine 4 % topical patch RxNorm: 2052839 1 Patch TOP on for 12 hours and off for 12 hours 11/14/2016 11/14/2016 Inactive promethazine 25 mg tablet RxNorm: 155246 TAKE ONE TABLET BY MOUTH EVERY 6 TO 8 HOURS NEEDED 11/14/2016 11/15/2016 Inactive Basaglar KwikPen 100 unit/mL (3 mL) subcutaneous RxNorm: 5090115 INJECT 35 UNITS IN THE MORNING AND 50 UNITS IN THE EVENING SUBCUTANEOUSLY 11/14/2016 11/14/2016 Inactive cyclobenzaprine 10 mg tablet RxNorm: 400209 TAKE ONE TABLET BY MOUTH NEEDED 11/14/2016 11/14/2016 Inactive spironolactone 50 mg tablet RxNorm: 517550 TAKE ONE TABLET BY MOUTH TWICE DAILY 11/14/2016 11/14/2016 Inactive Humalog KwikPen 200 unit/mL (3 mL) subcutaneous RxNorm: 4600758 35 Unit(s) SQ AC 10/30/2016 No Stop Date Active QS 30 day supply Diflucan 150 mg tablet RxNorm: 518781 1 Tablet(s) PO as needed prophylactic after sexual intercourse 10/30/2016 No Stop Date Active hydrocodone 7.5 mg-acetaminophen 325 mg tablet RxNorm: 659979 1 Tablet(s) PO Q4H as needed 10/30/2016 11/28/2016 Inactive clotrimazole 100 mg vaginal tablet RxNorm: 564925 1 Tablet(s) VAG QW 10/30/2016 11/28/2016 Inactive Bydureon 2 mg/0.65 mL subcutaneous pen injector RxNorm: 7341583 2 Milligram(s) SQ QW 10/30/2016 11/28/2016 Inactive Basaglar KwikPen 100 unit/mL (3 mL) subcutaneous RxNorm: 8932599 Unit(s) SQ 35 units in the morning and 50 units in the evening 10/30/2016 11/13/2016 Inactive QS 30 day supply cyclobenzaprine 10 mg tablet RxNorm: 658432 TAKE ONE TABLET BY MOUTH NEEDED 10/27/2016 11/05/2016 Inactive Diflucan 150 mg tablet RxNorm: 008568 1 Tablet(s) PO daily x 7 days then once a week 10/27/2016 10/29/2016 Inactive promethazine 25 mg tablet RxNorm: 898702 TAKE ONE TABLET BY MOUTH EVERY 6 TO 8 HOURS NEEDED 10/27/2016 11/10/2016 Inactive Diflucan 150 mg tablet RxNorm: 034182 1 Tablet(s) PO daily x 7 days then once a week 10/09/2016 10/15/2016 Inactive Diflucan 150 mg tablet RxNorm: 544499 1 Tablet(s) PO daily 09/20/2016 09/26/2016 Inactive Cipro 500 mg tablet RxNorm: 561947 1 Tablet(s) PO BID 09/12/2016 09/21/2016 Inactive Flagyl 500 mg tablet RxNorm: 279854 1 Tablet(s) PO TID 09/12/2016 09/21/2016 Inactive Diflucan 150 mg tablet RxNorm: 179012 1 Tablet(s) PO daily 09/06/2016 09/12/2016 Inactive hydrocodone 7.5 mg-acetaminophen 325 mg tablet RxNorm: 114418 1 Tablet(s) PO Q4H as needed 07/12/2016 08/10/2016 Inactive Xopenex 1.25 mg/3 mL solution for nebulization RxNorm: 089849 3 Milliliter(s) INH TID 06/16/2016 No Stop Date Active cefdinir 300 mg capsule RxNorm: 954168 1 Capsule(s) PO BID 06/16/2016 06/25/2016 Inactive Mobic 7.5 mg tablet RxNorm: 611645 1 Tablet(s) PO daily 06/16/2016 06/25/2016 Inactive Levaquin 500 mg tablet RxNorm: 197074 1 Tablet(s) PO daily 06/16/2016 06/22/2016 Inactive cyclobenzaprine 10 mg tablet RxNorm: 141849 1 Tablet(s) PO PRN as needed 06/14/2016 06/23/2016 Inactive promethazine 25 mg tablet RxNorm: 080349 TAKE ONE TABLET BY MOUTH EVERY 6 TO 8 HOURS NEEDED 06/14/2016 06/28/2016 Inactive Xopenex HFA 45 mcg/actuation aerosol inhaler RxNorm: 299301 1 Puff(s) INH PRN 06/14/2016 07/15/2016 Inactive pen needle, diabetic 32 gauge x 5/16" RxNorm: 1 use Miscellaneous AC & HS 06/13/2016 No Stop Date Active QS 30 day supply Humalog KwikPen 200 unit/mL (3 mL) subcutaneous RxNorm: 3314844 10 Unit(s) SQ AC 06/13/2016 10/29/2016 Inactive QS 30 day supply Basaglar KwikPen 100 unit/mL (3 mL) subcutaneous RxNorm: 7894024 22 units in the morning and 35 in the evening. Unit(s) SQ 06/13/2016 10/29/2016 Inactive QS 30 day supply Tivorbex 20 mg capsule RxNorm: 3981448 1 Capsule(s) PO TID as needed 06/13/2016 06/13/2016 Inactive metoprolol succinate ER 100 mg tablet,extended release 24 hr RxNorm: 692969 TAKE ONE TABLET BY MOUTH ONCE DAILY 06/13/2016 10/10/2016 Inactive hydrocodone 7.5 mg-acetaminophen 325 mg tablet RxNorm: 450556 1 Tablet(s) PO Q4H as needed 06/13/2016 07/11/2016 Inactive Voltaren 1 % topical gel RxNorm: 183341 APPLY TOPICALLY TO AFFECTED AREA TWICE DAILY 05/30/2016 07/08/2016 Inactive alprazolam 0.5 mg tablet RxNorm: 328954 1 Tablet(s) PO Q8 as needed 05/19/2016 No Stop Date Active cyclobenzaprine 10 mg tablet RxNorm: 936028 1 Tablet(s) PO PRN as needed 05/19/2016 05/28/2016 Inactive bumetanide 1 mg tablet RxNorm: 404435 TAKE ONE TABLET BY MOUTH TWICE DAILY 05/19/2016 06/17/2016 Inactive Sprintec (28) 0.25 mg-35 mcg tablet RxNorm: 418538 1 Tablet(s) PO UD 05/08/2016 No Stop Date Active Lantus Solostar 100 unit/mL (3 mL) subcutaneous insulin pen RxNorm: 806385 Unit(s) SQ UD 15units qam 30 units qhs 05/08/2016 No Stop Date Active Humalog KwikPen 200 unit/mL (3 mL) subcutaneous RxNorm: 6308285 10 Unit(s) SQ AC 05/08/2016 06/12/2016 Inactive bumetanide 1 mg tablet RxNorm: 793748 TAKE ONE TABLET BY MOUTH TWICE DAILY 04/28/2016 05/18/2016 Inactive Voltaren 1 % topical gel RxNorm: 607460 1 Application TOP BID 04/28/2016 05/07/2016 Inactive cyclobenzaprine 10 mg tablet RxNorm: 754684 1 Tablet(s) PO PRN as needed 04/28/2016 05/07/2016 Inactive hydrocodone 7.5 mg-acetaminophen 325 mg tablet RxNorm: 395341 1 Tablet(s) PO Q4H as needed 04/18/2016 05/16/2016 Inactive Lantus Solostar 100 unit/mL (3 mL) subcutaneous insulin pen RxNorm: 317441 Unit(s) SQ UD 10 units QHS x5 days, if sugars are over 200 increase to 15 units x 5 days, if sugars over 200 increase to 20 units. 04/14/2016 05/07/2016 Inactive lidocaine 4 % topical patch RxNorm: 0552490 1 Patch TOP on for 12 hours and off for 12 hours 04/13/2016 11/13/2016 Inactive Voltaren 1 % topical gel RxNorm: 189395 1 Application TOP BID 04/10/2016 04/27/2016 Inactive metformin ER 500 mg 24 hr tablet,extended release RxNorm: 252368 1 Tablet(s) PO daily 04/06/2016 05/05/2016 Inactive Kenalog 40 mg/mL suspension for injection RxNorm: 5204340 1 Milliliter(s) Inj 04/06/2016 04/06/2016 Inactive cyclobenzaprine 10 mg tablet RxNorm: 705128 1 Tablet(s) PO PRN as needed 04/06/2016 04/27/2016 Inactive WelChol 3.75 gram oral powder packet RxNorm: 167542 1 packet PO daily 04/06/2016 07/04/2016 Inactive alprazolam 0.5 mg tablet RxNorm: 232186 1 Tablet(s) PO Q8 as needed 03/30/2016 No Stop Date Active Levaquin 500 mg tablet RxNorm: 100380 1 Tablet(s) PO daily 03/30/2016 04/05/2016 Inactive metoprolol succinate ER 100 mg tablet,extended release 24 hr RxNorm: 176301 TAKE ONE TABLET BY MOUTH ONCE DAILY 03/16/2016 06/12/2016 Inactive Levaquin 500 mg tablet RxNorm: 689406 1 Tablet(s) PO daily 03/08/2016 03/14/2016 Inactive prednisone 20 mg tablet RxNorm: 208323 2 Tablet(s) PO daily 03/08/2016 03/12/2016 Inactive Phenergan with Codeine Syrup RxNorm: 5-10 ML PO QID as needed cough 02/28/2016 No Stop Date Active Xopenex HFA 45 mcg/actuation aerosol inhaler RxNorm: 121359 1 Puff(s) INH PRN 02/28/2016 06/13/2016 Inactive Kenalog 40 mg/mL suspension for injection RxNorm: 8711527 1 Milliliter(s) Inj 02/28/2016 02/28/2016 Inactive Zithromax Z-Rashid 250 mg tablet RxNorm: 299039 1 Tablet(s) PO UD 02/28/2016 03/27/2016 Inactive alprazolam 0.5 mg tablet RxNorm: 976724 1 Tablet(s) PO Q8 as needed 02/24/2016 03/21/2016 Inactive glipizide 5 mg tablet RxNorm: 455957 1 Tablet(s) PO daily 01/18/2016 05/16/2016 Inactive Actos 15 mg tablet RxNorm: 326272 1 Tablet(s) PO daily 01/18/2016 02/16/2016 Inactive gabapentin 100 mg capsule RxNorm: 628859 1 Capsule(s) PO QHS 01/13/2016 03/12/2016 Inactive gabapentin 100 mg capsule RxNorm: 863053 1 Capsule(s) PO QHS 01/13/2016 01/12/2016 Inactive Bydureon 2 mg/0.65 mL subcutaneous pen injector RxNorm: 7091072 1 Milliliter(s) SQ QW 01/12/2016 01/11/2016 Inactive Bydureon 2 mg/0.65 mL subcutaneous pen injector RxNorm: 4091327 2/0.65ml Milligram(s) SQ QW 01/12/2016 05/16/2016 Inactive Bydureon 2 mg/0.65 mL subcutaneous pen injector RxNorm: 6015937 1 Milliliter(s) SQ QW 01/12/2016 01/11/2016 Inactive bumetanide 1 mg tablet RxNorm: 072247 TAKE ONE TABLET BY MOUTH TWICE DAILY 01/10/2016 04/08/2016 Inactive promethazine 25 mg tablet RxNorm: 850632 Tablet(s) Tablet(s) 1 Tablet(s) PO Q6-8H as needed 12/16/2015 04/13/2016 Inactive promethazine 25 mg tablet RxNorm: 826750 Tablet(s) 1 Tablet(s) PO Q6-8H as needed 12/10/2015 12/15/2015 Inactive Trulicity 0.75 mg/0.5 mL subcutaneous pen injector RxNorm: 1976571 INJECT ONE-HALF ML SUBCUTANEOUSLY ONCE A WEEK 12/10/2015 01/11/2016 Inactive glipizide 5 mg tablet RxNorm: 003697 1 Tablet(s) PO daily 12/10/2015 01/17/2016 Inactive bumetanide 1 mg tablet RxNorm: 532815 TAKE ONE TABLET BY MOUTH TWICE DAILY 12/10/2015 01/08/2016 Inactive promethazine 25 mg tablet RxNorm: 564901 Tablet(s) 1 Tablet(s) PO Q6-8H as needed 11/18/2015 12/09/2015 Inactive promethazine 25 mg tablet RxNorm: 163987 1 Tablet(s) PO Q6-8H as needed 11/16/2015 11/17/2015 Inactive glipizide 5 mg tablet RxNorm: 856036 1/2 Tablet(s) PO daily 11/16/2015 12/15/2015 Inactive promethazine 25 mg tablet RxNorm: 636190 Tablet(s) 1 Tablet(s) PO Q6-8H as needed 11/11/2015 12/10/2015 Inactive metoprolol tartrate 50 mg tablet RxNorm: 811296 1 Tablet(s) PO BID 11/11/2015 02/08/2016 Inactive Trulicity 0.75 mg/0.5 mL subcutaneous pen injector RxNorm: 2538176 .5 Milliliter(s) SQ QW 11/11/2015 01/11/2016 Inactive promethazine 25 mg tablet RxNorm: 503197 1 Tablet(s) PO Q6-8H as needed 10/28/2015 11/10/2015 Inactive nystatin 100,000 unit/gram topical cream RxNorm: 298352 1 Gram(s) TOP BID 10/27/2015 No Stop Date Active alprazolam 0.5 mg tablet RxNorm: 232804 1 Tablet(s) PO Q8 as needed 10/27/2015 03/29/2016 Inactive hydrocodone 7.5 mg-acetaminophen 325 mg tablet RxNorm: 155850 1 Tablet(s) PO Q4H as needed 10/27/2015 11/25/2015 Inactive Trulicity 0.75 mg/0.5 mL subcutaneous pen injector RxNorm: 0569017 .5 Milliliter(s) SQ QW 10/27/2015 11/10/2015 Inactive glipizide 5 mg tablet RxNorm: 089693 1 Tablet(s) PO daily 10/27/2015 11/25/2015 Inactive hydrocodone 7.5 mg-acetaminophen 325 mg tablet RxNorm: 525679 1 Tablet(s) PO Q4H as needed 10/26/2015 10/26/2015 Inactive alprazolam 0.5 mg tablet RxNorm: 227167 1 Tablet(s) PO PRN as needed 10/26/2015 10/26/2015 Inactive promethazine 25 mg tablet RxNorm: 288174 1 Tablet(s) PO Q6-8H as needed 10/26/2015 11/15/2015 Inactive glipizide 5 mg tablet RxNorm: 184248 1/2 Tablet(s) PO daily 10/13/2015 10/26/2015 Inactive cefdinir 300 mg capsule RxNorm: 168683 1 Capsule(s) PO BID 10/05/2015 10/14/2015 Inactive prednisone 20 mg tablet RxNorm: 591544 2 Tablet(s) PO daily 10/05/2015 10/09/2015 Inactive Diflucan 150 mg tablet RxNorm: 923998 1 Tablet(s) PO daily 10/05/2015 10/11/2015 Inactive Invokamet 50 mg-500 mg tablet RxNorm: 9351217 1 Tablet(s) PO daily 10/05/2015 11/03/2015 Inactive alprazolam 0.5 mg tablet RxNorm: 528058 1 Tablet(s) PO PRN as needed 10/01/2015 02/23/2016 Inactive promethazine 25 mg tablet RxNorm: 992906 1 Tablet(s) PO Q6-8H as needed 09/30/2015 10/25/2015 Inactive bumetanide 1 mg tablet RxNorm: 924664 TAKE ONE TABLET BY MOUTH TWICE DAILY 09/30/2015 10/29/2015 Inactive bumetanide 1 mg tablet RxNorm: 287961 TAKE ONE TABLET BY MOUTH TWICE DAILY 09/20/2015 12/18/2015 Inactive bumetanide 1 mg tablet RxNorm: 753137 1 Tablet(s) PO BID 09/20/2015 10/19/2015 Inactive metoprolol succinate ER 100 mg tablet,extended release 24 hr RxNorm: 784394 1 Tablet(s) PO daily 09/16/2015 03/13/2016 Inactive spironolactone 50 mg tablet RxNorm: 976724 1 Tablet(s) PO BID 09/16/2015 03/13/2016 Inactive alprazolam 0.5 mg tablet RxNorm: 053266 1 Tablet(s) PO PRN as needed 09/16/2015 10/25/2015 Inactive hydrocodone 7.5 mg-acetaminophen 325 mg tablet RxNorm: 877395 1 Tablet(s) PO Q4H as needed 09/16/2015 10/25/2015 Inactive Invokamet 50 mg-1,000 mg tablet RxNorm: 9539759 1 Tablet(s) PO daily 09/06/2015 09/05/2015 Inactive Invokamet 50 mg-1,000 mg tablet RxNorm: 7241964 1 Tablet(s) PO daily 09/06/2015 12/04/2015 Inactive promethazine 25 mg tablet RxNorm: 399745 TAKE ONE TABLET BY MOUTH EVERY 6 TO 8 HOURS NEEDED 09/01/2015 09/16/2015 Inactive promethazine 25 mg tablet RxNorm: 727587 1 Tablet(s) PO Q6-8H as needed 08/27/2015 09/25/2015 Inactive metoprolol succinate ER 100 mg tablet,extended release 24 hr RxNorm: 835570 1 Tablet(s) PO daily 08/20/2015 09/15/2015 Inactive bumetanide 1 mg tablet RxNorm: 227016 1 Tablet(s) PO BID 08/20/2015 09/18/2015 Inactive Bumex 1 mg tablet RxNorm: 881867 1 Tablet(s) PO BID 08/20/2015 11/15/2015 Inactive Kenalog 40 mg/mL suspension for injection RxNorm: 7262374 Milliliter(s) Inj 08/20/2015 08/20/2015 Inactive bumetanide 1 mg tablet RxNorm: 258922 1 Tablet(s) PO BID 08/20/2015 08/19/2015 Inactive Levaquin 500 mg tablet RxNorm: 143913 1 Tablet(s) PO daily 08/20/2015 08/26/2015 Inactive promethazine 25 mg tablet RxNorm: 709319 1 Tablet(s) PO Q6-8H as needed 08/06/2015 08/26/2015 Inactive metformin 500 mg tablet RxNorm: 351622 Tablet(s) PO 500mg in the morning and 1000mg at night No Start Date 09/16/2015 Inactive Lantus Solostar 100 unit/mL (3 mL) subcutaneous insulin pen RxNorm: 600981 Unit(s) SQ UD 10 units QHS x 5 days, if blood sugars are above 200 increase to 15 units x 5 days, if still 200 increase to 20 units. No Start Date 04/13/2016 Inactive alprazolam 0.5 mg tablet RxNorm: 984435 1 Tablet(s) PO PRN as needed No Start Date 09/15/2015 Inactive cyclobenzaprine 10 mg tablet RxNorm: 576444 1 Tablet(s) PO PRN as needed No Start Date 04/05/2016 Inactive lidocaine 4 % topical patch RxNorm: 0374996 1 Patch TOP on for 12 hours and off for 12 hours No Start Date 04/12/2016 Inactive metoprolol tartrate 50 mg tablet RxNorm: 414003 1 Tablet(s) PO BID No Start Date 11/10/2015 Inactive spironolactone 50 mg tablet RxNorm: 958051 1 Tablet(s) PO BID No Start Date 09/15/2015 Inactive hydrocodone 7.5 mg-acetaminophen 325 mg tablet RxNorm: 135034 1 Tablet(s) PO Q4H as needed No Start Date 09/15/2015 Inactive promethazine 25 mg tablet RxNorm: 290495 1 Tablet(s) PO PRN as needed No Start Date 08/05/2015 Inactive Medication Administered Medication Codes Instructions Start Date Status Kenalog 40 mg/mL suspension for injection RxNorm: 0947006 1Milliliter 04/06/2016 No longer Active Kenalog 40 mg/mL suspension for injection RxNorm: 6597840 1Milliliter 02/28/2016 No longer Active Kenalog 40 mg/mL suspension for injection RxNorm: 4674191 Milliliter 08/20/2015 No longer Active Immunizations Vaccine [...] Code Item Item Code Result Date %Hba1C Qzp940 % HbA1c 19620- 6 11.1 % 2016 %Hba1C Npc599 Gluc Ave 272 mg/dL 2016 C-Reactive Protein Qnt Crqnt CRP 4.7 mg/dl 2016 Comp Metabolic Ivu158 NA 136 mEq/L 2016 Comp Metabolic Ypu773 K 4.1 mEq/L 2016 Comp Metabolic Zhm698 CL 96 mEq/L 2016 Comp Metabolic Viq998 CO2 29.0 mEq/L 2016 Comp Metabolic Jyx841 ANION GAP 15 2016 Comp Metabolic Kqp684 GLUCOSE 291 mg/dL 2016 Comp Metabolic Yub772 Creat 0.4 mg/dL 2016 Comp Metabolic Jlc970 eGFR 165 ml/min/1.73m2 2016 Comp Metabolic Ljy525 BUN 11 mg/dL 2016 Comp Metabolic Bgc609 B/C Ratio 25.0 Ratio 2016 Comp Metabolic Cxs858 CALCIUM 9.4 mg/dL 2016 Comp Metabolic Srp541 ALK PHOS 111 U/L 2016 Comp Metabolic Yht233 AST(SGOT) 46 U/L 2016 Comp Metabolic Mjx053 ALT(SGPT) 60 U/L 2016 Comp Metabolic Gqe130 BILI T 0.4 mg/dL 2016 Comp Metabolic Cxt368 ALBUMIN 4.0 g/dL 2016 Comp Metabolic Lhe027 TPRO 6.5 g/dL 2016 Comp Metabolic Qyb021 GLOB 2.6 g/dL 2016 Comp Metabolic Mkj907 A/G Ratio 1.5 Ratio 2016 Comp Metabolic Lqq279 Osmo 282 mOsmo 2016 Cbc With Differential [...] 30.5 pg 2016 Cbc With Differential Ord2 [place]% 4.7 % 2016 Cbc With Differential Ord2 [...] 3.53 K/ul 2016 Cbc With Differential Ord2 [place] ABS# 0.7 K/ul 2016 Cbc With Differential Ord2 Eos ABS# 0.2 K/ul 2016 Cbc With Differential Ord2 Baso ABS# 0.1 K/ul 2016 Lipid Ord30 CHOL 228 mg/dL 05/05/2016 Lipid Ord30 HDL 42.0 mg/dl 05/05/2016 Lipid Ord30 TRIG 168 mg/dL 05/05/2016 Lipid Ord30 LDL 152 mg/dL 05/05/2016 Lipid Ord30 C/HDL 5.4 Ratio 05/05/2016 Comp Metabolic Bzn961 NA 135 mEq/L 05/05/2016 Comp Metabolic Mcc230 K 4.1 mEq/L 05/05/2016 Comp Metabolic Urx355 CL 99 mEq/L 05/05/2016 Comp Metabolic Wga043 CO2 29.0 mEq/L 05/05/2016 Comp Metabolic Nrh515 ANION GAP 11 05/05/2016 Comp Metabolic Xld233 GLUCOSE 229 mg/dL 05/05/2016 Comp Metabolic Dbz229 Creat 0.5 mg/dL 05/05/2016 Comp Metabolic Pqc505 eGFR 150 ml/min/1.73m2 05/05/2016 Comp Metabolic Ntu167 BUN 14 mg/dL 05/05/2016 Comp Metabolic Deo372 B/C Ratio 29.2 Ratio 05/05/2016 Comp Metabolic Vhc862 CALCIUM 9.1 mg/dL 05/05/2016 Comp Metabolic Umt645 ALK PHOS 112 U/L 05/05/2016 Comp Metabolic Ksb947 AST(SGOT) 59 U/L 05/05/2016 Comp Metabolic Mtw440 ALT(SGPT) 63 U/L 05/05/2016 Comp Metabolic Wwh069 BILI T 0.7 mg/dL 05/05/2016 Comp Metabolic Cas521 ALBUMIN 3.8 g/dL 05/05/2016 Comp Metabolic Ska042 TPRO 6.5 g/dL 05/05/2016 Comp Metabolic Nrh117 GLOB 2.7 g/dL 05/05/2016 Comp Metabolic Geh339 A/G Ratio 1.4 Ratio 05/05/2016 Comp Metabolic Ywd243 Osmo 278 mOsmo 05/05/2016 Cbc With Differential [...] 91.3 fl 05/05/2016 Cbc With Differential Ord2 [place]% 4.4 % 05/05/2016 Cbc With Differential Ord2 [...] 3.59 K/ul 05/05/2016 Cbc With Differential Ord2 [place] ABS# 0.7 K/ul 05/05/2016 Cbc With Differential Ord2 Eos ABS# 0.1 K/ul 05/05/2016 Cbc With Differential Ord2 Baso ABS# 0.1 K/ul 05/05/2016 %Hba1C Eox813 % HbA1c 98339- 6 10.4 % 05/05/2016 %Hba1C Die262 Gluc Ave 252 mg/dL 05/05/2016 Hcg Beta Subunit Qual Serum 783157 B-HCG QUALITATIVE NEGATIVE 12/27/2015 GC/CHL PRB 3079733 Chl trach DNA Negative 12/25/2015 GC/CHL PRB 0474238 GC PROBE Negative 12/25/2015 Comp. Metabolic Panel (14) 40828 GLUCOSE 136 mg/dL 12/17/2015 Comp. Metabolic Panel (14) 77243 BUN 9 mg/dL 12/17/2015 Comp. Metabolic Panel (14) 80059 CREATININE 0.67 mg/dL 12/17/2015 Comp. Metabolic Panel (14) 91380 SODIUM 136 mmol/L 12/17/2015 Comp. Metabolic Panel (14) 26949 POTASSIUM 4.4 mmol/L 12/17/2015 Comp. Metabolic Panel (14) 07310 CHLORIDE 95 mmol/L 12/17/2015 Comp. Metabolic Panel (14) 47780 CARBON DIOXIDE 28 mmol/L 12/17/2015 Comp. Metabolic Panel (14) 13100 CALCIUM 10.1 mg/dL 12/17/2015 Comp. Metabolic Panel (14) 99772 TOTAL PROTEIN 7.0 g/dL 12/17/2015 Comp. Metabolic Panel (14) 06312 ALBUMIN 4.5 g/dL 12/17/2015 Comp. Metabolic Panel (14) 91807 ALKALINE PHOSPHATASE 87 U/L 12/17/2015 Comp. Metabolic Panel (14) 18740 TOTAL BILIRUBIN 0.5 mg/dL 12/17/2015 Comp. Metabolic Panel (14) 17709 SGOT (AST) 38 U/L 12/17/2015 Comp. Metabolic Panel (14) 72141 SGPT (ALT) 41 U/L 12/17/2015 Comp. Metabolic Panel (14) 15808 eGFR (mL/min/1.73m2) >60 12/17/2015 Comp. Metabolic Panel (14) 46760 12/17/2015 Cbc With Differential/Platelet 67652 WBC 16.67 thou/uL 12/17/2015 Cbc With Differential/Platelet 88246 RBC 5.11 mil/uL 12/17/2015 Cbc With Differential/Platelet 38454 HEMOGLOBIN 14.8 g/dL 12/17/2015 Cbc With Differential/Platelet 85045 HEMATOCRIT 48.7 % 12/17/2015 Cbc With Differential/Platelet 65562 MCV 95.4 fL 12/17/2015 Cbc With Differential/Platelet 61364 MCH 29.0 pg 12/17/2015 Cbc With Differential/Platelet 38980 MCHC 30.4 g/dL 12/17/2015 Cbc With Differential/Platelet 84544 RDW-CV 14.6 % 12/17/2015 Cbc With Differential/Platelet 52491 PLATELET COUNT 471 thou/uL 12/17/2015 Cbc With Differential/Platelet 51995 NEUTROPHIL % 71.3 % 12/17/2015 Cbc With Differential/Platelet 82089 LYMPHOCYTE % 22.4 % 12/17/2015 Cbc With Differential/Platelet 31923 MONOCYTE % 4.8 % 12/17/2015 Cbc With Differential/Platelet 42976 EOS % 0.7 % 12/17/2015 Cbc With Differential/Platelet 07340 BASO % 0.7 % 12/17/2015 Cbc With Differential/Platelet 62117 NEUTROPHIL ABS # 11.89 thou/uL 12/17/2015 Cbc With Differential/Platelet 60826 LYMPH ABS # 3.73 thou/uL 12/17/2015 Cbc With Differential/Platelet 03029 MONOCYTE ABS # 0.80 thou/uL 12/17/2015 Cbc With Differential/Platelet 92474 EOS ABS # 0.12 thou/uL 12/17/2015 Cbc With Differential/Platelet 23956 BASO ABS # 0.12 thou/uL 12/17/2015 Comp. [...] Hgb A1C With Eag Estimation GLYCOHEMOGLOBIN A1C 08356-2 8.1 % 11/13/2015 Hgb A1C With Eag Estimation ESTIMATED AVG GLUCOSE 186 mg/dL 11/13/2015 Comp. Metabolic Panel (14) 09520 GLUCOSE 84 mg/dL 09/11/2015 Comp. Metabolic Panel (14) 05557 BUN 11 mg/dL 09/11/2015 Comp. Metabolic Panel (14) 00616 CREATININE 0.56 mg/dL 09/11/2015 Comp. Metabolic Panel (14) 78639 SODIUM 142 mmol/L 09/11/2015 Comp. Metabolic Panel (14) 55213 POTASSIUM 4.3 mmol/L 09/11/2015 Comp. Metabolic Panel (14) 47284 CHLORIDE 98 mmol/L 09/11/2015 Comp. Metabolic Panel (14) 90421 CARBON DIOXIDE 27 mmol/L 09/11/2015 Comp. Metabolic Panel (14) 52740 CALCIUM 10.1 mg/dL 09/11/2015 Comp. Metabolic Panel (14) 17260 TOTAL PROTEIN 7.2 g/dL 09/11/2015 Comp. Metabolic Panel (14) 81602 ALBUMIN 4.7 g/dL 09/11/2015 Comp. Metabolic Panel (14) 00653 ALKALINE PHOSPHATASE 109 U/L 09/11/2015 Comp. Metabolic Panel (14) 26240 TOTAL BILIRUBIN 0.3 mg/dL 09/11/2015 Comp. Metabolic Panel (14) 21075 SGOT (AST) 53 U/L 09/11/2015 Comp. Metabolic Panel (14) 32368 SGPT (ALT) 53 U/L 09/11/2015 Comp. Metabolic Panel (14) 30239 eGFR (mL/min/1.73m2) >60 09/11/2015 Comp. Metabolic Panel (14) 09438 09/11/2015 Comp. Metabolic Panel (14) 04866 GLUCOSE 183 mg/dL 08/11/2015 Comp. Metabolic Panel (14) 93947 BUN 10 mg/dL 08/11/2015 Comp. Metabolic Panel (14) 14570 CREATININE 0.46 mg/dL 08/11/2015 Comp. Metabolic Panel (14) 05822 SODIUM 138 mmol/L 08/11/2015 Comp. Metabolic Panel (14) 05003 POTASSIUM 4.0 mmol/L 08/11/2015 Comp. Metabolic Panel (14) 32987 CHLORIDE 98 mmol/L 08/11/2015 Comp. Metabolic Panel (14) 34021 CARBON DIOXIDE 29 mmol/L 08/11/2015 Comp. Metabolic Panel (14) 32659 CALCIUM 9.4 mg/dL 08/11/2015 Comp. Metabolic Panel (14) 98521 TOTAL PROTEIN 6.8 g/dL 08/11/2015 Comp. Metabolic Panel (14) 02580 ALBUMIN 4.4 g/dL 08/11/2015 Comp. Metabolic Panel (14) 39535 ALKALINE PHOSPHATASE 118 U/L 08/11/2015 Comp. Metabolic Panel (14) 50983 TOTAL BILIRUBIN <0.3 mg/dL 08/11/2015 Comp. Metabolic Panel (14) 35721 SGOT (AST) 41 U/L 08/11/2015 Comp. Metabolic Panel (14) 97889 SGPT (ALT) 55 U/L 08/11/2015 Comp. Metabolic Panel (14) 98276 eGFR (mL/min/1.73m2) >60 08/11/2015 Comp. Metabolic Panel (14) 74064 08/11/2015 Cbc With Differential/Platelet 38513 WBC 11.76 thou/uL 08/11/2015 Cbc With Differential/Platelet 72716 RBC 4.98 mil/uL 08/11/2015 Cbc With Differential/Platelet 95159 HEMOGLOBIN 14.2 g/dL 08/11/2015 Cbc With Differential/Platelet 49114 HEMATOCRIT 46.7 % 08/11/2015 Cbc With Differential/Platelet 69141 MCV 93.8 fL 08/11/2015 Cbc With Differential/Platelet 43576 MCH 28.5 pg 08/11/2015 Cbc With Differential/Platelet 89204 MCHC 30.4 g/dL 08/11/2015 Cbc With Differential/Platelet 70824 RDW-CV 14.3 % 08/11/2015 Cbc With Differential/Platelet 34198 PLATELET COUNT 382 thou/uL 08/11/2015 Cbc With Differential/Platelet 60695 NEUTROPHIL % 67.3 % 08/11/2015 Cbc With Differential/Platelet 92740 LYMPHOCYTE % 24.0 % 08/11/2015 Cbc With Differential/Platelet 77116 MONOCYTE % 6.0 % 08/11/2015 Cbc With Differential/Platelet 50363 EOS % 1.6 % 08/11/2015 Cbc With Differential/Platelet 02047 BASO % 1.0 % 08/11/2015 Cbc With Differential/Platelet 44657 NEUTROPHIL ABS # 7.91 thou/uL 08/11/2015 Cbc With Differential/Platelet 37091 LYMPH ABS # 2.82 thou/uL 08/11/2015 Cbc With Differential/Platelet 11060 MONOCYTE ABS # 0.71 thou/uL 08/11/2015 Cbc With Differential/Platelet 43830 EOS ABS # 0.19 thou/uL 08/11/2015 Cbc With Differential/Platelet 30088 BASO ABS # 0.12 thou/uL 08/11/2015 Tsh 238700 TSH 3.220 uIU/mL 08/11/2015 Lipid Panel 36021 CHOLESTEROL 193 mg/dL 08/11/2015 Lipid Panel 43471 TRIGLYCERIDES 192 mg/dL 08/11/2015 Lipid Panel 37669 HDL 38 mg/dL 08/11/2015 Lipid Panel 18007 CHOLESTEROL/HDL 5.08 08/11/2015 Lipid Panel 66505 LDL (CALCULATED) 117 mg/dL 08/11/2015 Lipid Panel 27251 LDL/HDL 3.08 08/11/2015 Lipid Panel 04447 PHENOTYPE TYPE IV BORDERLINE 08/11/2015 Review of [...] Procedure Codes Date THER/PROPH/DIAG INJ SC/IM CPT-4: 21783Wnpppfa 04/13/2016 Pneumococcal Polysaccharide Vaccine, 23-Valent, Ad CPT-4: 97254Bayeibc 04/13/2016 INJECT TRIGGER POINTS 3/> CPT-4: 69511Kbizudg 04/06/2016 TRIAMCINOLONE ACET INJ NOS CPT-4: R6082Yeydozf 04/06/2016 IMMUNIZATION ADMIN CPT-4: 40493Kdrruli 03/30/2016 IIV4 FLU VACC NO PRESERV ID SNOMED CT: [id number] CPT-4: 12376Huamfiy 03/30/2016 TRIAMCINOLONE ACET INJ NOS CPT-4: R7050Utxybpj 02/28/2016 THER/PROPH/DIAG INJ SC/IM CPT-4: 73816Zldbbgu 02/28/2016 TRIAMCINOLONE ACET INJ NOS CPT-4: W0349Erndpwh 08/20/2015 Vital Signs Date Vital 10/30/2016 Blood Pressure 1: 124/78 Code: 8480-6 BMI: 49.1 Code: 73712-8 Heart Rate 1: 90 bpm Height: 4'11" SpO2: 97% Weight: 243 lbs 10/09/2016 Blood Pressure 1: 124/80 Code: 8480-6 BMI: 49.3 Code: 66834-2 Heart Rate 1: 91 bpm Height: 4'11" SpO2: 98% Weight: 244 lbs 09/12/2016 Blood Pressure 1: 128/80 Code: 8480-6 BMI: 49.1 Code: 25469-7 Heart Rate 1: 94 bpm Height: 4'11" SpO2: 95% Weight: 243 lbs 09/05/2016 Blood Pressure 1: 118/74 Code: 8480-6 BMI: 49.1 Code: 48024-8 Heart Rate 1: 100 bpm Height: 4'11" SpO2: 97% Weight: 243 lbs 06/16/2016 Blood Pressure 1: 120/62 Code: 8480-6 BMI: 49.1 Code: 41150-2 Heart Rate 1: 100 bpm Height: 4'11" SpO2: 96% Temperature: 36.7 (C) / 98.0 (F) Weight: 243 lbs 06/13/2016 Blood Pressure 1: 120/70 Code: 8480-6 Heart Rate 1: 117 bpm SpO2: 97% 05/19/2016 Blood Pressure 1: 130/64 Code: 8480-6 BMI: 49.1 Code: 51113-7 Heart Rate 1: 101 bpm Height: 4'11" SpO2: 96% Weight: 243 lbs 05/08/2016 Blood Pressure 1: 128/76 Code: 8480-6 Heart Rate 1: 119 bpm Height: SpO2: 97% Weight: 05/05/2016 Blood Pressure 1: 124/76 Code: 8480-6 BMI: 49.1 Code: 44515-5 Heart Rate 1: 75 bpm Height: 4'11" SpO2: 99% Weight: 243 lbs 04/10/2016 Blood Pressure 1: 140/80 Code: 8480-6 BMI: 49.7 Code: 31412-5 Heart Rate 1: 88 bpm Height: 4'11" SpO2: 95% Weight: 246 lbs 04/06/2016 Blood Pressure 1: 134/82 Code: 8480-6 BMI: 75.1 Code: 55804-2 Heart Rate 1: 72 bpm Height: 4' SpO2: 96% Weight: 246 lbs 03/08/2016 Blood Pressure 1: 126/72 Code: 8480-6 BMI: 49.7 Code: 61872-5 Heart Rate 1: 89 bpm Height: 4'11" SpO2: 97% Weight: 246 lbs 02/28/2016 Blood Pressure 1: 124/68 Code: 8480-6 BMI: 49.7 Code: 76622-6 Heart Rate 1: 89 bpm Height: 4'11" SpO2: 96% Weight: 246 lbs 01/18/2016 Blood Pressure 1: 142/78 Code: 8480-6 BMI: 48.9 Code: 28456-7 Heart Rate 1: 97 bpm Height: 4'11" SpO2: 97% Weight: 242 lbs 12/23/2015 Blood Pressure 1: 124/74 Code: 8480-6 BMI: 48.9 Code: 96881-0 Heart Rate 1: 106 bpm Height: 4'11" SpO2: 96% Weight: 242 lbs 12/16/2015 Blood Pressure 1: 116/82 Code: 8480-6 BMI: 48.3 Code: 43617-0 Heart Rate 1: 111 bpm Height: 4'11" SpO2: 97% Weight: 239 lbs 11/11/2015 Blood Pressure 1: 130/80 Code: 8480-6 BMI: 49.7 Code: 04761-7 Heart Rate 1: 105 bpm Height: 4'11" SpO2: 96% Weight: 246 lbs 10/27/2015 Blood Pressure 1: 122/70 Code: 8480-6 BMI: 49.5 Code: 94670-2 Heart Rate 1: 107 bpm Height: 4'11" SpO2: 96% Weight: 245 lbs 10/13/2015 Blood Pressure 1: 140/82 Code: 8480-6 BMI: 50.9 Code: 32463-8 Heart Rate 1: 111 bpm Height: 4'11" SpO2: 96% Weight: 252 lbs 10/05/2015 Blood Pressure 1: 118/70 Code: 8480-6 BMI: 51.1 Code: 25187-7 Heart Rate 1: 120 bpm Height: 4'11" SpO2: 97% Weight: 253 lbs 09/01/2015 Blood Pressure 1: 132/82 Code: 8480-6 BMI: 50.1 Code: 77595-7 Heart Rate 1: 110 bpm Height: 4'11" SpO2: 96% Weight: 248 lbs 08/20/2015 Blood Pressure 1: 132/78 Code: 8480-6 BMI: 51.7 Code: 90831-0 Heart Rate 1: 100 bpm Height: 4'11" Weight: 256 lbs 08/03/2015 Blood Pressure 1: 148/92 Code: 8480-6 BMI: 52.1 Code: 17164-4 Heart Rate 1: 100 bpm Height: 4'11" [...] Gloria Hess MD, [facility] CPT-4: 22219 10/30/2016 44516 EST. PATIENT, LEVEL III Diagnosis: Candidiasis of vulva and vagina[ICD10: B37.3] Diagnosis: Type 2 diabetes mellitus with hyperglycemia[ICD10: E11.65] [facility] CPT-4: 33344 10/09/2016 28499 EST. PATIENT, LEVEL IV Diagnosis: Umbilical hernia without obstruction or gangrene[ICD10: K42.9] Gloria Hess MD, [facility] CPT-4: 85482 09/12/2016 13351 EST. PATIENT, LEVEL III Diagnosis: Epigastric pain[ICD10: R10.13] Diagnosis: Candidiasis of vulva and vagina[ICD10: B37.3] Diagnosis: Type 2 diabetes mellitus with hyperglycemia[ICD10: E11.65] Gloria Hess MD, [facility] CPT-4: 30488 09/05/2016 96637 EST. PATIENT, LEVEL III Diagnosis: Acute laryngopharyngitis[ICD10: J06.0] Diagnosis: Other allergic rhinitis[ICD10: J30.89] Gloria Hess MD, [facility] CPT- 4: 16279 06/16/2016 78376 EST. PATIENT, LEVEL III Diagnosis: Type 2 diabetes mellitus with hyperglycemia[ICD10: E11.65] Diagnosis: Other obesity due to excess calories[ICD10: E66.09] Gloria Hess MD, [facility] CPT-4: 11666 06/13/2016 17105 EST. PATIENT, LEVEL III Diagnosis: Type 2 diabetes mellitus with hyperglycemia[ICD10: E11.65] Diagnosis: Other obesity due to excess calories[ICD10: E66.09] Gloria Hess MD, [facility] CPT-4: 09597 05/19/2016 78274 EST. PATIENT, LEVEL III Diagnosis: Type 2 diabetes mellitus with hyperglycemia[ICD10: E11.65] Diagnosis: Other obesity due to excess calories[ICD10: E66.09] Gloria Hess MD, [facility] CPT-4: 92348 05/08/2016 22508 EST. PATIENT, LEVEL III Diagnosis: Type 2 diabetes mellitus without complications[ICD10: E11.9] Gloria Hess MD, [facility] CPT-4: 69674 05/05/2016 86228 EST. PATIENT, LEVEL III Diagnosis: Pain in right shoulder[ICD10: M25.511] Gloria Hess MD, [facility] CPT- 4: 51310 04/10/2016 63179 EST. PATIENT, LEVEL III Diagnosis: Pain in right shoulder[ICD10: M25.511] Diagnosis: Other muscle spasm[ICD10: M62.838] Diagnosis: Type 2 diabetes mellitus without complications[ICD10: E11.9] Gloria Hess MD, [facility] CPT-4: 31520 04/06/2016 12575 EST. PATIENT, LEVEL IV Diagnosis: Acute bronchitis due to other specified organisms[ICD10: J20.8] Diagnosis: Other acute sinusitis[ICD10: J01.80] Diagnosis: Acne vulgaris[ICD10: L70.0] Diagnosis: Morbid (severe) obesity due to excess calories[ICD10: E66.01] Gloria Hess MD, [facility] CPT-4: 82433 03/08/2016 99902 EST. PATIENT, LEVEL IV Diagnosis: Other acute sinusitis[ICD10: J01.80] Diagnosis: Localized enlarged lymph nodes[ICD10: R59.0] Gloria Hess MD, [facility] CPT-4: 97224 02/28/2016 65648 EST. PATIENT, LEVEL III Diagnosis: Type 2 diabetes mellitus without complications[ICD10: E11.9] Gloria Hess MD, [facility] CPT-4: 39792 01/18/2016 (39600) PREV VISIT EST AGE 40-64 Diagnosis: Encounter for gynecological examination (general) (routine) without abnormal findings[ICD10: Z01.419] Diagnosis: Excessive and frequent menstruation with irregular cycle[ICD10: N92.1] Gloria Hess MD, [facility] CPT-4: 88112 12/23/2015 21791 EST. PATIENT, LEVEL III Diagnosis: Type 2 diabetes mellitus without complications[ICD10: E11.9] Gloria Hess MD, [facility] CPT-4: 49747 12/16/2015 43756 EST. PATIENT, LEVEL III Diagnosis: Type 2 diabetes mellitus without complications[ICD10: E11.9] Diagnosis: Other obesity due to excess calories[ICD10: E66.09] Gloria Hess MD, [facility] CPT-4: 22326 11/11/2015 58104 EST. PATIENT, LEVEL III Diagnosis: Type 2 diabetes mellitus without complications[ICD10: E11.9] Diagnosis: Other obesity due to excess calories[ICD10: E66.09] Gloria Hess MD, [facility] CPT-4: 44833 10/27/2015 04490 EST. PATIENT, LEVEL III Diagnosis: Type 2 diabetes mellitus without complications[ICD10: E11.9] Diagnosis: Other obesity due to excess calories[ICD10: E66.09] Diagnosis: Other insomnia[ICD10: G47.09] Gloria Hess MD, [facility] CPT-4: 27492 10/13/2015 65575 EST. PATIENT, LEVEL IV Diagnosis: Acute recurrent maxillary sinusitis[ICD10: J01.01] Diagnosis: Allergic rhinitis due to pollen[ICD10: J30.1] Diagnosis: Other obesity due to excess calories[ICD10: E66.09] Gloria Hess MD, [facility] CPT-4: 22608 10/05/2015 13842 EST. PATIENT, LEVEL IV Diagnosis: Polycystic ovarian syndrome[ICD10: E28.2] Diagnosis: Other skin changes[ICD10: R23.8] Diagnosis: Other abnormal glucose[ICD10: R73.09] Gloria Hess MD, [facility] CPT- 4: 98226 09/01/2015 88730 EST. PATIENT, LEVEL IV Diagnosis: Acute recurrent maxillary sinusitis[ICD10: J01.01] Diagnosis: Morbid (severe) obesity due to excess calories[ICD10: E66.01] Diagnosis: Essential (primary) hypertension[ICD10: I10] Diagnosis: Allergic rhinitis due to pollen[ICD10: J30.1] Gloria Hess MD, [facility] CPT-4: 28903 08/20/2015 (48063) OFFICE VISIT, NEW - LEVEL 4 Diagnosis: Essential (primary) hypertension[ICD10: I10] Diagnosis: Obstructive sleep apnea (adult) (pediatric)[ICD10: G47.33] Diagnosis: Other insomnia[ICD10: G47.09] Diagnosis: Snoring[ICD10: R06.83] Diagnosis: Morbid (severe) obesity due to excess calories[ICD10: E66.01] Gloria eHss MD, [facility] CPT-4: 68288 08/03/2015 Plan of Care Planned Activity Notes Codes Status Date Visit Plan: Vaginal candidiasis - will send RX - pt is to notify clinic if symptoms do not improve, if they worsen, or with any questions or concerns. Diabetes Mellitus - Uncontrolled - Will refer to marine cargo inspector - I have recommended for the patient [...] Mellitus - Uncontrolled - Will refer to marine cargo inspector - I have recommended for the patient [...] glucose control. 10/09/2016 Appointment: Gloria Scott WPtel: [facility] [place] (30 min) Complex 10/09/2016 Patient Education: Patient Medication Summary Completed 10/09/2016 Patient Education: Obesity Completed 10/09/2016 Referral: Roni Roberts Referral Completed 09/18/2016 Care Plan: CT ABD & PELV W/CONTRAST LOINC : 64622-6 Pending 09/13/2016 Care Plan: Referral Order SNOMED-CT : [id number] Pending 09/13/2016 Visit Plan: Ongoing abdominal pain/hernia - will send RX - will refer - pt is to notify clinic if symptoms do not improve, if they worsen, or with any questions or concerns. 09/12/2016 Appointment: Gloria Scott WPtel: [address] [facility] [place] [address] [place] (30 min) Complex 09/12/2016 Patient Education: Patient Medication Summary Completed 09/12/2016 Patient Education: Obesity Completed 09/12/2016 Care Plan: Referral Order SNOMED-CT : [id number] Pending 09/12/2016 Visit Plan: Ongoing abdominal/epigastric pain [...] control. 09/05/2016 Appointment: Gloria Scott WPtel: [address] [facility] [place] [address] (30 min) Complex 09/05/2016 Patient Education: Patient [...] spray. 06/16/2016 Appointment: Gloria Scott WPtel: [address] [facility] [address] [place] [address] (10 min) Simple 06/16/2016 Patient Education: Patient [...] weight check. 06/13/2016 Appointment: Gloria Scott WPtel: [phone] [facility] [place] (30 min) Complex 06/13/2016 Patient Education: Patient Medication Summary Completed 06/13/2016 Patient Education: Obesity Completed 06/13/2016 Appointment: Gloria Scott WPtel: [phone] [facility] [place] (30 min) Complex 06/08/2016 Visit Plan: [...] check. 05/19/2016 Appointment: Tamy Lugo WPtel: [phone] [facility] [address] [place] (30 min) Complex 05/19/2016 Patient Education: [...] check. 05/08/2016 Appointment: Gloria Scott WPtel: [phone] [facility] (15 min) Moderate 05/08/2016 Patient Education: Patient [...] WPtel: [address] [phone] [place] (15 min) Moderate 05/05/2016 Patient Education: Patient Medication Summary Completed 05/05/2016 Patient Education: Obesity Completed 05/05/2016 Care Plan: Comp Metabolic Pending 05/05/2016 Appointment: Jocelyn Hess WPtel: [phone] [facility] Surgical Procedure 04/17/2016 Appointment: Injection 04/13/2016 Patient Education: Patient Medication Summary Completed 04/13/2016 Visit Plan: Right shoulder pain - will refer to PT - The pt is to use prn antiinflammatories to manage acute pain. The patient is to call the office if the pain is worsening or does not improve. 04/10/2016 Appointment: Gloria Scott WPtel: [phone] [facility] [address] [place] [address] (30 min) Complex 04/10/2016 Patient Education: Patient [...] control. 04/06/2016 Appointment: Gloria Scott WPtel: [address] [facility] [address] (15 min) Moderate 04/06/2016 Patient Education: Patient [...] [place] 02/28/2016 Appointment: Gloria Scott WPtel: [phone] [facility] [address] (30 min) Complex 02/28/2016 Patient Education: Patient Medication Summary Completed 02/28/2016 Patient Education: Obesity Completed 02/28/2016 Appointment: Gloria Scott WPtel: [phone] [facility] [address] (15 min) Moderate 01/31/2016 Visit Plan: Diabetes [...] prn. 12/23/2015 Appointment: Tyler Gloria WPtel: [phone] [facility] [place] [address] Well Woman 12/23/2015 Patient Education: Patient Medication [...] %Hba1C ADD TO BLOOD IN THE LAB. [facility] : 44414-6 Pending 08/13/2015 Visit Plan: Hypertension - uncontrolled [...] Mellitus - Uncontrolled - Will refer to marine cargo inspector - I have recommended for the patient [...] Mellitus - Uncontrolled - Will refer to marine cargo inspector - I have recommended for the patient [...] allow for greater blood glucose control. . PCOS and skin changes - pt [...] noted - will order US . Ongoing abdominal pain/hernia - will send [...] next year, otherwise, RTC yearly or prn. Will check fasting labs, will send for [...] further attempt to reduce peripheral edema. . Well Adult Female - exam completed. [...]
--- OUTSIDE RECORDS SUMMARY | 2018-12-17 03:00 | XMS REPORT | CCD ---
Author Author [facility] Address [address] [place] [address] Phone Care Team Providers Care Facility Attendant Name Role Phone PP Unavailable CCM Unavailable Summary Purpose Interface Exchange Insurance Providers Payer name Policy type / Coverage type Covered republican ID Effective Begin Date Effective End Date [facility] Commercial Insurance [id number] Unknown Unknown Family history Father Diagnosis Age At Onset Hypertension Unknown Arthritis Unknown Mother Diagnosis Age At Onset Arthritis Unknown Hyperlipidemia Unknown Daughter Diagnosis Age At Onset Asthma Unknown Social History Social History Element Codes Description Effective Dates Marital status Unknown Darin 08/03/2015 Number of children Unknown 1 08/03/[address]: 3259416 Quit less than 5 years ago 08/03/2015 [...] Start Date Stop Date Status Fill Instructions cyclobenzaprine 10 mg tablet RxNorm: 795535 TAKE ONE TABLET BY MOUTH NEEDED 12/22/2016 12/31/2016 Active lidocaine 5 % topical patch RxNorm: 8365815 USE ONE PATCH TOPICALLY DAILY. 12 HOURS ON AND THEN 12 HOURS OFF. 12/22/2016 12/31/2016 Active hydrocodone 7.5 mg-acetaminophen 325 mg tablet RxNorm: 926936 1 Tablet(s) PO Q4H as needed 12/22/2016 01/20/2017 Active bumetanide 1 mg tablet RxNorm: 639669 TAKE ONE TABLET BY MOUTH TWICE DAILY 12/17/2016 01/15/2017 Active promethazine 25 mg tablet RxNorm: 868502 Tablet(s) TAKE ONE TABLET BY MOUTH EVERY 6 TO 8 HOURS NEEDED 11/16/2016 12/15/2016 Inactive spironolactone 50 mg tablet RxNorm: 750960 TAKE ONE TABLET BY MOUTH TWICE DAILY 11/15/2016 05/13/2017 Active Basaglar KwikPen 100 unit/mL (3 mL) subcutaneous RxNorm: 2389066 Unit(s) INJECT 35 UNITS IN THE MORNING AND 50 UNITS IN THE EVENING SUBCUTANEOUSLY 11/15/2016 03/14/2017 Active cyclobenzaprine 10 mg tablet RxNorm: 385500 TAKE ONE TABLET BY MOUTH NEEDED 11/15/2016 12/04/2016 Inactive lidocaine 5 % topical patch RxNorm: 6201449 1 Patch TOP daily . 12 HOURS ON, 12 HOURS OFF 11/15/2016 12/04/2016 Inactive lidocaine 4 % topical patch RxNorm: 0091588 1 Patch TOP on for 12 hours and off for 12 hours 11/14/2016 11/14/2016 Inactive promethazine 25 mg tablet RxNorm: 500312 TAKE ONE TABLET BY MOUTH EVERY 6 TO 8 HOURS NEEDED 11/14/2016 11/15/2016 Inactive Basaglar KwikPen 100 unit/mL (3 mL) subcutaneous RxNorm: 2121544 INJECT 35 UNITS IN THE MORNING AND 50 UNITS IN THE EVENING SUBCUTANEOUSLY 11/14/2016 11/14/2016 Inactive cyclobenzaprine 10 mg tablet RxNorm: 256660 TAKE ONE TABLET BY MOUTH NEEDED 11/14/2016 11/14/2016 Inactive spironolactone 50 mg tablet RxNorm: 978968 TAKE ONE TABLET BY MOUTH TWICE DAILY 11/14/2016 11/14/2016 Inactive Humalog KwikPen 200 unit/mL (3 mL) subcutaneous RxNorm: 8048715 35 Unit(s) SQ AC 10/30/2016 No Stop Date Active QS 30 day supply Diflucan 150 mg tablet RxNorm: 795770 1 Tablet(s) PO as needed prophylactic after sexual intercourse 10/30/2016 No Stop Date Active hydrocodone 7.5 mg-acetaminophen 325 mg tablet RxNorm: 783320 1 Tablet(s) PO Q4H as needed 10/30/2016 11/28/2016 Inactive clotrimazole 100 mg vaginal tablet RxNorm: 237829 1 Tablet(s) VAG QW 10/30/2016 11/28/2016 Inactive Bydureon 2 mg/0.65 mL subcutaneous pen injector RxNorm: 1194937 2 Milligram(s) SQ QW 10/30/2016 11/28/2016 Inactive Basaglar KwikPen 100 unit/mL (3 mL) subcutaneous RxNorm: 2932909 Unit(s) SQ 35 units in the morning and 50 units in the evening 10/30/2016 11/13/2016 Inactive QS 30 day supply cyclobenzaprine 10 mg tablet RxNorm: 449840 TAKE ONE TABLET BY MOUTH NEEDED 10/27/2016 11/05/2016 Inactive Diflucan 150 mg tablet RxNorm: 474349 1 Tablet(s) PO daily x 7 days then once a week 10/27/2016 10/29/2016 Inactive promethazine 25 mg tablet RxNorm: 053762 TAKE ONE TABLET BY MOUTH EVERY 6 TO 8 HOURS NEEDED 10/27/2016 11/10/2016 Inactive Diflucan 150 mg tablet RxNorm: 643188 1 Tablet(s) PO daily x 7 days then once a week 10/09/2016 10/15/2016 Inactive Diflucan 150 mg tablet RxNorm: 769518 1 Tablet(s) PO daily 09/20/2016 09/26/2016 Inactive Cipro 500 mg tablet RxNorm: 828033 1 Tablet(s) PO BID 09/12/2016 09/21/2016 Inactive Flagyl 500 mg tablet RxNorm: 925558 1 Tablet(s) PO TID 09/12/2016 09/21/2016 Inactive Diflucan 150 mg tablet RxNorm: 239968 1 Tablet(s) PO daily 09/06/2016 09/12/2016 Inactive hydrocodone 7.5 mg-acetaminophen 325 mg tablet RxNorm: 204327 1 Tablet(s) PO Q4H as needed 07/12/2016 08/10/2016 Inactive Xopenex 1.25 mg/3 mL solution for nebulization RxNorm: 271288 3 Milliliter(s) INH TID 06/16/2016 No Stop Date Active cefdinir 300 mg capsule RxNorm: 249741 1 Capsule(s) PO BID 06/16/2016 06/25/2016 Inactive Mobic 7.5 mg tablet RxNorm: 403290 1 Tablet(s) PO daily 06/16/2016 06/25/2016 Inactive Levaquin 500 mg tablet RxNorm: 852025 1 Tablet(s) PO daily 06/16/2016 06/22/2016 Inactive cyclobenzaprine 10 mg tablet RxNorm: 606763 1 Tablet(s) PO PRN as needed 06/14/2016 06/23/2016 Inactive promethazine 25 mg tablet RxNorm: 084973 TAKE ONE TABLET BY MOUTH EVERY 6 TO 8 HOURS NEEDED 06/14/2016 06/28/2016 Inactive Xopenex HFA 45 mcg/actuation aerosol inhaler RxNorm: 002000 1 Puff(s) INH PRN 06/14/2016 07/15/2016 Inactive pen needle, diabetic 32 gauge x 5/16" RxNorm: 1 use Miscellaneous AC & HS 06/13/2016 No Stop Date Active QS 30 day supply Humalog KwikPen 200 unit/mL (3 mL) subcutaneous RxNorm: 1619800 10 Unit(s) SQ AC 06/13/2016 10/29/2016 Inactive QS 30 day supply Basaglar KwikPen 100 unit/mL (3 mL) subcutaneous RxNorm: 3785495 22 units in the morning and 35 in the evening. Unit(s) SQ 06/13/2016 10/29/2016 Inactive QS 30 day supply Tivorbex 20 mg capsule RxNorm: 9247217 1 Capsule(s) PO TID as needed 06/13/2016 06/13/2016 Inactive metoprolol succinate ER 100 mg tablet,extended release 24 hr RxNorm: 143406 TAKE ONE TABLET BY MOUTH ONCE DAILY 06/13/2016 10/10/2016 Inactive hydrocodone 7.5 mg-acetaminophen 325 mg tablet RxNorm: 694761 1 Tablet(s) PO Q4H as needed 06/13/2016 07/11/2016 Inactive Voltaren 1 % topical gel RxNorm: 812983 APPLY TOPICALLY TO AFFECTED AREA TWICE DAILY 05/30/2016 07/08/2016 Inactive alprazolam 0.5 mg tablet RxNorm: 678355 1 Tablet(s) PO Q8 as needed 05/19/2016 No Stop Date Active cyclobenzaprine 10 mg tablet RxNorm: 111302 1 Tablet(s) PO PRN as needed 05/19/2016 05/28/2016 Inactive bumetanide 1 mg tablet RxNorm: 266155 TAKE ONE TABLET BY MOUTH TWICE DAILY 05/19/2016 06/17/2016 Inactive Sprintec (28) 0.25 mg-35 mcg tablet RxNorm: 892486 1 Tablet(s) PO UD 05/08/2016 No Stop Date Active Lantus Solostar 100 unit/mL (3 mL) subcutaneous insulin pen RxNorm: 446042 Unit(s) SQ UD 15units qam 30 units qhs 05/08/2016 No Stop Date Active Humalog KwikPen 200 unit/mL (3 mL) subcutaneous RxNorm: 7682567 10 Unit(s) SQ AC 05/08/2016 06/12/2016 Inactive bumetanide 1 mg tablet RxNorm: 806828 TAKE ONE TABLET BY MOUTH TWICE DAILY 04/28/2016 05/18/2016 Inactive Voltaren 1 % topical gel RxNorm: 362628 1 Application TOP BID 04/28/2016 05/07/2016 Inactive cyclobenzaprine 10 mg tablet RxNorm: 222950 1 Tablet(s) PO PRN as needed 04/28/2016 05/07/2016 Inactive hydrocodone 7.5 mg-acetaminophen 325 mg tablet RxNorm: 418204 1 Tablet(s) PO Q4H as needed 04/18/2016 05/16/2016 Inactive Lantus Solostar 100 unit/mL (3 mL) subcutaneous insulin pen RxNorm: 026418 Unit(s) SQ UD 10 units QHS x5 days, if sugars are over 200 increase to 15 units x 5 days, if sugars over 200 increase to 20 units. 04/14/2016 05/07/2016 Inactive lidocaine 4 % topical patch RxNorm: 3061988 1 Patch TOP on for 12 hours and off for 12 hours 04/13/2016 11/13/2016 Inactive Voltaren 1 % topical gel RxNorm: 486182 1 Application TOP BID 04/10/2016 04/27/2016 Inactive metformin ER 500 mg 24 hr tablet,extended release RxNorm: 771899 1 Tablet(s) PO daily 04/06/2016 05/05/2016 Inactive Kenalog 40 mg/mL suspension for injection RxNorm: 3883109 1 Milliliter(s) Inj 04/06/2016 04/06/2016 Inactive cyclobenzaprine 10 mg tablet RxNorm: 852086 1 Tablet(s) PO PRN as needed 04/06/2016 04/27/2016 Inactive WelChol 3.75 gram oral powder packet RxNorm: 595122 1 packet PO daily 04/06/2016 07/04/2016 Inactive alprazolam 0.5 mg tablet RxNorm: 940160 1 Tablet(s) PO Q8 as needed 03/30/2016 No Stop Date Active Levaquin 500 mg tablet RxNorm: 439868 1 Tablet(s) PO daily 03/30/2016 04/05/2016 Inactive metoprolol succinate ER 100 mg tablet,extended release 24 hr RxNorm: 420979 TAKE ONE TABLET BY MOUTH ONCE DAILY 03/16/2016 06/12/2016 Inactive Levaquin 500 mg tablet RxNorm: 515826 1 Tablet(s) PO daily 03/08/2016 03/14/2016 Inactive prednisone 20 mg tablet RxNorm: 852405 2 Tablet(s) PO daily 03/08/2016 03/12/2016 Inactive Phenergan with Codeine Syrup RxNorm: 5-10 ML PO QID as needed cough 02/28/2016 No Stop Date Active Xopenex HFA 45 mcg/actuation aerosol inhaler RxNorm: 098911 1 Puff(s) INH PRN 02/28/2016 06/13/2016 Inactive Kenalog 40 mg/mL suspension for injection RxNorm: 6133621 1 Milliliter(s) Inj 02/28/2016 02/28/2016 Inactive Zithromax Z-Rashid 250 mg tablet RxNorm: 576294 1 Tablet(s) PO UD 02/28/2016 03/27/2016 Inactive alprazolam 0.5 mg tablet RxNorm: 594083 1 Tablet(s) PO Q8 as needed 02/24/2016 03/21/2016 Inactive glipizide 5 mg tablet RxNorm: 796330 1 Tablet(s) PO daily 01/18/2016 05/16/2016 Inactive Actos 15 mg tablet RxNorm: 974835 1 Tablet(s) PO daily 01/18/2016 02/16/2016 Inactive gabapentin 100 mg capsule RxNorm: 285096 1 Capsule(s) PO QHS 01/13/2016 03/12/2016 Inactive gabapentin 100 mg capsule RxNorm: 118511 1 Capsule(s) PO QHS 01/13/2016 01/12/2016 Inactive Bydureon 2 mg/0.65 mL subcutaneous pen injector RxNorm: 9587359 1 Milliliter(s) SQ QW 01/12/2016 01/11/2016 Inactive Bydureon 2 mg/0.65 mL subcutaneous pen injector RxNorm: 9969479 2/0.65ml Milligram(s) SQ QW 01/12/2016 05/16/2016 Inactive Bydureon 2 mg/0.65 mL subcutaneous pen injector RxNorm: 8284275 1 Milliliter(s) SQ QW 01/12/2016 01/11/2016 Inactive bumetanide 1 mg tablet RxNorm: 924705 TAKE ONE TABLET BY MOUTH TWICE DAILY 01/10/2016 04/08/2016 Inactive promethazine 25 mg tablet RxNorm: 075082 Tablet(s) Tablet(s) 1 Tablet(s) PO Q6-8H as needed 12/16/2015 04/13/2016 Inactive promethazine 25 mg tablet RxNorm: 480536 Tablet(s) 1 Tablet(s) PO Q6-8H as needed 12/10/2015 12/15/2015 Inactive Trulicity 0.75 mg/0.5 mL subcutaneous pen injector RxNorm: 2480040 INJECT ONE-HALF ML SUBCUTANEOUSLY ONCE A WEEK 12/10/2015 01/11/2016 Inactive glipizide 5 mg tablet RxNorm: 930913 1 Tablet(s) PO daily 12/10/2015 01/17/2016 Inactive bumetanide 1 mg tablet RxNorm: 314600 TAKE ONE TABLET BY MOUTH TWICE DAILY 12/10/2015 01/08/2016 Inactive promethazine 25 mg tablet RxNorm: 557665 Tablet(s) 1 Tablet(s) PO Q6-8H as needed 11/18/2015 12/09/2015 Inactive promethazine 25 mg tablet RxNorm: 268907 1 Tablet(s) PO Q6-8H as needed 11/16/2015 11/17/2015 Inactive glipizide 5 mg tablet RxNorm: 159422 1/2 Tablet(s) PO daily 11/16/2015 12/15/2015 Inactive promethazine 25 mg tablet RxNorm: 105269 Tablet(s) 1 Tablet(s) PO Q6-8H as needed 11/11/2015 12/10/2015 Inactive metoprolol tartrate 50 mg tablet RxNorm: 217673 1 Tablet(s) PO BID 11/11/2015 02/08/2016 Inactive Trulicity 0.75 mg/0.5 mL subcutaneous pen injector RxNorm: 3710206 .5 Milliliter(s) SQ QW 11/11/2015 01/11/2016 Inactive promethazine 25 mg tablet RxNorm: 404432 1 Tablet(s) PO Q6-8H as needed 10/28/2015 11/10/2015 Inactive nystatin 100,000 unit/gram topical cream RxNorm: 569971 1 Gram(s) TOP BID 10/27/2015 No Stop Date Active alprazolam 0.5 mg tablet RxNorm: 058604 1 Tablet(s) PO Q8 as needed 10/27/2015 03/29/2016 Inactive hydrocodone 7.5 mg-acetaminophen 325 mg tablet RxNorm: 205711 1 Tablet(s) PO Q4H as needed 10/27/2015 11/25/2015 Inactive Trulicity 0.75 mg/0.5 mL subcutaneous pen injector RxNorm: 6207882 .5 Milliliter(s) SQ QW 10/27/2015 11/10/2015 Inactive glipizide 5 mg tablet RxNorm: 659980 1 Tablet(s) PO daily 10/27/2015 11/25/2015 Inactive hydrocodone 7.5 mg-acetaminophen 325 mg tablet RxNorm: 754386 1 Tablet(s) PO Q4H as needed 10/26/2015 10/26/2015 Inactive alprazolam 0.5 mg tablet RxNorm: 819673 1 Tablet(s) PO PRN as needed 10/26/2015 10/26/2015 Inactive promethazine 25 mg tablet RxNorm: 995502 1 Tablet(s) PO Q6-8H as needed 10/26/2015 11/15/2015 Inactive glipizide 5 mg tablet RxNorm: 742738 1/2 Tablet(s) PO daily 10/13/2015 10/26/2015 Inactive cefdinir 300 mg capsule RxNorm: 442836 1 Capsule(s) PO BID 10/05/2015 10/14/2015 Inactive prednisone 20 mg tablet RxNorm: 269807 2 Tablet(s) PO daily 10/05/2015 10/09/2015 Inactive Diflucan 150 mg tablet RxNorm: 907887 1 Tablet(s) PO daily 10/05/2015 10/11/2015 Inactive Invokamet 50 mg-500 mg tablet RxNorm: 1850043 1 Tablet(s) PO daily 10/05/2015 11/03/2015 Inactive alprazolam 0.5 mg tablet RxNorm: 888742 1 Tablet(s) PO PRN as needed 10/01/2015 02/23/2016 Inactive promethazine 25 mg tablet RxNorm: 815796 1 Tablet(s) PO Q6-8H as needed 09/30/2015 10/25/2015 Inactive bumetanide 1 mg tablet RxNorm: 369289 TAKE ONE TABLET BY MOUTH TWICE DAILY 09/30/2015 10/29/2015 Inactive bumetanide 1 mg tablet RxNorm: 429764 TAKE ONE TABLET BY MOUTH TWICE DAILY 09/20/2015 12/18/2015 Inactive bumetanide 1 mg tablet RxNorm: 575232 1 Tablet(s) PO BID 09/20/2015 10/19/2015 Inactive metoprolol succinate ER 100 mg tablet,extended release 24 hr RxNorm: 595325 1 Tablet(s) PO daily 09/16/2015 03/13/2016 Inactive spironolactone 50 mg tablet RxNorm: 655320 1 Tablet(s) PO BID 09/16/2015 03/13/2016 Inactive alprazolam 0.5 mg tablet RxNorm: 841505 1 Tablet(s) PO PRN as needed 09/16/2015 10/25/2015 Inactive hydrocodone 7.5 mg-acetaminophen 325 mg tablet RxNorm: 045776 1 Tablet(s) PO Q4H as needed 09/16/2015 10/25/2015 Inactive Invokamet 50 mg-1,000 mg tablet RxNorm: 1862861 1 Tablet(s) PO daily 09/06/2015 09/05/2015 Inactive Invokamet 50 mg-1,000 mg tablet RxNorm: 8404125 1 Tablet(s) PO daily 09/06/2015 12/04/2015 Inactive promethazine 25 mg tablet RxNorm: 463157 TAKE ONE TABLET BY MOUTH EVERY 6 TO 8 HOURS NEEDED 09/01/2015 09/16/2015 Inactive promethazine 25 mg tablet RxNorm: 168587 1 Tablet(s) PO Q6-8H as needed 08/27/2015 09/25/2015 Inactive metoprolol succinate ER 100 mg tablet,extended release 24 hr RxNorm: 847207 1 Tablet(s) PO daily 08/20/2015 09/15/2015 Inactive bumetanide 1 mg tablet RxNorm: 841128 1 Tablet(s) PO BID 08/20/2015 09/18/2015 Inactive Bumex 1 mg tablet RxNorm: 575929 1 Tablet(s) PO BID 08/20/2015 11/15/2015 Inactive Kenalog 40 mg/mL suspension for injection RxNorm: 6683113 Milliliter(s) Inj 08/20/2015 08/20/2015 Inactive bumetanide 1 mg tablet RxNorm: 475419 1 Tablet(s) PO BID 08/20/2015 08/19/2015 Inactive Levaquin 500 mg tablet RxNorm: 372482 1 Tablet(s) PO daily 08/20/2015 08/26/2015 Inactive promethazine 25 mg tablet RxNorm: 029846 1 Tablet(s) PO Q6-8H as needed 08/06/2015 08/26/2015 Inactive metformin 500 mg tablet RxNorm: 137859 Tablet(s) PO 500mg in the morning and 1000mg at night No Start Date 09/16/2015 Inactive Lantus Solostar 100 unit/mL (3 mL) subcutaneous insulin pen RxNorm: 540016 Unit(s) SQ UD 10 units QHS x 5 days, if blood sugars are above 200 increase to 15 units x 5 days, if still 200 increase to 20 units. No Start Date 04/13/2016 Inactive alprazolam 0.5 mg tablet RxNorm: 466100 1 Tablet(s) PO PRN as needed No Start Date 09/15/2015 Inactive cyclobenzaprine 10 mg tablet RxNorm: 632717 1 Tablet(s) PO PRN as needed No Start Date 04/05/2016 Inactive lidocaine 4 % topical patch RxNorm: 2514236 1 Patch TOP on for 12 hours and off for 12 hours No Start Date 04/12/2016 Inactive metoprolol tartrate 50 mg tablet RxNorm: 681787 1 Tablet(s) PO BID No Start Date 11/10/2015 Inactive spironolactone 50 mg tablet RxNorm: 681161 1 Tablet(s) PO BID No Start Date 09/15/2015 Inactive hydrocodone 7.5 mg-acetaminophen 325 mg tablet RxNorm: 981843 1 Tablet(s) PO Q4H as needed No Start Date 09/15/2015 Inactive promethazine 25 mg tablet RxNorm: 930310 1 Tablet(s) PO PRN as needed No Start Date 08/05/2015 Inactive Medication Administered Medication Codes Instructions Start Date Status Kenalog 40 mg/mL suspension for injection RxNorm: 2507355 1Milliliter 04/06/2016 No longer Active Kenalog 40 mg/mL suspension for injection RxNorm: 8070013 1Milliliter 02/28/2016 No longer Active Kenalog 40 mg/mL suspension for injection RxNorm: 8566508 Milliliter 08/20/2015 No longer Active Immunizations Vaccine [...] Code Item Item Code Result Date %Hba1C Der143 % HbA1c 17149- 6 11.1 % 2016 %Hba1C Cwk778 Gluc Ave 272 mg/dL 2016 C-Reactive Protein Qnt Crqnt CRP 4.7 mg/dl 2016 Comp Metabolic Tak888 NA 136 mEq/L 2016 Comp Metabolic Vud529 K 4.1 mEq/L 2016 Comp Metabolic Mqf821 CL 96 mEq/L 2016 Comp Metabolic Gqd084 CO2 29.0 mEq/L 2016 Comp Metabolic Lcc698 ANION GAP 15 2016 Comp Metabolic Dgz193 GLUCOSE 291 mg/dL 2016 Comp Metabolic Lmn189 Creat 0.4 mg/dL 2016 Comp Metabolic Cml188 eGFR 165 ml/min/1.73m2 2016 Comp Metabolic Mla587 BUN 11 mg/dL 2016 Comp Metabolic Jyv459 B/C Ratio 25.0 Ratio 2016 Comp Metabolic Ofx489 CALCIUM 9.4 mg/dL 2016 Comp Metabolic Gva158 ALK PHOS 111 U/L 2016 Comp Metabolic Uzr832 AST(SGOT) 46 U/L 2016 Comp Metabolic Peo340 ALT(SGPT) 60 U/L 2016 Comp Metabolic Oxa270 BILI T 0.4 mg/dL 2016 Comp Metabolic Mox510 ALBUMIN 4.0 g/dL 2016 Comp Metabolic Xda285 TPRO 6.5 g/dL 2016 Comp Metabolic Iau504 GLOB 2.6 g/dL 2016 Comp Metabolic Fto427 A/G Ratio 1.5 Ratio 2016 Comp Metabolic Qso251 Osmo 282 mOsmo 2016 Cbc With Differential Ord2 WBC 14.64 K/ul 2016 Cbc With Differential Ord2 RBC 4.95 M/ul 2016 Cbc With Differential Ord2 HGB 15.1 g/dl 2016 Cbc With Differential Ord2 Neut% 69.6 % 2016 Cbc With Differential Ord2 HCT 46.2 % 2016 Cbc With Differential Ord2 MCV 93.3 fl 2016 Cbc With Differential Ord2 Lymph% 24.1 % 2016 Cbc With Differential Ord2 MCH 30.5 pg 2016 Cbc With Differential Ord2 [place]% 4.7 % 2016 Cbc With Differential Ord2 [...] 3.53 K/ul 2016 Cbc With Differential Ord2 [place] ABS# 0.7 K/ul 2016 Cbc With Differential Ord2 Eos ABS# 0.2 K/ul 2016 Cbc With Differential Ord2 Baso ABS# 0.1 K/ul 2016 Lipid Ord30 CHOL 228 mg/dL 05/05/2016 Lipid Ord30 HDL 42.0 mg/dl 05/05/2016 Lipid Ord30 TRIG 168 mg/dL 05/05/2016 Lipid Ord30 LDL 152 mg/dL 05/05/2016 Lipid Ord30 C/HDL 5.4 Ratio 05/05/2016 Comp Metabolic Nbh862 NA 135 mEq/L 05/05/2016 Comp Metabolic Axm147 K 4.1 mEq/L 05/05/2016 Comp Metabolic Uur323 CL 99 mEq/L 05/05/2016 Comp Metabolic Zoo976 CO2 29.0 mEq/L 05/05/2016 Comp Metabolic Skd946 ANION GAP 11 05/05/2016 Comp Metabolic Qul592 GLUCOSE 229 mg/dL 05/05/2016 Comp Metabolic Qad667 Creat 0.5 mg/dL 05/05/2016 Comp Metabolic Btf909 eGFR 150 ml/min/1.73m2 05/05/2016 Comp Metabolic Nwx556 BUN 14 mg/dL 05/05/2016 Comp Metabolic Gug551 B/C Ratio 29.2 Ratio 05/05/2016 Comp Metabolic Amy011 CALCIUM 9.1 mg/dL 05/05/2016 Comp Metabolic Rvd112 ALK PHOS 112 U/L 05/05/2016 Comp Metabolic Whn926 AST(SGOT) 59 U/L 05/05/2016 Comp Metabolic Ffe114 ALT(SGPT) 63 U/L 05/05/2016 Comp Metabolic Woh142 BILI T 0.7 mg/dL 05/05/2016 Comp Metabolic Epb396 ALBUMIN 3.8 g/dL 05/05/2016 Comp Metabolic Art930 TPRO 6.5 g/dL 05/05/2016 Comp Metabolic Kui205 GLOB 2.7 g/dL 05/05/2016 Comp Metabolic Snv688 A/G Ratio 1.4 Ratio 05/05/2016 Comp Metabolic Mue480 Osmo 278 mOsmo 05/05/2016 Cbc With Differential [...] 30.2 pg 05/05/2016 Cbc With Differential Ord2 [place]% 4.4 % 05/05/2016 Cbc With Differential Ord2 [...] 3.59 K/ul 05/05/2016 Cbc With Differential Ord2 [place] ABS# 0.7 K/ul 05/05/2016 Cbc With Differential Ord2 Eos ABS# 0.1 K/ul 05/05/2016 Cbc With Differential Ord2 Baso ABS# 0.1 K/ul 05/05/2016 %Hba1C Mcd273 % HbA1c 21702- 6 10.4 % 05/05/2016 %Hba1C Hse615 Gluc Ave 252 mg/dL 05/05/2016 Hcg Beta Subunit Qual Serum 009056 B-HCG QUALITATIVE NEGATIVE 12/27/2015 GC/CHL PRB 1754840 Chl trach DNA Negative 12/25/2015 GC/CHL PRB 0037410 GC PROBE Negative 12/25/2015 Comp. Metabolic Panel (14) 98361 GLUCOSE 136 mg/dL 12/17/2015 Comp. Metabolic Panel (14) 45261 BUN 9 mg/dL 12/17/2015 Comp. Metabolic Panel (14) 71816 CREATININE 0.67 mg/dL 12/17/2015 Comp. Metabolic Panel (14) 23593 SODIUM 136 mmol/L 12/17/2015 Comp. Metabolic Panel (14) 17844 POTASSIUM 4.4 mmol/L 12/17/2015 Comp. Metabolic Panel (14) 73526 CHLORIDE 95 mmol/L 12/17/2015 Comp. Metabolic Panel (14) 87937 CARBON DIOXIDE 28 mmol/L 12/17/2015 Comp. Metabolic Panel (14) 96676 CALCIUM 10.1 mg/dL 12/17/2015 Comp. Metabolic Panel (14) 63081 TOTAL PROTEIN 7.0 g/dL 12/17/2015 Comp. Metabolic Panel (14) 50146 ALBUMIN 4.5 g/dL 12/17/2015 Comp. Metabolic Panel (14) 09866 ALKALINE PHOSPHATASE 87 U/L 12/17/2015 Comp. Metabolic Panel (14) 16987 TOTAL BILIRUBIN 0.5 mg/dL 12/17/2015 Comp. Metabolic Panel (14) 12282 SGOT (AST) 38 U/L 12/17/2015 Comp. Metabolic Panel (14) 23665 SGPT (ALT) 41 U/L 12/17/2015 Comp. Metabolic Panel (14) 05682 eGFR (mL/min/1.73m2) >60 12/17/2015 Comp. Metabolic Panel (14) 42889 12/17/2015 Cbc With Differential/Platelet 49482 WBC 16.67 thou/uL 12/17/2015 Cbc With Differential/Platelet 87345 RBC 5.11 mil/uL 12/17/2015 Cbc With Differential/Platelet 97353 HEMOGLOBIN 14.8 g/dL 12/17/2015 Cbc With Differential/Platelet 97727 HEMATOCRIT 48.7 % 12/17/2015 Cbc With Differential/Platelet 71266 MCV 95.4 fL 12/17/2015 Cbc With Differential/Platelet 00601 MCH 29.0 pg 12/17/2015 Cbc With Differential/Platelet 35810 MCHC 30.4 g/dL 12/17/2015 Cbc With Differential/Platelet 22237 RDW-CV 14.6 % 12/17/2015 Cbc With Differential/Platelet 73816 PLATELET COUNT 471 thou/uL 12/17/2015 Cbc With Differential/Platelet 21722 NEUTROPHIL % 71.3 % 12/17/2015 Cbc With Differential/Platelet 24665 LYMPHOCYTE % 22.4 % 12/17/2015 Cbc With Differential/Platelet 05387 MONOCYTE % 4.8 % 12/17/2015 Cbc With Differential/Platelet 10004 EOS % 0.7 % 12/17/2015 Cbc With Differential/Platelet 67230 BASO % 0.7 % 12/17/2015 Cbc With Differential/Platelet 36327 NEUTROPHIL ABS # 11.89 thou/uL 12/17/2015 Cbc With Differential/Platelet 49986 LYMPH ABS # 3.73 thou/uL 12/17/2015 Cbc With Differential/Platelet 36081 MONOCYTE ABS # 0.80 thou/uL 12/17/2015 Cbc With Differential/Platelet 10758 EOS ABS # 0.12 thou/uL 12/17/2015 Cbc With Differential/Platelet 11783 BASO ABS # 0.12 thou/uL 12/17/2015 Comp. [...] Hgb A1C With Eag Estimation GLYCOHEMOGLOBIN A1C 49936-7 8.1 % 11/13/2015 Hgb A1C With Eag Estimation ESTIMATED AVG GLUCOSE 186 mg/dL 11/13/2015 Comp. Metabolic Panel (14) 82461 GLUCOSE 84 mg/dL 09/11/2015 Comp. Metabolic Panel (14) 37556 BUN 11 mg/dL 09/11/2015 Comp. Metabolic Panel (14) 92352 CREATININE 0.56 mg/dL 09/11/2015 Comp. Metabolic Panel (14) 66573 SODIUM 142 mmol/L 09/11/2015 Comp. Metabolic Panel (14) 84749 POTASSIUM 4.3 mmol/L 09/11/2015 Comp. Metabolic Panel (14) 50092 CHLORIDE 98 mmol/L 09/11/2015 Comp. Metabolic Panel (14) 00187 CARBON DIOXIDE 27 mmol/L 09/11/2015 Comp. Metabolic Panel (14) 48425 CALCIUM 10.1 mg/dL 09/11/2015 Comp. Metabolic Panel (14) 23537 TOTAL PROTEIN 7.2 g/dL 09/11/2015 Comp. Metabolic Panel (14) 55676 ALBUMIN 4.7 g/dL 09/11/2015 Comp. Metabolic Panel (14) 96365 ALKALINE PHOSPHATASE 109 U/L 09/11/2015 Comp. Metabolic Panel (14) 46102 TOTAL BILIRUBIN 0.3 mg/dL 09/11/2015 Comp. Metabolic Panel (14) 76034 SGOT (AST) 53 U/L 09/11/2015 Comp. Metabolic Panel (14) 43526 SGPT (ALT) 53 U/L 09/11/2015 Comp. Metabolic Panel (14) 90212 eGFR (mL/min/1.73m2) >60 09/11/2015 Comp. Metabolic Panel (14) 72988 09/11/2015 Comp. Metabolic Panel (14) 90477 GLUCOSE 183 mg/dL 08/11/2015 Comp. Metabolic Panel (14) 85920 BUN 10 mg/dL 08/11/2015 Comp. Metabolic Panel (14) 32158 CREATININE 0.46 mg/dL 08/11/2015 Comp. Metabolic Panel (14) 19915 SODIUM 138 mmol/L 08/11/2015 Comp. Metabolic Panel (14) 77539 POTASSIUM 4.0 mmol/L 08/11/2015 Comp. Metabolic Panel (14) 83080 CHLORIDE 98 mmol/L 08/11/2015 Comp. Metabolic Panel (14) 86149 CARBON DIOXIDE 29 mmol/L 08/11/2015 Comp. Metabolic Panel (14) 19342 CALCIUM 9.4 mg/dL 08/11/2015 Comp. Metabolic Panel (14) 70958 TOTAL PROTEIN 6.8 g/dL 08/11/2015 Comp. Metabolic Panel (14) 48469 ALBUMIN 4.4 g/dL 08/11/2015 Comp. Metabolic Panel (14) 56119 ALKALINE PHOSPHATASE 118 U/L 08/11/2015 Comp. Metabolic Panel (14) 68919 TOTAL BILIRUBIN <0.3 mg/dL 08/11/2015 Comp. Metabolic Panel (14) 55110 SGOT (AST) 41 U/L 08/11/2015 Comp. Metabolic Panel (14) 88866 SGPT (ALT) 55 U/L 08/11/2015 Comp. Metabolic Panel (14) 41745 eGFR (mL/min/1.73m2) >60 08/11/2015 Comp. Metabolic Panel (14) 19142 08/11/2015 Cbc With Differential/Platelet 62981 WBC 11.76 thou/uL 08/11/2015 Cbc With Differential/Platelet 75949 RBC 4.98 mil/uL 08/11/2015 Cbc With Differential/Platelet 21064 HEMOGLOBIN 14.2 g/dL 08/11/2015 Cbc With Differential/Platelet 37249 HEMATOCRIT 46.7 % 08/11/2015 Cbc With Differential/Platelet 61834 MCV 93.8 fL 08/11/2015 Cbc With Differential/Platelet 49752 MCH 28.5 pg 08/11/2015 Cbc With Differential/Platelet 12596 MCHC 30.4 g/dL 08/11/2015 Cbc With Differential/Platelet 47021 RDW-CV 14.3 % 08/11/2015 Cbc With Differential/Platelet 78350 PLATELET COUNT 382 thou/uL 08/11/2015 Cbc With Differential/Platelet 29057 NEUTROPHIL % 67.3 % 08/11/2015 Cbc With Differential/Platelet 01476 LYMPHOCYTE % 24.0 % 08/11/2015 Cbc With Differential/Platelet 02986 MONOCYTE % 6.0 % 08/11/2015 Cbc With Differential/Platelet 92896 EOS % 1.6 % 08/11/2015 Cbc With Differential/Platelet 83727 BASO % 1.0 % 08/11/2015 Cbc With Differential/Platelet 33145 NEUTROPHIL ABS # 7.91 thou/uL 08/11/2015 Cbc With Differential/Platelet 65322 LYMPH ABS # 2.82 thou/uL 08/11/2015 Cbc With Differential/Platelet 44062 MONOCYTE ABS # 0.71 thou/uL 08/11/2015 Cbc With Differential/Platelet 65189 EOS ABS # 0.19 thou/uL 08/11/2015 Cbc With Differential/Platelet 86725 BASO ABS # 0.12 thou/uL 08/11/2015 Tsh 630678 TSH 3.220 uIU/mL 08/11/2015 Lipid Panel 08390 CHOLESTEROL 193 mg/dL 08/11/2015 Lipid Panel 85118 TRIGLYCERIDES 192 mg/dL 08/11/2015 Lipid Panel 94452 HDL 38 mg/dL 08/11/2015 Lipid Panel 20686 CHOLESTEROL/HDL 5.08 08/11/2015 Lipid Panel 97240 LDL (CALCULATED) 117 mg/dL 08/11/2015 Lipid Panel 01415 LDL/HDL 3.08 08/11/2015 Lipid Panel 03940 PHENOTYPE TYPE IV BORDERLINE 08/11/2015 Review of [...] Procedure Codes Date THER/PROPH/DIAG INJ SC/IM CPT-4: 86192Koaraft 04/13/2016 Pneumococcal Polysaccharide Vaccine, 23-Valent, Ad CPT-4: 38145Nvurxsn 04/13/2016 INJECT TRIGGER POINTS 3/> CPT-4: 44321Rugkuxg 04/06/2016 TRIAMCINOLONE ACET INJ NOS CPT-4: Z7410Lhdkbfd 04/06/2016 IMMUNIZATION ADMIN CPT-4: 46344Asshzci 03/30/2016 IIV4 FLU VACC NO PRESERV ID SNOMED CT: [id number] CPT-4: 57768Jyqekak 03/30/2016 TRIAMCINOLONE ACET INJ NOS CPT-4: N9962Cvrqego 02/28/2016 THER/PROPH/DIAG INJ SC/IM CPT-4: 86633Zyyujoe 02/28/2016 TRIAMCINOLONE ACET INJ NOS CPT-4: W7859Iieiewz 08/20/2015 Vital Signs Date Vital 10/30/2016 Blood Pressure 1: 124/78 Code: 8480-6 BMI: 49.1 Code: 69355-8 Heart Rate 1: 90 bpm Height: 4'11" SpO2: 97% Weight: 243 lbs 10/09/2016 Blood Pressure 1: 124/80 Code: 8480-6 BMI: 49.3 Code: 78214-3 Heart Rate 1: 91 bpm Height: 4'11" SpO2: 98% Weight: 244 lbs 09/12/2016 Blood Pressure 1: 128/80 Code: 8480-6 BMI: 49.1 Code: 89891-3 Heart Rate 1: 94 bpm Height: 4'11" SpO2: 95% Weight: 243 lbs 09/05/2016 Blood Pressure 1: 118/74 Code: 8480-6 BMI: 49.1 Code: 66985-7 Heart Rate 1: 100 bpm Height: 4'11" SpO2: 97% Weight: 243 lbs 06/16/2016 Blood Pressure 1: 120/62 Code: 8480-6 BMI: 49.1 Code: 51617-1 Heart Rate 1: 100 bpm Height: 4'11" SpO2: 96% Temperature: 36.7 (C) / 98.0 (F) Weight: 243 lbs 06/13/2016 Blood Pressure 1: 120/70 Code: 8480-6 Heart Rate 1: 117 bpm SpO2: 97% 05/19/2016 Blood Pressure 1: 130/64 Code: 8480-6 BMI: 49.1 Code: 77596-1 Heart Rate 1: 101 bpm Height: 4'11" SpO2: 96% Weight: 243 lbs 05/08/2016 Blood Pressure 1: 128/76 Code: 8480-6 Heart Rate 1: 119 bpm Height: SpO2: 97% Weight: 05/05/2016 Blood Pressure 1: 12476 Code: 8480-6 BMI: 49.1 Code: 59933-8 Heart Rate 1: 75 bpm Height: 4'11" SpO2: 99% Weight: 243 lbs 04/10/2016 Blood Pressure 1: 140/80 Code: 8480-6 BMI: 49.7 Code: 42720-1 Heart Rate 1: 88 bpm Height: 4'11" SpO2: 95% Weight: 246 lbs 04/06/2016 Blood Pressure 1: 134/82 Code: 8480-6 BMI: 75.1 Code: 58188-4 Heart Rate 1: 72 bpm Height: 4' SpO2: 96% Weight: 246 lbs 03/08/2016 Blood Pressure 1: 126/72 Code: 8480-6 BMI: 49.7 Code: 72007-1 Heart Rate 1: 89 bpm Height: 4'11" SpO2: 97% Weight: 246 lbs 02/28/2016 Blood Pressure 1: 124/68 Code: 8480-6 BMI: 49.7 Code: 24691-5 Heart Rate 1: 89 bpm Height: 4'11" SpO2: 96% Weight: 246 lbs 01/18/2016 Blood Pressure 1: 142/78 Code: 8480-6 BMI: 48.9 Code: 91177-7 Heart Rate 1: 97 bpm Height: 4'11" SpO2: 97% Weight: 242 lbs 12/23/2015 Blood Pressure 1: 124/74 Code: 8480-6 BMI: 48.9 Code: 29787-1 Heart Rate 1: 106 bpm Height: 4'11" SpO2: 96% Weight: 242 lbs 12/16/2015 Blood Pressure 1: 116/82 Code: 8480-6 BMI: 48.3 Code: 84246-6 Heart Rate 1: 111 bpm Height: 4'11" SpO2: 97% Weight: 239 lbs 11/11/2015 Blood Pressure 1: 130/80 Code: 8480-6 BMI: 49.7 Code: 15881-1 Heart Rate 1: 105 bpm Height: 4'11" SpO2: 96% Weight: 246 lbs 10/27/2015 Blood Pressure 1: 122/70 Code: 8480-6 BMI: 49.5 Code: 11723-7 Heart Rate 1: 107 bpm Height: 4'11" SpO2: 96% Weight: 245 lbs 10/13/2015 Blood Pressure 1: 140/82 Code: 8480-6 BMI: 50.9 Code: 89324-1 Heart Rate 1: 111 bpm Height: 4'11" SpO2: 96% Weight: 252 lbs 10/05/2015 Blood Pressure 1: 118/70 Code: 8480-6 BMI: 51.1 Code: 58442-4 Heart Rate 1: 120 bpm Height: 4'11" SpO2: 97% Weight: 253 lbs 09/01/2015 Blood Pressure 1: 132/82 Code: 8480-6 BMI: 50.1 Code: 29693-4 Heart Rate 1: 110 bpm Height: 4'11" SpO2: 96% Weight: 248 lbs 08/20/2015 Blood Pressure 1: 132/78 Code: 8480-6 BMI: 51.7 Code: 49121-9 Heart Rate 1: 100 bpm Height: 4'11" Weight: 256 lbs 08/03/2015 Blood Pressure 1: 148/92 Code: 8480-6 BMI: 52.1 Code: 38489-7 Heart Rate 1: 100 bpm Height: 4'11" [...] mellitus with hyperglycemia[ICD10: E11.65] Gloria Hess MD, [facility] CPT-4: 31221 10/30/2016 61510 EST. PATIENT, LEVEL III Diagnosis: Candidiasis of vulva and vagina[ICD10: B37.3] Diagnosis: Type 2 diabetes mellitus with hyperglycemia[ICD10: E11.65] Gloria Hess MD, [facility] CPT-4: 46508 10/09/2016 18747 EST. PATIENT, LEVEL IV Diagnosis: Umbilical hernia without obstruction or gangrene[ICD10: K42.9] Gloria Hess MD, [facility] CPT-4: 68022 09/12/2016 49109 EST. PATIENT, LEVEL III Diagnosis: Epigastric pain[ICD10: R10.13] Diagnosis: Candidiasis of vulva and vagina[ICD10: B37.3] Diagnosis: Type 2 diabetes mellitus with hyperglycemia[ICD10: E11.65] Gloria Hess MD, [facility] CPT-4: 53316 09/05/2016 71721 EST. PATIENT, LEVEL III Diagnosis: Acute laryngopharyngitis[ICD10: J06.0] Diagnosis: Other allergic rhinitis[ICD10: J30.89] Gloria Hess MD, [facility] CPT- 4: 24080 06/16/2016 83388 EST. PATIENT, LEVEL III Diagnosis: Type 2 diabetes mellitus with hyperglycemia[ICD10: E11.65] Diagnosis: Other obesity due to excess calories[ICD10: E66.09] Gloria Hess MD, [facility] CPT-4: 32231 06/13/2016 02375 EST. PATIENT, LEVEL III Diagnosis: Type 2 diabetes mellitus with hyperglycemia[ICD10: E11.65] Diagnosis: Other obesity due to excess calories[ICD10: E66.09] Gloria Hess MD, [facility] CPT-4: 57206 05/19/2016 56718 EST. PATIENT, LEVEL III Diagnosis: Type 2 diabetes mellitus with hyperglycemia[ICD10: E11.65] Diagnosis: Other obesity due to excess calories[ICD10: E66.09] Gloria Hess MD, [facility] CPT-4: 32249 05/08/2016 15354 EST. PATIENT, LEVEL III Diagnosis: Type 2 diabetes mellitus without complications[ICD10: E11.9] Gloria Hess MD, [facility] CPT-4: 66066 05/05/2016 15977 EST. PATIENT, LEVEL III Diagnosis: Pain in right shoulder[ICD10: M25.511] Gloria Hess MD, [facility] CPT- 4: 42610 04/10/2016 00319 EST. PATIENT, LEVEL III Diagnosis: Pain in right shoulder[ICD10: M25.511] Diagnosis: Other muscle spasm[ICD10: M62.838] Diagnosis: Type 2 diabetes mellitus without complications[ICD10: E11.9] Gloria Hess MD, [facility] CPT-4: 62063 04/06/2016 96340 EST. PATIENT, LEVEL IV Diagnosis: Acute bronchitis due to other specified organisms[ICD10: J20.8] Diagnosis: Other acute sinusitis[ICD10: J01.80] Diagnosis: Acne vulgaris[ICD10: L70.0] Diagnosis: Morbid (severe) obesity due to excess calories[ICD10: E66.01] Gloria Hess MD, [facility] CPT-4: 00109 03/08/2016 54767 EST. PATIENT, LEVEL IV Diagnosis: Other acute sinusitis[ICD10: J01.80] Diagnosis: Localized enlarged lymph nodes[ICD10: R59.0] Gloria Hess MD, [facility] CPT-4: 59975 02/28/2016 23652 EST. PATIENT, LEVEL III Diagnosis: Type 2 diabetes mellitus without complications[ICD10: E11.9] Gloria Hess MD, [facility] CPT-4: 40528 01/18/2016 ([id number]) PREV VISIT EST AGE 40-64 Diagnosis: Encounter for gynecological examination (general) (routine) without abnormal findings[ICD10: Z01.419] Diagnosis: Excessive and frequent menstruation with irregular cycle[ICD10: N92.1] Gloria Hess MD, [facility] CPT-4: 32859 12/23/2015 18919 EST. PATIENT, LEVEL III Diagnosis: Type 2 diabetes mellitus without complications[ICD10: E11.9] Gloria Hess MD, [facility] CPT-4: 77240 12/16/2015 58753 EST. PATIENT, LEVEL III Diagnosis: Type 2 diabetes mellitus without complications[ICD10: E11.9] Diagnosis: Other obesity due to excess calories[ICD10: E66.09] Gloria Hess MD, [facility] CPT-4: 71056 11/11/2015 06506 EST. PATIENT, LEVEL III Diagnosis: Type 2 diabetes mellitus without complications[ICD10: E11.9] Diagnosis: Other obesity due to excess calories[ICD10: E66.09] Gloria Hess MD, [facility] CPT-4: 80635 10/27/2015 55149 EST. PATIENT, LEVEL III Diagnosis: Type 2 diabetes mellitus without complications[ICD10: E11.9] Diagnosis: Other obesity due to excess calories[ICD10: E66.09] Diagnosis: Other insomnia[ICD10: G47.09] Gloria Hess MD, [facility] CPT-4: 59133 10/13/2015 76309 EST. PATIENT, LEVEL IV Diagnosis: Acute recurrent maxillary sinusitis[ICD10: J01.01] Diagnosis: Allergic rhinitis due to pollen[ICD10: J30.1] Diagnosis: Other obesity due to excess calories[ICD10: E66.09] Gloria Hess MD, [facility] CPT-4: 63336 10/05/2015 10017 EST. PATIENT, LEVEL IV Diagnosis: Polycystic ovarian syndrome[ICD10: E28.2] Diagnosis: Other skin changes[ICD10: R23.8] Diagnosis: Other abnormal glucose[ICD10: R73.09] Gloria Hess MD, [facility] CPT- 4: 50693 09/01/2015 87070 EST. PATIENT, LEVEL IV Diagnosis: Acute recurrent maxillary sinusitis[ICD10: J01.01] Diagnosis: Morbid (severe) obesity due to excess calories[ICD10: E66.01] Diagnosis: Essential (primary) hypertension[ICD10: I10] Diagnosis: Allergic rhinitis due to pollen[ICD10: J30.1] Gloria Hess MD, [facility] CPT-4: 06253 08/20/2015 (86325) OFFICE VISIT, NEW - LEVEL 4 Diagnosis: Essential (primary) hypertension[ICD10: I10] Diagnosis: Obstructive sleep apnea (adult) (pediatric)[ICD10: G47.33] Diagnosis: Other insomnia[ICD10: G47.09] Diagnosis: Snoring[ICD10: R06.83] Diagnosis: Morbid (severe) obesity due to excess calories[ICD10: E66.01] Gloria Hess MD, [facility] CPT-4: 85705 08/03/2015 Plan of Care Planned Activity Notes Codes Status Date Visit Plan: Vaginal candidiasis - will send RX - pt is to notify clinic if symptoms do not improve, if they worsen, or with any questions or concerns. Diabetes Mellitus - Uncontrolled - Will refer to aerospace technician - I have recommended for the [...] Mellitus - Uncontrolled - Will refer to aerospace technician - I have recommended for the [...] glucose control. 10/09/2016 [facility]ment: [phone] ([facility] Complex 10/09/2016 Patient Education: Patient Medication Summary Completed 10/09/2016 Patient Education: Obesity Completed 10/09/2016 Referral: Roni Roberts Referral Completed 09/18/2016 Care Plan: CT ABD & PELV W/CONTRAST LOINC : 71558-6 Pending 09/13/2016 Care Plan: Referral Order SNOMED-CT : [id number] Pending 09/13/2016 Visit Plan: Ongoing abdominal pain/hernia - will send RX - will refer - pt is to notify clinic if symptoms do not improve, if they worsen, or with any questions or concerns. 09/12/2016 Appointment: [phone] ([facility] min) Complex 09/12/2016 Patient Education: Patient Medication Summary Completed 09/12/2016 Patient Education: Obesity Completed 09/12/2016 Care Plan: Referral Order SNOMED-CT : 479620701 Pending 09/12/2016 Visit Plan: Ongoing abdominal/epigastric pain [...] control. 09/05/2016 Appointment: [facility]el[phone] ([facility] min) Complex 09/05/2016 Patient Education: [...] [phone] (10 min) Simple 06/16/2016 Patient Education: [...] check. 06/13/2016 Appointment: Gloria Scott WPtel: [phone] [facility] (30 min) Complex 06/13/2016 Patient Education: Patient Medication Summary Completed 06/13/2016 Patient Education: Obesity Completed 06/13/2016 Appointment: Gloria Scott WPtel: [phone] [facility] (30 min) Complex 06/08/2016 Visit Plan: [...] check. 05/19/2016 Appointment: [facility]el[phone] (30 min) Complex 05/19/2016 Patient Education: Patient [...] check. 05/08/2016 Appointment: Gloria Scott WPtel: [facility] (15 min) Moderate 05/08/2016 Patient Education: [...] morning. 05/05/2016 Appointment: Tamy Lugo WPtel: [phone] [phone] [place] (15 min) Moderate 05/05/2016 Patient Education: Patient Medication Summary Completed 05/05/2016 Patient Education: Obesity Completed 05/05/2016 Care Plan: Comp Metabolic Pending 05/05/2016 Appointment: Jocelyn Hess WPtel: [phone] [phone] Surgical Procedure 04/17/2016 Appointment: Injection 04/13/2016 Patient Education: Patient Medication Summary Completed 04/13/2016 Visit Plan: Right shoulder pain - will refer to PT - The pt is to use prn antiinflammatories to manage acute pain. The patient is to call the office if the pain is worsening or does not improve. 04/10/2016 Appointment: Gloria Scott WPtel: [phone] [facility] [place] (30 min) Complex 04/10/2016 Patient Education: [...] glucose control. 04/06/2016 Appointment: Gloria Scott WPtel: [address] [place] [address] (15 min) Moderate 04/06/2016 Patient Education: Patient [...] [place] 02/28/2016 Appointment: [facility]el[phone] [place] (30 min) Complex 02/28/2016 Patient Education: Patient Medication Summary Completed 02/28/2016 Patient Education: Obesity Completed 02/28/2016 Appointment: [facility] Scott [facility]Ptel: [phone] [facility] [place] (15 min) Moderate 01/31/2016 Visit [...] prn. 12/23/2015 Appointment: [facility]Ptel[phone] [facility] 12/23/2015 Patient Education: Patient [...] %Hba1C ADD TO BLOOD IN THE LAB. [facility] : 28361-7 Pending 08/13/2015 Visit Plan: Hypertension - uncontrolled [...] Mellitus - Uncontrolled - Will refer to aerospace technician - I have recommended for the [...] Mellitus - Uncontrolled - Will refer to aerospace technician - I have recommended for the [...]
--- OUTSIDE RECORDS SUMMARY | 2018-12-17 03:03 | XMS REPORT | CCD ---
Author Author [facility] Address [address] [place] [address] Phone Care Team Providers Care Journeyman Wireman Name Role Phone PP Unavailable CCM Unavailable Summary Purpose Interface Exchange Insurance Providers Payer name Policy type / Coverage type Covered republican ID Effective Begin Date Effective End Date [facility] Commercial Insurance [id number] Unknown Unknown Family history Father Diagnosis Age At Onset Hypertension Unknown Arthritis Unknown Mother Diagnosis Age At Onset Arthritis Unknown Hyperlipidemia Unknown Daughter Diagnosis Age At Onset Asthma Unknown Social History Social History Element Codes Description Effective Dates Marital status Unknown Darin 08/03/2015 Number of children Unknown 1 08/03/[address]: 7573753 Quit less than 5 years ago 08/03/2015 [...] hydrocodone 7.5 mg-acetaminophen 325 mg tablet RxNorm: 502576 1 Tablet(s) PO Q4H as needed 12/22/2016 01/20/2017 Active bumetanide 1 mg tablet RxNorm: 202767 TAKE ONE TABLET BY MOUTH TWICE DAILY 12/17/2016 01/15/2017 Active promethazine 25 mg tablet RxNorm: 598375 Tablet(s) TAKE ONE TABLET BY MOUTH EVERY 6 TO 8 HOURS NEEDED 11/16/2016 12/15/2016 Inactive cyclobenzaprine 10 mg tablet RxNorm: 354837 TAKE ONE TABLET BY MOUTH NEEDED 11/15/2016 12/04/2016 Inactive spironolactone 50 mg tablet RxNorm: 757644 TAKE ONE TABLET BY MOUTH TWICE DAILY 11/15/2016 05/13/2017 Active Basaglar KwikPen 100 unit/mL (3 mL) subcutaneous RxNorm: 6536709 Unit(s) INJECT 35 UNITS IN THE MORNING AND 50 UNITS IN THE EVENING SUBCUTANEOUSLY 11/15/2016 03/14/2017 Active lidocaine 5 % topical patch RxNorm: 5628830 1 Patch TOP daily . 12 HOURS ON, 12 HOURS OFF 11/15/2016 12/04/2016 Inactive lidocaine 4 % topical patch RxNorm: 7111714 1 Patch TOP on for 12 hours and off for 12 hours 11/14/2016 11/14/2016 Inactive promethazine 25 mg tablet RxNorm: 899427 TAKE ONE TABLET BY MOUTH EVERY 6 TO 8 HOURS NEEDED 11/14/2016 11/15/2016 Inactive Basaglar KwikPen 100 unit/mL (3 mL) subcutaneous RxNorm: 3923553 INJECT 35 UNITS IN THE MORNING AND 50 UNITS IN THE EVENING SUBCUTANEOUSLY 11/14/2016 11/14/2016 Inactive cyclobenzaprine 10 mg tablet RxNorm: 250942 TAKE ONE TABLET BY MOUTH NEEDED 11/14/2016 11/14/2016 Inactive spironolactone 50 mg tablet RxNorm: 833685 TAKE ONE TABLET BY MOUTH TWICE DAILY 11/14/2016 11/14/2016 Inactive Humalog KwikPen 200 unit/mL (3 mL) subcutaneous RxNorm: 7922284 35 Unit(s) SQ AC 10/30/2016 No Stop Date Active QS 30 day supply Diflucan 150 mg tablet RxNorm: 416165 1 Tablet(s) PO as needed prophylactic after sexual intercourse 10/30/2016 No Stop Date Active hydrocodone 7.5 mg-acetaminophen 325 mg tablet RxNorm: 697329 1 Tablet(s) PO Q4H as needed 10/30/2016 11/28/2016 Inactive clotrimazole 100 mg vaginal tablet RxNorm: 557646 1 Tablet(s) VAG QW 10/30/2016 11/28/2016 Inactive Bydureon 2 mg/0.65 mL subcutaneous pen injector RxNorm: 7145892 2 Milligram(s) SQ QW 10/30/2016 11/28/2016 Inactive Basaglar KwikPen 100 unit/mL (3 mL) subcutaneous RxNorm: 8201435 Unit(s) SQ 35 units in the morning and 50 units in the evening 10/30/2016 11/13/2016 Inactive QS 30 day supply cyclobenzaprine 10 mg tablet RxNorm: 675769 TAKE ONE TABLET BY MOUTH NEEDED 10/27/2016 11/05/2016 Inactive Diflucan 150 mg tablet RxNorm: 419022 1 Tablet(s) PO daily x 7 days then once a week 10/27/2016 10/29/2016 Inactive promethazine 25 mg tablet RxNorm: 804699 TAKE ONE TABLET BY MOUTH EVERY 6 TO 8 HOURS NEEDED 10/27/2016 11/10/2016 Inactive Diflucan 150 mg tablet RxNorm: 239519 1 Tablet(s) PO daily x 7 days then once a week 10/09/2016 10/15/2016 Inactive Diflucan 150 mg tablet RxNorm: 604300 1 Tablet(s) PO daily 09/20/2016 09/26/2016 Inactive Cipro 500 mg tablet RxNorm: 747602 1 Tablet(s) PO BID 09/12/2016 09/21/2016 Inactive Flagyl 500 mg tablet RxNorm: 718467 1 Tablet(s) PO TID 09/12/2016 09/21/2016 Inactive Diflucan 150 mg tablet RxNorm: 145974 1 Tablet(s) PO daily 09/06/2016 09/12/2016 Inactive hydrocodone 7.5 mg-acetaminophen 325 mg tablet RxNorm: 598464 1 Tablet(s) PO Q4H as needed 07/12/2016 08/10/2016 Inactive Xopenex 1.25 mg/3 mL solution for nebulization RxNorm: 019804 3 Milliliter(s) INH TID 06/16/2016 No Stop Date Active cefdinir 300 mg capsule RxNorm: 625399 1 Capsule(s) PO BID 06/16/2016 06/25/2016 Inactive Mobic 7.5 mg tablet RxNorm: 488780 1 Tablet(s) PO daily 06/16/2016 06/25/2016 Inactive Levaquin 500 mg tablet RxNorm: 549799 1 Tablet(s) PO daily 06/16/2016 06/22/2016 Inactive cyclobenzaprine 10 mg tablet RxNorm: 046242 1 Tablet(s) PO PRN as needed 06/14/2016 06/23/2016 Inactive promethazine 25 mg tablet RxNorm: 290122 TAKE ONE TABLET BY MOUTH EVERY 6 TO 8 HOURS NEEDED 06/14/2016 06/28/2016 Inactive Xopenex HFA 45 mcg/actuation aerosol inhaler RxNorm: 440293 1 Puff(s) INH PRN 06/14/2016 07/15/2016 Inactive pen needle, diabetic 32 gauge x 5/16" RxNorm: 1 use Miscellaneous AC & HS 06/13/2016 No Stop Date Active QS 30 day supply Humalog KwikPen 200 unit/mL (3 mL) subcutaneous RxNorm: 3409987 10 Unit(s) SQ AC 06/13/2016 10/29/2016 Inactive QS 30 day supply Basaglar KwikPen 100 unit/mL (3 mL) subcutaneous RxNorm: 0699533 22 units in the morning and 35 in the evening. Unit(s) SQ 06/13/2016 10/29/2016 Inactive QS 30 day supply Tivorbex 20 mg capsule RxNorm: 4678491 1 Capsule(s) PO TID as needed 06/13/2016 06/13/2016 Inactive metoprolol succinate ER 100 mg tablet,extended release 24 hr RxNorm: 956075 TAKE ONE TABLET BY MOUTH ONCE DAILY 06/13/2016 10/10/2016 Inactive hydrocodone 7.5 mg-acetaminophen 325 mg tablet RxNorm: 407582 1 Tablet(s) PO Q4H as needed 06/13/2016 07/11/2016 Inactive Voltaren 1 % topical gel RxNorm: 907934 APPLY TOPICALLY TO AFFECTED AREA TWICE DAILY 05/30/2016 07/08/2016 Inactive alprazolam 0.5 mg tablet RxNorm: 240426 1 Tablet(s) PO Q8 as needed 05/19/2016 No Stop Date Active cyclobenzaprine 10 mg tablet RxNorm: 004802 1 Tablet(s) PO PRN as needed 05/19/2016 05/28/2016 Inactive bumetanide 1 mg tablet RxNorm: 065314 TAKE ONE TABLET BY MOUTH TWICE DAILY 05/19/2016 06/17/2016 Inactive Sprintec (28) 0.25 mg-35 mcg tablet RxNorm: 987682 1 Tablet(s) PO UD 05/08/2016 No Stop Date Active Lantus Solostar 100 unit/mL (3 mL) subcutaneous insulin pen RxNorm: 411598 Unit(s) SQ UD 15units qam 30 units qhs 05/08/2016 No Stop Date Active Humalog KwikPen 200 unit/mL (3 mL) subcutaneous RxNorm: 7297273 10 Unit(s) SQ AC 05/08/2016 06/12/2016 Inactive bumetanide 1 mg tablet RxNorm: 418159 TAKE ONE TABLET BY MOUTH TWICE DAILY 04/28/2016 05/18/2016 Inactive Voltaren 1 % topical gel RxNorm: 862901 1 Application TOP BID 04/28/2016 05/07/2016 Inactive cyclobenzaprine 10 mg tablet RxNorm: 119475 1 Tablet(s) PO PRN as needed 04/28/2016 05/07/2016 Inactive hydrocodone 7.5 mg-acetaminophen 325 mg tablet RxNorm: 808084 1 Tablet(s) PO Q4H as needed 04/18/2016 05/16/2016 Inactive Lantus Solostar 100 unit/mL (3 mL) subcutaneous insulin pen RxNorm: 663708 Unit(s) SQ UD 10 units QHS x5 days, if sugars are over 200 increase to 15 units x 5 days, if sugars over 200 increase to 20 units. 04/14/2016 05/07/2016 Inactive lidocaine 4 % topical patch RxNorm: 6938880 1 Patch TOP on for 12 hours and off for 12 hours 04/13/2016 11/13/2016 Inactive Voltaren 1 % topical gel RxNorm: 633884 1 Application TOP BID 04/10/2016 04/27/2016 Inactive metformin ER 500 mg 24 hr tablet,extended release RxNorm: 596948 1 Tablet(s) PO daily 04/06/2016 05/05/2016 Inactive Kenalog 40 mg/mL suspension for injection RxNorm: 7880301 1 Milliliter(s) Inj 04/06/2016 04/06/2016 Inactive cyclobenzaprine 10 mg tablet RxNorm: 511011 1 Tablet(s) PO PRN as needed 04/06/2016 04/27/2016 Inactive WelChol 3.75 gram oral powder packet RxNorm: 726289 1 packet PO daily 04/06/2016 07/04/2016 Inactive alprazolam 0.5 mg tablet RxNorm: 648682 1 Tablet(s) PO Q8 as needed 03/30/2016 No Stop Date Active Levaquin 500 mg tablet RxNorm: 806244 1 Tablet(s) PO daily 03/30/2016 04/05/2016 Inactive metoprolol succinate ER 100 mg tablet,extended release 24 hr RxNorm: 979642 TAKE ONE TABLET BY MOUTH ONCE DAILY 03/16/2016 06/12/2016 Inactive Levaquin 500 mg tablet RxNorm: 045594 1 Tablet(s) PO daily 03/08/2016 03/14/2016 Inactive prednisone 20 mg tablet RxNorm: 992466 2 Tablet(s) PO daily 03/08/2016 03/12/2016 Inactive Phenergan with Codeine Syrup RxNorm: 5-10 ML PO QID as needed cough 02/28/2016 No Stop Date Active Xopenex HFA 45 mcg/actuation aerosol inhaler RxNorm: 986345 1 Puff(s) INH PRN 02/28/2016 06/13/2016 Inactive Kenalog 40 mg/mL suspension for injection RxNorm: 2355428 1 Milliliter(s) Inj 02/28/2016 02/28/2016 Inactive Zithromax Z-Rashid 250 mg tablet RxNorm: 369665 1 Tablet(s) PO UD 02/28/2016 03/27/2016 Inactive alprazolam 0.5 mg tablet RxNorm: 380279 1 Tablet(s) PO Q8 as needed 02/24/2016 03/21/2016 Inactive glipizide 5 mg tablet RxNorm: 225932 1 Tablet(s) PO daily 01/18/2016 05/16/2016 Inactive Actos 15 mg tablet RxNorm: 140488 1 Tablet(s) PO daily 01/18/2016 02/16/2016 Inactive gabapentin 100 mg capsule RxNorm: 061660 1 Capsule(s) PO QHS 01/13/2016 03/12/2016 Inactive gabapentin 100 mg capsule RxNorm: 993905 1 Capsule(s) PO QHS 01/13/2016 01/12/2016 Inactive Bydureon 2 mg/0.65 mL subcutaneous pen injector RxNorm: 0289019 1 Milliliter(s) SQ QW 01/12/2016 01/11/2016 Inactive Bydureon 2 mg/0.65 mL subcutaneous pen injector RxNorm: 1471232 2/0.65ml Milligram(s) SQ QW 01/12/2016 05/16/2016 Inactive Bydureon 2 mg/0.65 mL subcutaneous pen injector RxNorm: 6724337 1 Milliliter(s) SQ QW 01/12/2016 01/11/2016 Inactive bumetanide 1 mg tablet RxNorm: 168151 TAKE ONE TABLET BY MOUTH TWICE DAILY 01/10/2016 04/08/2016 Inactive promethazine 25 mg tablet RxNorm: 178722 Tablet(s) Tablet(s) 1 Tablet(s) PO Q6-8H as needed 12/16/2015 04/13/2016 Inactive promethazine 25 mg tablet RxNorm: 871304 Tablet(s) 1 Tablet(s) PO Q6-8H as needed 12/10/2015 12/15/2015 Inactive Trulicity 0.75 mg/0.5 mL subcutaneous pen injector RxNorm: 1258662 INJECT ONE-HALF ML SUBCUTANEOUSLY ONCE A WEEK 12/10/2015 01/11/2016 Inactive glipizide 5 mg tablet RxNorm: 451364 1 Tablet(s) PO daily 12/10/2015 01/17/2016 Inactive bumetanide 1 mg tablet RxNorm: 735196 TAKE ONE TABLET BY MOUTH TWICE DAILY 12/10/2015 01/08/2016 Inactive promethazine 25 mg tablet RxNorm: 938852 Tablet(s) 1 Tablet(s) PO Q6-8H as needed 11/18/2015 12/09/2015 Inactive promethazine 25 mg tablet RxNorm: 538639 1 Tablet(s) PO Q6-8H as needed 11/16/2015 11/17/2015 Inactive glipizide 5 mg tablet RxNorm: 594995 1/2 Tablet(s) PO daily 11/16/2015 12/15/2015 Inactive promethazine 25 mg tablet RxNorm: 725860 Tablet(s) 1 Tablet(s) PO Q6-8H as needed 11/11/2015 12/10/2015 Inactive metoprolol tartrate 50 mg tablet RxNorm: 897165 1 Tablet(s) PO BID 11/11/2015 02/08/2016 Inactive Trulicity 0.75 mg/0.5 mL subcutaneous pen injector RxNorm: 9155554 .5 Milliliter(s) SQ QW 11/11/2015 01/11/2016 Inactive promethazine 25 mg tablet RxNorm: 781758 1 Tablet(s) PO Q6-8H as needed 10/28/2015 11/10/2015 Inactive nystatin 100,000 unit/gram topical cream RxNorm: 775468 1 Gram(s) TOP BID 10/27/2015 No Stop Date Active alprazolam 0.5 mg tablet RxNorm: 227993 1 Tablet(s) PO Q8 as needed 10/27/2015 03/29/2016 Inactive hydrocodone 7.5 mg-acetaminophen 325 mg tablet RxNorm: 558499 1 Tablet(s) PO Q4H as needed 10/27/2015 11/25/2015 Inactive Trulicity 0.75 mg/0.5 mL subcutaneous pen injector RxNorm: 3154373 .5 Milliliter(s) SQ QW 10/27/2015 11/10/2015 Inactive glipizide 5 mg tablet RxNorm: 530440 1 Tablet(s) PO daily 10/27/2015 11/25/2015 Inactive hydrocodone 7.5 mg-acetaminophen 325 mg tablet RxNorm: 341016 1 Tablet(s) PO Q4H as needed 10/26/2015 10/26/2015 Inactive alprazolam 0.5 mg tablet RxNorm: 310004 1 Tablet(s) PO PRN as needed 10/26/2015 10/26/2015 Inactive promethazine 25 mg tablet RxNorm: 605394 1 Tablet(s) PO Q6-8H as needed 10/26/2015 11/15/2015 Inactive glipizide 5 mg tablet RxNorm: 871957 1/2 Tablet(s) PO daily 10/13/2015 10/26/2015 Inactive cefdinir 300 mg capsule RxNorm: 500732 1 Capsule(s) PO BID 10/05/2015 10/14/2015 Inactive prednisone 20 mg tablet RxNorm: 603390 2 Tablet(s) PO daily 10/05/2015 10/09/2015 Inactive Diflucan 150 mg tablet RxNorm: 996460 1 Tablet(s) PO daily 10/05/2015 10/11/2015 Inactive Invokamet 50 mg-500 mg tablet RxNorm: 5132218 1 Tablet(s) PO daily 10/05/2015 11/03/2015 Inactive alprazolam 0.5 mg tablet RxNorm: 458441 1 Tablet(s) PO PRN as needed 10/01/2015 02/23/2016 Inactive promethazine 25 mg tablet RxNorm: 909486 1 Tablet(s) PO Q6-8H as needed 09/30/2015 10/25/2015 Inactive bumetanide 1 mg tablet RxNorm: 328347 TAKE ONE TABLET BY MOUTH TWICE DAILY 09/30/2015 10/29/2015 Inactive bumetanide 1 mg tablet RxNorm: 494877 TAKE ONE TABLET BY MOUTH TWICE DAILY 09/20/2015 12/18/2015 Inactive bumetanide 1 mg tablet RxNorm: 024932 1 Tablet(s) PO BID 09/20/2015 10/19/2015 Inactive metoprolol succinate ER 100 mg tablet,extended release 24 hr RxNorm: 989464 1 Tablet(s) PO daily 09/16/2015 03/13/2016 Inactive spironolactone 50 mg tablet RxNorm: 815843 1 Tablet(s) PO BID 09/16/2015 03/13/2016 Inactive alprazolam 0.5 mg tablet RxNorm: 724791 1 Tablet(s) PO PRN as needed 09/16/2015 10/25/2015 Inactive hydrocodone 7.5 mg-acetaminophen 325 mg tablet RxNorm: 701999 1 Tablet(s) PO Q4H as needed 09/16/2015 10/25/2015 Inactive Invokamet 50 mg-1,000 mg tablet RxNorm: 4469343 1 Tablet(s) PO daily 09/06/2015 09/05/2015 Inactive Invokamet 50 mg-1,000 mg tablet RxNorm: 6248267 1 Tablet(s) PO daily 09/06/2015 12/04/2015 Inactive promethazine 25 mg tablet RxNorm: 582657 TAKE ONE TABLET BY MOUTH EVERY 6 TO 8 HOURS NEEDED 09/01/2015 09/16/2015 Inactive promethazine 25 mg tablet RxNorm: 944156 1 Tablet(s) PO Q6-8H as needed 08/27/2015 09/25/2015 Inactive metoprolol succinate ER 100 mg tablet,extended release 24 hr RxNorm: 778613 1 Tablet(s) PO daily 08/20/2015 09/15/2015 Inactive bumetanide 1 mg tablet RxNorm: 538737 1 Tablet(s) PO BID 08/20/2015 09/18/2015 Inactive Bumex 1 mg tablet RxNorm: 717069 1 Tablet(s) PO BID 08/20/2015 11/15/2015 Inactive Kenalog 40 mg/mL suspension for injection RxNorm: 5481070 Milliliter(s) Inj 08/20/2015 08/20/2015 Inactive bumetanide 1 mg tablet RxNorm: 036075 1 Tablet(s) PO BID 08/20/2015 08/19/2015 Inactive Levaquin 500 mg tablet RxNorm: 012700 1 Tablet(s) PO daily 08/20/2015 08/26/2015 Inactive promethazine 25 mg tablet RxNorm: 940551 1 Tablet(s) PO Q6-8H as needed 08/06/2015 08/26/2015 Inactive metformin 500 mg tablet RxNorm: 691103 Tablet(s) PO 500mg in the morning and 1000mg at night No Start Date 09/16/2015 Inactive Lantus Solostar 100 unit/mL (3 mL) subcutaneous insulin pen RxNorm: 898121 Unit(s) SQ UD 10 units QHS x 5 days, if blood sugars are above 200 increase to 15 units x 5 days, if still 200 increase to 20 units. No Start Date 04/13/2016 Inactive alprazolam 0.5 mg tablet RxNorm: 251992 1 Tablet(s) PO PRN as needed No Start Date 09/15/2015 Inactive cyclobenzaprine 10 mg tablet RxNorm: 625728 1 Tablet(s) PO PRN as needed No Start Date 04/05/2016 Inactive lidocaine 4 % topical patch RxNorm: 7682346 1 Patch TOP on for 12 hours and off for 12 hours No Start Date 04/12/2016 Inactive metoprolol tartrate 50 mg tablet RxNorm: 714649 1 Tablet(s) PO BID No Start Date 11/10/2015 Inactive spironolactone 50 mg tablet RxNorm: 642765 1 Tablet(s) PO BID No Start Date 09/15/2015 Inactive hydrocodone 7.5 mg-acetaminophen 325 mg tablet RxNorm: 997085 1 Tablet(s) PO Q4H as needed No Start Date 09/15/2015 Inactive promethazine 25 mg tablet RxNorm: 047824 1 Tablet(s) PO PRN as needed No Start Date 08/05/2015 Inactive Medication Administered Medication Codes Instructions Start Date Status Kenalog 40 mg/mL suspension for injection RxNorm: 0475901 1Milliliter 04/06/2016 No longer Active Kenalog 40 mg/mL suspension for injection RxNorm: 8122202 1Milliliter 02/28/2016 No longer Active Kenalog 40 mg/mL suspension for injection RxNorm: 3029246 Milliliter 08/20/2015 No longer Active Immunizations Vaccine [...] Code Item Item Code Result Date %Hba1C Hww495 % HbA1c 34527- 6 11.1 % 2016 %Hba1C Sqa509 Gluc Ave 272 mg/dL 2016 C-Reactive Protein Qnt Crqnt CRP 4.7 mg/dl 2016 Comp Metabolic Cus245 NA 136 mEq/L 2016 Comp Metabolic Amy824 K 4.1 mEq/L 2016 Comp Metabolic Wob102 CL 96 mEq/L 2016 Comp Metabolic Hxy571 CO2 29.0 mEq/L 2016 Comp Metabolic Qvn198 ANION GAP 15 2016 Comp Metabolic Hha396 GLUCOSE 291 mg/dL 2016 Comp Metabolic Osx200 Creat 0.4 mg/dL 2016 Comp Metabolic Ihg622 eGFR 165 ml/min/1.73m2 2016 Comp Metabolic Oey328 BUN 11 mg/dL 2016 Comp Metabolic Srb887 B/C Ratio 25.0 Ratio 2016 Comp Metabolic Xay358 CALCIUM 9.4 mg/dL 2016 Comp Metabolic Dcr169 ALK PHOS 111 U/L 2016 Comp Metabolic Mrg383 AST(SGOT) 46 U/L 2016 Comp Metabolic Fox895 ALT(SGPT) 60 U/L 2016 Comp Metabolic Izr875 BILI T 0.4 mg/dL 2016 Comp Metabolic Xdc137 ALBUMIN 4.0 g/dL 2016 Comp Metabolic Eop724 TPRO 6.5 g/dL 2016 Comp Metabolic Fbt117 GLOB 2.6 g/dL 2016 Comp Metabolic Nkc057 A/G Ratio 1.5 Ratio 2016 Comp Metabolic Fji258 Osmo 282 mOsmo 2016 Cbc With Differential [...] 30.5 pg 2016 Cbc With Differential Ord2 [place]% 4.7 % 2016 Cbc With Differential Ord2 [...] 3.53 K/ul 2016 Cbc With Differential Ord2 [place] ABS# 0.7 K/ul 2016 Cbc With Differential Ord2 Eos ABS# 0.2 K/ul 2016 Cbc With Differential Ord2 Baso ABS# 0.1 K/ul 2016 Lipid Ord30 CHOL 228 mg/dL 05/05/2016 Lipid Ord30 HDL 42.0 mg/dl 05/05/2016 Lipid Ord30 TRIG 168 mg/dL 05/05/2016 Lipid Ord30 LDL 152 mg/dL 05/05/2016 Lipid Ord30 C/HDL 5.4 Ratio 05/05/2016 Comp Metabolic Tga300 NA 135 mEq/L 05/05/2016 Comp Metabolic Psk699 K 4.1 mEq/L 05/05/2016 Comp Metabolic Gup349 CL 99 mEq/L 05/05/2016 Comp Metabolic Ntq040 CO2 29.0 mEq/L 05/05/2016 Comp Metabolic Qyf028 ANION GAP 11 05/05/2016 Comp Metabolic Ezn534 GLUCOSE 229 mg/dL 05/05/2016 Comp Metabolic Hmp619 Creat 0.5 mg/dL 05/05/2016 Comp Metabolic Orf591 eGFR 150 ml/min/1.73m2 05/05/2016 Comp Metabolic Aig995 BUN 14 mg/dL 05/05/2016 Comp Metabolic Zfj258 B/C Ratio 29.2 Ratio 05/05/2016 Comp Metabolic Tni423 CALCIUM 9.1 mg/dL 05/05/2016 Comp Metabolic Kfj367 ALK PHOS 112 U/L 05/05/2016 Comp Metabolic Pqv339 AST(SGOT) 59 U/L 05/05/2016 Comp Metabolic Ozc578 ALT(SGPT) 63 U/L 05/05/2016 Comp Metabolic Vro657 BILI T 0.7 mg/dL 05/05/2016 Comp Metabolic Zqn081 ALBUMIN 3.8 g/dL 05/05/2016 Comp Metabolic Uup358 TPRO 6.5 g/dL 05/05/2016 Comp Metabolic Mrw710 GLOB 2.7 g/dL 05/05/2016 Comp Metabolic Rai343 A/G Ratio 1.4 Ratio 05/05/2016 Comp Metabolic Ttg828 Osmo 278 mOsmo 05/05/2016 Cbc With Differential [...] 30.2 pg 05/05/2016 Cbc With Differential Ord2 [place]% 4.4 % 05/05/2016 Cbc With Differential Ord2 [...] 3.59 K/ul 05/05/2016 Cbc With Differential Ord2 [place] ABS# 0.7 K/ul 05/05/2016 Cbc With Differential Ord2 Eos ABS# 0.1 K/ul 05/05/2016 Cbc With Differential Ord2 Baso ABS# 0.1 K/ul 05/05/2016 %Hba1C Ejs707 % HbA1c 83086- 6 10.4 % 05/05/2016 %Hba1C Rww804 Gluc Ave 252 mg/dL 05/05/2016 Hcg Beta Subunit Qual Serum 721384 B-HCG QUALITATIVE NEGATIVE 12/27/2015 GC/CHL PRB 4225072 Chl trach DNA Negative 12/25/2015 GC/CHL PRB 5109183 GC PROBE Negative 12/25/2015 Comp. Metabolic Panel (14) 81026 GLUCOSE 136 mg/dL 12/17/2015 Comp. Metabolic Panel (14) 58244 BUN 9 mg/dL 12/17/2015 Comp. Metabolic Panel (14) 30813 CREATININE 0.67 mg/dL 12/17/2015 Comp. Metabolic Panel (14) 35800 SODIUM 136 mmol/L 12/17/2015 Comp. Metabolic Panel (14) 84784 POTASSIUM 4.4 mmol/L 12/17/2015 Comp. Metabolic Panel (14) 91868 CHLORIDE 95 mmol/L 12/17/2015 Comp. Metabolic Panel (14) 71588 CARBON DIOXIDE 28 mmol/L 12/17/2015 Comp. Metabolic Panel (14) 88318 CALCIUM 10.1 mg/dL 12/17/2015 Comp. Metabolic Panel (14) 03107 TOTAL PROTEIN 7.0 g/dL 12/17/2015 Comp. Metabolic Panel (14) 16674 ALBUMIN 4.5 g/dL 12/17/2015 Comp. Metabolic Panel (14) 87825 ALKALINE PHOSPHATASE 87 U/L 12/17/2015 Comp. Metabolic Panel (14) 50571 TOTAL BILIRUBIN 0.5 mg/dL 12/17/2015 Comp. Metabolic Panel (14) 23768 SGOT (AST) 38 U/L 12/17/2015 Comp. Metabolic Panel (14) 83658 SGPT (ALT) 41 U/L 12/17/2015 Comp. Metabolic Panel (14) 39525 eGFR (mL/min/1.73m2) >60 12/17/2015 Comp. Metabolic Panel (14) 76513 12/17/2015 Cbc With Differential/Platelet 02404 WBC 16.67 thou/uL 12/17/2015 Cbc With Differential/Platelet 91377 RBC 5.11 mil/uL 12/17/2015 Cbc With Differential/Platelet 43149 HEMOGLOBIN 14.8 g/dL 12/17/2015 Cbc With Differential/Platelet 04614 HEMATOCRIT 48.7 % 12/17/2015 Cbc With Differential/Platelet 43017 MCV 95.4 fL 12/17/2015 Cbc With Differential/Platelet 47622 MCH 29.0 pg 12/17/2015 Cbc With Differential/Platelet 90127 MCHC 30.4 g/dL 12/17/2015 Cbc With Differential/Platelet 72934 RDW-CV 14.6 % 12/17/2015 Cbc With Differential/Platelet 36372 PLATELET COUNT 471 thou/uL 12/17/2015 Cbc With Differential/Platelet 30138 NEUTROPHIL % 71.3 % 12/17/2015 Cbc With Differential/Platelet 71105 LYMPHOCYTE % 22.4 % 12/17/2015 Cbc With Differential/Platelet 79994 MONOCYTE % 4.8 % 12/17/2015 Cbc With Differential/Platelet 05011 EOS % 0.7 % 12/17/2015 Cbc With Differential/Platelet 53684 BASO % 0.7 % 12/17/2015 Cbc With Differential/Platelet 67276 NEUTROPHIL ABS # 11.89 thou/uL 12/17/2015 Cbc With Differential/Platelet 61989 LYMPH ABS # 3.73 thou/uL 12/17/2015 Cbc With Differential/Platelet 51320 MONOCYTE ABS # 0.80 thou/uL 12/17/2015 Cbc With Differential/Platelet 07965 EOS ABS # 0.12 thou/uL 12/17/2015 Cbc With Differential/Platelet 45959 BASO ABS # 0.12 thou/uL 12/17/2015 Comp. [...] Hgb A1C With Eag Estimation GLYCOHEMOGLOBIN A1C 30409-1 8.1 % 11/13/2015 Hgb A1C With Eag Estimation ESTIMATED AVG GLUCOSE 186 mg/dL 11/13/2015 Comp. Metabolic Panel (14) 31880 GLUCOSE 84 mg/dL 09/11/2015 Comp. Metabolic Panel (14) 18607 BUN 11 mg/dL 09/11/2015 Comp. Metabolic Panel (14) 11629 CREATININE 0.56 mg/dL 09/11/2015 Comp. Metabolic Panel (14) 17883 SODIUM 142 mmol/L 09/11/2015 Comp. Metabolic Panel (14) 68432 POTASSIUM 4.3 mmol/L 09/11/2015 Comp. Metabolic Panel (14) 04578 CHLORIDE 98 mmol/L 09/11/2015 Comp. Metabolic Panel (14) 74859 CARBON DIOXIDE 27 mmol/L 09/11/2015 Comp. Metabolic Panel (14) 36508 CALCIUM 10.1 mg/dL 09/11/2015 Comp. Metabolic Panel (14) 12931 TOTAL PROTEIN 7.2 g/dL 09/11/2015 Comp. Metabolic Panel (14) 08160 ALBUMIN 4.7 g/dL 09/11/2015 Comp. Metabolic Panel (14) 37372 ALKALINE PHOSPHATASE 109 U/L 09/11/2015 Comp. Metabolic Panel (14) 02809 TOTAL BILIRUBIN 0.3 mg/dL 09/11/2015 Comp. Metabolic Panel (14) 62814 SGOT (AST) 53 U/L 09/11/2015 Comp. Metabolic Panel (14) 60455 SGPT (ALT) 53 U/L 09/11/2015 Comp. Metabolic Panel (14) 77552 eGFR (mL/min/1.73m2) >60 09/11/2015 Comp. Metabolic Panel (14) 17084 09/11/2015 Comp. Metabolic Panel (14) 54054 GLUCOSE 183 mg/dL 08/11/2015 Comp. Metabolic Panel (14) 74728 BUN 10 mg/dL 08/11/2015 Comp. Metabolic Panel (14) 67277 CREATININE 0.46 mg/dL 08/11/2015 Comp. Metabolic Panel (14) 59774 SODIUM 138 mmol/L 08/11/2015 Comp. Metabolic Panel (14) 54964 POTASSIUM 4.0 mmol/L 08/11/2015 Comp. Metabolic Panel (14) 43773 CHLORIDE 98 mmol/L 08/11/2015 Comp. Metabolic Panel (14) 23536 CARBON DIOXIDE 29 mmol/L 08/11/2015 Comp. Metabolic Panel (14) 51904 CALCIUM 9.4 mg/dL 08/11/2015 Comp. Metabolic Panel (14) 10490 TOTAL PROTEIN 6.8 g/dL 08/11/2015 Comp. Metabolic Panel (14) 31656 ALBUMIN 4.4 g/dL 08/11/2015 Comp. Metabolic Panel (14) 52293 ALKALINE PHOSPHATASE 118 U/L 08/11/2015 Comp. Metabolic Panel (14) 78572 TOTAL BILIRUBIN <0.3 mg/dL 08/11/2015 Comp. Metabolic Panel (14) 98934 SGOT (AST) 41 U/L 08/11/2015 Comp. Metabolic Panel (14) 36680 SGPT (ALT) 55 U/L 08/11/2015 Comp. Metabolic Panel (14) 47344 eGFR (mL/min/1.73m2) >60 08/11/2015 Comp. Metabolic Panel (14) 04317 08/11/2015 Cbc With Differential/Platelet 95245 WBC 11.76 thou/uL 08/11/2015 Cbc With Differential/Platelet 50342 RBC 4.98 mil/uL 08/11/2015 Cbc With Differential/Platelet 63457 HEMOGLOBIN 14.2 g/dL 08/11/2015 Cbc With Differential/Platelet 15504 HEMATOCRIT 46.7 % 08/11/2015 Cbc With Differential/Platelet 72799 MCV 93.8 fL 08/11/2015 Cbc With Differential/Platelet 26402 MCH 28.5 pg 08/11/2015 Cbc With Differential/Platelet 21386 MCHC 30.4 g/dL 08/11/2015 Cbc With Differential/Platelet 49310 RDW-CV 14.3 % 08/11/2015 Cbc With Differential/Platelet 94506 PLATELET COUNT 382 thou/uL 08/11/2015 Cbc With Differential/Platelet 50886 NEUTROPHIL % 67.3 % 08/11/2015 Cbc With Differential/Platelet 48417 LYMPHOCYTE % 24.0 % 08/11/2015 Cbc With Differential/Platelet 95647 MONOCYTE % 6.0 % 08/11/2015 Cbc With Differential/Platelet 29618 EOS % 1.6 % 08/11/2015 Cbc With Differential/Platelet 02371 BASO % 1.0 % 08/11/2015 Cbc With Differential/Platelet 24914 NEUTROPHIL ABS # 7.91 thou/uL 08/11/2015 Cbc With Differential/Platelet 85547 LYMPH ABS # 2.82 thou/uL 08/11/2015 Cbc With Differential/Platelet 46449 MONOCYTE ABS # 0.71 thou/uL 08/11/2015 Cbc With Differential/Platelet 41445 EOS ABS # 0.19 thou/uL 08/11/2015 Cbc With Differential/Platelet 71192 BASO ABS # 0.12 thou/uL 08/11/2015 Tsh 351304 TSH 3.220 uIU/mL 08/11/2015 Lipid Panel 71880 CHOLESTEROL 193 mg/dL 08/11/2015 Lipid Panel 83162 TRIGLYCERIDES 192 mg/dL 08/11/2015 Lipid Panel 23848 HDL 38 mg/dL 08/11/2015 Lipid Panel 87515 CHOLESTEROL/HDL 5.08 08/11/2015 Lipid Panel 09286 LDL (CALCULATED) 117 mg/dL 08/11/2015 Lipid Panel 61294 LDL/HDL 3.08 08/11/2015 Lipid Panel 86757 PHENOTYPE TYPE IV BORDERLINE 08/11/2015 Review of [...] Procedure Codes Date THER/PROPH/DIAG INJ SC/IM CPT-4: 57661Munmnaf 04/13/2016 Pneumococcal Polysaccharide Vaccine, 23-Valent, Ad CPT-4: 23484Gknwesn 04/13/2016 INJECT TRIGGER POINTS 3/> CPT-4: 79665Tsjndsj 04/06/2016 TRIAMCINOLONE ACET INJ NOS CPT-4: P3801Arhnciq 04/06/2016 IMMUNIZATION ADMIN CPT-4: 40835Iztxbru 03/30/2016 IIV4 FLU VACC NO PRESERV ID SNOMED CT: [id number] CPT-4: 32570Jlfufic 03/30/2016 TRIAMCINOLONE ACET INJ NOS CPT-4: H1008Gudidce 02/28/2016 THER/PROPH/DIAG INJ SC/IM CPT-4: 85768Pfhhrzc 02/28/2016 TRIAMCINOLONE ACET INJ NOS CPT-4: W4723Ajccxtg 08/20/2015 Vital Signs Date Vital 10/30/2016 Blood Pressure 1: 124/78 Code: 8480-6 BMI: 49.1 Code: 10188-8 Heart Rate 1: 90 bpm Height: 4'11" SpO2: 97% Weight: 243 lbs 10/09/2016 Blood Pressure 1: 124/80 Code: 8480-6 BMI: 49.3 Code: 71870-2 Heart Rate 1: 91 bpm Height: 4'11" SpO2: 98% Weight: 244 lbs 09/12/2016 Blood Pressure 1: 128/80 Code: 8480-6 BMI: 49.1 Code: 42626-5 Heart Rate 1: 94 bpm Height: 4'11" SpO2: 95% Weight: 243 lbs 09/05/2016 Blood Pressure 1: 118/74 Code: 8480-6 BMI: 49.1 Code: 21099-9 Heart Rate 1: 100 bpm Height: 4'11" SpO2: 97% Weight: 243 lbs 06/16/2016 Blood Pressure 1: 120/62 Code: 8480-6 BMI: 49.1 Code: 25325-0 Heart Rate 1: 100 bpm Height: 4'11" SpO2: 96% Temperature: 36.7 (C) / 98.0 (F) Weight: 243 lbs 06/13/2016 Blood Pressure 1: 120/70 Code: 8480-6 Heart Rate 1: 117 bpm SpO2: 97% 05/19/2016 Blood Pressure 1: 130/64 Code: 8480-6 BMI: 49.1 Code: 91900-3 Heart Rate 1: 101 bpm Height: 4'11" SpO2: 96% Weight: 243 lbs 05/08/2016 Blood Pressure 1: 128/76 Code: 8480-6 Heart Rate 1: 119 bpm Height: SpO2: 97% Weight: 05/05/2016 Blood Pressure 1: 12476 Code: 8480-6 BMI: 49.1 Code: 98961-7 Heart Rate 1: 75 bpm Height: 4'11" SpO2: 99% Weight: 243 lbs 04/10/2016 Blood Pressure 1: 140/80 Code: 8480-6 BMI: 49.7 Code: 29004-8 Heart Rate 1: 88 bpm Height: 4'11" SpO2: 95% Weight: 246 lbs 04/06/2016 Blood Pressure 1: 134/82 Code: 8480-6 BMI: 75.1 Code: 41294-7 Heart Rate 1: 72 bpm Height: 4' SpO2: 96% Weight: 246 lbs 03/08/2016 Blood Pressure 1: 126/72 Code: 8480-6 BMI: 49.7 Code: 16452-5 Heart Rate 1: 89 bpm Height: 4'11" SpO2: 97% Weight: 246 lbs 02/28/2016 Blood Pressure 1: 124/68 Code: 8480-6 BMI: 49.7 Code: 37373-7 Heart Rate 1: 89 bpm Height: 4'11" SpO2: 96% Weight: 246 lbs 01/18/2016 Blood Pressure 1: 142/78 Code: 8480-6 BMI: 48.9 Code: 66593-5 Heart Rate 1: 97 bpm Height: 4'11" SpO2: 97% Weight: 242 lbs 12/23/2015 Blood Pressure 1: 124/74 Code: 8480-6 BMI: 48.9 Code: 38101-5 Heart Rate 1: 106 bpm Height: 4'11" SpO2: 96% Weight: 242 lbs 12/16/2015 Blood Pressure 1: 116/82 Code: 8480-6 BMI: 48.3 Code: 33004-6 Heart Rate 1: 111 bpm Height: 4'11" SpO2: 97% Weight: 239 lbs 11/11/2015 Blood Pressure 1: 130/80 Code: 8480-6 BMI: 49.7 Code: 77107-2 Heart Rate 1: 105 bpm Height: 4'11" SpO2: 96% Weight: 246 lbs 10/27/2015 Blood Pressure 1: 122/70 Code: 8480-6 BMI: 49.5 Code: 44871-5 Heart Rate 1: 107 bpm Height: 4'11" SpO2: 96% Weight: 245 lbs 10/13/2015 Blood Pressure 1: 140/82 Code: 8480-6 BMI: 50.9 Code: 43795-7 Heart Rate 1: 111 bpm Height: 4'11" SpO2: 96% Weight: 252 lbs 10/05/2015 Blood Pressure 1: 118/70 Code: 8480-6 BMI: 51.1 Code: 59566-4 Heart Rate 1: 120 bpm Height: 4'11" SpO2: 97% Weight: 253 lbs 09/01/2015 Blood Pressure 1: 132/82 Code: 8480-6 BMI: 50.1 Code: 26434-7 Heart Rate 1: 110 bpm Height: 4'11" SpO2: 96% Weight: 248 lbs 08/20/2015 Blood Pressure 1: 132/78 Code: 8480-6 BMI: 51.7 Code: 99089-4 Heart Rate 1: 100 bpm Height: 4'11" Weight: 256 lbs 08/03/2015 Blood Pressure 1: 148/92 Code: 8480-6 BMI: 52.1 Code: 30206-1 Heart Rate 1: 100 bpm Height: 4'11" [...] data Encounters Encounter Performer Location Codes Date 84816 EST. PATIENT, LEVEL IV Diagnosis: Candidiasis of vulva and vagina[ICD10: B37.3] Diagnosis: Type 2 diabetes mellitus with hyperglycemia[ICD10: E11.65] Gloria Hess MD, [facility] CPT-4: 27730 10/30/2016 39301 EST. PATIENT, LEVEL III Diagnosis: Candidiasis of vulva and vagina[ICD10: B37.3] Diagnosis: Type 2 diabetes mellitus with hyperglycemia[ICD10: E11.65] Gloria Hess MD, [facility] CPT-4: 27022 10/09/2016 45918 EST. PATIENT, LEVEL IV Diagnosis: Umbilical hernia without obstruction or gangrene[ICD10: K42.9] Gloria Hess MD, [facility] CPT-4: 09422 09/12/2016 94541 EST. PATIENT, LEVEL III Diagnosis: Epigastric pain[ICD10: R10.13] Diagnosis: Candidiasis of vulva and vagina[ICD10: B37.3] Diagnosis: Type 2 diabetes mellitus with hyperglycemia[ICD10: E11.65] Gloria Hess MD, [facility] CPT-4: 96871 09/05/2016 49229 EST. PATIENT, LEVEL III Diagnosis: Acute laryngopharyngitis[ICD10: J06.0] Diagnosis: Other allergic rhinitis[ICD10: J30.89] Gloria Hess MD, [facility] CPT- 4: 62266 06/16/2016 82155 EST. PATIENT, LEVEL III Diagnosis: Type 2 diabetes mellitus with hyperglycemia[ICD10: E11.65] Diagnosis: Other obesity due to excess calories[ICD10: E66.09] Gloria Hess MD, [facility] CPT-4: 91562 06/13/2016 43675 EST. PATIENT, LEVEL III Diagnosis: Type 2 diabetes mellitus with hyperglycemia[ICD10: E11.65] Diagnosis: Other obesity due to excess calories[ICD10: E66.09] Gloria Hess MD, [facility] CPT-4: 82672 05/19/2016 45611 EST. PATIENT, LEVEL III Diagnosis: Type 2 diabetes mellitus with hyperglycemia[ICD10: E11.65] Diagnosis: Other obesity due to excess calories[ICD10: E66.09] Gloria Hess MD, [facility] CPT-4: 45956 05/08/2016 86227 EST. PATIENT, LEVEL III Diagnosis: Type 2 diabetes mellitus without complications[ICD10: E11.9] Gloria Hess MD, [facility] CPT-4: 20161 05/05/2016 97967 EST. PATIENT, LEVEL III Diagnosis: Pain in right shoulder[ICD10: M25.511] Gloria Hess MD, [facility] CPT- 4: 35721 04/10/2016 73552 EST. PATIENT, LEVEL III Diagnosis: Pain in right shoulder[ICD10: M25.511] Diagnosis: Other muscle spasm[ICD10: M62.838] Diagnosis: Type 2 diabetes mellitus without complications[ICD10: E11.9] Gloria Hess MD, [facility] CPT-4: 47274 04/06/2016 91541 EST. PATIENT, LEVEL IV Diagnosis: Acute bronchitis due to other specified organisms[ICD10: J20.8] Diagnosis: Other acute sinusitis[ICD10: J01.80] Diagnosis: Acne vulgaris[ICD10: L70.0] Diagnosis: Morbid (severe) obesity due to excess calories[ICD10: E66.01] Gloria Hess MD, [facility] CPT-4: 11328 03/08/2016 00321 EST. PATIENT, LEVEL IV Diagnosis: Other acute sinusitis[ICD10: J01.80] Diagnosis: Localized enlarged lymph nodes[ICD10: R59.0] Gloria Hess MD, [facility] CPT-4: 12665 02/28/2016 75843 EST. PATIENT, LEVEL III Diagnosis: Type 2 diabetes mellitus without complications[ICD10: E11.9] Gloria Hess MD, [facility] CPT-4: 18828 01/18/2016 (51591) PREV VISIT EST AGE 40-64 Diagnosis: Encounter for gynecological examination (general) (routine) without abnormal findings[ICD10: Z01.419] Diagnosis: Excessive and frequent menstruation with irregular cycle[ICD10: N92.1] Gloria Hess MD, [facility] CPT-4: 07817 12/23/2015 85337 EST. PATIENT, LEVEL III Diagnosis: Type 2 diabetes mellitus without complications[ICD10: E11.9] Gloria Hess MD, [facility] CPT-4: 13952 12/16/2015 61415 EST. PATIENT, LEVEL III Diagnosis: Type 2 diabetes mellitus without complications[ICD10: E11.9] Diagnosis: Other obesity due to excess calories[ICD10: E66.09] Gloria Hess MD, [facility] CPT-4: 56232 11/11/2015 19972 EST. PATIENT, LEVEL III Diagnosis: Type 2 diabetes mellitus without complications[ICD10: E11.9] Diagnosis: Other obesity due to excess calories[ICD10: E66.09] Gloria Hess MD, [facility] CPT-4: 58215 10/27/2015 68539 EST. PATIENT, LEVEL III Diagnosis: Type 2 diabetes mellitus without complications[ICD10: E11.9] Diagnosis: Other obesity due to excess calories[ICD10: E66.09] Diagnosis: Other insomnia[ICD10: G47.09] Gloria Hess MD, [facility] CPT-4: 71247 10/13/2015 75235 EST. PATIENT, LEVEL IV Diagnosis: Acute recurrent maxillary sinusitis[ICD10: J01.01] Diagnosis: Allergic rhinitis due to pollen[ICD10: J30.1] Diagnosis: Other obesity due to excess calories[ICD10: E66.09] Gloria Hess MD, [facility] CPT-4: 24234 10/05/2015 66379 EST. PATIENT, LEVEL IV Diagnosis: Polycystic ovarian syndrome[ICD10: E28.2] Diagnosis: Other skin changes[ICD10: R23.8] Diagnosis: Other abnormal glucose[ICD10: R73.09] [facility] CPT- 4: 14804 09/01/2015 74577 EST. PATIENT, LEVEL IV Diagnosis: Acute recurrent maxillary sinusitis[ICD10: J01.01] Diagnosis: Morbid (severe) obesity due to excess calories[ICD10: E66.01] Diagnosis: Essential (primary) hypertension[ICD10: I10] Diagnosis: Allergic rhinitis due to pollen[ICD10: J30.1] [facility] CPT-4: 19575 08/20/2015 (47185) OFFICE VISIT, NEW - LEVEL 4 Diagnosis: Essential (primary) hypertension[ICD10: I10] Diagnosis: Obstructive sleep apnea (adult) (pediatric)[ICD10: G47.33] Diagnosis: Other insomnia[ICD10: G47.09] Diagnosis: Snoring[ICD10: R06.83] Diagnosis: Morbid (severe) obesity due to excess calories[ICD10: E66.01] [facility] CPT-4: 43786 08/03/2015 Plan of Care Planned Activity Notes Codes Status Date Visit Plan: Vaginal candidiasis - will send RX - pt is to notify clinic if symptoms do not improve, if they worsen, or with any questions or concerns. Diabetes Mellitus - Uncontrolled - Will refer to barrel cleaner - I have recommended for the patient [...] Mellitus - Uncontrolled - Will refer to barrel cleaner - I have recommended for the patient [...] control. 10/09/2016 Appointment: Gloria Scott WPtel: [facility]5 [facility] (30 min) Complex 10/09/2016 Patient Education: Patient Medication Summary Completed 10/09/2016 Patient Education: Obesity Completed 10/09/2016 Referral: Roni Roberts Referral Completed 09/18/2016 Care Plan: CT ABD & PELV W/CONTRAST LOINC : 05598-1 Pending 09/13/2016 Care Plan: Referral Order SNOMED-CT : [id number] Pending 09/13/2016 Visit Plan: Ongoing abdominal pain/hernia - will send RX - will refer - pt is to notify clinic if symptoms do not improve, if they worsen, or with any questions or concerns. 09/12/2016 Appointment: Gloria Scott WPtel: [facility]5 [facility] (30 min) Complex 09/12/2016 Patient Education: Patient Medication Summary Completed 09/12/2016 Patient Education: Obesity Completed 09/12/2016 Care Plan: Referral Order SNOMED-CT : 266069050 Pending 09/12/2016 Visit Plan: Ongoing abdominal/epigastric pain [...] control. 09/05/2016 [facility]ment: [phone] [facility] (30 min) Complex 09/05/2016 Patient Education: [...] spray. 06/16/2016 Appointment: [phone] [facility] (10 min) Simple 06/16/2016 Patient Education: [...] weight check. 06/13/2016 Appointment: Gloria Scott WPtel: [facility]5 [facility] (30 min) Complex 06/13/2016 Patient Education: Patient Medication Summary Completed 06/13/2016 Patient Education: Obesity Completed 06/13/2016 Appointment: Gloria Scott WPtel: [facility]5 [facility] (30 min) Complex 06/08/2016 Visit Plan: Diabetes [...] weight check. 05/19/2016 Appointment: Tamy Lugo WPtel: [facility]5 [phone] (30 min) Complex 05/19/2016 Patient Education: Patient [...] weight check. 05/08/2016 Appointment: Gloria Scott WPtel: [facility]5 [facility] (15 min) Moderate 05/08/2016 Patient Education: Patient [...] the morning. 05/05/2016 Appointment: Tamy Lugo WPtel: [facility]5 [phone] (15 min) Moderate 05/05/2016 Patient Education: Patient Medication Summary Completed 05/05/2016 Patient Education: Obesity Completed 05/05/2016 Care Plan: Comp Metabolic Pending 05/05/2016 Appointment: Jocelyn Hess WPtel: [facility]5 [facility] Surgical Procedure 04/17/2016 Appointment: Injection 04/13/2016 Patient Education: Patient Medication Summary Completed 04/13/2016 Visit Plan: Right shoulder pain - will refer to PT - The pt is to use prn antiinflammatories to manage acute pain. The patient is to call the office if the pain is worsening or does not improve. 04/10/2016 Appointment: Gloria Scott WPtel: [facility]5 [facility] (30 min) Complex 04/10/2016 Patient Education: Patient [...] glucose control. 04/06/2016 Appointment: Gloria Scott WPtel: [facility] [place] (15 min) Moderate 04/06/2016 Patient Education: [...] US 02/28/2016 Appointment: [facility]Ptel[facility] [phone] [facility] (30 min) Complex 02/28/2016 Patient Education: Patient Medication Summary Completed 02/28/2016 Patient Education: Obesity Completed 02/28/2016 Appointment: [facility]Ptel[facility] [phone] [facility] (15 min) Moderate 01/31/2016 Visit Plan: [...] prn. 12/23/2015 Appointment: [facility]el[phone] [facility] [facility] 12/23/2015 Patient Education: Patient [...] %Hba1C ADD TO BLOOD IN THE LAB. [facility] : 70973-0 Pending 08/13/2015 Visit Plan: Hypertension - uncontrolled [...] Mellitus - Uncontrolled - Will refer to barrel cleaner - I have recommended for the patient [...] Mellitus - Uncontrolled - Will refer to barrel cleaner - I have recommended for the patient [...]
--- OUTSIDE RECORDS SUMMARY | 2018-12-17 03:06 | XMS REPORT | CCD ---
Author Author [facility] Address [address] [place] [address] Phone Care Team Providers Care Food General Manager Name Role Phone PP Unavailable CCM Unavailable Summary Purpose Interface Exchange Insurance Providers Payer name Policy type / Coverage type Covered libertarian ID Effective Begin Date Effective End Date [facility] Commercial Insurance [id number] Unknown Unknown Family history Father Diagnosis Age At Onset Hypertension Unknown Arthritis Unknown Mother Diagnosis Age At Onset Arthritis Unknown Hyperlipidemia Unknown Daughter Diagnosis Age At Onset Asthma Unknown Social History Social History Element Codes Description Effective Dates Marital status Unknown Darin 08/03/2015 Number of children Unknown 1 08/03/[address]: 0242389 Quit less than 5 years ago 08/03/2015 [...] Start Date Stop Date Status Fill Instructions bumetanide 1 mg tablet RxNorm: 231024 TAKE ONE TABLET BY MOUTH TWICE DAILY 12/17/2016 01/15/2017 Active promethazine 25 mg tablet RxNorm: 427172 Tablet(s) TAKE ONE TABLET BY MOUTH EVERY 6 TO 8 HOURS NEEDED 11/16/2016 12/15/2016 Inactive cyclobenzaprine 10 mg tablet RxNorm: 239379 TAKE ONE TABLET BY MOUTH NEEDED 11/15/2016 12/04/2016 Inactive spironolactone 50 mg tablet RxNorm: 998720 TAKE ONE TABLET BY MOUTH TWICE DAILY 11/15/2016 05/13/2017 Active Basaglar KwikPen 100 unit/mL (3 mL) subcutaneous RxNorm: 4149743 Unit(s) INJECT 35 UNITS IN THE MORNING AND 50 UNITS IN THE EVENING SUBCUTANEOUSLY 11/15/2016 03/14/2017 Active lidocaine 5 % topical patch RxNorm: 4303097 1 Patch TOP daily . 12 HOURS ON, 12 HOURS OFF 11/15/2016 12/04/2016 Inactive lidocaine 4 % topical patch RxNorm: 2968648 1 Patch TOP on for 12 hours and off for 12 hours 11/14/2016 11/14/2016 Inactive promethazine 25 mg tablet RxNorm: 122641 TAKE ONE TABLET BY MOUTH EVERY 6 TO 8 HOURS NEEDED 11/14/2016 11/15/2016 Inactive Basaglar KwikPen 100 unit/mL (3 mL) subcutaneous RxNorm: 6014326 INJECT 35 UNITS IN THE MORNING AND 50 UNITS IN THE EVENING SUBCUTANEOUSLY 11/14/2016 11/14/2016 Inactive cyclobenzaprine 10 mg tablet RxNorm: 231779 TAKE ONE TABLET BY MOUTH NEEDED 11/14/2016 11/14/2016 Inactive spironolactone 50 mg tablet RxNorm: 834542 TAKE ONE TABLET BY MOUTH TWICE DAILY 11/14/2016 11/14/2016 Inactive hydrocodone 7.5 mg-acetaminophen 325 mg tablet RxNorm: 658143 1 Tablet(s) PO Q4H as needed 10/30/2016 11/28/2016 Inactive Humalog KwikPen 200 unit/mL (3 mL) subcutaneous RxNorm: 6759835 35 Unit(s) SQ AC 10/30/2016 No Stop Date Active QS 30 day supply Diflucan 150 mg tablet RxNorm: 156830 1 Tablet(s) PO as needed prophylactic after sexual intercourse 10/30/2016 No Stop Date Active clotrimazole 100 mg vaginal tablet RxNorm: 976477 1 Tablet(s) VAG QW 10/30/2016 11/28/2016 Inactive Bydureon 2 mg/0.65 mL subcutaneous pen injector RxNorm: 5278057 2 Milligram(s) SQ QW 10/30/2016 11/28/2016 Inactive Basaglar KwikPen 100 unit/mL (3 mL) subcutaneous RxNorm: 0847352 Unit(s) SQ 35 units in the morning and 50 units in the evening 10/30/2016 11/13/2016 Inactive QS 30 day supply cyclobenzaprine 10 mg tablet RxNorm: 490476 TAKE ONE TABLET BY MOUTH NEEDED 10/27/2016 11/05/2016 Inactive Diflucan 150 mg tablet RxNorm: 630826 1 Tablet(s) PO daily x 7 days then once a week 10/27/2016 10/29/2016 Inactive promethazine 25 mg tablet RxNorm: 065552 TAKE ONE TABLET BY MOUTH EVERY 6 TO 8 HOURS NEEDED 10/27/2016 11/10/2016 Inactive Diflucan 150 mg tablet RxNorm: 914534 1 Tablet(s) PO daily x 7 days then once a week 10/09/2016 10/15/2016 Inactive Diflucan 150 mg tablet RxNorm: 035762 1 Tablet(s) PO daily 09/20/2016 09/26/2016 Inactive Cipro 500 mg tablet RxNorm: 114807 1 Tablet(s) PO BID 09/12/2016 09/21/2016 Inactive Flagyl 500 mg tablet RxNorm: 772901 1 Tablet(s) PO TID 09/12/2016 09/21/2016 Inactive Diflucan 150 mg tablet RxNorm: 087113 1 Tablet(s) PO daily 09/06/2016 09/12/2016 Inactive hydrocodone 7.5 mg-acetaminophen 325 mg tablet RxNorm: 704599 1 Tablet(s) PO Q4H as needed 07/12/2016 08/10/2016 Inactive Xopenex 1.25 mg/3 mL solution for nebulization RxNorm: 836409 3 Milliliter(s) INH TID 06/16/2016 No Stop Date Active cefdinir 300 mg capsule RxNorm: 642368 1 Capsule(s) PO BID 06/16/2016 06/25/2016 Inactive Mobic 7.5 mg tablet RxNorm: 570904 1 Tablet(s) PO daily 06/16/2016 06/25/2016 Inactive Levaquin 500 mg tablet RxNorm: 070995 1 Tablet(s) PO daily 06/16/2016 06/22/2016 Inactive cyclobenzaprine 10 mg tablet RxNorm: 853556 1 Tablet(s) PO PRN as needed 06/14/2016 06/23/2016 Inactive promethazine 25 mg tablet RxNorm: 436622 TAKE ONE TABLET BY MOUTH EVERY 6 TO 8 HOURS NEEDED 06/14/2016 06/28/2016 Inactive Xopenex HFA 45 mcg/actuation aerosol inhaler RxNorm: 572834 1 Puff(s) INH PRN 06/14/2016 07/15/2016 Inactive pen needle, diabetic 32 gauge x 5/16" RxNorm: 1 use Miscellaneous AC & HS 06/13/2016 No Stop Date Active QS 30 day supply Humalog KwikPen 200 unit/mL (3 mL) subcutaneous RxNorm: 3744595 10 Unit(s) SQ AC 06/13/2016 10/29/2016 Inactive QS 30 day supply Basaglar KwikPen 100 unit/mL (3 mL) subcutaneous RxNorm: 6018992 22 units in the morning and 35 in the evening. Unit(s) SQ 06/13/2016 10/29/2016 Inactive QS 30 day supply Tivorbex 20 mg capsule RxNorm: 2355765 1 Capsule(s) PO TID as needed 06/13/2016 06/13/2016 Inactive metoprolol succinate ER 100 mg tablet,extended release 24 hr RxNorm: 407529 TAKE ONE TABLET BY MOUTH ONCE DAILY 06/13/2016 10/10/2016 Inactive hydrocodone 7.5 mg-acetaminophen 325 mg tablet RxNorm: 386380 1 Tablet(s) PO Q4H as needed 06/13/2016 07/11/2016 Inactive Voltaren 1 % topical gel RxNorm: 065066 APPLY TOPICALLY TO AFFECTED AREA TWICE DAILY 05/30/2016 07/08/2016 Inactive alprazolam 0.5 mg tablet RxNorm: 625626 1 Tablet(s) PO Q8 as needed 05/19/2016 No Stop Date Active cyclobenzaprine 10 mg tablet RxNorm: 944951 1 Tablet(s) PO PRN as needed 05/19/2016 05/28/2016 Inactive bumetanide 1 mg tablet RxNorm: 495853 TAKE ONE TABLET BY MOUTH TWICE DAILY 05/19/2016 06/17/2016 Inactive Sprintec (28) 0.25 mg-35 mcg tablet RxNorm: 916505 1 Tablet(s) PO UD 05/08/2016 No Stop Date Active Lantus Solostar 100 unit/mL (3 mL) subcutaneous insulin pen RxNorm: 671711 Unit(s) SQ UD 15units qam 30 units qhs 05/08/2016 No Stop Date Active Humalog KwikPen 200 unit/mL (3 mL) subcutaneous RxNorm: 2116717 10 Unit(s) SQ AC 05/08/2016 06/12/2016 Inactive bumetanide 1 mg tablet RxNorm: 516012 TAKE ONE TABLET BY MOUTH TWICE DAILY 04/28/2016 05/18/2016 Inactive Voltaren 1 % topical gel RxNorm: 318723 1 Application TOP BID 04/28/2016 05/07/2016 Inactive cyclobenzaprine 10 mg tablet RxNorm: 134686 1 Tablet(s) PO PRN as needed 04/28/2016 05/07/2016 Inactive hydrocodone 7.5 mg-acetaminophen 325 mg tablet RxNorm: 614362 1 Tablet(s) PO Q4H as needed 04/18/2016 05/16/2016 Inactive Lantus Solostar 100 unit/mL (3 mL) subcutaneous insulin pen RxNorm: 878476 Unit(s) SQ UD 10 units QHS x5 days, if sugars are over 200 increase to 15 units x 5 days, if sugars over 200 increase to 20 units. 04/14/2016 05/07/2016 Inactive lidocaine 4 % topical patch RxNorm: 2637429 1 Patch TOP on for 12 hours and off for 12 hours 04/13/2016 11/13/2016 Inactive Voltaren 1 % topical gel RxNorm: 326832 1 Application TOP BID 04/10/2016 04/27/2016 Inactive metformin ER 500 mg 24 hr tablet,extended release RxNorm: 077709 1 Tablet(s) PO daily 04/06/2016 05/05/2016 Inactive Kenalog 40 mg/mL suspension for injection RxNorm: 2079179 1 Milliliter(s) Inj 04/06/2016 04/06/2016 Inactive cyclobenzaprine 10 mg tablet RxNorm: 545878 1 Tablet(s) PO PRN as needed 04/06/2016 04/27/2016 Inactive WelChol 3.75 gram oral powder packet RxNorm: 138563 1 packet PO daily 04/06/2016 07/04/2016 Inactive alprazolam 0.5 mg tablet RxNorm: 317034 1 Tablet(s) PO Q8 as needed 03/30/2016 No Stop Date Active Levaquin 500 mg tablet RxNorm: 883709 1 Tablet(s) PO daily 03/30/2016 04/05/2016 Inactive metoprolol succinate ER 100 mg tablet,extended release 24 hr RxNorm: 088342 TAKE ONE TABLET BY MOUTH ONCE DAILY 03/16/2016 06/12/2016 Inactive Levaquin 500 mg tablet RxNorm: 201344 1 Tablet(s) PO daily 03/08/2016 03/14/2016 Inactive prednisone 20 mg tablet RxNorm: 134784 2 Tablet(s) PO daily 03/08/2016 03/12/2016 Inactive Phenergan with Codeine Syrup RxNorm: 5-10 ML PO QID as needed cough 02/28/2016 No Stop Date Active Xopenex HFA 45 mcg/actuation aerosol inhaler RxNorm: 721280 1 Puff(s) INH PRN 02/28/2016 06/13/2016 Inactive Kenalog 40 mg/mL suspension for injection RxNorm: 9075096 1 Milliliter(s) Inj 02/28/2016 02/28/2016 Inactive Zithromax Z-Rashid 250 mg tablet RxNorm: 472892 1 Tablet(s) PO UD 02/28/2016 03/27/2016 Inactive alprazolam 0.5 mg tablet RxNorm: 246203 1 Tablet(s) PO Q8 as needed 02/24/2016 03/21/2016 Inactive glipizide 5 mg tablet RxNorm: 909520 1 Tablet(s) PO daily 01/18/2016 05/16/2016 Inactive Actos 15 mg tablet RxNorm: 170678 1 Tablet(s) PO daily 01/18/2016 02/16/2016 Inactive gabapentin 100 mg capsule RxNorm: 193722 1 Capsule(s) PO QHS 01/13/2016 03/12/2016 Inactive gabapentin 100 mg capsule RxNorm: 361713 1 Capsule(s) PO QHS 01/13/2016 01/12/2016 Inactive Bydureon 2 mg/0.65 mL subcutaneous pen injector RxNorm: 7732858 1 Milliliter(s) SQ QW 01/12/2016 01/11/2016 Inactive Bydureon 2 mg/0.65 mL subcutaneous pen injector RxNorm: 8873356 2/0.65ml Milligram(s) SQ QW 01/12/2016 05/16/2016 Inactive Bydureon 2 mg/0.65 mL subcutaneous pen injector RxNorm: 0256021 1 Milliliter(s) SQ QW 01/12/2016 01/11/2016 Inactive bumetanide 1 mg tablet RxNorm: 607254 TAKE ONE TABLET BY MOUTH TWICE DAILY 01/10/2016 04/08/2016 Inactive promethazine 25 mg tablet RxNorm: 389721 Tablet(s) Tablet(s) 1 Tablet(s) PO Q6-8H as needed 12/16/2015 04/13/2016 Inactive promethazine 25 mg tablet RxNorm: 802358 Tablet(s) 1 Tablet(s) PO Q6-8H as needed 12/10/2015 12/15/2015 Inactive Trulicity 0.75 mg/0.5 mL subcutaneous pen injector RxNorm: 3200305 INJECT ONE-HALF ML SUBCUTANEOUSLY ONCE A WEEK 12/10/2015 01/11/2016 Inactive glipizide 5 mg tablet RxNorm: 742557 1 Tablet(s) PO daily 12/10/2015 01/17/2016 Inactive bumetanide 1 mg tablet RxNorm: 974631 TAKE ONE TABLET BY MOUTH TWICE DAILY 12/10/2015 01/08/2016 Inactive promethazine 25 mg tablet RxNorm: 519341 Tablet(s) 1 Tablet(s) PO Q6-8H as needed 11/18/2015 12/09/2015 Inactive promethazine 25 mg tablet RxNorm: 397035 1 Tablet(s) PO Q6-8H as needed 11/16/2015 11/17/2015 Inactive glipizide 5 mg tablet RxNorm: 224092 1/2 Tablet(s) PO daily 11/16/2015 12/15/2015 Inactive promethazine 25 mg tablet RxNorm: 907866 Tablet(s) 1 Tablet(s) PO Q6-8H as needed 11/11/2015 12/10/2015 Inactive metoprolol tartrate 50 mg tablet RxNorm: 740753 1 Tablet(s) PO BID 11/11/2015 02/08/2016 Inactive Trulicity 0.75 mg/0.5 mL subcutaneous pen injector RxNorm: 1652839 .5 Milliliter(s) SQ QW 11/11/2015 01/11/2016 Inactive promethazine 25 mg tablet RxNorm: 873444 1 Tablet(s) PO Q6-8H as needed 10/28/2015 11/10/2015 Inactive nystatin 100,000 unit/gram topical cream RxNorm: 237263 1 Gram(s) TOP BID 10/27/2015 No Stop Date Active alprazolam 0.5 mg tablet RxNorm: 001823 1 Tablet(s) PO Q8 as needed 10/27/2015 03/29/2016 Inactive hydrocodone 7.5 mg-acetaminophen 325 mg tablet RxNorm: 018281 1 Tablet(s) PO Q4H as needed 10/27/2015 11/25/2015 Inactive Trulicity 0.75 mg/0.5 mL subcutaneous pen injector RxNorm: 6009052 .5 Milliliter(s) SQ QW 10/27/2015 11/10/2015 Inactive glipizide 5 mg tablet RxNorm: 592062 1 Tablet(s) PO daily 10/27/2015 11/25/2015 Inactive hydrocodone 7.5 mg-acetaminophen 325 mg tablet RxNorm: 960498 1 Tablet(s) PO Q4H as needed 10/26/2015 10/26/2015 Inactive alprazolam 0.5 mg tablet RxNorm: 614417 1 Tablet(s) PO PRN as needed 10/26/2015 10/26/2015 Inactive promethazine 25 mg tablet RxNorm: 160167 1 Tablet(s) PO Q6-8H as needed 10/26/2015 11/15/2015 Inactive glipizide 5 mg tablet RxNorm: 688023 1/2 Tablet(s) PO daily 10/13/2015 10/26/2015 Inactive cefdinir 300 mg capsule RxNorm: 154884 1 Capsule(s) PO BID 10/05/2015 10/14/2015 Inactive prednisone 20 mg tablet RxNorm: 793516 2 Tablet(s) PO daily 10/05/2015 10/09/2015 Inactive Diflucan 150 mg tablet RxNorm: 078922 1 Tablet(s) PO daily 10/05/2015 10/11/2015 Inactive Invokamet 50 mg-500 mg tablet RxNorm: 1549328 1 Tablet(s) PO daily 10/05/2015 11/03/2015 Inactive alprazolam 0.5 mg tablet RxNorm: 279014 1 Tablet(s) PO PRN as needed 10/01/2015 02/23/2016 Inactive promethazine 25 mg tablet RxNorm: 939684 1 Tablet(s) PO Q6-8H as needed 09/30/2015 10/25/2015 Inactive bumetanide 1 mg tablet RxNorm: 898735 TAKE ONE TABLET BY MOUTH TWICE DAILY 09/30/2015 10/29/2015 Inactive bumetanide 1 mg tablet RxNorm: 848379 TAKE ONE TABLET BY MOUTH TWICE DAILY 09/20/2015 12/18/2015 Inactive bumetanide 1 mg tablet RxNorm: 136801 1 Tablet(s) PO BID 09/20/2015 10/19/2015 Inactive metoprolol succinate ER 100 mg tablet,extended release 24 hr RxNorm: 766153 1 Tablet(s) PO daily 09/16/2015 03/13/2016 Inactive spironolactone 50 mg tablet RxNorm: 274033 1 Tablet(s) PO BID 09/16/2015 03/13/2016 Inactive alprazolam 0.5 mg tablet RxNorm: 661017 1 Tablet(s) PO PRN as needed 09/16/2015 10/25/2015 Inactive hydrocodone 7.5 mg-acetaminophen 325 mg tablet RxNorm: 015884 1 Tablet(s) PO Q4H as needed 09/16/2015 10/25/2015 Inactive Invokamet 50 mg-1,000 mg tablet RxNorm: 7731837 1 Tablet(s) PO daily 09/06/2015 09/05/2015 Inactive Invokamet 50 mg-1,000 mg tablet RxNorm: 9395622 1 Tablet(s) PO daily 09/06/2015 12/04/2015 Inactive promethazine 25 mg tablet RxNorm: 524978 TAKE ONE TABLET BY MOUTH EVERY 6 TO 8 HOURS NEEDED 09/01/2015 09/16/2015 Inactive promethazine 25 mg tablet RxNorm: 036420 1 Tablet(s) PO Q6-8H as needed 08/27/2015 09/25/2015 Inactive metoprolol succinate ER 100 mg tablet,extended release 24 hr RxNorm: 590325 1 Tablet(s) PO daily 08/20/2015 09/15/2015 Inactive bumetanide 1 mg tablet RxNorm: 465551 1 Tablet(s) PO BID 08/20/2015 09/18/2015 Inactive Bumex 1 mg tablet RxNorm: 620174 1 Tablet(s) PO BID 08/20/2015 11/15/2015 Inactive Kenalog 40 mg/mL suspension for injection RxNorm: 3755641 Milliliter(s) Inj 08/20/2015 08/20/2015 Inactive bumetanide 1 mg tablet RxNorm: 417241 1 Tablet(s) PO BID 08/20/2015 08/19/2015 Inactive Levaquin 500 mg tablet RxNorm: 612128 1 Tablet(s) PO daily 08/20/2015 08/26/2015 Inactive promethazine 25 mg tablet RxNorm: 495406 1 Tablet(s) PO Q6-8H as needed 08/06/2015 08/26/2015 Inactive metformin 500 mg tablet RxNorm: 124198 Tablet(s) PO 500mg in the morning and 1000mg at night No Start Date 09/16/2015 Inactive Lantus Solostar 100 unit/mL (3 mL) subcutaneous insulin pen RxNorm: 371218 Unit(s) SQ UD 10 units QHS x 5 days, if blood sugars are above 200 increase to 15 units x 5 days, if still 200 increase to 20 units. No Start Date 04/13/2016 Inactive alprazolam 0.5 mg tablet RxNorm: 253265 1 Tablet(s) PO PRN as needed No Start Date 09/15/2015 Inactive cyclobenzaprine 10 mg tablet RxNorm: 146334 1 Tablet(s) PO PRN as needed No Start Date 04/05/2016 Inactive lidocaine 4 % topical patch RxNorm: 1894506 1 Patch TOP on for 12 hours and off for 12 hours No Start Date 04/12/2016 Inactive metoprolol tartrate 50 mg tablet RxNorm: 638351 1 Tablet(s) PO BID No Start Date 11/10/2015 Inactive spironolactone 50 mg tablet RxNorm: 440716 1 Tablet(s) PO BID No Start Date 09/15/2015 Inactive hydrocodone 7.5 mg-acetaminophen 325 mg tablet RxNorm: 492783 1 Tablet(s) PO Q4H as needed No Start Date 09/15/2015 Inactive promethazine 25 mg tablet RxNorm: 463165 1 Tablet(s) PO PRN as needed No Start Date 08/05/2015 Inactive Medication Administered Medication Codes Instructions Start Date Status Kenalog 40 mg/mL suspension for injection RxNorm: 0590527 1Milliliter 04/06/2016 No longer Active Kenalog 40 mg/mL suspension for injection RxNorm: 5121441 1Milliliter 02/28/2016 No longer Active Kenalog 40 mg/mL suspension for injection RxNorm: 0874977 Milliliter 08/20/2015 No longer Active Immunizations Vaccine [...] Code Item Item Code Result Date %Hba1C Bdg209 % HbA1c 27562- 6 11.1 % 2016 %Hba1C Zhd283 Gluc Ave 272 mg/dL 2016 C-Reactive Protein Qnt Crqnt CRP 4.7 mg/dl 2016 Comp Metabolic Bto350 NA 136 mEq/L 2016 Comp Metabolic Jwq476 K 4.1 mEq/L 2016 Comp Metabolic Dqo582 CL 96 mEq/L 2016 Comp Metabolic Dyn086 CO2 29.0 mEq/L 2016 Comp Metabolic Ivg362 ANION GAP 15 2016 Comp Metabolic Lho170 GLUCOSE 291 mg/dL 2016 Comp Metabolic Dnx531 Creat 0.4 mg/dL 2016 Comp Metabolic Mul430 eGFR 165 ml/min/1.73m2 2016 Comp Metabolic Kvq483 BUN 11 mg/dL 2016 Comp Metabolic Jtz943 B/C Ratio 25.0 Ratio 2016 Comp Metabolic Twf358 CALCIUM 9.4 mg/dL 2016 Comp Metabolic Vsf407 ALK PHOS 111 U/L 2016 Comp Metabolic Hur595 AST(SGOT) 46 U/L 2016 Comp Metabolic Wql416 ALT(SGPT) 60 U/L 2016 Comp Metabolic Ljf319 BILI T 0.4 mg/dL 2016 Comp Metabolic Rdj070 ALBUMIN 4.0 g/dL 2016 Comp Metabolic Uel040 TPRO 6.5 g/dL 2016 Comp Metabolic Nen723 GLOB 2.6 g/dL 2016 Comp Metabolic Shl809 A/G Ratio 1.5 Ratio 2016 Comp Metabolic Gvb278 Osmo 282 mOsmo 2016 Cbc With Differential [...] 30.5 pg 2016 Cbc With Differential Ord2 Coke% 4.7 % 2016 Cbc With Differential Ord2 [...] 3.53 K/ul 2016 Cbc With Differential Ord2 Coke ABS# 0.7 K/ul 2016 Cbc With Differential Ord2 Eos ABS# 0.2 K/ul 2016 Cbc With Differential Ord2 Baso ABS# 0.1 K/ul 2016 Lipid Ord30 CHOL 228 mg/dL 05/05/2016 Lipid Ord30 HDL 42.0 mg/dl 05/05/2016 Lipid Ord30 TRIG 168 mg/dL 05/05/2016 Lipid Ord30 LDL 152 mg/dL 05/05/2016 Lipid Ord30 C/HDL 5.4 Ratio 05/05/2016 Comp Metabolic Ieb425 NA 135 mEq/L 05/05/2016 Comp Metabolic Gag527 K 4.1 mEq/L 05/05/2016 Comp Metabolic Acu033 CL 99 mEq/L 05/05/2016 Comp Metabolic Eel153 CO2 29.0 mEq/L 05/05/2016 Comp Metabolic Vbl218 ANION GAP 11 05/05/2016 Comp Metabolic Boh367 GLUCOSE 229 mg/dL 05/05/2016 Comp Metabolic Hse172 Creat 0.5 mg/dL 05/05/2016 Comp Metabolic Oqx386 eGFR 150 ml/min/1.73m2 05/05/2016 Comp Metabolic Wfq932 BUN 14 mg/dL 05/05/2016 Comp Metabolic Zoa794 B/C Ratio 29.2 Ratio 05/05/2016 Comp Metabolic Aqn533 CALCIUM 9.1 mg/dL 05/05/2016 Comp Metabolic Ogr871 ALK PHOS 112 U/L 05/05/2016 Comp Metabolic Pgy917 AST(SGOT) 59 U/L 05/05/2016 Comp Metabolic Nmc790 ALT(SGPT) 63 U/L 05/05/2016 Comp Metabolic Qdx882 BILI T 0.7 mg/dL 05/05/2016 Comp Metabolic Eiu965 ALBUMIN 3.8 g/dL 05/05/2016 Comp Metabolic Jhd612 TPRO 6.5 g/dL 05/05/2016 Comp Metabolic Msa378 GLOB 2.7 g/dL 05/05/2016 Comp Metabolic Stg989 A/G Ratio 1.4 Ratio 05/05/2016 Comp Metabolic Jqs283 Osmo 278 mOsmo 05/05/2016 Cbc With Differential [...] 91.3 fl 05/05/2016 Cbc With Differential Ord2 Coke% 4.4 % 05/05/2016 Cbc With Differential Ord2 [...] 3.59 K/ul 05/05/2016 Cbc With Differential Ord2 Coke ABS# 0.7 K/ul 05/05/2016 Cbc With Differential Ord2 Eos ABS# 0.1 K/ul 05/05/2016 Cbc With Differential Ord2 Baso ABS# 0.1 K/ul 05/05/2016 %Hba1C Pvb247 % HbA1c 53671- 6 10.4 % 05/05/2016 %Hba1C Dsy182 Gluc Ave 252 mg/dL 05/05/2016 Hcg Beta Subunit Qual Serum 838563 B-HCG QUALITATIVE NEGATIVE 12/27/2015 GC/CHL PRB 6399909 Chl trach DNA Negative 12/25/2015 GC/CHL PRB 1823751 GC PROBE Negative 12/25/2015 Comp. Metabolic Panel (14) 82727 GLUCOSE 136 mg/dL 12/17/2015 Comp. Metabolic Panel (14) 93346 BUN 9 mg/dL 12/17/2015 Comp. Metabolic Panel (14) 83810 CREATININE 0.67 mg/dL 12/17/2015 Comp. Metabolic Panel (14) 96871 SODIUM 136 mmol/L 12/17/2015 Comp. Metabolic Panel (14) 91851 POTASSIUM 4.4 mmol/L 12/17/2015 Comp. Metabolic Panel (14) 93746 CHLORIDE 95 mmol/L 12/17/2015 Comp. Metabolic Panel (14) 54992 CARBON DIOXIDE 28 mmol/L 12/17/2015 Comp. Metabolic Panel (14) 41620 CALCIUM 10.1 mg/dL 12/17/2015 Comp. Metabolic Panel (14) 55409 TOTAL PROTEIN 7.0 g/dL 12/17/2015 Comp. Metabolic Panel (14) 52316 ALBUMIN 4.5 g/dL 12/17/2015 Comp. Metabolic Panel (14) 17440 ALKALINE PHOSPHATASE 87 U/L 12/17/2015 Comp. Metabolic Panel (14) 85963 TOTAL BILIRUBIN 0.5 mg/dL 12/17/2015 Comp. Metabolic Panel (14) 84027 SGOT (AST) 38 U/L 12/17/2015 Comp. Metabolic Panel (14) 40291 SGPT (ALT) 41 U/L 12/17/2015 Comp. Metabolic Panel (14) 22074 eGFR (mL/min/1.73m2) >60 12/17/2015 Comp. Metabolic Panel (14) 38252 12/17/2015 Cbc With Differential/Platelet 91508 WBC 16.67 thou/uL 12/17/2015 Cbc With Differential/Platelet 90773 RBC 5.11 mil/uL 12/17/2015 Cbc With Differential/Platelet 06740 HEMOGLOBIN 14.8 g/dL 12/17/2015 Cbc With Differential/Platelet 59900 HEMATOCRIT 48.7 % 12/17/2015 Cbc With Differential/Platelet 34846 MCV 95.4 fL 12/17/2015 Cbc With Differential/Platelet 49255 MCH 29.0 pg 12/17/2015 Cbc With Differential/Platelet 75646 MCHC 30.4 g/dL 12/17/2015 Cbc With Differential/Platelet 10837 RDW-CV 14.6 % 12/17/2015 Cbc With Differential/Platelet 68738 PLATELET COUNT 471 thou/uL 12/17/2015 Cbc With Differential/Platelet 00702 NEUTROPHIL % 71.3 % 12/17/2015 Cbc With Differential/Platelet 26736 LYMPHOCYTE % 22.4 % 12/17/2015 Cbc With Differential/Platelet 97064 MONOCYTE % 4.8 % 12/17/2015 Cbc With Differential/Platelet 95567 EOS % 0.7 % 12/17/2015 Cbc With Differential/Platelet 12697 BASO % 0.7 % 12/17/2015 Cbc With Differential/Platelet 37638 NEUTROPHIL ABS # 11.89 thou/uL 12/17/2015 Cbc With Differential/Platelet 38828 LYMPH ABS # 3.73 thou/uL 12/17/2015 Cbc With Differential/Platelet 25198 MONOCYTE ABS # 0.80 thou/uL 12/17/2015 Cbc With Differential/Platelet 42586 EOS ABS # 0.12 thou/uL 12/17/2015 Cbc With Differential/Platelet 97153 BASO ABS # 0.12 thou/uL 12/17/2015 Comp. [...] Hgb A1C With Eag Estimation GLYCOHEMOGLOBIN A1C 96718-5 8.1 % 11/13/2015 Hgb A1C With Eag Estimation ESTIMATED AVG GLUCOSE 186 mg/dL 11/13/2015 Comp. Metabolic Panel (14) 71488 GLUCOSE 84 mg/dL 09/11/2015 Comp. Metabolic Panel (14) 08864 BUN 11 mg/dL 09/11/2015 Comp. Metabolic Panel (14) 79805 CREATININE 0.56 mg/dL 09/11/2015 Comp. Metabolic Panel (14) 33042 SODIUM 142 mmol/L 09/11/2015 Comp. Metabolic Panel (14) 49529 POTASSIUM 4.3 mmol/L 09/11/2015 Comp. Metabolic Panel (14) 55035 CHLORIDE 98 mmol/L 09/11/2015 Comp. Metabolic Panel (14) 92782 CARBON DIOXIDE 27 mmol/L 09/11/2015 Comp. Metabolic Panel (14) 81195 CALCIUM 10.1 mg/dL 09/11/2015 Comp. Metabolic Panel (14) 08971 TOTAL PROTEIN 7.2 g/dL 09/11/2015 Comp. Metabolic Panel (14) 67762 ALBUMIN 4.7 g/dL 09/11/2015 Comp. Metabolic Panel (14) 37674 ALKALINE PHOSPHATASE 109 U/L 09/11/2015 Comp. Metabolic Panel (14) 09801 TOTAL BILIRUBIN 0.3 mg/dL 09/11/2015 Comp. Metabolic Panel (14) 87351 SGOT (AST) 53 U/L 09/11/2015 Comp. Metabolic Panel (14) 66315 SGPT (ALT) 53 U/L 09/11/2015 Comp. Metabolic Panel (14) 96785 eGFR (mL/min/1.73m2) >60 09/11/2015 Comp. Metabolic Panel (14) 43723 09/11/2015 Comp. Metabolic Panel (14) 42517 GLUCOSE 183 mg/dL 08/11/2015 Comp. Metabolic Panel (14) 28228 BUN 10 mg/dL 08/11/2015 Comp. Metabolic Panel (14) 83197 CREATININE 0.46 mg/dL 08/11/2015 Comp. Metabolic Panel (14) 46571 SODIUM 138 mmol/L 08/11/2015 Comp. Metabolic Panel (14) 89704 POTASSIUM 4.0 mmol/L 08/11/2015 Comp. Metabolic Panel (14) 61340 CHLORIDE 98 mmol/L 08/11/2015 Comp. Metabolic Panel (14) 61042 CARBON DIOXIDE 29 mmol/L 08/11/2015 Comp. Metabolic Panel (14) 99106 CALCIUM 9.4 mg/dL 08/11/2015 Comp. Metabolic Panel (14) 40142 TOTAL PROTEIN 6.8 g/dL 08/11/2015 Comp. Metabolic Panel (14) 60142 ALBUMIN 4.4 g/dL 08/11/2015 Comp. Metabolic Panel (14) 72633 ALKALINE PHOSPHATASE 118 U/L 08/11/2015 Comp. Metabolic Panel (14) 57134 TOTAL BILIRUBIN <0.3 mg/dL 08/11/2015 Comp. Metabolic Panel (14) 39899 SGOT (AST) 41 U/L 08/11/2015 Comp. Metabolic Panel (14) 52083 SGPT (ALT) 55 U/L 08/11/2015 Comp. Metabolic Panel (14) 45777 eGFR (mL/min/1.73m2) >60 08/11/2015 Comp. Metabolic Panel (14) 50004 08/11/2015 Cbc With Differential/Platelet 32098 WBC 11.76 thou/uL 08/11/2015 Cbc With Differential/Platelet 45236 RBC 4.98 mil/uL 08/11/2015 Cbc With Differential/Platelet 99705 HEMOGLOBIN 14.2 g/dL 08/11/2015 Cbc With Differential/Platelet 36306 HEMATOCRIT 46.7 % 08/11/2015 Cbc With Differential/Platelet 53552 MCV 93.8 fL 08/11/2015 Cbc With Differential/Platelet 37673 MCH 28.5 pg 08/11/2015 Cbc With Differential/Platelet 92579 MCHC 30.4 g/dL 08/11/2015 Cbc With Differential/Platelet 81029 RDW-CV 14.3 % 08/11/2015 Cbc With Differential/Platelet 82621 PLATELET COUNT 382 thou/uL 08/11/2015 Cbc With Differential/Platelet 35531 NEUTROPHIL % 67.3 % 08/11/2015 Cbc With Differential/Platelet 43999 LYMPHOCYTE % 24.0 % 08/11/2015 Cbc With Differential/Platelet 91017 MONOCYTE % 6.0 % 08/11/2015 Cbc With Differential/Platelet 28436 EOS % 1.6 % 08/11/2015 Cbc With Differential/Platelet 71036 BASO % 1.0 % 08/11/2015 Cbc With Differential/Platelet 84686 NEUTROPHIL ABS # 7.91 thou/uL 08/11/2015 Cbc With Differential/Platelet 97786 LYMPH ABS # 2.82 thou/uL 08/11/2015 Cbc With Differential/Platelet 99257 MONOCYTE ABS # 0.71 thou/uL 08/11/2015 Cbc With Differential/Platelet 83391 EOS ABS # 0.19 thou/uL 08/11/2015 Cbc With Differential/Platelet 95831 BASO ABS # 0.12 thou/uL 08/11/2015 Tsh 939283 TSH 3.220 uIU/mL 08/11/2015 Lipid Panel 25211 CHOLESTEROL 193 mg/dL 08/11/2015 Lipid Panel 08721 TRIGLYCERIDES 192 mg/dL 08/11/2015 Lipid Panel 81722 HDL 38 mg/dL 08/11/2015 Lipid Panel 20002 CHOLESTEROL/HDL 5.08 08/11/2015 Lipid Panel 90207 LDL (CALCULATED) 117 mg/dL 08/11/2015 Lipid Panel 89241 LDL/HDL 3.08 08/11/2015 Lipid Panel 29667 PHENOTYPE TYPE IV BORDERLINE 08/11/2015 Review of [...] Procedure Codes Date THER/PROPH/DIAG INJ SC/IM CPT-4: 50606Gtiqcfw 04/13/2016 Pneumococcal Polysaccharide Vaccine, 23-Valent, Ad CPT-4: 04261Cvfnrws 04/13/2016 INJECT TRIGGER POINTS 3/> CPT-4: 33441Qttjbzw 04/06/2016 TRIAMCINOLONE ACET INJ NOS CPT-4: H6881Rjddfxh 04/06/2016 IMMUNIZATION ADMIN CPT-4: 82159Bnfvpnj 03/30/2016 IIV4 FLU VACC NO PRESERV ID SNOMED CT: [id number] CPT-4: 59173Agjdtxk 03/30/2016 TRIAMCINOLONE ACET INJ NOS CPT-4: F6898Ewuhqys 02/28/2016 THER/PROPH/DIAG INJ SC/IM CPT-4: 94451Xbvudmt 02/28/2016 TRIAMCINOLONE ACET INJ NOS CPT-4: T2156Vqxaqdf 08/20/2015 Vital Signs Date Vital 10/30/2016 Blood Pressure 1: 124/78 Code: 8480-6 BMI: 49.1 Code: 97259-0 Heart Rate 1: 90 bpm Height: 4'11" SpO2: 97% Weight: 243 lbs 10/09/2016 Blood Pressure 1: 124/80 Code: 8480-6 BMI: 49.3 Code: 66992-6 Heart Rate 1: 91 bpm Height: 4'11" SpO2: 98% Weight: 244 lbs 09/12/2016 Blood Pressure 1: 128/80 Code: 8480-6 BMI: 49.1 Code: 41065-3 Heart Rate 1: 94 bpm Height: 4'11" SpO2: 95% Weight: 243 lbs 09/05/2016 Blood Pressure 1: 118/74 Code: 8480-6 BMI: 49.1 Code: 53384-9 Heart Rate 1: 100 bpm Height: 4'11" SpO2: 97% Weight: 243 lbs 06/16/2016 Blood Pressure 1: 120/62 Code: 8480-6 BMI: 49.1 Code: 19748-3 Heart Rate 1: 100 bpm Height: 4'11" SpO2: 96% Temperature: 36.7 (C) / 98.0 (F) Weight: 243 lbs 06/13/2016 Blood Pressure 1: 120/70 Code: 8480-6 Heart Rate 1: 117 bpm SpO2: 97% 05/19/2016 Blood Pressure 1: 130/64 Code: 8480-6 BMI: 49.1 Code: 80647-2 Heart Rate 1: 101 bpm Height: 4'11" SpO2: 96% Weight: 243 lbs 05/08/2016 Blood Pressure 1: 128/76 Code: 8480-6 Heart Rate 1: 119 bpm Height: SpO2: 97% Weight: 05/05/2016 Blood Pressure 1: 12476 Code: 8480-6 BMI: 49.1 Code: 99026-9 Heart Rate 1: 75 bpm Height: 4'11" SpO2: 99% Weight: 243 lbs 04/10/2016 Blood Pressure 1: 140/80 Code: 8480-6 BMI: 49.7 Code: 14411-7 Heart Rate 1: 88 bpm Height: 4'11" SpO2: 95% Weight: 246 lbs 04/06/2016 Blood Pressure 1: 134/82 Code: 8480-6 BMI: 75.1 Code: 95824-7 Heart Rate 1: 72 bpm Height: 4' SpO2: 96% Weight: 246 lbs 03/08/2016 Blood Pressure 1: 126/72 Code: 8480-6 BMI: 49.7 Code: 62781-3 Heart Rate 1: 89 bpm Height: 4'11" SpO2: 97% Weight: 246 lbs 02/28/2016 Blood Pressure 1: 124/68 Code: 8480-6 BMI: 49.7 Code: 23971-8 Heart Rate 1: 89 bpm Height: 4'11" SpO2: 96% Weight: 246 lbs 01/18/2016 Blood Pressure 1: 142/78 Code: 8480-6 BMI: 48.9 Code: 43559-6 Heart Rate 1: 97 bpm Height: 4'11" SpO2: 97% Weight: 242 lbs 12/23/2015 Blood Pressure 1: 124/74 Code: 8480-6 BMI: 48.9 Code: 01326-7 Heart Rate 1: 106 bpm Height: 4'11" SpO2: 96% Weight: 242 lbs 12/16/2015 Blood Pressure 1: 116/82 Code: 8480-6 BMI: 48.3 Code: 94226-6 Heart Rate 1: 111 bpm Height: 4'11" SpO2: 97% Weight: 239 lbs 11/11/2015 Blood Pressure 1: 130/80 Code: 8480-6 BMI: 49.7 Code: 34872-7 Heart Rate 1: 105 bpm Height: 4'11" SpO2: 96% Weight: 246 lbs 10/27/2015 Blood Pressure 1: 122/70 Code: 8480-6 BMI: 49.5 Code: 72399-9 Heart Rate 1: 107 bpm Height: 4'11" SpO2: 96% Weight: 245 lbs 10/13/2015 Blood Pressure 1: 140/82 Code: 8480-6 BMI: 50.9 Code: 29070-9 Heart Rate 1: 111 bpm Height: 4'11" SpO2: 96% Weight: 252 lbs 10/05/2015 Blood Pressure 1: 118/70 Code: 8480-6 BMI: 51.1 Code: 24689-6 Heart Rate 1: 120 bpm Height: 4'11" SpO2: 97% Weight: 253 lbs 09/01/2015 Blood Pressure 1: 132/82 Code: 8480-6 BMI: 50.1 Code: 16111-0 Heart Rate 1: 110 bpm Height: 4'11" SpO2: 96% Weight: 248 lbs 08/20/2015 Blood Pressure 1: 132/78 Code: 8480-6 BMI: 51.7 Code: 28162-5 Heart Rate 1: 100 bpm Height: 4'11" Weight: 256 lbs 08/03/2015 Blood Pressure 1: 148/92 Code: 8480-6 BMI: 52.1 Code: 73709-5 Heart Rate 1: 100 bpm Height: 4'11" [...] mellitus with hyperglycemia[ICD10: E11.65] Gloria Hess MD, [facility] CPT-4: 65256 10/30/2016 29908 EST. PATIENT, LEVEL III Diagnosis: Candidiasis of vulva and vagina[ICD10: B37.3] Diagnosis: Type 2 diabetes mellitus with hyperglycemia[ICD10: E11.65] Gloria Hess MD, [facility] CPT-4: 71003 10/09/2016 76190 EST. PATIENT, LEVEL IV Diagnosis: Umbilical hernia without obstruction or gangrene[ICD10: K42.9] Gloria Hess MD, [facility] CPT-4: 33489 09/12/2016 63751 EST. PATIENT, LEVEL III Diagnosis: Epigastric pain[ICD10: R10.13] Diagnosis: Candidiasis of vulva and vagina[ICD10: B37.3] Diagnosis: Type 2 diabetes mellitus with hyperglycemia[ICD10: E11.65] Gloria Hess MD, [facility] CPT-4: 34222 09/05/2016 16850 EST. PATIENT, LEVEL III Diagnosis: Acute laryngopharyngitis[ICD10: J06.0] Diagnosis: Other allergic rhinitis[ICD10: J30.89] Gloria Hess MD, [facility] CPT- 4: 17533 06/16/2016 27109 EST. PATIENT, LEVEL III Diagnosis: Type 2 diabetes mellitus with hyperglycemia[ICD10: E11.65] Diagnosis: Other obesity due to excess calories[ICD10: E66.09] Gloria Hess MD, [facility] CPT-4: 18740 06/13/2016 50589 EST. PATIENT, LEVEL III Diagnosis: Type 2 diabetes mellitus with hyperglycemia[ICD10: E11.65] Diagnosis: Other obesity due to excess calories[ICD10: E66.09] Gloria Hess MD, [facility] CPT-4: 51042 05/19/2016 95286 EST. PATIENT, LEVEL III Diagnosis: Type 2 diabetes mellitus with hyperglycemia[ICD10: E11.65] Diagnosis: Other obesity due to excess calories[ICD10: E66.09] Gloria Hess MD, [facility] CPT-4: 13838 05/08/2016 58787 EST. PATIENT, LEVEL III Diagnosis: Type 2 diabetes mellitus without complications[ICD10: E11.9] Gloria Hess MD, [facility] CPT-4: 44518 05/05/2016 64497 EST. PATIENT, LEVEL III Diagnosis: Pain in right shoulder[ICD10: M25.511] Gloria Hess MD, [facility] CPT- 4: 35623 04/10/2016 90832 EST. PATIENT, LEVEL III Diagnosis: Pain in right shoulder[ICD10: M25.511] Diagnosis: Other muscle spasm[ICD10: M62.838] Diagnosis: Type 2 diabetes mellitus without complications[ICD10: E11.9] Gloria Hess MD, [facility] CPT-4: 31536 04/06/2016 81141 EST. PATIENT, LEVEL IV Diagnosis: Acute bronchitis due to other specified organisms[ICD10: J20.8] Diagnosis: Other acute sinusitis[ICD10: J01.80] Diagnosis: Acne vulgaris[ICD10: L70.0] Diagnosis: Morbid (severe) obesity due to excess calories[ICD10: E66.01] Gloria Hess MD, [facility] CPT-4: 09747 03/08/2016 93664 EST. PATIENT, LEVEL IV Diagnosis: Other acute sinusitis[ICD10: J01.80] Diagnosis: Localized enlarged lymph nodes[ICD10: R59.0] Gloria Hess MD, [facility] CPT-4: 16000 02/28/2016 90799 EST. PATIENT, LEVEL III Diagnosis: Type 2 diabetes mellitus without complications[ICD10: E11.9] Gloria Hess MD, [facility] CPT-4: 97877 01/18/2016 (78336) PREV VISIT EST AGE 40-64 Diagnosis: Encounter for gynecological examination (general) (routine) without abnormal findings[ICD10: Z01.419] Diagnosis: Excessive and frequent menstruation with irregular cycle[ICD10: N92.1] Gloria Hess MD, [facility] CPT-4: 52510 12/23/2015 44223 EST. PATIENT, LEVEL III Diagnosis: Type 2 diabetes mellitus without complications[ICD10: E11.9] Gloria Hess MD, [facility] CPT-4: 86336 12/16/2015 09692 EST. PATIENT, LEVEL III Diagnosis: Type 2 diabetes mellitus without complications[ICD10: E11.9] Diagnosis: Other obesity due to excess calories[ICD10: E66.09] Gloria Hess MD, [facility] CPT-4: 81588 11/11/2015 10132 EST. PATIENT, LEVEL III Diagnosis: Type 2 diabetes mellitus without complications[ICD10: E11.9] Diagnosis: Other obesity due to excess calories[ICD10: E66.09] Gloria Hess MD, [facility] CPT-4: 06179 10/27/2015 87386 EST. PATIENT, LEVEL III Diagnosis: Type 2 diabetes mellitus without complications[ICD10: E11.9] Diagnosis: Other obesity due to excess calories[ICD10: E66.09] Diagnosis: Other insomnia[ICD10: G47.09] Gloria Hess MD, [facility] CPT-4: 77109 10/13/2015 47600 EST. PATIENT, LEVEL IV Diagnosis: Acute recurrent maxillary sinusitis[ICD10: J01.01] Diagnosis: Allergic rhinitis due to pollen[ICD10: J30.1] Diagnosis: Other obesity due to excess calories[ICD10: E66.09] Gloria Hess MD, [facility] CPT-4: 70081 10/05/2015 29456 EST. PATIENT, LEVEL IV Diagnosis: Polycystic ovarian syndrome[ICD10: E28.2] Diagnosis: Other skin changes[ICD10: R23.8] Diagnosis: Other abnormal glucose[ICD10: R73.09] [facility] CPT- 4: 69933 09/01/2015 84232 EST. PATIENT, LEVEL IV Diagnosis: Acute recurrent maxillary sinusitis[ICD10: J01.01] Diagnosis: Morbid (severe) obesity due to excess calories[ICD10: E66.01] Diagnosis: Essential (primary) hypertension[ICD10: I10] Diagnosis: Allergic rhinitis due to pollen[ICD10: J30.1] [facility] CPT-4: 46232 08/20/2015 (71775) OFFICE VISIT, NEW - LEVEL 4 Diagnosis: Essential (primary) hypertension[ICD10: I10] Diagnosis: Obstructive sleep apnea (adult) (pediatric)[ICD10: G47.33] Diagnosis: Other insomnia[ICD10: G47.09] Diagnosis: Snoring[ICD10: R06.83] Diagnosis: Morbid (severe) obesity due to excess calories[ICD10: E66.01] [facility] CPT-4: 44010 08/03/2015 Plan of Care Planned Activity Notes Codes Status Date Visit Plan: Vaginal candidiasis - will send RX - pt is to notify clinic if symptoms do not improve, if they worsen, or with any questions or concerns. Diabetes Mellitus - Uncontrolled - Will refer to ic designer standard cells - I have recommended for the patient [...] Mellitus - Uncontrolled - Will refer to ic designer standard cells - I have recommended for the patient [...] control. 10/09/2016 Appointment: Gloria Scott WPtel: [phone] [facility] (30 min) Complex 10/09/2016 Patient Education: Patient Medication Summary Completed 10/09/2016 Patient Education: Obesity Completed 10/09/2016 Referral: Roni Roberts Referral Completed 09/18/2016 Care Plan: CT ABD & PELV W/CONTRAST LOINC : 06551-5 Pending 09/13/2016 Care Plan: Referral Order SNOMED-CT : 590669661 Pending 09/13/2016 Visit Plan: Ongoing abdominal pain/hernia - will send RX - will refer - pt is to notify clinic if symptoms do not improve, if they worsen, or with any questions or concerns. 09/12/2016 Appointment: Gloria Scott WPtel: [phone] [facility] (30 min) Complex 09/12/2016 Patient Education: Patient Medication Summary Completed 09/12/2016 Patient Education: Obesity Completed 09/12/2016 Care Plan: Referral Order SNOMED-CT : 247496252 Pending 09/12/2016 Visit Plan: Ongoing abdominal/epigastric pain [...] control. 09/05/2016 Appointment: Gloria Scott WPtel: [phone] (30 min) Complex 09/05/2016 Patient Education: [...] spray. 06/16/2016 Appointment: Gloria Scott WPtel: [phone] (10 min) Simple 06/16/2016 Patient Education: [...] check. 06/13/2016 Appointment: Gloria Scott WPtel: [phone] (30 min) Complex 06/13/2016 Patient Education: Patient Medication Summary Completed 06/13/2016 Patient Education: Obesity Completed 06/13/2016 Appointment: Gloria Scott WPtel: [phone] [facility] (30 min) Complex 06/08/2016 Visit Plan: Diabetes [...] weight check. 05/19/2016 Appointment: Tamy Lugo WPtel: [phone] [phone] [place] (30 min) Complex 05/19/2016 Patient Education: [...] check. 05/08/2016 Appointment: Gloria Scott WPtel: [phone] [facility] [place] (15 min) Moderate 05/08/2016 Patient Education: [...] 05/05/2016 Appointment: Tamy Lugo WPtel: [phone] [place] (15 min) Moderate 05/05/2016 Patient Education: Patient Medication Summary Completed 05/05/2016 Patient Education: Obesity Completed 05/05/2016 Care Plan: Comp Metabolic Pending 05/05/2016 Appointment: Jocelyn Hess WPtel: [facility]5 [phone] Surgical Procedure 04/17/2016 Appointment: Injection 04/13/2016 Patient Education: Patient Medication Summary Completed 04/13/2016 Visit Plan: Right shoulder pain - will refer to PT - The pt is to use prn antiinflammatories to manage acute pain. The patient is to call the office if the pain is worsening or does not improve. 04/10/2016 Appointment: Gloria Scott WPtel: [facility] [place] (30 min) Complex 04/10/2016 Patient Education: [...] glucose control. 04/06/2016 Appointment: Gloria Scott WPtel: [phone] [place] [place] (15 min) Moderate 04/06/2016 Patient Education: [...] [place] 02/28/2016 Appointment: Gloria Scott WPtel: [phone] [place] (30 min) Complex 02/28/2016 Patient Education: Patient Medication Summary Completed 02/28/2016 Patient Education: Obesity Completed 02/28/2016 Appointment: Gloria Scott WPtel: [phone] [facility] (15 min) Moderate 01/31/2016 Visit Plan: Diabetes [...] Scott [facility]Ptel: [phone] [facility] 12/23/2015 Patient Education: Patient Medication [...] ADD TO BLOOD IN THE LAB. [facility] : 19261-0 Pending 08/13/2015 Visit Plan: Hypertension - uncontrolled [...] Roni Roberts Referral Initiated Instructions Comment . Sinusitis - Pt has acute infection [...] or edema noted - will order US Will check fasting labs, will send for [...] Mellitus - Uncontrolled - Will refer to ic designer standard cells - I have recommended for the patient [...] Mellitus - Uncontrolled - Will refer to ic designer standard cells - I have recommended for the patient [...] allow for greater blood glucose control. . Right shoulder pain - will refer [...] in one month for weight check. . Trigger Points - Injected trigger points [...] allow for greater blood glucose control. . Well Adult Female - exam completed. [...] not improve, or with any concerns . Diabetes Mellitus - Uncontrolled - per [...]
--- OUTSIDE RECORDS SUMMARY | 2018-12-17 03:09 | XMS REPORT | CCD ---
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 Name Role Phone PP Unavailable CCM Unavailable Summary Purpose Interface Exchange Insurance Providers Payer name Policy type / Coverage type Covered constitution party ID Effective Begin Date Effective End Date [facility] Commercial Insurance [id number] Unknown Unknown Family history Father Diagnosis Age At Onset Hypertension Unknown Arthritis Unknown Mother Diagnosis Age At Onset Arthritis Unknown Hyperlipidemia Unknown Daughter Diagnosis Age At Onset Asthma Unknown Social History Social History Element Codes Description Effective Dates Marital status Unknown Darin 08/03/2015 Number of children Unknown 1 08/03/[address]: 3366890 Quit less than 5 years ago 08/03/2015 [...] Fill Instructions promethazine 25 mg tablet RxNorm: 451699 Tablet(s) TAKE ONE TABLET BY MOUTH EVERY 6 TO 8 HOURS NEEDED 11/16/2016 12/15/2016 Active cyclobenzaprine 10 mg tablet RxNorm: 616938 TAKE ONE TABLET BY MOUTH NEEDED 11/15/2016 12/04/2016 Active spironolactone 50 mg tablet RxNorm: 838796 TAKE ONE TABLET BY MOUTH TWICE DAILY 11/15/2016 05/13/2017 Active Basaglar KwikPen 100 unit/mL (3 mL) subcutaneous RxNorm: 0360397 Unit(s) INJECT 35 UNITS IN THE MORNING AND 50 UNITS IN THE EVENING SUBCUTANEOUSLY 11/15/2016 03/14/2017 Active lidocaine 5 % topical patch RxNorm: 8489510 1 Patch TOP daily . 12 HOURS ON, 12 HOURS OFF 11/15/2016 12/04/2016 Active lidocaine 4 % topical patch RxNorm: 5429221 1 Patch TOP on for 12 hours and off for 12 hours 11/14/2016 11/14/2016 Inactive promethazine 25 mg tablet RxNorm: 288550 TAKE ONE TABLET BY MOUTH EVERY 6 TO 8 HOURS NEEDED 11/14/2016 11/15/2016 Inactive Basaglar KwikPen 100 unit/mL (3 mL) subcutaneous RxNorm: 9890497 INJECT 35 UNITS IN THE MORNING AND 50 UNITS IN THE EVENING SUBCUTANEOUSLY 11/14/2016 11/14/2016 Inactive cyclobenzaprine 10 mg tablet RxNorm: 557569 TAKE ONE TABLET BY MOUTH NEEDED 11/14/2016 11/14/2016 Inactive spironolactone 50 mg tablet RxNorm: 824191 TAKE ONE TABLET BY MOUTH TWICE DAILY 11/14/2016 11/14/2016 Inactive hydrocodone 7.5 mg-acetaminophen 325 mg tablet RxNorm: 355617 1 Tablet(s) PO Q4H as needed 10/30/2016 11/28/2016 Active clotrimazole 100 mg vaginal tablet RxNorm: 992026 1 Tablet(s) VAG QW 10/30/2016 11/28/2016 Active Humalog KwikPen 200 unit/mL (3 mL) subcutaneous RxNorm: 5581419 35 Unit(s) SQ AC 10/30/2016 No Stop Date Active QS 30 day supply Bydureon 2 mg/0.65 mL subcutaneous pen injector RxNorm: 8720392 2 Milligram(s) SQ QW 10/30/2016 11/28/2016 Active Diflucan 150 mg tablet RxNorm: 392952 1 Tablet(s) PO as needed prophylactic after sexual intercourse 10/30/2016 No Stop Date Active Basaglar KwikPen 100 unit/mL (3 mL) subcutaneous RxNorm: 6673757 Unit(s) SQ 35 units in the morning and 50 units in the evening 10/30/2016 11/13/2016 Inactive QS 30 day supply cyclobenzaprine 10 mg tablet RxNorm: 960968 TAKE ONE TABLET BY MOUTH NEEDED 10/27/2016 11/05/2016 Inactive Diflucan 150 mg tablet RxNorm: 451070 1 Tablet(s) PO daily x 7 days then once a week 10/27/2016 10/29/2016 Inactive promethazine 25 mg tablet RxNorm: 926284 TAKE ONE TABLET BY MOUTH EVERY 6 TO 8 HOURS NEEDED 10/27/2016 11/10/2016 Inactive Diflucan 150 mg tablet RxNorm: 519180 1 Tablet(s) PO daily x 7 days then once a week 10/09/2016 10/15/2016 Inactive Diflucan 150 mg tablet RxNorm: 551816 1 Tablet(s) PO daily 09/20/2016 09/26/2016 Inactive Cipro 500 mg tablet RxNorm: 746098 1 Tablet(s) PO BID 09/12/2016 09/21/2016 Inactive Flagyl 500 mg tablet RxNorm: 536726 1 Tablet(s) PO TID 09/12/2016 09/21/2016 Inactive Diflucan 150 mg tablet RxNorm: 147480 1 Tablet(s) PO daily 09/06/2016 09/12/2016 Inactive hydrocodone 7.5 mg-acetaminophen 325 mg tablet RxNorm: 284426 1 Tablet(s) PO Q4H as needed 07/12/2016 08/10/2016 Inactive Xopenex 1.25 mg/3 mL solution for nebulization RxNorm: 300285 3 Milliliter(s) INH TID 06/16/2016 No Stop Date Active cefdinir 300 mg capsule RxNorm: 365175 1 Capsule(s) PO BID 06/16/2016 06/25/2016 Inactive Mobic 7.5 mg tablet RxNorm: 844711 1 Tablet(s) PO daily 06/16/2016 06/25/2016 Inactive Levaquin 500 mg tablet RxNorm: 460578 1 Tablet(s) PO daily 06/16/2016 06/22/2016 Inactive cyclobenzaprine 10 mg tablet RxNorm: 494079 1 Tablet(s) PO PRN as needed 06/14/2016 06/23/2016 Inactive promethazine 25 mg tablet RxNorm: 269342 TAKE ONE TABLET BY MOUTH EVERY 6 TO 8 HOURS NEEDED 06/14/2016 06/28/2016 Inactive Xopenex HFA 45 mcg/actuation aerosol inhaler RxNorm: 330010 1 Puff(s) INH PRN 06/14/2016 07/15/2016 Inactive pen needle, diabetic 32 gauge x 5/16" RxNorm: 1 use Miscellaneous AC & HS 06/13/2016 No Stop Date Active QS 30 day supply Humalog KwikPen 200 unit/mL (3 mL) subcutaneous RxNorm: 8961076 10 Unit(s) SQ AC 06/13/2016 10/29/2016 Inactive QS 30 day supply Basaglar KwikPen 100 unit/mL (3 mL) subcutaneous RxNorm: 5337323 22 units in the morning and 35 in the evening. Unit(s) SQ 06/13/2016 10/29/2016 Inactive QS 30 day supply Tivorbex 20 mg capsule RxNorm: 3591599 1 Capsule(s) PO TID as needed 06/13/2016 06/13/2016 Inactive metoprolol succinate ER 100 mg tablet,extended release 24 hr RxNorm: 568122 TAKE ONE TABLET BY MOUTH ONCE DAILY 06/13/2016 10/10/2016 Inactive hydrocodone 7.5 mg-acetaminophen 325 mg tablet RxNorm: 770596 1 Tablet(s) PO Q4H as needed 06/13/2016 07/11/2016 Inactive Voltaren 1 % topical gel RxNorm: 719389 APPLY TOPICALLY TO AFFECTED AREA TWICE DAILY 05/30/2016 07/08/2016 Inactive alprazolam 0.5 mg tablet RxNorm: 281332 1 Tablet(s) PO Q8 as needed 05/19/2016 No Stop Date Active bumetanide 1 mg tablet RxNorm: 919833 TAKE ONE TABLET BY MOUTH TWICE DAILY 05/19/2016 06/17/2016 Inactive cyclobenzaprine 10 mg tablet RxNorm: 381881 1 Tablet(s) PO PRN as needed 05/19/2016 05/28/2016 Inactive Sprintec (28) 0.25 mg-35 mcg tablet RxNorm: 620419 1 Tablet(s) PO UD 05/08/2016 No Stop Date Active Lantus Solostar 100 unit/mL (3 mL) subcutaneous insulin pen RxNorm: 001012 Unit(s) SQ UD 15units qam 30 units qhs 05/08/2016 No Stop Date Active Humalog KwikPen 200 unit/mL (3 mL) subcutaneous RxNorm: 8933636 10 Unit(s) SQ AC 05/08/2016 06/12/2016 Inactive bumetanide 1 mg tablet RxNorm: 717066 TAKE ONE TABLET BY MOUTH TWICE DAILY 04/28/2016 05/18/2016 Inactive Voltaren 1 % topical gel RxNorm: 194585 1 Application TOP BID 04/28/2016 05/07/2016 Inactive cyclobenzaprine 10 mg tablet RxNorm: 320468 1 Tablet(s) PO PRN as needed 04/28/2016 05/07/2016 Inactive hydrocodone 7.5 mg-acetaminophen 325 mg tablet RxNorm: 317817 1 Tablet(s) PO Q4H as needed 04/18/2016 05/16/2016 Inactive Lantus Solostar 100 unit/mL (3 mL) subcutaneous insulin pen RxNorm: 989609 Unit(s) SQ UD 10 units QHS x5 days, if sugars are over 200 increase to 15 units x 5 days, if sugars over 200 increase to 20 units. 04/14/2016 05/07/2016 Inactive lidocaine 4 % topical patch RxNorm: 6309309 1 Patch TOP on for 12 hours and off for 12 hours 04/13/2016 11/13/2016 Inactive Voltaren 1 % topical gel RxNorm: 282668 1 Application TOP BID 04/10/2016 04/27/2016 Inactive metformin ER 500 mg 24 hr tablet,extended release RxNorm: 470817 1 Tablet(s) PO daily 04/06/2016 05/05/2016 Inactive Kenalog 40 mg/mL suspension for injection RxNorm: 2381003 1 Milliliter(s) Inj 04/06/2016 04/06/2016 Inactive cyclobenzaprine 10 mg tablet RxNorm: 485071 1 Tablet(s) PO PRN as needed 04/06/2016 04/27/2016 Inactive WelChol 3.75 gram oral powder packet RxNorm: 168338 1 packet PO daily 04/06/2016 07/04/2016 Inactive alprazolam 0.5 mg tablet RxNorm: 816907 1 Tablet(s) PO Q8 as needed 03/30/2016 No Stop Date Active Levaquin 500 mg tablet RxNorm: 463635 1 Tablet(s) PO daily 03/30/2016 04/05/2016 Inactive metoprolol succinate ER 100 mg tablet,extended release 24 hr RxNorm: 663528 TAKE ONE TABLET BY MOUTH ONCE DAILY 03/16/2016 06/12/2016 Inactive Levaquin 500 mg tablet RxNorm: 218512 1 Tablet(s) PO daily 03/08/2016 03/14/2016 Inactive prednisone 20 mg tablet RxNorm: 698424 2 Tablet(s) PO daily 03/08/2016 03/12/2016 Inactive Phenergan with Codeine Syrup RxNorm: 5-10 ML PO QID as needed cough 02/28/2016 No Stop Date Active Xopenex HFA 45 mcg/actuation aerosol inhaler RxNorm: 813070 1 Puff(s) INH PRN 02/28/2016 06/13/2016 Inactive Kenalog 40 mg/mL suspension for injection RxNorm: 6444556 1 Milliliter(s) Inj 02/28/2016 02/28/2016 Inactive Zithromax Z-Rashid 250 mg tablet RxNorm: 680043 1 Tablet(s) PO UD 02/28/2016 03/27/2016 Inactive alprazolam 0.5 mg tablet RxNorm: 939011 1 Tablet(s) PO Q8 as needed 02/24/2016 03/21/2016 Inactive glipizide 5 mg tablet RxNorm: 728399 1 Tablet(s) PO daily 01/18/2016 05/16/2016 Inactive Actos 15 mg tablet RxNorm: 846247 1 Tablet(s) PO daily 01/18/2016 02/16/2016 Inactive gabapentin 100 mg capsule RxNorm: 751529 1 Capsule(s) PO QHS 01/13/2016 03/12/2016 Inactive gabapentin 100 mg capsule RxNorm: 037935 1 Capsule(s) PO QHS 01/13/2016 01/12/2016 Inactive Bydureon 2 mg/0.65 mL subcutaneous pen injector RxNorm: 6435505 1 Milliliter(s) SQ QW 01/12/2016 01/11/2016 Inactive Bydureon 2 mg/0.65 mL subcutaneous pen injector RxNorm: 4404729 2/0.65ml Milligram(s) SQ QW 01/12/2016 05/16/2016 Inactive Bydureon 2 mg/0.65 mL subcutaneous pen injector RxNorm: 6114486 1 Milliliter(s) SQ QW 01/12/2016 01/11/2016 Inactive bumetanide 1 mg tablet RxNorm: 036370 TAKE ONE TABLET BY MOUTH TWICE DAILY 01/10/2016 04/08/2016 Inactive promethazine 25 mg tablet RxNorm: 785837 Tablet(s) Tablet(s) 1 Tablet(s) PO Q6-8H as needed 12/16/2015 04/13/2016 Inactive promethazine 25 mg tablet RxNorm: 555879 Tablet(s) 1 Tablet(s) PO Q6-8H as needed 12/10/2015 12/15/2015 Inactive Trulicity 0.75 mg/0.5 mL subcutaneous pen injector RxNorm: 1728873 INJECT ONE-HALF ML SUBCUTANEOUSLY ONCE A WEEK 12/10/2015 01/11/2016 Inactive glipizide 5 mg tablet RxNorm: 347733 1 Tablet(s) PO daily 12/10/2015 01/17/2016 Inactive bumetanide 1 mg tablet RxNorm: 162133 TAKE ONE TABLET BY MOUTH TWICE DAILY 12/10/2015 01/08/2016 Inactive promethazine 25 mg tablet RxNorm: 271040 Tablet(s) 1 Tablet(s) PO Q6-8H as needed 11/18/2015 12/09/2015 Inactive promethazine 25 mg tablet RxNorm: 341146 1 Tablet(s) PO Q6-8H as needed 11/16/2015 11/17/2015 Inactive glipizide 5 mg tablet RxNorm: 414316 1/2 Tablet(s) PO daily 11/16/2015 12/15/2015 Inactive promethazine 25 mg tablet RxNorm: 642583 Tablet(s) 1 Tablet(s) PO Q6-8H as needed 11/11/2015 12/10/2015 Inactive metoprolol tartrate 50 mg tablet RxNorm: 257937 1 Tablet(s) PO BID 11/11/2015 02/08/2016 Inactive Trulicity 0.75 mg/0.5 mL subcutaneous pen injector RxNorm: 6939747 .5 Milliliter(s) SQ QW 11/11/2015 01/11/2016 Inactive promethazine 25 mg tablet RxNorm: 735296 1 Tablet(s) PO Q6-8H as needed 10/28/2015 11/10/2015 Inactive nystatin 100,000 unit/gram topical cream RxNorm: 474799 1 Gram(s) TOP BID 10/27/2015 No Stop Date Active alprazolam 0.5 mg tablet RxNorm: 286408 1 Tablet(s) PO Q8 as needed 10/27/2015 03/29/2016 Inactive hydrocodone 7.5 mg-acetaminophen 325 mg tablet RxNorm: 317455 1 Tablet(s) PO Q4H as needed 10/27/2015 11/25/2015 Inactive Trulicity 0.75 mg/0.5 mL subcutaneous pen injector RxNorm: 5029997 .5 Milliliter(s) SQ QW 10/27/2015 11/10/2015 Inactive glipizide 5 mg tablet RxNorm: 769109 1 Tablet(s) PO daily 10/27/2015 11/25/2015 Inactive hydrocodone 7.5 mg-acetaminophen 325 mg tablet RxNorm: 497962 1 Tablet(s) PO Q4H as needed 10/26/2015 10/26/2015 Inactive alprazolam 0.5 mg tablet RxNorm: 548784 1 Tablet(s) PO PRN as needed 10/26/2015 10/26/2015 Inactive promethazine 25 mg tablet RxNorm: 874400 1 Tablet(s) PO Q6-8H as needed 10/26/2015 11/15/2015 Inactive glipizide 5 mg tablet RxNorm: 602075 1/2 Tablet(s) PO daily 10/13/2015 10/26/2015 Inactive cefdinir 300 mg capsule RxNorm: 836723 1 Capsule(s) PO BID 10/05/2015 10/14/2015 Inactive prednisone 20 mg tablet RxNorm: 224004 2 Tablet(s) PO daily 10/05/2015 10/09/2015 Inactive Diflucan 150 mg tablet RxNorm: 028680 1 Tablet(s) PO daily 10/05/2015 10/11/2015 Inactive Invokamet 50 mg-500 mg tablet RxNorm: 5514787 1 Tablet(s) PO daily 10/05/2015 11/03/2015 Inactive alprazolam 0.5 mg tablet RxNorm: 783782 1 Tablet(s) PO PRN as needed 10/01/2015 02/23/2016 Inactive promethazine 25 mg tablet RxNorm: 479934 1 Tablet(s) PO Q6-8H as needed 09/30/2015 10/25/2015 Inactive bumetanide 1 mg tablet RxNorm: 136632 TAKE ONE TABLET BY MOUTH TWICE DAILY 09/30/2015 10/29/2015 Inactive bumetanide 1 mg tablet RxNorm: 996576 TAKE ONE TABLET BY MOUTH TWICE DAILY 09/20/2015 12/18/2015 Inactive bumetanide 1 mg tablet RxNorm: 960472 1 Tablet(s) PO BID 09/20/2015 10/19/2015 Inactive metoprolol succinate ER 100 mg tablet,extended release 24 hr RxNorm: 897788 1 Tablet(s) PO daily 09/16/2015 03/13/2016 Inactive spironolactone 50 mg tablet RxNorm: 719105 1 Tablet(s) PO BID 09/16/2015 03/13/2016 Inactive alprazolam 0.5 mg tablet RxNorm: 211213 1 Tablet(s) PO PRN as needed 09/16/2015 10/25/2015 Inactive hydrocodone 7.5 mg-acetaminophen 325 mg tablet RxNorm: 899102 1 Tablet(s) PO Q4H as needed 09/16/2015 10/25/2015 Inactive Invokamet 50 mg-1,000 mg tablet RxNorm: 2647872 1 Tablet(s) PO daily 09/06/2015 09/05/2015 Inactive Invokamet 50 mg-1,000 mg tablet RxNorm: 9760136 1 Tablet(s) PO daily 09/06/2015 12/04/2015 Inactive promethazine 25 mg tablet RxNorm: 180042 TAKE ONE TABLET BY MOUTH EVERY 6 TO 8 HOURS NEEDED 09/01/2015 09/16/2015 Inactive promethazine 25 mg tablet RxNorm: 904904 1 Tablet(s) PO Q6-8H as needed 08/27/2015 09/25/2015 Inactive metoprolol succinate ER 100 mg tablet,extended release 24 hr RxNorm: 083086 1 Tablet(s) PO daily 08/20/2015 09/15/2015 Inactive bumetanide 1 mg tablet RxNorm: 614595 1 Tablet(s) PO BID 08/20/2015 09/18/2015 Inactive Bumex 1 mg tablet RxNorm: 223529 1 Tablet(s) PO BID 08/20/2015 11/15/2015 Inactive Kenalog 40 mg/mL suspension for injection RxNorm: 9699399 Milliliter(s) Inj 08/20/2015 08/20/2015 Inactive bumetanide 1 mg tablet RxNorm: 716716 1 Tablet(s) PO BID 08/20/2015 08/19/2015 Inactive Levaquin 500 mg tablet RxNorm: 173449 1 Tablet(s) PO daily 08/20/2015 08/26/2015 Inactive promethazine 25 mg tablet RxNorm: 566385 1 Tablet(s) PO Q6-8H as needed 08/06/2015 08/26/2015 Inactive metformin 500 mg tablet RxNorm: 990669 Tablet(s) PO 500mg in the morning and 1000mg at night No Start Date 09/16/2015 Inactive Lantus Solostar 100 unit/mL (3 mL) subcutaneous insulin pen RxNorm: 727000 Unit(s) SQ UD 10 units QHS x 5 days, if blood sugars are above 200 increase to 15 units x 5 days, if still 200 increase to 20 units. No Start Date 04/13/2016 Inactive alprazolam 0.5 mg tablet RxNorm: 585646 1 Tablet(s) PO PRN as needed No Start Date 09/15/2015 Inactive cyclobenzaprine 10 mg tablet RxNorm: 013947 1 Tablet(s) PO PRN as needed No Start Date 04/05/2016 Inactive lidocaine 4 % topical patch RxNorm: 6091022 1 Patch TOP on for 12 hours and off for 12 hours No Start Date 04/12/2016 Inactive metoprolol tartrate 50 mg tablet RxNorm: 139709 1 Tablet(s) PO BID No Start Date 11/10/2015 Inactive spironolactone 50 mg tablet RxNorm: 259068 1 Tablet(s) PO BID No Start Date 09/15/2015 Inactive hydrocodone 7.5 mg-acetaminophen 325 mg tablet RxNorm: 860680 1 Tablet(s) PO Q4H as needed No Start Date 09/15/2015 Inactive promethazine 25 mg tablet RxNorm: 323463 1 Tablet(s) PO PRN as needed No Start Date 08/05/2015 Inactive Medication Administered Medication Codes Instructions Start Date Status Kenalog 40 mg/mL suspension for injection RxNorm: 9179394 1Milliliter 04/06/2016 No longer Active Kenalog 40 mg/mL suspension for injection RxNorm: 2400493 1Milliliter 02/28/2016 No longer Active Kenalog 40 mg/mL suspension for injection RxNorm: 0906911 Milliliter 08/20/2015 No longer Active Immunizations Vaccine [...] Code Item Item Code Result Date %Hba1C Xvj146 % HbA1c 37449- 6 11.1 % 2016 %Hba1C Rqc391 Gluc Ave 272 mg/dL 2016 C-Reactive Protein Qnt Crqnt CRP 4.7 mg/dl 2016 Comp Metabolic Oul553 NA 136 mEq/L 2016 Comp Metabolic Vsr652 K 4.1 mEq/L 2016 Comp Metabolic Yyy738 CL 96 mEq/L 2016 Comp Metabolic Oku266 CO2 29.0 mEq/L 2016 Comp Metabolic Cfo270 ANION GAP 15 2016 Comp Metabolic Rmy153 GLUCOSE 291 mg/dL 2016 Comp Metabolic Sxw739 Creat 0.4 mg/dL 2016 Comp Metabolic Kqi615 eGFR 165 ml/min/1.73m2 2016 Comp Metabolic Fah533 BUN 11 mg/dL 2016 Comp Metabolic Ybn186 B/C Ratio 25.0 Ratio 2016 Comp Metabolic Jns045 CALCIUM 9.4 mg/dL 2016 Comp Metabolic Arg707 ALK PHOS 111 U/L 2016 Comp Metabolic Grd940 AST(SGOT) 46 U/L 2016 Comp Metabolic Zdr314 ALT(SGPT) 60 U/L 2016 Comp Metabolic Lpv522 BILI T 0.4 mg/dL 2016 Comp Metabolic Dva932 ALBUMIN 4.0 g/dL 2016 Comp Metabolic Mai679 TPRO 6.5 g/dL 2016 Comp Metabolic Ces621 GLOB 2.6 g/dL 2016 Comp Metabolic Xfd090 A/G Ratio 1.5 Ratio 2016 Comp Metabolic Upn262 Osmo 282 mOsmo 2016 Cbc With Differential [...] 30.5 pg 2016 Cbc With Differential Ord2 Perry% 4.7 % 2016 Cbc With Differential Ord2 [...] 3.53 K/ul 2016 Cbc With Differential Ord2 Perry ABS# 0.7 K/ul 2016 Cbc With Differential Ord2 Eos ABS# 0.2 K/ul 2016 Cbc With Differential Ord2 Baso ABS# 0.1 K/ul 2016 Lipid Ord30 CHOL 228 mg/dL 05/05/2016 Lipid Ord30 HDL 42.0 mg/dl 05/05/2016 Lipid Ord30 TRIG 168 mg/dL 05/05/2016 Lipid Ord30 LDL 152 mg/dL 05/05/2016 Lipid Ord30 C/HDL 5.4 Ratio 05/05/2016 Comp Metabolic Mlp041 NA 135 mEq/L 05/05/2016 Comp Metabolic Iok087 K 4.1 mEq/L 05/05/2016 Comp Metabolic Tla648 CL 99 mEq/L 05/05/2016 Comp Metabolic Nrk856 CO2 29.0 mEq/L 05/05/2016 Comp Metabolic Aow135 ANION GAP 11 05/05/2016 Comp Metabolic Eld772 GLUCOSE 229 mg/dL 05/05/2016 Comp Metabolic Giz735 Creat 0.5 mg/dL 05/05/2016 Comp Metabolic Pgl053 eGFR 150 ml/min/1.73m2 05/05/2016 Comp Metabolic Jxd935 BUN 14 mg/dL 05/05/2016 Comp Metabolic Vbp014 B/C Ratio 29.2 Ratio 05/05/2016 Comp Metabolic Elp614 CALCIUM 9.1 mg/dL 05/05/2016 Comp Metabolic Wmn910 ALK PHOS 112 U/L 05/05/2016 Comp Metabolic Kbv717 AST(SGOT) 59 U/L 05/05/2016 Comp Metabolic Dgp689 ALT(SGPT) 63 U/L 05/05/2016 Comp Metabolic Lrn846 BILI T 0.7 mg/dL 05/05/2016 Comp Metabolic Htw726 ALBUMIN 3.8 g/dL 05/05/2016 Comp Metabolic Bof471 TPRO 6.5 g/dL 05/05/2016 Comp Metabolic Qxi354 GLOB 2.7 g/dL 05/05/2016 Comp Metabolic Huk601 A/G Ratio 1.4 Ratio 05/05/2016 Comp Metabolic Lqh934 Osmo 278 mOsmo 05/05/2016 Cbc With Differential [...] 30.2 pg 05/05/2016 Cbc With Differential Ord2 Perry% 4.4 % 05/05/2016 Cbc With Differential Ord2 [...] 3.59 K/ul 05/05/2016 Cbc With Differential Ord2 Perry ABS# 0.7 K/ul 05/05/2016 Cbc With Differential Ord2 Eos ABS# 0.1 K/ul 05/05/2016 Cbc With Differential Ord2 Baso ABS# 0.1 K/ul 05/05/2016 %Hba1C Dkd991 % HbA1c 28356- 6 10.4 % 05/05/2016 %Hba1C Ajz324 Gluc Ave 252 mg/dL 05/05/2016 Hcg Beta Subunit Qual Serum 518570 B-HCG QUALITATIVE NEGATIVE 12/27/2015 GC/CHL PRB 0198475 Chl trach DNA Negative 12/25/2015 GC/CHL PRB 0764559 GC PROBE Negative 12/25/2015 Comp. Metabolic Panel (14) 89775 GLUCOSE 136 mg/dL 12/17/2015 Comp. Metabolic Panel (14) 76250 BUN 9 mg/dL 12/17/2015 Comp. Metabolic Panel (14) 62525 CREATININE 0.67 mg/dL 12/17/2015 Comp. Metabolic Panel (14) 69886 SODIUM 136 mmol/L 12/17/2015 Comp. Metabolic Panel (14) 24332 POTASSIUM 4.4 mmol/L 12/17/2015 Comp. Metabolic Panel (14) 52180 CHLORIDE 95 mmol/L 12/17/2015 Comp. Metabolic Panel (14) 09217 CARBON DIOXIDE 28 mmol/L 12/17/2015 Comp. Metabolic Panel (14) 50826 CALCIUM 10.1 mg/dL 12/17/2015 Comp. Metabolic Panel (14) 95747 TOTAL PROTEIN 7.0 g/dL 12/17/2015 Comp. Metabolic Panel (14) 20417 ALBUMIN 4.5 g/dL 12/17/2015 Comp. Metabolic Panel (14) 24257 ALKALINE PHOSPHATASE 87 U/L 12/17/2015 Comp. Metabolic Panel (14) 09339 TOTAL BILIRUBIN 0.5 mg/dL 12/17/2015 Comp. Metabolic Panel (14) 92348 SGOT (AST) 38 U/L 12/17/2015 Comp. Metabolic Panel (14) 97826 SGPT (ALT) 41 U/L 12/17/2015 Comp. Metabolic Panel (14) 99139 eGFR (mL/min/1.73m2) >60 12/17/2015 Comp. Metabolic Panel (14) 49929 12/17/2015 Cbc With Differential/Platelet 18912 WBC 16.67 thou/uL 12/17/2015 Cbc With Differential/Platelet 88290 RBC 5.11 mil/uL 12/17/2015 Cbc With Differential/Platelet 96231 HEMOGLOBIN 14.8 g/dL 12/17/2015 Cbc With Differential/Platelet 10612 HEMATOCRIT 48.7 % 12/17/2015 Cbc With Differential/Platelet 71625 MCV 95.4 fL 12/17/2015 Cbc With Differential/Platelet 42952 MCH 29.0 pg 12/17/2015 Cbc With Differential/Platelet 17214 MCHC 30.4 g/dL 12/17/2015 Cbc With Differential/Platelet 70464 RDW-CV 14.6 % 12/17/2015 Cbc With Differential/Platelet 63412 PLATELET COUNT 471 thou/uL 12/17/2015 Cbc With Differential/Platelet 32975 NEUTROPHIL % 71.3 % 12/17/2015 Cbc With Differential/Platelet 77517 LYMPHOCYTE % 22.4 % 12/17/2015 Cbc With Differential/Platelet 60514 MONOCYTE % 4.8 % 12/17/2015 Cbc With Differential/Platelet 44207 EOS % 0.7 % 12/17/2015 Cbc With Differential/Platelet 78468 BASO % 0.7 % 12/17/2015 Cbc With Differential/Platelet 27460 NEUTROPHIL ABS # 11.89 thou/uL 12/17/2015 Cbc With Differential/Platelet 22007 LYMPH ABS # 3.73 thou/uL 12/17/2015 Cbc With Differential/Platelet 42899 MONOCYTE ABS # 0.80 thou/uL 12/17/2015 Cbc With Differential/Platelet 32341 EOS ABS # 0.12 thou/uL 12/17/2015 Cbc With Differential/Platelet 04129 BASO ABS # 0.12 thou/uL 12/17/2015 Comp. [...] Hgb A1C With Eag Estimation GLYCOHEMOGLOBIN A1C 22116-6 8.1 % 11/13/2015 Hgb A1C With Eag Estimation ESTIMATED AVG GLUCOSE 186 mg/dL 11/13/2015 Comp. Metabolic Panel (14) 05239 GLUCOSE 84 mg/dL 09/11/2015 Comp. Metabolic Panel (14) 93264 BUN 11 mg/dL 09/11/2015 Comp. Metabolic Panel (14) 33036 CREATININE 0.56 mg/dL 09/11/2015 Comp. Metabolic Panel (14) 30304 SODIUM 142 mmol/L 09/11/2015 Comp. Metabolic Panel (14) 79558 POTASSIUM 4.3 mmol/L 09/11/2015 Comp. Metabolic Panel (14) 07002 CHLORIDE 98 mmol/L 09/11/2015 Comp. Metabolic Panel (14) 87928 CARBON DIOXIDE 27 mmol/L 09/11/2015 Comp. Metabolic Panel (14) 07523 CALCIUM 10.1 mg/dL 09/11/2015 Comp. Metabolic Panel (14) 12396 TOTAL PROTEIN 7.2 g/dL 09/11/2015 Comp. Metabolic Panel (14) 79575 ALBUMIN 4.7 g/dL 09/11/2015 Comp. Metabolic Panel (14) 30305 ALKALINE PHOSPHATASE 109 U/L 09/11/2015 Comp. Metabolic Panel (14) 24002 TOTAL BILIRUBIN 0.3 mg/dL 09/11/2015 Comp. Metabolic Panel (14) 67844 SGOT (AST) 53 U/L 09/11/2015 Comp. Metabolic Panel (14) 36218 SGPT (ALT) 53 U/L 09/11/2015 Comp. Metabolic Panel (14) 65892 eGFR (mL/min/1.73m2) >60 09/11/2015 Comp. Metabolic Panel (14) 35762 09/11/2015 Comp. Metabolic Panel (14) 89705 GLUCOSE 183 mg/dL 08/11/2015 Comp. Metabolic Panel (14) 28279 BUN 10 mg/dL 08/11/2015 Comp. Metabolic Panel (14) 97372 CREATININE 0.46 mg/dL 08/11/2015 Comp. Metabolic Panel (14) 54290 SODIUM 138 mmol/L 08/11/2015 Comp. Metabolic Panel (14) 13782 POTASSIUM 4.0 mmol/L 08/11/2015 Comp. Metabolic Panel (14) 78187 CHLORIDE 98 mmol/L 08/11/2015 Comp. Metabolic Panel (14) 98376 CARBON DIOXIDE 29 mmol/L 08/11/2015 Comp. Metabolic Panel (14) 24659 CALCIUM 9.4 mg/dL 08/11/2015 Comp. Metabolic Panel (14) 36677 TOTAL PROTEIN 6.8 g/dL 08/11/2015 Comp. Metabolic Panel (14) 60585 ALBUMIN 4.4 g/dL 08/11/2015 Comp. Metabolic Panel (14) 05022 ALKALINE PHOSPHATASE 118 U/L 08/11/2015 Comp. Metabolic Panel (14) 80567 TOTAL BILIRUBIN <0.3 mg/dL 08/11/2015 Comp. Metabolic Panel (14) 06095 SGOT (AST) 41 U/L 08/11/2015 Comp. Metabolic Panel (14) 22158 SGPT (ALT) 55 U/L 08/11/2015 Comp. Metabolic Panel (14) 72998 eGFR (mL/min/1.73m2) >60 08/11/2015 Comp. Metabolic Panel (14) 21196 08/11/2015 Cbc With Differential/Platelet 38811 WBC 11.76 thou/uL 08/11/2015 Cbc With Differential/Platelet 77603 RBC 4.98 mil/uL 08/11/2015 Cbc With Differential/Platelet 45191 HEMOGLOBIN 14.2 g/dL 08/11/2015 Cbc With Differential/Platelet 93014 HEMATOCRIT 46.7 % 08/11/2015 Cbc With Differential/Platelet 83316 MCV 93.8 fL 08/11/2015 Cbc With Differential/Platelet 67505 MCH 28.5 pg 08/11/2015 Cbc With Differential/Platelet 73904 MCHC 30.4 g/dL 08/11/2015 Cbc With Differential/Platelet 64535 RDW-CV 14.3 % 08/11/2015 Cbc With Differential/Platelet 37908 PLATELET COUNT 382 thou/uL 08/11/2015 Cbc With Differential/Platelet 40462 NEUTROPHIL % 67.3 % 08/11/2015 Cbc With Differential/Platelet 57486 LYMPHOCYTE % 24.0 % 08/11/2015 Cbc With Differential/Platelet 63240 MONOCYTE % 6.0 % 08/11/2015 Cbc With Differential/Platelet 10994 EOS % 1.6 % 08/11/2015 Cbc With Differential/Platelet 76350 BASO % 1.0 % 08/11/2015 Cbc With Differential/Platelet 54575 NEUTROPHIL ABS # 7.91 thou/uL 08/11/2015 Cbc With Differential/Platelet 75083 LYMPH ABS # 2.82 thou/uL 08/11/2015 Cbc With Differential/Platelet 26674 MONOCYTE ABS # 0.71 thou/uL 08/11/2015 Cbc With Differential/Platelet 27319 EOS ABS # 0.19 thou/uL 08/11/2015 Cbc With Differential/Platelet 71827 BASO ABS # 0.12 thou/uL 08/11/2015 Tsh 201718 TSH 3.220 uIU/mL 08/11/2015 Lipid Panel 94628 CHOLESTEROL 193 mg/dL 08/11/2015 Lipid Panel 78636 TRIGLYCERIDES 192 mg/dL 08/11/2015 Lipid Panel 14710 HDL 38 mg/dL 08/11/2015 Lipid Panel 52947 CHOLESTEROL/HDL 5.08 08/11/2015 Lipid Panel 01842 LDL (CALCULATED) 117 mg/dL 08/11/2015 Lipid Panel 49913 LDL/HDL 3.08 08/11/2015 Lipid Panel 75947 PHENOTYPE TYPE IV BORDERLINE 08/11/2015 Review of [...] Procedure Codes Date THER/PROPH/DIAG INJ SC/IM CPT-4: 30145Ttcevoy 04/13/2016 Pneumococcal Polysaccharide Vaccine, 23-Valent, Ad CPT-4: 08907Udpyeec 04/13/2016 INJECT TRIGGER POINTS 3/> CPT-4: 14738Jnxignr 04/06/2016 TRIAMCINOLONE ACET INJ NOS CPT-4: C1254Vgxvchf 04/06/2016 IMMUNIZATION ADMIN CPT-4: 70345Epbybdz 03/30/2016 IIV4 FLU VACC NO PRESERV ID SNOMED CT: 44193097 CPT-4: 59042Zlgfmzc 03/30/2016 TRIAMCINOLONE ACET INJ NOS CPT-4: V7909Nziybsh 02/28/2016 THER/PROPH/DIAG INJ SC/IM CPT-4: 57345Fvnipgw 02/28/2016 TRIAMCINOLONE ACET INJ NOS CPT-4: Y7215Mhxxwjv 08/20/2015 Vital Signs Date Vital 10/30/2016 Blood Pressure 1: 124/78 Code: 8480-6 BMI: 49.1 Code: 62393-0 Heart Rate 1: 90 bpm Height: 4'11" SpO2: 97% Weight: 243 lbs 10/09/2016 Blood Pressure 1: 124/80 Code: 8480-6 BMI: 49.3 Code: 29922-3 Heart Rate 1: 91 bpm Height: 4'11" SpO2: 98% Weight: 244 lbs 09/12/2016 Blood Pressure 1: 128/80 Code: 8480-6 BMI: 49.1 Code: 27906-5 Heart Rate 1: 94 bpm Height: 4'11" SpO2: 95% Weight: 243 lbs 09/05/2016 Blood Pressure 1: 118/74 Code: 8480-6 BMI: 49.1 Code: 06104-2 Heart Rate 1: 100 bpm Height: 4'11" SpO2: 97% Weight: 243 lbs 06/16/2016 Blood Pressure 1: 120/62 Code: 8480-6 BMI: 49.1 Code: 40754-0 Heart Rate 1: 100 bpm Height: 4'11" SpO2: 96% Temperature: 36.7 (C) / 98.0 (F) Weight: 243 lbs 06/13/2016 Blood Pressure 1: 120/70 Code: 8480-6 Heart Rate 1: 117 bpm SpO2: 97% 05/19/2016 Blood Pressure 1: 130/64 Code: 8480-6 BMI: 49.1 Code: 09995-4 Heart Rate 1: 101 bpm Height: 4'11" SpO2: 96% Weight: 243 lbs 05/08/2016 Blood Pressure 1: 128/76 Code: 8480-6 Heart Rate 1: 119 bpm Height: SpO2: 97% Weight: 05/05/2016 Blood Pressure 1: 124/76 Code: 8480-6 BMI: 49.1 Code: 92912-9 Heart Rate 1: 75 bpm Height: 4'11" SpO2: 99% Weight: 243 lbs 04/10/2016 Blood Pressure 1: 140/80 Code: 8480-6 BMI: 49.7 Code: 50013-1 Heart Rate 1: 88 bpm Height: 4'11" SpO2: 95% Weight: 246 lbs 04/06/2016 Blood Pressure 1: 134/82 Code: 8480-6 BMI: 75.1 Code: 19597-7 Heart Rate 1: 72 bpm Height: 4' SpO2: 96% Weight: 246 lbs 03/08/2016 Blood Pressure 1: 126/72 Code: 8480-6 BMI: 49.7 Code: 77101-7 Heart Rate 1: 89 bpm Height: 4'11" SpO2: 97% Weight: 246 lbs 02/28/2016 Blood Pressure 1: 124/68 Code: 8480-6 BMI: 49.7 Code: 38857-8 Heart Rate 1: 89 bpm Height: 4'11" SpO2: 96% Weight: 246 lbs 01/18/2016 Blood Pressure 1: 142/78 Code: 8480-6 BMI: 48.9 Code: 99145-3 Heart Rate 1: 97 bpm Height: 4'11" SpO2: 97% Weight: 242 lbs 12/23/2015 Blood Pressure 1: 124/74 Code: 8480-6 BMI: 48.9 Code: 49847-4 Heart Rate 1: 106 bpm Height: 4'11" SpO2: 96% Weight: 242 lbs 12/16/2015 Blood Pressure 1: 116/82 Code: 8480-6 BMI: 48.3 Code: 05125-4 Heart Rate 1: 111 bpm Height: 4'11" SpO2: 97% Weight: 239 lbs 11/11/2015 Blood Pressure 1: 130/80 Code: 8480-6 BMI: 49.7 Code: 49107-4 Heart Rate 1: 105 bpm Height: 4'11" SpO2: 96% Weight: 246 lbs 10/27/2015 Blood Pressure 1: 122/70 Code: 8480-6 BMI: 49.5 Code: 37342-4 Heart Rate 1: 107 bpm Height: 4'11" SpO2: 96% Weight: 245 lbs 10/13/2015 Blood Pressure 1: 140/82 Code: 8480-6 BMI: 50.9 Code: 68528-7 Heart Rate 1: 111 bpm Height: 4'11" SpO2: 96% Weight: 252 lbs 10/05/2015 Blood Pressure 1: 118/70 Code: 8480-6 BMI: 51.1 Code: 38009-1 Heart Rate 1: 120 bpm Height: 4'11" SpO2: 97% Weight: 253 lbs 09/01/2015 Blood Pressure 1: 132/82 Code: 8480-6 BMI: 50.1 Code: 10227-2 Heart Rate 1: 110 bpm Height: 4'11" SpO2: 96% Weight: 248 lbs 08/20/2015 Blood Pressure 1: 132/78 Code: 8480-6 BMI: 51.7 Code: 85921-0 Heart Rate 1: 100 bpm Height: 4'11" Weight: 256 lbs 08/03/2015 Blood Pressure 1: 148/92 Code: 8480-6 BMI: 52.1 Code: 32279-3 Heart Rate 1: 100 bpm Height: 4'11" [...] data Encounters Encounter Performer Location Codes Date 15676 EST. PATIENT, LEVEL IV Diagnosis: Candidiasis of vulva and vagina[ICD10: B37.3] Diagnosis: Type 2 diabetes mellitus with hyperglycemia[ICD10: E11.65] Gloria Hess MD, [facility] CPT-4: 45237 10/30/2016 53710 EST. PATIENT, LEVEL III Diagnosis: Candidiasis of vulva and vagina[ICD10: B37.3] Diagnosis: Type 2 diabetes mellitus with hyperglycemia[ICD10: E11.65] Gloria Hess MD, [facility] CPT-4: 56209 10/09/2016 92302 EST. PATIENT, LEVEL IV Diagnosis: Umbilical hernia without obstruction or gangrene[ICD10: K42.9] Gloria Hess MD, [facility] CPT-4: 86496 09/12/2016 60619 EST. PATIENT, LEVEL III Diagnosis: Epigastric pain[ICD10: R10.13] Diagnosis: Candidiasis of vulva and vagina[ICD10: B37.3] Diagnosis: Type 2 diabetes mellitus with hyperglycemia[ICD10: E11.65] Gloria Hess MD, [facility] CPT-4: 08530 09/05/2016 32597 EST. PATIENT, LEVEL III Diagnosis: Acute laryngopharyngitis[ICD10: J06.0] Diagnosis: Other allergic rhinitis[ICD10: J30.89] Gloria Hess MD, [facility] CPT- 4: 01113 06/16/2016 98846 EST. PATIENT, LEVEL III Diagnosis: Type 2 diabetes mellitus with hyperglycemia[ICD10: E11.65] Diagnosis: Other obesity due to excess calories[ICD10: E66.09] Gloria Hess MD, [facility] CPT-4: 46883 06/13/2016 66719 EST. PATIENT, LEVEL III Diagnosis: Type 2 diabetes mellitus with hyperglycemia[ICD10: E11.65] Diagnosis: Other obesity due to excess calories[ICD10: E66.09] Gloria Hess MD, [facility] CPT-4: 17203 05/19/2016 03029 EST. PATIENT, LEVEL III Diagnosis: Type 2 diabetes mellitus with hyperglycemia[ICD10: E11.65] Diagnosis: Other obesity due to excess calories[ICD10: E66.09] Gloria Hess MD, [facility] CPT-4: 18298 05/08/2016 25068 EST. PATIENT, LEVEL III Diagnosis: Type 2 diabetes mellitus without complications[ICD10: E11.9] Gloria Hess MD, [facility] CPT-4: 74816 05/05/2016 44564 EST. PATIENT, LEVEL III Diagnosis: Pain in right shoulder[ICD10: M25.511] Gloria Hess MD, [facility] CPT- 4: 81117 04/10/2016 62382 EST. PATIENT, LEVEL III Diagnosis: Pain in right shoulder[ICD10: M25.511] Diagnosis: Other muscle spasm[ICD10: M62.838] Diagnosis: Type 2 diabetes mellitus without complications[ICD10: E11.9] Gloria Hess MD, [facility] CPT-4: 85314 04/06/2016 75663 EST. PATIENT, LEVEL IV Diagnosis: Acute bronchitis due to other specified organisms[ICD10: J20.8] Diagnosis: Other acute sinusitis[ICD10: J01.80] Diagnosis: Acne vulgaris[ICD10: L70.0] Diagnosis: Morbid (severe) obesity due to excess calories[ICD10: E66.01] Gloria Hess MD, [facility] CPT-4: 95812 03/08/2016 76664 EST. PATIENT, LEVEL IV Diagnosis: Other acute sinusitis[ICD10: J01.80] Diagnosis: Localized enlarged lymph nodes[ICD10: R59.0] Gloria Hess MD, [facility] CPT-4: 81410 02/28/2016 12954 EST. PATIENT, LEVEL III Diagnosis: Type 2 diabetes mellitus without complications[ICD10: E11.9] Gloria Hess MD, [facility] CPT-4: 45434 01/18/2016 (05700) PREV VISIT EST AGE 40-64 Diagnosis: Encounter for gynecological examination (general) (routine) without abnormal findings[ICD10: Z01.419] Diagnosis: Excessive and frequent menstruation with irregular cycle[ICD10: N92.1] Gloria Hess MD, [facility] CPT-4: 17714 12/23/2015 17877 EST. PATIENT, LEVEL III Diagnosis: Type 2 diabetes mellitus without complications[ICD10: E11.9] Gloria Hess MD, [facility] CPT-4: 66157 12/16/2015 92941 EST. PATIENT, LEVEL III Diagnosis: Type 2 diabetes mellitus without complications[ICD10: E11.9] Diagnosis: Other obesity due to excess calories[ICD10: E66.09] Gloria Hess MD, [facility] CPT-4: 76723 11/11/2015 10975 EST. PATIENT, LEVEL III Diagnosis: Type 2 diabetes mellitus without complications[ICD10: E11.9] Diagnosis: Other obesity due to excess calories[ICD10: E66.09] Gloria Hess MD, [facility] CPT-4: 35645 10/27/2015 94760 EST. PATIENT, LEVEL III Diagnosis: Type 2 diabetes mellitus without complications[ICD10: E11.9] Diagnosis: Other obesity due to excess calories[ICD10: E66.09] Diagnosis: Other insomnia[ICD10: G47.09] Gloria Hess MD, [facility] CPT-4: 23811 10/13/2015 86219 EST. PATIENT, LEVEL IV Diagnosis: Acute recurrent maxillary sinusitis[ICD10: J01.01] Diagnosis: Allergic rhinitis due to pollen[ICD10: J30.1] Diagnosis: Other obesity due to excess calories[ICD10: E66.09] Gloria Hess MD, [facility] CPT-4: 12846 10/05/2015 74640 EST. PATIENT, LEVEL IV Diagnosis: Polycystic ovarian syndrome[ICD10: E28.2] Diagnosis: Other skin changes[ICD10: R23.8] Diagnosis: Other abnormal glucose[ICD10: R73.09] Gloria Hess MD, [facility] CPT- 4: 63744 09/01/2015 57276 EST. PATIENT, LEVEL IV Diagnosis: Acute recurrent maxillary sinusitis[ICD10: J01.01] Diagnosis: Morbid (severe) obesity due to excess calories[ICD10: E66.01] Diagnosis: Essential (primary) hypertension[ICD10: I10] Diagnosis: Allergic rhinitis due to pollen[ICD10: J30.1] [facility] CPT-4: 84956 08/20/2015 (15819) OFFICE VISIT, NEW - LEVEL 4 Diagnosis: Essential (primary) hypertension[ICD10: I10] Diagnosis: Obstructive sleep apnea (adult) (pediatric)[ICD10: G47.33] Diagnosis: Other insomnia[ICD10: G47.09] Diagnosis: Snoring[ICD10: R06.83] Diagnosis: Morbid (severe) obesity due to excess calories[ICD10: E66.01] [facility] CPT-4: 86810 08/03/2015 Plan of Care Planned Activity Notes Codes Status Date Visit Plan: Vaginal candidiasis - will send RX - pt is to notify clinic if symptoms do not improve, if they worsen, or with any questions or concerns. Diabetes Mellitus - Uncontrolled - Will refer to dairy manufacturing technologist - I have recommended for the patient [...] Mellitus - Uncontrolled - Will refer to dairy manufacturing technologist - I have recommended for the patient [...] control. 10/09/2016 Appointment: [phone] [place] ([place] Complex 10/09/2016 Patient Education: Patient Medication Summary Completed 10/09/2016 Patient Education: Obesity Completed 10/09/2016 Referral: Roni Roberts Referral Completed 09/18/2016 Care Plan: CT ABD & PELV W/CONTRAST LOINC : 71934-1 Pending 09/13/2016 Care Plan: Referral Order SNOMED-CT : 342521954 Pending 09/13/2016 Visit Plan: Ongoing abdominal pain/hernia - will send RX - will refer - pt is to notify clinic if symptoms do not improve, if they worsen, or with any questions or concerns. 09/12/2016 Appointment: Gloria Scott [phone] [place] ([place]) Complex 09/12/2016 Patient Education: Patient Medication Summary Completed 09/12/2016 Patient Education: Obesity Completed 09/12/2016 Care Plan: Referral Order SNOMED-CT : [id number] Pending 09/12/2016 Visit Plan: Ongoing abdominal/epigastric pain [...] control. 09/05/2016 Appointment: Gloria Scott WPtel: [phone] [facility] (30 min) Complex 09/05/2016 Patient Education: Patient [...] spray. 06/16/2016 Appointment: Gloria Scott WPtel: [phone] [facility] (10 min) Simple 06/16/2016 Patient Education: [...] check. 06/13/2016 Appointment: Gloria Scott WPtel: [phone] [facility] (30 min) Complex 06/13/2016 Patient Education: Patient Medication Summary Completed 06/13/2016 Patient Education: Obesity Completed 06/13/2016 Appointment: Gloria Scott WPtel: [phone] [facility] (30 min) Complex 06/08/2016 Visit Plan: [...] check. 05/19/2016 Appointment: Tamy Lugo WPtel: [phone] [phone] [place] (30 min) Complex 05/19/2016 Patient [...] weight check. 05/08/2016 Appointment: Gloria Scott WPtel: [phone] [facility] [place] (15 min) Moderate 05/08/2016 Patient Education: [...] the morning. 05/05/2016 Appointment: Tamy Lugo WPtel: [phone] [phone] (15 min) Moderate 05/05/2016 Patient Education: Patient Medication Summary Completed 05/05/2016 Patient Education: Obesity Completed 05/05/2016 Care Plan: Comp Metabolic Pending 05/05/2016 Appointment: Jocelyn Hess WPtel: [facility] Surgical Procedure 04/17/2016 Appointment: Injection 04/13/2016 Patient Education: Patient Medication Summary Completed 04/13/2016 Visit Plan: Right shoulder pain - will refer to PT - The pt is to use prn antiinflammatories to manage acute pain. The patient is to call the office if the pain is worsening or does not improve. 04/10/2016 Appointment: Gloria Scott WPtel: [phone] [phone] (30 min) Complex 04/10/2016 Patient Education: [...] glucose control. 04/06/2016 Appointment: [facility] Scott [facility] [phone] [place] ([place] min) Moderate 04/06/2016 Patient Education: Patient [...] order US 02/28/2016 Appointment: Gloria Scott WPtel: [phone] [place] ([place] min) Complex 02/28/2016 Patient Education: Patient Medication Summary Completed 02/28/2016 Patient Education: Obesity Completed 02/28/2016 Appointment: Gloria Scott WPtel: [phone] [place] (15 min) Moderate 01/31/2016 Visit Plan: Diabetes [...] prn. 12/23/2015 Appointment: Gloria Scott [facility]Ptel: [phone] [place] [facility] 12/23/2015 Patient Education: Patient Medication [...] %Hba1C ADD TO BLOOD IN THE LAB. [facility] : 21754-0 Pending 08/13/2015 Visit Plan: Hypertension - uncontrolled [...] Mellitus - Uncontrolled - Will refer to dairy manufacturing technologist - I have recommended for the patient [...] Mellitus - Uncontrolled - Will refer to dairy manufacturing technologist - I have recommended for the patient [...]
--- OUTSIDE RECORDS SUMMARY | 2018-12-17 03:15 | XMS REPORT | CCD ---
Author Author Gloria Scott MD, [facility] Address [address] [place] [address] Phone Care Team Providers Care [employer]ck[employer] Name Role Phone PP Unavailable CCM Unavailable Summary Purpose Interface Exchange Insurance Providers Payer name Policy type / Coverage type Covered green party ID Effective Begin Date Effective End Date [facility] Commercial Insurance [id number] Unknown Unknown Family history Father Diagnosis Age At Onset Hypertension Unknown Arthritis Unknown Mother Diagnosis Age At Onset Arthritis Unknown Hyperlipidemia Unknown Daughter Diagnosis Age At Onset Asthma Unknown Social History Social History Element Codes Description Effective Dates Marital status Unknown Darin 08/03/2015 Number of children Unknown 1 08/03/[address]: 4942175 Quit less than 5 years ago 08/03/2015 [...] Codes Condition Status Onset Date Resolved Date Essential (primary) hypertension ICD-9: 401.1 ICD-10: I10 Active 08/06/2018 Unknown Hidradenitis suppurativa ICD-9: 705.83 ICD-10: L73.2 Active 07/22/2018 Unknown Encounter for other specified surgical aftercare ICD-9: V58.49 ICD-10: Z48.89 Active 07/18/2018 Unknown Cellulitis of right axilla ICD-9: 682.3 ICD-10: L03.111 Active 06/05/2018 Unknown Diarrhea, unspecified ICD- 9: 787.91 ICD-10: R19.7 Active 06/28/2018 Unknown Type [...] Problems Condition Codes Effective Dates Condition Status Essential (primary) hypertension ICD-9: 401.1 ICD-10: I10 08/06/2018 Active Hidradenitis suppurativa ICD-9: 705.83 ICD-10: L73.2 07/22/2018 Active Encounter for other specified surgical aftercare ICD-9: V58.49 ICD-10: Z48.89 07/18/2018 Active Cellulitis of right axilla ICD-9: 682.3 ICD-10: L03.111 06/05/2018 Active Diarrhea, unspecified ICD- 9: 787.91 ICD-10: R19.7 06/28/2018 Active Type 2 [...] Fill Instructions ibuprofen 800 mg tablet RxNorm: 262770 1 Tablet(s) PO TID as needed for pain 09/05/2018 09/14/2018 Active Phenergan with Codeine Syrup RxNorm: 5-10 ML PO QID as needed cough 08/08/2018 No Stop Date Active alprazolam 0.25 mg tablet RxNorm: 523889 1 Tablet(s) PO daily as needed anxiety 08/08/2018 No Stop Date Active Zithromax Z-Rashid 250 mg tablet RxNorm: 980631 1 Tablet(s) PO UD 08/06/2018 No Stop Date Active metoprolol succinate ER 100 mg tablet,extended release 24 hr RxNorm: 484572 Tablet(s) TAKE ONE TABLET BY MOUTH ONCE DAILY 08/06/2018 No Stop Date Active ibuprofen 800 mg tablet RxNorm: 694202 1 Tablet(s) PO TID as needed for pain 08/06/2018 08/15/2018 Inactive metoprolol succinate ER 50 mg tablet,extended release 24 hr RxNorm: 560688 1 Tablet(s) PO daily 08/06/2018 09/04/2018 Inactive Lyrica 100 mg capsule RxNorm: 979593 1 Capsule(s) PO TID 07/25/2018 10/16/2018 Active Lyrica 100 mg capsule RxNorm: 219654 1 Capsule(s) PO TID 07/25/2018 07/24/2018 Inactive mupirocin 2 % topical ointment RxNorm: 338974 1 Application TOP daily 07/22/2018 07/28/2018 Inactive ibuprofen 800 mg tablet RxNorm: 495458 1 Tablet(s) PO TID as needed for pain 07/22/2018 07/31/2018 Inactive hydrocodone 7.5 mg-acetaminophen 325 mg tablet RxNorm: 629758 1 Tablet(s) PO Q4H as needed 07/18/2018 08/16/2018 Inactive promethazine 25 mg tablet RxNorm: 460104 TABLET(S) TAKE ONE TABLET BY MOUTH EVERY 6 TO 8 HOURS NEEDED 07/05/2018 No Stop Date Active hyoscyamine 0.125 mg sublingual tablet RxNorm: 7265540 1 Tablet(s) SL TID as needed diarrhea 06/28/2018 07/07/2018 Inactive mupirocin 2 % topical ointment RxNorm: 868037 1 Application TOP BID 06/17/2018 06/26/2018 Inactive mupirocin 2 % topical ointment RxNorm: 074241 1 Application TOP BID 06/05/2018 No Stop Date Active Keflex 500 mg capsule RxNorm: 432591 1 Capsule(s) PO TID 06/05/2018 06/11/2018 Inactive ceftriaxone 500 mg solution for injection RxNorm: 1914500 Inj 06/05/2018 06/05/2018 Inactive Diflucan 150 mg tablet RxNorm: 646038 1 Tablet(s) PO daily 06/05/2018 07/02/2018 Inactive Protonix 40 mg tablet,delayed release RxNorm: 959992 1 Tablet(s) PO BID x 1 week then daily 03/26/2018 No Stop Date Active Phenergan with Codeine Syrup RxNorm: 5-10 ML PO QID as needed cough 03/19/2018 08/07/2018 Inactive promethazine 25 mg tablet RxNorm: 770475 Tablet(s) TAKE ONE TABLET BY MOUTH EVERY 6 TO 8 HOURS NEEDED 03/15/2018 07/04/2018 Inactive Singulair 10 mg tablet RxNorm: 101042 1 Tablet(s) PO daily 03/14/2018 04/12/2018 Inactive metoprolol succinate ER 100 mg tablet,extended release 24 hr RxNorm: 634400 1 Tablet(s) PO daily 03/07/2018 04/05/2018 Inactive Zithromax Z-Rashid 250 mg tablet RxNorm: 508232 1 Tablet(s) PO UD 03/07/2018 03/07/2018 Inactive prednisone 20 mg tablet RxNorm: 846193 2 Tablet(s) PO daily 03/07/2018 03/11/2018 Inactive albuterol sulfate 2.5 mg/3 mL (0.083 %) solution for nebulization RxNorm: 251701 3 Milliliter(s) INH Q4-6H as needed dyspnea 02/19/2018 No Stop Date Active Diflucan 150 mg tablet RxNorm: 854351 Tablet(s) TAKE ONE TABLET BY MOUTH ONCE DAILY FOR 7 DAYS THEN TAKE ONE TABLET BY MOUTH ONCE A WEEK 02/19/2018 06/04/2018 Inactive Levaquin 500 mg tablet RxNorm: 644158 1 Tablet(s) PO daily 02/19/2018 02/25/2018 Inactive prednisone 20 mg tablet RxNorm: 586807 2 Tablet(s) PO daily 02/19/2018 02/23/2018 Inactive Kenalog 40 mg/mL suspension for injection RxNorm: 6414187 15. Milliliter(s) Inj 02/19/2018 02/19/2018 Inactive hydrocodone 7.5 mg-acetaminophen 325 mg tablet RxNorm: 425923 1 Tablet(s) PO Q4H as needed 02/05/2018 03/06/2018 Inactive clindamycin HCl 300 mg capsule RxNorm: 849777 1 Capsule(s) PO TID 01/09/2018 01/15/2018 Inactive promethazine 25 mg tablet RxNorm: 745882 Tablet(s) TAKE ONE TABLET BY MOUTH EVERY 6 TO 8 HOURS NEEDED 01/08/2018 03/14/2018 Inactive Diflucan 150 mg tablet RxNorm: 565041 Tablet(s) TAKE ONE TABLET BY MOUTH ONCE DAILY FOR 7 DAYS THEN TAKE ONE TABLET BY MOUTH ONCE A WEEK 01/08/2018 02/18/2018 Inactive Bactrim DS 800 mg-160 mg tablet RxNorm: 082363 1 Tablet(s) PO BID 01/08/2018 01/17/2018 Inactive prednisone 20 mg tablet RxNorm: 201326 2 Tablet(s) PO daily 11/23/2017 11/27/2017 Inactive Zithromax Z-Rashid 250 mg tablet RxNorm: 876026 1 Tablet(s) PO UD 09/05/2017 02/11/2018 Inactive Kenalog 40 mg/mL suspension for injection RxNorm: 4939089 Milliliter(s) Inj 09/05/2017 09/05/2017 Inactive prednisone 20 mg tablet RxNorm: 425511 2 Tablet(s) PO daily 09/05/2017 09/09/2017 Inactive ibuprofen 800 mg tablet RxNorm: 538792 1 Tablet(s) PO TID 07/27/2017 02/21/2018 Inactive alprazolam 0.5 mg tablet RxNorm: 055899 1 Tablet(s) PO Q8 as needed 06/20/2017 07/09/2017 Inactive metoprolol succinate ER 100 mg tablet,extended release 24 hr RxNorm: 910417 TAKE ONE TABLET BY MOUTH ONCE DAILY 06/20/2017 08/05/2018 Inactive Zithromax Z-Rashid 250 mg tablet RxNorm: 765418 1 Tablet(s) PO UD 06/15/2017 07/25/2017 Inactive Xopenex HFA 45 mcg/actuation aerosol inhaler RxNorm: 586329 INHALE ONE PUFF INTO LUNGS NEEDED 06/13/2017 07/14/2017 Inactive Xopenex 1.25 mg/3 mL solution for nebulization RxNorm: 824977 Milliliter(s) USE ONE VIAL IN NEBULIZER THREE TIMES DAILY 06/08/2017 No Stop Date Active Flovent HFA 44 mcg/actuation aerosol inhaler RxNorm: 378861 2 Puff(s) INH BID 06/08/2017 No Stop Date Active potassium chloride ER 10 mEq tablet,extended release RxNorm: 201880 1 Tablet(s) PO daily 06/08/2017 06/10/2017 Inactive Lasix 20 mg tablet RxNorm: 908849 1 Tablet(s) PO daily 06/08/2017 06/10/2017 Inactive Xopenex HFA 45 mcg/actuation aerosol inhaler RxNorm: 688797 INHALE ONE PUFF INTO LUNGS NEEDED 06/08/2017 06/12/2017 Inactive triamcinolone acetonide 0.025 % topical cream RxNorm: 6071017 1 Application TOP BID 06/07/2017 No Stop Date Active ibuprofen 800 mg tablet RxNorm: 245624 1 Tablet(s) PO TID 06/07/2017 07/06/2017 Inactive cyclobenzaprine 5 mg tablet RxNorm: 532204 1/2 Tablet(s) PO TID as needed muscle spasms 05/28/2017 06/01/2017 Inactive Diflucan 150 mg tablet RxNorm: 638205 TAKE ONE TABLET BY MOUTH ONCE DAILY FOR 7 DAYS THEN TAKE ONE TABLET BY MOUTH ONCE A WEEK 05/28/2017 01/07/2018 Inactive bumetanide 1 mg tablet RxNorm: 011166 TAKE ONE TABLET BY MOUTH TWICE DAILY 05/25/2017 No Stop Date Active meloxicam 7.5 mg tablet RxNorm: 919329 1 Tablet(s) PO daily as needed 05/25/2017 07/23/2017 Inactive Xopenex 1.25 mg/3 mL solution for nebulization RxNorm: 847520 USE ONE VIAL IN NEBULIZER THREE TIMES DAILY 05/25/2017 06/07/2017 Inactive Protonix 40 mg tablet,delayed release RxNorm: 201554 1 Tablet(s) PO daily 05/08/2017 11/03/2017 Inactive Protonix 40 mg tablet,delayed release RxNorm: 056294 1 Tablet(s) PO daily 05/04/2017 05/03/2017 Inactive Protonix 40 mg tablet,delayed release RxNorm: 917051 1 Tablet(s) PO daily 05/04/2017 05/07/2017 Inactive meloxicam 7.5 mg tablet RxNorm: 939050 1 Tablet(s) PO daily as needed 04/25/2017 04/24/2017 Inactive meloxicam 7.5 mg tablet RxNorm: 045064 1 Tablet(s) PO daily as needed 04/25/2017 05/04/2017 Inactive promethazine 25 mg tablet RxNorm: 737506 TAKE ONE TABLET BY MOUTH EVERY 6 TO 8 HOURS NEEDED 04/25/2017 01/07/2018 Inactive Kenalog 40 mg/mL suspension for injection RxNorm: 8976455 1 Milliliter(s) Inj 04/24/2017 04/24/2017 Inactive cyclobenzaprine 5 mg tablet RxNorm: 635503 1/2 Tablet(s) PO TID as needed muscle spasms 04/24/2017 04/28/2017 Inactive Xopenex HFA 45 mcg/actuation aerosol inhaler RxNorm: 124128 INHALE ONE PUFF INTO LUNGS NEEDED 03/30/2017 04/14/2017 Inactive Humalog KwikPen 200 unit/mL (3 mL) subcutaneous RxNorm: 1434909 INJECT 35 UNITS SUBCUTANEOUSLY BEFORE MEAL(S) 03/30/2017 06/05/2017 Inactive promethazine 25 mg tablet RxNorm: 303883 Tablet(s) TAKE ONE TABLET BY MOUTH EVERY 6 TO 8 HOURS NEEDED 03/12/2017 03/26/2017 Inactive cyclobenzaprine 10 mg tablet RxNorm: 480572 TAKE ONE TABLET BY MOUTH ONCE DAILY NEEDED 03/06/2017 03/15/2017 Inactive lidocaine 5 % topical patch RxNorm: 9843914 USE ONE PATCH TOPICALLY DAILY. 12 HOURS ON AND THEN 12 HOURS OFF. 03/06/2017 03/15/2017 Inactive Humalog KwikPen 200 unit/mL (3 mL) subcutaneous RxNorm: 4513757 INJECT 35 UNITS SUBCUTANEOUSLY BEFORE MEAL(S) 02/20/2017 03/25/2017 Inactive promethazine 25 mg tablet RxNorm: 556524 Tablet(s) TAKE ONE TABLET BY MOUTH EVERY 6 TO 8 HOURS NEEDED 02/20/2017 03/06/2017 Inactive Xopenex HFA 45 mcg/actuation aerosol inhaler RxNorm: 483892 INHALE ONE PUFF INTO LUNGS NEEDED 02/20/2017 03/07/2017 Inactive bumetanide 1 mg tablet RxNorm: 709857 TAKE ONE TABLET BY MOUTH TWICE DAILY 02/15/2017 05/15/2017 Inactive bumetanide 1 mg tablet RxNorm: 126910 TAKE ONE TABLET BY MOUTH TWICE DAILY 01/15/2017 02/13/2017 Inactive metoprolol succinate ER 100 mg tablet,extended release 24 hr RxNorm: 571045 TAKE ONE TABLET BY MOUTH ONCE DAILY 01/11/2017 06/19/2017 Inactive Zithromax Z-Rashid 250 mg tablet RxNorm: 972754 1 Tablet(s) PO UD 01/09/2017 03/13/2017 Inactive meclizine 25 mg tablet RxNorm: 237985 1 Tablet(s) PO TID as needed 01/09/2017 01/18/2017 Inactive Kenalog 40 mg/mL suspension for injection RxNorm: 8927274 Milliliter(s) Inj 01/09/2017 01/09/2017 Inactive promethazine 25 mg tablet RxNorm: 284338 Tablet(s) TAKE ONE TABLET BY MOUTH EVERY 6 TO 8 HOURS NEEDED 12/29/2016 01/12/2017 Inactive Voltaren 1 % topical gel RxNorm: 940143 APPLY TOPICALLY TO AFFECTED AREA TWICE DAILY 12/25/2016 01/13/2017 Inactive cyclobenzaprine 10 mg tablet RxNorm: 212394 TAKE ONE TABLET BY MOUTH NEEDED 12/22/2016 12/31/2016 Inactive lidocaine 5 % topical patch RxNorm: 7835606 USE ONE PATCH TOPICALLY DAILY. 12 HOURS ON AND THEN 12 HOURS OFF. 12/22/2016 12/31/2016 Inactive hydrocodone 7.5 mg-acetaminophen 325 mg tablet RxNorm: 847109 1 Tablet(s) PO Q4H as needed 12/22/2016 01/20/2017 Inactive bumetanide 1 mg tablet RxNorm: 103914 TAKE ONE TABLET BY MOUTH TWICE DAILY 12/17/2016 01/14/2017 Inactive promethazine 25 mg tablet RxNorm: 197035 Tablet(s) TAKE ONE TABLET BY MOUTH EVERY 6 TO 8 HOURS NEEDED 11/16/2016 12/15/2016 Inactive spironolactone 50 mg tablet RxNorm: 984468 TAKE ONE TABLET BY MOUTH TWICE DAILY 11/15/2016 05/13/2017 Inactive Basaglar KwikPen 100 unit/mL (3 mL) subcutaneous RxNorm: 8113311 Unit(s) INJECT 35 UNITS IN THE MORNING AND 50 UNITS IN THE EVENING SUBCUTANEOUSLY 11/15/2016 03/14/2017 Inactive cyclobenzaprine 10 mg tablet RxNorm: 024719 TAKE ONE TABLET BY MOUTH NEEDED 11/15/2016 12/04/2016 Inactive lidocaine 5 % topical patch RxNorm: 5001532 1 Patch TOP daily . 12 HOURS ON, 12 HOURS OFF 11/15/2016 12/04/2016 Inactive lidocaine 4 % topical patch RxNorm: 4737936 1 Patch TOP on for 12 hours and off for 12 hours 11/14/2016 11/14/2016 Inactive promethazine 25 mg tablet RxNorm: 134001 TAKE ONE TABLET BY MOUTH EVERY 6 TO 8 HOURS NEEDED 11/14/2016 11/15/2016 Inactive Basaglar KwikPen 100 unit/mL (3 mL) subcutaneous RxNorm: 5930784 INJECT 35 UNITS IN THE MORNING AND 50 UNITS IN THE EVENING SUBCUTANEOUSLY 11/14/2016 11/14/2016 Inactive cyclobenzaprine 10 mg tablet RxNorm: 968343 TAKE ONE TABLET BY MOUTH NEEDED 11/14/2016 11/14/2016 Inactive spironolactone 50 mg tablet RxNorm: 837743 TAKE ONE TABLET BY MOUTH TWICE DAILY 11/14/2016 11/14/2016 Inactive Diflucan 150 mg tablet RxNorm: 166389 1 Tablet(s) PO as needed prophylactic after sexual intercourse 10/30/2016 No Stop Date Active hydrocodone 7.5 mg-acetaminophen 325 mg tablet RxNorm: 624332 1 Tablet(s) PO Q4H as needed 10/30/2016 11/28/2016 Inactive clotrimazole 100 mg vaginal tablet RxNorm: 640725 1 Tablet(s) VAG QW 10/30/2016 11/28/2016 Inactive Humalog KwikPen 200 unit/mL (3 mL) subcutaneous RxNorm: 2930241 35 Unit(s) SQ AC 10/30/2016 02/19/2017 Inactive QS 30 day supply Bydureon 2 mg/0.65 mL subcutaneous pen injector RxNorm: 4414211 2 Milligram(s) SQ QW 10/30/2016 11/28/2016 Inactive Basaglar KwikPen 100 unit/mL (3 mL) subcutaneous RxNorm: 6627212 Unit(s) SQ 35 units in the morning and 50 units in the evening 10/30/2016 11/13/2016 Inactive QS 30 day supply cyclobenzaprine 10 mg tablet RxNorm: 915809 TAKE ONE TABLET BY MOUTH NEEDED 10/27/2016 11/05/2016 Inactive Diflucan 150 mg tablet RxNorm: 659558 1 Tablet(s) PO daily x 7 days then once a week 10/27/2016 10/29/2016 Inactive promethazine 25 mg tablet RxNorm: 117589 TAKE ONE TABLET BY MOUTH EVERY 6 TO 8 HOURS NEEDED 10/27/2016 11/10/2016 Inactive Diflucan 150 mg tablet RxNorm: 476498 1 Tablet(s) PO daily x 7 days then once a week 10/09/2016 10/15/2016 Inactive Diflucan 150 mg tablet RxNorm: 508902 1 Tablet(s) PO daily 09/20/2016 09/26/2016 Inactive Cipro 500 mg tablet RxNorm: 643481 1 Tablet(s) PO BID 09/12/2016 09/21/2016 Inactive Flagyl 500 mg tablet RxNorm: 349916 1 Tablet(s) PO TID 09/12/2016 09/21/2016 Inactive Diflucan 150 mg tablet RxNorm: 358763 1 Tablet(s) PO daily 09/06/2016 09/12/2016 Inactive hydrocodone 7.5 mg-acetaminophen 325 mg tablet RxNorm: 960825 1 Tablet(s) PO Q4H as needed 07/12/2016 08/10/2016 Inactive Xopenex 1.25 mg/3 mL solution for nebulization RxNorm: 443915 3 Milliliter(s) INH TID 06/16/2016 05/24/2017 Inactive cefdinir 300 mg capsule RxNorm: 917911 1 Capsule(s) PO BID 06/16/2016 06/25/2016 Inactive Mobic 7.5 mg tablet RxNorm: 226889 1 Tablet(s) PO daily 06/16/2016 06/25/2016 Inactive Levaquin 500 mg tablet RxNorm: 888939 1 Tablet(s) PO daily 06/16/2016 06/22/2016 Inactive cyclobenzaprine 10 mg tablet RxNorm: 747871 1 Tablet(s) PO PRN as needed 06/14/2016 06/23/2016 Inactive promethazine 25 mg tablet RxNorm: 033641 TAKE ONE TABLET BY MOUTH EVERY 6 TO 8 HOURS NEEDED 06/14/2016 06/28/2016 Inactive Xopenex HFA 45 mcg/actuation aerosol inhaler RxNorm: 697364 1 Puff(s) INH PRN 06/14/2016 07/15/2016 Inactive pen needle, diabetic 32 gauge x 5/16" RxNorm: 1 use Miscellaneous AC & HS 06/13/2016 No Stop Date Active QS 30 day supply Humalog KwikPen 200 unit/mL (3 mL) subcutaneous RxNorm: 2543020 10 Unit(s) SQ AC 06/13/2016 10/29/2016 Inactive QS 30 day supply Basaglar KwikPen 100 unit/mL (3 mL) subcutaneous RxNorm: 3387370 22 units in the morning and 35 in the evening. Unit(s) SQ 06/13/2016 10/29/2016 Inactive QS 30 day supply Tivorbex 20 mg capsule RxNorm: 6278843 1 Capsule(s) PO TID as needed 06/13/2016 06/13/2016 Inactive metoprolol succinate ER 100 mg tablet,extended release 24 hr RxNorm: 469405 TAKE ONE TABLET BY MOUTH ONCE DAILY 06/13/2016 10/10/2016 Inactive hydrocodone 7.5 mg-acetaminophen 325 mg tablet RxNorm: 722348 1 Tablet(s) PO Q4H as needed 06/13/2016 07/11/2016 Inactive Voltaren 1 % topical gel RxNorm: 626402 APPLY TOPICALLY TO AFFECTED AREA TWICE DAILY 05/30/2016 07/08/2016 Inactive cyclobenzaprine 10 mg tablet RxNorm: 439370 1 Tablet(s) PO PRN as needed 05/19/2016 05/28/2016 Inactive alprazolam 0.5 mg tablet RxNorm: 161427 1 Tablet(s) PO Q8 as needed 05/19/2016 07/23/2018 Inactive bumetanide 1 mg tablet RxNorm: 758934 TAKE ONE TABLET BY MOUTH TWICE DAILY 05/19/2016 06/17/2016 Inactive Sprintec (28) 0.25 mg-35 mcg tablet RxNorm: 347831 1 Tablet(s) PO UD 05/08/2016 No Stop Date Active Lantus Solostar 100 unit/mL (3 mL) subcutaneous insulin pen RxNorm: 905132 Unit(s) SQ UD 15units qam 30 units qhs 05/08/2016 No Stop Date Active Humalog KwikPen 200 unit/mL (3 mL) subcutaneous RxNorm: 2170756 10 Unit(s) SQ AC 05/08/2016 06/12/2016 Inactive bumetanide 1 mg tablet RxNorm: 936536 TAKE ONE TABLET BY MOUTH TWICE DAILY 04/28/2016 05/18/2016 Inactive Voltaren 1 % topical gel RxNorm: 983884 1 Application TOP BID 04/28/2016 05/07/2016 Inactive cyclobenzaprine 10 mg tablet RxNorm: 234685 1 Tablet(s) PO PRN as needed 04/28/2016 05/07/2016 Inactive hydrocodone 7.5 mg-acetaminophen 325 mg tablet RxNorm: 972505 1 Tablet(s) PO Q4H as needed 04/18/2016 05/16/2016 Inactive Lantus Solostar 100 unit/mL (3 mL) subcutaneous insulin pen RxNorm: 325889 Unit(s) SQ UD 10 units QHS x5 days, if sugars are over 200 increase to 15 units x 5 days, if sugars over 200 increase to 20 units. 04/14/2016 05/07/2016 Inactive lidocaine 4 % topical patch RxNorm: 1538358 1 Patch TOP on for 12 hours and off for 12 hours 04/13/2016 11/13/2016 Inactive Voltaren 1 % topical gel RxNorm: 638100 1 Application TOP BID 04/10/2016 04/27/2016 Inactive metformin ER 500 mg 24 hr tablet,extended release RxNorm: 560502 1 Tablet(s) PO daily 04/06/2016 05/05/2016 Inactive Kenalog 40 mg/mL suspension for injection RxNorm: 9029722 1 Milliliter(s) Inj 04/06/2016 04/06/2016 Inactive cyclobenzaprine 10 mg tablet RxNorm: 944099 1 Tablet(s) PO PRN as needed 04/06/2016 04/27/2016 Inactive WelChol 3.75 gram oral powder packet RxNorm: 541563 1 packet PO daily 04/06/2016 07/04/2016 Inactive alprazolam 0.5 mg tablet RxNorm: 556602 1 Tablet(s) PO Q8 as needed 03/30/2016 06/19/2017 Inactive Levaquin 500 mg tablet RxNorm: 968064 1 Tablet(s) PO daily 03/30/2016 04/05/2016 Inactive metoprolol succinate ER 100 mg tablet,extended release 24 hr RxNorm: 753553 TAKE ONE TABLET BY MOUTH ONCE DAILY 03/16/2016 06/12/2016 Inactive Levaquin 500 mg tablet RxNorm: 984667 1 Tablet(s) PO daily 03/08/2016 03/14/2016 Inactive prednisone 20 mg tablet RxNorm: 049749 2 Tablet(s) PO daily 03/08/2016 03/12/2016 Inactive Xopenex HFA 45 mcg/actuation aerosol inhaler RxNorm: 404661 1 Puff(s) INH PRN 02/28/2016 06/13/2016 Inactive Phenergan with Codeine Syrup RxNorm: 5-10 ML PO QID as needed cough 02/28/2016 03/18/2018 Inactive Kenalog 40 mg/mL suspension for injection RxNorm: 3472869 1 Milliliter(s) Inj 02/28/2016 02/28/2016 Inactive Zithromax Z-Rashid 250 mg tablet RxNorm: 738513 1 Tablet(s) PO UD 02/28/2016 03/27/2016 Inactive alprazolam 0.5 mg tablet RxNorm: 131118 1 Tablet(s) PO Q8 as needed 02/24/2016 06/19/2017 Inactive glipizide 5 mg tablet RxNorm: 665837 1 Tablet(s) PO daily 01/18/2016 05/16/2016 Inactive Actos 15 mg tablet RxNorm: 430027 1 Tablet(s) PO daily 01/18/2016 02/16/2016 Inactive gabapentin 100 mg capsule RxNorm: 385632 1 Capsule(s) PO QHS 01/13/2016 03/12/2016 Inactive gabapentin 100 mg capsule RxNorm: 709943 1 Capsule(s) PO QHS 01/13/2016 01/12/2016 Inactive Bydureon 2 mg/0.65 mL subcutaneous pen injector RxNorm: 4819649 1 Milliliter(s) SQ QW 01/12/2016 01/11/2016 Inactive Bydureon 2 mg/0.65 mL subcutaneous pen injector RxNorm: 7603241 2/0.65ml Milligram(s) SQ QW 01/12/2016 05/16/2016 Inactive Bydureon 2 mg/0.65 mL subcutaneous pen injector RxNorm: 4837125 1 Milliliter(s) SQ QW 01/12/2016 01/11/2016 Inactive bumetanide 1 mg tablet RxNorm: 885288 TAKE ONE TABLET BY MOUTH TWICE DAILY 01/10/2016 04/08/2016 Inactive promethazine 25 mg tablet RxNorm: 145816 Tablet(s) Tablet(s) 1 Tablet(s) PO Q6-8H as needed 12/16/2015 04/13/2016 Inactive promethazine 25 mg tablet RxNorm: 145362 Tablet(s) 1 Tablet(s) PO Q6-8H as needed 12/10/2015 12/15/2015 Inactive Trulicity 0.75 mg/0.5 mL subcutaneous pen injector RxNorm: 8731921 INJECT ONE-HALF ML SUBCUTANEOUSLY ONCE A WEEK 12/10/2015 01/11/2016 Inactive glipizide 5 mg tablet RxNorm: 341314 1 Tablet(s) PO daily 12/10/2015 01/17/2016 Inactive bumetanide 1 mg tablet RxNorm: 754537 TAKE ONE TABLET BY MOUTH TWICE DAILY 12/10/2015 01/08/2016 Inactive promethazine 25 mg tablet RxNorm: 422001 Tablet(s) 1 Tablet(s) PO Q6-8H as needed 11/18/2015 12/09/2015 Inactive promethazine 25 mg tablet RxNorm: 324311 1 Tablet(s) PO Q6-8H as needed 11/16/2015 11/17/2015 Inactive glipizide 5 mg tablet RxNorm: 699404 1/2 Tablet(s) PO daily 11/16/2015 12/15/2015 Inactive promethazine 25 mg tablet RxNorm: 542173 Tablet(s) 1 Tablet(s) PO Q6-8H as needed 11/11/2015 12/10/2015 Inactive Trulicity 0.75 mg/0.5 mL subcutaneous pen injector RxNorm: 3922688 .5 Milliliter(s) SQ QW 11/11/2015 01/11/2016 Inactive metoprolol tartrate 50 mg tablet RxNorm: 169511 1 Tablet(s) PO BID 11/11/2015 07/29/2018 Inactive promethazine 25 mg tablet RxNorm: 972004 1 Tablet(s) PO Q6-8H as needed 10/28/2015 11/10/2015 Inactive nystatin 100,000 unit/gram topical cream RxNorm: 850151 1 Gram(s) TOP BID 10/27/2015 No Stop Date Active alprazolam 0.5 mg tablet RxNorm: 916722 1 Tablet(s) PO Q8 as needed 10/27/2015 03/29/2016 Inactive hydrocodone 7.5 mg-acetaminophen 325 mg tablet RxNorm: 953483 1 Tablet(s) PO Q4H as needed 10/27/2015 11/25/2015 Inactive Trulicity 0.75 mg/0.5 mL subcutaneous pen injector RxNorm: 9362714 .5 Milliliter(s) SQ QW 10/27/2015 11/10/2015 Inactive glipizide 5 mg tablet RxNorm: 868538 1 Tablet(s) PO daily 10/27/2015 11/25/2015 Inactive hydrocodone 7.5 mg-acetaminophen 325 mg tablet RxNorm: 868712 1 Tablet(s) PO Q4H as needed 10/26/2015 10/26/2015 Inactive alprazolam 0.5 mg tablet RxNorm: 885132 1 Tablet(s) PO PRN as needed 10/26/2015 10/26/2015 Inactive promethazine 25 mg tablet RxNorm: 181086 1 Tablet(s) PO Q6-8H as needed 10/26/2015 11/15/2015 Inactive glipizide 5 mg tablet RxNorm: 684073 1/2 Tablet(s) PO daily 10/13/2015 10/26/2015 Inactive cefdinir 300 mg capsule RxNorm: 690563 1 Capsule(s) PO BID 10/05/2015 10/14/2015 Inactive prednisone 20 mg tablet RxNorm: 832228 2 Tablet(s) PO daily 10/05/2015 10/09/2015 Inactive Diflucan 150 mg tablet RxNorm: 185860 1 Tablet(s) PO daily 10/05/2015 10/11/2015 Inactive Invokamet 50 mg-500 mg tablet RxNorm: 6868115 1 Tablet(s) PO daily 10/05/2015 11/03/2015 Inactive alprazolam 0.5 mg tablet RxNorm: 918865 1 Tablet(s) PO PRN as needed 10/01/2015 02/23/2016 Inactive promethazine 25 mg tablet RxNorm: 250485 1 Tablet(s) PO Q6-8H as needed 09/30/2015 10/25/2015 Inactive bumetanide 1 mg tablet RxNorm: 715514 TAKE ONE TABLET BY MOUTH TWICE DAILY 09/30/2015 10/29/2015 Inactive bumetanide 1 mg tablet RxNorm: 619120 TAKE ONE TABLET BY MOUTH TWICE DAILY 09/20/2015 12/18/2015 Inactive bumetanide 1 mg tablet RxNorm: 551676 1 Tablet(s) PO BID 09/20/2015 10/19/2015 Inactive metoprolol succinate ER 100 mg tablet,extended release 24 hr RxNorm: 634126 1 Tablet(s) PO daily 09/16/2015 03/13/2016 Inactive spironolactone 50 mg tablet RxNorm: 385734 1 Tablet(s) PO BID 09/16/2015 03/13/2016 Inactive alprazolam 0.5 mg tablet RxNorm: 956556 1 Tablet(s) PO PRN as needed 09/16/2015 10/25/2015 Inactive hydrocodone 7.5 mg-acetaminophen 325 mg tablet RxNorm: 045922 1 Tablet(s) PO Q4H as needed 09/16/2015 10/25/2015 Inactive Invokamet 50 mg-1,000 mg tablet RxNorm: 2097547 1 Tablet(s) PO daily 09/06/2015 09/05/2015 Inactive Invokamet 50 mg-1,000 mg tablet RxNorm: 2148928 1 Tablet(s) PO daily 09/06/2015 12/04/2015 Inactive promethazine 25 mg tablet RxNorm: 063202 TAKE ONE TABLET BY MOUTH EVERY 6 TO 8 HOURS NEEDED 09/01/2015 09/16/2015 Inactive promethazine 25 mg tablet RxNorm: 045543 1 Tablet(s) PO Q6-8H as needed 08/27/2015 09/25/2015 Inactive metoprolol succinate ER 100 mg tablet,extended release 24 hr RxNorm: 615780 1 Tablet(s) PO daily 08/20/2015 09/15/2015 Inactive bumetanide 1 mg tablet RxNorm: 550948 1 Tablet(s) PO BID 08/20/2015 09/18/2015 Inactive Bumex 1 mg tablet RxNorm: 149045 1 Tablet(s) PO BID 08/20/2015 11/15/2015 Inactive Kenalog 40 mg/mL suspension for injection RxNorm: 2571878 Milliliter(s) Inj 08/20/2015 08/20/2015 Inactive bumetanide 1 mg tablet RxNorm: 731516 1 Tablet(s) PO BID 08/20/2015 08/19/2015 Inactive Levaquin 500 mg tablet RxNorm: 806771 1 Tablet(s) PO daily 08/20/2015 08/26/2015 Inactive promethazine 25 mg tablet RxNorm: 144303 1 Tablet(s) PO Q6-8H as needed 08/06/2015 08/26/2015 Inactive metformin 500 mg tablet RxNorm: 702817 Tablet(s) PO 500mg in the morning and 1000mg at night No Start Date 09/16/2015 Inactive alprazolam 0.25 mg tablet RxNorm: 660012 1 Tablet(s) PO daily as needed anxiety No Start Date 08/07/2018 Inactive Lantus Solostar 100 unit/mL (3 mL) subcutaneous insulin pen RxNorm: 310452 Unit(s) SQ UD 10 units QHS x 5 days, if blood sugars are above 200 increase to 15 units x 5 days, if still 200 increase to 20 units. No Start Date 04/13/2016 Inactive alprazolam 0.5 mg tablet RxNorm: 144122 1 Tablet(s) PO PRN as needed No Start Date 09/15/2015 Inactive cyclobenzaprine 10 mg tablet RxNorm: 020072 1 Tablet(s) PO PRN as needed No Start Date 04/05/2016 Inactive lidocaine 4 % topical patch RxNorm: 9140161 1 Patch TOP on for 12 hours and off for 12 hours No Start Date 04/12/2016 Inactive metoprolol tartrate 50 mg tablet RxNorm: 047952 1 Tablet(s) PO BID No Start Date 11/10/2015 Inactive spironolactone 50 mg tablet RxNorm: 558453 1 Tablet(s) PO BID No Start Date 09/15/2015 Inactive hydrocodone 7.5 mg-acetaminophen 325 mg tablet RxNorm: 246563 1 Tablet(s) PO Q4H as needed No Start Date 09/15/2015 Inactive promethazine 25 mg tablet RxNorm: 102569 1 Tablet(s) PO PRN as needed No Start Date 08/05/2015 Inactive Medication Administered Medication Codes Instructions Start Date Status ceftriaxone 500 mg solution for injection RxNorm: 5539270 06/05/2018 No longer Active Kenalog 40 mg/mL suspension for injection RxNorm: 5419066 15.Milliliter 02/19/2018 No longer Active Kenalog 40 mg/mL suspension for injection RxNorm: 9904259 Milliliter 09/05/2017 No longer Active Kenalog 40 mg/mL suspension for injection RxNorm: 7465005 1Milliliter 04/24/2017 No longer Active Kenalog 40 mg/mL suspension for injection RxNorm: 6552592 Milliliter 01/09/2017 No longer Active Kenalog 40 mg/mL suspension for injection RxNorm: 0954010 1Milliliter 04/06/2016 No longer Active Kenalog 40 mg/mL suspension for injection RxNorm: 3920860 1Milliliter 02/28/2016 No longer Active Kenalog 40 mg/mL suspension for injection RxNorm: 4912900 Milliliter 08/20/2015 No longer Active Immunizations Vaccine Codes Date Status Influenza CVX: 141 03/14/2018 completed Influenza CVX: 141 04/24/2017 completed Pneumococcal (Adult) CVX: 33 04/13/2016 completed Influenza CVX: 141 03/30/2016 completed Assessments Condition Codes Effective Dates Essential (primary) hypertension ICD-10: I10 ICD-9: 401.1 [...] Visit Reason For Visit Effective Dates Notes hypertension 08/06/2018 wound follow up 07/22/2018 Post-op [...] Code Item Item Code Result Date %Hba1C Qgu547 % HbA1c 42776- 6 8.4 % 06/06/2018 %Hba1C Taq933 Gluc Ave 194 mg/dL 06/06/2018 Lipid Ord30 CHOL 233 mg/dL 03/14/2018 Lipid Ord30 HDL 38.0 mg/dl 03/14/2018 Lipid Ord30 TRIG 143 mg/dL 03/14/2018 Lipid Ord30 LDL 166 mg/dL 03/14/2018 Lipid Ord30 C/HDL 6.1 Ratio 03/14/2018 %Hba1C Efd782 % HbA1c 14413- 6 9.8 % 03/14/2018 %Hba1C Vbv339 Gluc Ave 235 mg/dL 03/14/2018 Tsh Ord6 TSH (3rd IS) 1.09 uIU/mL 03/14/2018 Comp Metabolic Gjm810 NA 137 mEq/L 03/14/2018 Comp Metabolic Hyy331 K 4.6 mEq/L 03/14/2018 Comp Metabolic Qmp089 CL 100 mEq/L 03/14/2018 Comp Metabolic Jcf824 CO2 27.0 mEq/L 03/14/2018 Comp Metabolic Dlb913 ANION GAP 15 03/14/2018 Comp Metabolic Ifr872 GLUCOSE 144 mg/dL 03/14/2018 Comp Metabolic Gkg251 Creat 0.5 mg/dL 03/14/2018 Comp Metabolic Ljg106 eGFR 138 ml/min/1.73m2 03/14/2018 Comp Metabolic Dve319 BUN 9 mg/dL 03/14/2018 Comp Metabolic Qwd613 B/C Ratio 17.6 Ratio 03/14/2018 Comp Metabolic Jnj477 CALCIUM 10.0 mg/dL 03/14/2018 Comp Metabolic Aol623 ALK PHOS 102 U/L 03/14/2018 Comp Metabolic Mmp915 AST(SGOT) 31 U/L 03/14/2018 Comp Metabolic Cuh425 ALT(SGPT) 41 U/L 03/14/2018 Comp Metabolic Owy161 BILI T 0.5 mg/dL 03/14/2018 Comp Metabolic Wif782 ALBUMIN 4.3 g/dL 03/14/2018 Comp Metabolic Nof358 TPRO 6.8 g/dL 03/14/2018 Comp Metabolic Mas120 GLOB 2.5 g/dL 03/14/2018 Comp Metabolic Ddt841 A/G Ratio 1.8 Ratio 03/14/2018 Comp Metabolic Ljy231 Osmo 275 mOsmo 03/14/2018 Cbc With Differential [...] 29.8 pg 03/14/2018 Cbc With Differential Ord2 Bracken% 5.6 % 03/14/2018 Cbc With Differential Ord2 [...] 4.31 K/ul 03/14/2018 Cbc With Differential Ord2 Bracken ABS# 0.9 K/ul 03/14/2018 Cbc With Differential Ord2 Eos ABS# 0.2 K/ul 03/14/2018 Cbc With Differential Ord2 Baso ABS# 0.1 K/ul 03/14/2018 %Hba1C Gia091 % HbA1c 56517- 6 8.8 % 06/13/2017 %Hba1C Idn822 Gluc Ave 206 mg/dL 06/13/2017 Tsh Ord6 [...] 30.2 pg 06/13/2017 Cbc With Differential Ord2 Bracken% 4.9 % 06/13/2017 Cbc With Differential Ord2 [...] 3.21 K/ul 06/13/2017 Cbc With Differential Ord2 [place] ABS# 0.7 K/ul 06/13/2017 Cbc With Differential Ord2 Eos ABS# 0.2 K/ul 06/13/2017 Cbc With Differential Ord2 Baso ABS# 0.1 K/ul 06/13/2017 Lipid Ord30 CHOL 219 mg/dL 06/13/2017 Lipid Ord30 HDL 40.0 mg/dl 06/13/2017 Lipid Ord30 TRIG 200 mg/dL 06/13/2017 Lipid Ord30 LDL 139 mg/dL 06/13/2017 Lipid Ord30 C/HDL 5.5 Ratio 06/13/2017 Comp Metabolic Zbn896 NA 139 mEq/L 06/13/2017 Comp Metabolic Ttc340 K 4.4 mEq/L 06/13/2017 Comp Metabolic Fax351 CL 100 mEq/L 06/13/2017 Comp Metabolic Yil587 CO2 29.0 mEq/L 06/13/2017 Comp Metabolic Cqj166 ANION GAP 14 06/13/2017 Comp Metabolic Ily664 GLUCOSE 257 mg/dL 06/13/2017 Comp Metabolic Hsd445 Creat 0.5 mg/dL 06/13/2017 Comp Metabolic Nwx172 eGFR 145 ml/min/1.73m2 06/13/2017 Comp Metabolic Syk662 BUN 13 mg/dL 06/13/2017 Comp Metabolic Oud297 B/C Ratio 26.5 Ratio 06/13/2017 Comp Metabolic Kad414 CALCIUM 9.7 mg/dL 06/13/2017 Comp Metabolic Pvb616 ALK PHOS 98 U/L 06/13/2017 Comp Metabolic Ddy120 AST(SGOT) 30 U/L 06/13/2017 Comp Metabolic Xcj622 ALT(SGPT) 43 U/L 06/13/2017 Comp Metabolic Kls694 BILI T 0.5 mg/dL 06/13/2017 Comp Metabolic Ekb281 ALBUMIN 4.0 g/dL 06/13/2017 Comp Metabolic Eka638 TPRO 6.4 g/dL 06/13/2017 Comp Metabolic Jhc187 GLOB 2.4 g/dL 06/13/2017 Comp Metabolic Bkg556 A/G Ratio 1.7 Ratio 06/13/2017 Comp Metabolic Nmp463 Osmo 286 mOsmo 06/13/2017 %Hba1C Sna654 % HbA1c 05540- 6 11.1 % 2016 %Hba1C Cno272 Gluc Ave 272 mg/dL 2016 C-Reactive Protein Qnt Crqnt CRP 4.7 mg/dl 2016 Comp Metabolic Dgt447 NA 136 mEq/L 2016 Comp Metabolic Zkt142 K 4.1 mEq/L 2016 Comp Metabolic Ynf808 CL 96 mEq/L 2016 Comp Metabolic Kpt445 CO2 29.0 mEq/L 2016 Comp Metabolic Nkm146 ANION GAP 15 2016 Comp Metabolic Tcs829 GLUCOSE 291 mg/dL 2016 Comp Metabolic Erb552 Creat 0.4 mg/dL 2016 Comp Metabolic Qii527 eGFR 165 ml/min/1.73m2 2016 Comp Metabolic Ggs911 BUN 11 mg/dL 2016 Comp Metabolic Btu702 B/C Ratio 25.0 Ratio 2016 Comp Metabolic Flg530 CALCIUM 9.4 mg/dL 2016 Comp Metabolic Xpb168 ALK PHOS 111 U/L 2016 Comp Metabolic Wrl340 AST(SGOT) 46 U/L 2016 Comp Metabolic Lyk879 ALT(SGPT) 60 U/L 2016 Comp Metabolic Vls601 BILI T 0.4 mg/dL 2016 Comp Metabolic Ycr258 ALBUMIN 4.0 g/dL 2016 Comp Metabolic Fkz233 TPRO 6.5 g/dL 2016 Comp Metabolic Knh288 GLOB 2.6 g/dL 2016 Comp Metabolic Hoj102 A/G Ratio 1.5 Ratio 2016 Comp Metabolic Ujd833 Osmo 282 mOsmo 2016 Cbc With Differential [...] 30.5 pg 2016 Cbc With Differential Ord2 Bracken% 4.7 % 2016 Cbc With Differential Ord2 [...] 3.53 K/ul 2016 Cbc With Differential Ord2 Bracken ABS# 0.7 K/ul 2016 Cbc With Differential Ord2 Eos ABS# 0.2 K/ul 2016 Cbc With Differential Ord2 Baso ABS# 0.1 K/ul 2016 Lipid Ord30 CHOL 228 mg/dL 05/05/2016 Lipid Ord30 HDL 42.0 mg/dl 05/05/2016 Lipid Ord30 TRIG 168 mg/dL 05/05/2016 Lipid Ord30 LDL 152 mg/dL 05/05/2016 Lipid Ord30 C/HDL 5.4 Ratio 05/05/2016 Comp Metabolic Txp118 NA 135 mEq/L 05/05/2016 Comp Metabolic Yot049 K 4.1 mEq/L 05/05/2016 Comp Metabolic Vlp979 CL 99 mEq/L 05/05/2016 Comp Metabolic Ftl777 CO2 29.0 mEq/L 05/05/2016 Comp Metabolic Rxz942 ANION GAP 11 05/05/2016 Comp Metabolic Gkr676 GLUCOSE 229 mg/dL 05/05/2016 Comp Metabolic Lxf761 Creat 0.5 mg/dL 05/05/2016 Comp Metabolic Yxi217 eGFR 150 ml/min/1.73m2 05/05/2016 Comp Metabolic Qvv118 BUN 14 mg/dL 05/05/2016 Comp Metabolic Fcf319 B/C Ratio 29.2 Ratio 05/05/2016 Comp Metabolic Gct143 CALCIUM 9.1 mg/dL 05/05/2016 Comp Metabolic Ngs334 ALK PHOS 112 U/L 05/05/2016 Comp Metabolic Apc252 AST(SGOT) 59 U/L 05/05/2016 Comp Metabolic Jna486 ALT(SGPT) 63 U/L 05/05/2016 Comp Metabolic Pum951 BILI T 0.7 mg/dL 05/05/2016 Comp Metabolic Dug514 ALBUMIN 3.8 g/dL 05/05/2016 Comp Metabolic Wjk900 TPRO 6.5 g/dL 05/05/2016 Comp Metabolic Xqh636 GLOB 2.7 g/dL 05/05/2016 Comp Metabolic Aog712 A/G Ratio 1.4 Ratio 05/05/2016 Comp Metabolic Nqk622 Osmo 278 mOsmo 05/05/2016 Cbc With Differential [...] 30.2 pg 05/05/2016 Cbc With Differential Ord2 Bracken% 4.4 % 05/05/2016 Cbc With Differential Ord2 [...] 3.59 K/ul 05/05/2016 Cbc With Differential Ord2 Bracken ABS# 0.7 K/ul 05/05/2016 Cbc With Differential Ord2 Eos ABS# 0.1 K/ul 05/05/2016 Cbc With Differential Ord2 Baso ABS# 0.1 K/ul 05/05/2016 %Hba1C Xbz452 % HbA1c 66834- 6 10.4 % 05/05/2016 %Hba1C Ejb944 Gluc Ave 252 mg/dL 05/05/2016 Hcg Beta Subunit Qual Serum 402580 B-HCG QUALITATIVE NEGATIVE 12/27/2015 GC/CHL PRB 7688676 Chl trach DNA Negative 12/25/2015 GC/CHL PRB 2070836 GC PROBE Negative 12/25/2015 Comp. Metabolic Panel (14) 27075 GLUCOSE 136 mg/dL 12/17/2015 Comp. Metabolic Panel (14) 68482 BUN 9 mg/dL 12/17/2015 Comp. Metabolic Panel (14) 54729 CREATININE 0.67 mg/dL 12/17/2015 Comp. Metabolic Panel (14) 97387 SODIUM 136 mmol/L 12/17/2015 Comp. Metabolic Panel (14) 21552 POTASSIUM 4.4 mmol/L 12/17/2015 Comp. Metabolic Panel (14) 99745 CHLORIDE 95 mmol/L 12/17/2015 Comp. Metabolic Panel (14) 78625 CARBON DIOXIDE 28 mmol/L 12/17/2015 Comp. Metabolic Panel (14) 86433 CALCIUM 10.1 mg/dL 12/17/2015 Comp. Metabolic Panel (14) 30576 TOTAL PROTEIN 7.0 g/dL 12/17/2015 Comp. Metabolic Panel (14) 18764 ALBUMIN 4.5 g/dL 12/17/2015 Comp. Metabolic Panel (14) 87045 ALKALINE PHOSPHATASE 87 U/L 12/17/2015 Comp. Metabolic Panel (14) 47426 TOTAL BILIRUBIN 0.5 mg/dL 12/17/2015 Comp. Metabolic Panel (14) 17360 SGOT (AST) 38 U/L 12/17/2015 Comp. Metabolic Panel (14) 04879 SGPT (ALT) 41 U/L 12/17/2015 Comp. Metabolic Panel (14) 88690 eGFR (mL/min/1.73m2) >60 12/17/2015 Comp. Metabolic Panel (14) 13189 12/17/2015 Cbc With Differential/Platelet 49625 WBC 16.67 thou/uL 12/17/2015 Cbc With Differential/Platelet 44936 RBC 5.11 mil/uL 12/17/2015 Cbc With Differential/Platelet 58452 HEMOGLOBIN 14.8 g/dL 12/17/2015 Cbc With Differential/Platelet 41770 HEMATOCRIT 48.7 % 12/17/2015 Cbc With Differential/Platelet 03712 MCV 95.4 fL 12/17/2015 Cbc With Differential/Platelet 07214 MCH 29.0 pg 12/17/2015 Cbc With Differential/Platelet 32016 MCHC 30.4 g/dL 12/17/2015 Cbc With Differential/Platelet 39695 RDW-CV 14.6 % 12/17/2015 Cbc With Differential/Platelet 78983 PLATELET COUNT 471 thou/uL 12/17/2015 Cbc With Differential/Platelet 64831 NEUTROPHIL % 71.3 % 12/17/2015 Cbc With Differential/Platelet 82091 LYMPHOCYTE % 22.4 % 12/17/2015 Cbc With Differential/Platelet 98115 MONOCYTE % 4.8 % 12/17/2015 Cbc With Differential/Platelet 66621 EOS % 0.7 % 12/17/2015 Cbc With Differential/Platelet 51741 BASO % 0.7 % 12/17/2015 Cbc With Differential/Platelet 37649 NEUTROPHIL ABS # 11.89 thou/uL 12/17/2015 Cbc With Differential/Platelet 63407 LYMPH ABS # 3.73 thou/uL 12/17/2015 Cbc With Differential/Platelet 07994 MONOCYTE ABS # 0.80 thou/uL 12/17/2015 Cbc With Differential/Platelet 23860 EOS ABS # 0.12 thou/uL 12/17/2015 Cbc With Differential/Platelet 38313 BASO ABS # 0.12 thou/uL 12/17/2015 Comp. [...] Hgb A1C With Eag Estimation GLYCOHEMOGLOBIN A1C 27884-7 8.1 % 11/13/2015 Hgb A1C With Eag Estimation ESTIMATED AVG GLUCOSE 186 mg/dL 11/13/2015 Comp. Metabolic Panel (14) 65345 GLUCOSE 84 mg/dL 09/11/2015 Comp. Metabolic Panel (14) 34623 BUN 11 mg/dL 09/11/2015 Comp. Metabolic Panel (14) 83568 CREATININE 0.56 mg/dL 09/11/2015 Comp. Metabolic Panel (14) 61180 SODIUM 142 mmol/L 09/11/2015 Comp. Metabolic Panel (14) 91385 POTASSIUM 4.3 mmol/L 09/11/2015 Comp. Metabolic Panel (14) 96586 CHLORIDE 98 mmol/L 09/11/2015 Comp. Metabolic Panel (14) 33153 CARBON DIOXIDE 27 mmol/L 09/11/2015 Comp. Metabolic Panel (14) 45756 CALCIUM 10.1 mg/dL 09/11/2015 Comp. Metabolic Panel (14) 00844 TOTAL PROTEIN 7.2 g/dL 09/11/2015 Comp. Metabolic Panel (14) 08819 ALBUMIN 4.7 g/dL 09/11/2015 Comp. Metabolic Panel (14) 42344 ALKALINE PHOSPHATASE 109 U/L 09/11/2015 Comp. Metabolic Panel (14) 94264 TOTAL BILIRUBIN 0.3 mg/dL 09/11/2015 Comp. Metabolic Panel (14) 27022 SGOT (AST) 53 U/L 09/11/2015 Comp. Metabolic Panel (14) 98047 SGPT (ALT) 53 U/L 09/11/2015 Comp. Metabolic Panel (14) 20660 eGFR (mL/min/1.73m2) >60 09/11/2015 Comp. Metabolic Panel (14) 89590 09/11/2015 Comp. Metabolic Panel (14) 56601 GLUCOSE 183 mg/dL 08/11/2015 Comp. Metabolic Panel (14) 00620 BUN 10 mg/dL 08/11/2015 Comp. Metabolic Panel (14) 01017 CREATININE 0.46 mg/dL 08/11/2015 Comp. Metabolic Panel (14) 26368 SODIUM 138 mmol/L 08/11/2015 Comp. Metabolic Panel (14) 85573 POTASSIUM 4.0 mmol/L 08/11/2015 Comp. Metabolic Panel (14) 63056 CHLORIDE 98 mmol/L 08/11/2015 Comp. Metabolic Panel (14) 48260 CARBON DIOXIDE 29 mmol/L 08/11/2015 Comp. Metabolic Panel (14) 13154 CALCIUM 9.4 mg/dL 08/11/2015 Comp. Metabolic Panel (14) 49598 TOTAL PROTEIN 6.8 g/dL 08/11/2015 Comp. Metabolic Panel (14) 28423 ALBUMIN 4.4 g/dL 08/11/2015 Comp. Metabolic Panel (14) 95501 ALKALINE PHOSPHATASE 118 U/L 08/11/2015 Comp. Metabolic Panel (14) 81520 TOTAL BILIRUBIN <0.3 mg/dL 08/11/2015 Comp. Metabolic Panel (14) 17152 SGOT (AST) 41 U/L 08/11/2015 Comp. Metabolic Panel (14) 58564 SGPT (ALT) 55 U/L 08/11/2015 Comp. Metabolic Panel (14) 80942 eGFR (mL/min/1.73m2) >60 08/11/2015 Comp. Metabolic Panel (14) 91064 08/11/2015 Cbc With Differential/Platelet 11469 WBC 11.76 thou/uL 08/11/2015 Cbc With Differential/Platelet 08302 RBC 4.98 mil/uL 08/11/2015 Cbc With Differential/Platelet 30484 HEMOGLOBIN 14.2 g/dL 08/11/2015 Cbc With Differential/Platelet 47922 HEMATOCRIT 46.7 % 08/11/2015 Cbc With Differential/Platelet 90467 MCV 93.8 fL 08/11/2015 Cbc With Differential/Platelet 95438 MCH 28.5 pg 08/11/2015 Cbc With Differential/Platelet 13056 MCHC 30.4 g/dL 08/11/2015 Cbc With Differential/Platelet 70977 RDW-CV 14.3 % 08/11/2015 Cbc With Differential/Platelet 83094 PLATELET COUNT 382 thou/uL 08/11/2015 Cbc With Differential/Platelet 59727 NEUTROPHIL % 67.3 % 08/11/2015 Cbc With Differential/Platelet 24858 LYMPHOCYTE % 24.0 % 08/11/2015 Cbc With Differential/Platelet 10156 MONOCYTE % 6.0 % 08/11/2015 Cbc With Differential/Platelet 92632 EOS % 1.6 % 08/11/2015 Cbc With Differential/Platelet 54098 BASO % 1.0 % 08/11/2015 Cbc With Differential/Platelet 47763 NEUTROPHIL ABS # 7.91 thou/uL 08/11/2015 Cbc With Differential/Platelet 83826 LYMPH ABS # 2.82 thou/uL 08/11/2015 Cbc With Differential/Platelet 24133 MONOCYTE ABS # 0.71 thou/uL 08/11/2015 Cbc With Differential/Platelet 98307 EOS ABS # 0.19 thou/uL 08/11/2015 Cbc With Differential/Platelet 25377 BASO ABS # 0.12 thou/uL 08/11/2015 Tsh 061846 TSH 3.220 uIU/mL 08/11/2015 Lipid Panel 61409 CHOLESTEROL 193 mg/dL 08/11/2015 Lipid Panel 16832 TRIGLYCERIDES 192 mg/dL 08/11/2015 Lipid Panel 04065 HDL 38 mg/dL 08/11/2015 Lipid Panel 30448 CHOLESTEROL/HDL 5.08 08/11/2015 Lipid Panel 93197 LDL (CALCULATED) 117 mg/dL 08/11/2015 Lipid Panel 66395 LDL/HDL 3.08 08/11/2015 Lipid Panel 24839 PHENOTYPE TYPE IV BORDERLINE 08/11/2015 Review of Systems System Result Effective Dates Constitutional No recent illness 08/06/2018 Constitutional No [...] 1994 Constitutional general appearance Overall: well developed 08/06/2018 [...] papule 01/08/2018 None Full Exam - General 1995 Integument inspection of skin Pigmentation: erythematous 01/08/2018 [...] Procedure Codes Date THER/PROPH/DIAG INJ SC/IM CPT-4: 16641 06/05/2018 ROCEPHIN, PER 250 MG CPT- 4: J0696 06/05/2018 REMOVAL OF SKIN TAGS <W/15 CPT-4: 68505 03/14/2018 FLU VAC NO PRSV 4 PRECIOUS 3 YRS+ CPT-4: 19946 03/14/2018 IMMUNIZATION ADMIN CPT- 4: 78678 03/14/2018 TRIAMCINOLONE ACET INJ NOS CPT-4: J3301 02/19/2018 THER/PROPH/DIAG INJ SC/IM CPT-4: 26998 02/19/2018 THER/PROPH/DIAG INJ SC/IM CPT-4: 15962 09/05/2017 TRIAMCINOLONE ACET INJ NOS CPT-4: J3301 09/05/2017 IMMUNIZATION ADMIN CPT- 4: 50840 04/24/2017 FLU VAC NO PRSV 4 PRECIOUS 3 YRS+ CPT-4: 06307 04/24/2017 DRAIN/INJECT JOINT/BURSA CPT-4: 50854 04/24/2017 TRIAMCINOLONE ACET INJ NOS CPT-4: J3301 04/24/2017 THER/PROPH/DIAG INJ SC/IM CPT-4: 95747 01/09/2017 TRIAMCINOLONE ACET INJ NOS CPT-4: J3301 01/09/2017 THER/PROPH/DIAG INJ SC/IM CPT-4: 35143 04/13/2016 Pneumococcal Polysaccharide Vaccine, 23-Valent, Ad CPT-4: 05142 04/13/2016 INJECT TRIGGER POINTS 3/> CPT-4: 48124 04/06/2016 TRIAMCINOLONE ACET INJ NOS CPT-4: J3301 04/06/2016 IMMUNIZATION ADMIN CPT- 4: 63194 03/30/2016 IIV4 FLU VACC NO PRESERV ID SNOMED CT: 12576204 CPT-4: 50639 03/30/2016 TRIAMCINOLONE ACET INJ NOS CPT-4: J3301 02/28/2016 THER/PROPH/DIAG INJ SC/IM CPT-4: 44094 02/28/2016 TRIAMCINOLONE ACET INJ NOS CPT-4: J3301 08/20/2015 Vital Signs Date Vital 08/06/2018 Blood Pressure 1: 130/80 Code: 8480-6 BMI: 42.8 Code: 31806-1 Heart Rate 1: 110 bpm Height: 4'11" [...] 1: 12774 Code: 8480-6 BMI: 42.4 Code: 39679-2 Heart Rate 1: 78 bpm Height: 4'11" SpO2: 97% Weight: 210 lbs 03/26/2018 Blood Pressure 1: 128 Code: 8480-6 BMI: 43.0 Code: 61643-2 Heart Rate 1: 120 bpm Height: 4'11" SpO2: 97% Weight: 213 lbs 03/14/2018 Blood Pressure 1: 12074 Code: 8480-6 BMI: 43.0 Code: 61950-7 Heart Rate 1: 114 bpm Height: 4'11" SpO2: 95% Weight: 213 lbs 03/07/2018 Blood Pressure 1: 13274 Code: 8480-6 BMI: 43.8 Code: 07553-7 Heart Rate 1: 123 bpm Height: 4'11" [...] 1: 134/86 Code: 8480-6 BMI: 45.4 Code: 71215-7 Heart Rate 1: 108 bpm Height: 4'11" SpO2: 95% Weight: 225 lbs 06/07/2017 Blood Pressure 1: 132/74 Code: 8480-6 Heart Rate 1: 99 bpm Height: 4'11" SpO2: 95% 04/24/2017 Blood Pressure 1: 132/8096 Code: 8480-6 BMI: 47.7 Code: 55668-2 Heart Rate 1: 96 bpm Height: 4'11" Weight: 236 lbs 01/09/2017 Blood Pressure 1: 122/74 Code: 8480-6 BMI: 46.0 Code: 98878-8 Heart Rate 1: 114 bpm Height: 4'11" SpO2: 98% Temperature: 37.1 (C) / 98.7 (F) Weight: 228 lbs 10/30/2016 Blood Pressure 1: 12478 Code: 8480-6 BMI: 49.1 Code: 75190-5 Heart Rate 1: 90 bpm Height: 4'11" SpO2: 97% Weight: 243 lbs 10/09/2016 Blood Pressure 1: 124/80 Code: 8480-6 BMI: 49.3 Code: 71008-8 Heart Rate 1: 91 bpm Height: 4'11" SpO2: 98% Weight: 244 lbs 09/12/2016 Blood Pressure 1: 128/80 Code: 8480-6 BMI: 49.1 Code: 60475-9 Heart Rate 1: 94 bpm Height: 4'11" SpO2: 95% Weight: 243 lbs 09/05/2016 Blood Pressure 1: 118/74 Code: 8480-6 BMI: 49.1 Code: 45882-5 Heart Rate 1: 100 bpm Height: 4'11" SpO2: 97% Weight: 243 lbs 06/16/2016 Blood Pressure 1: 120/62 Code: 8480-6 BMI: 49.1 Code: 63484-0 Heart Rate 1: 100 bpm Height: 4'11" SpO2: 96% Temperature: 36.7 (C) / 98.0 (F) Weight: 243 lbs 06/13/2016 Blood Pressure 1: 120/70 Code: 8480-6 Heart Rate 1: 117 bpm SpO2: 97% 05/19/2016 Blood Pressure 1: 130/64 Code: 8480-6 BMI: 49.1 Code: 89941-4 Heart Rate 1: 101 bpm Height: 4'11" SpO2: 96% Weight: 243 lbs 05/08/2016 Blood Pressure 1: 128/76 Code: 8480-6 Heart Rate 1: 119 bpm Height: SpO2: 97% Weight: 05/05/2016 Blood Pressure 1: 124/76 Code: 8480-6 BMI: 49.1 Code: 85252-8 Heart Rate 1: 75 bpm Height: 4'11" SpO2: 99% Weight: 243 lbs 04/10/2016 Blood Pressure 1: 140/80 Code: 8480-6 BMI: 49.7 Code: 90564-5 Heart Rate 1: 88 bpm Height: 4'11" SpO2: 95% Weight: 246 lbs 04/06/2016 Blood Pressure 1: 134/82 Code: 8480-6 BMI: 75.1 Code: 15125-4 Heart Rate 1: 72 bpm Height: 4' SpO2: 96% Weight: 246 lbs 03/08/2016 Blood Pressure 1: 126/72 Code: 8480-6 BMI: 49.7 Code: 35048-0 Heart Rate 1: 89 bpm Height: 4'11" SpO2: 97% Weight: 246 lbs 02/28/2016 Blood Pressure 1: 124/68 Code: 8480-6 BMI: 49.7 Code: 06303-4 Heart Rate 1: 89 bpm Height: 4'11" SpO2: 96% Weight: 246 lbs 01/18/2016 Blood Pressure 1: 142/78 Code: 8480-6 BMI: 48.9 Code: 36271-6 Heart Rate 1: 97 bpm Height: 4'11" SpO2: 97% Weight: 242 lbs 12/23/2015 Blood Pressure 1: 124/74 Code: 8480-6 BMI: 48.9 Code: 85485-3 Heart Rate 1: 106 bpm Height: 4'11" SpO2: 96% Weight: 242 lbs 12/16/2015 Blood Pressure 1: 116/82 Code: 8480-6 BMI: 48.3 Code: 44545-1 Heart Rate 1: 111 bpm Height: 4'11" SpO2: 97% Weight: 239 lbs 11/11/2015 Blood Pressure 1: 130/80 Code: 8480-6 BMI: 49.7 Code: 70667-0 Heart Rate 1: 105 bpm Height: 4'11" SpO2: 96% Weight: 246 lbs 10/27/2015 Blood Pressure 1: 122/70 Code: 8480-6 BMI: 49.5 Code: 01739-0 Heart Rate 1: 107 bpm Height: 4'11" SpO2: 96% Weight: 245 lbs 10/13/2015 Blood Pressure 1: 140/82 Code: 8480-6 BMI: 50.9 Code: 73484-5 Heart Rate 1: 111 bpm Height: 4'11" SpO2: 96% Weight: 252 lbs 10/05/2015 Blood Pressure 1: 118/70 Code: 8480-6 BMI: 51.1 Code: 65333-4 Heart Rate 1: 120 bpm Height: 4'11" SpO2: 97% Weight: 253 lbs 09/01/2015 Blood Pressure 1: 132/82 Code: 8480-6 BMI: 50.1 Code: 56613-6 Heart Rate 1: 110 bpm Height: 4'11" SpO2: 96% Weight: 248 lbs 08/20/2015 Blood Pressure 1: 132/78 Code: 8480-6 BMI: 51.7 Code: 16168-4 Heart Rate 1: 100 bpm Height: 4'11" Weight: 256 lbs 08/03/2015 Blood Pressure 1: 148/92 Code: 8480-6 BMI: 52.1 Code: 80383-5 Heart Rate 1: 100 bpm Height: 4'11" SpO2: 97% Weight: 258 lbs Functional Status No Functional Status data History of Present Illness Symptom Name Status Result Effective Date Notes Quality acute 08/06/2018 None Quality intermittent 08/06/2018 [...] Codes Date EST. PATIENT, LEVEL III Diagnosis: Essential (primary) hypertension[ICD10: I10] Gloria Hess MD, [facility] CPT-4: 58429 08/06/2018 [id number] EST. PATIENT, LEVEL III Diagnosis: Hidradenitis suppurativa[ICD10: L73.2] Gloria Hess MD, [facility] CPT- 4: 95850 07/22/2018 27749 EST. PATIENT, LEVEL III Diagnosis: Hidradenitis suppurativa[ICD10: L73.2] Diagnosis: Encounter for other specified surgical aftercare[ICD10: Z48.89] Gloria Hess MD, [facility] CPT-4: 44900 07/18/2018 07323 EST. PATIENT, LEVEL III Diagnosis: Cellulitis of right axilla[ICD10: L03.111] Diagnosis: Diarrhea, unspecified[ICD10: R19.7] Gloria Hess MD, [facility] CPT- 4: 41677 06/28/2018 ([id number]) 06212 EST. PATIENT, LEVEL II Diagnosis: Cellulitis of right axilla[ICD10: L03.111] Tamy Hess MD, [facility] CPT-4: 35354 06/17/2018 07646 EST. PATIENT, LEVEL III Diagnosis: Cellulitis of right axilla[ICD10: L03.111] Diagnosis: Type 2 diabetes mellitus with hyperglycemia[ICD10: E11.65] Gloria Hess MD, [facility] CPT-4: 52249 06/05/2018 [id number] EST. PATIENT, LEVEL III Diagnosis: Gastro-esophageal reflux disease without esophagitis[ICD10: K21.9] Diagnosis: Other allergic rhinitis[ICD10: J30.89] Diagnosis: Cough[ICD10: R05] Gloria Hess MD, [facility] CPT-4: 37925 03/26/2018 ([id number]) 68442 EST. PATIENT, LEVEL III Diagnosis: Cough[ICD10: R05] Gloria Hess MD, [facility] CPT-4: 47357 03/14/2018 95844 EST. PATIENT, LEVEL IV Diagnosis: Acute laryngopharyngitis[ICD10: J06.0] Diagnosis: Other allergic rhinitis[ICD10: J30.89] Diagnosis: Cough[ICD10: R05] Gloria Hess MD, [facility] CPT-4: 25653 03/07/2018 84508 EST. PATIENT, LEVEL IV Diagnosis: Acute bronchitis due to other specified organisms[ICD10: J20.8] Diagnosis: Acute laryngopharyngitis[ICD10: J06.0] Gloria Hess MD, [facility] CPT- 4: 12740 02/19/2018 [id number] EST. PATIENT, LEVEL IV Diagnosis: Candidiasis of vulva and vagina[ICD10: B37.3] Diagnosis: Rash and other nonspecific skin eruption[ICD10: R21] Gloria Hess MD, [facility] CPT-4: 60308 01/08/2018 40484 EST. PATIENT, LEVEL III Diagnosis: Sacrococcygeal disorders, not elsewhere classified[ICD10: M53.3] Diagnosis: Low back pain[ICD10: M54.5] Gloria Hess MD, [facility] CPT-4: 06995 11/23/2017 61381 EST. PATIENT, LEVEL III Diagnosis: Acute laryngopharyngitis[ICD10: J06.0] Diagnosis: Other allergic rhinitis[ICD10: J30.89] Diagnosis: Acute bronchitis due to other specified organisms[ICD10: J20.8] Gloria Hess MD, [facility] CPT-4: 77919 09/05/2017 49853 EST. PATIENT, LEVEL III Diagnosis: Pain in left foot[ICD10: M79.672] Diagnosis: Rash and other nonspecific skin eruption[ICD10: R21] Diagnosis: Candidiasis of vulva and vagina[ICD10: B37.3] Diagnosis: Localized edema[ICD10: R60.0] Diagnosis: Dyspnea, unspecified[ICD10: R06.00] Gloria Hess MD, [facility] CPT- 4: 89642 06/07/2017 17738 EST. PATIENT, LEVEL III Diagnosis: Low back pain[ICD10: M54.5] Diagnosis: Sacroiliitis, not elsewhere classified[ICD10: M46.1] Diagnosis: Pain in left foot[ICD10: M79.672] Diagnosis: VACCIN FOR INFLUENZA[ICD10: Z23] Gloria Hess MD, [facility] CPT-4: 73349 04/24/2017 89384 EST. PATIENT, LEVEL III Diagnosis: Acute suppurative otitis media without spontaneous rupture of ear drum, right ear[ICD10: H66.001] Diagnosis: Other allergic rhinitis[ICD10: J30.89] Gloria Hess MD, [facility] CPT- 4: 82281 01/09/2017 67170 EST. PATIENT, LEVEL IV Diagnosis: Candidiasis of vulva and vagina[ICD10: B37.3] Diagnosis: Type 2 diabetes mellitus with hyperglycemia[ICD10: E11.65] Gloria Hess MD, [facility] CPT-4: 85318 10/30/2016 18854 EST. PATIENT, LEVEL III Diagnosis: Candidiasis of vulva and vagina[ICD10: B37.3] Diagnosis: Type 2 diabetes mellitus with hyperglycemia[ICD10: E11.65] Gloria Hess MD, [facility] CPT-4: 62830 10/09/2016 99044 EST. PATIENT, LEVEL IV Diagnosis: Umbilical hernia without obstruction or gangrene[ICD10: K42.9] Gloria Hess MD, [facility] CPT-4: 12294 09/12/2016 18624 EST. PATIENT, LEVEL III Diagnosis: Epigastric pain[ICD10: R10.13] Diagnosis: Candidiasis of vulva and vagina[ICD10: B37.3] Diagnosis: Type 2 diabetes mellitus with hyperglycemia[ICD10: E11.65] Gloria Hess MD, [facility] CPT-4: 45753 09/05/2016 14436 EST. PATIENT, LEVEL III Diagnosis: Acute laryngopharyngitis[ICD10: J06.0] Diagnosis: Other allergic rhinitis[ICD10: J30.89] Gloria Hess MD, [facility] CPT- 4: 90803 06/16/2016 95821 EST. PATIENT, LEVEL III Diagnosis: Type 2 diabetes mellitus with hyperglycemia[ICD10: E11.65] Diagnosis: Other obesity due to excess calories[ICD10: E66.09] Gloria Hess MD, [facility] CPT-4: 51131 06/13/2016 47399 EST. PATIENT, LEVEL III Diagnosis: Type 2 diabetes mellitus with hyperglycemia[ICD10: E11.65] Diagnosis: Other obesity due to excess calories[ICD10: E66.09] Gloria Hess MD, [facility] CPT-4: 14219 05/19/2016 59281 EST. PATIENT, LEVEL III Diagnosis: Type 2 diabetes mellitus with hyperglycemia[ICD10: E11.65] Diagnosis: Other obesity due to excess calories[ICD10: E66.09] Gloria Hess MD, [facility] CPT-4: 98171 05/08/2016 88848 EST. PATIENT, LEVEL III Diagnosis: Type 2 diabetes mellitus without complications[ICD10: E11.9] Gloria Hess MD, [facility] CPT-4: 17099 05/05/2016 81929 EST. PATIENT, LEVEL III Diagnosis: Pain in right shoulder[ICD10: M25.511] Gloria Hess MD, [facility] CPT- 4: 60797 04/10/2016 27574 EST. PATIENT, LEVEL III Diagnosis: Pain in right shoulder[ICD10: M25.511] Diagnosis: Other muscle spasm[ICD10: M62.838] Diagnosis: Type 2 diabetes mellitus without complications[ICD10: E11.9] Gloria Hess MD, [facility] CPT-4: 38659 04/06/2016 11169 EST. PATIENT, LEVEL IV Diagnosis: Acute bronchitis due to other specified organisms[ICD10: J20.8] Diagnosis: Other acute sinusitis[ICD10: J01.80] Diagnosis: Acne vulgaris[ICD10: L70.0] Diagnosis: Morbid (severe) obesity due to excess calories[ICD10: E66.01] Gloria Hess MD, [facility] CPT-4: 84846 03/08/2016 72867 EST. PATIENT, LEVEL IV Diagnosis: Other acute sinusitis[ICD10: J01.80] Diagnosis: Localized enlarged lymph nodes[ICD10: R59.0] Gloria Hess MD, [facility] CPT-4: 89881 02/28/2016 11750 EST. PATIENT, LEVEL III Diagnosis: Type 2 diabetes mellitus without complications[ICD10: E11.9] Gloria Hess MD, [facility] CPT-4: 26403 01/18/2016 (87928) PREV VISIT EST AGE 40-64 Diagnosis: Encounter for gynecological examination (general) (routine) without abnormal findings[ICD10: Z01.419] Diagnosis: Excessive and frequent menstruation with irregular cycle[ICD10: N92.1] Gloria Hess MD, [facility] CPT-4: 28345 12/23/2015 47220 EST. PATIENT, LEVEL III Diagnosis: Type 2 diabetes mellitus without complications[ICD10: E11.9] Gloria Hess MD, [facility] CPT-4: 70286 12/16/2015 77377 EST. PATIENT, LEVEL III Diagnosis: Type 2 diabetes mellitus without complications[ICD10: E11.9] Diagnosis: Other obesity due to excess calories[ICD10: E66.09] Gloria Hess MD, [facility] CPT-4: 91210 11/11/2015 51096 EST. PATIENT, LEVEL III Diagnosis: Type 2 diabetes mellitus without complications[ICD10: E11.9] Diagnosis: Other obesity due to excess calories[ICD10: E66.09] Gloria Hess MD, [facility] CPT-4: 31139 10/27/2015 08785 EST. PATIENT, LEVEL III Diagnosis: Type 2 diabetes mellitus without complications[ICD10: E11.9] Diagnosis: Other obesity due to excess calories[ICD10: E66.09] Diagnosis: Other insomnia[ICD10: G47.09] Gloria Hess MD, [facility] CPT-4: 65719 10/13/2015 99551 EST. PATIENT, LEVEL IV Diagnosis: Acute recurrent maxillary sinusitis[ICD10: J01.01] Diagnosis: Allergic rhinitis due to pollen[ICD10: J30.1] Diagnosis: Other obesity due to excess calories[ICD10: E66.09] Gloria Hess MD, [facility] CPT-4: 69475 10/05/2015 80197 EST. PATIENT, LEVEL IV Diagnosis: Polycystic ovarian syndrome[ICD10: E28.2] Diagnosis: Other skin changes[ICD10: R23.8] Diagnosis: Other abnormal glucose[ICD10: R73.09] Gloria Hess MD, [facility] CPT- 4: 91645 09/01/2015 30605 EST. PATIENT, LEVEL IV Diagnosis: Acute recurrent maxillary sinusitis[ICD10: J01.01] Diagnosis: Morbid (severe) obesity due to excess calories[ICD10: E66.01] Diagnosis: Essential (primary) hypertension[ICD10: I10] Diagnosis: Allergic rhinitis due to pollen[ICD10: J30.1] Gloria Hess MD, [facility] CPT-4: 78201 08/20/2015 (75755) OFFICE VISIT, NEW - LEVEL 4 Diagnosis: Essential (primary) hypertension[ICD10: I10] Diagnosis: Obstructive sleep apnea (adult) (pediatric)[ICD10: G47.33] Diagnosis: Other insomnia[ICD10: G47.09] Diagnosis: Snoring[ICD10: R06.83] Diagnosis: Morbid (severe) obesity due to excess calories[ICD10: E66.01] Gloria Hess MD, [facility] CPT-4: 77383 08/03/2015 Plan of Care Planned Activity Notes Codes Status Date Visit Plan: Hypertension - uncontrolled - the [...] acute concerns. 08/06/2018 Appointment: Gloria Scott WPtel: [address] [place], [place] [id number] (30 min) [facility] 08/06/2018 Patient Education: Patient Medication Summary Completed 08/06/2018 Visit Plan: incision - healing well - Wound Instructions - Pt was instructed to keep the wound clean, wash with antibacterial soap, use triple antibiotic ointment, call if redness, pustular drainage, or any other a cute concerns. Hidradenitis suppurativa - will refer to dermatology. 07/22/2018 Appointment: Gloria Scott WPtel: [facility] (30 min) Complex 07/22/2018 Patient Education: Patient Medication Summary Completed 07/22/2018 Visit Plan: Hidradenitis suppurativa - post incision - wound healing well - continue to monitor Wound Instructions - Pt was instructed to keep the wound clean, wash with antibacterial soap, use triple antibiotic oi ntment, call if redness, pustular drainage, or any other acute concerns. 07/18/2018 Appointment: Gloria Scott WPtel: [facility] (30 min) Complex 07/18/2018 Patient Education: Patient Medication Summary Completed 07/18/2018 Referral: Roni Roberts pt will be notified by there office to schedule Initiated 07/03/2018 Care Plan: Referral Order SNOMED-CT : [id number] Pending 07/01/2018 Visit Plan: Abscess/Cellulitis - The [...] pain. 06/28/2018 Appointment: Gloria Scott WPtel: [facility] (30 min) Complex 06/28/2018 Patient Education: Patient Medication Summary Completed 06/28/2018 Visit Plan: Cellulitis-right cyyffd-igsrvrzb-dvx bactroban ointment until healed completely-call with any concerns 06/17/2018 Appointment: Tamy Lugo WPtel: [address] [place], [place] [phone] (15 min) Moderate 06/17/2018 Patient Education: Patient Medication Summary Completed 06/17/2018 Visit Plan: Abscess/Cellulitis - The patient was instructed in appropriate wound care. The patient was instructed to use the antibiotic ointment as per RX. The patient is to call for any change in symptoms, increase in size of the lesion, increase in pain, worsening redness, warmth, discharge. 06/05/2018 Appointment: Gloria Scott WPtel: [address] [place] [address] (30 min) Complex 06/05/2018 Patient Education: Patient Medication Summary Completed 06/05/2018 Patient Education: Diabetes Completed 06/05/2018 Referral: [place] [address] Referral Initiated 04/19/2018 Care Plan: Referral Order SNOMED-CT : [id number] Pending 03/27/2018 Visit Plan: Esophageal Reflux - [...] allergy spray. 03/26/2018 Appointment: Gloria Scott WPtel: [address] [place], [place] [phone] (15 min) Moderate 03/26/2018 Patient Education: Patient Medication Summary Completed 03/26/2018 Appointment: Gloria Scott WPtel: [address] [place], [place] [phone] (15 min) Moderate 03/25/2018 Visit Plan: Skin [...] and bandaids. 03/14/2018 Appointment: Gloria Scott WPtel: [address] [place], [place] [id number] (15 min) Moderate 03/14/2018 Patient Education: Patient [...] not improve 03/07/2018 Appointment: Gloria Scott WPtel: [facility] [address] (15 min) Moderate 03/07/2018 Patient Education: [...] acutely worsen. 02/19/2018 Appointment: Gloria Scott WPtel: [address] [place] [address] (15 min) Moderate 02/19/2018 Patient Education: Patient [...] warmth, discharge. 01/08/2018 Appointment: Gloria Scott WPtel: [facility] [address] (30 min) Complex 01/08/2018 Patient Education: [...] acutely worsen. 09/05/2017 Appointment: Gloria Scott WPtel: [facility]66[facility] (15 min) Moderate 09/05/2017 Patient Education: [...] RX 06/07/2017 Appointment: Gloria Scott WPtel: [facility]6[address] (15 min) Moderate 06/07/2017 Patient Education: Patient [...] injection. 04/24/2017 Appointment: Gloria Scott WPtel: [facility]6[address] (30 min) Complex 04/24/2017 Patient Education: Patient Medication Summary Completed 04/24/2017 Appointment: Gloria Scott WPtel: [facility] (30 min) Complex 03/09/2017 Appointment: Gloria Scott WPtel: [facility] (30 min) Complex 02/13/2017 Visit Plan: Otitis [...] spray. 01/09/2017 Appointment: Gloria Scott WPtel: [facility] (10 min) Simple 01/09/2017 Patient Education: Patient Medication Summary Completed 01/09/2017 Patient Education: Obesity Completed 01/09/2017 Visit Plan: Vaginal candidiasis - will send RX - pt is to notify clinic if symptoms do not improve, if they worsen, or with any questions or concerns. Diabetes Mellitus - Uncontrolled - Will refer to foundry worker - I have recommended for the patient [...] Mellitus - Uncontrolled - Will refer to foundry worker - I have recommended for the patient [...] control. 10/09/2016 Appointment: [facility]el[facility] [phone] [facility] [place] (30 min) [facility] 10/09/2016 Patient Education: Patient Medication Summary Completed 10/09/2016 Patient Education: Obesity Completed 10/09/2016 Referral: Roni Roberts Referral Completed 09/18/2016 Care Plan: CT ABD & PELV W/CONTRAST LOINC : 10798-6 Pending 09/13/2016 Care Plan: Referral Order SNOMED-CT : [id number] Pending 09/13/2016 Visit Plan: Ongoing abdominal pain/hernia - will send RX - will refer - pt is to notify clinic if symptoms do not improve, if they worsen, or with any questions or concerns. 09/12/2016 Appointment: Gloria Scott WPtel: [facility] [place] (30 min) Complex 09/12/2016 Patient Education: Patient Medication Summary Completed 09/12/2016 Patient Education: Obesity Completed 09/12/2016 Care Plan: Referral Order SNOMED-CT : [id number] Pending 09/12/2016 Visit Plan: Ongoing abdominal/epigastric pain [...] control. 09/05/2016 Appointment: [facility] Scott [facility]Ptel[facility] [address] [facility] (30 min) Complex 09/05/2016 Patient [...] spray. 06/16/2016 Appointment: Gloria Scott WPtel: [facility] (10 min) Simple 06/16/2016 Patient Education: Patient [...] check. 06/13/2016 Appointment: Gloria Scott WPtel: [facility] (30 min) Complex 06/13/2016 Patient Education: Patient Medication Summary Completed 06/13/2016 Patient Education: Obesity Completed 06/13/2016 Appointment: Gloria Scott WPtel: [facility] (30 min) Complex 06/08/2016 Visit Plan: Diabetes [...] check. 05/19/2016 Appointment: Tamy Lugo WPtel: [phone] (30 min) Complex 05/19/2016 Patient Education: Patient [...] check. 05/08/2016 Appointment: [facility] Scott [facility]Ptel[facility] [phone] [facility] (15 min) Moderate 05/08/2016 Patient Education: Patient [...] morning. 05/05/2016 Appointment: Tamy Lugo WPtel: [phone] [phone] (15 min) Moderate 05/05/2016 Patient Education: Patient Medication Summary Completed 05/05/2016 Patient Education: Obesity Completed 05/05/2016 Care Plan: Comp Metabolic Pending 05/05/2016 Appointment: [facility] [facility] 04/17/2016 Appointment: Injection 04/13/2016 Patient Education: Patient Medication Summary Completed 04/13/2016 Visit Plan: Right shoulder pain - will refer to PT - The pt is to use prn antiinflammatories to manage acute pain. The patient is to call the office if the pain is worsening or does not improve. 04/10/2016 Appointment: Gloria Scott WPtel: [phone] [facility] (30 min) Complex 04/10/2016 Patient Education: Patient [...] control. 04/06/2016 Appointment: Gloria Scott WPtel: [phone] [facility] (15 min) Moderate 04/06/2016 Patient Education: Patient [...] [place] 02/28/2016 Appointment: Gloria Scott [facility]Ptel[facility] [address] [facility] (30 min) Complex 02/28/2016 Patient Education: Patient Medication Summary Completed 02/28/2016 Patient Education: Obesity Completed 02/28/2016 Appointment: Gloria Scott [facility]Ptel[facility] [phone] [facility] (15 min) Moderate 01/31/2016 Visit [...] or prn. 12/23/2015 Appointment: Gloria Scott WPtel: [address] [place], [place] [id number] [facility] 12/23/2015 Patient Education: Patient Medication [...] %Hba1C ADD TO BLOOD IN THE LAB. [facility] : 04833-8 Pending 08/13/2015 Visit Plan: Hypertension - uncontrolled [...] 08/03/2015 Referral: Roni Roberts Referral Completed [facility] [place] Ref[facility] Initiated Referral: Roni Roberts [...] Mellitus - Uncontrolled - Will refer to foundry worker - I have recommended for the patient [...] Mellitus - Uncontrolled - Will refer to foundry worker - I have recommended for the patient [...] with any questions or concerns. . Cellulitis-right ehfsco-wjccjjll-ytl bactroban ointment until healed completely-call with any [...]
--- OUTSIDE RECORDS SUMMARY | 2018-12-17 03:21 | XMS REPORT | CCD ---
Author Author [facility] Address [address] [place] [address] Phone Care Team Providers Care Proposal Manager Writer Name Role Phone PP Unavailable CCM Unavailable Summary Purpose Interface Exchange Insurance Providers Payer name Policy type / Coverage type Covered democrat ID Effective Begin Date Effective End Date [facility] Commercial Insurance [id number] Unknown Unknown Family history Father Diagnosis Age At Onset Hypertension Unknown Arthritis Unknown Mother Diagnosis Age At Onset Arthritis Unknown Hyperlipidemia Unknown Daughter Diagnosis Age At Onset Asthma Unknown Social History Social History Element Codes Description Effective Dates Marital status Unknown Darin 08/03/2015 Number of children Unknown 1 08/03/[address]: 0217962 Quit less than 5 years ago 08/03/2015 [...] Start Date Stop Date Status Fill Instructions Phenergan with Codeine Syrup RxNorm: 5-10 ML PO QID as needed cough 08/08/2018 No Stop Date Active alprazolam 0.25 mg tablet RxNorm: 407736 1 Tablet(s) PO daily as needed anxiety 08/08/2018 No Stop Date Active ibuprofen 800 mg tablet RxNorm: 573101 1 Tablet(s) PO TID as needed for pain 08/06/2018 08/15/2018 Active Zithromax Z-Rashid 250 mg tablet RxNorm: 625316 1 Tablet(s) PO UD 08/06/2018 No Stop Date Active metoprolol succinate ER 100 mg tablet,extended release 24 hr RxNorm: 833071 Tablet(s) TAKE ONE TABLET BY MOUTH ONCE DAILY 08/06/2018 No Stop Date Active metoprolol succinate ER 50 mg tablet,extended release 24 hr RxNorm: 493995 1 Tablet(s) PO daily 08/06/2018 09/04/2018 Active Lyrica 100 mg capsule RxNorm: 015647 1 Capsule(s) PO TID 07/25/2018 10/16/2018 Active Lyrica 100 mg capsule RxNorm: 765475 1 Capsule(s) PO TID 07/25/2018 07/24/2018 Inactive mupirocin 2 % topical ointment RxNorm: 536228 1 Application TOP daily 07/22/2018 07/28/2018 Inactive ibuprofen 800 mg tablet RxNorm: 359675 1 Tablet(s) PO TID as needed for pain 07/22/2018 07/31/2018 Inactive hydrocodone 7.5 mg-acetaminophen 325 mg tablet RxNorm: 817754 1 Tablet(s) PO Q4H as needed 07/18/2018 08/16/2018 Active promethazine 25 mg tablet RxNorm: 052372 TABLET(S) TAKE ONE TABLET BY MOUTH EVERY 6 TO 8 HOURS NEEDED 07/05/2018 No Stop Date Active hyoscyamine 0.125 mg sublingual tablet RxNorm: 8645892 1 Tablet(s) SL TID as needed diarrhea 06/28/2018 07/07/2018 Inactive mupirocin 2 % topical ointment RxNorm: 721554 1 Application TOP BID 06/17/2018 06/26/2018 Inactive mupirocin 2 % topical ointment RxNorm: 749227 1 Application TOP BID 06/05/2018 No Stop Date Active Keflex 500 mg capsule RxNorm: 518613 1 Capsule(s) PO TID 06/05/2018 06/11/2018 Inactive ceftriaxone 500 mg solution for injection RxNorm: 8408572 Inj 06/05/2018 06/05/2018 Inactive Diflucan 150 mg tablet RxNorm: 925062 1 Tablet(s) PO daily 06/05/2018 07/02/2018 Inactive Protonix 40 mg tablet,delayed release RxNorm: 810542 1 Tablet(s) PO BID x 1 week then daily 03/26/2018 No Stop Date Active Phenergan with Codeine Syrup RxNorm: 5-10 ML PO QID as needed cough 03/19/2018 08/07/2018 Inactive promethazine 25 mg tablet RxNorm: 753991 Tablet(s) TAKE ONE TABLET BY MOUTH EVERY 6 TO 8 HOURS NEEDED 03/15/2018 07/04/2018 Inactive Singulair 10 mg tablet RxNorm: 311660 1 Tablet(s) PO daily 03/14/2018 04/12/2018 Inactive metoprolol succinate ER 100 mg tablet,extended release 24 hr RxNorm: 939615 1 Tablet(s) PO daily 03/07/2018 04/05/2018 Inactive Zithromax Z-Rashid 250 mg tablet RxNorm: 995075 1 Tablet(s) PO UD 03/07/2018 03/07/2018 Inactive prednisone 20 mg tablet RxNorm: 387287 2 Tablet(s) PO daily 03/07/2018 03/11/2018 Inactive albuterol sulfate 2.5 mg/3 mL (0.083 %) solution for nebulization RxNorm: 853847 3 Milliliter(s) INH Q4-6H as needed dyspnea 02/19/2018 No Stop Date Active Diflucan 150 mg tablet RxNorm: 195880 Tablet(s) TAKE ONE TABLET BY MOUTH ONCE DAILY FOR 7 DAYS THEN TAKE ONE TABLET BY MOUTH ONCE A WEEK 02/19/2018 06/04/2018 Inactive Levaquin 500 mg tablet RxNorm: 193211 1 Tablet(s) PO daily 02/19/2018 02/25/2018 Inactive prednisone 20 mg tablet RxNorm: 009004 2 Tablet(s) PO daily 02/19/2018 02/23/2018 Inactive Kenalog 40 mg/mL suspension for injection RxNorm: 7846435 15. Milliliter(s) Inj 02/19/2018 02/19/2018 Inactive hydrocodone 7.5 mg-acetaminophen 325 mg tablet RxNorm: 130341 1 Tablet(s) PO Q4H as needed 02/05/2018 03/06/2018 Inactive clindamycin HCl 300 mg capsule RxNorm: 306564 1 Capsule(s) PO TID 01/09/2018 01/15/2018 Inactive promethazine 25 mg tablet RxNorm: 549596 Tablet(s) TAKE ONE TABLET BY MOUTH EVERY 6 TO 8 HOURS NEEDED 01/08/2018 03/14/2018 Inactive Diflucan 150 mg tablet RxNorm: 947425 Tablet(s) TAKE ONE TABLET BY MOUTH ONCE DAILY FOR 7 DAYS THEN TAKE ONE TABLET BY MOUTH ONCE A WEEK 01/08/2018 02/18/2018 Inactive Bactrim DS 800 mg-160 mg tablet RxNorm: 677041 1 Tablet(s) PO BID 01/08/2018 01/17/2018 Inactive prednisone 20 mg tablet RxNorm: 780066 2 Tablet(s) PO daily 11/23/2017 11/27/2017 Inactive Zithromax Z-Rashid 250 mg tablet RxNorm: 689372 1 Tablet(s) PO UD 09/05/2017 02/11/2018 Inactive Kenalog 40 mg/mL suspension for injection RxNorm: 7640447 Milliliter(s) Inj 09/05/2017 09/05/2017 Inactive prednisone 20 mg tablet RxNorm: 788364 2 Tablet(s) PO daily 09/05/2017 09/09/2017 Inactive ibuprofen 800 mg tablet RxNorm: 041324 1 Tablet(s) PO TID 07/27/2017 02/21/2018 Inactive alprazolam 0.5 mg tablet RxNorm: 367815 1 Tablet(s) PO Q8 as needed 06/20/2017 07/09/2017 Inactive metoprolol succinate ER 100 mg tablet,extended release 24 hr RxNorm: 965381 TAKE ONE TABLET BY MOUTH ONCE DAILY 06/20/2017 08/05/2018 Inactive Zithromax Z-Rashid 250 mg tablet RxNorm: 971345 1 Tablet(s) PO UD 06/15/2017 07/25/2017 Inactive Xopenex HFA 45 mcg/actuation aerosol inhaler RxNorm: 052173 INHALE ONE PUFF INTO LUNGS NEEDED 06/13/2017 07/14/2017 Inactive Xopenex 1.25 mg/3 mL solution for nebulization RxNorm: 057770 Milliliter(s) USE ONE VIAL IN NEBULIZER THREE TIMES DAILY 06/08/2017 No Stop Date Active Flovent HFA 44 mcg/actuation aerosol inhaler RxNorm: 769589 2 Puff(s) INH BID 06/08/2017 No Stop Date Active potassium chloride ER 10 mEq tablet,extended release RxNorm: 686613 1 Tablet(s) PO daily 06/08/2017 06/10/2017 Inactive Lasix 20 mg tablet RxNorm: 514624 1 Tablet(s) PO daily 06/08/2017 06/10/2017 Inactive Xopenex HFA 45 mcg/actuation aerosol inhaler RxNorm: 429251 INHALE ONE PUFF INTO LUNGS NEEDED 06/08/2017 06/12/2017 Inactive triamcinolone acetonide 0.025 % topical cream RxNorm: 3870985 1 Application TOP BID 06/07/2017 No Stop Date Active ibuprofen 800 mg tablet RxNorm: 804764 1 Tablet(s) PO TID 06/07/2017 07/06/2017 Inactive cyclobenzaprine 5 mg tablet RxNorm: 339596 1/2 Tablet(s) PO TID as needed muscle spasms 05/28/2017 06/01/2017 Inactive Diflucan 150 mg tablet RxNorm: 945267 TAKE ONE TABLET BY MOUTH ONCE DAILY FOR 7 DAYS THEN TAKE ONE TABLET BY MOUTH ONCE A WEEK 05/28/2017 01/07/2018 Inactive bumetanide 1 mg tablet RxNorm: 910027 TAKE ONE TABLET BY MOUTH TWICE DAILY 05/25/2017 No Stop Date Active meloxicam 7.5 mg tablet RxNorm: 614818 1 Tablet(s) PO daily as needed 05/25/2017 07/23/2017 Inactive Xopenex 1.25 mg/3 mL solution for nebulization RxNorm: 506775 USE ONE VIAL IN NEBULIZER THREE TIMES DAILY 05/25/2017 06/07/2017 Inactive Protonix 40 mg tablet,delayed release RxNorm: 868784 1 Tablet(s) PO daily 05/08/2017 11/03/2017 Inactive Protonix 40 mg tablet,delayed release RxNorm: 570820 1 Tablet(s) PO daily 05/04/2017 05/03/2017 Inactive Protonix 40 mg tablet,delayed release RxNorm: 887272 1 Tablet(s) PO daily 05/04/2017 05/07/2017 Inactive meloxicam 7.5 mg tablet RxNorm: 515480 1 Tablet(s) PO daily as needed 04/25/2017 04/24/2017 Inactive meloxicam 7.5 mg tablet RxNorm: 105276 1 Tablet(s) PO daily as needed 04/25/2017 05/04/2017 Inactive promethazine 25 mg tablet RxNorm: 919417 TAKE ONE TABLET BY MOUTH EVERY 6 TO 8 HOURS NEEDED 04/25/2017 01/07/2018 Inactive Kenalog 40 mg/mL suspension for injection RxNorm: 9170306 1 Milliliter(s) Inj 04/24/2017 04/24/2017 Inactive cyclobenzaprine 5 mg tablet RxNorm: 818312 1/2 Tablet(s) PO TID as needed muscle spasms 04/24/2017 04/28/2017 Inactive Xopenex HFA 45 mcg/actuation aerosol inhaler RxNorm: 242325 INHALE ONE PUFF INTO LUNGS NEEDED 03/30/2017 04/14/2017 Inactive Humalog KwikPen 200 unit/mL (3 mL) subcutaneous RxNorm: 2509065 INJECT 35 UNITS SUBCUTANEOUSLY BEFORE MEAL(S) 03/30/2017 06/05/2017 Inactive promethazine 25 mg tablet RxNorm: 625563 Tablet(s) TAKE ONE TABLET BY MOUTH EVERY 6 TO 8 HOURS NEEDED 03/12/2017 03/26/2017 Inactive cyclobenzaprine 10 mg tablet RxNorm: 403514 TAKE ONE TABLET BY MOUTH ONCE DAILY NEEDED 03/06/2017 03/15/2017 Inactive lidocaine 5 % topical patch RxNorm: 1617536 USE ONE PATCH TOPICALLY DAILY. 12 HOURS ON AND THEN 12 HOURS OFF. 03/06/2017 03/15/2017 Inactive Humalog KwikPen 200 unit/mL (3 mL) subcutaneous RxNorm: 2911381 INJECT 35 UNITS SUBCUTANEOUSLY BEFORE MEAL(S) 02/20/2017 03/25/2017 Inactive promethazine 25 mg tablet RxNorm: 765491 Tablet(s) TAKE ONE TABLET BY MOUTH EVERY 6 TO 8 HOURS NEEDED 02/20/2017 03/06/2017 Inactive Xopenex HFA 45 mcg/actuation aerosol inhaler RxNorm: 503147 INHALE ONE PUFF INTO LUNGS NEEDED 02/20/2017 03/07/2017 Inactive bumetanide 1 mg tablet RxNorm: 845679 TAKE ONE TABLET BY MOUTH TWICE DAILY 02/15/2017 05/15/2017 Inactive bumetanide 1 mg tablet RxNorm: 679284 TAKE ONE TABLET BY MOUTH TWICE DAILY 01/15/2017 02/13/2017 Inactive metoprolol succinate ER 100 mg tablet,extended release 24 hr RxNorm: 057033 TAKE ONE TABLET BY MOUTH ONCE DAILY 01/11/2017 06/19/2017 Inactive Zithromax Z-Rashid 250 mg tablet RxNorm: 655092 1 Tablet(s) PO UD 01/09/2017 03/13/2017 Inactive meclizine 25 mg tablet RxNorm: 881470 1 Tablet(s) PO TID as needed 01/09/2017 01/18/2017 Inactive Kenalog 40 mg/mL suspension for injection RxNorm: 4831709 Milliliter(s) Inj 01/09/2017 01/09/2017 Inactive promethazine 25 mg tablet RxNorm: 650040 Tablet(s) TAKE ONE TABLET BY MOUTH EVERY 6 TO 8 HOURS NEEDED 12/29/2016 01/12/2017 Inactive Voltaren 1 % topical gel RxNorm: 159463 APPLY TOPICALLY TO AFFECTED AREA TWICE DAILY 12/25/2016 01/13/2017 Inactive cyclobenzaprine 10 mg tablet RxNorm: 508536 TAKE ONE TABLET BY MOUTH NEEDED 12/22/2016 12/31/2016 Inactive lidocaine 5 % topical patch RxNorm: 1568008 USE ONE PATCH TOPICALLY DAILY. 12 HOURS ON AND THEN 12 HOURS OFF. 12/22/2016 12/31/2016 Inactive hydrocodone 7.5 mg-acetaminophen 325 mg tablet RxNorm: 108519 1 Tablet(s) PO Q4H as needed 12/22/2016 01/20/2017 Inactive bumetanide 1 mg tablet RxNorm: 264079 TAKE ONE TABLET BY MOUTH TWICE DAILY 12/17/2016 01/14/2017 Inactive promethazine 25 mg tablet RxNorm: 533425 Tablet(s) TAKE ONE TABLET BY MOUTH EVERY 6 TO 8 HOURS NEEDED 11/16/2016 12/15/2016 Inactive spironolactone 50 mg tablet RxNorm: 134136 TAKE ONE TABLET BY MOUTH TWICE DAILY 11/15/2016 05/13/2017 Inactive Basaglar KwikPen 100 unit/mL (3 mL) subcutaneous RxNorm: 7580491 Unit(s) INJECT 35 UNITS IN THE MORNING AND 50 UNITS IN THE EVENING SUBCUTANEOUSLY 11/15/2016 03/14/2017 Inactive cyclobenzaprine 10 mg tablet RxNorm: 571361 TAKE ONE TABLET BY MOUTH NEEDED 11/15/2016 12/04/2016 Inactive lidocaine 5 % topical patch RxNorm: 8084857 1 Patch TOP daily . 12 HOURS ON, 12 HOURS OFF 11/15/2016 12/04/2016 Inactive lidocaine 4 % topical patch RxNorm: 7969074 1 Patch TOP on for 12 hours and off for 12 hours 11/14/2016 11/14/2016 Inactive promethazine 25 mg tablet RxNorm: 355156 TAKE ONE TABLET BY MOUTH EVERY 6 TO 8 HOURS NEEDED 11/14/2016 11/15/2016 Inactive Basaglar KwikPen 100 unit/mL (3 mL) subcutaneous RxNorm: 5358102 INJECT 35 UNITS IN THE MORNING AND 50 UNITS IN THE EVENING SUBCUTANEOUSLY 11/14/2016 11/14/2016 Inactive cyclobenzaprine 10 mg tablet RxNorm: 130966 TAKE ONE TABLET BY MOUTH NEEDED 11/14/2016 11/14/2016 Inactive spironolactone 50 mg tablet RxNorm: 745328 TAKE ONE TABLET BY MOUTH TWICE DAILY 11/14/2016 11/14/2016 Inactive Diflucan 150 mg tablet RxNorm: 481799 1 Tablet(s) PO as needed prophylactic after sexual intercourse 10/30/2016 No Stop Date Active hydrocodone 7.5 mg-acetaminophen 325 mg tablet RxNorm: 634212 1 Tablet(s) PO Q4H as needed 10/30/2016 11/28/2016 Inactive clotrimazole 100 mg vaginal tablet RxNorm: 315308 1 Tablet(s) VAG QW 10/30/2016 11/28/2016 Inactive Humalog KwikPen 200 unit/mL (3 mL) subcutaneous RxNorm: 5038516 35 Unit(s) SQ AC 10/30/2016 02/19/2017 Inactive QS 30 day supply Bydureon 2 mg/0.65 mL subcutaneous pen injector RxNorm: 2632615 2 Milligram(s) SQ QW 10/30/2016 11/28/2016 Inactive Basaglar KwikPen 100 unit/mL (3 mL) subcutaneous RxNorm: 1800597 Unit(s) SQ 35 units in the morning and 50 units in the evening 10/30/2016 11/13/2016 Inactive QS 30 day supply cyclobenzaprine 10 mg tablet RxNorm: 522748 TAKE ONE TABLET BY MOUTH NEEDED 10/27/2016 11/05/2016 Inactive Diflucan 150 mg tablet RxNorm: 792192 1 Tablet(s) PO daily x 7 days then once a week 10/27/2016 10/29/2016 Inactive promethazine 25 mg tablet RxNorm: 036592 TAKE ONE TABLET BY MOUTH EVERY 6 TO 8 HOURS NEEDED 10/27/2016 11/10/2016 Inactive Diflucan 150 mg tablet RxNorm: 038850 1 Tablet(s) PO daily x 7 days then once a week 10/09/2016 10/15/2016 Inactive Diflucan 150 mg tablet RxNorm: 252134 1 Tablet(s) PO daily 09/20/2016 09/26/2016 Inactive Cipro 500 mg tablet RxNorm: 603133 1 Tablet(s) PO BID 09/12/2016 09/21/2016 Inactive Flagyl 500 mg tablet RxNorm: 099692 1 Tablet(s) PO TID 09/12/2016 09/21/2016 Inactive Diflucan 150 mg tablet RxNorm: 526193 1 Tablet(s) PO daily 09/06/2016 09/12/2016 Inactive hydrocodone 7.5 mg-acetaminophen 325 mg tablet RxNorm: 420592 1 Tablet(s) PO Q4H as needed 07/12/2016 08/10/2016 Inactive Xopenex 1.25 mg/3 mL solution for nebulization RxNorm: 209449 3 Milliliter(s) INH TID 06/16/2016 05/24/2017 Inactive cefdinir 300 mg capsule RxNorm: 511527 1 Capsule(s) PO BID 06/16/2016 06/25/2016 Inactive Mobic 7.5 mg tablet RxNorm: 271634 1 Tablet(s) PO daily 06/16/2016 06/25/2016 Inactive Levaquin 500 mg tablet RxNorm: 206707 1 Tablet(s) PO daily 06/16/2016 06/22/2016 Inactive cyclobenzaprine 10 mg tablet RxNorm: 511768 1 Tablet(s) PO PRN as needed 06/14/2016 06/23/2016 Inactive promethazine 25 mg tablet RxNorm: 132296 TAKE ONE TABLET BY MOUTH EVERY 6 TO 8 HOURS NEEDED 06/14/2016 06/28/2016 Inactive Xopenex HFA 45 mcg/actuation aerosol inhaler RxNorm: 505686 1 Puff(s) INH PRN 06/14/2016 07/15/2016 Inactive pen needle, diabetic 32 gauge x 5/16" RxNorm: 1 use Miscellaneous AC & HS 06/13/2016 No Stop Date Active QS 30 day supply Humalog KwikPen 200 unit/mL (3 mL) subcutaneous RxNorm: 7524082 10 Unit(s) SQ AC 06/13/2016 10/29/2016 Inactive QS 30 day supply Basaglar KwikPen 100 unit/mL (3 mL) subcutaneous RxNorm: 2842015 22 units in the morning and 35 in the evening. Unit(s) SQ 06/13/2016 10/29/2016 Inactive QS 30 day supply Tivorbex 20 mg capsule RxNorm: 4052839 1 Capsule(s) PO TID as needed 06/13/2016 06/13/2016 Inactive metoprolol succinate ER 100 mg tablet,extended release 24 hr RxNorm: 818033 TAKE ONE TABLET BY MOUTH ONCE DAILY 06/13/2016 10/10/2016 Inactive hydrocodone 7.5 mg-acetaminophen 325 mg tablet RxNorm: 244610 1 Tablet(s) PO Q4H as needed 06/13/2016 07/11/2016 Inactive Voltaren 1 % topical gel RxNorm: 126222 APPLY TOPICALLY TO AFFECTED AREA TWICE DAILY 05/30/2016 07/08/2016 Inactive cyclobenzaprine 10 mg tablet RxNorm: 352750 1 Tablet(s) PO PRN as needed 05/19/2016 05/28/2016 Inactive alprazolam 0.5 mg tablet RxNorm: 182576 1 Tablet(s) PO Q8 as needed 05/19/2016 07/23/2018 Inactive bumetanide 1 mg tablet RxNorm: 421118 TAKE ONE TABLET BY MOUTH TWICE DAILY 05/19/2016 06/17/2016 Inactive Sprintec (28) 0.25 mg-35 mcg tablet RxNorm: 535388 1 Tablet(s) PO UD 05/08/2016 No Stop Date Active Lantus Solostar 100 unit/mL (3 mL) subcutaneous insulin pen RxNorm: 056333 Unit(s) SQ UD 15units qam 30 units qhs 05/08/2016 No Stop Date Active Humalog KwikPen 200 unit/mL (3 mL) subcutaneous RxNorm: 0175846 10 Unit(s) SQ AC 05/08/2016 06/12/2016 Inactive bumetanide 1 mg tablet RxNorm: 481636 TAKE ONE TABLET BY MOUTH TWICE DAILY 04/28/2016 05/18/2016 Inactive Voltaren 1 % topical gel RxNorm: 579518 1 Application TOP BID 04/28/2016 05/07/2016 Inactive cyclobenzaprine 10 mg tablet RxNorm: 874025 1 Tablet(s) PO PRN as needed 04/28/2016 05/07/2016 Inactive hydrocodone 7.5 mg-acetaminophen 325 mg tablet RxNorm: 614772 1 Tablet(s) PO Q4H as needed 04/18/2016 05/16/2016 Inactive Lantus Solostar 100 unit/mL (3 mL) subcutaneous insulin pen RxNorm: 382975 Unit(s) SQ UD 10 units QHS x5 days, if sugars are over 200 increase to 15 units x 5 days, if sugars over 200 increase to 20 units. 04/14/2016 05/07/2016 Inactive lidocaine 4 % topical patch RxNorm: 7126112 1 Patch TOP on for 12 hours and off for 12 hours 04/13/2016 11/13/2016 Inactive Voltaren 1 % topical gel RxNorm: 706933 1 Application TOP BID 04/10/2016 04/27/2016 Inactive metformin ER 500 mg 24 hr tablet,extended release RxNorm: 806133 1 Tablet(s) PO daily 04/06/2016 05/05/2016 Inactive Kenalog 40 mg/mL suspension for injection RxNorm: 2224132 1 Milliliter(s) Inj 04/06/2016 04/06/2016 Inactive cyclobenzaprine 10 mg tablet RxNorm: 426179 1 Tablet(s) PO PRN as needed 04/06/2016 04/27/2016 Inactive WelChol 3.75 gram oral powder packet RxNorm: 258843 1 packet PO daily 04/06/2016 07/04/2016 Inactive alprazolam 0.5 mg tablet RxNorm: 890801 1 Tablet(s) PO Q8 as needed 03/30/2016 06/19/2017 Inactive Levaquin 500 mg tablet RxNorm: 718690 1 Tablet(s) PO daily 03/30/2016 04/05/2016 Inactive metoprolol succinate ER 100 mg tablet,extended release 24 hr RxNorm: 715631 TAKE ONE TABLET BY MOUTH ONCE DAILY 03/16/2016 06/12/2016 Inactive Levaquin 500 mg tablet RxNorm: 568605 1 Tablet(s) PO daily 03/08/2016 03/14/2016 Inactive prednisone 20 mg tablet RxNorm: 334028 2 Tablet(s) PO daily 03/08/2016 03/12/2016 Inactive Xopenex HFA 45 mcg/actuation aerosol inhaler RxNorm: 035576 1 Puff(s) INH PRN 02/28/2016 06/13/2016 Inactive Phenergan with Codeine Syrup RxNorm: 5-10 ML PO QID as needed cough 02/28/2016 03/18/2018 Inactive Kenalog 40 mg/mL suspension for injection RxNorm: 9028986 1 Milliliter(s) Inj 02/28/2016 02/28/2016 Inactive Zithromax Z-Rashid 250 mg tablet RxNorm: 750922 1 Tablet(s) PO UD 02/28/2016 03/27/2016 Inactive alprazolam 0.5 mg tablet RxNorm: 595545 1 Tablet(s) PO Q8 as needed 02/24/2016 06/19/2017 Inactive glipizide 5 mg tablet RxNorm: 839431 1 Tablet(s) PO daily 01/18/2016 05/16/2016 Inactive Actos 15 mg tablet RxNorm: 933268 1 Tablet(s) PO daily 01/18/2016 02/16/2016 Inactive gabapentin 100 mg capsule RxNorm: 160051 1 Capsule(s) PO QHS 01/13/2016 03/12/2016 Inactive gabapentin 100 mg capsule RxNorm: 557723 1 Capsule(s) PO QHS 01/13/2016 01/12/2016 Inactive Bydureon 2 mg/0.65 mL subcutaneous pen injector RxNorm: 8479543 1 Milliliter(s) SQ QW 01/12/2016 01/11/2016 Inactive Bydureon 2 mg/0.65 mL subcutaneous pen injector RxNorm: 5896448 2/0.65ml Milligram(s) SQ QW 01/12/2016 05/16/2016 Inactive Bydureon 2 mg/0.65 mL subcutaneous pen injector RxNorm: 8745580 1 Milliliter(s) SQ QW 01/12/2016 01/11/2016 Inactive bumetanide 1 mg tablet RxNorm: 034735 TAKE ONE TABLET BY MOUTH TWICE DAILY 01/10/2016 04/08/2016 Inactive promethazine 25 mg tablet RxNorm: 925927 Tablet(s) Tablet(s) 1 Tablet(s) PO Q6-8H as needed 12/16/2015 04/13/2016 Inactive promethazine 25 mg tablet RxNorm: 421746 Tablet(s) 1 Tablet(s) PO Q6-8H as needed 12/10/2015 12/15/2015 Inactive Trulicity 0.75 mg/0.5 mL subcutaneous pen injector RxNorm: 5667815 INJECT ONE-HALF ML SUBCUTANEOUSLY ONCE A WEEK 12/10/2015 01/11/2016 Inactive glipizide 5 mg tablet RxNorm: 435492 1 Tablet(s) PO daily 12/10/2015 01/17/2016 Inactive bumetanide 1 mg tablet RxNorm: 797959 TAKE ONE TABLET BY MOUTH TWICE DAILY 12/10/2015 01/08/2016 Inactive promethazine 25 mg tablet RxNorm: 434592 Tablet(s) 1 Tablet(s) PO Q6-8H as needed 11/18/2015 12/09/2015 Inactive promethazine 25 mg tablet RxNorm: 782876 1 Tablet(s) PO Q6-8H as needed 11/16/2015 11/17/2015 Inactive glipizide 5 mg tablet RxNorm: 677445 1/2 Tablet(s) PO daily 11/16/2015 12/15/2015 Inactive promethazine 25 mg tablet RxNorm: 111466 Tablet(s) 1 Tablet(s) PO Q6-8H as needed 11/11/2015 12/10/2015 Inactive Trulicity 0.75 mg/0.5 mL subcutaneous pen injector RxNorm: 7980058 .5 Milliliter(s) SQ QW 11/11/2015 01/11/2016 Inactive metoprolol tartrate 50 mg tablet RxNorm: 301447 1 Tablet(s) PO BID 11/11/2015 07/29/2018 Inactive promethazine 25 mg tablet RxNorm: 251179 1 Tablet(s) PO Q6-8H as needed 10/28/2015 11/10/2015 Inactive nystatin 100,000 unit/gram topical cream RxNorm: 460264 1 Gram(s) TOP BID 10/27/2015 No Stop Date Active alprazolam 0.5 mg tablet RxNorm: 945160 1 Tablet(s) PO Q8 as needed 10/27/2015 03/29/2016 Inactive hydrocodone 7.5 mg-acetaminophen 325 mg tablet RxNorm: 364507 1 Tablet(s) PO Q4H as needed 10/27/2015 11/25/2015 Inactive Trulicity 0.75 mg/0.5 mL subcutaneous pen injector RxNorm: 7599733 .5 Milliliter(s) SQ QW 10/27/2015 11/10/2015 Inactive glipizide 5 mg tablet RxNorm: 210664 1 Tablet(s) PO daily 10/27/2015 11/25/2015 Inactive hydrocodone 7.5 mg-acetaminophen 325 mg tablet RxNorm: 502786 1 Tablet(s) PO Q4H as needed 10/26/2015 10/26/2015 Inactive alprazolam 0.5 mg tablet RxNorm: 535789 1 Tablet(s) PO PRN as needed 10/26/2015 10/26/2015 Inactive promethazine 25 mg tablet RxNorm: 779690 1 Tablet(s) PO Q6-8H as needed 10/26/2015 11/15/2015 Inactive glipizide 5 mg tablet RxNorm: 606084 1/2 Tablet(s) PO daily 10/13/2015 10/26/2015 Inactive cefdinir 300 mg capsule RxNorm: 444349 1 Capsule(s) PO BID 10/05/2015 10/14/2015 Inactive prednisone 20 mg tablet RxNorm: 181136 2 Tablet(s) PO daily 10/05/2015 10/09/2015 Inactive Diflucan 150 mg tablet RxNorm: 752408 1 Tablet(s) PO daily 10/05/2015 10/11/2015 Inactive Invokamet 50 mg-500 mg tablet RxNorm: 8997544 1 Tablet(s) PO daily 10/05/2015 11/03/2015 Inactive alprazolam 0.5 mg tablet RxNorm: 362167 1 Tablet(s) PO PRN as needed 10/01/2015 02/23/2016 Inactive promethazine 25 mg tablet RxNorm: 738680 1 Tablet(s) PO Q6-8H as needed 09/30/2015 10/25/2015 Inactive bumetanide 1 mg tablet RxNorm: 212526 TAKE ONE TABLET BY MOUTH TWICE DAILY 09/30/2015 10/29/2015 Inactive bumetanide 1 mg tablet RxNorm: 695963 TAKE ONE TABLET BY MOUTH TWICE DAILY 09/20/2015 12/18/2015 Inactive bumetanide 1 mg tablet RxNorm: 569974 1 Tablet(s) PO BID 09/20/2015 10/19/2015 Inactive metoprolol succinate ER 100 mg tablet,extended release 24 hr RxNorm: 409580 1 Tablet(s) PO daily 09/16/2015 03/13/2016 Inactive spironolactone 50 mg tablet RxNorm: 235105 1 Tablet(s) PO BID 09/16/2015 03/13/2016 Inactive alprazolam 0.5 mg tablet RxNorm: 447557 1 Tablet(s) PO PRN as needed 09/16/2015 10/25/2015 Inactive hydrocodone 7.5 mg-acetaminophen 325 mg tablet RxNorm: 306177 1 Tablet(s) PO Q4H as needed 09/16/2015 10/25/2015 Inactive Invokamet 50 mg-1,000 mg tablet RxNorm: 8020851 1 Tablet(s) PO daily 09/06/2015 09/05/2015 Inactive Invokamet 50 mg-1,000 mg tablet RxNorm: 4742753 1 Tablet(s) PO daily 09/06/2015 12/04/2015 Inactive promethazine 25 mg tablet RxNorm: 536608 TAKE ONE TABLET BY MOUTH EVERY 6 TO 8 HOURS NEEDED 09/01/2015 09/16/2015 Inactive promethazine 25 mg tablet RxNorm: 362480 1 Tablet(s) PO Q6-8H as needed 08/27/2015 09/25/2015 Inactive metoprolol succinate ER 100 mg tablet,extended release 24 hr RxNorm: 726739 1 Tablet(s) PO daily 08/20/2015 09/15/2015 Inactive bumetanide 1 mg tablet RxNorm: 474288 1 Tablet(s) PO BID 08/20/2015 09/18/2015 Inactive Bumex 1 mg tablet RxNorm: 467197 1 Tablet(s) PO BID 08/20/2015 11/15/2015 Inactive Kenalog 40 mg/mL suspension for injection RxNorm: 9532070 Milliliter(s) Inj 08/20/2015 08/20/2015 Inactive bumetanide 1 mg tablet RxNorm: 960793 1 Tablet(s) PO BID 08/20/2015 08/19/2015 Inactive Levaquin 500 mg tablet RxNorm: 564838 1 Tablet(s) PO daily 08/20/2015 08/26/2015 Inactive promethazine 25 mg tablet RxNorm: 795114 1 Tablet(s) PO Q6-8H as needed 08/06/2015 08/26/2015 Inactive metformin 500 mg tablet RxNorm: 938089 Tablet(s) PO 500mg in the morning and 1000mg at night No Start Date 09/16/2015 Inactive alprazolam 0.25 mg tablet RxNorm: 492747 1 Tablet(s) PO daily as needed anxiety No Start Date 08/07/2018 Inactive Lantus Solostar 100 unit/mL (3 mL) subcutaneous insulin pen RxNorm: 265269 Unit(s) SQ UD 10 units QHS x 5 days, if blood sugars are above 200 increase to 15 units x 5 days, if still 200 increase to 20 units. No Start Date 04/13/2016 Inactive alprazolam 0.5 mg tablet RxNorm: 464612 1 Tablet(s) PO PRN as needed No Start Date 09/15/2015 Inactive cyclobenzaprine 10 mg tablet RxNorm: 369796 1 Tablet(s) PO PRN as needed No Start Date 04/05/2016 Inactive lidocaine 4 % topical patch RxNorm: 7793634 1 Patch TOP on for 12 hours and off for 12 hours No Start Date 04/12/2016 Inactive metoprolol tartrate 50 mg tablet RxNorm: 031865 1 Tablet(s) PO BID No Start Date 11/10/2015 Inactive spironolactone 50 mg tablet RxNorm: 097550 1 Tablet(s) PO BID No Start Date 09/15/2015 Inactive hydrocodone 7.5 mg-acetaminophen 325 mg tablet RxNorm: 351395 1 Tablet(s) PO Q4H as needed No Start Date 09/15/2015 Inactive promethazine 25 mg tablet RxNorm: 319595 1 Tablet(s) PO PRN as needed No Start Date 08/05/2015 Inactive Medication Administered Medication Codes Instructions Start Date Status ceftriaxone 500 mg solution for injection RxNorm: 1497902 06/05/2018 No longer Active Kenalog 40 mg/mL suspension for injection RxNorm: 0954876 15.Milliliter 02/19/2018 No longer Active Kenalog 40 mg/mL suspension for injection RxNorm: 3475191 Milliliter 09/05/2017 No longer Active Kenalog 40 mg/mL suspension for injection RxNorm: 1190272 1Milliliter 04/24/2017 No longer Active Kenalog 40 mg/mL suspension for injection RxNorm: 1558599 Milliliter 01/09/2017 No longer Active Kenalog 40 mg/mL suspension for injection RxNorm: 5962460 1Milliliter 04/06/2016 No longer Active Kenalog 40 mg/mL suspension for injection RxNorm: 7185327 1Milliliter 02/28/2016 No longer Active Kenalog 40 mg/mL suspension for injection RxNorm: 8371471 Milliliter 08/20/2015 No longer Active Immunizations Vaccine [...] Code Item Item Code Result Date %Hba1C Jqc740 % HbA1c 64175- 6 8.4 % 06/06/2018 %Hba1C Dez579 Gluc Ave 194 mg/dL 06/06/2018 Lipid Ord30 CHOL 233 mg/dL 03/14/2018 Lipid Ord30 HDL 38.0 mg/dl 03/14/2018 Lipid Ord30 TRIG 143 mg/dL 03/14/2018 Lipid Ord30 LDL 166 mg/dL 03/14/2018 Lipid Ord30 C/HDL 6.1 Ratio 03/14/2018 %Hba1C Aus646 % HbA1c 04756- 6 9.8 % 03/14/2018 %Hba1C Ryq374 Gluc Ave 235 mg/dL 03/14/2018 Tsh Ord6 TSH (3rd IS) 1.09 uIU/mL 03/14/2018 Comp Metabolic Fpa300 NA 137 mEq/L 03/14/2018 Comp Metabolic Fty987 K 4.6 mEq/L 03/14/2018 Comp Metabolic Gda729 CL 100 mEq/L 03/14/2018 Comp Metabolic Eho137 CO2 27.0 mEq/L 03/14/2018 Comp Metabolic Qpy432 ANION GAP 15 03/14/2018 Comp Metabolic Cak465 GLUCOSE 144 mg/dL 03/14/2018 Comp Metabolic Sym731 Creat 0.5 mg/dL 03/14/2018 Comp Metabolic Tgk639 eGFR 138 ml/min/1.73m2 03/14/2018 Comp Metabolic Miq098 BUN 9 mg/dL 03/14/2018 Comp Metabolic Ghb788 B/C Ratio 17.6 Ratio 03/14/2018 Comp Metabolic Bre797 CALCIUM 10.0 mg/dL 03/14/2018 Comp Metabolic Guw346 ALK PHOS 102 U/L 03/14/2018 Comp Metabolic Qjp399 AST(SGOT) 31 U/L 03/14/2018 Comp Metabolic Lrd822 ALT(SGPT) 41 U/L 03/14/2018 Comp Metabolic Gox956 BILI T 0.5 mg/dL 03/14/2018 Comp Metabolic Ynx417 ALBUMIN 4.3 g/dL 03/14/2018 Comp Metabolic Clq281 TPRO 6.8 g/dL 03/14/2018 Comp Metabolic Ple828 GLOB 2.5 g/dL 03/14/2018 Comp Metabolic Rha081 A/G Ratio 1.8 Ratio 03/14/2018 Comp Metabolic Afk622 Osmo 275 mOsmo 03/14/2018 Cbc With Differential [...] 90.5 fl 03/14/2018 Cbc With Differential Ord2 [place]% 5.6 % 03/14/2018 Cbc With Differential Ord2 [...] 4.31 K/ul 03/14/2018 Cbc With Differential Ord2 [place] ABS# 0.9 K/ul 03/14/2018 Cbc With Differential Ord2 Eos ABS# 0.2 K/ul 03/14/2018 Cbc With Differential Ord2 Baso ABS# 0.1 K/ul 03/14/2018 %Hba1C Pgy471 % HbA1c 49701- 6 8.8 % 06/13/2017 %Hba1C Izn433 Gluc Ave 206 mg/dL 06/13/2017 Tsh Ord6 [...] 30.2 pg 06/13/2017 Cbc With Differential Ord2 [place]% 4.9 % 06/13/2017 Cbc With Differential Ord2 [...] 3.21 K/ul 06/13/2017 Cbc With Differential Ord2 [place] ABS# 0.7 K/ul 06/13/2017 Cbc With Differential Ord2 Eos ABS# 0.2 K/ul 06/13/2017 Cbc With Differential Ord2 Baso ABS# 0.1 K/ul 06/13/2017 Lipid Ord30 CHOL 219 mg/dL 06/13/2017 Lipid Ord30 HDL 40.0 mg/dl 06/13/2017 Lipid Ord30 TRIG 200 mg/dL 06/13/2017 Lipid Ord30 LDL 139 mg/dL 06/13/2017 Lipid Ord30 C/HDL 5.5 Ratio 06/13/2017 Comp Metabolic Zqz953 NA 139 mEq/L 06/13/2017 Comp Metabolic Pkf077 K 4.4 mEq/L 06/13/2017 Comp Metabolic Ifp012 CL 100 mEq/L 06/13/2017 Comp Metabolic Avq902 CO2 29.0 mEq/L 06/13/2017 Comp Metabolic Lvp980 ANION GAP 14 06/13/2017 Comp Metabolic Sul893 GLUCOSE 257 mg/dL 06/13/2017 Comp Metabolic Wtj460 Creat 0.5 mg/dL 06/13/2017 Comp Metabolic Urp291 eGFR 145 ml/min/1.73m2 06/13/2017 Comp Metabolic Wtt295 BUN 13 mg/dL 06/13/2017 Comp Metabolic Acd467 B/C Ratio 26.5 Ratio 06/13/2017 Comp Metabolic Vqg966 CALCIUM 9.7 mg/dL 06/13/2017 Comp Metabolic Qyq109 ALK PHOS 98 U/L 06/13/2017 Comp Metabolic Wol492 AST(SGOT) 30 U/L 06/13/2017 Comp Metabolic Ksf633 ALT(SGPT) 43 U/L 06/13/2017 Comp Metabolic Bwy085 BILI T 0.5 mg/dL 06/13/2017 Comp Metabolic Qsr035 ALBUMIN 4.0 g/dL 06/13/2017 Comp Metabolic Ygw592 TPRO 6.4 g/dL 06/13/2017 Comp Metabolic Goa695 GLOB 2.4 g/dL 06/13/2017 Comp Metabolic Fcu574 A/G Ratio 1.7 Ratio 06/13/2017 Comp Metabolic Kar651 Osmo 286 mOsmo 06/13/2017 %Hba1C Jmq612 % HbA1c 77757- 6 11.1 % 2016 %Hba1C Imx326 Gluc Ave 272 mg/dL 2016 C-Reactive Protein Qnt Crqnt CRP 4.7 mg/dl 2016 Comp Metabolic Xew220 NA 136 mEq/L 2016 Comp Metabolic Lae017 K 4.1 mEq/L 2016 Comp Metabolic Jvf154 CL 96 mEq/L 2016 Comp Metabolic Iyc229 CO2 29.0 mEq/L 2016 Comp Metabolic Vua627 ANION GAP 15 2016 Comp Metabolic Uzc024 GLUCOSE 291 mg/dL 2016 Comp Metabolic Ejh524 Creat 0.4 mg/dL 2016 Comp Metabolic Oks097 eGFR 165 ml/min/1.73m2 2016 Comp Metabolic Bcc865 BUN 11 mg/dL 2016 Comp Metabolic Zhg101 B/C Ratio 25.0 Ratio 2016 Comp Metabolic Kir153 CALCIUM 9.4 mg/dL 2016 Comp Metabolic Fns076 ALK PHOS 111 U/L 2016 Comp Metabolic Rec860 AST(SGOT) 46 U/L 2016 Comp Metabolic Ymw616 ALT(SGPT) 60 U/L 2016 Comp Metabolic Diq995 BILI T 0.4 mg/dL 2016 Comp Metabolic Skr194 ALBUMIN 4.0 g/dL 2016 Comp Metabolic Wjt354 TPRO 6.5 g/dL 2016 Comp Metabolic Kxz758 GLOB 2.6 g/dL 2016 Comp Metabolic Rbl273 A/G Ratio 1.5 Ratio 2016 Comp Metabolic Mrf396 Osmo 282 mOsmo 2016 Cbc With Differential [...] 30.5 pg 2016 Cbc With Differential Ord2 [place]% 4.7 % 2016 Cbc With Differential Ord2 [...] 3.53 K/ul 2016 Cbc With Differential Ord2 [place] ABS# 0.7 K/ul 2016 Cbc With Differential Ord2 Eos ABS# 0.2 K/ul 2016 Cbc With Differential Ord2 Baso ABS# 0.1 K/ul 2016 Lipid Ord30 CHOL 228 mg/dL 05/05/2016 Lipid Ord30 HDL 42.0 mg/dl 05/05/2016 Lipid Ord30 TRIG 168 mg/dL 05/05/2016 Lipid Ord30 LDL 152 mg/dL 05/05/2016 Lipid Ord30 C/HDL 5.4 Ratio 05/05/2016 Comp Metabolic Ycd656 NA 135 mEq/L 05/05/2016 Comp Metabolic Tnx144 K 4.1 mEq/L 05/05/2016 Comp Metabolic Zll908 CL 99 mEq/L 05/05/2016 Comp Metabolic Uvy084 CO2 29.0 mEq/L 05/05/2016 Comp Metabolic Ouf901 ANION GAP 11 05/05/2016 Comp Metabolic Ldq569 GLUCOSE 229 mg/dL 05/05/2016 Comp Metabolic Bcl143 Creat 0.5 mg/dL 05/05/2016 Comp Metabolic Gip029 eGFR 150 ml/min/1.73m2 05/05/2016 Comp Metabolic Uug084 BUN 14 mg/dL 05/05/2016 Comp Metabolic Utf713 B/C Ratio 29.2 Ratio 05/05/2016 Comp Metabolic Uzz567 CALCIUM 9.1 mg/dL 05/05/2016 Comp Metabolic Pjj464 ALK PHOS 112 U/L 05/05/2016 Comp Metabolic Cdm776 AST(SGOT) 59 U/L 05/05/2016 Comp Metabolic Xwn698 ALT(SGPT) 63 U/L 05/05/2016 Comp Metabolic Bii941 BILI T 0.7 mg/dL 05/05/2016 Comp Metabolic Qlh073 ALBUMIN 3.8 g/dL 05/05/2016 Comp Metabolic Jig141 TPRO 6.5 g/dL 05/05/2016 Comp Metabolic Xsx159 GLOB 2.7 g/dL 05/05/2016 Comp Metabolic Iit252 A/G Ratio 1.4 Ratio 05/05/2016 Comp Metabolic Sca392 Osmo 278 mOsmo 05/05/2016 Cbc With Differential [...] 30.2 pg 05/05/2016 Cbc With Differential Ord2 [place]% 4.4 % 05/05/2016 Cbc With Differential Ord2 [...] 3.59 K/ul 05/05/2016 Cbc With Differential Ord2 [place] ABS# 0.7 K/ul 05/05/2016 Cbc With Differential Ord2 E[place] ABS# 0.1 K/ul 05/05/2016 Cbc With Differential Ord2 Baso ABS# 0.1 K/ul 05/05/2016 %Hba1C Qyg422 % HbA1c 22637- 6 10.4 % 05/05/2016 %Hba1C Whm061 Gluc Ave 252 mg/dL 05/05/2016 Hcg Beta Subunit Qual Serum 302550 B-HCG QUALITATIVE NEGATIVE 12/27/2015 GC/CHL PRB 8341778 Chl trach DNA Negative 12/25/2015 GC/CHL PRB 0566925 GC PROBE Negative 12/25/2015 Comp. Metabolic Panel (14) 80666 GLUCOSE 136 mg/dL 12/17/2015 Comp. Metabolic Panel (14) 08431 BUN 9 mg/dL 12/17/2015 Comp. Metabolic Panel (14) 32980 CREATININE 0.67 mg/dL 12/17/2015 Comp. Metabolic Panel (14) 66279 SODIUM 136 mmol/L 12/17/2015 Comp. Metabolic Panel (14) 64909 POTASSIUM 4.4 mmol/L 12/17/2015 Comp. Metabolic Panel (14) 30246 CHLORIDE 95 mmol/L 12/17/2015 Comp. Metabolic Panel (14) 23004 CARBON DIOXIDE 28 mmol/L 12/17/2015 Comp. Metabolic Panel (14) 49593 CALCIUM 10.1 mg/dL 12/17/2015 Comp. Metabolic Panel (14) 43043 TOTAL PROTEIN 7.0 g/dL 12/17/2015 Comp. Metabolic Panel (14) 83037 ALBUMIN 4.5 g/dL 12/17/2015 Comp. Metabolic Panel (14) 71141 ALKALINE PHOSPHATASE 87 U/L 12/17/2015 Comp. Metabolic Panel (14) 48727 TOTAL BILIRUBIN 0.5 mg/dL 12/17/2015 Comp. Metabolic Panel (14) 95026 SGOT (AST) 38 U/L 12/17/2015 Comp. Metabolic Panel (14) 93911 SGPT (ALT) 41 U/L 12/17/2015 Comp. Metabolic Panel (14) 07589 eGFR (mL/min/1.73m2) >60 12/17/2015 Comp. Metabolic Panel (14) 16907 12/17/2015 Cbc With Differential/Platelet 87819 WBC 16.67 thou/uL 12/17/2015 Cbc With Differential/Platelet 31782 RBC 5.11 mil/uL 12/17/2015 Cbc With Differential/Platelet 91381 HEMOGLOBIN 14.8 g/dL 12/17/2015 Cbc With Differential/Platelet 62661 HEMATOCRIT 48.7 % 12/17/2015 Cbc With Differential/Platelet 26074 MCV 95.4 fL 12/17/2015 Cbc With Differential/Platelet 09876 MCH 29.0 pg 12/17/2015 Cbc With Differential/Platelet 61495 MCHC 30.4 g/dL 12/17/2015 Cbc With Differential/Platelet 74140 RDW-CV 14.6 % 12/17/2015 Cbc With Differential/Platelet 33049 PLATELET COUNT 471 thou/uL 12/17/2015 Cbc With Differential/Platelet 53668 NEUTROPHIL % 71.3 % 12/17/2015 Cbc With Differential/Platelet 51094 LYMPHOCYTE % 22.4 % 12/17/2015 Cbc With Differential/Platelet 37997 MONOCYTE % 4.8 % 12/17/2015 Cbc With Differential/Platelet 35901 EOS % 0.7 % 12/17/2015 Cbc With Differential/Platelet 17478 BASO % 0.7 % 12/17/2015 Cbc With Differential/Platelet 93798 NEUTROPHIL ABS # 11.89 thou/uL 12/17/2015 Cbc With Differential/Platelet 71430 LYMPH ABS # 3.73 thou/uL 12/17/2015 Cbc With Differential/Platelet 48928 MONOCYTE ABS # 0.80 thou/uL 12/17/2015 Cbc With Differential/Platelet 19754 EOS ABS # 0.12 thou/uL 12/17/2015 Cbc With Differential/Platelet 13889 BASO ABS # 0.12 thou/uL 12/17/2015 Comp. [...] Hgb A1C With Eag Estimation GLYCOHEMOGLOBIN A1C 41345-1 8.1 % 11/13/2015 Hgb A1C With Eag Estimation ESTIMATED AVG GLUCOSE 186 mg/dL 11/13/2015 Comp. Metabolic Panel (14) 16152 GLUCOSE 84 mg/dL 09/11/2015 Comp. Metabolic Panel (14) 70408 BUN 11 mg/dL 09/11/2015 Comp. Metabolic Panel (14) 44909 CREATININE 0.56 mg/dL 09/11/2015 Comp. Metabolic Panel (14) 91462 SODIUM 142 mmol/L 09/11/2015 Comp. Metabolic Panel (14) 60114 POTASSIUM 4.3 mmol/L 09/11/2015 Comp. Metabolic Panel (14) 15178 CHLORIDE 98 mmol/L 09/11/2015 Comp. Metabolic Panel (14) 14461 CARBON DIOXIDE 27 mmol/L 09/11/2015 Comp. Metabolic Panel (14) 12597 CALCIUM 10.1 mg/dL 09/11/2015 Comp. Metabolic Panel (14) 66542 TOTAL PROTEIN 7.2 g/dL 09/11/2015 Comp. Metabolic Panel (14) 02301 ALBUMIN 4.7 g/dL 09/11/2015 Comp. Metabolic Panel (14) 96122 ALKALINE PHOSPHATASE 109 U/L 09/11/2015 Comp. Metabolic Panel (14) 73884 TOTAL BILIRUBIN 0.3 mg/dL 09/11/2015 Comp. Metabolic Panel (14) 95295 SGOT (AST) 53 U/L 09/11/2015 Comp. Metabolic Panel (14) 18975 SGPT (ALT) 53 U/L 09/11/2015 Comp. Metabolic Panel (14) 81173 eGFR (mL/min/1.73m2) >60 09/11/2015 Comp. Metabolic Panel (14) 44270 09/11/2015 Comp. Metabolic Panel (14) 84442 GLUCOSE 183 mg/dL 08/11/2015 Comp. Metabolic Panel (14) 30142 BUN 10 mg/dL 08/11/2015 Comp. Metabolic Panel (14) 71153 CREATININE 0.46 mg/dL 08/11/2015 Comp. Metabolic Panel (14) 71350 SODIUM 138 mmol/L 08/11/2015 Comp. Metabolic Panel (14) 48159 POTASSIUM 4.0 mmol/L 08/11/2015 Comp. Metabolic Panel (14) 60181 CHLORIDE 98 mmol/L 08/11/2015 Comp. Metabolic Panel (14) 44042 CARBON DIOXIDE 29 mmol/L 08/11/2015 Comp. Metabolic Panel (14) 15435 CALCIUM 9.4 mg/dL 08/11/2015 Comp. Metabolic Panel (14) 73522 TOTAL PROTEIN 6.8 g/dL 08/11/2015 Comp. Metabolic Panel (14) 99726 ALBUMIN 4.4 g/dL 08/11/2015 Comp. Metabolic Panel (14) 47768 ALKALINE PHOSPHATASE 118 U/L 08/11/2015 Comp. Metabolic Panel (14) 88841 TOTAL BILIRUBIN <0.3 mg/dL 08/11/2015 Comp. Metabolic Panel (14) 87917 SGOT (AST) 41 U/L 08/11/2015 Comp. Metabolic Panel (14) 51149 SGPT (ALT) 55 U/L 08/11/2015 Comp. Metabolic Panel (14) 59409 eGFR (mL/min/1.73m2) >60 08/11/2015 Comp. Metabolic Panel (14) 76976 08/11/2015 Cbc With Differential/Platelet 35296 WBC 11.76 thou/uL 08/11/2015 Cbc With Differential/Platelet 30992 RBC 4.98 mil/uL 08/11/2015 Cbc With Differential/Platelet 03997 HEMOGLOBIN 14.2 g/dL 08/11/2015 Cbc With Differential/Platelet 57408 HEMATOCRIT 46.7 % 08/11/2015 Cbc With Differential/Platelet 62238 MCV 93.8 fL 08/11/2015 Cbc With Differential/Platelet 53741 MCH 28.5 pg 08/11/2015 Cbc With Differential/Platelet 62180 MCHC 30.4 g/dL 08/11/2015 Cbc With Differential/Platelet 87002 RDW-CV 14.3 % 08/11/2015 Cbc With Differential/Platelet 17310 PLATELET COUNT 382 thou/uL 08/11/2015 Cbc With Differential/Platelet 03151 NEUTROPHIL % 67.3 % 08/11/2015 Cbc With Differential/Platelet 89681 LYMPHOCYTE % 24.0 % 08/11/2015 Cbc With Differential/Platelet 75180 MONOCYTE % 6.0 % 08/11/2015 Cbc With Differential/Platelet 18279 EOS % 1.6 % 08/11/2015 Cbc With Differential/Platelet 06182 BASO % 1.0 % 08/11/2015 Cbc With Differential/Platelet 69906 NEUTROPHIL ABS # 7.91 thou/uL 08/11/2015 Cbc With Differential/Platelet 76384 LYMPH ABS # 2.82 thou/uL 08/11/2015 Cbc With Differential/Platelet 66445 MONOCYTE ABS # 0.71 thou/uL 08/11/2015 Cbc With Differential/Platelet 38395 EOS ABS # 0.19 thou/uL 08/11/2015 Cbc With Differential/Platelet 04110 BASO ABS # 0.12 thou/uL 08/11/2015 Tsh 257855 TSH 3.220 uIU/mL 08/11/2015 Lipid Panel 37471 CHOLESTEROL 193 mg/dL 08/11/2015 Lipid Panel 33604 TRIGLYCERIDES 192 mg/dL 08/11/2015 Lipid Panel 00154 HDL 38 mg/dL 08/11/2015 Lipid Panel 18108 CHOLESTEROL/HDL 5.08 08/11/2015 Lipid Panel 38637 LDL (CALCULATED) 117 mg/dL 08/11/2015 Lipid Panel 28209 LDL/HDL 3.08 08/11/2015 Lipid Panel 91914 PHENOTYPE TYPE IV BORDERLINE 08/11/2015 Review of [...] Procedure Codes Date THER/PROPH/DIAG INJ SC/IM CPT-4: 92696 06/05/2018 ROCEPHIN, PER 250 MG CPT- 4: J0696 06/05/2018 REMOVAL OF SKIN TAGS <W/15 CPT-4: 63529 03/14/2018 FLU VAC NO PRSV 4 PRECIOUS 3 YRS+ CPT-4: 67986 03/14/2018 IMMUNIZATION ADMIN CPT- 4: 45959 03/14/2018 TRIAMCINOLONE ACET INJ NOS CPT-4: J3301 02/19/2018 THER/PROPH/DIAG INJ SC/IM CPT-4: 98276 02/19/2018 THER/PROPH/DIAG INJ SC/IM CPT-4: 00937 09/05/2017 TRIAMCINOLONE ACET INJ NOS CPT-4: J3301 09/05/2017 IMMUNIZATION ADMIN CPT- 4: 71314 04/24/2017 FLU VAC NO PRSV 4 PRECIOUS 3 YRS+ CPT-4: 85053 04/24/2017 DRAIN/INJECT JOINT/BURSA CPT-4: 70388 04/24/2017 TRIAMCINOLONE ACET INJ NOS CPT-4: J3301 04/24/2017 THER/PROPH/DIAG INJ SC/IM CPT-4: 66318 01/09/2017 TRIAMCINOLONE ACET INJ NOS CPT-4: J3301 01/09/2017 THER/PROPH/DIAG INJ SC/IM CPT-4: 65902 04/13/2016 Pneumococcal Polysaccharide Vaccine, 23-Valent, Ad CPT-4: 63255 04/13/2016 INJECT TRIGGER POINTS 3/> CPT-4: 11843 04/06/2016 TRIAMCINOLONE ACET INJ NOS CPT-4: J3301 04/06/2016 IMMUNIZATION ADMIN CPT- 4: 24569 03/30/2016 IIV4 FLU VACC NO PRESERV ID SNOMED CT: [id number] CPT-4: 45515 03/30/2016 TRIAMCINOLONE ACET INJ NOS CPT-4: J3301 02/28/2016 THER/PROPH/DIAG INJ SC/IM CPT-4: 94126 02/28/2016 TRIAMCINOLONE ACET INJ NOS CPT-4: J3301 08/20/2015 Vital Signs Date Vital 08/06/2018 Blood Pressure 1: 130/80 Code: 8480-6 BMI: 42.8 Code: 00879-7 Heart Rate 1: 110 bpm Height: 4'11" [...] Weight: 214 lbs 06/17/2018 Blood Pressure 1: 128 Code: 8480-6 Heart Rate 1: 112 bpm Height: 4'11" SpO2: 97% Temperature: 36.9 (C) / 98.4 (F) Weight: 06/05/2018 Blood Pressure 1: 127 Code: 8480-6 BMI: 42.4 Code: 29318-0 Heart Rate 1: 78 bpm Height: 4'11" SpO2: 97% Weight: 210 lbs 03/26/2018 Blood Pressure 1: 128 Code: 8480-6 BMI: 43.0 Code: 75773-2 Heart Rate 1: 120 bpm Height: 4'11" SpO2: 97% Weight: 213 lbs 03/14/2018 Blood Pressure 1: 120 Code: 8480-6 BMI: 43.0 Code: 60776-0 Heart Rate 1: 114 bpm Height: 4'11" SpO2: 95% Weight: 213 lbs 03/07/2018 Blood Pressure 1: 132 Code: 8480-6 BMI: 43.8 Code: 74457-5 Heart Rate 1: 123 bpm Height: 4'11" [...] 1: 134/86 Code: 8480-6 BMI: 45.4 Code: 51806-9 Heart Rate 1: 108 bpm Height: 4'11" SpO2: 95% Weight: 225 lbs 06/07/2017 Blood Pressure 1: 13274 Code: 8480-6 Heart Rate 1: 99 bpm Height: 4'11" SpO2: 95% 04/24/2017 Blood Pressure 1: 132/8096 Code: 8480-6 BMI: 47.7 Code: 51600-7 Heart Rate 1: 96 bpm Height: 4'11" Weight: 236 lbs 01/09/2017 Blood Pressure 1: 122 Code: 8480-6 BMI: 46.0 Code: 30541-3 Heart Rate 1: 114 bpm Height: 4'11" SpO2: 98% Temperature: 37.1 (C) / 98.7 (F) Weight: 228 lbs 10/30/2016 Blood Pressure 1: 124 Code: 8480-6 BMI: 49.1 Code: 12526-1 Heart Rate 1: 90 bpm Height: 4'11" SpO2: 97% Weight: 243 lbs 10/09/2016 Blood Pressure 1: 124 Code: 8480-6 BMI: 49.3 Code: 68543-2 Heart Rate 1: 91 bpm Height: 4'11" SpO2: 98% Weight: 244 lbs 09/12/2016 Blood Pressure 1: 128 Code: 8480-6 BMI: 49.1 Code: 83493-5 Heart Rate 1: 94 bpm Height: 4'11" SpO2: 95% Weight: 243 lbs 09/05/2016 Blood Pressure 1: 118 Code: 8480-6 BMI: 49.1 Code: 44850-2 Heart Rate 1: 100 bpm Height: 4'11" SpO2: 97% Weight: 243 lbs 06/16/2016 Blood Pressure 1: 120/62 Code: 8480-6 BMI: 49.1 Code: 59176-5 Heart Rate 1: 100 bpm Height: 4'11" SpO2: 96% Temperature: 36.7 (C) / 98.0 (F) Weight: 243 lbs 06/13/2016 Blood Pressure 1: 120/70 Code: 8480-6 Heart Rate 1: 117 bpm SpO2: 97% 05/19/2016 Blood Pressure 1: 130/64 Code: 8480-6 BMI: 49.1 Code: 45507-7 Heart Rate 1: 101 bpm Height: 4'11" SpO2: 96% Weight: 243 lbs 05/08/2016 Blood Pressure 1: 128 Code: 8480-6 Heart Rate 1: 119 bpm Height: SpO2: 97% Weight: 05/05/2016 Blood Pressure 1: 124 Code: 8480-6 BMI: 49.1 Code: 29426-2 Heart Rate 1: 75 bpm Height: 4'11" SpO2: 99% Weight: 243 lbs 04/10/2016 Blood Pressure 1: 140/80 Code: 8480-6 BMI: 49.7 Code: 00600-5 Heart Rate 1: 88 bpm Height: 4'11" SpO2: 95% Weight: 246 lbs 04/06/2016 Blood Pressure 1: 134/82 Code: 8480-6 BMI: 75.1 Code: 46398-3 Heart Rate 1: 72 bpm Height: 4' SpO2: 96% Weight: 246 lbs 03/08/2016 Blood Pressure 1: 126/72 Code: 8480-6 BMI: 49.7 Code: 47207-4 Heart Rate 1: 89 bpm Height: 4'11" SpO2: 97% Weight: 246 lbs 02/28/2016 Blood Pressure 1: 124/68 Code: 8480-6 BMI: 49.7 Code: 43986-1 Heart Rate 1: 89 bpm Height: 4'11" SpO2: 96% Weight: 246 lbs 01/18/2016 Blood Pressure 1: 142/78 Code: 8480-6 BMI: 48.9 Code: 69161-0 Heart Rate 1: 97 bpm Height: 4'11" SpO2: 97% Weight: 242 lbs 12/23/2015 Blood Pressure 1: 124/74 Code: 8480-6 BMI: 48.9 Code: 64574-9 Heart Rate 1: 106 bpm Height: 4'11" SpO2: 96% Weight: 242 lbs 12/16/2015 Blood Pressure 1: 116/82 Code: 8480-6 BMI: 48.3 Code: 17548-9 Heart Rate 1: 111 bpm Height: 4'11" SpO2: 97% Weight: 239 lbs 11/11/2015 Blood Pressure 1: 130/80 Code: 8480-6 BMI: 49.7 Code: 37426-3 Heart Rate 1: 105 bpm Height: 4'11" SpO2: 96% Weight: 246 lbs 10/27/2015 Blood Pressure 1: 122/70 Code: 8480-6 BMI: 49.5 Code: 27149-1 Heart Rate 1: 107 bpm Height: 4'11" SpO2: 96% Weight: 245 lbs 10/13/2015 Blood Pressure 1: 140/82 Code: 8480-6 BMI: 50.9 Code: 57314-5 Heart Rate 1: 111 bpm Height: 4'11" SpO2: 96% Weight: 252 lbs 10/05/2015 Blood Pressure 1: 118/70 Code: 8480-6 BMI: 51.1 Code: 63064-8 Heart Rate 1: 120 bpm Height: 4'11" SpO2: 97% Weight: 253 lbs 09/01/2015 Blood Pressure 1: 132/82 Code: 8480-6 BMI: 50.1 Code: 97258-8 Heart Rate 1: 110 bpm Height: 4'11" SpO2: 96% Weight: 248 lbs 08/20/2015 Blood Pressure 1: 132/78 Code: 8480-6 BMI: 51.7 Code: 37412-5 Heart Rate 1: 100 bpm Height: 4'11" Weight: 256 lbs 08/03/2015 Blood Pressure 1: 148/92 Code: 8480-6 BMI: 52.1 Code: 80214-5 Heart Rate 1: 100 bpm Height: 4'11" [...] Essential (primary) hypertension[ICD10: I10] Gloria Hess MD, [facility] CPT-4: 94930 08/06/2018 [id number] EST. PATIENT, LEVEL III Diagnosis: Hidradenitis suppurativa[ICD10: L73.2] Gloria Hess MD, [facility] CPT- 4: 40487 07/22/2018 [id number] EST. PATIENT, LEVEL III Diagnosis: Hidradenitis suppurativa[ICD10: L73.2] Diagnosis: Encounter for other specified surgical aftercare[ICD10: Z48.89] Gloria Hess MD, [facility] CPT-4: 97921 07/18/2018 [id number] EST. PATIENT, LEVEL III Diagnosis: Cellulitis of right axilla[ICD10: L03.111] Diagnosis: Diarrhea, unspecified[ICD10: R19.7] Gloria Hess MD, [facility] CPT- 4: 05918 06/28/2018 [id number]) 01028 EST. PATIENT, LEVEL II Diagnosis: Cellulitis of right axilla[ICD10: L03.111] Tamy Hess MD, [facility] CPT-4: 89894 06/17/2018 88524 EST. PATIENT, LEVEL III Diagnosis: Cellulitis of right axilla[ICD10: L03.111] Diagnosis: Type 2 diabetes mellitus with hyperglycemia[ICD10: E11.65] Gloria Hess MD, [facility] CPT-4: 03801 06/05/2018 [id number] EST. PATIENT, LEVEL III Diagnosis: Gastro-esophageal reflux disease without esophagitis[ICD10: K21.9] Diagnosis: Other allergic rhinitis[ICD10: J30.89] Diagnosis: Cough[ICD10: R05] Gloria Hess MD, [facility] CPT-4: 23524 03/26/2018 [id number]) 06458 EST. PATIENT, LEVEL III Diagnosis: Cough[ICD10: R05] Gloria Hess MD, [facility] CPT-4: 37423 03/14/2018 [id number] EST. PATIENT, LEVEL IV Diagnosis: Acute laryngopharyngitis[ICD10: J06.0] Diagnosis: Other allergic rhinitis[ICD10: J30.89] Diagnosis: Cough[ICD10: R05] Gloria Hess MD, [facility] CPT-4: 78679 03/07/2018 [id number] EST. PATIENT, LEVEL IV Diagnosis: Acute bronchitis due to other specified organisms[ICD10: J20.8] Diagnosis: Acute laryngopharyngitis[ICD10: J06.0] Gloria Hess MD, [facility] CPT- 4: 83301 02/19/2018 [id number] EST. PATIENT, LEVEL IV Diagnosis: Candidiasis of vulva and vagina[ICD10: B37.3] Diagnosis: Rash and other nonspecific skin eruption[ICD10: R21] Gloria Hess MD, [facility] CPT-4: 65524 01/08/2018 [id number] EST. PATIENT, LEVEL III Diagnosis: Sacrococcygeal disorders, not elsewhere classified[ICD10: M53.3] Diagnosis: Low back pain[ICD10: M54.5] Gloria Hess MD, [facility] CPT-4: 10048 11/23/2017 01605 EST. PATIENT, LEVEL III Diagnosis: Acute laryngopharyngitis[ICD10: J06.0] Diagnosis: Other allergic rhinitis[ICD10: J30.89] Diagnosis: Acute bronchitis due to other specified organisms[ICD10: J20.8] Gloria Hess MD, [facility] CPT-4: 69152 09/05/2017 21476 EST. PATIENT, LEVEL III Diagnosis: Pain in left foot[ICD10: M79.672] Diagnosis: Rash and other nonspecific skin eruption[ICD10: R21] Diagnosis: Candidiasis of vulva and vagina[ICD10: B37.3] Diagnosis: Localized edema[ICD10: R60.0] Diagnosis: Dyspnea, unspecified[ICD10: R06.00] Gloria Hess MD, [facility] CPT- 4: 38202 06/07/2017 20046 EST. PATIENT, LEVEL III Diagnosis: Low back pain[ICD10: M54.5] Diagnosis: Sacroiliitis, not elsewhere classified[ICD10: M46.1] Diagnosis: Pain in left foot[ICD10: M79.672] Diagnosis: VACCIN FOR INFLUENZA[ICD10: Z23] Gloria Hess MD, [facility] CPT-4: 10190 04/24/2017 19218 EST. PATIENT, LEVEL III Diagnosis: Acute suppurative otitis media without spontaneous rupture of ear drum, right ear[ICD10: H66.001] Diagnosis: Other allergic rhinitis[ICD10: J30.89] Gloria Hess MD, [facility] CPT- 4: 79839 01/09/2017 23478 EST. PATIENT, LEVEL IV Diagnosis: Candidiasis of vulva and vagina[ICD10: B37.3] Diagnosis: Type 2 diabetes mellitus with hyperglycemia[ICD10: E11.65] Gloria Hess MD, [facility] CPT-4: 56117 10/30/2016 93794 EST. PATIENT, LEVEL III Diagnosis: Candidiasis of vulva and vagina[ICD10: B37.3] Diagnosis: Type 2 diabetes mellitus with hyperglycemia[ICD10: E11.65] Gloria Hess MD, [facility] CPT-4: 13898 10/09/2016 29516 EST. PATIENT, LEVEL IV Diagnosis: Umbilical hernia without obstruction or gangrene[ICD10: K42.9] Gloria Hess MD, [facility] CPT-4: 49198 09/12/2016 28427 EST. PATIENT, LEVEL III Diagnosis: Epigastric pain[ICD10: R10.13] Diagnosis: Candidiasis of vulva and vagina[ICD10: B37.3] Diagnosis: Type 2 diabetes mellitus with hyperglycemia[ICD10: E11.65] Gloria Hess MD, [facility] CPT-4: 73522 09/05/2016 17561 EST. PATIENT, LEVEL III Diagnosis: Acute laryngopharyngitis[ICD10: J06.0] Diagnosis: Other allergic rhinitis[ICD10: J30.89] Gloria Hess MD, [facility] CPT- 4: 68289 06/16/2016 79464 EST. PATIENT, LEVEL III Diagnosis: Type 2 diabetes mellitus with hyperglycemia[ICD10: E11.65] Diagnosis: Other obesity due to excess calories[ICD10: E66.09] Gloria Hess MD, [facility] CPT-4: 96300 06/13/2016 94355 EST. PATIENT, LEVEL III Diagnosis: Type 2 diabetes mellitus with hyperglycemia[ICD10: E11.65] Diagnosis: Other obesity due to excess calories[ICD10: E66.09] Gloria Hess MD, [facility] CPT-4: 52996 05/19/2016 62676 EST. PATIENT, LEVEL III Diagnosis: Type 2 diabetes mellitus with hyperglycemia[ICD10: E11.65] Diagnosis: Other obesity due to excess calories[ICD10: E66.09] Gloria Hess MD, [facility] CPT-4: 29669 05/08/2016 71218 EST. PATIENT, LEVEL III Diagnosis: Type 2 diabetes mellitus without complications[ICD10: E11.9] Gloria Hess MD, [facility] CPT-4: 49415 05/05/2016 60844 EST. PATIENT, LEVEL III Diagnosis: Pain in right shoulder[ICD10: M25.511] Gloria Hess MD, [facility] CPT- 4: 92416 04/10/2016 48792 EST. PATIENT, LEVEL III Diagnosis: Pain in right shoulder[ICD10: M25.511] Diagnosis: Other muscle spasm[ICD10: M62.838] Diagnosis: Type 2 diabetes mellitus without complications[ICD10: E11.9] Gloria Hess MD, [facility] CPT-4: 08104 04/06/2016 63101 EST. PATIENT, LEVEL IV Diagnosis: Acute bronchitis due to other specified organisms[ICD10: J20.8] Diagnosis: Other acute sinusitis[ICD10: J01.80] Diagnosis: Acne vulgaris[ICD10: L70.0] Diagnosis: Morbid (severe) obesity due to excess calories[ICD10: E66.01] Gloria Hess MD, [facility] CPT-4: 24859 03/08/2016 57758 EST. PATIENT, LEVEL IV Diagnosis: Other acute sinusitis[ICD10: J01.80] Diagnosis: Localized enlarged lymph nodes[ICD10: R59.0] Gloria Hess MD, [facility] CPT-4: 09283 02/28/2016 29565 EST. PATIENT, LEVEL III Diagnosis: Type 2 diabetes mellitus without complications[ICD10: E11.9] Gloria Hess MD, [facility] CPT-4: 31002 01/18/2016 ([id number]) PREV VISIT EST AGE 40-64 Diagnosis: Encounter for gynecological examination (general) (routine) without abnormal findings[ICD10: Z01.419] Diagnosis: Excessive and frequent menstruation with irregular cycle[ICD10: N92.1] Gloria Hess MD, [facility] CPT-4: 63093 12/23/2015 65432 EST. PATIENT, LEVEL III Diagnosis: Type 2 diabetes mellitus without complications[ICD10: E11.9] Gloria Hess MD, [facility] CPT-4: 62941 12/16/2015 17828 EST. PATIENT, LEVEL III Diagnosis: Type 2 diabetes mellitus without complications[ICD10: E11.9] Diagnosis: Other obesity due to excess calories[ICD10: E66.09] Gloria Hess MD, [facility] CPT-4: 10302 11/11/2015 63182 EST. PATIENT, LEVEL III Diagnosis: Type 2 diabetes mellitus without complications[ICD10: E11.9] Diagnosis: Other obesity due to excess calories[ICD10: E66.09] Gloria Hess MD, [facility] CPT-4: 50159 10/27/2015 71041 EST. PATIENT, LEVEL III Diagnosis: Type 2 diabetes mellitus without complications[ICD10: E11.9] Diagnosis: Other obesity due to excess calories[ICD10: E66.09] Diagnosis: Other insomnia[ICD10: G47.09] Gloria Hess MD, [facility] CPT-4: 24591 10/13/2015 16503 EST. PATIENT, LEVEL IV Diagnosis: Acute recurrent maxillary sinusitis[ICD10: J01.01] Diagnosis: Allergic rhinitis due to pollen[ICD10: J30.1] Diagnosis: Other obesity due to excess calories[ICD10: E66.09] Gloria Hess MD, [facility] CPT-4: 25026 10/05/2015 69973 EST. PATIENT, LEVEL IV Diagnosis: Polycystic ovarian syndrome[ICD10: E28.2] Diagnosis: Other skin changes[ICD10: R23.8] Diagnosis: Other abnormal glucose[ICD10: R73.09] Gloria Hess MD, [facility] CPT- 4: 87556 09/01/2015 42238 EST. PATIENT, LEVEL IV Diagnosis: Acute recurrent maxillary sinusitis[ICD10: J01.01] Diagnosis: Morbid (severe) obesity due to excess calories[ICD10: E66.01] Diagnosis: Essential (primary) hypertension[ICD10: I10] Diagnosis: Allergic rhinitis due to pollen[ICD10: J30.1] Gloria Hess MD, [facility] CPT-4: 30314 08/20/2015 (53762) OFFICE VISIT, NEW - LEVEL 4 Diagnosis: Essential (primary) hypertension[ICD10: I10] Diagnosis: Obstructive sleep apnea (adult) (pediatric)[ICD10: G47.33] Diagnosis: Other insomnia[ICD10: G47.09] Diagnosis: Snoring[ICD10: R06.83] Diagnosis: Morbid (severe) obesity due to excess calories[ICD10: E66.01] Gloria Hess MD, [facility] CPT-4: 30722 08/03/2015 Plan of Care Planned Activity Notes [...] acute concerns. 08/06/2018 Appointment: Gloria Scott WPtel: [address] [place], [place] [phone] (30 min) [facility] 08/06/2018 Patient Education: Patient Medication Summary Completed 08/06/2018 Visit Plan: incision - healing well - Wound Instructions - Pt was instructed to keep the wound clean, wash with antibacterial soap, use triple antibiotic ointment, call if redness, pustular drainage, or any other a cute concerns. Hidradenitis suppurativa - will refer to dermatology. 07/22/2018 Appointment: Gloria Scott WPtel: [phone] [facility] (30 min) Complex 07/22/2018 Patient Education: Patient Medication Summary Completed 07/22/2018 Visit Plan: Hidradenitis suppurativa - post incision - wound healing well - continue to monitor Wound Instructions - Pt was instructed to keep the wound clean, wash with antibacterial soap, use triple antibiotic oi ntment, call if redness, pustular drainage, or any other acute concerns. 07/18/2018 Appointment: Gloria Scott WPtel: [phone] [facility] (30 min) Complex 07/18/2018 Patient Education: Patient Medication Summary Completed 07/18/2018 Referral: Roni Roberts pt will be notified by there office to schedule Initiated 07/03/2018 Care Plan: Referral Order SNOMED-CT : [id number] Pending 07/01/2018 Visit Plan: Abscess/Cellulitis - The [...] stomach pain. 06/28/2018 Appointment: Gloria Scott WPtel: [phone] [facility] (30 min) Complex 06/28/2018 Patient Education: Patient Medication Summary Completed 06/28/2018 Visit Plan: Cellulitis-right abomjj-ewlzganc-yog bactroban ointment until healed completely-call with any concerns 06/17/2018 App[facility]ment: [phone] [phone] [place] (15 min) Moderate 06/17/2018 Patient Education: [...] warmth, discharge. 06/05/2018 Appointment: Gloria Scott WPtel: [address] [place], [place] [phone] [place] (30 min) Complex 06/05/2018 Patient Education: Patient Medication Summary Completed 06/05/2018 Patient Education: Diabetes Completed 06/05/2018 Referral: Jesus Darby [facility]66[facility] Referral Initiated 04/19/2018 Care Plan: Referral Order SNOMED-CT : [id number] Pending 03/27/2018 Visit Plan: Esophageal Reflux - [...] allergy spray. 03/26/2018 Appointment: Gloria Scott WPtel: [facility] [place] (15 min) Moderate 03/26/2018 Patient Education: Patient Medication Summary Completed 03/26/2018 Appointment: Gloria Scott WPtel: [address] [place], [place] [phone] [place] (15 min) Moderate 03/25/2018 Visit Plan: [...] and bandaids. 03/14/2018 Appointment: Gloria Scott WPtel: [address] [place], [place] [phone] (15 min) Moderate 03/14/2018 Patient Education: Patient [...] improve 03/07/2018 Appointment: Gloria Scott WPtel: [phone] [facility]66[facility] (15 min) Moderate [...] worsen. 02/19/2018 Appointment: Gloria Scott WPtel: [phone] [facility] (15 min) Moderate 02/19/2018 Patient Education: [...] discharge. 01/08/2018 Appointment: Gloria Scott WPtel: [phone] [facility] [place] (30 min) Complex 01/08/2018 Patient Education: Patient [...] worsen. 09/05/2017 Appointment: Gloria Scott WPtel: [phone] (15 min) Moderate 09/05/2017 Patient Education: [...] RX 06/07/2017 Appointment: Gloria Scott WPtel: [phone] [place] [phone] (15 min) Moderate 06/07/2017 Patient Education: [...] of injection. 04/24/2017 Appointment: Gloria Scott WPtel: [address] [place], [place] [phone] (30 min) Complex 04/24/2017 Patient Education: Patient Medication Summary Completed 04/24/2017 Appointment: Gloria Scott WPtel: [address] [place], [place] [phone] (30 min) Complex 03/09/2017 Appointment: Gloria Scott WPtel: [address] [place], [place] [phone] (30 min) Complex 02/13/2017 Visit Plan: Otitis [...] allergy spray. 01/09/2017 Appointment: Gloria Scott WPtel: [facility]9 [facility] [place] (10 min) Simple 01/09/2017 Patient Education: Patient Medication Summary Completed 01/09/2017 Patient Education: Obesity Completed 01/09/2017 Visit Plan: Vaginal candidiasis - will send RX - pt is to notify clinic if symptoms do not improve, if they worsen, or with any questions or concerns. Diabetes Mellitus - Uncontrolled - Will refer to certified medical coding specialist - I have recommended for the patient [...] Mellitus - Uncontrolled - Will refer to certified medical coding specialist - I have recommended for the patient [...] glucose control. 10/09/2016 Appointment: Gloria Scott WPtel: [facility] ([facility] Complex 10/09/2016 Patient Education: Patient Medication Summary Completed 10/09/2016 Patient Education: Obesity Completed 10/09/2016 Referral: Roni Roberts Referral Completed 09/18/2016 Care Plan: CT ABD & PELV W/CONTRAST LOINC : 87878-6 Pending 09/13/2016 Care Plan: Referral Order SNOMED-CT : [id number] Pending 09/13/2016 Visit Plan: Ongoing abdominal pain/hernia - will send RX - will refer - pt is to notify clinic if symptoms do not improve, if they worsen, or with any questions or concerns. 09/12/2016 Appointment: [facility] [phone] [facility] [place] (30 min) Complex 09/12/2016 Patient Education: Patient Medication Summary Completed 09/12/2016 Patient Education: Obesity Completed 09/12/2016 Care Plan: Referral Order SNOMED-CT : [id number] Pending 09/12/2016 Visit Plan: Ongoing abdominal/epigastric pain [...] glucose control. 09/05/2016 Appointment: Gloria Scott WPtel: [facility] ([facility] min) Complex 09/05/2016 Patient Education: Patient [...] spray. 06/16/2016 Appointment: [phone] [facility] [place] (10 min) Simple 06/16/2016 Patient Education: [...] check. 06/13/2016 Appointment: Gloria [facility]Ptel: [phone] [facility] [place] (30 min) Complex 06/13/2016 Patient Education: Patient Medication Summary Completed 06/13/2016 Patient Education: Obesity Completed 06/13/2016 Appointment: [facility]el[facility] [phone] [facility] [place] (30 min) Complex 06/08/2016 Visit Plan: [...] check. 05/19/2016 Appointment: Tamy Lugo [facility]el[facility] [phone] [phone] [place] (30 min) Complex 05/19/2016 Patient Education: [...] weight check. 05/08/2016 Appointment: Gloria Scott WPtel: [phone] [facility] (15 min) Moderate 05/08/2016 Patient Education: [...] the morning. 05/05/2016 Appointment: Tamy Lugo WPtel: [phone] [phone] [place] (15 min) Moderate 05/05/2016 Patient Education: Patient Medication Summary Completed 05/05/2016 Patient Education: Obesity Completed 05/05/2016 Care Plan: Comp Metabolic Pending 05/05/2016 Appointment: [facility]oc[facility]el[phone] [facility] 04/17/2016 Appointment: Injection 04/13/2016 Patient Education: Patient Medication Summary Completed 04/13/2016 Visit Plan: Right shoulder pain - will refer to PT - The pt is to use prn antiinflammatories to manage acute pain. The patient is to call the office if the pain is worsening or does not improve. 04/10/2016 Appointment: Gloria Scott WPtel: [phone] [facility] (30 min) Complex 04/10/2016 Patient Education: Patient [...] control. 04/06/2016 Appointment: [facility]el[phone] [facility] (15 min) Moderate 04/06/2016 Patient Education: [...] [place] 02/28/2016 Appointment: Gloria [facility]Ptel: [phone] [facility] (30 min) Complex 02/28/2016 Patient Education: Patient Medication Summary Completed 02/28/2016 Patient Education: Obesity Completed 02/28/2016 Appointment: Gloria Scott [facility]Ptel: [phone] [facility] [place] (15 min) Moderate 01/31/2016 Visit Plan: [...] prn. 12/23/2015 Appointment: Gloria Scott [facility]Ptel: [phone] [facility] [facility] 12/23/2015 Patient Education: Patient [...] ADD TO BLOOD IN THE LAB. [facility] : 11985-7 Pending 08/13/2015 Visit Plan: Hypertension - uncontrolled [...] Roni Roberts Referral Completed [facility] [place] Referral Initiated Referral: Roni Roberts [...] is to call for acute concerns. . Ongoing abdominal/epigastric pain - [...] noted - will order US . Cellulitis-right oekdvx-awqjlsjm-cbf bactroban ointment until healed completely-call with any concerns . Ongoing abdominal pain/hernia - will send RX - will refer - pt is to notify clinic if symptoms do not improve, if they worsen, or with any questions or concerns. MRI - left foot - ongoing history [...] Mellitus - Uncontrolled - Will refer to certified medical coding specialist - I have recommended for the patient [...] in pain, worsening redness, warmth, discharge. . Right shoulder pain - will refer [...] in one month for weight check. . Low back pain - the patient [...] loss. Areas dressed wtih neosporin and bandaids. Pt has been advised to increase the [...] in one month for weight check. . Skin tag removal - irritated skin [...] drainage, or any other acute concerns. . Vaginal candidiasis - will send RX - pt is to notify clinic if symptoms do not improve, if they worsen, or with any questions or concerns. Diabetes Mellitus - Uncontrolled - Will refer to certified medical coding specialist - I have recommended for the patient [...] allow for greater blood glucose control. . Esophageal Reflux - the patient has [...]
--- OUTSIDE RECORDS SUMMARY | 2018-12-17 03:27 | XMS REPORT | CCD ---
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 Role Phone PP Unavailable CCM Unavailable Summary Purpose Interface Exchange Insurance Providers Payer name Policy type / Coverage type Covered constitution party ID Effective Begin Date Effective End Date [facility] Commercial Insurance [id number] Unknown Unknown Family history Father Diagnosis Age At Onset Hypertension Unknown Arthritis Unknown Mother Diagnosis Age At Onset Arthritis Unknown Hyperlipidemia Unknown Daughter Diagnosis Age At Onset Asthma Unknown Social History Social History Element Codes Description Effective Dates Marital status Unknown Darin 08/03/2015 Number of children Unknown 1 08/03/[address]: 7183746 Quit less than 5 years ago 08/03/2015 [...] Date Active alprazolam 0.25 mg tablet RxNorm: 620048 1 Tablet(s) PO daily as needed anxiety 08/08/2018 No Stop Date Active ibuprofen 800 mg tablet RxNorm: 732008 1 Tablet(s) PO TID as needed for pain 08/06/2018 08/15/2018 Active Zithromax Z-Rashid 250 mg tablet RxNorm: 166825 1 Tablet(s) PO UD 08/06/2018 No Stop Date Active metoprolol succinate ER 100 mg tablet,extended release 24 hr RxNorm: 337068 Tablet(s) TAKE ONE TABLET BY MOUTH ONCE DAILY 08/06/2018 No Stop Date Active metoprolol succinate ER 50 mg tablet,extended release 24 hr RxNorm: 688493 1 Tablet(s) PO daily 08/06/2018 09/04/2018 Active Lyrica 100 mg capsule RxNorm: 329144 1 Capsule(s) PO TID 07/25/2018 10/16/2018 Active Lyrica 100 mg capsule RxNorm: 279469 1 Capsule(s) PO TID 07/25/2018 07/24/2018 Inactive mupirocin 2 % topical ointment RxNorm: 697084 1 Application TOP daily 07/22/2018 07/28/2018 Inactive ibuprofen 800 mg tablet RxNorm: 744316 1 Tablet(s) PO TID as needed for pain 07/22/2018 07/31/2018 Inactive hydrocodone 7.5 mg-acetaminophen 325 mg tablet RxNorm: 196651 1 Tablet(s) PO Q4H as needed 07/18/2018 08/16/2018 Active promethazine 25 mg tablet RxNorm: 494815 TABLET(S) TAKE ONE TABLET BY MOUTH EVERY 6 TO 8 HOURS NEEDED 07/05/2018 No Stop Date Active hyoscyamine 0.125 mg sublingual tablet RxNorm: 0108368 1 Tablet(s) SL TID as needed diarrhea 06/28/2018 07/07/2018 Inactive mupirocin 2 % topical ointment RxNorm: 047565 1 Application TOP BID 06/17/2018 06/26/2018 Inactive mupirocin 2 % topical ointment RxNorm: 007382 1 Application TOP BID 06/05/2018 No Stop Date Active Keflex 500 mg capsule RxNorm: 220017 1 Capsule(s) PO TID 06/05/2018 06/11/2018 Inactive ceftriaxone 500 mg solution for injection RxNorm: 3753080 Inj 06/05/2018 06/05/2018 Inactive Diflucan 150 mg tablet RxNorm: 214407 1 Tablet(s) PO daily 06/05/2018 07/02/2018 Inactive Protonix 40 mg tablet,delayed release RxNorm: 173137 1 Tablet(s) PO BID x 1 week then daily 03/26/2018 No Stop Date Active Phenergan with Codeine Syrup RxNorm: 5-10 ML PO QID as needed cough 03/19/2018 08/07/2018 Inactive promethazine 25 mg tablet RxNorm: 458275 Tablet(s) TAKE ONE TABLET BY MOUTH EVERY 6 TO 8 HOURS NEEDED 03/15/2018 07/04/2018 Inactive Singulair 10 mg tablet RxNorm: 952302 1 Tablet(s) PO daily 03/14/2018 04/12/2018 Inactive metoprolol succinate ER 100 mg tablet,extended release 24 hr RxNorm: 536922 1 Tablet(s) PO daily 03/07/2018 04/05/2018 Inactive Zithromax Z-Rashid 250 mg tablet RxNorm: 725951 1 Tablet(s) PO UD 03/07/2018 03/07/2018 Inactive prednisone 20 mg tablet RxNorm: 123901 2 Tablet(s) PO daily 03/07/2018 03/11/2018 Inactive albuterol sulfate 2.5 mg/3 mL (0.083 %) solution for nebulization RxNorm: 514273 3 Milliliter(s) INH Q4-6H as needed dyspnea 02/19/2018 No Stop Date Active Diflucan 150 mg tablet RxNorm: 101205 Tablet(s) TAKE ONE TABLET BY MOUTH ONCE DAILY FOR 7 DAYS THEN TAKE ONE TABLET BY MOUTH ONCE A WEEK 02/19/2018 06/04/2018 Inactive Levaquin 500 mg tablet RxNorm: 938475 1 Tablet(s) PO daily 02/19/2018 02/25/2018 Inactive prednisone 20 mg tablet RxNorm: 383598 2 Tablet(s) PO daily 02/19/2018 02/23/2018 Inactive Kenalog 40 mg/mL suspension for injection RxNorm: 1101618 15. Milliliter(s) Inj 02/19/2018 02/19/2018 Inactive hydrocodone 7.5 mg-acetaminophen 325 mg tablet RxNorm: 851690 1 Tablet(s) PO Q4H as needed 02/05/2018 03/06/2018 Inactive clindamycin HCl 300 mg capsule RxNorm: 507076 1 Capsule(s) PO TID 01/09/2018 01/15/2018 Inactive promethazine 25 mg tablet RxNorm: 389377 Tablet(s) TAKE ONE TABLET BY MOUTH EVERY 6 TO 8 HOURS NEEDED 01/08/2018 03/14/2018 Inactive Diflucan 150 mg tablet RxNorm: 346319 Tablet(s) TAKE ONE TABLET BY MOUTH ONCE DAILY FOR 7 DAYS THEN TAKE ONE TABLET BY MOUTH ONCE A WEEK 01/08/2018 02/18/2018 Inactive Bactrim DS 800 mg-160 mg tablet RxNorm: 159568 1 Tablet(s) PO BID 01/08/2018 01/17/2018 Inactive prednisone 20 mg tablet RxNorm: 064967 2 Tablet(s) PO daily 11/23/2017 11/27/2017 Inactive Zithromax Z-Rashid 250 mg tablet RxNorm: 284441 1 Tablet(s) PO UD 09/05/2017 02/11/2018 Inactive Kenalog 40 mg/mL suspension for injection RxNorm: 9087627 Milliliter(s) Inj 09/05/2017 09/05/2017 Inactive prednisone 20 mg tablet RxNorm: 289683 2 Tablet(s) PO daily 09/05/2017 09/09/2017 Inactive ibuprofen 800 mg tablet RxNorm: 869718 1 Tablet(s) PO TID 07/27/2017 02/21/2018 Inactive alprazolam 0.5 mg tablet RxNorm: 476339 1 Tablet(s) PO Q8 as needed 06/20/2017 07/09/2017 Inactive metoprolol succinate ER 100 mg tablet,extended release 24 hr RxNorm: 536758 TAKE ONE TABLET BY MOUTH ONCE DAILY 06/20/2017 08/05/2018 Inactive Zithromax Z-Rashid 250 mg tablet RxNorm: 491064 1 Tablet(s) PO UD 06/15/2017 07/25/2017 Inactive Xopenex HFA 45 mcg/actuation aerosol inhaler RxNorm: 508753 INHALE ONE PUFF INTO LUNGS NEEDED 06/13/2017 07/14/2017 Inactive Xopenex 1.25 mg/3 mL solution for nebulization RxNorm: 684420 Milliliter(s) USE ONE VIAL IN NEBULIZER THREE TIMES DAILY 06/08/2017 No Stop Date Active Flovent HFA 44 mcg/actuation aerosol inhaler RxNorm: 726544 2 Puff(s) INH BID 06/08/2017 No Stop Date Active potassium chloride ER 10 mEq tablet,extended release RxNorm: 056811 1 Tablet(s) PO daily 06/08/2017 06/10/2017 Inactive Lasix 20 mg tablet RxNorm: 318918 1 Tablet(s) PO daily 06/08/2017 06/10/2017 Inactive Xopenex HFA 45 mcg/actuation aerosol inhaler RxNorm: 943842 INHALE ONE PUFF INTO LUNGS NEEDED 06/08/2017 06/12/2017 Inactive triamcinolone acetonide 0.025 % topical cream RxNorm: 1520130 1 Application TOP BID 06/07/2017 No Stop Date Active ibuprofen 800 mg tablet RxNorm: 831000 1 Tablet(s) PO TID 06/07/2017 07/06/2017 Inactive cyclobenzaprine 5 mg tablet RxNorm: 399176 1/2 Tablet(s) PO TID as needed muscle spasms 05/28/2017 06/01/2017 Inactive Diflucan 150 mg tablet RxNorm: 031649 TAKE ONE TABLET BY MOUTH ONCE DAILY FOR 7 DAYS THEN TAKE ONE TABLET BY MOUTH ONCE A WEEK 05/28/2017 01/07/2018 Inactive bumetanide 1 mg tablet RxNorm: 619530 TAKE ONE TABLET BY MOUTH TWICE DAILY 05/25/2017 No Stop Date Active meloxicam 7.5 mg tablet RxNorm: 259861 1 Tablet(s) PO daily as needed 05/25/2017 07/23/2017 Inactive Xopenex 1.25 mg/3 mL solution for nebulization RxNorm: 746623 USE ONE VIAL IN NEBULIZER THREE TIMES DAILY 05/25/2017 06/07/2017 Inactive Protonix 40 mg tablet,delayed release RxNorm: 263225 1 Tablet(s) PO daily 05/08/2017 11/03/2017 Inactive Protonix 40 mg tablet,delayed release RxNorm: 523974 1 Tablet(s) PO daily 05/04/2017 05/03/2017 Inactive Protonix 40 mg tablet,delayed release RxNorm: 495206 1 Tablet(s) PO daily 05/04/2017 05/07/2017 Inactive meloxicam 7.5 mg tablet RxNorm: 769056 1 Tablet(s) PO daily as needed 04/25/2017 04/24/2017 Inactive meloxicam 7.5 mg tablet RxNorm: 175679 1 Tablet(s) PO daily as needed 04/25/2017 05/04/2017 Inactive promethazine 25 mg tablet RxNorm: 761576 TAKE ONE TABLET BY MOUTH EVERY 6 TO 8 HOURS NEEDED 04/25/2017 01/07/2018 Inactive Kenalog 40 mg/mL suspension for injection RxNorm: 5144087 1 Milliliter(s) Inj 04/24/2017 04/24/2017 Inactive cyclobenzaprine 5 mg tablet RxNorm: 241466 1/2 Tablet(s) PO TID as needed muscle spasms 04/24/2017 04/28/2017 Inactive Xopenex HFA 45 mcg/actuation aerosol inhaler RxNorm: 602984 INHALE ONE PUFF INTO LUNGS NEEDED 03/30/2017 04/14/2017 Inactive Humalog KwikPen 200 unit/mL (3 mL) subcutaneous RxNorm: 4086117 INJECT 35 UNITS SUBCUTANEOUSLY BEFORE MEAL(S) 03/30/2017 06/05/2017 Inactive promethazine 25 mg tablet RxNorm: 689047 Tablet(s) TAKE ONE TABLET BY MOUTH EVERY 6 TO 8 HOURS NEEDED 03/12/2017 03/26/2017 Inactive cyclobenzaprine 10 mg tablet RxNorm: 068284 TAKE ONE TABLET BY MOUTH ONCE DAILY NEEDED 03/06/2017 03/15/2017 Inactive lidocaine 5 % topical patch RxNorm: 8761035 USE ONE PATCH TOPICALLY DAILY. 12 HOURS ON AND THEN 12 HOURS OFF. 03/06/2017 03/15/2017 Inactive Humalog KwikPen 200 unit/mL (3 mL) subcutaneous RxNorm: 8218511 INJECT 35 UNITS SUBCUTANEOUSLY BEFORE MEAL(S) 02/20/2017 03/25/2017 Inactive promethazine 25 mg tablet RxNorm: 855695 Tablet(s) TAKE ONE TABLET BY MOUTH EVERY 6 TO 8 HOURS NEEDED 02/20/2017 03/06/2017 Inactive Xopenex HFA 45 mcg/actuation aerosol inhaler RxNorm: 198756 INHALE ONE PUFF INTO LUNGS NEEDED 02/20/2017 03/07/2017 Inactive bumetanide 1 mg tablet RxNorm: 389556 TAKE ONE TABLET BY MOUTH TWICE DAILY 02/15/2017 05/15/2017 Inactive bumetanide 1 mg tablet RxNorm: 377776 TAKE ONE TABLET BY MOUTH TWICE DAILY 01/15/2017 02/13/2017 Inactive metoprolol succinate ER 100 mg tablet,extended release 24 hr RxNorm: 786290 TAKE ONE TABLET BY MOUTH ONCE DAILY 01/11/2017 06/19/2017 Inactive Zithromax Z-Rashid 250 mg tablet RxNorm: 314492 1 Tablet(s) PO UD 01/09/2017 03/13/2017 Inactive meclizine 25 mg tablet RxNorm: 782514 1 Tablet(s) PO TID as needed 01/09/2017 01/18/2017 Inactive Kenalog 40 mg/mL suspension for injection RxNorm: 9478200 Milliliter(s) Inj 01/09/2017 01/09/2017 Inactive promethazine 25 mg tablet RxNorm: 059037 Tablet(s) TAKE ONE TABLET BY MOUTH EVERY 6 TO 8 HOURS NEEDED 12/29/2016 01/12/2017 Inactive Voltaren 1 % topical gel RxNorm: 305914 APPLY TOPICALLY TO AFFECTED AREA TWICE DAILY 12/25/2016 01/13/2017 Inactive cyclobenzaprine 10 mg tablet RxNorm: 345457 TAKE ONE TABLET BY MOUTH NEEDED 12/22/2016 12/31/2016 Inactive lidocaine 5 % topical patch RxNorm: 2548136 USE ONE PATCH TOPICALLY DAILY. 12 HOURS ON AND THEN 12 HOURS OFF. 12/22/2016 12/31/2016 Inactive hydrocodone 7.5 mg-acetaminophen 325 mg tablet RxNorm: 459412 1 Tablet(s) PO Q4H as needed 12/22/2016 01/20/2017 Inactive bumetanide 1 mg tablet RxNorm: 948637 TAKE ONE TABLET BY MOUTH TWICE DAILY 12/17/2016 01/14/2017 Inactive promethazine 25 mg tablet RxNorm: 996557 Tablet(s) TAKE ONE TABLET BY MOUTH EVERY 6 TO 8 HOURS NEEDED 11/16/2016 12/15/2016 Inactive spironolactone 50 mg tablet RxNorm: 539835 TAKE ONE TABLET BY MOUTH TWICE DAILY 11/15/2016 05/13/2017 Inactive Basaglar KwikPen 100 unit/mL (3 mL) subcutaneous RxNorm: 4658277 Unit(s) INJECT 35 UNITS IN THE MORNING AND 50 UNITS IN THE EVENING SUBCUTANEOUSLY 11/15/2016 03/14/2017 Inactive cyclobenzaprine 10 mg tablet RxNorm: 184240 TAKE ONE TABLET BY MOUTH NEEDED 11/15/2016 12/04/2016 Inactive lidocaine 5 % topical patch RxNorm: 5015694 1 Patch TOP daily . 12 HOURS ON, 12 HOURS OFF 11/15/2016 12/04/2016 Inactive lidocaine 4 % topical patch RxNorm: 9265421 1 Patch TOP on for 12 hours and off for 12 hours 11/14/2016 11/14/2016 Inactive promethazine 25 mg tablet RxNorm: 701456 TAKE ONE TABLET BY MOUTH EVERY 6 TO 8 HOURS NEEDED 11/14/2016 11/15/2016 Inactive Basaglar KwikPen 100 unit/mL (3 mL) subcutaneous RxNorm: 3749677 INJECT 35 UNITS IN THE MORNING AND 50 UNITS IN THE EVENING SUBCUTANEOUSLY 11/14/2016 11/14/2016 Inactive cyclobenzaprine 10 mg tablet RxNorm: 812853 TAKE ONE TABLET BY MOUTH NEEDED 11/14/2016 11/14/2016 Inactive spironolactone 50 mg tablet RxNorm: 885703 TAKE ONE TABLET BY MOUTH TWICE DAILY 11/14/2016 11/14/2016 Inactive Diflucan 150 mg tablet RxNorm: 552611 1 Tablet(s) PO as needed prophylactic after sexual intercourse 10/30/2016 No Stop Date Active hydrocodone 7.5 mg-acetaminophen 325 mg tablet RxNorm: 226972 1 Tablet(s) PO Q4H as needed 10/30/2016 11/28/2016 Inactive clotrimazole 100 mg vaginal tablet RxNorm: 529786 1 Tablet(s) VAG QW 10/30/2016 11/28/2016 Inactive Humalog KwikPen 200 unit/mL (3 mL) subcutaneous RxNorm: 2512451 35 Unit(s) SQ AC 10/30/2016 02/19/2017 Inactive QS 30 day supply Bydureon 2 mg/0.65 mL subcutaneous pen injector RxNorm: 4440857 2 Milligram(s) SQ QW 10/30/2016 11/28/2016 Inactive Basaglar KwikPen 100 unit/mL (3 mL) subcutaneous RxNorm: 7592318 Unit(s) SQ 35 units in the morning and 50 units in the evening 10/30/2016 11/13/2016 Inactive QS 30 day supply cyclobenzaprine 10 mg tablet RxNorm: 205697 TAKE ONE TABLET BY MOUTH NEEDED 10/27/2016 11/05/2016 Inactive Diflucan 150 mg tablet RxNorm: 886438 1 Tablet(s) PO daily x 7 days then once a week 10/27/2016 10/29/2016 Inactive promethazine 25 mg tablet RxNorm: 463887 TAKE ONE TABLET BY MOUTH EVERY 6 TO 8 HOURS NEEDED 10/27/2016 11/10/2016 Inactive Diflucan 150 mg tablet RxNorm: 411082 1 Tablet(s) PO daily x 7 days then once a week 10/09/2016 10/15/2016 Inactive Diflucan 150 mg tablet RxNorm: 886803 1 Tablet(s) PO daily 09/20/2016 09/26/2016 Inactive Cipro 500 mg tablet RxNorm: 212200 1 Tablet(s) PO BID 09/12/2016 09/21/2016 Inactive Flagyl 500 mg tablet RxNorm: 433011 1 Tablet(s) PO TID 09/12/2016 09/21/2016 Inactive Diflucan 150 mg tablet RxNorm: 993156 1 Tablet(s) PO daily 09/06/2016 09/12/2016 Inactive hydrocodone 7.5 mg-acetaminophen 325 mg tablet RxNorm: 842525 1 Tablet(s) PO Q4H as needed 07/12/2016 08/10/2016 Inactive Xopenex 1.25 mg/3 mL solution for nebulization RxNorm: 252163 3 Milliliter(s) INH TID 06/16/2016 05/24/2017 Inactive cefdinir 300 mg capsule RxNorm: 400195 1 Capsule(s) PO BID 06/16/2016 06/25/2016 Inactive Mobic 7.5 mg tablet RxNorm: 559855 1 Tablet(s) PO daily 06/16/2016 06/25/2016 Inactive Levaquin 500 mg tablet RxNorm: 904137 1 Tablet(s) PO daily 06/16/2016 06/22/2016 Inactive cyclobenzaprine 10 mg tablet RxNorm: 046387 1 Tablet(s) PO PRN as needed 06/14/2016 06/23/2016 Inactive promethazine 25 mg tablet RxNorm: 410593 TAKE ONE TABLET BY MOUTH EVERY 6 TO 8 HOURS NEEDED 06/14/2016 06/28/2016 Inactive Xopenex HFA 45 mcg/actuation aerosol inhaler RxNorm: 360042 1 Puff(s) INH PRN 06/14/2016 07/15/2016 Inactive pen needle, diabetic 32 gauge x 5/16" RxNorm: 1 use Miscellaneous AC & HS 06/13/2016 No Stop Date Active QS 30 day supply Humalog KwikPen 200 unit/mL (3 mL) subcutaneous RxNorm: 5922337 10 Unit(s) SQ AC 06/13/2016 10/29/2016 Inactive QS 30 day supply Basaglar KwikPen 100 unit/mL (3 mL) subcutaneous RxNorm: 1036740 22 units in the morning and 35 in the evening. Unit(s) SQ 06/13/2016 10/29/2016 Inactive QS 30 day supply Tivorbex 20 mg capsule RxNorm: 7702592 1 Capsule(s) PO TID as needed 06/13/2016 06/13/2016 Inactive metoprolol succinate ER 100 mg tablet,extended release 24 hr RxNorm: 786474 TAKE ONE TABLET BY MOUTH ONCE DAILY 06/13/2016 10/10/2016 Inactive hydrocodone 7.5 mg-acetaminophen 325 mg tablet RxNorm: 954066 1 Tablet(s) PO Q4H as needed 06/13/2016 07/11/2016 Inactive Voltaren 1 % topical gel RxNorm: 202089 APPLY TOPICALLY TO AFFECTED AREA TWICE DAILY 05/30/2016 07/08/2016 Inactive cyclobenzaprine 10 mg tablet RxNorm: 836162 1 Tablet(s) PO PRN as needed 05/19/2016 05/28/2016 Inactive alprazolam 0.5 mg tablet RxNorm: 016757 1 Tablet(s) PO Q8 as needed 05/19/2016 07/23/2018 Inactive bumetanide 1 mg tablet RxNorm: 091168 TAKE ONE TABLET BY MOUTH TWICE DAILY 05/19/2016 06/17/2016 Inactive Sprintec (28) 0.25 mg-35 mcg tablet RxNorm: 936227 1 Tablet(s) PO UD 05/08/2016 No Stop Date Active Lantus Solostar 100 unit/mL (3 mL) subcutaneous insulin pen RxNorm: 840572 Unit(s) SQ UD 15units qam 30 units qhs 05/08/2016 No Stop Date Active Humalog KwikPen 200 unit/mL (3 mL) subcutaneous RxNorm: 9345151 10 Unit(s) SQ AC 05/08/2016 06/12/2016 Inactive bumetanide 1 mg tablet RxNorm: 723743 TAKE ONE TABLET BY MOUTH TWICE DAILY 04/28/2016 05/18/2016 Inactive Voltaren 1 % topical gel RxNorm: 141916 1 Application TOP BID 04/28/2016 05/07/2016 Inactive cyclobenzaprine 10 mg tablet RxNorm: 706789 1 Tablet(s) PO PRN as needed 04/28/2016 05/07/2016 Inactive hydrocodone 7.5 mg-acetaminophen 325 mg tablet RxNorm: 250615 1 Tablet(s) PO Q4H as needed 04/18/2016 05/16/2016 Inactive Lantus Solostar 100 unit/mL (3 mL) subcutaneous insulin pen RxNorm: 960548 Unit(s) SQ UD 10 units QHS x5 days, if sugars are over 200 increase to 15 units x 5 days, if sugars over 200 increase to 20 units. 04/14/2016 05/07/2016 Inactive lidocaine 4 % topical patch RxNorm: 9372177 1 Patch TOP on for 12 hours and off for 12 hours 04/13/2016 11/13/2016 Inactive Voltaren 1 % topical gel RxNorm: 169493 1 Application TOP BID 04/10/2016 04/27/2016 Inactive metformin ER 500 mg 24 hr tablet,extended release RxNorm: 804580 1 Tablet(s) PO daily 04/06/2016 05/05/2016 Inactive Kenalog 40 mg/mL suspension for injection RxNorm: 6476862 1 Milliliter(s) Inj 04/06/2016 04/06/2016 Inactive cyclobenzaprine 10 mg tablet RxNorm: 079951 1 Tablet(s) PO PRN as needed 04/06/2016 04/27/2016 Inactive WelChol 3.75 gram oral powder packet RxNorm: 325275 1 packet PO daily 04/06/2016 07/04/2016 Inactive alprazolam 0.5 mg tablet RxNorm: 580689 1 Tablet(s) PO Q8 as needed 03/30/2016 06/19/2017 Inactive Levaquin 500 mg tablet RxNorm: 379800 1 Tablet(s) PO daily 03/30/2016 04/05/2016 Inactive metoprolol succinate ER 100 mg tablet,extended release 24 hr RxNorm: 416539 TAKE ONE TABLET BY MOUTH ONCE DAILY 03/16/2016 06/12/2016 Inactive Levaquin 500 mg tablet RxNorm: 787923 1 Tablet(s) PO daily 03/08/2016 03/14/2016 Inactive prednisone 20 mg tablet RxNorm: 721376 2 Tablet(s) PO daily 03/08/2016 03/12/2016 Inactive Xopenex HFA 45 mcg/actuation aerosol inhaler RxNorm: 797011 1 Puff(s) INH PRN 02/28/2016 06/13/2016 Inactive Phenergan with Codeine Syrup RxNorm: 5-10 ML PO QID as needed cough 02/28/2016 03/18/2018 Inactive Kenalog 40 mg/mL suspension for injection RxNorm: 7071860 1 Milliliter(s) Inj 02/28/2016 02/28/2016 Inactive Zithromax Z-Rashid 250 mg tablet RxNorm: 841462 1 Tablet(s) PO UD 02/28/2016 03/27/2016 Inactive alprazolam 0.5 mg tablet RxNorm: 806212 1 Tablet(s) PO Q8 as needed 02/24/2016 06/19/2017 Inactive glipizide 5 mg tablet RxNorm: 397310 1 Tablet(s) PO daily 01/18/2016 05/16/2016 Inactive Actos 15 mg tablet RxNorm: 045365 1 Tablet(s) PO daily 01/18/2016 02/16/2016 Inactive gabapentin 100 mg capsule RxNorm: 805106 1 Capsule(s) PO QHS 01/13/2016 03/12/2016 Inactive gabapentin 100 mg capsule RxNorm: 817966 1 Capsule(s) PO QHS 01/13/2016 01/12/2016 Inactive Bydureon 2 mg/0.65 mL subcutaneous pen injector RxNorm: 3578044 1 Milliliter(s) SQ QW 01/12/2016 01/11/2016 Inactive Bydureon 2 mg/0.65 mL subcutaneous pen injector RxNorm: 8034108 2/0.65ml Milligram(s) SQ QW 01/12/2016 05/16/2016 Inactive Bydureon 2 mg/0.65 mL subcutaneous pen injector RxNorm: 0411058 1 Milliliter(s) SQ QW 01/12/2016 01/11/2016 Inactive bumetanide 1 mg tablet RxNorm: 940671 TAKE ONE TABLET BY MOUTH TWICE DAILY 01/10/2016 04/08/2016 Inactive promethazine 25 mg tablet RxNorm: 665907 Tablet(s) Tablet(s) 1 Tablet(s) PO Q6-8H as needed 12/16/2015 04/13/2016 Inactive promethazine 25 mg tablet RxNorm: 064343 Tablet(s) 1 Tablet(s) PO Q6-8H as needed 12/10/2015 12/15/2015 Inactive Trulicity 0.75 mg/0.5 mL subcutaneous pen injector RxNorm: 1195432 INJECT ONE-HALF ML SUBCUTANEOUSLY ONCE A WEEK 12/10/2015 01/11/2016 Inactive glipizide 5 mg tablet RxNorm: 197004 1 Tablet(s) PO daily 12/10/2015 01/17/2016 Inactive bumetanide 1 mg tablet RxNorm: 085637 TAKE ONE TABLET BY MOUTH TWICE DAILY 12/10/2015 01/08/2016 Inactive promethazine 25 mg tablet RxNorm: 340844 Tablet(s) 1 Tablet(s) PO Q6-8H as needed 11/18/2015 12/09/2015 Inactive promethazine 25 mg tablet RxNorm: 459225 1 Tablet(s) PO Q6-8H as needed 11/16/2015 11/17/2015 Inactive glipizide 5 mg tablet RxNorm: 992160 1/2 Tablet(s) PO daily 11/16/2015 12/15/2015 Inactive promethazine 25 mg tablet RxNorm: 937963 Tablet(s) 1 Tablet(s) PO Q6-8H as needed 11/11/2015 12/10/2015 Inactive Trulicity 0.75 mg/0.5 mL subcutaneous pen injector RxNorm: 7808948 .5 Milliliter(s) SQ QW 11/11/2015 01/11/2016 Inactive metoprolol tartrate 50 mg tablet RxNorm: 661344 1 Tablet(s) PO BID 11/11/2015 07/29/2018 Inactive promethazine 25 mg tablet RxNorm: 010325 1 Tablet(s) PO Q6-8H as needed 10/28/2015 11/10/2015 Inactive nystatin 100,000 unit/gram topical cream RxNorm: 622771 1 Gram(s) TOP BID 10/27/2015 No Stop Date Active alprazolam 0.5 mg tablet RxNorm: 165800 1 Tablet(s) PO Q8 as needed 10/27/2015 03/29/2016 Inactive hydrocodone 7.5 mg-acetaminophen 325 mg tablet RxNorm: 257618 1 Tablet(s) PO Q4H as needed 10/27/2015 11/25/2015 Inactive Trulicity 0.75 mg/0.5 mL subcutaneous pen injector RxNorm: 4856546 .5 Milliliter(s) SQ QW 10/27/2015 11/10/2015 Inactive glipizide 5 mg tablet RxNorm: 498447 1 Tablet(s) PO daily 10/27/2015 11/25/2015 Inactive hydrocodone 7.5 mg-acetaminophen 325 mg tablet RxNorm: 159540 1 Tablet(s) PO Q4H as needed 10/26/2015 10/26/2015 Inactive alprazolam 0.5 mg tablet RxNorm: 795130 1 Tablet(s) PO PRN as needed 10/26/2015 10/26/2015 Inactive promethazine 25 mg tablet RxNorm: 245488 1 Tablet(s) PO Q6-8H as needed 10/26/2015 11/15/2015 Inactive glipizide 5 mg tablet RxNorm: 128983 1/2 Tablet(s) PO daily 10/13/2015 10/26/2015 Inactive cefdinir 300 mg capsule RxNorm: 904033 1 Capsule(s) PO BID 10/05/2015 10/14/2015 Inactive prednisone 20 mg tablet RxNorm: 585161 2 Tablet(s) PO daily 10/05/2015 10/09/2015 Inactive Diflucan 150 mg tablet RxNorm: 074339 1 Tablet(s) PO daily 10/05/2015 10/11/2015 Inactive Invokamet 50 mg-500 mg tablet RxNorm: 1158145 1 Tablet(s) PO daily 10/05/2015 11/03/2015 Inactive alprazolam 0.5 mg tablet RxNorm: 445098 1 Tablet(s) PO PRN as needed 10/01/2015 02/23/2016 Inactive promethazine 25 mg tablet RxNorm: 900733 1 Tablet(s) PO Q6-8H as needed 09/30/2015 10/25/2015 Inactive bumetanide 1 mg tablet RxNorm: 433122 TAKE ONE TABLET BY MOUTH TWICE DAILY 09/30/2015 10/29/2015 Inactive bumetanide 1 mg tablet RxNorm: 357795 TAKE ONE TABLET BY MOUTH TWICE DAILY 09/20/2015 12/18/2015 Inactive bumetanide 1 mg tablet RxNorm: 342034 1 Tablet(s) PO BID 09/20/2015 10/19/2015 Inactive metoprolol succinate ER 100 mg tablet,extended release 24 hr RxNorm: 930074 1 Tablet(s) PO daily 09/16/2015 03/13/2016 Inactive spironolactone 50 mg tablet RxNorm: 105337 1 Tablet(s) PO BID 09/16/2015 03/13/2016 Inactive alprazolam 0.5 mg tablet RxNorm: 839888 1 Tablet(s) PO PRN as needed 09/16/2015 10/25/2015 Inactive hydrocodone 7.5 mg-acetaminophen 325 mg tablet RxNorm: 329898 1 Tablet(s) PO Q4H as needed 09/16/2015 10/25/2015 Inactive Invokamet 50 mg-1,000 mg tablet RxNorm: 1715374 1 Tablet(s) PO daily 09/06/2015 09/05/2015 Inactive Invokamet 50 mg-1,000 mg tablet RxNorm: 1519197 1 Tablet(s) PO daily 09/06/2015 12/04/2015 Inactive promethazine 25 mg tablet RxNorm: 644265 TAKE ONE TABLET BY MOUTH EVERY 6 TO 8 HOURS NEEDED 09/01/2015 09/16/2015 Inactive promethazine 25 mg tablet RxNorm: 912382 1 Tablet(s) PO Q6-8H as needed 08/27/2015 09/25/2015 Inactive metoprolol succinate ER 100 mg tablet,extended release 24 hr RxNorm: 984494 1 Tablet(s) PO daily 08/20/2015 09/15/2015 Inactive bumetanide 1 mg tablet RxNorm: 844869 1 Tablet(s) PO BID 08/20/2015 09/18/2015 Inactive Bumex 1 mg tablet RxNorm: 031112 1 Tablet(s) PO BID 08/20/2015 11/15/2015 Inactive Kenalog 40 mg/mL suspension for injection RxNorm: 7462487 Milliliter(s) Inj 08/20/2015 08/20/2015 Inactive bumetanide 1 mg tablet RxNorm: 468654 1 Tablet(s) PO BID 08/20/2015 08/19/2015 Inactive Levaquin 500 mg tablet RxNorm: 744674 1 Tablet(s) PO daily 08/20/2015 08/26/2015 Inactive promethazine 25 mg tablet RxNorm: 226780 1 Tablet(s) PO Q6-8H as needed 08/06/2015 08/26/2015 Inactive metformin 500 mg tablet RxNorm: 387898 Tablet(s) PO 500mg in the morning and 1000mg at night No Start Date 09/16/2015 Inactive alprazolam 0.25 mg tablet RxNorm: 880069 1 Tablet(s) PO daily as needed anxiety No Start Date 08/07/2018 Inactive Lantus Solostar 100 unit/mL (3 mL) subcutaneous insulin pen RxNorm: 575543 Unit(s) SQ UD 10 units QHS x 5 days, if blood sugars are above 200 increase to 15 units x 5 days, if still 200 increase to 20 units. No Start Date 04/13/2016 Inactive alprazolam 0.5 mg tablet RxNorm: 446812 1 Tablet(s) PO PRN as needed No Start Date 09/15/2015 Inactive cyclobenzaprine 10 mg tablet RxNorm: 203720 1 Tablet(s) PO PRN as needed No Start Date 04/05/2016 Inactive lidocaine 4 % topical patch RxNorm: 6816082 1 Patch TOP on for 12 hours and off for 12 hours No Start Date 04/12/2016 Inactive metoprolol tartrate 50 mg tablet RxNorm: 983916 1 Tablet(s) PO BID No Start Date 11/10/2015 Inactive spironolactone 50 mg tablet RxNorm: 312500 1 Tablet(s) PO BID No Start Date 09/15/2015 Inactive hydrocodone 7.5 mg-acetaminophen 325 mg tablet RxNorm: 927601 1 Tablet(s) PO Q4H as needed No Start Date 09/15/2015 Inactive promethazine 25 mg tablet RxNorm: 443570 1 Tablet(s) PO PRN as needed No Start Date 08/05/2015 Inactive Medication Administered Medication Codes Instructions Start Date Status ceftriaxone 500 mg solution for injection RxNorm: 0023089 06/05/2018 No longer Active Kenalog 40 mg/mL suspension for injection RxNorm: 3877217 15.Milliliter 02/19/2018 No longer Active Kenalog 40 mg/mL suspension for injection RxNorm: 3209492 Milliliter 09/05/2017 No longer Active Kenalog 40 mg/mL suspension for injection RxNorm: 4164869 1Milliliter 04/24/2017 No longer Active Kenalog 40 mg/mL suspension for injection RxNorm: 2371682 Milliliter 01/09/2017 No longer Active Kenalog 40 mg/mL suspension for injection RxNorm: 0956979 1Milliliter 04/06/2016 No longer Active Kenalog 40 mg/mL suspension for injection RxNorm: 3124119 1Milliliter 02/28/2016 No longer Active Kenalog 40 mg/mL suspension for injection RxNorm: 8279599 Milliliter 08/20/2015 No longer Active Immunizations Vaccine [...] Code Item Item Code Result Date %Hba1C Asf493 % HbA1c 85962- 6 8.4 % 06/06/2018 %Hba1C Ejk586 Gluc Ave 194 mg/dL 06/06/2018 Lipid Ord30 CHOL 233 mg/dL 03/14/2018 Lipid Ord30 HDL 38.0 mg/dl 03/14/2018 Lipid Ord30 TRIG 143 mg/dL 03/14/2018 Lipid Ord30 LDL 166 mg/dL 03/14/2018 Lipid Ord30 C/HDL 6.1 Ratio 03/14/2018 %Hba1C Mbw173 % HbA1c 55457- 6 9.8 % 03/14/2018 %Hba1C Ede413 Gluc Ave 235 mg/dL 03/14/2018 Tsh Ord6 TSH (3rd IS) 1.09 uIU/mL 03/14/2018 Comp Metabolic Hkd426 NA 137 mEq/L 03/14/2018 Comp Metabolic Yvc631 K 4.6 mEq/L 03/14/2018 Comp Metabolic Bgx962 CL 100 mEq/L 03/14/2018 Comp Metabolic Srg782 CO2 27.0 mEq/L 03/14/2018 Comp Metabolic Omi436 ANION GAP 15 03/14/2018 Comp Metabolic Kdj304 GLUCOSE 144 mg/dL 03/14/2018 Comp Metabolic Ikg654 Creat 0.5 mg/dL 03/14/2018 Comp Metabolic Yaq080 eGFR 138 ml/min/1.73m2 03/14/2018 Comp Metabolic Nww850 BUN 9 mg/dL 03/14/2018 Comp Metabolic Xzk800 B/C Ratio 17.6 Ratio 03/14/2018 Comp Metabolic Zkr924 CALCIUM 10.0 mg/dL 03/14/2018 Comp Metabolic Rph401 ALK PHOS 102 U/L 03/14/2018 Comp Metabolic Vph987 AST(SGOT) 31 U/L 03/14/2018 Comp Metabolic Mys537 ALT(SGPT) 41 U/L 03/14/2018 Comp Metabolic Cjr391 BILI T 0.5 mg/dL 03/14/2018 Comp Metabolic Etp603 ALBUMIN 4.3 g/dL 03/14/2018 Comp Metabolic Qup607 TPRO 6.8 g/dL 03/14/2018 Comp Metabolic Uhl351 GLOB 2.5 g/dL 03/14/2018 Comp Metabolic Bgh713 A/G Ratio 1.8 Ratio 03/14/2018 Comp Metabolic Hlv418 Osmo 275 mOsmo 03/14/2018 Cbc With Differential [...] 90.5 fl 03/14/2018 Cbc With Differential Ord2 Lucas% 5.6 % 03/14/2018 Cbc With Differential Ord2 [...] 4.31 K/ul 03/14/2018 Cbc With Differential Ord2 Lucas ABS# 0.9 K/ul 03/14/2018 Cbc With Differential Ord2 Eos ABS# 0.2 K/ul 03/14/2018 Cbc With Differential Ord2 Baso ABS# 0.1 K/ul 03/14/2018 %Hba1C Bbh589 % HbA1c 24460- 6 8.8 % 06/13/2017 %Hba1C And206 Gluc Ave 206 mg/dL 06/13/2017 Tsh Ord6 [...] 30.2 pg 06/13/2017 Cbc With Differential Ord2 Lucas% 4.9 % 06/13/2017 Cbc With Differential Ord2 [...] 3.21 K/ul 06/13/2017 Cbc With Differential Ord2 Lucas ABS# 0.7 K/ul 06/13/2017 Cbc With Differential Ord2 Eos ABS# 0.2 K/ul 06/13/2017 Cbc With Differential Ord2 Baso ABS# 0.1 K/ul 06/13/2017 Lipid Ord30 CHOL 219 mg/dL 06/13/2017 Lipid Ord30 HDL 40.0 mg/dl 06/13/2017 Lipid Ord30 TRIG 200 mg/dL 06/13/2017 Lipid Ord30 LDL 139 mg/dL 06/13/2017 Lipid Ord30 C/HDL 5.5 Ratio 06/13/2017 Comp Metabolic Axg218 NA 139 mEq/L 06/13/2017 Comp Metabolic Riq032 K 4.4 mEq/L 06/13/2017 Comp Metabolic Ytc032 CL 100 mEq/L 06/13/2017 Comp Metabolic Vfn307 CO2 29.0 mEq/L 06/13/2017 Comp Metabolic Nvw746 ANION GAP 14 06/13/2017 Comp Metabolic Nud743 GLUCOSE 257 mg/dL 06/13/2017 Comp Metabolic Hrc844 Creat 0.5 mg/dL 06/13/2017 Comp Metabolic Xsk356 eGFR 145 ml/min/1.73m2 06/13/2017 Comp Metabolic Mol420 BUN 13 mg/dL 06/13/2017 Comp Metabolic Qzv270 B/C Ratio 26.5 Ratio 06/13/2017 Comp Metabolic Who482 CALCIUM 9.7 mg/dL 06/13/2017 Comp Metabolic Gih408 ALK PHOS 98 U/L 06/13/2017 Comp Metabolic Ofe083 AST(SGOT) 30 U/L 06/13/2017 Comp Metabolic Kvn703 ALT(SGPT) 43 U/L 06/13/2017 Comp Metabolic Oif372 BILI T 0.5 mg/dL 06/13/2017 Comp Metabolic Wxm431 ALBUMIN 4.0 g/dL 06/13/2017 Comp Metabolic Fav105 TPRO 6.4 g/dL 06/13/2017 Comp Metabolic Rwa214 GLOB 2.4 g/dL 06/13/2017 Comp Metabolic Ccv966 A/G Ratio 1.7 Ratio 06/13/2017 Comp Metabolic Dhr901 Osmo 286 mOsmo 06/13/2017 %Hba1C Pob378 % HbA1c 29316- 6 11.1 % 2016 %Hba1C Waz437 Gluc Ave 272 mg/dL 2016 C-Reactive Protein Qnt Crqnt CRP 4.7 mg/dl 2016 Comp Metabolic Hfb015 NA 136 mEq/L 2016 Comp Metabolic Xyo918 K 4.1 mEq/L 2016 Comp Metabolic Hqg894 CL 96 mEq/L 2016 Comp Metabolic Bxw638 CO2 29.0 mEq/L 2016 Comp Metabolic Hiv807 ANION GAP 15 2016 Comp Metabolic Kte253 GLUCOSE 291 mg/dL 2016 Comp Metabolic Liv286 Creat 0.4 mg/dL 2016 Comp Metabolic Wbn820 eGFR 165 ml/min/1.73m2 2016 Comp Metabolic Kbt697 BUN 11 mg/dL 2016 Comp Metabolic Uqr378 B/C Ratio 25.0 Ratio 2016 Comp Metabolic Ygj610 CALCIUM 9.4 mg/dL 2016 Comp Metabolic Nsw477 ALK PHOS 111 U/L 2016 Comp Metabolic Iee592 AST(SGOT) 46 U/L 2016 Comp Metabolic Mdo135 ALT(SGPT) 60 U/L 2016 Comp Metabolic Yun851 BILI T 0.4 mg/dL 2016 Comp Metabolic Loo800 ALBUMIN 4.0 g/dL 2016 Comp Metabolic Vld232 TPRO 6.5 g/dL 2016 Comp Metabolic Xuu326 GLOB 2.6 g/dL 2016 Comp Metabolic Rke928 A/G Ratio 1.5 Ratio 2016 Comp Metabolic Qve818 Osmo 282 mOsmo 2016 Cbc With Differential [...] 30.5 pg 2016 Cbc With Differential Ord2 Lucas% 4.7 % 2016 Cbc With Differential Ord2 [...] 3.53 K/ul 2016 Cbc With Differential Ord2 Lucas ABS# 0.7 K/ul 2016 Cbc With Differential Ord2 Eos ABS# 0.2 K/ul 2016 Cbc With Differential Ord2 Baso ABS# 0.1 K/ul 2016 Lipid Ord30 CHOL 228 mg/dL 05/05/2016 Lipid Ord30 HDL 42.0 mg/dl 05/05/2016 Lipid Ord30 TRIG 168 mg/dL 05/05/2016 Lipid Ord30 LDL 152 mg/dL 05/05/2016 Lipid Ord30 C/HDL 5.4 Ratio 05/05/2016 Comp Metabolic Jkl604 NA 135 mEq/L 05/05/2016 Comp Metabolic Lqe187 K 4.1 mEq/L 05/05/2016 Comp Metabolic Nhh413 CL 99 mEq/L 05/05/2016 Comp Metabolic Epc377 CO2 29.0 mEq/L 05/05/2016 Comp Metabolic Woe311 ANION GAP 11 05/05/2016 Comp Metabolic Bpe228 GLUCOSE 229 mg/dL 05/05/2016 Comp Metabolic Mgx887 Creat 0.5 mg/dL 05/05/2016 Comp Metabolic Ueh584 eGFR 150 ml/min/1.73m2 05/05/2016 Comp Metabolic Evx203 BUN 14 mg/dL 05/05/2016 Comp Metabolic Avf789 B/C Ratio 29.2 Ratio 05/05/2016 Comp Metabolic Kok550 CALCIUM 9.1 mg/dL 05/05/2016 Comp Metabolic Vbp276 ALK PHOS 112 U/L 05/05/2016 Comp Metabolic Jwx685 AST(SGOT) 59 U/L 05/05/2016 Comp Metabolic Lgw861 ALT(SGPT) 63 U/L 05/05/2016 Comp Metabolic Mwn612 BILI T 0.7 mg/dL 05/05/2016 Comp Metabolic Gih933 ALBUMIN 3.8 g/dL 05/05/2016 Comp Metabolic Zeu490 TPRO 6.5 g/dL 05/05/2016 Comp Metabolic Euh761 GLOB 2.7 g/dL 05/05/2016 Comp Metabolic Uuj569 A/G Ratio 1.4 Ratio 05/05/2016 Comp Metabolic Qtn657 Osmo 278 mOsmo 05/05/2016 Cbc With Differential [...] 30.2 pg 05/05/2016 Cbc With Differential Ord2 Lucas% 4.4 % 05/05/2016 Cbc With Differential Ord2 [...] 3.59 K/ul 05/05/2016 Cbc With Differential Ord2 Lucas ABS# 0.7 K/ul 05/05/2016 Cbc With Differential Ord2 Eos ABS# 0.1 K/ul 05/05/2016 Cbc With Differential Ord2 Baso ABS# 0.1 K/ul 05/05/2016 %Hba1C Lrg871 % HbA1c 74824- 6 10.4 % 05/05/2016 %Hba1C Qxv759 Gluc Ave 252 mg/dL 05/05/2016 Hcg Beta Subunit Qual Serum 291859 B-HCG QUALITATIVE NEGATIVE 12/27/2015 GC/CHL PRB 1129786 Chl trach DNA Negative 12/25/2015 GC/CHL PRB 6252902 GC PROBE Negative 12/25/2015 Comp. Metabolic Panel (14) 88650 GLUCOSE 136 mg/dL 12/17/2015 Comp. Metabolic Panel (14) 56826 BUN 9 mg/dL 12/17/2015 Comp. Metabolic Panel (14) 14141 CREATININE 0.67 mg/dL 12/17/2015 Comp. Metabolic Panel (14) 28230 SODIUM 136 mmol/L 12/17/2015 Comp. Metabolic Panel (14) 49089 POTASSIUM 4.4 mmol/L 12/17/2015 Comp. Metabolic Panel (14) 05333 CHLORIDE 95 mmol/L 12/17/2015 Comp. Metabolic Panel (14) 95182 CARBON DIOXIDE 28 mmol/L 12/17/2015 Comp. Metabolic Panel (14) 32562 CALCIUM 10.1 mg/dL 12/17/2015 Comp. Metabolic Panel (14) 34356 TOTAL PROTEIN 7.0 g/dL 12/17/2015 Comp. Metabolic Panel (14) 08722 ALBUMIN 4.5 g/dL 12/17/2015 Comp. Metabolic Panel (14) 98233 ALKALINE PHOSPHATASE 87 U/L 12/17/2015 Comp. Metabolic Panel (14) 86438 TOTAL BILIRUBIN 0.5 mg/dL 12/17/2015 Comp. Metabolic Panel (14) 41644 SGOT (AST) 38 U/L 12/17/2015 Comp. Metabolic Panel (14) 44788 SGPT (ALT) 41 U/L 12/17/2015 Comp. Metabolic Panel (14) 65836 eGFR (mL/min/1.73m2) >60 12/17/2015 Comp. Metabolic Panel (14) 19443 12/17/2015 Cbc With Differential/Platelet 56740 WBC 16.67 thou/uL 12/17/2015 Cbc With Differential/Platelet 72531 RBC 5.11 mil/uL 12/17/2015 Cbc With Differential/Platelet 76456 HEMOGLOBIN 14.8 g/dL 12/17/2015 Cbc With Differential/Platelet 26409 HEMATOCRIT 48.7 % 12/17/2015 Cbc With Differential/Platelet 55149 MCV 95.4 fL 12/17/2015 Cbc With Differential/Platelet 12227 MCH 29.0 pg 12/17/2015 Cbc With Differential/Platelet 21129 MCHC 30.4 g/dL 12/17/2015 Cbc With Differential/Platelet 88686 RDW-CV 14.6 % 12/17/2015 Cbc With Differential/Platelet 97429 PLATELET COUNT 471 thou/uL 12/17/2015 Cbc With Differential/Platelet 85039 NEUTROPHIL % 71.3 % 12/17/2015 Cbc With Differential/Platelet 60325 LYMPHOCYTE % 22.4 % 12/17/2015 Cbc With Differential/Platelet 52781 MONOCYTE % 4.8 % 12/17/2015 Cbc With Differential/Platelet 72318 EOS % 0.7 % 12/17/2015 Cbc With Differential/Platelet 37953 BASO % 0.7 % 12/17/2015 Cbc With Differential/Platelet 32022 NEUTROPHIL ABS # 11.89 thou/uL 12/17/2015 Cbc With Differential/Platelet 54109 LYMPH ABS # 3.73 thou/uL 12/17/2015 Cbc With Differential/Platelet 92258 MONOCYTE ABS # 0.80 thou/uL 12/17/2015 Cbc With Differential/Platelet 49372 EOS ABS # 0.12 thou/uL 12/17/2015 Cbc With Differential/Platelet 08191 BASO ABS # 0.12 thou/uL 12/17/2015 Comp. [...] Hgb A1C With Eag Estimation GLYCOHEMOGLOBIN A1C 28118-1 8.1 % 11/13/2015 Hgb A1C With Eag Estimation ESTIMATED AVG GLUCOSE 186 mg/dL 11/13/2015 Comp. Metabolic Panel (14) 52866 GLUCOSE 84 mg/dL 09/11/2015 Comp. Metabolic Panel (14) 46597 BUN 11 mg/dL 09/11/2015 Comp. Metabolic Panel (14) 30047 CREATININE 0.56 mg/dL 09/11/2015 Comp. Metabolic Panel (14) 40121 SODIUM 142 mmol/L 09/11/2015 Comp. Metabolic Panel (14) 48866 POTASSIUM 4.3 mmol/L 09/11/2015 Comp. Metabolic Panel (14) 20679 CHLORIDE 98 mmol/L 09/11/2015 Comp. Metabolic Panel (14) 43964 CARBON DIOXIDE 27 mmol/L 09/11/2015 Comp. Metabolic Panel (14) 83043 CALCIUM 10.1 mg/dL 09/11/2015 Comp. Metabolic Panel (14) 58276 TOTAL PROTEIN 7.2 g/dL 09/11/2015 Comp. Metabolic Panel (14) 59718 ALBUMIN 4.7 g/dL 09/11/2015 Comp. Metabolic Panel (14) 44255 ALKALINE PHOSPHATASE 109 U/L 09/11/2015 Comp. Metabolic Panel (14) 71294 TOTAL BILIRUBIN 0.3 mg/dL 09/11/2015 Comp. Metabolic Panel (14) 83929 SGOT (AST) 53 U/L 09/11/2015 Comp. Metabolic Panel (14) 70838 SGPT (ALT) 53 U/L 09/11/2015 Comp. Metabolic Panel (14) 31634 eGFR (mL/min/1.73m2) >60 09/11/2015 Comp. Metabolic Panel (14) 61886 09/11/2015 Comp. Metabolic Panel (14) 88359 GLUCOSE 183 mg/dL 08/11/2015 Comp. Metabolic Panel (14) 46816 BUN 10 mg/dL 08/11/2015 Comp. Metabolic Panel (14) 61465 CREATININE 0.46 mg/dL 08/11/2015 Comp. Metabolic Panel (14) 12501 SODIUM 138 mmol/L 08/11/2015 Comp. Metabolic Panel (14) 55358 POTASSIUM 4.0 mmol/L 08/11/2015 Comp. Metabolic Panel (14) 53686 CHLORIDE 98 mmol/L 08/11/2015 Comp. Metabolic Panel (14) 52503 CARBON DIOXIDE 29 mmol/L 08/11/2015 Comp. Metabolic Panel (14) 58284 CALCIUM 9.4 mg/dL 08/11/2015 Comp. Metabolic Panel (14) 37875 TOTAL PROTEIN 6.8 g/dL 08/11/2015 Comp. Metabolic Panel (14) 13254 ALBUMIN 4.4 g/dL 08/11/2015 Comp. Metabolic Panel (14) 94424 ALKALINE PHOSPHATASE 118 U/L 08/11/2015 Comp. Metabolic Panel (14) 45785 TOTAL BILIRUBIN <0.3 mg/dL 08/11/2015 Comp. Metabolic Panel (14) 22507 SGOT (AST) 41 U/L 08/11/2015 Comp. Metabolic Panel (14) 16501 SGPT (ALT) 55 U/L 08/11/2015 Comp. Metabolic Panel (14) 33029 eGFR (mL/min/1.73m2) >60 08/11/2015 Comp. Metabolic Panel (14) 81480 08/11/2015 Cbc With Differential/Platelet 45965 WBC 11.76 thou/uL 08/11/2015 Cbc With Differential/Platelet 30827 RBC 4.98 mil/uL 08/11/2015 Cbc With Differential/Platelet 93443 HEMOGLOBIN 14.2 g/dL 08/11/2015 Cbc With Differential/Platelet 34445 HEMATOCRIT 46.7 % 08/11/2015 Cbc With Differential/Platelet 70281 MCV 93.8 fL 08/11/2015 Cbc With Differential/Platelet 38819 MCH 28.5 pg 08/11/2015 Cbc With Differential/Platelet 99339 MCHC 30.4 g/dL 08/11/2015 Cbc With Differential/Platelet 34510 RDW-CV 14.3 % 08/11/2015 Cbc With Differential/Platelet 56137 PLATELET COUNT 382 thou/uL 08/11/2015 Cbc With Differential/Platelet 26559 NEUTROPHIL % 67.3 % 08/11/2015 Cbc With Differential/Platelet 74230 LYMPHOCYTE % 24.0 % 08/11/2015 Cbc With Differential/Platelet 16456 MONOCYTE % 6.0 % 08/11/2015 Cbc With Differential/Platelet 12636 EOS % 1.6 % 08/11/2015 Cbc With Differential/Platelet 72674 BASO % 1.0 % 08/11/2015 Cbc With Differential/Platelet 94529 NEUTROPHIL ABS # 7.91 thou/uL 08/11/2015 Cbc With Differential/Platelet 76869 LYMPH ABS # 2.82 thou/uL 08/11/2015 Cbc With Differential/Platelet 36098 MONOCYTE ABS # 0.71 thou/uL 08/11/2015 Cbc With Differential/Platelet 64700 EOS ABS # 0.19 thou/uL 08/11/2015 Cbc With Differential/Platelet 23734 BASO ABS # 0.12 thou/uL 08/11/2015 Tsh 747940 TSH 3.220 uIU/mL 08/11/2015 Lipid Panel 68152 CHOLESTEROL 193 mg/dL 08/11/2015 Lipid Panel 36729 TRIGLYCERIDES 192 mg/dL 08/11/2015 Lipid Panel 96378 HDL 38 mg/dL 08/11/2015 Lipid Panel 78349 CHOLESTEROL/HDL 5.08 08/11/2015 Lipid Panel 95514 LDL (CALCULATED) 117 mg/dL 08/11/2015 Lipid Panel 46829 LDL/HDL 3.08 08/11/2015 Lipid Panel 60474 PHENOTYPE TYPE IV BORDERLINE 08/11/2015 Review of [...] Procedure Codes Date THER/PROPH/DIAG INJ SC/IM CPT-4: 65445 06/05/2018 ROCEPHIN, PER 250 MG CPT- 4: J0696 06/05/2018 REMOVAL OF SKIN TAGS <W/15 CPT-4: 46232 03/14/2018 FLU VAC NO PRSV 4 PRECIOUS 3 YRS+ CPT-4: 15592 03/14/2018 IMMUNIZATION ADMIN CPT- 4: 66479 03/14/2018 TRIAMCINOLONE ACET INJ NOS CPT-4: J3301 02/19/2018 THER/PROPH/DIAG INJ SC/IM CPT-4: 11662 02/19/2018 THER/PROPH/DIAG INJ SC/IM CPT-4: 26196 09/05/2017 TRIAMCINOLONE ACET INJ NOS CPT-4: J3301 09/05/2017 IMMUNIZATION ADMIN CPT- 4: 27057 04/24/2017 FLU VAC NO PRSV 4 PRECIOUS 3 YRS+ CPT-4: 83974 04/24/2017 DRAIN/INJECT JOINT/BURSA CPT-4: 46412 04/24/2017 TRIAMCINOLONE ACET INJ NOS CPT-4: J3301 04/24/2017 THER/PROPH/DIAG INJ SC/IM CPT-4: 10429 01/09/2017 TRIAMCINOLONE ACET INJ NOS CPT-4: J3301 01/09/2017 THER/PROPH/DIAG INJ SC/IM CPT-4: 54168 04/13/2016 Pneumococcal Polysaccharide Vaccine, 23-Valent, Ad CPT-4: 00525 04/13/2016 INJECT TRIGGER POINTS 3/> CPT-4: 14916 04/06/2016 TRIAMCINOLONE ACET INJ NOS CPT-4: J3301 04/06/2016 IMMUNIZATION ADMIN CPT- 4: 13083 03/30/2016 IIV4 FLU VACC NO PRESERV ID SNOMED CT: [id number] CPT-4: 98891 03/30/2016 TRIAMCINOLONE ACET INJ NOS CPT-4: J3301 02/28/2016 THER/PROPH/DIAG INJ SC/IM CPT-4: 78383 02/28/2016 TRIAMCINOLONE ACET INJ NOS CPT-4: J3301 08/20/2015 Vital Signs Date Vital 08/06/2018 Blood Pressure 1: 130/80 Code: 8480-6 BMI: 42.8 Code: 00716-1 Heart Rate 1: 110 bpm Height: 4'11" [...] 1: 127 Code: 8480-6 BMI: 42.4 Code: 34471-1 Heart Rate 1: 78 bpm Height: 4'11" SpO2: 97% Weight: 210 lbs 03/26/2018 Blood Pressure 1: 128 Code: 8480-6 BMI: 43.0 Code: 00371-3 Heart Rate 1: 120 bpm Height: 4'11" SpO2: 97% Weight: 213 lbs 03/14/2018 Blood Pressure 1: 120 Code: 8480-6 BMI: 43.0 Code: 93326-5 Heart Rate 1: 114 bpm Height: 4'11" SpO2: 95% Weight: 213 lbs 03/07/2018 Blood Pressure 1: 132 Code: 8480-6 BMI: 43.8 Code: 17809-8 Heart Rate 1: 123 bpm Height: 4'11" [...] 1: 134/86 Code: 8480-6 BMI: 45.4 Code: 09908-5 Heart Rate 1: 108 bpm Height: 4'11" SpO2: 95% Weight: 225 lbs 06/07/2017 Blood Pressure 1: 13274 Code: 8480-6 Heart Rate 1: 99 bpm Height: 4'11" SpO2: 95% 04/24/2017 Blood Pressure 1: 132/8096 Code: 8480-6 BMI: 47.7 Code: 26660-6 Heart Rate 1: 96 bpm Height: 4'11" Weight: 236 lbs 01/09/2017 Blood Pressure 1: 122 Code: 8480-6 BMI: 46.0 Code: 63091-8 Heart Rate 1: 114 bpm Height: 4'11" SpO2: 98% Temperature: 37.1 (C) / 98.7 (F) Weight: 228 lbs 10/30/2016 Blood Pressure 1: 124 Code: 8480-6 BMI: 49.1 Code: 31445-1 Heart Rate 1: 90 bpm Height: 4'11" SpO2: 97% Weight: 243 lbs 10/09/2016 Blood Pressure 1: 124 Code: 8480-6 BMI: 49.3 Code: 06800-3 Heart Rate 1: 91 bpm Height: 4'11" SpO2: 98% Weight: 244 lbs 09/12/2016 Blood Pressure 1: 128 Code: 8480-6 BMI: 49.1 Code: 41088-8 Heart Rate 1: 94 bpm Height: 4'11" SpO2: 95% Weight: 243 lbs 09/05/2016 Blood Pressure 1: 118 Code: 8480-6 BMI: 49.1 Code: 13919-2 Heart Rate 1: 100 bpm Height: 4'11" SpO2: 97% Weight: 243 lbs 06/16/2016 Blood Pressure 1: 120/62 Code: 8480-6 BMI: 49.1 Code: 96434-5 Heart Rate 1: 100 bpm Height: 4'11" SpO2: 96% Temperature: 36.7 (C) / 98.0 (F) Weight: 243 lbs 06/13/2016 Blood Pressure 1: 120/70 Code: 8480-6 Heart Rate 1: 117 bpm SpO2: 97% 05/19/2016 Blood Pressure 1: 130/64 Code: 8480-6 BMI: 49.1 Code: 87210-2 Heart Rate 1: 101 bpm Height: 4'11" SpO2: 96% Weight: 243 lbs 05/08/2016 Blood Pressure 1: 128 Code: 8480-6 Heart Rate 1: 119 bpm Height: SpO2: 97% Weight: 05/05/2016 Blood Pressure 1: 124 Code: 8480-6 BMI: 49.1 Code: 44664-4 Heart Rate 1: 75 bpm Height: 4'11" SpO2: 99% Weight: 243 lbs 04/10/2016 Blood Pressure 1: 140/80 Code: 8480-6 BMI: 49.7 Code: 92725-6 Heart Rate 1: 88 bpm Height: 4'11" SpO2: 95% Weight: 246 lbs 04/06/2016 Blood Pressure 1: 134/82 Code: 8480-6 BMI: 75.1 Code: 09081-3 Heart Rate 1: 72 bpm Height: 4' SpO2: 96% Weight: 246 lbs 03/08/2016 Blood Pressure 1: 126/72 Code: 8480-6 BMI: 49.7 Code: 83040-5 Heart Rate 1: 89 bpm Height: 4'11" SpO2: 97% Weight: 246 lbs 02/28/2016 Blood Pressure 1: 124/68 Code: 8480-6 BMI: 49.7 Code: 17862-5 Heart Rate 1: 89 bpm Height: 4'11" SpO2: 96% Weight: 246 lbs 01/18/2016 Blood Pressure 1: 142/78 Code: 8480-6 BMI: 48.9 Code: 19690-7 Heart Rate 1: 97 bpm Height: 4'11" SpO2: 97% Weight: 242 lbs 12/23/2015 Blood Pressure 1: 124/74 Code: 8480-6 BMI: 48.9 Code: 54100-6 Heart Rate 1: 106 bpm Height: 4'11" SpO2: 96% Weight: 242 lbs 12/16/2015 Blood Pressure 1: 116/82 Code: 8480-6 BMI: 48.3 Code: 87456-8 Heart Rate 1: 111 bpm Height: 4'11" SpO2: 97% Weight: 239 lbs 11/11/2015 Blood Pressure 1: 130/80 Code: 8480-6 BMI: 49.7 Code: 50429-1 Heart Rate 1: 105 bpm Height: 4'11" SpO2: 96% Weight: 246 lbs 10/27/2015 Blood Pressure 1: 122/70 Code: 8480-6 BMI: 49.5 Code: 49371-1 Heart Rate 1: 107 bpm Height: 4'11" SpO2: 96% Weight: 245 lbs 10/13/2015 Blood Pressure 1: 140/82 Code: 8480-6 BMI: 50.9 Code: 87857-7 Heart Rate 1: 111 bpm Height: 4'11" SpO2: 96% Weight: 252 lbs 10/05/2015 Blood Pressure 1: 118/70 Code: 8480-6 BMI: 51.1 Code: 28636-3 Heart Rate 1: 120 bpm Height: 4'11" SpO2: 97% Weight: 253 lbs 09/01/2015 Blood Pressure 1: 132/82 Code: 8480-6 BMI: 50.1 Code: 49790-5 Heart Rate 1: 110 bpm Height: 4'11" SpO2: 96% Weight: 248 lbs 08/20/2015 Blood Pressure 1: 132/78 Code: 8480-6 BMI: 51.7 Code: 08337-0 Heart Rate 1: 100 bpm Height: 4'11" Weight: 256 lbs 08/03/2015 Blood Pressure 1: 148/92 Code: 8480-6 BMI: 52.1 Code: 39143-6 Heart Rate 1: 100 bpm Height: 4'11" [...] Essential (primary) hypertension[ICD10: I10] Gloria Hess MD, [facility] CPT-4: 71068 08/06/2018 [id number] EST. PATIENT, LEVEL III Diagnosis: Hidradenitis suppurativa[ICD10: L73.2] Gloria Hess MD, [facility] CPT- 4: 93647 07/22/2018 94027 EST. PATIENT, LEVEL III Diagnosis: Hidradenitis suppurativa[ICD10: L73.2] Diagnosis: Encounter for other specified surgical aftercare[ICD10: Z48.89] Gloria Hess MD, [facility] CPT-4: 85049 07/18/2018 84554 EST. PATIENT, LEVEL III Diagnosis: Cellulitis of right axilla[ICD10: L03.111] Diagnosis: Diarrhea, unspecified[ICD10: R19.7] Gloria Hess MD, [facility] CPT- 4: 09357 06/28/2018 ([id number]) [id number] EST. PATIENT, LEVEL II Diagnosis: Cellulitis of right axilla[ICD10: L03.111] Tamy Hess MD, [facility] CPT-4: 51895 06/17/2018 08027 EST. PATIENT, LEVEL III Diagnosis: Cellulitis of right axilla[ICD10: L03.111] Diagnosis: Type 2 diabetes mellitus with hyperglycemia[ICD10: E11.65] Gloria Hess MD, [facility] CPT-4: 44232 06/05/2018 50117 EST. PATIENT, LEVEL III Diagnosis: Gastro-esophageal reflux disease without esophagitis[ICD10: K21.9] Diagnosis: Other allergic rhinitis[ICD10: J30.89] Diagnosis: Cough[ICD10: R05] Gloria Hess MD, [facility] CPT-4: 11236 03/26/2018 ([id number]) 06321 EST. PATIENT, LEVEL III Diagnosis: Cough[ICD10: R05] Gloria Hess MD, [facility] CPT-4: 45768 03/14/2018 08007 EST. PATIENT, LEVEL IV Diagnosis: Acute laryngopharyngitis[ICD10: J06.0] Diagnosis: Other allergic rhinitis[ICD10: J30.89] Diagnosis: Cough[ICD10: R05] Gloria Hess MD, [facility] CPT-4: 20722 03/07/2018 28738 EST. PATIENT, LEVEL IV Diagnosis: Acute bronchitis due to other specified organisms[ICD10: J20.8] Diagnosis: Acute laryngopharyngitis[ICD10: J06.0] Gloria Hess MD, [facility] CPT- 4: 72817 02/19/2018 [id number] EST. PATIENT, LEVEL IV Diagnosis: Candidiasis of vulva and vagina[ICD10: B37.3] Diagnosis: Rash and other nonspecific skin eruption[ICD10: R21] Gloria Hess MD, [facility] CPT-4: 11956 01/08/2018 [id number] EST. PATIENT, LEVEL III Diagnosis: Sacrococcygeal disorders, not elsewhere classified[ICD10: M53.3] Diagnosis: Low back pain[ICD10: M54.5] Gloria Hess MD, [facility] CPT-4: 46209 11/23/2017 15975 EST. PATIENT, LEVEL III Diagnosis: Acute laryngopharyngitis[ICD10: J06.0] Diagnosis: Other allergic rhinitis[ICD10: J30.89] Diagnosis: Acute bronchitis due to other specified organisms[ICD10: J20.8] Gloria Hess MD, [facility] CPT-4: 42243 09/05/2017 60146 EST. PATIENT, LEVEL III Diagnosis: Pain in left foot[ICD10: M79.672] Diagnosis: Rash and other nonspecific skin eruption[ICD10: R21] Diagnosis: Candidiasis of vulva and vagina[ICD10: B37.3] Diagnosis: Localized edema[ICD10: R60.0] Diagnosis: Dyspnea, unspecified[ICD10: R06.00] Gloria Hess MD, [facility] CPT- 4: 94181 06/07/2017 27014 EST. PATIENT, LEVEL III Diagnosis: Low back pain[ICD10: M54.5] Diagnosis: Sacroiliitis, not elsewhere classified[ICD10: M46.1] Diagnosis: Pain in left foot[ICD10: M79.672] Diagnosis: VACCIN FOR INFLUENZA[ICD10: Z23] Gloria Hess MD, [facility] CPT-4: 00234 04/24/2017 05306 EST. PATIENT, LEVEL III Diagnosis: Acute suppurative otitis media without spontaneous rupture of ear drum, right ear[ICD10: H66.001] Diagnosis: Other allergic rhinitis[ICD10: J30.89] Gloria Hess MD, [facility] CPT- 4: 57913 01/09/2017 [id number] EST. PATIENT, LEVEL IV Diagnosis: Candidiasis of vulva and vagina[ICD10: B37.3] Diagnosis: Type 2 diabetes mellitus with hyperglycemia[ICD10: E11.65] Gloria Hess MD, [facility] CPT-4: 18421 10/30/2016 [id number] EST. PATIENT, LEVEL III Diagnosis: Candidiasis of vulva and vagina[ICD10: B37.3] Diagnosis: Type 2 diabetes mellitus with hyperglycemia[ICD10: E11.65] Gloria Hess MD, [facility] CPT-4: 17802 10/09/2016 11450 EST. PATIENT, LEVEL IV Diagnosis: Umbilical hernia without obstruction or gangrene[ICD10: K42.9] Gloria Hess MD, [facility] CPT-4: 70537 09/12/2016 [id number] EST. PATIENT, LEVEL III Diagnosis: Epigastric pain[ICD10: R10.13] Diagnosis: Candidiasis of vulva and vagina[ICD10: B37.3] Diagnosis: Type 2 diabetes mellitus with hyperglycemia[ICD10: E11.65] Gloria Hess MD, [facility] CPT-4: 77741 09/05/2016 71727 EST. PATIENT, LEVEL III Diagnosis: Acute laryngopharyngitis[ICD10: J06.0] Diagnosis: Other allergic rhinitis[ICD10: J30.89] Gloria Hess MD, [facility] CPT- 4: 98472 06/16/2016 88467 EST. PATIENT, LEVEL III Diagnosis: Type 2 diabetes mellitus with hyperglycemia[ICD10: E11.65] Diagnosis: Other obesity due to excess calories[ICD10: E66.09] Gloria Hess MD, [facility] CPT-4: 92223 06/13/2016 44795 EST. PATIENT, LEVEL III Diagnosis: Type 2 diabetes mellitus with hyperglycemia[ICD10: E11.65] Diagnosis: Other obesity due to excess calories[ICD10: E66.09] Gloria Hess MD, [facility] CPT-4: 11258 05/19/2016 67393 EST. PATIENT, LEVEL III Diagnosis: Type 2 diabetes mellitus with hyperglycemia[ICD10: E11.65] Diagnosis: Other obesity due to excess calories[ICD10: E66.09] Gloria Hess MD, [facility] CPT-4: 45886 05/08/2016 47392 EST. PATIENT, LEVEL III Diagnosis: Type 2 diabetes mellitus without complications[ICD10: E11.9] Gloria Hess MD, [facility] CPT-4: 49843 05/05/2016 88563 EST. PATIENT, LEVEL III Diagnosis: Pain in right shoulder[ICD10: M25.511] Gloria Hess MD, [facility] CPT- 4: 02275 04/10/2016 45841 EST. PATIENT, LEVEL III Diagnosis: Pain in right shoulder[ICD10: M25.511] Diagnosis: Other muscle spasm[ICD10: M62.838] Diagnosis: Type 2 diabetes mellitus without complications[ICD10: E11.9] Gloria Hess MD, [facility] CPT-4: 72909 04/06/2016 24074 EST. PATIENT, LEVEL IV Diagnosis: Acute bronchitis due to other specified organisms[ICD10: J20.8] Diagnosis: Other acute sinusitis[ICD10: J01.80] Diagnosis: Acne vulgaris[ICD10: L70.0] Diagnosis: Morbid (severe) obesity due to excess calories[ICD10: E66.01] Gloria Hess MD, [facility] CPT-4: 25164 03/08/2016 35134 EST. PATIENT, LEVEL IV Diagnosis: Other acute sinusitis[ICD10: J01.80] Diagnosis: Localized enlarged lymph nodes[ICD10: R59.0] Gloria Hess MD, [facility] CPT-4: 85119 02/28/2016 86189 EST. PATIENT, LEVEL III Diagnosis: Type 2 diabetes mellitus without complications[ICD10: E11.9] Gloria Hess MD, [facility] CPT-4: 26974 01/18/2016 (38869) PREV VISIT EST AGE 40-64 Diagnosis: Encounter for gynecological examination (general) (routine) without abnormal findings[ICD10: Z01.419] Diagnosis: Excessive and frequent menstruation with irregular cycle[ICD10: N92.1] Gloria Hess MD, [facility] CPT-4: 38336 12/23/2015 55317 EST. PATIENT, LEVEL III Diagnosis: Type 2 diabetes mellitus without complications[ICD10: E11.9] Gloria Hess MD, [facility] CPT-4: 24199 12/16/2015 57669 EST. PATIENT, LEVEL III Diagnosis: Type 2 diabetes mellitus without complications[ICD10: E11.9] Diagnosis: Other obesity due to excess calories[ICD10: E66.09] Gloria Hess MD, [facility] CPT-4: 04177 11/11/2015 41470 EST. PATIENT, LEVEL III Diagnosis: Type 2 diabetes mellitus without complications[ICD10: E11.9] Diagnosis: Other obesity due to excess calories[ICD10: E66.09] Gloria Hess MD, [facility] CPT-4: 44716 10/27/2015 16573 EST. PATIENT, LEVEL III Diagnosis: Type 2 diabetes mellitus without complications[ICD10: E11.9] Diagnosis: Other obesity due to excess calories[ICD10: E66.09] Diagnosis: Other insomnia[ICD10: G47.09] Gloria Hess MD, [facility] CPT-4: 35211 10/13/2015 22440 EST. PATIENT, LEVEL IV Diagnosis: Acute recurrent maxillary sinusitis[ICD10: J01.01] Diagnosis: Allergic rhinitis due to pollen[ICD10: J30.1] Diagnosis: Other obesity due to excess calories[ICD10: E66.09] Gloria Hess MD, [facility] CPT-4: 34323 10/05/2015 08320 EST. PATIENT, LEVEL IV Diagnosis: Polycystic ovarian syndrome[ICD10: E28.2] Diagnosis: Other skin changes[ICD10: R23.8] Diagnosis: Other abnormal glucose[ICD10: R73.09] Gloria Hess MD, [facility] CPT- 4: 02211 09/01/2015 07712 EST. PATIENT, LEVEL IV Diagnosis: Acute recurrent maxillary sinusitis[ICD10: J01.01] Diagnosis: Morbid (severe) obesity due to excess calories[ICD10: E66.01] Diagnosis: Essential (primary) hypertension[ICD10: I10] Diagnosis: Allergic rhinitis due to pollen[ICD10: J30.1] Gloria Hess MD, [facility] CPT-4: 42945 08/20/2015 (44699) OFFICE VISIT, NEW - LEVEL 4 Diagnosis: Essential (primary) hypertension[ICD10: I10] Diagnosis: Obstructive sleep apnea (adult) (pediatric)[ICD10: G47.33] Diagnosis: Other insomnia[ICD10: G47.09] Diagnosis: Snoring[ICD10: R06.83] Diagnosis: Morbid (severe) obesity due to excess calories[ICD10: E66.01] Gloria Hess MD, [facility] CPT-4: 50786 08/03/2015 Plan of Care Planned Activity Notes [...] acute concerns. 08/06/2018 Appointment: Gloria Scott WPtel: [address] [place], [place] [id number] (30 min) [facility] 08/06/2018 Patient Education: Patient Medication Summary Completed 08/06/2018 Visit Plan: incision - healing well - Wound Instructions - Pt was instructed to keep the wound clean, wash with antibacterial soap, use triple antibiotic ointment, call if redness, pustular drainage, or any other a cute concerns. Hidradenitis suppurativa - will refer to dermatology. 07/22/2018 Appointment: Gloria Scott WPtel: [phone] [facility] (30 min) Complex 07/22/2018 Patient Education: Patient Medication Summary Completed 07/22/2018 Visit Plan: Hidradenitis suppurativa - post incision - wound healing well - continue to monitor Wound Instructions - Pt was instructed to keep the wound clean, wash with antibacterial soap, use triple antibiotic oi ntment, call if redness, pustular drainage, or any other acute concerns. 07/18/2018 Appointment: Gloria Scott WPtel: [phone] [facility] (30 min) Complex 07/18/2018 Patient Education: Patient Medication Summary Completed 07/18/2018 Referral: Roni Roberts pt will be notified by there office to schedule Initiated 07/03/2018 Care Plan: Referral Order SNOMED-CT : [id number] Pending 07/01/2018 Visit Plan: Abscess/Cellulitis - The [...] stomach pain. 06/28/2018 Appointment: Gloria Scott WPtel: [phone] [facility] (30 min) Complex 06/28/2018 Patient Education: Patient Medication Summary Completed 06/28/2018 Visit Plan: Cellulitis-right hvinea-wxuhoadv-jgo bactroban ointment until healed completely-call with any concerns 06/17/2018 Appointment: [id number] [place] (15 min) Moderate 06/17/2018 Patient Education: [...] warmth, discharge. 06/05/2018 Appointment: Gloria Scott WPtel: [address] [place], [place] [phone] [place] (30 min) Complex 06/05/2018 Patient Education: Patient Medication Summary Completed 06/05/2018 Patient Education: Diabetes Completed 06/05/2018 Referral: Jesus Darby [facility]66[facility] Referral Initiated 04/19/2018 Care Plan: Referral Order SNOMED-CT : [id number] Pending 03/27/2018 Visit Plan: Esophageal Reflux - [...] allergy spray. 03/26/2018 Appointment: Gloria Scott WPtel: [facility] [place] (15 min) Moderate 03/26/2018 Patient Education: Patient Medication Summary Completed 03/26/2018 Appointment: Gloria Scott WPtel: [address] [place], [place] [phone] [place] (15 min) Moderate 03/25/2018 Visit Plan: [...] and bandaids. 03/14/2018 Appointment: Gloria Scott WPtel: [address] [place], [place] [id number] (15 min) Moderate 03/14/2018 Patient Education: Patient [...] improve 03/07/2018 Appointment: Gloria Scott WPtel: [phone] [facility]66[facility] (15 min) Moderate 03/07/2018 Patient [...] worsen. 02/19/2018 Appointment: Gloria Scott WPtel: [phone] [facility] (15 min) Moderate 02/19/2018 Patient [...] discharge. 01/08/2018 Appointment: Gloria Scott WPtel: [phone] [facility] [place] (30 min) Complex 01/08/2018 Patient Education: [...] worsen. 09/05/2017 Appointment: Gloria Scott WPtel: [phone] (15 min) Moderate 09/05/2017 Patient Education: [...] RX 06/07/2017 Appointment: Gloria Scott WPtel: [phone] [place] [id number] (15 min) Moderate 06/07/2017 Patient [...] of injection. 04/24/2017 Appointment: Gloria Scott WPtel: [address] [place], [place] [phone] (30 min) Complex 04/24/2017 Patient Education: Patient Medication Summary Completed 04/24/2017 Appointment: Gloria Scott WPtel: [address] [place], [place] [phone] (30 min) Complex 03/09/2017 Appointment: Gloria Scott WPtel: [address] [place], [place] [address] (30 min) Complex 02/13/2017 [...] allergy spray. 01/09/2017 Appointment: Gloria Scott WPtel: [facility] [place] (10 min) Simple 01/09/2017 Patient Education: Patient Medication Summary Completed 01/09/2017 Patient Education: Obesity Completed 01/09/2017 Visit Plan: Vaginal candidiasis - will send RX - pt is to notify clinic if symptoms do not improve, if they worsen, or with any questions or concerns. Diabetes Mellitus - Uncontrolled - Will refer to technical developer - I have recommended for the patient [...] Mellitus - Uncontrolled - Will refer to technical developer - I have recommended for the patient [...] glucose control. 10/09/2016 Appointment: Gloria Scott WPtel: [facility] (30 min) Complex 10/09/2016 Patient Education: Patient Medication Summary Completed 10/09/2016 Patient Education: Obesity Completed 10/09/2016 Referral: Roni Roberts Referral Completed 09/18/2016 Care Plan: CT ABD & PELV W/CONTRAST LOINC : 89474-1 Pending 09/13/2016 Care Plan: Referral Order SNOMED-CT : [id number] Pending 09/13/2016 Visit Plan: Ongoing abdominal pain/hernia - will send RX - will refer - pt is to notify clinic if symptoms do not improve, if they worsen, or with any questions or concerns. 09/12/2016 Appointment: Gloria Scott [facility]Ptel[phone] [place] [place] (30 min) Complex 09/12/2016 Patient Education: Patient Medication Summary Completed 09/12/2016 Patient Education: Obesity Completed 09/12/2016 Care Plan: Referral Order SNOMED-CT : [id number] Pending 09/12/2016 Visit Plan: Ongoing abdominal/epigastric pain [...] glucose control. 09/05/2016 Appointment: Gloria Scott WPtel: [facility] [place] ([place] min) Complex 09/05/2016 Patient Education: Patient [...] spray. 06/16/2016 Appointment: Gloria Scott WPtel: [phone] [facility] [place] [place] (10 min) Simple 06/16/2016 Patient Education: [...] weight check. 06/13/2016 Appointment: Gloria Scott WPtel: [phone] [place] [place] (30 min) Complex 06/13/2016 Patient Education: Patient Medication Summary Completed 06/13/2016 Patient Education: Obesity Completed 06/13/2016 Appointment: Gloria Scott WPtel: [phone] [facility] [place] [place] (30 min) Complex 06/08/2016 Visit Plan: [...] check. 05/19/2016 Appointment: Tamy Lugo WPtel: [phone] [facility] [phone] [place] (30 min) Complex 05/19/2016 Patient Education: [...] weight check. 05/08/2016 Appointment: Gloria Scott WPtel: [phone] [facility] (15 min) Moderate 05/08/2016 Patient Education: [...] the morning. 05/05/2016 Appointment: Tamy Lugo WPtel: [phone] [phone] [place] (15 min) Moderate 05/05/2016 Patient Education: Patient Medication Summary Completed 05/05/2016 Patient Education: Obesity Completed 05/05/2016 Care Plan: Comp Metabolic Pending 05/05/2016 App[facility]ment[phone] [facility] 04/17/2016 Appointment: Injection 04/13/2016 Patient Education: Patient Medication Summary Completed 04/13/2016 Visit Plan: Right shoulder pain - will refer to PT - The pt is to use prn antiinflammatories to manage acute pain. The patient is to call the office if the pain is worsening or does not improve. 04/10/2016 Appointment: Gloria Scott WPtel: [phone] [facility] (30 min) Complex 04/10/2016 Patient Education: [...] glucose control. 04/06/2016 Appointment: Gloria Scott [facility]Ptel: [phone] [place] (15 min) Moderate 04/06/2016 Patient Education: Patient [...] [place] 02/28/2016 Appointment: Gloria Scott WPtel: [phone] (30 min) Complex 02/28/2016 Patient Education: Patient Medication Summary Completed 02/28/2016 Patient Education: Obesity Completed 02/28/2016 Appointment: Gloria Scott WPtel: [phone] [facility] [place] [place] (15 min) Moderate 01/31/2016 Visit Plan: [...] Scott [facility]Ptel: [phone] [facility] 12/23/2015 Patient Education: Patient Medication [...] %Hba1C ADD TO BLOOD IN THE LAB. [facility] : 47829-7 Pending 08/13/2015 Visit Plan: Hypertension - uncontrolled [...] Roni Roberts Referral Com[facility] [place] Ref[facility] Initiated Referral: Roni Roberts Referral [...] Mellitus - Uncontrolled - Will refer to technical developer - I have recommended for the patient [...] Mellitus - Uncontrolled - Will refer to technical developer - I have recommended for the patient [...] potassium 10 meq daily x 3 YURI hosirais Gladys over the counter . Rash - [...] with any questions or concerns. . Cellulitis-right zudpxy-lwmpdwhz-vwr bactroban ointment until healed completely-call with any [...]
--- OUTSIDE RECORDS SUMMARY | 2018-12-17 03:32 | XMS REPORT | CCD ---
Author Author Gloria Scott MD, [facility] Address [address] [place] [address] Phone Care Team Providers Care Safety Sitter Name Role Phone PP Unavailable CCM Unavailable Summary Purpose Interface Exchange Insurance Providers Payer name Policy type / Coverage type Covered constitution party ID Effective Begin Date Effective End Date [facility] Commercial Insurance [id number] Unknown Unknown Family history Father Diagnosis Age At Onset Hypertension Unknown Arthritis Unknown Mother Diagnosis Age At Onset Arthritis Unknown Hyperlipidemia Unknown Daughter Diagnosis Age At Onset Asthma Unknown Social History Social History Element Codes Description Effective Dates Marital status Unknown Darin 08/03/2015 Number of children Unknown 1 08/03/[address]: 9711480 Quit less than 5 years ago 08/03/2015 [...] Codes Condition Status Onset Date Resolved Date Hidradenitis suppurativa ICD-9: 705.83 ICD-10: L73.2 Active [...] Problems Condition Codes Effective Dates Condition Status Hidradenitis suppurativa ICD-9: 705.83 ICD-10: L73.2 07/22/2018 [...] Start Date Stop Date Status Fill Instructions Lyrica 100 mg capsule RxNorm: 183542 1 Capsule(s) PO TID 07/25/2018 10/16/2018 Active Lyrica 100 mg capsule RxNorm: 302730 1 Capsule(s) PO TID 07/25/2018 07/24/2018 Inactive mupirocin 2 % topical ointment RxNorm: 160580 1 Application TOP daily 07/22/2018 07/28/2018 Active ibuprofen 800 mg tablet RxNorm: 059446 1 Tablet(s) PO TID as needed for pain 07/22/2018 07/31/2018 Active hydrocodone 7.5 mg-acetaminophen 325 mg tablet RxNorm: 179171 1 Tablet(s) PO Q4H as needed 07/18/2018 08/16/2018 Active promethazine 25 mg tablet RxNorm: 369846 TABLET(S) TAKE ONE TABLET BY MOUTH EVERY 6 TO 8 HOURS NEEDED 07/05/2018 No Stop Date Active hyoscyamine 0.125 mg sublingual tablet RxNorm: 5528862 1 Tablet(s) SL TID as needed diarrhea 06/28/2018 07/07/2018 Inactive mupirocin 2 % topical ointment RxNorm: 769263 1 Application TOP BID 06/17/2018 06/26/2018 Inactive mupirocin 2 % topical ointment RxNorm: 688147 1 Application TOP BID 06/05/2018 No Stop Date Active Keflex 500 mg capsule RxNorm: 779923 1 Capsule(s) PO TID 06/05/2018 06/11/2018 Inactive ceftriaxone 500 mg solution for injection RxNorm: 8810488 Inj 06/05/2018 06/05/2018 Inactive Diflucan 150 mg tablet RxNorm: 035164 1 Tablet(s) PO daily 06/05/2018 07/02/2018 Inactive Protonix 40 mg tablet,delayed release RxNorm: 112697 1 Tablet(s) PO BID x 1 week then daily 03/26/2018 No Stop Date Active Phenergan with Codeine Syrup RxNorm: 5-10 ML PO QID as needed cough 03/19/2018 No Stop Date Active promethazine 25 mg tablet RxNorm: 478721 Tablet(s) TAKE ONE TABLET BY MOUTH EVERY 6 TO 8 HOURS NEEDED 03/15/2018 07/04/2018 Inactive Singulair 10 mg tablet RxNorm: 269537 1 Tablet(s) PO daily 03/14/2018 04/12/2018 Inactive metoprolol succinate ER 100 mg tablet,extended release 24 hr RxNorm: 549812 1 Tablet(s) PO daily 03/07/2018 04/05/2018 Inactive Zithromax Z-Rashid 250 mg tablet RxNorm: 865172 1 Tablet(s) PO UD 03/07/2018 03/07/2018 Inactive prednisone 20 mg tablet RxNorm: 686591 2 Tablet(s) PO daily 03/07/2018 03/11/2018 Inactive albuterol sulfate 2.5 mg/3 mL (0.083 %) solution for nebulization RxNorm: 506477 3 Milliliter(s) INH Q4-6H as needed dyspnea 02/19/2018 No Stop Date Active Diflucan 150 mg tablet RxNorm: 676542 Tablet(s) TAKE ONE TABLET BY MOUTH ONCE DAILY FOR 7 DAYS THEN TAKE ONE TABLET BY MOUTH ONCE A WEEK 02/19/2018 06/04/2018 Inactive Levaquin 500 mg tablet RxNorm: 219906 1 Tablet(s) PO daily 02/19/2018 02/25/2018 Inactive prednisone 20 mg tablet RxNorm: 233871 2 Tablet(s) PO daily 02/19/2018 02/23/2018 Inactive Kenalog 40 mg/mL suspension for injection RxNorm: 8330527 15. Milliliter(s) Inj 02/19/2018 02/19/2018 Inactive hydrocodone 7.5 mg-acetaminophen 325 mg tablet RxNorm: 283108 1 Tablet(s) PO Q4H as needed 02/05/2018 03/06/2018 Inactive clindamycin HCl 300 mg capsule RxNorm: 457040 1 Capsule(s) PO TID 01/09/2018 01/15/2018 Inactive promethazine 25 mg tablet RxNorm: 113946 Tablet(s) TAKE ONE TABLET BY MOUTH EVERY 6 TO 8 HOURS NEEDED 01/08/2018 03/14/2018 Inactive Diflucan 150 mg tablet RxNorm: 535766 Tablet(s) TAKE ONE TABLET BY MOUTH ONCE DAILY FOR 7 DAYS THEN TAKE ONE TABLET BY MOUTH ONCE A WEEK 01/08/2018 02/18/2018 Inactive Bactrim DS 800 mg-160 mg tablet RxNorm: 233390 1 Tablet(s) PO BID 01/08/2018 01/17/2018 Inactive prednisone 20 mg tablet RxNorm: 707323 2 Tablet(s) PO daily 11/23/2017 11/27/2017 Inactive Zithromax Z-Rashid 250 mg tablet RxNorm: 553437 1 Tablet(s) PO UD 09/05/2017 02/11/2018 Inactive Kenalog 40 mg/mL suspension for injection RxNorm: 7519990 Milliliter(s) Inj 09/05/2017 09/05/2017 Inactive prednisone 20 mg tablet RxNorm: 854983 2 Tablet(s) PO daily 09/05/2017 09/09/2017 Inactive ibuprofen 800 mg tablet RxNorm: 477845 1 Tablet(s) PO TID 07/27/2017 02/21/2018 Inactive metoprolol succinate ER 100 mg tablet,extended release 24 hr RxNorm: 812414 TAKE ONE TABLET BY MOUTH ONCE DAILY 06/20/2017 No Stop Date Active alprazolam 0.5 mg tablet RxNorm: 881881 1 Tablet(s) PO Q8 as needed 06/20/2017 07/09/2017 Inactive Zithromax Z-Rashid 250 mg tablet RxNorm: 531065 1 Tablet(s) PO UD 06/15/2017 07/25/2017 Inactive Xopenex HFA 45 mcg/actuation aerosol inhaler RxNorm: 805873 INHALE ONE PUFF INTO LUNGS NEEDED 06/13/2017 07/14/2017 Inactive Xopenex 1.25 mg/3 mL solution for nebulization RxNorm: 007055 Milliliter(s) USE ONE VIAL IN NEBULIZER THREE TIMES DAILY 06/08/2017 No Stop Date Active Flovent HFA 44 mcg/actuation aerosol inhaler RxNorm: 287628 2 Puff(s) INH BID 06/08/2017 No Stop Date Active potassium chloride ER 10 mEq tablet,extended release RxNorm: 248128 1 Tablet(s) PO daily 06/08/2017 06/10/2017 Inactive Lasix 20 mg tablet RxNorm: 043854 1 Tablet(s) PO daily 06/08/2017 06/10/2017 Inactive Xopenex HFA 45 mcg/actuation aerosol inhaler RxNorm: 507105 INHALE ONE PUFF INTO LUNGS NEEDED 06/08/2017 06/12/2017 Inactive triamcinolone acetonide 0.025 % topical cream RxNorm: 2740958 1 Application TOP BID 06/07/2017 No Stop Date Active ibuprofen 800 mg tablet RxNorm: 832773 1 Tablet(s) PO TID 06/07/2017 07/06/2017 Inactive cyclobenzaprine 5 mg tablet RxNorm: 693160 1/2 Tablet(s) PO TID as needed muscle spasms 05/28/2017 06/01/2017 Inactive Diflucan 150 mg tablet RxNorm: 419549 TAKE ONE TABLET BY MOUTH ONCE DAILY FOR 7 DAYS THEN TAKE ONE TABLET BY MOUTH ONCE A WEEK 05/28/2017 01/07/2018 Inactive bumetanide 1 mg tablet RxNorm: 218677 TAKE ONE TABLET BY MOUTH TWICE DAILY 05/25/2017 No Stop Date Active meloxicam 7.5 mg tablet RxNorm: 513071 1 Tablet(s) PO daily as needed 05/25/2017 07/23/2017 Inactive Xopenex 1.25 mg/3 mL solution for nebulization RxNorm: 282160 USE ONE VIAL IN NEBULIZER THREE TIMES DAILY 05/25/2017 06/07/2017 Inactive Protonix 40 mg tablet,delayed release RxNorm: 403462 1 Tablet(s) PO daily 05/08/2017 11/03/2017 Inactive Protonix 40 mg tablet,delayed release RxNorm: 461904 1 Tablet(s) PO daily 05/04/2017 05/03/2017 Inactive Protonix 40 mg tablet,delayed release RxNorm: 968330 1 Tablet(s) PO daily 05/04/2017 05/07/2017 Inactive meloxicam 7.5 mg tablet RxNorm: 991197 1 Tablet(s) PO daily as needed 04/25/2017 04/24/2017 Inactive meloxicam 7.5 mg tablet RxNorm: 337823 1 Tablet(s) PO daily as needed 04/25/2017 05/04/2017 Inactive promethazine 25 mg tablet RxNorm: 782763 TAKE ONE TABLET BY MOUTH EVERY 6 TO 8 HOURS NEEDED 04/25/2017 01/07/2018 Inactive Kenalog 40 mg/mL suspension for injection RxNorm: 5114409 1 Milliliter(s) Inj 04/24/2017 04/24/2017 Inactive cyclobenzaprine 5 mg tablet RxNorm: 929912 1/2 Tablet(s) PO TID as needed muscle spasms 04/24/2017 04/28/2017 Inactive Xopenex HFA 45 mcg/actuation aerosol inhaler RxNorm: 320552 INHALE ONE PUFF INTO LUNGS NEEDED 03/30/2017 04/14/2017 Inactive Humalog KwikPen 200 unit/mL (3 mL) subcutaneous RxNorm: 8614708 INJECT 35 UNITS SUBCUTANEOUSLY BEFORE MEAL(S) 03/30/2017 06/05/2017 Inactive promethazine 25 mg tablet RxNorm: 891247 Tablet(s) TAKE ONE TABLET BY MOUTH EVERY 6 TO 8 HOURS NEEDED 03/12/2017 03/26/2017 Inactive cyclobenzaprine 10 mg tablet RxNorm: 263599 TAKE ONE TABLET BY MOUTH ONCE DAILY NEEDED 03/06/2017 03/15/2017 Inactive lidocaine 5 % topical patch RxNorm: 6425200 USE ONE PATCH TOPICALLY DAILY. 12 HOURS ON AND THEN 12 HOURS OFF. 03/06/2017 03/15/2017 Inactive Humalog KwikPen 200 unit/mL (3 mL) subcutaneous RxNorm: 4914650 INJECT 35 UNITS SUBCUTANEOUSLY BEFORE MEAL(S) 02/20/2017 03/25/2017 Inactive promethazine 25 mg tablet RxNorm: 616406 Tablet(s) TAKE ONE TABLET BY MOUTH EVERY 6 TO 8 HOURS NEEDED 02/20/2017 03/06/2017 Inactive Xopenex HFA 45 mcg/actuation aerosol inhaler RxNorm: 226693 INHALE ONE PUFF INTO LUNGS NEEDED 02/20/2017 03/07/2017 Inactive bumetanide 1 mg tablet RxNorm: 418440 TAKE ONE TABLET BY MOUTH TWICE DAILY 02/15/2017 05/15/2017 Inactive bumetanide 1 mg tablet RxNorm: 514112 TAKE ONE TABLET BY MOUTH TWICE DAILY 01/15/2017 02/13/2017 Inactive metoprolol succinate ER 100 mg tablet,extended release 24 hr RxNorm: 426723 TAKE ONE TABLET BY MOUTH ONCE DAILY 01/11/2017 06/19/2017 Inactive Zithromax Z-Rashid 250 mg tablet RxNorm: 893865 1 Tablet(s) PO UD 01/09/2017 03/13/2017 Inactive meclizine 25 mg tablet RxNorm: 190468 1 Tablet(s) PO TID as needed 01/09/2017 01/18/2017 Inactive Kenalog 40 mg/mL suspension for injection RxNorm: 7104913 Milliliter(s) Inj 01/09/2017 01/09/2017 Inactive promethazine 25 mg tablet RxNorm: 323037 Tablet(s) TAKE ONE TABLET BY MOUTH EVERY 6 TO 8 HOURS NEEDED 12/29/2016 01/12/2017 Inactive Voltaren 1 % topical gel RxNorm: 325458 APPLY TOPICALLY TO AFFECTED AREA TWICE DAILY 12/25/2016 01/13/2017 Inactive cyclobenzaprine 10 mg tablet RxNorm: 907035 TAKE ONE TABLET BY MOUTH NEEDED 12/22/2016 12/31/2016 Inactive lidocaine 5 % topical patch RxNorm: 8799342 USE ONE PATCH TOPICALLY DAILY. 12 HOURS ON AND THEN 12 HOURS OFF. 12/22/2016 12/31/2016 Inactive hydrocodone 7.5 mg-acetaminophen 325 mg tablet RxNorm: 529973 1 Tablet(s) PO Q4H as needed 12/22/2016 01/20/2017 Inactive bumetanide 1 mg tablet RxNorm: 763115 TAKE ONE TABLET BY MOUTH TWICE DAILY 12/17/2016 01/14/2017 Inactive promethazine 25 mg tablet RxNorm: 904348 Tablet(s) TAKE ONE TABLET BY MOUTH EVERY 6 TO 8 HOURS NEEDED 11/16/2016 12/15/2016 Inactive spironolactone 50 mg tablet RxNorm: 371231 TAKE ONE TABLET BY MOUTH TWICE DAILY 11/15/2016 05/13/2017 Inactive Basaglar KwikPen 100 unit/mL (3 mL) subcutaneous RxNorm: 0881433 Unit(s) INJECT 35 UNITS IN THE MORNING AND 50 UNITS IN THE EVENING SUBCUTANEOUSLY 11/15/2016 03/14/2017 Inactive cyclobenzaprine 10 mg tablet RxNorm: 365096 TAKE ONE TABLET BY MOUTH NEEDED 11/15/2016 12/04/2016 Inactive lidocaine 5 % topical patch RxNorm: 6724434 1 Patch TOP daily . 12 HOURS ON, 12 HOURS OFF 11/15/2016 12/04/2016 Inactive lidocaine 4 % topical patch RxNorm: 3488127 1 Patch TOP on for 12 hours and off for 12 hours 11/14/2016 11/14/2016 Inactive promethazine 25 mg tablet RxNorm: 442603 TAKE ONE TABLET BY MOUTH EVERY 6 TO 8 HOURS NEEDED 11/14/2016 11/15/2016 Inactive Basaglar KwikPen 100 unit/mL (3 mL) subcutaneous RxNorm: 9055597 INJECT 35 UNITS IN THE MORNING AND 50 UNITS IN THE EVENING SUBCUTANEOUSLY 11/14/2016 11/14/2016 Inactive cyclobenzaprine 10 mg tablet RxNorm: 496706 TAKE ONE TABLET BY MOUTH NEEDED 11/14/2016 11/14/2016 Inactive spironolactone 50 mg tablet RxNorm: 150426 TAKE ONE TABLET BY MOUTH TWICE DAILY 11/14/2016 11/14/2016 Inactive Diflucan 150 mg tablet RxNorm: 104842 1 Tablet(s) PO as needed prophylactic after sexual intercourse 10/30/2016 No Stop Date Active hydrocodone 7.5 mg-acetaminophen 325 mg tablet RxNorm: 153506 1 Tablet(s) PO Q4H as needed 10/30/2016 11/28/2016 Inactive clotrimazole 100 mg vaginal tablet RxNorm: 086323 1 Tablet(s) VAG QW 10/30/2016 11/28/2016 Inactive Humalog KwikPen 200 unit/mL (3 mL) subcutaneous RxNorm: 1427125 35 Unit(s) SQ AC 10/30/2016 02/19/2017 Inactive QS 30 day supply Bydureon 2 mg/0.65 mL subcutaneous pen injector RxNorm: 6406046 2 Milligram(s) SQ QW 10/30/2016 11/28/2016 Inactive Basaglar KwikPen 100 unit/mL (3 mL) subcutaneous RxNorm: 0480849 Unit(s) SQ 35 units in the morning and 50 units in the evening 10/30/2016 11/13/2016 Inactive QS 30 day supply cyclobenzaprine 10 mg tablet RxNorm: 038212 TAKE ONE TABLET BY MOUTH NEEDED 10/27/2016 11/05/2016 Inactive Diflucan 150 mg tablet RxNorm: 288773 1 Tablet(s) PO daily x 7 days then once a week 10/27/2016 10/29/2016 Inactive promethazine 25 mg tablet RxNorm: 228411 TAKE ONE TABLET BY MOUTH EVERY 6 TO 8 HOURS NEEDED 10/27/2016 11/10/2016 Inactive Diflucan 150 mg tablet RxNorm: 150261 1 Tablet(s) PO daily x 7 days then once a week 10/09/2016 10/15/2016 Inactive Diflucan 150 mg tablet RxNorm: 607392 1 Tablet(s) PO daily 09/20/2016 09/26/2016 Inactive Cipro 500 mg tablet RxNorm: 798164 1 Tablet(s) PO BID 09/12/2016 09/21/2016 Inactive Flagyl 500 mg tablet RxNorm: 197412 1 Tablet(s) PO TID 09/12/2016 09/21/2016 Inactive Diflucan 150 mg tablet RxNorm: 655296 1 Tablet(s) PO daily 09/06/2016 09/12/2016 Inactive hydrocodone 7.5 mg-acetaminophen 325 mg tablet RxNorm: 692080 1 Tablet(s) PO Q4H as needed 07/12/2016 08/10/2016 Inactive Xopenex 1.25 mg/3 mL solution for nebulization RxNorm: 239308 3 Milliliter(s) INH TID 06/16/2016 05/24/2017 Inactive cefdinir 300 mg capsule RxNorm: 627659 1 Capsule(s) PO BID 06/16/2016 06/25/2016 Inactive Mobic 7.5 mg tablet RxNorm: 210993 1 Tablet(s) PO daily 06/16/2016 06/25/2016 Inactive Levaquin 500 mg tablet RxNorm: 093948 1 Tablet(s) PO daily 06/16/2016 06/22/2016 Inactive cyclobenzaprine 10 mg tablet RxNorm: 873957 1 Tablet(s) PO PRN as needed 06/14/2016 06/23/2016 Inactive promethazine 25 mg tablet RxNorm: 554531 TAKE ONE TABLET BY MOUTH EVERY 6 TO 8 HOURS NEEDED 06/14/2016 06/28/2016 Inactive Xopenex HFA 45 mcg/actuation aerosol inhaler RxNorm: 445293 1 Puff(s) INH PRN 06/14/2016 07/15/2016 Inactive pen needle, diabetic 32 gauge x 5/16" RxNorm: 1 use Miscellaneous AC & HS 06/13/2016 No Stop Date Active QS 30 day supply Humalog KwikPen 200 unit/mL (3 mL) subcutaneous RxNorm: 7132877 10 Unit(s) SQ AC 06/13/2016 10/29/2016 Inactive QS 30 day supply Basaglar KwikPen 100 unit/mL (3 mL) subcutaneous RxNorm: 7817500 22 units in the morning and 35 in the evening. Unit(s) SQ 06/13/2016 10/29/2016 Inactive QS 30 day supply Tivorbex 20 mg capsule RxNorm: 6706085 1 Capsule(s) PO TID as needed 06/13/2016 06/13/2016 Inactive metoprolol succinate ER 100 mg tablet,extended release 24 hr RxNorm: 586603 TAKE ONE TABLET BY MOUTH ONCE DAILY 06/13/2016 10/10/2016 Inactive hydrocodone 7.5 mg-acetaminophen 325 mg tablet RxNorm: 514453 1 Tablet(s) PO Q4H as needed 06/13/2016 07/11/2016 Inactive Voltaren 1 % topical gel RxNorm: 158727 APPLY TOPICALLY TO AFFECTED AREA TWICE DAILY 05/30/2016 07/08/2016 Inactive alprazolam 0.5 mg tablet RxNorm: 189550 1 Tablet(s) PO Q8 as needed 05/19/2016 No Stop Date Active cyclobenzaprine 10 mg tablet RxNorm: 573154 1 Tablet(s) PO PRN as needed 05/19/2016 05/28/2016 Inactive bumetanide 1 mg tablet RxNorm: 882251 TAKE ONE TABLET BY MOUTH TWICE DAILY 05/19/2016 06/17/2016 Inactive Sprintec (28) 0.25 mg-35 mcg tablet RxNorm: 677174 1 Tablet(s) PO UD 05/08/2016 No Stop Date Active Lantus Solostar 100 unit/mL (3 mL) subcutaneous insulin pen RxNorm: 879520 Unit(s) SQ UD 15units qam 30 units qhs 05/08/2016 No Stop Date Active Humalog KwikPen 200 unit/mL (3 mL) subcutaneous RxNorm: 4839372 10 Unit(s) SQ AC 05/08/2016 06/12/2016 Inactive bumetanide 1 mg tablet RxNorm: 270518 TAKE ONE TABLET BY MOUTH TWICE DAILY 04/28/2016 05/18/2016 Inactive Voltaren 1 % topical gel RxNorm: 290465 1 Application TOP BID 04/28/2016 05/07/2016 Inactive cyclobenzaprine 10 mg tablet RxNorm: 673880 1 Tablet(s) PO PRN as needed 04/28/2016 05/07/2016 Inactive hydrocodone 7.5 mg-acetaminophen 325 mg tablet RxNorm: 597015 1 Tablet(s) PO Q4H as needed 04/18/2016 05/16/2016 Inactive Lantus Solostar 100 unit/mL (3 mL) subcutaneous insulin pen RxNorm: 106147 Unit(s) SQ UD 10 units QHS x5 days, if sugars are over 200 increase to 15 units x 5 days, if sugars over 200 increase to 20 units. 04/14/2016 05/07/2016 Inactive lidocaine 4 % topical patch RxNorm: 1277794 1 Patch TOP on for 12 hours and off for 12 hours 04/13/2016 11/13/2016 Inactive Voltaren 1 % topical gel RxNorm: 174265 1 Application TOP BID 04/10/2016 04/27/2016 Inactive metformin ER 500 mg 24 hr tablet,extended release RxNorm: 697160 1 Tablet(s) PO daily 04/06/2016 05/05/2016 Inactive Kenalog 40 mg/mL suspension for injection RxNorm: 1951636 1 Milliliter(s) Inj 04/06/2016 04/06/2016 Inactive cyclobenzaprine 10 mg tablet RxNorm: 653071 1 Tablet(s) PO PRN as needed 04/06/2016 04/27/2016 Inactive WelChol 3.75 gram oral powder packet RxNorm: 065731 1 packet PO daily 04/06/2016 07/04/2016 Inactive alprazolam 0.5 mg tablet RxNorm: 848087 1 Tablet(s) PO Q8 as needed 03/30/2016 06/19/2017 Inactive Levaquin 500 mg tablet RxNorm: 392262 1 Tablet(s) PO daily 03/30/2016 04/05/2016 Inactive metoprolol succinate ER 100 mg tablet,extended release 24 hr RxNorm: 341354 TAKE ONE TABLET BY MOUTH ONCE DAILY 03/16/2016 06/12/2016 Inactive Levaquin 500 mg tablet RxNorm: 328840 1 Tablet(s) PO daily 03/08/2016 03/14/2016 Inactive prednisone 20 mg tablet RxNorm: 468276 2 Tablet(s) PO daily 03/08/2016 03/12/2016 Inactive Xopenex HFA 45 mcg/actuation aerosol inhaler RxNorm: 982089 1 Puff(s) INH PRN 02/28/2016 06/13/2016 Inactive Phenergan with Codeine Syrup RxNorm: 5-10 ML PO QID as needed cough 02/28/2016 03/18/2018 Inactive Kenalog 40 mg/mL suspension for injection RxNorm: 8974022 1 Milliliter(s) Inj 02/28/2016 02/28/2016 Inactive Zithromax Z-Rashid 250 mg tablet RxNorm: 771498 1 Tablet(s) PO UD 02/28/2016 03/27/2016 Inactive alprazolam 0.5 mg tablet RxNorm: 123859 1 Tablet(s) PO Q8 as needed 02/24/2016 06/19/2017 Inactive glipizide 5 mg tablet RxNorm: 603844 1 Tablet(s) PO daily 01/18/2016 05/16/2016 Inactive Actos 15 mg tablet RxNorm: 484936 1 Tablet(s) PO daily 01/18/2016 02/16/2016 Inactive gabapentin 100 mg capsule RxNorm: 365464 1 Capsule(s) PO QHS 01/13/2016 03/12/2016 Inactive gabapentin 100 mg capsule RxNorm: 693529 1 Capsule(s) PO QHS 01/13/2016 01/12/2016 Inactive Bydureon 2 mg/0.65 mL subcutaneous pen injector RxNorm: 1153026 1 Milliliter(s) SQ QW 01/12/2016 01/11/2016 Inactive Bydureon 2 mg/0.65 mL subcutaneous pen injector RxNorm: 0957565 2/0.65ml Milligram(s) SQ QW 01/12/2016 05/16/2016 Inactive Bydureon 2 mg/0.65 mL subcutaneous pen injector RxNorm: 6159145 1 Milliliter(s) SQ QW 01/12/2016 01/11/2016 Inactive bumetanide 1 mg tablet RxNorm: 728788 TAKE ONE TABLET BY MOUTH TWICE DAILY 01/10/2016 04/08/2016 Inactive promethazine 25 mg tablet RxNorm: 244843 Tablet(s) Tablet(s) 1 Tablet(s) PO Q6-8H as needed 12/16/2015 04/13/2016 Inactive promethazine 25 mg tablet RxNorm: 635539 Tablet(s) 1 Tablet(s) PO Q6-8H as needed 12/10/2015 12/15/2015 Inactive Trulicity 0.75 mg/0.5 mL subcutaneous pen injector RxNorm: 3327500 INJECT ONE-HALF ML SUBCUTANEOUSLY ONCE A WEEK 12/10/2015 01/11/2016 Inactive glipizide 5 mg tablet RxNorm: 557424 1 Tablet(s) PO daily 12/10/2015 01/17/2016 Inactive bumetanide 1 mg tablet RxNorm: 691840 TAKE ONE TABLET BY MOUTH TWICE DAILY 12/10/2015 01/08/2016 Inactive promethazine 25 mg tablet RxNorm: 489983 Tablet(s) 1 Tablet(s) PO Q6-8H as needed 11/18/2015 12/09/2015 Inactive promethazine 25 mg tablet RxNorm: 368822 1 Tablet(s) PO Q6-8H as needed 11/16/2015 11/17/2015 Inactive glipizide 5 mg tablet RxNorm: 301915 1/2 Tablet(s) PO daily 11/16/2015 12/15/2015 Inactive promethazine 25 mg tablet RxNorm: 482166 Tablet(s) 1 Tablet(s) PO Q6-8H as needed 11/11/2015 12/10/2015 Inactive metoprolol tartrate 50 mg tablet RxNorm: 922670 1 Tablet(s) PO BID 11/11/2015 02/08/2016 Inactive Trulicity 0.75 mg/0.5 mL subcutaneous pen injector RxNorm: 0055887 .5 Milliliter(s) SQ QW 11/11/2015 01/11/2016 Inactive promethazine 25 mg tablet RxNorm: 350322 1 Tablet(s) PO Q6-8H as needed 10/28/2015 11/10/2015 Inactive nystatin 100,000 unit/gram topical cream RxNorm: 573281 1 Gram(s) TOP BID 10/27/2015 No Stop Date Active alprazolam 0.5 mg tablet RxNorm: 455023 1 Tablet(s) PO Q8 as needed 10/27/2015 03/29/2016 Inactive hydrocodone 7.5 mg-acetaminophen 325 mg tablet RxNorm: 118801 1 Tablet(s) PO Q4H as needed 10/27/2015 11/25/2015 Inactive Trulicity 0.75 mg/0.5 mL subcutaneous pen injector RxNorm: 8804146 .5 Milliliter(s) SQ QW 10/27/2015 11/10/2015 Inactive glipizide 5 mg tablet RxNorm: 658557 1 Tablet(s) PO daily 10/27/2015 11/25/2015 Inactive hydrocodone 7.5 mg-acetaminophen 325 mg tablet RxNorm: 490914 1 Tablet(s) PO Q4H as needed 10/26/2015 10/26/2015 Inactive alprazolam 0.5 mg tablet RxNorm: 319482 1 Tablet(s) PO PRN as needed 10/26/2015 10/26/2015 Inactive promethazine 25 mg tablet RxNorm: 422532 1 Tablet(s) PO Q6-8H as needed 10/26/2015 11/15/2015 Inactive glipizide 5 mg tablet RxNorm: 617741 1/2 Tablet(s) PO daily 10/13/2015 10/26/2015 Inactive cefdinir 300 mg capsule RxNorm: 628291 1 Capsule(s) PO BID 10/05/2015 10/14/2015 Inactive prednisone 20 mg tablet RxNorm: 642219 2 Tablet(s) PO daily 10/05/2015 10/09/2015 Inactive Diflucan 150 mg tablet RxNorm: 937595 1 Tablet(s) PO daily 10/05/2015 10/11/2015 Inactive Invokamet 50 mg-500 mg tablet RxNorm: 6837790 1 Tablet(s) PO daily 10/05/2015 11/03/2015 Inactive alprazolam 0.5 mg tablet RxNorm: 412679 1 Tablet(s) PO PRN as needed 10/01/2015 02/23/2016 Inactive promethazine 25 mg tablet RxNorm: 864201 1 Tablet(s) PO Q6-8H as needed 09/30/2015 10/25/2015 Inactive bumetanide 1 mg tablet RxNorm: 952823 TAKE ONE TABLET BY MOUTH TWICE DAILY 09/30/2015 10/29/2015 Inactive bumetanide 1 mg tablet RxNorm: 508457 TAKE ONE TABLET BY MOUTH TWICE DAILY 09/20/2015 12/18/2015 Inactive bumetanide 1 mg tablet RxNorm: 673583 1 Tablet(s) PO BID 09/20/2015 10/19/2015 Inactive metoprolol succinate ER 100 mg tablet,extended release 24 hr RxNorm: 308136 1 Tablet(s) PO daily 09/16/2015 03/13/2016 Inactive spironolactone 50 mg tablet RxNorm: 732325 1 Tablet(s) PO BID 09/16/2015 03/13/2016 Inactive alprazolam 0.5 mg tablet RxNorm: 405639 1 Tablet(s) PO PRN as needed 09/16/2015 10/25/2015 Inactive hydrocodone 7.5 mg-acetaminophen 325 mg tablet RxNorm: 635316 1 Tablet(s) PO Q4H as needed 09/16/2015 10/25/2015 Inactive Invokamet 50 mg-1,000 mg tablet RxNorm: 2977299 1 Tablet(s) PO daily 09/06/2015 09/05/2015 Inactive Invokamet 50 mg-1,000 mg tablet RxNorm: 4512419 1 Tablet(s) PO daily 09/06/2015 12/04/2015 Inactive promethazine 25 mg tablet RxNorm: 295785 TAKE ONE TABLET BY MOUTH EVERY 6 TO 8 HOURS NEEDED 09/01/2015 09/16/2015 Inactive promethazine 25 mg tablet RxNorm: 902656 1 Tablet(s) PO Q6-8H as needed 08/27/2015 09/25/2015 Inactive metoprolol succinate ER 100 mg tablet,extended release 24 hr RxNorm: 069241 1 Tablet(s) PO daily 08/20/2015 09/15/2015 Inactive bumetanide 1 mg tablet RxNorm: 078291 1 Tablet(s) PO BID 08/20/2015 09/18/2015 Inactive Bumex 1 mg tablet RxNorm: 913224 1 Tablet(s) PO BID 08/20/2015 11/15/2015 Inactive Kenalog 40 mg/mL suspension for injection RxNorm: 5378365 Milliliter(s) Inj 08/20/2015 08/20/2015 Inactive bumetanide 1 mg tablet RxNorm: 466260 1 Tablet(s) PO BID 08/20/2015 08/19/2015 Inactive Levaquin 500 mg tablet RxNorm: 588498 1 Tablet(s) PO daily 08/20/2015 08/26/2015 Inactive promethazine 25 mg tablet RxNorm: 867041 1 Tablet(s) PO Q6-8H as needed 08/06/2015 08/26/2015 Inactive metformin 500 mg tablet RxNorm: 442028 Tablet(s) PO 500mg in the morning and 1000mg at night No Start Date 09/16/2015 Inactive Lantus Solostar 100 unit/mL (3 mL) subcutaneous insulin pen RxNorm: 253089 Unit(s) SQ UD 10 units QHS x 5 days, if blood sugars are above 200 increase to 15 units x 5 days, if still 200 increase to 20 units. No Start Date 04/13/2016 Inactive alprazolam 0.5 mg tablet RxNorm: 197255 1 Tablet(s) PO PRN as needed No Start Date 09/15/2015 Inactive cyclobenzaprine 10 mg tablet RxNorm: 805054 1 Tablet(s) PO PRN as needed No Start Date 04/05/2016 Inactive lidocaine 4 % topical patch RxNorm: 0892676 1 Patch TOP on for 12 hours and off for 12 hours No Start Date 04/12/2016 Inactive metoprolol tartrate 50 mg tablet RxNorm: 121513 1 Tablet(s) PO BID No Start Date 11/10/2015 Inactive spironolactone 50 mg tablet RxNorm: 590102 1 Tablet(s) PO BID No Start Date 09/15/2015 Inactive hydrocodone 7.5 mg-acetaminophen 325 mg tablet RxNorm: 074608 1 Tablet(s) PO Q4H as needed No Start Date 09/15/2015 Inactive promethazine 25 mg tablet RxNorm: 939287 1 Tablet(s) PO PRN as needed No Start Date 08/05/2015 Inactive Medication Administered Medication Codes Instructions Start Date Status ceftriaxone 500 mg solution for injection RxNorm: 9406080 06/05/2018 No longer Active Kenalog 40 mg/mL suspension for injection RxNorm: 6358422 15.Milliliter 02/19/2018 No longer Active Kenalog 40 mg/mL suspension for injection RxNorm: 6369882 Milliliter 09/05/2017 No longer Active Kenalog 40 mg/mL suspension for injection RxNorm: 8877030 1Milliliter 04/24/2017 No longer Active Kenalog 40 mg/mL suspension for injection RxNorm: 0672348 Milliliter 01/09/2017 No longer Active Kenalog 40 mg/mL suspension for injection RxNorm: 3115817 1Milliliter 04/06/2016 No longer Active Kenalog 40 mg/mL suspension for injection RxNorm: 3389104 1Milliliter 02/28/2016 No longer Active Kenalog 40 mg/mL suspension for injection RxNorm: 6601216 Milliliter 08/20/2015 No longer Active Immunizations Vaccine Codes Date Status Influenza CVX: 141 03/14/2018 completed Influenza CVX: 141 04/24/2017 completed Pneumococcal (Adult) CVX: 33 04/13/2016 completed Influenza CVX: 141 03/30/2016 completed Assessments Condition Codes Effective Dates Hidradenitis suppurativa ICD-10: L73.2 ICD-9: 705.83 07/22/2018 [...] Visit Reason For Visit Effective Dates Notes wound follow up 07/22/2018 Post-op wound 07/18/2018 [...] Code Item Item Code Result Date %Hba1C Zxt642 % HbA1c 36162- 6 8.4 % 06/06/2018 %Hba1C Gfo278 Gluc Ave 194 mg/dL 06/06/2018 Lipid Ord30 CHOL 233 mg/dL 03/14/2018 Lipid Ord30 HDL 38.0 mg/dl 03/14/2018 Lipid Ord30 TRIG 143 mg/dL 03/14/2018 Lipid Ord30 LDL 166 mg/dL 03/14/2018 Lipid Ord30 C/HDL 6.1 Ratio 03/14/2018 %Hba1C Dau028 % HbA1c 77065- 6 9.8 % 03/14/2018 %Hba1C Nqo215 Gluc Ave 235 mg/dL 03/14/2018 Tsh Ord6 TSH (3rd IS) 1.09 uIU/mL 03/14/2018 Comp Metabolic Ruv673 NA 137 mEq/L 03/14/2018 Comp Metabolic Zbi616 K 4.6 mEq/L 03/14/2018 Comp Metabolic Xtp494 CL 100 mEq/L 03/14/2018 Comp Metabolic Vpr822 CO2 27.0 mEq/L 03/14/2018 Comp Metabolic Ngm705 ANION GAP 15 03/14/2018 Comp Metabolic Tgq777 GLUCOSE 144 mg/dL 03/14/2018 Comp Metabolic Ptd805 Creat 0.5 mg/dL 03/14/2018 Comp Metabolic Htr561 eGFR 138 ml/min/1.73m2 03/14/2018 Comp Metabolic Amp407 BUN 9 mg/dL 03/14/2018 Comp Metabolic Jcs088 B/C Ratio 17.6 Ratio 03/14/2018 Comp Metabolic Rsg741 CALCIUM 10.0 mg/dL 03/14/2018 Comp Metabolic Ktv297 ALK PHOS 102 U/L 03/14/2018 Comp Metabolic Khv017 AST(SGOT) 31 U/L 03/14/2018 Comp Metabolic Iyh908 ALT(SGPT) 41 U/L 03/14/2018 Comp Metabolic Mot540 BILI T 0.5 mg/dL 03/14/2018 Comp Metabolic Odl514 ALBUMIN 4.3 g/dL 03/14/2018 Comp Metabolic Tok861 TPRO 6.8 g/dL 03/14/2018 Comp Metabolic Wgt540 GLOB 2.5 g/dL 03/14/2018 Comp Metabolic Lpi135 A/G Ratio 1.8 Ratio 03/14/2018 Comp Metabolic Mlv599 Osmo 275 mOsmo 03/14/2018 Cbc With Differential [...] 90.5 fl 03/14/2018 Cbc With Differential Ord2 [place]% 5.6 % 03/14/2018 Cbc With Differential Ord2 [...] 4.31 K/ul 03/14/2018 Cbc With Differential Ord2 [place] ABS# 0.9 K/ul 03/14/2018 Cbc With Differential Ord2 Eos ABS# 0.2 K/ul 03/14/2018 Cbc With Differential Ord2 Baso ABS# 0.1 K/ul 03/14/2018 %Hba1C Mow849 % HbA1c 62639- 6 8.8 % 06/13/2017 %Hba1C Rmu465 Gluc Ave 206 mg/dL 06/13/2017 Tsh Ord6 [...] 30.2 pg 06/13/2017 Cbc With Differential Ord2 [place]% 4.9 % 06/13/2017 Cbc With Differential Ord2 [...] 3.21 K/ul 06/13/2017 Cbc With Differential Ord2 [place] ABS# 0.7 K/ul 06/13/2017 Cbc With Differential Ord2 Eos ABS# 0.2 K/ul 06/13/2017 Cbc With Differential Ord2 Baso ABS# 0.1 K/ul 06/13/2017 Lipid Ord30 CHOL 219 mg/dL 06/13/2017 Lipid Ord30 HDL 40.0 mg/dl 06/13/2017 Lipid Ord30 TRIG 200 mg/dL 06/13/2017 Lipid Ord30 LDL 139 mg/dL 06/13/2017 Lipid Ord30 C/HDL 5.5 Ratio 06/13/2017 Comp Metabolic Jaz407 NA 139 mEq/L 06/13/2017 Comp Metabolic Rwy287 K 4.4 mEq/L 06/13/2017 Comp Metabolic Msn588 CL 100 mEq/L 06/13/2017 Comp Metabolic Vps189 CO2 29.0 mEq/L 06/13/2017 Comp Metabolic Evf509 ANION GAP 14 06/13/2017 Comp Metabolic Mpf496 GLUCOSE 257 mg/dL 06/13/2017 Comp Metabolic Tdu480 Creat 0.5 mg/dL 06/13/2017 Comp Metabolic Bsd078 eGFR 145 ml/min/1.73m2 06/13/2017 Comp Metabolic Aef651 BUN 13 mg/dL 06/13/2017 Comp Metabolic Wui666 B/C Ratio 26.5 Ratio 06/13/2017 Comp Metabolic Lzf243 CALCIUM 9.7 mg/dL 06/13/2017 Comp Metabolic Tar775 ALK PHOS 98 U/L 06/13/2017 Comp Metabolic Xoo394 AST(SGOT) 30 U/L 06/13/2017 Comp Metabolic Xxs728 ALT(SGPT) 43 U/L 06/13/2017 Comp Metabolic Giv507 BILI T 0.5 mg/dL 06/13/2017 Comp Metabolic Hqy321 ALBUMIN 4.0 g/dL 06/13/2017 Comp Metabolic Qsr628 TPRO 6.4 g/dL 06/13/2017 Comp Metabolic Gvd401 GLOB 2.4 g/dL 06/13/2017 Comp Metabolic Khx990 A/G Ratio 1.7 Ratio 06/13/2017 Comp Metabolic Ium647 Osmo 286 mOsmo 06/13/2017 %Hba1C Boe111 % HbA1c 62740- 6 11.1 % 2016 %Hba1C Acl764 Gluc Ave 272 mg/dL 2016 C-Reactive Protein Qnt Crqnt CRP 4.7 mg/dl 2016 Comp Metabolic Aqe475 NA 136 mEq/L 2016 Comp Metabolic Hrn983 K 4.1 mEq/L 2016 Comp Metabolic Zeo812 CL 96 mEq/L 2016 Comp Metabolic Mtl694 CO2 29.0 mEq/L 2016 Comp Metabolic Jme315 ANION GAP 15 2016 Comp Metabolic Mye019 GLUCOSE 291 mg/dL 2016 Comp Metabolic Pis517 Creat 0.4 mg/dL 2016 Comp Metabolic Icc353 eGFR 165 ml/min/1.73m2 2016 Comp Metabolic Xxr780 BUN 11 mg/dL 2016 Comp Metabolic Akh487 B/C Ratio 25.0 Ratio 2016 Comp Metabolic Fku363 CALCIUM 9.4 mg/dL 2016 Comp Metabolic Gxm301 ALK PHOS 111 U/L 2016 Comp Metabolic Pkq068 AST(SGOT) 46 U/L 2016 Comp Metabolic Iru872 ALT(SGPT) 60 U/L 2016 Comp Metabolic Rdm651 BILI T 0.4 mg/dL 2016 Comp Metabolic Jqn074 ALBUMIN 4.0 g/dL 2016 Comp Metabolic Dkl604 TPRO 6.5 g/dL 2016 Comp Metabolic Yao163 GLOB 2.6 g/dL 2016 Comp Metabolic Wld174 A/G Ratio 1.5 Ratio 2016 Comp Metabolic Kqs050 Osmo 282 mOsmo 2016 Cbc With Differential [...] 30.5 pg 2016 Cbc With Differential Ord2 [place]% 4.7 % 2016 Cbc With Differential Ord2 [...] 3.53 K/ul 2016 Cbc With Differential Ord2 [place] ABS# 0.7 K/ul 2016 Cbc With Differential Ord2 Eos ABS# 0.2 K/ul 2016 Cbc With Differential Ord2 Baso ABS# 0.1 K/ul 2016 Lipid Ord30 CHOL 228 mg/dL 05/05/2016 Lipid Ord30 HDL 42.0 mg/dl 05/05/2016 Lipid Ord30 TRIG 168 mg/dL 05/05/2016 Lipid Ord30 LDL 152 mg/dL 05/05/2016 Lipid Ord30 C/HDL 5.4 Ratio 05/05/2016 Comp Metabolic Tik284 NA 135 mEq/L 05/05/2016 Comp Metabolic Imb626 K 4.1 mEq/L 05/05/2016 Comp Metabolic Fju726 CL 99 mEq/L 05/05/2016 Comp Metabolic Vra949 CO2 29.0 mEq/L 05/05/2016 Comp Metabolic Tgc919 ANION GAP 11 05/05/2016 Comp Metabolic Ttx081 GLUCOSE 229 mg/dL 05/05/2016 Comp Metabolic Jmz297 Creat 0.5 mg/dL 05/05/2016 Comp Metabolic Rzh521 eGFR 150 ml/min/1.73m2 05/05/2016 Comp Metabolic Bgn719 BUN 14 mg/dL 05/05/2016 Comp Metabolic Wqv437 B/C Ratio 29.2 Ratio 05/05/2016 Comp Metabolic Let823 CALCIUM 9.1 mg/dL 05/05/2016 Comp Metabolic Zds105 ALK PHOS 112 U/L 05/05/2016 Comp Metabolic Fte142 AST(SGOT) 59 U/L 05/05/2016 Comp Metabolic Kwk339 ALT(SGPT) 63 U/L 05/05/2016 Comp Metabolic Yus467 BILI T 0.7 mg/dL 05/05/2016 Comp Metabolic Zrf516 ALBUMIN 3.8 g/dL 05/05/2016 Comp Metabolic Icy729 TPRO 6.5 g/dL 05/05/2016 Comp Metabolic Eui770 GLOB 2.7 g/dL 05/05/2016 Comp Metabolic Oeo326 A/G Ratio 1.4 Ratio 05/05/2016 Comp Metabolic Hlb974 Osmo 278 mOsmo 05/05/2016 Cbc With Differential [...] 30.2 pg 05/05/2016 Cbc With Differential Ord2 [place]% 4.4 % 05/05/2016 Cbc With Differential Ord2 [...] 3.59 K/ul 05/05/2016 Cbc With Differential Ord2 [place] ABS# 0.7 K/ul 05/05/2016 Cbc With Differential Ord2 Eos ABS# 0.1 K/ul 05/05/2016 Cbc With Differential Ord2 Baso ABS# 0.1 K/ul 05/05/2016 %Hba1C Lwi519 % HbA1c 94326- 6 10.4 % 05/05/2016 %Hba1C Qpm382 Gluc Ave 252 mg/dL 05/05/2016 Hcg Beta Subunit Qual Serum 913966 B-HCG QUALITATIVE NEGATIVE 12/27/2015 GC/CHL PRB 6563124 Chl trach DNA Negative 12/25/2015 GC/CHL PRB 4170573 GC PROBE Negative 12/25/2015 Comp. Metabolic Panel (14) 43992 GLUCOSE 136 mg/dL 12/17/2015 Comp. Metabolic Panel (14) 20431 BUN 9 mg/dL 12/17/2015 Comp. Metabolic Panel (14) 18266 CREATININE 0.67 mg/dL 12/17/2015 Comp. Metabolic Panel (14) 18612 SODIUM 136 mmol/L 12/17/2015 Comp. Metabolic Panel (14) 32155 POTASSIUM 4.4 mmol/L 12/17/2015 Comp. Metabolic Panel (14) 11360 CHLORIDE 95 mmol/L 12/17/2015 Comp. Metabolic Panel (14) 08136 CARBON DIOXIDE 28 mmol/L 12/17/2015 Comp. Metabolic Panel (14) 57466 CALCIUM 10.1 mg/dL 12/17/2015 Comp. Metabolic Panel (14) 93818 TOTAL PROTEIN 7.0 g/dL 12/17/2015 Comp. Metabolic Panel (14) 27883 ALBUMIN 4.5 g/dL 12/17/2015 Comp. Metabolic Panel (14) 60548 ALKALINE PHOSPHATASE 87 U/L 12/17/2015 Comp. Metabolic Panel (14) 89890 TOTAL BILIRUBIN 0.5 mg/dL 12/17/2015 Comp. Metabolic Panel (14) 51624 SGOT (AST) 38 U/L 12/17/2015 Comp. Metabolic Panel (14) 53039 SGPT (ALT) 41 U/L 12/17/2015 Comp. Metabolic Panel (14) 14763 eGFR (mL/min/1.73m2) >60 12/17/2015 Comp. Metabolic Panel (14) 30925 12/17/2015 Cbc With Differential/Platelet 99623 WBC 16.67 thou/uL 12/17/2015 Cbc With Differential/Platelet 87458 RBC 5.11 mil/uL 12/17/2015 Cbc With Differential/Platelet 43728 HEMOGLOBIN 14.8 g/dL 12/17/2015 Cbc With Differential/Platelet 76822 HEMATOCRIT 48.7 % 12/17/2015 Cbc With Differential/Platelet 83827 MCV 95.4 fL 12/17/2015 Cbc With Differential/Platelet 51222 MCH 29.0 pg 12/17/2015 Cbc With Differential/Platelet 38104 MCHC 30.4 g/dL 12/17/2015 Cbc With Differential/Platelet 41856 RDW-CV 14.6 % 12/17/2015 Cbc With Differential/Platelet 19559 PLATELET COUNT 471 thou/uL 12/17/2015 Cbc With Differential/Platelet 58950 NEUTROPHIL % 71.3 % 12/17/2015 Cbc With Differential/Platelet 50179 LYMPHOCYTE % 22.4 % 12/17/2015 Cbc With Differential/Platelet 25805 MONOCYTE % 4.8 % 12/17/2015 Cbc With Differential/Platelet 20236 EOS % 0.7 % 12/17/2015 Cbc With Differential/Platelet 22999 BASO % 0.7 % 12/17/2015 Cbc With Differential/Platelet 47989 NEUTROPHIL ABS # 11.89 thou/uL 12/17/2015 Cbc With Differential/Platelet 23850 LYMPH ABS # 3.73 thou/uL 12/17/2015 Cbc With Differential/Platelet 92185 MONOCYTE ABS # 0.80 thou/uL 12/17/2015 Cbc With Differential/Platelet 18038 EOS ABS # 0.12 thou/uL 12/17/2015 Cbc With Differential/Platelet 64037 BASO ABS # 0.12 thou/uL 12/17/2015 Comp. [...] Hgb A1C With Eag Estimation GLYCOHEMOGLOBIN A1C 67348-5 8.1 % 11/13/2015 Hgb A1C With Eag Estimation ESTIMATED AVG GLUCOSE 186 mg/dL 11/13/2015 Comp. Metabolic Panel (14) 69253 GLUCOSE 84 mg/dL 09/11/2015 Comp. Metabolic Panel (14) 27661 BUN 11 mg/dL 09/11/2015 Comp. Metabolic Panel (14) 64985 CREATININE 0.56 mg/dL 09/11/2015 Comp. Metabolic Panel (14) 85005 SODIUM 142 mmol/L 09/11/2015 Comp. Metabolic Panel (14) 44854 POTASSIUM 4.3 mmol/L 09/11/2015 Comp. Metabolic Panel (14) 91874 CHLORIDE 98 mmol/L 09/11/2015 Comp. Metabolic Panel (14) 17324 CARBON DIOXIDE 27 mmol/L 09/11/2015 Comp. Metabolic Panel (14) 04855 CALCIUM 10.1 mg/dL 09/11/2015 Comp. Metabolic Panel (14) 78115 TOTAL PROTEIN 7.2 g/dL 09/11/2015 Comp. Metabolic Panel (14) 75188 ALBUMIN 4.7 g/dL 09/11/2015 Comp. Metabolic Panel (14) 71271 ALKALINE PHOSPHATASE 109 U/L 09/11/2015 Comp. Metabolic Panel (14) 44842 TOTAL BILIRUBIN 0.3 mg/dL 09/11/2015 Comp. Metabolic Panel (14) 49680 SGOT (AST) 53 U/L 09/11/2015 Comp. Metabolic Panel (14) 17304 SGPT (ALT) 53 U/L 09/11/2015 Comp. Metabolic Panel (14) 21817 eGFR (mL/min/1.73m2) >60 09/11/2015 Comp. Metabolic Panel (14) 35745 09/11/2015 Comp. Metabolic Panel (14) 57435 GLUCOSE 183 mg/dL 08/11/2015 Comp. Metabolic Panel (14) 82924 BUN 10 mg/dL 08/11/2015 Comp. Metabolic Panel (14) 71122 CREATININE 0.46 mg/dL 08/11/2015 Comp. Metabolic Panel (14) 31097 SODIUM 138 mmol/L 08/11/2015 Comp. Metabolic Panel (14) 62017 POTASSIUM 4.0 mmol/L 08/11/2015 Comp. Metabolic Panel (14) 47546 CHLORIDE 98 mmol/L 08/11/2015 Comp. Metabolic Panel (14) 92827 CARBON DIOXIDE 29 mmol/L 08/11/2015 Comp. Metabolic Panel (14) 49466 CALCIUM 9.4 mg/dL 08/11/2015 Comp. Metabolic Panel (14) 86793 TOTAL PROTEIN 6.8 g/dL 08/11/2015 Comp. Metabolic Panel (14) 96548 ALBUMIN 4.4 g/dL 08/11/2015 Comp. Metabolic Panel (14) 95834 ALKALINE PHOSPHATASE 118 U/L 08/11/2015 Comp. Metabolic Panel (14) 31786 TOTAL BILIRUBIN <0.3 mg/dL 08/11/2015 Comp. Metabolic Panel (14) 77474 SGOT (AST) 41 U/L 08/11/2015 Comp. Metabolic Panel (14) 78972 SGPT (ALT) 55 U/L 08/11/2015 Comp. Metabolic Panel (14) 10454 eGFR (mL/min/1.73m2) >60 08/11/2015 Comp. Metabolic Panel (14) 11675 08/11/2015 Cbc With Differential/Platelet 89931 WBC 11.76 thou/uL 08/11/2015 Cbc With Differential/Platelet 89279 RBC 4.98 mil/uL 08/11/2015 Cbc With Differential/Platelet 97569 HEMOGLOBIN 14.2 g/dL 08/11/2015 Cbc With Differential/Platelet 79234 HEMATOCRIT 46.7 % 08/11/2015 Cbc With Differential/Platelet 17335 MCV 93.8 fL 08/11/2015 Cbc With Differential/Platelet 83937 MCH 28.5 pg 08/11/2015 Cbc With Differential/Platelet 01299 MCHC 30.4 g/dL 08/11/2015 Cbc With Differential/Platelet 84705 RDW-CV 14.3 % 08/11/2015 Cbc With Differential/Platelet 24226 PLATELET COUNT 382 thou/uL 08/11/2015 Cbc With Differential/Platelet 90608 NEUTROPHIL % 67.3 % 08/11/2015 Cbc With Differential/Platelet 98151 LYMPHOCYTE % 24.0 % 08/11/2015 Cbc With Differential/Platelet 99783 MONOCYTE % 6.0 % 08/11/2015 Cbc With Differential/Platelet 58988 EOS % 1.6 % 08/11/2015 Cbc With Differential/Platelet 91621 BASO % 1.0 % 08/11/2015 Cbc With Differential/Platelet 24960 NEUTROPHIL ABS # 7.91 thou/uL 08/11/2015 Cbc With Differential/Platelet 29416 LYMPH ABS # 2.82 thou/uL 08/11/2015 Cbc With Differential/Platelet 30563 MONOCYTE ABS # 0.71 thou/uL 08/11/2015 Cbc With Differential/Platelet 13977 EOS ABS # 0.19 thou/uL 08/11/2015 Cbc With Differential/Platelet 77930 BASO ABS # 0.12 thou/uL 08/11/2015 Tsh 542690 TSH 3.220 uIU/mL 08/11/2015 Lipid Panel 00766 CHOLESTEROL 193 mg/dL 08/11/2015 Lipid Panel 66748 TRIGLYCERIDES 192 mg/dL 08/11/2015 Lipid Panel 21704 HDL 38 mg/dL 08/11/2015 Lipid Panel 39059 CHOLESTEROL/HDL 5.08 08/11/2015 Lipid Panel 86522 LDL (CALCULATED) 117 mg/dL 08/11/2015 Lipid Panel 37198 LDL/HDL 3.08 08/11/2015 Lipid Panel 83971 PHENOTYPE TYPE IV BORDERLINE 08/11/2015 Review of Systems System Result Effective Dates Constitutional No recent illness 07/22/2018 Constitutional No [...] affect 03/14/2018 None Full Exam - General 1995 Constitutional general appearance Overall: well developed 03/07/2018 None Full Exam - General 1995 Constitutional general appearance Overall: in no acute distress 03/07/2018 None Full Exam - General 1994 Constitutional general appearance Overall: well nourished 03/07/2018 None Full Exam - General 1994 Eyes conjunctiva/eyelids Overall: conjunctiva clear 03/07/2018 None Full Exam - General 1995 Eyes conjunctiva/eyelids Overall: eyelids normal 03/07/2018 None [...] Procedure Codes Date THER/PROPH/DIAG INJ SC/IM CPT-4: 68485 06/05/2018 ROCEPHIN, PER 250 MG CPT- 4: J0696 06/05/2018 REMOVAL OF SKIN TAGS <W/15 CPT-4: 33727 03/14/2018 FLU VAC NO PRSV 4 PRECIOUS 3 YRS+ CPT-4: 91827 03/14/2018 IMMUNIZATION ADMIN CPT- 4: 99376 03/14/2018 TRIAMCINOLONE ACET INJ NOS CPT-4: J3301 02/19/2018 THER/PROPH/DIAG INJ SC/IM CPT-4: 02511 02/19/2018 THER/PROPH/DIAG INJ SC/IM CPT-4: 24419 09/05/2017 TRIAMCINOLONE ACET INJ NOS CPT-4: J3301 09/05/2017 IMMUNIZATION ADMIN CPT- 4: 85436 04/24/2017 FLU VAC NO PRSV 4 PRECIOUS 3 YRS+ CPT-4: 07271 04/24/2017 DRAIN/INJECT JOINT/BURSA CPT-4: 41145 04/24/2017 TRIAMCINOLONE ACET INJ NOS CPT-4: J3301 04/24/2017 THER/PROPH/DIAG INJ SC/IM CPT-4: 29870 01/09/2017 TRIAMCINOLONE ACET INJ NOS CPT-4: J3301 01/09/2017 THER/PROPH/DIAG INJ SC/IM CPT-4: 79744 04/13/2016 Pneumococcal Polysaccharide Vaccine, 23-Valent, Ad CPT-4: 41662 04/13/2016 INJECT TRIGGER POINTS 3/> CPT-4: 87993 04/06/2016 TRIAMCINOLONE ACET INJ NOS CPT-4: J3301 04/06/2016 IMMUNIZATION ADMIN CPT- 4: 23708 03/30/2016 IIV4 FLU VACC NO PRESERV ID SNOMED CT: [id number] CPT-4: 95670 03/30/2016 TRIAMCINOLONE ACET INJ NOS CPT-4: J3301 02/28/2016 THER/PROPH/DIAG INJ SC/IM CPT-4: 63260 02/28/2016 TRIAMCINOLONE ACET INJ NOS CPT-4: J3301 08/20/2015 Vital Signs Date Vital 07/22/2018 Blood Pressure 1: 140/78 Code: 8480-6 [...] 1: 127 Code: 8480-6 BMI: 42.4 Code: 56002-7 Heart Rate 1: 78 bpm Height: 4'11" SpO2: 97% Weight: 210 lbs 03/26/2018 Blood Pressure 1: 128 Code: 8480-6 BMI: 43.0 Code: 46331-3 Heart Rate 1: 120 bpm Height: 4'11" SpO2: 97% Weight: 213 lbs 03/14/2018 Blood Pressure 1: 120 Code: 8480-6 BMI: 43.0 Code: 97509-6 Heart Rate 1: 114 bpm Height: 4'11" SpO2: 95% Weight: 213 lbs 03/07/2018 Blood Pressure 1: 13274 Code: 8480-6 BMI: 43.8 Code: 66238-4 Heart Rate 1: 123 bpm Height: 4'11" [...] 1: 134/86 Code: 8480-6 BMI: 45.4 Code: 58926-6 Heart Rate 1: 108 bpm Height: 4'11" SpO2: 95% Weight: 225 lbs 06/07/2017 Blood Pressure 1: 132/74 Code: 8480-6 Heart Rate 1: 99 bpm Height: 4'11" SpO2: 95% 04/24/2017 Blood Pressure 1: 132/8096 Code: 8480-6 BMI: 47.7 Code: 46710-6 Heart Rate 1: 96 bpm Height: 4'11" Weight: 236 lbs 01/09/2017 Blood Pressure 1: 122/74 Code: 8480-6 BMI: 46.0 Code: 88648-9 Heart Rate 1: 114 bpm Height: 4'11" SpO2: 98% Temperature: 37.1 (C) / 98.7 (F) Weight: 228 lbs 10/30/2016 Blood Pressure 1: 124 Code: 8480-6 BMI: 49.1 Code: 93574-6 Heart Rate 1: 90 bpm Height: 4'11" SpO2: 97% Weight: 243 lbs 10/09/2016 Blood Pressure 1: 124 Code: 8480-6 BMI: 49.3 Code: 07706-1 Heart Rate 1: 91 bpm Height: 4'11" SpO2: 98% Weight: 244 lbs 09/12/2016 Blood Pressure 1: 12880 Code: 8480-6 BMI: 49.1 Code: 90028-0 Heart Rate 1: 94 bpm Height: 4'11" SpO2: 95% Weight: 243 lbs 09/05/2016 Blood Pressure 1: 118 Code: 8480-6 BMI: 49.1 Code: 12358-2 Heart Rate 1: 100 bpm Height: 4'11" SpO2: 97% Weight: 243 lbs 06/16/2016 Blood Pressure 1: 120/62 Code: 8480-6 BMI: 49.1 Code: 68467-5 Heart Rate 1: 100 bpm Height: 4'11" SpO2: 96% Temperature: 36.7 (C) / 98.0 (F) Weight: 243 lbs 06/13/2016 Blood Pressure 1: 120/70 Code: 8480-6 Heart Rate 1: 117 bpm SpO2: 97% 05/19/2016 Blood Pressure 1: 130/64 Code: 8480-6 BMI: 49.1 Code: 42918-2 Heart Rate 1: 101 bpm Height: 4'11" SpO2: 96% Weight: 243 lbs 05/08/2016 Blood Pressure 1: 12876 Code: 8480-6 Heart Rate 1: 119 bpm Height: SpO2: 97% Weight: 05/05/2016 Blood Pressure 1: 124 Code: 8480-6 BMI: 49.1 Code: 17222-6 Heart Rate 1: 75 bpm Height: 4'11" SpO2: 99% Weight: 243 lbs 04/10/2016 Blood Pressure 1: 140/80 Code: 8480-6 BMI: 49.7 Code: 55447-4 Heart Rate 1: 88 bpm Height: 4'11" SpO2: 95% Weight: 246 lbs 04/06/2016 Blood Pressure 1: 134/82 Code: 8480-6 BMI: 75.1 Code: 51800-5 Heart Rate 1: 72 bpm Height: 4' SpO2: 96% Weight: 246 lbs 03/08/2016 Blood Pressure 1: 12672 Code: 8480-6 BMI: 49.7 Code: 67982-2 Heart Rate 1: 89 bpm Height: 4'11" SpO2: 97% Weight: 246 lbs 02/28/2016 Blood Pressure 1: 12468 Code: 8480-6 BMI: 49.7 Code: 53170-1 Heart Rate 1: 89 bpm Height: 4'11" SpO2: 96% Weight: 246 lbs 01/18/2016 Blood Pressure 1: 142/78 Code: 8480-6 BMI: 48.9 Code: 67080-1 Heart Rate 1: 97 bpm Height: 4'11" SpO2: 97% Weight: 242 lbs 12/23/2015 Blood Pressure 1: 124/74 Code: 8480-6 BMI: 48.9 Code: 53851-1 Heart Rate 1: 106 bpm Height: 4'11" SpO2: 96% Weight: 242 lbs 12/16/2015 Blood Pressure 1: 116/82 Code: 8480-6 BMI: 48.3 Code: 81358-4 Heart Rate 1: 111 bpm Height: 4'11" SpO2: 97% Weight: 239 lbs 11/11/2015 Blood Pressure 1: 130/80 Code: 8480-6 BMI: 49.7 Code: 94411-9 Heart Rate 1: 105 bpm Height: 4'11" SpO2: 96% Weight: 246 lbs 10/27/2015 Blood Pressure 1: 122/70 Code: 8480-6 BMI: 49.5 Code: 03747-5 Heart Rate 1: 107 bpm Height: 4'11" SpO2: 96% Weight: 245 lbs 10/13/2015 Blood Pressure 1: 140/82 Code: 8480-6 BMI: 50.9 Code: 24210-9 Heart Rate 1: 111 bpm Height: 4'11" SpO2: 96% Weight: 252 lbs 10/05/2015 Blood Pressure 1: 118/70 Code: 8480-6 BMI: 51.1 Code: 68352-2 Heart Rate 1: 120 bpm Height: 4'11" SpO2: 97% Weight: 253 lbs 09/01/2015 Blood Pressure 1: 132/82 Code: 8480-6 BMI: 50.1 Code: 31435-8 Heart Rate 1: 110 bpm Height: 4'11" SpO2: 96% Weight: 248 lbs 08/20/2015 Blood Pressure 1: 132/78 Code: 8480-6 BMI: 51.7 Code: 56978-0 Heart Rate 1: 100 bpm Height: 4'11" Weight: 256 lbs 08/03/2015 Blood Pressure 1: 148/92 Code: 8480-6 BMI: 52.1 Code: 86266-9 Heart Rate 1: 100 bpm Height: 4'11" SpO2: 97% Weight: 258 lbs Functional Status No Functional Status data History of Present Illness Symptom Name Status Result Effective Date Notes Procedure Performed an excision of cyst 07/22/2018 [...] Codes Date EST. PATIENT, LEVEL III Diagnosis: Hidradenitis suppurativa[ICD10: L73.2] Gloria Hess MD, [facility] CPT- 4: 78581 07/22/2018 [id number] EST. PATIENT, LEVEL III Diagnosis: Hidradenitis suppurativa[ICD10: L73.2] Diagnosis: Encounter for other specified surgical aftercare[ICD10: Z48.89] Gloria eHss MD, [facility] CPT-4: 61277 07/18/2018 [id number] EST. PATIENT, LEVEL III Diagnosis: Cellulitis of right axilla[ICD10: L03.111] Diagnosis: Diarrhea, unspecified[ICD10: R19.7] Gloria Hess MD, [facility] CPT- 4: 39216 06/28/2018 ([id number]) [id number] EST. PATIENT, LEVEL II Diagnosis: Cellulitis of right axilla[ICD10: L03.111] Tamy Hess MD, [facility] CPT-4: 22117 06/17/2018 00021 EST. PATIENT, LEVEL III Diagnosis: Cellulitis of right axilla[ICD10: L03.111] Diagnosis: Type 2 diabetes mellitus with hyperglycemia[ICD10: E11.65] Gloria Hess MD, [facility] CPT-4: 73622 06/05/2018 57531 EST. PATIENT, LEVEL III Diagnosis: Gastro-esophageal reflux disease without esophagitis[ICD10: K21.9] Diagnosis: Other allergic rhinitis[ICD10: J30.89] Diagnosis: Cough[ICD10: R05] Gloria Hess MD, [facility] CPT-4: 50143 03/26/2018 ([id number]) 86424 EST. PATIENT, LEVEL III Diagnosis: Cough[ICD10: R05] Gloria Hess MD, [facility] CPT-4: 26468 03/14/2018 83577 EST. PATIENT, LEVEL IV Diagnosis: Acute laryngopharyngitis[ICD10: J06.0] Diagnosis: Other allergic rhinitis[ICD10: J30.89] Diagnosis: Cough[ICD10: R05] Gloria Hess MD, [facility] CPT-4: 14246 03/07/2018 61946 EST. PATIENT, LEVEL IV Diagnosis: Acute bronchitis due to other specified organisms[ICD10: J20.8] Diagnosis: Acute laryngopharyngitis[ICD10: J06.0] Gloria Hess MD, [facility] CPT- 4: 97181 02/19/2018 83359 EST. PATIENT, LEVEL IV Diagnosis: Candidiasis of vulva and vagina[ICD10: B37.3] Diagnosis: Rash and other nonspecific skin eruption[ICD10: R21] Gloria Hess MD, [facility] CPT-4: 25984 01/08/2018 00157 EST. PATIENT, LEVEL III Diagnosis: Sacrococcygeal disorders, not elsewhere classified[ICD10: M53.3] Diagnosis: Low back pain[ICD10: M54.5] Gloria Hess MD, [facility] CPT-4: 95871 11/23/2017 96548 EST. PATIENT, LEVEL III Diagnosis: Acute laryngopharyngitis[ICD10: J06.0] Diagnosis: Other allergic rhinitis[ICD10: J30.89] Diagnosis: Acute bronchitis due to other specified organisms[ICD10: J20.8] Gloria Hess MD, [facility] CPT-4: 26150 09/05/2017 26506 EST. PATIENT, LEVEL III Diagnosis: Pain in left foot[ICD10: M79.672] Diagnosis: Rash and other nonspecific skin eruption[ICD10: R21] Diagnosis: Candidiasis of vulva and vagina[ICD10: B37.3] Diagnosis: Localized edema[ICD10: R60.0] Diagnosis: Dyspnea, unspecified[ICD10: R06.00] Gloria Hess MD, [facility] CPT- 4: 61961 06/07/2017 [id number] EST. PATIENT, LEVEL III Diagnosis: Low back pain[ICD10: M54.5] Diagnosis: Sacroiliitis, not elsewhere classified[ICD10: M46.1] Diagnosis: Pain in left foot[ICD10: M79.672] Diagnosis: VACCIN FOR INFLUENZA[ICD10: Z23] Gloria Hess MD, [facility] CPT-4: 55422 04/24/2017 17676 EST. PATIENT, LEVEL III Diagnosis: Acute suppurative otitis media without spontaneous rupture of ear drum, right ear[ICD10: H66.001] Diagnosis: Other allergic rhinitis[ICD10: J30.89] Gloria Hess MD, [facility] CPT- 4: 20653 01/09/2017 14209 EST. PATIENT, LEVEL IV Diagnosis: Candidiasis of vulva and vagina[ICD10: B37.3] Diagnosis: Type 2 diabetes mellitus with hyperglycemia[ICD10: E11.65] Gloria Hess MD, [facility] CPT-4: 76175 10/30/2016 44095 EST. PATIENT, LEVEL III Diagnosis: Candidiasis of vulva and vagina[ICD10: B37.3] Diagnosis: Type 2 diabetes mellitus with hyperglycemia[ICD10: E11.65] Gloria Hess MD, [facility] CPT-4: 31685 10/09/2016 70279 EST. PATIENT, LEVEL IV Diagnosis: Umbilical hernia without obstruction or gangrene[ICD10: K42.9] Gloria Hess MD, [facility] CPT-4: 24689 09/12/2016 79717 EST. PATIENT, LEVEL III Diagnosis: Epigastric pain[ICD10: R10.13] Diagnosis: Candidiasis of vulva and vagina[ICD10: B37.3] Diagnosis: Type 2 diabetes mellitus with hyperglycemia[ICD10: E11.65] Gloria Hess MD, [facility] CPT-4: 80686 09/05/2016 88578 EST. PATIENT, LEVEL III Diagnosis: Acute laryngopharyngitis[ICD10: J06.0] Diagnosis: Other allergic rhinitis[ICD10: J30.89] Gloria Hess MD, [facility] CPT- 4: 86060 06/16/2016 29316 EST. PATIENT, LEVEL III Diagnosis: Type 2 diabetes mellitus with hyperglycemia[ICD10: E11.65] Diagnosis: Other obesity due to excess calories[ICD10: E66.09] Gloria Hess MD, [facility] CPT-4: 06415 06/13/2016 20021 EST. PATIENT, LEVEL III Diagnosis: Type 2 diabetes mellitus with hyperglycemia[ICD10: E11.65] Diagnosis: Other obesity due to excess calories[ICD10: E66.09] Gloria Hess MD, [facility] CPT-4: 35165 05/19/2016 63155 EST. PATIENT, LEVEL III Diagnosis: Type 2 diabetes mellitus with hyperglycemia[ICD10: E11.65] Diagnosis: Other obesity due to excess calories[ICD10: E66.09] Gloria Hess MD, [facility] CPT-4: 64115 05/08/2016 71824 EST. PATIENT, LEVEL III Diagnosis: Type 2 diabetes mellitus without complications[ICD10: E11.9] Gloria Hess MD, [facility] CPT-4: 83457 05/05/2016 33849 EST. PATIENT, LEVEL III Diagnosis: Pain in right shoulder[ICD10: M25.511] Gloria Hess MD, [facility] CPT- 4: 34576 04/10/2016 89996 EST. PATIENT, LEVEL III Diagnosis: Pain in right shoulder[ICD10: M25.511] Diagnosis: Other muscle spasm[ICD10: M62.838] Diagnosis: Type 2 diabetes mellitus without complications[ICD10: E11.9] Gloria Hess MD, [facility] CPT-4: 48480 04/06/2016 90522 EST. PATIENT, LEVEL IV Diagnosis: Acute bronchitis due to other specified organisms[ICD10: J20.8] Diagnosis: Other acute sinusitis[ICD10: J01.80] Diagnosis: Acne vulgaris[ICD10: L70.0] Diagnosis: Morbid (severe) obesity due to excess calories[ICD10: E66.01] Gloria Hess MD, [facility] CPT-4: 70966 03/08/2016 44236 EST. PATIENT, LEVEL IV Diagnosis: Other acute sinusitis[ICD10: J01.80] Diagnosis: Localized enlarged lymph nodes[ICD10: R59.0] Gloria Hess MD, [facility] CPT-4: 83795 02/28/2016 73623 EST. PATIENT, LEVEL III Diagnosis: Type 2 diabetes mellitus without complications[ICD10: E11.9] Gloria Hess MD, [facility] CPT-4: 76126 01/18/2016 (41974) PREV VISIT EST AGE 40-64 Diagnosis: Encounter for gynecological examination (general) (routine) without abnormal findings[ICD10: Z01.419] Diagnosis: Excessive and frequent menstruation with irregular cycle[ICD10: N92.1] Gloria Hess MD, [facility] CPT-4: 05475 12/23/2015 04331 EST. PATIENT, LEVEL III Diagnosis: Type 2 diabetes mellitus without complications[ICD10: E11.9] Gloria Hess MD, [facility] CPT-4: 32734 12/16/2015 00546 EST. PATIENT, LEVEL III Diagnosis: Type 2 diabetes mellitus without complications[ICD10: E11.9] Diagnosis: Other obesity due to excess calories[ICD10: E66.09] Gloria Hess MD, [facility] CPT-4: 06355 11/11/2015 67311 EST. PATIENT, LEVEL III Diagnosis: Type 2 diabetes mellitus without complications[ICD10: E11.9] Diagnosis: Other obesity due to excess calories[ICD10: E66.09] Gloria Hess MD, [facility] CPT-4: 00119 10/27/2015 16503 EST. PATIENT, LEVEL III Diagnosis: Type 2 diabetes mellitus without complications[ICD10: E11.9] Diagnosis: Other obesity due to excess calories[ICD10: E66.09] Diagnosis: Other insomnia[ICD10: G47.09] Gloria Hess MD, [facility] CPT-4: 56901 10/13/2015 45077 EST. PATIENT, LEVEL IV Diagnosis: Acute recurrent maxillary sinusitis[ICD10: J01.01] Diagnosis: Allergic rhinitis due to pollen[ICD10: J30.1] Diagnosis: Other obesity due to excess calories[ICD10: E66.09] Gloria Hess MD, [facility] CPT-4: 00301 10/05/2015 98083 EST. PATIENT, LEVEL IV Diagnosis: Polycystic ovarian syndrome[ICD10: E28.2] Diagnosis: Other skin changes[ICD10: R23.8] Diagnosis: Other abnormal glucose[ICD10: R73.09] [facility] CPT- 4: 49494 09/01/2015 24344 EST. PATIENT, LEVEL IV Diagnosis: Acute recurrent maxillary sinusitis[ICD10: J01.01] Diagnosis: Morbid (severe) obesity due to excess calories[ICD10: E66.01] Diagnosis: Essential (primary) hypertension[ICD10: I10] Diagnosis: Allergic rhinitis due to pollen[ICD10: J30.1] [facility] CPT-4: 13998 08/20/2015 (80423) OFFICE VISIT, NEW - LEVEL 4 Diagnosis: Essential (primary) hypertension[ICD10: I10] Diagnosis: Obstructive sleep apnea (adult) (pediatric)[ICD10: G47.33] Diagnosis: Other insomnia[ICD10: G47.09] Diagnosis: Snoring[ICD10: R06.83] Diagnosis: Morbid (severe) obesity due to excess calories[ICD10: E66.01] [facility] CPT-4: 75713 08/03/2015 Plan of Care Planned Activity Notes Codes Status Date Visit Plan: incision - healing well - Wound Instructions - Pt was instructed to keep the wound clean, wash with antibacterial soap, use triple antibiotic ointment, call if redness, pustular drainage, or any other a cute concerns. Hidradenitis suppurativa - will refer to dermatology. 07/22/2018 Appointment: Gloria Scott WPtel: [facility]5 [facility] (30 min) Complex 07/22/2018 [...] acute concerns. 07/18/2018 Appointment: Gloria Scott WPtel: [address] [place], [place] [phone] (30 min) Complex 07/18/2018 Patient Education: Patient Medication Summary Completed 07/18/2018 Referral: Roni Roberts pt will be notified by there office to schedule Initiated 07/03/2018 Care Plan: Referral Order SNOMED-CT : [id number] Pending 07/01/2018 Visit Plan: Abscess/Cellulitis - The [...] stomach pain. 06/28/2018 Appointment: Gloria Scott WPtel: [facility] (30 min) Complex 06/28/2018 Patient Education: Patient Medication Summary Completed 06/28/2018 Visit Plan: Cellulitis-right krjdrh-idblehnq-bme bactroban ointment until healed completely-call with any concerns 06/17/2018 Appointment: Tamy Lugo WPtel: [facility]7 [phone] (15 min) Moderate 06/17/2018 Patient Education: [...] warmth, discharge. 06/05/2018 Appointment: Gloria Scott WPtel: [facility]0 [facility] (30 min) Complex 06/05/2018 Patient Education: Patient Medication Summary Completed 06/05/2018 Patient Education: Diabetes Completed 06/05/2018 Referral: Jesus Darby [facility] Referral Initiated 04/19/2018 Care Plan: Referral Order SNOMED-CT : [id number] Pending 03/27/2018 Visit Plan: Esophageal Reflux - [...] allergy spray. 03/26/2018 Appointment: Gloria Scott WPtel: [facility]5 [facility] (15 min) Moderate 03/26/2018 Patient Education: Patient Medication Summary Completed 03/26/2018 [facility]ment[phone] ([facility]) Moderate 03/25/2018 Visit Plan: Skin [...] and bandaids. 03/14/2018 Appointment: Gloria Scott WPtel: [address] [place] [phone] (15 min) Moderate 03/14/2018 Patient Education: Patient [...] not improve 03/07/2018 Appointment: Gloria Scott WPtel: [facility] (15 min) Moderate 03/07/2018 Patient Education: [...] acutely worsen. 02/19/2018 Appointment: Gloria Scott WPtel: [facility]1 [facility] (15 min) Moderate 02/19/2018 Patient Education: [...] warmth, discharge. 01/08/2018 Appointment: Gloria Scott WPtel: [facility] [address] (30 min) Complex 01/08/2018 Patient Education: [...] acutely worsen. 09/05/2017 Appointment: Gloria Scott WPtel: [facility]1 [facility] (15 min) Moderate 09/05/2017 Patient Education: [...] send RX 06/07/2017 Appointment: Gloria Scott WPtel: [facility]5 [facility] [place] (15 min) Moderate 06/07/2017 Patient [...] injection. 04/24/2017 Appointment: [phone] [place] (30 min) Complex 04/24/2017 Patient Education: Patient Medication Summary Completed 04/24/2017 Appointment: Gloria Scott WPtel: [phone] [facility] [place] (30 min) Complex 03/09/2017 Appointment: Gloria Scott WPtel: [address] [place], [place] [phone] [place] (30 min) Complex 02/13/2017 Visit Plan: Otitis [...] allergy spray. 01/09/2017 Appointment: Gloria Scott WPtel: [facility] [place] (10 min) Simple 01/09/2017 Patient Education: Patient Medication Summary Completed 01/09/2017 Patient Education: Obesity Completed 01/09/2017 Visit Plan: Vaginal candidiasis - will send RX - pt is to notify clinic if symptoms do not improve, if they worsen, or with any questions or concerns. 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 10/09/2016 Appointment: [facility]Ptel[facility] (30 min) Complex 10/09/2016 Patient Education: Patient Medication Summary Completed 10/09/2016 Patient Education: Obesity Completed 10/09/2016 Referral: Roni Roberts Referral Completed 09/18/2016 Care Plan: CT ABD & PELV W/CONTRAST LOINC : 91078-4 Pending 09/13/2016 Care Plan: Referral Order SNOMED-CT : [id number] Pending 09/13/2016 Visit Plan: Ongoing abdominal pain/hernia - will send RX - will refer - pt is to notify clinic if symptoms do not improve, if they worsen, or with any questions or concerns. 09/12/2016 Appointment: Gloria Scott WPtel: [phone] [facility] (30 min) Complex 09/12/2016 Patient Education: Patient Medication Summary Completed 09/12/2016 Patient Education: Obesity Completed 09/12/2016 Care Plan: Referral Order SNOMED-CT : [id number] Pending 09/12/2016 Visit Plan: Ongoing abdominal/epigastric pain [...] [address] [facility] (30 min) Complex 09/05/2016 Patient Education: [...] Appointment: [facility]el[phone] (10 min) Simple 06/16/2016 Patient Education: Patient [...] check. 06/13/2016 Appointment: Gloria Scott WPtel: [phone] [facility] (30 min) Complex 06/13/2016 Patient Education: Patient Medication Summary Completed 06/13/2016 Patient Education: Obesity Completed 06/13/2016 Appointment: Gloria Scott WPtel: [phone] [facility] (30 min) Complex 06/08/2016 Visit Plan: [...] check. 05/19/2016 Appointment: Tamy Lugo WPtel: [phone] [phone] [place] (30 min) Complex 05/19/2016 Patient [...] check. 05/08/2016 Appointment: Gloria Scott WPtel: [phone] [facility] (15 min) Moderate 05/08/2016 [...] the morning. 05/05/2016 Appointment: Tamy Lugo WPtel: [facility]5 [phone] (15 min) Moderate 05/05/2016 Patient Education: Patient Medication Summary Completed 05/05/2016 Patient Education: Obesity Completed 05/05/2016 Care Plan: Comp Metabolic Pending 05/05/2016 Appointment: Jocelyn Hess WPtel: [facility]5 [facility] Surgical Procedure 04/17/2016 Appointment: Injection 04/13/2016 Patient Education: Patient Medication Summary Completed 04/13/2016 Visit Plan: Right shoulder pain - will refer to PT - The pt is to use prn antiinflammatories to manage acute pain. The patient is to call the office if the pain is worsening or does not improve. 04/10/2016 Appointment: Gloria Scott WPtel: [facility]5 [facility] (30 min) Complex 04/10/2016 [...] Appointment: [facility]Ptel: [phone] [facility] (15 min) Moderate 04/06/2016 Patient Education: Patient [...] order [place] 02/28/2016 Appointment: [facility]el: [phone] (30 min) Complex 02/28/2016 Patient Education: Patient Medication Summary Completed 02/28/2016 Patient Education: Obesity Completed 02/28/2016 Appointment: [facility]el[phone] (15 min) Moderate 01/31/2016 Visit Plan: Diabetes [...] prn. 12/23/2015 Appointment: [facility]el[phone] [facility] 12/23/2015 Patient Education: Patient Medication [...] TO BLOOD IN THE LAB. [facility] : 90837-4 Pending 08/13/2015 Visit Plan: Hypertension - uncontrolled [...] Referral: Roni Roberts Referral Com[facility] [place] [facility] Ref[facility] Initiated Referral: Roni Roberts Referral [...] Mellitus - Uncontrolled - Will refer to fire alarm installer - I have recommended for the patient [...] Mellitus - Uncontrolled - Will refer to fire alarm installer - I have recommended for the patient [...] with any questions or concerns. . Cellulitis-right hlzxjw-ubqyigou-mdt bactroban ointment until healed completely-call with any [...]
--- OUTSIDE RECORDS SUMMARY | 2018-12-17 03:38 | XMS REPORT | CCD ---
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 Name Role Phone PP Unavailable CCM Unavailable Summary Purpose Interface Exchange Insurance Providers Payer name Policy type / Coverage type Covered republican ID Effective Begin Date Effective End Date [facility] Commercial Insurance [id number] Unknown Unknown Family history Father Diagnosis Age At Onset Hypertension Unknown Arthritis Unknown Mother Diagnosis Age At Onset Arthritis Unknown Hyperlipidemia Unknown Daughter Diagnosis Age At Onset Asthma Unknown Social History Social History Element Codes Description Effective Dates Marital status Unknown Darin 08/03/2015 Number of children Unknown 1 08/03/[address]: 8260405 Quit less than 5 years ago 08/03/2015 [...] Fill Instructions Lyrica 100 mg capsule RxNorm: 247527 1 Capsule(s) PO TID 07/25/2018 10/16/2018 Active Lyrica 100 mg capsule RxNorm: 563584 1 Capsule(s) PO TID 07/25/2018 07/24/2018 Inactive mupirocin 2 % topical ointment RxNorm: 116222 1 Application TOP daily 07/22/2018 07/28/2018 Active ibuprofen 800 mg tablet RxNorm: 274328 1 Tablet(s) PO TID as needed for pain 07/22/2018 07/31/2018 Active hydrocodone 7.5 mg-acetaminophen 325 mg tablet RxNorm: 523459 1 Tablet(s) PO Q4H as needed 07/18/2018 08/16/2018 Active promethazine 25 mg tablet RxNorm: 618498 TABLET(S) TAKE ONE TABLET BY MOUTH EVERY 6 TO 8 HOURS NEEDED 07/05/2018 No Stop Date Active hyoscyamine 0.125 mg sublingual tablet RxNorm: 0426551 1 Tablet(s) SL TID as needed diarrhea 06/28/2018 07/07/2018 Inactive mupirocin 2 % topical ointment RxNorm: 446521 1 Application TOP BID 06/17/2018 06/26/2018 Inactive mupirocin 2 % topical ointment RxNorm: 276800 1 Application TOP BID 06/05/2018 No Stop Date Active Keflex 500 mg capsule RxNorm: 023002 1 Capsule(s) PO TID 06/05/2018 06/11/2018 Inactive ceftriaxone 500 mg solution for injection RxNorm: 2681170 Inj 06/05/2018 06/05/2018 Inactive Diflucan 150 mg tablet RxNorm: 828226 1 Tablet(s) PO daily 06/05/2018 07/02/2018 Inactive Protonix 40 mg tablet,delayed release RxNorm: 526119 1 Tablet(s) PO BID x 1 week then daily 03/26/2018 No Stop Date Active Phenergan with Codeine Syrup RxNorm: 5-10 ML PO QID as needed cough 03/19/2018 No Stop Date Active promethazine 25 mg tablet RxNorm: 194899 Tablet(s) TAKE ONE TABLET BY MOUTH EVERY 6 TO 8 HOURS NEEDED 03/15/2018 07/04/2018 Inactive Singulair 10 mg tablet RxNorm: 273271 1 Tablet(s) PO daily 03/14/2018 04/12/2018 Inactive metoprolol succinate ER 100 mg tablet,extended release 24 hr RxNorm: 703332 1 Tablet(s) PO daily 03/07/2018 04/05/2018 Inactive Zithromax Z-Rashid 250 mg tablet RxNorm: 321845 1 Tablet(s) PO UD 03/07/2018 03/07/2018 Inactive prednisone 20 mg tablet RxNorm: 689150 2 Tablet(s) PO daily 03/07/2018 03/11/2018 Inactive albuterol sulfate 2.5 mg/3 mL (0.083 %) solution for nebulization RxNorm: 593975 3 Milliliter(s) INH Q4-6H as needed dyspnea 02/19/2018 No Stop Date Active Diflucan 150 mg tablet RxNorm: 784634 Tablet(s) TAKE ONE TABLET BY MOUTH ONCE DAILY FOR 7 DAYS THEN TAKE ONE TABLET BY MOUTH ONCE A WEEK 02/19/2018 06/04/2018 Inactive Levaquin 500 mg tablet RxNorm: 736829 1 Tablet(s) PO daily 02/19/2018 02/25/2018 Inactive prednisone 20 mg tablet RxNorm: 379079 2 Tablet(s) PO daily 02/19/2018 02/23/2018 Inactive Kenalog 40 mg/mL suspension for injection RxNorm: 1891652 15. Milliliter(s) Inj 02/19/2018 02/19/2018 Inactive hydrocodone 7.5 mg-acetaminophen 325 mg tablet RxNorm: 848136 1 Tablet(s) PO Q4H as needed 02/05/2018 03/06/2018 Inactive clindamycin HCl 300 mg capsule RxNorm: 601529 1 Capsule(s) PO TID 01/09/2018 01/15/2018 Inactive promethazine 25 mg tablet RxNorm: 362766 Tablet(s) TAKE ONE TABLET BY MOUTH EVERY 6 TO 8 HOURS NEEDED 01/08/2018 03/14/2018 Inactive Diflucan 150 mg tablet RxNorm: 395878 Tablet(s) TAKE ONE TABLET BY MOUTH ONCE DAILY FOR 7 DAYS THEN TAKE ONE TABLET BY MOUTH ONCE A WEEK 01/08/2018 02/18/2018 Inactive Bactrim DS 800 mg-160 mg tablet RxNorm: 127112 1 Tablet(s) PO BID 01/08/2018 01/17/2018 Inactive prednisone 20 mg tablet RxNorm: 255566 2 Tablet(s) PO daily 11/23/2017 11/27/2017 Inactive Zithromax Z-Rashid 250 mg tablet RxNorm: 823184 1 Tablet(s) PO UD 09/05/2017 02/11/2018 Inactive Kenalog 40 mg/mL suspension for injection RxNorm: 3311137 Milliliter(s) Inj 09/05/2017 09/05/2017 Inactive prednisone 20 mg tablet RxNorm: 365671 2 Tablet(s) PO daily 09/05/2017 09/09/2017 Inactive ibuprofen 800 mg tablet RxNorm: 789749 1 Tablet(s) PO TID 07/27/2017 02/21/2018 Inactive metoprolol succinate ER 100 mg tablet,extended release 24 hr RxNorm: 668008 TAKE ONE TABLET BY MOUTH ONCE DAILY 06/20/2017 No Stop Date Active alprazolam 0.5 mg tablet RxNorm: 695810 1 Tablet(s) PO Q8 as needed 06/20/2017 07/09/2017 Inactive Zithromax Z-Rashid 250 mg tablet RxNorm: 483619 1 Tablet(s) PO UD 06/15/2017 07/25/2017 Inactive Xopenex HFA 45 mcg/actuation aerosol inhaler RxNorm: 899386 INHALE ONE PUFF INTO LUNGS NEEDED 06/13/2017 07/14/2017 Inactive Xopenex 1.25 mg/3 mL solution for nebulization RxNorm: 758151 Milliliter(s) USE ONE VIAL IN NEBULIZER THREE TIMES DAILY 06/08/2017 No Stop Date Active Flovent HFA 44 mcg/actuation aerosol inhaler RxNorm: 653927 2 Puff(s) INH BID 06/08/2017 No Stop Date Active potassium chloride ER 10 mEq tablet,extended release RxNorm: 282175 1 Tablet(s) PO daily 06/08/2017 06/10/2017 Inactive Lasix 20 mg tablet RxNorm: 050960 1 Tablet(s) PO daily 06/08/2017 06/10/2017 Inactive Xopenex HFA 45 mcg/actuation aerosol inhaler RxNorm: 705179 INHALE ONE PUFF INTO LUNGS NEEDED 06/08/2017 06/12/2017 Inactive triamcinolone acetonide 0.025 % topical cream RxNorm: 8391124 1 Application TOP BID 06/07/2017 No Stop Date Active ibuprofen 800 mg tablet RxNorm: 956927 1 Tablet(s) PO TID 06/07/2017 07/06/2017 Inactive cyclobenzaprine 5 mg tablet RxNorm: 822038 1/2 Tablet(s) PO TID as needed muscle spasms 05/28/2017 06/01/2017 Inactive Diflucan 150 mg tablet RxNorm: 561562 TAKE ONE TABLET BY MOUTH ONCE DAILY FOR 7 DAYS THEN TAKE ONE TABLET BY MOUTH ONCE A WEEK 05/28/2017 01/07/2018 Inactive bumetanide 1 mg tablet RxNorm: 702778 TAKE ONE TABLET BY MOUTH TWICE DAILY 05/25/2017 No Stop Date Active meloxicam 7.5 mg tablet RxNorm: 900940 1 Tablet(s) PO daily as needed 05/25/2017 07/23/2017 Inactive Xopenex 1.25 mg/3 mL solution for nebulization RxNorm: 650407 USE ONE VIAL IN NEBULIZER THREE TIMES DAILY 05/25/2017 06/07/2017 Inactive Protonix 40 mg tablet,delayed release RxNorm: 366793 1 Tablet(s) PO daily 05/08/2017 11/03/2017 Inactive Protonix 40 mg tablet,delayed release RxNorm: 080128 1 Tablet(s) PO daily 05/04/2017 05/03/2017 Inactive Protonix 40 mg tablet,delayed release RxNorm: 267371 1 Tablet(s) PO daily 05/04/2017 05/07/2017 Inactive meloxicam 7.5 mg tablet RxNorm: 377359 1 Tablet(s) PO daily as needed 04/25/2017 04/24/2017 Inactive meloxicam 7.5 mg tablet RxNorm: 239596 1 Tablet(s) PO daily as needed 04/25/2017 05/04/2017 Inactive promethazine 25 mg tablet RxNorm: 133852 TAKE ONE TABLET BY MOUTH EVERY 6 TO 8 HOURS NEEDED 04/25/2017 01/07/2018 Inactive Kenalog 40 mg/mL suspension for injection RxNorm: 3641828 1 Milliliter(s) Inj 04/24/2017 04/24/2017 Inactive cyclobenzaprine 5 mg tablet RxNorm: 265612 1/2 Tablet(s) PO TID as needed muscle spasms 04/24/2017 04/28/2017 Inactive Xopenex HFA 45 mcg/actuation aerosol inhaler RxNorm: 509585 INHALE ONE PUFF INTO LUNGS NEEDED 03/30/2017 04/14/2017 Inactive Humalog KwikPen 200 unit/mL (3 mL) subcutaneous RxNorm: 7615272 INJECT 35 UNITS SUBCUTANEOUSLY BEFORE MEAL(S) 03/30/2017 06/05/2017 Inactive promethazine 25 mg tablet RxNorm: 134850 Tablet(s) TAKE ONE TABLET BY MOUTH EVERY 6 TO 8 HOURS NEEDED 03/12/2017 03/26/2017 Inactive cyclobenzaprine 10 mg tablet RxNorm: 435294 TAKE ONE TABLET BY MOUTH ONCE DAILY NEEDED 03/06/2017 03/15/2017 Inactive lidocaine 5 % topical patch RxNorm: 3309999 USE ONE PATCH TOPICALLY DAILY. 12 HOURS ON AND THEN 12 HOURS OFF. 03/06/2017 03/15/2017 Inactive Humalog KwikPen 200 unit/mL (3 mL) subcutaneous RxNorm: 9485241 INJECT 35 UNITS SUBCUTANEOUSLY BEFORE MEAL(S) 02/20/2017 03/25/2017 Inactive promethazine 25 mg tablet RxNorm: 617567 Tablet(s) TAKE ONE TABLET BY MOUTH EVERY 6 TO 8 HOURS NEEDED 02/20/2017 03/06/2017 Inactive Xopenex HFA 45 mcg/actuation aerosol inhaler RxNorm: 960237 INHALE ONE PUFF INTO LUNGS NEEDED 02/20/2017 03/07/2017 Inactive bumetanide 1 mg tablet RxNorm: 944012 TAKE ONE TABLET BY MOUTH TWICE DAILY 02/15/2017 05/15/2017 Inactive bumetanide 1 mg tablet RxNorm: 174821 TAKE ONE TABLET BY MOUTH TWICE DAILY 01/15/2017 02/13/2017 Inactive metoprolol succinate ER 100 mg tablet,extended release 24 hr RxNorm: 875822 TAKE ONE TABLET BY MOUTH ONCE DAILY 01/11/2017 06/19/2017 Inactive Zithromax Z-Rashid 250 mg tablet RxNorm: 233403 1 Tablet(s) PO UD 01/09/2017 03/13/2017 Inactive meclizine 25 mg tablet RxNorm: 142525 1 Tablet(s) PO TID as needed 01/09/2017 01/18/2017 Inactive Kenalog 40 mg/mL suspension for injection RxNorm: 1174580 Milliliter(s) Inj 01/09/2017 01/09/2017 Inactive promethazine 25 mg tablet RxNorm: 190236 Tablet(s) TAKE ONE TABLET BY MOUTH EVERY 6 TO 8 HOURS NEEDED 12/29/2016 01/12/2017 Inactive Voltaren 1 % topical gel RxNorm: 656343 APPLY TOPICALLY TO AFFECTED AREA TWICE DAILY 12/25/2016 01/13/2017 Inactive cyclobenzaprine 10 mg tablet RxNorm: 528510 TAKE ONE TABLET BY MOUTH NEEDED 12/22/2016 12/31/2016 Inactive lidocaine 5 % topical patch RxNorm: 3627031 USE ONE PATCH TOPICALLY DAILY. 12 HOURS ON AND THEN 12 HOURS OFF. 12/22/2016 12/31/2016 Inactive hydrocodone 7.5 mg-acetaminophen 325 mg tablet RxNorm: 127313 1 Tablet(s) PO Q4H as needed 12/22/2016 01/20/2017 Inactive bumetanide 1 mg tablet RxNorm: 758366 TAKE ONE TABLET BY MOUTH TWICE DAILY 12/17/2016 01/14/2017 Inactive promethazine 25 mg tablet RxNorm: 106633 Tablet(s) TAKE ONE TABLET BY MOUTH EVERY 6 TO 8 HOURS NEEDED 11/16/2016 12/15/2016 Inactive spironolactone 50 mg tablet RxNorm: 252760 TAKE ONE TABLET BY MOUTH TWICE DAILY 11/15/2016 05/13/2017 Inactive Basaglar KwikPen 100 unit/mL (3 mL) subcutaneous RxNorm: 9206767 Unit(s) INJECT 35 UNITS IN THE MORNING AND 50 UNITS IN THE EVENING SUBCUTANEOUSLY 11/15/2016 03/14/2017 Inactive cyclobenzaprine 10 mg tablet RxNorm: 096805 TAKE ONE TABLET BY MOUTH NEEDED 11/15/2016 12/04/2016 Inactive lidocaine 5 % topical patch RxNorm: 8100041 1 Patch TOP daily . 12 HOURS ON, 12 HOURS OFF 11/15/2016 12/04/2016 Inactive lidocaine 4 % topical patch RxNorm: 3929052 1 Patch TOP on for 12 hours and off for 12 hours 11/14/2016 11/14/2016 Inactive promethazine 25 mg tablet RxNorm: 343685 TAKE ONE TABLET BY MOUTH EVERY 6 TO 8 HOURS NEEDED 11/14/2016 11/15/2016 Inactive Basaglar KwikPen 100 unit/mL (3 mL) subcutaneous RxNorm: 2689778 INJECT 35 UNITS IN THE MORNING AND 50 UNITS IN THE EVENING SUBCUTANEOUSLY 11/14/2016 11/14/2016 Inactive cyclobenzaprine 10 mg tablet RxNorm: 848816 TAKE ONE TABLET BY MOUTH NEEDED 11/14/2016 11/14/2016 Inactive spironolactone 50 mg tablet RxNorm: 688342 TAKE ONE TABLET BY MOUTH TWICE DAILY 11/14/2016 11/14/2016 Inactive Diflucan 150 mg tablet RxNorm: 468211 1 Tablet(s) PO as needed prophylactic after sexual intercourse 10/30/2016 No Stop Date Active hydrocodone 7.5 mg-acetaminophen 325 mg tablet RxNorm: 658390 1 Tablet(s) PO Q4H as needed 10/30/2016 11/28/2016 Inactive clotrimazole 100 mg vaginal tablet RxNorm: 968735 1 Tablet(s) VAG QW 10/30/2016 11/28/2016 Inactive Humalog KwikPen 200 unit/mL (3 mL) subcutaneous RxNorm: 2017995 35 Unit(s) SQ AC 10/30/2016 02/19/2017 Inactive QS 30 day supply Bydureon 2 mg/0.65 mL subcutaneous pen injector RxNorm: 4151989 2 Milligram(s) SQ QW 10/30/2016 11/28/2016 Inactive Basaglar KwikPen 100 unit/mL (3 mL) subcutaneous RxNorm: 3017583 Unit(s) SQ 35 units in the morning and 50 units in the evening 10/30/2016 11/13/2016 Inactive QS 30 day supply cyclobenzaprine 10 mg tablet RxNorm: 743042 TAKE ONE TABLET BY MOUTH NEEDED 10/27/2016 11/05/2016 Inactive Diflucan 150 mg tablet RxNorm: 084551 1 Tablet(s) PO daily x 7 days then once a week 10/27/2016 10/29/2016 Inactive promethazine 25 mg tablet RxNorm: 103320 TAKE ONE TABLET BY MOUTH EVERY 6 TO 8 HOURS NEEDED 10/27/2016 11/10/2016 Inactive Diflucan 150 mg tablet RxNorm: 420152 1 Tablet(s) PO daily x 7 days then once a week 10/09/2016 10/15/2016 Inactive Diflucan 150 mg tablet RxNorm: 426935 1 Tablet(s) PO daily 09/20/2016 09/26/2016 Inactive Cipro 500 mg tablet RxNorm: 349901 1 Tablet(s) PO BID 09/12/2016 09/21/2016 Inactive Flagyl 500 mg tablet RxNorm: 885954 1 Tablet(s) PO TID 09/12/2016 09/21/2016 Inactive Diflucan 150 mg tablet RxNorm: 832079 1 Tablet(s) PO daily 09/06/2016 09/12/2016 Inactive hydrocodone 7.5 mg-acetaminophen 325 mg tablet RxNorm: 279113 1 Tablet(s) PO Q4H as needed 07/12/2016 08/10/2016 Inactive Xopenex 1.25 mg/3 mL solution for nebulization RxNorm: 483433 3 Milliliter(s) INH TID 06/16/2016 05/24/2017 Inactive cefdinir 300 mg capsule RxNorm: 348497 1 Capsule(s) PO BID 06/16/2016 06/25/2016 Inactive Mobic 7.5 mg tablet RxNorm: 005380 1 Tablet(s) PO daily 06/16/2016 06/25/2016 Inactive Levaquin 500 mg tablet RxNorm: 985946 1 Tablet(s) PO daily 06/16/2016 06/22/2016 Inactive cyclobenzaprine 10 mg tablet RxNorm: 653706 1 Tablet(s) PO PRN as needed 06/14/2016 06/23/2016 Inactive promethazine 25 mg tablet RxNorm: 089210 TAKE ONE TABLET BY MOUTH EVERY 6 TO 8 HOURS NEEDED 06/14/2016 06/28/2016 Inactive Xopenex HFA 45 mcg/actuation aerosol inhaler RxNorm: 897573 1 Puff(s) INH PRN 06/14/2016 07/15/2016 Inactive pen needle, diabetic 32 gauge x 5/16" RxNorm: 1 use Miscellaneous AC & HS 06/13/2016 No Stop Date Active QS 30 day supply Humalog KwikPen 200 unit/mL (3 mL) subcutaneous RxNorm: 9327006 10 Unit(s) SQ AC 06/13/2016 10/29/2016 Inactive QS 30 day supply Basaglar KwikPen 100 unit/mL (3 mL) subcutaneous RxNorm: 1683784 22 units in the morning and 35 in the evening. Unit(s) SQ 06/13/2016 10/29/2016 Inactive QS 30 day supply Tivorbex 20 mg capsule RxNorm: 5615639 1 Capsule(s) PO TID as needed 06/13/2016 06/13/2016 Inactive metoprolol succinate ER 100 mg tablet,extended release 24 hr RxNorm: 855063 TAKE ONE TABLET BY MOUTH ONCE DAILY 06/13/2016 10/10/2016 Inactive hydrocodone 7.5 mg-acetaminophen 325 mg tablet RxNorm: 042248 1 Tablet(s) PO Q4H as needed 06/13/2016 07/11/2016 Inactive Voltaren 1 % topical gel RxNorm: 700139 APPLY TOPICALLY TO AFFECTED AREA TWICE DAILY 05/30/2016 07/08/2016 Inactive alprazolam 0.5 mg tablet RxNorm: 217130 1 Tablet(s) PO Q8 as needed 05/19/2016 No Stop Date Active cyclobenzaprine 10 mg tablet RxNorm: 505547 1 Tablet(s) PO PRN as needed 05/19/2016 05/28/2016 Inactive bumetanide 1 mg tablet RxNorm: 073276 TAKE ONE TABLET BY MOUTH TWICE DAILY 05/19/2016 06/17/2016 Inactive Sprintec (28) 0.25 mg-35 mcg tablet RxNorm: 149961 1 Tablet(s) PO UD 05/08/2016 No Stop Date Active Lantus Solostar 100 unit/mL (3 mL) subcutaneous insulin pen RxNorm: 112566 Unit(s) SQ UD 15units qam 30 units qhs 05/08/2016 No Stop Date Active Humalog KwikPen 200 unit/mL (3 mL) subcutaneous RxNorm: 5701104 10 Unit(s) SQ AC 05/08/2016 06/12/2016 Inactive bumetanide 1 mg tablet RxNorm: 699803 TAKE ONE TABLET BY MOUTH TWICE DAILY 04/28/2016 05/18/2016 Inactive Voltaren 1 % topical gel RxNorm: 135972 1 Application TOP BID 04/28/2016 05/07/2016 Inactive cyclobenzaprine 10 mg tablet RxNorm: 680842 1 Tablet(s) PO PRN as needed 04/28/2016 05/07/2016 Inactive hydrocodone 7.5 mg-acetaminophen 325 mg tablet RxNorm: 570844 1 Tablet(s) PO Q4H as needed 04/18/2016 05/16/2016 Inactive Lantus Solostar 100 unit/mL (3 mL) subcutaneous insulin pen RxNorm: 114336 Unit(s) SQ UD 10 units QHS x5 days, if sugars are over 200 increase to 15 units x 5 days, if sugars over 200 increase to 20 units. 04/14/2016 05/07/2016 Inactive lidocaine 4 % topical patch RxNorm: 0715959 1 Patch TOP on for 12 hours and off for 12 hours 04/13/2016 11/13/2016 Inactive Voltaren 1 % topical gel RxNorm: 653427 1 Application TOP BID 04/10/2016 04/27/2016 Inactive metformin ER 500 mg 24 hr tablet,extended release RxNorm: 942293 1 Tablet(s) PO daily 04/06/2016 05/05/2016 Inactive Kenalog 40 mg/mL suspension for injection RxNorm: 0718371 1 Milliliter(s) Inj 04/06/2016 04/06/2016 Inactive cyclobenzaprine 10 mg tablet RxNorm: 018469 1 Tablet(s) PO PRN as needed 04/06/2016 04/27/2016 Inactive WelChol 3.75 gram oral powder packet RxNorm: 868281 1 packet PO daily 04/06/2016 07/04/2016 Inactive alprazolam 0.5 mg tablet RxNorm: 155598 1 Tablet(s) PO Q8 as needed 03/30/2016 06/19/2017 Inactive Levaquin 500 mg tablet RxNorm: 860973 1 Tablet(s) PO daily 03/30/2016 04/05/2016 Inactive metoprolol succinate ER 100 mg tablet,extended release 24 hr RxNorm: 216491 TAKE ONE TABLET BY MOUTH ONCE DAILY 03/16/2016 06/12/2016 Inactive Levaquin 500 mg tablet RxNorm: 035676 1 Tablet(s) PO daily 03/08/2016 03/14/2016 Inactive prednisone 20 mg tablet RxNorm: 004130 2 Tablet(s) PO daily 03/08/2016 03/12/2016 Inactive Xopenex HFA 45 mcg/actuation aerosol inhaler RxNorm: 868490 1 Puff(s) INH PRN 02/28/2016 06/13/2016 Inactive Phenergan with Codeine Syrup RxNorm: 5-10 ML PO QID as needed cough 02/28/2016 03/18/2018 Inactive Kenalog 40 mg/mL suspension for injection RxNorm: 4401622 1 Milliliter(s) Inj 02/28/2016 02/28/2016 Inactive Zithromax Z-Rashid 250 mg tablet RxNorm: 913670 1 Tablet(s) PO UD 02/28/2016 03/27/2016 Inactive alprazolam 0.5 mg tablet RxNorm: 793794 1 Tablet(s) PO Q8 as needed 02/24/2016 06/19/2017 Inactive glipizide 5 mg tablet RxNorm: 664444 1 Tablet(s) PO daily 01/18/2016 05/16/2016 Inactive Actos 15 mg tablet RxNorm: 110146 1 Tablet(s) PO daily 01/18/2016 02/16/2016 Inactive gabapentin 100 mg capsule RxNorm: 885726 1 Capsule(s) PO QHS 01/13/2016 03/12/2016 Inactive gabapentin 100 mg capsule RxNorm: 860082 1 Capsule(s) PO QHS 01/13/2016 01/12/2016 Inactive Bydureon 2 mg/0.65 mL subcutaneous pen injector RxNorm: 8916572 1 Milliliter(s) SQ QW 01/12/2016 01/11/2016 Inactive Bydureon 2 mg/0.65 mL subcutaneous pen injector RxNorm: 0383851 2/0.65ml Milligram(s) SQ QW 01/12/2016 05/16/2016 Inactive Bydureon 2 mg/0.65 mL subcutaneous pen injector RxNorm: 4979616 1 Milliliter(s) SQ QW 01/12/2016 01/11/2016 Inactive bumetanide 1 mg tablet RxNorm: 853543 TAKE ONE TABLET BY MOUTH TWICE DAILY 01/10/2016 04/08/2016 Inactive promethazine 25 mg tablet RxNorm: 831613 Tablet(s) Tablet(s) 1 Tablet(s) PO Q6-8H as needed 12/16/2015 04/13/2016 Inactive promethazine 25 mg tablet RxNorm: 671513 Tablet(s) 1 Tablet(s) PO Q6-8H as needed 12/10/2015 12/15/2015 Inactive Trulicity 0.75 mg/0.5 mL subcutaneous pen injector RxNorm: 1503785 INJECT ONE-HALF ML SUBCUTANEOUSLY ONCE A WEEK 12/10/2015 01/11/2016 Inactive glipizide 5 mg tablet RxNorm: 408626 1 Tablet(s) PO daily 12/10/2015 01/17/2016 Inactive bumetanide 1 mg tablet RxNorm: 975148 TAKE ONE TABLET BY MOUTH TWICE DAILY 12/10/2015 01/08/2016 Inactive promethazine 25 mg tablet RxNorm: 692635 Tablet(s) 1 Tablet(s) PO Q6-8H as needed 11/18/2015 12/09/2015 Inactive promethazine 25 mg tablet RxNorm: 707417 1 Tablet(s) PO Q6-8H as needed 11/16/2015 11/17/2015 Inactive glipizide 5 mg tablet RxNorm: 154986 1/2 Tablet(s) PO daily 11/16/2015 12/15/2015 Inactive promethazine 25 mg tablet RxNorm: 982809 Tablet(s) 1 Tablet(s) PO Q6-8H as needed 11/11/2015 12/10/2015 Inactive metoprolol tartrate 50 mg tablet RxNorm: 797451 1 Tablet(s) PO BID 11/11/2015 02/08/2016 Inactive Trulicity 0.75 mg/0.5 mL subcutaneous pen injector RxNorm: 2087695 .5 Milliliter(s) SQ QW 11/11/2015 01/11/2016 Inactive promethazine 25 mg tablet RxNorm: 497210 1 Tablet(s) PO Q6-8H as needed 10/28/2015 11/10/2015 Inactive nystatin 100,000 unit/gram topical cream RxNorm: 327358 1 Gram(s) TOP BID 10/27/2015 No Stop Date Active alprazolam 0.5 mg tablet RxNorm: 735208 1 Tablet(s) PO Q8 as needed 10/27/2015 03/29/2016 Inactive hydrocodone 7.5 mg-acetaminophen 325 mg tablet RxNorm: 007808 1 Tablet(s) PO Q4H as needed 10/27/2015 11/25/2015 Inactive Trulicity 0.75 mg/0.5 mL subcutaneous pen injector RxNorm: 5766055 .5 Milliliter(s) SQ QW 10/27/2015 11/10/2015 Inactive glipizide 5 mg tablet RxNorm: 084160 1 Tablet(s) PO daily 10/27/2015 11/25/2015 Inactive hydrocodone 7.5 mg-acetaminophen 325 mg tablet RxNorm: 639763 1 Tablet(s) PO Q4H as needed 10/26/2015 10/26/2015 Inactive alprazolam 0.5 mg tablet RxNorm: 602727 1 Tablet(s) PO PRN as needed 10/26/2015 10/26/2015 Inactive promethazine 25 mg tablet RxNorm: 827974 1 Tablet(s) PO Q6-8H as needed 10/26/2015 11/15/2015 Inactive glipizide 5 mg tablet RxNorm: 045046 1/2 Tablet(s) PO daily 10/13/2015 10/26/2015 Inactive cefdinir 300 mg capsule RxNorm: 641413 1 Capsule(s) PO BID 10/05/2015 10/14/2015 Inactive prednisone 20 mg tablet RxNorm: 036687 2 Tablet(s) PO daily 10/05/2015 10/09/2015 Inactive Diflucan 150 mg tablet RxNorm: 085952 1 Tablet(s) PO daily 10/05/2015 10/11/2015 Inactive Invokamet 50 mg-500 mg tablet RxNorm: 7149667 1 Tablet(s) PO daily 10/05/2015 11/03/2015 Inactive alprazolam 0.5 mg tablet RxNorm: 429376 1 Tablet(s) PO PRN as needed 10/01/2015 02/23/2016 Inactive promethazine 25 mg tablet RxNorm: 767277 1 Tablet(s) PO Q6-8H as needed 09/30/2015 10/25/2015 Inactive bumetanide 1 mg tablet RxNorm: 559857 TAKE ONE TABLET BY MOUTH TWICE DAILY 09/30/2015 10/29/2015 Inactive bumetanide 1 mg tablet RxNorm: 049017 TAKE ONE TABLET BY MOUTH TWICE DAILY 09/20/2015 12/18/2015 Inactive bumetanide 1 mg tablet RxNorm: 727232 1 Tablet(s) PO BID 09/20/2015 10/19/2015 Inactive metoprolol succinate ER 100 mg tablet,extended release 24 hr RxNorm: 930436 1 Tablet(s) PO daily 09/16/2015 03/13/2016 Inactive spironolactone 50 mg tablet RxNorm: 010860 1 Tablet(s) PO BID 09/16/2015 03/13/2016 Inactive alprazolam 0.5 mg tablet RxNorm: 464349 1 Tablet(s) PO PRN as needed 09/16/2015 10/25/2015 Inactive hydrocodone 7.5 mg-acetaminophen 325 mg tablet RxNorm: 908496 1 Tablet(s) PO Q4H as needed 09/16/2015 10/25/2015 Inactive Invokamet 50 mg-1,000 mg tablet RxNorm: 9408869 1 Tablet(s) PO daily 09/06/2015 09/05/2015 Inactive Invokamet 50 mg-1,000 mg tablet RxNorm: 2691941 1 Tablet(s) PO daily 09/06/2015 12/04/2015 Inactive promethazine 25 mg tablet RxNorm: 813506 TAKE ONE TABLET BY MOUTH EVERY 6 TO 8 HOURS NEEDED 09/01/2015 09/16/2015 Inactive promethazine 25 mg tablet RxNorm: 051118 1 Tablet(s) PO Q6-8H as needed 08/27/2015 09/25/2015 Inactive metoprolol succinate ER 100 mg tablet,extended release 24 hr RxNorm: 894960 1 Tablet(s) PO daily 08/20/2015 09/15/2015 Inactive bumetanide 1 mg tablet RxNorm: 657063 1 Tablet(s) PO BID 08/20/2015 09/18/2015 Inactive Bumex 1 mg tablet RxNorm: 946597 1 Tablet(s) PO BID 08/20/2015 11/15/2015 Inactive Kenalog 40 mg/mL suspension for injection RxNorm: 5333183 Milliliter(s) Inj 08/20/2015 08/20/2015 Inactive bumetanide 1 mg tablet RxNorm: 851860 1 Tablet(s) PO BID 08/20/2015 08/19/2015 Inactive Levaquin 500 mg tablet RxNorm: 862531 1 Tablet(s) PO daily 08/20/2015 08/26/2015 Inactive promethazine 25 mg tablet RxNorm: 265141 1 Tablet(s) PO Q6-8H as needed 08/06/2015 08/26/2015 Inactive metformin 500 mg tablet RxNorm: 974616 Tablet(s) PO 500mg in the morning and 1000mg at night No Start Date 09/16/2015 Inactive Lantus Solostar 100 unit/mL (3 mL) subcutaneous insulin pen RxNorm: 737460 Unit(s) SQ UD 10 units QHS x 5 days, if blood sugars are above 200 increase to 15 units x 5 days, if still 200 increase to 20 units. No Start Date 04/13/2016 Inactive alprazolam 0.5 mg tablet RxNorm: 201061 1 Tablet(s) PO PRN as needed No Start Date 09/15/2015 Inactive cyclobenzaprine 10 mg tablet RxNorm: 492321 1 Tablet(s) PO PRN as needed No Start Date 04/05/2016 Inactive lidocaine 4 % topical patch RxNorm: 4485133 1 Patch TOP on for 12 hours and off for 12 hours No Start Date 04/12/2016 Inactive metoprolol tartrate 50 mg tablet RxNorm: 544900 1 Tablet(s) PO BID No Start Date 11/10/2015 Inactive spironolactone 50 mg tablet RxNorm: 378877 1 Tablet(s) PO BID No Start Date 09/15/2015 Inactive hydrocodone 7.5 mg-acetaminophen 325 mg tablet RxNorm: 634224 1 Tablet(s) PO Q4H as needed No Start Date 09/15/2015 Inactive promethazine 25 mg tablet RxNorm: 342346 1 Tablet(s) PO PRN as needed No Start Date 08/05/2015 Inactive Medication Administered Medication Codes Instructions Start Date Status ceftriaxone 500 mg solution for injection RxNorm: 2374268 06/05/2018 No longer Active Kenalog 40 mg/mL suspension for injection RxNorm: 6921688 15.Milliliter 02/19/2018 No longer Active Kenalog 40 mg/mL suspension for injection RxNorm: 7841377 Milliliter 09/05/2017 No longer Active Kenalog 40 mg/mL suspension for injection RxNorm: 8569650 1Milliliter 04/24/2017 No longer Active Kenalog 40 mg/mL suspension for injection RxNorm: 3541757 Milliliter 01/09/2017 No longer Active Kenalog 40 mg/mL suspension for injection RxNorm: 1278220 1Milliliter 04/06/2016 No longer Active Kenalog 40 mg/mL suspension for injection RxNorm: 8937208 1Milliliter 02/28/2016 No longer Active Kenalog 40 mg/mL suspension for injection RxNorm: 4895853 Milliliter 08/20/2015 No longer Active Immunizations Vaccine [...] Code Item Item Code Result Date %Hba1C Dls462 % HbA1c 40614- 6 8.4 % 06/06/2018 %Hba1C Krn390 Gluc Ave 194 mg/dL 06/06/2018 Lipid Ord30 CHOL 233 mg/dL 03/14/2018 Lipid Ord30 HDL 38.0 mg/dl 03/14/2018 Lipid Ord30 TRIG 143 mg/dL 03/14/2018 Lipid Ord30 LDL 166 mg/dL 03/14/2018 Lipid Ord30 C/HDL 6.1 Ratio 03/14/2018 %Hba1C Oti876 % HbA1c 95420- 6 9.8 % 03/14/2018 %Hba1C Lhv514 Gluc Ave 235 mg/dL 03/14/2018 Tsh Ord6 TSH (3rd IS) 1.09 uIU/mL 03/14/2018 Comp Metabolic Shn118 NA 137 mEq/L 03/14/2018 Comp Metabolic Mci717 K 4.6 mEq/L 03/14/2018 Comp Metabolic Vss084 CL 100 mEq/L 03/14/2018 Comp Metabolic Xjf091 CO2 27.0 mEq/L 03/14/2018 Comp Metabolic Jwm959 ANION GAP 15 03/14/2018 Comp Metabolic Cgd354 GLUCOSE 144 mg/dL 03/14/2018 Comp Metabolic Yvm875 Creat 0.5 mg/dL 03/14/2018 Comp Metabolic Faz018 eGFR 138 ml/min/1.73m2 03/14/2018 Comp Metabolic Lig988 BUN 9 mg/dL 03/14/2018 Comp Metabolic Kam697 B/C Ratio 17.6 Ratio 03/14/2018 Comp Metabolic Obm402 CALCIUM 10.0 mg/dL 03/14/2018 Comp Metabolic Ymm207 ALK PHOS 102 U/L 03/14/2018 Comp Metabolic Nya147 AST(SGOT) 31 U/L 03/14/2018 Comp Metabolic Iww205 ALT(SGPT) 41 U/L 03/14/2018 Comp Metabolic Koi852 BILI T 0.5 mg/dL 03/14/2018 Comp Metabolic Ncv122 ALBUMIN 4.3 g/dL 03/14/2018 Comp Metabolic Xam825 TPRO 6.8 g/dL 03/14/2018 Comp Metabolic Gaf623 GLOB 2.5 g/dL 03/14/2018 Comp Metabolic Yle987 A/G Ratio 1.8 Ratio 03/14/2018 Comp Metabolic Yvi688 Osmo 275 mOsmo 03/14/2018 Cbc With Differential [...] 90.5 fl 03/14/2018 Cbc With Differential Ord2 [place]% 5.6 % 03/14/2018 Cbc With Differential Ord2 [...] 4.31 K/ul 03/14/2018 Cbc With Differential Ord2 [place] ABS# 0.9 K/ul 03/14/2018 Cbc With Differential Ord2 Eos ABS# 0.2 K/ul 03/14/2018 Cbc With Differential Ord2 Baso ABS# 0.1 K/ul 03/14/2018 %Hba1C Hwp147 % HbA1c 13214- 6 8.8 % 06/13/2017 %Hba1C Sdv016 Gluc Ave 206 mg/dL 06/13/2017 Tsh Ord6 [...] 30.2 pg 06/13/2017 Cbc With Differential Ord2 [place]% 4.9 % 06/13/2017 Cbc With Differential Ord2 [...] 3.21 K/ul 06/13/2017 Cbc With Differential Ord2 [place] ABS# 0.7 K/ul 06/13/2017 Cbc With Differential Ord2 Eos ABS# 0.2 K/ul 06/13/2017 Cbc With Differential Ord2 Baso ABS# 0.1 K/ul 06/13/2017 Lipid Ord30 CHOL 219 mg/dL 06/13/2017 Lipid Ord30 HDL 40.0 mg/dl 06/13/2017 Lipid Ord30 TRIG 200 mg/dL 06/13/2017 Lipid Ord30 LDL 139 mg/dL 06/13/2017 Lipid Ord30 C/HDL 5.5 Ratio 06/13/2017 Comp Metabolic Zer636 NA 139 mEq/L 06/13/2017 Comp Metabolic Eyc790 K 4.4 mEq/L 06/13/2017 Comp Metabolic Air914 CL 100 mEq/L 06/13/2017 Comp Metabolic Vrf064 CO2 29.0 mEq/L 06/13/2017 Comp Metabolic Ovv205 ANION GAP 14 06/13/2017 Comp Metabolic Uel496 GLUCOSE 257 mg/dL 06/13/2017 Comp Metabolic Ewt147 Creat 0.5 mg/dL 06/13/2017 Comp Metabolic Gdg591 eGFR 145 ml/min/1.73m2 06/13/2017 Comp Metabolic Dos360 BUN 13 mg/dL 06/13/2017 Comp Metabolic Fth619 B/C Ratio 26.5 Ratio 06/13/2017 Comp Metabolic Jsh404 CALCIUM 9.7 mg/dL 06/13/2017 Comp Metabolic Sxu698 ALK PHOS 98 U/L 06/13/2017 Comp Metabolic Onn580 AST(SGOT) 30 U/L 06/13/2017 Comp Metabolic Moi287 ALT(SGPT) 43 U/L 06/13/2017 Comp Metabolic Pgx502 BILI T 0.5 mg/dL 06/13/2017 Comp Metabolic Yuh290 ALBUMIN 4.0 g/dL 06/13/2017 Comp Metabolic Fls557 TPRO 6.4 g/dL 06/13/2017 Comp Metabolic Pnq797 GLOB 2.4 g/dL 06/13/2017 Comp Metabolic Els238 A/G Ratio 1.7 Ratio 06/13/2017 Comp Metabolic Gpu094 Osmo 286 mOsmo 06/13/2017 %Hba1C Dnp499 % HbA1c 01379- 6 11.1 % 2016 %Hba1C Qfo416 Gluc Ave 272 mg/dL 2016 C-Reactive Protein Qnt Crqnt CRP 4.7 mg/dl 2016 Comp Metabolic Mwl756 NA 136 mEq/L 2016 Comp Metabolic Ryw730 K 4.1 mEq/L 2016 Comp Metabolic Zcd679 CL 96 mEq/L 2016 Comp Metabolic Uvd304 CO2 29.0 mEq/L 2016 Comp Metabolic Vxz466 ANION GAP 15 2016 Comp Metabolic Ult315 GLUCOSE 291 mg/dL 2016 Comp Metabolic Ysv482 Creat 0.4 mg/dL 2016 Comp Metabolic Ksy679 eGFR 165 ml/min/1.73m2 2016 Comp Metabolic Ebx148 BUN 11 mg/dL 2016 Comp Metabolic Enb687 B/C Ratio 25.0 Ratio 2016 Comp Metabolic Jus083 CALCIUM 9.4 mg/dL 2016 Comp Metabolic Axf980 ALK PHOS 111 U/L 2016 Comp Metabolic Jko824 AST(SGOT) 46 U/L 2016 Comp Metabolic Acb392 ALT(SGPT) 60 U/L 2016 Comp Metabolic Rzh687 BILI T 0.4 mg/dL 2016 Comp Metabolic Zmh245 ALBUMIN 4.0 g/dL 2016 Comp Metabolic Jeg540 TPRO 6.5 g/dL 2016 Comp Metabolic Bpi831 GLOB 2.6 g/dL 2016 Comp Metabolic Xpx128 A/G Ratio 1.5 Ratio 2016 Comp Metabolic Ejv689 Osmo 282 mOsmo 2016 Cbc With Differential [...] 30.5 pg 2016 Cbc With Differential Ord2 [place]% 4.7 % 2016 Cbc With Differential Ord2 [...] 3.53 K/ul 2016 Cbc With Differential Ord2 [place] ABS# 0.7 K/ul 2016 Cbc With Differential Ord2 Eos ABS# 0.2 K/ul 2016 Cbc With Differential Ord2 Baso ABS# 0.1 K/ul 2016 Lipid Ord30 CHOL 228 mg/dL 05/05/2016 Lipid Ord30 HDL 42.0 mg/dl 05/05/2016 Lipid Ord30 TRIG 168 mg/dL 05/05/2016 Lipid Ord30 LDL 152 mg/dL 05/05/2016 Lipid Ord30 C/HDL 5.4 Ratio 05/05/2016 Comp Metabolic Rpv553 NA 135 mEq/L 05/05/2016 Comp Metabolic Kwp069 K 4.1 mEq/L 05/05/2016 Comp Metabolic Cgi304 CL 99 mEq/L 05/05/2016 Comp Metabolic Lah652 CO2 29.0 mEq/L 05/05/2016 Comp Metabolic Zcl688 ANION GAP 11 05/05/2016 Comp Metabolic Uez712 GLUCOSE 229 mg/dL 05/05/2016 Comp Metabolic Ngn855 Creat 0.5 mg/dL 05/05/2016 Comp Metabolic Rlp365 eGFR 150 ml/min/1.73m2 05/05/2016 Comp Metabolic Bmu176 BUN 14 mg/dL 05/05/2016 Comp Metabolic Xmm655 B/C Ratio 29.2 Ratio 05/05/2016 Comp Metabolic Tji952 CALCIUM 9.1 mg/dL 05/05/2016 Comp Metabolic Wab520 ALK PHOS 112 U/L 05/05/2016 Comp Metabolic Rpm642 AST(SGOT) 59 U/L 05/05/2016 Comp Metabolic Niv206 ALT(SGPT) 63 U/L 05/05/2016 Comp Metabolic Wmw614 BILI T 0.7 mg/dL 05/05/2016 Comp Metabolic Ivo896 ALBUMIN 3.8 g/dL 05/05/2016 Comp Metabolic Pds463 TPRO 6.5 g/dL 05/05/2016 Comp Metabolic Fff700 GLOB 2.7 g/dL 05/05/2016 Comp Metabolic Ljd351 A/G Ratio 1.4 Ratio 05/05/2016 Comp Metabolic Mjw863 Osmo 278 mOsmo 05/05/2016 Cbc With Differential [...] 30.2 pg 05/05/2016 Cbc With Differential Ord2 [place]% 4.4 % 05/05/2016 Cbc With Differential Ord2 [...] 3.59 K/ul 05/05/2016 Cbc With Differential Ord2 [place] ABS# 0.7 K/ul 05/05/2016 Cbc With Differential Ord2 Eos ABS# 0.1 K/ul 05/05/2016 Cbc With Differential Ord2 Baso ABS# 0.1 K/ul 05/05/2016 %Hba1C Gjj168 % HbA1c 42160- 6 10.4 % 05/05/2016 %Hba1C Ktg422 Gluc Ave 252 mg/dL 05/05/2016 Hcg Beta Subunit Qual Serum 819171 B-HCG QUALITATIVE NEGATIVE 12/27/2015 GC/CHL PRB 7386128 Chl trach DNA Negative 12/25/2015 GC/CHL PRB 0222997 GC PROBE Negative 12/25/2015 Comp. Metabolic Panel (14) 16261 GLUCOSE 136 mg/dL 12/17/2015 Comp. Metabolic Panel (14) 68341 BUN 9 mg/dL 12/17/2015 Comp. Metabolic Panel (14) 66871 CREATININE 0.67 mg/dL 12/17/2015 Comp. Metabolic Panel (14) 03591 SODIUM 136 mmol/L 12/17/2015 Comp. Metabolic Panel (14) 98238 POTASSIUM 4.4 mmol/L 12/17/2015 Comp. Metabolic Panel (14) 08739 CHLORIDE 95 mmol/L 12/17/2015 Comp. Metabolic Panel (14) 11803 CARBON DIOXIDE 28 mmol/L 12/17/2015 Comp. Metabolic Panel (14) 69618 CALCIUM 10.1 mg/dL 12/17/2015 Comp. Metabolic Panel (14) 85288 TOTAL PROTEIN 7.0 g/dL 12/17/2015 Comp. Metabolic Panel (14) 38029 ALBUMIN 4.5 g/dL 12/17/2015 Comp. Metabolic Panel (14) 11211 ALKALINE PHOSPHATASE 87 U/L 12/17/2015 Comp. Metabolic Panel (14) 82308 TOTAL BILIRUBIN 0.5 mg/dL 12/17/2015 Comp. Metabolic Panel (14) 77621 SGOT (AST) 38 U/L 12/17/2015 Comp. Metabolic Panel (14) 57771 SGPT (ALT) 41 U/L 12/17/2015 Comp. Metabolic Panel (14) 58893 eGFR (mL/min/1.73m2) >60 12/17/2015 Comp. Metabolic Panel (14) 46353 12/17/2015 Cbc With Differential/Platelet 00946 WBC 16.67 thou/uL 12/17/2015 Cbc With Differential/Platelet 47533 RBC 5.11 mil/uL 12/17/2015 Cbc With Differential/Platelet 87984 HEMOGLOBIN 14.8 g/dL 12/17/2015 Cbc With Differential/Platelet 44501 HEMATOCRIT 48.7 % 12/17/2015 Cbc With Differential/Platelet 87999 MCV 95.4 fL 12/17/2015 Cbc With Differential/Platelet 63508 MCH 29.0 pg 12/17/2015 Cbc With Differential/Platelet 60297 MCHC 30.4 g/dL 12/17/2015 Cbc With Differential/Platelet 26837 RDW-CV 14.6 % 12/17/2015 Cbc With Differential/Platelet 78919 PLATELET COUNT 471 thou/uL 12/17/2015 Cbc With Differential/Platelet 33411 NEUTROPHIL % 71.3 % 12/17/2015 Cbc With Differential/Platelet 40329 LYMPHOCYTE % 22.4 % 12/17/2015 Cbc With Differential/Platelet 20790 MONOCYTE % 4.8 % 12/17/2015 Cbc With Differential/Platelet 90902 EOS % 0.7 % 12/17/2015 Cbc With Differential/Platelet 40497 BASO % 0.7 % 12/17/2015 Cbc With Differential/Platelet 37324 NEUTROPHIL ABS # 11.89 thou/uL 12/17/2015 Cbc With Differential/Platelet 70314 LYMPH ABS # 3.73 thou/uL 12/17/2015 Cbc With Differential/Platelet 81706 MONOCYTE ABS # 0.80 thou/uL 12/17/2015 Cbc With Differential/Platelet 23708 EOS ABS # 0.12 thou/uL 12/17/2015 Cbc With Differential/Platelet 51738 BASO ABS # 0.12 thou/uL 12/17/2015 Comp. [...] Hgb A1C With Eag Estimation GLYCOHEMOGLOBIN A1C 75318-2 8.1 % 11/13/2015 Hgb A1C With Eag Estimation ESTIMATED AVG GLUCOSE 186 mg/dL 11/13/2015 Comp. Metabolic Panel (14) 59398 GLUCOSE 84 mg/dL 09/11/2015 Comp. Metabolic Panel (14) 27836 BUN 11 mg/dL 09/11/2015 Comp. Metabolic Panel (14) 64875 CREATININE 0.56 mg/dL 09/11/2015 Comp. Metabolic Panel (14) 73083 SODIUM 142 mmol/L 09/11/2015 Comp. Metabolic Panel (14) 79940 POTASSIUM 4.3 mmol/L 09/11/2015 Comp. Metabolic Panel (14) 06498 CHLORIDE 98 mmol/L 09/11/2015 Comp. Metabolic Panel (14) 72562 CARBON DIOXIDE 27 mmol/L 09/11/2015 Comp. Metabolic Panel (14) 77634 CALCIUM 10.1 mg/dL 09/11/2015 Comp. Metabolic Panel (14) 64489 TOTAL PROTEIN 7.2 g/dL 09/11/2015 Comp. Metabolic Panel (14) 41998 ALBUMIN 4.7 g/dL 09/11/2015 Comp. Metabolic Panel (14) 78188 ALKALINE PHOSPHATASE 109 U/L 09/11/2015 Comp. Metabolic Panel (14) 09085 TOTAL BILIRUBIN 0.3 mg/dL 09/11/2015 Comp. Metabolic Panel (14) 41533 SGOT (AST) 53 U/L 09/11/2015 Comp. Metabolic Panel (14) 77514 SGPT (ALT) 53 U/L 09/11/2015 Comp. Metabolic Panel (14) 89183 eGFR (mL/min/1.73m2) >60 09/11/2015 Comp. Metabolic Panel (14) 54240 09/11/2015 Comp. Metabolic Panel (14) 02117 GLUCOSE 183 mg/dL 08/11/2015 Comp. Metabolic Panel (14) 39950 BUN 10 mg/dL 08/11/2015 Comp. Metabolic Panel (14) 00145 CREATININE 0.46 mg/dL 08/11/2015 Comp. Metabolic Panel (14) 97513 SODIUM 138 mmol/L 08/11/2015 Comp. Metabolic Panel (14) 87423 POTASSIUM 4.0 mmol/L 08/11/2015 Comp. Metabolic Panel (14) 86254 CHLORIDE 98 mmol/L 08/11/2015 Comp. Metabolic Panel (14) 41575 CARBON DIOXIDE 29 mmol/L 08/11/2015 Comp. Metabolic Panel (14) 26086 CALCIUM 9.4 mg/dL 08/11/2015 Comp. Metabolic Panel (14) 45195 TOTAL PROTEIN 6.8 g/dL 08/11/2015 Comp. Metabolic Panel (14) 04323 ALBUMIN 4.4 g/dL 08/11/2015 Comp. Metabolic Panel (14) 00652 ALKALINE PHOSPHATASE 118 U/L 08/11/2015 Comp. Metabolic Panel (14) 06179 TOTAL BILIRUBIN <0.3 mg/dL 08/11/2015 Comp. Metabolic Panel (14) 42080 SGOT (AST) 41 U/L 08/11/2015 Comp. Metabolic Panel (14) 59594 SGPT (ALT) 55 U/L 08/11/2015 Comp. Metabolic Panel (14) 90764 eGFR (mL/min/1.73m2) >60 08/11/2015 Comp. Metabolic Panel (14) 96800 08/11/2015 Cbc With Differential/Platelet 30181 WBC 11.76 thou/uL 08/11/2015 Cbc With Differential/Platelet 50894 RBC 4.98 mil/uL 08/11/2015 Cbc With Differential/Platelet 85145 HEMOGLOBIN 14.2 g/dL 08/11/2015 Cbc With Differential/Platelet 57548 HEMATOCRIT 46.7 % 08/11/2015 Cbc With Differential/Platelet 57515 MCV 93.8 fL 08/11/2015 Cbc With Differential/Platelet 15934 MCH 28.5 pg 08/11/2015 Cbc With Differential/Platelet 74780 MCHC 30.4 g/dL 08/11/2015 Cbc With Differential/Platelet 34151 RDW-CV 14.3 % 08/11/2015 Cbc With Differential/Platelet 24211 PLATELET COUNT 382 thou/uL 08/11/2015 Cbc With Differential/Platelet 19634 NEUTROPHIL % 67.3 % 08/11/2015 Cbc With Differential/Platelet 66974 LYMPHOCYTE % 24.0 % 08/11/2015 Cbc With Differential/Platelet 14211 MONOCYTE % 6.0 % 08/11/2015 Cbc With Differential/Platelet 27144 EOS % 1.6 % 08/11/2015 Cbc With Differential/Platelet 18977 BASO % 1.0 % 08/11/2015 Cbc With Differential/Platelet 53574 NEUTROPHIL ABS # 7.91 thou/uL 08/11/2015 Cbc With Differential/Platelet 23300 LYMPH ABS # 2.82 thou/uL 08/11/2015 Cbc With Differential/Platelet 00038 MONOCYTE ABS # 0.71 thou/uL 08/11/2015 Cbc With Differential/Platelet 82923 EOS ABS # 0.19 thou/uL 08/11/2015 Cbc With Differential/Platelet 22139 BASO ABS # 0.12 thou/uL 08/11/2015 Tsh 392352 TSH 3.220 uIU/mL 08/11/2015 Lipid Panel 39978 CHOLESTEROL 193 mg/dL 08/11/2015 Lipid Panel 67573 TRIGLYCERIDES 192 mg/dL 08/11/2015 Lipid Panel 14510 HDL 38 mg/dL 08/11/2015 Lipid Panel 17294 CHOLESTEROL/HDL 5.08 08/11/2015 Lipid Panel 65423 LDL (CALCULATED) 117 mg/dL 08/11/2015 Lipid Panel 39658 LDL/HDL 3.08 08/11/2015 Lipid Panel 54521 PHENOTYPE TYPE IV BORDERLINE 08/11/2015 Review of [...] Procedure Codes Date THER/PROPH/DIAG INJ SC/IM CPT-4: 58416 06/05/2018 ROCEPHIN, PER 250 MG CPT- 4: J0696 06/05/2018 REMOVAL OF SKIN TAGS <W/15 CPT-4: 00688 03/14/2018 FLU VAC NO PRSV 4 PRECIOUS 3 YRS+ CPT-4: 89183 03/14/2018 IMMUNIZATION ADMIN CPT- 4: 17367 03/14/2018 TRIAMCINOLONE ACET INJ NOS CPT-4: J3301 02/19/2018 THER/PROPH/DIAG INJ SC/IM CPT-4: 69064 02/19/2018 THER/PROPH/DIAG INJ SC/IM CPT-4: 71068 09/05/2017 TRIAMCINOLONE ACET INJ NOS CPT-4: J3301 09/05/2017 IMMUNIZATION ADMIN CPT- 4: 37667 04/24/2017 FLU VAC NO PRSV 4 PRECIOUS 3 YRS+ CPT-4: 38487 04/24/2017 DRAIN/INJECT JOINT/BURSA CPT-4: 91541 04/24/2017 TRIAMCINOLONE ACET INJ NOS CPT-4: J3301 04/24/2017 THER/PROPH/DIAG INJ SC/IM CPT-4: 42131 01/09/2017 TRIAMCINOLONE ACET INJ NOS CPT-4: J3301 01/09/2017 THER/PROPH/DIAG INJ SC/IM CPT-4: 49522 04/13/2016 Pneumococcal Polysaccharide Vaccine, 23-Valent, Ad CPT-4: 49753 04/13/2016 INJECT TRIGGER POINTS 3/> CPT-4: 78641 04/06/2016 TRIAMCINOLONE ACET INJ NOS CPT-4: J3301 04/06/2016 IMMUNIZATION ADMIN CPT- 4: 93211 03/30/2016 IIV4 FLU VACC NO PRESERV ID SNOMED CT: 22107179 CPT-4: 07461 03/30/2016 TRIAMCINOLONE ACET INJ NOS CPT-4: J3301 02/28/2016 THER/PROPH/DIAG INJ SC/IM CPT-4: 67440 02/28/2016 TRIAMCINOLONE ACET INJ NOS CPT-4: J3301 [...] 1: 127 Code: 8480-6 BMI: 42.4 Code: 55614-4 Heart Rate 1: 78 bpm Height: 4'11" SpO2: 97% Weight: 210 lbs 03/26/2018 Blood Pressure 1: 128 Code: 8480-6 BMI: 43.0 Code: 48785-8 Heart Rate 1: 120 bpm Height: 4'11" SpO2: 97% Weight: 213 lbs 03/14/2018 Blood Pressure 1: 120 Code: 8480-6 BMI: 43.0 Code: 22891-5 Heart Rate 1: 114 bpm Height: 4'11" SpO2: 95% Weight: 213 lbs 03/07/2018 Blood Pressure 1: 13274 Code: 8480-6 BMI: 43.8 Code: 44471-3 Heart Rate 1: 123 bpm Height: 4'11" [...] 1: 134/86 Code: 8480-6 BMI: 45.4 Code: 17459-9 Heart Rate 1: 108 bpm Height: 4'11" SpO2: 95% Weight: 225 lbs 06/07/2017 Blood Pressure 1: 132/74 Code: 8480-6 Heart Rate 1: 99 bpm Height: 4'11" SpO2: 95% 04/24/2017 Blood Pressure 1: 132/8096 Code: 8480-6 BMI: 47.7 Code: 16067-3 Heart Rate 1: 96 bpm Height: 4'11" Weight: 236 lbs 01/09/2017 Blood Pressure 1: 122/74 Code: 8480-6 BMI: 46.0 Code: 23786-5 Heart Rate 1: 114 bpm Height: 4'11" SpO2: 98% Temperature: 37.1 (C) / 98.7 (F) Weight: 228 lbs 10/30/2016 Blood Pressure 1: 124 Code: 8480-6 BMI: 49.1 Code: 20578-3 Heart Rate 1: 90 bpm Height: 4'11" SpO2: 97% Weight: 243 lbs 10/09/2016 Blood Pressure 1: 124 Code: 8480-6 BMI: 49.3 Code: 23486-7 Heart Rate 1: 91 bpm Height: 4'11" SpO2: 98% Weight: 244 lbs 09/12/2016 Blood Pressure 1: 12880 Code: 8480-6 BMI: 49.1 Code: 03992-3 Heart Rate 1: 94 bpm Height: 4'11" SpO2: 95% Weight: 243 lbs 09/05/2016 Blood Pressure 1: 118 Code: 8480-6 BMI: 49.1 Code: 52886-0 Heart Rate 1: 100 bpm Height: 4'11" SpO2: 97% Weight: 243 lbs 06/16/2016 Blood Pressure 1: 120/62 Code: 8480-6 BMI: 49.1 Code: 15355-7 Heart Rate 1: 100 bpm Height: 4'11" SpO2: 96% Temperature: 36.7 (C) / 98.0 (F) Weight: 243 lbs 06/13/2016 Blood Pressure 1: 120/70 Code: 8480-6 Heart Rate 1: 117 bpm SpO2: 97% 05/19/2016 Blood Pressure 1: 130/64 Code: 8480-6 BMI: 49.1 Code: 51314-2 Heart Rate 1: 101 bpm Height: 4'11" SpO2: 96% Weight: 243 lbs 05/08/2016 Blood Pressure 1: 12876 Code: 8480-6 Heart Rate 1: 119 bpm Height: SpO2: 97% Weight: 05/05/2016 Blood Pressure 1: 124 Code: 8480-6 BMI: 49.1 Code: 88541-9 Heart Rate 1: 75 bpm Height: 4'11" SpO2: 99% Weight: 243 lbs 04/10/2016 Blood Pressure 1: 140/80 Code: 8480-6 BMI: 49.7 Code: 98917-6 Heart Rate 1: 88 bpm Height: 4'11" SpO2: 95% Weight: 246 lbs 04/06/2016 Blood Pressure 1: 134/82 Code: 8480-6 BMI: 75.1 Code: 03298-9 Heart Rate 1: 72 bpm Height: 4' SpO2: 96% Weight: 246 lbs 03/08/2016 Blood Pressure 1: 12672 Code: 8480-6 BMI: 49.7 Code: 45048-3 Heart Rate 1: 89 bpm Height: 4'11" SpO2: 97% Weight: 246 lbs 02/28/2016 Blood Pressure 1: 12468 Code: 8480-6 BMI: 49.7 Code: 99625-7 Heart Rate 1: 89 bpm Height: 4'11" SpO2: 96% Weight: 246 lbs 01/18/2016 Blood Pressure 1: 142/78 Code: 8480-6 BMI: 48.9 Code: 36307-6 Heart Rate 1: 97 bpm Height: 4'11" SpO2: 97% Weight: 242 lbs 12/23/2015 Blood Pressure 1: 124/74 Code: 8480-6 BMI: 48.9 Code: 14546-8 Heart Rate 1: 106 bpm Height: 4'11" SpO2: 96% Weight: 242 lbs 12/16/2015 Blood Pressure 1: 116/82 Code: 8480-6 BMI: 48.3 Code: 44015-0 Heart Rate 1: 111 bpm Height: 4'11" SpO2: 97% Weight: 239 lbs 11/11/2015 Blood Pressure 1: 130/80 Code: 8480-6 BMI: 49.7 Code: 88138-0 Heart Rate 1: 105 bpm Height: 4'11" SpO2: 96% Weight: 246 lbs 10/27/2015 Blood Pressure 1: 122/70 Code: 8480-6 BMI: 49.5 Code: 97651-5 Heart Rate 1: 107 bpm Height: 4'11" SpO2: 96% Weight: 245 lbs 10/13/2015 Blood Pressure 1: 140/82 Code: 8480-6 BMI: 50.9 Code: 80721-0 Heart Rate 1: 111 bpm Height: 4'11" SpO2: 96% Weight: 252 lbs 10/05/2015 Blood Pressure 1: 118/70 Code: 8480-6 BMI: 51.1 Code: 20110-0 Heart Rate 1: 120 bpm Height: 4'11" SpO2: 97% Weight: 253 lbs 09/01/2015 Blood Pressure 1: 132/82 Code: 8480-6 BMI: 50.1 Code: 01581-4 Heart Rate 1: 110 bpm Height: 4'11" SpO2: 96% Weight: 248 lbs 08/20/2015 Blood Pressure 1: 132/78 Code: 8480-6 BMI: 51.7 Code: 64070-6 Heart Rate 1: 100 bpm Height: 4'11" Weight: 256 lbs 08/03/2015 Blood Pressure 1: 148/92 Code: 8480-6 BMI: 52.1 Code: 43142-8 Heart Rate 1: 100 bpm Height: 4'11" [...] Hidradenitis suppurativa[ICD10: L73.2] Gloria Hess MD, [facility] CPT- 4: 73100 07/22/2018 [id number] EST. PATIENT, LEVEL III Diagnosis: Hidradenitis suppurativa[ICD10: L73.2] Diagnosis: Encounter for other specified surgical aftercare[ICD10: Z48.89] Gloria Hess MD, [facility] CPT-4: 16377 07/18/2018 23485 EST. PATIENT, LEVEL III Diagnosis: Cellulitis of right axilla[ICD10: L03.111] Diagnosis: Diarrhea, unspecified[ICD10: R19.7] Gloria Hess MD, [facility] CPT- 4: 04024 06/28/2018 ([id number]) [id number] EST. PATIENT, LEVEL II Diagnosis: Cellulitis of right axilla[ICD10: L03.111] Tamy Hess MD, [facility] CPT-4: 35345 06/17/2018 [id number] EST. PATIENT, LEVEL III Diagnosis: Cellulitis of right axilla[ICD10: L03.111] Diagnosis: Type 2 diabetes mellitus with hyperglycemia[ICD10: E11.65] Gloria Hess MD, [facility] CPT-4: 34509 06/05/2018 93830 EST. PATIENT, LEVEL III Diagnosis: Gastro-esophageal reflux disease without esophagitis[ICD10: K21.9] Diagnosis: Other allergic rhinitis[ICD10: J30.89] Diagnosis: Cough[ICD10: R05] Gloria Hess MD, [facility] CPT-4: 31727 03/26/2018 ([id number]) [id number] EST. PATIENT, LEVEL III Diagnosis: Cough[ICD10: R05] Gloria Hess MD, [facility] CPT-4: 67338 03/14/2018 [id number] EST. PATIENT, LEVEL IV Diagnosis: Acute laryngopharyngitis[ICD10: J06.0] Diagnosis: Other allergic rhinitis[ICD10: J30.89] Diagnosis: Cough[ICD10: R05] Gloria Hess MD, [facility] CPT-4: 63335 03/07/2018 26038 EST. PATIENT, LEVEL IV Diagnosis: Acute bronchitis due to other specified organisms[ICD10: J20.8] Diagnosis: Acute laryngopharyngitis[ICD10: J06.0] Gloria Hess MD, [facility] CPT- 4: 99147 02/19/2018 [id number] EST. PATIENT, LEVEL IV Diagnosis: Candidiasis of vulva and vagina[ICD10: B37.3] Diagnosis: Rash and other nonspecific skin eruption[ICD10: R21] Gloria Hess MD, [facility] CPT-4: 86175 01/08/2018 [id number] EST. PATIENT, LEVEL III Diagnosis: Sacrococcygeal disorders, not elsewhere classified[ICD10: M53.3] Diagnosis: Low back pain[ICD10: M54.5] Gloria Hess MD, [facility] CPT-4: 48294 11/23/2017 [id number] EST. PATIENT, LEVEL III Diagnosis: Acute laryngopharyngitis[ICD10: J06.0] Diagnosis: Other allergic rhinitis[ICD10: J30.89] Diagnosis: Acute bronchitis due to other specified organisms[ICD10: J20.8] Gloria Hess MD, [facility] CPT-4: 06829 09/05/2017 [id number] EST. PATIENT, LEVEL III Diagnosis: Pain in left foot[ICD10: M79.672] Diagnosis: Rash and other nonspecific skin eruption[ICD10: R21] Diagnosis: Candidiasis of vulva and vagina[ICD10: B37.3] Diagnosis: Localized edema[ICD10: R60.0] Diagnosis: Dyspnea, unspecified[ICD10: R06.00] Gloria Hess MD, [facility] CPT- 4: 13244 06/07/2017 [id number] EST. PATIENT, LEVEL III Diagnosis: Low back pain[ICD10: M54.5] Diagnosis: Sacroiliitis, not elsewhere classified[ICD10: M46.1] Diagnosis: Pain in left foot[ICD10: M79.672] Diagnosis: VACCIN FOR INFLUENZA[ICD10: Z23] Gloria Hess MD, [facility] CPT-4: 90396 04/24/2017 58900 EST. PATIENT, LEVEL III Diagnosis: Acute suppurative otitis media without spontaneous rupture of ear drum, right ear[ICD10: H66.001] Diagnosis: Other allergic rhinitis[ICD10: J30.89] Gloria Hess MD, [facility] CPT- 4: 54056 01/09/2017 92612 EST. PATIENT, LEVEL IV Diagnosis: Candidiasis of vulva and vagina[ICD10: B37.3] Diagnosis: Type 2 diabetes mellitus with hyperglycemia[ICD10: E11.65] Gloria Hess MD, [facility] CPT-4: 27914 10/30/2016 [id number] EST. PATIENT, LEVEL III Diagnosis: Candidiasis of vulva and vagina[ICD10: B37.3] Diagnosis: Type 2 diabetes mellitus with hyperglycemia[ICD10: E11.65] Gloria Hess MD, [facility] CPT-4: 25837 10/09/2016 79572 EST. PATIENT, LEVEL IV Diagnosis: Umbilical hernia without obstruction or gangrene[ICD10: K42.9] Gloria Hess MD, [facility] CPT-4: 38154 09/12/2016 87031 EST. PATIENT, LEVEL III Diagnosis: Epigastric pain[ICD10: R10.13] Diagnosis: Candidiasis of vulva and vagina[ICD10: B37.3] Diagnosis: Type 2 diabetes mellitus with hyperglycemia[ICD10: E11.65] Gloria Hess MD, [facility] CPT-4: 41864 09/05/2016 20078 EST. PATIENT, LEVEL III Diagnosis: Acute laryngopharyngitis[ICD10: J06.0] Diagnosis: Other allergic rhinitis[ICD10: J30.89] Gloria Hess MD, [facility] CPT- 4: 05563 06/16/2016 61012 EST. PATIENT, LEVEL III Diagnosis: Type 2 diabetes mellitus with hyperglycemia[ICD10: E11.65] Diagnosis: Other obesity due to excess calories[ICD10: E66.09] Gloria Hess MD, [facility] CPT-4: 67160 06/13/2016 48321 EST. PATIENT, LEVEL III Diagnosis: Type 2 diabetes mellitus with hyperglycemia[ICD10: E11.65] Diagnosis: Other obesity due to excess calories[ICD10: E66.09] Gloria Hess MD, [facility] CPT-4: 01648 05/19/2016 33821 EST. PATIENT, LEVEL III Diagnosis: Type 2 diabetes mellitus with hyperglycemia[ICD10: E11.65] Diagnosis: Other obesity due to excess calories[ICD10: E66.09] Gloria Hess MD, [facility] CPT-4: 92413 05/08/2016 06227 EST. PATIENT, LEVEL III Diagnosis: Type 2 diabetes mellitus without complications[ICD10: E11.9] Gloria Hess MD, [facility] CPT-4: 47254 05/05/2016 48324 EST. PATIENT, LEVEL III Diagnosis: Pain in right shoulder[ICD10: M25.511] Gloria Hess MD, [facility] CPT- 4: 01354 04/10/2016 27567 EST. PATIENT, LEVEL III Diagnosis: Pain in right shoulder[ICD10: M25.511] Diagnosis: Other muscle spasm[ICD10: M62.838] Diagnosis: Type 2 diabetes mellitus without complications[ICD10: E11.9] Gloria Hess MD, [facility] CPT-4: 00015 04/06/2016 64491 EST. PATIENT, LEVEL IV Diagnosis: Acute bronchitis due to other specified organisms[ICD10: J20.8] Diagnosis: Other acute sinusitis[ICD10: J01.80] Diagnosis: Acne vulgaris[ICD10: L70.0] Diagnosis: Morbid (severe) obesity due to excess calories[ICD10: E66.01] Gloria Hess MD, [facility] CPT-4: 45304 03/08/2016 66680 EST. PATIENT, LEVEL IV Diagnosis: Other acute sinusitis[ICD10: J01.80] Diagnosis: Localized enlarged lymph nodes[ICD10: R59.0] Gloria Hess MD, [facility] CPT-4: 62209 02/28/2016 10484 EST. PATIENT, LEVEL III Diagnosis: Type 2 diabetes mellitus without complications[ICD10: E11.9] Gloria Hess MD, [facility] CPT-4: 81318 01/18/2016 ([id number]) PREV VISIT EST AGE 40-64 Diagnosis: Encounter for gynecological examination (general) (routine) without abnormal findings[ICD10: Z01.419] Diagnosis: Excessive and frequent menstruation with irregular cycle[ICD10: N92.1] Gloria Hess MD, [facility] CPT-4: 52619 12/23/2015 38582 EST. PATIENT, LEVEL III Diagnosis: Type 2 diabetes mellitus without complications[ICD10: E11.9] Gloria Hess MD, [facility] CPT-4: 54552 12/16/2015 25998 EST. PATIENT, LEVEL III Diagnosis: Type 2 diabetes mellitus without complications[ICD10: E11.9] Diagnosis: Other obesity due to excess calories[ICD10: E66.09] Gloria Hess MD, [facility] CPT-4: 08713 11/11/2015 19913 EST. PATIENT, LEVEL III Diagnosis: Type 2 diabetes mellitus without complications[ICD10: E11.9] Diagnosis: Other obesity due to excess calories[ICD10: E66.09] Gloria Hess MD, [facility] CPT-4: 80538 10/27/2015 49824 EST. PATIENT, LEVEL III Diagnosis: Type 2 diabetes mellitus without complications[ICD10: E11.9] Diagnosis: Other obesity due to excess calories[ICD10: E66.09] Diagnosis: Other insomnia[ICD10: G47.09] Gloria Hess MD, [facility] CPT-4: 73822 10/13/2015 25202 EST. PATIENT, LEVEL IV Diagnosis: Acute recurrent maxillary sinusitis[ICD10: J01.01] Diagnosis: Allergic rhinitis due to pollen[ICD10: J30.1] Diagnosis: Other obesity due to excess calories[ICD10: E66.09] Gloria Hess MD, [facility] CPT-4: 43210 10/05/2015 81719 EST. PATIENT, LEVEL IV Diagnosis: Polycystic ovarian syndrome[ICD10: E28.2] Diagnosis: Other skin changes[ICD10: R23.8] Diagnosis: Other abnormal glucose[ICD10: R73.09] [facility] CPT- 4: 30367 09/01/2015 64590 EST. PATIENT, LEVEL IV Diagnosis: Acute recurrent maxillary sinusitis[ICD10: J01.01] Diagnosis: Morbid (severe) obesity due to excess calories[ICD10: E66.01] Diagnosis: Essential (primary) hypertension[ICD10: I10] Diagnosis: Allergic rhinitis due to pollen[ICD10: J30.1] [facility] CPT-4: 01299 08/20/2015 (01589) OFFICE VISIT, NEW - LEVEL 4 Diagnosis: Essential (primary) hypertension[ICD10: I10] Diagnosis: Obstructive sleep apnea (adult) (pediatric)[ICD10: G47.33] Diagnosis: Other insomnia[ICD10: G47.09] Diagnosis: Snoring[ICD10: R06.83] Diagnosis: Morbid (severe) obesity due to excess calories[ICD10: E66.01] [facility] CPT-4: 53585 08/03/2015 Plan of Care Planned Activity Notes Codes Status Date Visit Plan: incision - healing well - Wound Instructions - Pt was instructed to keep the wound clean, wash with antibacterial soap, use triple antibiotic ointment, call if redness, pustular drainage, or any other a cute concerns. Hidradenitis suppurativa - will refer to dermatology. 07/22/2018 Appointment: Gloria Scott WPtel: [facility] (30 min) Complex 07/22/2018 Patient Education: Patient Medication Summary Completed 07/22/2018 Visit Plan: Hidradenitis suppurativa - post incision - wound healing well - continue to monitor Wound Instructions - Pt was instructed to keep the wound clean, wash with antibacterial soap, use triple antibiotic oi ntment, call if redness, pustular drainage, or any other acute concerns. 07/18/2018 Appointment: Gloria Scott WPtel: [address] [place], [place] [phone] (30 min) Complex 07/18/2018 Patient Education: Patient Medication Summary Completed 07/18/2018 Referral: Roni Roberts pt will be notified by there office to schedule Initiated 07/03/2018 Care Plan: Referral Order SNOMED-CT : [id number] Pending 07/01/2018 Visit Plan: Abscess/Cellulitis - The [...] stomach pain. 06/28/2018 Appointment: Gloria Scott WPtel: [facility] (30 min) Complex 06/28/2018 Patient Education: Patient Medication Summary Completed 06/28/2018 Visit Plan: Cellulitis-right lkhnmi-wmqahoio-hfv bactroban ointment until healed completely-call with any concerns 06/17/2018 Appointment: Tamy Lugo WPtel: [phone] (15 min) Moderate 06/17/2018 Patient Education: [...] warmth, discharge. 06/05/2018 Appointment: Gloria Scott WPtel: [facility] (30 min) Complex 06/05/2018 Patient Education: Patient Medication Summary Completed 06/05/2018 Patient Education: Diabetes Completed 06/05/2018 Referral: [facility] Referral Initiated 04/19/2018 Care Plan: Referral Order SNOMED-CT : [id number] Pending 03/27/2018 Visit Plan: Esophageal Reflux - [...] allergy spray. 03/26/2018 Appointment: Gloria Scott WPtel: [facility] (15 min) Moderate 03/26/2018 Patient Education: Patient Medication Summary Completed 03/26/2018 Appointment: [phone] (15 min) Moderate 03/25/2018 Visit Plan: Skin [...] and bandaids. 03/14/2018 Appointment: Gloria Scott WPtel: [address] [place] [address] (15 min) Moderate 03/14/2018 Patient Education: Patient [...] not improve 03/07/2018 Appointment: Gloria Scott WPtel: [facility] [address] (15 min) Moderate 03/07/2018 Patient Education: [...] acutely worsen. 02/19/2018 Appointment: Gloria Scott WPtel: [facility]9 [facility] (15 min) Moderate 02/19/2018 Patient Education: Patient [...] warmth, discharge. 01/08/2018 Appointment: Gloria Scott WPtel: [facility] (30 min) Complex 01/08/2018 Patient Education: [...] acutely worsen. 09/05/2017 Appointment: Gloria Scott WPtel: [facility] (15 min) Moderate 09/05/2017 Patient Education: Patient [...] send RX 06/07/2017 Appointment: Gloria Scott WPtel: [facility]5 [facility] [place] (15 min) Moderate 06/07/2017 Patient [...] injection. 04/24/2017 Appointment: [phone] [place] [place] (30 min) Complex 04/24/2017 Patient Education: Patient Medication Summary Completed 04/24/2017 Appointment: Gloria Scott WPtel: [phone] [facility] [place] (30 min) Complex 03/09/2017 Appointment: Gloria Scott WPtel: [address] [place], [place] [phone] [place] (30 min) Complex 02/13/2017 Visit Plan: [...] allergy spray. 01/09/2017 Appointment: Gloria Scott WPtel: [facility] [place] [place] (10 min) Simple 01/09/2017 Patient Education: Patient Medication Summary Completed 01/09/2017 Patient Education: Obesity Completed 01/09/2017 Visit Plan: Vaginal candidiasis - will send RX - pt is to notify clinic if symptoms do not improve, if they worsen, or with any questions or concerns. Diabetes Mellitus - Uncontrolled - Will refer to lathmaker - I have recommended for the patient [...] Mellitus - Uncontrolled - Will refer to lathmaker - I have recommended for the patient [...] glucose control. 10/09/2016 Appointment: [phone] [place] ([place] min) Complex 10/09/2016 Patient Education: Patient Medication Summary Completed 10/09/2016 Patient Education: Obesity Completed 10/09/2016 Referral: Roni Roberts Referral Completed 09/18/2016 Care Plan: CT ABD & PELV W/CONTRAST LOINC : 78509-3 Pending 09/13/2016 Care Plan: Referral Order SNOMED-CT : [id number] Pending 09/13/2016 Visit Plan: Ongoing abdominal pain/hernia - will send RX - will refer - pt is to notify clinic if symptoms do not improve, if they worsen, or with any questions or concerns. 09/12/2016 Appointment: Gloria Scott WPtel: [phone] [facility] (30 min) Complex 09/12/2016 Patient Education: Patient Medication Summary Completed 09/12/2016 Patient Education: Obesity Completed 09/12/2016 Care Plan: Referral Order SNOMED-CT : 434999364 Pending 09/12/2016 Visit Plan: Ongoing abdominal/epigastric pain [...] control. 09/05/2016 Appointment: Gloria Scott WPtel: [phone] [facility] (30 min) Complex 09/05/2016 Patient Education: [...] spray. 06/16/2016 Appointment: [phone] [place] (10 min) Simple 06/16/2016 Patient Education: Patient [...] check. 06/13/2016 Appointment: Gloria Scott WPtel: [phone] [facility] (30 min) Complex 06/13/2016 Patient Education: Patient Medication Summary Completed 06/13/2016 Patient Education: Obesity Completed 06/13/2016 Appointment: Gloria Scott WPtel: [phone] [facility] (30 min) Complex 06/08/2016 Visit Plan: [...] check. 05/19/2016 Appointment: Tamy Lugo WPtel: [phone] [phone] [place] (30 min) Complex 05/19/2016 Patient [...] check. 05/08/2016 Appointment: Gloria Scott WPtel: [phone] [facility] (15 min) Moderate 05/08/2016 Patient Education: [...] the morning. 05/05/2016 Appointment: Tamy Lugo WPtel: [facility]5 [phone] (15 min) Moderate 05/05/2016 Patient Education: Patient Medication Summary Completed 05/05/2016 Patient Education: Obesity Completed 05/05/2016 Care Plan: Comp Metabolic Pending 05/05/2016 Appointment: Jocelyn Hess WPtel: [facility]5 [facility] Surgical Procedure 04/17/2016 Appointment: Injection 04/13/2016 Patient Education: Patient Medication Summary Completed 04/13/2016 Visit Plan: Right shoulder pain - will refer to PT - The pt is to use prn antiinflammatories to manage acute pain. The patient is to call the office if the pain is worsening or does not improve. 04/10/2016 Appointment: Gloria Scott WPtel: [facility]5 [facility] (30 min) Complex 04/10/2016 Patient Education: [...] control. 04/06/2016 Appointment: [facility]Ptel: [phone] [place] (15 min) Moderate 04/06/2016 Patient Education: Patient [...] [place] 02/28/2016 Appointment: Gloria Scott [facility]Ptel: [phone] [place] (30 min) Complex 02/28/2016 Patient Education: Patient Medication Summary Completed 02/28/2016 Patient Education: Obesity Completed 02/28/2016 Appointment: Gloria Scott [facility]Ptel: [phone] [place] (15 min) Moderate 01/31/2016 Visit Plan: Diabetes [...] Appointment: Gloria Scott [facility]Ptel[phone] [place] [facility] 12/23/2015 Patient Education: Patient Medication [...] ADD TO BLOOD IN THE LAB. [facility] : 85656-6 Pending 08/13/2015 Visit Plan: Hypertension - uncontrolled [...] Referral: Roni Roberts [facility] Ref[facility] Initiated Referral: Roni Roberts Referral Initiated Referral: Roni Roberts Referral Initiated Instructions Comment . Vaginal candidiasis - will send RX - pt is to notify clinic if symptoms do not improve, if they worsen, or with any questions or concerns. Diabetes Mellitus - Uncontrolled - Will refer to lathmaker - I have recommended for the patient [...] Mellitus - Uncontrolled - Will refer to lathmaker - I have recommended for the patient [...] drainage, or any other acute concerns. . URI - Pt advised to [...] with any questions or concerns. . Cellulitis-right zwetbq-qushaxso-saa bactroban ointment until healed completely-call with any [...]
--- OUTSIDE RECORDS SUMMARY | 2018-12-17 03:44 | XMS REPORT | CCD ---
Author Author Gloria Scott MD, [facility] Address [address] [place] [address] Phone Care Team Providers Care Training And Development Coordinator Name Role Phone PP Unavailable CCM Unavailable Summary Purpose Interface Exchange Insurance Providers Payer name Policy type / Coverage type Covered constitution party ID Effective Begin Date Effective End Date [facility] Commercial Insurance [id number] Unknown Unknown Family history Father Diagnosis Age At Onset Hypertension Unknown Arthritis Unknown Mother Diagnosis Age At Onset Arthritis Unknown Hyperlipidemia Unknown Daughter Diagnosis Age At Onset Asthma Unknown Social History Social History Element Codes Description Effective Dates Marital status Unknown Darin 08/03/2015 Number of children Unknown 1 08/03/[address]: 4702631 Quit less than 5 years ago 08/03/2015 [...] Fill Instructions Lyrica 100 mg capsule RxNorm: 318479 1 Capsule(s) PO TID 07/25/2018 10/16/2018 Active Lyrica 100 mg capsule RxNorm: 982807 1 Capsule(s) PO TID 07/25/2018 07/24/2018 Inactive mupirocin 2 % topical ointment RxNorm: 464302 1 Application TOP daily 07/22/2018 07/28/2018 Active ibuprofen 800 mg tablet RxNorm: 261497 1 Tablet(s) PO TID as needed for pain 07/22/2018 07/31/2018 Active hydrocodone 7.5 mg-acetaminophen 325 mg tablet RxNorm: 008388 1 Tablet(s) PO Q4H as needed 07/18/2018 08/16/2018 Active promethazine 25 mg tablet RxNorm: 444465 TABLET(S) TAKE ONE TABLET BY MOUTH EVERY 6 TO 8 HOURS NEEDED 07/05/2018 No Stop Date Active hyoscyamine 0.125 mg sublingual tablet RxNorm: 6169016 1 Tablet(s) SL TID as needed diarrhea 06/28/2018 07/07/2018 Inactive mupirocin 2 % topical ointment RxNorm: 871873 1 Application TOP BID 06/17/2018 06/26/2018 Inactive mupirocin 2 % topical ointment RxNorm: 297282 1 Application TOP BID 06/05/2018 No Stop Date Active Keflex 500 mg capsule RxNorm: 463997 1 Capsule(s) PO TID 06/05/2018 06/11/2018 Inactive ceftriaxone 500 mg solution for injection RxNorm: 5443994 Inj 06/05/2018 06/05/2018 Inactive Diflucan 150 mg tablet RxNorm: 649699 1 Tablet(s) PO daily 06/05/2018 07/02/2018 Inactive Protonix 40 mg tablet,delayed release RxNorm: 538543 1 Tablet(s) PO BID x 1 week then daily 03/26/2018 No Stop Date Active Phenergan with Codeine Syrup RxNorm: 5-10 ML PO QID as needed cough 03/19/2018 No Stop Date Active promethazine 25 mg tablet RxNorm: 756135 Tablet(s) TAKE ONE TABLET BY MOUTH EVERY 6 TO 8 HOURS NEEDED 03/15/2018 07/04/2018 Inactive Singulair 10 mg tablet RxNorm: 022732 1 Tablet(s) PO daily 03/14/2018 04/12/2018 Inactive metoprolol succinate ER 100 mg tablet,extended release 24 hr RxNorm: 592407 1 Tablet(s) PO daily 03/07/2018 04/05/2018 Inactive Zithromax Z-Rashid 250 mg tablet RxNorm: 080059 1 Tablet(s) PO UD 03/07/2018 03/07/2018 Inactive prednisone 20 mg tablet RxNorm: 192962 2 Tablet(s) PO daily 03/07/2018 03/11/2018 Inactive albuterol sulfate 2.5 mg/3 mL (0.083 %) solution for nebulization RxNorm: 813068 3 Milliliter(s) INH Q4-6H as needed dyspnea 02/19/2018 No Stop Date Active Diflucan 150 mg tablet RxNorm: 643201 Tablet(s) TAKE ONE TABLET BY MOUTH ONCE DAILY FOR 7 DAYS THEN TAKE ONE TABLET BY MOUTH ONCE A WEEK 02/19/2018 06/04/2018 Inactive Levaquin 500 mg tablet RxNorm: 033607 1 Tablet(s) PO daily 02/19/2018 02/25/2018 Inactive prednisone 20 mg tablet RxNorm: 397384 2 Tablet(s) PO daily 02/19/2018 02/23/2018 Inactive Kenalog 40 mg/mL suspension for injection RxNorm: 7899870 15. Milliliter(s) Inj 02/19/2018 02/19/2018 Inactive hydrocodone 7.5 mg-acetaminophen 325 mg tablet RxNorm: 225701 1 Tablet(s) PO Q4H as needed 02/05/2018 03/06/2018 Inactive clindamycin HCl 300 mg capsule RxNorm: 298073 1 Capsule(s) PO TID 01/09/2018 01/15/2018 Inactive promethazine 25 mg tablet RxNorm: 798094 Tablet(s) TAKE ONE TABLET BY MOUTH EVERY 6 TO 8 HOURS NEEDED 01/08/2018 03/14/2018 Inactive Diflucan 150 mg tablet RxNorm: 994808 Tablet(s) TAKE ONE TABLET BY MOUTH ONCE DAILY FOR 7 DAYS THEN TAKE ONE TABLET BY MOUTH ONCE A WEEK 01/08/2018 02/18/2018 Inactive Bactrim DS 800 mg-160 mg tablet RxNorm: 465785 1 Tablet(s) PO BID 01/08/2018 01/17/2018 Inactive prednisone 20 mg tablet RxNorm: 507373 2 Tablet(s) PO daily 11/23/2017 11/27/2017 Inactive Zithromax Z-Rashid 250 mg tablet RxNorm: 208985 1 Tablet(s) PO UD 09/05/2017 02/11/2018 Inactive Kenalog 40 mg/mL suspension for injection RxNorm: 3083721 Milliliter(s) Inj 09/05/2017 09/05/2017 Inactive prednisone 20 mg tablet RxNorm: 021130 2 Tablet(s) PO daily 09/05/2017 09/09/2017 Inactive ibuprofen 800 mg tablet RxNorm: 554024 1 Tablet(s) PO TID 07/27/2017 02/21/2018 Inactive metoprolol succinate ER 100 mg tablet,extended release 24 hr RxNorm: 936233 TAKE ONE TABLET BY MOUTH ONCE DAILY 06/20/2017 No Stop Date Active alprazolam 0.5 mg tablet RxNorm: 289805 1 Tablet(s) PO Q8 as needed 06/20/2017 07/09/2017 Inactive Zithromax Z-Rashid 250 mg tablet RxNorm: 360694 1 Tablet(s) PO UD 06/15/2017 07/25/2017 Inactive Xopenex HFA 45 mcg/actuation aerosol inhaler RxNorm: 704315 INHALE ONE PUFF INTO LUNGS NEEDED 06/13/2017 07/14/2017 Inactive Xopenex 1.25 mg/3 mL solution for nebulization RxNorm: 437415 Milliliter(s) USE ONE VIAL IN NEBULIZER THREE TIMES DAILY 06/08/2017 No Stop Date Active Flovent HFA 44 mcg/actuation aerosol inhaler RxNorm: 542140 2 Puff(s) INH BID 06/08/2017 No Stop Date Active potassium chloride ER 10 mEq tablet,extended release RxNorm: 448082 1 Tablet(s) PO daily 06/08/2017 06/10/2017 Inactive Lasix 20 mg tablet RxNorm: 188421 1 Tablet(s) PO daily 06/08/2017 06/10/2017 Inactive Xopenex HFA 45 mcg/actuation aerosol inhaler RxNorm: 918926 INHALE ONE PUFF INTO LUNGS NEEDED 06/08/2017 06/12/2017 Inactive triamcinolone acetonide 0.025 % topical cream RxNorm: 6947784 1 Application TOP BID 06/07/2017 No Stop Date Active ibuprofen 800 mg tablet RxNorm: 496821 1 Tablet(s) PO TID 06/07/2017 07/06/2017 Inactive cyclobenzaprine 5 mg tablet RxNorm: 651239 1/2 Tablet(s) PO TID as needed muscle spasms 05/28/2017 06/01/2017 Inactive Diflucan 150 mg tablet RxNorm: 456437 TAKE ONE TABLET BY MOUTH ONCE DAILY FOR 7 DAYS THEN TAKE ONE TABLET BY MOUTH ONCE A WEEK 05/28/2017 01/07/2018 Inactive bumetanide 1 mg tablet RxNorm: 506761 TAKE ONE TABLET BY MOUTH TWICE DAILY 05/25/2017 No Stop Date Active meloxicam 7.5 mg tablet RxNorm: 758786 1 Tablet(s) PO daily as needed 05/25/2017 07/23/2017 Inactive Xopenex 1.25 mg/3 mL solution for nebulization RxNorm: 825627 USE ONE VIAL IN NEBULIZER THREE TIMES DAILY 05/25/2017 06/07/2017 Inactive Protonix 40 mg tablet,delayed release RxNorm: 785122 1 Tablet(s) PO daily 05/08/2017 11/03/2017 Inactive Protonix 40 mg tablet,delayed release RxNorm: 146231 1 Tablet(s) PO daily 05/04/2017 05/03/2017 Inactive Protonix 40 mg tablet,delayed release RxNorm: 181572 1 Tablet(s) PO daily 05/04/2017 05/07/2017 Inactive meloxicam 7.5 mg tablet RxNorm: 525537 1 Tablet(s) PO daily as needed 04/25/2017 04/24/2017 Inactive meloxicam 7.5 mg tablet RxNorm: 629455 1 Tablet(s) PO daily as needed 04/25/2017 05/04/2017 Inactive promethazine 25 mg tablet RxNorm: 258245 TAKE ONE TABLET BY MOUTH EVERY 6 TO 8 HOURS NEEDED 04/25/2017 01/07/2018 Inactive Kenalog 40 mg/mL suspension for injection RxNorm: 1462398 1 Milliliter(s) Inj 04/24/2017 04/24/2017 Inactive cyclobenzaprine 5 mg tablet RxNorm: 521858 1/2 Tablet(s) PO TID as needed muscle spasms 04/24/2017 04/28/2017 Inactive Xopenex HFA 45 mcg/actuation aerosol inhaler RxNorm: 090203 INHALE ONE PUFF INTO LUNGS NEEDED 03/30/2017 04/14/2017 Inactive Humalog KwikPen 200 unit/mL (3 mL) subcutaneous RxNorm: 8444990 INJECT 35 UNITS SUBCUTANEOUSLY BEFORE MEAL(S) 03/30/2017 06/05/2017 Inactive promethazine 25 mg tablet RxNorm: 521059 Tablet(s) TAKE ONE TABLET BY MOUTH EVERY 6 TO 8 HOURS NEEDED 03/12/2017 03/26/2017 Inactive cyclobenzaprine 10 mg tablet RxNorm: 108436 TAKE ONE TABLET BY MOUTH ONCE DAILY NEEDED 03/06/2017 03/15/2017 Inactive lidocaine 5 % topical patch RxNorm: 8534705 USE ONE PATCH TOPICALLY DAILY. 12 HOURS ON AND THEN 12 HOURS OFF. 03/06/2017 03/15/2017 Inactive Humalog KwikPen 200 unit/mL (3 mL) subcutaneous RxNorm: 1603624 INJECT 35 UNITS SUBCUTANEOUSLY BEFORE MEAL(S) 02/20/2017 03/25/2017 Inactive promethazine 25 mg tablet RxNorm: 687259 Tablet(s) TAKE ONE TABLET BY MOUTH EVERY 6 TO 8 HOURS NEEDED 02/20/2017 03/06/2017 Inactive Xopenex HFA 45 mcg/actuation aerosol inhaler RxNorm: 123522 INHALE ONE PUFF INTO LUNGS NEEDED 02/20/2017 03/07/2017 Inactive bumetanide 1 mg tablet RxNorm: 393914 TAKE ONE TABLET BY MOUTH TWICE DAILY 02/15/2017 05/15/2017 Inactive bumetanide 1 mg tablet RxNorm: 467873 TAKE ONE TABLET BY MOUTH TWICE DAILY 01/15/2017 02/13/2017 Inactive metoprolol succinate ER 100 mg tablet,extended release 24 hr RxNorm: 838180 TAKE ONE TABLET BY MOUTH ONCE DAILY 01/11/2017 06/19/2017 Inactive Zithromax Z-Rashid 250 mg tablet RxNorm: 459472 1 Tablet(s) PO UD 01/09/2017 03/13/2017 Inactive meclizine 25 mg tablet RxNorm: 245729 1 Tablet(s) PO TID as needed 01/09/2017 01/18/2017 Inactive Kenalog 40 mg/mL suspension for injection RxNorm: 8038401 Milliliter(s) Inj 01/09/2017 01/09/2017 Inactive promethazine 25 mg tablet RxNorm: 021504 Tablet(s) TAKE ONE TABLET BY MOUTH EVERY 6 TO 8 HOURS NEEDED 12/29/2016 01/12/2017 Inactive Voltaren 1 % topical gel RxNorm: 811498 APPLY TOPICALLY TO AFFECTED AREA TWICE DAILY 12/25/2016 01/13/2017 Inactive cyclobenzaprine 10 mg tablet RxNorm: 105128 TAKE ONE TABLET BY MOUTH NEEDED 12/22/2016 12/31/2016 Inactive lidocaine 5 % topical patch RxNorm: 7996239 USE ONE PATCH TOPICALLY DAILY. 12 HOURS ON AND THEN 12 HOURS OFF. 12/22/2016 12/31/2016 Inactive hydrocodone 7.5 mg-acetaminophen 325 mg tablet RxNorm: 462842 1 Tablet(s) PO Q4H as needed 12/22/2016 01/20/2017 Inactive bumetanide 1 mg tablet RxNorm: 097262 TAKE ONE TABLET BY MOUTH TWICE DAILY 12/17/2016 01/14/2017 Inactive promethazine 25 mg tablet RxNorm: 124292 Tablet(s) TAKE ONE TABLET BY MOUTH EVERY 6 TO 8 HOURS NEEDED 11/16/2016 12/15/2016 Inactive spironolactone 50 mg tablet RxNorm: 471242 TAKE ONE TABLET BY MOUTH TWICE DAILY 11/15/2016 05/13/2017 Inactive Basaglar KwikPen 100 unit/mL (3 mL) subcutaneous RxNorm: 6379688 Unit(s) INJECT 35 UNITS IN THE MORNING AND 50 UNITS IN THE EVENING SUBCUTANEOUSLY 11/15/2016 03/14/2017 Inactive cyclobenzaprine 10 mg tablet RxNorm: 433779 TAKE ONE TABLET BY MOUTH NEEDED 11/15/2016 12/04/2016 Inactive lidocaine 5 % topical patch RxNorm: 8790704 1 Patch TOP daily . 12 HOURS ON, 12 HOURS OFF 11/15/2016 12/04/2016 Inactive lidocaine 4 % topical patch RxNorm: 7328674 1 Patch TOP on for 12 hours and off for 12 hours 11/14/2016 11/14/2016 Inactive promethazine 25 mg tablet RxNorm: 218290 TAKE ONE TABLET BY MOUTH EVERY 6 TO 8 HOURS NEEDED 11/14/2016 11/15/2016 Inactive Basaglar KwikPen 100 unit/mL (3 mL) subcutaneous RxNorm: 7737631 INJECT 35 UNITS IN THE MORNING AND 50 UNITS IN THE EVENING SUBCUTANEOUSLY 11/14/2016 11/14/2016 Inactive cyclobenzaprine 10 mg tablet RxNorm: 978386 TAKE ONE TABLET BY MOUTH NEEDED 11/14/2016 11/14/2016 Inactive spironolactone 50 mg tablet RxNorm: 480145 TAKE ONE TABLET BY MOUTH TWICE DAILY 11/14/2016 11/14/2016 Inactive Diflucan 150 mg tablet RxNorm: 309342 1 Tablet(s) PO as needed prophylactic after sexual intercourse 10/30/2016 No Stop Date Active hydrocodone 7.5 mg-acetaminophen 325 mg tablet RxNorm: 436747 1 Tablet(s) PO Q4H as needed 10/30/2016 11/28/2016 Inactive clotrimazole 100 mg vaginal tablet RxNorm: 013248 1 Tablet(s) VAG QW 10/30/2016 11/28/2016 Inactive Humalog KwikPen 200 unit/mL (3 mL) subcutaneous RxNorm: 9436692 35 Unit(s) SQ AC 10/30/2016 02/19/2017 Inactive QS 30 day supply Bydureon 2 mg/0.65 mL subcutaneous pen injector RxNorm: 1956265 2 Milligram(s) SQ QW 10/30/2016 11/28/2016 Inactive Basaglar KwikPen 100 unit/mL (3 mL) subcutaneous RxNorm: 2418729 Unit(s) SQ 35 units in the morning and 50 units in the evening 10/30/2016 11/13/2016 Inactive QS 30 day supply cyclobenzaprine 10 mg tablet RxNorm: 631606 TAKE ONE TABLET BY MOUTH NEEDED 10/27/2016 11/05/2016 Inactive Diflucan 150 mg tablet RxNorm: 065863 1 Tablet(s) PO daily x 7 days then once a week 10/27/2016 10/29/2016 Inactive promethazine 25 mg tablet RxNorm: 391045 TAKE ONE TABLET BY MOUTH EVERY 6 TO 8 HOURS NEEDED 10/27/2016 11/10/2016 Inactive Diflucan 150 mg tablet RxNorm: 516488 1 Tablet(s) PO daily x 7 days then once a week 10/09/2016 10/15/2016 Inactive Diflucan 150 mg tablet RxNorm: 972049 1 Tablet(s) PO daily 09/20/2016 09/26/2016 Inactive Cipro 500 mg tablet RxNorm: 987547 1 Tablet(s) PO BID 09/12/2016 09/21/2016 Inactive Flagyl 500 mg tablet RxNorm: 330607 1 Tablet(s) PO TID 09/12/2016 09/21/2016 Inactive Diflucan 150 mg tablet RxNorm: 757749 1 Tablet(s) PO daily 09/06/2016 09/12/2016 Inactive hydrocodone 7.5 mg-acetaminophen 325 mg tablet RxNorm: 028112 1 Tablet(s) PO Q4H as needed 07/12/2016 08/10/2016 Inactive Xopenex 1.25 mg/3 mL solution for nebulization RxNorm: 294601 3 Milliliter(s) INH TID 06/16/2016 05/24/2017 Inactive cefdinir 300 mg capsule RxNorm: 165275 1 Capsule(s) PO BID 06/16/2016 06/25/2016 Inactive Mobic 7.5 mg tablet RxNorm: 599983 1 Tablet(s) PO daily 06/16/2016 06/25/2016 Inactive Levaquin 500 mg tablet RxNorm: 039852 1 Tablet(s) PO daily 06/16/2016 06/22/2016 Inactive cyclobenzaprine 10 mg tablet RxNorm: 360868 1 Tablet(s) PO PRN as needed 06/14/2016 06/23/2016 Inactive promethazine 25 mg tablet RxNorm: 522707 TAKE ONE TABLET BY MOUTH EVERY 6 TO 8 HOURS NEEDED 06/14/2016 06/28/2016 Inactive Xopenex HFA 45 mcg/actuation aerosol inhaler RxNorm: 571478 1 Puff(s) INH PRN 06/14/2016 07/15/2016 Inactive pen needle, diabetic 32 gauge x 5/16" RxNorm: 1 use Miscellaneous AC & HS 06/13/2016 No Stop Date Active QS 30 day supply Humalog KwikPen 200 unit/mL (3 mL) subcutaneous RxNorm: 6611140 10 Unit(s) SQ AC 06/13/2016 10/29/2016 Inactive QS 30 day supply Basaglar KwikPen 100 unit/mL (3 mL) subcutaneous RxNorm: 5182282 22 units in the morning and 35 in the evening. Unit(s) SQ 06/13/2016 10/29/2016 Inactive QS 30 day supply Tivorbex 20 mg capsule RxNorm: 8677187 1 Capsule(s) PO TID as needed 06/13/2016 06/13/2016 Inactive metoprolol succinate ER 100 mg tablet,extended release 24 hr RxNorm: 446353 TAKE ONE TABLET BY MOUTH ONCE DAILY 06/13/2016 10/10/2016 Inactive hydrocodone 7.5 mg-acetaminophen 325 mg tablet RxNorm: 958010 1 Tablet(s) PO Q4H as needed 06/13/2016 07/11/2016 Inactive Voltaren 1 % topical gel RxNorm: 900233 APPLY TOPICALLY TO AFFECTED AREA TWICE DAILY 05/30/2016 07/08/2016 Inactive alprazolam 0.5 mg tablet RxNorm: 800169 1 Tablet(s) PO Q8 as needed 05/19/2016 No Stop Date Active cyclobenzaprine 10 mg tablet RxNorm: 337297 1 Tablet(s) PO PRN as needed 05/19/2016 05/28/2016 Inactive bumetanide 1 mg tablet RxNorm: 516329 TAKE ONE TABLET BY MOUTH TWICE DAILY 05/19/2016 06/17/2016 Inactive Sprintec (28) 0.25 mg-35 mcg tablet RxNorm: 214915 1 Tablet(s) PO UD 05/08/2016 No Stop Date Active Lantus Solostar 100 unit/mL (3 mL) subcutaneous insulin pen RxNorm: 468933 Unit(s) SQ UD 15units qam 30 units qhs 05/08/2016 No Stop Date Active Humalog KwikPen 200 unit/mL (3 mL) subcutaneous RxNorm: 0539595 10 Unit(s) SQ AC 05/08/2016 06/12/2016 Inactive bumetanide 1 mg tablet RxNorm: 355160 TAKE ONE TABLET BY MOUTH TWICE DAILY 04/28/2016 05/18/2016 Inactive Voltaren 1 % topical gel RxNorm: 050212 1 Application TOP BID 04/28/2016 05/07/2016 Inactive cyclobenzaprine 10 mg tablet RxNorm: 026658 1 Tablet(s) PO PRN as needed 04/28/2016 05/07/2016 Inactive hydrocodone 7.5 mg-acetaminophen 325 mg tablet RxNorm: 135489 1 Tablet(s) PO Q4H as needed 04/18/2016 05/16/2016 Inactive Lantus Solostar 100 unit/mL (3 mL) subcutaneous insulin pen RxNorm: 205919 Unit(s) SQ UD 10 units QHS x5 days, if sugars are over 200 increase to 15 units x 5 days, if sugars over 200 increase to 20 units. 04/14/2016 05/07/2016 Inactive lidocaine 4 % topical patch RxNorm: 1584193 1 Patch TOP on for 12 hours and off for 12 hours 04/13/2016 11/13/2016 Inactive Voltaren 1 % topical gel RxNorm: 434491 1 Application TOP BID 04/10/2016 04/27/2016 Inactive metformin ER 500 mg 24 hr tablet,extended release RxNorm: 974474 1 Tablet(s) PO daily 04/06/2016 05/05/2016 Inactive Kenalog 40 mg/mL suspension for injection RxNorm: 7387759 1 Milliliter(s) Inj 04/06/2016 04/06/2016 Inactive cyclobenzaprine 10 mg tablet RxNorm: 677005 1 Tablet(s) PO PRN as needed 04/06/2016 04/27/2016 Inactive WelChol 3.75 gram oral powder packet RxNorm: 104642 1 packet PO daily 04/06/2016 07/04/2016 Inactive alprazolam 0.5 mg tablet RxNorm: 728670 1 Tablet(s) PO Q8 as needed 03/30/2016 06/19/2017 Inactive Levaquin 500 mg tablet RxNorm: 597315 1 Tablet(s) PO daily 03/30/2016 04/05/2016 Inactive metoprolol succinate ER 100 mg tablet,extended release 24 hr RxNorm: 081708 TAKE ONE TABLET BY MOUTH ONCE DAILY 03/16/2016 06/12/2016 Inactive Levaquin 500 mg tablet RxNorm: 478255 1 Tablet(s) PO daily 03/08/2016 03/14/2016 Inactive prednisone 20 mg tablet RxNorm: 445459 2 Tablet(s) PO daily 03/08/2016 03/12/2016 Inactive Xopenex HFA 45 mcg/actuation aerosol inhaler RxNorm: 132742 1 Puff(s) INH PRN 02/28/2016 06/13/2016 Inactive Phenergan with Codeine Syrup RxNorm: 5-10 ML PO QID as needed cough 02/28/2016 03/18/2018 Inactive Kenalog 40 mg/mL suspension for injection RxNorm: 2500841 1 Milliliter(s) Inj 02/28/2016 02/28/2016 Inactive Zithromax Z-Rashid 250 mg tablet RxNorm: 680535 1 Tablet(s) PO UD 02/28/2016 03/27/2016 Inactive alprazolam 0.5 mg tablet RxNorm: 968183 1 Tablet(s) PO Q8 as needed 02/24/2016 06/19/2017 Inactive glipizide 5 mg tablet RxNorm: 957363 1 Tablet(s) PO daily 01/18/2016 05/16/2016 Inactive Actos 15 mg tablet RxNorm: 795224 1 Tablet(s) PO daily 01/18/2016 02/16/2016 Inactive gabapentin 100 mg capsule RxNorm: 116350 1 Capsule(s) PO QHS 01/13/2016 03/12/2016 Inactive gabapentin 100 mg capsule RxNorm: 362098 1 Capsule(s) PO QHS 01/13/2016 01/12/2016 Inactive Bydureon 2 mg/0.65 mL subcutaneous pen injector RxNorm: 0769246 1 Milliliter(s) SQ QW 01/12/2016 01/11/2016 Inactive Bydureon 2 mg/0.65 mL subcutaneous pen injector RxNorm: 6714441 2/0.65ml Milligram(s) SQ QW 01/12/2016 05/16/2016 Inactive Bydureon 2 mg/0.65 mL subcutaneous pen injector RxNorm: 5020420 1 Milliliter(s) SQ QW 01/12/2016 01/11/2016 Inactive bumetanide 1 mg tablet RxNorm: 883182 TAKE ONE TABLET BY MOUTH TWICE DAILY 01/10/2016 04/08/2016 Inactive promethazine 25 mg tablet RxNorm: 757535 Tablet(s) Tablet(s) 1 Tablet(s) PO Q6-8H as needed 12/16/2015 04/13/2016 Inactive promethazine 25 mg tablet RxNorm: 621859 Tablet(s) 1 Tablet(s) PO Q6-8H as needed 12/10/2015 12/15/2015 Inactive Trulicity 0.75 mg/0.5 mL subcutaneous pen injector RxNorm: 7130553 INJECT ONE-HALF ML SUBCUTANEOUSLY ONCE A WEEK 12/10/2015 01/11/2016 Inactive glipizide 5 mg tablet RxNorm: 955320 1 Tablet(s) PO daily 12/10/2015 01/17/2016 Inactive bumetanide 1 mg tablet RxNorm: 304370 TAKE ONE TABLET BY MOUTH TWICE DAILY 12/10/2015 01/08/2016 Inactive promethazine 25 mg tablet RxNorm: 347555 Tablet(s) 1 Tablet(s) PO Q6-8H as needed 11/18/2015 12/09/2015 Inactive promethazine 25 mg tablet RxNorm: 212081 1 Tablet(s) PO Q6-8H as needed 11/16/2015 11/17/2015 Inactive glipizide 5 mg tablet RxNorm: 777928 1/2 Tablet(s) PO daily 11/16/2015 12/15/2015 Inactive promethazine 25 mg tablet RxNorm: 589969 Tablet(s) 1 Tablet(s) PO Q6-8H as needed 11/11/2015 12/10/2015 Inactive metoprolol tartrate 50 mg tablet RxNorm: 312575 1 Tablet(s) PO BID 11/11/2015 02/08/2016 Inactive Trulicity 0.75 mg/0.5 mL subcutaneous pen injector RxNorm: 3056404 .5 Milliliter(s) SQ QW 11/11/2015 01/11/2016 Inactive promethazine 25 mg tablet RxNorm: 428912 1 Tablet(s) PO Q6-8H as needed 10/28/2015 11/10/2015 Inactive nystatin 100,000 unit/gram topical cream RxNorm: 254088 1 Gram(s) TOP BID 10/27/2015 No Stop Date Active alprazolam 0.5 mg tablet RxNorm: 468427 1 Tablet(s) PO Q8 as needed 10/27/2015 03/29/2016 Inactive hydrocodone 7.5 mg-acetaminophen 325 mg tablet RxNorm: 249999 1 Tablet(s) PO Q4H as needed 10/27/2015 11/25/2015 Inactive Trulicity 0.75 mg/0.5 mL subcutaneous pen injector RxNorm: 5959242 .5 Milliliter(s) SQ QW 10/27/2015 11/10/2015 Inactive glipizide 5 mg tablet RxNorm: 277329 1 Tablet(s) PO daily 10/27/2015 11/25/2015 Inactive hydrocodone 7.5 mg-acetaminophen 325 mg tablet RxNorm: 414945 1 Tablet(s) PO Q4H as needed 10/26/2015 10/26/2015 Inactive alprazolam 0.5 mg tablet RxNorm: 024791 1 Tablet(s) PO PRN as needed 10/26/2015 10/26/2015 Inactive promethazine 25 mg tablet RxNorm: 564966 1 Tablet(s) PO Q6-8H as needed 10/26/2015 11/15/2015 Inactive glipizide 5 mg tablet RxNorm: 644495 1/2 Tablet(s) PO daily 10/13/2015 10/26/2015 Inactive cefdinir 300 mg capsule RxNorm: 374273 1 Capsule(s) PO BID 10/05/2015 10/14/2015 Inactive prednisone 20 mg tablet RxNorm: 591356 2 Tablet(s) PO daily 10/05/2015 10/09/2015 Inactive Diflucan 150 mg tablet RxNorm: 277654 1 Tablet(s) PO daily 10/05/2015 10/11/2015 Inactive Invokamet 50 mg-500 mg tablet RxNorm: 0203927 1 Tablet(s) PO daily 10/05/2015 11/03/2015 Inactive alprazolam 0.5 mg tablet RxNorm: 165679 1 Tablet(s) PO PRN as needed 10/01/2015 02/23/2016 Inactive promethazine 25 mg tablet RxNorm: 367722 1 Tablet(s) PO Q6-8H as needed 09/30/2015 10/25/2015 Inactive bumetanide 1 mg tablet RxNorm: 528108 TAKE ONE TABLET BY MOUTH TWICE DAILY 09/30/2015 10/29/2015 Inactive bumetanide 1 mg tablet RxNorm: 925428 TAKE ONE TABLET BY MOUTH TWICE DAILY 09/20/2015 12/18/2015 Inactive bumetanide 1 mg tablet RxNorm: 305805 1 Tablet(s) PO BID 09/20/2015 10/19/2015 Inactive metoprolol succinate ER 100 mg tablet,extended release 24 hr RxNorm: 308230 1 Tablet(s) PO daily 09/16/2015 03/13/2016 Inactive spironolactone 50 mg tablet RxNorm: 353028 1 Tablet(s) PO BID 09/16/2015 03/13/2016 Inactive alprazolam 0.5 mg tablet RxNorm: 624280 1 Tablet(s) PO PRN as needed 09/16/2015 10/25/2015 Inactive hydrocodone 7.5 mg-acetaminophen 325 mg tablet RxNorm: 130256 1 Tablet(s) PO Q4H as needed 09/16/2015 10/25/2015 Inactive Invokamet 50 mg-1,000 mg tablet RxNorm: 6236963 1 Tablet(s) PO daily 09/06/2015 09/05/2015 Inactive Invokamet 50 mg-1,000 mg tablet RxNorm: 3941412 1 Tablet(s) PO daily 09/06/2015 12/04/2015 Inactive promethazine 25 mg tablet RxNorm: 727046 TAKE ONE TABLET BY MOUTH EVERY 6 TO 8 HOURS NEEDED 09/01/2015 09/16/2015 Inactive promethazine 25 mg tablet RxNorm: 601463 1 Tablet(s) PO Q6-8H as needed 08/27/2015 09/25/2015 Inactive metoprolol succinate ER 100 mg tablet,extended release 24 hr RxNorm: 256012 1 Tablet(s) PO daily 08/20/2015 09/15/2015 Inactive bumetanide 1 mg tablet RxNorm: 156849 1 Tablet(s) PO BID 08/20/2015 09/18/2015 Inactive Bumex 1 mg tablet RxNorm: 904609 1 Tablet(s) PO BID 08/20/2015 11/15/2015 Inactive Kenalog 40 mg/mL suspension for injection RxNorm: 8677705 Milliliter(s) Inj 08/20/2015 08/20/2015 Inactive bumetanide 1 mg tablet RxNorm: 344118 1 Tablet(s) PO BID 08/20/2015 08/19/2015 Inactive Levaquin 500 mg tablet RxNorm: 108319 1 Tablet(s) PO daily 08/20/2015 08/26/2015 Inactive promethazine 25 mg tablet RxNorm: 886544 1 Tablet(s) PO Q6-8H as needed 08/06/2015 08/26/2015 Inactive metformin 500 mg tablet RxNorm: 879281 Tablet(s) PO 500mg in the morning and 1000mg at night No Start Date 09/16/2015 Inactive Lantus Solostar 100 unit/mL (3 mL) subcutaneous insulin pen RxNorm: 123961 Unit(s) SQ UD 10 units QHS x 5 days, if blood sugars are above 200 increase to 15 units x 5 days, if still 200 increase to 20 units. No Start Date 04/13/2016 Inactive alprazolam 0.5 mg tablet RxNorm: 081519 1 Tablet(s) PO PRN as needed No Start Date 09/15/2015 Inactive cyclobenzaprine 10 mg tablet RxNorm: 906983 1 Tablet(s) PO PRN as needed No Start Date 04/05/2016 Inactive lidocaine 4 % topical patch RxNorm: 6882395 1 Patch TOP on for 12 hours and off for 12 hours No Start Date 04/12/2016 Inactive metoprolol tartrate 50 mg tablet RxNorm: 938937 1 Tablet(s) PO BID No Start Date 11/10/2015 Inactive spironolactone 50 mg tablet RxNorm: 150256 1 Tablet(s) PO BID No Start Date 09/15/2015 Inactive hydrocodone 7.5 mg-acetaminophen 325 mg tablet RxNorm: 169247 1 Tablet(s) PO Q4H as needed No Start Date 09/15/2015 Inactive promethazine 25 mg tablet RxNorm: 589324 1 Tablet(s) PO PRN as needed No Start Date 08/05/2015 Inactive Medication Administered Medication Codes Instructions Start Date Status ceftriaxone 500 mg solution for injection RxNorm: 2985362 06/05/2018 No longer Active Kenalog 40 mg/mL suspension for injection RxNorm: 9988045 15.Milliliter 02/19/2018 No longer Active Kenalog 40 mg/mL suspension for injection RxNorm: 1113955 Milliliter 09/05/2017 No longer Active Kenalog 40 mg/mL suspension for injection RxNorm: 8019698 1Milliliter 04/24/2017 No longer Active Kenalog 40 mg/mL suspension for injection RxNorm: 0846998 Milliliter 01/09/2017 No longer Active Kenalog 40 mg/mL suspension for injection RxNorm: 2703063 1Milliliter 04/06/2016 No longer Active Kenalog 40 mg/mL suspension for injection RxNorm: 6506217 1Milliliter 02/28/2016 No longer Active Kenalog 40 mg/mL suspension for injection RxNorm: 7240909 Milliliter 08/20/2015 No longer Active Immunizations Vaccine [...] with hyperglycemia ICD-10: E11.65 ICD-9: 250.02 06/05/2018 Cough ICD-10: R05 ICD-9: 786.2 03/26/2018 Other allergic rhinitis ICD-10: J30.89 ICD-9: 477.8 03/26/2018 Gastro-esophageal reflux disease without esophagitis ICD-10: K21.9 ICD-9: 530.81 03/26/2018 Other hypertrophic disorders of the skin ICD-10: L91.8 ICD-9: 701.9 03/14/2018 Encounter for immunization ICD-10: Z23 ICD-9: V04.81 03/14/2018 Acute laryngopharyngitis ICD-10: J06.0 ICD-9: 465.0 03/07/2018 Acute bronchitis due to other specified organisms ICD-10: J20.8 ICD-9: 466.0 02/19/2018 Candidiasis of vulva and vagina ICD-10: B37.3 ICD-9: 112.1 01/08/2018 Rash and other nonspecific skin eruption ICD-10: R21 ICD-9: 782.1 01/08/2018 Sacrococcygeal disorders, not elsewhere classified ICD-10: [...] pollen ICD-10: J30.1 ICD-9: 477.0 10/05/2015 Other skin changes ICD-10: R23.8 ICD-9: 709.8 09/01/2015 Other abnormal glucose ICD-10: R73.09 ICD-9: 790.29 09/01/2015 Essential (primary) hypertension ICD-10: I10 ICD-9: 401.9 08/20/2015 Obstructive sleep apnea (adult) (pediatric) ICD-10: G47.33 ICD-9: 327.23 08/03/2015 Snoring ICD-10: R06.83 ICD-9: 786.09 08/03/2015 Reason For Visit Reason For Visit [...] Code Item Item Code Result Date %Hba1C Wvh646 % HbA1c 45818- 6 8.4 % 06/06/2018 %Hba1C Tkt793 Gluc Ave 194 mg/dL 06/06/2018 Tsh Ord6 TSH (3rd IS) 1.09 uIU/mL 03/14/2018 %Hba1C Swz398 % HbA1c 52083- 6 9.8 % 03/14/2018 %Hba1C Ztf652 Gluc Ave 235 mg/dL 03/14/2018 Comp Metabolic Dgp875 NA 137 mEq/L 03/14/2018 Comp Metabolic Bbw922 K 4.6 mEq/L 03/14/2018 Comp Metabolic Lyz428 CL 100 mEq/L 03/14/2018 Comp Metabolic Mic089 CO2 27.0 mEq/L 03/14/2018 Comp Metabolic Dyw630 ANION GAP 15 03/14/2018 Comp Metabolic Kqd952 GLUCOSE 144 mg/dL 03/14/2018 Comp Metabolic Jjs985 Creat 0.5 mg/dL 03/14/2018 Comp Metabolic Wgd952 eGFR 138 ml/min/1.73m2 03/14/2018 Comp Metabolic Cru624 BUN 9 mg/dL 03/14/2018 Comp Metabolic Zdu218 B/C Ratio 17.6 Ratio 03/14/2018 Comp Metabolic Gik356 CALCIUM 10.0 mg/dL 03/14/2018 Comp Metabolic Zmm672 ALK PHOS 102 U/L 03/14/2018 Comp Metabolic Rnf673 AST(SGOT) 31 U/L 03/14/2018 Comp Metabolic Afb641 ALT(SGPT) 41 U/L 03/14/2018 Comp Metabolic Wdo852 BILI T 0.5 mg/dL 03/14/2018 Comp Metabolic Qgl605 ALBUMIN 4.3 g/dL 03/14/2018 Comp Metabolic Nba856 TPRO 6.8 g/dL 03/14/2018 Comp Metabolic Moh357 GLOB 2.5 g/dL 03/14/2018 Comp Metabolic Anq361 A/G Ratio 1.8 Ratio 03/14/2018 Comp Metabolic Wla081 Osmo 275 mOsmo 03/14/2018 Cbc With Differential [...] 25.7 % 03/14/2018 Cbc With Differential Ord2 Beckham% 5.6 % 03/14/2018 Cbc With Differential Ord2 [...] 4.31 K/ul 03/14/2018 Cbc With Differential Ord2 Beckham ABS# 0.9 K/ul 03/14/2018 Cbc With Differential Ord2 Eos ABS# 0.2 K/ul 03/14/2018 Cbc With Differential Ord2 Baso ABS# 0.1 K/ul 03/14/2018 Lipid Ord30 CHOL 233 mg/dL 03/14/2018 Lipid Ord30 HDL 38.0 mg/dl 03/14/2018 Lipid Ord30 TRIG 143 mg/dL 03/14/2018 Lipid Ord30 LDL 166 mg/dL 03/14/2018 Lipid Ord30 C/HDL 6.1 Ratio 03/14/2018 Cbc With Differential Ord2 WBC 14.30 K/ul [...] 30.2 pg 06/13/2017 Cbc With Differential Ord2 Beckham% 4.9 % 06/13/2017 Cbc With Differential Ord2 Eos% 1.0 % 06/13/2017 Cbc With Differential Ord2 MCHC 32.8 pg 06/13/2017 Cbc With Differential Ord2 Baso% 0.4 % 06/13/2017 Cbc With Differential Ord2 PLT 392 K/ul 06/13/2017 Cbc With Differential Ord2 RDW 14.4 % 06/13/2017 Cbc With Differential Ord2 Neut ABS# 10.18 K/ul 06/13/2017 Cbc With Differential Ord2 Lymph ABS# 3.21 K/ul 06/13/2017 Cbc With Differential Ord2 Beckham ABS# 0.7 K/ul 06/13/2017 Cbc With Differential Ord2 Eos ABS# 0.2 K/ul 06/13/2017 Cbc With Differential Ord2 Baso ABS# 0.1 K/ul 06/13/2017 Lipid Ord30 CHOL 219 mg/dL 06/13/2017 Lipid Ord30 HDL 40.0 mg/dl 06/13/2017 Lipid Ord30 TRIG 200 mg/dL 06/13/2017 Lipid Ord30 LDL 139 mg/dL 06/13/2017 Lipid Ord30 C/HDL 5.5 Ratio 06/13/2017 Comp Metabolic Nyh455 NA 139 mEq/L 06/13/2017 Comp Metabolic Lxv138 K 4.4 mEq/L 06/13/2017 Comp Metabolic Qum879 CL 100 mEq/L 06/13/2017 Comp Metabolic Wys056 CO2 29.0 mEq/L 06/13/2017 Comp Metabolic Gok536 ANION GAP 14 06/13/2017 Comp Metabolic Lau346 GLUCOSE 257 mg/dL 06/13/2017 Comp Metabolic Zvk514 Creat 0.5 mg/dL 06/13/2017 Comp Metabolic Lfm103 eGFR 145 ml/min/1.73m2 06/13/2017 Comp Metabolic Cqj102 BUN 13 mg/dL 06/13/2017 Comp Metabolic Ytz135 B/C Ratio 26.5 Ratio 06/13/2017 Comp Metabolic Cjl350 CALCIUM 9.7 mg/dL 06/13/2017 Comp Metabolic Egk497 ALK PHOS 98 U/L 06/13/2017 Comp Metabolic Qrm928 AST(SGOT) 30 U/L 06/13/2017 Comp Metabolic Dwf287 ALT(SGPT) 43 U/L 06/13/2017 Comp Metabolic Ncc829 BILI T 0.5 mg/dL 06/13/2017 Comp Metabolic Zpp154 ALBUMIN 4.0 g/dL 06/13/2017 Comp Metabolic Hoj556 TPRO 6.4 g/dL 06/13/2017 Comp Metabolic Kcr069 GLOB 2.4 g/dL 06/13/2017 Comp Metabolic Fxj085 A/G Ratio 1.7 Ratio 06/13/2017 Comp Metabolic Xml970 Osmo 286 mOsmo 06/13/2017 Tsh Ord6 hTSH II 1.50 uIU/mL 06/13/2017 %Hba1C Sjg282 % HbA1c 83354- 6 8.8 % 06/13/2017 %Hba1C Sio896 Gluc Ave 206 mg/dL 06/13/2017 %Hba1C Rbx053 % HbA1c 01952- 6 11.1 % 2016 %Hba1C Aqb166 Gluc Ave 272 mg/dL 2016 C-Reactive Protein Qnt Crqnt CRP 4.7 mg/dl 2016 Comp Metabolic Zcj125 NA 136 mEq/L 2016 Comp Metabolic Jfa503 K 4.1 mEq/L 2016 Comp Metabolic Wyb531 CL 96 mEq/L 2016 Comp Metabolic Rbr518 CO2 29.0 mEq/L 2016 Comp Metabolic Lfx444 ANION GAP 15 2016 Comp Metabolic Xwh456 GLUCOSE 291 mg/dL 2016 Comp Metabolic Tdj413 Creat 0.4 mg/dL 2016 Comp Metabolic Mqk099 eGFR 165 ml/min/1.73m2 2016 Comp Metabolic Vuu994 BUN 11 mg/dL 2016 Comp Metabolic Wwp032 B/C Ratio 25.0 Ratio 2016 Comp Metabolic Wjk461 CALCIUM 9.4 mg/dL 2016 Comp Metabolic Gfn900 ALK PHOS 111 U/L 2016 Comp Metabolic Afc391 AST(SGOT) 46 U/L 2016 Comp Metabolic Eyb786 ALT(SGPT) 60 U/L 2016 Comp Metabolic Yqj794 BILI T 0.4 mg/dL 2016 Comp Metabolic Bib154 ALBUMIN 4.0 g/dL 2016 Comp Metabolic Mdu051 TPRO 6.5 g/dL 2016 Comp Metabolic Uio564 GLOB 2.6 g/dL 2016 Comp Metabolic Gji234 A/G Ratio 1.5 Ratio 2016 Comp Metabolic Euo402 Osmo 282 mOsmo 2016 Cbc With Differential [...] 24.1 % 2016 Cbc With Differential Ord2 Beckham% 4.7 % 2016 Cbc With Differential Ord2 MCH 30.5 pg 2016 Cbc With Differential Ord2 MCHC 32.7 pg 2016 Cbc With Differential Ord2 Eos% 1.1 % 2016 Cbc With Differential Ord2 Baso% 0.5 % 2016 Cbc With Differential Ord2 PLT 357 K/ul 2016 Cbc With Differential Ord2 RDW 14.2 % 2016 Cbc With Differential Ord2 Neut ABS# 10.18 K/ul 2016 Cbc With Differential Ord2 Lymph ABS# 3.53 K/ul 2016 Cbc With Differential Ord2 Beckham ABS# 0.7 K/ul 2016 Cbc With Differential Ord2 Eos ABS# 0.2 K/ul 2016 Cbc With Differential Ord2 Baso ABS# 0.1 K/ul 2016 %Hba1C Gna161 % HbA1c 86846- 6 10.4 % 05/05/2016 %Hba1C Qxh024 Gluc Ave 252 mg/dL 05/05/2016 Comp Metabolic Fkv005 NA 135 mEq/L 05/05/2016 Comp Metabolic Jvk177 K 4.1 mEq/L 05/05/2016 Comp Metabolic Fnh529 CL 99 mEq/L 05/05/2016 Comp Metabolic Rzz388 CO2 29.0 mEq/L 05/05/2016 Comp Metabolic Mcl455 ANION GAP 11 05/05/2016 Comp Metabolic Zqm738 GLUCOSE 229 mg/dL 05/05/2016 Comp Metabolic Wpi966 Creat 0.5 mg/dL 05/05/2016 Comp Metabolic Iwj674 eGFR 150 ml/min/1.73m2 05/05/2016 Comp Metabolic Gnv321 BUN 14 mg/dL 05/05/2016 Comp Metabolic Syu465 B/C Ratio 29.2 Ratio 05/05/2016 Comp Metabolic Kfz900 CALCIUM 9.1 mg/dL 05/05/2016 Comp Metabolic Oxy019 ALK PHOS 112 U/L 05/05/2016 Comp Metabolic Pfg864 AST(SGOT) 59 U/L 05/05/2016 Comp Metabolic Pzf923 ALT(SGPT) 63 U/L 05/05/2016 Comp Metabolic Dka700 BILI T 0.7 mg/dL 05/05/2016 Comp Metabolic Avs801 ALBUMIN 3.8 g/dL 05/05/2016 Comp Metabolic Nlh225 TPRO 6.5 g/dL 05/05/2016 Comp Metabolic Phv130 GLOB 2.7 g/dL 05/05/2016 Comp Metabolic Och141 A/G Ratio 1.4 Ratio 05/05/2016 Comp Metabolic Wlt129 Osmo 278 mOsmo 05/05/2016 Lipid Ord30 CHOL 228 mg/dL 05/05/2016 Lipid Ord30 HDL 42.0 mg/dl 05/05/2016 Lipid Ord30 TRIG 168 mg/dL 05/05/2016 Lipid Ord30 LDL 152 mg/dL 05/05/2016 Lipid Ord30 C/HDL 5.4 Ratio 05/05/2016 Cbc With Differential Ord2 WBC 16.31 [...] 30.2 pg 05/05/2016 Cbc With Differential Ord2 Beckham% 4.4 % 05/05/2016 Cbc With Differential Ord2 [...] 3.59 K/ul 05/05/2016 Cbc With Differential Ord2 Beckham ABS# 0.7 K/ul 05/05/2016 Cbc With Differential Ord2 Eos ABS# 0.1 K/ul 05/05/2016 Cbc With Differential Ord2 Baso ABS# 0.1 K/ul 05/05/2016 Hcg Beta Subunit Qual Serum 856121 B-HCG QUALITATIVE NEGATIVE 12/27/2015 GC/CHL PRB 1345332 Chl trach DNA Negative 12/25/2015 GC/CHL PRB 3871281 GC PROBE Negative 12/25/2015 Comp. Metabolic Panel (14) 52248 GLUCOSE 136 mg/dL 12/17/2015 Comp. Metabolic Panel (14) 54595 BUN 9 mg/dL 12/17/2015 Comp. Metabolic Panel (14) 87171 CREATININE 0.67 mg/dL 12/17/2015 Comp. Metabolic Panel (14) 62518 SODIUM 136 mmol/L 12/17/2015 Comp. Metabolic Panel (14) 29142 POTASSIUM 4.4 mmol/L 12/17/2015 Comp. Metabolic Panel (14) 68624 CHLORIDE 95 mmol/L 12/17/2015 Comp. Metabolic Panel (14) 39226 CARBON DIOXIDE 28 mmol/L 12/17/2015 Comp. Metabolic Panel (14) 46504 CALCIUM 10.1 mg/dL 12/17/2015 Comp. Metabolic Panel (14) 73186 TOTAL PROTEIN 7.0 g/dL 12/17/2015 Comp. Metabolic Panel (14) 93272 ALBUMIN 4.5 g/dL 12/17/2015 Comp. Metabolic Panel (14) 67681 ALKALINE PHOSPHATASE 87 U/L 12/17/2015 Comp. Metabolic Panel (14) 35922 TOTAL BILIRUBIN 0.5 mg/dL 12/17/2015 Comp. Metabolic Panel (14) 92135 SGOT (AST) 38 U/L 12/17/2015 Comp. Metabolic Panel (14) 96759 SGPT (ALT) 41 U/L 12/17/2015 Comp. Metabolic Panel (14) 19255 eGFR (mL/min/1.73m2) >60 12/17/2015 Comp. Metabolic Panel (14) 40331 12/17/2015 Cbc With Differential/Platelet 24129 WBC 16.67 thou/uL 12/17/2015 Cbc With Differential/Platelet 55666 RBC 5.11 mil/uL 12/17/2015 Cbc With Differential/Platelet 31407 HEMOGLOBIN 14.8 g/dL 12/17/2015 Cbc With Differential/Platelet 52739 HEMATOCRIT 48.7 % 12/17/2015 Cbc With Differential/Platelet 18931 MCV 95.4 fL 12/17/2015 Cbc With Differential/Platelet 53004 MCH 29.0 pg 12/17/2015 Cbc With Differential/Platelet 43862 MCHC 30.4 g/dL 12/17/2015 Cbc With Differential/Platelet 00577 RDW-CV 14.6 % 12/17/2015 Cbc With Differential/Platelet 33857 PLATELET COUNT 471 thou/uL 12/17/2015 Cbc With Differential/Platelet 26295 NEUTROPHIL % 71.3 % 12/17/2015 Cbc With Differential/Platelet 11340 LYMPHOCYTE % 22.4 % 12/17/2015 Cbc With Differential/Platelet 90174 MONOCYTE % 4.8 % 12/17/2015 Cbc With Differential/Platelet 79847 EOS % 0.7 % 12/17/2015 Cbc With Differential/Platelet 25861 BASO % 0.7 % 12/17/2015 Cbc With Differential/Platelet 48769 NEUTROPHIL ABS # 11.89 thou/uL 12/17/2015 Cbc With Differential/Platelet 14505 LYMPH ABS # 3.73 thou/uL 12/17/2015 Cbc With Differential/Platelet 98602 MONOCYTE ABS # 0.80 thou/uL 12/17/2015 Cbc With Differential/Platelet 00485 EOS ABS # 0.12 thou/uL 12/17/2015 Cbc With Differential/Platelet 36546 BASO ABS # 0.12 thou/uL 12/17/2015 Comp. [...] >60 11/13/2015 Comp. Metabolic Panel (14) 11/13/2015 Hgb A1C With Eag Estimation GLYCOHEMOGLOBIN A1C 39481-9 8.1 % 11/13/2015 Hgb A1C With Eag Estimation ESTIMATED AVG GLUCOSE 186 mg/dL 11/13/2015 Cbc With Differential/Platelet WBC 17.26 thou/uL [...] Differential/Platelet BASO ABS # 0.19 thou/uL 11/13/2015 Comp. Metabolic Panel (14) 81874 GLUCOSE 84 mg/dL 09/11/2015 Comp. Metabolic Panel (14) 17774 BUN 11 mg/dL 09/11/2015 Comp. Metabolic Panel (14) 12942 CREATININE 0.56 mg/dL 09/11/2015 Comp. Metabolic Panel (14) 93547 SODIUM 142 mmol/L 09/11/2015 Comp. Metabolic Panel (14) 13160 POTASSIUM 4.3 mmol/L 09/11/2015 Comp. Metabolic Panel (14) 97759 CHLORIDE 98 mmol/L 09/11/2015 Comp. Metabolic Panel (14) 59760 CARBON DIOXIDE 27 mmol/L 09/11/2015 Comp. Metabolic Panel (14) 25497 CALCIUM 10.1 mg/dL 09/11/2015 Comp. Metabolic Panel (14) 18549 TOTAL PROTEIN 7.2 g/dL 09/11/2015 Comp. Metabolic Panel (14) 26313 ALBUMIN 4.7 g/dL 09/11/2015 Comp. Metabolic Panel (14) 70854 ALKALINE PHOSPHATASE 109 U/L 09/11/2015 Comp. Metabolic Panel (14) 48416 TOTAL BILIRUBIN 0.3 mg/dL 09/11/2015 Comp. Metabolic Panel (14) 46523 SGOT (AST) 53 U/L 09/11/2015 Comp. Metabolic Panel (14) 37491 SGPT (ALT) 53 U/L 09/11/2015 Comp. Metabolic Panel (14) 31744 eGFR (mL/min/1.73m2) >60 09/11/2015 Comp. Metabolic Panel (14) 71954 09/11/2015 Lipid Panel 76525 CHOLESTEROL 193 mg/dL 08/11/2015 Lipid Panel 58479 TRIGLYCERIDES 192 mg/dL 08/11/2015 Lipid Panel 46013 HDL 38 mg/dL 08/11/2015 Lipid Panel 77979 CHOLESTEROL/HDL 5.08 08/11/2015 Lipid Panel 20675 LDL (CALCULATED) 117 mg/dL 08/11/2015 Lipid Panel 15713 LDL/HDL 3.08 08/11/2015 Lipid Panel 56778 PHENOTYPE TYPE IV BORDERLINE 08/11/2015 Cbc With Differential/Platelet 17762 WBC 11.76 thou/uL 08/11/2015 Cbc With Differential/Platelet 79237 RBC 4.98 mil/uL 08/11/2015 Cbc With Differential/Platelet 23022 HEMOGLOBIN 14.2 g/dL 08/11/2015 Cbc With Differential/Platelet 51289 HEMATOCRIT 46.7 % 08/11/2015 Cbc With Differential/Platelet 43037 MCV 93.8 fL 08/11/2015 Cbc With Differential/Platelet 06592 MCH 28.5 pg 08/11/2015 Cbc With Differential/Platelet 17839 MCHC 30.4 g/dL 08/11/2015 Cbc With Differential/Platelet 81726 RDW-CV 14.3 % 08/11/2015 Cbc With Differential/Platelet 42318 PLATELET COUNT 382 thou/uL 08/11/2015 Cbc With Differential/Platelet 22691 NEUTROPHIL % 67.3 % 08/11/2015 Cbc With Differential/Platelet 60105 LYMPHOCYTE % 24.0 % 08/11/2015 Cbc With Differential/Platelet 09425 MONOCYTE % 6.0 % 08/11/2015 Cbc With Differential/Platelet 74939 EOS % 1.6 % 08/11/2015 Cbc With Differential/Platelet 46127 BASO % 1.0 % 08/11/2015 Cbc With Differential/Platelet 75518 NEUTROPHIL ABS # 7.91 thou/uL 08/11/2015 Cbc With Differential/Platelet 10264 LYMPH ABS # 2.82 thou/uL 08/11/2015 Cbc With Differential/Platelet 17445 MONOCYTE ABS # 0.71 thou/uL 08/11/2015 Cbc With Differential/Platelet 91467 EOS ABS # 0.19 thou/uL 08/11/2015 Cbc With Differential/Platelet 06118 BASO ABS # 0.12 thou/uL 08/11/2015 Comp. Metabolic Panel (14) 15401 GLUCOSE 183 mg/dL 08/11/2015 Comp. Metabolic Panel (14) 55593 BUN 10 mg/dL 08/11/2015 Comp. Metabolic Panel (14) 75400 CREATININE 0.46 mg/dL 08/11/2015 Comp. Metabolic Panel (14) 67573 SODIUM 138 mmol/L 08/11/2015 Comp. Metabolic Panel (14) 39474 POTASSIUM 4.0 mmol/L 08/11/2015 Comp. Metabolic Panel (14) 31633 CHLORIDE 98 mmol/L 08/11/2015 Comp. Metabolic Panel (14) 41360 CARBON DIOXIDE 29 mmol/L 08/11/2015 Comp. Metabolic Panel (14) 85411 CALCIUM 9.4 mg/dL 08/11/2015 Comp. Metabolic Panel (14) 85888 TOTAL PROTEIN 6.8 g/dL 08/11/2015 Comp. Metabolic Panel (14) 12586 ALBUMIN 4.4 g/dL 08/11/2015 Comp. Metabolic Panel (14) 99329 ALKALINE PHOSPHATASE 118 U/L 08/11/2015 Comp. Metabolic Panel (14) 56056 TOTAL BILIRUBIN <0.3 mg/dL 08/11/2015 Comp. Metabolic Panel (14) 63244 SGOT (AST) 41 U/L 08/11/2015 Comp. Metabolic Panel (14) 40873 SGPT (ALT) 55 U/L 08/11/2015 Comp. Metabolic Panel (14) 14481 eGFR (mL/min/1.73m2) >60 08/11/2015 Comp. Metabolic Panel (14) 78620 08/11/2015 Tsh 165318 TSH 3.220 uIU/mL 08/11/2015 Review of Systems System Result Effective [...] Procedure Codes Date THER/PROPH/DIAG INJ SC/IM CPT-4: 71462 06/05/2018 ROCEPHIN, PER 250 MG CPT- 4: J0696 06/05/2018 REMOVAL OF SKIN TAGS <W/15 CPT-4: 24663 03/14/2018 FLU VAC NO PRSV 4 PRECIOUS 3 YRS+ CPT-4: 67740 03/14/2018 IMMUNIZATION ADMIN CPT- 4: 95245 03/14/2018 TRIAMCINOLONE ACET INJ NOS CPT-4: J3301 02/19/2018 THER/PROPH/DIAG INJ SC/IM CPT-4: 85296 02/19/2018 THER/PROPH/DIAG INJ SC/IM CPT-4: 17880 09/05/2017 TRIAMCINOLONE ACET INJ NOS CPT-4: J3301 09/05/2017 IMMUNIZATION ADMIN CPT- 4: 07955 04/24/2017 FLU VAC NO PRSV 4 PRECIOUS 3 YRS+ CPT-4: 56088 04/24/2017 DRAIN/INJECT JOINT/BURSA CPT-4: 76981 04/24/2017 TRIAMCINOLONE ACET INJ NOS CPT-4: J3301 04/24/2017 THER/PROPH/DIAG INJ SC/IM CPT-4: 80599 01/09/2017 TRIAMCINOLONE ACET INJ NOS CPT-4: J3301 01/09/2017 THER/PROPH/DIAG INJ SC/IM CPT-4: 96014 04/13/2016 Pneumococcal Polysaccharide Vaccine, 23-Valent, Ad CPT-4: 78150 04/13/2016 INJECT TRIGGER POINTS 3/> CPT-4: 59303 04/06/2016 TRIAMCINOLONE ACET INJ NOS CPT-4: J3301 04/06/2016 IMMUNIZATION ADMIN CPT- 4: 49736 03/30/2016 IIV4 FLU VACC NO PRESERV ID SNOMED CT: [id number] CPT-4: 92488 03/30/2016 TRIAMCINOLONE ACET INJ NOS CPT-4: J3301 02/28/2016 THER/PROPH/DIAG INJ SC/IM CPT-4: 41025 02/28/2016 TRIAMCINOLONE ACET INJ NOS CPT-4: J3301 [...] 1: 127 Code: 8480-6 BMI: 42.4 Code: 33062-3 Heart Rate 1: 78 bpm Height: 4'11" SpO2: 97% Weight: 210 lbs 03/26/2018 Blood Pressure 1: 128 Code: 8480-6 BMI: 43.0 Code: 97467-3 Heart Rate 1: 120 bpm Height: 4'11" SpO2: 97% Weight: 213 lbs 03/14/2018 Blood Pressure 1: 120 Code: 8480-6 BMI: 43.0 Code: 36398-8 Heart Rate 1: 114 bpm Height: 4'11" SpO2: 95% Weight: 213 lbs 03/07/2018 Blood Pressure 1: 13274 Code: 8480-6 BMI: 43.8 Code: 84723-2 Heart Rate 1: 123 bpm Height: 4'11" [...] 1: 134/86 Code: 8480-6 BMI: 45.4 Code: 29320-3 Heart Rate 1: 108 bpm Height: 4'11" SpO2: 95% Weight: 225 lbs 06/07/2017 Blood Pressure 1: 132/74 Code: 8480-6 Heart Rate 1: 99 bpm Height: 4'11" SpO2: 95% 04/24/2017 Blood Pressure 1: 132/8096 Code: 8480-6 BMI: 47.7 Code: 51697-7 Heart Rate 1: 96 bpm Height: 4'11" Weight: 236 lbs 01/09/2017 Blood Pressure 1: 122/74 Code: 8480-6 BMI: 46.0 Code: 69094-0 Heart Rate 1: 114 bpm Height: 4'11" SpO2: 98% Temperature: 37.1 (C) / 98.7 (F) Weight: 228 lbs 10/30/2016 Blood Pressure 1: 124 Code: 8480-6 BMI: 49.1 Code: 22714-7 Heart Rate 1: 90 bpm Height: 4'11" SpO2: 97% Weight: 243 lbs 10/09/2016 Blood Pressure 1: 124 Code: 8480-6 BMI: 49.3 Code: 91862-6 Heart Rate 1: 91 bpm Height: 4'11" SpO2: 98% Weight: 244 lbs 09/12/2016 Blood Pressure 1: 12880 Code: 8480-6 BMI: 49.1 Code: 40590-5 Heart Rate 1: 94 bpm Height: 4'11" SpO2: 95% Weight: 243 lbs 09/05/2016 Blood Pressure 1: 118 Code: 8480-6 BMI: 49.1 Code: 34365-3 Heart Rate 1: 100 bpm Height: 4'11" SpO2: 97% Weight: 243 lbs 06/16/2016 Blood Pressure 1: 120/62 Code: 8480-6 BMI: 49.1 Code: 70093-7 Heart Rate 1: 100 bpm Height: 4'11" SpO2: 96% Temperature: 36.7 (C) / 98.0 (F) Weight: 243 lbs 06/13/2016 Blood Pressure 1: 120/70 Code: 8480-6 Heart Rate 1: 117 bpm SpO2: 97% 05/19/2016 Blood Pressure 1: 130/64 Code: 8480-6 BMI: 49.1 Code: 09608-3 Heart Rate 1: 101 bpm Height: 4'11" SpO2: 96% Weight: 243 lbs 05/08/2016 Blood Pressure 1: 12876 Code: 8480-6 Heart Rate 1: 119 bpm Height: SpO2: 97% Weight: 05/05/2016 Blood Pressure 1: 124 Code: 8480-6 BMI: 49.1 Code: 32912-0 Heart Rate 1: 75 bpm Height: 4'11" SpO2: 99% Weight: 243 lbs 04/10/2016 Blood Pressure 1: 140/80 Code: 8480-6 BMI: 49.7 Code: 22802-7 Heart Rate 1: 88 bpm Height: 4'11" SpO2: 95% Weight: 246 lbs 04/06/2016 Blood Pressure 1: 134/82 Code: 8480-6 BMI: 75.1 Code: 58311-2 Heart Rate 1: 72 bpm Height: 4' SpO2: 96% Weight: 246 lbs 03/08/2016 Blood Pressure 1: 12672 Code: 8480-6 BMI: 49.7 Code: 86541-8 Heart Rate 1: 89 bpm Height: 4'11" SpO2: 97% Weight: 246 lbs 02/28/2016 Blood Pressure 1: 12468 Code: 8480-6 BMI: 49.7 Code: 56698-7 Heart Rate 1: 89 bpm Height: 4'11" SpO2: 96% Weight: 246 lbs 01/18/2016 Blood Pressure 1: 142/78 Code: 8480-6 BMI: 48.9 Code: 56913-1 Heart Rate 1: 97 bpm Height: 4'11" SpO2: 97% Weight: 242 lbs 12/23/2015 Blood Pressure 1: 124/74 Code: 8480-6 BMI: 48.9 Code: 26278-2 Heart Rate 1: 106 bpm Height: 4'11" SpO2: 96% Weight: 242 lbs 12/16/2015 Blood Pressure 1: 116/82 Code: 8480-6 BMI: 48.3 Code: 38865-2 Heart Rate 1: 111 bpm Height: 4'11" SpO2: 97% Weight: 239 lbs 11/11/2015 Blood Pressure 1: 130/80 Code: 8480-6 BMI: 49.7 Code: 49163-5 Heart Rate 1: 105 bpm Height: 4'11" SpO2: 96% Weight: 246 lbs 10/27/2015 Blood Pressure 1: 122/70 Code: 8480-6 BMI: 49.5 Code: 42471-8 Heart Rate 1: 107 bpm Height: 4'11" SpO2: 96% Weight: 245 lbs 10/13/2015 Blood Pressure 1: 140/82 Code: 8480-6 BMI: 50.9 Code: 61981-1 Heart Rate 1: 111 bpm Height: 4'11" SpO2: 96% Weight: 252 lbs 10/05/2015 Blood Pressure 1: 118/70 Code: 8480-6 BMI: 51.1 Code: 27842-3 Heart Rate 1: 120 bpm Height: 4'11" SpO2: 97% Weight: 253 lbs 09/01/2015 Blood Pressure 1: 132/82 Code: 8480-6 BMI: 50.1 Code: 16897-2 Heart Rate 1: 110 bpm Height: 4'11" SpO2: 96% Weight: 248 lbs 08/20/2015 Blood Pressure 1: 132/78 Code: 8480-6 BMI: 51.7 Code: 60620-5 Heart Rate 1: 100 bpm Height: 4'11" Weight: 256 lbs 08/03/2015 Blood Pressure 1: 148/92 Code: 8480-6 BMI: 52.1 Code: 61830-7 Heart Rate 1: 100 bpm Height: 4'11" [...] Diagnosis: Hidradenitis suppurativa[ICD10: L73.2] Gloria Hess MD, [facility] CPT- 4: 65702 07/22/2018 [id number] EST. PATIENT, LEVEL III Diagnosis: Hidradenitis suppurativa[ICD10: L73.2] Diagnosis: Encounter for other specified surgical aftercare[ICD10: Z48.89] Gloria Hess MD, [facility] CPT-4: 30063 07/18/2018 [id number] EST. PATIENT, LEVEL III Diagnosis: Cellulitis of right axilla[ICD10: L03.111] Diagnosis: Diarrhea, unspecified[ICD10: R19.7] Gloria Hess MD, [facility] CPT- 4: 61436 06/28/2018 ([id number]) 07830 EST. PATIENT, LEVEL II Diagnosis: Cellulitis of right axilla[ICD10: L03.111] Tamy Hess MD, [facility] CPT-4: 79864 06/17/2018 [id number] EST. PATIENT, LEVEL III Diagnosis: Cellulitis of right axilla[ICD10: L03.111] Diagnosis: Type 2 diabetes mellitus with hyperglycemia[ICD10: E11.65] Gloria Hess MD, [facility] CPT-4: 45000 06/05/2018 78207 EST. PATIENT, LEVEL III Diagnosis: Gastro-esophageal reflux disease without esophagitis[ICD10: K21.9] Diagnosis: Other allergic rhinitis[ICD10: J30.89] Diagnosis: Cough[ICD10: R05] Gloria Hess MD, [facility] CPT-4: 10442 03/26/2018 ([id number]) 11685 EST. PATIENT, LEVEL III Diagnosis: Cough[ICD10: R05] Gloria Hess MD, [facility] CPT-4: 47096 03/14/2018 46462 EST. PATIENT, LEVEL IV Diagnosis: Acute laryngopharyngitis[ICD10: J06.0] Diagnosis: Other allergic rhinitis[ICD10: J30.89] Diagnosis: Cough[ICD10: R05] Gloria Hess MD, [facility] CPT-4: 95152 03/07/2018 67415 EST. PATIENT, LEVEL IV Diagnosis: Acute bronchitis due to other specified organisms[ICD10: J20.8] Diagnosis: Acute laryngopharyngitis[ICD10: J06.0] Gloria Hess MD, [facility] CPT- 4: 80431 02/19/2018 69962 EST. PATIENT, LEVEL IV Diagnosis: Candidiasis of vulva and vagina[ICD10: B37.3] Diagnosis: Rash and other nonspecific skin eruption[ICD10: R21] Gloria Hess MD, [facility] CPT-4: 23582 01/08/2018 26012 EST. PATIENT, LEVEL III Diagnosis: Sacrococcygeal disorders, not elsewhere classified[ICD10: M53.3] Diagnosis: Low back pain[ICD10: M54.5] Gloria Hess MD, [facility] CPT-4: 53598 11/23/2017 02095 EST. PATIENT, LEVEL III Diagnosis: Acute laryngopharyngitis[ICD10: J06.0] Diagnosis: Other allergic rhinitis[ICD10: J30.89] Diagnosis: Acute bronchitis due to other specified organisms[ICD10: J20.8] Gloria Hess MD, [facility] CPT-4: 75008 09/05/2017 28675 EST. PATIENT, LEVEL III Diagnosis: Pain in left foot[ICD10: M79.672] Diagnosis: Rash and other nonspecific skin eruption[ICD10: R21] Diagnosis: Candidiasis of vulva and vagina[ICD10: B37.3] Diagnosis: Localized edema[ICD10: R60.0] Diagnosis: Dyspnea, unspecified[ICD10: R06.00] Gloria Hess MD, [facility] CPT- 4: 55996 06/07/2017 [id number] EST. PATIENT, LEVEL III Diagnosis: Low back pain[ICD10: M54.5] Diagnosis: Sacroiliitis, not elsewhere classified[ICD10: M46.1] Diagnosis: Pain in left foot[ICD10: M79.672] Diagnosis: VACCIN FOR INFLUENZA[ICD10: Z23] Gloria Hess MD, [facility] CPT-4: 37945 04/24/2017 87630 EST. PATIENT, LEVEL III Diagnosis: Acute suppurative otitis media without spontaneous rupture of ear drum, right ear[ICD10: H66.001] Diagnosis: Other allergic rhinitis[ICD10: J30.89] Gloria Hses MD, [facility] CPT- 4: 56935 01/09/2017 32097 EST. PATIENT, LEVEL IV Diagnosis: Candidiasis of vulva and vagina[ICD10: B37.3] Diagnosis: Type 2 diabetes mellitus with hyperglycemia[ICD10: E11.65] Gloria Hess MD, [facility] CPT-4: 98865 10/30/2016 07457 EST. PATIENT, LEVEL III Diagnosis: Candidiasis of vulva and vagina[ICD10: B37.3] Diagnosis: Type 2 diabetes mellitus with hyperglycemia[ICD10: E11.65] Gloria Hess MD, [facility] CPT-4: 47933 10/09/2016 60426 EST. PATIENT, LEVEL IV Diagnosis: Umbilical hernia without obstruction or gangrene[ICD10: K42.9] Gloria Hess MD, [facility] CPT-4: 31113 09/12/2016 51716 EST. PATIENT, LEVEL III Diagnosis: Epigastric pain[ICD10: R10.13] Diagnosis: Candidiasis of vulva and vagina[ICD10: B37.3] Diagnosis: Type 2 diabetes mellitus with hyperglycemia[ICD10: E11.65] Gloria Hess MD, [facility] CPT-4: 14754 09/05/2016 96611 EST. PATIENT, LEVEL III Diagnosis: Acute laryngopharyngitis[ICD10: J06.0] Diagnosis: Other allergic rhinitis[ICD10: J30.89] Gloria Hess MD, [facility] CPT- 4: 45321 06/16/2016 17110 EST. PATIENT, LEVEL III Diagnosis: Type 2 diabetes mellitus with hyperglycemia[ICD10: E11.65] Diagnosis: Other obesity due to excess calories[ICD10: E66.09] Gloria Hess MD, [facility] CPT-4: 97209 06/13/2016 50750 EST. PATIENT, LEVEL III Diagnosis: Type 2 diabetes mellitus with hyperglycemia[ICD10: E11.65] Diagnosis: Other obesity due to excess calories[ICD10: E66.09] Gloria Hess MD, [facility] CPT-4: 69243 05/19/2016 28534 EST. PATIENT, LEVEL III Diagnosis: Type 2 diabetes mellitus with hyperglycemia[ICD10: E11.65] Diagnosis: Other obesity due to excess calories[ICD10: E66.09] Gloria Hess MD, [facility] CPT-4: 36314 05/08/2016 62664 EST. PATIENT, LEVEL III Diagnosis: Type 2 diabetes mellitus without complications[ICD10: E11.9] Gloria Hess MD, [facility] CPT-4: 41518 05/05/2016 23500 EST. PATIENT, LEVEL III Diagnosis: Pain in right shoulder[ICD10: M25.511] Gloria Hess MD, [facility] CPT- 4: 37198 04/10/2016 68281 EST. PATIENT, LEVEL III Diagnosis: Pain in right shoulder[ICD10: M25.511] Diagnosis: Other muscle spasm[ICD10: M62.838] Diagnosis: Type 2 diabetes mellitus without complications[ICD10: E11.9] Gloria Hess MD, [facility] CPT-4: 61126 04/06/2016 71971 EST. PATIENT, LEVEL IV Diagnosis: Acute bronchitis due to other specified organisms[ICD10: J20.8] Diagnosis: Other acute sinusitis[ICD10: J01.80] Diagnosis: Acne vulgaris[ICD10: L70.0] Diagnosis: Morbid (severe) obesity due to excess calories[ICD10: E66.01] Gloria Hess MD, [facility] CPT-4: 19093 03/08/2016 26183 EST. PATIENT, LEVEL IV Diagnosis: Other acute sinusitis[ICD10: J01.80] Diagnosis: Localized enlarged lymph nodes[ICD10: R59.0] Gloria Hess MD, [facility] CPT-4: 40678 02/28/2016 61531 EST. PATIENT, LEVEL III Diagnosis: Type 2 diabetes mellitus without complications[ICD10: E11.9] Gloria Hess MD, [facility] CPT-4: 12359 01/18/2016 (57129) PREV VISIT EST AGE 40-64 Diagnosis: Encounter for gynecological examination (general) (routine) without abnormal findings[ICD10: Z01.419] Diagnosis: Excessive and frequent menstruation with irregular cycle[ICD10: N92.1] Gloria Hess MD, [facility] CPT-4: 28776 12/23/2015 04269 EST. PATIENT, LEVEL III Diagnosis: Type 2 diabetes mellitus without complications[ICD10: E11.9] Gloria Hess MD, [facility] CPT-4: 74318 12/16/2015 65478 EST. PATIENT, LEVEL III Diagnosis: Type 2 diabetes mellitus without complications[ICD10: E11.9] Diagnosis: Other obesity due to excess calories[ICD10: E66.09] Gloria Hess MD, [facility] CPT-4: 96161 11/11/2015 00163 EST. PATIENT, LEVEL III Diagnosis: Type 2 diabetes mellitus without complications[ICD10: E11.9] Diagnosis: Other obesity due to excess calories[ICD10: E66.09] Gloria Hess MD, [facility] CPT-4: 75283 10/27/2015 87090 EST. PATIENT, LEVEL III Diagnosis: Type 2 diabetes mellitus without complications[ICD10: E11.9] Diagnosis: Other obesity due to excess calories[ICD10: E66.09] Diagnosis: Other insomnia[ICD10: G47.09] Gloria Hess MD, [facility] CPT-4: 13117 10/13/2015 77421 EST. PATIENT, LEVEL IV Diagnosis: Acute recurrent maxillary sinusitis[ICD10: J01.01] Diagnosis: Allergic rhinitis due to pollen[ICD10: J30.1] Diagnosis: Other obesity due to excess calories[ICD10: E66.09] Gloria Hess MD, [facility] CPT-4: 37409 10/05/2015 47870 EST. PATIENT, LEVEL IV Diagnosis: Polycystic ovarian syndrome[ICD10: E28.2] Diagnosis: Other skin changes[ICD10: R23.8] Diagnosis: Other abnormal glucose[ICD10: R73.09] [facility] CPT- 4: 45924 09/01/2015 45607 EST. PATIENT, LEVEL IV Diagnosis: Acute recurrent maxillary sinusitis[ICD10: J01.01] Diagnosis: Morbid (severe) obesity due to excess calories[ICD10: E66.01] Diagnosis: Essential (primary) hypertension[ICD10: I10] Diagnosis: Allergic rhinitis due to pollen[ICD10: J30.1] [facility] CPT-4: 71063 08/20/2015 (44690) OFFICE VISIT, NEW - LEVEL 4 Diagnosis: Essential (primary) hypertension[ICD10: I10] Diagnosis: Obstructive sleep apnea (adult) (pediatric)[ICD10: G47.33] Diagnosis: Other insomnia[ICD10: G47.09] Diagnosis: Snoring[ICD10: R06.83] Diagnosis: Morbid (severe) obesity due to excess calories[ICD10: E66.01] [facility] CPT-4: 04116 08/03/2015 Plan of Care Planned Activity Notes Codes Status Date Visit Plan: incision - healing well - Wound Instructions - Pt was instructed to keep the wound clean, wash with antibacterial soap, use triple antibiotic ointment, call if redness, pustular drainage, or any other a cute concerns. Hidradenitis suppurativa - will refer to dermatology. 07/22/2018 Appointment: Gloria Scott WPtel: [facility]5 [facility] (30 min) Complex 07/22/2018 Patient Education: Patient Medication Summary Completed 07/22/2018 Visit Plan: Hidradenitis suppurativa - post incision - wound healing well - continue to monitor Wound Instructions - Pt was instructed to keep the wound clean, wash with antibacterial soap, use triple antibiotic oi ntment, call if redness, pustular drainage, or any other acute concerns. 07/18/2018 Appointment: Gloria Scott WPtel: [address] [place], [place] [phone] (30 min) Complex 07/18/2018 Patient Education: Patient Medication Summary Completed 07/18/2018 Referral: Roni Roberts pt will be notified by there office to schedule Initiated 07/03/2018 Care Plan: Referral Order SNOMED-CT : [id number] Pending 07/01/2018 Visit Plan: Abscess/Cellulitis - The [...] pain. 06/28/2018 Appointment: Gloria Scott WPtel: [facility] (30 min) Complex 06/28/2018 Patient Education: Patient Medication Summary Completed 06/28/2018 Visit Plan: Cellulitis-right jmsybb-iisrfiuv-dbv bactroban ointment until healed completely-call with any concerns 06/17/2018 Appointment: Tamy Lugo WPtel: [facility]4 [phone] (15 min) Moderate 06/17/2018 Patient Education: Patient [...] discharge. 06/05/2018 Appointment: Gloria Scott WPtel: [facility]3 [facility] (30 min) Complex 06/05/2018 Patient Education: Patient Medication Summary Completed 06/05/2018 Patient Education: Diabetes Completed 06/05/2018 Referral: Jesus Darby [facility] Referral Initiated 04/19/2018 Care Plan: Referral Order SNOMED-CT : [id number] Pending 03/27/2018 Visit Plan: Esophageal Reflux - [...] allergy spray. 03/26/2018 Appointment: Gloria Scott WPtel: [facility]5 [facility] (15 min) Moderate 03/26/2018 Patient Education: Patient Medication Summary Completed 03/26/2018 [facility]ment[phone] [facility] (15 min) Moderate 03/25/2018 Visit Plan: Skin [...] and bandaids. 03/14/2018 Appointment: Gloria Scott WPtel: [address] [place] [address] (15 min) Moderate 03/14/2018 Patient Education: Patient [...] not improve 03/07/2018 Appointment: Gloria Scott WPtel: [facility] (15 min) Moderate 03/07/2018 Patient Education: [...] acutely worsen. 02/19/2018 Appointment: Gloria Scott WPtel: [facility]0 [facility] (15 min) Moderate 02/19/2018 Patient Education: [...] warmth, discharge. 01/08/2018 Appointment: Gloria Scott WPtel: [facility] (30 min) Complex 01/08/2018 Patient Education: [...] acutely worsen. 09/05/2017 Appointment: Gloria Scott WPtel: [facility]1 [facility] (15 min) Moderate 09/05/2017 Patient Education: [...] send RX 06/07/2017 Appointment: Gloria Scott WPtel: [facility]5 [facility] [place] (15 min) Moderate 06/07/2017 Patient Education: [...] injection. 04/24/2017 Appointment: [phone] [facility] [place] (30 min) Complex 04/24/2017 Patient Education: Patient Medication Summary Completed 04/24/2017 Appointment: Gloria Scott WPtel: [phone] [facility] [place] (30 min) Complex 03/09/2017 Appointment: Gloria Scott WPtel: [address] [place], [place] [phone] [place] (30 min) Complex 02/13/2017 Visit Plan: [...] allergy spray. 01/09/2017 Appointment: Gloria Scott WPtel: [facility] [place] (10 min) Simple 01/09/2017 Patient Education: Patient Medication Summary Completed 01/09/2017 Patient Education: Obesity Completed 01/09/2017 Visit Plan: Vaginal candidiasis - will send RX - pt is to notify clinic if symptoms do not improve, if they worsen, or with any questions or concerns. Diabetes Mellitus - Uncontrolled - Will refer to auto clutch rebuilder - I have recommended for the patient [...] Mellitus - Uncontrolled - Will refer to auto clutch rebuilder - I have recommended for the patient [...] glucose control. 10/09/2016 Appointment: [facility] Scott [facility]Ptel[facility] [phone] [facility] (30 min) Complex 10/09/2016 Patient Education: Patient Medication Summary Completed 10/09/2016 Patient Education: Obesity Completed 10/09/2016 Referral: Roni Roberts Referral Completed 09/18/2016 Care Plan: CT ABD & PELV W/CONTRAST LOINC : 57988-0 Pending 09/13/2016 Care Plan: Referral Order SNOMED-CT : [id number] Pending 09/13/2016 Visit Plan: Ongoing abdominal pain/hernia - will send RX - will refer - pt is to notify clinic if symptoms do not improve, if they worsen, or with any questions or concerns. 09/12/2016 Appointment: Gloria Scott WPtel: [phone] [facility] (30 min) Complex 09/12/2016 Patient Education: Patient Medication Summary Completed 09/12/2016 Patient Education: Obesity Completed 09/12/2016 Care Plan: Referral Order SNOMED-CT : [id number] Pending 09/12/2016 Visit Plan: Ongoing abdominal/epigastric pain [...] control. 09/05/2016 Appointment: Gloria Scott WPtel: [phone] [facility] (30 min) Complex 09/05/2016 Patient Education: Patient [...] spray. 06/16/2016 Appointment: [facility]Ptel[facility] [phone] [facility] (10 min) Simple 06/16/2016 Patient Education: Patient [...] check. 06/13/2016 Appointment: Gloria Scott WPtel: [phone] [facility] (30 min) Complex 06/13/2016 Patient Education: Patient Medication Summary Completed 06/13/2016 Patient Education: Obesity Completed 06/13/2016 Appointment: Gloria Scott WPtel: [phone] [facility] (30 min) Complex 06/08/2016 Visit Plan: Diabetes [...] check. 05/19/2016 Appointment: Tamy Lugo WPtel: [phone] [phone] [place] (30 min) Complex 05/19/2016 Patient Education: [...] check. 05/08/2016 Appointment: Gloria Scott WPtel: [phone] [facility] (15 min) Moderate 05/08/2016 Patient Education: Patient [...] morning. 05/05/2016 Appointment: Tamy Lugo WPtel: [facility]5 [phone] (15 min) Moderate 05/05/2016 Patient Education: Patient Medication Summary Completed 05/05/2016 Patient Education: Obesity Completed 05/05/2016 Care Plan: Comp Metabolic Pending 05/05/2016 Appointment: Jocelyn Hess WPtel: [facility]5 [facility] Surgical Procedure 04/17/2016 Appointment: Injection 04/13/2016 Patient Education: Patient Medication Summary Completed 04/13/2016 Visit Plan: Right shoulder pain - will refer to PT - The pt is to use prn antiinflammatories to manage acute pain. The patient is to call the office if the pain is worsening or does not improve. 04/10/2016 Appointment: Gloria Scott WPtel: [facility]5 [facility] (30 min) Complex 04/10/2016 Patient Education: Patient [...] control. 04/06/2016 Appointment: [facility]Ptel[facility] [phone] [facility] (15 min) Moderate 04/06/2016 Patient Education: Patient [...] [place] 02/28/2016 Appointment: Gloria Scott WPtel: [phone] [facility] (30 min) Complex 02/28/2016 Patient Education: Patient Medication Summary Completed 02/28/2016 Patient Education: Obesity Completed 02/28/2016 Appointment: [facility]Ptel[facility] [phone] [facility] (15 min) Moderate 01/31/2016 Visit Plan: Diabetes [...] prn. 12/23/2015 Appointment: [facility]Ptel[facility] [phone] [facility] [facility] 12/23/2015 Patient Education: Patient Medication [...] IN THE LAB. [facility] : [address]-6 Pending 08/13/2015 Visit Plan: Hypertension - uncontrolled [...] Referral: Roni Roberts [facility] Referral Initiated Referral: Roni Roberts Referral Initiated Referral: Roni Roberts Referral Initiated Instructions Comment . Vaginal candidiasis - will send RX - pt is to notify clinic if symptoms do not improve, if they worsen, or with any questions or concerns. Diabetes Mellitus - Uncontrolled - Will refer to auto clutch rebuilder - I have recommended for the patient [...] Mellitus - Uncontrolled - Will refer to auto clutch rebuilder - I have recommended for the patient [...] with any questions or concerns. . Cellulitis-right hpmjfp-fumdmafu-osf bactroban ointment until healed completely-call with any [...]
--- OUTSIDE RECORDS SUMMARY | 2018-12-17 03:49 | XMS REPORT | CCD ---
Author Author Gloria Scott MD, [facility] Address [address] [place] [address] Phone Care Team Providers Care Stock Feeder Name Role Phone PP Unavailable CCM Unavailable Summary Purpose Interface Exchange Insurance Providers Payer name Policy type / Coverage type Covered republican ID Effective Begin Date Effective End Date [facility] Commercial Insurance [id number] Unknown Unknown Family history Father Diagnosis Age At Onset Hypertension Unknown Arthritis Unknown Mother Diagnosis Age At Onset Arthritis Unknown Hyperlipidemia Unknown Daughter Diagnosis Age At Onset Asthma Unknown Social History Social History Element Codes Description Effective Dates Marital status Unknown Darin 08/03/2015 Number of children Unknown 1 08/03/[address]: 6192605 Quit less than 5 years ago 08/03/2015 [...] Instructions mupirocin 2 % topical ointment RxNorm: 601090 1 Application TOP daily 07/22/2018 07/28/2018 Active ibuprofen 800 mg tablet RxNorm: 206620 1 Tablet(s) PO TID as needed for pain 07/22/2018 07/31/2018 Active hydrocodone 7.5 mg-acetaminophen 325 mg tablet RxNorm: 355902 1 Tablet(s) PO Q4H as needed 07/18/2018 08/16/2018 Active promethazine 25 mg tablet RxNorm: 721516 TABLET(S) TAKE ONE TABLET BY MOUTH EVERY 6 TO 8 HOURS NEEDED 07/05/2018 No Stop Date Active hyoscyamine 0.125 mg sublingual tablet RxNorm: 4507320 1 Tablet(s) SL TID as needed diarrhea 06/28/2018 07/07/2018 Inactive mupirocin 2 % topical ointment RxNorm: 840233 1 Application TOP BID 06/17/2018 06/26/2018 Inactive mupirocin 2 % topical ointment RxNorm: 820087 1 Application TOP BID 06/05/2018 No Stop Date Active Keflex 500 mg capsule RxNorm: 076286 1 Capsule(s) PO TID 06/05/2018 06/11/2018 Inactive ceftriaxone 500 mg solution for injection RxNorm: 3202665 Inj 06/05/2018 06/05/2018 Inactive Diflucan 150 mg tablet RxNorm: 646571 1 Tablet(s) PO daily 06/05/2018 07/02/2018 Inactive Protonix 40 mg tablet,delayed release RxNorm: 770842 1 Tablet(s) PO BID x 1 week then daily 03/26/2018 No Stop Date Active Phenergan with Codeine Syrup RxNorm: 5-10 ML PO QID as needed cough 03/19/2018 No Stop Date Active promethazine 25 mg tablet RxNorm: 010294 Tablet(s) TAKE ONE TABLET BY MOUTH EVERY 6 TO 8 HOURS NEEDED 03/15/2018 07/04/2018 Inactive Singulair 10 mg tablet RxNorm: 554557 1 Tablet(s) PO daily 03/14/2018 04/12/2018 Inactive metoprolol succinate ER 100 mg tablet,extended release 24 hr RxNorm: 872132 1 Tablet(s) PO daily 03/07/2018 04/05/2018 Inactive Zithromax Z-Rashid 250 mg tablet RxNorm: 152595 1 Tablet(s) PO UD 03/07/2018 03/07/2018 Inactive prednisone 20 mg tablet RxNorm: 384031 2 Tablet(s) PO daily 03/07/2018 03/11/2018 Inactive albuterol sulfate 2.5 mg/3 mL (0.083 %) solution for nebulization RxNorm: 449849 3 Milliliter(s) INH Q4-6H as needed dyspnea 02/19/2018 No Stop Date Active Diflucan 150 mg tablet RxNorm: 650833 Tablet(s) TAKE ONE TABLET BY MOUTH ONCE DAILY FOR 7 DAYS THEN TAKE ONE TABLET BY MOUTH ONCE A WEEK 02/19/2018 06/04/2018 Inactive Levaquin 500 mg tablet RxNorm: 566355 1 Tablet(s) PO daily 02/19/2018 02/25/2018 Inactive prednisone 20 mg tablet RxNorm: 158073 2 Tablet(s) PO daily 02/19/2018 02/23/2018 Inactive Kenalog 40 mg/mL suspension for injection RxNorm: 7503333 15. Milliliter(s) Inj 02/19/2018 02/19/2018 Inactive hydrocodone 7.5 mg-acetaminophen 325 mg tablet RxNorm: 800773 1 Tablet(s) PO Q4H as needed 02/05/2018 03/06/2018 Inactive clindamycin HCl 300 mg capsule RxNorm: 554520 1 Capsule(s) PO TID 01/09/2018 01/15/2018 Inactive promethazine 25 mg tablet RxNorm: 365648 Tablet(s) TAKE ONE TABLET BY MOUTH EVERY 6 TO 8 HOURS NEEDED 01/08/2018 03/14/2018 Inactive Diflucan 150 mg tablet RxNorm: 716822 Tablet(s) TAKE ONE TABLET BY MOUTH ONCE DAILY FOR 7 DAYS THEN TAKE ONE TABLET BY MOUTH ONCE A WEEK 01/08/2018 02/18/2018 Inactive Bactrim DS 800 mg-160 mg tablet RxNorm: 857006 1 Tablet(s) PO BID 01/08/2018 01/17/2018 Inactive prednisone 20 mg tablet RxNorm: 365777 2 Tablet(s) PO daily 11/23/2017 11/27/2017 Inactive Zithromax Z-Rashid 250 mg tablet RxNorm: 054438 1 Tablet(s) PO UD 09/05/2017 02/11/2018 Inactive Kenalog 40 mg/mL suspension for injection RxNorm: 0032114 Milliliter(s) Inj 09/05/2017 09/05/2017 Inactive prednisone 20 mg tablet RxNorm: 598315 2 Tablet(s) PO daily 09/05/2017 09/09/2017 Inactive ibuprofen 800 mg tablet RxNorm: 700726 1 Tablet(s) PO TID 07/27/2017 02/21/2018 Inactive metoprolol succinate ER 100 mg tablet,extended release 24 hr RxNorm: 085805 TAKE ONE TABLET BY MOUTH ONCE DAILY 06/20/2017 No Stop Date Active alprazolam 0.5 mg tablet RxNorm: 011560 1 Tablet(s) PO Q8 as needed 06/20/2017 07/09/2017 Inactive Zithromax Z-Rashid 250 mg tablet RxNorm: 352358 1 Tablet(s) PO UD 06/15/2017 07/25/2017 Inactive Xopenex HFA 45 mcg/actuation aerosol inhaler RxNorm: 763171 INHALE ONE PUFF INTO LUNGS NEEDED 06/13/2017 07/14/2017 Inactive Xopenex 1.25 mg/3 mL solution for nebulization RxNorm: 266072 Milliliter(s) USE ONE VIAL IN NEBULIZER THREE TIMES DAILY 06/08/2017 No Stop Date Active Flovent HFA 44 mcg/actuation aerosol inhaler RxNorm: 702218 2 Puff(s) INH BID 06/08/2017 No Stop Date Active potassium chloride ER 10 mEq tablet,extended release RxNorm: 677569 1 Tablet(s) PO daily 06/08/2017 06/10/2017 Inactive Lasix 20 mg tablet RxNorm: 530893 1 Tablet(s) PO daily 06/08/2017 06/10/2017 Inactive Xopenex HFA 45 mcg/actuation aerosol inhaler RxNorm: 180828 INHALE ONE PUFF INTO LUNGS NEEDED 06/08/2017 06/12/2017 Inactive triamcinolone acetonide 0.025 % topical cream RxNorm: 8670630 1 Application TOP BID 06/07/2017 No Stop Date Active ibuprofen 800 mg tablet RxNorm: 554935 1 Tablet(s) PO TID 06/07/2017 07/06/2017 Inactive cyclobenzaprine 5 mg tablet RxNorm: 050556 1/2 Tablet(s) PO TID as needed muscle spasms 05/28/2017 06/01/2017 Inactive Diflucan 150 mg tablet RxNorm: 119153 TAKE ONE TABLET BY MOUTH ONCE DAILY FOR 7 DAYS THEN TAKE ONE TABLET BY MOUTH ONCE A WEEK 05/28/2017 01/07/2018 Inactive bumetanide 1 mg tablet RxNorm: 912452 TAKE ONE TABLET BY MOUTH TWICE DAILY 05/25/2017 No Stop Date Active meloxicam 7.5 mg tablet RxNorm: 382446 1 Tablet(s) PO daily as needed 05/25/2017 07/23/2017 Inactive Xopenex 1.25 mg/3 mL solution for nebulization RxNorm: 614163 USE ONE VIAL IN NEBULIZER THREE TIMES DAILY 05/25/2017 06/07/2017 Inactive Protonix 40 mg tablet,delayed release RxNorm: 928055 1 Tablet(s) PO daily 05/08/2017 11/03/2017 Inactive Protonix 40 mg tablet,delayed release RxNorm: 026736 1 Tablet(s) PO daily 05/04/2017 05/03/2017 Inactive Protonix 40 mg tablet,delayed release RxNorm: 407067 1 Tablet(s) PO daily 05/04/2017 05/07/2017 Inactive meloxicam 7.5 mg tablet RxNorm: 972047 1 Tablet(s) PO daily as needed 04/25/2017 04/24/2017 Inactive meloxicam 7.5 mg tablet RxNorm: 721595 1 Tablet(s) PO daily as needed 04/25/2017 05/04/2017 Inactive promethazine 25 mg tablet RxNorm: 354431 TAKE ONE TABLET BY MOUTH EVERY 6 TO 8 HOURS NEEDED 04/25/2017 01/07/2018 Inactive Kenalog 40 mg/mL suspension for injection RxNorm: 6546814 1 Milliliter(s) Inj 04/24/2017 04/24/2017 Inactive cyclobenzaprine 5 mg tablet RxNorm: 034523 1/2 Tablet(s) PO TID as needed muscle spasms 04/24/2017 04/28/2017 Inactive Xopenex HFA 45 mcg/actuation aerosol inhaler RxNorm: 560499 INHALE ONE PUFF INTO LUNGS NEEDED 03/30/2017 04/14/2017 Inactive Humalog KwikPen 200 unit/mL (3 mL) subcutaneous RxNorm: 3397798 INJECT 35 UNITS SUBCUTANEOUSLY BEFORE MEAL(S) 03/30/2017 06/05/2017 Inactive promethazine 25 mg tablet RxNorm: 640597 Tablet(s) TAKE ONE TABLET BY MOUTH EVERY 6 TO 8 HOURS NEEDED 03/12/2017 03/26/2017 Inactive cyclobenzaprine 10 mg tablet RxNorm: 847995 TAKE ONE TABLET BY MOUTH ONCE DAILY NEEDED 03/06/2017 03/15/2017 Inactive lidocaine 5 % topical patch RxNorm: 6421407 USE ONE PATCH TOPICALLY DAILY. 12 HOURS ON AND THEN 12 HOURS OFF. 03/06/2017 03/15/2017 Inactive Humalog KwikPen 200 unit/mL (3 mL) subcutaneous RxNorm: 8645111 INJECT 35 UNITS SUBCUTANEOUSLY BEFORE MEAL(S) 02/20/2017 03/25/2017 Inactive promethazine 25 mg tablet RxNorm: 209302 Tablet(s) TAKE ONE TABLET BY MOUTH EVERY 6 TO 8 HOURS NEEDED 02/20/2017 03/06/2017 Inactive Xopenex HFA 45 mcg/actuation aerosol inhaler RxNorm: 473909 INHALE ONE PUFF INTO LUNGS NEEDED 02/20/2017 03/07/2017 Inactive bumetanide 1 mg tablet RxNorm: 010913 TAKE ONE TABLET BY MOUTH TWICE DAILY 02/15/2017 05/15/2017 Inactive bumetanide 1 mg tablet RxNorm: 348011 TAKE ONE TABLET BY MOUTH TWICE DAILY 01/15/2017 02/13/2017 Inactive metoprolol succinate ER 100 mg tablet,extended release 24 hr RxNorm: 149077 TAKE ONE TABLET BY MOUTH ONCE DAILY 01/11/2017 06/19/2017 Inactive Zithromax Z-Rashid 250 mg tablet RxNorm: 359008 1 Tablet(s) PO UD 01/09/2017 03/13/2017 Inactive meclizine 25 mg tablet RxNorm: 948780 1 Tablet(s) PO TID as needed 01/09/2017 01/18/2017 Inactive Kenalog 40 mg/mL suspension for injection RxNorm: 8050988 Milliliter(s) Inj 01/09/2017 01/09/2017 Inactive promethazine 25 mg tablet RxNorm: 011013 Tablet(s) TAKE ONE TABLET BY MOUTH EVERY 6 TO 8 HOURS NEEDED 12/29/2016 01/12/2017 Inactive Voltaren 1 % topical gel RxNorm: 443693 APPLY TOPICALLY TO AFFECTED AREA TWICE DAILY 12/25/2016 01/13/2017 Inactive cyclobenzaprine 10 mg tablet RxNorm: 793221 TAKE ONE TABLET BY MOUTH NEEDED 12/22/2016 12/31/2016 Inactive lidocaine 5 % topical patch RxNorm: 4747373 USE ONE PATCH TOPICALLY DAILY. 12 HOURS ON AND THEN 12 HOURS OFF. 12/22/2016 12/31/2016 Inactive hydrocodone 7.5 mg-acetaminophen 325 mg tablet RxNorm: 003222 1 Tablet(s) PO Q4H as needed 12/22/2016 01/20/2017 Inactive bumetanide 1 mg tablet RxNorm: 003534 TAKE ONE TABLET BY MOUTH TWICE DAILY 12/17/2016 01/14/2017 Inactive promethazine 25 mg tablet RxNorm: 822296 Tablet(s) TAKE ONE TABLET BY MOUTH EVERY 6 TO 8 HOURS NEEDED 11/16/2016 12/15/2016 Inactive spironolactone 50 mg tablet RxNorm: 173719 TAKE ONE TABLET BY MOUTH TWICE DAILY 11/15/2016 05/13/2017 Inactive Basaglar KwikPen 100 unit/mL (3 mL) subcutaneous RxNorm: 4807855 Unit(s) INJECT 35 UNITS IN THE MORNING AND 50 UNITS IN THE EVENING SUBCUTANEOUSLY 11/15/2016 03/14/2017 Inactive cyclobenzaprine 10 mg tablet RxNorm: 984303 TAKE ONE TABLET BY MOUTH NEEDED 11/15/2016 12/04/2016 Inactive lidocaine 5 % topical patch RxNorm: 8722950 1 Patch TOP daily . 12 HOURS ON, 12 HOURS OFF 11/15/2016 12/04/2016 Inactive lidocaine 4 % topical patch RxNorm: 7925556 1 Patch TOP on for 12 hours and off for 12 hours 11/14/2016 11/14/2016 Inactive promethazine 25 mg tablet RxNorm: 745667 TAKE ONE TABLET BY MOUTH EVERY 6 TO 8 HOURS NEEDED 11/14/2016 11/15/2016 Inactive Basaglar KwikPen 100 unit/mL (3 mL) subcutaneous RxNorm: 2669191 INJECT 35 UNITS IN THE MORNING AND 50 UNITS IN THE EVENING SUBCUTANEOUSLY 11/14/2016 11/14/2016 Inactive cyclobenzaprine 10 mg tablet RxNorm: 651266 TAKE ONE TABLET BY MOUTH NEEDED 11/14/2016 11/14/2016 Inactive spironolactone 50 mg tablet RxNorm: 056014 TAKE ONE TABLET BY MOUTH TWICE DAILY 11/14/2016 11/14/2016 Inactive Diflucan 150 mg tablet RxNorm: 507213 1 Tablet(s) PO as needed prophylactic after sexual intercourse 10/30/2016 No Stop Date Active hydrocodone 7.5 mg-acetaminophen 325 mg tablet RxNorm: 125996 1 Tablet(s) PO Q4H as needed 10/30/2016 11/28/2016 Inactive clotrimazole 100 mg vaginal tablet RxNorm: 567669 1 Tablet(s) VAG QW 10/30/2016 11/28/2016 Inactive Humalog KwikPen 200 unit/mL (3 mL) subcutaneous RxNorm: 0633812 35 Unit(s) SQ AC 10/30/2016 02/19/2017 Inactive QS 30 day supply Bydureon 2 mg/0.65 mL subcutaneous pen injector RxNorm: 4577505 2 Milligram(s) SQ QW 10/30/2016 11/28/2016 Inactive Basaglar KwikPen 100 unit/mL (3 mL) subcutaneous RxNorm: 1133550 Unit(s) SQ 35 units in the morning and 50 units in the evening 10/30/2016 11/13/2016 Inactive QS 30 day supply cyclobenzaprine 10 mg tablet RxNorm: 881056 TAKE ONE TABLET BY MOUTH NEEDED 10/27/2016 11/05/2016 Inactive Diflucan 150 mg tablet RxNorm: 229363 1 Tablet(s) PO daily x 7 days then once a week 10/27/2016 10/29/2016 Inactive promethazine 25 mg tablet RxNorm: 627480 TAKE ONE TABLET BY MOUTH EVERY 6 TO 8 HOURS NEEDED 10/27/2016 11/10/2016 Inactive Diflucan 150 mg tablet RxNorm: 901686 1 Tablet(s) PO daily x 7 days then once a week 10/09/2016 10/15/2016 Inactive Diflucan 150 mg tablet RxNorm: 380840 1 Tablet(s) PO daily 09/20/2016 09/26/2016 Inactive Cipro 500 mg tablet RxNorm: 844937 1 Tablet(s) PO BID 09/12/2016 09/21/2016 Inactive Flagyl 500 mg tablet RxNorm: 180586 1 Tablet(s) PO TID 09/12/2016 09/21/2016 Inactive Diflucan 150 mg tablet RxNorm: 174834 1 Tablet(s) PO daily 09/06/2016 09/12/2016 Inactive hydrocodone 7.5 mg-acetaminophen 325 mg tablet RxNorm: 875580 1 Tablet(s) PO Q4H as needed 07/12/2016 08/10/2016 Inactive Xopenex 1.25 mg/3 mL solution for nebulization RxNorm: 741163 3 Milliliter(s) INH TID 06/16/2016 05/24/2017 Inactive cefdinir 300 mg capsule RxNorm: 349512 1 Capsule(s) PO BID 06/16/2016 06/25/2016 Inactive Mobic 7.5 mg tablet RxNorm: 951650 1 Tablet(s) PO daily 06/16/2016 06/25/2016 Inactive Levaquin 500 mg tablet RxNorm: 074549 1 Tablet(s) PO daily 06/16/2016 06/22/2016 Inactive cyclobenzaprine 10 mg tablet RxNorm: 687068 1 Tablet(s) PO PRN as needed 06/14/2016 06/23/2016 Inactive promethazine 25 mg tablet RxNorm: 817728 TAKE ONE TABLET BY MOUTH EVERY 6 TO 8 HOURS NEEDED 06/14/2016 06/28/2016 Inactive Xopenex HFA 45 mcg/actuation aerosol inhaler RxNorm: 815957 1 Puff(s) INH PRN 06/14/2016 07/15/2016 Inactive pen needle, diabetic 32 gauge x 5/16" RxNorm: 1 use Miscellaneous AC & HS 06/13/2016 No Stop Date Active QS 30 day supply Humalog KwikPen 200 unit/mL (3 mL) subcutaneous RxNorm: 0633740 10 Unit(s) SQ AC 06/13/2016 10/29/2016 Inactive QS 30 day supply Basaglar KwikPen 100 unit/mL (3 mL) subcutaneous RxNorm: 2282156 22 units in the morning and 35 in the evening. Unit(s) SQ 06/13/2016 10/29/2016 Inactive QS 30 day supply Tivorbex 20 mg capsule RxNorm: 9067046 1 Capsule(s) PO TID as needed 06/13/2016 06/13/2016 Inactive metoprolol succinate ER 100 mg tablet,extended release 24 hr RxNorm: 440324 TAKE ONE TABLET BY MOUTH ONCE DAILY 06/13/2016 10/10/2016 Inactive hydrocodone 7.5 mg-acetaminophen 325 mg tablet RxNorm: 197742 1 Tablet(s) PO Q4H as needed 06/13/2016 07/11/2016 Inactive Voltaren 1 % topical gel RxNorm: 481644 APPLY TOPICALLY TO AFFECTED AREA TWICE DAILY 05/30/2016 07/08/2016 Inactive alprazolam 0.5 mg tablet RxNorm: 827693 1 Tablet(s) PO Q8 as needed 05/19/2016 No Stop Date Active cyclobenzaprine 10 mg tablet RxNorm: 646756 1 Tablet(s) PO PRN as needed 05/19/2016 05/28/2016 Inactive bumetanide 1 mg tablet RxNorm: 759604 TAKE ONE TABLET BY MOUTH TWICE DAILY 05/19/2016 06/17/2016 Inactive Sprintec (28) 0.25 mg-35 mcg tablet RxNorm: 070326 1 Tablet(s) PO UD 05/08/2016 No Stop Date Active Lantus Solostar 100 unit/mL (3 mL) subcutaneous insulin pen RxNorm: 897008 Unit(s) SQ UD 15units qam 30 units qhs 05/08/2016 No Stop Date Active Humalog KwikPen 200 unit/mL (3 mL) subcutaneous RxNorm: 0156370 10 Unit(s) SQ AC 05/08/2016 06/12/2016 Inactive bumetanide 1 mg tablet RxNorm: 184856 TAKE ONE TABLET BY MOUTH TWICE DAILY 04/28/2016 05/18/2016 Inactive Voltaren 1 % topical gel RxNorm: 184060 1 Application TOP BID 04/28/2016 05/07/2016 Inactive cyclobenzaprine 10 mg tablet RxNorm: 997774 1 Tablet(s) PO PRN as needed 04/28/2016 05/07/2016 Inactive hydrocodone 7.5 mg-acetaminophen 325 mg tablet RxNorm: 677378 1 Tablet(s) PO Q4H as needed 04/18/2016 05/16/2016 Inactive Lantus Solostar 100 unit/mL (3 mL) subcutaneous insulin pen RxNorm: 286751 Unit(s) SQ UD 10 units QHS x5 days, if sugars are over 200 increase to 15 units x 5 days, if sugars over 200 increase to 20 units. 04/14/2016 05/07/2016 Inactive lidocaine 4 % topical patch RxNorm: 7427123 1 Patch TOP on for 12 hours and off for 12 hours 04/13/2016 11/13/2016 Inactive Voltaren 1 % topical gel RxNorm: 170825 1 Application TOP BID 04/10/2016 04/27/2016 Inactive metformin ER 500 mg 24 hr tablet,extended release RxNorm: 099876 1 Tablet(s) PO daily 04/06/2016 05/05/2016 Inactive Kenalog 40 mg/mL suspension for injection RxNorm: 6906860 1 Milliliter(s) Inj 04/06/2016 04/06/2016 Inactive cyclobenzaprine 10 mg tablet RxNorm: 819914 1 Tablet(s) PO PRN as needed 04/06/2016 04/27/2016 Inactive WelChol 3.75 gram oral powder packet RxNorm: 220743 1 packet PO daily 04/06/2016 07/04/2016 Inactive alprazolam 0.5 mg tablet RxNorm: 018776 1 Tablet(s) PO Q8 as needed 03/30/2016 06/19/2017 Inactive Levaquin 500 mg tablet RxNorm: 415011 1 Tablet(s) PO daily 03/30/2016 04/05/2016 Inactive metoprolol succinate ER 100 mg tablet,extended release 24 hr RxNorm: 890043 TAKE ONE TABLET BY MOUTH ONCE DAILY 03/16/2016 06/12/2016 Inactive Levaquin 500 mg tablet RxNorm: 963456 1 Tablet(s) PO daily 03/08/2016 03/14/2016 Inactive prednisone 20 mg tablet RxNorm: 381731 2 Tablet(s) PO daily 03/08/2016 03/12/2016 Inactive Xopenex HFA 45 mcg/actuation aerosol inhaler RxNorm: 531121 1 Puff(s) INH PRN 02/28/2016 06/13/2016 Inactive Phenergan with Codeine Syrup RxNorm: 5-10 ML PO QID as needed cough 02/28/2016 03/18/2018 Inactive Kenalog 40 mg/mL suspension for injection RxNorm: 6723015 1 Milliliter(s) Inj 02/28/2016 02/28/2016 Inactive Zithromax Z-Rashid 250 mg tablet RxNorm: 808412 1 Tablet(s) PO UD 02/28/2016 03/27/2016 Inactive alprazolam 0.5 mg tablet RxNorm: 603685 1 Tablet(s) PO Q8 as needed 02/24/2016 06/19/2017 Inactive glipizide 5 mg tablet RxNorm: 213353 1 Tablet(s) PO daily 01/18/2016 05/16/2016 Inactive Actos 15 mg tablet RxNorm: 337501 1 Tablet(s) PO daily 01/18/2016 02/16/2016 Inactive gabapentin 100 mg capsule RxNorm: 164893 1 Capsule(s) PO QHS 01/13/2016 03/12/2016 Inactive gabapentin 100 mg capsule RxNorm: 405391 1 Capsule(s) PO QHS 01/13/2016 01/12/2016 Inactive Bydureon 2 mg/0.65 mL subcutaneous pen injector RxNorm: 0502313 1 Milliliter(s) SQ QW 01/12/2016 01/11/2016 Inactive Bydureon 2 mg/0.65 mL subcutaneous pen injector RxNorm: 0884740 2/0.65ml Milligram(s) SQ QW 01/12/2016 05/16/2016 Inactive Bydureon 2 mg/0.65 mL subcutaneous pen injector RxNorm: 9871507 1 Milliliter(s) SQ QW 01/12/2016 01/11/2016 Inactive bumetanide 1 mg tablet RxNorm: 770678 TAKE ONE TABLET BY MOUTH TWICE DAILY 01/10/2016 04/08/2016 Inactive promethazine 25 mg tablet RxNorm: 522710 Tablet(s) Tablet(s) 1 Tablet(s) PO Q6-8H as needed 12/16/2015 04/13/2016 Inactive promethazine 25 mg tablet RxNorm: 347908 Tablet(s) 1 Tablet(s) PO Q6-8H as needed 12/10/2015 12/15/2015 Inactive Trulicity 0.75 mg/0.5 mL subcutaneous pen injector RxNorm: 0105212 INJECT ONE-HALF ML SUBCUTANEOUSLY ONCE A WEEK 12/10/2015 01/11/2016 Inactive glipizide 5 mg tablet RxNorm: 549534 1 Tablet(s) PO daily 12/10/2015 01/17/2016 Inactive bumetanide 1 mg tablet RxNorm: 889263 TAKE ONE TABLET BY MOUTH TWICE DAILY 12/10/2015 01/08/2016 Inactive promethazine 25 mg tablet RxNorm: 268161 Tablet(s) 1 Tablet(s) PO Q6-8H as needed 11/18/2015 12/09/2015 Inactive promethazine 25 mg tablet RxNorm: 850214 1 Tablet(s) PO Q6-8H as needed 11/16/2015 11/17/2015 Inactive glipizide 5 mg tablet RxNorm: 467310 1/2 Tablet(s) PO daily 11/16/2015 12/15/2015 Inactive promethazine 25 mg tablet RxNorm: 946425 Tablet(s) 1 Tablet(s) PO Q6-8H as needed 11/11/2015 12/10/2015 Inactive metoprolol tartrate 50 mg tablet RxNorm: 766714 1 Tablet(s) PO BID 11/11/2015 02/08/2016 Inactive Trulicity 0.75 mg/0.5 mL subcutaneous pen injector RxNorm: 1142690 .5 Milliliter(s) SQ QW 11/11/2015 01/11/2016 Inactive promethazine 25 mg tablet RxNorm: 256360 1 Tablet(s) PO Q6-8H as needed 10/28/2015 11/10/2015 Inactive nystatin 100,000 unit/gram topical cream RxNorm: 299245 1 Gram(s) TOP BID 10/27/2015 No Stop Date Active alprazolam 0.5 mg tablet RxNorm: 630974 1 Tablet(s) PO Q8 as needed 10/27/2015 03/29/2016 Inactive hydrocodone 7.5 mg-acetaminophen 325 mg tablet RxNorm: 431369 1 Tablet(s) PO Q4H as needed 10/27/2015 11/25/2015 Inactive Trulicity 0.75 mg/0.5 mL subcutaneous pen injector RxNorm: 6244813 .5 Milliliter(s) SQ QW 10/27/2015 11/10/2015 Inactive glipizide 5 mg tablet RxNorm: 257440 1 Tablet(s) PO daily 10/27/2015 11/25/2015 Inactive hydrocodone 7.5 mg-acetaminophen 325 mg tablet RxNorm: 359476 1 Tablet(s) PO Q4H as needed 10/26/2015 10/26/2015 Inactive alprazolam 0.5 mg tablet RxNorm: 346329 1 Tablet(s) PO PRN as needed 10/26/2015 10/26/2015 Inactive promethazine 25 mg tablet RxNorm: 976410 1 Tablet(s) PO Q6-8H as needed 10/26/2015 11/15/2015 Inactive glipizide 5 mg tablet RxNorm: 736297 1/2 Tablet(s) PO daily 10/13/2015 10/26/2015 Inactive cefdinir 300 mg capsule RxNorm: 832026 1 Capsule(s) PO BID 10/05/2015 10/14/2015 Inactive prednisone 20 mg tablet RxNorm: 753961 2 Tablet(s) PO daily 10/05/2015 10/09/2015 Inactive Diflucan 150 mg tablet RxNorm: 294138 1 Tablet(s) PO daily 10/05/2015 10/11/2015 Inactive Invokamet 50 mg-500 mg tablet RxNorm: 0920389 1 Tablet(s) PO daily 10/05/2015 11/03/2015 Inactive alprazolam 0.5 mg tablet RxNorm: 702867 1 Tablet(s) PO PRN as needed 10/01/2015 02/23/2016 Inactive promethazine 25 mg tablet RxNorm: 447461 1 Tablet(s) PO Q6-8H as needed 09/30/2015 10/25/2015 Inactive bumetanide 1 mg tablet RxNorm: 660241 TAKE ONE TABLET BY MOUTH TWICE DAILY 09/30/2015 10/29/2015 Inactive bumetanide 1 mg tablet RxNorm: 372069 TAKE ONE TABLET BY MOUTH TWICE DAILY 09/20/2015 12/18/2015 Inactive bumetanide 1 mg tablet RxNorm: 400334 1 Tablet(s) PO BID 09/20/2015 10/19/2015 Inactive metoprolol succinate ER 100 mg tablet,extended release 24 hr RxNorm: 743759 1 Tablet(s) PO daily 09/16/2015 03/13/2016 Inactive spironolactone 50 mg tablet RxNorm: 512265 1 Tablet(s) PO BID 09/16/2015 03/13/2016 Inactive alprazolam 0.5 mg tablet RxNorm: 004711 1 Tablet(s) PO PRN as needed 09/16/2015 10/25/2015 Inactive hydrocodone 7.5 mg-acetaminophen 325 mg tablet RxNorm: 450569 1 Tablet(s) PO Q4H as needed 09/16/2015 10/25/2015 Inactive Invokamet 50 mg-1,000 mg tablet RxNorm: 9783634 1 Tablet(s) PO daily 09/06/2015 09/05/2015 Inactive Invokamet 50 mg-1,000 mg tablet RxNorm: 9052243 1 Tablet(s) PO daily 09/06/2015 12/04/2015 Inactive promethazine 25 mg tablet RxNorm: 866064 TAKE ONE TABLET BY MOUTH EVERY 6 TO 8 HOURS NEEDED 09/01/2015 09/16/2015 Inactive promethazine 25 mg tablet RxNorm: 857164 1 Tablet(s) PO Q6-8H as needed 08/27/2015 09/25/2015 Inactive metoprolol succinate ER 100 mg tablet,extended release 24 hr RxNorm: 474291 1 Tablet(s) PO daily 08/20/2015 09/15/2015 Inactive bumetanide 1 mg tablet RxNorm: 620282 1 Tablet(s) PO BID 08/20/2015 09/18/2015 Inactive Bumex 1 mg tablet RxNorm: 663425 1 Tablet(s) PO BID 08/20/2015 11/15/2015 Inactive Kenalog 40 mg/mL suspension for injection RxNorm: 8408174 Milliliter(s) Inj 08/20/2015 08/20/2015 Inactive bumetanide 1 mg tablet RxNorm: 749610 1 Tablet(s) PO BID 08/20/2015 08/19/2015 Inactive Levaquin 500 mg tablet RxNorm: 886253 1 Tablet(s) PO daily 08/20/2015 08/26/2015 Inactive promethazine 25 mg tablet RxNorm: 409556 1 Tablet(s) PO Q6-8H as needed 08/06/2015 08/26/2015 Inactive metformin 500 mg tablet RxNorm: 930661 Tablet(s) PO 500mg in the morning and 1000mg at night No Start Date 09/16/2015 Inactive Lantus Solostar 100 unit/mL (3 mL) subcutaneous insulin pen RxNorm: 843709 Unit(s) SQ UD 10 units QHS x 5 days, if blood sugars are above 200 increase to 15 units x 5 days, if still 200 increase to 20 units. No Start Date 04/13/2016 Inactive alprazolam 0.5 mg tablet RxNorm: 451249 1 Tablet(s) PO PRN as needed No Start Date 09/15/2015 Inactive cyclobenzaprine 10 mg tablet RxNorm: 792464 1 Tablet(s) PO PRN as needed No Start Date 04/05/2016 Inactive lidocaine 4 % topical patch RxNorm: 8535829 1 Patch TOP on for 12 hours and off for 12 hours No Start Date 04/12/2016 Inactive metoprolol tartrate 50 mg tablet RxNorm: 792830 1 Tablet(s) PO BID No Start Date 11/10/2015 Inactive spironolactone 50 mg tablet RxNorm: 824817 1 Tablet(s) PO BID No Start Date 09/15/2015 Inactive hydrocodone 7.5 mg-acetaminophen 325 mg tablet RxNorm: 177985 1 Tablet(s) PO Q4H as needed No Start Date 09/15/2015 Inactive promethazine 25 mg tablet RxNorm: 717863 1 Tablet(s) PO PRN as needed No Start Date 08/05/2015 Inactive Medication Administered Medication Codes Instructions Start Date Status ceftriaxone 500 mg solution for injection RxNorm: 5578649 06/05/2018 No longer Active Kenalog 40 mg/mL suspension for injection RxNorm: [id number] 15.Milliliter 02/19/2018 No longer Active Kenalog 40 mg/mL suspension for injection RxNorm: 6341953 Milliliter 09/05/2017 No longer Active Kenalog 40 mg/mL suspension for injection RxNorm: [id number] 1Milliliter 04/24/2017 No longer Active Kenalog 40 mg/mL suspension for injection RxNorm: 4703951 Milliliter 01/09/2017 No longer Active Kenalog 40 mg/mL suspension for injection RxNorm: 7300814 1Milliliter 04/06/2016 No longer Active Kenalog 40 mg/mL suspension for injection RxNorm: 0609353 1Milliliter 02/28/2016 No longer Active Kenalog 40 mg/mL suspension for injection RxNorm: 6522791 Milliliter 08/20/2015 No longer Active Immunizations Vaccine [...] Code Item Item Code Result Date %Hba1C Chu658 % HbA1c 81264- 6 8.4 % 06/06/2018 %Hba1C Tai268 Gluc Ave 194 mg/dL 06/06/2018 Lipid Ord30 CHOL 233 mg/dL 03/14/2018 Lipid Ord30 HDL 38.0 mg/dl 03/14/2018 Lipid Ord30 TRIG 143 mg/dL 03/14/2018 Lipid Ord30 LDL 166 mg/dL 03/14/2018 Lipid Ord30 C/HDL 6.1 Ratio 03/14/2018 %Hba1C Xni579 % HbA1c 79960- 6 9.8 % 03/14/2018 %Hba1C Alv679 Gluc Ave 235 mg/dL 03/14/2018 Tsh Ord6 TSH (3rd IS) 1.09 uIU/mL 03/14/2018 Comp Metabolic Uol832 NA 137 mEq/L 03/14/2018 Comp Metabolic Pgg457 K 4.6 mEq/L 03/14/2018 Comp Metabolic Exg312 CL 100 mEq/L 03/14/2018 Comp Metabolic Ybl128 CO2 27.0 mEq/L 03/14/2018 Comp Metabolic Vyz200 ANION GAP 15 03/14/2018 Comp Metabolic Vjm400 GLUCOSE 144 mg/dL 03/14/2018 Comp Metabolic Ztj924 Creat 0.5 mg/dL 03/14/2018 Comp Metabolic Hyk308 eGFR 138 ml/min/1.73m2 03/14/2018 Comp Metabolic Ald706 BUN 9 mg/dL 03/14/2018 Comp Metabolic Rmk451 B/C Ratio 17.6 Ratio 03/14/2018 Comp Metabolic Pcs778 CALCIUM 10.0 mg/dL 03/14/2018 Comp Metabolic Mne858 ALK PHOS 102 U/L 03/14/2018 Comp Metabolic Ddk517 AST(SGOT) 31 U/L 03/14/2018 Comp Metabolic Oxu387 ALT(SGPT) 41 U/L 03/14/2018 Comp Metabolic Scc692 BILI T 0.5 mg/dL 03/14/2018 Comp Metabolic Bcq373 ALBUMIN 4.3 g/dL 03/14/2018 Comp Metabolic Cpz680 TPRO 6.8 g/dL 03/14/2018 Comp Metabolic Pkh377 GLOB 2.5 g/dL 03/14/2018 Comp Metabolic Ubi599 A/G Ratio 1.8 Ratio 03/14/2018 Comp Metabolic Lli886 Osmo 275 mOsmo 03/14/2018 Cbc With Differential [...] 90.5 fl 03/14/2018 Cbc With Differential Ord2 [place]% 5.6 % 03/14/2018 Cbc With Differential Ord2 [...] 4.31 K/ul 03/14/2018 Cbc With Differential Ord2 [place] ABS# 0.9 K/ul 03/14/2018 Cbc With Differential Ord2 Eos ABS# 0.2 K/ul 03/14/2018 Cbc With Differential Ord2 Baso ABS# 0.1 K/ul 03/14/2018 %Hba1C Lig126 % HbA1c 18783- 6 8.8 % 06/13/2017 %Hba1C Edz137 Gluc Ave 206 mg/dL 06/13/2017 Tsh Ord6 [...] 30.2 pg 06/13/2017 Cbc With Differential Ord2 [place]% 4.9 % 06/13/2017 Cbc With Differential Ord2 [...] 3.21 K/ul 06/13/2017 Cbc With Differential Ord2 [place] ABS# 0.7 K/ul 06/13/2017 Cbc With Differential Ord2 Eos ABS# 0.2 K/ul 06/13/2017 Cbc With Differential Ord2 Baso ABS# 0.1 K/ul 06/13/2017 Lipid Ord30 CHOL 219 mg/dL 06/13/2017 Lipid Ord30 HDL 40.0 mg/dl 06/13/2017 Lipid Ord30 TRIG 200 mg/dL 06/13/2017 Lipid Ord30 LDL 139 mg/dL 06/13/2017 Lipid Ord30 C/HDL 5.5 Ratio 06/13/2017 Comp Metabolic Ooy009 NA 139 mEq/L 06/13/2017 Comp Metabolic Mtz911 K 4.4 mEq/L 06/13/2017 Comp Metabolic Xyf482 CL 100 mEq/L 06/13/2017 Comp Metabolic Bwx424 CO2 29.0 mEq/L 06/13/2017 Comp Metabolic Neg934 ANION GAP 14 06/13/2017 Comp Metabolic Nms275 GLUCOSE 257 mg/dL 06/13/2017 Comp Metabolic Agg146 Creat 0.5 mg/dL 06/13/2017 Comp Metabolic Vfz652 eGFR 145 ml/min/1.73m2 06/13/2017 Comp Metabolic Hct889 BUN 13 mg/dL 06/13/2017 Comp Metabolic Dra003 B/C Ratio 26.5 Ratio 06/13/2017 Comp Metabolic Vvc937 CALCIUM 9.7 mg/dL 06/13/2017 Comp Metabolic Hfk784 ALK PHOS 98 U/L 06/13/2017 Comp Metabolic Pto747 AST(SGOT) 30 U/L 06/13/2017 Comp Metabolic Ntm498 ALT(SGPT) 43 U/L 06/13/2017 Comp Metabolic Aog393 BILI T 0.5 mg/dL 06/13/2017 Comp Metabolic Zal997 ALBUMIN 4.0 g/dL 06/13/2017 Comp Metabolic Aoj362 TPRO 6.4 g/dL 06/13/2017 Comp Metabolic Ips718 GLOB 2.4 g/dL 06/13/2017 Comp Metabolic Egu823 A/G Ratio 1.7 Ratio 06/13/2017 Comp Metabolic Ufd273 Osmo 286 mOsmo 06/13/2017 %Hba1C Hpa671 % HbA1c 58766- 6 11.1 % 2016 %Hba1C Xsh584 Gluc Ave 272 mg/dL 2016 C-Reactive Protein Qnt Crqnt CRP 4.7 mg/dl 2016 Comp Metabolic Cdp790 NA 136 mEq/L 2016 Comp Metabolic Uff626 K 4.1 mEq/L 2016 Comp Metabolic Nrw738 CL 96 mEq/L 2016 Comp Metabolic Kgz592 CO2 29.0 mEq/L 2016 Comp Metabolic Fjp212 ANION GAP 15 2016 Comp Metabolic Qdk961 GLUCOSE 291 mg/dL 2016 Comp Metabolic Fqf447 Creat 0.4 mg/dL 2016 Comp Metabolic Fbb383 eGFR 165 ml/min/1.73m2 2016 Comp Metabolic How412 BUN 11 mg/dL 2016 Comp Metabolic Cfb426 B/C Ratio 25.0 Ratio 2016 Comp Metabolic Rph772 CALCIUM 9.4 mg/dL 2016 Comp Metabolic Tts735 ALK PHOS 111 U/L 2016 Comp Metabolic Knc886 AST(SGOT) 46 U/L 2016 Comp Metabolic Vhv265 ALT(SGPT) 60 U/L 2016 Comp Metabolic Pob537 BILI T 0.4 mg/dL 2016 Comp Metabolic Cdu264 ALBUMIN 4.0 g/dL 2016 Comp Metabolic Dgn184 TPRO 6.5 g/dL 2016 Comp Metabolic Kib190 GLOB 2.6 g/dL 2016 Comp Metabolic Dgs100 A/G Ratio 1.5 Ratio 2016 Comp Metabolic Frj606 Osmo 282 mOsmo 2016 Cbc With Differential [...] 30.5 pg 2016 Cbc With Differential Ord2 [place]% 4.7 % 2016 Cbc With Differential Ord2 [...] 3.53 K/ul 2016 Cbc With Differential Ord2 [place] ABS# 0.7 K/ul 2016 Cbc With Differential Ord2 Eos ABS# 0.2 K/ul 2016 Cbc With Differential Ord2 Baso ABS# 0.1 K/ul 2016 Lipid Ord30 CHOL 228 mg/dL 05/05/2016 Lipid Ord30 HDL 42.0 mg/dl 05/05/2016 Lipid Ord30 TRIG 168 mg/dL 05/05/2016 Lipid Ord30 LDL 152 mg/dL 05/05/2016 Lipid Ord30 C/HDL 5.4 Ratio 05/05/2016 Comp Metabolic Sbi637 NA 135 mEq/L 05/05/2016 Comp Metabolic Mie971 K 4.1 mEq/L 05/05/2016 Comp Metabolic Fae037 CL 99 mEq/L 05/05/2016 Comp Metabolic Wxr250 CO2 29.0 mEq/L 05/05/2016 Comp Metabolic Ohy424 ANION GAP 11 05/05/2016 Comp Metabolic Tvo841 GLUCOSE 229 mg/dL 05/05/2016 Comp Metabolic Hmv117 Creat 0.5 mg/dL 05/05/2016 Comp Metabolic Pup362 eGFR 150 ml/min/1.73m2 05/05/2016 Comp Metabolic Xgv553 BUN 14 mg/dL 05/05/2016 Comp Metabolic Wca317 B/C Ratio 29.2 Ratio 05/05/2016 Comp Metabolic Xcr445 CALCIUM 9.1 mg/dL 05/05/2016 Comp Metabolic Xda260 ALK PHOS 112 U/L 05/05/2016 Comp Metabolic Ccy770 AST(SGOT) 59 U/L 05/05/2016 Comp Metabolic Hlg926 ALT(SGPT) 63 U/L 05/05/2016 Comp Metabolic Xhx436 BILI T 0.7 mg/dL 05/05/2016 Comp Metabolic Jof546 ALBUMIN 3.8 g/dL 05/05/2016 Comp Metabolic Zjl622 TPRO 6.5 g/dL 05/05/2016 Comp Metabolic Vws108 GLOB 2.7 g/dL 05/05/2016 Comp Metabolic Fcy070 A/G Ratio 1.4 Ratio 05/05/2016 Comp Metabolic Xlf371 Osmo 278 mOsmo 05/05/2016 Cbc With Differential [...] 30.2 pg 05/05/2016 Cbc With Differential Ord2 [place]% 4.4 % 05/05/2016 Cbc With Differential Ord2 [...] 3.59 K/ul 05/05/2016 Cbc With Differential Ord2 [place] ABS# 0.7 K/ul 05/05/2016 Cbc With Differential Ord2 Eos ABS# 0.1 K/ul 05/05/2016 Cbc With Differential Ord2 Baso ABS# 0.1 K/ul 05/05/2016 %Hba1C Ddd832 % HbA1c 35446- 6 10.4 % 05/05/2016 %Hba1C Kcv997 Gluc Ave 252 mg/dL 05/05/2016 Hcg Beta Subunit Qual Serum 460321 B-HCG QUALITATIVE NEGATIVE 12/27/2015 GC/CHL PRB 1616650 Chl trach DNA Negative 12/25/2015 GC/CHL PRB 4632443 GC PROBE Negative 12/25/2015 Comp. Metabolic Panel (14) 19989 GLUCOSE 136 mg/dL 12/17/2015 Comp. Metabolic Panel (14) 38550 BUN 9 mg/dL 12/17/2015 Comp. Metabolic Panel (14) 24516 CREATININE 0.67 mg/dL 12/17/2015 Comp. Metabolic Panel (14) 17952 SODIUM 136 mmol/L 12/17/2015 Comp. Metabolic Panel (14) 83345 POTASSIUM 4.4 mmol/L 12/17/2015 Comp. Metabolic Panel (14) 06220 CHLORIDE 95 mmol/L 12/17/2015 Comp. Metabolic Panel (14) 27009 CARBON DIOXIDE 28 mmol/L 12/17/2015 Comp. Metabolic Panel (14) 99639 CALCIUM 10.1 mg/dL 12/17/2015 Comp. Metabolic Panel (14) 75447 TOTAL PROTEIN 7.0 g/dL 12/17/2015 Comp. Metabolic Panel (14) 67180 ALBUMIN 4.5 g/dL 12/17/2015 Comp. Metabolic Panel (14) 03770 ALKALINE PHOSPHATASE 87 U/L 12/17/2015 Comp. Metabolic Panel (14) 66393 TOTAL BILIRUBIN 0.5 mg/dL 12/17/2015 Comp. Metabolic Panel (14) 58500 SGOT (AST) 38 U/L 12/17/2015 Comp. Metabolic Panel (14) 42213 SGPT (ALT) 41 U/L 12/17/2015 Comp. Metabolic Panel (14) 31891 eGFR (mL/min/1.73m2) >60 12/17/2015 Comp. Metabolic Panel (14) 39695 12/17/2015 Cbc With Differential/Platelet 03579 WBC 16.67 thou/uL 12/17/2015 Cbc With Differential/Platelet 64584 RBC 5.11 mil/uL 12/17/2015 Cbc With Differential/Platelet 06282 HEMOGLOBIN 14.8 g/dL 12/17/2015 Cbc With Differential/Platelet 29971 HEMATOCRIT 48.7 % 12/17/2015 Cbc With Differential/Platelet 45833 MCV 95.4 fL 12/17/2015 Cbc With Differential/Platelet 61985 MCH 29.0 pg 12/17/2015 Cbc With Differential/Platelet 04526 MCHC 30.4 g/dL 12/17/2015 Cbc With Differential/Platelet 22139 RDW-CV 14.6 % 12/17/2015 Cbc With Differential/Platelet 97749 PLATELET COUNT 471 thou/uL 12/17/2015 Cbc With Differential/Platelet 19903 NEUTROPHIL % 71.3 % 12/17/2015 Cbc With Differential/Platelet 03798 LYMPHOCYTE % 22.4 % 12/17/2015 Cbc With Differential/Platelet 13413 MONOCYTE % 4.8 % 12/17/2015 Cbc With Differential/Platelet 62826 EOS % 0.7 % 12/17/2015 Cbc With Differential/Platelet 94839 BASO % 0.7 % 12/17/2015 Cbc With Differential/Platelet 48806 NEUTROPHIL ABS # 11.89 thou/uL 12/17/2015 Cbc With Differential/Platelet 06605 LYMPH ABS # 3.73 thou/uL 12/17/2015 Cbc With Differential/Platelet 55133 MONOCYTE ABS # 0.80 thou/uL 12/17/2015 Cbc With Differential/Platelet 51280 EOS ABS # 0.12 thou/uL 12/17/2015 Cbc With Differential/Platelet 45126 BASO ABS # 0.12 thou/uL 12/17/2015 Comp. [...] Hgb A1C With Eag Estimation GLYCOHEMOGLOBIN A1C 79231-8 8.1 % 11/13/2015 Hgb A1C With Eag Estimation ESTIMATED AVG GLUCOSE 186 mg/dL 11/13/2015 Comp. Metabolic Panel (14) 30043 GLUCOSE 84 mg/dL 09/11/2015 Comp. Metabolic Panel (14) 83752 BUN 11 mg/dL 09/11/2015 Comp. Metabolic Panel (14) 44948 CREATININE 0.56 mg/dL 09/11/2015 Comp. Metabolic Panel (14) 53709 SODIUM 142 mmol/L 09/11/2015 Comp. Metabolic Panel (14) 14636 POTASSIUM 4.3 mmol/L 09/11/2015 Comp. Metabolic Panel (14) 48170 CHLORIDE 98 mmol/L 09/11/2015 Comp. Metabolic Panel (14) 38706 CARBON DIOXIDE 27 mmol/L 09/11/2015 Comp. Metabolic Panel (14) 41368 CALCIUM 10.1 mg/dL 09/11/2015 Comp. Metabolic Panel (14) 37107 TOTAL PROTEIN 7.2 g/dL 09/11/2015 Comp. Metabolic Panel (14) 50496 ALBUMIN 4.7 g/dL 09/11/2015 Comp. Metabolic Panel (14) 85060 ALKALINE PHOSPHATASE 109 U/L 09/11/2015 Comp. Metabolic Panel (14) 01022 TOTAL BILIRUBIN 0.3 mg/dL 09/11/2015 Comp. Metabolic Panel (14) 87501 SGOT (AST) 53 U/L 09/11/2015 Comp. Metabolic Panel (14) 59500 SGPT (ALT) 53 U/L 09/11/2015 Comp. Metabolic Panel (14) 94345 eGFR (mL/min/1.73m2) >60 09/11/2015 Comp. Metabolic Panel (14) 51688 09/11/2015 Comp. Metabolic Panel (14) 56631 GLUCOSE 183 mg/dL 08/11/2015 Comp. Metabolic Panel (14) 41559 BUN 10 mg/dL 08/11/2015 Comp. Metabolic Panel (14) 22660 CREATININE 0.46 mg/dL 08/11/2015 Comp. Metabolic Panel (14) 55467 SODIUM 138 mmol/L 08/11/2015 Comp. Metabolic Panel (14) 42224 POTASSIUM 4.0 mmol/L 08/11/2015 Comp. Metabolic Panel (14) 77815 CHLORIDE 98 mmol/L 08/11/2015 Comp. Metabolic Panel (14) 52017 CARBON DIOXIDE 29 mmol/L 08/11/2015 Comp. Metabolic Panel (14) 82635 CALCIUM 9.4 mg/dL 08/11/2015 Comp. Metabolic Panel (14) 39953 TOTAL PROTEIN 6.8 g/dL 08/11/2015 Comp. Metabolic Panel (14) 07040 ALBUMIN 4.4 g/dL 08/11/2015 Comp. Metabolic Panel (14) 38393 ALKALINE PHOSPHATASE 118 U/L 08/11/2015 Comp. Metabolic Panel (14) 82825 TOTAL BILIRUBIN <0.3 mg/dL 08/11/2015 Comp. Metabolic Panel (14) 02536 SGOT (AST) 41 U/L 08/11/2015 Comp. Metabolic Panel (14) 15582 SGPT (ALT) 55 U/L 08/11/2015 Comp. Metabolic Panel (14) 82019 eGFR (mL/min/1.73m2) >60 08/11/2015 Comp. Metabolic Panel (14) 32992 08/11/2015 Cbc With Differential/Platelet 56922 WBC 11.76 thou/uL 08/11/2015 Cbc With Differential/Platelet 78865 RBC 4.98 mil/uL 08/11/2015 Cbc With Differential/Platelet 55507 HEMOGLOBIN 14.2 g/dL 08/11/2015 Cbc With Differential/Platelet 87036 HEMATOCRIT 46.7 % 08/11/2015 Cbc With Differential/Platelet 46010 MCV 93.8 fL 08/11/2015 Cbc With Differential/Platelet 15750 MCH 28.5 pg 08/11/2015 Cbc With Differential/Platelet 54372 MCHC 30.4 g/dL 08/11/2015 Cbc With Differential/Platelet 19171 RDW-CV 14.3 % 08/11/2015 Cbc With Differential/Platelet 36860 PLATELET COUNT 382 thou/uL 08/11/2015 Cbc With Differential/Platelet 76638 NEUTROPHIL % 67.3 % 08/11/2015 Cbc With Differential/Platelet 26051 LYMPHOCYTE % 24.0 % 08/11/2015 Cbc With Differential/Platelet 81052 MONOCYTE % 6.0 % 08/11/2015 Cbc With Differential/Platelet 65325 EOS % 1.6 % 08/11/2015 Cbc With Differential/Platelet 08388 BASO % 1.0 % 08/11/2015 Cbc With Differential/Platelet 69261 NEUTROPHIL ABS # 7.91 thou/uL 08/11/2015 Cbc With Differential/Platelet 80208 LYMPH ABS # 2.82 thou/uL 08/11/2015 Cbc With Differential/Platelet 92277 MONOCYTE ABS # 0.71 thou/uL 08/11/2015 Cbc With Differential/Platelet 07781 EOS ABS # 0.19 thou/uL 08/11/2015 Cbc With Differential/Platelet 25251 BASO ABS # 0.12 thou/uL 08/11/2015 Tsh 062615 TSH 3.220 uIU/mL 08/11/2015 Lipid Panel 37433 CHOLESTEROL 193 mg/dL 08/11/2015 Lipid Panel 28224 TRIGLYCERIDES 192 mg/dL 08/11/2015 Lipid Panel 47876 HDL 38 mg/dL 08/11/2015 Lipid Panel 15907 CHOLESTEROL/HDL 5.08 08/11/2015 Lipid Panel 13032 LDL (CALCULATED) 117 mg/dL 08/11/2015 Lipid Panel 57304 LDL/HDL 3.08 08/11/2015 Lipid Panel 20081 PHENOTYPE TYPE IV BORDERLINE 08/11/2015 Review of [...] Exam - General 1995 Ears/Nose/Throat otoscopic exam Tympanic membrane: air-fluid level [...] Procedure Codes Date THER/PROPH/DIAG INJ SC/IM CPT-4: 55938 06/05/2018 ROCEPHIN, PER 250 MG CPT- 4: J0696 06/05/2018 REMOVAL OF SKIN TAGS <W/15 CPT-4: 58249 03/14/2018 FLU VAC NO PRSV 4 PREICOUS 3 YRS+ CPT-4: 68569 03/14/2018 IMMUNIZATION ADMIN CPT- 4: 43893 03/14/2018 TRIAMCINOLONE ACET INJ NOS CPT-4: J3301 02/19/2018 THER/PROPH/DIAG INJ SC/IM CPT-4: 31784 02/19/2018 THER/PROPH/DIAG INJ SC/IM CPT-4: 29685 09/05/2017 TRIAMCINOLONE ACET INJ NOS CPT-4: J3301 09/05/2017 IMMUNIZATION ADMIN CPT- 4: 70881 04/24/2017 FLU VAC NO PRSV 4 PRECIOUS 3 YRS+ CPT-4: 30839 04/24/2017 DRAIN/INJECT JOINT/BURSA CPT-4: 44692 04/24/2017 TRIAMCINOLONE ACET INJ NOS CPT-4: J3301 04/24/2017 THER/PROPH/DIAG INJ SC/IM CPT-4: 92002 01/09/2017 TRIAMCINOLONE ACET INJ NOS CPT-4: J3301 01/09/2017 THER/PROPH/DIAG INJ SC/IM CPT-4: 27025 04/13/2016 Pneumococcal Polysaccharide Vaccine, 23-Valent, Ad CPT-4: 26990 04/13/2016 INJECT TRIGGER POINTS 3/> CPT-4: 59180 04/06/2016 TRIAMCINOLONE ACET INJ NOS CPT-4: J3301 04/06/2016 IMMUNIZATION ADMIN CPT- 4: 41567 03/30/2016 IIV4 FLU VACC NO PRESERV ID SNOMED CT: [id number] CPT-4: 46951 03/30/2016 TRIAMCINOLONE ACET INJ NOS CPT-4: J3301 02/28/2016 THER/PROPH/DIAG INJ SC/IM CPT-4: 28850 02/28/2016 TRIAMCINOLONE ACET INJ NOS CPT-4: J3301 [...] 1: 127 Code: 8480-6 BMI: 42.4 Code: 10235-6 Heart Rate 1: 78 bpm Height: 4'11" SpO2: 97% Weight: 210 lbs 03/26/2018 Blood Pressure 1: 128 Code: 8480-6 BMI: 43.0 Code: 09900-5 Heart Rate 1: 120 bpm Height: 4'11" SpO2: 97% Weight: 213 lbs 03/14/2018 Blood Pressure 1: 120 Code: 8480-6 BMI: 43.0 Code: 09990-8 Heart Rate 1: 114 bpm Height: 4'11" SpO2: 95% Weight: 213 lbs 03/07/2018 Blood Pressure 1: 132 Code: 8480-6 BMI: 43.8 Code: 74037-1 Heart Rate 1: 123 bpm Height: 4'11" [...] 1: 134/86 Code: 8480-6 BMI: 45.4 Code: 24579-3 Heart Rate 1: 108 bpm Height: 4'11" SpO2: 95% Weight: 225 lbs 06/07/2017 Blood Pressure 1: 13274 Code: 8480-6 Heart Rate 1: 99 bpm Height: 4'11" SpO2: 95% 04/24/2017 Blood Pressure 1: 132/8096 Code: 8480-6 BMI: 47.7 Code: 66178-0 Heart Rate 1: 96 bpm Height: 4'11" Weight: 236 lbs 01/09/2017 Blood Pressure 1: 12274 Code: 8480-6 BMI: 46.0 Code: 16838-7 Heart Rate 1: 114 bpm Height: 4'11" SpO2: 98% Temperature: 37.1 (C) / 98.7 (F) Weight: 228 lbs 10/30/2016 Blood Pressure 1: 124/78 Code: 8480-6 BMI: 49.1 Code: 03050-3 Heart Rate 1: 90 bpm Height: 4'11" SpO2: 97% Weight: 243 lbs 10/09/2016 Blood Pressure 1: 12480 Code: 8480-6 BMI: 49.3 Code: 33915-4 Heart Rate 1: 91 bpm Height: 4'11" SpO2: 98% Weight: 244 lbs 09/12/2016 Blood Pressure 1: 128/80 Code: 8480-6 BMI: 49.1 Code: 95673-5 Heart Rate 1: 94 bpm Height: 4'11" SpO2: 95% Weight: 243 lbs 09/05/2016 Blood Pressure 1: 118/74 Code: 8480-6 BMI: 49.1 Code: 16339-4 Heart Rate 1: 100 bpm Height: 4'11" SpO2: 97% Weight: 243 lbs 06/16/2016 Blood Pressure 1: 120/62 Code: 8480-6 BMI: 49.1 Code: 72041-0 Heart Rate 1: 100 bpm Height: 4'11" SpO2: 96% Temperature: 36.7 (C) / 98.0 (F) Weight: 243 lbs 06/13/2016 Blood Pressure 1: 120/70 Code: 8480-6 Heart Rate 1: 117 bpm SpO2: 97% 05/19/2016 Blood Pressure 1: 130/64 Code: 8480-6 BMI: 49.1 Code: 97714-7 Heart Rate 1: 101 bpm Height: 4'11" SpO2: 96% Weight: 243 lbs 05/08/2016 Blood Pressure 1: 128/76 Code: 8480-6 Heart Rate 1: 119 bpm Height: SpO2: 97% Weight: 05/05/2016 Blood Pressure 1: 124/76 Code: 8480-6 BMI: 49.1 Code: 39376-5 Heart Rate 1: 75 bpm Height: 4'11" SpO2: 99% Weight: 243 lbs 04/10/2016 Blood Pressure 1: 140/80 Code: 8480-6 BMI: 49.7 Code: 74407-4 Heart Rate 1: 88 bpm Height: 4'11" SpO2: 95% Weight: 246 lbs 04/06/2016 Blood Pressure 1: 134/82 Code: 8480-6 BMI: 75.1 Code: 38174-3 Heart Rate 1: 72 bpm Height: 4' SpO2: 96% Weight: 246 lbs 03/08/2016 Blood Pressure 1: 126/72 Code: 8480-6 BMI: 49.7 Code: 28598-8 Heart Rate 1: 89 bpm Height: 4'11" SpO2: 97% Weight: 246 lbs 02/28/2016 Blood Pressure 1: 124/68 Code: 8480-6 BMI: 49.7 Code: 66613-7 Heart Rate 1: 89 bpm Height: 4'11" SpO2: 96% Weight: 246 lbs 01/18/2016 Blood Pressure 1: 142/78 Code: 8480-6 BMI: 48.9 Code: 33594-3 Heart Rate 1: 97 bpm Height: 4'11" SpO2: 97% Weight: 242 lbs 12/23/2015 Blood Pressure 1: 124/74 Code: 8480-6 BMI: 48.9 Code: 40469-4 Heart Rate 1: 106 bpm Height: 4'11" SpO2: 96% Weight: 242 lbs 12/16/2015 Blood Pressure 1: 116/82 Code: 8480-6 BMI: 48.3 Code: 78748-5 Heart Rate 1: 111 bpm Height: 4'11" SpO2: 97% Weight: 239 lbs 11/11/2015 Blood Pressure 1: 130/80 Code: 8480-6 BMI: 49.7 Code: 69876-0 Heart Rate 1: 105 bpm Height: 4'11" SpO2: 96% Weight: 246 lbs 10/27/2015 Blood Pressure 1: 122/70 Code: 8480-6 BMI: 49.5 Code: 18962-3 Heart Rate 1: 107 bpm Height: 4'11" SpO2: 96% Weight: 245 lbs 10/13/2015 Blood Pressure 1: 140/82 Code: 8480-6 BMI: 50.9 Code: 39572-0 Heart Rate 1: 111 bpm Height: 4'11" SpO2: 96% Weight: 252 lbs 10/05/2015 Blood Pressure 1: 118/70 Code: 8480-6 BMI: 51.1 Code: 98126-3 Heart Rate 1: 120 bpm Height: 4'11" SpO2: 97% Weight: 253 lbs 09/01/2015 Blood Pressure 1: 132/82 Code: 8480-6 BMI: 50.1 Code: 02230-6 Heart Rate 1: 110 bpm Height: 4'11" SpO2: 96% Weight: 248 lbs 08/20/2015 Blood Pressure 1: 132/78 Code: 8480-6 BMI: 51.7 Code: 44507-4 Heart Rate 1: 100 bpm Height: 4'11" Weight: 256 lbs 08/03/2015 Blood Pressure 1: 148/92 Code: 8480-6 BMI: 52.1 Code: 33789-2 Heart Rate 1: 100 bpm Height: 4'11" [...] Diagnosis: Hidradenitis suppurativa[ICD10: L73.2] Gloria Hess MD, [facility] CPT- 4: 40873 07/22/2018 [id number] EST. PATIENT, LEVEL III Diagnosis: Hidradenitis suppurativa[ICD10: L73.2] Diagnosis: Encounter for other specified surgical aftercare[ICD10: Z48.89] Gloria Hess MD, [facility] CPT-4: 41789 07/18/2018 [id number] EST. PATIENT, LEVEL III Diagnosis: Cellulitis of right axilla[ICD10: L03.111] Diagnosis: Diarrhea, unspecified[ICD10: R19.7] Gloria Hess MD, [facility] CPT- 4: 42403 06/28/2018 ([id number]) [id number] EST. PATIENT, LEVEL II Diagnosis: Cellulitis of right axilla[ICD10: L03.111] Tamy Hess MD, [facility] CPT-4: 87232 06/17/2018 80720 EST. PATIENT, LEVEL III Diagnosis: Cellulitis of right axilla[ICD10: L03.111] Diagnosis: Type 2 diabetes mellitus with hyperglycemia[ICD10: E11.65] Gloria Hess MD, [facility] CPT-4: 22858 06/05/2018 [id number] EST. PATIENT, LEVEL III Diagnosis: Gastro-esophageal reflux disease without esophagitis[ICD10: K21.9] Diagnosis: Other allergic rhinitis[ICD10: J30.89] Diagnosis: Cough[ICD10: R05] [facility] CPT-4: 46571 03/26/2018 ([id number]) [id number] EST. PATIENT, LEVEL III Diagnosis: Cough[ICD10: R05] [facility] CPT-4: 93800 03/14/2018 83070 EST. PATIENT, LEVEL IV Diagnosis: Acute laryngopharyngitis[ICD10: J06.0] Diagnosis: Other allergic rhinitis[ICD10: J30.89] Diagnosis: Cough[ICD10: R05] Gloria Hess MD, [facility] CPT-4: 20481 03/07/2018 30532 EST. PATIENT, LEVEL IV Diagnosis: Acute bronchitis due to other specified organisms[ICD10: J20.8] Diagnosis: Acute laryngopharyngitis[ICD10: J06.0] Gloria Hess MD, [facility] CPT- 4: 82249 02/19/2018 [id number] EST. PATIENT, LEVEL IV Diagnosis: Candidiasis of vulva and vagina[ICD10: B37.3] Diagnosis: Rash and other nonspecific skin eruption[ICD10: R21] Gloria Hess MD, [facility] CPT-4: 89357 01/08/2018 24517 EST. PATIENT, LEVEL III Diagnosis: Sacrococcygeal disorders, not elsewhere classified[ICD10: M53.3] Diagnosis: Low back pain[ICD10: M54.5] Gloria Hess MD, [facility] CPT-4: 40848 11/23/2017 05573 EST. PATIENT, LEVEL III Diagnosis: Acute laryngopharyngitis[ICD10: J06.0] Diagnosis: Other allergic rhinitis[ICD10: J30.89] Diagnosis: Acute bronchitis due to other specified organisms[ICD10: J20.8] Gloria Hess MD, [facility] CPT-4: 82832 09/05/2017 [id number] EST. PATIENT, LEVEL III Diagnosis: Pain in left foot[ICD10: M79.672] Diagnosis: Rash and other nonspecific skin eruption[ICD10: R21] Diagnosis: Candidiasis of vulva and vagina[ICD10: B37.3] Diagnosis: Localized edema[ICD10: R60.0] Diagnosis: Dyspnea, unspecified[ICD10: R06.00] Gloria Hess MD, [facility] CPT- 4: 12664 06/07/2017 51826 EST. PATIENT, LEVEL III Diagnosis: Low back pain[ICD10: M54.5] Diagnosis: Sacroiliitis, not elsewhere classified[ICD10: M46.1] Diagnosis: Pain in left foot[ICD10: M79.672] Diagnosis: VACCIN FOR INFLUENZA[ICD10: Z23] Gloria Hess MD, [facility] CPT-4: 01850 04/24/2017 [id number] EST. PATIENT, LEVEL III Diagnosis: Acute suppurative otitis media without spontaneous rupture of ear drum, right ear[ICD10: H66.001] Diagnosis: Other allergic rhinitis[ICD10: J30.89] Gloria Hess MD, [facility] CPT- 4: 23821 01/09/2017 15709 EST. PATIENT, LEVEL IV Diagnosis: Candidiasis of vulva and vagina[ICD10: B37.3] Diagnosis: Type 2 diabetes mellitus with hyperglycemia[ICD10: E11.65] Gloria Hess MD, [facility] CPT-4: 49788 10/30/2016 21740 EST. PATIENT, LEVEL III Diagnosis: Candidiasis of vulva and vagina[ICD10: B37.3] Diagnosis: Type 2 diabetes mellitus with hyperglycemia[ICD10: E11.65] Gloria Hess MD, [facility] CPT-4: 52370 10/09/2016 22598 EST. PATIENT, LEVEL IV Diagnosis: Umbilical hernia without obstruction or gangrene[ICD10: K42.9] Glroia Hess MD, [facility] CPT-4: 44310 09/12/2016 89749 EST. PATIENT, LEVEL III Diagnosis: Epigastric pain[ICD10: R10.13] Diagnosis: Candidiasis of vulva and vagina[ICD10: B37.3] Diagnosis: Type 2 diabetes mellitus with hyperglycemia[ICD10: E11.65] Gloria Hess MD, [facility] CPT-4: 79238 09/05/2016 66521 EST. PATIENT, LEVEL III Diagnosis: Acute laryngopharyngitis[ICD10: J06.0] Diagnosis: Other allergic rhinitis[ICD10: J30.89] Gloria Hess MD, [facility] CPT- 4: 08077 06/16/2016 23609 EST. PATIENT, LEVEL III Diagnosis: Type 2 diabetes mellitus with hyperglycemia[ICD10: E11.65] Diagnosis: Other obesity due to excess calories[ICD10: E66.09] Gloria Hess MD, [facility] CPT-4: 88517 06/13/2016 48327 EST. PATIENT, LEVEL III Diagnosis: Type 2 diabetes mellitus with hyperglycemia[ICD10: E11.65] Diagnosis: Other obesity due to excess calories[ICD10: E66.09] Gloria Hess MD, [facility] CPT-4: 26267 05/19/2016 [id number] EST. PATIENT, LEVEL III Diagnosis: Type 2 diabetes mellitus with hyperglycemia[ICD10: E11.65] Diagnosis: Other obesity due to excess calories[ICD10: E66.09] Gloria Hess MD, [facility] CPT-4: 18214 05/08/2016 11192 EST. PATIENT, LEVEL III Diagnosis: Type 2 diabetes mellitus without complications[ICD10: E11.9] Gloria Hess MD [facility] CPT-4: [id number] 05/05/2016 42990 EST. PATIENT, LEVEL III Diagnosis: Pain in right shoulder[ICD10: M25.511] Gloria Hess MD [facility] CPT- 4: 98760 04/10/2016 19614 EST. PATIENT, LEVEL III Diagnosis: Pain in right shoulder[ICD10: M25.511] Diagnosis: Other muscle spasm[ICD10: M62.838] Diagnosis: Type 2 diabetes mellitus without complications[ICD10: E11.9] Gloria Hess MD, [facility] CPT-4: 81939 04/06/2016 83442 EST. PATIENT, LEVEL IV Diagnosis: Acute bronchitis due to other specified organisms[ICD10: J20.8] Diagnosis: Other acute sinusitis[ICD10: J01.80] Diagnosis: Acne vulgaris[ICD10: L70.0] Diagnosis: Morbid (severe) obesity due to excess calories[ICD10: E66.01] Gloria Hess MD, [facility] CPT-4: 58691 03/08/2016 84864 EST. PATIENT, LEVEL IV Diagnosis: Other acute sinusitis[ICD10: J01.80] Diagnosis: Localized enlarged lymph nodes[ICD10: R59.0] Gloria Hess MD, [facility] CPT-4: 43555 02/28/2016 87771 EST. PATIENT, LEVEL III Diagnosis: Type 2 diabetes mellitus without complications[ICD10: E11.9] Gloria Hess MD, [facility] CPT-4: 36371 01/18/2016 (93001) PREV VISIT EST AGE 40-64 Diagnosis: Encounter for gynecological examination (general) (routine) without abnormal findings[ICD10: Z01.419] Diagnosis: Excessive and frequent menstruation with irregular cycle[ICD10: N92.1] Gloria Hess MD, [facility] CPT-4: 21079 12/23/2015 43563 EST. PATIENT, LEVEL III Diagnosis: Type 2 diabetes mellitus without complications[ICD10: E11.9] Gloria Hess MD, [facility] CPT-4: 53870 12/16/2015 92387 EST. PATIENT, LEVEL III Diagnosis: Type 2 diabetes mellitus without complications[ICD10: E11.9] Diagnosis: Other obesity due to excess calories[ICD10: E66.09] Gloria Hess MD, [facility] CPT-4: 48632 11/11/2015 63701 EST. PATIENT, LEVEL III Diagnosis: Type 2 diabetes mellitus without complications[ICD10: E11.9] Diagnosis: Other obesity due to excess calories[ICD10: E66.09] Gloria Hess MD, [facility] CPT-4: 06010 10/27/2015 94640 EST. PATIENT, LEVEL III Diagnosis: Type 2 diabetes mellitus without complications[ICD10: E11.9] Diagnosis: Other obesity due to excess calories[ICD10: E66.09] Diagnosis: Other insomnia[ICD10: G47.09] Gloria Hess MD, [facility] CPT-4: 98102 10/13/2015 36235 EST. PATIENT, LEVEL IV Diagnosis: Acute recurrent maxillary sinusitis[ICD10: J01.01] Diagnosis: Allergic rhinitis due to pollen[ICD10: J30.1] Diagnosis: Other obesity due to excess calories[ICD10: E66.09] Gloria Hess MD, [facility] CPT-4: 19766 10/05/2015 63955 EST. PATIENT, LEVEL IV Diagnosis: Polycystic ovarian syndrome[ICD10: E28.2] Diagnosis: Other skin changes[ICD10: R23.8] Diagnosis: Other abnormal glucose[ICD10: R73.09] Gloria Hess MD, [facility] CPT- 4: 12081 09/01/2015 55122 EST. PATIENT, LEVEL IV Diagnosis: Acute recurrent maxillary sinusitis[ICD10: J01.01] Diagnosis: Morbid (severe) obesity due to excess calories[ICD10: E66.01] Diagnosis: Essential (primary) hypertension[ICD10: I10] Diagnosis: Allergic rhinitis due to pollen[ICD10: J30.1] [facility] CPT-4: 37394 08/20/2015 (41832) OFFICE VISIT, NEW - LEVEL 4 Diagnosis: Essential (primary) hypertension[ICD10: I10] Diagnosis: Obstructive sleep apnea (adult) (pediatric)[ICD10: G47.33] Diagnosis: Other insomnia[ICD10: G47.09] Diagnosis: Snoring[ICD10: R06.83] Diagnosis: Morbid (severe) obesity due to excess calories[ICD10: E66.01] [facility] CPT-4: 90391 08/03/2015 Plan of Care Planned Activity Notes Codes Status Date Visit Plan: incision - healing well - Wound Instructions - Pt was instructed to keep the wound clean, wash with antibacterial soap, use triple antibiotic ointment, call if redness, pustular drainage, or any other a cute concerns. Hidradenitis suppurativa - will refer to dermatology. 07/22/2018 Appointment: Gloria Scott WPtel: [address] [place], [place] [id number] (30 min) Complex 07/22/2018 Patient Education: Patient Medication Summary Completed 07/22/2018 Visit Plan: Hidradenitis suppurativa - post incision - wound healing well - continue to monitor Wound Instructions - Pt was instructed to keep the wound clean, wash with antibacterial soap, use triple antibiotic oi ntment, call if redness, pustular drainage, or any other acute concerns. 07/18/2018 Appointment: [facility]el[phone] (30 min) Complex 07/18/2018 Patient Education: Patient Medication Summary Completed 07/18/2018 Referral: Roni Roberts pt will be notified by there office to schedule Initiated 07/03/2018 Care Plan: Referral Order SNOMED-CT : [id number] Pending 07/01/2018 Visit Plan: Abscess/Cellulitis - The [...] stomach pain. 06/28/2018 Appointment: Gloria Scott WPtel: [facility] (30 min) Complex 06/28/2018 Patient Education: Patient Medication Summary Completed 06/28/2018 Visit Plan: Cellulitis-right nwpxnt-qodtxifa-psx bactroban ointment until healed completely-call with any concerns 06/17/2018 Appointment: Tamy Lugo WPtel: [facility]3 [phone] (15 min) Moderate 06/17/2018 Patient Education: Patient Medication Summary Completed 06/17/2018 Visit Plan: Abscess/Cellulitis - The patient was instructed in appropriate wound care. The patient was instructed to use the antibiotic ointment as per RX. The patient is to call for any change in symptoms, increase in size of the lesion, increase in pain, worsening redness, warmth, discharge. 06/05/2018 Appointment: Gloria Scott WPtel: [facility]4 [facility] (30 min) Complex 06/05/2018 Patient Education: Patient Medication Summary Completed 06/05/2018 Patient Education: Diabetes Completed 06/05/2018 Referral: [facility] Referral Initiated 04/19/2018 Care Plan: Referral Order SNOMED-CT : [id number] Pending 03/27/2018 Visit Plan: Esophageal Reflux - [...] spray. 03/26/2018 Appointment: Gloria Scott WPtel: [phone] [facility] (15 min) Moderate 03/26/2018 Patient Education: Patient Medication Summary Completed 03/26/2018 Appointment: [facility] Scott [facility]el[phone] [place] (15 min) Moderate 03/25/2018 Visit Plan: [...] and bandaids. 03/14/2018 Appointment: Gloria Scott WPtel: [phone] (15 min) Moderate 03/14/2018 Patient Education: Patient [...] not improve 03/07/2018 Appointment: Gloria Scott WPtel: [facility] (15 min) Moderate 03/07/2018 Patient Education: [...] worsen. 02/19/2018 Appointment: Gloria Scott WPtel: [phone] [facility] (15 min) Moderate 02/19/2018 Patient Education: Patient [...] warmth, discharge. 01/08/2018 Appointment: Gloria Scott WPtel: [phone] [facility] (30 min) Complex 01/08/2018 Patient Education: Patient [...] worsen. 09/05/2017 Appointment: Gloria Scott WPtel: [phone] [facility] (15 min) Moderate 09/05/2017 Patient Education: Patient [...] send RX 06/07/2017 Appointment: Gloria Scott WPtel: [facility]5 [facility] [place] (15 min) Moderate 06/07/2017 Patient Education: [...] of injection. 04/24/2017 Appointment: Gloria Scott WPtel: [facility]5 [facility] [place] (30 min) Complex 04/24/2017 Patient Education: Patient Medication Summary Completed 04/24/2017 Appointment: Gloria Scott WPtel: [facility] [place] (30 min) Complex 03/09/2017 Appointment: Gloria Scott WPtel: [address] [place], [place] [id number] [place] (30 min) Complex 02/13/2017 Visit Plan: [...] allergy spray. 01/09/2017 Appointment: Gloria Scott WPtel: [phone] [facility] (10 min) Simple 01/09/2017 Patient Education: Patient Medication Summary Completed 01/09/2017 Patient Education: Obesity Completed 01/09/2017 Visit Plan: Vaginal candidiasis - will send RX - pt is to notify clinic if symptoms do not improve, if they worsen, or with any questions or concerns. Diabetes Mellitus - Uncontrolled - Will refer to decorative engraver apprentice - I have recommended for the patient [...] Mellitus - Uncontrolled - Will refer to decorative engraver apprentice - I have recommended for the patient [...] control. 10/09/2016 Appointment: Gloria Scott WPtel: [phone] [facility] [place] (30 min) Complex 10/09/2016 Patient Education: Patient Medication Summary Completed 10/09/2016 Patient Education: Obesity Completed 10/09/2016 Referral: Roni Roberts Referral Completed 09/18/2016 Care Plan: CT ABD & PELV W/CONTRAST LOINC : 21757-5 Pending 09/13/2016 Care Plan: Referral Order SNOMED-CT : [id number] Pending 09/13/2016 Visit Plan: Ongoing abdominal pain/hernia - will send RX - will refer - pt is to notify clinic if symptoms do not improve, if they worsen, or with any questions or concerns. 09/12/2016 Appointment: Gloria Scott WPtel: [phone] [facility] [place] (30 min) Complex 09/12/2016 Patient Education: Patient Medication Summary Completed 09/12/2016 Patient Education: Obesity Completed 09/12/2016 Care Plan: Referral Order SNOMED-CT : [id number] Pending 09/12/2016 Visit Plan: Ongoing abdominal/epigastric pain [...] control. 09/05/2016 Appointment: Gloria Scott WPtel: [phone] [facility] [place] (30 min) Complex 09/05/2016 Patient Education: Patient [...] allergy spray. 06/16/2016 Appointment: Gloria Scott WPtel: [phone] [facility] [place] (10 min) Simple 06/16/2016 Patient Education: [...] check. 06/13/2016 Appointment: Gloria Scott WPtel: [phone] [facility] [place] (30 min) Complex 06/13/2016 Patient Education: Patient Medication Summary Completed 06/13/2016 Patient Education: Obesity Completed 06/13/2016 Appointment: Gloria Scott WPtel: [phone] [facility] [place] (30 min) Complex 06/08/2016 Visit Plan: [...] weight check. 05/19/2016 Appointment: Tamy Lugo WPtel: [phone] [phone] (30 min) Complex 05/19/2016 Patient Education: Patient [...] weight check. 05/08/2016 Appointment: Gloria Scott WPtel: [phone] [facility] (15 min) Moderate 05/08/2016 Patient Education: Patient [...] the morning. 05/05/2016 Appointment: Tamy Lugo WPtel: [phone] [phone] (15 min) Moderate 05/05/2016 Patient Education: Patient Medication Summary Completed 05/05/2016 Patient Education: Obesity Completed 05/05/2016 Care Plan: Comp Metabolic Pending 05/05/2016 Appointment: Jocelyn Hess WPtel: [phone] [facility] Surgical Procedure 04/17/2016 Appointment: Injection 04/13/2016 Patient Education: Patient Medication Summary Completed 04/13/2016 Visit Plan: Right shoulder pain - will refer to PT - The pt is to use prn antiinflammatories to manage acute pain. The patient is to call the office if the pain is worsening or does not improve. 04/10/2016 Appointment: Gloria Scott WPtel: [phone] [facility] [place] (30 min) Complex 04/10/2016 Patient Education: [...] control. 04/06/2016 Appointment: Gloria Scott WPtel: [phone] [facility] [place] (15 min) Moderate 04/06/2016 Patient Education: [...] [place] 02/28/2016 Appointment: Gloria Scott WPtel: [phone] [facility] [place] (30 min) Complex 02/28/2016 Patient Education: Patient Medication Summary Completed 02/28/2016 Patient Education: Obesity Completed 02/28/2016 Appointment: Gloria Scott WPtel: [phone] [facility] [place] (15 min) Moderate 01/31/2016 Visit Plan: [...] or prn. 12/23/2015 Appointment: Gloria Scott WPtel: [address] [place], [place] [address] [facility] 12/23/2015 Patient Education: Patient Medication [...] %Hba1C ADD TO BLOOD IN THE LAB. [facility] : 92463-9 Pending 08/13/2015 Visit Plan: Hypertension - uncontrolled [...] 08/03/2015 Patient Education: Hypertension Completed 08/03/2015 Referral: Rnoi Roberts Referral Completed [facility] Referral Initiated Referral: Roni Roberts Referral Initiated [...] tomorrow diflucan for 14 days [facility] will call [...] Mellitus - Uncontrolled - Will refer to decorative engraver apprentice - I have recommended for the patient [...] Mellitus - Uncontrolled - Will refer to decorative engraver apprentice - I have recommended for the patient [...] with any questions or concerns. . Cellulitis-right ycduat-lazezwjt-fis bactroban ointment until healed completely-call with any [...]
--- OUTSIDE RECORDS SUMMARY | 2018-12-17 03:55 | XMS REPORT | CCD ---
Author Author Gloria Scott MD, [facility] Address [address] [place] [address] Phone Care Team Providers Care Wage Conciliator Name Role Phone PP Unavailable CCM Unavailable Summary Purpose Interface Exchange Insurance Providers Payer name Policy type / Coverage type Covered alliance party ID Effective Begin Date Effective End Date [facility] Commercial Insurance [id number] Unknown Unknown Family history Father Diagnosis Age At Onset Hypertension Unknown Arthritis Unknown Mother Diagnosis Age At Onset Arthritis Unknown Hyperlipidemia Unknown Daughter Diagnosis Age At Onset Asthma Unknown Social History Social History Element Codes Description Effective Dates Marital status Unknown Darin 08/03/2015 Number of children Unknown 1 08/03/[address]: 1162534 Quit less than 5 years ago 08/03/2015 [...] Codes Condition Status Onset Date Resolved Date Encounter for other specified surgical aftercare ICD-9: V58.49 ICD-10: Z48.89 Active 07/18/2018 Unknown Hidradenitis suppurativa ICD-9: 705.83 ICD-10: L73.2 Active 07/18/2018 Unknown Cellulitis of right axilla [...] Problems Condition Codes Effective Dates Condition Status Encounter for other specified surgical aftercare ICD-9: V58.49 ICD-10: Z48.89 07/18/2018 Active Hidradenitis suppurativa ICD-9: 705.83 ICD-10: L73.2 07/18/2018 Active Cellulitis of right axilla ICD-9: [...] Instructions mupirocin 2 % topical ointment RxNorm: 004041 1 Application TOP daily 07/22/2018 07/28/2018 Active ibuprofen 800 mg tablet RxNorm: 860124 1 Tablet(s) PO TID as needed for pain 07/22/2018 07/31/2018 Active hydrocodone 7.5 mg-acetaminophen 325 mg tablet RxNorm: 500416 1 Tablet(s) PO Q4H as needed 07/18/2018 08/16/2018 Active promethazine 25 mg tablet RxNorm: 826049 TABLET(S) TAKE ONE TABLET BY MOUTH EVERY 6 TO 8 HOURS NEEDED 07/05/2018 No Stop Date Active hyoscyamine 0.125 mg sublingual tablet RxNorm: 9450257 1 Tablet(s) SL TID as needed diarrhea 06/28/2018 07/07/2018 Inactive mupirocin 2 % topical ointment RxNorm: 902756 1 Application TOP BID 06/17/2018 06/26/2018 Inactive mupirocin 2 % topical ointment RxNorm: 341490 1 Application TOP BID 06/05/2018 No Stop Date Active Keflex 500 mg capsule RxNorm: 269977 1 Capsule(s) PO TID 06/05/2018 06/11/2018 Inactive ceftriaxone 500 mg solution for injection RxNorm: 6991070 Inj 06/05/2018 06/05/2018 Inactive Diflucan 150 mg tablet RxNorm: 008390 1 Tablet(s) PO daily 06/05/2018 07/02/2018 Inactive Protonix 40 mg tablet,delayed release RxNorm: 818325 1 Tablet(s) PO BID x 1 week then daily 03/26/2018 No Stop Date Active Phenergan with Codeine Syrup RxNorm: 5-10 ML PO QID as needed cough 03/19/2018 No Stop Date Active promethazine 25 mg tablet RxNorm: 355438 Tablet(s) TAKE ONE TABLET BY MOUTH EVERY 6 TO 8 HOURS NEEDED 03/15/2018 07/04/2018 Inactive Singulair 10 mg tablet RxNorm: 060368 1 Tablet(s) PO daily 03/14/2018 04/12/2018 Inactive metoprolol succinate ER 100 mg tablet,extended release 24 hr RxNorm: 943668 1 Tablet(s) PO daily 03/07/2018 04/05/2018 Inactive Zithromax Z-Rashid 250 mg tablet RxNorm: 521715 1 Tablet(s) PO UD 03/07/2018 03/07/2018 Inactive prednisone 20 mg tablet RxNorm: 399473 2 Tablet(s) PO daily 03/07/2018 03/11/2018 Inactive albuterol sulfate 2.5 mg/3 mL (0.083 %) solution for nebulization RxNorm: 539240 3 Milliliter(s) INH Q4-6H as needed dyspnea 02/19/2018 No Stop Date Active Diflucan 150 mg tablet RxNorm: 725045 Tablet(s) TAKE ONE TABLET BY MOUTH ONCE DAILY FOR 7 DAYS THEN TAKE ONE TABLET BY MOUTH ONCE A WEEK 02/19/2018 06/04/2018 Inactive Levaquin 500 mg tablet RxNorm: 033615 1 Tablet(s) PO daily 02/19/2018 02/25/2018 Inactive prednisone 20 mg tablet RxNorm: 681483 2 Tablet(s) PO daily 02/19/2018 02/23/2018 Inactive Kenalog 40 mg/mL suspension for injection RxNorm: 0319242 15. Milliliter(s) Inj 02/19/2018 02/19/2018 Inactive hydrocodone 7.5 mg-acetaminophen 325 mg tablet RxNorm: 518174 1 Tablet(s) PO Q4H as needed 02/05/2018 03/06/2018 Inactive clindamycin HCl 300 mg capsule RxNorm: 182283 1 Capsule(s) PO TID 01/09/2018 01/15/2018 Inactive promethazine 25 mg tablet RxNorm: 391503 Tablet(s) TAKE ONE TABLET BY MOUTH EVERY 6 TO 8 HOURS NEEDED 01/08/2018 03/14/2018 Inactive Diflucan 150 mg tablet RxNorm: 726762 Tablet(s) TAKE ONE TABLET BY MOUTH ONCE DAILY FOR 7 DAYS THEN TAKE ONE TABLET BY MOUTH ONCE A WEEK 01/08/2018 02/18/2018 Inactive Bactrim DS 800 mg-160 mg tablet RxNorm: 774121 1 Tablet(s) PO BID 01/08/2018 01/17/2018 Inactive prednisone 20 mg tablet RxNorm: 560011 2 Tablet(s) PO daily 11/23/2017 11/27/2017 Inactive Zithromax Z-Rashid 250 mg tablet RxNorm: 641801 1 Tablet(s) PO UD 09/05/2017 02/11/2018 Inactive Kenalog 40 mg/mL suspension for injection RxNorm: 6021396 Milliliter(s) Inj 09/05/2017 09/05/2017 Inactive prednisone 20 mg tablet RxNorm: 035194 2 Tablet(s) PO daily 09/05/2017 09/09/2017 Inactive ibuprofen 800 mg tablet RxNorm: 972179 1 Tablet(s) PO TID 07/27/2017 02/21/2018 Inactive metoprolol succinate ER 100 mg tablet,extended release 24 hr RxNorm: 531672 TAKE ONE TABLET BY MOUTH ONCE DAILY 06/20/2017 No Stop Date Active alprazolam 0.5 mg tablet RxNorm: 001761 1 Tablet(s) PO Q8 as needed 06/20/2017 07/09/2017 Inactive Zithromax Z-Rashid 250 mg tablet RxNorm: 051583 1 Tablet(s) PO UD 06/15/2017 07/25/2017 Inactive Xopenex HFA 45 mcg/actuation aerosol inhaler RxNorm: 977963 INHALE ONE PUFF INTO LUNGS NEEDED 06/13/2017 07/14/2017 Inactive Xopenex 1.25 mg/3 mL solution for nebulization RxNorm: 388762 Milliliter(s) USE ONE VIAL IN NEBULIZER THREE TIMES DAILY 06/08/2017 No Stop Date Active Flovent HFA 44 mcg/actuation aerosol inhaler RxNorm: 870409 2 Puff(s) INH BID 06/08/2017 No Stop Date Active potassium chloride ER 10 mEq tablet,extended release RxNorm: 725184 1 Tablet(s) PO daily 06/08/2017 06/10/2017 Inactive Lasix 20 mg tablet RxNorm: 758271 1 Tablet(s) PO daily 06/08/2017 06/10/2017 Inactive Xopenex HFA 45 mcg/actuation aerosol inhaler RxNorm: 855406 INHALE ONE PUFF INTO LUNGS NEEDED 06/08/2017 06/12/2017 Inactive triamcinolone acetonide 0.025 % topical cream RxNorm: 4341618 1 Application TOP BID 06/07/2017 No Stop Date Active ibuprofen 800 mg tablet RxNorm: 969005 1 Tablet(s) PO TID 06/07/2017 07/06/2017 Inactive cyclobenzaprine 5 mg tablet RxNorm: 095317 1/2 Tablet(s) PO TID as needed muscle spasms 05/28/2017 06/01/2017 Inactive Diflucan 150 mg tablet RxNorm: 603577 TAKE ONE TABLET BY MOUTH ONCE DAILY FOR 7 DAYS THEN TAKE ONE TABLET BY MOUTH ONCE A WEEK 05/28/2017 01/07/2018 Inactive bumetanide 1 mg tablet RxNorm: 656642 TAKE ONE TABLET BY MOUTH TWICE DAILY 05/25/2017 No Stop Date Active meloxicam 7.5 mg tablet RxNorm: 503544 1 Tablet(s) PO daily as needed 05/25/2017 07/23/2017 Inactive Xopenex 1.25 mg/3 mL solution for nebulization RxNorm: 700131 USE ONE VIAL IN NEBULIZER THREE TIMES DAILY 05/25/2017 06/07/2017 Inactive Protonix 40 mg tablet,delayed release RxNorm: 453583 1 Tablet(s) PO daily 05/08/2017 11/03/2017 Inactive Protonix 40 mg tablet,delayed release RxNorm: 985928 1 Tablet(s) PO daily 05/04/2017 05/03/2017 Inactive Protonix 40 mg tablet,delayed release RxNorm: 908820 1 Tablet(s) PO daily 05/04/2017 05/07/2017 Inactive meloxicam 7.5 mg tablet RxNorm: 611575 1 Tablet(s) PO daily as needed 04/25/2017 04/24/2017 Inactive meloxicam 7.5 mg tablet RxNorm: 148236 1 Tablet(s) PO daily as needed 04/25/2017 05/04/2017 Inactive promethazine 25 mg tablet RxNorm: 853715 TAKE ONE TABLET BY MOUTH EVERY 6 TO 8 HOURS NEEDED 04/25/2017 01/07/2018 Inactive Kenalog 40 mg/mL suspension for injection RxNorm: 4104999 1 Milliliter(s) Inj 04/24/2017 04/24/2017 Inactive cyclobenzaprine 5 mg tablet RxNorm: 424992 1/2 Tablet(s) PO TID as needed muscle spasms 04/24/2017 04/28/2017 Inactive Xopenex HFA 45 mcg/actuation aerosol inhaler RxNorm: 591271 INHALE ONE PUFF INTO LUNGS NEEDED 03/30/2017 04/14/2017 Inactive Humalog KwikPen 200 unit/mL (3 mL) subcutaneous RxNorm: 3957998 INJECT 35 UNITS SUBCUTANEOUSLY BEFORE MEAL(S) 03/30/2017 06/05/2017 Inactive promethazine 25 mg tablet RxNorm: 618163 Tablet(s) TAKE ONE TABLET BY MOUTH EVERY 6 TO 8 HOURS NEEDED 03/12/2017 03/26/2017 Inactive cyclobenzaprine 10 mg tablet RxNorm: 262778 TAKE ONE TABLET BY MOUTH ONCE DAILY NEEDED 03/06/2017 03/15/2017 Inactive lidocaine 5 % topical patch RxNorm: 2128173 USE ONE PATCH TOPICALLY DAILY. 12 HOURS ON AND THEN 12 HOURS OFF. 03/06/2017 03/15/2017 Inactive Humalog KwikPen 200 unit/mL (3 mL) subcutaneous RxNorm: 0939721 INJECT 35 UNITS SUBCUTANEOUSLY BEFORE MEAL(S) 02/20/2017 03/25/2017 Inactive promethazine 25 mg tablet RxNorm: 082608 Tablet(s) TAKE ONE TABLET BY MOUTH EVERY 6 TO 8 HOURS NEEDED 02/20/2017 03/06/2017 Inactive Xopenex HFA 45 mcg/actuation aerosol inhaler RxNorm: 418374 INHALE ONE PUFF INTO LUNGS NEEDED 02/20/2017 03/07/2017 Inactive bumetanide 1 mg tablet RxNorm: 979839 TAKE ONE TABLET BY MOUTH TWICE DAILY 02/15/2017 05/15/2017 Inactive bumetanide 1 mg tablet RxNorm: 789087 TAKE ONE TABLET BY MOUTH TWICE DAILY 01/15/2017 02/13/2017 Inactive metoprolol succinate ER 100 mg tablet,extended release 24 hr RxNorm: 373008 TAKE ONE TABLET BY MOUTH ONCE DAILY 01/11/2017 06/19/2017 Inactive Zithromax Z-Rashid 250 mg tablet RxNorm: 805421 1 Tablet(s) PO UD 01/09/2017 03/13/2017 Inactive meclizine 25 mg tablet RxNorm: 956015 1 Tablet(s) PO TID as needed 01/09/2017 01/18/2017 Inactive Kenalog 40 mg/mL suspension for injection RxNorm: 2651815 Milliliter(s) Inj 01/09/2017 01/09/2017 Inactive promethazine 25 mg tablet RxNorm: 728190 Tablet(s) TAKE ONE TABLET BY MOUTH EVERY 6 TO 8 HOURS NEEDED 12/29/2016 01/12/2017 Inactive Voltaren 1 % topical gel RxNorm: 064943 APPLY TOPICALLY TO AFFECTED AREA TWICE DAILY 12/25/2016 01/13/2017 Inactive cyclobenzaprine 10 mg tablet RxNorm: 419387 TAKE ONE TABLET BY MOUTH NEEDED 12/22/2016 12/31/2016 Inactive lidocaine 5 % topical patch RxNorm: 3352154 USE ONE PATCH TOPICALLY DAILY. 12 HOURS ON AND THEN 12 HOURS OFF. 12/22/2016 12/31/2016 Inactive hydrocodone 7.5 mg-acetaminophen 325 mg tablet RxNorm: 113967 1 Tablet(s) PO Q4H as needed 12/22/2016 01/20/2017 Inactive bumetanide 1 mg tablet RxNorm: 228283 TAKE ONE TABLET BY MOUTH TWICE DAILY 12/17/2016 01/14/2017 Inactive promethazine 25 mg tablet RxNorm: 497405 Tablet(s) TAKE ONE TABLET BY MOUTH EVERY 6 TO 8 HOURS NEEDED 11/16/2016 12/15/2016 Inactive spironolactone 50 mg tablet RxNorm: 942012 TAKE ONE TABLET BY MOUTH TWICE DAILY 11/15/2016 05/13/2017 Inactive Basaglar KwikPen 100 unit/mL (3 mL) subcutaneous RxNorm: 4176234 Unit(s) INJECT 35 UNITS IN THE MORNING AND 50 UNITS IN THE EVENING SUBCUTANEOUSLY 11/15/2016 03/14/2017 Inactive cyclobenzaprine 10 mg tablet RxNorm: 391851 TAKE ONE TABLET BY MOUTH NEEDED 11/15/2016 12/04/2016 Inactive lidocaine 5 % topical patch RxNorm: 4806511 1 Patch TOP daily . 12 HOURS ON, 12 HOURS OFF 11/15/2016 12/04/2016 Inactive lidocaine 4 % topical patch RxNorm: 2526950 1 Patch TOP on for 12 hours and off for 12 hours 11/14/2016 11/14/2016 Inactive promethazine 25 mg tablet RxNorm: 598934 TAKE ONE TABLET BY MOUTH EVERY 6 TO 8 HOURS NEEDED 11/14/2016 11/15/2016 Inactive Basaglar KwikPen 100 unit/mL (3 mL) subcutaneous RxNorm: 0985540 INJECT 35 UNITS IN THE MORNING AND 50 UNITS IN THE EVENING SUBCUTANEOUSLY 11/14/2016 11/14/2016 Inactive cyclobenzaprine 10 mg tablet RxNorm: 255648 TAKE ONE TABLET BY MOUTH NEEDED 11/14/2016 11/14/2016 Inactive spironolactone 50 mg tablet RxNorm: 191288 TAKE ONE TABLET BY MOUTH TWICE DAILY 11/14/2016 11/14/2016 Inactive Diflucan 150 mg tablet RxNorm: 593909 1 Tablet(s) PO as needed prophylactic after sexual intercourse 10/30/2016 No Stop Date Active hydrocodone 7.5 mg-acetaminophen 325 mg tablet RxNorm: 903507 1 Tablet(s) PO Q4H as needed 10/30/2016 11/28/2016 Inactive clotrimazole 100 mg vaginal tablet RxNorm: 803714 1 Tablet(s) VAG QW 10/30/2016 11/28/2016 Inactive Humalog KwikPen 200 unit/mL (3 mL) subcutaneous RxNorm: 7015138 35 Unit(s) SQ AC 10/30/2016 02/19/2017 Inactive QS 30 day supply Bydureon 2 mg/0.65 mL subcutaneous pen injector RxNorm: 1864902 2 Milligram(s) SQ QW 10/30/2016 11/28/2016 Inactive Basaglar KwikPen 100 unit/mL (3 mL) subcutaneous RxNorm: 6742911 Unit(s) SQ 35 units in the morning and 50 units in the evening 10/30/2016 11/13/2016 Inactive QS 30 day supply cyclobenzaprine 10 mg tablet RxNorm: 540945 TAKE ONE TABLET BY MOUTH NEEDED 10/27/2016 11/05/2016 Inactive Diflucan 150 mg tablet RxNorm: 538086 1 Tablet(s) PO daily x 7 days then once a week 10/27/2016 10/29/2016 Inactive promethazine 25 mg tablet RxNorm: 108502 TAKE ONE TABLET BY MOUTH EVERY 6 TO 8 HOURS NEEDED 10/27/2016 11/10/2016 Inactive Diflucan 150 mg tablet RxNorm: 496863 1 Tablet(s) PO daily x 7 days then once a week 10/09/2016 10/15/2016 Inactive Diflucan 150 mg tablet RxNorm: 672364 1 Tablet(s) PO daily 09/20/2016 09/26/2016 Inactive Cipro 500 mg tablet RxNorm: 152893 1 Tablet(s) PO BID 09/12/2016 09/21/2016 Inactive Flagyl 500 mg tablet RxNorm: 768996 1 Tablet(s) PO TID 09/12/2016 09/21/2016 Inactive Diflucan 150 mg tablet RxNorm: 075962 1 Tablet(s) PO daily 09/06/2016 09/12/2016 Inactive hydrocodone 7.5 mg-acetaminophen 325 mg tablet RxNorm: 045454 1 Tablet(s) PO Q4H as needed 07/12/2016 08/10/2016 Inactive Xopenex 1.25 mg/3 mL solution for nebulization RxNorm: 547737 3 Milliliter(s) INH TID 06/16/2016 05/24/2017 Inactive cefdinir 300 mg capsule RxNorm: 723257 1 Capsule(s) PO BID 06/16/2016 06/25/2016 Inactive Mobic 7.5 mg tablet RxNorm: 239650 1 Tablet(s) PO daily 06/16/2016 06/25/2016 Inactive Levaquin 500 mg tablet RxNorm: 895244 1 Tablet(s) PO daily 06/16/2016 06/22/2016 Inactive cyclobenzaprine 10 mg tablet RxNorm: 197154 1 Tablet(s) PO PRN as needed 06/14/2016 06/23/2016 Inactive promethazine 25 mg tablet RxNorm: 407510 TAKE ONE TABLET BY MOUTH EVERY 6 TO 8 HOURS NEEDED 06/14/2016 06/28/2016 Inactive Xopenex HFA 45 mcg/actuation aerosol inhaler RxNorm: 256548 1 Puff(s) INH PRN 06/14/2016 07/15/2016 Inactive pen needle, diabetic 32 gauge x 5/16" RxNorm: 1 use Miscellaneous AC & HS 06/13/2016 No Stop Date Active QS 30 day supply Humalog KwikPen 200 unit/mL (3 mL) subcutaneous RxNorm: 4618796 10 Unit(s) SQ AC 06/13/2016 10/29/2016 Inactive QS 30 day supply Basaglar KwikPen 100 unit/mL (3 mL) subcutaneous RxNorm: 3440841 22 units in the morning and 35 in the evening. Unit(s) SQ 06/13/2016 10/29/2016 Inactive QS 30 day supply Tivorbex 20 mg capsule RxNorm: 7343035 1 Capsule(s) PO TID as needed 06/13/2016 06/13/2016 Inactive metoprolol succinate ER 100 mg tablet,extended release 24 hr RxNorm: 394870 TAKE ONE TABLET BY MOUTH ONCE DAILY 06/13/2016 10/10/2016 Inactive hydrocodone 7.5 mg-acetaminophen 325 mg tablet RxNorm: 841604 1 Tablet(s) PO Q4H as needed 06/13/2016 07/11/2016 Inactive Voltaren 1 % topical gel RxNorm: 274257 APPLY TOPICALLY TO AFFECTED AREA TWICE DAILY 05/30/2016 07/08/2016 Inactive alprazolam 0.5 mg tablet RxNorm: 348203 1 Tablet(s) PO Q8 as needed 05/19/2016 No Stop Date Active cyclobenzaprine 10 mg tablet RxNorm: 944328 1 Tablet(s) PO PRN as needed 05/19/2016 05/28/2016 Inactive bumetanide 1 mg tablet RxNorm: 322017 TAKE ONE TABLET BY MOUTH TWICE DAILY 05/19/2016 06/17/2016 Inactive Sprintec (28) 0.25 mg-35 mcg tablet RxNorm: 972040 1 Tablet(s) PO UD 05/08/2016 No Stop Date Active Lantus Solostar 100 unit/mL (3 mL) subcutaneous insulin pen RxNorm: 839216 Unit(s) SQ UD 15units qam 30 units qhs 05/08/2016 No Stop Date Active Humalog KwikPen 200 unit/mL (3 mL) subcutaneous RxNorm: 6635484 10 Unit(s) SQ AC 05/08/2016 06/12/2016 Inactive bumetanide 1 mg tablet RxNorm: 801323 TAKE ONE TABLET BY MOUTH TWICE DAILY 04/28/2016 05/18/2016 Inactive Voltaren 1 % topical gel RxNorm: 716197 1 Application TOP BID 04/28/2016 05/07/2016 Inactive cyclobenzaprine 10 mg tablet RxNorm: 311359 1 Tablet(s) PO PRN as needed 04/28/2016 05/07/2016 Inactive hydrocodone 7.5 mg-acetaminophen 325 mg tablet RxNorm: 964811 1 Tablet(s) PO Q4H as needed 04/18/2016 05/16/2016 Inactive Lantus Solostar 100 unit/mL (3 mL) subcutaneous insulin pen RxNorm: 971674 Unit(s) SQ UD 10 units QHS x5 days, if sugars are over 200 increase to 15 units x 5 days, if sugars over 200 increase to 20 units. 04/14/2016 05/07/2016 Inactive lidocaine 4 % topical patch RxNorm: 0296661 1 Patch TOP on for 12 hours and off for 12 hours 04/13/2016 11/13/2016 Inactive Voltaren 1 % topical gel RxNorm: 213285 1 Application TOP BID 04/10/2016 04/27/2016 Inactive metformin ER 500 mg 24 hr tablet,extended release RxNorm: 308763 1 Tablet(s) PO daily 04/06/2016 05/05/2016 Inactive Kenalog 40 mg/mL suspension for injection RxNorm: 1439353 1 Milliliter(s) Inj 04/06/2016 04/06/2016 Inactive cyclobenzaprine 10 mg tablet RxNorm: 552237 1 Tablet(s) PO PRN as needed 04/06/2016 04/27/2016 Inactive WelChol 3.75 gram oral powder packet RxNorm: 612389 1 packet PO daily 04/06/2016 07/04/2016 Inactive alprazolam 0.5 mg tablet RxNorm: 515835 1 Tablet(s) PO Q8 as needed 03/30/2016 06/19/2017 Inactive Levaquin 500 mg tablet RxNorm: 167526 1 Tablet(s) PO daily 03/30/2016 04/05/2016 Inactive metoprolol succinate ER 100 mg tablet,extended release 24 hr RxNorm: 554694 TAKE ONE TABLET BY MOUTH ONCE DAILY 03/16/2016 06/12/2016 Inactive Levaquin 500 mg tablet RxNorm: 162227 1 Tablet(s) PO daily 03/08/2016 03/14/2016 Inactive prednisone 20 mg tablet RxNorm: 728540 2 Tablet(s) PO daily 03/08/2016 03/12/2016 Inactive Xopenex HFA 45 mcg/actuation aerosol inhaler RxNorm: 103679 1 Puff(s) INH PRN 02/28/2016 06/13/2016 Inactive Phenergan with Codeine Syrup RxNorm: 5-10 ML PO QID as needed cough 02/28/2016 03/18/2018 Inactive Kenalog 40 mg/mL suspension for injection RxNorm: 1515322 1 Milliliter(s) Inj 02/28/2016 02/28/2016 Inactive Zithromax Z-Rashid 250 mg tablet RxNorm: 003422 1 Tablet(s) PO UD 02/28/2016 03/27/2016 Inactive alprazolam 0.5 mg tablet RxNorm: 183986 1 Tablet(s) PO Q8 as needed 02/24/2016 06/19/2017 Inactive glipizide 5 mg tablet RxNorm: 056635 1 Tablet(s) PO daily 01/18/2016 05/16/2016 Inactive Actos 15 mg tablet RxNorm: 072825 1 Tablet(s) PO daily 01/18/2016 02/16/2016 Inactive gabapentin 100 mg capsule RxNorm: 577863 1 Capsule(s) PO QHS 01/13/2016 03/12/2016 Inactive gabapentin 100 mg capsule RxNorm: 563472 1 Capsule(s) PO QHS 01/13/2016 01/12/2016 Inactive Bydureon 2 mg/0.65 mL subcutaneous pen injector RxNorm: 0876731 1 Milliliter(s) SQ QW 01/12/2016 01/11/2016 Inactive Bydureon 2 mg/0.65 mL subcutaneous pen injector RxNorm: 0762095 2/0.65ml Milligram(s) SQ QW 01/12/2016 05/16/2016 Inactive Bydureon 2 mg/0.65 mL subcutaneous pen injector RxNorm: 4971275 1 Milliliter(s) SQ QW 01/12/2016 01/11/2016 Inactive bumetanide 1 mg tablet RxNorm: 664444 TAKE ONE TABLET BY MOUTH TWICE DAILY 01/10/2016 04/08/2016 Inactive promethazine 25 mg tablet RxNorm: 186461 Tablet(s) Tablet(s) 1 Tablet(s) PO Q6-8H as needed 12/16/2015 04/13/2016 Inactive promethazine 25 mg tablet RxNorm: 722469 Tablet(s) 1 Tablet(s) PO Q6-8H as needed 12/10/2015 12/15/2015 Inactive Trulicity 0.75 mg/0.5 mL subcutaneous pen injector RxNorm: 3140621 INJECT ONE-HALF ML SUBCUTANEOUSLY ONCE A WEEK 12/10/2015 01/11/2016 Inactive glipizide 5 mg tablet RxNorm: 283870 1 Tablet(s) PO daily 12/10/2015 01/17/2016 Inactive bumetanide 1 mg tablet RxNorm: 082379 TAKE ONE TABLET BY MOUTH TWICE DAILY 12/10/2015 01/08/2016 Inactive promethazine 25 mg tablet RxNorm: 546631 Tablet(s) 1 Tablet(s) PO Q6-8H as needed 11/18/2015 12/09/2015 Inactive promethazine 25 mg tablet RxNorm: 432233 1 Tablet(s) PO Q6-8H as needed 11/16/2015 11/17/2015 Inactive glipizide 5 mg tablet RxNorm: 733264 1/2 Tablet(s) PO daily 11/16/2015 12/15/2015 Inactive promethazine 25 mg tablet RxNorm: 387271 Tablet(s) 1 Tablet(s) PO Q6-8H as needed 11/11/2015 12/10/2015 Inactive metoprolol tartrate 50 mg tablet RxNorm: 778297 1 Tablet(s) PO BID 11/11/2015 02/08/2016 Inactive Trulicity 0.75 mg/0.5 mL subcutaneous pen injector RxNorm: 9192431 .5 Milliliter(s) SQ QW 11/11/2015 01/11/2016 Inactive promethazine 25 mg tablet RxNorm: 636671 1 Tablet(s) PO Q6-8H as needed 10/28/2015 11/10/2015 Inactive nystatin 100,000 unit/gram topical cream RxNorm: 933934 1 Gram(s) TOP BID 10/27/2015 No Stop Date Active alprazolam 0.5 mg tablet RxNorm: 367783 1 Tablet(s) PO Q8 as needed 10/27/2015 03/29/2016 Inactive hydrocodone 7.5 mg-acetaminophen 325 mg tablet RxNorm: 126251 1 Tablet(s) PO Q4H as needed 10/27/2015 11/25/2015 Inactive Trulicity 0.75 mg/0.5 mL subcutaneous pen injector RxNorm: 7437691 .5 Milliliter(s) SQ QW 10/27/2015 11/10/2015 Inactive glipizide 5 mg tablet RxNorm: 554578 1 Tablet(s) PO daily 10/27/2015 11/25/2015 Inactive hydrocodone 7.5 mg-acetaminophen 325 mg tablet RxNorm: 228898 1 Tablet(s) PO Q4H as needed 10/26/2015 10/26/2015 Inactive alprazolam 0.5 mg tablet RxNorm: 853333 1 Tablet(s) PO PRN as needed 10/26/2015 10/26/2015 Inactive promethazine 25 mg tablet RxNorm: 414155 1 Tablet(s) PO Q6-8H as needed 10/26/2015 11/15/2015 Inactive glipizide 5 mg tablet RxNorm: 480216 1/2 Tablet(s) PO daily 10/13/2015 10/26/2015 Inactive cefdinir 300 mg capsule RxNorm: 031332 1 Capsule(s) PO BID 10/05/2015 10/14/2015 Inactive prednisone 20 mg tablet RxNorm: 653612 2 Tablet(s) PO daily 10/05/2015 10/09/2015 Inactive Diflucan 150 mg tablet RxNorm: 260952 1 Tablet(s) PO daily 10/05/2015 10/11/2015 Inactive Invokamet 50 mg-500 mg tablet RxNorm: 4258971 1 Tablet(s) PO daily 10/05/2015 11/03/2015 Inactive alprazolam 0.5 mg tablet RxNorm: 815582 1 Tablet(s) PO PRN as needed 10/01/2015 02/23/2016 Inactive promethazine 25 mg tablet RxNorm: 455224 1 Tablet(s) PO Q6-8H as needed 09/30/2015 10/25/2015 Inactive bumetanide 1 mg tablet RxNorm: 843496 TAKE ONE TABLET BY MOUTH TWICE DAILY 09/30/2015 10/29/2015 Inactive bumetanide 1 mg tablet RxNorm: 236426 TAKE ONE TABLET BY MOUTH TWICE DAILY 09/20/2015 12/18/2015 Inactive bumetanide 1 mg tablet RxNorm: 434930 1 Tablet(s) PO BID 09/20/2015 10/19/2015 Inactive metoprolol succinate ER 100 mg tablet,extended release 24 hr RxNorm: 702693 1 Tablet(s) PO daily 09/16/2015 03/13/2016 Inactive spironolactone 50 mg tablet RxNorm: 286151 1 Tablet(s) PO BID 09/16/2015 03/13/2016 Inactive alprazolam 0.5 mg tablet RxNorm: 748646 1 Tablet(s) PO PRN as needed 09/16/2015 10/25/2015 Inactive hydrocodone 7.5 mg-acetaminophen 325 mg tablet RxNorm: 280907 1 Tablet(s) PO Q4H as needed 09/16/2015 10/25/2015 Inactive Invokamet 50 mg-1,000 mg tablet RxNorm: 2043300 1 Tablet(s) PO daily 09/06/2015 09/05/2015 Inactive Invokamet 50 mg-1,000 mg tablet RxNorm: 5608687 1 Tablet(s) PO daily 09/06/2015 12/04/2015 Inactive promethazine 25 mg tablet RxNorm: 624178 TAKE ONE TABLET BY MOUTH EVERY 6 TO 8 HOURS NEEDED 09/01/2015 09/16/2015 Inactive promethazine 25 mg tablet RxNorm: 981421 1 Tablet(s) PO Q6-8H as needed 08/27/2015 09/25/2015 Inactive metoprolol succinate ER 100 mg tablet,extended release 24 hr RxNorm: 895227 1 Tablet(s) PO daily 08/20/2015 09/15/2015 Inactive bumetanide 1 mg tablet RxNorm: 958843 1 Tablet(s) PO BID 08/20/2015 09/18/2015 Inactive Bumex 1 mg tablet RxNorm: 845165 1 Tablet(s) PO BID 08/20/2015 11/15/2015 Inactive Kenalog 40 mg/mL suspension for injection RxNorm: 5222723 Milliliter(s) Inj 08/20/2015 08/20/2015 Inactive bumetanide 1 mg tablet RxNorm: 756898 1 Tablet(s) PO BID 08/20/2015 08/19/2015 Inactive Levaquin 500 mg tablet RxNorm: 963900 1 Tablet(s) PO daily 08/20/2015 08/26/2015 Inactive promethazine 25 mg tablet RxNorm: 110957 1 Tablet(s) PO Q6-8H as needed 08/06/2015 08/26/2015 Inactive metformin 500 mg tablet RxNorm: 363217 Tablet(s) PO 500mg in the morning and 1000mg at night No Start Date 09/16/2015 Inactive Lantus Solostar 100 unit/mL (3 mL) subcutaneous insulin pen RxNorm: 756224 Unit(s) SQ UD 10 units QHS x 5 days, if blood sugars are above 200 increase to 15 units x 5 days, if still 200 increase to 20 units. No Start Date 04/13/2016 Inactive alprazolam 0.5 mg tablet RxNorm: 624545 1 Tablet(s) PO PRN as needed No Start Date 09/15/2015 Inactive cyclobenzaprine 10 mg tablet RxNorm: 906880 1 Tablet(s) PO PRN as needed No Start Date 04/05/2016 Inactive lidocaine 4 % topical patch RxNorm: 3226601 1 Patch TOP on for 12 hours and off for 12 hours No Start Date 04/12/2016 Inactive metoprolol tartrate 50 mg tablet RxNorm: 806685 1 Tablet(s) PO BID No Start Date 11/10/2015 Inactive spironolactone 50 mg tablet RxNorm: 930436 1 Tablet(s) PO BID No Start Date 09/15/2015 Inactive hydrocodone 7.5 mg-acetaminophen 325 mg tablet RxNorm: 629687 1 Tablet(s) PO Q4H as needed No Start Date 09/15/2015 Inactive promethazine 25 mg tablet RxNorm: 010260 1 Tablet(s) PO PRN as needed No Start Date 08/05/2015 Inactive Medication Administered Medication Codes Instructions Start Date Status ceftriaxone 500 mg solution for injection RxNorm: 6996866 06/05/2018 No longer Active Kenalog 40 mg/mL suspension for injection RxNorm: 6743246 15.Milliliter 02/19/2018 No longer Active Kenalog 40 mg/mL suspension for injection RxNorm: 8375483 Milliliter 09/05/2017 No longer Active Kenalog 40 mg/mL suspension for injection RxNorm: 3389964 1Milliliter 04/24/2017 No longer Active Kenalog 40 mg/mL suspension for injection RxNorm: 6397051 Milliliter 01/09/2017 No longer Active Kenalog 40 mg/mL suspension for injection RxNorm: 9077671 1Milliliter 04/06/2016 No longer Active Kenalog 40 mg/mL suspension for injection RxNorm: 8824857 1Milliliter 02/28/2016 No longer Active Kenalog 40 mg/mL suspension for injection RxNorm: 4204449 Milliliter 08/20/2015 No longer Active Immunizations Vaccine Codes Date Status Influenza CVX: 141 03/14/2018 completed Influenza CVX: 141 04/24/2017 completed Pneumococcal (Adult) CVX: 33 04/13/2016 completed Influenza CVX: 141 03/30/2016 completed Assessments Condition Codes Effective Dates Encounter for other specified surgical aftercare ICD-10: Z48.89 ICD-9: V58.49 07/18/2018 Hidradenitis suppurativa ICD-10: L73.2 ICD-9: 705.83 07/18/2018 Cellulitis of right axilla ICD-10: L03.111 [...] Visit Reason For Visit Effective Dates Notes Post-op wound 07/18/2018 skin lesion 06/28/2018 skin [...] Code Item Item Code Result Date %Hba1C Gnh199 % HbA1c 64085- 6 8.4 % 06/06/2018 %Hba1C Sie744 Gluc Ave 194 mg/dL 06/06/2018 Lipid Ord30 CHOL 233 mg/dL 03/14/2018 Lipid Ord30 HDL 38.0 mg/dl 03/14/2018 Lipid Ord30 TRIG 143 mg/dL 03/14/2018 Lipid Ord30 LDL 166 mg/dL 03/14/2018 Lipid Ord30 C/HDL 6.1 Ratio 03/14/2018 %Hba1C Gfw972 % HbA1c 40497- 6 9.8 % 03/14/2018 %Hba1C Ojq063 Gluc Ave 235 mg/dL 03/14/2018 Tsh Ord6 TSH (3rd IS) 1.09 uIU/mL 03/14/2018 Comp Metabolic Buk825 NA 137 mEq/L 03/14/2018 Comp Metabolic Yxs670 K 4.6 mEq/L 03/14/2018 Comp Metabolic Xeu834 CL 100 mEq/L 03/14/2018 Comp Metabolic Ecp260 CO2 27.0 mEq/L 03/14/2018 Comp Metabolic Cvw721 ANION GAP 15 03/14/2018 Comp Metabolic Cqi582 GLUCOSE 144 mg/dL 03/14/2018 Comp Metabolic Fen932 Creat 0.5 mg/dL 03/14/2018 Comp Metabolic Jyh484 eGFR 138 ml/min/1.73m2 03/14/2018 Comp Metabolic Nnb562 BUN 9 mg/dL 03/14/2018 Comp Metabolic Jqg112 B/C Ratio 17.6 Ratio 03/14/2018 Comp Metabolic Ael621 CALCIUM 10.0 mg/dL 03/14/2018 Comp Metabolic Jrn932 ALK PHOS 102 U/L 03/14/2018 Comp Metabolic Zuu356 AST(SGOT) 31 U/L 03/14/2018 Comp Metabolic Nxr898 ALT(SGPT) 41 U/L 03/14/2018 Comp Metabolic Rfa769 BILI T 0.5 mg/dL 03/14/2018 Comp Metabolic Fsx028 ALBUMIN 4.3 g/dL 03/14/2018 Comp Metabolic Njq196 TPRO 6.8 g/dL 03/14/2018 Comp Metabolic Vdc175 GLOB 2.5 g/dL 03/14/2018 Comp Metabolic Jqm123 A/G Ratio 1.8 Ratio 03/14/2018 Comp Metabolic Ihw761 Osmo 275 mOsmo 03/14/2018 Cbc With Differential [...] 90.5 fl 03/14/2018 Cbc With Differential Ord2 Armstrong% 5.6 % 03/14/2018 Cbc With Differential Ord2 [...] 4.31 K/ul 03/14/2018 Cbc With Differential Ord2 Armstrong ABS# 0.9 K/ul 03/14/2018 Cbc With Differential Ord2 Eos ABS# 0.2 K/ul 03/14/2018 Cbc With Differential Ord2 Baso ABS# 0.1 K/ul 03/14/2018 %Hba1C Xok556 % HbA1c 55604- 6 8.8 % 06/13/2017 %Hba1C Iwo430 Gluc Ave 206 mg/dL 06/13/2017 Tsh Ord6 [...] 30.2 pg 06/13/2017 Cbc With Differential Ord2 Armstrong% 4.9 % 06/13/2017 Cbc With Differential Ord2 [...] 3.21 K/ul 06/13/2017 Cbc With Differential Ord2 Armstrong ABS# 0.7 K/ul 06/13/2017 Cbc With Differential Ord2 Eos ABS# 0.2 K/ul 06/13/2017 Cbc With Differential Ord2 Baso ABS# 0.1 K/ul 06/13/2017 Lipid Ord30 CHOL 219 mg/dL 06/13/2017 Lipid Ord30 HDL 40.0 mg/dl 06/13/2017 Lipid Ord30 TRIG 200 mg/dL 06/13/2017 Lipid Ord30 LDL 139 mg/dL 06/13/2017 Lipid Ord30 C/HDL 5.5 Ratio 06/13/2017 Comp Metabolic Crx572 NA 139 mEq/L 06/13/2017 Comp Metabolic Psa032 K 4.4 mEq/L 06/13/2017 Comp Metabolic Waj719 CL 100 mEq/L 06/13/2017 Comp Metabolic Dtq937 CO2 29.0 mEq/L 06/13/2017 Comp Metabolic Iib552 ANION GAP 14 06/13/2017 Comp Metabolic Rzs090 GLUCOSE 257 mg/dL 06/13/2017 Comp Metabolic Ewz944 Creat 0.5 mg/dL 06/13/2017 Comp Metabolic Qhu613 eGFR 145 ml/min/1.73m2 06/13/2017 Comp Metabolic Srf777 BUN 13 mg/dL 06/13/2017 Comp Metabolic Oci036 B/C Ratio 26.5 Ratio 06/13/[address] CALCIUM 9.7 mg/dL 06/13/2017 Comp Metabolic Vqe207 ALK PHOS 98 U/L 06/13/2017 Comp Metabolic Paw910 AST(SGOT) 30 U/L 06/13/2017 Comp Metabolic Hvk599 ALT(SGPT) 43 U/L 06/13/2017 Comp Metabolic Hfs039 BILI T 0.5 mg/dL 06/13/2017 Comp Metabolic Gqo992 ALBUMIN 4.0 g/dL 06/13/2017 Comp Metabolic Yrv879 TPRO 6.4 g/dL 06/13/2017 Comp Metabolic Rlb774 GLOB 2.4 g/dL 06/13/2017 Comp Metabolic Crt682 A/G Ratio 1.7 Ratio 06/13/2017 Comp Metabolic Gcw790 Osmo 286 mOsmo 06/13/2017 %Hba1C Biz563 % HbA1c 55451- 6 11.1 % 2016 %Hba1C Ubz216 Gluc Ave 272 mg/dL 2016 C-Reactive Protein Qnt Crqnt CRP 4.7 mg/dl 2016 Comp Metabolic Efu104 NA 136 mEq/L 2016 Comp Metabolic Sxy776 K 4.1 mEq/L 2016 Comp Metabolic Bev310 CL 96 mEq/L 2016 Comp Metabolic Cms848 CO2 29.0 mEq/L 2016 Comp Metabolic Tgy673 ANION GAP 15 2016 Comp Metabolic Noq468 GLUCOSE 291 mg/dL 2016 Comp Metabolic Ksd361 Creat 0.4 mg/dL 2016 Comp Metabolic Txs389 eGFR 165 ml/min/1.73m2 2016 Comp Metabolic Ydj908 BUN 11 mg/dL 2016 Comp Metabolic Sdu003 B/C Ratio 25.0 Ratio 2016 Comp Metabolic Omk978 CALCIUM 9.4 mg/dL 2016 Comp Metabolic Fyb394 ALK PHOS 111 U/L 2016 Comp Metabolic Qep474 AST(SGOT) 46 U/L 2016 Comp Metabolic Tdo896 ALT(SGPT) 60 U/L 2016 Comp Metabolic Oen627 BILI T 0.4 mg/dL 2016 Comp Metabolic Kfj409 ALBUMIN 4.0 g/dL 2016 Comp Metabolic Icm197 TPRO 6.5 g/dL 2016 Comp Metabolic Gia760 GLOB 2.6 g/dL 2016 Comp Metabolic Mkh702 A/G Ratio 1.5 Ratio 2016 Comp Metabolic Otn938 Osmo 282 mOsmo 2016 Cbc With Differential [...] 30.5 pg 2016 Cbc With Differential Ord2 Armstrong% 4.7 % 2016 Cbc With Differential Ord2 [...] 3.53 K/ul 2016 Cbc With Differential Ord2 Armstrong ABS# 0.7 K/ul 2016 Cbc With Differential Ord2 Eos ABS# 0.2 K/ul 2016 Cbc With Differential Ord2 Baso ABS# 0.1 K/ul 2016 Lipid Ord30 CHOL 228 mg/dL 05/05/2016 Lipid Ord30 HDL 42.0 mg/dl 05/05/2016 Lipid Ord30 TRIG 168 mg/dL 05/05/2016 Lipid Ord30 LDL 152 mg/dL 05/05/2016 Lipid Ord30 C/HDL 5.4 Ratio 05/05/2016 Comp Metabolic Ejs514 NA 135 mEq/L 05/05/2016 Comp Metabolic Iiv476 K 4.1 mEq/L 05/05/2016 Comp Metabolic Qbd200 CL 99 mEq/L 05/05/2016 Comp Metabolic Ysc064 CO2 29.0 mEq/L 05/05/2016 Comp Metabolic Och292 ANION GAP 11 05/05/2016 Comp Metabolic Nji236 GLUCOSE 229 mg/dL 05/05/2016 Comp Metabolic Pii435 Creat 0.5 mg/dL 05/05/2016 Comp Metabolic Myr234 eGFR 150 ml/min/1.73m2 05/05/2016 Comp Metabolic Dbl208 BUN 14 mg/dL 05/05/2016 Comp Metabolic Gxg711 B/C Ratio 29.2 Ratio 05/05/2016 Comp Metabolic Fac155 CALCIUM 9.1 mg/dL 05/05/2016 Comp Metabolic Pvq549 ALK PHOS 112 U/L 05/05/2016 Comp Metabolic Sxg899 AST(SGOT) 59 U/L 05/05/2016 Comp Metabolic Kgf073 ALT(SGPT) 63 U/L 05/05/2016 Comp Metabolic Pie833 BILI T 0.7 mg/dL 05/05/2016 Comp Metabolic Tyh259 ALBUMIN 3.8 g/dL 05/05/2016 Comp Metabolic Upy043 TPRO 6.5 g/dL 05/05/2016 Comp Metabolic Cla046 GLOB 2.7 g/dL 05/05/2016 Comp Metabolic Jok507 A/G Ratio 1.4 Ratio 05/05/2016 Comp Metabolic Squ981 Osmo 278 mOsmo 05/05/2016 Cbc With Differential [...] 30.2 pg 05/05/2016 Cbc With Differential Ord2 Armstrong% 4.4 % 05/05/2016 Cbc With Differential Ord2 [...] 3.59 K/ul 05/05/2016 Cbc With Differential Ord2 Armstrong ABS# 0.7 K/ul 05/05/2016 Cbc With Differential Ord2 Eos ABS# 0.1 K/ul 05/05/2016 Cbc With Differential Ord2 Baso ABS# 0.1 K/ul 05/05/2016 %Hba1C Rws194 % HbA1c 06036- 6 10.4 % 05/05/2016 %Hba1C Fxs806 Gluc Ave 252 mg/dL 05/05/2016 Hcg Beta Subunit Qual Serum 425506 B-HCG QUALITATIVE NEGATIVE 12/27/2015 GC/CHL PRB 8912680 Chl trach DNA Negative 12/25/2015 GC/CHL PRB 0903793 GC PROBE Negative 12/25/2015 Comp. Metabolic Panel (14) 85450 GLUCOSE 136 mg/dL 12/17/2015 Comp. Metabolic Panel (14) 45744 BUN 9 mg/dL 12/17/2015 Comp. Metabolic Panel (14) 76443 CREATININE 0.67 mg/dL 12/17/2015 Comp. Metabolic Panel (14) 46136 SODIUM 136 mmol/L 12/17/2015 Comp. Metabolic Panel (14) 45483 POTASSIUM 4.4 mmol/L 12/17/2015 Comp. Metabolic Panel (14) 38085 CHLORIDE 95 mmol/L 12/17/2015 Comp. Metabolic Panel (14) 78833 CARBON DIOXIDE 28 mmol/L 12/17/2015 Comp. Metabolic Panel (14) 72603 CALCIUM 10.1 mg/dL 12/17/2015 Comp. Metabolic Panel (14) 55366 TOTAL PROTEIN 7.0 g/dL 12/17/2015 Comp. Metabolic Panel (14) 51294 ALBUMIN 4.5 g/dL 12/17/2015 Comp. Metabolic Panel (14) 67505 ALKALINE PHOSPHATASE 87 U/L 12/17/2015 Comp. Metabolic Panel (14) 90920 TOTAL BILIRUBIN 0.5 mg/dL 12/17/2015 Comp. Metabolic Panel (14) 37498 SGOT (AST) 38 U/L 12/17/2015 Comp. Metabolic Panel (14) 20599 SGPT (ALT) 41 U/L 12/17/2015 Comp. Metabolic Panel (14) 16681 eGFR (mL/min/1.73m2) >60 12/17/2015 Comp. Metabolic Panel (14) 13076 12/17/2015 Cbc With Differential/Platelet 57800 WBC 16.67 thou/uL 12/17/2015 Cbc With Differential/Platelet 51833 RBC 5.11 mil/uL 12/17/2015 Cbc With Differential/Platelet 26103 HEMOGLOBIN 14.8 g/dL 12/17/2015 Cbc With Differential/Platelet 48453 HEMATOCRIT 48.7 % 12/17/2015 Cbc With Differential/Platelet 23608 MCV 95.4 fL 12/17/2015 Cbc With Differential/Platelet 45378 MCH 29.0 pg 12/17/2015 Cbc With Differential/Platelet 85198 MCHC 30.4 g/dL 12/17/2015 Cbc With Differential/Platelet 33387 RDW-CV 14.6 % 12/17/2015 Cbc With Differential/Platelet 96792 PLATELET COUNT 471 thou/uL 12/17/2015 Cbc With Differential/Platelet 66954 NEUTROPHIL % 71.3 % 12/17/2015 Cbc With Differential/Platelet 49526 LYMPHOCYTE % 22.4 % 12/17/2015 Cbc With Differential/Platelet 90979 MONOCYTE % 4.8 % 12/17/2015 Cbc With Differential/Platelet 19212 EOS % 0.7 % 12/17/2015 Cbc With Differential/Platelet 17297 BASO % 0.7 % 12/17/2015 Cbc With Differential/Platelet 76255 NEUTROPHIL ABS # 11.89 thou/uL 12/17/2015 Cbc With Differential/Platelet 33550 LYMPH ABS # 3.73 thou/uL 12/17/2015 Cbc With Differential/Platelet 23423 MONOCYTE ABS # 0.80 thou/uL 12/17/2015 Cbc With Differential/Platelet 69180 EOS ABS # 0.12 thou/uL 12/17/2015 Cbc With Differential/Platelet 89455 BASO ABS # 0.12 thou/uL 12/17/2015 Comp. [...] Hgb A1C With Eag Estimation GLYCOHEMOGLOBIN A1C 51054-8 8.1 % 11/13/2015 Hgb A1C With Eag Estimation ESTIMATED AVG GLUCOSE 186 mg/dL 11/13/2015 Comp. Metabolic Panel (14) 99840 GLUCOSE 84 mg/dL 09/11/2015 Comp. Metabolic Panel (14) 29585 BUN 11 mg/dL 09/11/2015 Comp. Metabolic Panel (14) 82410 CREATININE 0.56 mg/dL 09/11/2015 Comp. Metabolic Panel (14) 62277 SODIUM 142 mmol/L 09/11/2015 Comp. Metabolic Panel (14) 26147 POTASSIUM 4.3 mmol/L 09/11/2015 Comp. Metabolic Panel (14) 81218 CHLORIDE 98 mmol/L 09/11/2015 Comp. Metabolic Panel (14) 18788 CARBON DIOXIDE 27 mmol/L 09/11/2015 Comp. Metabolic Panel (14) 20637 CALCIUM 10.1 mg/dL 09/11/2015 Comp. Metabolic Panel (14) 91331 TOTAL PROTEIN 7.2 g/dL 09/11/2015 Comp. Metabolic Panel (14) 28130 ALBUMIN 4.7 g/dL 09/11/2015 Comp. Metabolic Panel (14) 63339 ALKALINE PHOSPHATASE 109 U/L 09/11/2015 Comp. Metabolic Panel (14) 70841 TOTAL BILIRUBIN 0.3 mg/dL 09/11/2015 Comp. Metabolic Panel (14) 52584 SGOT (AST) 53 U/L 09/11/2015 Comp. Metabolic Panel (14) 81667 SGPT (ALT) 53 U/L 09/11/2015 Comp. Metabolic Panel (14) 51923 eGFR (mL/min/1.73m2) >60 09/11/2015 Comp. Metabolic Panel (14) 54804 09/11/2015 Comp. Metabolic Panel (14) 11261 GLUCOSE 183 mg/dL 08/11/2015 Comp. Metabolic Panel (14) 32136 BUN 10 mg/dL 08/11/2015 Comp. Metabolic Panel (14) 65394 CREATININE 0.46 mg/dL 08/11/2015 Comp. Metabolic Panel (14) 41850 SODIUM 138 mmol/L 08/11/2015 Comp. Metabolic Panel (14) 08822 POTASSIUM 4.0 mmol/L 08/11/2015 Comp. Metabolic Panel (14) 91773 CHLORIDE 98 mmol/L 08/11/2015 Comp. Metabolic Panel (14) 35434 CARBON DIOXIDE 29 mmol/L 08/11/2015 Comp. Metabolic Panel (14) 17089 CALCIUM 9.4 mg/dL 08/11/2015 Comp. Metabolic Panel (14) 86556 TOTAL PROTEIN 6.8 g/dL 08/11/2015 Comp. Metabolic Panel (14) 08895 ALBUMIN 4.4 g/dL 08/11/2015 Comp. Metabolic Panel (14) 24736 ALKALINE PHOSPHATASE 118 U/L 08/11/2015 Comp. Metabolic Panel (14) 75931 TOTAL BILIRUBIN <0.3 mg/dL 08/11/2015 Comp. Metabolic Panel (14) 29591 SGOT (AST) 41 U/L 08/11/2015 Comp. Metabolic Panel (14) 87857 SGPT (ALT) 55 U/L 08/11/2015 Comp. Metabolic Panel (14) 18560 eGFR (mL/min/1.73m2) >60 08/11/2015 Comp. Metabolic Panel (14) 52813 08/11/2015 Cbc With Differential/Platelet 04881 WBC 11.76 thou/uL 08/11/2015 Cbc With Differential/Platelet 80151 RBC 4.98 mil/uL 08/11/2015 Cbc With Differential/Platelet 62444 HEMOGLOBIN 14.2 g/dL 08/11/2015 Cbc With Differential/Platelet 01808 HEMATOCRIT 46.7 % 08/11/2015 Cbc With Differential/Platelet 75514 MCV 93.8 fL 08/11/2015 Cbc With Differential/Platelet 86047 MCH 28.5 pg 08/11/2015 Cbc With Differential/Platelet 85851 MCHC 30.4 g/dL 08/11/2015 Cbc With Differential/Platelet 86348 RDW-CV 14.3 % 08/11/2015 Cbc With Differential/Platelet 49500 PLATELET COUNT 382 thou/uL 08/11/2015 Cbc With Differential/Platelet 36681 NEUTROPHIL % 67.3 % 08/11/2015 Cbc With Differential/Platelet 94499 LYMPHOCYTE % 24.0 % 08/11/2015 Cbc With Differential/Platelet 20875 MONOCYTE % 6.0 % 08/11/2015 Cbc With Differential/Platelet 65606 EOS % 1.6 % 08/11/2015 Cbc With Differential/Platelet 54384 BASO % 1.0 % 08/11/2015 Cbc With Differential/Platelet 11418 NEUTROPHIL ABS # 7.91 thou/uL 08/11/2015 Cbc With Differential/Platelet 14767 LYMPH ABS # 2.82 thou/uL 08/11/2015 Cbc With Differential/Platelet 39356 MONOCYTE ABS # 0.71 thou/uL 08/11/2015 Cbc With Differential/Platelet 16233 EOS ABS # 0.19 thou/uL 08/11/2015 Cbc With Differential/Platelet 52592 BASO ABS # 0.12 thou/uL 08/11/2015 Tsh 639788 TSH 3.220 uIU/mL 08/11/2015 Lipid Panel 80390 CHOLESTEROL 193 mg/dL 08/11/2015 Lipid Panel 02890 TRIGLYCERIDES 192 mg/dL 08/11/2015 Lipid Panel 04666 HDL 38 mg/dL 08/11/2015 Lipid Panel 25182 CHOLESTEROL/HDL 5.08 08/11/2015 Lipid Panel 67944 LDL (CALCULATED) 117 mg/dL 08/11/2015 Lipid Panel 74089 LDL/HDL 3.08 08/11/2015 Lipid Panel 04572 PHENOTYPE TYPE IV BORDERLINE 08/11/2015 Review of Systems System Result Effective Dates Constitutional No recent illness 07/18/2018 Constitutional No [...] Procedure Codes Date THER/PROPH/DIAG INJ SC/IM CPT-4: 11545 06/05/2018 ROCEPHIN, PER 250 MG CPT- 4: J0696 06/05/2018 REMOVAL OF SKIN TAGS <W/15 CPT-4: 05592 03/14/2018 FLU VAC NO PRSV 4 PRECIOUS 3 YRS+ CPT-4: 60951 03/14/2018 IMMUNIZATION ADMIN CPT- 4: 66470 03/14/2018 TRIAMCINOLONE ACET INJ NOS CPT-4: J3301 02/19/2018 THER/PROPH/DIAG INJ SC/IM CPT-4: 27003 02/19/2018 THER/PROPH/DIAG INJ SC/IM CPT-4: 00935 09/05/2017 TRIAMCINOLONE ACET INJ NOS CPT-4: J3301 09/05/2017 IMMUNIZATION ADMIN CPT- 4: 37527 04/24/2017 FLU VAC NO PRSV 4 PRECIOUS 3 YRS+ CPT-4: 76435 04/24/2017 DRAIN/INJECT JOINT/BURSA CPT-4: 52175 04/24/2017 TRIAMCINOLONE ACET INJ NOS CPT-4: J3301 04/24/2017 THER/PROPH/DIAG INJ SC/IM CPT-4: 60236 01/09/2017 TRIAMCINOLONE ACET INJ NOS CPT-4: J3301 01/09/2017 THER/PROPH/DIAG INJ SC/IM CPT-4: 66308 04/13/2016 Pneumococcal Polysaccharide Vaccine, 23-Valent, Ad CPT-4: 85611 04/13/2016 INJECT TRIGGER POINTS 3/> CPT-4: 43645 04/06/2016 TRIAMCINOLONE ACET INJ NOS CPT-4: J3301 04/06/2016 IMMUNIZATION ADMIN CPT- 4: 55605 03/30/2016 IIV4 FLU VACC NO PRESERV ID SNOMED CT: [id number] CPT-4: 52535 03/30/2016 TRIAMCINOLONE ACET INJ NOS CPT-4: J3301 02/28/2016 THER/PROPH/DIAG INJ SC/IM CPT-4: 72229 02/28/2016 TRIAMCINOLONE ACET INJ NOS CPT-4: J3301 08/20/2015 Vital Signs Date Vital 07/18/2018 Blood Pressure 1: 136/74 Code: 8480-6 [...] 1: 127 Code: 8480-6 BMI: 42.4 Code: 98201-6 Heart Rate 1: 78 bpm Height: 4'11" SpO2: 97% Weight: 210 lbs 03/26/2018 Blood Pressure 1: 128 Code: 8480-6 BMI: 43.0 Code: 70020-0 Heart Rate 1: 120 bpm Height: 4'11" SpO2: 97% Weight: 213 lbs 03/14/2018 Blood Pressure 1: 120 Code: 8480-6 BMI: 43.0 Code: 39796-7 Heart Rate 1: 114 bpm Height: 4'11" SpO2: 95% Weight: 213 lbs 03/07/2018 Blood Pressure 1: 132 Code: 8480-6 BMI: 43.8 Code: 73398-9 Heart Rate 1: 123 bpm Height: 4'11" [...] 1: 134/86 Code: 8480-6 BMI: 45.4 Code: 59287-5 Heart Rate 1: 108 bpm Height: 4'11" SpO2: 95% Weight: 225 lbs 06/07/2017 Blood Pressure 1: 13274 Code: 8480-6 Heart Rate 1: 99 bpm Height: 4'11" SpO2: 95% 04/24/2017 Blood Pressure 1: 132/8096 Code: 8480-6 BMI: 47.7 Code: 52913-3 Heart Rate 1: 96 bpm Height: 4'11" Weight: 236 lbs 01/09/2017 Blood Pressure 1: 122/74 Code: 8480-6 BMI: 46.0 Code: 91232-2 Heart Rate 1: 114 bpm Height: 4'11" SpO2: 98% Temperature: 37.1 (C) / 98.7 (F) Weight: 228 lbs 10/30/2016 Blood Pressure 1: 124 Code: 8480-6 BMI: 49.1 Code: 85789-3 Heart Rate 1: 90 bpm Height: 4'11" SpO2: 97% Weight: 243 lbs 10/09/2016 Blood Pressure 1: 124 Code: 8480-6 BMI: 49.3 Code: 96619-5 Heart Rate 1: 91 bpm Height: 4'11" SpO2: 98% Weight: 244 lbs 09/12/2016 Blood Pressure 1: 12880 Code: 8480-6 BMI: 49.1 Code: 42532-9 Heart Rate 1: 94 bpm Height: 4'11" SpO2: 95% Weight: 243 lbs 09/05/2016 Blood Pressure 1: 11874 Code: 8480-6 BMI: 49.1 Code: 27330-3 Heart Rate 1: 100 bpm Height: 4'11" SpO2: 97% Weight: 243 lbs 06/16/2016 Blood Pressure 1: 120/62 Code: 8480-6 BMI: 49.1 Code: 19354-5 Heart Rate 1: 100 bpm Height: 4'11" SpO2: 96% Temperature: 36.7 (C) / 98.0 (F) Weight: 243 lbs 06/13/2016 Blood Pressure 1: 120/70 Code: 8480-6 Heart Rate 1: 117 bpm SpO2: 97% 05/19/2016 Blood Pressure 1: 130/64 Code: 8480-6 BMI: 49.1 Code: 71215-0 Heart Rate 1: 101 bpm Height: 4'11" SpO2: 96% Weight: 243 lbs 05/08/2016 Blood Pressure 1: 12876 Code: 8480-6 Heart Rate 1: 119 bpm Height: SpO2: 97% Weight: 05/05/2016 Blood Pressure 1: 124 Code: 8480-6 BMI: 49.1 Code: 29875-9 Heart Rate 1: 75 bpm Height: 4'11" SpO2: 99% Weight: 243 lbs 04/10/2016 Blood Pressure 1: 140/80 Code: 8480-6 BMI: 49.7 Code: 76521-2 Heart Rate 1: 88 bpm Height: 4'11" SpO2: 95% Weight: 246 lbs 04/06/2016 Blood Pressure 1: 134/82 Code: 8480-6 BMI: 75.1 Code: 31049-4 Heart Rate 1: 72 bpm Height: 4' SpO2: 96% Weight: 246 lbs 03/08/2016 Blood Pressure 1: 126/72 Code: 8480-6 BMI: 49.7 Code: 08998-1 Heart Rate 1: 89 bpm Height: 4'11" SpO2: 97% Weight: 246 lbs 02/28/2016 Blood Pressure 1: 124/68 Code: 8480-6 BMI: 49.7 Code: 27220-9 Heart Rate 1: 89 bpm Height: 4'11" SpO2: 96% Weight: 246 lbs 01/18/2016 Blood Pressure 1: 142/78 Code: 8480-6 BMI: 48.9 Code: 47738-5 Heart Rate 1: 97 bpm Height: 4'11" SpO2: 97% Weight: 242 lbs 12/23/2015 Blood Pressure 1: 124/74 Code: 8480-6 BMI: 48.9 Code: 06448-8 Heart Rate 1: 106 bpm Height: 4'11" SpO2: 96% Weight: 242 lbs 12/16/2015 Blood Pressure 1: 116/82 Code: 8480-6 BMI: 48.3 Code: 16054-5 Heart Rate 1: 111 bpm Height: 4'11" SpO2: 97% Weight: 239 lbs 11/11/2015 Blood Pressure 1: 130/80 Code: 8480-6 BMI: 49.7 Code: 91881-0 Heart Rate 1: 105 bpm Height: 4'11" SpO2: 96% Weight: 246 lbs 10/27/2015 Blood Pressure 1: 122/70 Code: 8480-6 BMI: 49.5 Code: 82048-6 Heart Rate 1: 107 bpm Height: 4'11" SpO2: 96% Weight: 245 lbs 10/13/2015 Blood Pressure 1: 140/82 Code: 8480-6 BMI: 50.9 Code: 19923-2 Heart Rate 1: 111 bpm Height: 4'11" SpO2: 96% Weight: 252 lbs 10/05/2015 Blood Pressure 1: 118/70 Code: 8480-6 BMI: 51.1 Code: 27962-9 Heart Rate 1: 120 bpm Height: 4'11" SpO2: 97% Weight: 253 lbs 09/01/2015 Blood Pressure 1: 132/82 Code: 8480-6 BMI: 50.1 Code: 07776-8 Heart Rate 1: 110 bpm Height: 4'11" SpO2: 96% Weight: 248 lbs 08/20/2015 Blood Pressure 1: 132/78 Code: 8480-6 BMI: 51.7 Code: 34270-7 Heart Rate 1: 100 bpm Height: 4'11" Weight: 256 lbs 08/03/2015 Blood Pressure 1: 148/92 Code: 8480-6 BMI: 52.1 Code: 42262-3 Heart Rate 1: 100 bpm Height: 4'11" SpO2: 97% Weight: 258 lbs Functional Status No Functional Status data History of Present Illness Symptom Name Status Result Effective Date Notes Procedure Performed an excision of _ 07/18/2018 [...] specified surgical aftercare[ICD10: Z48.89] Gloria Hess MD, [facility] CPT-4: 67749 07/18/2018 [id number] EST. PATIENT, LEVEL III Diagnosis: Cellulitis of right axilla[ICD10: L03.111] Diagnosis: Diarrhea, unspecified[ICD10: R19.7] Gloria Hess MD, [facility] CPT- 4: 54496 06/28/2018 ([id number]) [id number] EST. PATIENT, LEVEL II Diagnosis: Cellulitis of right axilla[ICD10: L03.111] Tamy Hess MD, [facility] CPT-4: 51387 06/17/2018 [id number] EST. PATIENT, LEVEL III Diagnosis: Cellulitis of right axilla[ICD10: L03.111] Diagnosis: Type 2 diabetes mellitus with hyperglycemia[ICD10: E11.65] Gloria Hess MD, [facility] CPT-4: 31301 06/05/2018 68973 EST. PATIENT, LEVEL III Diagnosis: Gastro-esophageal reflux disease without esophagitis[ICD10: K21.9] Diagnosis: Other allergic rhinitis[ICD10: J30.89] Diagnosis: Cough[ICD10: R05] Gloria Hess MD, [facility] CPT-4: 50489 03/26/2018 ([id number]) 04599 EST. PATIENT, LEVEL III Diagnosis: Cough[ICD10: R05] Gloria Hess MD, [facility] CPT-4: 47947 03/14/2018 15209 EST. PATIENT, LEVEL IV Diagnosis: Acute laryngopharyngitis[ICD10: J06.0] Diagnosis: Other allergic rhinitis[ICD10: J30.89] Diagnosis: Cough[ICD10: R05] Gloria Hess MD, [facility] CPT-4: 74644 03/07/2018 [id number] EST. PATIENT, LEVEL IV Diagnosis: Acute bronchitis due to other specified organisms[ICD10: J20.8] Diagnosis: Acute laryngopharyngitis[ICD10: J06.0] Gloria Hess MD, [facility] CPT- 4: 46955 02/19/2018 83168 EST. PATIENT, LEVEL IV Diagnosis: Candidiasis of vulva and vagina[ICD10: B37.3] Diagnosis: Rash and other nonspecific skin eruption[ICD10: R21] Gloria Hess MD, [facility] CPT-4: 05523 01/08/2018 45107 EST. PATIENT, LEVEL III Diagnosis: Sacrococcygeal disorders, not elsewhere classified[ICD10: M53.3] Diagnosis: Low back pain[ICD10: M54.5] Gloria Hess MD, [facility] CPT-4: 85187 11/23/2017 78054 EST. PATIENT, LEVEL III Diagnosis: Acute laryngopharyngitis[ICD10: J06.0] Diagnosis: Other allergic rhinitis[ICD10: J30.89] Diagnosis: Acute bronchitis due to other specified organisms[ICD10: J20.8] Gloria Hess MD, [facility] CPT-4: 88489 09/05/2017 55903 EST. PATIENT, LEVEL III Diagnosis: Pain in left foot[ICD10: M79.672] Diagnosis: Rash and other nonspecific skin eruption[ICD10: R21] Diagnosis: Candidiasis of vulva and vagina[ICD10: B37.3] Diagnosis: Localized edema[ICD10: R60.0] Diagnosis: Dyspnea, unspecified[ICD10: R06.00] Gloria Hess MD, [facility] CPT- 4: 48147 06/07/2017 85137 EST. PATIENT, LEVEL III Diagnosis: Low back pain[ICD10: M54.5] Diagnosis: Sacroiliitis, not elsewhere classified[ICD10: M46.1] Diagnosis: Pain in left foot[ICD10: M79.672] Diagnosis: VACCIN FOR INFLUENZA[ICD10: Z23] Gloria Hess MD, [facility] CPT-4: 99545 04/24/2017 27986 EST. PATIENT, LEVEL III Diagnosis: Acute suppurative otitis media without spontaneous rupture of ear drum, right ear[ICD10: H66.001] Diagnosis: Other allergic rhinitis[ICD10: J30.89] Gloria Hess MD, [facility] CPT- 4: 02502 01/09/2017 79219 EST. PATIENT, LEVEL IV Diagnosis: Candidiasis of vulva and vagina[ICD10: B37.3] Diagnosis: Type 2 diabetes mellitus with hyperglycemia[ICD10: E11.65] Gloria Hess MD, [facility] CPT-4: 57834 10/30/2016 79407 EST. PATIENT, LEVEL III Diagnosis: Candidiasis of vulva and vagina[ICD10: B37.3] Diagnosis: Type 2 diabetes mellitus with hyperglycemia[ICD10: E11.65] Gloria Hess MD, [facility] CPT-4: 06525 10/09/2016 16099 EST. PATIENT, LEVEL IV Diagnosis: Umbilical hernia without obstruction or gangrene[ICD10: K42.9] Gloria Hess MD, [facility] CPT-4: 82021 09/12/2016 83180 EST. PATIENT, LEVEL III Diagnosis: Epigastric pain[ICD10: R10.13] Diagnosis: Candidiasis of vulva and vagina[ICD10: B37.3] Diagnosis: Type 2 diabetes mellitus with hyperglycemia[ICD10: E11.65] Gloria Hess MD, [facility] CPT-4: 59417 09/05/2016 90383 EST. PATIENT, LEVEL III Diagnosis: Acute laryngopharyngitis[ICD10: J06.0] Diagnosis: Other allergic rhinitis[ICD10: J30.89] Gloria Hess MD, [facility] CPT- 4: 54967 06/16/2016 11790 EST. PATIENT, LEVEL III Diagnosis: Type 2 diabetes mellitus with hyperglycemia[ICD10: E11.65] Diagnosis: Other obesity due to excess calories[ICD10: E66.09] Gloria Hess MD, [facility] CPT-4: 21575 06/13/2016 63035 EST. PATIENT, LEVEL III Diagnosis: Type 2 diabetes mellitus with hyperglycemia[ICD10: E11.65] Diagnosis: Other obesity due to excess calories[ICD10: E66.09] Gloria Hess MD, [facility] CPT-4: 10789 05/19/2016 68494 EST. PATIENT, LEVEL III Diagnosis: Type 2 diabetes mellitus with hyperglycemia[ICD10: E11.65] Diagnosis: Other obesity due to excess calories[ICD10: E66.09] Gloria Hess MD, [facility] CPT-4: 89833 05/08/2016 90080 EST. PATIENT, LEVEL III Diagnosis: Type 2 diabetes mellitus without complications[ICD10: E11.9] Gloria Hess MD [facility] CPT-4: 47504 05/05/2016 06762 EST. PATIENT, LEVEL III Diagnosis: Pain in right shoulder[ICD10: M25.511] Gloria Hess MD [facility] CPT- 4: 79865 04/10/2016 01875 EST. PATIENT, LEVEL III Diagnosis: Pain in right shoulder[ICD10: M25.511] Diagnosis: Other muscle spasm[ICD10: M62.838] Diagnosis: Type 2 diabetes mellitus without complications[ICD10: E11.9] Gloria Hess MD [facility] CPT-4: 66320 04/06/2016 48919 EST. PATIENT, LEVEL IV Diagnosis: Acute bronchitis due to other specified organisms[ICD10: J20.8] Diagnosis: Other acute sinusitis[ICD10: J01.80] Diagnosis: Acne vulgaris[ICD10: L70.0] Diagnosis: Morbid (severe) obesity due to excess calories[ICD10: E66.01] Gloria Hess MD, [facility] CPT-4: 03113 03/08/2016 19035 EST. PATIENT, LEVEL IV Diagnosis: Other acute sinusitis[ICD10: J01.80] Diagnosis: Localized enlarged lymph nodes[ICD10: R59.0] Gloria Hess MD, [facility] CPT-4: 78884 02/28/2016 86164 EST. PATIENT, LEVEL III Diagnosis: Type 2 diabetes mellitus without complications[ICD10: E11.9] Gloria Hess MD, [facility] CPT-4: 71715 01/18/2016 ([id number]) PREV VISIT EST AGE 40-64 Diagnosis: Encounter for gynecological examination (general) (routine) without abnormal findings[ICD10: Z01.419] Diagnosis: Excessive and frequent menstruation with irregular cycle[ICD10: N92.1] Gloria Hess MD, [facility] CPT-4: 72849 12/23/2015 81532 EST. PATIENT, LEVEL III Diagnosis: Type 2 diabetes mellitus without complications[ICD10: E11.9] Gloria Hess MD, [facility] CPT-4: 52670 12/16/2015 26614 EST. PATIENT, LEVEL III Diagnosis: Type 2 diabetes mellitus without complications[ICD10: E11.9] Diagnosis: Other obesity due to excess calories[ICD10: E66.09] Gloria Hess MD, [facility] CPT-4: 48686 11/11/2015 21858 EST. PATIENT, LEVEL III Diagnosis: Type 2 diabetes mellitus without complications[ICD10: E11.9] Diagnosis: Other obesity due to excess calories[ICD10: E66.09] Gloria Hess MD, [facility] CPT-4: 22007 10/27/2015 18268 EST. PATIENT, LEVEL III Diagnosis: Type 2 diabetes mellitus without complications[ICD10: E11.9] Diagnosis: Other obesity due to excess calories[ICD10: E66.09] Diagnosis: Other insomnia[ICD10: G47.09] Gloria Hess MD, [facility] CPT-4: 40742 10/13/2015 42636 EST. PATIENT, LEVEL IV Diagnosis: Acute recurrent maxillary sinusitis[ICD10: J01.01] Diagnosis: Allergic rhinitis due to pollen[ICD10: J30.1] Diagnosis: Other obesity due to excess calories[ICD10: E66.09] Gloria Hess MD, [facility] CPT-4: 55359 10/05/2015 86495 EST. PATIENT, LEVEL IV Diagnosis: Polycystic ovarian syndrome[ICD10: E28.2] Diagnosis: Other skin changes[ICD10: R23.8] Diagnosis: Other abnormal glucose[ICD10: R73.09] Gloria Hess MD, [facility] CPT- 4: 61513 09/01/2015 69496 EST. PATIENT, LEVEL IV Diagnosis: Acute recurrent maxillary sinusitis[ICD10: J01.01] Diagnosis: Morbid (severe) obesity due to excess calories[ICD10: E66.01] Diagnosis: Essential (primary) hypertension[ICD10: I10] Diagnosis: Allergic rhinitis due to pollen[ICD10: J30.1] Gloria Hess MD, [facility] CPT-4: 84702 08/20/2015 ([id number]) OFFICE VISIT, NEW - LEVEL 4 Diagnosis: Essential (primary) hypertension[ICD10: I10] Diagnosis: Obstructive sleep apnea (adult) (pediatric)[ICD10: G47.33] Diagnosis: Other insomnia[ICD10: G47.09] Diagnosis: Snoring[ICD10: R06.83] Diagnosis: Morbid (severe) obesity due to excess calories[ICD10: E66.01] Gloria Hess MD, [facility] CPT-4: 72342 08/03/2015 Plan of Care Planned Activity Notes Codes Status Date Appointment: Gloria Scott WPtel: [address] [place], [place] [phone] [place] (30 min) Complex 07/22/2018 Visit Plan: Hidradenitis suppurativa - post incision - wound healing well - continue to monitor Wound Instructions - Pt was instructed to keep the wound clean, wash with antibacterial soap, use triple antibiotic oi ntment, call if redness, pustular drainage, or any other acute concerns. 07/18/2018 Appointment: Gloria Scott WPtel: [address] [place], [place] [phone] [place] (30 min) Complex 07/18/2018 Patient Education: Patient Medication Summary Completed 07/18/2018 Referral: Roni Roberts pt will be notified by there office to schedule Initiated 07/03/2018 Care Plan: Referral Order SNOMED-CT : 174127812 Pending 07/01/2018 Visit Plan: Abscess/Cellulitis - The [...] stomach pain. 06/28/2018 Appointment: Gloria Scott WPtel: [address] [place], [place] [phone] (30 min) Complex 06/28/2018 Patient Education: Patient Medication Summary Completed 06/28/2018 Visit Plan: Cellulitis-right xezttl-sjjynzbd-spx bactroban ointment until healed completely-call with any concerns 06/17/2018 Appointment: Tamy Lugo WPtel: [facility]9 [phone] [place] (15 min) Moderate 06/17/2018 Patient [...] warmth, discharge. 06/05/2018 Appointment: Gloria Scott WPtel: [address] [place], [place] [phone] [place] (30 min) Complex 06/05/2018 Patient Education: Patient Medication Summary Completed 06/05/2018 Patient Education: Diabetes Completed 06/05/2018 Referral: Wilner [address] Referral Initiated 04/19/2018 Care Plan: Referral Order SNOMED-CT : [id number] Pending 03/27/2018 Visit Plan: Esophageal Reflux - [...] allergy spray. 03/26/2018 Appointment: Gloria Scott WPtel: [facility]2 [facility] [place] (15 min) Moderate 03/26/2018 Patient Education: Patient Medication Summary Completed 03/26/2018 Appointment: Gloria Scott WPtel: [facility]2 [facility] [place] (15 min) Moderate 03/25/2018 Visit Plan: [...] and bandaids. 03/14/2018 Appointment: Gloria Scott WPtel: [address] [place], [place] [address] (15 min) Moderate 03/14/2018 Patient Education: Patient [...] improve 03/07/2018 Appointment: Gloria Scott WPtel: [phone] [facility] [place] (15 min) Moderate 03/07/2018 Patient Education: Patient [...] worsen. 02/19/2018 Appointment: Gloria Scott WPtel: [phone] [facility] [place] (15 min) Moderate 02/19/2018 Patient Education: Patient [...] discharge. 01/08/2018 Appointment: Gloria Scott WPtel: [phone] [facility] (30 min) Complex 01/08/2018 Patient Education: Patient [...] acutely worsen. 09/05/2017 Appointment: Gloria Scott WPtel: [facility] (15 min) Moderate 09/05/2017 Patient Education: [...] send RX 06/07/2017 Appointment: Gloria Scott WPtel: [facility]8 [facility] (15 min) Moderate 06/07/2017 Patient Education: [...] of injection. 04/24/2017 Appointment: Gloria Scott WPtel: [facility] (30 min) Complex 04/24/2017 Patient Education: Patient Medication Summary Completed 04/24/2017 Appointment: Gloria Scott WPtel: [facility] (30 min) Complex 03/09/2017 Appointment: Gloria Scott WPtel: [facility]2 [facility] (30 min) Complex 02/13/2017 Visit Plan: [...] spray. 01/09/2017 Appointment: Gloria Scott WPtel: [phone] [facility] [place] (10 min) Simple 01/09/2017 Patient Education: Patient Medication Summary Completed 01/09/2017 Patient Education: Obesity Completed 01/09/2017 Visit Plan: Vaginal candidiasis - will send RX - pt is to notify clinic if symptoms do not improve, if they worsen, or with any questions or concerns. Diabetes Mellitus - Uncontrolled - Will refer to financial service representative - I have recommended for the [...] Mellitus - Uncontrolled - Will refer to financial service representative - I have recommended for the [...] glucose control. 10/09/2016 Appointment: Gloria Scott WPtel[facility] ([facility] 10/09/2016 Patient Education: Patient Medication Summary Completed 10/09/2016 Patient Education: Obesity Completed 10/09/2016 Referral: Roni Roberts Referral Completed 09/18/2016 Care Plan: CT ABD & PELV W/CONTRAST LOINC : 93582-2 Pending 09/13/2016 Care Plan: Referral Order SNOMED-CT : [id number] Pending 09/13/2016 Visit Plan: Ongoing abdominal pain/hernia - will send RX - will refer - pt is to notify clinic if symptoms do not improve, if they worsen, or with any questions or concerns. 09/12/2016 Appointment: [phone] [facility] ([facility] min) Complex 09/12/2016 Patient Education: Patient Medication Summary Completed 09/12/2016 Patient Education: Obesity Completed 09/12/2016 Care Plan: Referral Order SNOMED-CT : 970227865 Pending 09/12/2016 Visit Plan: Ongoing abdominal/epigastric pain [...] glucose control. 09/05/2016 Appointment: Gloria Scott WPtel: [address] [place], [place] [address] (30 min) Complex 09/05/2016 Patient Education: Patient [...] [phone] [facility] [place] (10 min) Simple 06/16/2016 Patient Education: [...] check. 06/13/2016 Appointment: Gloria Scott WPtel: [phone] [facility] (30 min) Complex 06/13/2016 Patient Education: Patient Medication Summary Completed 06/13/2016 Patient Education: Obesity Completed 06/13/2016 Appointment: Gloria Scott WPtel: [phone] [facility] [place] (30 min) Complex 06/08/2016 Visit [...] check. 05/19/2016 Appointment: Tamy Lugo WPtel: [phone] [phone] [place] (30 min) Complex 05/19/2016 Patient [...] weight check. 05/08/2016 Appointment: Gloria Scott WPtel: [facility] [place] (15 min) Moderate 05/08/2016 Patient Education: [...] morning. 05/05/2016 Appointment: T[facility] Lugo [facility]el[facility] [phone] [phone] [place] (15 min) Moderate 05/05/2016 Patient Education: Patient Medication Summary Completed 05/05/2016 Patient Education: Obesity Completed 05/05/2016 Care Plan: Comp Metabolic Pending 05/05/2016 Appointment: Jocelyn Hess WPtel[facility] [facility] 04/17/2016 Appointment: Injection 04/13/2016 Patient Education: Patient Medication Summary Completed 04/13/2016 Visit Plan: Right shoulder pain - will refer to PT - The pt is to use prn antiinflammatories to manage acute pain. The patient is to call the office if the pain is worsening or does not improve. 04/10/2016 Appointment: Gloria Scott WPtel: [phone] [facility] (30 min) Complex 04/10/2016 Patient Education: [...] control. 04/06/2016 Appointment: Gloria Scott WPtel: [phone] [facility] (15 min) Moderate 04/06/2016 Patient Education: [...] order [place] 02/28/2016 Appointment: Gloria Scott WPtel: [facility] (30 min) Complex [...] or prn. 12/23/2015 Appointment: Gloria Scott WPtel: [facility] [facility] 12/23/2015 [...] ADD TO BLOOD IN THE LAB. [facility] : 01603-9 Pending 08/13/2015 Visit Plan: Hypertension - uncontrolled [...] Referral: Roni Roberts Referral Completed [facility] Referral Initiated Referral: Roni Roberts Referral Initiated [...] improved, or if symptoms acutely worsen. . Abscess/Cellulitis - The patient was instructed [...] and 5 units in the morning. . Vaginal candidiasis - will send RX - pt is to notify clinic if symptoms do not improve, if they worsen, or with any questions or concerns. Diabetes Mellitus - Uncontrolled - Will refer to financial service representative - I have recommended for the [...] Mellitus - Uncontrolled - Will refer to financial service representative - I have recommended for the [...] in the nasal steroid allergy spray. . Allergies - chronic - recommended pt [...] clinic if symptoms do not improve . PCOS and skin changes - pt currently on Metformin, but states that it is causing some GI upset and diarrhea - will change to Invokamet, will refer to Dr. [facility]. Will have pt repeat her liver enzymes on 09/09/15. Will have pt recheck a Hgb A1C after 3 months of being on Invokamet. . Hidradenitis suppurativa - post incision - wound healing well - continue to monitor Wound Instructions - Pt was instructed to keep the wound clean, wash with antibacterial soap, use triple antibiotic ointment, call if redness, pustular drainage, or any other acute concerns. . Bronchitis - acute case of bronchitis [...] improvement. . Diabetes Mellitus - Uncontrolled - I [...] reduce peripheral edema. . Diabetes Mellitus - Uncontrolled - per [...] with any questions or concerns. . Cellulitis-right zvruya-vdzhkvbr-qjc bactroban ointment until healed completely-call with any [...] Areas dressed wtih neosporin and bandaids. . Diabetes Mellitus - Uncontrolled - per [...]
[2018-12-17 04:00] VITALS: BP 123/75
--- OUTSIDE RECORDS SUMMARY | 2018-12-17 04:01 | XMS REPORT | CCD ---
Author Author Gloria Scott MD, [facility] Address [address] [place] [address] Phone Care Team Providers Care Operations Support Specialist Name Role Phone PP Unavailable CCM Unavailable Summary Purpose Interface Exchange Insurance Providers Payer name Policy type / Coverage type Covered republican ID Effective Begin Date Effective End Date [facility] Commercial Insurance [id number] Unknown Unknown Family history Father Diagnosis Age At Onset Hypertension Unknown Arthritis Unknown Mother Diagnosis Age At Onset Arthritis Unknown Hyperlipidemia Unknown Daughter Diagnosis Age At Onset Asthma Unknown Social History Social History Element Codes Description Effective Dates Marital status Unknown Darin 08/03/2015 Number of children Unknown 1 08/03/[address]: 6580747 Quit less than 5 years ago 08/03/2015 [...] hydrocodone 7.5 mg-acetaminophen 325 mg tablet RxNorm: 229127 1 Tablet(s) PO Q4H as needed 07/18/2018 08/16/2018 Active promethazine 25 mg tablet RxNorm: 751048 TABLET(S) TAKE ONE TABLET BY MOUTH EVERY 6 TO 8 HOURS NEEDED 07/05/2018 No Stop Date Active hyoscyamine 0.125 mg sublingual tablet RxNorm: 3463432 1 Tablet(s) SL TID as needed diarrhea 06/28/2018 07/07/2018 Inactive mupirocin 2 % topical ointment RxNorm: 210495 1 Application TOP BID 06/17/2018 06/26/2018 Inactive mupirocin 2 % topical ointment RxNorm: 351034 1 Application TOP BID 06/05/2018 No Stop Date Active Keflex 500 mg capsule RxNorm: 747927 1 Capsule(s) PO TID 06/05/2018 06/11/2018 Inactive ceftriaxone 500 mg solution for injection RxNorm: 4826557 Inj 06/05/2018 06/05/2018 Inactive Diflucan 150 mg tablet RxNorm: 732434 1 Tablet(s) PO daily 06/05/2018 07/02/2018 Inactive Protonix 40 mg tablet,delayed release RxNorm: 248332 1 Tablet(s) PO BID x 1 week then daily 03/26/2018 No Stop Date Active Phenergan with Codeine Syrup RxNorm: 5-10 ML PO QID as needed cough 03/19/2018 No Stop Date Active promethazine 25 mg tablet RxNorm: 472459 Tablet(s) TAKE ONE TABLET BY MOUTH EVERY 6 TO 8 HOURS NEEDED 03/15/2018 07/04/2018 Inactive Singulair 10 mg tablet RxNorm: 966678 1 Tablet(s) PO daily 03/14/2018 04/12/2018 Inactive metoprolol succinate ER 100 mg tablet,extended release 24 hr RxNorm: 357834 1 Tablet(s) PO daily 03/07/2018 04/05/2018 Inactive Zithromax Z-Rashid 250 mg tablet RxNorm: 527308 1 Tablet(s) PO UD 03/07/2018 03/07/2018 Inactive prednisone 20 mg tablet RxNorm: 303542 2 Tablet(s) PO daily 03/07/2018 03/11/2018 Inactive albuterol sulfate 2.5 mg/3 mL (0.083 %) solution for nebulization RxNorm: 372545 3 Milliliter(s) INH Q4-6H as needed dyspnea 02/19/2018 No Stop Date Active Diflucan 150 mg tablet RxNorm: 752159 Tablet(s) TAKE ONE TABLET BY MOUTH ONCE DAILY FOR 7 DAYS THEN TAKE ONE TABLET BY MOUTH ONCE A WEEK 02/19/2018 06/04/2018 Inactive Levaquin 500 mg tablet RxNorm: 668185 1 Tablet(s) PO daily 02/19/2018 02/25/2018 Inactive prednisone 20 mg tablet RxNorm: 436859 2 Tablet(s) PO daily 02/19/2018 02/23/2018 Inactive Kenalog 40 mg/mL suspension for injection RxNorm: 0099548 15. Milliliter(s) Inj 02/19/2018 02/19/2018 Inactive hydrocodone 7.5 mg-acetaminophen 325 mg tablet RxNorm: 529973 1 Tablet(s) PO Q4H as needed 02/05/2018 03/06/2018 Inactive clindamycin HCl 300 mg capsule RxNorm: 380518 1 Capsule(s) PO TID 01/09/2018 01/15/2018 Inactive promethazine 25 mg tablet RxNorm: 671826 Tablet(s) TAKE ONE TABLET BY MOUTH EVERY 6 TO 8 HOURS NEEDED 01/08/2018 03/14/2018 Inactive Diflucan 150 mg tablet RxNorm: 931801 Tablet(s) TAKE ONE TABLET BY MOUTH ONCE DAILY FOR 7 DAYS THEN TAKE ONE TABLET BY MOUTH ONCE A WEEK 01/08/2018 02/18/2018 Inactive Bactrim DS 800 mg-160 mg tablet RxNorm: 531602 1 Tablet(s) PO BID 01/08/2018 01/17/2018 Inactive prednisone 20 mg tablet RxNorm: 659269 2 Tablet(s) PO daily 11/23/2017 11/27/2017 Inactive Zithromax Z-Rashid 250 mg tablet RxNorm: 320201 1 Tablet(s) PO UD 09/05/2017 02/11/2018 Inactive Kenalog 40 mg/mL suspension for injection RxNorm: 6338920 Milliliter(s) Inj 09/05/2017 09/05/2017 Inactive prednisone 20 mg tablet RxNorm: 904997 2 Tablet(s) PO daily 09/05/2017 09/09/2017 Inactive ibuprofen 800 mg tablet RxNorm: 559198 1 Tablet(s) PO TID 07/27/2017 02/21/2018 Inactive metoprolol succinate ER 100 mg tablet,extended release 24 hr RxNorm: 832887 TAKE ONE TABLET BY MOUTH ONCE DAILY 06/20/2017 No Stop Date Active alprazolam 0.5 mg tablet RxNorm: 547302 1 Tablet(s) PO Q8 as needed 06/20/2017 07/09/2017 Inactive Zithromax Z-Rashid 250 mg tablet RxNorm: 425279 1 Tablet(s) PO UD 06/15/2017 07/25/2017 Inactive Xopenex HFA 45 mcg/actuation aerosol inhaler RxNorm: 453876 INHALE ONE PUFF INTO LUNGS NEEDED 06/13/2017 07/14/2017 Inactive Xopenex 1.25 mg/3 mL solution for nebulization RxNorm: 585011 Milliliter(s) USE ONE VIAL IN NEBULIZER THREE TIMES DAILY 06/08/2017 No Stop Date Active Flovent HFA 44 mcg/actuation aerosol inhaler RxNorm: 865033 2 Puff(s) INH BID 06/08/2017 No Stop Date Active potassium chloride ER 10 mEq tablet,extended release RxNorm: 903370 1 Tablet(s) PO daily 06/08/2017 06/10/2017 Inactive Lasix 20 mg tablet RxNorm: 900936 1 Tablet(s) PO daily 06/08/2017 06/10/2017 Inactive Xopenex HFA 45 mcg/actuation aerosol inhaler RxNorm: 851943 INHALE ONE PUFF INTO LUNGS NEEDED 06/08/2017 06/12/2017 Inactive triamcinolone acetonide 0.025 % topical cream RxNorm: 8578099 1 Application TOP BID 06/07/2017 No Stop Date Active ibuprofen 800 mg tablet RxNorm: 558356 1 Tablet(s) PO TID 06/07/2017 07/06/2017 Inactive cyclobenzaprine 5 mg tablet RxNorm: 722910 1/2 Tablet(s) PO TID as needed muscle spasms 05/28/2017 06/01/2017 Inactive Diflucan 150 mg tablet RxNorm: 511035 TAKE ONE TABLET BY MOUTH ONCE DAILY FOR 7 DAYS THEN TAKE ONE TABLET BY MOUTH ONCE A WEEK 05/28/2017 01/07/2018 Inactive bumetanide 1 mg tablet RxNorm: 609343 TAKE ONE TABLET BY MOUTH TWICE DAILY 05/25/2017 No Stop Date Active meloxicam 7.5 mg tablet RxNorm: 654708 1 Tablet(s) PO daily as needed 05/25/2017 07/23/2017 Inactive Xopenex 1.25 mg/3 mL solution for nebulization RxNorm: 771612 USE ONE VIAL IN NEBULIZER THREE TIMES DAILY 05/25/2017 06/07/2017 Inactive Protonix 40 mg tablet,delayed release RxNorm: 505633 1 Tablet(s) PO daily 05/08/2017 11/03/2017 Inactive Protonix 40 mg tablet,delayed release RxNorm: 217041 1 Tablet(s) PO daily 05/04/2017 05/03/2017 Inactive Protonix 40 mg tablet,delayed release RxNorm: 265528 1 Tablet(s) PO daily 05/04/2017 05/07/2017 Inactive meloxicam 7.5 mg tablet RxNorm: 015768 1 Tablet(s) PO daily as needed 04/25/2017 04/24/2017 Inactive meloxicam 7.5 mg tablet RxNorm: 053448 1 Tablet(s) PO daily as needed 04/25/2017 05/04/2017 Inactive promethazine 25 mg tablet RxNorm: 010715 TAKE ONE TABLET BY MOUTH EVERY 6 TO 8 HOURS NEEDED 04/25/2017 01/07/2018 Inactive Kenalog 40 mg/mL suspension for injection RxNorm: 9402106 1 Milliliter(s) Inj 04/24/2017 04/24/2017 Inactive cyclobenzaprine 5 mg tablet RxNorm: 711086 1/2 Tablet(s) PO TID as needed muscle spasms 04/24/2017 04/28/2017 Inactive Xopenex HFA 45 mcg/actuation aerosol inhaler RxNorm: 839994 INHALE ONE PUFF INTO LUNGS NEEDED 03/30/2017 04/14/2017 Inactive Humalog KwikPen 200 unit/mL (3 mL) subcutaneous RxNorm: 1130619 INJECT 35 UNITS SUBCUTANEOUSLY BEFORE MEAL(S) 03/30/2017 06/05/2017 Inactive promethazine 25 mg tablet RxNorm: 487686 Tablet(s) TAKE ONE TABLET BY MOUTH EVERY 6 TO 8 HOURS NEEDED 03/12/2017 03/26/2017 Inactive cyclobenzaprine 10 mg tablet RxNorm: 944355 TAKE ONE TABLET BY MOUTH ONCE DAILY NEEDED 03/06/2017 03/15/2017 Inactive lidocaine 5 % topical patch RxNorm: 0306293 USE ONE PATCH TOPICALLY DAILY. 12 HOURS ON AND THEN 12 HOURS OFF. 03/06/2017 03/15/2017 Inactive Humalog KwikPen 200 unit/mL (3 mL) subcutaneous RxNorm: 6358837 INJECT 35 UNITS SUBCUTANEOUSLY BEFORE MEAL(S) 02/20/2017 03/25/2017 Inactive promethazine 25 mg tablet RxNorm: 496680 Tablet(s) TAKE ONE TABLET BY MOUTH EVERY 6 TO 8 HOURS NEEDED 02/20/2017 03/06/2017 Inactive Xopenex HFA 45 mcg/actuation aerosol inhaler RxNorm: 538850 INHALE ONE PUFF INTO LUNGS NEEDED 02/20/2017 03/07/2017 Inactive bumetanide 1 mg tablet RxNorm: 263451 TAKE ONE TABLET BY MOUTH TWICE DAILY 02/15/2017 05/15/2017 Inactive bumetanide 1 mg tablet RxNorm: 622246 TAKE ONE TABLET BY MOUTH TWICE DAILY 01/15/2017 02/13/2017 Inactive metoprolol succinate ER 100 mg tablet,extended release 24 hr RxNorm: 438823 TAKE ONE TABLET BY MOUTH ONCE DAILY 01/11/2017 06/19/2017 Inactive Zithromax Z-Rashid 250 mg tablet RxNorm: 960524 1 Tablet(s) PO UD 01/09/2017 03/13/2017 Inactive meclizine 25 mg tablet RxNorm: 154563 1 Tablet(s) PO TID as needed 01/09/2017 01/18/2017 Inactive Kenalog 40 mg/mL suspension for injection RxNorm: 1289393 Milliliter(s) Inj 01/09/2017 01/09/2017 Inactive promethazine 25 mg tablet RxNorm: 815947 Tablet(s) TAKE ONE TABLET BY MOUTH EVERY 6 TO 8 HOURS NEEDED 12/29/2016 01/12/2017 Inactive Voltaren 1 % topical gel RxNorm: 310441 APPLY TOPICALLY TO AFFECTED AREA TWICE DAILY 12/25/2016 01/13/2017 Inactive cyclobenzaprine 10 mg tablet RxNorm: 085354 TAKE ONE TABLET BY MOUTH NEEDED 12/22/2016 12/31/2016 Inactive lidocaine 5 % topical patch RxNorm: 8907630 USE ONE PATCH TOPICALLY DAILY. 12 HOURS ON AND THEN 12 HOURS OFF. 12/22/2016 12/31/2016 Inactive hydrocodone 7.5 mg-acetaminophen 325 mg tablet RxNorm: 367574 1 Tablet(s) PO Q4H as needed 12/22/2016 01/20/2017 Inactive bumetanide 1 mg tablet RxNorm: 912478 TAKE ONE TABLET BY MOUTH TWICE DAILY 12/17/2016 01/14/2017 Inactive promethazine 25 mg tablet RxNorm: 909517 Tablet(s) TAKE ONE TABLET BY MOUTH EVERY 6 TO 8 HOURS NEEDED 11/16/2016 12/15/2016 Inactive spironolactone 50 mg tablet RxNorm: 832818 TAKE ONE TABLET BY MOUTH TWICE DAILY 11/15/2016 05/13/2017 Inactive Basaglar KwikPen 100 unit/mL (3 mL) subcutaneous RxNorm: 9715683 Unit(s) INJECT 35 UNITS IN THE MORNING AND 50 UNITS IN THE EVENING SUBCUTANEOUSLY 11/15/2016 03/14/2017 Inactive cyclobenzaprine 10 mg tablet RxNorm: 655660 TAKE ONE TABLET BY MOUTH NEEDED 11/15/2016 12/04/2016 Inactive lidocaine 5 % topical patch RxNorm: 5288273 1 Patch TOP daily . 12 HOURS ON, 12 HOURS OFF 11/15/2016 12/04/2016 Inactive lidocaine 4 % topical patch RxNorm: 2105866 1 Patch TOP on for 12 hours and off for 12 hours 11/14/2016 11/14/2016 Inactive promethazine 25 mg tablet RxNorm: 617354 TAKE ONE TABLET BY MOUTH EVERY 6 TO 8 HOURS NEEDED 11/14/2016 11/15/2016 Inactive Basaglar KwikPen 100 unit/mL (3 mL) subcutaneous RxNorm: 0705101 INJECT 35 UNITS IN THE MORNING AND 50 UNITS IN THE EVENING SUBCUTANEOUSLY 11/14/2016 11/14/2016 Inactive cyclobenzaprine 10 mg tablet RxNorm: 907893 TAKE ONE TABLET BY MOUTH NEEDED 11/14/2016 11/14/2016 Inactive spironolactone 50 mg tablet RxNorm: 067005 TAKE ONE TABLET BY MOUTH TWICE DAILY 11/14/2016 11/14/2016 Inactive Diflucan 150 mg tablet RxNorm: 449107 1 Tablet(s) PO as needed prophylactic after sexual intercourse 10/30/2016 No Stop Date Active hydrocodone 7.5 mg-acetaminophen 325 mg tablet RxNorm: 036963 1 Tablet(s) PO Q4H as needed 10/30/2016 11/28/2016 Inactive clotrimazole 100 mg vaginal tablet RxNorm: 602915 1 Tablet(s) VAG QW 10/30/2016 11/28/2016 Inactive Humalog KwikPen 200 unit/mL (3 mL) subcutaneous RxNorm: 3773667 35 Unit(s) SQ AC 10/30/2016 02/19/2017 Inactive QS 30 day supply Bydureon 2 mg/0.65 mL subcutaneous pen injector RxNorm: 4058767 2 Milligram(s) SQ QW 10/30/2016 11/28/2016 Inactive Basaglar KwikPen 100 unit/mL (3 mL) subcutaneous RxNorm: 0819711 Unit(s) SQ 35 units in the morning and 50 units in the evening 10/30/2016 11/13/2016 Inactive QS 30 day supply cyclobenzaprine 10 mg tablet RxNorm: 765289 TAKE ONE TABLET BY MOUTH NEEDED 10/27/2016 11/05/2016 Inactive Diflucan 150 mg tablet RxNorm: 005882 1 Tablet(s) PO daily x 7 days then once a week 10/27/2016 10/29/2016 Inactive promethazine 25 mg tablet RxNorm: 056442 TAKE ONE TABLET BY MOUTH EVERY 6 TO 8 HOURS NEEDED 10/27/2016 11/10/2016 Inactive Diflucan 150 mg tablet RxNorm: 745023 1 Tablet(s) PO daily x 7 days then once a week 10/09/2016 10/15/2016 Inactive Diflucan 150 mg tablet RxNorm: 875444 1 Tablet(s) PO daily 09/20/2016 09/26/2016 Inactive Cipro 500 mg tablet RxNorm: 899745 1 Tablet(s) PO BID 09/12/2016 09/21/2016 Inactive Flagyl 500 mg tablet RxNorm: 469885 1 Tablet(s) PO TID 09/12/2016 09/21/2016 Inactive Diflucan 150 mg tablet RxNorm: 096848 1 Tablet(s) PO daily 09/06/2016 09/12/2016 Inactive hydrocodone 7.5 mg-acetaminophen 325 mg tablet RxNorm: 385822 1 Tablet(s) PO Q4H as needed 07/12/2016 08/10/2016 Inactive Xopenex 1.25 mg/3 mL solution for nebulization RxNorm: 902370 3 Milliliter(s) INH TID 06/16/2016 05/24/2017 Inactive cefdinir 300 mg capsule RxNorm: 991456 1 Capsule(s) PO BID 06/16/2016 06/25/2016 Inactive Mobic 7.5 mg tablet RxNorm: 293842 1 Tablet(s) PO daily 06/16/2016 06/25/2016 Inactive Levaquin 500 mg tablet RxNorm: 439970 1 Tablet(s) PO daily 06/16/2016 06/22/2016 Inactive cyclobenzaprine 10 mg tablet RxNorm: 709416 1 Tablet(s) PO PRN as needed 06/14/2016 06/23/2016 Inactive promethazine 25 mg tablet RxNorm: 875679 TAKE ONE TABLET BY MOUTH EVERY 6 TO 8 HOURS NEEDED 06/14/2016 06/28/2016 Inactive Xopenex HFA 45 mcg/actuation aerosol inhaler RxNorm: 651315 1 Puff(s) INH PRN 06/14/2016 07/15/2016 Inactive pen needle, diabetic 32 gauge x 5/16" RxNorm: 1 use Miscellaneous AC & HS 06/13/2016 No Stop Date Active QS 30 day supply Humalog KwikPen 200 unit/mL (3 mL) subcutaneous RxNorm: 6013771 10 Unit(s) SQ AC 06/13/2016 10/29/2016 Inactive QS 30 day supply Basaglar KwikPen 100 unit/mL (3 mL) subcutaneous RxNorm: 2695651 22 units in the morning and 35 in the evening. Unit(s) SQ 06/13/2016 10/29/2016 Inactive QS 30 day supply Tivorbex 20 mg capsule RxNorm: 7538043 1 Capsule(s) PO TID as needed 06/13/2016 06/13/2016 Inactive metoprolol succinate ER 100 mg tablet,extended release 24 hr RxNorm: 403289 TAKE ONE TABLET BY MOUTH ONCE DAILY 06/13/2016 10/10/2016 Inactive hydrocodone 7.5 mg-acetaminophen 325 mg tablet RxNorm: 191936 1 Tablet(s) PO Q4H as needed 06/13/2016 07/11/2016 Inactive Voltaren 1 % topical gel RxNorm: 846107 APPLY TOPICALLY TO AFFECTED AREA TWICE DAILY 05/30/2016 07/08/2016 Inactive alprazolam 0.5 mg tablet RxNorm: 193335 1 Tablet(s) PO Q8 as needed 05/19/2016 No Stop Date Active cyclobenzaprine 10 mg tablet RxNorm: 901981 1 Tablet(s) PO PRN as needed 05/19/2016 05/28/2016 Inactive bumetanide 1 mg tablet RxNorm: 291160 TAKE ONE TABLET BY MOUTH TWICE DAILY 05/19/2016 06/17/2016 Inactive Sprintec (28) 0.25 mg-35 mcg tablet RxNorm: 454362 1 Tablet(s) PO UD 05/08/2016 No Stop Date Active Lantus Solostar 100 unit/mL (3 mL) subcutaneous insulin pen RxNorm: 882741 Unit(s) SQ UD 15units qam 30 units qhs 05/08/2016 No Stop Date Active Humalog KwikPen 200 unit/mL (3 mL) subcutaneous RxNorm: 5768407 10 Unit(s) SQ AC 05/08/2016 06/12/2016 Inactive bumetanide 1 mg tablet RxNorm: 934322 TAKE ONE TABLET BY MOUTH TWICE DAILY 04/28/2016 05/18/2016 Inactive Voltaren 1 % topical gel RxNorm: 263057 1 Application TOP BID 04/28/2016 05/07/2016 Inactive cyclobenzaprine 10 mg tablet RxNorm: 842992 1 Tablet(s) PO PRN as needed 04/28/2016 05/07/2016 Inactive hydrocodone 7.5 mg-acetaminophen 325 mg tablet RxNorm: 106829 1 Tablet(s) PO Q4H as needed 04/18/2016 05/16/2016 Inactive Lantus Solostar 100 unit/mL (3 mL) subcutaneous insulin pen RxNorm: 141762 Unit(s) SQ UD 10 units QHS x5 days, if sugars are over 200 increase to 15 units x 5 days, if sugars over 200 increase to 20 units. 04/14/2016 05/07/2016 Inactive lidocaine 4 % topical patch RxNorm: 0703153 1 Patch TOP on for 12 hours and off for 12 hours 04/13/2016 11/13/2016 Inactive Voltaren 1 % topical gel RxNorm: 098059 1 Application TOP BID 04/10/2016 04/27/2016 Inactive metformin ER 500 mg 24 hr tablet,extended release RxNorm: 701671 1 Tablet(s) PO daily 04/06/2016 05/05/2016 Inactive Kenalog 40 mg/mL suspension for injection RxNorm: 4899051 1 Milliliter(s) Inj 04/06/2016 04/06/2016 Inactive cyclobenzaprine 10 mg tablet RxNorm: 041291 1 Tablet(s) PO PRN as needed 04/06/2016 04/27/2016 Inactive WelChol 3.75 gram oral powder packet RxNorm: 186205 1 packet PO daily 04/06/2016 07/04/2016 Inactive alprazolam 0.5 mg tablet RxNorm: 339013 1 Tablet(s) PO Q8 as needed 03/30/2016 06/19/2017 Inactive Levaquin 500 mg tablet RxNorm: 258652 1 Tablet(s) PO daily 03/30/2016 04/05/2016 Inactive metoprolol succinate ER 100 mg tablet,extended release 24 hr RxNorm: 192390 TAKE ONE TABLET BY MOUTH ONCE DAILY 03/16/2016 06/12/2016 Inactive Levaquin 500 mg tablet RxNorm: 355825 1 Tablet(s) PO daily 03/08/2016 03/14/2016 Inactive prednisone 20 mg tablet RxNorm: 151027 2 Tablet(s) PO daily 03/08/2016 03/12/2016 Inactive Xopenex HFA 45 mcg/actuation aerosol inhaler RxNorm: 348162 1 Puff(s) INH PRN 02/28/2016 06/13/2016 Inactive Phenergan with Codeine Syrup RxNorm: 5-10 ML PO QID as needed cough 02/28/2016 03/18/2018 Inactive Kenalog 40 mg/mL suspension for injection RxNorm: 2607147 1 Milliliter(s) Inj 02/28/2016 02/28/2016 Inactive Zithromax Z-Rashid 250 mg tablet RxNorm: 630929 1 Tablet(s) PO UD 02/28/2016 03/27/2016 Inactive alprazolam 0.5 mg tablet RxNorm: 013773 1 Tablet(s) PO Q8 as needed 02/24/2016 06/19/2017 Inactive glipizide 5 mg tablet RxNorm: 371761 1 Tablet(s) PO daily 01/18/2016 05/16/2016 Inactive Actos 15 mg tablet RxNorm: 690577 1 Tablet(s) PO daily 01/18/2016 02/16/2016 Inactive gabapentin 100 mg capsule RxNorm: 959187 1 Capsule(s) PO QHS 01/13/2016 03/12/2016 Inactive gabapentin 100 mg capsule RxNorm: 145350 1 Capsule(s) PO QHS 01/13/2016 01/12/2016 Inactive Bydureon 2 mg/0.65 mL subcutaneous pen injector RxNorm: 9669138 1 Milliliter(s) SQ QW 01/12/2016 01/11/2016 Inactive Bydureon 2 mg/0.65 mL subcutaneous pen injector RxNorm: 6190407 2/0.65ml Milligram(s) SQ QW 01/12/2016 05/16/2016 Inactive Bydureon 2 mg/0.65 mL subcutaneous pen injector RxNorm: 2621882 1 Milliliter(s) SQ QW 01/12/2016 01/11/2016 Inactive bumetanide 1 mg tablet RxNorm: 357970 TAKE ONE TABLET BY MOUTH TWICE DAILY 01/10/2016 04/08/2016 Inactive promethazine 25 mg tablet RxNorm: 962995 Tablet(s) Tablet(s) 1 Tablet(s) PO Q6-8H as needed 12/16/2015 04/13/2016 Inactive promethazine 25 mg tablet RxNorm: 820896 Tablet(s) 1 Tablet(s) PO Q6-8H as needed 12/10/2015 12/15/2015 Inactive Trulicity 0.75 mg/0.5 mL subcutaneous pen injector RxNorm: 5321391 INJECT ONE-HALF ML SUBCUTANEOUSLY ONCE A WEEK 12/10/2015 01/11/2016 Inactive glipizide 5 mg tablet RxNorm: 298497 1 Tablet(s) PO daily 12/10/2015 01/17/2016 Inactive bumetanide 1 mg tablet RxNorm: 203645 TAKE ONE TABLET BY MOUTH TWICE DAILY 12/10/2015 01/08/2016 Inactive promethazine 25 mg tablet RxNorm: 422301 Tablet(s) 1 Tablet(s) PO Q6-8H as needed 11/18/2015 12/09/2015 Inactive promethazine 25 mg tablet RxNorm: 837091 1 Tablet(s) PO Q6-8H as needed 11/16/2015 11/17/2015 Inactive glipizide 5 mg tablet RxNorm: 100298 1/2 Tablet(s) PO daily 11/16/2015 12/15/2015 Inactive promethazine 25 mg tablet RxNorm: 143641 Tablet(s) 1 Tablet(s) PO Q6-8H as needed 11/11/2015 12/10/2015 Inactive metoprolol tartrate 50 mg tablet RxNorm: 538448 1 Tablet(s) PO BID 11/11/2015 02/08/2016 Inactive Trulicity 0.75 mg/0.5 mL subcutaneous pen injector RxNorm: 4826441 .5 Milliliter(s) SQ QW 11/11/2015 01/11/2016 Inactive promethazine 25 mg tablet RxNorm: 868698 1 Tablet(s) PO Q6-8H as needed 10/28/2015 11/10/2015 Inactive nystatin 100,000 unit/gram topical cream RxNorm: 654135 1 Gram(s) TOP BID 10/27/2015 No Stop Date Active alprazolam 0.5 mg tablet RxNorm: 414098 1 Tablet(s) PO Q8 as needed 10/27/2015 03/29/2016 Inactive hydrocodone 7.5 mg-acetaminophen 325 mg tablet RxNorm: 129330 1 Tablet(s) PO Q4H as needed 10/27/2015 11/25/2015 Inactive Trulicity 0.75 mg/0.5 mL subcutaneous pen injector RxNorm: 2219753 .5 Milliliter(s) SQ QW 10/27/2015 11/10/2015 Inactive glipizide 5 mg tablet RxNorm: 897079 1 Tablet(s) PO daily 10/27/2015 11/25/2015 Inactive hydrocodone 7.5 mg-acetaminophen 325 mg tablet RxNorm: 255780 1 Tablet(s) PO Q4H as needed 10/26/2015 10/26/2015 Inactive alprazolam 0.5 mg tablet RxNorm: 833470 1 Tablet(s) PO PRN as needed 10/26/2015 10/26/2015 Inactive promethazine 25 mg tablet RxNorm: 006616 1 Tablet(s) PO Q6-8H as needed 10/26/2015 11/15/2015 Inactive glipizide 5 mg tablet RxNorm: 246365 1/2 Tablet(s) PO daily 10/13/2015 10/26/2015 Inactive cefdinir 300 mg capsule RxNorm: 118566 1 Capsule(s) PO BID 10/05/2015 10/14/2015 Inactive prednisone 20 mg tablet RxNorm: 900457 2 Tablet(s) PO daily 10/05/2015 10/09/2015 Inactive Diflucan 150 mg tablet RxNorm: 919737 1 Tablet(s) PO daily 10/05/2015 10/11/2015 Inactive Invokamet 50 mg-500 mg tablet RxNorm: 0495791 1 Tablet(s) PO daily 10/05/2015 11/03/2015 Inactive alprazolam 0.5 mg tablet RxNorm: 194053 1 Tablet(s) PO PRN as needed 10/01/2015 02/23/2016 Inactive promethazine 25 mg tablet RxNorm: 387696 1 Tablet(s) PO Q6-8H as needed 09/30/2015 10/25/2015 Inactive bumetanide 1 mg tablet RxNorm: 728839 TAKE ONE TABLET BY MOUTH TWICE DAILY 09/30/2015 10/29/2015 Inactive bumetanide 1 mg tablet RxNorm: 147767 TAKE ONE TABLET BY MOUTH TWICE DAILY 09/20/2015 12/18/2015 Inactive bumetanide 1 mg tablet RxNorm: 446292 1 Tablet(s) PO BID 09/20/2015 10/19/2015 Inactive metoprolol succinate ER 100 mg tablet,extended release 24 hr RxNorm: 001345 1 Tablet(s) PO daily 09/16/2015 03/13/2016 Inactive spironolactone 50 mg tablet RxNorm: 174735 1 Tablet(s) PO BID 09/16/2015 03/13/2016 Inactive alprazolam 0.5 mg tablet RxNorm: 068031 1 Tablet(s) PO PRN as needed 09/16/2015 10/25/2015 Inactive hydrocodone 7.5 mg-acetaminophen 325 mg tablet RxNorm: 185850 1 Tablet(s) PO Q4H as needed 09/16/2015 10/25/2015 Inactive Invokamet 50 mg-1,000 mg tablet RxNorm: 4751941 1 Tablet(s) PO daily 09/06/2015 09/05/2015 Inactive Invokamet 50 mg-1,000 mg tablet RxNorm: 3234533 1 Tablet(s) PO daily 09/06/2015 12/04/2015 Inactive promethazine 25 mg tablet RxNorm: 891013 TAKE ONE TABLET BY MOUTH EVERY 6 TO 8 HOURS NEEDED 09/01/2015 09/16/2015 Inactive promethazine 25 mg tablet RxNorm: 731308 1 Tablet(s) PO Q6-8H as needed 08/27/2015 09/25/2015 Inactive metoprolol succinate ER 100 mg tablet,extended release 24 hr RxNorm: 602957 1 Tablet(s) PO daily 08/20/2015 09/15/2015 Inactive bumetanide 1 mg tablet RxNorm: 511690 1 Tablet(s) PO BID 08/20/2015 09/18/2015 Inactive Bumex 1 mg tablet RxNorm: 223128 1 Tablet(s) PO BID 08/20/2015 11/15/2015 Inactive Kenalog 40 mg/mL suspension for injection RxNorm: 3103824 Milliliter(s) Inj 08/20/2015 08/20/2015 Inactive bumetanide 1 mg tablet RxNorm: 300738 1 Tablet(s) PO BID 08/20/2015 08/19/2015 Inactive Levaquin 500 mg tablet RxNorm: 748566 1 Tablet(s) PO daily 08/20/2015 08/26/2015 Inactive promethazine 25 mg tablet RxNorm: 136826 1 Tablet(s) PO Q6-8H as needed 08/06/2015 08/26/2015 Inactive metformin 500 mg tablet RxNorm: 324089 Tablet(s) PO 500mg in the morning and 1000mg at night No Start Date 09/16/2015 Inactive Lantus Solostar 100 unit/mL (3 mL) subcutaneous insulin pen RxNorm: 873038 Unit(s) SQ UD 10 units QHS x 5 days, if blood sugars are above 200 increase to 15 units x 5 days, if still 200 increase to 20 units. No Start Date 04/13/2016 Inactive alprazolam 0.5 mg tablet RxNorm: 073530 1 Tablet(s) PO PRN as needed No Start Date 09/15/2015 Inactive cyclobenzaprine 10 mg tablet RxNorm: 444223 1 Tablet(s) PO PRN as needed No Start Date 04/05/2016 Inactive lidocaine 4 % topical patch RxNorm: 7398417 1 Patch TOP on for 12 hours and off for 12 hours No Start Date 04/12/2016 Inactive metoprolol tartrate 50 mg tablet RxNorm: 206991 1 Tablet(s) PO BID No Start Date 11/10/2015 Inactive spironolactone 50 mg tablet RxNorm: 075567 1 Tablet(s) PO BID No Start Date 09/15/2015 Inactive hydrocodone 7.5 mg-acetaminophen 325 mg tablet RxNorm: 465281 1 Tablet(s) PO Q4H as needed No Start Date 09/15/2015 Inactive promethazine 25 mg tablet RxNorm: 326318 1 Tablet(s) PO PRN as needed No Start Date 08/05/2015 Inactive Medication Administered Medication Codes Instructions Start Date Status ceftriaxone 500 mg solution for injection RxNorm: 0622243 06/05/2018 No longer Active Kenalog 40 mg/mL suspension for injection RxNorm: 8832345 15.Milliliter 02/19/2018 No longer Active Kenalog 40 mg/mL suspension for injection RxNorm: 5719618 Milliliter 09/05/2017 No longer Active Kenalog 40 mg/mL suspension for injection RxNorm: 7630008 1Milliliter 04/24/2017 No longer Active Kenalog 40 mg/mL suspension for injection RxNorm: 1828888 Milliliter 01/09/2017 No longer Active Kenalog 40 mg/mL suspension for injection RxNorm: 6481622 1Milliliter 04/06/2016 No longer Active Kenalog 40 mg/mL suspension for injection RxNorm: 7814900 1Milliliter 02/28/2016 No longer Active Kenalog 40 mg/mL suspension for injection RxNorm: 1760640 Milliliter 08/20/2015 No longer Active Immunizations Vaccine Codes Date Status Influenza CVX: 141 03/14/2018 completed Influenza CVX: 141 04/24/2017 completed Pneumococcal (Adult) CVX: 33 04/13/2016 completed Influenza CVX: 141 03/30/2016 completed Assessments Condition Codes Effective Dates Cellulitis of right axilla ICD-10: L03.111 ICD-9: 682.3 06/28/2018 Diarrhea, unspecified ICD-10: R19.7 ICD-9: 787.91 06/28/2018 Type 2 diabetes mellitus with hyperglycemia ICD-10: E11.65 ICD-9: 250.02 06/05/2018 Other allergic rhinitis ICD-10: J30.89 ICD-9: 477.8 03/26/2018 Cough ICD-10: R05 ICD-9: 786.2 03/26/2018 Gastro-esophageal reflux disease without esophagitis ICD-10: K21.9 ICD-9: 530.81 03/26/2018 Encounter for immunization ICD-10: Z23 ICD-9: V04.81 03/14/2018 Other hypertrophic disorders of the skin ICD-10: L91.8 ICD-9: 701.9 03/14/2018 Acute laryngopharyngitis ICD-10: J06.0 ICD-9: 465.0 03/07/2018 Acute bronchitis due to other specified organisms ICD-10: J20.8 ICD-9: 466.0 02/19/2018 Rash and other nonspecific skin eruption ICD-10: R21 ICD-9: 782.1 01/08/2018 Candidiasis of vulva and vagina ICD-10: B37.3 ICD-9: 112.1 01/08/2018 Sacrococcygeal disorders, not elsewhere classified ICD-10: M53.3 ICD-9: 724.79 11/23/2017 Low back pain ICD-10: M54.5 ICD-9: 724.2 11/23/2017 Other obesity due to excess calories ICD-10: E66.09 ICD-9: 278.00 06/13/2017 Polycystic ovarian syndrome ICD-10: E28.2 ICD-9: 256.4 06/13/2017 Pain in left foot ICD-10: M79.672 [...] acute sinusitis ICD-10: J01.80 ICD-9: 461.8 03/08/2016 Morbid (severe) obesity due to excess calories ICD-10: E66.01 ICD-9: 278.01 03/08/2016 Acne vulgaris ICD-10: L70.0 ICD-9: 706.1 03/08/2016 Localized enlarged lymph nodes ICD-10: R59.0 ICD-9: 785.6 02/28/2016 Excessive and frequent menstruation with irregular cycle ICD- 10: N92.1 ICD-9: 626.2 12/23/2015 Encounter for gynecological examination (general) (routine) without abnormal findings ICD-10: Z01.419 ICD-9: V72.31 12/23/2015 Other insomnia ICD-10: G47.09 ICD-9: 327.09 [...] Code Item Item Code Result Date %Hba1C Wiz792 % HbA1c 65386- 6 8.4 % 06/06/2018 %Hba1C Ngd716 Gluc Ave 194 mg/dL 06/06/2018 Lipid Ord30 CHOL 233 mg/dL 03/14/2018 Lipid Ord30 HDL 38.0 mg/dl 03/14/2018 Lipid Ord30 TRIG 143 mg/dL 03/14/2018 Lipid Ord30 LDL 166 mg/dL 03/14/2018 Lipid Ord30 C/HDL 6.1 Ratio 03/14/2018 %Hba1C Rnh579 % HbA1c 90208- 6 9.8 % 03/14/2018 %Hba1C Txk522 Gluc Ave 235 mg/dL 03/14/2018 Tsh Ord6 TSH (3rd IS) 1.09 uIU/mL 03/14/2018 Comp Metabolic Fuz446 NA 137 mEq/L 03/14/2018 Comp Metabolic Mtf780 K 4.6 mEq/L 03/14/2018 Comp Metabolic Nie573 CL 100 mEq/L 03/14/2018 Comp Metabolic Bet747 CO2 27.0 mEq/L 03/14/2018 Comp Metabolic Nom912 ANION GAP 15 03/14/2018 Comp Metabolic Fcq919 GLUCOSE 144 mg/dL 03/14/2018 Comp Metabolic Tma851 Creat 0.5 mg/dL 03/14/2018 Comp Metabolic Tqc219 eGFR 138 ml/min/1.73m2 03/14/2018 Comp Metabolic Hbc379 BUN 9 mg/dL 03/14/2018 Comp Metabolic Dho318 B/C Ratio 17.6 Ratio 03/14/2018 Comp Metabolic Ifb459 CALCIUM 10.0 mg/dL 03/14/2018 Comp Metabolic Ghy547 ALK PHOS 102 U/L 03/14/2018 Comp Metabolic Pwy755 AST(SGOT) 31 U/L 03/14/2018 Comp Metabolic Ttw250 ALT(SGPT) 41 U/L 03/14/2018 Comp Metabolic Nxd082 BILI T 0.5 mg/dL 03/14/2018 Comp Metabolic Xea544 ALBUMIN 4.3 g/dL 03/14/2018 Comp Metabolic Tov500 TPRO 6.8 g/dL 03/14/2018 Comp Metabolic Wsr978 GLOB 2.5 g/dL 03/14/2018 Comp Metabolic Glt981 A/G Ratio 1.8 Ratio 03/14/2018 Comp Metabolic Baw806 Osmo 275 mOsmo 03/14/2018 Cbc With Differential Ord2 WBC 16.74 K/ul 03/14/2018 Cbc With Differential Ord2 RBC 5.27 M/ul 03/14/2018 Cbc With Differential Ord2 HGB 15.7 g/dl 03/14/2018 Cbc With Differential Ord2 HCT 47.7 % 03/14/2018 Cbc With Differential Ord2 Neut% 67.5 % 03/14/2018 Cbc With Differential Ord2 Lymph% 25.7 % 03/14/2018 Cbc With Differential Ord2 MCV 90.5 fl 03/14/2018 Cbc With Differential Ord2 [place]% 5.6 % 03/14/2018 Cbc With Differential Ord2 [...] 4.31 K/ul 03/14/2018 Cbc With Differential Ord2 [place] ABS# 0.9 K/ul 03/14/2018 Cbc With Differential Ord2 Eos ABS# 0.2 K/ul 03/14/2018 Cbc With Differential Ord2 Baso ABS# 0.1 K/ul 03/14/2018 Cbc With Differential Ord2 WBC 14.30 [...] 30.2 pg 06/13/2017 Cbc With Differential Ord2 [place]% 4.9 % 06/13/2017 Cbc With Differential Ord2 [...] 3.21 K/ul 06/13/2017 Cbc With Differential Ord2 [place] ABS# 0.7 K/ul 06/13/2017 Cbc With Differential Ord2 Eos ABS# 0.2 K/ul 06/13/2017 Cbc With Differential Ord2 Baso ABS# 0.1 K/ul 06/13/2017 Tsh Ord6 hTSH II 1.50 uIU/mL 06/13/2017 Lipid Ord30 CHOL 219 mg/dL 06/13/2017 Lipid Ord30 HDL 40.0 mg/dl 06/13/2017 Lipid Ord30 TRIG 200 mg/dL 06/13/2017 Lipid Ord30 LDL 139 mg/dL 06/13/2017 Lipid Ord30 C/HDL 5.5 Ratio 06/13/2017 Comp Metabolic Dgl500 NA 139 mEq/L 06/13/2017 Comp Metabolic Loz878 K 4.4 mEq/L 06/13/2017 Comp Metabolic Nol937 CL 100 mEq/L 06/13/2017 Comp Metabolic Hht573 CO2 29.0 mEq/L 06/13/2017 Comp Metabolic Rqf765 ANION GAP 14 06/13/2017 Comp Metabolic Uxg360 GLUCOSE 257 mg/dL 06/13/2017 Comp Metabolic Njo523 Creat 0.5 mg/dL 06/13/2017 Comp Metabolic Zfd203 eGFR 145 ml/min/1.73m2 06/13/2017 Comp Metabolic Wwu703 BUN 13 mg/dL 06/13/2017 Comp Metabolic Xau953 B/C Ratio 26.5 Ratio 06/13/2017 Comp Metabolic Wru350 CALCIUM 9.7 mg/dL 06/13/2017 Comp Metabolic Fdz011 ALK PHOS 98 U/L 06/13/2017 Comp Metabolic Vcm286 AST(SGOT) 30 U/L 06/13/2017 Comp Metabolic Vlm285 ALT(SGPT) 43 U/L 06/13/2017 Comp Metabolic Hue085 BILI T 0.5 mg/dL 06/13/2017 Comp Metabolic Yyo851 ALBUMIN 4.0 g/dL 06/13/2017 Comp Metabolic Hug754 TPRO 6.4 g/dL 06/13/2017 Comp Metabolic Tww467 GLOB 2.4 g/dL 06/13/2017 Comp Metabolic Ajj192 A/G Ratio 1.7 Ratio 06/13/2017 Comp Metabolic Qkg699 Osmo 286 mOsmo 06/13/2017 %Hba1C Zsw845 % HbA1c 02452- 6 8.8 % 06/13/2017 %Hba1C Afj622 Gluc Ave 206 mg/dL 06/13/2017 %Hba1C Wck139 % HbA1c 94825- 6 11.1 % 2016 %Hba1C Rbw076 Gluc Ave 272 mg/dL 2016 C-Reactive Protein Qnt Crqnt CRP 4.7 mg/dl 2016 Comp Metabolic Isn686 NA 136 mEq/L 2016 Comp Metabolic Wnw186 K 4.1 mEq/L 2016 Comp Metabolic Tmq145 CL 96 mEq/L 2016 Comp Metabolic Laa642 CO2 29.0 mEq/L 2016 Comp Metabolic Rwe579 ANION GAP 15 2016 Comp Metabolic Kao709 GLUCOSE 291 mg/dL 2016 Comp Metabolic Wlq810 Creat 0.4 mg/dL 2016 Comp Metabolic Egu618 eGFR 165 ml/min/1.73m2 2016 Comp Metabolic Fdj239 BUN 11 mg/dL 2016 Comp Metabolic Wjt633 B/C Ratio 25.0 Ratio 2016 Comp Metabolic Brb329 CALCIUM 9.4 mg/dL 2016 Comp Metabolic Pgm014 ALK PHOS 111 U/L 2016 Comp Metabolic Duj465 AST(SGOT) 46 U/L 2016 Comp Metabolic Adr235 ALT(SGPT) 60 U/L 2016 Comp Metabolic Fwl880 BILI T 0.4 mg/dL 2016 Comp Metabolic Hsp507 ALBUMIN 4.0 g/dL 2016 Comp Metabolic Gmg279 TPRO 6.5 g/dL 2016 Comp Metabolic Nel120 GLOB 2.6 g/dL 2016 Comp Metabolic Xzz300 A/G Ratio 1.5 Ratio 2016 Comp Metabolic Iwk593 Osmo 282 mOsmo 2016 Cbc With Differential [...] 30.5 pg 2016 Cbc With Differential Ord2 [place]% 4.7 % 2016 Cbc With Differential Ord2 Eos% 1.1 % 2016 Cbc With Differential Ord2 MCHC 32.7 pg 2016 Cbc With Differential Ord2 Baso% 0.5 % 2016 Cbc With Differential Ord2 PLT 357 K/ul 2016 Cbc With Differential Ord2 Neut ABS# 10.18 K/ul 2016 Cbc With Differential Ord2 RDW 14.2 % 2016 Cbc With Differential Ord2 Lymph ABS# 3.53 K/ul 2016 Cbc With Differential Ord2 [place] ABS# 0.7 K/ul 2016 Cbc With Differential Ord2 Eos ABS# 0.2 K/ul 2016 Cbc With Differential Ord2 Baso ABS# 0.1 K/ul 2016 Comp Metabolic Blv880 NA 135 mEq/L 05/05/2016 Comp Metabolic Oki063 K 4.1 mEq/L 05/05/2016 Comp Metabolic Jym373 CL 99 mEq/L 05/05/2016 Comp Metabolic Qpp618 CO2 29.0 mEq/L 05/05/2016 Comp Metabolic Cvr205 ANION GAP 11 05/05/2016 Comp Metabolic Krl739 GLUCOSE 229 mg/dL 05/05/2016 Comp Metabolic Kvl432 Creat 0.5 mg/dL 05/05/2016 Comp Metabolic Czq338 eGFR 150 ml/min/1.73m2 05/05/2016 Comp Metabolic Oxv112 BUN 14 mg/dL 05/05/2016 Comp Metabolic Vkl874 B/C Ratio 29.2 Ratio 05/05/2016 Comp Metabolic Oft137 CALCIUM 9.1 mg/dL 05/05/2016 Comp Metabolic Zla513 ALK PHOS 112 U/L 05/05/2016 Comp Metabolic Hyq909 AST(SGOT) 59 U/L 05/05/2016 Comp Metabolic Nim607 ALT(SGPT) 63 U/L 05/05/2016 Comp Metabolic Vrg933 BILI T 0.7 mg/dL 05/05/2016 Comp Metabolic Qvz015 ALBUMIN 3.8 g/dL 05/05/2016 Comp Metabolic Uxy205 TPRO 6.5 g/dL 05/05/2016 Comp Metabolic Qly906 GLOB 2.7 g/dL 05/05/2016 Comp Metabolic Tbg039 A/G Ratio 1.4 Ratio 05/05/2016 Comp Metabolic Iuk790 Osmo 278 mOsmo 05/05/2016 Cbc With Differential [...] 30.2 pg 05/05/2016 Cbc With Differential Ord2 [place]% 4.4 % 05/05/2016 Cbc With Differential Ord2 [...] 3.59 K/ul 05/05/2016 Cbc With Differential Ord2 [place] ABS# 0.7 K/ul 05/05/2016 Cbc With Differential Ord2 Eos ABS# 0.1 K/ul 05/05/2016 Cbc With Differential Ord2 Baso ABS# 0.1 K/ul 05/05/2016 Lipid Ord30 CHOL 228 mg/dL 05/05/2016 Lipid Ord30 HDL 42.0 mg/dl 05/05/2016 Lipid Ord30 TRIG 168 mg/dL 05/05/2016 Lipid Ord30 LDL 152 mg/dL 05/05/2016 Lipid Ord30 C/HDL 5.4 Ratio 05/05/2016 %Hba1C Jqr506 % HbA1c 29246- 6 10.4 % 05/05/2016 %Hba1C Lfo870 Gluc Ave 252 mg/dL 05/05/2016 Hcg Beta Subunit Qual Serum 386993 B-HCG QUALITATIVE NEGATIVE 12/27/2015 GC/CHL PRB 9334982 Chl trach DNA Negative 12/25/2015 GC/CHL PRB 8191960 GC PROBE Negative 12/25/2015 Comp. Metabolic Panel (14) 23950 GLUCOSE 136 mg/dL 12/17/2015 Comp. Metabolic Panel (14) 24514 BUN 9 mg/dL 12/17/2015 Comp. Metabolic Panel (14) 22407 CREATININE 0.67 mg/dL 12/17/2015 Comp. Metabolic Panel (14) 01973 SODIUM 136 mmol/L 12/17/2015 Comp. Metabolic Panel (14) 42980 POTASSIUM 4.4 mmol/L 12/17/2015 Comp. Metabolic Panel (14) 27510 CHLORIDE 95 mmol/L 12/17/2015 Comp. Metabolic Panel (14) 48946 CARBON DIOXIDE 28 mmol/L 12/17/2015 Comp. Metabolic Panel (14) 46457 CALCIUM 10.1 mg/dL 12/17/2015 Comp. Metabolic Panel (14) 46554 TOTAL PROTEIN 7.0 g/dL 12/17/2015 Comp. Metabolic Panel (14) 67370 ALBUMIN 4.5 g/dL 12/17/2015 Comp. Metabolic Panel (14) 50518 ALKALINE PHOSPHATASE 87 U/L 12/17/2015 Comp. Metabolic Panel (14) 92682 TOTAL BILIRUBIN 0.5 mg/dL 12/17/2015 Comp. Metabolic Panel (14) 16571 SGOT (AST) 38 U/L 12/17/2015 Comp. Metabolic Panel (14) 03312 SGPT (ALT) 41 U/L 12/17/2015 Comp. Metabolic Panel (14) 93358 eGFR (mL/min/1.73m2) >60 12/17/2015 Comp. Metabolic Panel (14) 35196 12/17/2015 Cbc With Differential/Platelet 03958 WBC 16.67 thou/uL 12/17/2015 Cbc With Differential/Platelet 47542 RBC 5.11 mil/uL 12/17/2015 Cbc With Differential/Platelet 89128 HEMOGLOBIN 14.8 g/dL 12/17/2015 Cbc With Differential/Platelet 46242 HEMATOCRIT 48.7 % 12/17/2015 Cbc With Differential/Platelet 86430 MCV 95.4 fL 12/17/2015 Cbc With Differential/Platelet 67667 MCH 29.0 pg 12/17/2015 Cbc With Differential/Platelet 05444 MCHC 30.4 g/dL 12/17/2015 Cbc With Differential/Platelet 68692 RDW-CV 14.6 % 12/17/2015 Cbc With Differential/Platelet 84993 PLATELET COUNT 471 thou/uL 12/17/2015 Cbc With Differential/Platelet 36394 NEUTROPHIL % 71.3 % 12/17/2015 Cbc With Differential/Platelet 18141 LYMPHOCYTE % 22.4 % 12/17/2015 Cbc With Differential/Platelet 82047 MONOCYTE % 4.8 % 12/17/2015 Cbc With Differential/Platelet 81948 EOS % 0.7 % 12/17/2015 Cbc With Differential/Platelet 40593 BASO % 0.7 % 12/17/2015 Cbc With Differential/Platelet 47671 NEUTROPHIL ABS # 11.89 thou/uL 12/17/2015 Cbc With Differential/Platelet 00916 LYMPH ABS # 3.73 thou/uL 12/17/2015 Cbc With Differential/Platelet 67607 MONOCYTE ABS # 0.80 thou/uL 12/17/2015 Cbc With Differential/Platelet 61965 EOS ABS # 0.12 thou/uL 12/17/2015 Cbc With Differential/Platelet 80276 BASO ABS # 0.12 thou/uL 12/17/2015 Cbc With Differential/Platelet WBC 17.26 thou/uL [...] Hgb A1C With Eag Estimation GLYCOHEMOGLOBIN A1C 38292-6 8.1 % 11/13/2015 Hgb A1C With Eag Estimation ESTIMATED AVG GLUCOSE 186 mg/dL 11/13/2015 Comp. Metabolic Panel (14) GLUCOSE 126 mg/dL [...] >60 11/13/2015 Comp. Metabolic Panel (14) 11/13/2015 Comp. Metabolic Panel (14) 23479 GLUCOSE 84 mg/dL 09/11/2015 Comp. Metabolic Panel (14) 87425 BUN 11 mg/dL 09/11/2015 Comp. Metabolic Panel (14) 90865 CREATININE 0.56 mg/dL 09/11/2015 Comp. Metabolic Panel (14) 14375 SODIUM 142 mmol/L 09/11/2015 Comp. Metabolic Panel (14) 06952 POTASSIUM 4.3 mmol/L 09/11/2015 Comp. Metabolic Panel (14) 18407 CHLORIDE 98 mmol/L 09/11/2015 Comp. Metabolic Panel (14) 05442 CARBON DIOXIDE 27 mmol/L 09/11/2015 Comp. Metabolic Panel (14) 79289 CALCIUM 10.1 mg/dL 09/11/2015 Comp. Metabolic Panel (14) 69061 TOTAL PROTEIN 7.2 g/dL 09/11/2015 Comp. Metabolic Panel (14) 66896 ALBUMIN 4.7 g/dL 09/11/2015 Comp. Metabolic Panel (14) 39647 ALKALINE PHOSPHATASE 109 U/L 09/11/2015 Comp. Metabolic Panel (14) 41969 TOTAL BILIRUBIN 0.3 mg/dL 09/11/2015 Comp. Metabolic Panel (14) 82636 SGOT (AST) 53 U/L 09/11/2015 Comp. Metabolic Panel (14) 66418 SGPT (ALT) 53 U/L 09/11/2015 Comp. Metabolic Panel (14) 04698 eGFR (mL/min/1.73m2) >60 09/11/2015 Comp. Metabolic Panel (14) 01674 09/11/2015 Cbc With Differential/Platelet 72672 WBC 11.76 thou/uL 08/11/2015 Cbc With Differential/Platelet 21974 RBC 4.98 mil/uL 08/11/2015 Cbc With Differential/Platelet 84434 HEMOGLOBIN 14.2 g/dL 08/11/2015 Cbc With Differential/Platelet 80367 HEMATOCRIT 46.7 % 08/11/2015 Cbc With Differential/Platelet 06829 MCV 93.8 fL 08/11/2015 Cbc With Differential/Platelet 75512 MCH 28.5 pg 08/11/2015 Cbc With Differential/Platelet 96820 MCHC 30.4 g/dL 08/11/2015 Cbc With Differential/Platelet 43639 RDW-CV 14.3 % 08/11/2015 Cbc With Differential/Platelet 31841 PLATELET COUNT 382 thou/uL 08/11/2015 Cbc With Differential/Platelet 60111 NEUTROPHIL % 67.3 % 08/11/2015 Cbc With Differential/Platelet 65242 LYMPHOCYTE % 24.0 % 08/11/2015 Cbc With Differential/Platelet 34940 MONOCYTE % 6.0 % 08/11/2015 Cbc With Differential/Platelet 77334 EOS % 1.6 % 08/11/2015 Cbc With Differential/Platelet 24428 BASO % 1.0 % 08/11/2015 Cbc With Differential/Platelet 45871 NEUTROPHIL ABS # 7.91 thou/uL 08/11/2015 Cbc With Differential/Platelet 17842 LYMPH ABS # 2.82 thou/uL 08/11/2015 Cbc With Differential/Platelet 66033 MONOCYTE ABS # 0.71 thou/uL 08/11/2015 Cbc With Differential/Platelet 54495 EOS ABS # 0.19 thou/uL 08/11/2015 Cbc With Differential/Platelet 72850 BASO ABS # 0.12 thou/uL 08/11/2015 Comp. Metabolic Panel (14) 87797 GLUCOSE 183 mg/dL 08/11/2015 Comp. Metabolic Panel (14) 71941 BUN 10 mg/dL 08/11/2015 Comp. Metabolic Panel (14) 16449 CREATININE 0.46 mg/dL 08/11/2015 Comp. Metabolic Panel (14) 43791 SODIUM 138 mmol/L 08/11/2015 Comp. Metabolic Panel (14) 13074 POTASSIUM 4.0 mmol/L 08/11/2015 Comp. Metabolic Panel (14) 06381 CHLORIDE 98 mmol/L 08/11/2015 Comp. Metabolic Panel (14) 89899 CARBON DIOXIDE 29 mmol/L 08/11/2015 Comp. Metabolic Panel (14) 29463 CALCIUM 9.4 mg/dL 08/11/2015 Comp. Metabolic Panel (14) 84693 TOTAL PROTEIN 6.8 g/dL 08/11/2015 Comp. Metabolic Panel (14) 20566 ALBUMIN 4.4 g/dL 08/11/2015 Comp. Metabolic Panel (14) 56498 ALKALINE PHOSPHATASE 118 U/L 08/11/2015 Comp. Metabolic Panel (14) 18704 TOTAL BILIRUBIN <0.3 mg/dL 08/11/2015 Comp. Metabolic Panel (14) 34255 SGOT (AST) 41 U/L 08/11/2015 Comp. Metabolic Panel (14) 64724 SGPT (ALT) 55 U/L 08/11/2015 Comp. Metabolic Panel (14) 68696 eGFR (mL/min/1.73m2) >60 08/11/2015 Comp. Metabolic Panel (14) 58739 08/11/2015 Tsh 320969 TSH 3.220 uIU/mL 08/11/2015 Lipid Panel 28918 CHOLESTEROL 193 mg/dL 08/11/2015 Lipid Panel 46725 TRIGLYCERIDES 192 mg/dL 08/11/2015 Lipid Panel 19831 HDL 38 mg/dL 08/11/2015 Lipid Panel 97590 CHOLESTEROL/HDL 5.08 08/11/2015 Lipid Panel 97887 LDL (CALCULATED) 117 mg/dL 08/11/2015 Lipid Panel 10048 LDL/HDL 3.08 08/11/2015 Lipid Panel 02127 PHENOTYPE TYPE IV BORDERLINE 08/11/2015 Review of Systems System Result Effective Dates Constitutional No recent illness 06/28/2018 Constitutional No [...] Procedure Codes Date THER/PROPH/DIAG INJ SC/IM CPT-4: 81106 06/05/2018 ROCEPHIN, PER 250 MG CPT- 4: J0696 06/05/2018 REMOVAL OF SKIN TAGS <W/15 CPT-4: 12070 03/14/2018 FLU VAC NO PRSV 4 PRECIOUS 3 YRS+ CPT-4: 02058 03/14/2018 IMMUNIZATION ADMIN CPT- 4: 18731 03/14/2018 TRIAMCINOLONE ACET INJ NOS CPT-4: J3301 02/19/2018 THER/PROPH/DIAG INJ SC/IM CPT-4: 97249 02/19/2018 THER/PROPH/DIAG INJ SC/IM CPT-4: 60183 09/05/2017 TRIAMCINOLONE ACET INJ NOS CPT-4: J3301 09/05/2017 IMMUNIZATION ADMIN CPT- 4: 98601 04/24/2017 FLU VAC NO PRSV 4 PRECIOUS 3 YRS+ CPT-4: 49754 04/24/2017 DRAIN/INJECT JOINT/BURSA CPT-4: 84686 04/24/2017 TRIAMCINOLONE ACET INJ NOS CPT-4: J3301 04/24/2017 THER/PROPH/DIAG INJ SC/IM CPT-4: 66296 01/09/2017 TRIAMCINOLONE ACET INJ NOS CPT-4: J3301 01/09/2017 THER/PROPH/DIAG INJ SC/IM CPT-4: 58801 04/13/2016 Pneumococcal Polysaccharide Vaccine, 23-Valent, Ad CPT-4: 41019 04/13/2016 INJECT TRIGGER POINTS 3/> CPT-4: 69061 04/06/2016 TRIAMCINOLONE ACET INJ NOS CPT-4: J3301 04/06/2016 IMMUNIZATION ADMIN CPT- 4: 16535 03/30/2016 IIV4 FLU VACC NO PRESERV ID SNOMED CT: [id number] CPT-4: 63888 03/30/2016 TRIAMCINOLONE ACET INJ NOS CPT-4: J3301 02/28/2016 THER/PROPH/DIAG INJ SC/IM CPT-4: 80237 02/28/2016 TRIAMCINOLONE ACET INJ NOS CPT-4: J3301 08/20/2015 Vital Signs Date Vital 06/28/2018 Blood Pressure 1: 122/76 Code: 8480-6 Heart Rate 1: 107 bpm SpO2: 95% Weight: 214 lbs 06/17/2018 Blood Pressure 1: 128/74 Code: 8480-6 Heart Rate 1: 112 bpm Height: 4'11" SpO2: 97% Temperature: 36.9 (C) / 98.4 (F) Weight: 06/05/2018 Blood Pressure 1: 127/74 Code: 8480-6 BMI: 42.4 Code: 14826-7 Heart Rate 1: 78 bpm Height: 4'11" SpO2: 97% Weight: 210 lbs 03/26/2018 Blood Pressure 1: 128/74 Code: 8480-6 BMI: 43.0 Code: 82549-7 Heart Rate 1: 120 bpm Height: 4'11" SpO2: 97% Weight: 213 lbs 03/14/2018 Blood Pressure 1: 120/74 Code: 8480-6 BMI: 43.0 Code: 62620-3 Heart Rate 1: 114 bpm Height: 4'11" SpO2: 95% Weight: 213 lbs 03/07/2018 Blood Pressure 1: 132/74 Code: 8480-6 BMI: 43.8 Code: 22795-5 Heart Rate 1: 123 bpm Height: 4'11" [...] 1: 134/86 Code: 8480-6 BMI: 45.4 Code: 39328-8 Heart Rate 1: 108 bpm Height: 4'11" SpO2: 95% Weight: 225 lbs 06/07/2017 Blood Pressure 1: 132/74 Code: 8480-6 Heart Rate 1: 99 bpm Height: 4'11" SpO2: 95% 04/24/2017 Blood Pressure 1: 132/8096 Code: 8480-6 BMI: 47.7 Code: 59724-3 Heart Rate 1: 96 bpm Height: 4'11" Weight: 236 lbs 01/09/2017 Blood Pressure 1: 122/74 Code: 8480-6 BMI: 46.0 Code: 40421-8 Heart Rate 1: 114 bpm Height: 4'11" SpO2: 98% Temperature: 37.1 (C) / 98.7 (F) Weight: 228 lbs 10/30/2016 Blood Pressure 1: 124/78 Code: 8480-6 BMI: 49.1 Code: 83027-2 Heart Rate 1: 90 bpm Height: 4'11" SpO2: 97% Weight: 243 lbs 10/09/2016 Blood Pressure 1: 124/80 Code: 8480-6 BMI: 49.3 Code: 65097-0 Heart Rate 1: 91 bpm Height: 4'11" SpO2: 98% Weight: 244 lbs 09/12/2016 Blood Pressure 1: 128/80 Code: 8480-6 BMI: 49.1 Code: 57689-5 Heart Rate 1: 94 bpm Height: 4'11" SpO2: 95% Weight: 243 lbs 09/05/2016 Blood Pressure 1: 118/74 Code: 8480-6 BMI: 49.1 Code: 94861-9 Heart Rate 1: 100 bpm Height: 4'11" SpO2: 97% Weight: 243 lbs 06/16/2016 Blood Pressure 1: 120/62 Code: 8480-6 BMI: 49.1 Code: 61245-7 Heart Rate 1: 100 bpm Height: 4'11" SpO2: 96% Temperature: 36.7 (C) / 98.0 (F) Weight: 243 lbs 06/13/2016 Blood Pressure 1: 120/70 Code: 8480-6 Heart Rate 1: 117 bpm SpO2: 97% 05/19/2016 Blood Pressure 1: 130/64 Code: 8480-6 BMI: 49.1 Code: 58135-2 Heart Rate 1: 101 bpm Height: 4'11" SpO2: 96% Weight: 243 lbs 05/08/2016 Blood Pressure 1: 128/76 Code: 8480-6 Heart Rate 1: 119 bpm Height: SpO2: 97% Weight: 05/05/2016 Blood Pressure 1: 124/76 Code: 8480-6 BMI: 49.1 Code: 20152-2 Heart Rate 1: 75 bpm Height: 4'11" SpO2: 99% Weight: 243 lbs 04/10/2016 Blood Pressure 1: 140/80 Code: 8480-6 BMI: 49.7 Code: 91760-0 Heart Rate 1: 88 bpm Height: 4'11" SpO2: 95% Weight: 246 lbs 04/06/2016 Blood Pressure 1: 134/82 Code: 8480-6 BMI: 75.1 Code: 08951-9 Heart Rate 1: 72 bpm Height: 4' SpO2: 96% Weight: 246 lbs 03/08/2016 Blood Pressure 1: 126/72 Code: 8480-6 BMI: 49.7 Code: 33956-5 Heart Rate 1: 89 bpm Height: 4'11" SpO2: 97% Weight: 246 lbs 02/28/2016 Blood Pressure 1: 124/68 Code: 8480-6 BMI: 49.7 Code: 45523-1 Heart Rate 1: 89 bpm Height: 4'11" SpO2: 96% Weight: 246 lbs 01/18/2016 Blood Pressure 1: 142/78 Code: 8480-6 BMI: 48.9 Code: 21402-5 Heart Rate 1: 97 bpm Height: 4'11" SpO2: 97% Weight: 242 lbs 12/23/2015 Blood Pressure 1: 124/74 Code: 8480-6 BMI: 48.9 Code: 42011-4 Heart Rate 1: 106 bpm Height: 4'11" SpO2: 96% Weight: 242 lbs 12/16/2015 Blood Pressure 1: 116/82 Code: 8480-6 BMI: 48.3 Code: 63069-7 Heart Rate 1: 111 bpm Height: 4'11" SpO2: 97% Weight: 239 lbs 11/11/2015 Blood Pressure 1: 130/80 Code: 8480-6 BMI: 49.7 Code: 89974-4 Heart Rate 1: 105 bpm Height: 4'11" SpO2: 96% Weight: 246 lbs 10/27/2015 Blood Pressure 1: 122/70 Code: 8480-6 BMI: 49.5 Code: 60773-2 Heart Rate 1: 107 bpm Height: 4'11" SpO2: 96% Weight: 245 lbs 10/13/2015 Blood Pressure 1: 140/82 Code: 8480-6 BMI: 50.9 Code: 62025-7 Heart Rate 1: 111 bpm Height: 4'11" SpO2: 96% Weight: 252 lbs 10/05/2015 Blood Pressure 1: 118/70 Code: 8480-6 BMI: 51.1 Code: 21910-5 Heart Rate 1: 120 bpm Height: 4'11" SpO2: 97% Weight: 253 lbs 09/01/2015 Blood Pressure 1: 132/82 Code: 8480-6 BMI: 50.1 Code: 46614-7 Heart Rate 1: 110 bpm Height: 4'11" SpO2: 96% Weight: 248 lbs 08/20/2015 Blood Pressure 1: 132/78 Code: 8480-6 BMI: 51.7 Code: 95787-3 Heart Rate 1: 100 bpm Height: 4'11" Weight: 256 lbs 08/03/2015 Blood Pressure 1: 148/92 Code: 8480-6 BMI: 52.1 Code: 77919-9 Heart Rate 1: 100 bpm Height: 4'11" SpO2: 97% Weight: 258 lbs Functional Status No Functional Status data History of Present Illness Symptom Name Status Result Effective Date Notes Quality acute 06/28/2018 None Quality improving 06/28/2018 [...] data Encounters Encounter Performer Location Codes Date 75490 EST. PATIENT, LEVEL III Diagnosis: Cellulitis of right axilla[ICD10: L03.111] Diagnosis: Diarrhea, unspecified[ICD10: R19.7] Gloria Hess MD, [facility] CPT- 4: 37384 06/28/2018 ([id number]) 47022 EST. PATIENT, LEVEL II Diagnosis: Cellulitis of right axilla[ICD10: L03.111] Tamy Hess MD, [facility] CPT-4: 83114 06/17/2018 82124 EST. PATIENT, LEVEL III Diagnosis: Cellulitis of right axilla[ICD10: L03.111] Diagnosis: Type 2 diabetes mellitus with hyperglycemia[ICD10: E11.65] Gloria Hess MD, [facility] CPT-4: 44275 06/05/2018 19266 EST. PATIENT, LEVEL III Diagnosis: Gastro-esophageal reflux disease without esophagitis[ICD10: K21.9] Diagnosis: Other allergic rhinitis[ICD10: J30.89] Diagnosis: Cough[ICD10: R05] Gloria Hess MD, [facility] CPT-4: 43585 03/26/2018 ([id number]) 88910 EST. PATIENT, LEVEL III Diagnosis: Cough[ICD10: R05] Gloria Hess MD, [facility] CPT-4: 08086 03/14/2018 86054 EST. PATIENT, LEVEL IV Diagnosis: Acute laryngopharyngitis[ICD10: J06.0] Diagnosis: Other allergic rhinitis[ICD10: J30.89] Diagnosis: Cough[ICD10: R05] Gloria Hess MD, [facility] CPT-4: 65092 03/07/2018 11796 EST. PATIENT, LEVEL IV Diagnosis: Acute bronchitis due to other specified organisms[ICD10: J20.8] Diagnosis: Acute laryngopharyngitis[ICD10: J06.0] Gloria Hess MD, [facility] CPT- 4: 95095 02/19/2018 11745 EST. PATIENT, LEVEL IV Diagnosis: Candidiasis of vulva and vagina[ICD10: B37.3] Diagnosis: Rash and other nonspecific skin eruption[ICD10: R21] Gloria Hess MD, [facility] CPT-4: 09755 01/08/2018 67329 EST. PATIENT, LEVEL III Diagnosis: Sacrococcygeal disorders, not elsewhere classified[ICD10: M53.3] Diagnosis: Low back pain[ICD10: M54.5] Gloria Hess MD, [facility] CPT-4: 93274 11/23/2017 15335 EST. PATIENT, LEVEL III Diagnosis: Acute laryngopharyngitis[ICD10: J06.0] Diagnosis: Other allergic rhinitis[ICD10: J30.89] Diagnosis: Acute bronchitis due to other specified organisms[ICD10: J20.8] Gloria Hess MD, [facility] CPT-4: 37758 09/05/2017 41333 EST. PATIENT, LEVEL III Diagnosis: Pain in left foot[ICD10: M79.672] Diagnosis: Rash and other nonspecific skin eruption[ICD10: R21] Diagnosis: Candidiasis of vulva and vagina[ICD10: B37.3] Diagnosis: Localized edema[ICD10: R60.0] Diagnosis: Dyspnea, unspecified[ICD10: R06.00] Gloria Hess MD, [facility] CPT- 4: 63090 06/07/2017 70593 EST. PATIENT, LEVEL III Diagnosis: Low back pain[ICD10: M54.5] Diagnosis: Sacroiliitis, not elsewhere classified[ICD10: M46.1] Diagnosis: Pain in left foot[ICD10: M79.672] Diagnosis: VACCIN FOR INFLUENZA[ICD10: Z23] Gloria Hess MD, [facility] CPT-4: 16477 04/24/2017 09272 EST. PATIENT, LEVEL III Diagnosis: Acute suppurative otitis media without spontaneous rupture of ear drum, right ear[ICD10: H66.001] Diagnosis: Other allergic rhinitis[ICD10: J30.89] Gloria Hess MD, [facility] CPT- 4: 93218 01/09/2017 73885 EST. PATIENT, LEVEL IV Diagnosis: Candidiasis of vulva and vagina[ICD10: B37.3] Diagnosis: Type 2 diabetes mellitus with hyperglycemia[ICD10: E11.65] Gloria Hess MD, [facility] CPT-4: 58464 10/30/2016 56442 EST. PATIENT, LEVEL III Diagnosis: Candidiasis of vulva and vagina[ICD10: B37.3] Diagnosis: Type 2 diabetes mellitus with hyperglycemia[ICD10: E11.65] Gloria Hess MD, [facility] CPT-4: 88264 10/09/2016 88815 EST. PATIENT, LEVEL IV Diagnosis: Umbilical hernia without obstruction or gangrene[ICD10: K42.9] Gloria Hess MD, [facility] CPT-4: 10320 09/12/2016 89949 EST. PATIENT, LEVEL III Diagnosis: Epigastric pain[ICD10: R10.13] Diagnosis: Candidiasis of vulva and vagina[ICD10: B37.3] Diagnosis: Type 2 diabetes mellitus with hyperglycemia[ICD10: E11.65] Gloria Hess MD, [facility] CPT-4: 96328 09/05/2016 30451 EST. PATIENT, LEVEL III Diagnosis: Acute laryngopharyngitis[ICD10: J06.0] Diagnosis: Other allergic rhinitis[ICD10: J30.89] Gloria Hess MD, [facility] CPT- 4: 96069 06/16/2016 10270 EST. PATIENT, LEVEL III Diagnosis: Type 2 diabetes mellitus with hyperglycemia[ICD10: E11.65] Diagnosis: Other obesity due to excess calories[ICD10: E66.09] Gloria Hess MD, [facility] CPT-4: 84796 06/13/2016 75213 EST. PATIENT, LEVEL III Diagnosis: Type 2 diabetes mellitus with hyperglycemia[ICD10: E11.65] Diagnosis: Other obesity due to excess calories[ICD10: E66.09] Gloria Hess MD, [facility] CPT-4: 68372 05/19/2016 20096 EST. PATIENT, LEVEL III Diagnosis: Type 2 diabetes mellitus with hyperglycemia[ICD10: E11.65] Diagnosis: Other obesity due to excess calories[ICD10: E66.09] Gloria Hess MD, [facility] CPT-4: 32935 05/08/2016 41130 EST. PATIENT, LEVEL III Diagnosis: Type 2 diabetes mellitus without complications[ICD10: E11.9] Gloria Hess MD, [facility] CPT-4: 40412 05/05/2016 05563 EST. PATIENT, LEVEL III Diagnosis: Pain in right shoulder[ICD10: M25.511] Gloria Hess MD, [facility] CPT- 4: 83879 04/10/2016 04059 EST. PATIENT, LEVEL III Diagnosis: Pain in right shoulder[ICD10: M25.511] Diagnosis: Other muscle spasm[ICD10: M62.838] Diagnosis: Type 2 diabetes mellitus without complications[ICD10: E11.9] Gloria Hess MD, [facility] CPT-4: 05897 04/06/2016 78602 EST. PATIENT, LEVEL IV Diagnosis: Acute bronchitis due to other specified organisms[ICD10: J20.8] Diagnosis: Other acute sinusitis[ICD10: J01.80] Diagnosis: Acne vulgaris[ICD10: L70.0] Diagnosis: Morbid (severe) obesity due to excess calories[ICD10: E66.01] Gloria Hess MD, [facility] CPT-4: 45474 03/08/2016 91331 EST. PATIENT, LEVEL IV Diagnosis: Other acute sinusitis[ICD10: J01.80] Diagnosis: Localized enlarged lymph nodes[ICD10: R59.0] Gloria Hess MD, [facility] CPT-4: 73968 02/28/2016 66999 EST. PATIENT, LEVEL III Diagnosis: Type 2 diabetes mellitus without complications[ICD10: E11.9] Gloria Hess MD, [facility] CPT-4: 48010 01/18/2016 (42794) PREV VISIT EST AGE 40-64 Diagnosis: Encounter for gynecological examination (general) (routine) without abnormal findings[ICD10: Z01.419] Diagnosis: Excessive and frequent menstruation with irregular cycle[ICD10: N92.1] Gloria Hess MD, [facility] CPT-4: 06978 12/23/2015 01042 EST. PATIENT, LEVEL III Diagnosis: Type 2 diabetes mellitus without complications[ICD10: E11.9] Gloria Hess MD, [facility] CPT-4: 65456 12/16/2015 48252 EST. PATIENT, LEVEL III Diagnosis: Type 2 diabetes mellitus without complications[ICD10: E11.9] Diagnosis: Other obesity due to excess calories[ICD10: E66.09] Gloria Hess MD, [facility] CPT-4: 95394 11/11/2015 26559 EST. PATIENT, LEVEL III Diagnosis: Type 2 diabetes mellitus without complications[ICD10: E11.9] Diagnosis: Other obesity due to excess calories[ICD10: E66.09] Gloria Hess MD, [facility] CPT-4: 32972 10/27/2015 22001 EST. PATIENT, LEVEL III Diagnosis: Type 2 diabetes mellitus without complications[ICD10: E11.9] Diagnosis: Other obesity due to excess calories[ICD10: E66.09] Diagnosis: Other insomnia[ICD10: G47.09] Gloria Hess MD, [facility] CPT-4: 60849 10/13/2015 44986 EST. PATIENT, LEVEL IV Diagnosis: Acute recurrent maxillary sinusitis[ICD10: J01.01] Diagnosis: Allergic rhinitis due to pollen[ICD10: J30.1] Diagnosis: Other obesity due to excess calories[ICD10: E66.09] Gloria Hess MD, [facility] CPT-4: 06771 10/05/2015 76789 EST. PATIENT, LEVEL IV Diagnosis: Polycystic ovarian syndrome[ICD10: E28.2] Diagnosis: Other skin changes[ICD10: R23.8] Diagnosis: Other abnormal glucose[ICD10: R73.09] Gloria Hess MD, [facility] CPT- 4: 35435 09/01/2015 87160 EST. PATIENT, LEVEL IV Diagnosis: Acute recurrent maxillary sinusitis[ICD10: J01.01] Diagnosis: Morbid (severe) obesity due to excess calories[ICD10: E66.01] Diagnosis: Essential (primary) hypertension[ICD10: I10] Diagnosis: Allergic rhinitis due to pollen[ICD10: J30.1] [facility] CPT-4: 36196 08/20/2015 (12177) OFFICE VISIT, NEW - LEVEL 4 Diagnosis: Essential (primary) hypertension[ICD10: I10] Diagnosis: Obstructive sleep apnea (adult) (pediatric)[ICD10: G47.33] Diagnosis: Other insomnia[ICD10: G47.09] Diagnosis: Snoring[ICD10: R06.83] Diagnosis: Morbid (severe) obesity due to excess calories[ICD10: E66.01] Gloria Hess MD, [facility] CPT-4: 67769 08/03/2015 Plan of Care Planned Activity Notes Codes Status Date Referral: Roni Roberts pt will be notified by there office to schedule Initiated 07/03/2018 Care Plan: Referral Order SNOMED-CT : 774499851 Pending 07/01/2018 Visit Plan: Abscess/Cellulitis - The [...] stomach pain. 06/28/2018 Appointment: Gloria Scott WPtel: [address] [place], [place] [address] (30 min) Complex 06/28/2018 Patient Education: Patient Medication Summary Completed 06/28/2018 Visit Plan: Cellulitis-right ofzqyy-jnjzfjgn-rwz bactroban ointment until healed completely-call with any concerns 06/17/2018 Appointment: Tamy Lugo WPtel: [address] [place], [place] [phone] (15 min) Moderate 06/17/2018 Patient Education: Patient Medication Summary Completed 06/17/2018 Visit Plan: Abscess/Cellulitis - The patient was instructed in appropriate wound care. The patient was instructed to use the antibiotic ointment as per RX. The patient is to call for any change in symptoms, increase in size of the lesion, increase in pain, worsening redness, warmth, discharge. 06/05/2018 Appointment: Gloria Scott WPtel: [address] [place], [place] [phone] (30 min) Complex 06/05/2018 Patient Education: Patient Medication Summary Completed 06/05/2018 Patient Education: Diabetes Completed 06/05/2018 Referral: Wilner [address] Referral Initiated 04/19/2018 Care Plan: Referral Order SNOMED-CT : [id number] Pending 03/27/2018 Visit Plan: Esophageal Reflux - [...] allergy spray. 03/26/2018 Appointment: Gloria Scott WPtel: [address] [place], [place] [phone] (15 min) Moderate 03/26/2018 Patient Education: Patient Medication Summary Completed 03/26/2018 Appointment: Gloria Scott WPtel: [address] [place] [phone] (15 min) Moderate 03/25/2018 Visit Plan: [...] and bandaids. 03/14/2018 Appointment: Gloria Scott WPtel: [address] [place] [address] (15 min) Moderate 03/14/2018 Patient Education: Patient [...] improve 03/07/2018 Appointment: Gloria Scott WPtel: [facility] (15 min) Moderate 03/07/2018 Patient Education: [...] worsen. 02/19/2018 Appointment: Gloria Scott WPtel: [facility]2 [address] (15 min) Moderate 02/19/2018 Patient Education: [...] discharge. 01/08/2018 Appointment: Gloria Scott WPtel: [facility]9 [facility] (30 min) Complex 01/08/2018 Patient Education: [...] worsen. 09/05/2017 Appointment: Gloria Scott WPtel: [facility]9 [facility] (15 min) Moderate 09/05/2017 Patient Education: [...] send RX 06/07/2017 Appointment: Gloria Scott WPtel: [phone] [facility]6676[facility] (15 min) Moderate 06/07/2017 Patient Education: [...] 04/24/2017 Appointment: Gloria Scott WPtel: [facility]4 [address] (30 min) Complex 04/24/2017 Patient Education: Patient Medication Summary Completed 04/24/2017 Appointment: Gloria Scott WPtel: [facility]3 [facility]676[facility] (30 min) Complex 03/09/2017 Appointment: Gloria Scott WPtel: [facility]4 [facility] (30 min) Complex 02/13/2017 Visit Plan: [...] spray. 01/09/2017 Appointment: Gloria Scott WPtel: [facility] (10 min) Simple 01/09/2017 Patient Education: Patient Medication Summary Completed 01/09/2017 Patient Education: Obesity Completed 01/09/2017 Visit Plan: Vaginal candidiasis - will send RX - pt is to notify clinic if symptoms do not improve, if they worsen, or with any questions or concerns. Diabetes Mellitus - Uncontrolled - Will refer to soft work wrapper layer and examiner - I have recommended for the patient [...] Mellitus - Uncontrolled - Will refer to soft work wrapper layer and examiner - I have recommended for the patient [...] for greater blood glucose control. 10/09/2016 Appointment: Gloira Scott WPtel: [facility] [place] [place] ([place] min) [facility] 10/09/2016 Patient Education: Patient Medication Summary Completed 10/09/2016 Patient Education: Obesity Completed 10/09/2016 Referral: Rnoi Roberts Referral Completed 09/18/2016 Care Plan: CT ABD & PELV W/CONTRAST LOINC : 75661-3 Pending 09/13/2016 Care Plan: Referral Order SNOMED-CT : [id number] Pending 09/13/2016 Visit Plan: Ongoing abdominal pain/hernia - will send RX - will refer - pt is to notify clinic if symptoms do not improve, if they worsen, or with any questions or concerns. 09/12/2016 Appointment: Gloria Scott WPtel: [facility] [place] [place] (30 min) Complex 09/12/2016 Patient Education: Patient Medication Summary Completed 09/12/2016 Patient Education: Obesity Completed 09/12/2016 Care Plan: Referral Order SNOMED-CT : 094490141 Pending 09/12/2016 Visit Plan: Ongoing abdominal/epigastric pain [...] control. 09/05/2016 Appointment: Gloria Scott [facility]Ptel: [phone] [place] [place] (30 min) Complex 09/05/2016 Patient Education: [...] spray. 06/16/2016 Appointment: Gloria Scott WPtel: [phone] [facility] (10 min) Simple 06/16/2016 Patient Education: [...] weight check. 06/13/2016 Appointment: Gloria Scott WPtel: [facility]6 [facility] (30 min) Complex 06/13/2016 Patient Education: Patient Medication Summary Completed 06/13/2016 Patient Education: Obesity Completed 06/13/2016 Appointment: Gloria Scott WPtel: [facility]5 [facility] (30 min) Complex 06/08/2016 Visit Plan: [...] weight check. 05/19/2016 Appointment: Tamy Lugo WPtel: [facility]3 [facility] (30 min) Complex 05/19/2016 Patient Education: [...] check. 05/08/2016 Appointment: Gloria Scott [facility]Ptel: [phone] (15 min) Moderate 05/08/2016 Patient Education: Patient [...] the morning. 05/05/2016 Appointment: Tamy Lugo [facility]Ptel: [phone] [place] (15 min) Moderate 05/05/2016 Patient Education: Patient Medication Summary Completed 05/05/2016 Patient Education: Obesity Completed 05/05/2016 Care Plan: Comp Metabolic Pending 05/05/2016 Appointment: Joc[facility] Hess [facility]el: [phone] [facility] Procedure 04/17/2016 Appointment: Injection 04/13/2016 Patient Education: Patient Medication Summary Completed 04/13/2016 Visit Plan: Right shoulder pain - will refer to PT - The pt is to use prn antiinflammatories to manage acute pain. The patient is to call the office if the pain is worsening or does not improve. 04/10/2016 Appointment: Gloria Scott WPtel: [phone] [facility] (30 min) Complex 04/10/2016 Patient Education: [...] control. 04/06/2016 Appointment: Gloria Scott WPtel: [phone] [facility] (15 min) Moderate 04/06/2016 Patient Education: [...] Scott [facility]Ptel: [phone] [place] (30 min) Complex 02/28/2016 Patient Education: Patient Medication Summary Completed 02/28/2016 Patient Education: Obesity Completed 02/28/2016 Appointment: Gloria Scott WPtel: [phone] [place] (15 min) Moderate 01/31/2016 Visit Plan: Diabetes [...] or prn. 12/23/2015 Appointment: Gloria Scott WPtel: [facility] [place] [facility] 12/23/2015 Patient Education: Patient Medication [...] [facility] : 95668-6 Pending 08/13/2015 Visit Plan: Hypertension - uncontrolled [...] Patient Education: Hypertension Completed 08/03/2015 Referral: Roni Robrets Referral Completed [facility] [place] Referral Initiated Referral: Roni Roberts Referral Initiated Referral: Roni Roberts Referral Initiated Instructions Comment . Vaginal candidiasis - will send RX - pt is to notify clinic if symptoms do not improve, if they worsen, or with any questions or concerns. Diabetes Mellitus - Uncontrolled - Will refer to soft work wrapper layer and examiner - I have recommended for the patient [...] Mellitus - Uncontrolled - Will refer to soft work wrapper layer and examiner - I have recommended for the patient [...] with any questions or concerns. . Cellulitis-right xzkcdk-xultsvmq-hjn bactroban ointment until healed completely-call with any [...] is worsening or does not improve. . PCOS and skin changes - pt currently on Metformin, but states that it is causing some GI upset and diarrhea - will change to Invokamet, will refer to Dr. Con[facility]. Will have pt repeat her liver enzymes on 09/09/15. Will have pt recheck a Hgb A1C after 3 months of being on Invokamet. Continue ibuprofen 600mg - 800mg 3 times [...]
--- OUTSIDE RECORDS SUMMARY | 2018-12-17 04:26 | XMS REPORT ---
Author Author Migration, Doctor Organization [facility] Address Unknown Phone Unavailable Care Team Providers Care Heel Nailing Machine Operator Name Role Phone Migration, Doctor Unavailable Unavailable PROBLEMS Type Condition ICD9-CM Code [id number] Code Onset Dates Condition Status SNOMED Code Problem Counseling on substance use and abuse V65.42 Active 491504651 Problem Need for prophylactic vaccination and inoculation, Influenza V04.81 Active 757621353 Problem Dietary surveillance and counseling V65.3 Active 867293372 Problem Wheezing 786.07 Active 56333870 Problem Cough 786.2 Active 17903895 Problem Other malaise and fatigue 780.79 Active 766736820 Problem Abnormal weight gain 783.1 Active 925547810 Problem Other disorder of menstruation and other abnormal bleeding from female genital tract 626.8 Active 160433555 Problem Irregular menstrual cycle 626.4 Active 36670398 Problem Chronic cholecystitis 575.11 Active 93398027 Problem Polycystic ovaries 256.4 Active 51795688 Problem Unspecified backache 724.5 Active 795115865 Problem Other chronic pain G89.29 Active 39634048 Problem Pain in joint, ankle and foot 719.47 Active 706298643 Problem Influenza with other respiratory manifestations 487.1 Active 2515464 Problem Acute bronchitis 466.0 Active 03012540 Problem Dysfunction of Eustachian tube 381.81 Active 13952639 Problem Leukocytosis, unspecified 288.60 Active 111599679 ALLERGIES No Information ENCOUNTERS Encounter Location Date Diagnosis [facility] [address] [id number] [address] Mar, Bronchitis J40 [facility] [address], [place] [address] Jan, [facility] [address], [place] [address] Jan, Left foot pain M79.672 ; Pain in left ankle and joints of left foot M25.572 and Other chronic pain G89.29 [facility] [address] [facility] [id number] [place] [address] Jun, Left knee pain M25.562 [facility] [address] [facility] [id number] [place] [address] Sep, [facility] [address] [address] Sep, [facility] [address] [facility] [id number] [address] Apr, [facility] [address] [facility] [id number] [place] [address] Apr, [facility] [id number] [address] Dec, [facility] [address], [place] [address] Dec, [facility] [id number] [address] Nov, [facility] [address], [place] [address] Nov, [facility] [address] [address] October, [facility] [address] [id number] [address] Jul, [facility] [address] [facility] [id number], [place] [address] Jul, [facility] [id number] [address] Jun, [facility] [address] [facility] [id number], [place] [address] Jun, [facility] [id number] [address] Jun, [facility] [place] [facility] [address] [id number] [place] [address] May, [facility] [place] [facility] [address] [id number] [place] [address] May, [facility] [place] [facility] [address] [id number] [place] [address] May, [facility] [place] [facility] [address] [id number] [place] [address] May, [facility] [place] [facility] [address] [id number] [place] [address] May, [facility] [place] [facility] [address] [id number] [place] [address] May, [facility] [place] [facility] [address] [id number] [place] [address] Apr, [facility] [place] [facility] [address] [id number] [place] [address] Apr, [facility] [place] [facility] [address] [id number] [place] [address] Jan, [facility] [place] [facility] [address] [id number] [place] [address] Dec, [facility] [place] [facility] [address] [id number] [place] [address] Dec, [facility] [place] [facility] [address] [id number] [place] [address] Sep, [facility] [place] [facility] [address] [id number] [place] [address] Aug, [facility] [place] [facility] [address] [id number] [place] [address] Jul, [facility] [place] [facility] [address] [id number] [place] [address] Jul, [facility] [place] [facility] [address] [id number] [place] [address] Jul, [facility] [address] [id number] [place] [address] 20 Jul, 2011 [facility] [address] [id number] [place] [address] 18 Jul, 2011 [facility] [address] [id number] [place] [address] 17 Jul, 2011 [facility] [address] [id number] [place] [address] 08 Jul, 2011 [facility] [address] [id number] [place] [address] 07 Jul, 2011 [facility] [address] [id number] [place] [address] 16 Jun, 2011 [facility] [address] [facility] [id number] [place] [address] 16 Jun, 2011 [facility] [address] [id number] [place] [address] Jun, [facility] [address] [facility] [id number] [place] [address] Jun, [facility] [address] [facility] [id number] [place] [address] May, [facility] [address] [id number] [place] [address] May, [facility] [place] [facility] [address] [id number] [place] [address] May, [facility] [address] [id number] [place] [address] Apr, [facility] [place] [facility] [address] [id number] [place] [address] Nov, [facility] [address] [facility] [id number] [place] [address] Aug, [facility] [id number], [place] [address] May, [facility] [id number] [address] Feb, [facility] [address], [place] [address] Nov, [facility] [address], [place] [address] October, [facility] [id number], [place] [address] October, IMMUNIZATIONS No Known Immunizations SOCIAL HISTORY Never Assessed REASON FOR VISIT [facility]MR[facility] PLAN OF CARE VITAL SIGNS MEDICATIONS No Known Medications RESULTS No Results PROCEDURES No Known procedures INSTRUCTIONS MEDICATIONS ADMINISTERED No Known Medications MEDICAL (GENERAL) HISTORY Type Description Date Medical History PCOS (Polycystic Ovary Syndrome) Medical History asthma Surgical History cholecystectomy Surgical History left menicus repair 07/2015
--- OUTSIDE RECORDS SUMMARY | 2018-12-17 04:27 | XMS REPORT ---
Author Author Migration, Doctor Organization [facility] Address Unknown Phone Unavailable Care Team Providers Care Set Illustrator Name Role Phone Migration, Doctor Unavailable Unavailable PROBLEMS Type Condition ICD9-CM Code [id number] Code Onset Dates Condition Status SNOMED Code Problem Counseling on substance use and abuse V65.42 Active 146527337 Problem Need for prophylactic vaccination and inoculation, Influenza V04.81 Active 258420860 Problem Dietary surveillance and counseling V65.3 Active 908206109 Problem Wheezing 786.07 Active 83663908 Problem Cough 786.2 Active 63612113 Problem Other malaise and fatigue 780.79 Active 397290293 Problem Abnormal weight gain 783.1 Active 743040939 Problem Other disorder of menstruation and other abnormal bleeding from female genital tract 626.8 Active 862446444 Problem Irregular menstrual cycle 626.4 Active 67938053 Problem Chronic cholecystitis 575.11 Active 31317769 Problem Polycystic ovaries 256.4 Active 92862104 Problem Unspecified backache 724.5 Active 310065529 Problem Other chronic pain G89.29 Active 95624404 Problem Pain in joint, ankle and foot 719.47 Active 533031207 Problem Influenza with other respiratory manifestations 487.1 Active 8724851 Problem Acute bronchitis 466.0 Active 40355236 Problem Dysfunction of Eustachian tube 381.81 Active 58888232 Problem Leukocytosis, unspecified 288.60 Active 828372631 ALLERGIES No Information ENCOUNTERS Encounter Location Date Diagnosis [facility] [id number] [address] Mar, [facility]chitis J40 [facility] [address], [place] [address] Jan, [facility] [address], [place] [address] Jan, Left foot pain M79.672 ; Pain in left ankle and joints of left foot M25.572 and Other chronic pain G89.29 [facility] [address] [facility] [id number] [place] [address] Jun, Left knee pain M25.562 [facility] [place] [address] [facility] [id number] [place] [address] Sep, [facility] [address] [place] [address] Sep, [facility] [place] [address] [facility] [id number], [place] [address] Apr, [facility] [address] [facility] [id number] [place] [address] Apr, [facility] [place] [address] [id number] [place] [address] Dec, [facility] [address] [address] Dec, [facility] [address] [id number] [place] [address] Nov, [facility] [address] [address] Nov, [facility] [address] [place] [address] October, [facility] [address] [id number] [address] Jul, [facility] [address] [facility] [id number], [place] [address] Jul, [facility] [id number] [address] Jun, [facility] [place] [address] [facility] [id number], [place] [address] Jun, [facility] [id number] [address] Jun, [facility] [place] [facility] [address] [id number] [place] [address] May, [facility] [place] [facility] [address] [id number] [place] [address] May, [facility] [place] [facility] [address] [id number] [place] [address] May, [facility] [place] [facility] [address] [id number] [place] [address] May, [facility] [place] [facility] [address] [id number] [place] [address] May, [facility] [place] [facility] [address] [id number] [place] [address] May, [facility] [place] [facility] [address] [id number] [place] [address] Apr, [facility] [place] [facility] [address] [id number] [place] [address] Apr, [facility] [place] [facility] [address] [id number] [place] [address] Jan, [facility] [place] [facility] [address] [id number] [place] [address] Dec, [facility] [place] [facility] [address] [id number] [place] [address] Dec, [facility] [place] [facility] [address] [id number] [place] [address] Sep, [facility] [place] [facility] [address] [id number] [place] [address] Aug, [facility] [place] [facility] [address] [id number] [place] [address] Jul, [facility] [place] [facility] [address] [id number] [place] [address] Jul, [facility] [place] [facility] [address] [id number] [place] [address] Jul, [facility] [address] [id number] [place] [address] 20 Jul, 2011 [facility] [address] [id number] [place] [address] 18 Jul, 2011 [facility] [address] [id number] [place] [address] 17 Jul, 2011 [facility] [address] [id number] [place] [address] 08 Jul, 2011 [facility] [address] [id number] [place] [address] 07 Jul, 2011 [facility] [address] [id number] [place] [address] 16 Jun, 2011 [facility] [address] [facility] [id number] [place] [address] 16 Jun, 2011 [facility] [address] [id number] [place] [address] Jun, [facility] [address] [facility] [id number] [place] [address] Jun, [facility] [address] [facility] [id number] [place] [address] May, [facility] [address] [id number] [place] [address] May, [facility] [place] [facility] [address] [id number] [place] [address] May, [facility] [address] [id number] [place] [address] Apr, [facility] [place] [facility] [address] [id number] [place] [address] Nov, [facility] [address] [facility] [id number] [place] [address] Aug, [facility] [address] [id number] [address] May, [facility] [address] [id number] [address] Feb, [facility] [address], [place] [address] Nov, [facility] [address], [place] [address] October, [facility] [address] [id number], [place] [address] October, IMMUNIZATIONS No Known Immunizations SOCIAL HISTORY Never Assessed REASON FOR VISIT EMR-[facility] [place] PLAN OF CARE VITAL SIGNS MEDICATIONS No Known Medications RESULTS No Results PROCEDURES No Known procedures INSTRUCTIONS MEDICATIONS ADMINISTERED No Known Medications MEDICAL (GENERAL) HISTORY Type Description Date Medical History PCOS (Polycystic Ovary Syndrome) Medical History asthma Surgical History cholecystectomy Surgical History left menicus repair 07/2015
--- OUTSIDE RECORDS SUMMARY | 2018-12-17 04:27 | XMS REPORT ---
Author Author Migration, Doctor Organization [facility] Address Unknown Phone Unavailable Care Team Providers Care Seating Captain Name Role Phone Migration, Doctor Unavailable Unavailable PROBLEMS Type Condition ICD9-CM Code [id number] Code Onset Dates Condition Status SNOMED Code Problem Counseling on substance use and abuse V65.42 Active 359876648 Problem Need for prophylactic vaccination and inoculation, Influenza V04.81 Active 495057271 Problem Dietary surveillance and counseling V65.3 Active 496698896 Problem Wheezing 786.07 Active 96303822 Problem Cough 786.2 Active 59072799 Problem Other malaise and fatigue 780.79 Active 013268610 Problem Abnormal weight gain 783.1 Active 659254444 Problem Other disorder of menstruation and other abnormal bleeding from female genital tract 626.8 Active 205987653 Problem Irregular menstrual cycle 626.4 Active 79777283 Problem Chronic cholecystitis 575.11 Active 78875649 Problem Polycystic ovaries 256.4 Active 61122941 Problem Unspecified backache 724.5 Active 493051369 Problem Other chronic pain G89.29 Active 15638208 Problem Pain in joint, ankle and foot 719.47 Active 821001421 Problem Influenza with other respiratory manifestations 487.1 Active 3334089 Problem Acute bronchitis 466.0 Active 99346973 Problem Dysfunction of Eustachian tube 381.81 Active 89821379 Problem Leukocytosis, unspecified 288.60 Active 173271982 ALLERGIES No Information ENCOUNTERS Encounter Location Date Diagnosis [facility] [address] [id number] [address] Mar, [facility]itis [facility] [address] [address] Jan, [facility] [address] [address] Jan, Left foot pain M79.672 ; Pain in left ankle and joints of left foot M25.572 and Other chronic pain G89.29 [facility] [address] [facility] [id number] [place] [address] Jun, Left knee pain M25.562 [facility] [address] [facility] [id number] [place] [address] Sep, [facility] [address] [place] [address] Sep, [facility] [address] [facility] [id number] [address] Apr, [facility] [address] [facility] [id number] [place] [address] Apr, [facility] [address] [id number] [place] [address] Dec, [facility] [address] [address] Dec, [facility] [address] [id number] [place] [address] Nov, [facility] [address] [address] Nov, [facility] [address] [place] [address] October, [facility] [address] [id number] [address] Jul, [facility] [address] [facility] [id number] [address] Jul, [facility] [address] [id number] [address] Jun, [facility] [address] [facility] [id number] [address] Jun, [facility] [address] [id number] [address] Jun, [facility] [place] [facility] [address] [id number] [place] [address] May, [facility] [place] [facility] [address] [id number] [place] [address] May, [facility] [place] [facility] [address] [id number] [place] [address] May, [facility] [place] [facility] [address] [id number] [place] [address] May, [facility] [place] [facility] [address] [id number] [place] [address] May, [facility] [place] [facility] [address] [id number] [place] [address] May, [facility] [place] [facility] [address] [id number] [place] [address] Apr, [facility] [place] [facility] [address] [id number] [place] [address] Apr, [facility] [place] [facility] [address] [id number] [place] [address] Jan, [facility] [place] [facility] [address] [id number] [place] [address] Dec, [facility] [place] [facility] [address] [id number] [place] [address] Dec, [facility] [place] [facility] [address] [id number] [place] [address] Sep, [facility] [place] [facility] [address] [id number] [place] [address] Aug, [facility] [place] [facility] [address] [id number] [place] [address] Jul, [facility] [place] [facility] [address] [id number] [place] [address] Jul, [facility] [place] [facility] [address] [id number] [place] [address] Jul, [facility] [address] [id number] [place] [address] 20 Jul, 2011 [facility] [address] [id number] [place] [address] 18 Jul, 2011 [facility] [address] [id number] [place] [address] 17 Jul, 2011 [facility] [address] [id number] [place] [address] 08 Jul, 2011 [facility] [address] [id number] [place] [address] 07 Jul, 2011 [facility] [address] [id number] [place] [address] 16 Jun, 2011 [facility] [address] [facility] [id number] [place] [address] 16 Jun, 2011 [facility] [address] [id number] [place] [address] Jun, [facility] [address] [facility] [id number] [place] [address] Jun, [facility] [address] [facility] [id number] [place] [address] May, [facility] [address] [id number] [place] [address] May, [facility] [place] [facility] [address] [id number] [place] [address] May, [facility] [address] [id number] [place] [address] Apr, [facility] [place] [place] [facility] [address] [id number] [place] [address] Nov, [facility] [address] [facility] [id number] [place] [address] Aug, [facility] [address] [id number] [address] May, [facility] [address] [id number] [address] Feb, [facility] [address] [address] Nov, [facility] [address] [address] October, [facility] [address] [id number] [address] October, IMMUNIZATIONS No Known Immunizations SOCIAL HISTORY Never Assessed REASON FOR VISIT EMR-[facility] [place] PLAN OF CARE VITAL SIGNS MEDICATIONS No Known Medications RESULTS No Results PROCEDURES No Known procedures INSTRUCTIONS MEDICATIONS ADMINISTERED No Known Medications MEDICAL (GENERAL) HISTORY Type Description Date Medical History PCOS (Polycystic Ovary Syndrome) Medical History asthma Surgical History cholecystectomy Surgical History left menicus repair 07/2015
--- OUTSIDE RECORDS SUMMARY | 2018-12-17 04:27 | XMS REPORT ---
Author Author Migration, Doctor Organization [facility] Address Unknown Phone Unavailable Care Team Providers Care School Treasurer Name Role Phone Migration, Doctor Unavailable Unavailable PROBLEMS Type Condition ICD9-CM Code [id number] Code Onset Dates Condition Status SNOMED Code Problem Counseling on substance use and abuse V65.42 Active 853554127 Problem Need for prophylactic vaccination and inoculation, Influenza V04.81 Active 975925684 Problem Dietary surveillance and counseling V65.3 Active 210214985 Problem Wheezing 786.07 Active 31499808 Problem Cough 786.2 Active 72623986 Problem Other malaise and fatigue 780.79 Active 931130274 Problem Abnormal weight gain 783.1 Active 560814799 Problem Other disorder of menstruation and other abnormal bleeding from female genital tract 626.8 Active 326301400 Problem Irregular menstrual cycle 626.4 Active 61383649 Problem Chronic cholecystitis 575.11 Active 81831102 Problem Polycystic ovaries 256.4 Active 82001132 Problem Unspecified backache 724.5 Active 248742512 Problem Other chronic pain G89.29 Active 04881894 Problem Pain in joint, ankle and foot 719.47 Active 333255326 Problem Influenza with other respiratory manifestations 487.1 Active 4482695 Problem Acute bronchitis 466.0 Active 84077470 Problem Dysfunction of Eustachian tube 381.81 Active 34967703 Problem Leukocytosis, unspecified 288.60 Active 089732516 ALLERGIES No Information ENCOUNTERS Encounter Location Date Diagnosis [facility] [address] [id number] [address] Mar, [facility]chitis J40 [facility] [address] [address] Jan, [facility] [address] [address] Jan, Left foot pain M79.672 ; Pain in left ankle and joints of left foot M25.572 and Other chronic pain G89.29 [facility] [address] [facility] [id number] [place] [address] Jun, Left knee pain M25.562 [facility] [address] [facility] [id number] [place] [address] Sep, [facility] [address] [place] [address] Sep, [facility] [address] [facility] [id number] [address] Apr, [facility] [address] [facility] [id number] [place] [address] Apr, [facility] [address] [id number] [place] [address] Dec, [facility] [address] [address] Dec, [facility] [address] [id number] [place] [address] Nov, [facility] [address] [address] Nov, [facility] [address] [place] [address] October, [facility] [address] [id number] [address] Jul, [facility] [address] [facility] [id number] [place] [address] Jul, [facility] [address] [id number] [address] Jun, [facility] [address] [facility] [id number] [place] [address] Jun, [facility] [address] [id number] [address] Jun, [facility] [place] [facility] [address] [id number] [place] [address] May, [facility] [place] [facility] [address] [id number] [place] [address] May, [facility] [place] [facility] [address] [id number] [place] [address] May, [facility] [place] [facility] [address] [id number] [place] [address] May, [facility] [place] [facility] [address] [id number] [place] [address] May, [facility] [place] [facility] [address] [id number] [place] [address] May, [facility] [place] [facility] [address] [id number] [place] [address] Apr, [facility] [place] [facility] [address] [id number] [place] [address] Apr, [facility] [place] [facility] [address] [id number] [place] [address] Jan, [facility] [place] [facility] [address] [id number] [place] [address] Dec, [facility] [place] [facility] [address] [id number] [place] [address] Dec, [facility] [place] [facility] [address] [id number] [place] [address] Sep, [facility] [place] [facility] [address] [id number] [place] [address] Aug, [facility] [place] [facility] [address] [id number] [place] [address] Jul, [facility] [place] [facility] [address] [id number] [place] [address] Jul, [facility] [place] [facility] [address] [id number] [place] [address] Jul, [facility] [address] [id number] [place] [address] 20 Jul, 2011 [facility] [address] [id number] [place] [address] 18 Jul, 2011 [facility] [address] [id number] [place] [address] 17 Jul, 2011 [facility] [address] [id number] [place] [address] 08 Jul, 2011 [facility] [address] [id number] [place] [address] 07 Jul, 2011 [facility] [address] [id number] [place] [address] 16 Jun, 2011 [facility] [address] [facility] [id number] [place] [address] 16 Jun, 2011 [facility] [address] [id number] [place] [address] Jun, [facility] [address] [facility] [id number] [place] [address] Jun, [facility] [address] [facility] [id number] [place] [address] May, [facility] [address] [id number] [place] [address] May, [facility] [place] [facility] [address] [id number] [place] [address] May, [facility] [address] [id number] [place] [address] Apr, [facility] [place] [facility] [address] [id number] [place] [address] Nov, [facility] [address] [facility] [id number] [place] [address] Aug, [facility] [address] [id number] [address] May, [facility] [address] [id number] [address] Feb, [facility] [id number] [address] Nov, [facility] [id number] [address] October, [facility] [address] [id number] [address] October, IMMUNIZATIONS No Known Immunizations SOCIAL HISTORY Never Assessed REASON FOR VISIT EMR-[facility] PLAN OF CARE VITAL SIGNS MEDICATIONS No Known Medications RESULTS No Results PROCEDURES No Known procedures INSTRUCTIONS MEDICATIONS ADMINISTERED No Known Medications MEDICAL (GENERAL) HISTORY Type Description Date Medical History PCOS (Polycystic Ovary Syndrome) Medical History asthma Surgical History cholecystectomy Surgical History left menicus repair 07/2015
--- OUTSIDE RECORDS SUMMARY | 2018-12-17 04:27 | XMS REPORT ---
Author Author Migration, Doctor Organization [facility] Address Unknown Phone Unavailable Care Team Providers Care Wire Chief Name Role Phone Migration, Doctor Unavailable Unavailable PROBLEMS Type Condition ICD9-CM Code IRC45-LV Code Onset Dates Condition Status SNOMED Code Problem Counseling on substance use and abuse V65.42 Active 245995691 Problem Need for prophylactic vaccination and inoculation, Influenza V04.81 Active 478222430 Problem Dietary surveillance and counseling V65.3 Active 733666911 Problem Wheezing 786.07 Active 50354091 Problem Cough 786.2 Active 16266817 Problem Other malaise and fatigue 780.79 Active 130117819 Problem Abnormal weight gain 783.1 Active 833105297 Problem Other disorder of menstruation and other abnormal bleeding from female genital tract 626.8 Active 111615768 Problem Irregular menstrual cycle 626.4 Active 97409032 Problem Chronic cholecystitis 575.11 Active 10592651 Problem Polycystic ovaries 256.4 Active 78212670 Problem Unspecified backache 724.5 Active 702332614 Problem Other chronic pain G89.29 Active 65844245 Problem Pain in joint, ankle and foot 719.47 Active 067075271 Problem Influenza with other respiratory manifestations 487.1 Active 3685723 Problem Acute bronchitis 466.0 Active 87208827 Problem Dysfunction of Eustachian tube 381.81 Active 86706456 Problem Leukocytosis, unspecified 288.60 Active 402221416 ALLERGIES No Information ENCOUNTERS Encounter Location Date Diagnosis [facility] [address] [id number] [address] Mar, Bronchitis J40 [facility] [address] [address] Jan, [facility] [address] [address] Jan, Left foot pain M79.672 ; Pain in left ankle and joints of left foot M25.572 and Other chronic pain G89.29 [facility] [address] [facility] [id number] [place] [address] Jun, Left knee pain M25.562 [facility] [address] [facility] [id number] [place] [address] Sep, [facility] [address] [place] [address] Sep, [facility] [address] [facility] [id number] [address] Apr, [facility] [address] [facility] [id number] [place] [address] Apr, [facility] [address] [id number] [place] [address] Dec, [facility] [address] [address] Dec, [facility] [address] [id number] [place] [address] Nov, [facility] [address] [address] Nov, [facility] [address] [place] [address] October, [facility] [address] [id number] [address] Jul, [facility] [address] [facility] [id number] [address] Jul, [facility] [address] [id number] [address] Jun, [facility] [address] [facility] [id number], [place] [address] Jun, [facility] [address] [id number] [address] Jun, [facility] [place] [facility] [address] [id number] [place] [address] May, [facility] [place] [facility] [address] [id number] [place] [address] May, [facility] [place] [facility] [address] [id number] [place] [address] May, [facility] [place] [facility] [address] [id number] [place] [address] May, [facility] [place] [facility] [address] [id number] [place] [address] May, [facility] [place] [facility] [address] [id number] [place] [address] May, [facility] [place] [facility] [address] [id number] [place] [address] Apr, [facility] [place] [facility] [address] [id number] [place] [address] Apr, [facility] [place] [facility] [address] [id number] [place] [address] Jan, [facility] [place] [facility] [address] [id number] [place] [address] Dec, [facility] [place] [facility] [address] [id number] [place] [address] Dec, [facility] [place] [facility] [address] [id number] [place] [address] Sep, [facility] [place] [facility] [address] [id number] [place] [address] Aug, [facility] [place] [facility] [address] [id number] [place] [address] Jul, [facility] [place] [facility] [address] [id number] [place] [address] Jul, [facility] [place] [facility] [address] [id number] [place] [address] Jul, [facility] [address] [id number] [place] [address] 20 Jul, 2011 [facility] [address] [id number] [place] [address] 18 Jul, 2011 [facility] [address] [id number] [place] [address] 17 Jul, 2011 [facility] [address] [id number] [place] [address] 08 Jul, 2011 [facility] [address] [id number] [place] [address] 07 Jul, 2011 [facility] [address] [id number] [place] [address] 16 Jun, 2011 [facility] [address] [facility] [id number] [place] [address] 16 Jun, 2011 [facility] [address] [id number] [place] [address] Jun, [facility] [address] [facility] [id number] [place] [address] Jun, [facility] [address] [facility] [id number] [place] [address] May, [facility] [address] [id number] [place] [address] May, [facility] [place] [facility] [address] [id number] [place] [address] May, [facility] [address] [id number] [place] [address] Apr, [facility] [place] [facility] [address] [id number] [place] [address] Nov, [facility] [address] [facility] [id number] [place] [address] Aug, [facility] [address] [id number] [address] May, [facility] [address] [id number] [address] Feb, [facility] [address] [address] Nov, [facility] [address] [address] October, [facility] [address] [id number] [address] October, IMMUNIZATIONS No Known Immunizations SOCIAL HISTORY Never Assessed REASON FOR VISIT [place] [place] VITAL SIGNS MEDICATIONS No Known Medications RESULTS No Results PROCEDURES No Known procedures INSTRUCTIONS MEDICATIONS ADMINISTERED No Known Medications MEDICAL (GENERAL) HISTORY Type Description Date Medical History PCOS (Polycystic Ovary Syndrome) Medical History asthma Surgical History cholecystectomy Surgical History left menicus repair 07/2015
--- OUTSIDE RECORDS SUMMARY | 2018-12-17 04:27 | XMS REPORT ---
Author Author Migration, Doctor Organization [facility] Address Unknown Phone Unavailable Care Team Providers Care Grain [employer] Plants Supervisor Name Role Phone Migration, Doctor Unavailable Unavailable PROBLEMS Type Condition ICD9-CM Code CEQ76-VA Code Onset Dates Condition Status SNOMED Code Problem Counseling on substance use and abuse V65.42 Active 743182104 Problem Need for prophylactic vaccination and inoculation, Influenza V04.81 Active 340420539 Problem Dietary surveillance and counseling V65.3 Active 688948294 Problem Wheezing 786.07 Active 70922332 Problem Cough 786.2 Active 10488758 Problem Other malaise and fatigue 780.79 Active 988862191 Problem Abnormal weight gain 783.1 Active 753474612 Problem Other disorder of menstruation and other abnormal bleeding from female genital tract 626.8 Active 556969849 Problem Irregular menstrual cycle 626.4 Active 39319947 Problem Chronic cholecystitis 575.11 Active 37682509 Problem Polycystic ovaries 256.4 Active 75855822 Problem Unspecified backache 724.5 Active 477361733 Problem Other chronic pain G89.29 Active 66163057 Problem Pain in joint, ankle and foot 719.47 Active 606782662 Problem Influenza with other respiratory manifestations 487.1 Active 3654289 Problem Acute bronchitis 466.0 Active 89815065 Problem Dysfunction of Eustachian tube 381.81 Active 01237029 Problem Leukocytosis, unspecified 288.60 Active 143375777 ALLERGIES No Information ENCOUNTERS Encounter Location Date Diagnosis [facility] [address] [id number], [place] [address] Mar, [facility]itis [facility] [address], [place] [address] Jan, [facility] [address], [place] [address] Jan, Left foot pain M79.672 ; Pain in left ankle and joints of left foot M25.572 and Other chronic pain G89.29 [facility] [address] [facility] [id number] [place] [address] Jun, Left knee pain M25.562 [facility] [address] [facility] [id number] [place] [address] Sep, [facility] [id number] [place] [address] Sep, [facility] [address] [facility] [id number], [place] [address] Apr, [facility] [address] [facility] [id number] [place] [address] Apr, [facility] [address] [id number] [place] [address] Dec, [facility] [address] [address] Dec, [facility] [address] [id number] [place] [address] Nov, [facility] [address] [address] Nov, [facility] [id number] [place] [address] October, [facility] [id number], [place] [address] Jul, [facility] [address] [facility] [id number], [place] [address] Jul, [facility] [address] [id number], [place] [address] Jun, [facility] [address] [facility] [id number], [place] [address] Jun, [facility] [address] [id number] [address] Jun, [facility] [place] [facility] [address] [id number] [place] [address] May, [facility] [place] [facility] [address] [id number] [place] [address] May, [facility] [place] [facility] [address] [id number] [place] [address] May, [facility] [place] [facility] [address] [id number] [place] [address] May, [facility] [place] [facility] [address] [id number] [place] [address] May, [facility] [place] [facility] [address] [id number] [place] [address] May, [facility] [place] [facility] [address] [id number] [place] [address] Apr, [facility] [place] [facility] [address] [id number] [place] [address] Apr, [facility] [place] [facility] [address] [id number] [place] [address] Jan, [facility] [place] [facility] [address] [id number] [place] [address] Dec, [facility] [place] [facility] [address] [id number] [place] [address] Dec, [facility] [place] [facility] [address] [id number] [place] [address] Sep, [facility] [place] [facility] [address] [id number] [place] [address] Aug, [facility] [place] [facility] [address] [id number] [place] [address] Jul, [facility] [place] [facility] [address] [id number] [place] [address] Jul, [facility] [place] [facility] [address] [id number] [place] [address] Jul, [facility] [address] [id number] [place] [address] 20 Jul, 2011 [facility] [address] [id number] [place] [address] 18 Jul, 2011 [facility] [address] [id number] [place] [address] 17 Jul, 2011 [facility] [address] [id number] [place] [address] 08 Jul, 2011 [facility] [address] [id number] [place] [address] 07 Jul, 2011 [facility] [address] [id number] [place] [address] 16 Jun, 2011 [facility] [address] [facility] [id number] [place] [address] 16 Jun, 2011 [facility] [address] [id number] [place] [address] Jun, [facility] [address] [facility] [id number] [place] [address] Jun, [facility] [address] [facility] [id number] [place] [address] May, [facility] [address] [id number] [place] [address] May, [facility] [place] [facility] [address] [id number] [place] [address] May, [facility] [address] [id number] [place] [address] Apr, [facility] [place] [facility] [address] [id number] [place] [address] Nov, [facility] [address] [facility] [id number] [place] [address] Aug, [facility] [address] [id number], [place] [address] May, [facility] [address] [id number], [place] [address] Feb, [facility] [address], [place] [address] Nov, [facility] [address], [place] [address] October, [facility] [address] [id number], [place] [address] October, IMMUNIZATIONS No Known Immunizations SOCIAL HISTORY Never Assessed REASON FOR VISIT EMR-[facility] [place] PLAN OF CARE VITAL SIGNS MEDICATIONS No Known Medications RESULTS No Results PROCEDURES No Known procedures INSTRUCTIONS MEDICATIONS ADMINISTERED No Known Medications MEDICAL (GENERAL) HISTORY Type Description Date Medical History PCOS (Polycystic Ovary Syndrome) Medical History asthma Surgical History cholecystectomy Surgical History left menicus repair 07/2015
--- OUTSIDE RECORDS SUMMARY | 2018-12-17 04:27 | XMS REPORT ---
Author Author Migration, Doctor Organization [facility] Address Unknown Phone Unavailable Care Team Providers Care Gui Developer Name Role Phone Migration, Doctor Unavailable Unavailable PROBLEMS Type Condition ICD9-CM Code NGW08-UQ Code Onset Dates Condition Status SNOMED Code Problem Counseling on substance use and abuse V65.42 Active 719645781 Problem Need for prophylactic vaccination and inoculation, Influenza V04.81 Active 423920475 Problem Dietary surveillance and counseling V65.3 Active 032994031 Problem Wheezing 786.07 Active 01647106 Problem Cough 786.2 Active 06507404 Problem Other malaise and fatigue 780.79 Active 340341327 Problem Abnormal weight gain 783.1 Active 450483448 Problem Other disorder of menstruation and other abnormal bleeding from female genital tract 626.8 Active 848891394 Problem Irregular menstrual cycle 626.4 Active 85341667 Problem Chronic cholecystitis 575.11 Active 01189533 Problem Polycystic ovaries 256.4 Active 72039090 Problem Unspecified backache 724.5 Active 353157970 Problem Other chronic pain G89.29 Active 17730776 Problem Pain in joint, ankle and foot 719.47 Active 007254886 Problem Influenza with other respiratory manifestations 487.1 Active 6370893 Problem Acute bronchitis 466.0 Active 60883899 Problem Dysfunction of Eustachian tube 381.81 Active 83406865 Problem Leukocytosis, unspecified 288.60 Active 604376932 ALLERGIES No Information ENCOUNTERS Encounter Location Date Diagnosis [facility] [address] [id number], [place] [address] Mar, [facility]chitis J40 [facility] [address], [place] [address] Jan, [facility] [address], [place] [address] Jan, Left foot pain M79.672 ; Pain in left ankle and joints of left foot M25.572 and Other chronic pain G89.29 [facility] [address] [facility] [id number] [place] [address] Jun, Left knee pain M25.562 [facility] [address] [facility] [id number] [place] [address] Sep, [facility] [id number] [place] [address] Sep, [facility] [address] [facility] [id number], [place] [address] Apr, [facility] [address] [facility] [id number] [place] [address] Apr, [facility] [address] [id number] [place] [address] Dec, [facility] [address], [place] [address] Dec, [facility] [address] [id number] [place] [address] Nov, [facility] [address], [place] [address] Nov, [facility] [id number] [address] October, [facility] [address] [id number], [place] [address] Jul, [facility] [address] [facility] [id number], [place] [address] Jul, [facility] [address] [id number], [place] [address] Jun, [facility] [address] [facility] [id number], [place] [address] Jun, [facility] [address] [id number], [place] [address] Jun, [facility] [place] [facility] [address] [id number] [place] [address] May, [facility] [place] [facility] [address] [id number] [place] [address] May, [facility] [place] [facility] [address] [id number] [place] [address] May, [facility] [place] [facility] [address] [id number] [place] [address] May, [facility] [place] [facility] [address] [id number] [place] [address] May, [facility] [place] [facility] [address] [id number] [place] [address] May, [facility] [place] [facility] [address] [id number] [place] [address] Apr, [facility] [place] [facility] [address] [id number] [place] [address] Apr, [facility] [place] [facility] [address] [id number] [place] [address] Jan, [facility] [place] [facility] [address] [id number] [place] [address] Dec, [facility] [place] [facility] [address] [id number] [place] [address] Dec, [facility] [place] [facility] [address] [id number] [place] [address] Sep, [facility] [place] [facility] [address] [id number] [place] [address] Aug, [facility] [place] [facility] [address] [id number] [place] [address] Jul, [facility] [place] [facility] [address] [id number] [place] [address] Jul, [facility] [place] [facility] [address] [id number] [place] [address] Jul, [facility] [address] [id number] [place] [address] 20 Jul, 2011 [facility] [address] [id number] [place] [address] 18 Jul, 2011 [facility] [address] [id number] [place] [address] 17 Jul, 2011 [facility] [address] [id number] [place] [address] 08 Jul, 2011 [facility] [address] [id number] [place] [address] 07 Jul, 2011 [facility] [address] [id number] [place] [address] 16 Jun, 2011 [facility] [address] [facility] [id number] [place] [address] 16 Jun, 2011 [facility] [address] [id number] [place] [address] Jun, [facility] [address] [facility] [id number] [place] [address] Jun, [facility] [address] [facility] [id number] [place] [address] May, [facility] [address] [id number] [place] [address] May, [facility] [place] [facility] [address] [id number] [place] [address] May, [facility] [address] [id number] [place] [address] Apr, [facility] [place] [facility] [address] [id number] [place] [address] Nov, [facility] [address] [facility] [id number] [place] [address] Aug, [facility] [address] [id number] [address] May, [facility] [address] [id number] [address] Feb, [facility] [id number] [address] Nov, [facility] [id number] [address] October, [facility] [address] [id number] [address] October, IMMUNIZATIONS No Known Immunizations SOCIAL HISTORY Never Assessed REASON FOR VISIT EMR-[facility] PLAN OF CARE VITAL SIGNS MEDICATIONS No Known Medications RESULTS No Results PROCEDURES No Known procedures INSTRUCTIONS MEDICATIONS ADMINISTERED No Known Medications MEDICAL (GENERAL) HISTORY Type Description Date Medical History PCOS (Polycystic Ovary Syndrome) Medical History asthma Surgical History cholecystectomy Surgical History left menicus repair 07/2015
--- OUTSIDE RECORDS SUMMARY | 2018-12-17 04:28 | XMS REPORT ---
Author Author Migration, Doctor Organization [facility] Address Unknown Phone Unavailable Care Team Providers Care Pharmacy Innovation Assistant Name Role Phone Migration, Doctor Unavailable Unavailable PROBLEMS Type Condition ICD9-CM Code [id number] Code Onset Dates Condition Status SNOMED Code Problem Counseling on substance use and abuse V65.42 Active 225607462 Problem Need for prophylactic vaccination and inoculation, Influenza V04.81 Active 058493179 Problem Dietary surveillance and counseling V65.3 Active 575757999 Problem Wheezing 786.07 Active 57243976 Problem Cough 786.2 Active 65083542 Problem Other malaise and fatigue 780.79 Active 862526410 Problem Abnormal weight gain 783.1 Active 112173002 Problem Other disorder of menstruation and other abnormal bleeding from female genital tract 626.8 Active 844765050 Problem Irregular menstrual cycle 626.4 Active 97752411 Problem Chronic cholecystitis 575.11 Active 81064703 Problem Polycystic ovaries 256.4 Active 84448510 Problem Unspecified backache 724.5 Active 354446562 Problem Other chronic pain G89.29 Active 02006990 Problem Pain in joint, ankle and foot 719.47 Active 483360983 Problem Influenza with other respiratory manifestations 487.1 Active 0861713 Problem Acute bronchitis 466.0 Active 29242484 Problem Dysfunction of Eustachian tube 381.81 Active 54505644 Problem Leukocytosis, unspecified 288.60 Active 885196026 ALLERGIES No Information ENCOUNTERS Encounter Location Date Diagnosis [facility] [id number] [address] Mar, [facility]itis J[facility] [address] [address] Jan, [facility] [address] [address] Jan, Left foot pain M79.672 ; Pain in left ankle and joints of left foot M25.572 and Other chronic pain G89.29 [facility] [address] [facility] [id number] [place] [address] Jun, Left knee pain M25.562 [facility] [address] [facility] [id number] [place] [address] Sep, [facility] [address] [place] [address] Sep, [facility] [address] [facility] [id number] [address] Apr, [facility] [address] [facility] [id number] [place] [address] Apr, [facility] [id number] [place] [address] Dec, [facility] [address] [address] Dec, [facility] [id number] [place] [address] Nov, [facility] [address] [address] Nov, [facility] [address] [place] [address] October, [facility] [id number] [address] Jul, [facility] [address] [facility] [id number], [place] [address] Jul, [facility] [id number] [address] Jun, [facility] [address] [facility] [id number], [place] [address] Jun, [facility] [id number] [address] Jun, [facility] [place] [facility] [address] [id number] [place] [address] May, [facility] [place] [facility] [address] [id number] [place] [address] May, [facility] [place] [facility] [address] [id number] [place] [address] May, [facility] [place] [facility] [address] [id number] [place] [address] May, [facility] [place] [facility] [address] [id number] [place] [address] May, [facility] [place] [facility] [address] [id number] [place] [address] May, [facility] [place] [facility] [address] [id number] [place] [address] Apr, [facility] [place] [facility] [address] [id number] [place] [address] Apr, [facility] [place] [facility] [address] [id number] [place] [address] Jan, [facility] [place] [facility] [address] [id number] [place] [address] Dec, [facility] [place] [facility] [address] [id number] [place] [address] Dec, [facility] [place] [facility] [address] [id number] [place] [address] Sep, [facility] [place] [facility] [address] [id number] [place] [address] Aug, [facility] [place] [facility] [address] [id number] [place] [address] Jul, [facility] [place] [facility] [address] [id number] [place] [address] Jul, [facility] [place] [facility] [address] [id number] [place] [address] Jul, [facility] [address] [id number] [place] [address] 20 Jul, 2011 [facility] [address] [id number] [place] [address] 18 Jul, 2011 [facility] [address] [id number] [place] [address] 17 Jul, 2011 [facility] [address] [id number] [place] [address] 08 Jul, 2011 [facility] [address] [id number] [place] [address] 07 Jul, 2011 [facility] [address] [id number] [place] [address] 16 Jun, 2011 [facility] [address] [facility] [id number] [place] [address] 16 Jun, 2011 [facility] [address] [id number] [place] [address] Jun, [facility] [address] [facility] [id number] [place] [address] Jun, [facility] [address] [facility] [id number] [place] [address] May, [facility] [address] [id number] [place] [address] May, [facility] [place] [facility] [address] [id number] [place] [address] May, [facility] [address] [id number] [place] [address] Apr, [facility] [place] [facility] [address] [id number] [place] [address] Nov, [facility] [address] [facility] [id number] [place] [address] Aug, [facility] [id number], [place] [address] May, [facility] [id number], [place] [address] Feb, [facility] [address], [place] [address] Nov, [facility] [address], [place] [address] October, [facility] [id number], [place] [address] October, IMMUNIZATIONS No Known Immunizations SOCIAL HISTORY Never Assessed REASON FOR VISIT [facility] [place] PLAN OF CARE VITAL SIGNS MEDICATIONS No Known Medications RESULTS No Results PROCEDURES No Known procedures INSTRUCTIONS MEDICATIONS ADMINISTERED No Known Medications MEDICAL (GENERAL) HISTORY Type Description Date Medical History PCOS (Polycystic Ovary Syndrome) Medical History asthma Surgical History cholecystectomy Surgical History left menicus repair 07/2015
--- OUTSIDE RECORDS SUMMARY | 2018-12-17 04:28 | XMS REPORT ---
Author Author Migration, Doctor Organization [facility] Address Unknown Phone Unavailable Care Team Providers Care Software Sales Consultant Name Role Phone Migration, Doctor Unavailable Unavailable PROBLEMS Type Condition ICD9-CM Code ZKG41-NP Code Onset Dates Condition Status SNOMED Code Problem Counseling on substance use and abuse V65.42 Active 052350612 Problem Need for prophylactic vaccination and inoculation, Influenza V04.81 Active 671991053 Problem Dietary surveillance and counseling V65.3 Active 939561934 Problem Wheezing 786.07 Active 50877079 Problem Cough 786.2 Active 01263767 Problem Other malaise and fatigue 780.79 Active 480534434 Problem Abnormal weight gain 783.1 Active 345742833 Problem Other disorder of menstruation and other abnormal bleeding from female genital tract 626.8 Active 170489690 Problem Irregular menstrual cycle 626.4 Active 42037081 Problem Chronic cholecystitis 575.11 Active 58536393 Problem Polycystic ovaries 256.4 Active 12030984 Problem Unspecified backache 724.5 Active 282366286 Problem Other chronic pain G89.29 Active 90699838 Problem Pain in joint, ankle and foot 719.47 Active 411146383 Problem Influenza with other respiratory manifestations 487.1 Active 5367555 Problem Acute bronchitis 466.0 Active 96758301 Problem Dysfunction of Eustachian tube 381.81 Active 35065657 Problem Leukocytosis, unspecified 288.60 Active 418822511 ALLERGIES No Information ENCOUNTERS Encounter Location Date Diagnosis [facility] [id number] [address] Mar, Bronchitis J[facility] [address] [address] Jan, [facility] [address] [address] Jan, Left foot pain M79.672 ; Pain in left ankle and joints of left foot M25.572 and Other chronic pain G89.29 [facility] [address] [facility] [id number] [place] [address] Jun, Left knee pain M25.562 [facility] [address] [facility] [id number] [place] [address] Sep, [facility] [id number] [place] [address] Sep, [facility] [address] [facility] [id number] [address] Apr, [facility] [address] [facility] [id number] [place] [address] Apr, [facility] [id number] [place] [address] Dec, [facility] [address] [address] Dec, [facility] [id number] [place] [address] Nov, [facility] [address] [address] Nov, [facility] [id number] [place] [address] October, [facility] [id number] [address] Jul, [facility] [address] [facility] [id number] [address] Jul, [facility] [id number] [address] Jun, [facility] [address] [facility] [id number] [address] Jun, [facility] [id number] [address] Jun, [facility] [place] [facility] [address] [id number] [place] [address] May, [facility] [place] [facility] [address] [id number] [place] [address] May, [facility] [place] [facility] [address] [id number] [place] [address] May, [facility] [place] [facility] [address] [id number] [place] [address] May, [facility] [place] [facility] [address] [id number] [place] [address] May, [facility] [place] [facility] [address] [id number] [place] [address] May, [facility] [place] [facility] [address] [id number] [place] [address] Apr, [facility] [place] [facility] [address] [id number] [place] [address] Apr, [facility] [place] [facility] [address] [id number] [place] [address] Jan, [facility] [place] [facility] [address] [id number] [place] [address] Dec, [facility] [place] [facility] [address] [id number] [place] [address] Dec, [facility] [place] [facility] [address] [id number] [place] [address] Sep, [facility] [place] [facility] [address] [id number] [place] [address] Aug, [facility] [place] [facility] [address] [id number] [place] [address] Jul, [facility] [place] [facility] [address] [id number] [place] [address] Jul, [facility] [place] [facility] [address] [id number] [place] [address] Jul, [facility] [address] [id number] [place] [address] 20 Jul, 2011 [facility] [address] [id number] [place] [address] 18 Jul, 2011 [facility] [address] [id number] [place] [address] 17 Jul, 2011 [facility] [address] [id number] [place] [address] 08 Jul, 2011 [facility] [address] [id number] [place] [address] 07 Jul, 2011 [facility] [address] [id number] [place] [address] 16 Jun, 2011 [facility] [address] [facility] [id number] [place] [address] 16 Jun, 2011 [facility] [address] [id number] [place] [address] Jun, [facility] [address] [facility] [id number] [place] [address] Jun, [facility] [address] [facility] [id number] [place] [address] May, [facility] [address] [id number] [place] [address] May, [facility] [place] [facility] [address] [id number] [place] [address] May, [facility] [address] [id number] [place] [address] Apr, [facility] [place] [facility] [address] [id number] [place] [address] Nov, [facility] [address] [facility] [id number] [place] [address] Aug, [facility] [address] [facility] [id number] [place] [address] May, [facility] [address] [facility] [id number] [address] Feb, [facility] [address] [facility] [id number] [address] Nov, [facility] [address] [facility] [id number] [address] October, [facility] [address] [facility] [id number] [address] October, IMMUNIZATIONS No Known Immunizations SOCIAL HISTORY Never Assessed REASON FOR VISIT [facility] PLAN OF CARE VITAL SIGNS MEDICATIONS Medication Instructions Dosage Frequency Start Date End Date Duration Status Zithromax Z-Rashid 250 mg 2 Tablet by Oral route 1 time per day then 1 tablet (250 mg) by oral route once daily for 4 dayson day 1 then take 1 tab daily on days 2-5 Jul, Active Promethazine-Codeine 6.25-10 mg/5 mL 5 mL by Oral route every 4 hours for 5 day(s) Jul, Active Provera 10 mg 1 tablet by Oral route 1 time per daytake 21 dqys off 7 days Dec, Active Guaifenesin 600 mg take 600 mg by Oral route every 12 hours Nov, Active Phenergan 6.25 mg/5 mL 5 mL by Oral route 4 times per day for 7 day(s) Aug, Active metformin 500 mg 1 tablet by Oral route 3 times per daywith meals Dec, Active Hydrocodone-Acetaminophen 5-325 mg take 1 tablet by oral route every 4 hours as needed for pain Nov, Active Albuterol Sulfate 90 mcg/actuation take 2 puffs by Inhalation route every 4- 6 hours as needed PRN cough or wheezing Nov, Active Spironolactone 100 mg take 1 tablet (100 mg) by oral route once daily Apr, Active Ibuprofen 800 mg take 1 tablet (800 mg) by oral route 3 times per day with food May, Active RESULTS No Results PROCEDURES No Known procedures INSTRUCTIONS MEDICATIONS ADMINISTERED No Known Medications MEDICAL (GENERAL) HISTORY Type Description Date Medical History PCOS (Polycystic Ovary Syndrome) Medical History asthma Surgical History cholecystectomy Surgical History left menicus repair 07/2015
--- OUTSIDE RECORDS SUMMARY | 2018-12-17 04:31 | XMS REPORT | Continuity of Care Document ---
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 hemoglobin concentration measurement (mass/volume) 34 g/dL 32-36 Automated erythrocyte distribution width ratio 14.2 % 10.0- 14.5 Automated blood platelet count (count/volume) 317 10*3/uL [...] Blood monocytes automated count (number/volume) 0.7 10*3 0.0- 1.0 Automated eosinophil count 0.2 10*3/uL 0.0-0.3 Automated [...] gravity of urine by test strip 1.015 1.016-1.022 Urine protein assay by test strip, semi-quantitative [...] sediment leukocyte count by microscopy (number/high power field) NONE NRG Bacteria detection in urine sediment [...] Serum or plasma aspartate aminotransferase measurement (enzymatic activity/volume) 39 U/L 5-34 Serum or plasma alanine aminotransferase measurement (enzymatic activity/volume) 57 U/L 0-55 Serum or plasma protein measurement (mass/volume) 6.8 g/dL 6.4-8.2 Serum or plasma albumin measurement (mass/volume) 3.9 g/dL 3.2-4.5 Serum or plasma troponin i.cardiac measurement (mass/volume) - 09/07/16 08:41 Serum or plasma troponin i.cardiac measurement (mass/volume) < ng/mL <0.30 Bacterial urine culture - 09/07/16 08:41 Bacterial urine culture FOOTNOTE NRG Urine beta human chorionic gonadotropin (hCG) measurement - 10/02/16 09:41 Urine beta human chorionic gonadotropin (hCG) measurement NEGATIVE NEGATIVE Capillary blood glucose measurement by glucometer (mass/volume) - 10/02/16 10:02 Capillary blood glucose measurement by glucometer (mass/volume) 245 mg/dL 70-110 Urine beta human chorionic gonadotropin (hCG) measurement - 11/14/17 08:09 Urine beta human chorionic gonadotropin (hCG) measurement NEGATIVE NEGATIVE Methicillin resistant Staphylococcus aureus (MRSA) screening culture - 11/14/17 08:09 Methicillin resistant Staphylococcus aureus (MRSA) screening culture NEG NRG Capillary blood glucose measurement by glucometer (mass/volume) - 11/14/17 08:24 Capillary blood glucose measurement by glucometer (mass/volume) 308 mg/dL 70-110 Capillary blood glucose measurement by glucometer (mass/volume) - 11/14/17 11:13 Capillary blood glucose measurement by glucometer (mass/volume) 132 mg/dL 70-110 Urine beta human chorionic gonadotropin (hCG) measurement - 07/15/18 10:50 Urine beta human chorionic gonadotropin (hCG) measurement NEGATIVE NEGATIVE Methicillin resistant Staphylococcus aureus (MRSA) screening culture - 07/15/18 10:50 Methicillin resistant Staphylococcus aureus (MRSA) screening culture NEG NRG Capillary blood glucose measurement by glucometer (mass/volume) - 07/15/18 10:57 Capillary blood glucose measurement by glucometer (mass/volume) 206 mg/dL 70-110 Complete urinalysis with reflex to culture - 12/16/18 20:12 Urine color determination DARK YELLOW NRG Urine clarity determination SL CLOUDY NRG Urine pH measurement by test strip 6.5 5-9 Specific gravity of urine by test strip 1.015 1.016-1.022 Urine protein assay by test strip, semi-quantitative 4+ NEGATIVE Urine glucose detection by automated test strip NEGATIVE NEGATIVE Erythrocytes detection in urine sediment by light microscopy 5+ NEGATIVE Urine ketones detection by automated test strip 1+ NEGATIVE Urine nitrite detection by test strip POSITIVE NEGATIVE Urine total bilirubin detection by test strip 3+ NEGATIVE Urine urobilinogen measurement by automated test strip (mass/volume) 8 mg/dL NORMAL Urine leukocyte esterase detection by dipstick 3+ NEGATIVE Automated urine sediment erythrocyte count by microscopy (number/high power field) > [HPF] NRG Automated urine sediment leukocyte count by microscopy (number/high power field) [HPF] NRG Bacteria detection in urine sediment by light microscopy TRACE NRG Squamous epithelial cells detection in urine sediment by light microscopy 5-10 NRG Crystals detection in urine sediment by light microscopy NONE NRG Casts detection in urine sediment by light microscopy NONE NRG Mucus detection in urine sediment by light microscopy NEGATIVE NRG Complete urinalysis with reflex to culture YES NRG Complete blood count (CBC) with automated white blood cell (WBC) differential - 12/16/18 20:37 Blood leukocytes automated count (number/volume) 21.9 10*3/uL 4.3-11.0 Blood erythrocytes automated count (number/volume) 5.29 10*6/uL 4.35-5.85 Venous blood hemoglobin measurement (mass/volume) 15.3 g/dL 11.5-16.0 Blood hematocrit (volume fraction) 45 % 35-52 Automated erythrocyte mean corpuscular volume 86 [foz_us] 80-99 Automated erythrocyte mean corpuscular hemoglobin (mass per erythrocyte) 29 pg 25-34 Automated erythrocyte mean corpuscular hemoglobin concentration measurement (mass/volume) 34 g/dL 32-36 Automated erythrocyte distribution width ratio 14.0 % 10.0- 14.5 Automated blood platelet count (count/volume) 458 10*3/uL 130-400 Automated blood platelet mean volume measurement 10.3 [foz_us] 7.4-10.4 Automated blood neutrophils/100 leukocytes 78 % 42-75 Automated blood lymphocytes/100 leukocytes 18 % 12-44 Blood monocytes/100 leukocytes 4 % 0-12 Automated blood eosinophils/100 leukocytes 1 % 0-10 Automated blood basophils/100 leukocytes 0 % 0-10 Blood neutrophils automated count (number/volume) 16.9 10*3 1.8-7.8 Blood lymphocytes automated count (number/volume) 3.8 10*3 1.0-4.0 Blood monocytes automated count (number/volume) 0.9 10*3 0.0- 1.0 Automated eosinophil count 0.1 10*3/uL 0.0-0.3 Automated blood basophil count (count/volume) 0.1 10*3/uL 0.0-0.1 Manual absolute plasma cell count - 12/16/18 20:37 Blood monocytes/100 leukocytes 1 % NR Manual blood segmented neutrophils/100 leukocytes 82 % NRG Blood band neutrophils/100 leukocytes 1 % NRG Manual blood lymphocytes/100 leukocytes 11 % NRG Manual eosinophils/100 leukocytes in nose 0 % NRG Manual blood basophils/100 leukocytes 0 % NRG Blood lymphocytes variant/100 leukocytes 5 % NRG Blood anisocytosis detection by light microscopy [facility] Comprehensive metabolic panel - 12/16/18 20:37 Serum or plasma sodium measurement (moles/volume) 138 mmol/L 135-145 Serum or plasma potassium measurement (moles/volume) 3.9 mmol/L 3.6-5.0 Serum or plasma chloride measurement (moles/volume) 101 mmol/L 98-107 Carbon dioxide 23 mmol/L 21-32 Serum or plasma anion gap determination (moles/volume) 14 mmol/L 5-14 Serum or plasma urea nitrogen measurement (mass/volume) 7 mg/dL 7-18 Serum or plasma creatinine measurement (mass/volume) 0.69 mg/dL 0.60-1.30 Serum or plasma urea nitrogen/creatinine mass ratio 10 NRG Serum or plasma creatinine measurement with calculation of estimated glomerular filtration rate > NRG Serum or plasma glucose measurement (mass/volume) 194 mg/dL 70-105 Serum or plasma calcium measurement (mass/volume) 9.9 mg/dL 8.5-10.1 Serum or plasma total bilirubin measurement (mass/volume) 0.7 mg/dL 0.1-1.0 Serum or plasma alkaline phosphatase measurement (enzymatic activity/volume) 99 U/L 40-136 Serum or plasma aspartate aminotransferase measurement (enzymatic activity/volume) 24 U/L 5-34 Serum or plasma alanine aminotransferase measurement (enzymatic activity/volume) 39 U/L 0-55 Serum or plasma protein measurement (mass/volume) 7.3 g/dL 6.4-8.2 Serum or plasma albumin measurement (mass/volume) 4.2 g/dL 3.2-4.5 CALCIUM CORRECTED 9.7 mg/dL 8.5-10.1 Blood lactic acid measurement (moles/volume) - 12/16/18 21:22 Blood lactic acid measurement (moles/volume) 1.53 mmol/L 0.50- 2.00 Encounters ACCT No. Visit Date/Time Discharge Status Pt. Type Provider Facility Loc./Unit Complaint [id number] 05/17/2013 12:57:00 05/17/2013 23:59:59 CLS Outpatient ITZ LIMA DO [id number] 07/22/2012 14:11:00 07/22/2012 23:59:59 CLS Outpatient [id number] 06/10/2012 11:54:00 06/10/2012 23:59:59 CLS Outpatient ITZ LIMA DO [id number] 01/29/2012 14:35:00 01/29/2012 23:59:59 CLS Outpatient [id number] 12/16/2012 17:14:00 Document Registration [id number] 12/02/2012 16:48:00 Document Registration [id number] 11/19/2012 17:41:00 Document Registration [id number] 11/12/2012 15:43:00 Document Registration [id number] 05/03/2017 09:45:35 05/03/2017 23:59:59 CLS Outpatient [id number] 03/26/2017 19:20:00 03/26/2017 23:59:59 CLS Outpatient MICHELLE MARKS APRN [facility] [id number] 07/15/2018 10:35:00 07/15/2018 14:48:00 DIS Outpatient WILLY CROCKER MD [facility] SDC WT LOSS/NAUSEA/CHRONIC DIARRHEA/CYST [id number] 07/11/2018 05:31:00 07/11/2018 10:25:00 DIS Outpatient WILLY CROCKER MD [facility] PREOP EXC. RT AXILLA CYST/EGD/COLO [id number] 03/25/2018 16:40:00 03/25/2018 23:59:59 CLS Outpatient FAHAD ALARCON APRN [facility] RAD COUGH [id number] 11/26/2017 18:02:00 11/26/2017 23:59:59 CLS Outpatient BIBIANA HINDS MD [facility] RAD TAILBONE PAIN;FALL [id number] 11/14/2017 07:58:00 11/14/2017 14:25:00 DIS Outpatient YAA RAINEY MD [facility] SDC LEFT TORN ACHILLES TENDON [id number] 11/09/2017 05:33:00 11/09/2017 10:43:00 DIS Outpatient YAA RAINEY MD [facility] PREOP LEFT ACHILLES TENDON REPAIR - PRONE [id number] 11/07/2017 20:10:00 11/07/2017 21:10:00 DIS Emergency ELVIRA PENA CHEF DE [place]OID [facility] ER ANKLE INJ [id number] 06/14/2017 13:38:00 06/14/2017 23:59:59 CLS Outpatient FAHAD ALARCON CHEF DE [place]OID [facility] RAD LT FOOT PAIN [id number] 03/15/2017 00:29:00 03/15/2017 23:59:59 CLS Preadmit CARLA GIORDANO [facility] ONC [id number] 12/14/2016 13:55:00 03/14/2017 00:01:00 DIS Outpatient CARLA GIORDANO [facility] ONC [id number] 02/11/2017 15:06:00 02/11/2017 23:59:59 CLS Outpatient ANCELMO CRAIG CHEF [place] [facility] RAD M79.672 [id number] 02/09/2017 10:00:00 02/09/2017 23:59:59 CLS Preadmit FAHAD ALARCON CHEF DE FROID [facility] DSME DM2 [id number] 11/10/2016 10:05:00 02/08/2017 00:01:00 DIS Outpatient FAHAD ALARCON CHEF DE [place]OID [facility] DSME DM2 [id number] 01/19/2017 12:10:00 01/19/2017 23:59:59 CLS Outpatient CHIDI OROZCO DO [facility] RAD SCREENING Z12.31,MENORRHAGIA N92.0 [id number] 10/02/2016 09:35:00 10/02/2016 23:59:59 CLS Outpatient WILLY CROCKER MD [facility] ENDO HISTORY OF ULCERS/ REFLUX [id number] 09/28/2016 05:48:00 09/28/2016 15:15:00 DIS Outpatient WILLY CROCKER MD [facility] PREOP EGD [id number] 09/07/2016 07:24:00 09/07/2016 23:59:59 CLS Outpatient FAHAD ALARCON APRN [facility] RAD ABDOMINAL PAIN, EPIGASTRIC PAIN [id number] 09/07/2016 08:28:00 09/07/2016 11:26:00 DIS Emergency KYLAH THOMASON, SHERI Bernardo [facility] ER CHEST PAIN [id number] 05/06/2016 14:00:00 05/06/2016 17:02:00 DIS Emergency JUWAN THOMASON, SANDRA Medina [facility] ER ELEVATED BLOOD SUGAR [id number] 03/04/2016 13:33:00 03/04/2016 23:59:59 CLS Outpatient PORSCHE GARCIA [employer] [facility] QUICK COUGH [id number] 03/02/2016 13:10:00 03/02/2016 23:59:59 CLS Outpatient FAHAD ALARCON APRN [facility] RAD L ARM NODULE [id number] 07/21/2015 06:03:00 07/21/2015 23:59:59 CLS Outpatient YAA RAINEY MD [facility] SDC LEFT TORN MEDIAL MENISCUS [id number] 07/15/2015 15:01:00 07/15/2015 23:59:59 CLS Outpatient YAA RAINEY MD [facility] PREOP LEFT TORN MEDIAL MENISCUS [id number] 06/29/2015 08:57:00 06/29/2015 23:59:59 CLS Outpatient ARTHUR CAMPOS [employer] [facility] RAD LEFT KNEE PAIN [id number] 05/13/2013 13:58:00 05/13/2013 23:59:59 CLS Outpatient JENNIFER SISSY [employer] [facility] QUICK FEVER/SOA [id number] 02/24/2013 08:06:00 02/24/2013 11:20:00 DIS Outpatient WILLY CROCKER MD [facility] SDC UPPER GASTRIC PAIN [id number] 02/20/2013 07:13:00 02/20/2013 23:59:59 CLS Outpatient WILLY CROCKER MD [facility] PREOP UPPER GASTRIC PAIN [id number] 01/31/2013 20:10:00 02/01/2013 07:20:00 DIS Outpatient KATHARINA MENDOZA [employer] [facility] SLEEP SNORING,CHOKING,ABN LIMB MOVEMENT,EXCESSIVE DAYTIM [id number] 01/10/2013 08:53:00 01/10/2013 23:59:59 CLS Outpatient ALEXANDRO MENDOZA DO [facility] RAD RUQ PAIN,BLOATING [id number] 01/04/2013 10:30:00 01/04/2013 23:59:59 CLS Outpatient KATHARINA MENDOZA [employer] [facility] LAB PCOS, JOINT PAIN, INSOMNIA, VITAMIN DEFICIENCY [id number] 11/28/2012 22:54:00 11/29/2012 02:09:00 DIS Emergency PRAKASH DEMARCO [facility] ER ABD PAIN [id number] 11/28/2012 19:36:00 11/28/2012 23:59:59 CLS Emergency [id number] 11/06/2012 20:13:00 11/08/2012 11:07:00 DIS Inpatient TASNEEM THOMASON, NICHOLAS Duncan [facility] SURGICAL INTRACTABLE RUQ PAIN,LEUKOCYTOSIS [id number] 12/16/2018 21:30:00 ACT Inpatient BIBIANA HINDS MD [facility] 4TH UTI;PYELONEPHRITIS [id number] 07/27/2017 08:55:00 Document Registration [id number] 07/27/2017 08:54:00 Document Registration [id number] 09/18/2015 21:54:00 Document Registration [id number] 07/15/2015 15:08:00 Document Registration [id number] 06/13/2012 14:25:00 Document Registration [id number] 01/15/2012 10:30:00 Document Registration [id number] 09/09/2009 20:16:00 Document Registration
[2018-12-17] MEDS: NS IV 1000 ML 1,000 ML IV SCH (04:51)
[2018-12-17] MEDS ORDERED: KETOROLAC 30 MG/ML VIAL IVP SCH (06:00)
[2018-12-17 06:33] LABS: BASOPHILS % (AUTO) 0 % (0-10); EOSINOPHILS # (AUTO) 0.1 10^3/uL (0.0-0.3); EOSINOPHILS % (AUTO) 1 % (0-10); HEMATOCRIT 40 % (35-52); LYMPHOCYTES # (AUTO) 3.9 X 10^3 (1.0-4.0); LYMPHOCYTES % (AUTO) 25 % (12-44); MEAN CORPUSCULAR HEMOGLOBIN 29 PG (25-34); MEAN CORPUSCULAR HGB CONC 33 G/DL (32-36); MEAN CORPUSCULAR VOLUME 87 FL (80-99); MEAN PLATELET VOLUME 10.3 FL (7.4-10.4); MONOCYTES # (AUTO) 0.8 X 10^3 (0.0-1.0); MONOCYTES % (AUTO) 5 % (0-12); NEUTROPHILS # (AUTO) 10.9 X 10^3 (1.8-7.8); NEUTROPHILS % (AUTO) 69 % (42-75); PLATELET COUNT 360 10^3/uL (130-400); RED CELL DISTRIBUTION WIDTH 14.1 % (10.0-14.5); WHITE BLOOD COUNT 15.8 10^3/uL (4.3-11.0)
[2018-12-17 07:03] LABS: ALANINE AMINOTRANSFERASE 28 U/L (0-55); ALBUMIN 3.5 GM/DL (3.2-4.5); ALKALINE PHOSPHATASE 79 U/L (40-136); BILIRUBIN,TOTAL 0.5 MG/DL (0.1-1.0); BUN/CREATININE RATIO 15; CALCIUM 8.5 MG/DL (8.5-10.1); CARBON DIOXIDE 23 MMOL/L (21-32); CHLORIDE 105 MMOL/L (98-107); CREATININE SERUM 0.62 MG/DL (0.60-1.30); GFR ESTIMATED > 60; GLUCOSE 189 MG/DL (70-105); POTASSIUM 3.6 MMOL/L (3.6-5.0); SODIUM 136 MMOL/L (135-145); TOTAL PROTEIN 5.9 GM/DL (6.4-8.2)
[2018-12-17 08:00] VITALS: BP 133/82
--- NOTE | 2018-12-17 09:10 | Short Stay Summary ---
History of Present Illness History of Present Illness Date of Admission Dec 16, 2018 at 21:30 Date of Discharge Attending Physician Bibiana Hess MD Admitting Physician Bibiana Hess MD Consult Allergies and Home Medications Allergies Coded Allergies: fentanyl (Verified Allergy, Intermediate, HIVES, 07/11/18) ondansetron (Verified Allergy, Intermediate, HEADACHES, 07/11/18) Sulfa (Sulfonamide Antibiotics) (Unverified Allergy, Mild, rash, 07/11/18) doxycycline (Unverified Allergy, Mild, rash, 07/11/18) morphine (Verified Allergy, Unknown, HIVES, Pt has received Hydrocodone & Hydromorphone, 07/11/18) Penicillins (Unverified Adverse Reaction, Intermediate, hives, 07/11/18) Home Medications Metoprolol Succinate 100 Mg Tab.er.24h, 100 MG PO DAILY, (Reported) Pantoprazole Sodium 40 Mg Tablet.dr, 40 MG PO DAILY, (Reported) Promethazine HCl 25 Mg Tablet, 25 MG PO Q6H PRN for NAUSEA/VOMITING, (Reported) Past Qogytyt-Mlewta-Ngfvdz Hx Patient Social History Alcohol Use: Denies Use Recreational Drug Use: No Smoking Status: Former Smoker Former Smoker, Quit: Jun 30, 2014 Type Used: Cigarettes Recent Foreign Travel: No Contact w/other who traveled: No Recent Hopitalizations: No Recent Infectious Disease Expo: No Immunizations Up To Date Tetanus Booster (TDap): Unknown Date of Pneumonia Vaccine: Apr 17, 2016 Date of Influenza Vaccine: Mar 25, 2018 Seasonal Allergies Seasonal Allergies: Yes Surgeries Yes (LIPOMA FROM NECK, MENISCUS REPAIR, ACHILES TENDON) Section, Gallbladder, Tonsillectomy Respiratory Yes (USES XOPENEX IF NEEDED-USED ONCE IN LAST YEAR) Currently Using CPAP: No Currently Using BIPAP: No Cardiovascular Yes (HX TACHYCARDIA) Hypertension Neurological No Neuropathy Reproductive System Hx Reproductive Disorders: No Sexually Transmitted Disease: No HIV/AIDS: No Female Reproductive Disorders: Polycystic Ovarian Dis Genitourinary No Neurogenic Bladder Gastrointestinal Yes Gastroesophageal Reflux, Chronic Diarrhea, Ulcer Musculoskeletal Yes Arthritis Endocrine History of Endocrine Disorders: Yes (DIET CONTOLLED) Endocrine Disorders: Diabetes, Insulin dep HEENT History of HEENT Disorders: Yes (GLASSES) Loss of Vision: Bilateral Hearing Impairment: Denies Cancer No Psychosocial History of Psychiatric Problem: No Integumentary History of Skin or Integumenta: No Blood Transfusions History of Blood Disorders: No Adverse Reaction to a Blood Tr: No (N/A) Family Medical History Significant Family History: No Pertinent Family Hx Family Hx: Arthritis 19 FATHER 19 MOTHER Esophageal reflux 19 MOTHER Prostate problems 19 FATHER Urinary tract infection 19 MOTHER Physical Exam Vital Signs Vital Signs - First Documented 12/16/18 20:19 Temp 97.7 Pulse 90 Resp 18 B/P (MAP) 157/108 (124) Capillary Refill : Less Than 3 SecondsLess Than 3 Seconds Height, Weight, BMI Height: 4'11.00" Weight: 208lbs. 8.0oz. 94.292734fg; 42.1 BMI Method:Stated Clinical Quality Measures DVT/VTE Risk/Contraindication: Risk Factor Score Per Nursin RFS Level Per Nursing on Admit: 3=High Short Stay Diagnosis Conclusion Labs Laboratory Tests 12/16/18 20:12: Urine Color DARK YELLOW, Urine Clarity SL CLOUDY, Urine pH 6.5, Urine Specific [place] 1.015L, Urine Protein 4+, Urine Glucose (UA) NEGATIVE, Urine Ketones 1+H , Urine Nitrite POSITIVEH, Urine Bilirubin 3+H, Urine Urobilinogen 8H, Urine Leukocyte Esterase 3+H, Urine RBC (Auto) 5+H, Urine RBC >100H, Urine WBC 5-10H, Urine Squamous Epithelial Cells 5-10, Urine Crystals NONE, Urine Bacteria TRACE, Urine Casts NONE, Urine Mucus NEGATIVE, Urine Culture Indicated YES 12/16/18 20:37: White Blood Count 21.9H, Red Blood Count 5.29, Hemoglobin 15.3, Hematocrit 45, Mean Corpuscular Volume 86, Mean Corpuscular Hemoglobin 29, Mean Corpuscular Hemoglobin Concent 34, Red Cell Distribution Width 14.0, Platelet Count 458H, Mean Platelet Volume 10.3, Neutrophils (%) (Auto) 78H, Lymphocytes (%) (Auto) 18, Monocytes (%) (Auto) 4, Eosinophils (%) (Auto) 1, Basophils (%) (Auto) 0, Neutrophils # (Auto) 16.9H, Lymphocytes # (Auto) 3.8, Monocytes # (Auto) 0.9, Eosinophils # (Auto) 0.1, Basophils # (Auto) 0.1, Neutrophils % (Manual) 82, Lymphocytes % (Manual) 11, Monocytes % (Manual) 1, Eosinophils % (Manual) 0, Basophils % (Manual) 0, Band Neutrophils 1, Reactive Lymphocytes 5, Anisocytosis SLIGHT, Sodium Level 138, Potassium Level 3.9, Chloride Level 101, Carbon Dioxide Level 23, Anion Gap 14, Blood Urea Nitrogen 7, Creatinine 0.69, Estimat Glomerular Filtration Rate > 60, BUN/Creatinine Ratio 10, Glucose Level 194H, Calcium Level 9.9, Corrected Calcium 9.7, Total Bilirubin 0.7, Aspartate Amino Transf (AST/SGOT) 24, Alanine Aminotransferase (ALT/SGPT) 39, Alkaline Phosphatase 99, Total Protein 7.3, Albumin 4.2 12/16/18 21:22: Lactic Acid Level 1.53 12/17/18 06:20: White Blood Count 15.8H, Red Blood Count 4.55, Hemoglobin 13.0, Hematocrit 40, Mean Corpuscular Volume 87, Mean Corpuscular Hemoglobin 29, Mean Corpuscular Hemoglobin Concent 33, Red Cell Distribution Width 14.1, Platelet Count 360, Mean Platelet Volume 10.3, Neutrophils (%) (Auto) 69, Lymphocytes (%) (Auto) 25, Monocytes (%) (Auto) 5, Eosinophils (%) (Auto) 1, Basophils (%) (Auto) 0, Neutrophils # (Auto) 10.9H, Lymphocytes # (Auto) 3.9, Monocytes # (Auto) 0.8, Eosinophils # (Auto) 0.1, Basophils # (Auto) 0.0, Sodium Level 136, Potassium Level 3.6, Chloride Level 105, Carbon Dioxide Level 23, Anion Gap 8, Blood Urea Nitrogen 9, Creatinine 0.62, Estimat Glomerular Filtration Rate > 60, BUN/Cre atinine Ratio 15, Glucose Level 189H, Calcium Level 8.5, Corrected Calcium 8.9, Total Bilirubin 0.5, Aspartate Amino Transf (AST/SGOT) 16, Alanine Aminotransferase (ALT/SGPT) 28, Alkaline Phosphatase 79, Total Protein 5.9L, Albumin 3.5 BIBIANA HESS MD Dec 17, 2018 09:10
[2018-12-17] MEDS ORDERED: LEVO500T2 PO (09:12)
--- NOTE | 2018-12-17 09:13 | Discharge Inst-Complex ---
PDI Med Rec & Follow Up Appt. New Medications: Levofloxacin (Levaquin) 500 Mg Tablet 500 MG PO DAILY, #7 TAB Continued Medications: Metoprolol Succinate (Metoprolol Succinate) 100 Mg Tab.er.24h 100 MG PO DAILY, TAB Pantoprazole Sodium (Protonix) 40 Mg Tablet.dr 40 MG PO DAILY, TAB Promethazine HCl (Promethazine Tablet) 25 Mg Tablet 25 MG PO Q6H PRN for NAUSEA/VOMITING, TAB Prescription: Transmitted to Pharmacy Patient Instructions: one week follow up in the office at [facility] Activity, Diet and PDI Resume Normal Activity: Yes Discharge Diet: Regular Diet Diet for 24 Hours: No Alcohol, No [employer] Diet After 24 Hours: Resume Home Diet Drink 6-8 Glasses of Fluid/Day: Yes Driving Instructions: You May Drive Return to The Hospital For: any concern for lifethreatening illness or injury Symptoms to Reoprt to : Appetite Changes, Fever Over 101 Degrees F, Pain/Pressure in Chest, Urination Difficulty, Cough Up/Vomit Blood, Diarrhea(Persistant), Shortness of Breath For Problems or Questions: Contact Your Physician, Go to Emergency Room Infection Signs and Symptoms: Temperature Above 101 F BIBIANA HINDS MD Dec 17, 2018 09:13
[2018-12-17] MEDS ORDERED: LEVOFLOXACIN 500 MG/100 ML IV 100 ML IV ONE (09:15)
== END 2018-12-17 09:11 | disposition home or self-care (01) ==
LOC: EDUNIT# 19:58 → ER 19:59 → UNDOADMOB 21:30 → 4TH 21:30 → UNDODISOB 12-17 10:55
PROVIDERS: ADMIT Family Medicine; ATTEND Family Medicine
DX: N30.01 Acute cystitis with hematuria (principal); N12 Tubulo-interstitial nephritis, not specified as acute or chronic; I10 Essential (primary) hypertension; E11.40 Type 2 diabetes mellitus with diabetic neuropathy, unspecified; N31.9 Neuromuscular dysfunction of bladder, unspecified; K21.9 Gastro-esophageal reflux disease without esophagitis; K52.9 Noninfective gastroenteritis and colitis, unspecified; E28.2 Polycystic ovarian syndrome; M19.91 Primary osteoarthritis, unspecified site; Z87.891 Personal history of nicotine dependence; Z79.899 Other long term (current) drug therapy
CPT/HCPCS: 36415; 74176; 80053; 81000; 83605; 85007; 85025; 85027; 87040; 87088; 96361; 96374; G0378

== ENCOUNTER 2019-02-10 15:22 | Outpatient (CLI) | payer OTHER ==
[~2019-02-10] VITALS: Ht 149.9 cm; Wt 92.5 kg
[~2019-02-10 15:22] MED LIST changes: -BUME1TAB4 PO; +BUME1TAB8 PO; +LEVO500T2 PO
[2019-02-10 15:31] VITALS: BP 138/85
[2019-02-10] MEDS ORDERED: MONT5TAB16 PO (15:33)
[2019-02-10 16:01] LABS: BASOPHILS # (AUTO) 0.1 10^3/uL (0.0-0.1); BASOPHILS % (AUTO) 0 % (0-10); EOSINOPHILS # (AUTO) 0.2 10^3/uL (0.0-0.3); EOSINOPHILS % (AUTO) 1 % (0-10); HEMATOCRIT 42 % (35-52); HEMOGLOBIN 13.8 G/DL (11.5-16.0); LYMPHOCYTES # (AUTO) 4.2 X 10^3 (1.0-4.0); LYMPHOCYTES % (AUTO) 24 % (12-44); MEAN CORPUSCULAR HEMOGLOBIN 28 PG (25-34); MEAN CORPUSCULAR HGB CONC 33 G/DL (32-36); MEAN CORPUSCULAR VOLUME 85 FL (80-99); MEAN PLATELET VOLUME 10.8 FL (7.4-10.4); MONOCYTES # (AUTO) 0.8 X 10^3 (0.0-1.0); MONOCYTES % (AUTO) 5 % (0-12); NEUTROPHILS # (AUTO) 12.5 X 10^3 (1.8-7.8); NEUTROPHILS % (AUTO) 70 % (42-75); RED CELL DISTRIBUTION WIDTH 13.6 % (10.0-14.5); WHITE BLOOD COUNT 17.7 10^3/uL (4.3-11.0)
[2019-02-10 16:28] LABS: EOSINOPHILS % (MANUAL) 1 %; HYPERSEGMENTED NEUT SLIGHT; LYMPHOCYTES % (MANUAL) 20 %; MONOCYTES % (MANUAL) 11 %; NEUTROPHILS % (MANUAL) 68 %
[2019-02-10 16:29] LABS: RBC MORPH NORMAL
[2019-02-10 16:30] LABS: PLATELET COUNT 466 10^3/uL (130-400)
== END 2019-02-10 15:50 | disposition home or self-care (01) ==
LOC: PREOP 15:22
PROVIDERS: ATTEND Obstetrics & Gynecology
DX: Z01.818 Encounter for other preprocedural examination (principal); N93.8 Other specified abnormal uterine and vaginal bleeding
CPT/HCPCS: 36415; 85007; 85027; 86850; 86900; 86901; 87081

== ENCOUNTER → 2019-05-19 | Outpatient (CLI) | payer OTHER ==
[~2019-05-19] MED LIST changes: +DOCU100C37 PO; +ESTR1PAT4 TD; +IBUP-1780 PO; +MONT5TAB16 PO; +NF-XOP-HFA INH; +OXYC1TAB87 PO
--- NOTE | 2019-05-19 18:58 | Diagnostic Imaging Report ---
Clinical indication: Patient with cough times approximately 3 weeks. Exam: Chest x-ray PA and lateral views. Comparisons: Chest x-ray dated 03/25/2018. Findings: Lungs/pleura: Lungs are clear. There is no pneumothorax. There is no pleural effusion. Mediastinum: Unremarkable. Pulmonary vasculature: Unremarkable. Heart: Unremarkable. Bones/extrathoracic soft tissue: There are small spurs involving the thoracic spine. Impression: Stable chest x-ray exam with no interval radiographic evidence of acute cardiopulmonary process. Dictated by: Dictated on workstation # [id number]
== END ==
LOC: RAD 18:16
PROVIDERS: ATTEND Nurse Practitioner Family
DX: J40 Bronchitis, not specified as acute or chronic (principal)
CPT/HCPCS: 71046

== ENCOUNTER 2019-07-11 09:01 | Outpatient (CLI) | payer BC, OTHER ==
[~2019-07-11] VITALS: Ht 149.8 cm; Wt 118.0 kg
[~2019-07-11 09:01] MED LIST changes: -METO-395 PO; +MTP100TCR PO; -TRAM50TA2 PO; +TRM50T PO
[2019-07-11 09:05] VITALS: BP 130/101
[2019-07-11] MEDS ORDERED: NS IV 1000 ML 1,000 ML ONE (09:08)
[2019-07-11 09:45] LABS: HEMOGLOBIN 16.5 G/DL (11.5-16.0); MEAN PLATELET VOLUME 10.8 FL (7.4-10.4); RED CELL DISTRIBUTION WIDTH 15.1 % (10.0-14.5); WHITE BLOOD COUNT 22.2 10^3/uL (4.3-11.0)
[2019-07-11] MEDS ORDERED: NS IV 1000 ML 1,000 ML IV ONE (09:45)
[2019-07-11 10:03] LABS: ALANINE AMINOTRANSFERASE 43 U/L (0-55); ALBUMIN 4.3 GM/DL (3.2-4.5); ALKALINE PHOSPHATASE 114 U/L (40-136); BILIRUBIN,TOTAL 0.8 MG/DL (0.1-1.0); BUN/CREATININE RATIO 13; CARBON DIOXIDE 20 MMOL/L (21-32); CHLORIDE 100 MMOL/L (98-107); CREATININE SERUM 0.75 MG/DL (0.60-1.30); GFR ESTIMATED > 60; GLUCOSE 226 MG/DL (70-105); POTASSIUM 3.9 MMOL/L (3.6-5.0); SODIUM 135 MMOL/L (135-145); TOTAL PROTEIN 7.8 GM/DL (6.4-8.2)
== END 2019-07-11 10:25 | disposition home or self-care (01) ==
LOC: SDC 09:01
PROVIDERS: ATTEND Nurse Practitioner Family
DX: E86.0 Dehydration (principal)
CPT/HCPCS: 36415; 80053; 85027; 96360

== ENCOUNTER 2021-08-13 15:23 | Emergency (ER) | payer BC ==
[~2021-08-13] VITALS: Ht 149 cm; Wt 91.0 kg
[~2021-08-13 15:23] MED LIST changes: -MONT5TAB16 PO; +MONT5TAB24 PO; -OXYC-471 PO; +OXYC1TAB11 PO
[2021-08-13 15:27] VITALS: BP 155/105
[2021-08-13] MEDS ORDERED: PROMETHAZINE INJ 25 MG/ML (PHENERGAN) AMP IVP ONE ×2 (15:45→18:15)
[2021-08-13] MEDS ORDERED: LACTATED RINGERS 1,000 ML IV SCH ×2 (15:45→17:15)
[2021-08-13] MEDS ORDERED: KETOROLAC 30 MG/ML VIAL IVP ONE (15:45)
--- NOTE | 2021-08-13 15:46 | ED General ---
General Stated Complaint: N/V/D BACK PAIN ALLERGIES Source of Information: Patient Exam Limitations: No Limitations (ELVIRA PENA APRN) History of Present Illness Date Seen by Provider: Aug 13, 2021 Time Seen by Provider: 15:46 Initial Comments To ER by private vehicle from home with reports of nausea vomiting diarrhea and mid back pain. This started on Sunday of last week (today is Sunday) with some mid thoracic back pain. As time has progressed she developed about 10 episodes of watery nonbloody nonmucousy stools per day, the pain became more localized to the left flank. She is also had some nonbloody vomiting. She takes metoprolol for tachycardia but has been unable to take it for the past 2 days. Timing/Duration: 1-2 Days Severity: Moderate Associated Systoms: Nausea/Vomiting (ELVIRA PENA APRN) Allergies and Home Medications Allergies Coded Allergies: fentanyl (Verified Allergy, Intermediate, HIVES, 07/11/18) ondansetron (Verified Allergy, Intermediate, HEADACHES, 07/11/18) Sulfa (Sulfonamide Antibiotics) (Unverified Allergy, Mild, rash, 07/11/18) doxycycline (Unverified Allergy, Mild, Anaphylaxis, 02/10/19) Tetracyclines (Verified Allergy, Unknown, Anaphylaxis, 02/10/19) morphine (Verified Allergy, Unknown, HIVES, Pt has received Hydrocodone & Hydromorphone, 07/11/18) Penicillins (Unverified Adverse Reaction, Intermediate, hives, 07/11/18) Patient Home Medication List Home Medication List Reviewed: Yes (ELVIRA PENA APRN) Docusate Sodium (Docusate Sodium) 100 Mg Capsule, 100 MG PO BID Prescribed by: JW HERRING on 02/19/19 1302 Estradiol (Vivelle-Dot Patch Twice Weekly 0.05mg/hr) 1 Each Patch.tdsw, 1 EACH TD Twice Weekly Prescribed by: JW HERRING on 02/19/19 1302 Ibuprofen (Ibuprofen) 800 Mg Tablet, 800 MG PO Q6HR Prescribed by: JW HERRING on 02/19/19 1302 Levalbuterol Tartrate (Xopenex Hfa) 15 Gm Hfa.aer.ad, 15 GM INH PRN, (Reported) Entered as Reported by: ANGEL MUNIZ on 02/19/19 1212 Metoprolol Succinate (Metoprolol Succinate) 100 Mg Tab.er.24h, 100 MG PO DAILY, (Reported) Entered as Reported by: JENY HURLEY on 07/11/18 1006 Montelukast Sodium (Montelukast Sodium) 5 Mg Tab.chew, 5 MG PO DAILY, (Reported) Entered as Reported by: KEMI CRUZ on 02/10/19 1533 Oxycodone HCl/Acetaminophen (Percocet 5-325 mg Tablet) 1 Each Tablet, 1 TAB PO Q4H PRN for PAIN-MODERATE Prescribed by: JW HERRING on 02/19/19 1302 Promethazine HCl (Promethazine Tablet) 25 Mg Tablet, 25 MG PO Q8H PRN for NAUSEA/VOMITING Prescribed by: ELVIRA PENA on 08/13/212028 Review of Systems Review of Systems Constitutional: see HPI EENTM: see HPI Respiratory: no symptoms reported Cardiovascular: no symptoms reported Genitourinary: no symptoms reported Musculoskeletal: see HPI, back pain Skin: no symptoms reported Psychiatric/Neurological: No Symptoms Reported Hematologic/Lymphatic: No Symptoms Reported (ELVIRA EPNA APRN) Past Gmpnecy-Qephrw-Itbgdg Hx Immunizations Up To Date Tetanus Booster (TDap): Unknown (ELVIRA PENA APRN) Seasonal Allergies Seasonal Allergies: Yes (ELVIRA PENA APRN) Past Medical History Surgeries: Yes (LIPOMA FROM NECK, MENISCUS REPAIR, ACHILES TENDON, cyst from armpit removed) Section, Gallbladder, Tonsillectomy Respiratory: Yes (USES XOPENEX IF NEEDED) Asthma Currently Using CPAP: No Currently Using BIPAP: No Cardiac: Yes (HX TACHYCARDIA) Hypertension Neurological: No Neuropathy Reproductive Disorders: No Female Reproductive Disorders: Polycystic Ovarian Dis Sexually Transmitted Disease: No HIV/AIDS: No Genitourinary: No Neurogenic Bladder Gastrointestinal: Yes Gastroesophageal Reflux, Chronic Diarrhea, Ulcer Musculoskeletal: Yes Arthritis Endocrine: Yes (DIET CONTOLLED) Diabetes, Insulin dep HEENT: Yes (GLASSES) Loss of Vision: Bilateral Hearing Impairment: Denies Cancer: No Psychosocial: No Integumentary: No Blood Disorders: No Adverse Reaction/Blood Tranf: No (N/A) (ELVIRA PENA APRN) Family Medical History Arthritis 19 FATHER 19 MOTHER Esophageal reflux 19 MOTHER Prostate problems 19 FATHER Urinary tract infection 19 MOTHER Heart Disease, Hypertension (ELVIRA PENA APRN) Physical Exam Vital Signs Vital Signs - First Documented 08/13/21 15:27 Temp 36.2 Pulse 120 Resp 18 B/P (MAP) 155/105 (122) Pulse Ox 96 (EDE TORREZ DO) Vital Signs Capillary Refill : (ELVIRA PENA APRN) Height, Weight, BMI Height: 4'11.00" Weight: 204lbs. 0.0oz. 92.975354gu; 41.2 BMI Method:Stated General Appearance: No Apparent Distress, WD/WN, Other (Alert and oriented very pleasant) Eyes: Bilateral Eye Normal Inspection, Bilateral Eye PERRL, Bilateral Eye EOMI HEENT: Other (Dry mucous membranes) Neck: Full Range of Motion, Normal Inspection Respiratory: Normal Breath Sounds, No Accessory Muscle Use, No Respiratory Distress Cardiovascular: Normal Peripheral Pulses, Other (Tachycardia sinus narrow complex regular at 120s) Gastrointestinal: Normal Bowel Sounds, Non Tender, Soft Back: CVA Tenderness (L); No CVA Tenderness (R) Extremity: Normal Capillary Refill, Normal Inspection Neurologic/Psychiatric: Alert, Oriented x3 (ELVIRA PENA APRN) Focused Exam Lactate Level 08/13/21 16:30: Lactic Acid Level 1.70 (EDE TORREZ DO) Lactic Acid Level Laboratory Tests Test 08/13/21 16:30 Lactic Acid Level 1.70 MMOL/L (0.50-2.00) (EDE TORREZ DO) Progress/Results/Core Measures Suspected Sepsis SIRS Temperature: Pulse: Respiratory Rate: Laboratory Tests 08/13/21 15:35: White Blood Count 21.5H Blood Pressure / Mean: 08/13/21 16:30: Lactic Acid Level 1.70 Laboratory Tests 08/13/21 15:35: Creatinine 0.62, Platelet Count 501H, Total Bilirubin 1.0 (ELVIRA PENA APRN) Results/Orders Lab Results Laboratory Tests Test 08/13/21 15:35 08/13/21 16:30 08/13/21 16:49 08/13/21 19:26 Range/Units White Blood Count 21.5 H 4.3-11.0 10^3/uL Red Blood Count 6.07 H 3.80-5.11 10^6/uL Hemoglobin 18.4 H 11.5-16.0 g/dL Hematocrit 54 H 35-52 % Mean Corpuscular Volume 88 80-99 fL Mean Corpuscular Hemoglobin 30 25-34 pg Mean Corpuscular Hemoglobin Concent 34 32-36 g/dL Red Cell Distribution Width 12.9 10.0-14.5 % Platelet Count 501 H 130-400 10^3/uL Mean Platelet Volume 10.5 9.0-12.2 fL Immature Granulocyte % (Auto) 0 % Neutrophils (%) (Auto) 70 42-75 % Lymphocytes (%) (Auto) 23 12-44 % Monocytes (%) (Auto) 6 0-12 % Eosinophils (%) (Auto) 0 0-10 % Basophils (%) (Auto) 0 0-10 % Neutrophils # (Auto) 15.1 H 1.8-7.8 10^3/uL Lymphocytes # (Auto) 4.9 H 1.0-4.0 10^3/uL Monocytes # (Auto) 1.2 H 0.0-1.0 10^3/uL Eosinophils # (Auto) 0.1 0.0-0.3 10^3/uL Basophils # (Auto) 0.1 0.0-0.1 10^3/uL Immature Granulocyte # (Auto) 0.1 0.0-0.1 10^3/uL Neutrophils % (Manual) 75 % Lymphocytes % (Manual) 23 % Monocytes % (Manual) 2 % Eosinophils % (Manual) 0 % Basophils % (Manual) 0 % Band Neutrophils 0 % Blood Morphology Comment NORMAL Sodium Level 133 L 135-145 MMOL/L Potassium Level 3.8 3.6-5.0 MMOL/L Chloride Level 99 98-107 MMOL/L Carbon Dioxide Level 21 21-32 MMOL/L Anion Gap 13 5-14 MMOL/L Blood Urea Nitrogen 9 7-18 MG/DL Creatinine 0.62 0.60-1.30 MG/DL Estimat Glomerular Filtration Rate 110 BUN/Creatinine Ratio 15 Glucose Level 195 H 70-105 MG/DL Calcium Level 9.8 8.5-10.1 MG/DL Corrected Calcium 9.5 8.5-10.1 MG/DL Total Bilirubin 1.0 0.1-1.0 MG/DL Aspartate Amino Transf (AST/SGOT) 40 H 5-34 U/L Alanine Aminotransferase (ALT/SGPT) 60 H 0-55 U/L Alkaline Phosphatase 86 40-136 U/L Total Protein 7.8 6.4-8.2 GM/DL Albumin 4.4 3.2-4.5 GM/DL Procalcitonin 0.06 <0.10 NG/ML Serum Test, Qualitative NEGATIVE NEGATIVE Lactic Acid Level 1.70 0.50-2.00 MMOL/L Urine Color ORANGE Urine Clarity CLEAR Urine pH 6.5 5-9 Urine Specific Duncan 1.010 L 1.016-1.022 Urine Protein 2+ H NEGATIVE Urine Glucose (UA) NEGATIVE NEGATIVE Urine Ketones 1+ H NEGATIVE Urine Nitrite NEGATIVE NEGATIVE Urine Bilirubin 1+ H NEGATIVE Urine Urobilinogen 0.2 < = 1.0 MG/DL Urine Leukocyte Esterase NEGATIVE NEGATIVE Urine RBC (Auto) TRACE-I H NEGATIVE Urine RBC NONE /HPF Urine WBC NONE /HPF Urine Squamous Epithelial Cells 5-10 /HPF Urine Crystals NONE /LPF Urine Bacteria TRACE /HPF Urine Casts NONE /LPF Urine Mucus NEGATIVE /LPF Urine Culture Indicated NO Urine Opiates Screen NEGATIVE NEGATIVE Urine Oxycodone Screen NEGATIVE NEGATIVE Urine Methadone Screen NEGATIVE NEGATIVE Urine Propoxyphene Screen NEGATIVE NEGATIVE Urine Barbiturates Screen NEGATIVE NEGATIVE Ur Tricyclic Antidepressants Screen NEGATIVE NEGATIVE Urine Phencyclidine Screen NEGATIVE NEGATIVE Urine Amphetamines Screen NEGATIVE NEGATIVE Urine Methamphetamines Screen NEGATIVE NEGATIVE Urine Benzodiazepines Screen NEGATIVE NEGATIVE Urine Cocaine Screen NEGATIVE NEGATIVE Urine Cannabinoids Screen POSITIVE H NEGATIVE (EDE TORREZ DO) Medications Given in ED Current Medications Medications Dose Ordered Sig/Brea Route Start Time Stop Time Status Last Admin Dose Admin Droperidol 1.5 mg ONCE ONCE IV 08/13/21 19:15 08/13/21 19:16 DC 08/13/21 19:37 1.5 MG Ketorolac Tromethamine 15 mg ONCE ONCE IVP 08/13/21 15:45 08/13/21 15:46 DC 08/13/21 16:05 15 MG Metoprolol Tartrate 5 mg ONCE ONCE IV 08/13/21 16:00 08/13/21 16:01 DC 08/13/21 16:20 5 MG Orphenadrine Citrate 30 mg ONCE ONCE IV 08/13/21 18:15 08/13/21 18:16 DC 08/13/21 18:25 30 MG Promethazine HCl 12.5 mg ONCE ONCE IVP 08/13/21 15:45 08/13/21 15:46 DC 08/13/21 16:05 12.5 MG Promethazine HCl 12.5 mg ONCE ONCE IVP 08/13/21 18:15 08/13/21 18:16 DC 08/13/21 18:25 12.5 MG Scopolamine 1.5 mg ONCE ONCE TD 08/13/21 20:30 08/13/21 20:31 DC 08/13/21 20:35 1.5 MG (SHANEDE Tova DO) Vital Signs/I&O 08/13/21 15:27 Temp 36.2 Pulse 120 Resp 18 B/P (MAP) 155/105 (122) Pulse Ox 96 (SHAN,EDE K DO) Vital Signs/I&O Capillary Refill : (ELVIRA PENA APRN) Departure Communication (Admissions) 2027-I had to spoke with Dr. Ortiz about admitting the patient given ongoing nausea and vomiting. However after the droperidol she states she feels quite a bit better and is ready to go home. I did offer admission but she feels good enough to go so we will arrange that. NAME: TERESA GUAN [facility] REC#: [id number] PT STATUS: REG ER : 1970 PHYSICIAN: ELVIRA PENA APRN ADMIT DATE: 08/13/21/ER Draft Date of Exam:08/13/21 CT ABDOMEN/PELVIS W PROCEDURE: CT abdomen and pelvis with contrast. TECHNIQUE: Multiple contiguous axial images were obtained through the abdomen and pelvis after administration of intravenous contrast. Auto Exposure Controls were utilized during the CT exam to meet ALARA standards for radiation dose reduction. All CT scans use one or more of the following dose optimizing techniques: automated exposure control, MA and/or KvP adjustment based on patient size and exam type or iterative reconstruction. INDICATION: Left flank pain. Nausea, vomiting, diarrhea. COMPARISON: 12/16/2018. FINDINGS: The lung bases are clear. The heart is normal in size. There is no pericardial effusion. The liver demonstrates fatty infiltration. No focal lesion is seen. The liver is mildly large measuring 18.9 cm. There are calcified granulomas in the spleen. The pancreas appears normal. The adrenal glands are normal. The kidneys demonstrate no focal masses and no hydronephrosis. The bowel loops are nondistended. There are multiple fluid-filled loops of small bowel with somewhat greater than expected enhancement of the wall and there may be mild wall thickening. The appendix is normal. There is no free fluid or free air. No acute osseous abnormality is seen. IMPRESSION: 1. Mild wall thickening and enhancement of multiple fluid-filled loops of small bowel, may represent an enteritis. 2. Hepatic steatosis. Dictated on workstation # [id number] Dict: 08/13/211651 Trans: 08/13/211658 [facility] [id number] Interpreted by: BEVERLEY MOORE MD Electronically signed by: (ELVIRA PENA APRN) Impression Primary Impression: Gastroenteritis Disposition: 01 HOME, SELF-CARE Condition: Stable Departure-Patient Inst. Decision time for Depature: 20:28 (ELVIRA PENA APRN) Referrals: BIBIANA HINDS MD (PCP/Family) Primary Care Physician Patient Instructions: Viral Gastroenteritis Scripts Promethazine HCl (Promethazine Tablet) 25 Mg Tablet 25 MG PO Q8H PRN for NAUSEA/VOMITING, #10 TAB Prov: ELVIRA PENA APRN 08/13/21 ATTENDING PHYSICIAN NOTE: I WAS PHYSICALLY PRESENT ER PHYSICIAN WHEN THIS PATIENT WAS IN ER, BUT I WAS NOT INVOLVED IN ANY DECISION MAKING OR ANY CARE OF THIS PATIENT. (EDE TORREZ DO) ELVIRA PENA APRN Aug 13, 2021 15:46 EDE TORREZ DO Aug 13, 2021 22:35
[2021-08-13 15:53] LABS: BASOPHILS # (AUTO) 0.1 10^3/uL (0.0-0.1); BASOPHILS % (AUTO) 0 % (0-10); EOSINOPHILS # (AUTO) 0.1 10^3/uL (0.0-0.3); EOSINOPHILS % (AUTO) 0 % (0-10); HEMATOCRIT 54 % (35-52); HEMOGLOBIN 18.4 g/dL (11.5-16.0); LYMPHOCYTES # (AUTO) 4.9 10^3/uL (1.0-4.0); LYMPHOCYTES % (AUTO) 23 % (12-44); MEAN CORPUSCULAR HEMOGLOBIN 30 pg (25-34); MEAN CORPUSCULAR HGB CONC 34 g/dL (32-36); MEAN CORPUSCULAR VOLUME 88 fL (80-99); MEAN PLATELET VOLUME 10.5 fL (9.0-12.2); MONOCYTES # (AUTO) 1.2 10^3/uL (0.0-1.0); MONOCYTES % (AUTO) 6 % (0-12); NEUTROPHILS # (AUTO) 15.1 10^3/uL (1.8-7.8); NEUTROPHILS % (AUTO) 70 % (42-75); PLATELET COUNT 501 10^3/uL (130-400); WHITE BLOOD COUNT 21.5 10^3/uL (4.3-11.0)
[2021-08-13] MEDS ORDERED: meTOprolol 5 MG/5 ML (LOPRESSOR) VIAL IV ONE (16:00)
[2021-08-13 16:09] LABS: ALBUMIN 4.4 GM/DL (3.2-4.5); POTASSIUM 3.8 MMOL/L (3.6-5.0)
[2021-08-13 16:10] LABS: CALCIUM 9.8 MG/DL (8.5-10.1)
[2021-08-13 16:11] LABS: BAND NEUTROPHILS 0 %; BASOPHILS % (MANUAL) 0 %; EOSINOPHILS % (MANUAL) 0 %; LYMPHOCYTES % (MANUAL) 23 %; MONOCYTES % (MANUAL) 2 %; NEUTROPHILS % (MANUAL) 75 %; RBC MORPH NORMAL; TOTAL PROTEIN 7.8 GM/DL (6.4-8.2)
[2021-08-13 16:15] LABS: CREATININE SERUM 0.62 MG/DL (0.60-1.30)
[2021-08-13] MEDS ORDERED: NS 100 ML (IVPB) BAG IV ONE (16:30)
[2021-08-13] MEDS ORDERED: IOHEXOL 350 MG/ML 100 ML (OMNIPAQUE 350) VIAL IV ONE (16:30)
[2021-08-13] MEDS ORDERED: HOLD METFORMIN - RECEIVED CONTRAST 20 ML VIAL IV SCH (16:30)
[2021-08-13 16:55] LABS: CLARITY,URINE CLEAR; COLOR,URINE ORANGE; GLUCOSE, URINE (UA) NEGATIVE (NEGATIVE); KETONES,URINE 1+ (NEGATIVE); LEUKOCYTE ESTERASE ,URINE NEGATIVE (NEGATIVE); NITRITE,URINE NEGATIVE (NEGATIVE); PH,URINE 6.5 (5-9); PROTEIN,URINE 2+ (NEGATIVE)
--- NOTE | 2021-08-13 16:59 | Diagnostic Imaging Report ---
PROCEDURE: CT abdomen and pelvis with contrast. TECHNIQUE: Multiple contiguous axial images were obtained through the abdomen and pelvis after administration of intravenous contrast. Auto Exposure Controls were utilized during the CT exam to meet ALARA standards for radiation dose reduction. All CT scans use one or more of the following dose optimizing techniques: automated exposure control, MA and/or KvP adjustment based on patient size and exam type or iterative reconstruction. INDICATION: Left flank pain. Nausea, vomiting, diarrhea. COMPARISON: 12/16/2018. FINDINGS: The lung bases are clear. The heart is normal in size. There is no pericardial effusion. The liver demonstrates fatty infiltration. No focal lesion is seen. The liver is mildly large measuring 18.9 cm. There are calcified granulomas in the spleen. The pancreas appears normal. The adrenal glands are normal. The kidneys demonstrate no focal masses and no hydronephrosis. The bowel loops are nondistended. There are multiple fluid-filled loops of small bowel with somewhat greater than expected enhancement of the wall and there may be mild wall thickening. The appendix is normal. There is no free fluid or free air. No acute osseous abnormality is seen. IMPRESSION: 1. Mild wall thickening and enhancement of multiple fluid-filled loops of small bowel, may represent an enteritis. 2. Hepatic steatosis. Dictated by: Dictated on workstation # [id number]
[2021-08-13 17:03] LABS: BACTERIA,URINE TRACE /HPF
[2021-08-13 17:04] LABS: BILIRUBIN,URINE 1+ (NEGATIVE)
[2021-08-13] MEDS ORDERED: ORPHENADRINE 60 MG/2 ML (NORFLEX) AMP (ED ONLY) IV ONE (18:15)
[2021-08-13] MEDS ORDERED: DROPERIDOL 5 MG/2 ML (INAPSINE) ED ONLY! IV ONE (19:15)
[2021-08-13 19:57] LABS: AMPHETAMINE SCREEN, URINE NEGATIVE (NEGATIVE); BARBITURATE SCREEN URINE NEGATIVE (NEGATIVE); BENZODIAZEPINES SCREEN URINE NEGATIVE (NEGATIVE); CANNABINOID SCREEN, URINE POSITIVE (NEGATIVE); COCAINE SCREEN URINE NEGATIVE (NEGATIVE); METHADONE STAT NEGATIVE (NEGATIVE); METHAMPHETAMINE SCREEN URINE S NEGATIVE (NEGATIVE); OPIATE SCREEN URINE NEGATIVE (NEGATIVE); OXYCODONE STAT NEGATIVE (NEGATIVE); PROPOXYPHENE STAT NEGATIVE (NEGATIVE); TRICYCLIC ANTIDEPRESSANTS SCRE NEGATIVE (NEGATIVE)
[2021-08-13] MEDS ORDERED: PROM25TA14 PO (20:29)
[2021-08-13] MEDS ORDERED: SCOPOLAMINE 1.5 MG (TRANSDERM-SCOP) PATCH TD ONE (20:30)
== END 2021-08-13 20:56 | disposition home or self-care (01) ==
LOC: EDUNIT# 15:23 → ER 15:25
DX: K52.9 Noninfective gastroenteritis and colitis, unspecified (principal); R00.0 Tachycardia, unspecified; T44.7X6A Underdosing of beta-adrenoreceptor antagonists, initial encounter; Z79.899 Other long term (current) drug therapy; Z91.14 Patient's other noncompliance with medication regimen; Z32.02 Encounter for pregnancy test, result negative
CPT/HCPCS: 36415; 74177; 80053; 80306; 81000; 83605; 84145; 84703; 85007; 85027; 87040; 93005

== ENCOUNTER → 2021-10-24 | Outpatient (CLI) | payer BC ==
--- NOTE | 2021-10-24 16:45 | Diagnostic Imaging Report ---
INDICATION: Abdominal and left flank pain. Supine images of the abdomen are obtained with comparison made to study of 11/29/2012. FINDINGS: Overall bowel gas pattern is unremarkable. There is no evidence of free intraperitoneal gas or pneumatosis. No definite pathologic abdominal calcification is seen. IMPRESSION: No acute abnormality. Dictated by: Dictated on workstation # [id number]
== END ==
LOC: RAD 16:19
PROVIDERS: ATTEND Nurse Practitioner Family
DX: R10.9 Unspecified abdominal pain (principal)
CPT/HCPCS: 74018

== ENCOUNTER → 2021-11-11 | Outpatient (CLI) | payer BC ==
--- NOTE | 2021-11-11 16:55 | Diagnostic Imaging Report ---
PROCEDURE: CT abdomen and pelvis without contrast. TECHNIQUE: Multiple contiguous axial images were obtained through the abdomen and pelvis without the use of intravenous contrast. Auto Exposure Controls were utilized during the CT exam to meet ALARA standards for radiation dose reduction. INDICATION: Left lower quadrant abdominal pain. COMPARISON: 08/13/2021 FINDINGS: A 1.2 cm lingular pulmonary nodule is present and not significantly changed from the prior examination. This is only partially visualized on this examination. The visualized lung bases are otherwise clear. Diffusely decreased density throughout the liver, consistent with fatty infiltration of the liver. This is associated with borderline enlargement of the liver. Calcified splenic granuloma. Otherwise, the unenhanced spleen is unremarkable. The adrenal glands are unremarkable. The unenhanced pancreas is unremarkable. The bilateral kidneys and ureters are unremarkable. Mild vascular calcifications without aneurysmal dilatation of the abdominal aorta. The urinary bladder is decompressed, therefore not well evaluated. The uterus is not visualized, likely surgically absent. No abnormal adnexal mass lesion. The appendix is unremarkable. Fecalization of small bowel contents is identified. However, no abnormally dilated loops of large or small bowel are identified. Mild mural thickening is noted within scattered loops of small bowel. No pneumatosis. No significant adenopathy, free air, or free fluid within the abdomen or pelvis. Mild diffuse anasarca. Scattered osseous degenerative changes without acute osseous abnormality. IMPRESSION: Fecalization of small bowel contents with associated scattered small bowel mural thickening. This may relate to underlying enteritis or hypoperistalsis. No definite underlying bowel obstruction. A 1.2 cm lingular pulmonary nodule, not significantly changed from the prior examination. Recommend a follow-up CT of the chest in 6 months to ensure stability. Fatty infiltration of the liver with associated mild hepatomegaly. Evidence of chronic granulomatous disease. Additional findings, as above. Dictated by: Dictated on workstation # [id number]
== END ==
LOC: RAD 16:15
PROVIDERS: ATTEND Nurse Practitioner Family
DX: K76.0 Fatty (change of) liver, not elsewhere classified (principal); I70.0 Atherosclerosis of aorta; R91.1 Solitary pulmonary nodule
CPT/HCPCS: 74176

== ENCOUNTER → 2022-01-06 | Outpatient (CLI) | payer BC ==
--- NOTE | 2022-01-06 17:36 | Diagnostic Imaging Report ---
EXAM: T-spine 3V-AP, lat, swimmers INDICATION: Back pain. COMPARISON: Chest radiograph 05/19/2019. FINDINGS: Moderate right apex thoracolumbar curvature. Vertebral body heights preserved. No fracture. Mild scattered degenerative endplate changes. IMPRESSION: Moderate scoliosis and mild scattered spondylotic changes. No acute radiographic finding. Dictated by: Dictated on workstation # [id number]
--- NOTE | 2022-01-06 17:45 | Diagnostic Imaging Report ---
INDICATION: Shoulder pain. EXAMINATION: Left shoulder from 01/06/2022. FINDINGS: Three views of the shoulder. There is narrowing and spurring at the acromioclavicular joint. No fractures or dislocations appreciated. Visualized lung is clear. IMPRESSION: 1. Chronic findings with no superimposed acute osseous abnormality. Dictated by: Dictated on workstation # [id number]
--- NOTE | 2022-01-06 17:47 | Diagnostic Imaging Report ---
INDICATION: Neck pain. COMPARISON: None. FINDINGS: Frontal, lateral and odontoid views of the cervical spine were obtained. Cervical spine is seen down to the C7-T1 level on the lateral view. Evaluation of static alignment shows reversal of normal lordotic curvature of the cervical spine. There is however no significant anterolisthesis or retrolisthesis. There is no evidence of jumped facets. Vertebral body heights are maintained. There is no acute fracture. Mild multilevel degenerative changes are noted and consistent with mild intervertebral disc height loss with anterior and posterior endplate osteophyte formations. Surrounding soft tissue structures are unremarkable. Included portions of lung apices are clear. IMPRESSION: 1. Mild multilevel degenerative changes of the cervical spine. 2. No acute fracture or dislocation. Dictated by: Dictated on workstation # [id number]
== END ==
LOC: RAD 16:26
PROVIDERS: ATTEND Nurse Practitioner Family
DX: M47.813 Spondylosis without myelopathy or radiculopathy, cervicothoracic region (principal); M25.512 Pain in left shoulder
CPT/HCPCS: 72040; 72072; 73030

== ENCOUNTER → 2022-01-17 | Outpatient (CLI) | payer BC ==
--- NOTE | 2022-01-17 18:18 | Diagnostic Imaging Report ---
PROCEDURE: MRI left upper extremity without contrast. TECHNIQUE: Multiplanar, multisequence non contrast-enhanced MRI of the left upper extremity was accomplished. INDICATION: Left shoulder pain and chronic neck pain EXAMINATION: Left shoulder MRI without contrast 01/17/2022 FINDINGS: The subscapularis tendon is intact. The long head of the biceps tendon is intact and lies within the bicipital groove. There is a small partial bursal sided tear of the posterior infraspinatus tendon. The supraspinatus tendon appears intact. The biceps tendon anchor is intact. The labrum grossly unremarkable on this noncontrast examination. There is narrowing and spurring at the acromioclavicular joint consistent with osteoarthritic changes. No acute osseous abnormality is appreciated. Muscle volume is preserved. Visualized axilla unremarkable. IMPRESSION: 1. Partial bursal-sided tear of the infraspinatus tendon with remaining rotator cuff intact. 2. Labrum and long head of biceps tendon intact. 3. Acromioclavicular osteoarthritic changes. Dictated by: Dictated on workstation # [id number]
--- NOTE | 2022-01-17 18:39 | Diagnostic Imaging Report ---
PROCEDURE: MR imaging cervical spine without contrast. TECHNIQUE: Multiplanar, multisequence MR imaging of the cervical spine was performed without contrast. INDICATION: Left shoulder pain, chronic neck pain. COMPARISON: Exam correlated with cervical radiographs performed on 01/06/2022. No prior MR. FINDINGS: There is straightening of cervical curvature, unchanged from the correlative radiograph. The cervical spinal cord itself has an unremarkable volume, morphology, and normal signal intensity. Ligamentous structures were intact. There are no endplate Modic changes. No marrow edema or acute/suspicious marrow signal abnormality. The craniocervical relationship is normal. The C1-C2, the C2-C3, and the C3-C4 levels and discs were normal. There was no stenosis. C4-C5: In addition to diffuse disc bulge and disc desiccation, there is a small midline focal disc protrusion indenting the ventral thecal sac. Canal stenosis at this level is mild and the foramen appeared unobstructed. C5-C6: In addition to diffuse disc bulge, there is left paramedian focal posterior disc protrusion and an endplate osteophyte indenting the left ventral thecal sac with moderate canal stenosis. There is mild left greater than right foraminal narrowing. C6-C7: Diffuse disc bulge, endplate osteophytes, and uncovertebral joint spurring flatten and efface the ventral thecal sac. There is an at least moderate severity of central canal stenosis as well as a moderate right and moderate left foraminal narrowing. C7-T1: This level and disc is normal. There is no stenosis. IMPRESSION: 1. Nnr-dd-kcist cervical spondylosis with endplate osteophytes, diffuse disc bulge, as well as focal disc protrusions resulting in multilevel canal and foraminal stenoses detailed above. 2. Normal spinal cord with no acute bony pathology. Dictated by: Dictated on workstation # [id number]
== END ==
LOC: RAD 14:00
PROVIDERS: ATTEND Nurse Practitioner Family
DX: M19.012 Primary osteoarthritis, left shoulder (principal); S46.912A Strain of unspecified muscle, fascia and tendon at shoulder and upper arm level, left arm, initial encounter; M47.812 Spondylosis without myelopathy or radiculopathy, cervical region; M50.221 Other cervical disc displacement at C4-C5 level; M48.02 Spinal stenosis, cervical region
CPT/HCPCS: 72141; 73221

== ENCOUNTER 2022-02-01 05:28 | Outpatient (CLI) | payer BC ==
[2022-02-03] MEDS ORDERED: PANT40TA2 PO (12:28)
[2022-02-03] MEDS ORDERED: INSU100I34 SQ (12:32)
[2022-02-03] MEDS ORDERED: CYCL10TA25 PO (12:32)
== END 2022-02-03 15:05 | disposition home or self-care (01) ==
LOC: PREOP 05:28
PROVIDERS: ATTEND Orthopaedic Surgery
DX: Z01.818 Encounter for other preprocedural examination (principal)

== ENCOUNTER 2022-02-08 06:46 | Day surgery (SDC) | payer BC ==
--- NOTE | 2022-02-01 09:21 | HISTORY AND PHYSICAL ---
DATE OF SERVICE: ADMISSION HISTORY AND PHYSICAL This will be for outpatient surgery on 02/08/2022 for left shoulder arthroscopy with biceps tenotomy. HISTORY OF PRESENT ILLNESS: The patient is a 51-year-old right hand dominant female with complaints of left shoulder pain. She reports popping and catching in her shoulder. She reports this has been ongoing and progressive over the last two months. She denies any significant trauma. She has had some neck problems in the past, but denies current paresthesias. She has tried physical therapy for her shoulder, but reports the shoulder pain worsened and she reports no numbness in her hand or radiation of her shoulder pain. An MRI revealed a SLAP tear as well as posterior labral tear. In addition, she had undergone an MRI of her neck, which revealed evidence of stenosis. The patient understands that an arthroscopy of her shoulder would not cure any symptoms stemming from her cervical spine. REVIEW OF SYSTEMS: No chest pain, no shortness of breath, no dysuria. PAST MEDICAL HISTORY: Hypertension, sleep apnea, diabetes, depression, hyperlipidemia. PAST SURGICAL HISTORY: Lipoma removal, tonsillectomy, cholecystectomy, , left knee arthroscopy, left Achilles tendon repair, hysterectomy. FAMILY HISTORY: Significant for hyperlipidemia. PRIMARY CARE PROVIDER: Dr. Hess. MEDICATIONS: Promethazine, pantoprazole, metoprolol, estradiol, Basaglar, albuterol, Flovent. ALLERGIES: DOXYCYCLINE, PENICILLIN, SULFA, ZOFRAN and FENTANYL. SOCIAL HISTORY: The patient is a former smoker. She drinks alcohol socially. PHYSICAL EXAMINATION: GENERAL: The patient is well-developed, well-nourished, in no acute distress. HEENT: Normocephalic, atraumatic. Pupils are equal, round and reactive to light. Oropharynx is clear. NECK: Supple, with no lymphadenopathy. LUNGS: Clear to auscultation bilaterally. HEART: Regular rate and rhythm. ABDOMEN: Soft, nontender, nondistended. EXTREMITIES: The patient has negative Spurling's maneuver with her cervical spine. She has positive [place]'s on the left shoulder, which reproduces her symptoms. She has pain with apprehension relieved with relocation. She has symmetric forward elevation, external and internal rotation with positive Neer's and positive Hawkin sign. Sensation is intact to her left upper extremity. IMPRESSION: Left shoulder SLAP tear. PLAN: Left shoulder arthroscopy with biceps tenotomy, labral debridement. The risks, benefits, options, ramifications and recovery were discussed at length with the patient. She understands and wishes to proceed. Job ID: [id number] DocumentID: [id number] Dictated Date: 01/27/2022 10:14:03 Oil Refiner Date: 01/27/2022 11:02:23 Dictated By: YAA RAINEY MD
[2022-02-08] VITALS (12 sets, daily range): BP systolic 89–123; BP diastolic 44–79
[~2022-02-08] VITALS: Ht 150 cm; Wt 91.0 kg
[~2022-02-08 06:46] MED LIST changes: +CYCL10TA25 PO; +INSU100I34 SQ
[2022-02-08] MEDS ORDERED: CLINDAMYCIN 600 MG/50 ML IVPB 50 ML IV ONE (07:00)
[2022-02-08] MEDS ORDERED: LACTATED RINGERS 1,000 ML IV PRN (07:00)
[2022-02-08] MEDS ORDERED: MIDAZOLAM 2 MG/2 ML (VERSED) VIAL ONE (07:03)
[2022-02-08] MEDS ORDERED: LIDOCAINE PF 2% 5 ML (XYLOCAINE) VIAL ONE (07:03)
[2022-02-08] MEDS ORDERED: fentaNYL INJ 100 MCG/2 ML AMP ONE (07:03)
[2022-02-08] MEDS ORDERED: SEVOFLURANE (ULTANE) 15 ML INHAL SOLN ONE ×2 (07:03→08:54)
[2022-02-08] MEDS ORDERED: ONDANSETRON 4 MG/2 ML (SDV) Z0FRAN ONE (07:03)
[2022-02-08] MEDS ORDERED: proPOfol 200 MG/20 ML (DIPRIVAN) VIAL IV ONE (07:03)
[2022-02-08] MEDS ORDERED: oxyCODONE/APAP 5/325MG (PERCOCET 5) TABLET PO PRN (07:30)
--- NOTE | 2022-02-08 07:37 | Progress Note-Pre Operative ---
Pre-Operative Progress Note Date of Available H&P: Feb 08, 2022 Date H&P Reviewed: Feb 08, 2022 Time H&P Reviewed: 07:11 Changes from last HP none Pre-Operative Diagnosis: left SLAP tear YAA RAINEY MD Feb 08, 2022 07:37
--- NOTE | 2022-02-08 07:38 | Progress Note-Post Operative ---
Post-Operative Progess Note Surgeon (s)/Avionics Integration Engineer (s) Surgeon YAA RAINEY MD Avionics Integration Engineer: Sincere Morfin Pre-Operative Diagnosis left SLAP tear Post-Operative Diagnosis left SLAP tear and labral tear Procedure & Operative Findings Date of Procedure 02/08/22 Procedure Performed/Findings left shoulder arthroscopic biceps tenotomy and labral debridement Anesthesia Type GETA Estimated Blood Loss Estimated blood loss (mL): minimal Specimens/Packing Specimens Removed none Packing: none YAA RAINEY MD Feb 08, 2022 07:38
[2022-02-08] MEDS ORDERED: BUPIVACAINE 0.25% 30 ML (SENSORCAINE) VIAL ONE (08:05)
[2022-02-08] MEDS ORDERED: EPINEPHrine INJECTION 1 MG/ML AMP ONE (08:45)
[2022-02-08] MEDS ORDERED: PHENYLEPHRINE 100 MCG/ML 10 ML (ANESTHESIA) SYR ONE (08:50)
[2022-02-08] MEDS ORDERED: NEOSTIGMINE (BLOXIVERZ ) 1 MG/1ML 10 ML VIAL ONE (09:03)
[2022-02-08] MEDS ORDERED: GLYCOPYRROLATE 0.2 MG/ML (ROBINUL) 2 ML VIAL ONE (09:03)
[2022-02-08] MEDS ORDERED: SUGAMMADEX 500 MG/5 ML VIAL (BRIDION) IV ONE (09:09)
--- NOTE | 2022-02-08 09:23 | Anesthesia-General Post-Op ---
General Patient Condition Mental Status/LOC: Same as Preop Cardiovascular: Satisfactory Nausea/Vomiting: Absent Respiratory: Satisfactory Pain: Controlled Complications: Absent Post Op Complications Complications None Follow Up Care/Instructions Patient Instructions None needed. Anesthesia/Patient Condition Patient Condition Patient is doing well, no complaints, stable vital signs, no apparent adverse anesthesia problems. No complications reported per nursing. ISHAAN ESPINOSA CRNA Feb 08, 2022 09:23
[2022-02-08] MEDS ORDERED: MEPERIDINE (DEMEROL) INJ 50 MG/ML IVP ONE (09:30)
[2022-02-08] MEDS ORDERED: fentaNYL INJ 100 MCG/2 ML AMP IVP ONE (09:30)
[2022-02-08] MEDS ORDERED: PROMETHAZINE INJ 25 MG/ML (PHENERGAN) AMP IVP ONE (09:30)
--- NOTE | 2022-02-08 13:42 | OPERATIVE REPORT ---
DATE OF SERVICE: 02/08/2022 PREOPERATIVE DIAGNOSES: 1. Left shoulder SLAP tear. 2. Left shoulder labral tear. POSTOPERATIVE DIAGNOSES: 1. Left shoulder SLAP tear. 2. Left shoulder labral tear. PROCEDURES: 1. Left shoulder arthroscopic biceps tenotomy. 2. Left shoulder arthroscopic labral debridement. SURGEON: Jesus Rainey MD [employer]GING [employer]S [employer]CRAFT MECHANIC: Sincere Mc, who assisted throughout the procedure and closed the incisions. ANESTHESIA: General endotracheal by Sincere Bartlett CRNA. ESTIMATED BLOOD LOSS: Minimal. DRAINS: None. COMPLICATIONS: None. POSTOPERATIVE PLAN: Sling wear for comfort with progressive activities as symptoms allow. The patient was transferred to the recovery room awake and in stable condition. STATEMENT OF MEDICAL NECESSITY: The patient is a 51-year-old right hand dominant female with complaints of left shoulder pain, catching, locking. She had crepitus with glenohumeral rotation with a positive Catron's maneuver. She has undergone treatment with physical therapy and rest without relief. An MR arthrogram revealed evidence of a SLAP tear. In addition, the patient had known stenosis of her cervical spine. She understood that she could have continued cervical spine symptoms postoperatively, but due to functional impairment of the shoulder, the patient elected to proceed with surgical intervention. Examination under anesthesia revealed range of motion of 170 degrees, external rotation of 85 degrees, internal rotation of 70 degrees. Arthroscopic findings demonstrated type 2 SLAP tear with an anterior flap tear of the labrum from the 10 to 2 o'clock positions. The remainder of labrum was intact. The rotator cuff was intact throughout. The glenoid and humeral head demonstrated no gross chondral abnormalities. DESCRIPTION OF PROCEDURE: After risks and benefits of the procedure were discussed and questions were answered, informed consent was signed and placed on chart, the operative site was confirmed in the preoperative holding area initialed by the surgeon. The patient was then transferred to the operating room. After adequate levels of general endotracheal anesthetic were obtained, a timeout was called, confirming the operative site. Examination under anesthesia was performed with above findings noted. Left shoulder and upper extremity were prepped and draped in the usual sterile fashion. Shoulder joint was injected with 20 mL of fluid and a standard posterior portal was placed. A diagnostic arthroscopy was carried out with above findings noted. An anterior portal was created in the interval between biceps, subscapularis and glenoid. The biceps anchor was released, the stump was debrided with a shaver as was the anterior labral flap. The scope and instruments were removed. The port sites were closed with 4-0 nylon in simple interrupted fashion. Shoulder was injected with Duramorph. Port sites were infiltrated with plain Marcaine. A soft dressing and sling were applied. The patient was transferred to the recovery room awake and in stable condition. Job ID: [id number] DocumentID: [id number] Dictated Date: 02/08/2022 09:14:38 Fish And Wildlife Biologist Date: 02/08/2022 13:41:14 Dictated By: JESUS RAINEY MD
== END 2022-02-08 11:20 | disposition home or self-care (01) ==
LOC: SDC 06:46
PROVIDERS: ATTEND Orthopaedic Surgery
DX: S43.432A Superior glenoid labrum lesion of left shoulder, initial encounter (principal); R51.9 Headache, unspecified; E66.9 Obesity, unspecified; Z68.41 Body mass index [BMI] 40.0-44.9, adult; Z87.891 Personal history of nicotine dependence
CPT/HCPCS: 82947; 87081

== ENCOUNTER → 2022-04-27 | Outpatient (CLI) | payer BC ==
[~2022-04-27] MED LIST changes: -MONT5TAB24 PO; +MONT5TAB25 PO
--- NOTE | 2022-04-27 16:51 | Diagnostic Imaging Report ---
MRI THORACIC SPINE W/O CON INDICATION: Chronic back pain COMPARISON: None available TECHNIQUE: Multiplanar, multisequence imaging of the thoracic spine without contrast. FINDINGS: Thoracic spine is normal in alignment. There is no fracture, focal osseous lesion or marrow replacing process. The thoracic cord is normal in size and signal. There are no intramedullary T2 hyperintensities that would suggest demyelination or myelitis. No extradural fluid collection. Visualized aspects of the brachial plexus are normal. No disc bulges or herniations within the lumbar spine. At T10-T11, there is thickening of the ligamentum flavum causing mild spinal canal stenosis but no mass effect on the distal thoracic cord. IMPRESSION: 1. No compression fracture. 2. Normal thoracic cord without impingement. 3. Mild spinal canal stenosis at T10-T11 due to focal ligamentum flavum thickening. Dictated by: Dictated on workstation # [id number]
== END ==
LOC: RAD 14:45
PROVIDERS: ATTEND Orthopaedic Surgery
DX: M48.04 Spinal stenosis, thoracic region (principal)
CPT/HCPCS: 72146

== ENCOUNTER → 2022-12-21 | Outpatient (CLI) | payer BC ==
--- NOTE | 2022-12-21 15:22 | Diagnostic Imaging Report ---
EXAMINATION: CT chest without contrast. TECHNIQUE: Multiple contiguous axial images were obtained through the chest without the use of intravenous contrast. All CT scans use one or more of the following dose optimizing techniques: Automated exposure control, MA and/or KvP adjustment based on patient size and exam type or iterative reconstruction. HISTORY: Lung nodule. COMPARISON: Abdomen and pelvis CT dated 11/11/2021. FINDINGS: There is no edema or pneumonia. No pleural effusion. No pneumothorax. There is an unchanged 0.9 cm lingular nodule. Calcified granuloma is present in the right middle lobe. There is a 6 mm right upper lobe nodule. There is mosaic perfusion in keeping with small vessels or small airways disease. There is no axillary or supraclavicular lymphadenopathy. There is no mediastinal lymphadenopathy. Heart size is normal. There are mild coronary artery calcifications. No pericardial effusion. Aorta is normal in caliber. Limited views of the upper abdomen show steatosis of the liver. There are no suspicious osseous lesions. IMPRESSION: 1. Unchanged lingular nodule. A 6 mm right upper lobe nodule was not included in the [id number] on the prior exam. According to the Fleischner Society guidelines: In a low risk patient, no routine follow up is recommended. In a high risk patient, consider optional CT at 12 months. 2. Steatotic liver. Dictated by: Dictated on workstation # [id number]
== END ==
LOC: RAD 14:15
PROVIDERS: ATTEND Nurse Practitioner Family
DX: R91.1 Solitary pulmonary nodule (principal); K76.0 Fatty (change of) liver, not elsewhere classified
CPT/HCPCS: 71250